=== PATIENT | male | born 1945 | race Caucasian/White ===

== ENCOUNTER → 2020-05-09 09:46 | Outpatient (BNVA) | payer OTHER, SELFPAY | PROVIDERS: PCP Internal Medicine; Referring Provider Internal Medicine; Visit Provider Nurse Practitioner | DX: Z01.818 Encounter for other preprocedural examination (principal); D64.9 Anemia, unspecified | CPT/HCPCS: 99203 ==

== ENCOUNTER 2020-06-24 11:35 | Day surgery (SDC) | payer OTHER, SELFPAY ==
[2020-06-18 21:19] VITALS: BMI 29.2
--- NOTE | 2020-06-21 08:55 | HO.ANESPROP2 ---
Documented by User: Dee Dee Ro 06/21/20 08:57 HPI - Anesthesia Eval Consult details Narrative: 75yo M for Upper Endoscopy and Colonoscopy [facility] Past Medical History Medical History (Updated 06/24/20 @ 12:03 by Lisa Brown) BPH (benign prostatic hyperplasia) Diabetes Erectile dysfunction Hypercholesteremia Hypertension Family History Family History Father Diabetes Mother Diabetes Surgical History Surgical History History of bilateral knee replacement History of prostate surgery Hx of colonoscopy (~2009) Social History Social History Alcohol intake: current Alcohol intake frequency: does not drink Smoking Status: Never smoker Use of substances other than those prescribed or required for medical reasons: No Advance Directives: No Advance Directives Information Provided: No Advance Directives on File: No Meds Allergies Allergy/AdvReac Type Severity Reaction Status Date / Time No Known Allergies Allergy Verified 05/09/20 09:49 [No Known Allergies*] Home Medications Medication Instructions Recorded Confirmed Type amlodipine 2.5 mg tablet 2.5 mg PO DAILY 05/08/20 06/18/20 History aspirin 81 mg tablet,delayed 81 mg PO DAILY 05/08/20 06/18/20 History release atorvastatin 10 mg tablet 10 mg PO DAILY 05/08/20 06/18/20 History glipizide 5 mg tablet 2.5 mg PO DAILY 05/08/20 06/18/20 History irbesartan 150 mg tablet 150 mg PO DAILY 05/08/20 06/18/20 History metformin 500 mg tablet 500 mg PO BID 05/08/20 06/18/20 History tamsulosin 0.4 mg capsule 0.4 mg PO BEDTIME 05/08/20 05/08/20 History Exam Exam Date and Time: June 21, 2020 0855 Height,Weight and Vital Signs: Height 5 ft 4 in Weight 77.111 kg Assessment and Plan Assessment Anesthesia Assessment: Chart Reviewed Documented by User: Lisa Brown 06/24/20 12:04 [facility] Past Medical History Medical History (Updated 06/24/20 @ 12:03 by Lisa Brown) BPH (benign prostatic hyperplasia) Diabetes Erectile dysfunction Hypercholesteremia Hypertension Family History Family History Father Diabetes Mother Diabetes Surgical History Surgical History History of bilateral knee replacement History of prostate surgery Hx of colonoscopy (~2009) Social History Social History Alcohol intake: current Alcohol intake frequency: does not drink Smoking Status: Never smoker Use of substances other than those prescribed or required for medical reasons: No Advance Directives: No Advance Directives Information Provided: No Advance Directives on File: No Meds Allergies Allergy/AdvReac Type Severity Reaction Status Date / Time No Known Allergies Allergy Verified 05/09/20 09:49 [No Known Allergies*] Home Medications Medication Instructions Recorded Confirmed Type amlodipine 2.5 mg tablet 2.5 mg PO DAILY 05/08/20 06/18/20 History aspirin 81 mg tablet,delayed 81 mg PO DAILY 05/08/20 06/18/20 History release atorvastatin 10 mg tablet 10 mg PO DAILY 05/08/20 06/18/20 History glipizide 5 mg tablet 2.5 mg PO DAILY 05/08/20 06/18/20 History irbesartan 150 mg tablet 150 mg PO DAILY 05/08/20 06/18/20 History metformin 500 mg tablet 500 mg PO BID 05/08/20 06/18/20 History tamsulosin 0.4 mg capsule 0.4 mg PO BEDTIME 05/08/20 05/08/20 History Exam Height,Weight and Vital Signs: Vital Signs Temp Pulse Resp BP Pulse Ox 06/24/20 11:41 98.4 F 75 18 175/67 H 97 Lab Results 06/24/20 Range/Units 11:41 POC Glucose 98 (60-115) mg/dL Airway Mallampati Class: III TM Dist: >3cm Neck ROM: Full Heart: RRR Lungs: CTAB Assessment and Plan Assessment Anesthesia Assessment: Anesthesia Plan Discussed and Chart Reviewed Final Anesthetic Review NPO: Yes ASA Class: II Final Preanesthetic Review: No Changes in Pt Med Stat, Meds/Allgs Chart Reviewed and Consent Obtained/Reviewed Patient Risk: Low Procedure Risk: Low Anesthetic Plan Anesthetic Plan: MAC: Disposition: Standard PACU
[2020-06-24 11:41] VITALS: BP 175/67; PULSE 75; RESP 18; TEMP 36.9; O2SAT 97
[2020-06-24 11:49] LABS: Glucose, Whole Blood 98 mg/dL (60-115)
--- NOTE | 2020-06-24 12:04 | P.HPSUR_ITS ---
Pre-Procedural Eval Section A The patient is an INPATIENT: No The History & Physical has been completed within 30 days and I have reviewed it.: No Section B Chief Complaint: screening,anemia Relevant Family History (Specify if Yes): No Present Medications: see Short Stay Collaborative assessment Medical History: Significant History (NIDDM High cholesterol Hypertension History of hyponatremia Anemia BPH Erectile dysfunction * ) History of Previous Operations: Relevant previous surgery/procedure and date(s) (SURGICAL HISTORY and Prostate surgery Bilateral total knee replacements) Allergies: Allergies Allergy/AdvReac Type Severity Reaction Status Date / Time No Known Allergies Allergy Verified 05/09/20 09:49 [No Known Allergies*] Review of Systems Sugical H&P ROS: Negative: Constitution, Cardiovascular, Respiratory and G astrointestinal Exam Surgical H&P Exam: Normal: Heart, Normal: Lungs, Normal: Extremities and Normal: Abdomen Plan Diagnosis/Plan: Unchanged Patient has been examined and remains a candidate for the planned procedure
--- NOTE | 2020-06-24 12:04 | W.PM.OPN ---
Operative Note Operative Note Date of Service: 06/24/20 Narrative: Pre-op diagnosis: Iron def anemia Post-op diagnosis: other (Gastritis, diverticulosis, internal hemorrhoids) Procedure: FLEXIBLE TRANSORAL UPPER GASTROINTESTINAL ENDOSCOPY WITH BIOPSIES AND COLONOSCOPY TILL CECUM UPPER ENDOSCOPY Consent: Indications for the procedure and potential complications of bleeding, perforation, reaction to medications and missed diagnosis were discussed with the patient and informed consent was obtained. Instrument: Olympus GIF H 190 mid size upper endoscope Monitoring: Vital signs and clinical assessment, continuous EKG monitoring, Pulse oximetry, Carbon Dioxide monitoring and blood pressure monitoring were done throughout the procedure. Procedure: The patient was placed in the left lateral decubitis position and pre-procedure medications were administered and a bite block was placed. The endoscope was inserted into the mouth and advanced under direct vision to the third part of duodenum. A careful inspection was made as the upper endoscope was withdrawn including a retroflexed examination of the proximal stomach; Findings and interventions are described below. Findings: Larynx: Normal Esophagus: Mildly tortuous esophagus with increased tertiary contractions without stricture or ring. GE junction at 40 cms. No esophagitis or Lazaro's. Stomach: Moderate diffuse gastric erythema with submucosal hemorrhages. Biopsies were obtained from the gastric body and antrum. Decreased fundal folds and grade 3 flap valve on retroflexed examination of the cardia. Duodenum: Normal bulb and descending duodenum. Biopsies were obtained from 3rd part of duodenum to check for celiac sprue. Intervention: Biopsies as noted above COLONOSCOPY PROCEDURE NOTE Consent: Indications for the procedure and potential complications of bleeding, perforation, reaction to medications and missed diagnosis were discussed with the patient and informed consent was obtained. Instrument: Olympus PCF H 190 L variable stiffness pediatric colonoscope Monitoring: Vital signs and clinical assessment, intermittent blood pressure monitoring, continuous EKG monitoring, Pulse oximetry and Carbon Dioxide monitoring were done throughout the procedure. Colon withdrawl time was 19 minutes. Procedure: The patient was placed in the left lateral decubitis position and pre-procedure medications were administered. After a digital rectal examination of the ano-rectum, the video colonoscope was inserted into the rectum and advanced through the colon to the cecum. The colonoscope was slowly withdrawn in a retrograde panoramic fashion and the colon mucosa was carefully examined including a retroflexed view of the rectum. Findings and interventions are described below. Procedure Difficulty: Without difficulty Findings: Terminal Ileum: Distal 10 cms was examined and appeared normal Cecum: Normal Ascending Colon: Scattered moderate diverticulosis Transverse Colon: Scattered moderate diverticulosis Descending Colon: Scattered moderate diverticulosis Sigmoid Colon: Moderate diverticulosis Rectum: Normal Ano-rectum: Moderate internal hemorrhoids Colon preparation: Excellent Impression and Post Procedure Diagnosis: Endoscopy Findings: STOMACH: Moderate diffuse gastric erythema with submucosal hemorrhages. Biopsies were obtained from the gastric body and antrum. Decreased fundal folds and grade 3 flap valve on retroflexed examination of the cardia. DUODENUM: Normal - biopsied to check for celiac sprue. Colonoscopy Findings: No polyps were detected Moderate diverticulosis seen in the entire colon Moderate hemorrhoids on retroflexed exam. Enlarged scrotum noted during rectal examination - ? due to Hydrocele. Plan: Await pathology results Patient has an appointment on 07/08/20 in the [facility] with Ileana Echeverria NP . Repeat Colonoscopy in 10 years if patient remains in stable health. 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 Small bowel, B. Gastric antrum, C. Gastric body) Condition: stable Disposition: PACU
[2020-06-24] MEDS: Lactated Ringers 1,000 ML 100 ML IVCONT (12:05)
[2020-06-24 13:06] VITALS: BP 97/44; PULSE 100; RESP 18; TEMP 36.4; O2SAT 99
[2020-06-24 13:21] VITALS: BP 115/58; PULSE 95; RESP 23; O2SAT 100
[2020-06-24 13:36] VITALS: BP 129/74; PULSE 76; RESP 16; TEMP 36.4; O2SAT 98
== END 2020-06-24 14:27 | disposition home or self-care (01) ==
PROVIDERS: PCP Internal Medicine; Visit Provider Internal Medicine Gastroenterology
PROC: (CPT 43239; principal; 2020-06-24 11:40)
DX: Z12.11 Encounter for screening for malignant neoplasm of colon (principal); K57.30 Diverticulosis of large intestine without perforation or abscess without bleeding; K64.8 Other hemorrhoids; K29.70 Gastritis, unspecified, without bleeding; B96.81 Helicobacter pylori [H. pylori] as the cause of diseases classified elsewhere; D50.9 Iron deficiency anemia, unspecified; E11.9 Type 2 diabetes mellitus without complications; Z79.84 Long term (current) use of oral hypoglycemic drugs
CPT/HCPCS: 43239; G0121; 82947; 88305; 88342

== ENCOUNTER 2020-07-01 07:36 | Day surgery (SDC) | payer OTHER, SELFPAY ==
--- NOTE | 2020-06-24 14:08 | HO.POSTANES ---
Post Anesthesia Evaluation Post Anesthesia Evaluation Anesthesia: Monitored Mental Status: Awake Pain Control: Satisfactory Nausea/Vomiting: None Hydration: Adequate Anesthesia-Related Issues: No Anes. Related Issues
[2020-06-25 12:10] VITALS: BMI 29.1
--- NOTE | 2020-06-27 08:08 | MHC.SHP ---
Pre-Procedural Eval Section A The patient is an INPATIENT: No The History & Physical has been completed within 30 days and I have reviewed it.: Yes Section B Chief Complaint: Cataracts Left Eye Allergies: Allergies Allergy/AdvReac Type Severity Reaction Status Date / Time No Known Allergies Allergy Verified 06/24/20 15:54 [No Known Allergies*] Plan Diagnosis/Plan: Unchanged Patient has been examined and remains a candidate for the planned procedure
--- NOTE | 2020-06-28 13:30 | HO.ANESPROP2 ---
Documented by User: Dee Dee Ro 06/28/20 13:32 HPI - Anesthesia Eval Consult details Narrative: 75yo M for Cataract Extraction PCP cleared No previous cataract PMFSH Past Medical History Medical History BPH (benign prostatic hyperplasia) Cataract Diabetes Erectile dysfunction Hypercholesteremia Hypertension Family History Family History Father Diabetes Mother Diabetes Surgical History Surgical History History of bilateral knee replacement History of prostate surgery Hx of colonoscopy Social History Social History Are you a primary primary care pediatrician to a significant other at home: No Do you presently have visiting nurse or other home services: No Alcohol intake: current Alcohol intake frequency: does not drink Smoking Status: Never smoker Use of substances other than those prescribed or required for medical reasons: No Have you been hit, kicked, punched, or otherwise hurt by someone within the past year? If so, by whom?: No Advance Directives: No Advance Directives Information Provided: No Advance Directives on File: No Meds Allergies Allergy/AdvReac Type Severity Reaction Status Date / Time No Known Allergies Allergy Verified 06/24/20 15:54 [No Known Allergies*] Home Medications Medication Instructions Recorded Confirmed Type amlodipine 2.5 mg tablet 2.5 mg PO DAILY 05/08/20 07/01/20 History aspirin 81 mg tablet,delayed 81 mg PO DAILY 05/08/20 06/24/20 History release atorvastatin 10 mg tablet 10 mg PO DAILY 05/08/20 07/01/20 History glipizide 5 mg tablet 2.5 mg PO DAILY 05/08/20 06/24/20 History irbesartan 150 mg tablet 150 mg PO DAILY 05/08/20 06/24/20 History metformin 500 mg tablet 500 mg PO BID 05/08/20 06/24/20 History tamsulosin 0.4 mg capsule 0.4 mg PO BEDTIME 05/08/20 06/24/20 History Exam Exam Date and Time: June 28, 2020 1330 Height,Weight and Vital Signs: Height 5 ft 4 in Weight 77 kg Narrative Narrative: EKG 06/26/20: SR, RBBB Assessment and Plan Assessment Anesthesia Assessment: Chart Reviewed Documented by User: Faviola Sales 07/01/20 08:20 PMFSH Past Medical History Medical History BPH (benign prostatic hyperplasia) Cataract Diabetes Erectile dysfunction Hypercholesteremia Hypertension Family History Family History Father Diabetes Mother Diabetes Surgical History Surgical History History of bilateral knee replacement History of prostate surgery Hx of colonoscopy Social History Social History Are you a primary primary care pediatrician to a significant other at home: No Do you presently have visiting nurse or other home services: No Alcohol intake: current Alcohol intake frequency: does not drink Smoking Status: Never smoker Use of substances other than those prescribed or required for medical reasons: No Have you been hit, kicked, punched, or otherwise hurt by someone within the past year? If so, by whom?: No Advance Directives: No Advance Directives Information Provided: No Advance Directives on File: No Meds Allergies Allergy/AdvReac Type Severity Reaction Status Date / Time No Known Allergies Allergy Verified 06/24/20 15:54 [No Known Allergies*] Home Medications Medication Instructions Recorded Confirmed Type amlodipine 2.5 mg tablet 2.5 mg PO DAILY 05/08/20 07/01/20 History aspirin 81 mg tablet,delayed 81 mg PO DAILY 05/08/20 06/24/20 History release atorvastatin 10 mg tablet 10 mg PO DAILY 05/08/20 07/01/20 History glipizide 5 mg tablet 2.5 mg PO DAILY 05/08/20 06/24/20 History irbesartan 150 mg tablet 150 mg PO DAILY 05/08/20 06/24/20 History metformin 500 mg tablet 500 mg PO BID 05/08/20 06/24/20 History tamsulosin 0.4 mg capsule 0.4 mg PO BEDTIME 05/08/20 06/24/20 History Exam Airway Mallampati Class: II TM Dist: >3cm Neck ROM: Full Loose/Missing/Broken Teeth: No Heart: RRR Lungs: CTA Assessment and Plan Assessment Anesthesia Assessment: Anesthesia Plan Discussed and Chart Reviewed Final Anesthetic Review NPO: Yes ASA Class: III Final Preanesthetic Review: Meds/Allgs Chart Reviewed, Consent Obtained/Reviewed and Anes Risks/Benef Reviewed Patient Risk: Intermediate Procedure Risk: Low Anesthetic Plan Anesthetic Plan: MAC: Disposition: Standard PACU
[2020-07-01 07:49] VITALS: BP 155/68; PULSE 74; RESP 16; TEMP 37.2; O2SAT 100
[2020-07-01 07:51] LABS: Glucose, Whole Blood 151 mg/dL (60-115)
[2020-07-01] MEDS: Tetracaine HCl/PF 0.5% Oph Sol 4 ML DROPS 1 DROP EYE-LEFT (08:06)
[2020-07-01] MEDS: Tropicamide 1 % Ophth Sol 3 ML BTL 1 DROP EYE-LEFT ×3 (08:08→08:16)
[2020-07-01] MEDS: Phenylephrine HCL 2.5% Oph SoL 2 ML BOTTLE 1 DROP EYE-LEFT ×3 (08:10→08:18)
[2020-07-01] MEDS: Lactated Ringers 500 ML 50 ML IV (08:11)
[2020-07-01 09:10] VITALS: BP 122/69; PULSE 64; RESP 16; TEMP 36.7; O2SAT 99
--- NOTE | 2020-07-01 09:10 | HO.PNOPHT ---
Ophthalmology Procedure Procedure Date of Service: 07/01/20 Ophthalmology Viscoelastic: Healon Duet Dual Pack Pro Ophthalmology Lenses: TECNIS [id number] (20.5) Procedure Notes: PREOPERATIVE DIAGNOSIS: Decreased visual acuity left eye secondary to cataract POSTOPERATIVE DIAGNOSIS: Same PROCEDURE: Left cataract extraction with intraocular lens insertion SURGEON: Tylor Morales M.D. ANESTHESIA: Topical/MAC ESTIMATED BLOOD LOSS: None COMPLICATIONS: None After obtaining informed consent, the patient was brought to the operation room suite and placed in the supine position. After adequate sedation per anesthesia, topical drops of Tetracaine were given to the left eye. The eye was then prepped and draped in the usual sterile fashion. The operating room microscope was then positioned over the operative eye and a lid speculum placed. A paracentesis was created. Viscoelastic was then instilled into the anterior chamber. A three plane incision was then created temporally, utilizing a 2.85 mm keratome. Capsulotomy forceps were then utilized to create a circular tear capsulotomy. Hydrodissection and hydrodelineation were carried out until adequate mobilization of the nucleus occurred. Phacoemulsification was then utilized to remove the dense central nucleus followed by removal of the cortical material utilizing the automated aspiration irrigation unit. Viscoat elastic was instilled into the posterior capsular bag followed by placement of a posterior chamber intraocular lens without difficulty. The residual Viscoat elastic was then removed utilizing the automated IA machine. The wound was check and found to be watertight. The patient tolerated the procedure well and the lid speculum was removed. Intracameral injection of Vigamox 0.1 mL followed by a subtenon injection of Kenalog-40 0.2 mL were administered. The patient will be seen in the a.m.
--- NOTE | 2020-07-01 09:14 | HO.POSTANES ---
Post Anesthesia Evaluation Post Anesthesia Evaluation Vital Signs: Vital Signs Temp Pulse Resp BP Pulse Ox 07/01/20 07:49 98.9 F 74 16 155/68 H 100 Mental Status: Awake Pain Control: Satisfactory Nausea/Vomiting: None Hydration: Adequate Anesthesia-Related Issues: No Anes. Related Issues
== END 2020-07-01 09:27 | disposition home or self-care (01) ==
PROVIDERS: PCP Internal Medicine; Visit Provider Ophthalmology
PROC: (CPT 66985; principal; 2020-07-01 08:50)
DX: H25.12 Age-related nuclear cataract, left eye (principal); H52.4 Presbyopia; H40.013 Open angle with borderline findings, low risk, bilateral; I10 Essential (primary) hypertension; E78.00 Pure hypercholesterolemia, unspecified; E11.9 Type 2 diabetes mellitus without complications; Z79.84 Long term (current) use of oral hypoglycemic drugs; Z79.82 Long term (current) use of aspirin; Z79.899 Other long term (current) drug therapy; Z96.653 Presence of artificial knee joint, bilateral
CPT/HCPCS: 66984; 82947; J2250; J3010; J3300; V2632

== ENCOUNTER → 2020-08-12 10:56 | Outpatient (BNVA) | payer OTHER, SELFPAY | PROVIDERS: PCP Internal Medicine; Visit Provider Urology | DX: N50.89 Other specified disorders of the male genital organs (principal) | CPT/HCPCS: 99202 ==

== ENCOUNTER 2020-09-18 13:39 | Outpatient (REF) | payer OTHER, SELFPAY ==
--- NOTE | ~2020-09-18 | US_ITS ---
EXAMINATION: US SCROTUM CLINICAL INFORMATION: Hydrocele. COMPARISON: None TECHNIQUE: A sonogram of the scrotum was performed assessing moralez-scale appearance and color Doppler flow. Spectral Doppler analysis of the arterial and venous flow were performed in the testes bilaterally. FINDINGS: RIGHT: Right testicle measures 4.2 x 2.3 x 2.3 cm, volume 13.7 mL. No focal testicular parenchymal lesions are visualized. Spectral Doppler analysis of the arterial and venous flow is normal in the right testis. Right epididymal head is normal in size. There are several epididymal head cysts. The largest cyst measures 0.6 x 0.5 x 0.7 cm. No right hydrocele or varicocele is seen. Right epididymal Doppler flow is normal. LEFT: Left testicle measures 3.9 x 2.4 x 4.0 cm, volume 19.9 mL. There is an anechoic cyst in the left epididymis measuring 0.4 x 0.4 x 0.5 cm. Spectral Doppler analysis of the arterial and venous flow is normal in the left testis. Left epididymis is not well visualized. However, small epididymal cysts are suspected. There is a large left hydrocele with echogenic debris within. No varicocele seen. Left epididymal Doppler flow is normal. US/US scrotum IMPRESSION: Large left hydrocele with a small left scrotal cyst. Suspect small left epididymal cysts. Right epididymal cysts.
== END 2020-09-18 13:40 | disposition home or self-care (01) ==
LOC: HO.US 13:39
PROVIDERS: PCP Internal Medicine; Visit Provider Urology
DX: N43.3 Hydrocele, unspecified (principal)
CPT/HCPCS: 76870

== ENCOUNTER → 2020-10-04 13:40 | Outpatient (BNVA) | payer OTHER, SELFPAY | PROVIDERS: PCP Internal Medicine; Visit Provider Urology | DX: Z13.89 Encounter for screening for other disorder (principal) | CPT/HCPCS: 99212 ==

== ENCOUNTER 2021-01-22 16:34 | Emergency (ER) | payer OTHER, SELFPAY ==
[2021-01-22 17:17] VITALS: BP 137/75; PULSE 96; RESP 16; TEMP 36.4; O2SAT 99; BMI 25.7
--- NOTE | 2021-01-22 18:14 | ED.GENADULT ---
HPI - General Adult General Chief complaint: Nausea/Vomiting/Diarrhea Stated complaint: diarhea Time Seen by Provider: 01/22/21 17:58 Source: patient Limitations: no limitations History of Present Illness HPI narrative: This is a 75-year-old male with a history of hypertension, diabetes, enlarged prostate status post prostate procedure, who complains of diarrhea for a few weeks. The patient had had a colonoscopy several weeks ago which showed some infection, and the patient was on antibiotics for 2 weeks. Subsequently, for the last 2 weeks he has had watery diarrhea that is worse after he eats or drinks. He denies any dizziness, fever, cold symptoms, cough, shortness of breath, abdominal pain. He notes he does urinary frequently. Denies any blood in the stool. He has an appointment to see his PCP in 2 days but felt like he could not wait. He also is requesting referral to a operational trainer. Related Data Home Medications Medication Instructions Recorded Confirmed amlodipine 2.5 mg tablet 2.5 mg PO DAILY 05/08/20 08/12/20 aspirin 81 mg tablet,delayed 81 mg PO DAILY 05/08/20 08/12/20 release atorvastatin 10 mg tablet 10 mg PO DAILY 05/08/20 08/12/20 glipizide 5 mg tablet 2.5 mg PO DAILY 05/08/20 08/12/20 irbesartan 150 mg tablet 150 mg PO DAILY 05/08/20 08/12/20 metformin 500 mg tablet 500 mg PO BID 05/08/20 08/12/20 tamsulosin 0.4 mg capsule 0.4 mg PO BEDTIME 05/08/20 08/12/20 aspirin 81 mg chewable tablet 1 tab PO DAILY 10/04/20 blood sugar diagnostic #10 ea 10/04/20 cholecalciferol (vitamin D3) 50 50 mcg PO DAILY 10/04/20 mcg (2,000 unit) capsule dapagliflozin 5 mg tablet 5 mg PO QAM 10/04/20 ferrous sulfate 325 mg (65 mg 325 mg PO QAM 10/04/20 iron) tablet lancets 33 gauge #100 ea 10/04/20 metformin 1,000 mg tablet 1,000 mg PO BID 10/04/20 multivitamin 1 tab PO BEDTIME 10/04/20 Previous Rx's Medication Instructions Recorded aly #1 ea 04/30/20 bismuth subsalicylate 262 mg 2 tab PO QID 14 Days #112 tab 07/01/20 chewable tablet metronidazole 500 mg tablet 500 mg PO TID 14 Days #42 tab 07/01/20 omeprazole 20 mg capsule,delayed 20 mg PO BID 14 Days #28 cap 07/01/20 release tetracycline 500 mg capsule 500 mg PO QID 14 Days #56 cap 07/01/20 tamsulosin 0.4 mg capsule 0.4 mg PO BEDTIME 30 Days #30 cap 11/11/20 sildenafil 100 mg tablet 100 mg PO DAILY PRN 30 Days #6 tab 01/14/21 Allergies Allergy/AdvReac Type Severity Reaction Status Date / Time No Known Allergies Allergy Verified 01/22/21 17:25 [No Known Allergies*] Review of Systems Review of Systems: Yes all other systems are reviewed and are negative Constitutional: Constitutional: Reports as per HPI and Denies fever(s) Eyes: Eyes: Reports as per HPI and Reports no additional eye complaints ENT: Reports system reviewed and no additional complaints, except as documented, Reports as per HPI, Denies nasal congestion, Denies nasal discharge and Denies sore throat Cardiovascular: Cardiovascular: Reports as per HPI, Denies chest pain and Denies dyspnea Respiratory: Respiratory: Reports as per HPI, Denies cough and Denies dyspnea Gastrointestinal: Gastrointestinal: Reports as per HPI, Denies abdominal pain, Reports diarrhea, Denies nausea and Denies vomiting Genitourinary: Genitourinary: Reports as per HPI, Denies hematuria, Denies dysuria and Denies urinary frequency Musculoskeletal: Musculoskeletal: Reports no additional musculoskeletal complaints and Denies numbness Integumentary/Breasts: Skin/Breast: Reports as per HPI and Denies rash Neurologic: Reports as per HPI, Denies focal weakness, Denies numbness and Denies Sensory deficit (Neuro) Psychiatric: Psychiatric: Reports no additional psychiatric complaints and Reports as per HPI Endocrine: Endocrine: Reports no additional endocrine complaints and Reports as per HPI Hematologic/Lymphatic: Hematologic/Lymphatic: Reports no additional hematologic/lymphatic complaints, Reports as per HPI and Reports other (No peripheral edema) [facility] Past Medical History Medical History BPH (benign prostatic hyperplasia) Cataract Diabetes Erectile dysfunction Hydrocele Hypercholesteremia Hypertension Surgical History History of bilateral knee replacement History of prostate surgery Hx of colonoscopy Family History Family History Father Diabetes Mother Diabetes Social History Social History Are you a primary client care consultant to a significant other at home: No Do you presently have visiting nurse or other home services: No Alcohol intake: current Alcohol intake frequency: does not drink Advance Directives: No Advance Directives Information Provided: No Physical Exam Vital Signs: Vital Signs: Last Vital Signs Temp 97.7 F 01/22/21 18:49 Pulse 94 01/22/21 21:54 Resp 16 01/22/21 21:54 BP 143/72 H 01/22/21 21:54 Pulse Ox 98 01/22/21 21:54 Body Mass Index 25.7 Const: Other: patient overall well appearing, stands easily and gets onto the gurney without apparent discomfort or difficulty General: cooperative, no acute distress and alert Orientation/consciousness: patient oriented x3 HENMT: Head: Yes normal to inspection Eyes: General: appearance normal, both eyes and all related structures Eyelids: Yes eyelids normal Conjunctivae: conjunctivae normal Pupils: Equal, round and reactive pupils present Neck: Neck: Yes normal visual inspection and Yes supple Chest: Chest palpation & inspection: normal inspection of the chest Resp: Effort & Inspection: normal respiratory effort Auscultation: clear to auscultation bilaterally Cardio: Rate: regular rate Rhythm: regular rhythm Heart sounds: S1 normal heart sound present, S2 normal heart sound present, no gallops, no murmurs and no rubs GI: Palpation (GI): Soft to palpation, nontender and Other GI palpation findings present (Non-distended) Auscultation: bowels sounds not normal ( Mildly hyperactive, not high-pitched) Skin: General skin exam: no rashes or lesions noted Neuro: General: patient oriented x3, no focal motor deficits and CN's II-XI intact bilaterally Cranial nerves: Yes Equal, round and reactive pupils present Cognition (Neuro): normal cognition Motor exam (neuro): 5/5 motor strength present throughout Sensory Exam: No Sensory deficit (Neuro) Extrem: General: Yes normal to inspection and Yes no pedal edema Psych: Appearance: grossly normal Affect: normal affect Medical Decision Making MDM Narrative Medical decision making narrative: Patient with diarrhea for several days, was on antibiotics fairly recently, C difficile is a concern. Is still simple was sent for C diff. Patient's white blood cell count is mildly elevated. BUN and creatinine electrolytes were essentially normal. The patient does have mild hyponatremia but has had this previously. Patient was well appearing, not all ill-appearing. Patient reported history of prostate surgery and urinary frequency, urinalysis was negative Lab Data Lab results reviewed: Yes I reviewed the patient's lab results. Result diagrams: 01/22/21 18:17 01/22/21 18:17 Labs: Lab Results 01/22/21 01/22/21 01/22/21 Range/Units 18:17 18:17 19:05 WBC 12.7 H (4.8-10.8) X10*3/uL RBC 4.43 L (4.60-5.80) X10*6/uL Hgb 12.8 L (14.0-18.0) g/dl Hct 36.9 L (42-52) % MCV 83.3 (80-98) fL MCH 28.9 (27.0-33.0) pg MCHC 34.7 (31.0-36.0) g/dl RDW 13.6 (11.0-16.0) % Plt Count 468 H (160-400) X10*3/uL MPV 8.4 L (9.4-12.4) fL Immature Gran % (Auto) 2.0 H (0.0-0.4) % Neut % (Auto) 73.8 H (45-73) % Lymph % (Auto) 14.5 L (20-40) % [place] % (Auto) 7.3 (2-11) % Eos % (Auto) 1.9 (0-4) % Baso % (Auto) 0.5 (0-2) % Lymph # (Auto) 1.8 (1.2-4.9) X10*3/uL [place] # (Auto) 0.9 (0.1-1.2) X10*3/uL Eos # (Auto) 0.2 (0.0-0.4) X10*3/uL Baso # (Auto) 0.1 (0.0-0.2) X10*3/uL Abs Immat Gran (auto) 0.25 H (0.00-0.03) X10*3/uL Absolute Neuts (auto) 9.4 H (2.0-8.3) X10*3/uL Absolute Nucleated RBC 0.000 (0.0-0.012) X10*3/uL Nucleated RBC % (auto) 0.0 (0.0-0.2) /100WBC Sodium 130 L (135-145) mmol/L Potassium 4.7 (3.3-5.1) mmol/L Chloride 95 L (96-108) mmol/L Carbon Dioxide 21 L (22-29) mmol/L Anion Gap 19 (12-20) BUN 15 (9-16) mg/dL Creatinine 0.80 (0.5-1.4) mg/dL Estim Creat Clear Calc 65.1 Estimated GFR > 60 Random Glucose 127 H (60-115) mg/dL Calcium 9.6 (8.4-10.2) mg/dL Total Bilirubin 0.7 (0.0-1.0) mg/dL AST 40 H (5-37) U/L ALT 35 (0-40) U/L Alkaline Phosphatase 92 (39-117) U/L Total Protein 7.7 (6.5-8.0) g/dL Albumin 4.0 (3.5-5.0) g/dL Urine Color YELLOW Urine Appearance CLEAR Urine pH 6.0 (5.0-8.0) Ur Specific [place] <= 1.005 (1.005-1.025) Urine Protein NEG (NEG-TRACE) MG/DL Urine Glucose (UA) >=1000 H (NEG) MG/DL Urine Ketones NEG (NEG) MG/DL Urine Blood 1+ H (NEG) Urine Nitrite NEG (NEG) Ur Leukocyte Esterase NEG (NEG) Urine RBC 1-4 (0) /HPF Urine WBC 1-4 (0-4) /HPF Ur Squamous Epith Cells TRACE /LPF Urine Bacteria NONE /LPF Urine Yeast TRACE /HPF C. difficile Tox B Gene (Negative) 01/22/21 01/22/21 Range/Units 19:49 22:00 WBC (4.8-10.8) X10*3/uL RBC (4.60-5.80) X10*6/uL Hgb (14.0-18.0) g/dl Hct (42-52) % MCV (80-98) fL MCH (27.0-33.0) pg MCHC (31.0-36.0) g/dl RDW (11.0-16.0) % Plt Count (160-400) X10*3/uL MPV (9.4-12.4) fL Immature Gran % (Auto) (0.0-0.4) % Neut % (Auto) (45-73) % Lymph % (Auto) (20-40) % [place] % (Auto) (2-11) % Eos % (Auto) (0-4) % Baso % (Auto) (0-2) % Lymph # (Auto) (1.2-4.9) X10*3/uL [place] # (Auto) (0.1-1.2) X10*3/uL Eos # (Auto) (0.0-0.4) X10*3/uL Baso # (Auto) (0.0-0.2) X10*3/uL Abs Immat Gran (auto) (0.00-0.03) X10*3/uL Absolute Neuts (auto) (2.0-8.3) X10*3/uL Absolute Nucleated RBC (0.0-0.012) X10*3/uL Nucleated RBC % (auto) (0.0-0.2) /100WBC Sodium (135-145) mmol/L Potassium (3.3-5.1) mmol/L Chloride (96-108) mmol/L Carbon Dioxide (22-29) mmol/L Anion Gap (12-20) BUN (9-16) mg/dL Creatinine (0.5-1.4) mg/dL Estim Creat Clear Calc Estimated GFR Random Glucose (60-115) mg/dL Calcium (8.4-10.2) mg/dL Total Bilirubin (0.0-1.0) mg/dL AST (5-37) U/L ALT (0-40) U/L Alkaline Phosphatase (39-117) U/L Total Protein (6.5-8.0) g/dL Albumin (3.5-5.0) g/dL Urine Color YELLOW Urine Appearance CLEAR Urine pH 5.5 (5.0-8.0) Ur Specific [place] <= 1.005 (1.005-1.025) Urine Protein NEG (NEG-TRACE) MG/DL Urine Glucose (UA) >=1000 H (NEG) MG/DL Urine Ketones NEG (NEG) MG/DL Urine Blood TRACE (NEG) Urine Nitrite NEG (NEG) Ur Leukocyte Esterase NEG (NEG) Urine RBC 1-4 (0) /HPF Urine WBC 1-4 (0-4) /HPF Ur Squamous Epith Cells 2+ /LPF Urine Bacteria NONE /LPF Urine Yeast 1+ /HPF C. difficile Tox B Gene NEGATIVE (Negative) Discharge Plan Discharge Clinical Impression: Diarrhea Patient Disposition: Home, Self-Care Instructions: Acute Diarrhea (ED) Additional Instructions: drink plenty of fluids, including fluids such as Gatorade, as you have been. Follow-up with primary care physician as scheduled in 2 days. We will not evaluate if your stool test is positive and may start you on antibiotics. Return for any new or worsened symptoms such as fever, increased abdominal pain, bloody stool Prescriptions: No Action (DME) walker Misc See Rx Instructions .ROUTE .MEDSUPPLY Qty: 1 RF: 0 omeprazole 20 mg capsule,delayed release(DR/EC) 20 mg PO BID 14 Days Qty: 28 RF: 0 bismuth subsalicylate 262 mg tablet,chewable 2 tab PO QID 14 Days Qty: 112 RF: 0 tetracycline 500 mg capsule 500 mg PO QID 14 Days Qty: 56 RF: 0 metronidazole 500 mg tablet 500 mg PO TID 14 Days Qty: 42 RF: 0 tamsulosin 0.4 mg capsule 0.4 mg PO BEDTIME 30 Days Qty: 30 RF: 3 sildenafil [Viagra] 100 mg tablet 100 mg PO DAILY PRN (Reason: erectile dysfunction) 30 Days Qty: 6 RF: 11 amlodipine 2.5 mg tablet 2.5 mg PO DAILY RF: 0 aspirin 81 mg tablet,delayed release (DR/EC) 81 mg PO DAILY RF: 0 atorvastatin 10 mg tablet 10 mg PO DAILY RF: 0 glipizide 5 mg tablet 2.5 mg PO DAILY RF: 0 irbesartan 150 mg tablet 150 mg PO DAILY RF: 0 metformin 500 mg tablet 500 mg PO BID RF: 0 tamsulosin [Flomax] 0.4 mg capsule 0.4 mg PO BEDTIME RF: 0 Interventions: ED Discharge Assessment Last Done: 01/22/21 22:03 Discharge Date/Time: 01/22/21 22:03
[2021-01-22] MEDS: 0.9 % Sodium Chloride 500 ML 999 ML IV (18:19)
[2021-01-22 18:25] LABS: MANUAL DIFF FLAG NO
[2021-01-22 18:27] LABS: Basophils Absolute Auto 0.1 X10*3/uL (0.0-0.2); Basophils Percent Auto 0.5 % (0-2); Eosinophils Absolute Auto 0.2 X10*3/uL (0.0-0.4); Eosinophils Percent Auto 1.9 % (0-4); Hematocrit 36.9 % (42-52); Hemoglobin 12.8 g/dl (14.0-18.0); Imm Gran Abs Auto 0.25 X10*3/uL (0.00-0.03); Lymphocytes Absolute Auto 1.8 X10*3/uL (1.2-4.9); Lymphocytes Percent Auto 14.5 % (20-40); Mean Corpuscular HGB Conc 34.7 g/dl (31.0-36.0); Mean Corpuscular Hemoglobin 28.9 pg (27.0-33.0); Mean Corpuscular Volume 83.3 fL (80-98); Mean Platelet Volume 8.4 fL (9.4-12.4); Monocytes Absolute Auto 0.9 X10*3/uL (0.1-1.2); Monocytes Percent Auto 7.3 % (2-11); Neutrophils Absolute Auto 9.4 X10*3/uL (2.0-8.3); Neutrophils Percent Auto 73.8 % (45-73); Platelet Count 468 X10*3/uL (160-400); Red Blood Count 4.43 X10*6/uL (4.60-5.80); Red Cell Distribution Width 13.6 % (11.0-16.0); White Blood Count 12.7 X10*3/uL (4.8-10.8)
[2021-01-22 18:49] VITALS: BP 136/72; PULSE 77; RESP 18; TEMP 36.5; O2SAT 98
[2021-01-22 18:54] LABS: Alanine Aminotransferase 35 U/L (0-40); Alkaline Phosphatase 92 U/L (39-117); Anion Gap 19 (12-20); Aspartate Amino Transferase 40 U/L (5-37); Bilirubin Total 0.7 mg/dL (0.0-1.0); Blood Urea Nitrogen 15 mg/dL (9-16); Calcium 9.6 mg/dL (8.4-10.2); Carbon Dioxide 21 mmol/L (22-29); Chloride 95 mmol/L (96-108); Creatinine Clr Calc Pharmacy 65.1; Estimated Glomerular Filt Rate > 60; Glucose Random 127 mg/dL (60-115); Potassium 4.7 mmol/L (3.3-5.1); Sodium 130 mmol/L (135-145); Total Protein 7.7 g/dL (6.5-8.0)
[2021-01-22 19:10] LABS: Glucose Urine UA >=1000 MG/DL (NEG); Leukocyte Esterase Urine NEG (NEG); Nitrite Urine NEG (NEG); Specific Gravity - Urine <= 1.005 (1.005-1.025); Urine Blood 1+ (NEG); Urine Ketones NEG (NEG); Urine Protein NEG (NEG-TRACE)
[2021-01-22 19:11] LABS: Appearance Urine CLEAR; Color Urine YELLOW
[2021-01-22 19:32] LABS: Squamous Epithelial Cell Urine TRACE /LPF
[2021-01-22 21:54] VITALS: BP 143/72; PULSE 94; RESP 16; O2SAT 98
[2021-01-22 21:54] LABS: CDiff Gene PCR NEGATIVE (Negative)
[2021-01-22 22:05] LABS: Glucose Urine UA >=1000 MG/DL (NEG); Leukocyte Esterase Urine NEG (NEG); Nitrite Urine NEG (NEG); PH 5.5 (5.0-8.0); Specific Gravity - Urine <= 1.005 (1.005-1.025); Urine Blood TRACE (NEG); Urine Ketones NEG (NEG); Urine Protein NEG (NEG-TRACE)
[2021-01-22 22:09] LABS: Appearance Urine CLEAR; Color Urine YELLOW
[2021-01-22 22:13] LABS: Squamous Epithelial Cell Urine 2+ /LPF
== END 2021-01-22 22:03 | disposition home or self-care (01) ==
PROVIDERS: Emergency Provider Emergency Medicine
DX: R19.7 Diarrhea, unspecified (principal); R35.0 Frequency of micturition; D72.829 Elevated white blood cell count, unspecified; E87.1 Hypo-osmolality and hyponatremia; I10 Essential (primary) hypertension; E11.9 Type 2 diabetes mellitus without complications; Z79.84 Long term (current) use of oral hypoglycemic drugs; Z79.899 Other long term (current) drug therapy
CPT/HCPCS: 36415; 80053; 81001; 85025; 87045; 87046; 87493; 96360; 99284

== ENCOUNTER 2021-08-14 10:05 | Outpatient (REF) | payer OTHER, SELFPAY ==
--- NOTE | ~2021-08-14 | XR_ITS ---
EXAMINATION: XR SHOULDER, RIGHT XR SHOULDER, LEFT XR KNEE, RIGHT XR KNEE, LEFT XR LUMBAR SPINE CLINICAL INDICATION: Pain. COMPARISON: Comparison to previous studies dated 12/21/2019, 09/25/2019, 06/12/2020, 11/30/2017. Increasing from previous exam as well. Degenerative changes in the posterior elements from the mid lumbar region down. TECHNIQUE: Right shoulder 5 views. Left shoulder 5 views. Lumbosacral spine 3 views. Right knee 4 views. Left knee 4 views. FINDINGS: The SI joints are grossly patent. LUMBOSACRAL SPINE: Moderate to marked degenerative changes which are ongoing from 2018. BILATERAL KNEES: Some increasing dystrophic calcification about prosthesis bilaterally but there is no acute finding here. No evidence of hardware failure. RIGHT SHOULDER: Ongoing degeneration. Significant. There is significant superior riding humeral head and acromial spurring with sclerotic changes on both sides of the joint here. AC joint degeneration once again noted. Moderate to marked. Also degeneration in the glenohumeral articulation. There is no acute fracture or dislocation. LEFT SHOULDER: Degenerative changes similar to the contralateral side. Humeral head rides high with acromial spurring and irregularity at the insertion of the superior rotator cuff. Moderate degenerative change in the AC joint. There is also glenohumeral articular degeneration. XR/XR shoulder LT min 2V IMPRESSION: Multiple Studies. Bilateral Shoulder: Significant degeneration in the shoulders with ongoing degeneration on the right compared to 2018 study. Right Knee: Once again show prosthesis in place. There is increasing dystrophic calcification. There is no acute finding. Left Knee: Again show 2 part prosthesis. Some increasing dystrophic calcification. There is no acute finding. No evidence of hardware failure. Lumbosacral Spine: Moderate to marked degenerative change. Loss of disc height at multiple levels with spurring in the endplates. There is no listhesis or compression injury. Mild scoliosis.
--- NOTE | ~2021-08-14 | XR_ITS ---
EXAMINATION: XR SHOULDER, RIGHT XR SHOULDER, LEFT XR KNEE, RIGHT XR KNEE, LEFT XR LUMBAR SPINE CLINICAL INDICATION: Pain. COMPARISON: Comparison to previous studies dated 12/21/2019, 09/25/2019, 06/12/2020, 11/30/2017. Increasing from previous exam as well. Degenerative changes in the posterior elements from the mid lumbar region down. TECHNIQUE: Right shoulder 5 views. Left shoulder 5 views. Lumbosacral spine 3 views. Right knee 4 views. Left knee 4 views. FINDINGS: The SI joints are grossly patent. LUMBOSACRAL SPINE: Moderate to marked degenerative changes which are ongoing from 2018. BILATERAL KNEES: Some increasing dystrophic calcification about prosthesis bilaterally but there is no acute finding here. No evidence of hardware failure. RIGHT SHOULDER: Ongoing degeneration. Significant. There is significant superior riding humeral head and acromial spurring with sclerotic changes on both sides of the joint here. AC joint degeneration once again noted. Moderate to marked. Also degeneration in the glenohumeral articulation. There is no acute fracture or dislocation. LEFT SHOULDER: Degenerative changes similar to the contralateral side. Humeral head rides high with acromial spurring and irregularity at the insertion of the superior rotator cuff. Moderate degenerative change in the AC joint. There is also glenohumeral articular degeneration. XR/XR knee LT 4V IMPRESSION: Multiple Studies. Bilateral Shoulder: Significant degeneration in the shoulders with ongoing degeneration on the right compared to 2018 study. Right Knee: Once again show prosthesis in place. There is increasing dystrophic calcification. There is no acute finding. Left Knee: Again show 2 part prosthesis. Some increasing dystrophic calcification. There is no acute finding. No evidence of hardware failure. Lumbosacral Spine: Moderate to marked degenerative change. Loss of disc height at multiple levels with spurring in the endplates. There is no listhesis or compression injury. Mild scoliosis.
--- NOTE | ~2021-08-14 | XR_ITS ---
EXAMINATION: XR SHOULDER, RIGHT XR SHOULDER, LEFT XR KNEE, RIGHT XR KNEE, LEFT XR LUMBAR SPINE CLINICAL INDICATION: Pain. COMPARISON: Comparison to previous studies dated 12/21/2019, 09/25/2019, 06/12/2020, 11/30/2017. Increasing from previous exam as well. Degenerative changes in the posterior elements from the mid lumbar region down. TECHNIQUE: Right shoulder 5 views. Left shoulder 5 views. Lumbosacral spine 3 views. Right knee 4 views. Left knee 4 views. FINDINGS: The SI joints are grossly patent. LUMBOSACRAL SPINE: Moderate to marked degenerative changes which are ongoing from 2018. BILATERAL KNEES: Some increasing dystrophic calcification about prosthesis bilaterally but there is no acute finding here. No evidence of hardware failure. RIGHT SHOULDER: Ongoing degeneration. Significant. There is significant superior riding humeral head and acromial spurring with sclerotic changes on both sides of the joint here. AC joint degeneration once again noted. Moderate to marked. Also degeneration in the glenohumeral articulation. There is no acute fracture or dislocation. LEFT SHOULDER: Degenerative changes similar to the contralateral side. Humeral head rides high with acromial spurring and irregularity at the insertion of the superior rotator cuff. Moderate degenerative change in the AC joint. There is also glenohumeral articular degeneration. XR/XR lumbar spine 2-3V IMPRESSION: Multiple Studies. Bilateral Shoulder: Significant degeneration in the shoulders with ongoing degeneration on the right compared to 2018 study. Right Knee: Once again show prosthesis in place. There is increasing dystrophic calcification. There is no acute finding. Left Knee: Again show 2 part prosthesis. Some increasing dystrophic calcification. There is no acute finding. No evidence of hardware failure. Lumbosacral Spine: Moderate to marked degenerative change. Loss of disc height at multiple levels with spurring in the endplates. There is no listhesis or compression injury. Mild scoliosis.
== END 2021-08-14 10:06 | disposition home or self-care (01) ==
LOC: HO.XRAY 10:05
PROVIDERS: Visit Provider Physical Medicine & Rehabilitation
DX: M25.511 Pain in right shoulder (principal); M25.512 Pain in left shoulder; M54.59 Other low back pain; M25.562 Pain in left knee; M25.561 Pain in right knee
CPT/HCPCS: 72100; 73030; 73564

== ENCOUNTER 2021-08-25 09:50 | Outpatient (REF) | payer OTHER, SELFPAY ==
[2021-08-25 11:38] LABS: C Reactive Protein 0.04 mg/dL (< or = 0.50)
[2021-08-25 11:53] LABS: Erythrocyte Sedimentation Rate 7 MM/HR (0-15)
== END 2021-08-25 09:51 | disposition home or self-care (01) ==
LOC: HO.LAB 09:50
PROVIDERS: PCP Internal Medicine; Visit Provider Physical Medicine & Rehabilitation
DX: M13.0 Polyarthritis, unspecified (principal)
CPT/HCPCS: 36415; 85652; 86140

== ENCOUNTER → 2021-10-09 08:51 | Outpatient (BNVA) | payer OTHER, SELFPAY | PROVIDERS: PCP Internal Medicine; Visit Provider Urology | DX: N43.3 Hydrocele, unspecified (principal); N40.0 Benign prostatic hyperplasia without lower urinary tract symptoms; E11.69 Type 2 diabetes mellitus with other specified complication; N52.1 Erectile dysfunction due to diseases classified elsewhere | CPT/HCPCS: 51798; 99212 ==

== ENCOUNTER → 2021-11-24 13:13 | Outpatient (BNVA) | payer OTHER, SELFPAY | PROVIDERS: PCP Internal Medicine; Visit Provider Orthopaedic Surgery | DX: M25.511 Pain in right shoulder (principal); M25.512 Pain in left shoulder | CPT/HCPCS: 20610; 99212 ==

== ENCOUNTER 2021-12-17 12:58 | Inpatient (IN) | payer OTHER, SELFPAY ==
--- NOTE | ~2021-12-17 | XR_ITS ---
EXAMINATION: XR CHEST CLINICAL INFORMATION: Shortness of breath COMPARISON: Chest x-ray 08/15/2018 TECHNIQUE: Frontal view of the chest was obtained. 1425 hours FINDINGS: Lungs are clear. No pulmonary vascular congestion. There is no pleural effusion. The heart size is normal. The cardiac and mediastinal contours are normal. There are multilevel degenerative changes of dorsal spine. XR/XR chest 1V IMPRESSION: Unremarkable examination.
[2021-12-17 13:19] VITALS: BP 156/82; PULSE 93; RESP 18; TEMP 36.8; O2SAT 98; BMI 28.3
--- NOTE | 2021-12-17 13:24 | ECG_ITS ---
Test Reason : SOB Blood Pressure : / mmHG Vent. Rate : 078 BPM Atrial Rate : 078 BPM P-R Int : 146 ms QRS Dur : 132 ms QT Int : 364 ms P-R-T Axes : 022 -20 007 degrees QTc Int : 414 ms Normal sinus rhythm Right bundle branch block Abnormal ECG When compared with ECG of 22-AUG-2019 15:06, QT has shortened Referred By: Generic ED Physician Electronically Signed By:JULES MILES MD
[2021-12-17 13:55] LABS: MANUAL DIFF FLAG NO
[2021-12-17 13:58] LABS: Basophils Percent Auto 0.3 % (0-2); Eosinophils Percent Auto 0.2 % (0-4); Hematocrit 41.1 % (42.0-52.0); Hemoglobin 14.7 g/dl (14.0-18.0); Imm Gran Abs Auto 0.05 X10*3/uL (0.00-0.03); Imm Gran Pct Auto 0.5 % (0.0-0.4); Lymphocytes Absolute Auto 1.4 X10*3/uL (1.2-4.9); Lymphocytes Percent Auto 15.1 % (20-40); Mean Corpuscular HGB Conc 35.8 g/dl (31.0-36.0); Mean Corpuscular Hemoglobin 29.5 pg (27.0-33.0); Mean Corpuscular Volume 82.4 fL (80.0-98.0); Mean Platelet Volume 8.5 fL (9.4-12.4); Monocytes Absolute Auto 0.5 X10*3/uL (0.1-1.2); Monocytes Percent Auto 5.4 % (2-11); Neutrophils Absolute Auto 7.2 x10*3/uL (2.0-8.3); Neutrophils Percent Auto 78.5 % (45-73); Platelet Count 361 X10*3/uL (160-400); Red Blood Count 4.99 X10*6/uL (4.60-5.80); Red Cell Distribution Width 13.5 % (11.0-16.0); White Blood Count 9.2 X10*3/uL (4.8-10.8)
[2021-12-17 14:05] LABS: D Dimer High Sensitivity 210 NG/ML
[2021-12-17 14:10] LABS: COVID-19 Test Positive (Negative)
[2021-12-17 14:26] LABS: Blood Urea Nitrogen 12 mg/dL (9-16); Calcium 10.5 mg/dL (8.4-10.2); Estimated Glomerular Filt Rate > 60; Glucose Random 126 mg/dL (60-115)
[2021-12-17 14:43] LABS: Anion Gap 16 (12-20); Carbon Dioxide 22 mmol/L (22-29); Chloride 89 mmol/L (96-108); Potassium 4.5 mmol/L (3.3-5.1); Sodium 122 mmol/L (135-145)
--- NOTE | 2021-12-17 16:47 | ED.GENADULT ---
HPI - General Adult General Chief complaint: General Medical <RENNY Mera - Last Filed: 12/17/21 18:07> Stated complaint: diff breathing <RENNY Mera Last Filed: 12/17/21 18:07> Time Seen by Provider: 12/17/21 16:47 <RENNY Mera Last Filed: 12/17/21 18:07> Source: patient <RENNY Mera Last Filed: 12/17/21 18:07> Mode of arrival: ambulatory <RENNY Mera Last Filed: 12/17/21 18:07> Limitations: no limitations <RENNY Mera Last Filed: 12/17/21 18:07> History of Present Illness HPI narrative: 80-year-old male past medical history significant for BPH, cataract, diabetes, rectal dysfunction, hydrocele, hypercholesterolemia, hypertension presents to the emergency department with complaints of shortness of breath x1 week progressively worsening. Patient tells me that he has felt fatigued, weak, headache and with little to no appetite over the past 3 days as well. Patient tells me that this is a boring headache, feels like his typical headache, diffuse throughout his head, denies trauma to the area. He tells me that his shortness of breath is worse with exertion, better at rest. He reports that his at home is sick with similar symptoms however her home COVID test came back positive, he tells me that his symptoms were so severe that he thought he should come i speak to his PCP to be evaluated. Patient was evaluated earlier today by PCP who advised him to come into the emergency department to be evaluated. Patient denies chest pain, nausea, vomiting, cough, fevers, chills, abdominal pain, dizziness. <RENNY Mera Last Filed: 12/17/21 18:07> Related Data Home medications: Home Medications Medication Instructions Recorded Confirmed amlodipine 2.5 mg tablet 2.5 mg PO DAILY 05/08/20 11/24/21 aspirin 81 mg tablet,delayed 81 mg PO DAILY 05/08/20 11/24/21 release atorvastatin 10 mg tablet 10 mg PO DAILY 05/08/20 11/24/21 glipizide 5 mg tablet 2.5 mg PO DAILY 05/08/20 11/24/21 irbesartan 150 mg tablet 150 mg PO DAILY 05/08/20 11/24/21 metformin 500 mg tablet 500 mg PO BID 05/08/20 11/24/21 tamsulosin 0.4 mg capsule (Flomax) 0.4 mg PO BEDTIME 05/08/20 11/24/21 aspirin 81 mg chewable tablet 1 tab PO DAILY 10/04/20 11/24/21 blood sugar diagnostic #10 ea 10/04/20 11/24/21 cholecalciferol (vitamin D3) 50 50 mcg PO DAILY 10/04/20 11/24/21 mcg (2,000 unit) capsule dapagliflozin 5 mg tablet 5 mg PO QAM 10/04/20 11/24/21 ferrous sulfate 325 mg (65 mg 325 mg PO QAM 10/04/20 11/24/21 iron) tablet lancets 33 gauge #100 ea 10/04/20 11/24/21 metformin 1,000 mg tablet 1,000 mg PO BID 10/04/20 11/24/21 multivitamin 1 tab PO BEDTIME 10/04/20 11/24/21 dapagliflozin 10 mg tablet 10 mg PO QAM 10/09/21 11/24/21 ([facility]) Previous Rx's Medication Instructions Recorded walker #1 ea 04/30/20 bismuth subsalicylate 262 mg 2 tab PO QID 14 Days #112 tab 07/01/20 chewable tablet metronidazole 500 mg tablet 500 mg PO TID 14 Days #42 tab 07/01/20 omeprazole 20 mg capsule,delayed 20 mg PO BID 14 Days #28 cap 07/01/20 release tetracycline 500 mg capsule 500 mg PO QID 14 Days #56 cap 07/01/20 sildenafil 100 mg tablet (Viagra) 100 mg PO DAILY PRN 30 Days #30 tab 10/09/21 tamsulosin 0.4 mg capsule 0.4 mg PO BEDTIME 30 Days #90 cap 10/28/21 <RENNY Mera - Last Filed: 12/17/21 18:07> Allergies/adverse reactions: Allergies Allergy/AdvReac Type Severity Reaction Status Date / Time No Known Allergies Allergy Verified 11/24/21 13:18 [No Known Allergies*] <RENNY Mera - Last Filed: 12/17/21 18:07> Review of Systems Review of Systems: Constitutional : No Weight loss, No Fever, No Chills, + Fatigue, + Malaise ENT/Mouth : No sore throat, No Rhinorrhea Eyes: No Eye Pain, No Swelling, No Redness Cardiovascular : No Chest Pain, + SOB, No Dyspnea on Exertion, No Orthopnea, No Edema, No Palpitations Respiratory : No Cough, No Sputum, No Wheezing Gastrointestinal : No Nausea, No Vomiting, No Diarrhea, No Constipation, No abdominal Pain, No Hematochezia, No Melena Genitourinary : No Dysuria, No Urinary Frequency, No Hematuria, Musculoskeletal : No joint pain, No Myalgias, No Joint Swelling Skin : No Skin Lesions, No rash Neuro : No Weakness, No Numbness, No Dizziness, + Headache Psych : No Anxiety/Panic, No Depression All other systems reviewed and are negative <RENNY Mera - Last Filed: 12/17/21 18:07> Yes all other systems are reviewed and are negative <RENNY Mera - Last Filed: 12/17/21 18:07> [facility] Past Medical History Attestation statement: The following information was validated with the patient. <RENNY Mera - Last Filed: 12/17/21 18:07> Source: old records reviewed and nursing notes reviewed <RENNY Mera - Last Filed: 12/17/21 18:07> Medical History: Medical History BPH (benign prostatic hyperplasia) Cataract Diabetes Erectile dysfunction Hydrocele Hypercholesteremia Hypertension <RENNY Mera - Last Filed: 12/17/21 18:07> Surgical History: Surgical History History of bilateral knee replacement History of prostate surgery Hx of colonoscopy <RENNY Mera - Last Filed: 12/17/21 18:07> Family History Family History: Family History Father Diabetes Mother Diabetes <RENNY Mera - Last Filed: 12/17/21 18:07> Social History Social History: Social History Are you a primary primary care provider to a significant other at home: No Do you presently have visiting nurse or other home services: No Alcohol intake: never Patient Tobacco Use Status: Never used Tobacco Use of substances other than those prescribed or required for medical reasons: No Advance Directives: No Advance Directives Information Provided: No Current occupation: right handed <RENNY Mera - Last Filed: 12/17/21 18:07> Physical Exam ED Vital Signs: Vital Signs - 24 hr 12/17/21 13:19 12/17/21 17:20 12/17/21 18:16 Temperature 98.2 F Pulse Rate 93 93 81 Respiratory Rate 18 20 16 Blood Pressure 156/82 H 164/82 H Pulse Oximetry 98 99 BMI result Body Mass Index 28.3 Vital signs stable <RENNY Mera - Last Filed: 12/17/21 18:07> Appearance: Alert.? Oriented X3.? No acute distress.? Head: Normocephalic, atraumatic, no step-offs or deformities Eyes: Pupils equal, round and reactive to light.? ENT: Pharynx normal.? Neck: Normal inspection.? Neck supple.? CVS: Normal heart rate and rhythm.? Pulses normal.? Respiratory: No respiratory distress.? Breath sounds normal.? Abdomen: Soft and nontender.? Skin: Skin warm and dry.? Normal skin color.? Normal skin turgor.? Extremities: No lower extremity edema.? No calf ttp, negative jakub b/l. 5/5 strength to bilateral upper and lower extremities Back: No midline tenderness, no C-spine tenderness, full range of motion, no CVA tenderness bilaterally Neuro: Oriented X 3.? No motor deficit.? No sensory deficit. CN 2-12 intact <RENNY Mera - Last Filed: 12/17/21 18:07> Course Reevaluation(s) Reevaluation #1: CBC appears to be patient's baseline. Patient's sodium 122, chloride 89, calcium 10.5, patient does report poor p.o. intake with past few days therefore will gently hydrate. Will also call Nephrology. Chest x-ray negative. D-dimer negative unlikely PE/DVT. <RENNY Mera - Last Filed: 12/17/21 18:07> Time: 17:47 <RENNY Mera - Last Filed: 12/17/21 18:07> Reevaluation #2: Spoke to Nephrology who recommends light hydration, patient will be given 500 cc of normal saline. Nephrology will follow in the morning. Plan at this time is to admit patient for COVID and hyponatremia. <RENNY Mera - Last Filed: 12/17/21 18:07> Time: 18:07 <RENNY Mera - Last Filed: 12/17/21 18:07> Medical Decision Making [facility] Narrative Medical decision making narrative: 1654 76-year-old male presents with shortness of breath, weakness, fatigue, poor po intake x1 week progressively worsening. Physical examination significant for diminished breath sounds bilaterally. Regular rate and rhythm. Abdomen soft nontender nondistended. Neuro exam nonfocal. Plan at this time is basic labs, urine, COVID, influenza <RENNY Mera - Last Filed: 12/17/21 18:07> Medical Records Medical records reviewed: Yes I reviewed the patient's medical records. <RENNY Mera - Last Filed: 12/17/21 18:07> Lab Data Lab results reviewed: Yes I reviewed the patient's lab results. <RENNY Mera - Last Filed: 12/17/21 18:07> Result diagrams: : 12/17/21 13:51 12/17/21 13:52 <RENNY Mera - Last Filed: 12/17/21 18:07> Labs: Lab Results 12/17/21 12/17/21 12/17/21 Range/Units 13:46 13:51 13:51 WBC 9.2 (4.8-10.8) X10*3/uL RBC 4.99 (4.60-5.80) X10*6/uL Hgb 14.7 (14.0-18.0) g/dl Hct 41.1 L (42.0-52.0) % MCV 82.4 (80.0-98.0) fL MCH 29.5 (27.0-33.0) pg MCHC 35.8 (31.0-36.0) g/dl RDW 13.5 (11.0-16.0) % Plt Count 361 (160-400) X10*3/uL MPV 8.5 L (9.4-12.4) fL Immature Gran % (Auto) 0.5 H (0.0-0.4) % Neut % (Auto) 78.5 H (45-73) % Lymph % (Auto) 15.1 L (20-40) % [place] % (Auto) 5.4 (2-11) % Eos % (Auto) 0.2 (0-4) % Baso % (Auto) 0.3 (0-2) % Lymph # (Auto) 1.4 (1.2-4.9) X10*3/uL [place] # (Auto) 0.5 (0.1-1.2) X10*3/uL Eos # (Auto) 0.0 (0.0-0.4) X10*3/uL Baso # (Auto) 0.0 (0.0-0.2) X10*3/uL Abs Immat Gran (auto) 0.05 H (0.00-0.03) X10*3/uL Absolute Neuts (auto) 7.2 (2.0-8.3) x10*3/uL Absolute Nucleated RBC 0.000 (0.0-0.012) X10*3/uL Nucleated RBC % (auto) 0.0 (0.0-0.2) /100WBC D-Dimer High Sensitivty 210 NG/ML Sodium (135-145) mmol/L Potassium (3.3-5.1) mmol/L Chloride (96-108) mmol/L Carbon Dioxide (22-29) mmol/L Anion Gap (12-20) BUN (9-16) mg/dL Creatinine (0.5-1.4) mg/dL Estim Creat Clear Calc Estimated GFR Random Glucose (60-115) mg/dL Calcium (8.4-10.2) mg/dL Troponin I High Sens (<3.5-35.0) ng/L COVID-19 ([facility]) Positive A (Negative) COVID-19 Clin Com See Note 12/17/21 12/17/21 Range/Units 13:52 13:52 WBC (4.8-10.8) X10*3/uL RBC (4.60-5.80) X10*6/uL Hgb (14.0-18.0) g/dl Hct (42.0-52.0) % MCV (80.0-98.0) fL MCH (27.0-33.0) pg MCHC (31.0-36.0) g/dl RDW (11.0-16.0) % Plt Count (160-400) X10*3/uL MPV (9.4-12.4) fL Immature Gran % (Auto) (0.0-0.4) % Neut % (Auto) (45-73) % Lymph % (Auto) (20-40) % [place] % (Auto) (2-11) % Eos % (Auto) (0-4) % Baso % (Auto) (0-2) % Lymph # (Auto) (1.2-4.9) X10*3/uL [place] # (Auto) (0.1-1.2) X10*3/uL Eos # (Auto) (0.0-0.4) X10*3/uL Baso # (Auto) (0.0-0.2) X10*3/uL Abs Immat Gran (auto) (0.00-0.03) X10*3/uL Absolute Neuts (auto) (2.0-8.3) x10*3/uL Absolute Nucleated RBC (0.0-0.012) X10*3/uL Nucleated RBC % (auto) (0.0-0.2) /100WBC D-Dimer High Sensitivty NG/ML Sodium 122 L (135-145) mmol/L Potassium 4.5 (3.3-5.1) mmol/L Chloride 89 L (96-108) mmol/L Carbon Dioxide 22 (22-29) mmol/L Anion Gap 16 (12-20) BUN 12 (9-16) mg/dL Creatinine 0.82 (0.5-1.4) mg/dL Estim Creat Clear Calc 67.0 Estimated GFR > 60 Random Glucose 126 H (60-115) mg/dL Calcium 10.5 H D (8.4-10.2) mg/dL Troponin I High Sens < 3.5 (<3.5-35.0) ng/L COVID-19 ([facility]) (Negative) COVID-19 Clin Com <RENNY Mera Last Filed: 12/17/21 18:07> ECG Data Attestation: I personally reviewed and interpreted this ECG as follows: <RENNY Mera Last Filed: 12/17/21 18:07> Prior ECG tracings: available for review <RENNY Mera Last Filed: 12/17/21 18:07> Interpretation: Ventricular rate of 78, AR normal, QRS normal, QT/QTC normal. EKG shows normal sinus rhythm with right bundle-branch block, no ST elevations or inversions concerning for ischemia. When compared to EKG from August 2019 no significant findings. <RENNY Mera - Last Filed: 12/17/21 18:07> Critical Care Time Critical Care Time Critical Care Time: Yes <RENNY Mera Last Filed: 12/17/21 18:07> Total Critical Care Time: 35 <RENNY Mera - Last Filed: 12/17/21 18:07> Attestation: I attest to this time spent taking care of the patient, obtaining history, physical, reviewing labs, imaging, speaking to specialist. <RENNY Mera Last Filed: 12/17/21 18:07> Discharge Plan Discharge Clinical Impression: COVID, Acute hyponatremia <RENNY Mera Last Filed: 12/17/21 18:07> Patient Disposition: Admitted As Inpatient <RENNY Mera Last Filed: 12/17/21 18:07>
[2021-12-17 17:20] VITALS: PULSE 93; RESP 20; O2SAT 96
[2021-12-17] MEDS: Albuterol/Iprat 2.5/0.5MG 3 ML AMPUL.NEB INHALE (17:20)
[2021-12-17] MEDS: 0.9 % Sodium Chloride 500 ML IV (18:11)
[2021-12-17 18:16] VITALS: BP 164/82; PULSE 81; RESP 16; O2SAT 99
[2021-12-17 18:18] LABS: Troponin-I High Sensitivity < 3.5 ng/L (<3.5-35.0)
[2021-12-17 18:54] LABS: Creatinine Urine 33.71 mg/dL
[2021-12-17 19:02] LABS: Osmolality Urine 432 mosm/kg (373-1093)
--- NOTE | 2021-12-17 19:30 | PC.NURSE ---
Assumed care of pt Pt assisted with urinal. Output of approx 200 mL urine. Pt hungarian-speaking only NAD Will continue to monitor
--- NOTE | 2021-12-17 19:34 | PHA.MEDREC ---
Pharmacy Consult ? Medication Reconciliation Pharmacy has completed the medication reconciliation.
--- NOTE | 2021-12-17 19:57 | PM.IMHP ---
History of Present Illness Date of Service: 12/17/21 Chief Complaint: SOB This is a 76-year-old male with past medical history of BPH, diabetes, HLD, HTN, who presents to the hospital with various complaints. Patient is Ugandan-speaking and history is obtained with the help of an high school director. Patient reports that he developed shortness of breath, generalized weakness, low appetite about 1 week ago, he tested himself for COVID at home, he was positive. Her since Wednesday his symptoms worsened. He has had shortness of breath, headache, low appetite, as well as some near. Patient also complaining of chest pain that is all over his chest, worse with breathing, patient denies any nausea or vomiting, no abdominal pain, he is constipated for the past 3 days, he reports chronic frequency of urine with no dysuria or urgency. He denies any lower extremity edema. He denies any numbness or tingling. Patient reports that he has not been eating much, but has been drinking about 2-3 bottles of water daily. On arrival to the ED patient hemodynamically stable with no significant abnormal vitals. Satting 98% on room air Labs are significant for WBC count of 9.2, sodium of 122, glucose of 128, urine osmolality of 432, urine random sodium of 39, COVID-19 positive Chest x-ray is negative for any abnormality. Patient will be admitted for hyponatremia Review of Systems Review of Systems: Yes all other systems are reviewed and are negative [facility] Medical History BPH (benign prostatic hyperplasia) Cataract Diabetes Erectile dysfunction Hydrocele Hypercholesteremia Hypertension Family History Father Diabetes Mother Diabetes Surgical History History of bilateral knee replacement History of prostate surgery Hx of colonoscopy Social History Household Members: Spouse Housing: Apartment Are you a primary child care development specialist to a significant other at home: No Do you presently have visiting nurse or other home services: No Alcohol intake: never Patient Tobacco Use Status: Never used Tobacco Use of substances other than those prescribed or required for medical reasons: No Have you been hit, kicked, punched, or otherwise hurt by someone within the past year? If so, by whom?: No Do you feel safe in your current relationship?: Yes Is there a partner from a previous relationship who is making you feel unsafe now?: No Are you made to feel afraid or neglected: No Advance Directives: No Advance Directives Information Provided: No Do you have thoughts of harming others: None Do you have a plan to hurt others: No Plan Recently lost weight without trying: Unsure Nutrition Risks: No Nutritional Risk Current occupation: right handed Meds Allergies Allergy/AdvReac Type Severity Reaction Status Date / Time No Known Allergies Allergy Verified 11/24/21 13:18 [No Known Allergies*] Active Medications: Current Medications Acetaminophen (Acetaminophen 325 Mg Tablet) 650 mg PO Q6H PRN PRN Reason: Pain, Mild (Pain Scale 1-3) Amlodipine Besylate (Amlodipine Besylate 2.5 Mg Tablet) 2.5 mg PO DAILY@1200 JOHNATHAN; Protocol Aspirin (Aspirin 81 Mg Tab.Chew) 81 mg PO DAILY [facility] Atorvastatin Calcium (Atorvastatin Calcium 10 Mg Tablet) 10 mg PO DAILY [facility] Dextrose (Dextrose 50 % 25 Gm/50 Ml Syringe) 25 gm IVPUSH Q15M PRN; Protocol PRN Reason: per Hypoglycemia Standing Ord. Glucose (Glucose Gel 15 Gm Gel..Gram.) 15 gm PO Q15M PRN; Protocol PRN Reason: per Hypoglycemia Standing Ord. Heparin Sodium (Porcine) (Heparin Sodium,Porcine 5,000 Unit/Ml Vial) 5,000 unit SUBCUT Q12H [facility] Sodium Chloride (Ns) 1,000 mls @ 100 mls/hr IVCONT .Q10H [facility] Insulin Human Lispro (Insulin Lispro 100 Unit/Ml 3 Ml Vial) 0 unit SUBCUT QIDACHS [facility]; Protocol Multivitamins/Vitamin C (Multivitamin Tablet) 1 tab PO DAILY [facility] Non-Formulary Medication (Irbesartan) 1 tab PO DAILY@1200 JOHNATHAN Ondansetron HCl (Ondansetron Hcl 4 Mg/2 Ml Vial) 4 mg IVPUSH Q8H PRN PRN Reason: Nausea and Vomiting Pharmacy Consult (Consult Rx Perform Med Rec) 1 each MISCELLANE ONCE PRN PRN Reason: Consult order Sodium Chloride (0.9 % Sodium Chloride Flush 3 Ml Syringe) 3 ml IVFLUSH QSHIFT [facility] Tamsulosin HCl (Tamsulosin Hcl 0.4 Mg Capsule) 0.4 mg PO BEDTIME [facility] Vitamin D (Cholecalciferol (Vitamin D3) 25 Mcg Tablet) 50 mcg PO DAILY [facility] Home Medications Medication Instructions Recorded Confirmed Last Taken Type amlodipine 2.5 mg tablet 2.5 mg PO DAILY@1200 05/08/20 12/17/21 07/01/20 History atorvastatin 10 mg tablet 10 mg PO DAILY 05/08/20 12/17/21 07/01/20 History tamsulosin 0.4 mg capsule (Flomax) 0.4 mg PO BEDTIME 05/08/20 12/17/21 Unknown History aspirin 81 mg chewable tablet 1 tab PO DAILY 10/04/20 12/17/21 Unknown History blood sugar diagnostic #10 ea 10/04/20 11/24/21 Unknown History cholecalciferol (vitamin D3) 50 50 mcg PO DAILY 10/04/20 12/17/21 Unknown History mcg (2,000 unit) capsule lancets 33 gauge #100 ea 10/04/20 11/24/21 Unknown History metformin 1,000 mg tablet 1,000 mg PO BID 10/04/20 12/17/21 Unknown History multivitamin 1 tab PO DAILY 10/04/20 12/17/21 Unknown History dapagliflozin 10 mg tablet 10 mg PO QAM 10/09/21 12/17/21 Unknown History ([facility]) irbesartan 150 mg tablet 1 tab PO DAILY@1200 12/17/21 12/17/21 Unknown History Physical Exam Vital Signs and Narrative: Vital Signs: Last Vital Signs Temp 98.2 F 12/17/21 13:19 Pulse 81 12/17/21 18:16 Resp 16 12/17/21 18:16 BP 164/82 H 12/17/21 18:16 Pulse Ox 99 12/17/21 18:16 BMI result Body Mass Index 28.3 Const: General: cooperative and no acute distress Orientation/consciousness: patient oriented x3 Eyes: General: appearance normal, both eyes and all related structures Resp: Effort & Inspection: normal respiratory effort Auscultation: clear to auscultation bilaterally Cardio: Rate: regular rate Rhythm: regular rhythm GI: Palpation (GI): Soft to palpation Auscultation: normal bowel sounds Skin: General skin exam: no rashes or lesions noted Neuro: General: patient oriented x3 Cognition (Neuro): normal cognition Extrem: General: Yes normal to inspection and Yes no pedal edema Results Labs CBC and Chem 7: 12/17/21 13:51 12/18/21 02:45 Labs: Laboratory Results - last 24 hr 12/17/21 12/17/21 12/17/21 13:46 13:51 13:51 MCV 82.4 MCH 29.5 MCHC 35.8 RDW 13.5 Plt Count 361 MPV 8.5 L Immature Gran % (Auto) 0.5 H Neut % (Auto) 78.5 H Lymph % (Auto) 15.1 L [place] % (Auto) 5.4 Eos % (Auto) 0.2 Baso % (Auto) 0.3 Lymph # (Auto) 1.4 [place] # (Auto) 0.5 Eos # (Auto) 0.0 Baso # (Auto) 0.0 Abs Immat Gran (auto) 0.05 H Absolute Neuts (auto) 7.2 Absolute Nucleated RBC 0.000 Nucleated RBC % (auto) 0.0 D-Dimer High Sensitivty 210 Sodium Anion Gap Estim Creat Clear Calc Estimated GFR Random Glucose Calcium Troponin I High Sens Urine Osmolality Ur Random Sodium Urine Creatinine COVID-19 ([facility]) Positive A COVID-19 Clin Com See Note 12/17/21 12/17/21 12/17/21 13:52 13:52 18:18 MCV MCH MCHC RDW Plt Count MPV Immature Gran % (Auto) Neut % (Auto) Lymph % (Auto) [place] % (Auto) Eos % (Auto) Baso % (Auto) Lymph # (Auto) [place] # (Auto) Eos # (Auto) Baso # (Auto) Abs Immat Gran (auto) Absolute Neuts (auto) Absolute Nucleated RBC Nucleated RBC % (auto) D-Dimer High Sensitivty Sodium 122 L Anion Gap 16 Estim Creat Clear Calc 67.0 Estimated GFR > 60 Random Glucose 126 H Calcium 10.5 H D Troponin I High Sens < 3.5 Urine Osmolality Ur Random Sodium 39.0 Urine Creatinine 33.71 COVID-19 ([facility]) COVID-19 Clin Com 12/17/21 18:18 MCV MCH MCHC RDW Plt Count MPV Immature Gran % (Auto) Neut % (Auto) Lymph % (Auto) [place] % (Auto) Eos % (Auto) Baso % (Auto) Lymph # (Auto) [place] # (Auto) Eos # (Auto) Baso # (Auto) Abs Immat Gran (auto) Absolute Neuts (auto) Absolute Nucleated RBC Nucleated RBC % (auto) D-Dimer High Sensitivty Sodium Anion Gap Estim Creat Clear Calc Estimated GFR Random Glucose Calcium Troponin I High Sens Urine Osmolality 432 Ur Random Sodium Urine Creatinine COVID-19 ([facility]) COVID-19 Clin Com Imaging Radiologist's Impressions: Impressions Chest X-Ray 12/17/21 14:27 IMPRESSION: Unremarkable examination. Assessment and Plan (1) Acute hyponatremia: Status: Acute (2) COVID-19 virus infection: Status: Acute Plan 76-year-old male with history of hypertension, hyperlipidemia, diabetes, BPH presents to the hospital with various complaints above found to have hyponatremia and COVID-19 infection # moderate hyponatremia - possibly secondary to low sodium intake - patient given 500 cc of NS in the ED with improvement of his sodium, at this time will continue NS maintenance fluids - BMP q.4 hours - unclear chronicity as his previous sodium was 130 on 01/22 - consult Nephrology # COVID-19 infection - asymptomatic - no hypoxia - monitor respiratory symptoms # hypertension - stable - will hold off on restarting losartan in the setting of hyponatremia - monitor blood pressure # hyperlipidemia - continue statin # diabetes - hold oral antihyperglycemics - start low-dose sliding scale insulin - hepatic diet DVT prophylaxis: Heparin subQ Given patient's hyponatremia he will require minimal 2 night hospital stay to monitor Quality Stroke Does the patient have a stroke diagnosis?: No VTE Prior VTE?: No VTE Risk Level:: Medical - moderate - high VTE Device Contraindication: Treatment Not Indicated VTE Drug Contraindication: N/A - Med Ordered
[2021-12-17 20:36] LABS: Glucose, Whole Blood 128 mg/dL (60-115)
[2021-12-17 21:18] LABS: Anion Gap 14 (12-20); Blood Urea Nitrogen 15 mg/dL (9-16); Calcium 10.6 mg/dL (8.4-10.2); Carbon Dioxide 23 mmol/L (22-29); Chloride 92 mmol/L (96-108); Creatinine Clr Calc Pharmacy 65.4; Estimated Glomerular Filt Rate > 60; Glucose Random 120 mg/dL (60-115); Potassium 4.3 mmol/L (3.3-5.1); Sodium 125 mmol/L (135-145)
[2021-12-17] MEDS: Heparin Sodium,Porcine 5,000 UNIT/ML VIAL 5000 UNIT SUBCUT (21:29)
[2021-12-17] MEDS: Tamsulosin HCL 0.4 MG CAPSULE PO (21:30)
[2021-12-17 21:41] VITALS: BP 158/75; PULSE 85; O2SAT 95
[2021-12-17] MEDS: 0.9 % Sodium Chloride 1,000 ML 100 ML IVCONT (22:19)
[2021-12-17 23:19] LABS: Anion Gap 13 (12-20); Blood Urea Nitrogen 14 mg/dL (9-16); Calcium 9.7 mg/dL (8.4-10.2); Carbon Dioxide 20 mmol/L (22-29); Chloride 95 mmol/L (96-108); Creatinine Clr Calc Pharmacy 74.2; Estimated Glomerular Filt Rate > 60; Glucose Random 107 mg/dL (60-115); Potassium 4.2 mmol/L (3.3-5.1); Sodium 124 mmol/L (135-145)
[2021-12-18] VITALS (8 sets, daily range): BP systolic 120–181; BP diastolic 70–87; PULSE 70–106; RESP 16–20; TEMP 36.2–37.1; O2SAT 95–100; BMI 27.8
[2021-12-18 03:08] LABS: Anion Gap 15 (12-20); Blood Urea Nitrogen 12 mg/dL (9-16); Calcium 9.6 mg/dL (8.4-10.2); Carbon Dioxide 18 mmol/L (22-29); Chloride 96 mmol/L (96-108); Creatinine Clr Calc Pharmacy 77.4; Estimated Glomerular Filt Rate > 60; Glucose Random 96 mg/dL (60-115); Potassium 4.2 mmol/L (3.3-5.1); Sodium 125 mmol/L (135-145)
[2021-12-18 06:40] LABS: MANUAL DIFF FLAG NO
[2021-12-18 06:53] LABS: Basophils Absolute Auto 0.1 X10*3/uL (0.0-0.2); Basophils Percent Auto 0.8 % (0-2); Eosinophils Percent Auto 0.6 % (0-4); Hemoglobin 13.8 g/dl (14.0-18.0); Imm Gran Abs Auto 0.05 X10*3/uL (0.00-0.03); Imm Gran Pct Auto 0.8 % (0.0-0.4); Lymphocytes Absolute Auto 1.8 X10*3/uL (1.2-4.9); Lymphocytes Percent Auto 28.7 % (20-40); Mean Corpuscular HGB Conc 34.5 g/dl (31.0-36.0); Mean Corpuscular Hemoglobin 28.4 pg (27.0-33.0); Mean Corpuscular Volume 82.3 fL (80.0-98.0); Mean Platelet Volume 8.6 fL (9.4-12.4); Monocytes Absolute Auto 0.6 X10*3/uL (0.1-1.2); Monocytes Percent Auto 9.5 % (2-11); Neutrophils Absolute Auto 3.7 x10*3/uL (2.0-8.3); Neutrophils Percent Auto 59.6 % (45-73); Platelet Count 345 X10*3/uL (160-400); Red Blood Count 4.86 X10*6/uL (4.60-5.80); Red Cell Distribution Width 13.6 % (11.0-16.0); White Blood Count 6.2 X10*3/uL (4.8-10.8)
[2021-12-18 07:07] LABS: Anion Gap 14 (12-20); Blood Urea Nitrogen 11 mg/dL (9-16); Carbon Dioxide 23 mmol/L (22-29); Chloride 95 mmol/L (96-108); Creatinine Clr Calc Pharmacy 72.6; Estimated Glomerular Filt Rate > 60; Glucose Random 97 mg/dL (60-115); Potassium 4.7 mmol/L (3.3-5.1); Sodium 127 mmol/L (135-145)
[2021-12-18 07:14] LABS: Glucose, Whole Blood 94 mg/dL (60-115)
[2021-12-18] MEDS: 0.9 % Sodium Chloride 1,000 ML 100 ML IVCONT (08:15)
[2021-12-18] MEDS: Multivitamin TABLET 1 TAB PO (08:16)
[2021-12-18] MEDS: Aspirin 81 MG TAB.CHEW PO (08:16)
[2021-12-18] MEDS: 0.9 % Sodium Chloride Flush 3 ML SYRINGE IVFLUSH ×2 (08:16→16:11)
[2021-12-18] MEDS: Cholecalciferol (Vitamin D3) 25 MCG TABLET 50 MCG PO (08:16)
[2021-12-18] MEDS: Atorvastatin Calcium 10 MG TABLET PO (08:16)
[2021-12-18] MEDS: Heparin Sodium,Porcine 5,000 UNIT/ML VIAL 5000 UNIT SUBCUT ×2 (08:16→19:30)
--- NOTE | 2021-12-18 08:39 | MHC.CM.PN ---
Patient is Covid (+) and unavailable by phone; CM spoke with Daughter/Rubi @ [phone] with the assist of a Telephonic Wooden Tank Erector. IMM addressed with Rubi and the original will be mailed certified letter to her and a copy has been placed on the chart. Patient lives in an apartment with his and he receives 2 1/2 hours/day of [employer] services and an Insurance RN calls every 3 months and visits every 6 months. Home/resume said services is the goal and CM has initiated and will follow for dc planning. PCP is Dr. Torrez and Patient has received [employer] vax X4.
[2021-12-18 11:42] LABS: Glucose, Whole Blood 100 mg/dL (60-115)
--- NOTE | 2021-12-18 11:44 | PM.CNNEP ---
History of Present Illness Reason for Consult Consult date: 12/18/21 Chief Complaint Chief complaint: Hyponatremia Review of Systems Constitutional: Reports as per [facility] Past Medical History Medical History BPH (benign prostatic hyperplasia) Cataract Diabetes Erectile dysfunction Hydrocele Hypercholesteremia Hypertension Family History Family History Father Diabetes Mother Diabetes Surgical History Surgical History History of bilateral knee replacement History of prostate surgery Hx of colonoscopy Social History Social History Household Members: Spouse Housing: Apartment Are you a primary home care physical therapist to a significant other at home: No Do you presently have visiting nurse or other home services: No Alcohol intake: never Patient Tobacco Use Status: Never used Tobacco Use of substances other than those prescribed or required for medical reasons: No Currently Displaying Signs/Symptoms of Drug Intoxication Withdrawal: No Have you been hit, kicked, punched, or otherwise hurt by someone within the past year? If so, by whom?: No Do you feel safe in your current relationship?: Yes Is there a partner from a previous relationship who is making you feel unsafe now?: No Are you made to feel afraid or neglected: No Advance Directives: No Advance Directives Information Provided: No Do you have thoughts of harming others: None Do you have a plan to hurt others: No Plan Recently lost weight without trying: Unsure Nutrition Risks: No Nutritional Risk service: No Current occupational status: retired Current occupation: right handed Meds Allergies Allergy/AdvReac Type Severity Reaction Status Date / Time No Known Allergies Allergy Verified 11/24/21 13:18 [No Known Allergies*] Active Medications: Current Medications Acetaminophen (Acetaminophen 325 Mg Tablet) 650 mg PO Q6H PRN PRN Reason: Pain, Mild (Pain Scale 1-3) Amlodipine Besylate (Amlodipine Besylate 2.5 Mg Tablet) 2.5 mg PO DAILY@1200 JOHNATHAN; Protocol Aspirin (Aspirin 81 Mg Tab.Chew) 81 mg PO DAILY [facility] Last Admin: 12/18/21 08:16 Dose: 81 mg Documented by: Atorvastatin Calcium (Atorvastatin Calcium 10 Mg Tablet) 10 mg PO DAILY [facility] Last Admin: 12/18/21 08:16 Dose: 10 mg Documented by: Dextrose (Dextrose 50 % 25 Gm/50 Ml Syringe) 25 gm IVPUSH Q15M PRN; Protocol PRN Reason: per Hypoglycemia Standing Ord. Glucose (Glucose Gel 15 Gm Gel..Gram.) 15 gm PO Q15M PRN; Protocol PRN Reason: per Hypoglycemia Standing Ord. Heparin Sodium (Porcine) (Heparin Sodium,Porcine 5,000 Unit/Ml Vial) 5,000 unit SUBCUT Q12H [facility] Last Admin: 12/18/21 08:16 Dose: 5,000 unit Documented by: Sodium Chloride (Ns) 1,000 mls @ 100 mls/hr IVCONT .Q10H [facility] Last Admin: 12/18/21 08:15 Dose: 100 mls/hr Documented by: Insulin Human Lispro (Insulin Lispro 100 Unit/Ml 3 Ml Vial) 0 unit SUBCUT QIDACHS [facility]; Protocol Last Admin: 12/18/21 07:51 Dose: Not Given Documented by: Multivitamins/Vitamin C (Multivitamin Tablet) 1 tab PO DAILY [facility] Last Admin: 12/18/21 08:16 Dose: 1 tab Documented by: Ondansetron HCl (Ondansetron Hcl 4 Mg/2 Ml Vial) 4 mg IVPUSH Q8H PRN PRN Reason: Nausea and Vomiting Pharmacy Consult (Consult Rx Perform Med Rec) 1 each MISCELLANE ONCE PRN PRN Reason: Consult order Sodium Chloride (0.9 % Sodium Chloride Flush 3 Ml Syringe) 3 ml IVFLUSH QSHIFT [facility] Last Admin: 12/18/21 08:16 Dose: 3 ml Documented by: Tamsulosin HCl (Tamsulosin Hcl 0.4 Mg Capsule) 0.4 mg PO BEDTIME [facility] Last Admin: 12/17/21 21:30 Dose: 0.4 mg Documented by: Vitamin D (Cholecalciferol (Vitamin D3) 25 Mcg Tablet) 50 mcg PO DAILY [facility] Last Admin: 12/18/21 08:16 Dose: 50 mcg Documented by: Home Medications Medication Instructions Recorded Confirmed Last Taken Type amlodipine 2.5 mg tablet 2.5 mg PO DAILY@1200 05/08/20 12/17/21 07/01/20 History atorvastatin 10 mg tablet 10 mg PO DAILY 05/08/20 12/17/21 07/01/20 History tamsulosin 0.4 mg capsule (Flomax) 0.4 mg PO BEDTIME 05/08/20 12/17/21 Unknown History aspirin 81 mg chewable tablet 1 tab PO DAILY 10/04/20 12/17/21 Unknown History blood sugar diagnostic #10 ea 10/04/20 11/24/21 Unknown History cholecalciferol (vitamin D3) 50 50 mcg PO DAILY 10/04/20 12/17/21 Unknown History mcg (2,000 unit) capsule lancets 33 gauge #100 ea 10/04/20 11/24/21 Unknown History metformin 1,000 mg tablet 1,000 mg PO BID 10/04/20 12/17/21 Unknown History multivitamin 1 tab PO DAILY 10/04/20 12/17/21 Unknown History dapagliflozin 10 mg tablet 10 mg PO QAM 10/09/21 12/17/21 Unknown History ([facility]) irbesartan 150 mg tablet 1 tab PO DAILY@1200 12/17/21 12/17/21 Unknown History Physical Exam Vital Signs: Last Vital Signs Temp 97.4 F 12/18/21 11:04 Pulse 70 12/18/21 11:04 Resp 20 12/18/21 11:04 BP 181/80 H 12/18/21 11:04 Pulse Ox 100 12/18/21 11:04 BMI result Body Mass Index 27.8 Const General: cooperative, comfortable and no acute distress Orientation/consciousness: patient oriented x3 HEENT Head: Yes normocephalic Neck Neck: Yes no JVD Resp Auscultation: clear to auscultation bilaterally Cardio Jugular venous distension: no JVD Rate: regular rate Rhythm: regular rhythm Heart sounds: S1 normal heart sound present and S2 normal heart sound present GI Auscultation: normal bowel sounds Neuro General: patient oriented x3 and moves all extremities Extrem Other: no edema, joint deformities noted due to chronic arthritis. General: Yes clubbing Results Lab Results Result Diagrams: 12/18/21 06:23 12/18/21 06:23 Lab results: Chemistry 12/17/21 12/17/21 12/17/21 13:52 20:57 22:55 Sodium 122 L 125 L 124 L Potassium 4.5 4.3 4.2 Carbon Dioxide 22 23 20 L BUN 12 15 14 Creatinine 0.82 0.84 0.74 Calcium 10.5 H D 10.6 H 9.7 D 12/18/21 12/18/21 12/18/21 02:45 06:23 06:23 Sodium 125 L 127 L Cancelled Potassium 4.2 4.7 Cancelled Carbon Dioxide 18 L 23 Cancelled BUN 12 11 Cancelled Creatinine 0.71 0.75 Cancelled Calcium 9.6 10.0 Cancelled Hematology 12/17/21 12/18/21 13:51 06:23 WBC 9.2 6.2 Hgb 14.7 13.8 L Plt Count 361 345 Urine Studies 12/17/21 12/17/21 18:18 18:18 Urine Osmolality 432 Urine Creatinine 33.71 Assessment and Plan (1) COVID: Status: Acute (2) Acute hyponatremia: Status: Acute #)Euvolemic hyponatremia COvid +, chronic pain, suspect infection and pain along with poor po intake and increaed water consumption led to hyponatremia U-lytes consistent with elevted U-Osm also consistent with siadh. Limit correction to 6-8 meq/L in next 24 hours. Would limit correction to 128-130 meq/L by this evening. If overcorrection occurs, would start D5W and match rate of infusion to that of uop. Check S-Na q 4 hours. Would hold further IVF's. Will check TSH and cortisol for am. Added urine studies to check for protein gap bp control with nifedipine 30 mg xl daily. Procedures Date of Service Date of Service: 12/18/21
[2021-12-18 11:51] LABS: Anion Gap 14 (12-20); Blood Urea Nitrogen 12 mg/dL (9-16); Calcium 9.9 mg/dL (8.4-10.2); Carbon Dioxide 21 mmol/L (22-29); Chloride 94 mmol/L (96-108); Creatinine Clr Calc Pharmacy 74.6; Estimated Glomerular Filt Rate > 60; Glucose Random 104 mg/dL (60-115); Potassium 4.7 mmol/L (3.3-5.1); Sodium 124 mmol/L (135-145)
--- NOTE | 2021-12-18 12:35 | HO.PM.IMPN ---
Subjective Subjective Date of Service: 12/18/21 Interval History: seen and examined this morning follow up for hyponatremia, COVID 19 Patient reports feeling like he is suffocating since he was diagnosed with COVID-19 at the beginning of November. This feeling has been constant at rest and with exertion. He reports this feeling even as he is speaking in full sentences during this eval. He denies any associated cough or chest pain. Review of Systems Review of Systems: Yes all other systems are reviewed and are negative Constitutional Constitutional: Denies chills and Denies fever(s) Cardiovascular Cardiovascular: Denies chest pain, Denies palpitations and Reports dyspnea Respiratory Respiratory: Denies cough and Reports dyspnea Gastrointestinal Gastrointestinal: Denies abdominal pain, Denies nausea and Denies vomiting Endocrine Endocrine: Denies palpitations Physical Exam Vital Signs: Vital Signs: Last Vital Signs Temp 97.4 F 12/18/21 11:04 Pulse 70 12/18/21 11:04 Resp 20 12/18/21 11:04 BP 181/80 H 12/18/21 11:04 Pulse Ox 100 12/18/21 11:04 BMI result Body Mass Index 27.8 Const: General: cooperative, comfortable, alert and awake Nutritional Appearance: average body habitus Resp: Effort & Inspection: normal respiratory effort, able to speak in complete sentences, no respiratory distress and no use of accessory muscles Auscultation: clear to auscultation bilaterally, no rales, no rhonchi and no wheezes Cardio: Rate: regular rate Heart sounds: S1 normal heart sound present and S2 normal heart sound present GI: Inspection: No distended Palpation (GI): not soft and nontender Extrem: Other: able to move all 4 extremities spontaneously General: Yes no pedal edema Objective Data Active Medications Acetaminophen (Acetaminophen 325 Mg Tablet) 650 mg PO Q6H PRN PRN Reason: Pain, Mild (Pain Scale 1-3) Amlodipine Besylate (Amlodipine Besylate 2.5 Mg Tablet) 2.5 mg PO DAILY@1200 JOHNATHAN; Protocol Aspirin (Aspirin 81 Mg Tab.Chew) 81 mg PO DAILY [facility] Last Admin: 12/18/21 08:16 Dose: 81 mg Documented by: LYDIA Atorvastatin Calcium (Atorvastatin Calcium 10 Mg Tablet) 10 mg PO DAILY [facility] Last Admin: 12/18/21 08:16 Dose: 10 mg Documented by: LYDIA Dextrose (Dextrose 50 % 25 Gm/50 Ml Syringe) 25 gm IVPUSH Q15M PRN; Protocol PRN Reason: per Hypoglycemia Standing Ord. Glucose (Glucose Gel 15 Gm Gel..Gram.) 15 gm PO Q15M PRN; Protocol PRN Reason: per Hypoglycemia Standing Ord. Heparin Sodium (Porcine) (Heparin Sodium,Porcine 5,000 Unit/Ml Vial) 5,000 unit SUBCUT Q12H [facility] Last Admin: 12/18/21 08:16 Dose: 5,000 unit Documented by: LYDIA Sodium Chloride (Ns) 1,000 mls @ 100 mls/hr IVCONT .Q10H [facility] Last Admin: 12/18/21 08:15 Dose: 100 mls/hr Documented by: LYDIA Insulin Human Lispro (Insulin Lispro 100 Unit/Ml 3 Ml Vial) 0 unit SUBCUT QIDACHS [facility]; Protocol Last Admin: 12/18/21 12:28 Dose: Not Given Documented by: LYDIA Non-Admin Reason: No Insulin Coverage Multivitamins/Vitamin C (Multivitamin Tablet) 1 tab PO DAILY [facility] Last Admin: 12/18/21 08:16 Dose: 1 tab Documented by: LYDIA Ondansetron HCl (Ondansetron Hcl 4 Mg/2 Ml Vial) 4 mg IVPUSH Q8H PRN PRN Reason: Nausea and Vomiting Pharmacy Consult (Consult Rx Perform Med Rec) 1 each MISCELLANE ONCE PRN PRN Reason: Consult order Sodium Chloride (0.9 % Sodium Chloride Flush 3 Ml Syringe) 3 ml IVFLUSH QSHIFT [facility] Last Admin: 12/18/21 08:16 Dose: 3 ml Documented by: LYDIA Tamsulosin HCl (Tamsulosin Hcl 0.4 Mg Capsule) 0.4 mg PO BEDTIME [facility] Last Admin: 12/17/21 21:30 Dose: 0.4 mg Documented by: MARLEY Vitamin D (Cholecalciferol (Vitamin D3) 25 Mcg Tablet) 50 mcg PO DAILY [facility] Last Admin: 12/18/21 08:16 Dose: 50 mcg Documented by: LYDIA Labs CBC & Chem 7: 12/18/21 06:23 12/18/21 11:09 Labs: Laboratory Results - last 24 hr 12/17/21 12/17/21 12/17/21 13:46 13:51 13:51 MCV 82.4 MCH 29.5 MCHC 35.8 RDW 13.5 Plt Count 361 MPV 8.5 L Immature Gran % (Auto) 0.5 H Neut % (Auto) 78.5 H Lymph % (Auto) 15.1 L Bee % (Auto) 5.4 Eos % (Auto) 0.2 Baso % (Auto) 0.3 Lymph # (Auto) 1.4 Bee # (Auto) 0.5 Eos # (Auto) 0.0 Baso # (Auto) 0.0 Abs Immat Gran (auto) 0.05 H Absolute Neuts (auto) 7.2 Absolute Nucleated RBC 0.000 Nucleated RBC % (auto) 0.0 D-Dimer High Sensitivty 210 Anion Gap Estim Creat Clear Calc Estimated GFR POC Glucose Random Glucose Calcium Troponin I High Sens Urine Osmolality Ur Random Sodium Urine Creatinine COVID-19 ([facility]ERSON) Positive A COVID-19 Clin Com See Note 12/17/21 12/17/21 12/17/21 13:52 13:52 18:18 MCV MCH MCHC RDW Plt Count MPV Immature Gran % (Auto) Neut % (Auto) Lymph % (Auto) Bee % (Auto) Eos % (Auto) Baso % (Auto) Lymph # (Auto) Bee # (Auto) Eos # (Auto) Baso # (Auto) Abs Immat Gran (auto) Absolute Neuts (auto) Absolute Nucleated RBC Nucleated RBC % (auto) D-Dimer High Sensitivty Anion Gap 16 Estim Creat Clear Calc 67.0 Estimated GFR > 60 POC Glucose Random Glucose 126 H Calcium 10.5 H D Troponin I High Sens < 3.5 Urine Osmolality Ur Random Sodium 39.0 Urine Creatinine 33.71 COVID-19 ([facility]) COVID-19 Clin Com 12/17/21 12/17/21 12/17/21 18:18 20:30 20:57 MCV MCH MCHC RDW Plt Count MPV Immature Gran % (Auto) Neut % (Auto) Lymph % (Auto) Bee % (Auto) Eos % (Auto) Baso % (Auto) Lymph # (Auto) Bee # (Auto) Eos # (Auto) Baso # (Auto) Abs Immat Gran (auto) Absolute Neuts (auto) Absolute Nucleated RBC Nucleated RBC % (auto) D-Dimer High Sensitivty Anion Gap 14 Estim Creat Clear Calc 65.4 Estimated GFR > 60 POC Glucose 128 H Random Glucose 120 H Calcium 10.6 H Troponin I High Sens Urine Osmolality 432 Ur Random Sodium Urine Creatinine COVID-19 ([facility]ERSON) COVID-19 [facility] 12/17/21 12/18/21 12/18/21 22:55 02:45 06:23 MCV MCH MCHC RDW Plt Count MPV Immature Gran % (Auto) Neut % (Auto) Lymph % (Auto) Bee % (Auto) Eos % (Auto) Baso % (Auto) Lymph # (Auto) Bee # (Auto) Eos # (Auto) Baso # (Auto) Abs Immat Gran (auto) Absolute Neuts (auto) Absolute Nucleated RBC Nucleated RBC % (auto) D-Dimer High Sensitivty Anion Gap 13 15 14 Estim Creat Clear Calc 74.2 77.4 72.6 Estimated GFR > 60 > 60 > 60 POC Glucose Random Glucose 107 96 97 Calcium 9.7 D 9.6 10.0 Troponin I High Sens Urine Osmolality Ur Random Sodium Urine Creatinine COVID-19 ([facility]ERSON) COVID-19 [facility] 12/18/21 12/18/21 12/18/21 06:23 06:23 07:09 MCV 82.3 MCH 28.4 MCHC 34.5 RDW 13.6 Plt Count 345 MPV 8.6 L Immature Gran % (Auto) 0.8 H Neut % (Auto) 59.6 Lymph % (Auto) 28.7 Bee % (Auto) 9.5 Eos % (Auto) 0.6 Baso % (Auto) 0.8 Lymph # (Auto) 1.8 Bee # (Auto) 0.6 Eos # (Auto) 0.0 Baso # (Auto) 0.1 Abs Immat Gran (auto) 0.05 H Absolute Neuts (auto) 3.7 Absolute Nucleated RBC 0.000 Nucleated RBC % (auto) 0.0 D-Dimer High Sensitivty Anion Gap Cancelled Estim Creat Clear Calc Cancelled Estimated GFR Cancelled POC Glucose 94 Random Glucose Cancelled Calcium Cancelled Troponin I High Sens Urine Osmolality Ur Random Sodium Urine Creatinine COVID-19 (HEROSN) COVID-19 [facility] 12/18/21 12/18/21 11:09 11:37 MCV MCH MCHC RDW Plt Count MPV Immature Gran % (Auto) Neut % (Auto) Lymph % (Auto) Bee % (Auto) Eos % (Auto) Baso % (Auto) Lymph # (Auto) Bee # (Auto) Eos # (Auto) Baso # (Auto) Abs Immat Gran (auto) Absolute Neuts (auto) Absolute Nucleated RBC Nucleated RBC % (auto) D-Dimer High Sensitivty Anion Gap 14 Estim Creat Clear Calc 74.6 Estimated GFR > 60 POC Glucose 100 Random Glucose 104 Calcium 9.9 Troponin I High Sens Urine Osmolality Ur Random Sodium Urine Creatinine COVID-19 ([facility]ERSON) COVID-19 Clin Com Assessment and Plan (1) COVID-19 virus infection: Status: Acute (2) Acute hyponatremia: Status: Acute Plan 76-year-old male with history of hypertension, hyperlipidemia, diabetes, BPH presents to the hospital with various complaints above found to have hyponatremia and COVID-19 infection hyponatremia acute on chronic. looks to have component of chronic hyponatremia sodium trending down to 124 initially received NS seen by nephrology - c/w siadh; recommend to d/c IVF goal sodium by this evening 128-130 - BMP q.4 hours -TSH, am cortisol ordered Dyspnea Chronic since diagnosis of COVID-19 Chest x-ray negative, no leg edema saturating 100% on room air Ddimer 210 COVID-19 infection initially tested positive at the beginning of November asymptomatic, no hypoxia monitor respiratory symptoms hypertension continue hold irbesartan nephro rec nifedipine 30 mg daily monitor blood pressure hyperlipidemia continue statin diabetes Hold metformin Continue SSI, POCs BPH continue flomax DVT prophylaxis: Heparin subQ Attending: dr. corcoran Requires ongoing inpatient hospitalization given persistent hyponatremia and further workup Quality Stroke Does the patient have a stroke diagnosis?: No VTE Prior VTE?: No VTE Risk Level:: Medical - moderate - high VTE Device Contraindication: Treatment Not Indicated VTE Drug Contraindication: N/A - Med Ordered
[2021-12-18] MEDS: amLODIPine Besylate 2.5 MG TABLET PO (12:37)
[2021-12-18 14:58] LABS: Anion Gap 13 (12-20); Blood Urea Nitrogen 14 mg/dL (9-16); Calcium 9.5 mg/dL (8.4-10.2); Carbon Dioxide 20 mmol/L (22-29); Chloride 95 mmol/L (96-108); Creatinine Clr Calc Pharmacy 65.6; Estimated Glomerular Filt Rate > 60; Glucose Random 127 mg/dL (60-115); Potassium 4.3 mmol/L (3.3-5.1); Sodium 124 mmol/L (135-145)
[2021-12-18 16:15] LABS: Glucose, Whole Blood 117 mg/dL (60-115)
[2021-12-18] MEDS: Furosemide 20 MG/2 ML VIAL 10 MG IVPUSH (18:12)
[2021-12-18] MEDS: Urea 15 GM POWDER 30 GM PO (18:13)
[2021-12-18 19:20] LABS: Anion Gap 17 (12-20); Blood Urea Nitrogen 44 mg/dL (9-16); Calcium 10.8 mg/dL (8.4-10.2); Carbon Dioxide 23 mmol/L (22-29); Chloride 90 mmol/L (96-108); Creatinine Clr Calc Pharmacy 53.4; Estimated Glomerular Filt Rate > 60; Glucose Random 197 mg/dL (60-115); Potassium 4.5 mmol/L (3.3-5.1); Sodium 125 mmol/L (135-145)
[2021-12-18] MEDS: Insulin Lispro 100 UNIT/ML 3 ML VIAL SUBCUT (19:29)
[2021-12-18] MEDS: Tamsulosin HCL 0.4 MG CAPSULE PO (19:29)
[2021-12-18 20:29] LABS: Glucose, Whole Blood 136 mg/dL (60-115)
[2021-12-18 22:42] LABS: Anion Gap 14 (12-20); Blood Urea Nitrogen 45 mg/dL (9-16); Calcium 10.3 mg/dL (8.4-10.2); Carbon Dioxide 23 mmol/L (22-29); Chloride 92 mmol/L (96-108); Creatinine Clr Calc Pharmacy 65.6; Estimated Glomerular Filt Rate > 60; Glucose Random 92 mg/dL (60-115); Sodium 125 mmol/L (135-145)
[2021-12-19] MEDS: 0.9 % Sodium Chloride Flush 3 ML SYRINGE IVFLUSH ×4 (00:29→22:21)
[2021-12-19 02:42] LABS: Anion Gap 13 (12-20); Blood Urea Nitrogen 36 mg/dL (9-16); Calcium 10.1 mg/dL (8.4-10.2); Carbon Dioxide 24 mmol/L (22-29); Chloride 93 mmol/L (96-108); Creatinine Clr Calc Pharmacy 64.1; Estimated Glomerular Filt Rate > 60; Glucose Random 98 mg/dL (60-115); Potassium 4.2 mmol/L (3.3-5.1); Sodium 126 mmol/L (135-145)
[2021-12-19 03:19] VITALS: BP 123/92; PULSE 99; RESP 18; TEMP 36.8; O2SAT 100
[2021-12-19 07:16] LABS: Triglycerides 86 mg/dL
[2021-12-19 07:19] VITALS: BP 138/90; PULSE 108; RESP 18; TEMP 36.6; O2SAT 97
[2021-12-19 07:19] LABS: Glucose, Whole Blood 115 mg/dL (60-115)
--- NOTE | 2021-12-19 07:39 | P.PNNP_ITS ---
Subjective Subjective Date of Service: 12/19/21 Interval history: Chart Reviewed. Evens noted. Na = 126 meq/L his am. Repeat later this morning. Urine studies added. Patient denies n/v/d Physical Exam Vital Signs: Vital Signs: Last Vital Signs Temp 97.8 F 12/19/21 07:19 Pulse 108 H 12/19/21 07:19 Resp 18 12/19/21 07:19 BP 138/90 H 12/19/21 07:19 Pulse Ox 97 12/19/21 07:19 BMI result Body Mass Index 27.8 Const: General: cooperative, comfortable and no acute distress Orientati on/consciousness: patient oriented x3 HEENT: Head: Yes normocephalic Neck: Neck: Yes no JVD Resp: Auscultation: clear to auscultation bilaterally Cardio: Jugular venous distension: no JVD Rate: regular rate Rhythm: reg ular rhythm Heart sounds: S1 normal heart sound present and S2 normal heart sound present GI: Auscultation: normal bowel sounds Neuro: General: patient oriented x3 Extrem: General: Yes no clubbing, cyanosis or edema Objective Data Labs CBC & Chem 7: 12/18/21 06:23 12/19/21 02:18 Labs: Laboratory Results - last 24 hr 12/18/21 12/18/21 12/18/21 11:09 11:37 14:30 Sodium 124 L 124 L Potassium 4.7 4.3 Chloride 94 L 95 L Carbon Dioxide 21 L 20 L Anion Gap 14 13 BUN 12 14 Creatinine 0.73 0.83 Estim Creat Clear Calc 74.6 65.6 Estimated GFR > 60 > 60 POC Glucose 100 Random Glucose 104 127 H Calcium 9.9 9.5 Triglycerides 12/18/21 12/18/21 12/18/21 16:08 18:53 20:24 Sodium 125 L Potassium 4.5 Chloride 90 L Carbon Dioxide 23 Anion Gap 17 BUN 44 H D Creatinine 1.02 Estim Creat Clear Calc 53.4 Estimated GFR > 60 POC Glucose 117 H 136 H Random Glucose 197 H D Calcium 10.8 H D Triglycerides 12/18/21 12/19/21 12/19/21 22:14 02:18 06:41 Sodium 125 L 126 L Potassium 4.0 4.2 Chloride 92 L 93 L Carbon Dioxide 23 24 Anion Gap 14 13 BUN 45 H 36 H Creatinine 0.83 0.85 Estim Creat Clear Calc 65.6 64.1 Estimated GFR > 60 > 60 POC Glucose Random Glucose 92 D 98 Calcium 10.3 H 10.1 Triglycerides 86 12/19/21 07:08 Sodium Potassium Chloride Carbon Dioxide Anion Gap BUN Creatinine Estim Creat Clear Calc Estimated GFR POC Glucose 115 Random Glucose Calcium Triglycerides Procedures Date of Service Date of Service: 12/19/21 Assessment & Plan Assessment and plan (1) Acute hyponatremia: Status: Acute Plan #)Euvolemic hyponatremia COvid +, chronic pain, suspect infection and pain along with poor po intake and increased water consumption led to hyponatremia U-lytes consistent with elevted U-Osm also consistent with siadh. Plan to repeat U-lytes this am. Limit correction to 6-8 meq/L in next 24 hours. Would limit correction to 130-132 meq/L by tomorrow am. If overcorrection occurs, would start D5W and match rate of infusion to that of uop. Check S-Na q 6 hours. Would hold further IVF's. hypercalcemia workup added. Added urine studies to check for protein gap bp control with? nifedipine 30 mg xl daily. Time Spent With Patient Time: Total time spent is greater than 50% in coordination of care (as documented) at patient's floor/unit and/or counseling patient: Progress Note: Quality Stroke Does the patient have a stroke diagnosis?: No
[2021-12-19 07:43] LABS: TSH reflex Free T4 1.34 uIU/mL (0.32-4.0)
[2021-12-19 07:46] LABS: Anion Gap 17 (12-20); Blood Urea Nitrogen 29 mg/dL (9-16); Calcium 10.7 mg/dL (8.4-10.2); Carbon Dioxide 21 mmol/L (22-29); Chloride 93 mmol/L (96-108); Creatinine Clr Calc Pharmacy 70.7; Estimated Glomerular Filt Rate > 60; Glucose Random 105 mg/dL (60-115); Potassium 4.4 mmol/L (3.3-5.1); Sodium 127 mmol/L (135-145)
[2021-12-19 08:29] LABS: Cortisol Random 22.3 ug/dL
[2021-12-19] MEDS: Multivitamin TABLET 1 TAB PO (10:00)
[2021-12-19] MEDS: Heparin Sodium,Porcine 5,000 UNIT/ML VIAL 5000 UNIT SUBCUT ×2 (10:00→22:20)
[2021-12-19] MEDS: Atorvastatin Calcium 10 MG TABLET PO (10:01)
[2021-12-19] MEDS: Aspirin 81 MG TAB.CHEW PO (10:01)
[2021-12-19] MEDS: Cholecalciferol (Vitamin D3) 25 MCG TABLET 50 MCG PO (10:01)
[2021-12-19 11:14] VITALS: BP 150/82; PULSE 80; RESP 18; TEMP 36.6; O2SAT 99
[2021-12-19 11:19] LABS: Glucose, Whole Blood 165 mg/dL (60-115)
--- NOTE | 2021-12-19 11:59 | MHC.CM.PN ---
Per ROUNDS discussion, MD is still working on Patient's Na and he is not yet medically cleared for dc. Home/resume services is the goal and CM will continue to follow.
[2021-12-19] MEDS: amLODIPine Besylate 2.5 MG TABLET PO (12:04)
[2021-12-19] MEDS: Insulin Lispro 100 UNIT/ML 3 ML VIAL SUBCUT ×2 (12:04→22:20)
--- NOTE | 2021-12-19 12:13 | HO.PM.IMPN ---
Subjective Subjective Date of Service: 12/19/21 Interval History: seen and examined this morning follow up for hyponatremia reporting improvement in suffication feeling - primarily happens when he wakes up in the morning and is unable to fall back asleep. think it may be related to anxiety no chest pain, abdominal, pain, palpitations, nausea or vomiting Review of Systems Review of Systems: Yes all other systems are reviewed and are negative Constitutional Constitutional: Denies chills and Denies fever(s) Cardiovascular Cardiovascular: Denies chest pain, Denies palpitations and Reports dyspnea Respiratory Respiratory: Denies cough and Reports dyspnea Gastrointestinal Gastrointestinal: Denies abdominal pain, Denies diarrhea, Denies nausea and Denies vomiting Endocrine Endocrine: Denies palpitations Physical Exam Vital Signs: Vital Signs: Last Vital Signs Temp 97.8 F 12/19/21 11:14 Pulse 80 12/19/21 11:14 Resp 18 12/19/21 11:14 BP 150/82 H 12/19/21 11:14 Pulse Ox 99 12/19/21 11:14 BMI result Body Mass Index 27.8 Const: General: cooperative, comfortable, alert and awake Nutritional Appearance: average body habitus Resp: Effort & Inspection: normal respiratory effort, able to speak in complete sentences, no respiratory distress and no use of accessory muscles Auscultation: clear to auscultation bilaterally, no rales, no rhonchi and no wheezes Cardio: Rate: regular rate Heart sounds: S1 normal heart sound present and S2 normal heart sound present GI: Inspection: No distended Palpation (GI): not soft and nontender Extrem: Other: able to move all 4 extremities spontaneously General: Yes no pedal edema Objective Data Active Medications Acetaminophen (Acetaminophen 325 Mg Tablet) 650 mg PO Q6H PRN PRN Reason: Pain, Mild (Pain Scale 1-3) Amlodipine Besylate (Amlodipine Besylate 2.5 Mg Tablet) 2.5 mg PO DAILY@1200 JOHNATHAN; Protocol Last Admin: 12/19/21 12:04 Dose: 2.5 mg Documented by: LYDIA Aspirin (Aspirin 81 Mg Tab.Chew) 81 mg PO DAILY [facility] Last Admin: 12/19/21 10:01 Dose: 81 mg Documented by: LYDIA Atorvastatin Calcium (Atorvastatin Calcium 10 Mg Tablet) 10 mg PO DAILY [facility] Last Admin: 12/19/21 10:01 Dose: 10 mg Documented by: LYDIA Dextrose (Dextrose 50 % 25 Gm/50 Ml Syringe) 25 gm IVPUSH Q15M PRN; Protocol PRN Reason: per Hypoglycemia Standing Ord. Glucose (Glucose Gel 15 Gm Gel..Gram.) 15 gm PO Q15M PRN; Protocol PRN Reason: per Hypoglycemia Standing Ord. Heparin Sodium (Porcine) (Heparin Sodium,Porcine 5,000 Unit/Ml Vial) 5,000 unit SUBCUT Q12H [facility] Last Admin: 12/19/21 10:00 Dose: 5,000 unit Documented by: LYDIA Insulin Human Lispro (Insulin Lispro 100 Unit/Ml 3 Ml Vial) 0 unit SUBCUT QIDACHS [facility]; Protocol Last Admin: 12/19/21 12:04 Dose: 2 unit Documented by: LYDIA Melatonin (Melatonin 3 Mg Tablet) 3 mg PO BEDTIME PRN PRN Reason: Sleep Multivitamins/Vitamin C (Multivitamin Tablet) 1 tab PO DAILY [facility] Last Admin: 12/19/21 10:00 Dose: 1 tab Documented by: LYDIA Ondansetron HCl (Ondansetron Hcl 4 Mg/2 Ml Vial) 4 mg IVPUSH Q8H PRN PRN Reason: Nausea and Vomiting Pharmacy Consult (Consult Rx Perform Med Rec) 1 each MISCELLANE ONCE PRN PRN Reason: Consult order Sodium Chloride (0.9 % Sodium Chloride Flush 3 Ml Syringe) 3 ml IVFLUSH QSHIFT [facility] Last Admin: 12/19/21 10:00 Dose: 3 ml Documented by: LYDAI Tamsulosin HCl (Tamsulosin Hcl 0.4 Mg Capsule) 0.4 mg PO BEDTIME [facility] Last Admin: 12/18/21 19:29 Dose: 0.4 mg Documented by: REY Vitamin D (Cholecalciferol (Vitamin D3) 25 Mcg Tablet) 50 mcg PO DAILY [facility] Last Admin: 12/19/21 10:01 Dose: 50 mcg Documented by: LYDIA Labs CBC & Chem 7: 12/18/21 06:23 12/19/21 06:41 Labs: Laboratory Results - last 24 hr 12/17/21 12/17/21 12/17/21 13:52 20:57 22:55 Sodium 122 L 125 L 124 L Anion Gap Estim Creat Clear Calc Estimated GFR POC Glucose Random Glucose Calcium Triglycerides TSH Random Cortisol 12/18/21 12/18/21 12/18/21 02:45 06:23 06:23 Sodium 125 L 127 L Cancelled Anion Gap Estim Creat Clear Calc Estimated GFR POC Glucose Random Glucose Calcium Triglycerides TSH Random Cortisol 12/18/21 12/18/21 12/18/21 11:09 14:30 16:08 Sodium 124 L 124 L Anion Gap 13 Estim Creat Clear Calc 65.6 Estimated GFR > 60 POC Glucose 117 H Random Glucose 127 H Calcium 9.5 Triglycerides TSH Random Cortisol 12/18/21 12/18/21 12/18/21 18:53 20:24 22:14 Sodium 125 L 125 L Anion Gap 17 14 Estim Creat Clear Calc 53.4 65.6 Estimated GFR > 60 > 60 POC Glucose 136 H Random Glucose 197 H D 92 D Calcium 10.8 H D 10.3 H Triglycerides TSH Random Cortisol 12/19/21 12/19/21 12/19/21 02:18 06:41 06:41 Sodium 126 L Anion Gap 13 Estim Creat Clear Calc 64.1 Estimated GFR > 60 POC Glucose Random Glucose 98 Calcium 10.1 Triglycerides TSH 1.34 Random Cortisol 22.3 12/19/21 12/19/21 12/19/21 06:41 07:08 11:13 Sodium 127 L Anion Gap 17 Estim Creat Clear Calc 70.7 Estimated GFR > 60 POC Glucose 115 165 H Random Glucose 105 Calcium 10.7 H Triglycerides 86 TSH Random Cortisol Assessment and Plan (1) COVID-19 virus infection: Status: Acute (2) Acute hyponatremia: Status: Acute Plan 76-year-old male with history of hypertension, hyperlipidemia, diabetes, BPH presents to the hospital with various complaints above found to have hyponatremia and COVID-19 infection hyponatremia acute on chronic. looks to have component of chronic hyponatremia sodium up to 127 initially received NS, d/c 6/ seen by nephrology - labs c/w siadh TSH wnl - start fluid restriction - BMP q.6 hours - repeat urine lytes Dyspnea Chronic since diagnosis of COVID-19 Chest x-ray negative, no leg edema saturating 100% on room air Ddimer 210 COVID-19 infection initially tested positive at the beginning of November asymptomatic, no hypoxia monitor respiratory symptoms hypertension continue hold irbesartan nephro rec nifedipine 30 mg daily monitor blood pressure hyperlipidemia continue statin diabetes Hold metformin Continue SSI, POCs BPH continue flomax DVT prophylaxis: Heparin subQ Attending: dr. corcoran Requires ongoing inpatient hospitalization given persistent hyponatremia and further workup Quality Stroke Does the patient have a stroke diagnosis?: No VTE Prior VTE?: No VTE Risk Level:: Medical - moderate - high VTE Device Contraindication: Treatment Not Indicated VTE Drug Contraindication: N/A - Med Ordered
[2021-12-19 12:44] LABS: Osmolality Urine 662 mosm/kg (373-1093)
[2021-12-19 13:02] LABS: Anion Gap 17 (12-20); Calcium 10.4 mg/dL (8.4-10.2); Carbon Dioxide 19 mmol/L (22-29); Chloride 94 mmol/L (96-108); Creatinine Clr Calc Pharmacy 65.6; Estimated Glomerular Filt Rate > 60; Glucose Random 233 mg/dL (60-115); Potassium 4.5 mmol/L (3.3-5.1); Sodium 125 mmol/L (135-145)
[2021-12-19 13:10] LABS: Blood Urea Nitrogen 25 mg/dL (9-16)
[2021-12-19 14:57] VITALS: BP 143/65; PULSE 82; RESP 18; TEMP 36.7; O2SAT 99
[2021-12-19 15:58] LABS: Glucose, Whole Blood 131 mg/dL (60-115)
[2021-12-19 18:52] LABS: Anion Gap 16 (12-20); Blood Urea Nitrogen 23 mg/dL (9-16); Carbon Dioxide 20 mmol/L (22-29); Chloride 94 mmol/L (96-108); Creatinine Clr Calc Pharmacy 68.9; Estimated Glomerular Filt Rate > 60; Glucose Random 237 mg/dL (60-115); Potassium 4.4 mmol/L (3.3-5.1); Sodium 126 mmol/L (135-145)
[2021-12-19 18:59] VITALS: BP 161/86; PULSE 82; RESP 18; TEMP 36.2; O2SAT 100
[2021-12-19 19:50] LABS: Glucose, Whole Blood 155 mg/dL (60-115)
[2021-12-19] MEDS: Docusate Sodium 100 MG CAPSULE PO (22:21)
[2021-12-19] MEDS: Tamsulosin HCL 0.4 MG CAPSULE PO (22:21)
[2021-12-19] MEDS: Melatonin 3 MG TABLET PO (22:21)
[2021-12-19 23:06] VITALS: BP 128/75; PULSE 78; RESP 18; TEMP 36.7; O2SAT 99
[2021-12-20 03:30] LABS: Anion Gap 13 (12-20); Blood Urea Nitrogen 20 mg/dL (9-16); Calcium 10.2 mg/dL (8.4-10.2); Carbon Dioxide 24 mmol/L (22-29); Chloride 97 mmol/L (96-108); Creatinine Clr Calc Pharmacy 72.6; Estimated Glomerular Filt Rate > 60; Glucose Random 104 mg/dL (60-115); Potassium 3.9 mmol/L (3.3-5.1); Sodium 130 mmol/L (135-145)
[2021-12-20 03:52] LABS: Vitamin D 25-OH Total 62.5 ng/mL (>30)
[2021-12-20 04:00] VITALS: BP 119/68; PULSE 91; RESP 20; TEMP 36.4; O2SAT 94
[2021-12-20 06:23] LABS: Anion Gap 15 (12-20); Blood Urea Nitrogen 18 mg/dL (9-16); Carbon Dioxide 20 mmol/L (22-29); Chloride 99 mmol/L (96-108); Creatinine Clr Calc Pharmacy 78.9; Estimated Glomerular Filt Rate > 60; Glucose Random 112 mg/dL (60-115); Sodium 130 mmol/L (135-145)
[2021-12-20 07:41] LABS: Glucose, Whole Blood 116 mg/dL (60-115)
[2021-12-20 07:49] VITALS: BP 114/76; PULSE 90; RESP 20; TEMP 36; O2SAT 100
[2021-12-20] MEDS: Multivitamin TABLET 1 TAB PO (08:31)
[2021-12-20] MEDS: 0.9 % Sodium Chloride Flush 3 ML SYRINGE IVFLUSH (08:31)
[2021-12-20] MEDS: Cholecalciferol (Vitamin D3) 25 MCG TABLET 50 MCG PO (08:31)
[2021-12-20] MEDS: Aspirin 81 MG TAB.CHEW PO (08:31)
[2021-12-20] MEDS: Heparin Sodium,Porcine 5,000 UNIT/ML VIAL 5000 UNIT SUBCUT (08:31)
[2021-12-20] MEDS: NIFEdipine ER 30 MG TAB.ER.24 PO (08:31)
[2021-12-20] MEDS: Atorvastatin Calcium 10 MG TABLET PO (08:31)
--- NOTE | 2021-12-20 10:48 | PM.DS ---
DS: Providers Provider Date of Service: 12/20/21 Date of admission: 12/17/21 19:47 Date of discharge: 12/20/21 Primary care physician: Sandy Torrez MD Consults: 12/17/21 17:57 Consult to Nephrology Stat Consulting Provider: Darinel Dunn Reason for consultation: Hyponatremia 12/18/21 05:36 Consult to Nephrology Routine Consulting Provider: [facility] Reason for consultation: Hyponatremia Has provider been notified: No Attending physician on discharge: Sajan Woodard Discharging clinician: Clara Mart DS: Diagnosis Discharge Diagnosis (1) Acute hyponatremia: Status: Acute (2) COVID-19 virus infection: Status: Acute DS: Summary Hospital Course Hospital Course: From H&P on day of admission This is a 76-year-old male with past medical history of BPH, diabetes, HLD, HTN, who presents to the hospital with various complaints.? Patient is [place]-speaking and history is obtained with the help of an diplomatic interpreter/translator.? Patient reports that he developed shortness of breath, generalized weakness, low appetite about 1 week ago, he tested himself for COVID at home, he was positive.? Her since Wednesday his symptoms worsened.? He has had shortness of breath, headache, low appetite, as well as some near.? Patient also complaining of chest pain that is all over his chest, worse with breathing, patient denies any nausea or vomiting, no abdominal pain, he is constipated for the past 3 days, he reports chronic frequency of urine with no dysuria or urgency.? He denies any lower extremity edema.? He denies any numbness or tingling.? Patient reports that he has not been eating much, but has been drinking about 2-3 bottles of water daily.? On arrival to the ED patient hemodynamically stable with no significant abnormal vitals.? Satting 98% on room air Labs are significant for WBC count of 9.2, sodium of 122, glucose of 128, urine osmolality of 432, urine random sodium of 39, COVID-19 positive Chest x-ray is negative for any abnormality.? Patient will be admitted for hyponatremia Hospital course by problem Hyponatremia Patient was admitted to the hospital with initial sodium of 122. Initially he received gentle IV fluid but sodium trended down. 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 Patient was seen in consultation by Nephrology. Patient's sodium level gradually improved up to 130 on the day of discharge. Patient is recommended to maintain fluid restriction of 1.5 L daily. He is encouraged to drink 1 boost or Ensure daily to increase solute load. He should repeat labs on Wednesday. Hypertension Irbesartan was placed on hold initially. His Norvasc was continued. Nephrology recommended changing to nifedipine for improved blood pressure control, therefore his Norvasc was discontinued. He will be discharged with nifedipine. Norvasc and irbesartan have both been discontinued. He should call to schedule follow-up appointment with his PCP for close blood pressure monitoring. COVID-19 Patient initially tested positive for COVID-19 at the beginning of November. He was asymptomatic and had no evidence of hypoxia. No further treatment is indicated. Anxiety Patient reported episodes of anxiety which caused feelings of shortness of breath. He reported that he was able to control his anxiety with breathing techniques. He did not require any medication for management of anxiety. Time Spent with Patient Time attestation: Total time spent providing and/or coordinating discharge services: Discharge coordination time: Greater than 30 minutes Quality: Safe Use of Opioids Does Pt have an Active Cancer Diagnosis on the Problem List?: No Quality: Stroke Does the patient have a stroke diagnosis?: No Physical Exam Vital Signs: Vital Signs: Last Vital Signs Temp 96.8 F 12/20/21 07:49 Pulse 90 12/20/21 07:49 Resp 20 12/20/21 07:49 BP 114/76 12/20/21 07:49 Pulse Ox 100 12/20/21 07:49 BMI result Body Mass Index 27.8 Const: General: cooperative, comfortable, alert and awake Nutritional Appearance: average body habitus Resp: Effort & Inspection: normal respiratory effort, able to speak in complete sentences, no respiratory distress and no use of accessory muscles Auscultation: clear to auscultation bilaterally, no rales, no rhonchi and no wheezes Cardio: Rate: regular rate Heart sounds: S1 normal heart sound present and S2 normal heart sound present GI: Inspection: No distended Palpation (GI): not soft and nontender Extrem: Other: able to move all 4 extremities spontaneously General: Yes no pedal edema DS: Data Data Completed and Pending Labs on day of discharge: Laboratory Results - last 24 hr 12/19/21 12/19/21 12/19/21 11:13 12:09 12:09 Sodium Potassium Chloride Carbon Dioxide Anion Gap BUN Creatinine Estim Creat Clear Calc Estimated GFR POC Glucose 165 H Random Glucose Calcium Albumin 25-OH Vitamin D Total Urine Osmolality 662 Ur Random Sodium 25.0 12/19/21 12/19/21 12/19/21 12:42 15:53 18:11 Sodium 125 L 126 L Potassium 4.5 4.4 Chloride 94 L 94 L Carbon Dioxide 19 L 20 L Anion Gap 17 16 BUN 25 H 23 H Creatinine 0.83 0.79 Estim Creat Clear Calc 65.6 68.9 Estimated GFR > 60 > 60 POC Glucose 131 H Random Glucose 233 H D 237 H Calcium 10.4 H 10.0 Albumin 25-OH Vitamin D Total Urine Osmolality Ur Random Sodium 12/19/21 12/20/21 12/20/21 19:46 02:53 02:53 Sodium 130 L Potassium 3.9 Chloride 97 Carbon Dioxide 24 Anion Gap 13 BUN 20 H Creatinine 0.75 Estim Creat Clear Calc 72.6 Estimated GFR > 60 POC Glucose 155 H Random Glucose 104 D Calcium 10.2 Albumin 4.0 25-OH Vitamin D Total 62.5 Urine Osmolality Ur Random Sodium 12/20/21 12/20/21 06:02 07:26 Sodium 130 L Potassium 4.0 Chloride 99 Carbon Dioxide 20 L Anion Gap 15 BUN 18 H Creatinine 0.69 Estim Creat Clear Calc 78.9 Estimated GFR > 60 POC Glucose 116 H Random Glucose 112 Calcium 10.0 Albumin 25-OH Vitamin D Total Urine Osmolality Ur Random Sodium Discharge Plan Discharge Patient Disposition: Home, Self-Care Discharge Diagnosis: COVID 19 Hyponatremia Referrals: Maverick Sandoval MD [Physician] - 1 Week Sandy Torrez MD [Primary Care Provider] - 1 Week Discharge Medications: New nifedipine 30 mg Tablet Extended Release 24 Hr 30 mg PO DAILY 30 Days Qty: 30 0RF Protocol: Hold for SBP< HOLD for SBP < : 90 Continued cholecalciferol (vitamin D3) 50 mcg (2,000 unit) capsule 50 mcg PO DAILY 0RF aspirin 81 mg tablet,chewable 1 tab PO DAILY 0RF metformin 1,000 mg tablet 1,000 mg PO BID 0RF multivitamin Tablet 1 tab PO DAILY 0RF atorvastatin 10 mg tablet 10 mg PO DAILY 0RF tamsulosin [Flomax] 0.4 mg capsule 0.4 mg PO BEDTIME 0RF Farxiga 10 mg tablet 10 mg PO QAM 0RF Discontinued irbesartan 150 mg tablet 1 tab PO DAILY@1200 0RF amlodipine 2.5 mg tablet 2.5 mg PO DAILY@1200 0RF No Action (DME) walker Misc See Rx Instructions .ROUTE .MEDSUPPLY Qty: 1 0RF Rx Instructions: Folding Front wheeled walker with seat (DME) lancets 33 gauge misc See Rx Instructions gauge topical .MEDSUPPLY Qty: 100 0RF Rx Instructions: As directed (DME) OneTouch Verio test strips Strip See Rx Instructions strip Not Applicable BID Qty: 10 0RF Rx Instructions: As directed Discharge Orders: Discharge Order (Routine); Ordered 12/20/21 Ordered By: Clara Mart Activity on Discharge: As tolerated Stand Alone Forms: Patient Portal Discharge page Other Ambulatory Orders: Basic Metabolic Panel (Routine) Timeframe: 20211222 Facility: [facility] - Location: Laboratory Ordered By: Clara Mart Care Plan Goals: see below Health Concerns: hyponatremia anxiety COVID 19 Plan of Treatment: Stop taking Norvasc Stop taking irbesartan Start taking Nefedipine as prescribed for blood pressure sodium levels have improved. You should continue fluid restriction, only drink about 1.5 L of fluid per day recommend to drink a can of ensure or boost daily call to schedule follow up with PCP to monitor blood pressure and sodium levels have lab work re-checked on Wednesday anxiety has been controlled with breathing exercises Assessment: See above Discharge Date/Time: 12/20/21 13:12
[2021-12-20 11:06] LABS: Glucose, Whole Blood 194 mg/dL (60-115)
[2021-12-20] MEDS: Insulin Lispro 100 UNIT/ML 3 ML VIAL SUBCUT (11:26)
[2021-12-20 11:32] VITALS: BP 140/81; PULSE 98; RESP 20; TEMP 36.6; O2SAT 95
[2021-12-20 12:43] LABS: Anion Gap 16 (12-20); Blood Urea Nitrogen 19 mg/dL (9-16); Calcium 10.3 mg/dL (8.4-10.2); Carbon Dioxide 19 mmol/L (22-29); Chloride 97 mmol/L (96-108); Creatinine Clr Calc Pharmacy 70.7; Estimated Glomerular Filt Rate > 60; Glucose Random 138 mg/dL (60-115); Potassium 4.3 mmol/L (3.3-5.1); Sodium 128 mmol/L (135-145)
[2021-12-22 15:53] LABS: Calcium (PTHI) 9.8 mg/dL (8.6-10.3); PTHI 56 pg/mL (16-77)
[2021-12-22 22:32] LABS: Prot Elec - Albumin 3.9 g/dL (3.8-4.8); Prot Elec - Alpha1 0.2 g/dL (0.2-0.3); Prot Elec - Alpha2 0.7 g/dL (0.5-0.9); Prot Elec - Beta 1 0.5 g/dL (0.4-0.6); Prot Elec - Beta 2 0.3 g/dL (0.2-0.5); Prot Elec - Gamma 0.9 g/dL (0.8-1.7); Prot Elec - Total Protein 6.6 g/dL (6.1-8.1)
[2021-12-23 11:27] LABS: PEU-Protein Creat Ratio Rand 0.154 (0.022-0.128); PEU-Rand. Prot/Creat Ratio 154 mg/g creat (22-128); PEU-Random Ur. Gamma Globulin 21 %; PEU-Random Urine A1 Globulin 2 %; PEU-Random Urine A2 Globulin 13 %; PEU-Random Urine Albumin 38 %; PEU-Random Urine Beta Globulin 26 %; PEU-Random Urine Creatinine 91 mg/dL (20-320); PEU-Random Urine Protein 14 mg/dL (5-25)
[2021-12-23 14:32] LABS: IgA 210 mg/dL (70-320); IgG 1070 mg/dL (600-1540); IgM 26 mg/dL (50-300)
== END 2021-12-20 13:12 | disposition home or self-care (01) | DRG 643 ==
LOC: HO.ED 18:07 → HO.EDOVER 20:04 → HO.IMC 12-18 02:15
PROVIDERS: Internal Medicine Nephrology; Physician Assistant; Admitting Provider Internal Medicine; Emergency Provider Emergency Medicine; PCP Internal Medicine; Visit Provider Physician Assistant Medical
DX: E22.2 Syndrome of inappropriate secretion of antidiuretic hormone (principal); U07.1 COVID-19; F41.9 Anxiety disorder, unspecified; N40.0 Benign prostatic hyperplasia without lower urinary tract symptoms; E78.5 Hyperlipidemia, unspecified; G89.29 Other chronic pain; E11.9 Type 2 diabetes mellitus without complications; I10 Essential (primary) hypertension; Z96.653 Presence of artificial knee joint, bilateral; Z79.82 Long term (current) use of aspirin; Z79.84 Long term (current) use of oral hypoglycemic drugs; Z79.899 Other long term (current) drug therapy
CPT/HCPCS: 36415; 71045; 80048; 82040; 82306; 82533; 82570; 82784; 82947; 83935; 83970; 84156; 84165; 84166; 84300; 84443; 84478; 84484; 85025; 85379; 86334; 87635; 93005; 94640; 96360; 99285; J1940

== ENCOUNTER 2022-12-21 10:18 | Outpatient (REF) | payer OTHER, SELFPAY | END 2022-12-21 10:19 | disposition home or self-care (01) | LOC: HO.SH 10:18 | PROVIDERS: Visit Provider Registered Nurse | DX: Z01.118 Encounter for examination of ears and hearing with other abnormal findings (principal); H90.3 Sensorineural hearing loss, bilateral; H93.13 Tinnitus, bilateral | CPT/HCPCS: 92557; 92567 ==

== ENCOUNTER 2023-04-30 11:27 | Outpatient (REF) | payer MEDICARE, MEDICAID, SELFPAY ==
--- NOTE | ~2023-04-30 | XR_ITS ---
EXAMINATION: XR CHEST CLINICAL INFORMATION: Shortness of breath. COMPARISON: None available. TECHNIQUE: 2 views of the chest were obtained. FINDINGS: Heart and mediastinum within normal limits. Low lung volumes likely accounting for mild bibasilar atelectasis. No vascular congestion, consolidations or effusions. Degenerative changes. XR/XR chest 2V IMPRESSION: Low lung volumes, minor basilar atelectasis
== END 2023-04-30 11:28 | disposition home or self-care (01) ==
LOC: HO.HHCX 11:27
PROVIDERS: Visit Provider Registered Nurse
DX: R06.02 Shortness of breath (principal)
CPT/HCPCS: 71046

== ENCOUNTER 2023-05-03 08:31 | Outpatient (REF) | payer OTHER, SELFPAY ==
[2023-05-03 12:02] LABS: Alanine Aminotransferase 6 U/L (0-40); Albumin Level 4.2 g/dL (3.5-5.0); Alkaline Phosphatase 73 U/L (39-117); Anion Gap 15 (12-20); Aspartate Amino Transferase 10 U/L (5-37); Bilirubin Total 0.6 mg/dL (0.0-1.0); Blood Urea Nitrogen 18 mg/dL (9-16); Calcium 10.1 mg/dL (8.4-10.2); Carbon Dioxide 22 mmol/L (22-29); Chloride 102 mmol/L (96-108); Cholesterol 136 mg/dL (<200); Estimated Glomerular Filt Rate > 60; Glucose Random 110 mg/dL (60-115); HDL Cholesterol 66 mg/dL (>40); LDL Cholesterol Calculated 54 mg/dL (<100); Potassium 4.4 mmol/L (3.3-5.1); Sodium 135 mmol/L (135-145); Total Protein 7.3 g/dL (6.5-8.0); Triglycerides 83 mg/dL (<150)
[2023-05-03 12:47] LABS: Creatinine Urine 54.13 mg/dL; Microalbum/Creatinine Ratio Ur 14.7 ug/mg cr (<30)
== END 2023-05-03 08:32 | disposition home or self-care (01) ==
LOC: HO.HHCL 08:31
PROVIDERS: Visit Provider Registered Nurse
DX: E11.65 Type 2 diabetes mellitus with hyperglycemia (principal)
CPT/HCPCS: 36415; 80053; 80061; 82043; 82570

== ENCOUNTER 2023-05-04 13:43 | Outpatient (AMB) | payer OTHER, SELFPAY ==
--- NOTE | 2023-05-04 13:48 | A.OFFVIS_ITS ---
Intake Intake Visit Reasons: BPH/Hydrocele -follow up Intake Note: Patient is present for follow up BPH/hydrocele Urology Medications: tamsulosin, sildenafil Blood Thinner: aspirin PVR:269 ml's Dental Office Coordinator Required: Yes Dental Office Coordinator Language: Behavioral Technician Name: Maddi Information Interpreted: non-clinical & clinical Accompanied by: Daughter Allergies No Known Allergies [No Known Allergies*] Allergy (Verified 05/04/23 14:27) Medication List - Last Reconciled 05/04/23 by ROB Diaz- aspirin 1 tab PO DAILY atorvastatin 10 mg PO DAILY blood sugar diagnostic As directed cholecalciferol (vitamin D3) 50 mcg PO DAILY dapagliflozin propanediol (Farxiga) 10 mg PO QAM lancets As directed metformin 1,000 mg PO BID multivitamin 1 tab PO DAILY nifedipine ER 30 mg See Protocol PO DAILY 30 days sildenafil (Viagra) 100 mg PO DAILY PRN 90 days sitagliptin phosphate (Januvia) 25 mg PO QAM tamsulosin 0.4 mg PO BID 90 days walker Folding Front wheeled walker with seat HPI HPI Comments History of Present Illness Details Lei is a pleasant 77-year-old Swiss-speaking male patient of who was accompanied by his daughter at today's office visit. He has a past medical history of left-sided hydrocele, cataracts, hypercholesteremia, diabetes, ED, and hypertension. He presents to the office today for follow-up of his hydrocele, erectile dysfunction, and lower urinary tract symptoms. In discussion with the patient today reports to be doing and feeling well. He reports noting increased episodes of nocturia. He reports nocturia up to 4 times per night. He reports urinary frequency throughout the day however does not find this bothersome. He otherwise denies incontinence, hematuria, dysuria, foul smelling urine, changes to urinary stream, flank pain, fever, and or chills. In office urinalysis results reviewed with the patient today. PVR 269 mL. In discussion with the patient today reports compliance with Flomax at bedtime. Discussed at length causes and affects of incomplete bladder emptying. Discussed obtaining PSA and retroperitoneal ultrasound for further assessment evaluation. Patient with large left hydrocele however denies pain and is not interested in any intervention. He discusses previously following up with Dr. Thakkar in reviewing surgical options verses drainage in office verses surveillance monitoring. He wishes to continue with surveillance monitoring as he does not feel hydroceles bothersome. He is also requesting refill on Viagra. He otherwise denies any other bothersome issues or concerns at this time. [facility] Medical History Hydrocele Cataract Hypercholesteremia Diabetes Erectile dysfunction BPH (benign prostatic hyperplasia) Hypertension Surgical History Hx of colonoscopy History of bilateral knee replacement History of prostate surgery Family History Father Diabetes Mother Diabetes Social History Household Members: Spouse Housing: Apartment Are you a primary child care group leader to a significant other at home: No Do you presently have visiting nurse or other home services: No Alcohol intake: never Patient Tobacco Use Status: Never used Tobacco service: No Current occupational status: retired Current occupation: right handed Review of Systems Eyes Reports as per [facility] ENT Reports no additional complaints Card Reports as per [facility] Resp Reports no additional complaints GI Reports as per [facility] Reports as per HPI Neuro Reports no additional complaints Psych Reports no additional complaints Endo Reports as per HPI Physical Exam Const General: cooperative, healthy appearing, comfortable, no acute distress, well developed, alert and awake Orientation/consciousness: patient oriented x3 HEENT Head: Yes normal to inspection, Yes normocephalic and Yes atraumatic Ears: hearing grossly normal bilaterally Eyes General: appearance normal, both eyes and all related structures Neck Neck: Yes normal visual inspection and Yes trachea midline Chest Chest palpation & inspection: normal inspection of the chest Resp Effort & Inspection: normal respiratory effort and able to speak in complete sentences Cardio Rate: regular rate GI Inspection: Yes normal to inspection General: Yes no CVA tenderness Scrotum: Hydrocele present (large) on the left Back/Spine/Pelvis Back: no CVA tenderness Skin General skin exam: no rashes or lesions noted Neuro General: patient oriented x3 Extrem General: Yes normal to inspection Psych Appearance: grossly normal and well kempt Mental Status: mental status grossly normal Speech and movement: Normal speech and movement present and Clear speech present Affect: normal affect Attitude: cooperative Thought process: Normal thought process present Thought content: Normal thought content present Insight: Fair insight present (Psych) Judgement: Fair judgement present (Psych) Office Procedures Post Void Residual Post Residual Void Post Void Residual (PVR): [id number] Void Residual by ultrasound Results AMB Urinalysis, Automated UA Leukoctes 0 Mariluz/uL Last Edit by [employer] on 05/04/23 14:15 UA Nitrite Negative Last Edit by [employer] on 05/04/23 14:15 UA Urobilinogen 0.2 mg/dL Last Edit by [employer] on 05/04/23 14:15 UA Protein 0 mg/dL Last Edit by [employer] on 05/04/23 14:15 UA pH 6.0 Last Edit by [employer] on 05/04/23 14:15 UA Blood 0 Dharmesh/uL Last Edit by [employer] on 05/04/23 14:15 UA Specific Frederick 1.010 Last Edit by [employer] on 05/04/23 14:15 UA Ketone Negative Last Edit by [employer] on 05/04/23 14:15 UA Bilirubin 0 mg/dL Last Edit by [employer] on 05/04/23 14:15 UA Glucose 100 mg/dL Last Edit by [employer] on 05/04/23 14:15 Results Reviewed Results Reviewed: Laboratory Last Values Urine pH (Auto) 6.0 05/04/23 13:57 Specific Frederick (Auto) 1.010 05/04/23 13:57 Urine Protein (Auto) 0 mg/dL 05/04/23 13:57 Glucose (UA)(Auto) 100 mg/dL 05/04/23 13:57 Urine Ketones (Auto) Negative 05/04/23 13:57 Urine Blood (Auto) 0 Dharmesh/uL 05/04/23 13:57 Urine Nitrite (Auto) Negative 05/04/23 13:57 Urine Bilirubin (Auto) 0 mg/dL 05/04/23 13:57 Urine Urobilinogen (Auto) 0.2 mg/dL 05/04/23 13:57 Leukocyte Esterase (Auto) 0 Mariluz/uL 05/04/23 13:57 Assessment & Plan Assessment & Plan (1) Incomplete bladder emptying: Code(s): R33.9 - Retention of urine, unspecified (2) Nocturia: Code(s): R35.1 - Nocturia Plan In office urinalysis results reviewed with the patient today; as noted above. PVR 269 mL. Discussed at length potential causes and affects of incomplete bladder emptying. Will increase Flomax to 0.4 mg b.i.d. Discussed possible near future in office cystoscopy for further assessment evaluation Will obtain retroperitoneal ultrasound for further assessment evaluation Will obtain PSA for further assessment evaluation. Discussed importance of limiting fluids 2-3 hours prior to bed to decrease episodes of nocturia. Refill provided on PRN Sildenafil Discussed attempting to sit when voiding to assist with incomplete bladder emptying Discussed importance of managing diabetes for improvement in lower urinary tract symptoms as well as overall health and well-being Follow-up in 6 weeks with imaging and labs to be completed prior; PVR at next office visit; or sooner with any issues, concerns, and or questions. Orders: Orders AMB Post Void Residual by ultrasound Today N40.0 - Benign prostatic hyperplasia without lower urinary tract symptoms US retroperitoneal comp Today N52.9 - Male erectile dysfunction, unspecified, R33.9 - Retention of urine, unspecified, R35.1 - Nocturia Prostate Specific Antigen Today N40.0 - Benign prostatic hyperplasia without lower urinary tract symptoms AMB Urinalysis Automated Today Z13.9 - Encounter for screening, unspecified Medications: Changed From tamsulosin 0.4 mg PO DAILY 90 days 90 caps 1RF To tamsulosin 0.4 mg PO BID 90 days 180 caps 1RF From sildenafil (Viagra) administer 30 minutes to 4 hours before activity 100 mg PO DAILY 30 days PRN 30 tabs 2RF erectile dysfunction N52.9 - Male erectile dysfunction, unspecified To sildenafil (Viagra) administer 30 minutes to 4 hours before activity [facility] [id number] [facility] Group [id number] 100 mg PO DAILY 90 days PRN 20 tabs 1RF erectile dysfunction N52.9 - Male erectile dysfunction, unspecified Patient Instructions: The patient had an opportunity to ask questions regarding the treatment plan. All questions were answered. Physical exam, labs, and imaging were discussed and reviewed in detail. As well as risks, benefits, and discussion of treatment choices. No major barriers to understanding were identified. The patient expressed understanding and agreement with the above treatment plan. The patient was made aware they should contact our office by phone for worsening of their current condition, the appearance of new symptoms, or with any questions or concerns. Compliance is encouraged with any medications and follow up testing that is ordered. It is a privilege to be allowed the opportunity to participate in? your urological care.? Again, if you have any questions or concerns If you have any questions or concerns please do not hesitate to contact me. The office is [phone]. This note is constructed using voice recognition software. While every effort has been made to ensure accuracy quality assurance intern errors may have been included. Yours sincerely, KAREN Diaz Coding Level of Care Code Est Pt Level 4 (57343) Diagnoses Incomplete bladder emptying R33.9 Nocturia R35.1 CPT Codes Post Residual Void - PVR CPT Code: 46993-Ufpr Void Residual by ultrasound ([id number])
== END 2023-05-04 14:41 | disposition home or self-care (01) ==
PROVIDERS: PCP Internal Medicine; Visit Provider Nurse Practitioner Family
DX: R33.9 Retention of urine, unspecified (principal); R35.1 Nocturia; Z13.9 Encounter for screening, unspecified
CPT/HCPCS: 99214

== ENCOUNTER → 2023-05-04 13:43 | Outpatient (BNVA) | payer OTHER, SELFPAY | PROVIDERS: PCP Internal Medicine; Visit Provider Nurse Practitioner Family | DX: N40.0 Benign prostatic hyperplasia without lower urinary tract symptoms (principal); R35.1 Nocturia; R33.9 Retention of urine, unspecified; E11.69 Type 2 diabetes mellitus with other specified complication; N52.1 Erectile dysfunction due to diseases classified elsewhere | CPT/HCPCS: 51798; 81003; 99212 ==

== ENCOUNTER 2023-06-01 09:48 | Outpatient (REF) | payer OTHER, SELFPAY ==
--- NOTE | ~2023-06-01 | US_ITS ---
EXAMINATION: US RETROPERITONEAL COMPLETE (RENAL) CLINICAL INFORMATION: Nocturia. COMPARISON: None available. TECHNIQUE: Real-time imaging of the kidneys and bladder. FINDINGS: RIGHT KIDNEY: 10.0 x 5.4 x 4.4 cm (SAG x AP x TRV). The kidney is normal in size, contour, and echogenicity. Renal cortical thickness is normal. No calculi or focal parenchymal lesions. No hydronephrosis. LEFT KIDNEY: 10.6 x 5.7 x 4.5 cm (SAG x AP x TRV). The kidney is normal in size, contour, and echogenicity. Renal cortical thickness is normal. Question left lower pole calcified vessel. No definite renal calculi. 1.6 x 1.9 x 1.4 cm midpole cyst. No hydronephrosis. BLADDER: Well distended and normal. Bilateral ureteral jets are demonstrated. Prevoid bladder volume is 218 mL. Postvoid bladder volume is 177 mL. Prostate measured 18 mm. US/US retroperitoneal comp IMPRESSION: 177 mL post void residual. Left midpole renal cyst.
== END 2023-06-01 09:49 | disposition home or self-care (01) ==
LOC: HO.US 09:48
PROVIDERS: Visit Provider Nurse Practitioner Family
DX: R35.1 Nocturia (principal); R33.9 Retention of urine, unspecified; N52.9 Male erectile dysfunction, unspecified
CPT/HCPCS: 76770

== ENCOUNTER 2023-06-15 10:44 | Outpatient (AMB) | payer OTHER, SELFPAY ==
--- NOTE | 2023-06-15 11:11 | A.OFFVIS_ITS ---
Intake Intake Visit Reasons: 6w/US/PVR Intake Note: Patient is present for follow up BPH/hydrocele/ultrasound (imaging 06/01/23) Urology Medications: tamsulosin, sildenafil Blood Thinner: aspirin PVR: Dry Wall Plasterer Required: Yes Dry Wall Plasterer Language: Manager Of Global Name: Maddi EtienneKellPadmini Information Interpreted: non-clinical & clinical Accompanied by: Daughter Allergies No Known Allergies [No Known Allergies*] Allergy (Verified 06/15/23 11:43) Medication List - Last Reconciled 06/15/23 by ROB Diaz- aspirin 1 tab PO DAILY atorvastatin 10 mg PO DAILY blood sugar diagnostic As directed cholecalciferol (vitamin D3) 50 mcg PO DAILY dapagliflozin propanediol (Farxiga) 10 mg PO QAM lancets As directed metformin 1,000 mg PO BID multivitamin 1 tab PO DAILY nifedipine ER 30 mg See Protocol PO DAILY 30 days sildenafil (Viagra) 100 mg PO DAILY PRN 90 days sitagliptin phosphate (Januvia) 25 mg PO QAM terazosin 10 mg (2 x 5 mg) PO BEDTIME 30 days walker Folding Front wheeled walker with seat HPI HPI Comments History of Present Illness Details Lei is a pleasant 78-year-old Faroese-speaking male patient of who was accompanied by his daughter at today's office visit. He has a past medical history of left-sided hydrocele, cataracts, hypercholesteremia, diabetes, ED, and hypertension. He presents to the office today for follow-up of his hydrocele, erectile dysfunction, and lower urinary tract symptoms. Of note, patient was seen approximately 6 weeks ago which time a retroperitoneal ultrasound was ordered, a PSA, and patient's Flomax was increased to 0.4 mg b.i.d.. In discussion with the patient today reports to be doing and feeling well. Recent retroperitoneal ultrasound results reviewed with the patient and his daughter today. Right kidney with no lesions, and or hydronephrosis. Left kidney with question left lower pole calcified vessel. No definite renal calculi. 1.6 x 1.9 x 1.4 cm mid pole cyst. No hydronephrosis. The bladder is well distended and normal. Bilateral ureteral jets are demonstrated. Pre void bladder volume is approximately 220 mL. Postvoid bladder volume is approximately 180 mL. Prostate measures approximately 18 mL. PSA ordered at last office visit however patient reports he forgot to complete PSA testing. In discussion with the patient today reports compliance with Flomax 0.4 mg b.i.d.. He continues to experience urinary frequency, and nocturia. In office uri nalysis results reviewed with the patient and his daughter today. PVR 568 mL. Discussed at length causes and affects of incomplete bladder emptying. Discussed CIC at least 2 times per day to assist with incomplete bladder emptying. Discussed possible near future in office cystoscopy if symptoms persist and/or worsen. Discussed and stressed the importance of obtaining PSA for further assessment evaluation. He denies hematuria, dysuria, foul-smelling urine, changes to urinary stream, flank pain, fever, and or chills. Patient with large left hydrocele however denies pain and is not interested in any intervention at this time. He discusses previously following up with Dr. Thakkar in reviewing surgical options verses drainage in office verses surveillance monitoring. He wishes to continue with surveillance monitoring as he does not feel hydroceles bothersome. He otherwise denies any other bothersome issues or concerns at this time. [facility] Medical History Hydrocele Cataract Hypercholesteremia Diabetes Erectile dysfunction BPH (benign prostatic hyperplasia) Hypertension Surgical History Hx of colonoscopy History of bilateral knee replacement History of prostate surgery Family History Father Diabetes Mother Diabetes Social History Household Members: Spouse Housing: Apartment Are you a primary personal care aide to a significant other at home: No Do you presently have visiting nurse or other home services: No Alcohol intake: never Patient Tobacco Use Status: Never used Tobacco service: No Current occupational status: retired Current occupation: right handed Review of Systems Eyes Reports as per HPI ENT Reports no additional complaints Card Reports as per HPI Resp Reports no additional complaints GI Reports as per HPI Reports as per HPI Neuro Reports no additional complaints Psych Reports no additional complaints Endo Reports as per HPI Physical Exam Const General: cooperative, healthy appearing, comfortable, no acute distress, well developed, alert and awake Orientation/consciousness: patient oriented x3 HEENT Head: Yes normal to inspection, Yes normocephalic and Yes atraumatic Ears: hearing grossly normal bilaterally Eyes General: appearance normal, both eyes and all related structures Neck Neck: Yes normal visual inspection and Yes trachea midline Chest Chest palpation & inspection: normal inspection of the chest Resp Effort & Inspection: normal respiratory effort and able to speak in complete sentences Cardio Rate: regular rate GI Inspection: Yes normal to inspection General: Yes no CVA tenderness Scrotum: Hydrocele present (large) on the left Back/Spine/Pelvis Back: no CVA tenderness Skin General skin exam: no rashes or lesions noted Neuro General: patient oriented x3 Extrem General: Yes normal to inspection Psych Appearance: grossly normal and well kempt Mental Status: mental status grossly normal Speech and movement: Normal speech and movement present and Clear speech present Affect: normal affect Attitude: cooperative Thought process: Normal thought process present Thought content: Normal thought content present Insight: Fair insight present (Psych) Judgement: Fair judgement present (Psych) Office Procedures Post Void Residual Post Residual Void Post Void Residual (PVR): 568 [id number] Void Residual by ultrasound Results AMB Urinalysis, Automated UA Leukoctes 0 Mariluz/uL Last Edit by [employer] on 06/15/23 12:13 UA Nitrite Negative Last Edit by [employer] on 06/15/23 12:13 UA Urobilinogen 0.2 mg/dL Last Edit by [employer] on 06/15/23 12:13 UA Protein 0 mg/dL Last Edit by [employer] on 06/15/23 12:13 UA pH 5.5 Last Edit by [employer] on 06/15/23 12:13 UA Blood 10 Dharmesh/uL Last Edit by [employer] on 06/15/23 12:13 UA Specific Malcolm 1.015 Last Edit by [employer] on 06/15/23 12:13 UA Ketone Negative Last Edit by [employer] on 06/15/23 12:13 UA Bilirubin 0 mg/dL Last Edit by [employer] on 06/15/23 12:13 UA Glucose 0 mg/dL Last Edit by [employer] on 06/15/23 12:13 Results Reviewed Results Reviewed: Laboratory Last Values Urine pH (Auto) 5.5 06/15/23 11:17 Specific Malcolm (Auto) 1.015 06/15/23 11:17 Urine Protein (Auto) 0 mg/dL 06/15/23 11:17 Glucose (UA)(Auto) 0 mg/dL 06/15/23 11:17 Urine Ketones (Auto) Negative 06/15/23 11:17 Urine Blood (Auto) 10 Dharmesh/uL 06/15/23 11:17 Urine Nitrite (Auto) Negative 06/15/23 11:17 Urine Bilirubin (Auto) 0 mg/dL 06/15/23 11:17 Urine Urobilinogen (Auto) 0.2 mg/dL 06/15/23 11:17 Leukocyte Esterase (Auto) 0 Mariluz/uL 06/15/23 11:17 Date of Service: 06/01/23 EXAMINATION: US RETROPERITONEAL COMPLETE (RENAL) FINDINGS: RIGHT KIDNEY: 10.0 x 5.4 x 4.4 cm (SAG x AP x TRV). The kidney is normal in size, contour, and echogenicity. Renal cortical thickness is normal. No calculi or focal parenchymal lesions. No hydronephrosis. LEFT KIDNEY: 10.6 x 5.7 x 4.5 cm (SAG x AP x TRV). The kidney is normal in size, contour, and echogenicity. Renal cortical thickness is normal. Question left lower pole calcified vessel. No definite renal calculi. 1.6 x 1.9 x 1.4 cm midpole cyst. No hydronephrosis. BLADDER: Well distended and normal. Bilateral ureteral jets are demonstrated. Prevoid bladder volume is 218 mL. Postvoid bladder volume is 177 mL. Prostate measured 18 mm. IMPRESSION: 177 mL post void residual. Left midpole renal cyst. Assessment & Plan Assessment & Plan (1) Incomplete bladder emptying: Code(s): R33.9 - Retention of urine, unspecified (2) Nocturia: Code(s): R35.1 - Nocturia (3) Renal cyst: Code(s): N28.1 - Cyst of kidney, acquired (4) Hydrocele: Code(s): N43.3 - Hydrocele, unspecified Plan In office urinalysis results reviewed with the patient today; as noted above. PVR 568mL. Recent retroperitoneal ultrasound results reviewed with the patient and his daughter today; as noted above Will continue with surveillance monitoring of renal cyst and hydrocele Discussed at length potential causes and affects of incomplete bladder emptying. Stop Flomax Start terazosin 5 mg x 2 weeks then increase to 10 mg daily. Discussed possible near future in office cystoscopy for further assessment frederic estebanramesh Discussed importance of obtaining PSA for further assessment evaluation. Discussed attempting to sit when voiding to assist with incomplete bladder emptying; discussed double voiding Discussed CIC at least 2 times per day; however patient declines at this time. Discussed importance of managing diabetes for improvement in lower urinary tract symptoms as well as overall health and well-being Follow-up in 6 weeks with lab to be completed prior; PVR at next office visit; or sooner with any issues, concerns, and or questions. Orders: Orders AMB Urinalysis Automated Today Z13.9 - Encounter for screening, unspecified AMB Post Void Residual by ultrasound Today R35.1 - Nocturia Medications: New terazosin Start with 5mg at HS times 2 weeks then increase dose to 10mg at HS there after 10 mg (2 x 5 mg) PO BEDTIME 30 days 60 caps 1RF N40.1 - Benign prostatic hyperplasia with lower urinary tract symptoms, R35.0 - Frequency of micturition Discontinued tamsulosin Discontinued Reason: Doctor's Order 0.4 mg PO BID 90 days 180 caps 1RF Patient Instructions: The patient had an opportunity to ask questions regarding the treatment plan. All questions were answered. Physical exam, labs, and imaging were discussed and reviewed in detail. As well as risks, benefits, and discussion of treatment choices. No major barriers to understanding were identified. The patient expressed understanding and agreement with the above treatment plan. The patient was made aware they should contact our office by phone for worsening of their current condition, the appearance of new symptoms, or with any questions or concerns. Compliance is encouraged with any medications and follow up testing that is ordered. It is a privilege to be allowed the opportunity to participate in? your urological care.? Again, if you have any questions or concerns If you have any questions or concerns please do not hesitate to contact me. The office is [phone]. This note is constructed using voice recognition software. While every effort has been made to ensure accuracy film librarian errors may have been included. Yours sincerely, KAREN Diaz Coding Level of Care Code Est Pt Level 4 (73228) Diagnoses Incomplete bladder emptying R33.9 Nocturia R35.1 Renal cyst N28.1 Hydrocele N43.3 CPT Codes Post Residual Void - PVR CPT Code: 65294-Kleu Void Residual by ultrasound ([id number])
== END 2023-06-15 11:59 | disposition home or self-care (01) ==
PROVIDERS: PCP Registered Nurse; Visit Provider Nurse Practitioner Family
DX: R33.9 Retention of urine, unspecified (principal); R35.1 Nocturia; N28.1 Cyst of kidney, acquired; N43.3 Hydrocele, unspecified
CPT/HCPCS: 99214

== ENCOUNTER → 2023-06-15 10:44 | Outpatient (BNVA) | payer OTHER, SELFPAY | PROVIDERS: PCP Registered Nurse; Visit Provider Nurse Practitioner Family | DX: R33.9 Retention of urine, unspecified (principal); R35.1 Nocturia; N28.1 Cyst of kidney, acquired; N43.3 Hydrocele, unspecified | CPT/HCPCS: 51798; 81003; 99212 ==

== ENCOUNTER 2023-06-16 10:25 | Outpatient (REF) | payer OTHER, SELFPAY ==
[2023-06-16 12:27] LABS: Prostate Specific Antigen 2.33 ng/mL (<0.05-4.0)
== END 2023-06-16 10:26 | disposition home or self-care (01) ==
LOC: HO.HHCL 10:25
PROVIDERS: Visit Provider Nurse Practitioner Family
DX: Z12.5 Encounter for screening for malignant neoplasm of prostate (principal); N40.0 Benign prostatic hyperplasia without lower urinary tract symptoms
CPT/HCPCS: 36415; 84153

== ENCOUNTER 2023-07-27 10:27 | Outpatient (AMB) | payer OTHER, SELFPAY ==
--- NOTE | 2023-07-27 10:36 | A.OFFVIS_ITS ---
Intake Intake Visit Reasons: 6 weeks f/u with PVR & PSA Intake Note: Patient is present for follow up BPH, PSA results (psa 2.33) Urology Medications: terazosin, sildenafil Blood Thinner: aspirin PVR: 180ml's Drop Tester Required: Yes Drop Tester Language: Indian Information Interpreted: non-clinical & clinical Accompanied by: Daughter Allergies No Known Allergies [No Known Allergies*] Allergy (Verified 07/27/23 11:12) Medication List - Last Reconciled 07/27/23 by ROB Diaz- aspirin 1 tab PO DAILY atorvastatin 10 mg PO DAILY blood sugar diagnostic As directed cholecalciferol (vitamin D3) 50 mcg PO DAILY dapagliflozin propanediol (Farxiga) 10 mg PO QAM lancets As directed metformin 1,000 mg PO BID multivitamin 1 tab PO DAILY nifedipine ER 30 mg See Protocol PO DAILY 30 days sildenafil (Viagra) 100 mg PO DAILY PRN 90 days sitagliptin phosphate (Januvia) 25 mg PO QAM terazosin 10 mg (2 x 5 mg) PO BEDTIME 30 days walker Folding Front wheeled walker with seat HPI HPI Comments History of Present Illness Details Lei is a pleasant 78-year-old Indian-speaking male patient of Dr. Torrez who was accompanied by his daughter at today's office visit. He has a past medical history of left-sided hydrocele, cataracts, hypercholesteremia, diabetes, ED, and hypertension. He presents to the office today for follow-up of his hydrocele, erectile dysfunction, and lower urinary tract symptoms. Of note, patient was seen approximately 6 weeks ago at which time he was started on terazosin for incomplete bladder emptying. During last office visit postvoid residuals noted to be approximately 570 mL PVR today 180 mL. Previous workup has included a retroperitoneal ultrasound noting right kidney with no lesions, and or hydronephrosis. Left kidney with question left lower pole calcified vessel. No definite renal calculi. 1.6 x 1.9 x 1.4 cm mid pole cyst. No hydronephrosis. The bladder is well distended and normal. Bilateral ureteral jets are demonstrated. Pre void bladder volume is approximately 220 mL. Postvoid bladder volume is approximately 180 mL. Prostate measures approximately 18 mL. PSA 06/10--2.3. He had previously trialed Flomax however increased PVRs continued. Discussed possible near future in office cystoscopy if symptoms worsen as well as possible near future CIC if PVRs increase. When asked he currently denies any bothersome urinary issues or concerns. He has a history of a large left hydrocele however will continue with surveillance monitoring as he does not find this bothersome in does not wish to undergo in office drainage and or surgical intervention. When asked he denies hematuria, dysuria, foul-smelling urine, changes to urinary stream, flank pain, fever, and or chills. He otherwise denies any other bothersome issues or concerns at this time. [facility] Medical History Hydrocele Cataract Hypercholesteremia Diabetes Erectile dysfunction BPH (benign prostatic hyperplasia) Hypertension Surgical History Hx of colonoscopy History of bilateral knee replacement History of prostate surgery Family History Father Diabetes Mother Diabetes Social History Household Members: Spouse Housing: Apartment Are you a primary occasional caregiver to a significant other at home: No Do you presently have visiting nurse or other home services: No Alcohol intake: never Patient Tobacco Use Status: Never used Tobacco service: No Current occupational status: retired Current occupation: right handed Review of Systems Eyes Reports as per [facility] ENT Reports no additional complaints Card Reports as per [facility] Resp Reports no additional complaints GI Reports as per [facility] Reports as per [facility] Neuro Reports no additional complaints Psych Reports no additional complaints Endo Reports as per HPI Physical Exam Const General: cooperative, healthy appearing, comfortable, no acute distress, well developed, alert and awake Orientation/consciousness: patient oriented x3 HEENT Head: Yes normal to inspection, Yes normocephalic and Yes atraumatic Ears: hearing grossly normal bilaterally Eyes General: appearance normal, both eyes and all related structures Neck Neck: Yes normal visual inspection and Yes trachea midline Chest Chest palpation & inspection: normal inspection of the chest Resp Effort & Inspection: normal respiratory effort and able to speak in complete sentences Cardio Rate: regular rate GI Inspection: Yes normal to inspection General: Yes no CVA tenderness Scrotum: Hydrocele present (large) on the left Back/Spine/Pelvis Back: no CVA tenderness Skin General skin exam: no rashes or lesions noted Neuro General: patient oriented x3 Extrem General: Yes normal to inspection Psych Appearance: grossly normal and well kempt Mental Status: mental status grossly normal Speech and movement: Normal speech and movement present and Clear speech present Affect: normal affect Attitude: cooperative Thought process: Normal thought process present Thought content: Normal thought content present Insight: Fair insight present (Psych) Judgement: Fair judgement present (Psych) Office Procedures Post Void Residual Post Residual Void Post Void Residual (PVR): 180 [id number] Void Residual by ultrasound Results AMB Urinalysis, Automated UA Leukoctes 0 Mariluz/uL Last Edit by SRE [place] - 2 on 07/27/23 10:57 UA Nitrite Negative Last Edit by SRE [place] - 2 on 07/27/23 10:57 UA Urobilinogen 0.2 mg/dL Last Edit by SRE [place] - 2 on 07/27/23 10:57 UA Protein 0 mg/dL Last Edit by SRE [place] - 2 on 07/27/23 10:57 UA pH 5.5 Last Edit by SRE [place] - 2 on 07/27/23 10:57 UA Blood 0 Dharmesh/uL Last Edit by SRE [place] - 2 on 07/27/23 10:57 UA Specific [place] 1.010 Last Edit by SRE [place] - 2 on 07/27/23 10:57 UA Ketone Negative Last Edit by SRE [place] - 2 on 07/27/23 10:57 UA Bilirubin 0 mg/dL Last Edit by SRE [place] - 2 on 07/27/23 10:57 UA Glucose 1000 mg/dL Last Edit by SRE [place] - 2 on 07/27/23 10:57 Results Reviewed Results Reviewed: Laboratory Last Values Urine pH (Auto) 5.5 07/27/23 10:41 Specific [place] (Auto) 1.010 07/27/23 10:41 Urine Protein (Auto) 0 mg/dL 07/27/23 10:41 Glucose (UA)(Auto) 1000 mg/dL 07/27/23 10:41 Urine Ketones (Auto) Negative 07/27/23 10:41 Urine Blood (Auto) 0 Dharmesh/uL 07/27/23 10:41 Urine Nitrite (Auto) Negative 07/27/23 10:41 Urine Bilirubin (Auto) 0 mg/dL 07/27/23 10:41 Urine Urobilinogen (Auto) 0.2 mg/dL 07/27/23 10:41 Leukocyte Esterase (Auto) 0 Mariluz/uL 07/27/23 10:41 Date of Service: 06/01/23 EXAMINATION: US RETROPERITONEAL COMPLETE (RENAL) FINDINGS: RIGHT KIDNEY: 10.0 x 5.4 x 4.4 cm (SAG x AP x TRV). The kidney is normal in size, contour, and echogenicity. Renal cortical thickness is normal. No calculi or focal parenchymal lesions. No hydronephrosis. LEFT KIDNEY: 10.6 x 5.7 x 4.5 cm (SAG x AP x TRV). The kidney is normal in size, contour, and echogenicity. Renal cortical thickness is normal. Question left lower pole calcified vessel. No definite renal calculi. 1.6 x 1.9 x 1.4 cm midpole cyst. No hydronephrosis. BLADDER: Well distended and normal. Bilateral ureteral jets are demonstrated. Prevoid bladder volume is 218 mL. Postvoid bladder volume is 177 mL. Prostate measured 18 mm. IMPRESSION: 177 mL post void residual. Left midpole renal cyst. Assessment & Plan Assessment & Plan (1) Incomplete bladder emptying: Code(s): R33.9 - Retention of urine, unspecified (2) Hydrocele: Code(s): N43.3 - Hydrocele, unspecified (3) Renal cyst: Code(s): N28.1 - Cyst of kidney, acquired Plan In office urinalysis results reviewed with the patient today; as noted above. PVR 180 mL. Recent retroperitoneal ultrasound results reviewed with the patient today; as noted above. Recent PSA results reviewed with the patient today; as noted above. Patient reports significant improvement in lower urinary tract symptoms since his last office visit here Discussed at length incomplete bladder emptying PVR at last office visit approximately 600 mL notable decrease today will continue with treatment plan Patient decrease terazosin to 5 mg daily due to dizziness he had been experi encing with 10 mg Will continue with 5 mg terazosin daily. He is happy with his current voiding parameters Will obtain PSA in 6 months Will continue with surveillance monitoring of hydrocele as patient does not find this bothersome Follow-up in 6 months with lab to be completed prior; or sooner with any issues, concerns, and or questions. Orders: Orders AMB Urinalysis Automated Today Z13.9 - Encounter for screening, unspecified AMB Post Void Residual by ultrasound Today R33.9 - Retention of urine, unspecified Patient Instructions: The patient had an opportunity to ask questions regarding the treatment plan. All questions were answered. Physical exam, labs, and imaging were discussed and reviewed in detail. As well as risks, benefits, and discussion of treatment choices. No major barriers to understanding were identified. The patient expressed understanding and agreement with the above treatment plan. The patient was made aware they should contact our office by phone for worsening of their current condition, the appearance of new symptoms, or with any questions or concerns. Compliance is encouraged with any medications and follow up testing that is ordered. It is a privilege to be allowed the opportunity to participate in? your urological care.? Again, if you have any questions or concerns If you have any questions or concerns please do not hesitate to contact me. The office is [phone]. This note is constructed using voice recognition software. While every effort has been made to ensure accuracy application processor errors may have been included. Yours sincerely, KAREN Diaz Coding Level of Care Code Est Pt Level 3 (24663) Diagnoses Incomplete bladder emptying R33.9 Hydrocele N43.3 Renal cyst N28.1 CPT Codes Post Residual Void - PVR CPT Code: 67165-Lcvl Void Residual by ultrasound ([id number])
== END 2023-07-27 11:10 | disposition home or self-care (01) ==
PROVIDERS: PCP Registered Nurse; Visit Provider Nurse Practitioner Family
DX: R33.9 Retention of urine, unspecified (principal); N43.3 Hydrocele, unspecified; N28.1 Cyst of kidney, acquired
CPT/HCPCS: 99213

== ENCOUNTER → 2023-07-27 10:27 | Outpatient (BNVA) | payer OTHER, SELFPAY | PROVIDERS: PCP Registered Nurse; Visit Provider Nurse Practitioner Family | DX: R33.9 Retention of urine, unspecified (principal); N43.3 Hydrocele, unspecified; N28.1 Cyst of kidney, acquired | CPT/HCPCS: 51798; 81003; 99212 ==

== ENCOUNTER 2023-08-04 11:00 | Outpatient (RCR) | payer OTHER, MEDICAID, SELFPAY ==
--- NOTE | 2023-07-05 13:57 | MHC.PT.EP ---
[facility] [place] Office [place] Office [place] Office [address] Jarad Knapp [address] [phone] F: [phone] F: [phone] F: [phone] F: [phone] Physical Therapy Plan of Care Date of Evaluation: 07/05/23 Date of Surgery: NA Diagnosis: Gait instability Assessment: Lei is a 78 year old male who is referred to PT for gait instability . He reports of having difficulty ambulating due since 2016 after having TKA in B knees. He had PT after surgery but never felt 100% better. He denies having any falls. Only reports of having pain in B knees and weakness in B LE. On PT examination he presented with no TTP, decreased strength in B LE, altered posture, balance and gait. He lives with is . Has a [employer] 2hours/ day who assists him with all ADLS including showering and dressing. He is unemployed. He would benefit from skilled PT to address the aforementioned impairments and improve tolerance to functional activities. Frequency and Duration: The patient will be seen 2/week for 5 weeks. Short Term Goals: 1. Pt will have 50% decrease in pain at rest in 2 weeks 2. Pt will report of being able to perform sit to stand from chair with a pain no more than 2/10 in 3 weeks. Bumboater Goals: 1. Pt will demonstrate an increase in muscle strength by 1 grade which will enable him to ambulate with walker with a pain no more than 2/10 in 5 weeks. 2. Pt will be independent with [facility] for symptom management and maintenance following d/c in 5 weeks. Treatment Plan: Modalities to reduce pain, spasms and effusion. Manual therapy to restore motion and function. Therapeutic exercise to improve strength and flexibility. Neuromuscular re-education for posture and balance. Therapeutic activities to return to functional activities of daily living. Electronically signed by: Winifred Upton PT DPT Please sign and return to therapist. Thank you for your referral.
--- NOTE | 2023-08-16 13:54 | MHC.PT.DC ---
[facility] [place] Office [place] Office [place] Office [address] Jarad Knapp [address] [phone] F: [phone] F: [phone] F: [phone] F: [phone] Physical Therapy Discharge Report Diagnosis: Gait instability Date of Surgery: NA Date of Evaluation: 07/05/23 Date of Discharge: 08/16/23 Treatments to Date: 9 Cancellations to Date: 0 No Shows to Date: 0 Discharge Status: Achieved Goals Improved Function Independent with HEP Discharge Summary: Lei completed 9 PT visits of PT and made significant improvements. He achieved all goals set for him and was independent with all HEP. He is therefore being d/c from PT. Electronically signed by: Winifred Upton, PT DPT Please sign and return to therapist. Thank you for your referral.
== END 2023-08-16 13:54 | disposition home or self-care (01) ==
LOC: HO.PT 11:00
PROVIDERS: PCP Registered Nurse; Visit Provider Registered Nurse
DX: R26.81 Unsteadiness on feet (principal)
CPT/HCPCS: 97110; 97112; 97161; 97530

== ENCOUNTER 2023-10-22 10:13 | Outpatient (REF) | payer OTHER, SELFPAY ==
[2023-10-22 11:29] LABS: MANUAL DIFF FLAG NO
[2023-10-22 11:35] LABS: Basophils Absolute Auto 0.1 X10*3/uL (0.0-0.2); Basophils Percent Auto 0.6 % (0-2); Eosinophils Absolute Auto 0.1 X10*3/uL (0.0-0.4); Eosinophils Percent Auto 0.6 % (0-4); Hematocrit 38.4 % (42.0-52.0); Hemoglobin 12.4 g/dl (14.0-18.0); Imm Gran Abs Auto 0.07 X10*3/uL (0.00-0.03); Imm Gran Pct Auto 0.9 % (0.0-0.4); Lymphocytes Absolute Auto 1.3 X10*3/uL (1.2-4.9); Lymphocytes Percent Auto 17.2 % (20-40); Mean Corpuscular HGB Conc 32.3 g/dl (31.0-36.0); Mean Corpuscular Hemoglobin 25.2 pg (27.0-33.0); Mean Platelet Volume 9.7 fL (9.4-12.4); Monocytes Absolute Auto 0.5 X10*3/uL (0.1-1.2); Monocytes Percent Auto 6.8 % (2-11); Neutrophils Absolute Auto 5.8 x10*3/uL (2.0-8.3); Neutrophils Percent Auto 73.9 % (45-73); Platelet Count 328 X10*3/uL (160-400); Red Blood Count 4.92 X10*6/uL (4.60-5.80); Red Cell Distribution Width 15.7 % (11.0-16.0); White Blood Count 7.8 X10*3/uL (4.8-10.8)
[2023-10-22 11:51] LABS: Alanine Aminotransferase 9 U/L (0-40); Albumin Level 4.4 g/dL (3.5-5.0); Alkaline Phosphatase 71 U/L (39-117); Anion Gap 14 (12-20); Aspartate Amino Transferase 11 U/L (5-37); Bilirubin Total 0.6 mg/dL (0.0-1.0); Blood Urea Nitrogen 14 mg/dL (9-16); Calcium 10.2 mg/dL (8.4-10.2); Carbon Dioxide 25 mmol/L (22-29); Chloride 102 mmol/L (96-108); Estimated Glomerular Filt Rate > 60; Glucose Random 126 mg/dL (60-115); Potassium 4.5 mmol/L (3.3-5.1); Sodium 136 mmol/L (135-145); Total Protein 7.7 g/dL (6.5-8.0)
[2023-10-22 12:09] LABS: Ferritin 23 ng/mL (20-250)
== END 2023-10-22 10:14 | disposition home or self-care (01) ==
LOC: HO.HHCL 10:13
PROVIDERS: Visit Provider Registered Nurse
DX: R19.7 Diarrhea, unspecified (principal)
CPT/HCPCS: 36415; 80053; 82728; 85025

== ENCOUNTER 2023-10-25 13:39 | Outpatient (REF) | payer OTHER, SELFPAY ==
[2023-10-25 16:10] LABS: OBS Int Ctl Valid YES; OBS1 NEGATIVE (NEGATIVE)
[2023-10-30 01:34] LABS: Calprotectin, Fecal 88 mcg/g
== END 2023-10-25 13:40 | disposition home or self-care (01) ==
LOC: HO.HHCLNP 13:39
PROVIDERS: Visit Provider Registered Nurse
DX: R19.7 Diarrhea, unspecified (principal)
CPT/HCPCS: 82272; 83993

== ENCOUNTER 2023-12-01 10:18 | Outpatient (AMB) | payer OTHER, SELFPAY ==
--- NOTE | 2023-12-01 10:23 | A.OFFVIS_ITS ---
Vital Signs 12/01/23 10:35 Height 5 ft 2 in Weight 152 lb 8.958 oz BMI 27.9 BP 127/70 Blood Pressure Location Rt brachial Position Sitting Pulse 75 Intake Visit Reasons: Diarrhea Intake Note: New patient in office today for evaluation and management of diarrhea. CC: States that for about 3 months everything that contains lactose or fat gives him diarrhea. He also c/o increased gas all day, upset stomach, and feeling very weak, and low energy. Patient reports having 2 episodes of fecal incontinence. Director Video Required: Yes Accompanied by: Daughter Allergies No Known Allergies [No Known Allergies*] Allergy (Verified 12/01/23 10:41) HPI HPI Diarrhea: Details: Assessment & Plan (1) Colon cancer screening: Code(s): Z12.11 - Encounter for screening for malignant neoplasm of colon Category: Medical Plan: Green[place]ic #[id number], Daniela. He had a prior colonoscopy in [place] but it was around 10 years ago. Per his memory it was normal. He tolerated the procedure well. He tells me that his PCP is concerned about his anemia because they can't seem to find out why he keeps dropping. He has not noticed any upper stomach discomfort, and his stools are currently black but this began when he started oral iron supplementation. He does not have constipation or diarrhea. He denies any sx such as dyspepsia, N/V, weight loss, GERD or dsyphagia. He drinks coffee in the AM and drinks a juice concoction to clean out my colon. He dislikes red meat and prefers seafood, he does not eat many green leafy vegeatbles, mostly tomaotes carrots and iceberg lettuce. There are no prior problems with anesthesia or sedation. He denies any cardiac or respiratory problems. There is no known FHX of crc or polyps removed. He wants to ask me about possible interactions between his BP medicatoins, but I redirect him to his PCP. He thinks they are causing coughing and pain. Medications: New: peg 3350-electrolytes 236-22.74-6.74 -5.86 gram (Golytely) until fecal effluent is clear; do not exceed a total volume of 2,000 mL 240 mL PO Q10M 30 days 4,000 mL 0RF bisacodyl (Dulcolax (bisacodyl)) 10 mg (2 x 5 mg) PO BEDTIME 1 day 2 tabs 0RF (2) Anemia: Code(s): D64.9 - Anemia, unspecified Category: Medical Medications: New: peg 3350-electrolytes 236-22.74-6.74 -5.86 gram (Golytely) until fecal effluent is clear; do not exceed a total volume of 2,000 mL 240 mL PO Q10M 30 days 4,000 mL 0RF bisacodyl (Dulcolax (bisacodyl)) 10 mg (2 x 5 mg) PO BEDTIME 1 day 2 tabs 0RF COLONOSCOPY 06/24/20 Terminal Ileum: Distal 10 cms was examined and appeared normal Cecum: Normal Ascending Colon: Scattered moderate diverticulosis Transverse Colon: Scattered moderate diverticulosis Descending Colon: Scattered moderate diverticulosis Sigmoid Colon: Moderate diverticulosis Rectum: Normal Ano-rectum: Moderate internal hemorrhoids Colon preparation: Excellent Impression and Post Procedure Diagnosis: Endoscopy Findings: STOMACH: Moderate diffuse gastric erythema with submucosal hemorrhages. Biopsies were obtained from the gastric body and antrum. Decreased fundal folds and grade 3 flap valve on retroflexed examination of the cardia. DUODENUM: Normal - biopsied to check for celiac sprue. Colonoscopy Findings: No polyps were detected Moderate diverticulosis seen in the entire colon Moderate hemorrhoids on retroflexed exam. Enlarged scrotum noted during rectal examination - ? due to Hydrocele. Received: 06/24/20 Status: [facility] Location: [facility] Diagnosis A. Small bowel, biopsy: Small intestinal mucosa with mildly increased intraepithelial lymphocytes and preserved villous architecture. See comment. B. Stomach, antrum, biopsy: Antral-type mucosa with moderate chronic, focally active, inflammation; no Helicobacter organisms seen. C. Stomach, body, biopsy: - Oxyntic mucosa with severe chronic, active, inflammation. - Positive for H. pylori. COMMENT: The lymphocytes in the small bowel are likely secondary to the H pylori infection * [facility] Laboratory Tests 10/22/23 10:15 WBC 7.8 Hgb 12.4 L Hct 38.4 L MCV 78.0 L MCH 25.2 L Plt Count 328 Estimated GFR > 60 Total Bilirubin 0.6 AST 11 ALT 9 Alkaline Phosphatase 71 Laboratory Tests 10/25/23 08:20 Stool Occult Blood NEGATIVE Stool Calprotectin 88 TODAY'S VISIT Green[place]ic #Lucila Mariscal This patient has been lost to follow-up since 06/2020 but apparently is referred here today for evaluation of diarrhea. He is here with his dtr who is supportive. He started having problems when I eat, for example he will have bread and coffee in the am and he will have the urge to defecate. He can not always move his bowels, and when he can the stool is hard and small. He has avoided greasy foods and they are using canola oil. [place] foods will cause his stools to be pasty. His usual BM is once a day, but when he eats grease he will go 2-3 times a day and the later BM's will be loose. [place] foods also cause more gas and bloating. There is no malodor but it causes his discomfort. This has been a problem for about 4 mos. The only med change was from Flomax to terazosin. He went on a trip to [place] and ate a lot of his [place] food but then suffered diarrhea (but says the whole family had diarrhea). But this happened a year ago. Yet he did not have diarrhea prior to this trip. He also had trouble with pork chops. His says he will have some episodes of fecal incontinence and urgency. He also had a lot of HB and dyspepsia and Dr. Villeda gave him medication for GERD - omeprazole - and this improved this sx. They show me labs from [facility] pt portal and no infectious work up, mildly borderline elevated facal calprotectin, normal LFT's including alk phos. Will start trial of creon as he always contends with the gas trapping and discomfort - likely EPI r/t age but will r/o infection, allergies, GB disease. ROV 5 weeks. PFSH Medical History Hydrocele Cataract Hypercholesteremia Diabetes Erectile dysfunction BPH (benign prostatic hyperplasia) Hypertension Surgical History Hx of colonoscopy History of bilateral knee replacement History of prostate surgery Family History (Updated 12/01/23 @ 10:46 by CELSO Johnson) Father Diabetes Mother Diabetes Uterus cancer Mother Cancer Social History Household Members: Spouse Housing: Apartment Are you a primary healthcare architect to a significant other at home: No Do you presently have visiting nurse or other home services: No Alcohol intake: never Patient Tobacco Use Status: Never used Tobacco service: No Current occupational status: retired Current occupation: right handed Review of Systems Const Denies fatigue, Denies fever(s), Denies night sweats, Denies poor appetite and Denies weight loss ENT Reports Normal hearing present, Denies dysphagia, Denies odynophagia, Denies throat swelling and Denies tongue swelling Card Reports no additional complaints Resp Reports no additional complaints GI Details: Denies abdominal pain, Denies melena, Reports bloating, Denies hematochezia, Reports constipation, Denies GI cramping, Denies dysphagia, Reports excessive flatus, Denies early satiety, Reports heartburn, Reports diarrhea, Denies nausea, Denies odynophagia, Denies vomiting and Denies hematemesis Skin/Breast Denies pruritus, Denies lesions, Denies rash and Denies jaundice Neuro Reports Normal hearing present and Denies Abnormal speech present Endo Denies fatigue Aller/Immun Denies throat swelling and Denies tongue swelling Physical Exam Vital Signs: Last Vital Signs Pulse 75 12/01/23 10:35 BP 127/70 12/01/23 10:35 BMI result Body Mass Index 27.9 Const General: cooperative, no acute distress, well developed and well groomed Nutritional Appearance: well nourished and overweight Orientation/consciousness: oriented to person, oriented to place and oriented to time Limitations: language barrier and ambulation with walker HEENT Other: growth right side of nose dark Head: Yes normocephalic and Yes atraumatic Eyes General: appearance normal, both eyes and all related structures Pupils: Equal, round and reactive pupils present Neck Neck: Yes normal visual inspection and Yes no lymphadenopathy Thyroid: Thyroid normal Resp Effort & Inspection: normal respiratory effort and able to speak in complete sentences Auscultation: diminished lung sounds bilateral Cardio Rate: regular rate Rhythm: regular rhythm Heart sounds: Normal, physiologic split S2 sound present Peripheral pulses: radial pulses present and posterior tibial pulses present GI Inspection: Yes distended, No Abdominal panniculus present and Yes obesity Palpation (GI): Soft to palpation, nontender, no guarding, not rigid and No hepatosplenomegaly present Percussion: Yes normal to percussion Auscultation: Hyperactive bowel sounds present Rectal Exam - Male: Yes deferred Skin General skin exam: no rashes or lesions noted, turgor normal, skin not dry, no jaundice, No spider nevi and no striae Rashes: no rashes Nails: normal Neuro General: oriented to person, oriented to place and oriented to time Cranial nerves: Yes Equal, round and reactive pupils present and Yes Normal hearing present Speech: No Abnormal speech present Extrem General: Yes normal to inspection, No clubbing, No cyanosis and No edema Psych Appearance: grossly normal and well kempt Mental Status: mental status grossly normal Speech and movement: Normal speech and movement present Affect: normal affect Attitude: cooperative Thought process: Normal thought process present and not confabulating Thought content: Normal thought content present Insight: Limited insight present (Psych) Judgement: Limited judgement present (Psych) Results Reviewed Results Reviewed: Laboratory Tests 10/22/23 10:15 WBC 7.8 Hgb 12.4 L Hct 38.4 L MCV 78.0 L MCH 25.2 L Plt Count 328 Estimated GFR > 60 Total Bilirubin 0.6 AST 11 ALT 9 Alkaline Phosphatase 71 Laboratory Tests 10/25/23 08:20 Stool Occult Blood NEGATIVE Stool Calprotectin 88 Assessment & Plan Assessment & Plan (1) Loose stools: Code(s): R19.5 - Other fecal abnormalities Category: Medical (2) Abdominal bloating: Code(s): R14.0 - Abdominal distension (gaseous) Category: Medical Plan [place] #Lucila Mariscal This patient has been lost to follow-up since 06/2020 but apparently is referred here today for evaluation of diarrhea. He is here with his dtr who is supportive. He started having problems when I eat, for example he will have bread and coffee in the am and he will have the urge to defecate. He can not always move his bowels, and when he can the stool is hard and small. He has avoided greasy foods and they are using canola oil. [place] foods will cause his stools to be pasty. His usual BM is once a day, but when he eats grease he will go 2-3 times a day and the later BM's will be loose. [place] foods also cause more gas and bloating. There is no malodor but it causes his discomfort. This has been a problem for about 4 mos. The only med change was from Flomax to terazosin. He went on a trip to [place] and ate a lot of his [place] food but then suffered diarrhea (but says the whole family had diarrhea). But this happened a year ago. Yet he did not have diarrhea prior to this trip. He also had trouble with pork chops. His says he will have some episodes of fecal incontinence and urgency. He also had a lot of HB and dyspepsia and Dr. Villeda gave him medication for GERD - omeprazole - and this improved this sx. They show me labs from [facility] pt portal and no infectious work up, mildly border line elevated fecal calprotectin, normal LFT's including alk phos. Will start trial of creon as he always contends with the gas trapping and discomfort - likely EPI r/t age but will r/o infection, allergies, GB disease. ROV 5 weeks. Orders: Orders C Reactive Protein 12/01/23 R19.5 - Other fecal abnormalities Transglutaminase IgA 12/01/23 R19.5 - Other fecal abnormalities Transglutaminase Ab IgG 12/01/23 R19.5 - Other fecal abnormalities GI Panel 12/06/23 R19.5 - Other fecal abnormalities, R14.0 - Abdominal distension (gaseous) H pylori Ag Stool 12/06/23 R19.5 - Other fecal abnormalities, R14.0 - Abdominal distension (gaseous) Rast Allergen 12/01/23 R19.5 - Other fecal abnormalities US abdomen complete 12/01/23 R19.5 - Other fecal abnormalities CDiff Gene PCR 12/06/23 R19.5 - Other fecal abnormalities, R14.0 - Abdominal distension (gaseous) Medications: New ynrmab-[id number]-[id number] 24,000-76,000 -120,000 unit (Creon) 2 caps PO BID 120 caps 6RF 30 days K58.9 - Irritable bowel syndrome without diarrhea Coding Level of Care Code Est Pt Level 3 (92528) Diagnoses Loose stools R19.5 Abdominal bloating R14.0
[2023-12-01 10:35] VITALS: BP 127/70; PULSE 75; BMI 27.9
== END 2023-12-01 11:25 | disposition home or self-care (01) ==
PROVIDERS: PCP Registered Nurse; Visit Provider Nurse Practitioner
DX: R19.5 Other fecal abnormalities (principal); R14.0 Abdominal distension (gaseous)
CPT/HCPCS: 99213

== ENCOUNTER 2023-12-01 10:18 | Outpatient (REF) | payer OTHER, SELFPAY ==
[2023-12-01 12:56] LABS: C Reactive Protein < 0.10 mg/dL (< or = 0.50)
[2023-12-02 21:33] LABS: Transglutaminase Ab IgG <1.0 U/mL; Transglutaminase IgA <1.0 U/mL
== END 2023-12-01 10:19 | disposition home or self-care (01) ==
LOC: HO.LAB 10:18
PROVIDERS: PCP Registered Nurse; Visit Provider Nurse Practitioner
DX: R19.5 Other fecal abnormalities (principal); R19.7 Diarrhea, unspecified; R14.0 Abdominal distension (gaseous); K21.9 Gastro-esophageal reflux disease without esophagitis; D64.9 Anemia, unspecified
CPT/HCPCS: 36415; 86003; 86140; 86364; 99212

== ENCOUNTER 2023-12-06 11:37 | Outpatient (REF) | payer OTHER, SELFPAY ==
[2023-12-06 13:03] LABS: Adenovirus F 40/41 Not Detected (Not Detect.); Astrovirus Not Detected (Not Detect.); Campylobacter Not Detected (Not Detect.); Cryptosporidium Not Detected (Not Detect.); Cyclospora cayetanensis Not Detected (Not Detect.); E. coli EAEC Not Detected (Not Detect.); E. coli EPEC Not Detected (Not Detect.); E. coli ETEC Not Detected (Not Detect.); E. coli STEC Not Detected (Not Detect.); Entamoeba histolytica Not Detected (Not Detect.); Giardia lamblia Not Detected (Not Detect.); Norovirus GI/GII Not Detected (Not Detect.); Plesiomonas shigelloides Not Detected (Not Detect.); Rotavirus A Not Detected (Not Detect.); Salmonella Not Detected (Not Detect.); Sapovirus Not Detected (Not Detect.); Shigella sp./EIEC Not Detected (Not Detect.); Vibrio Not Detected (Not Detect.); Vibrio Cholerae Not Detected (Not Detect.); Yersinia enterocolitica Not Detected (Not Detect.)
[2023-12-06 13:37] LABS: CDiff Gene PCR NEGATIVE (Negative)
== END 2023-12-06 11:38 | disposition home or self-care (01) ==
LOC: HO.LNP 11:37
PROVIDERS: Visit Provider Nurse Practitioner
DX: R19.5 Other fecal abnormalities (principal); R14.0 Abdominal distension (gaseous)
CPT/HCPCS: 87338; 87493; 87507

== ENCOUNTER 2023-12-16 09:42 | Outpatient (REF) | payer OTHER, SELFPAY ==
--- NOTE | ~2023-12-16 | US_ITS ---
EXAMINATION: US ABDOMEN COMPLETE CLINICAL INFORMATION: Abdominal bloating. COMPARISON: Ultrasound kidneys and bladder 06/01/2023. TECHNIQUE: Real-time imaging of the abdominal viscera. Technically severely limited study secondary to body habitus and bowel gas. FINDINGS: PANCREAS: Limited visualization of pancreatic tail and head. Imaged portion of pancreatic body is unremarkable. ABDOMINAL AORTA: Limited visualization. INFERIOR VENA CAVA: Limited visualization. LIVER: Increased hepatic parenchymal heterogeneity and echogenicity could be associated with hepatocellular disease/hepatic steatosis and severely limits visualization. Correlation with liver function tests and clinical exam recommended to determine further management. The liver contour is normal. GALLBLADDER: No gallstones. No gallbladder wall thickening. COMMON BILE DUCT: Normal in caliber measuring 0.3 cm in diameter. RIGHT KIDNEY: No hydronephrosis. No renal calculi. Limited visualization. The kidney measures 9.3 cm in maximum dimension. LEFT KIDNEY: No hydronephrosis. No renal calculi. Limited visualization. Left renal 1.4 x 2.0 x 1.7 cm anechoic midpole structure may represent a parapelvic cyst versus extrarenal pelvis and it is difficult to characterize due to severely limited visualization.. The kidney measures 10.6 cm in maximum dimension. SPLEEN: Normal. The spleen measures 8.0 cm in maximum dimension. FREE FLUID: None US/US abdomen complete IMPRESSION: 1. Increased hepatic parenchymal heterogeneity and echogenicity could be associated with hepatocellular disease/hepatic steatosis and severely limits visualization. Correlation with liver function tests and clinical exam recommended to determine further management.2 2. Left renal 2.0 cm anechoic midpole structure may represent a parapelvic cyst versus extrarenal pelvis and it is difficult to characterize due to severely limited visualization.
== END 2023-12-16 09:43 | disposition home or self-care (01) ==
LOC: HO.US 09:42
PROVIDERS: PCP Registered Nurse; Visit Provider Nurse Practitioner
DX: R19.5 Other fecal abnormalities (principal)
CPT/HCPCS: 76700

== ENCOUNTER 2024-01-05 10:39 | Outpatient (AMB) | payer OTHER, SELFPAY ==
--- NOTE | 2024-01-05 10:46 | A.OFFVIS_ITS ---
Vital Signs 01/05/24 10:51 Height 5 ft 2 in Weight 147 lb 11.355 oz BMI 27.0 BP 156/76 H Blood Pressure Location Rt brachial Position Sitting Pulse 86 Intake Visit Reasons: 5 week follow up Intake Note: Lei presents to in office visit today in follow up of labs and US. CC: Patient states that he ate enchiladas, cake, and ice cream for his daughter and after that he spent all night in the bathroom with frequent BM, loose and formed. He also states that he has been taking only one Creon BID, and the Omeprazole once a day. Window Tinter Required: Yes Window Tinter Name: daughter Accompanied by: Daughter Allergies No Known Allergies [No Known Allergies*] Allergy (Verified 01/05/24 10:57) HPI HPI 5 week follow up: Details: Assessment & Plan (1) Loose stools: Code(s): R19.5 - Other fecal abnormalities Category: Medical (2) Abdominal bloating: Code(s): R14.0 - Abdominal distension (gaseous) Category: Medical Plan [place] #Lucila Live This patient has been lost to follow-up since 06/2020 but apparently is referred here today for evaluation of diarrhea. He is here with his dtr who is supportive. He started having problems when I eat, for example he will have bread and coffee in the am and he will have the urge to defecate. He can not always move his bowels, and when he can the stool is hard and small. He has avoided greasy foods and they are using canola oil. [place] foods will cause his stools to be pasty. His usual BM is once a day, but when he eats grease he will go 2-3 times a day and the later BM's will be loose. [place] foods also cause more gas and bloating. There is no malodor but it causes his discomfort. This has been a problem for about 4 mos. The only med change was from Flomax to terazosin. He went on a trip to [place] and ate a lot of his [place] food but then suffered diarrhea (but says the whole family had diarrhea). But this happened a year ago. Yet he did not have diarrhea prior to this trip. He also had trouble with pork chops. His says he will have some episodes of fecal incontinence and urgency. He also had a lot of HB and dyspepsia and Dr. Villeda gave him medication for GERD - omeprazole - and this improved this sx. They show me labs from [facility] pt portal and no infectious work up, mildly borderline elevated fecal calprotectin, normal LFT's including alk phos. Will start trial of creon as he always contends with the gas trapping and discomfort - likely EPI r/t age but will r/o infection, allergies, GB disease. ROV 5 weeks. Orders: Orders C Reactive Protein 12/01/23 R19.5 - Other fecal abnormalities Transglutaminase IgA 12/01/23 R19.5 - Other fecal abnormalities Transglutaminase Ab IgG 12/01/23 R19. - Other fecal abnormalities GI Panel 12/06/23 R1. - Other fecal abnormalities, R14.0 - Abdominal distension (gaseous) H pylori Ag Stool 12/06/23 R1. - Other fecal abnormalities, R14.0 - Abdominal distension (gaseous) Rast Allergen 12/01/23 R1. - Other fecal abnormalities US abdomen complete 12/01/23 R1. - Other fecal abnormalities CDiff Gene PCR 12/06/23 R1. - Other fecal abnormalities, R14.0 - Abdominal distension (gaseous) Medications: New [id number] 24,000-76,000 -120,000 unit (Creon) 2 caps PO BID 120 caps 6RF 30 days K58.9 - Irritable bowel syndrome without diarrhea LABS: Laboratory Tests 10/25/23 12/01/23 12/06/23 08:20 12:12 08:00 C-Reactive Protein < 0.10 Stool Calprotectin 88 Tiss Transglutamin IgG <1.0 Tiss Transglutamin IgA <1.0 C. difficile Tox B Gene NEGATIVE 12/06/23-[address]: ORDERED: GI Panel Test Result Flag Reference Campylobacter Not Detected Not Detect. P. shigelloides Not Detected Not Detect. Salmonella Not Detected Not Detect. Vibrio Not Detected Not Detect. Vibrio Cholerae Not Detected Not Detect. Y. enterocolit. Not Detected Not Detect. E. coli EAEC Not Detected Not Detect. E. coli EPEC Not Detected Not Detect. E. coli ETEC Not Detected Not Detect. E. coli STEC Not Detected Not Detect. E. coli O157 Not applicable Not Detect. E. coli containing the O157 antigen are a subset of Shiga-like toxin-producing E. coli (STEC). Shigella/EIEC Not Detected Not Detect. Cryptosporidium Not Detected Not Detect. Cyclospora Not Detected Not Detect. E. histolytica Not Detected Not Detect. Giardia lamblia Not Detected Not Detect. Adenovirus Not Detected Not Detect. Astrovirus Not Detected Not Detect. Norovirus Not Detected Not Detect. Rotavirus A Not Detected Not Detect. Sapovirus Not Detected Not Detect. RAST PANEL SHOWS NO SIGNIFICANT FOOD ALLERGIES. H PYLORI STOOL HAS NOT BEEN PROCESSED ULTRASOUND OF THE ABDOMEN 12/29/23 FINDINGS: PANCREAS: Limited visualization of pancreatic tail and head. Imaged portion of pancreatic body is unremarkable. ABDOMINAL AORTA: Limited visualization. INFERIOR VENA CAVA: Limited visualization. LIVER: Increased hepatic parenchymal heterogeneity and echogenicity could be associated with hepatocellular disease/hepatic steatosis and severely limits visualization. Correlation with liver function tests and clinical exam recommended to determine further management. The liver contour is normal. GALLBLADDER: No gallstones. No gallbladder wall thickening. COMMON BILE DUCT: Normal in caliber measuring 0.3 cm in diameter. RIGHT KIDNEY: No hydronephrosis. No renal calculi. Limited visualization. The kidney measures 9.3 cm in maximum dimension. LEFT KIDNEY: No hydronephrosis. No renal calculi. Limited visualization. Left renal 1.4 x 2.0 x 1.7 cm anechoic midpole structure may represent a parapelvic cyst versus extrarenal pelvis and it is difficult to characterize due to severely limited visualization.. The kidney measures 10.6 cm in maximum dimension. SPLEEN: Normal. The spleen measures 8.0 cm in maximum dimension. FREE FLUID: None US/US abdomen complete IMPRESSION: 1. Increased hepatic parenchymal heterogeneity and echogenicity could be associated with hepatocellular disease/hepatic steatosis and severely limits visualization. Correlation with liver function tests and clinical exam recommended to determine further management.2 2. Left renal 2.0 cm anechoic midpole structure may represent a parapelvic cyst versus extrarenal pelvis and it is difficult to characterize due to severely limited visualization. TODAY'S VISIT [place] # Nicholas Live He is here today with a female family member who is supportive. The patient is quite [place]. He has noted that most of his diarrhea comes from lactose products. Educated. Lists printed in [place] for lactose dieetary therapy from CNM and UTD. ROV 3 mos. PFSH Medical History Diverticulosis Hyponatremia Acute hyponatremia Colon cancer screening Erectile dysfunction Gastritis COVID-19 virus infection Hydrocele Cataract Hypercholesteremia Diabetes BPH (benign prostatic hyperplasia) Hypertension Surgical History Hx of colonoscopy History of bilateral knee replacement History of prostate surgery Family History Father Diabetes Mother Diabetes Uterus cancer Mother Cancer Social History Household Members: Spouse Housing: Apartment Are you a primary career services coordinator to a significant other at home: No Do you presently have visiting nurse or other home services: No Alcohol intake: never Patient Tobacco Use Status: Never used Tobacco service: No Current occupational status: retired Current occupation: right handed Review of Systems Const Denies fatigue, Denies fever(s), Denies night sweats, Denies poor appetite and Denies weight loss Eyes Details: glasses Reports requires corrective lenses ENT Denies Normal hearing present, Denies dental pain, Denies dysphagia, Denies hearing loss, Denies mouth pain, Denies odynophagia, Denies throat swelling, Denies tongue swelling and Reports other (Dentition adequate) Card Reports no additional complaints Resp Reports no additional complaints GI Details: Denies abdominal pain, Denies melena, Denies bloating, Denies hematochezia, Denies constipation, Denies GI cramping, Denies dysphagia, Denies excessive flatus, Denies early satiety, Denies heartburn, Reports diarrhea, Denies nausea, Denies odynophagia, Denies vomiting and Denies hematemesis Skin/Breast Denies pruritus, Denies lesions, Denies rash and Denies jaundice Neuro Denies Normal hearing present and Denies Abnormal speech present Endo Denies fatigue Aller/Immun Denies throat swelling and Denies tongue swelling Physical Exam Vital Signs: Last Vital Signs Pulse 86 01/05/24 10:51 BP 156/76 H 01/05/24 10:51 BMI result Body Mass Index 27.0 Const General: cooperative, no acute distress, well developed and well groomed Nutritional Appearance: average body habitus, well nourished and obese Orientation/consciousness: oriented to person, oriented to place and oriented to time Limitations: No language barrier and other limitations (Hard of hearing) HEENT Head: Yes normocephalic and Yes atraumatic Ears: hearing grossly abnormal bilaterally Eyes General: appearance normal, both eyes and all related structures Pupils: Equal, round and reactive pupils present Neck Neck: Yes normal visual inspection and Yes no lymphadenopathy Thyroid: Thyroid normal Resp Effort & Inspection: normal respiratory effort and able to speak in complete sentences Auscultation: clear to auscultation bilaterally Cardio Rate: regular rate Rhythm: regular rhythm Heart sounds: Normal, physiologic split S2 sound present Peripheral pulses: radial pulses present and posterior tibial pulses present GI Inspection: No distended and No Abdominal panniculus present Palpation (GI): Soft to palpation, nontender, no guarding, not rigid and No hepatosplenomegaly present Percussion: Yes normal to percussion Auscultation: normal bowel sounds Rectal Exam - Male: Yes deferred Skin General skin exam: no rashes or lesions noted, turgor normal, skin not dry, no jaundice, No spider nevi and no striae Rashes: no rashes Nails: normal Neuro General: oriented to person, oriented to place and oriented to time Cranial nerves: Yes Equal, round and reactive pupils present and No Normal hearing present Speech: No Abnormal speech present Extrem General: Yes normal to inspection, No clubbing, No cyanosis and No edema Psych Appearance: grossly normal and well kempt Mental Status: mental status grossly normal Speech and movement: Normal speech and movement present Affect: normal affect Attitude: cooperative Thought process: Normal thought process present and not confabulating Thought content: Normal thought content present Insight: Limited insight present (Psych) Judgement: Limited judgement present (Psych) Results Reviewed Results Reviewed: Laboratory Tests 10/25/23 12/01/23 12/06/23 08:20 12:12 08:00 C-Reactive Protein < 0.10 Stool Calprotectin 88 Tiss Transglutamin IgG <1.0 Tiss Transglutamin IgA <1.0 C. difficile Tox B Gene NEGATIVE 12/06/23-1138 OTHR : ORDERED: GI Panel Test Result Flag Reference Campylobacter Not Detected Not Detect. P. shigelloides Not Detected Not Detect. Salmonella Not Detected Not Detect. Vibrio Not Detected Not Detect. Vibrio Cholerae Not Detected Not Detect. Y. enterocolit. Not Detected Not Detect. E. coli EAEC Not Detected Not Detect. E. coli EPEC Not Detected Not Detect. E. coli ETEC Not Detected Not Detect. E. coli STEC Not Detected Not Detect. E. coli O157 Not applicable Not Detect. E. coli containing the O157 antigen are a subset of Shiga-like toxin-producing E. coli (STEC). Shigella/EIEC Not Detected Not Detect. Cryptosporidium Not Detected Not Detect. Cyclospora Not Detected Not Detect. E. histolytica Not Detected Not Detect. Giardia lamblia Not Detected Not Detect. Adenovirus Not Detected Not Detect. Astrovirus Not Detected Not Detect. Norovirus Not Detected Not Detect. Rotavirus A Not Detected Not Detect. Sapovirus Not Detected Not Detect. RAST PANEL SHOWS NO SIGNIFICANT FOOD ALLERGIES. H PYLORI STOOL HAS NOT BEEN PROCESSED ULTRASOUND OF THE ABDOMEN 12/29/23 FINDINGS: PANCREAS: Limited visualization of pancreatic tail and head. Imaged portion of pancreatic body is unremarkable. ABDOMINAL AORTA: Limited visualization. INFERIOR VENA CAVA: Limited visualization. LIVER: Increased hepatic parenchymal heterogeneity and echogenicity could be associated with hepatocellular disease/hepatic steatosis and severely limits visualization. Correlation with liver function tests and clinical exam recommended to determine further management. The liver contour is normal. GALLBLADDER: No gallstones. No gallbladder wall thickening. COMMON BILE DUCT: Normal in caliber measuring 0.3 cm in diameter. RIGHT KIDNEY: No hydronephrosis. No renal calculi. Limited visualization. The kidney measures 9.3 cm in maximum dimension. LEFT KIDNEY: No hydronephrosis. No renal calculi. Limited visualization. Left renal 1.4 x 2.0 x 1.7 cm anechoic midpole structure may represent a parapelvic cyst versus extrarenal pelvis and it is difficult to characterize due to severely limited visualization.. The kidney measures 10.6 cm in maximum dimension. SPLEEN: Normal. The spleen measures 8.0 cm in maximum dimension. FREE FLUID: None US/US abdomen complete IMPRESSION: 1. Increased hepatic parenchymal heterogeneity and echogenicity could be associated with hepatocellular disease/hepatic steatosis and severely limits visualization. Correlation with liver function tests and clinical exam recommended to determine further management.2 2. Left renal 2.0 cm anechoic midpole structure may represent a parapelvic cyst versus extrarenal pelvis and it is difficult to characterize due to severely limited visualization. Assessment & Plan Assessment & Plan (1) Loose stools: Code(s): R19.5 - Other fecal abnormalities Category: Medical (2) Abdominal bloating: Code(s): R14.0 - Abdominal distension (gaseous) Category: Medical Plan [place] # Nicholas Live He is here today with a female family member who is supportive. The patient is quite [place]. He has noted that most of his diarrhea comes from lactose products. Educated. Lists printed in [place] for lactose dieetary therapy from CNM and [facility]. ROV 3 mos. Coding Level of Care Code New Pt Level 3 (55865) Diagnoses Loose stools R19.5 Abdominal bloating R14.0
[2024-01-05 10:51] VITALS: BP 156/76; PULSE 86; BMI 27.0
== END 2024-01-05 11:20 | disposition home or self-care (01) ==
PROVIDERS: PCP Registered Nurse; Visit Provider Nurse Practitioner
DX: R19.5 Other fecal abnormalities (principal); R14.0 Abdominal distension (gaseous)
CPT/HCPCS: 99213

== ENCOUNTER → 2024-01-05 10:39 | Outpatient (BNVA) | payer OTHER, SELFPAY | PROVIDERS: PCP Registered Nurse; Visit Provider Nurse Practitioner | DX: R19.5 Other fecal abnormalities (principal); R14.0 Abdominal distension (gaseous) | CPT/HCPCS: 99212 ==

== ENCOUNTER 2024-01-21 10:33 | Outpatient (REF) | payer OTHER, SELFPAY ==
[2024-01-21 12:18] LABS: Prostate Specific Antigen 1.14 ng/mL (<0.05-4.0)
== END 2024-01-21 10:34 | disposition home or self-care (01) ==
LOC: HO.10HDL 10:33
PROVIDERS: Visit Provider Nurse Practitioner Family
DX: Z12.5 Encounter for screening for malignant neoplasm of prostate (principal)
CPT/HCPCS: 36415; 84153

== ENCOUNTER 2024-01-26 09:58 | Outpatient (AMB) | payer OTHER, SELFPAY ==
--- NOTE | 2024-01-26 10:00 | A.OFFVIS_ITS ---
Intake Visit Reasons: 6m/PSA Intake Note: Patient is present for 6m/PSA Urology Medication:Terazosin,viagra, Antibiotic Allergy:none Blood Thinner:aspirin PVR:37 ML'S Addiction Medicine Physician Required: No Allergies No Known Allergies [No Known Allergies*] Allergy (Verified 01/26/24 18:22) Medication List - Last Reconciled 01/26/24 by ROB Diaz- aspirin 1 tab PO DAILY atorvastatin 10 mg PO DAILY blood sugar diagnostic As directed cholecalciferol (vitamin D3) 50 mcg PO DAILY dapagliflozin propanediol (Farxiga) 10 mg PO QAM lancets As directed [id number] 24,000-76,000 -120,000 unit (Creon) 2 caps PO BID 30 days losartan 25 mg PO DAILY metformin 1,000 mg PO BID multivitamin 1 tab PO DAILY nifedipine ER 30 mg PO DAILY omeprazole 20 mg PO BID sildenafil (Viagra) 100 mg PO DAILY PRN 90 days sitagliptin phosphate (Januvia) 25 mg PO QAM terazosin 5 mg PO BEDTIME 90 days walker Folding Front wheeled walker with seat HPI Comments Details: Lei is a pleasant 78-year-old Estonian-speaking male patient of Dr. Torrez who was accompanied by his daughter at today's office visit. He has a past medical history of left-sided hydrocele, cataracts, hypercholesteremia, diabetes, ED, and hypertension. He presents to the office today for follow-up of his hydrocele, erectile dysfunction, and lower urinary tract symptoms. In discussion with the patient today he reports since his last office visit here approximately 6 months ago he has had no urological issues or concerns. He reports following up with Gastroenterology for his ongoing lactose intolerance. He currently denies any bothersome urinary issues or concerns. He reports to be compliant with finasteride and terazosin as prescribed. In office urinalysis results reviewed with the patient today. PVR 37 mLs. Recent PSA results reviewed with the patient today as noted and trended below. Previous workup has included a retroperitoneal ultrasound 06/10 noting right kidney with no lesions, and or hydronephrosis. Left kidney with question left lower pole calcified vessel. No definite renal calculi. 1.6 x 1.9 x 1.4 cm mid pole cyst. No hydronephrosis. The bladder is well distended and normal. Bilateral ureteral jets are demonstrated. Pre void bladder volume is approximately 220 mL. Postvoid bladder volume is approximately 180 mL. Prostate measures approximat tommie 18 mL. He had previously trialed Flomax however increased PVRs continued. When asked he currently denies any bothersome urinary issues or concerns. He has a history of a large left hydrocele however will continue with surveillance monitoring as he does not find this bothersome in does not wish to undergo in office drainage and or surgical intervention. When asked he denies hematuria, dysuria, foul-smelling urine, changes to urinary stream, flank pain, fever, and or chills. He otherwise denies any other bothersome issues or concerns at this time. PSAs: 06/10 2.3, 02/08 1.1 PFSH Medical History Diverticulosis Hyponatremia Acute hyponatremia Colon cancer screening Erectile dysfunction Gastritis COVID-19 virus infection Hydrocele Cataract Hypercholesteremia Diabetes BPH (benign prostatic hyperplasia) Hypertension Surgical History Hx of colonoscopy History of bilateral knee replacement History of prostate surgery Family History Father Diabetes Mother Diabetes Uterus cancer Mother Cancer Social History Household Members: Spouse Housing: Apartment Are you a primary care director to a significant other at home: No Do you presently have visiting nurse or other home services: No Alcohol intake: never Patient Tobacco Use Status: Never used Tobacco service: No Current occupational status: retired Current occupation: right handed Review of Systems Eyes Reports as per HPI ENT Reports no additional complaints Card Reports as per [facility] Resp Reports no additional complaints GI Reports as per HPI Reports as per HPI Neuro Reports no additional complaints Psych Reports no additional complaints Endo Reports as per HPI Physical Exam Const General: cooperative, healthy appearing, comfortable, no acute distress, well developed, alert and awake Orientation/consciousness: patient oriented x3 HEENT Head: Yes normal to inspection, Yes normocephalic and Yes atraumatic Ears: hearing grossly normal bilaterally Eyes General: appearance normal, both eyes and all related structures Neck Neck: Yes normal visual inspection and Yes trachea midline Chest Chest palpation & inspection: normal inspection of the chest Resp Effort & Inspection: normal respiratory effort and able to speak in complete sentences Cardio Rate: regular rate GI Inspection: Yes normal to inspection General: Yes no CVA tenderness Scrotum: Hydrocele present (large) on the left Back/Spine/Pelvis Back: no CVA tenderness Skin General skin exam: no rashes or lesions noted Neuro General: patient oriented x3 Extrem General: Yes normal to inspection Psych Appearance: grossly normal and well kempt Mental Status: mental status grossly normal Speech and movement: Normal speech and movement present and Clear speech present Affect: normal affect Attitude: cooperative Thought process: Normal thought process present Thought content: Normal thought content present Insight: Fair insight present (Psych) Judgement: Fair judgement present (Psych) Results AMB Urinalysis, Automated UA Leukoctes 0 Mariluz/uL Last Edit by CELSO Patel on 01/26/24 10:27 UA Nitrite Negative Last Edit by CELSO Patel on 01/26/24 10:27 UA Urobilinogen 0.2 mg/dL Last Edit by CELSO Patel on 01/26/24 10:2 7 UA Protein 0 mg/dL Last Edit by Sharon Dave CCM on 01/26/24 10:27 UA pH 5.0 Last Edit by Sharon Dave CCM on 01/26/24 10:27 UA Blood 0 Dharmesh/uL Last Edit by CELSO Patel on 01/26/24 10:27 UA Specific [place] 1.015 Last Edit by CELSO Patel on 01/26/24 10: 27 UA Ketone Negative Last Edit by CELSO Patel on 01/26/24 10:27 UA Bilirubin 0 mg/dL Last Edit by CELSO Patel on 01/26/24 10:27 UA Glucose 1000 mg/dL Last Edit by Sharon Dave CCM on 01/26/24 10:27 Results Reviewed Results Reviewed: Laboratory Last Values Urine pH (Auto) 5.0 01/26/24 10:27 Specific [place] (Auto) 1.015 01/26/24 10:27 Urine Protein (Auto) 0 mg/dL 01/26/24 10:27 Glucose (UA)(Auto) 1000 mg/dL 01/26/24 10:27 Urine Ketones (Auto) Negative 01/26/24 10:27 Urine Blood (Auto) 0 Dharmesh/uL 01/26/24 10:27 Urine Nitrite (Auto) Negative 01/26/24 10:27 Urine Bilirubin (Auto) 0 mg/dL 01/26/24 10:27 Urine Urobilinogen (Auto) 0.2 mg/dL 01/26/24 10:27 Leukocyte Esterase (Auto) 0 Mariluz/uL 01/26/24 10:27 Assessment & Plan Assessment & Plan (1) Incomplete bladder emptying: Code(s): R33.9 - Retention of urine, unspecified Category: Medical (2) Nocturia: Code(s): R35.1 - Nocturia Category: Medical (3) Erectile dysfunction associated with type 2 diabetes mellitus: Code(s): E11.69 - Type 2 diabetes mellitus with other specified complication; N52.1 - Erectile dysfunction due to diseases classified elsewhere Category: Medical (4) Hydrocele: Code(s): N43.3 - Hydrocele, unspecified Category: Medical (5) BPH (benign prostatic hyperplasia): Code(s): N40.0 - Benign prostatic hyperplasia without lower urinary tract symptoms Category: Medical (6) Renal cyst: Code(s): N28.1 - Cyst of kidney, acquired Category: Medical Plan In office urinalysis results reviewed with the patient today; as noted above. PVR 37 mL. Recent PSA results reviewed with the patient today; as noted above. Patient denies any bothersome urinary issues or concerns at this time. He reports to be happy with his current voiding parameters Continue terazosin and finasteride as ordered and prescribed. Will obtain PSA in one year Will continue with surveillance monitoring of hydrocele as patient does not find this bothersome Follow-up in 1 year with lab to be completed prior; or sooner with any issues, concerns, and or questions. Orders: Orders AMB Urinalysis Automated Today Z13.9 - Encounter for screening, unspecified Prostate Specific Antigen 1 Year N40.0 - Benign prostatic hyperplasia without lower urinary tract symptoms Prostate Specific Antigen 01/21/24 Z12.5 - Encounter for screening for malignant neoplasm of prostate Medications: Refilled terazosin 5 mg PO BEDTIME 90 days 90 caps 3RF sildenafil (Viagra) administer 30 minutes to 4 hours before activity BIN [id number] [facility] [id number] 100 mg PO DAILY 90 days PRN 20 tabs 3RF erectile dysfunction N52.9 - Male erectile dysfunction, unspecified Patient Instructions: The patient had an opportunity to ask questions regarding the treatment plan. All questions were answered. Physical exam, labs, and imaging were discussed and reviewed in detail. As well as risks, benefits, and discussion of treatment choices. No major barriers to understanding were identified. The patient expressed understanding and agreement with the above treatment plan. The patient was made aware they should contact our office by phone for worsening of their current condition, the appearance of new symptoms, or with any questions or concerns. Compliance is encouraged with any medications and follow up testing that is ordered. It is a privilege to be allowed the opportunity to participate in? your urological care.? Again, if you have any questions or concerns If you have any questions or concerns please do not hesitate to contact me. The office is [phone]. This note is constructed using voice recognition software. While every effort has been made to ensure accuracy rib matcher and fitter errors may have been included. Yours sincerely, KAREN Diaz Coding Level of Care Code Est Pt Level 3 (57465) Complex EM visit Add On G2211 Diagnoses Incomplete bladder emptying R33.9 Nocturia R35.1 Erectile dysfunction associated with type 2 diabetes mellitus E11.69; N52.1 Hydrocele N43.3 BPH (benign prostatic hyperplasia) N40.0 Renal cyst N28.1
== END 2024-01-26 10:45 | disposition home or self-care (01) ==
PROVIDERS: PCP Registered Nurse; Visit Provider Nurse Practitioner Family
DX: R33.9 Retention of urine, unspecified (principal); R35.1 Nocturia; E11.69 Type 2 diabetes mellitus with other specified complication; N52.1 Erectile dysfunction due to diseases classified elsewhere; N43.3 Hydrocele, unspecified; N40.0 Benign prostatic hyperplasia without lower urinary tract symptoms; N28.1 Cyst of kidney, acquired; Z13.9 Encounter for screening, unspecified
CPT/HCPCS: 99213; G2211

== ENCOUNTER → 2024-01-26 09:58 | Outpatient (BNVA) | payer OTHER, SELFPAY | PROVIDERS: PCP Registered Nurse; Visit Provider Nurse Practitioner Family | DX: N40.1 Benign prostatic hyperplasia with lower urinary tract symptoms (principal); R35.1 Nocturia; R33.8 Other retention of urine; E11.69 Type 2 diabetes mellitus with other specified complication; N52.1 Erectile dysfunction due to diseases classified elsewhere; N43.3 Hydrocele, unspecified; N28.1 Cyst of kidney, acquired; Z79.899 Other long term (current) drug therapy | CPT/HCPCS: 81003; 99212 ==

== ENCOUNTER 2024-04-13 12:47 | Outpatient (AMB) | payer OTHER, SELFPAY ==
--- NOTE | 2024-04-13 12:50 | MHC.OFFVIS ---
Intake Visit Reasons: [employer]- RT knee injury - Hx of TKA 2019 Intake Note: Lei is a 78 year old male who presents today for a new problem visit with complaints of right knee pain. Patient reports that on -- he took a fall while getting out of the car. Hx of bilateral TKA: Left TKA 09/20/2019 Right TKA revision 10/04/18 Allergies No Known Allergies [No Known Allergies*] Allergy (Verified 04/13/24 12:51) HPI HPI [facility]- RT knee injury - Hx of TKA 2019: Details: Lei is a 78 year old male who presents today for a new problem visit with complaints of right knee pain. Patient reports that on -- he took a fall while getting out of the car. Hx of bilateral TKA: Left TKA 09/20/2019 Right TKA revision 10/04/18 On further discussion he really has low back pain and shoulder pain and knee pain but nothing relating to his knees is causing him significant pain. Has lots of questions as to why he has generalized discomfort. [facility] Medical History (Updated 04/14/24 @ 09:03 by Israel Lee MD) Diverticulosis Hyponatremia Acute hyponatremia Colon cancer screening Erectile dysfunction Gastritis COVID-19 virus infection Hydrocele Cataract Hypercholesteremia Diabetes BPH (benign prostatic hyperplasia) Hypertension Surgical History (Updated 04/14/24 @ 09:02 by Israel Lee MD) Hx of colonoscopy History of bilateral knee replacement History of prostate surgery Family History Father Diabetes Mother Diabetes Uterus cancer Mother Cancer Social History Household Members: Spouse Housing: Apartment Are you a primary career resource specialist to a significant other at home: No Do you presently have visiting nurse or other home services: No Alcohol intake: never Patient Tobacco Use Status: Never used Tobacco service: No Current occupational status: retired Current occupation: right handed Physical Exam Extrem Other: He has 120 degree arc of motion bilateral knees a slight extension lag on the left knee with a lateral patellar tilting in varus alignment. Right knee is stable there is no effusion and he has good strength while standing and can stand from a seated position. Assessment & Plan Assessment & Plan (1) Bilateral shoulder pain: Code(s): M25.511 - Pain in right shoulder; M25.512 - Pain in left shoulder Category: Medical Plan: Under his has did motion but bilateral, mostly posterior, shoulder pain. No treatment indicated at this time. (2) History of bilateral knee replacement: Code(s): Z96.653 - Presence of artificial knee joint, bilateral Category: Surgical Plan: Under has had a bilateral knee replacement. I revised his right knee. His left knee has varus malalignment with likely loosening of the tibial component but he never wanted to do anything about it and it is stable and does not seem to be bothering. (3) History of revision of total replacement of right knee joint: Code(s): Z96.651 - Presence of right artificial knee joint Category: Medical Plan: Patient had a revision right knee arthroplasty with me approximately 5 years ago. His right knee looks good. I discussed the value of radiographs and given my lack of interest in surgical intervention and his lack of knee symptoms I do not think this is necessary. He agrees with me. He will return however to see the spine doctor should his back at worse and I renewed his prescription for physical therapy. (4) Low back pain: Code(s): M54.50 - Low back pain, unspecified Category: Medical Plan: PT ordered Orders: Orders PT Evaluation and Treatment Today M54.50 - Low back pain, unspecified, Z96.653 - Presence of artificial knee joint, bilateral Coding Level of Care Code Est Pt Level 4 (83239) Diagnoses Bilateral shoulder pain M25.511; M25.512 History of bilateral knee replacement Z96.653 History of revision of total replacement of right knee joint Z96.651 Low back pain M54.50
== END 2024-04-13 15:26 | disposition home or self-care (01) ==
PROVIDERS: PCP Registered Nurse; Visit Provider Orthopaedic Surgery
DX: M25.511 Pain in right shoulder (principal); M25.512 Pain in left shoulder; Z96.653 Presence of artificial knee joint, bilateral; M54.50 Low back pain, unspecified
CPT/HCPCS: 99214

== ENCOUNTER → 2024-04-13 12:47 | Outpatient (BNVA) | payer OTHER, SELFPAY | PROVIDERS: PCP Registered Nurse; Visit Provider Orthopaedic Surgery | DX: M25.511 Pain in right shoulder (principal); M25.512 Pain in left shoulder; M54.50 Low back pain, unspecified; Z96.653 Presence of artificial knee joint, bilateral | CPT/HCPCS: 99212 ==

== ENCOUNTER 2024-04-19 11:26 | Outpatient (AMB) | payer OTHER, SELFPAY ==
[2024-04-19 11:42] VITALS: BP 118/65; PULSE 81; BMI 26.3
--- NOTE | 2024-04-19 11:42 | A.OFFVIS_ITS ---
Vital Signs 04/19/24 11:42 Height 5 ft 2 in Weight 144 lb BMI 26.3 BP 118/65 Blood Pressure Location Lt brachial Position Sitting Pulse 81 Intake Visit Reasons: Barium swallow f/u Intake Note: Patient in office today in follow up of abdominal distension. CC: Patient reports that he is doing good as he is eating well and avoiding food triggers. Denies any new GI symptoms today. 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 The patient is quite [place]. He has noted that most of his diarrhea comes from lactose products. Educated. Lists printed in [place] for lactose dietary therapy from CNM and [facility]. ROV 3 mos. TODAY'S VISIT [place] #Diane Mariscal He is greatly improved from his initial presentation, but at times she will still have breakthrough diarrhea and he admits that at times he has dietary indiscretions. However with further discussion it seems that his stools are still on the looser side, and since he has tolerated the Creon extremely well I think it is worth trying increasing the dose to 2 caplets 3 times a day. He tells me that he is trying to gain muscle mass and will be doing some exercises. He will be getting a peddling machine to help increase with his leg strength which is a good idea. His primary care provider has also prescribed what sounds like protein shakes. There and agreement with the above plan and I will see them again in 6 months unless there is any problems. [facility] Medical History (Updated 04/19/24 @ 12:12 by NISH Kaba) Diverticulosis Hyponatremia Acute hyponatremia Colon cancer screening Erectile dysfunction Gastritis COVID-19 virus infection Hydrocele Cataract Hypercholesteremia Diabetes BPH (benign prostatic hyperplasia) Hypertension Surgical History (Updated 04/14/24 @ 09:02 by Israel Lee MD) Hx of colonoscopy History of bilateral knee replacement History of prostate surgery Family History Father Diabetes Mother Diabetes Uterus cancer Mother Cancer Social History Household Members: Spouse Housing: Apartment Are you a primary managed care analyst to a significant other at home: No Do you presently have visiting nurse or other home services: No Alcohol intake: never Patient Tobacco Use Status: Never used Tobacco service: No Current occupational status: retired Current occupation: right handed Review of Systems Const Denies fatigue, Denies fever(s), Denies night sweats, Denies poor appetite and Denies weight loss ENT Reports Normal hearing present, Denies dental pain, Denies dysphagia, Denies hearing loss, Denies mouth pain, Denies odynophagia, Denies throat swelling, Denies tongue swelling and Reports other (Dentition adequate) Card Reports no additional complaints Resp Reports no additional complaints GI Details: Denies abdominal pain, Denies melena, Denies bloating, Denies hematochezia, Denies constipation, Denies GI cramping, Denies dysphagia, Denies excessive flatus, Denies early satiety, Reports heartburn, Denies diarrhea, Reports loose stools, Denies nausea, Denies odynophagia, Denies vomiting and Denies hematemesis Musc Reports abnormal gait, Reports atrophy and Reports muscle weakness Skin/Breast Denies pruritus, Denies lesions, Denies rash and Denies jaundice Neuro Reports Normal hearing present, Denies Abnormal speech present and Reports abnormal gait Endo Denies fatigue Aller/Immun Denies throat swelling and Denies tongue swelling Physical Exam Const General: cooperative, no acute distress, well developed and well groomed Nutritional Appearance: average body habitus and well nourished Orientation/consciousness: oriented to person, oriented to place and oriented to time Limitations: language barrier and wheelchair HEENT Head: Yes normocephalic and Yes atraumatic Eyes General: appearance normal, both eyes and all related structures Pupils: Equal, round and reactive pupils present Neck Neck: Yes normal visual inspection and Yes no lymphadenopathy Thyroid: Thyroid normal Resp Effort & Inspection: normal respiratory effort and able to speak in complete sentences Auscultation: clear to auscultation bilaterally Cardio Rate: regular rate Rhythm: regular rhythm Heart sounds: Normal, physiologic split S2 sound present Peripheral pulses: radial pulses present and posterior tibial pulses present GI Inspection: No distended and No Abdominal panniculus present Palpation (GI): Soft to palpation, nontender, no guarding, not rigid and No hepatosplenomegaly present Percussion: Yes normal to percussion Auscultation: normal bowel sounds Rectal Exam - Male: Yes deferred Skin General skin exam: no rashes or lesions noted, turgor normal, skin not dry, no jaundice, No spider nevi and no striae Rashes: no rashes Nails: normal Neuro General: oriented to person, oriented to place and oriented to time Cranial nerves: Yes Equal, round and reactive pupils present and Yes Normal hearing present Speech: No Abnormal speech present Extrem General: Yes normal to inspection, No clubbing, No cyanosis and No edema Psych Appearance: grossly normal and well kempt Mental Status: mental status grossly normal Speech and movement: Normal speech and movement present Affect: normal affect Attitude: cooperative Thought process: Normal thought process present and not confabulating Thought content: Normal thought content present Insight: Limited insight present (Psych) Judgement: Limited judgement present (Psych) Assessment & Plan Assessment & Plan (1) Exocrine pancreatic insufficiency: Code(s): K86.81 - Exocrine pancreatic insufficiency Category: Medical (2) Lactose intolerance: Code(s): E73.9 - Lactose intolerance, unspecified Category: Medical Plan [place] #Diane Live He is greatly improved from his initial presentation, but at times she will still have breakthrough diarrhea and he admits that at times he has dietary indiscretions. However with further discussion it seems that his stools are still on the looser side, and since he has tolerated the Creon extremely well I think it is worth trying increasing the dose to 2 caplets 3 times a day. He tells me that he is trying to gain muscle mass and will be doing some exercises. He will be getting a peddling machine to help increase with his leg strength which is a good idea. His primary care provider has also prescribed what sounds like protein shakes. There and agreement with the above plan and I will see them again in 6 months unless there is any problems. Medications: New omeprazole 20 mg PO BID 60 caps 6RF Changed From [id number] 24,000-76,000 -120,000 unit (Creon) 2 caps PO BID 30 days 120 caps 6RF K58.9 - Irritable bowel syndrome, unspecified To [id number] 24,000-76,000 -120,000 unit (Creon) 2 caps PO TID 30 days 180 caps 6RF K58.9 - Irritable bowel syndrome, unspecified Coding Level of Care Code Est Pt Level 3 (29403) Diagnoses Exocrine pancreatic insufficiency K86.81 Lactose intolerance E73.9
== END 2024-04-19 13:19 | disposition home or self-care (01) ==
PROVIDERS: PCP Registered Nurse; Visit Provider Nurse Practitioner
DX: K86.81 Exocrine pancreatic insufficiency (principal); E73.9 Lactose intolerance, unspecified
CPT/HCPCS: 99213

== ENCOUNTER → 2024-04-19 11:26 | Outpatient (BNVA) | payer OTHER, SELFPAY | PROVIDERS: PCP Registered Nurse; Visit Provider Nurse Practitioner | DX: K86.81 Exocrine pancreatic insufficiency (principal); E73.9 Lactose intolerance, unspecified | CPT/HCPCS: 99212 ==

== ENCOUNTER 2024-04-29 06:19 | Inpatient (IN) | payer OTHER, SELFPAY ==
[2024-04-29] VITALS (8 sets, daily range): BP systolic 124–151; BP diastolic 64–77; PULSE 77–85; RESP 11–20; TEMP 36.2–36.7; O2SAT 96–99; BMI 25.8
--- NOTE | ~2024-04-29 | XR_ITS ---
EXAMINATION: XR CHEST CLINICAL INFORMATION: Status post left pleural effusion, drainage COMPARISON: 05/01/2024 TECHNIQUE: Frontal view of the chest was obtained. FINDINGS: Redemonstration of left chest tube with sidehole now projecting at or just within the left hemithorax. Persistent nioky-wj-vmxpkxue left pleural effusion. Redemonstration of volume loss in the left hemithorax with shift of mediastinal structures to the left. Degenerative changes in the thoracic spine. Redemonstration of extensive left basilar consolidation and left pleural effusion. Mild right basilar opacity. No gross pneumothorax is appreciated. XR/XR chest 1V IMPRESSION: Redemonstration of left chest tube with sidehole now projecting at or just within the left hemithorax. Correlation with clinical exam recommended. Persistent xtozn-zu-weekymlu left pleural effusion Redemonstration of extensive left basilar consolidation and left pleural effusion. Mild right basilar opacity. This study was presented today May 02, 2024 for interpretation. Stat results provided at this time as requested by referring provider. Electronically signed by: Rachel Joe MD 05/02/2024 09:53 AM EDT RP
--- NOTE | ~2024-04-29 | CT_ITS ---
EXAMINATION: CT ABDOMEN PELVIS WITHOUT IV CONTRAST CLINICAL INFORMATION: eval fluid COMPARISON: No prior CT available for comparison. TECHNIQUE: Multidetector volumetric imaging was performed from the superior aspect of the liver through the pubic symphysis and noncontrasted study. Sagittal and coronal reformatted images were obtained on the technologist's workstation. This CT examination was performed using dose optimization techniques as appropriate, variously including the following: *Automated exposure control *Adjustment of mA and/or kV according to patient size (this includes techniques or standardized protocols for targeted exams where dose is matched to indication/reason for exam; i.e. extremities or head) *Use of iterative reconstruction technique DLP: 426 mGy-cm FINDINGS: LOWER THORAX: Large left pleural effusion. HEPATOBILIARY: No focal hepatic lesions. No biliary ductal dilatation. GALLBLADDER: Gallbladder unremarkable. SPLEEN: Spleen is normal in size. PANCREAS: No focal mass or ductal dilatation. STOMACH AND GASTROINTESTINAL TRACT: Stomach is grossly unremarkable. There is no bowel distention or thickening. No CT evidence of appendicitis. ADRENALS: No adrenal nodules. KIDNEYS/URETERS: Evaluation of the kidneys is limited due to lack of contrast, fluid-filled structure parahilar region left kidney 2.2 cm likely a liver cyst, Bosniak class I, this does not require follow-up imaging can commonly benign. There is perinephric fat stranding around the left kidney and in the left gutter uncertain etiology. Cannot rule out inflammation, infection, others. No kidney stone or hydronephrosis. URINARY BLADDER: Partially decompressed. PELVIC VISCERA: Unremarkable PERITONEUM: No free air or fluid. LYMPH NODES: No lymphadenopathy. VASCULAR:Abdominal aorta normal in size, no aneurysm found. BONES, ABDOMINAL WALL AND SOFT TISSUES: Right inguinal hernia containing fat and loop of bowel without causing obstruction. Spondylosis of lumbar spine, mild degenerative arthritis of symphysis pubis bilateral hip joints, SI joints and lumbar spine. CT/CT abdomen pelvis wo IV con IMPRESSION: Limited noncontrasted study. 1. Large left pleural effusion. 2. There is perinephric fat stranding around the left kidney and in the left gutter uncertain etiology. Cannot rule out underlying infection, inflammation among others.. No kidney stone or hydronephrosis. Evaluation of the kidneys is limited due to lack of contrast. 3. Right inguinal hernia containing fat and loop of bowel without causing obstruction. Electronically signed by: Nnia Rios MD 04/29/2024 01:20 PM EDT RP
--- NOTE | ~2024-04-29 | XR_ITS ---
EXAMINATION: XR CHEST 2 VIEWS CLINICAL INFORMATION: Large left pleural effusion COMPARISON: Prior study one day earlier TECHNIQUE: XR CHEST 2 VIEWS, 2 Views Lungs and Zuleyma: Redemonstration of very large left pleural effusion with fluid reaching to the level above the zuleyma, unchanged from prior exam. Cannot rule out underlying infiltrate and/or atelectasis. Heart: Heart and mediastinum are shifted to the right. Bones: Skeletal structures included are normal for patient's age. XR/XR chest 2V IMPRESSION: Redemonstration of very large left pleural effusion with fluid reaching to the level above the zuleyma, unchanged from prior exam. Cannot rule out underlying infiltrate and/or atelectasis. Electronically signed by: Nina Rios MD 04/30/2024 10:02 AM EDT
--- NOTE | ~2024-04-29 | XR_ITS ---
EXAMINATION: XR CHEST CLINICAL INFORMATION: Status post Pleurx catheter placement. COMPARISON: Chest CT dated 05/03/2024. TECHNIQUE: Frontal view of the chest was obtained. FINDINGS: Left-sided Pleurx catheter with the tip in the left mid chest. Persistent pleural thickening with a trace left-sided pleural effusion, similar when compared to the recent CT. Left basilar opacities are redemonstrated. No new or increasing left-sided pleural effusion or pneumothorax. No right-sided pleural effusion or pneumothorax. No right-sided airspace consolidation. Stable cardiomediastinal silhouette. XR/XR chest 1V IMPRESSION: Left-sided Pleurx catheter with the tip in the left mid chest. Persistent pleural thickening with a trace left-sided pleural effusion and left basilar opacities, similar when compared to the recent CT. Electronically signed by: Ross Carreno MD 05/05/2024 10:59 AM EDT
--- NOTE | ~2024-04-29 | XR_ITS ---
EXAMINATION: XR CHEST CLINICAL INFORMATION: Chest tube COMPARISON: Chest 04/30/2024 TECHNIQUE: AP upright portable view of the chest was obtained. 2:15 PM FINDINGS: The patient is rotated on this AP view. Interval placement of left chest tube. The sidehole chest tube is within the soft tissues outside of the left hemithorax. There is significant interval decrease in the previously noted left pleural effusion with small left pleural effusion remaining. Underlying infiltrate and/or atelectasis cannot be excluded. No right pleural effusion. Trace atelectasis and/or infiltrate at the right lung base. Evaluation the cardiac silhouette is limited by the patient is marked rotation. No acute bony abnormality. XR/XR chest 1V IMPRESSION: 1. Interval placement of left chest tube. The sidehole chest tube is within the soft tissues outside of the left hemithorax. 2. Significant interval decrease in left pleural effusion with small left pleural effusion remaining. 3. Trace atelectasis and/or infiltrate at the right lung base. Electronically signed by: Faviola Kaur MD 05/01/2024 04:18 PM EDT
--- NOTE | ~2024-04-29 | XR_ITS ---
EXAMINATION: XR CHEST CLINICAL INFORMATION: Post thoracentesis COMPARISON: Chest radiograph from earlier in the same day TECHNIQUE: Frontal view of the chest was obtained. FINDINGS: Cardiomediastinal silhouette is partially obscured. There is a persistent moderate to large left-sided pleural effusion. Right lung is grossly clear. XR/XR chest 1V IMPRESSION: Persistent moderate to large left-sided pleural effusion. Electronically signed by: Jerzy Verduzco MD 04/29/2024 04:30 PM EDT
--- NOTE | ~2024-04-29 | CT_ITS ---
EXAMINATION: CT CHEST WITH CONTRAST CLINICAL INFORMATION: Question of lung cancer COMPARISON: Chest radiograph 05/02/2024, CT chest 04/29/2024 TECHNIQUE: Multidetector volumetric CT imaging of the chest was obtained after the administration of 65 mL of Omnipaque 350 intravenous contrast without immediate adverse reactions. Axial MIP volume rendering provided. Sagittal and coronal reformatted images were obtained. This CT examination was performed using dose optimization techniques as appropriate, variously including the following: *Automated exposure control *Adjustment of mA and/or kV according to patient size (this includes techniques or standardized protocols for targeted exams where dose is matched to indication/reason for exam; i.e. extremities or head) *Use of iterative reconstruction technique DLP: 151 mGy-cm FINDINGS: LUNGS AND PLEURA: Since the prior study the patient has undergone a left-sided thoracentesis with a large bore chest tube in place with its tip abutting the anterior superior mediastinum. Small amount of residual fluid is present in the pleural space along with some air or. Most of the fluid is pulmonic at the left lung base. There is atelectasis seen in the left upper lobe adjacent to the superior mediastinum as well as in the lingula and left lower lobe. A discrete lung mass is not seen. No right-sided pleural effusion is seen. No right lung masses seen. MEDIASTINUM: Again seen are prominent mediastinal lymph nodes the largest measuring 1.1 cm in short axis dimension in the left precarinal region . AXILLA: No lymphadenopathy. Subcutaneous emphysema is present in the left chest wall UPPER ABDOMEN: Unremarkable . No adrenal masses are seen OSSEOUS STRUCTURES: Unremarkable. CT/CT chest w IV con IMPRESSION: 1. Status post left-sided thoracentesis with large bore chest tube in place. Small amount of residual fluid is present in the pleural space along with some air. 2. There is atelectasis seen in the left upper lobe, lingula and left lower lobe. 3. A discrete lung mass is not seen. 4. Prominent mediastinal lymph nodes are again seen. Fleischner guidelines were followed. Electronically signed by: Corby Pantoja MD 05/03/2024 05:51 PM EDT
--- NOTE | ~2024-04-29 | CT_ITS ---
EXAMINATION: CT CHEST WITHOUT IV CONTRAST. CLINICAL INFORMATION: eval effusions vs pna vs ?mass COMPARISON: Chest x-ray same day earlier TECHNIQUE: Multidetector volumetric CT imaging of the chest was done. Axial MIP volume rendering provided. Sagittal and coronal reformatted images were obtained. This CT examination was performed using dose optimization techniques as appropriate, variously including the following: *Automated exposure control *Adjustment of mA and/or kV according to patient size (this includes techniques or standardized protocols for targeted exams where dose is matched to indication/reason for exam; i.e. extremities or head) *Use of iterative reconstruction technique CONTRAST: Noncontrasted study. DLP: 210 mGy-cm FINDINGS: MILKING MACHINE TECHNICIAN: LINES/TUBES: Contract Consultant reviewed, no lines. LUNGS: Lung parenchyma: Atelectasis of left lower lobe, partial atelectasis left upper lobe, uncertain etiology, cannot rule out underlying central hilar mass which would be difficult to visualize due to lack of contrast. Right lung field is clear. Lung nodules/masses: There is 7 mm nodule upper segment right lower lobe. It would be difficult to assess for left lung nodule or masses due to the large left pleural effusion and atelectasis present. AIRWAYS: There is occlusion, obstruction of left bronchus to the left lower lobe, uncertain etiology, concerning for possible underlying pathologic process. Trachea and right bronchus are clear. PLEURA: Very large left pleural effusion causing mass effect, mediastinal shift to the right. MEDIASTINUM AND AAYUSH: Mildly enlarged pretracheal lymph nodes largest 1.5 x 1.2 cm. No mediastinal mass. VESSELS: HEART AND PERICARDIUM: Thoracic aorta is normal in size. Heart is normal in size. No pericardial effusion. There are coronary calcifications. Pulmonary arteries are normal in size. LOWER NECK, AXILLA: The visualized thyroid gland is unremarkable. There is 1.2 cm subcutaneous structure in the right axilla uncertain etiology, could be a sebaceous cyst versus lesion. Refer image 15 series of 3. VISUALIZED ABDOMEN: Unremarkable CHEST WALL AND BONES: No chest wall mass. The visualized bony thorax is within normal limits. CT/CT chest wo IV con IMPRESSION: 1. Very large left pleural effusion causing mass effect and mediastinal shift to the right would recommend thoracentesis. 2. Atelectasis of left lower lobe, partial atelectasis left upper lobe, uncertain etiology, cannot rule out underlying central hilar mass which would be difficult to visualize due to lack of contrast. May consider correlation with FOLLOW-UP CT CHEST WITH CONTRAST AFTER THE THORACENTESIS AND LUNG EXPANSION. 3. There is occlusion of the left bronchus to the left lower lobe, uncertain etiology, cannot rule out underlying pathologic process. 4. Mildly enlarged mediastinal lymph nodes. 5. There is 1.2 cm subcutaneous structure in the right axilla could be a sebaceous cyst versus a skin lesion. 6. There is 7 mm nodule upper segment right lower lobe. Electronically signed by: Nina Rios MD 04/29/2024 01:05 PM EDT
--- NOTE | ~2024-04-29 | XR_ITS ---
EXAMINATION: XR CHEST 2 VIEWS CLINICAL INFORMATION: sob, cough, cp COMPARISON: April 30, 2023 TECHNIQUE: XR CHEST 2 VIEWS, 2 Views Lungs and Zuleyma: Dense opacification at left lung base probably marked elevation of left hemidiaphragm, and probably a underlying dense consolidation, atelectasis, infiltrate pleural effusion. There is also thickening pleural surface and left lung apex. Pleura: Left pleural effusion. Heart: The heart is normal in size. Mediastinum: The mediastinum is within normal limits.. Bones: Skeletal structures included are normal for patient's age. XR/XR chest 2V IMPRESSION: Large Dense opacification at left lung probably combination of elevation left hemidiaphragm, pleural effusion, infiltrate and/or atelectasis, would recommend correlation with follow-up CT scan to rule out possible underlying mass. Electronically signed by: Nina Rios MD 04/29/2024 08:50 AM EDT
--- NOTE | 2024-04-29 06:50 | ECG_ITS ---
Test Reason : DYSPNEA Blood Pressure : / mmHG Vent. Rate : 072 BPM Atrial Rate : 072 BPM P-R Int : 134 ms QRS Dur : 122 ms QT Int : 376 ms P-R-T Axes : 021 025 024 degrees QTc Int : 411 ms Normal sinus rhythm Right bundle branch block Abnormal ECG When compared with ECG of 17-DEC-2021 13:37, No significant change was found Referred By: Lisa Bansal Electronically Signed By:JULES MILES MD
[2024-04-29 07:06] LABS: MANUAL DIFF FLAG NO
[2024-04-29] MEDS: Albuterol Sulfate (0.083%) 2.5 MG/3 ML VIAL.NEB INHALE (07:06)
[2024-04-29 07:08] LABS: Basophils Percent Auto 0.4 % (0-2); Eosinophils Absolute Auto 0.3 X10*3/uL (0.0-0.4); Eosinophils Percent Auto 2.9 % (0-4); Hematocrit 31.8 % (42.0-52.0); Hemoglobin 11.1 g/dl (14.0-18.0); Imm Gran Pct Auto 1.1 % (0.0-0.4); Lymphocytes Absolute Auto 0.8 X10*3/uL (1.2-4.9); Lymphocytes Percent Auto 8.8 % (20-40); Mean Corpuscular HGB Conc 34.9 g/dl (31.0-36.0); Mean Corpuscular Hemoglobin 27.4 pg (27.0-33.0); Mean Corpuscular Volume 78.5 fL (80.0-98.0); Mean Platelet Volume 8.2 fL (9.4-12.4); Monocytes Absolute Auto 0.9 X10*3/uL (0.1-1.2); Monocytes Percent Auto 9.3 % (2-11); Neutrophils Absolute Auto 7.2 x10*3/uL (2.0-8.3); Neutrophils Percent Auto 77.5 % (45-73); Platelet Count 386 X10*3/uL (160-400); Red Blood Count 4.05 X10*6/uL (4.60-5.80); Red Cell Distribution Width 15.4 % (11.0-16.0); White Blood Count 9.2 X10*3/uL (4.8-10.8)
--- NOTE | 2024-04-29 07:09 | ED.SOB ---
HPI - SOB/Dyspnea General Chief Complaint: Dyspnea Stated Complaint: SOB, chest tightness, congestion Time Seen by Provider: 04/29/24 06:34 Source: patient, family, RN notes reviewed and old records reviewed History of Present Illness ED Provider: Lisa Bansal PA-C HPI Narrative: 78-year-old male with past medical history diverticulosis, gastritis, hydrocele, diabetes, BPH, HTN, presenting to the ED complaining productive cough, SOB, chest discomfort, wheezing x 1 week. Denies recent travel, sick contacts, fever, pedal edema, sore throat. Denies using inhalers or steroids. Related Data Home Medications ?Medication ?Instructions ?Recorded ?Confirmed atorvastatin 10 mg tablet 10 mg PO DAILY 05/08/20 04/29/24 blood sugar diagnostic #10 ea 10/04/20 07/27/23 cholecalciferol (vitamin D3) 50 50 mcg PO DAILY 10/04/20 04/29/24 mcg (2,000 unit) capsule lancets 33 gauge #100 ea 10/04/20 07/27/23 metformin 1,000 mg tablet 1,000 mg PO BID 10/04/20 04/29/24 multivitamin 1 tab PO DAILY 10/04/20 04/29/24 dapagliflozin propanediol 10 mg 10 mg PO QAM 10/09/21 04/29/24 tablet (Farxiga) sitagliptin phosphate 25 mg tablet 25 mg PO QAM 05/04/23 04/29/24 (Januvia) losartan 25 mg tablet 25 mg PO BEDTIME 01/05/24 04/29/24 nifedipine 30 mg tablet,extended 30 mg PO BEDTIME 01/05/24 04/29/24 release acetaminophen 325 mg tablet 650 mg PO Q6H PRN Pain 04/29/24 04/29/24 psyllium husk 3.4 gram/5.4 gram 1 tsp PO DAILY 04/29/24 04/29/24 oral powder (Metamucil) Previous Rx's ?Medication ?Instructions ?Recorded walker #1 ea 04/30/20 sildenafil 100 mg tablet (Viagra) 100 mg PO DAILY PRN erectile 01/26/24 dysfunction 90 days #20 tabs terazosin 5 mg capsule 5 mg PO BEDTIME 90 days #90 caps 01/26/24 pfsogy-yysfcpuh-yzrkehs 2 cap PO TID 30 days #180 caps 04/19/24 24,000-76,000-120,000 unit capsule,delayed rel (Creon) omeprazole 20 mg capsule,delayed 20 mg PO BID #60 caps 04/19/24 release Allergies Allergy/AdvReac Type Severity Reaction Status Date / Time No Known Allergies Allergy Verified 04/29/24 06:43 [No Known Allergies*] Review of Systems Review of Systems: Yes all other systems are reviewed and are negative Constitutional: Constitutional: Reports as per [facility] Past Medical History Attestation statement: The following information was validated with the patient. Source: old records reviewed Medical History (Updated 04/29/24 @ 16:07 by ROB Ortiz) Diverticulosis Hyponatremia Acute hyponatremia Colon cancer screening Erectile dysfunction Gastritis COVID-19 virus infection Hydrocele Cataract Hypercholesteremia Diabetes BPH (benign prostatic hyperplasia) Hypertension Surgical History Hx of colonoscopy History of bilateral knee replacement History of prostate surgery Family History Family History Father Diabetes Mother Diabetes Uterus cancer Mother Cancer Social History Social History Household Members: Spouse Housing: Apartment Are you a primary career development consultant to a significant other at home: No Do you presently have visiting nurse or other home services: No Alcohol intake: never Patient Tobacco Use Status: Never used Tobacco Smoked in Last 30 Days: No Use of substances other than those prescribed or required for medical reasons: No Advance Directives: No Advance Directives Information Provided: Yes Do you have a plan to hurt others: No Plan service: No Current occupational status: retired Current occupation: right handed Physical Exam Vital Signs: Vital Signs: Last Vital Signs Temp 97.8 F 04/29/24 15:09 Pulse 80 04/29/24 15:09 Resp 11 L 04/29/24 15:09 BP 141/75 H 04/29/24 12:00 Pulse Ox 97 04/29/24 15:09 O2 Del Method Room Air 04/29/24 15:09 BMI result Body Mass Index 25.8 Const: General: cooperative, healthy appearing and no acute distress Orientation/consciousness: patient oriented x3 Limitations: no limitations HEENT: Head: Yes normal to inspection and Yes atraumatic Ears: hearing grossly normal bilaterally General nose exam: Normal external nose present Face and sinus: Yes normal facial exam Mouth: Normal oral and palatal mucosa present and no drooling Throat: Yes posterior oropharynx normal and Yes uvula midline Eyes: General: appearance normal, both eyes and all related structures EOM: EOMs intact bilaterally Neck: Neck: Yes normal visual inspection and Yes no meningeal signs Resp: Effort & Inspection: normal respiratory effort and no respiratory distress Auscultation: wheezes expiratory wheezes and throughout and diminished lung sounds on the left in the lower lung arellano Cardio: Rate: regular rate Heart sounds: S1 normal heart sound present and S2 normal heart sound present GI: Inspection: Yes normal to inspection Palpation (GI): Soft to palpation, nontender, no guarding and not rigid : General: Yes no CVA tenderness Back/Spine/Pelvis: Back: no CVA tenderness Skin: Rashes: no rashes Wounds: no wounds Neuro: General: patient oriented x3, tone normal and no meningeal signs Cranial nerves: Yes CN's II-XII intact bilaterally Gait exam (Neuro): Normal gait present Extrem: General: Yes normal to inspection, Yes no pedal edema and Yes no calf tenderness Course Course Course Narrative: > 0815--on re-evaluation after DuoNeb wheezing improved however continued left lung diminished breath sounds. Cough still appreciated. 0826--H/H stable. Chronic hyponatremia. Magnesium low at 1.3 > 2g IV repletion ordered -troponin negative. Labs otherwise reassuring -COVID/flu/RSV negative. 0934--XR chest 2V IMPRESSION: Large Dense opacification at left lung probably combination of elevation left hemidiaphragm, pleural effusion, infiltrate and/or atelectasis, would recommend correlation with follow-up CT scan to rule out possible underlying mass. > will obtain chest CT for further eval 1316--CT chest wo IV con IMPRESSION: 1. Very large left pleural effusion causing mass effect and mediastinal shift to the right would recommend thoracentesis. 2. Atelectasis of left lower lobe, partial atelectasis left upper lobe, uncertain etiology, cannot rule out underlying central hilar mass which would be difficult to visualize due to lack of contrast. May consider correlation with FOLLOW-UP CT CHEST WITH CONTRAST AFTER THE THORACENTESIS AND LUNG EXPANSION. 3. There is occlusion of the left bronchus to the left lower lobe, uncertain etiology, cannot rule out underlying pathologic process. 4. Mildly enlarged mediastinal lymph nodes. 5. There is 1.2 cm subcutaneous structure in the right axilla could be a sebaceous cyst versus a skin lesion. 6. There is 7 mm nodule upper segment right lower lobe. >> will consult thoracic surgery, Dr. Lainez > recommended admission with pulmonary/thoracic consult. Case discussed with hospitalist CT abdomen pelvis wo IV con IMPRESSION: Limited noncontrasted study. 1. Large left pleural effusion. 2. There is perinephric fat stranding around the left kidney and in the left gutter uncertain etiology. Cannot rule out underlying infection, inflammation among others.. No kidney stone or hydronephrosis. Evaluation of the kidneys is limited due to lack of contrast. 3. Right inguinal hernia containing fat and loop of bowel without causing obstruction. -on-call thoracic surgeon does not perform thoracentesis', interventional radiology is not back until Wednesday due to holiday weekend. Thoracentesis will be performed in the ED by Dr. Clark. -consent signed & in patient chart. Reviewed with hvac designer Reevaluation(s) Reevaluation #1: DR. Clark's procedure note: Left thoracocentesis, risk and benefit was discussed with the patient and son formal consent in the chart, time-out to ID was confirmed, site of the procedure was identified, chest x-ray was reviewed by myself, patient was placed sitting position leaning forward, using 5 cc of lidocaine, ultrasound guided, marked at 8 intercostal space posterior axillary line, a used 22 gauge spinal needle, about 500 cc of serosanguineous exudate was drained, patient is significantly feeling better, with improvement of the breathing and also left hip pain. Patient tolerated the procedure well, postoperative x-ray was reviewed by me no apparent complication. Patient will get admitted to medical service. Time: 16:32 Medications Administered Discontinued Medications Generic Name Dose Route Start Last Admin Trade Name Freq PRN Reason Stop Dose Admin Albuterol Sulfate 2.5 mg 04/29/24 07:03 04/29/24 07:06 Albuterol Sulfate (0.083%) 2.5 Mg/3 Ml Vial.Neb INHALE 04/29/24 07:04 2.5 mg ONCE ONE Administration Benzonatate 100 mg 04/29/24 08:28 04/29/24 09:30 Benzonatate 100 Mg Capsule PO 04/29/24 08:29 100 mg ONCE ONE Administration Ceftriaxone Sodium 1 gm 04/29/24 09:35 04/29/24 09:54 Ceftriaxone Sodium 1 Gm Vial IVPUSH 04/29/24 09:36 1 gm ONCE ONE Administration Magnesium Sulfate 2 gm in 50 mls @ 25 mls/hr 04/29/24 07:57 04/29/24 09:59 Magnesium Sulfate/H2o IV 04/29/24 09:56 Infused ONCE ONE Infusion Azithromycin 500 mg/ Sodium 250 mls @ 125 mls/hr 04/29/24 09:35 04/29/24 12:13 Chloride IV 04/29/24 11:34 Infused ONCE ONE Infusion Lidocaine HCl 10 ml 04/29/24 14:58 04/29/24 15:51 Lidocaine Hcl 1 % Mpf 5 Ml Vial INFILTRATI 04/29/24 14:59 10 ml ONCE ONE Administration Medical Decision Making Medical Decision Making MDM Narrative: 78-year-old male with past medical history diverticulosis, gastritis, hydrocele, diabetes, BPH, HTN, presenting to the ED complaining productive cough, SOB, chest discomfort, wheezing x 1 week. On exam vital signs stable, NAD, nontoxic appearing, no hypoxia, appreciable expiratory wheeze noted throughout with diminished lung sounds to left lung field. No pedal edema. Concern for viral illness vs pneumonia vs CHF. Lower suspicion for acute ACS, DVT/PE, dissection. Plan: EKG, labs, CXR, viral testing, ED bronch protocol Please refer to course for remaining clinical decision making, interpretation of labs/imaging results, and discussions with consultants and/or family members. Differential Diagnosis Differential Diagnoses: The differential diagnosis associated with the presentation includes As above Admission/Observation Consideration of admission/observation: Escalation of care including admission/observation considered Lab Data [facility] Lab Attestation statement: I reviewed the patient's lab results. 04/29/24 07:02 04/29/24 07:02 Labs: Lab Results 04/29/24 Range/Units 07:02 WBC 9.2 (4.8-10.8) X10*3/uL RBC 4.05 L (4.60-5.80) X10*6/uL Hgb 11.1 L (14.0-18.0) g/dl Hct 31.8 L (42.0-52.0) % MCV 78.5 L (80.0-98.0) fL MCH 27.4 (27.0-33.0) pg MCHC 34.9 (31.0-36.0) g/dl RDW 15.4 (11.0-16.0) % Plt Count 386 (160-400) X10*3/uL MPV 8.2 L (9.4-12.4) fL Immature Gran % (Auto) 1.1 H (0.0-0.4) % Neut % (Auto) 77.5 H (45-73) % Lymph % (Auto) 8.8 L (20-40) % Graves % (Auto) 9.3 (2-11) % Eos % (Auto) 2.9 (0-4) % Baso % (Auto) 0.4 (0-2) % Lymph # (Auto) 0.8 L (1.2-4.9) X10*3/uL Graves # (Auto) 0.9 (0.1-1.2) X10*3/uL Eos # (Auto) 0.3 (0.0-0.4) X10*3/uL Baso # (Auto) 0.0 (0.0-0.2) X10*3/uL Abs Immat Gran (auto) 0.10 H (0.00-0.03) X10*3/uL Absolute Neuts (auto) 7.2 (2.0-8.3) x10*3/uL Absolute Nucleated RBC 0.000 (0.0-0.012) X10*3/uL Nucleated RBC % (auto) 0.0 (0.0-0.2) /100WBC PT 13.6 H (10.9-12.4) SEC INR 1.2 H (0.9-1.1) Sodium 130 L (135-145) mmol/L Potassium 3.8 (3.3-5.1) mmol/L Chloride 98 (96-108) mmol/L Carbon Dioxide 20 L (22-29) mmol/L Anion Gap 16 (12-20) BUN 13 (9-16) mg/dL Creatinine 0.64 (0.5-1.4) mg/dL Estim Creat Clear Calc 74.6 Estimated GFR > 60 Random Glucose 108 (60-115) mg/dL Calcium 9.0 D (8.4-10.2) mg/dL Magnesium 1.3 L* (1.6-2.6) mg/dL Total Bilirubin 0.6 (0.0-1.0) mg/dL Direct Bilirubin 0.3 (0.0-0.5) mg/dL AST 12 (5-37) U/L ALT 12 (0-40) U/L Alkaline Phosphatase 93 (39-117) U/L Troponin I High Sens 3.9 (<3.5-35.0) ng/L B-Natriuretic Peptide 39 (<100) pg/mL Total Protein 6.5 (6.5-8.0) g/dL Albumin 3.6 (3.5-5.0) g/dL Influenza Type A (PCR) NEGATIVE (Negative) Influenza Type B (PCR) NEGATIVE (Negative) RSV RNA Qual (PCR) NEGATIVE (Negative) SARS-CoV-2 RNA (RT-PCR) NEGATIVE (Negative) Independent Interpretation I performed an independent interpretation of an: EKG (My interpretation EKG normal sinus rhythm rate of 72. UT interval 134. QTC 411. No significant change when compared to prior) and Plain X-Ray (My interpretation, large left-sided pleural effusion vs infiltrate appreciated.) Radiology Impression Discussion of test interpretation with radiology: I have reviewed the radiologist's reading. Independent Historian Clinical information obtained from an independent historian. History obtained from or confirmed by: Other (Daughter) External Record Review External record reviewed: Inpatient record, Office record, Outpatient record, Prior outpatient labs, Prior outpatient radiology, Primary care record and Outside ED record Tests considered The following testing was considered but not selected: As above Chronic Conditions Patient?s care impacted by: Hypertension Critical Care Time Critical Care Time Critical Care Time: Yes Total Critical Care Time: 60 Attestation: I have personally provided critical care time exclusive of time spent on separately billable procedures. Time includes review of lab data, radiology results, discussion with consultants, and monitoring for potential decompensation. Intervention performed as documented. Discharge Plan Discharge Clinical Impression: Large pleural effusion Patient Disposition: Admitted As Inpatient
[2024-04-29 07:28] LABS: B Type Natriuretic Peptide 39 pg/mL (<100)
[2024-04-29 07:31] LABS: Troponin-I High Sensitivity 3.9 ng/L (<3.5-35.0)
[2024-04-29 07:35] LABS: Alanine Aminotransferase 12 U/L (0-40); Albumin Level 3.6 g/dL (3.5-5.0); Alkaline Phosphatase 93 U/L (39-117); Anion Gap 16 (12-20); Aspartate Amino Transferase 12 U/L (5-37); Bilirubin Direct 0.3 mg/dL (0.0-0.5); Bilirubin Total 0.6 mg/dL (0.0-1.0); Blood Urea Nitrogen 13 mg/dL (9-16); Carbon Dioxide 20 mmol/L (22-29); Chloride 98 mmol/L (96-108); Creatinine Clr Calc Pharmacy 74.6; Estimated Glomerular Filt Rate > 60; Glucose Random 108 mg/dL (60-115); Potassium 3.8 mmol/L (3.3-5.1); Sodium 130 mmol/L (135-145); Total Protein 6.5 g/dL (6.5-8.0)
--- NOTE | 2024-04-29 07:38 | PC.NURSE ---
patient presents to ED with cc of shortness of breath for the last week or so. patient states it has been progressively getting worse and he feels run down patient with auditory wheezes throughout, recieved neb treatment from respiratory. patient denies fevers or sick contacts, denies chills, chest pain, or other symptoms, just the cough and fatigue. patient able to speak in clear and complete sentences, oxygen satuations remain WNL on room air. patient placed on teletypesetter monitor, HR WNL. EKG completed. 18g IV placed in L. forearm. plan of care is ongoing.
[2024-04-29 07:45] LABS: Influenza A PCR NEGATIVE (Negative); Influenza B PCR NEGATIVE (Negative); Resp Syncy Virus RNA Qual PCR NEGATIVE (Negative); SARS COV2 PCR INHOUSE NEGATIVE (Negative)
[2024-04-29 07:50] LABS: INTERNATIONAL NORM RATIO 1.2 (0.9-1.1); Prothrombin Time 13.6 SEC (10.9-12.4)
[2024-04-29 07:57] LABS: Magnesium 1.3 mg/dL (1.6-2.6)
[2024-04-29] MEDS: Magnesium Sulfate/H2O 2 GM/50 ML PIGGYBACK IV ×2 (08:23→20:44)
[2024-04-29] MEDS: Benzonatate 100 MG CAPSULE PO (09:30)
[2024-04-29] MEDS: Azithromycin 500 MG in 0.9 % Sodium Chloride 250 ML 125 MG IV (09:54)
[2024-04-29] MEDS: cefTRIAXone sodium 1 GM VIAL IVPUSH (09:54)
--- NOTE | 2024-04-29 11:06 | PC.NURSE ---
patient requesting to use commode, able to stand and pivot onto commode to have bowel movement
--- NOTE | 2024-04-29 12:57 | PC.NURSE ---
patient resting comfortably on stretcher, remains on technology sales consultant at this time, grandson at bedside, offering no complaits at this time.
--- NOTE | 2024-04-29 13:00 | MHC.EDTECH ---
did vitals and reposition in bed
[2024-04-29] MEDS: Lidocaine HCl 1 % MPF 5 ML VIAL 10 ML INFILTRATI (15:51)
--- NOTE | 2024-04-29 15:56 | MHC.EDTECH ---
. Patient was feeling uncomfortable in bed.Did repositioning in bed.
--- NOTE | 2024-04-29 16:03 | P.HPHOSP_ITS ---
History of Present Illness Date of Service: 04/29/24 Attending physician on admission: [facility] Chief Complaint: I was having trouble breathing This is a 78-year-old Cameroonian-speaking only male with a past medical history significant for fwb-rfmbnye-wdvaugqmq diabetes, anemia, hypertension, hyperlipidemia, BPH who presents to the emergency department today for evaluation of shortness of breath, wheezing and a productive cough ongoing for the past week. Patient's grandson is present at bedside interpreting Cameroonian per patient request. Patient is seen status post bedside thoracentesis and is currently reporting ?feeling better, I do not have pain and I am not as short of breath?. Patient denies ever needing a thoracentesis before and also denies any history of heart failure. Chest x-ray:Large Dense opacification at left lung probably combination of elevation left hemidiaphragm, pleural effusion, infiltrate and/or atelectasis, would recommend correlation with follow-up CT scan to rule out possible underlying mass. CT chest without:Multidetector volumetric CT imaging of the chest was done. Axial MIP volume rendering provided. Sagittal and coronal reformatted images were obtained. CT abdomen and pelvis without:1. Large left pleural effusion. 2. There is perinephric fat stranding around the left kidney and in the left gutter uncertain etiology. Cannot rule out underlying infection, inflammation among others.. No kidney stone or hydronephrosis. Evaluation of the kidneys is limited due to lack of contrast. 3. Right inguinal hernia containing fat and loop of bowel without causing obstruction. Initial laboratory results: H/H 11.1/31.8, platelets 386, PT/INR 2.6-1.2, Na 130, carbon dioxide 20, magnesium 1.3, influenza a/B, RSV and [id number] negative. In the emergency department and pelvis performed and the patient received 2.5 mg inhaled albuterol sulfate, 2 g magnesium sulfate IV, 100 mg p.o. Tessalon Perles, 1 g ceftriaxone, 500 mg IV azithromycin. The decision was made to admit patient for medical management. Review of Systems 2 Review of Systems: A complete 12 point review of systems was performed and are negative if not noted in HPI. [facility] Medical History (Updated 04/29/24 @ 17:50 by ROB Ortiz) Diverticulosis Hyponatremia Acute hyponatremia Colon cancer screening Erectile dysfunction Gastritis COVID-19 virus infection Hydrocele Cataract Hypercholesteremia Diabetes BPH (benign prostatic hyperplasia) Hypertension Family History Father Diabetes Mother Diabetes Uterus cancer Mother Cancer Surgical History Hx of colonoscopy History of bilateral knee replacement History of prostate surgery Social History Household Members: Spouse Housing: Apartment Are you a primary critical care nurse practitioner to a significant other at home: No Do you presently have visiting nurse or other home services: No Alcohol intake: never Patient Tobacco Use Status: Never used Tobacco Smoked in Last 30 Days: No Use of substances other than those prescribed or required for medical reasons: No Advance Directives: No Advance Directives Information Provided: Yes Do you have a plan to hurt others: No Plan service: No Current occupational status: retired Current occupation: right handed Meds Allergies Allergy/AdvReac Type Severity Reaction Status Date / Time No Known Allergies Allergy Verified 04/29/24 06:43 [No Known Allergies*] Home Medications ?Medication ?Instructions ?Recorded ?Confirmed ?Last Taken ?Type atorvastatin 10 mg tablet 10 mg PO DAILY 05/08/20 04/29/24 07/01/20 History blood sugar diagnostic #10 ea 10/04/20 07/27/23 Unknown History cholecalciferol (vitamin D3) 50 50 mcg PO DAILY 10/04/20 04/29/24 Unknown History mcg (2,000 unit) capsule lancets 33 gauge #100 ea 10/04/20 07/27/23 Unknown History metformin 1,000 mg tablet 1,000 mg PO BID 10/04/20 04/29/24 Unknown History multivitamin 1 tab PO DAILY 10/04/20 04/29/24 Unknown History dapagliflozin propanediol 10 mg 10 mg PO DAILY 10/09/21 04/29/24 Unknown History tablet (Farxiga) sitagliptin phosphate 25 mg tablet 25 mg PO DAILY 05/04/23 04/29/24 Unknown History (Januvia) losartan 25 mg tablet 25 mg PO BEDTIME 01/05/24 04/29/24 Unknown History nifedipine 30 mg tablet,extended 30 mg PO BEDTIME 01/05/24 04/29/24 Unknown History release acetaminophen 325 mg tablet 650 mg PO Q6H PRN Pain 04/29/24 04/29/24 Unknown History omeprazole 20 mg capsule,delayed 20 mg PO BID@0630,1630 04/29/24 04/29/24 Unknown History release psyllium husk 3.4 gram/5.4 gram 1 tsp PO DAILY 04/29/24 04/29/24 Unknown History oral powder (Metamucil) Physical Exam 2 Vital Signs and Narrative: Vital Signs: Last Vital Signs Temp 97.8 F 04/29/24 15:09 Pulse 80 04/29/24 15:09 Resp 11 L 04/29/24 15:09 BP 141/75 H 04/29/24 12:00 Pulse Ox 97 04/29/24 15:09 O2 Del Method Room Air 04/29/24 15:09 BMI result Body Mass Index 25.8 Const: Other: General: Appears stated age, frail in appearance, in no acute distress, answers questions accurately and appropriately with his grandson interpreted in Cameroonian per patient request. Skin: Warm and well perfused, no obvious lesions, bruises, open wounds or sores Cardiology: Regular rate and rhythm, no murmurs, rubs, gallops or clicks, no JVD or carotid bruits appreciated Respiratory: Diminished lung sounds and crackles noted to the left upper and lower lobe, no rales or rhonchi, no increased accessory muscle use noted Abdomen: Soft, rounded, nontender, bowel sounds active in all 4 quadrants, no abdominal guarding or [place] sign Extremity: No pitting edema noted, no redness, tenderness or swelling noted to bilateral lower extremities. Neuro: Alert and oriented x3, no obvious focal deficits Psych: Calm, appropriate, follows commands, no agitation restlessness noted Results Labs 04/29/24 07:02 04/29/24 17:02 Labs: Laboratory Results - last 24 hr 04/29/24 07:02 MCV 78.5 L MCH 27.4 MCHC 34.9 RDW 15.4 Plt Count 386 MPV 8.2 L Immature Gran % (Auto) 1.1 H Neut % (Auto) 77.5 H Lymph % (Auto) 8.8 L Forrest % (Auto) 9.3 Eos % (Auto) 2.9 Baso % (Auto) 0.4 Lymph # (Auto) 0.8 L Forrest # (Auto) 0.9 Eos # (Auto) 0.3 Baso # (Auto) 0.0 Abs Immat Gran (auto) 0.10 H Absolute Neuts (auto) 7.2 Absolute Nucleated RBC 0.000 Nucleated RBC % (auto) 0.0 PT 13.6 H INR 1.2 H Anion Gap 16 Estim Creat Clear Calc 74.6 Estimated GFR > 60 Random Glucose 108 Calcium 9.0 D Magnesium 1.3 L* Total Bilirubin 0.6 Direct Bilirubin 0.3 AST 12 ALT 12 Alkaline Phosphatase 93 Troponin I High Sens 3.9 B-Natriuretic Peptide 39 Total Protein 6.5 Albumin 3.6 Influenza Type A (PCR) NEGATIVE Influenza Type B (PCR) NEGATIVE RSV RNA Qual (PCR) NEGATIVE SARS-CoV-2 RNA (RT-PCR) NEGATIVE Imaging Radiologist's Impressions: Impressions Chest X-Ray 04/29/24 08:00 IMPRESSION: Large Dense opacification at left lung probably combination of elevation left hemidiaphragm, pleural effusion, infiltrate and/or atelectasis, would recommend correlation with follow-up CT scan to rule out possible underlying mass. Electronically signed by: Nina Rios MD 04/29/2024 08:50 AM EDT RP Chest CT 04/29/24 11:37 IMPRESSION: 1. Very large left pleural effusion causing mass effect and mediastinal shift to the right would recommend thoracentesis. 2. Atelectasis of left lower lobe, partial atelectasis left upper lobe, uncertain etiology, cannot rule out underlying central hilar mass which would be difficult to visualize due to lack of contrast. May consider correlation with FOLLOW-UP CT CHEST WITH CONTRAST AFTER THE THORACENTESIS AND LUNG EXPANSION. 3. There is occlusion of the left bronchus to the left lower lobe, uncertain etiology, cannot rule out underlying pathologic process. 4. Mildly enlarged mediastinal lymph nodes. 5. There is 1.2 cm subcutaneous structure in the right axilla could be a sebaceous cyst versus a skin lesion. 6. There is 7 mm nodule upper segment right lower lobe. Electronically signed by: Nina Rios MD 04/29/2024 01:05 PM EDT RP Abdomen/Pelvis CT 04/29/24 11:46 IMPRESSION: Limited noncontrasted study. 1. Large left pleural effusion. 2. There is perinephric fat stranding around the left kidney and in the left gutter uncertain etiology. Cannot rule out underlying infection, inflammation among others.. No kidney stone or hydronephrosis. Evaluation of the kidneys is limited due to lack of contrast. 3. Right inguinal hernia containing fat and loop of bowel without causing obstruction. Electronically signed by: Nina Rios MD 04/29/2024 01:20 PM EDT Assessment and Plan (1) Large pleural effusion: Status: Acute (2) Hypomagnesemia: Status: Acute (3) Hypertension: Qualifiers: Hypertension type: primary hypertension Qualified Code(s): I10 - Essential (primary) hypertension Status: Acute (4) High cholesterol: Status: Acute (5) Diabetes: Qualifiers: Diabetes mellitus mcc insulin use: without mcc use Diabetes mellitus type: type 2 Status: Acute (6) Exocrine pancreatic insufficiency: Status: Acute (7) Anemia: Qualifiers: Anemia type: unspecified type Qualified Code(s): D64.9 - Anemia, unspecified Status: Acute (8) BPH (benign prostatic hyperplasia): Qualifiers: Lower urinary tract symptom presence: symptoms absent Qualified Code(s): N40.0 - Benign prostatic hyperplasia without lower urinary tract symptoms Status: Acute (9) GERD (gastroesophageal reflux disease): Qualifiers: Esophagitis presence: without esophagitis Qualified Code(s): K21.9 - Gastro-esophageal reflux disease without esophagitis Status: Acute Plan ACUTE MEDICAL ISSUES: Left pleural effusion -Chest x-ray:Large Dense opacification at left lung probably combination of elevation left hemidiaphragm, pleural effusion, infiltrate and/or atelectasis, would recommend correlation with follow-up CT scan to rule out possible underlying mass. -CT chest without:Multidetector volumetric CT imaging of the chest was done. Axial MIP volume rendering provided. Sagittal and coronal reformatted images were obtained. -CT abdomen and pelvis without:1. Large left pleural effusion. 2. There is perinephric fat stranding around the left kidney and in the left gutter uncertain etiology. Cannot rule out underlying infection, inflammation among others.. No kidney stone or hydronephrosis. Evaluation of the kidneys is limited due to lack of contrast. 3. Right inguinal hernia containing fat and loop of bowel without causing obstruction. -ED provider performed a thoracentesis, fluid studies have been added on/ordered -Antibiotics, Analgesics, antiemetics and antipyretics. -Consult placed for Cardiothoracic, recommendations appreciated Hypomagnesemia -Magnesium level 1.3. Replaced. Recheck magnesium level in a.m.. CHRONIC MEDICAL ISSUES Hypertension -Nifedipine, losartan continued with holding parameters. Hypercholesteremia -Atorvastatin has been continued. Ajt-ydtwvmd-wjvelbdca diabetes mellitus -Oral antihyperglycemics held. insulin sliding scale with nutrition a.c./HS Hypoglycemia protocol place. Pancreatic insufficiency -Continue Creon. Anemia - Likely anemia of chronic disease. Hgb & Hct on arrival 11.1/31.8, around baseline. - No signs of bleeding. Continue to trend. Had an anemia panel to have labs. Gastroesophageal reflux disease -Omeprazole continued. BPH -Denies urinary complaints. Terazosin and tamsulosin continue. Patient is a full code, confirmed with patient at time of admission HCP patient lives with his daughter Maya Drew, Secondary to [facility] patient's Emily Drew, Case and plan discussed with Dr. Akbar Quality Stroke Does the patient have a stroke diagnosis?: No VTE Prior VTE?: No VTE Risk Level:: Medical - moderate - high VTE Device Contraindication: N/A - Device Ordered VTE Drug Contraindication: Treatment Not Indicated (May need repeat thoracentesis)
--- NOTE | 2024-04-29 16:35 | PHA.MEDREC ---
Addendum entered by Shilpi Zimmerman RPh 04/29/24 16:44: Reviewed by [facility] Original Note: Pharmacy Consult ? Medication Reconciliation Pharmacy has completed the medication reconciliation. Spoke with grandson at bedside, he was able to call family at home that read off of his mychart medications. Used their list and claims history (gets med[facility] from [facility]) to complete med rec. Patient reports he took his medications yesterday, none today. He did confirm he is not taking baby aspirin.
[2024-04-29 17:15] LABS: Appearance Urine Clear; Color Urine Yellow; Glucose Urine UA >=1000 mg/dL (Negative); Leukocyte Esterase Urine Trace (Negative); Nitrite Urine Negative (Negative); UMIC TRIGGER UACC YES; Urine Blood Negative (Negative); Urine Ketones Trace mg/dL (Negative); Urine Protein Negative (Neg-Trace)
[2024-04-29 17:22] LABS: Glucose, Whole Blood 113 mg/dL (60-115)
[2024-04-29 17:23] LABS: Partial Thromboplastin Time 36.1 SEC (26.0-36.8)
[2024-04-29 17:29] LABS: MN% 92.8 %; PMN% 7.2 %; RBC Pleural Fluid 0.022 X10*6/uL; WBC Pleural Fluid 1.024 X10*3/uL
[2024-04-29 17:52] LABS: Glucose Random 91 mg/dL (60-115); Total Protein 6.7 g/dL (6.5-8.0)
--- NOTE | 2024-04-29 17:57 | MHC.EDTECH ---
2assit to the camode patient had a BM reposition patient in bed and changed linen
[2024-04-29 18:09] LABS: Lactate Dehydrogenase 236 U/L (118-273)
[2024-04-29 18:17] LABS: Bacteria Urine 4+ (None Seen); Hyaline Casts Urine 0-2 /LPF (0-2); RBC Urine 0-2 /HPF (0-2); Squamous Epithelial Cell Urine 0-2 /HPF (0-2); UACC Culture Trigger YES
[2024-04-29 18:36] LABS: Monocytes Pleural Fluid 4 %; Other Cells Plerual Fl 34 %
[2024-04-29 18:37] LABS: BF Shift QC OK YES; Lymphocytes Pleural Fluid 55 %; Neutrophils Pleural Fluid 7 %
[2024-04-29 20:34] LABS: Glucose, Whole Blood 130 mg/dL (60-115)
[2024-04-29] MEDS: Doxazosin Mesylate 2 MG TABLET 4 MG PO (20:46)
[2024-04-29] MEDS: Lipase/Prot/Amylase 24/76/120K 1 CAP CAPSULE.DR 2 CAP PO (20:46)
[2024-04-29] MEDS: Losartan Potassium 25 MG TABLET PO (20:46)
[2024-04-29] MEDS: NIFEdipine ER 30 MG TAB.ER.24 PO (20:47)
[2024-04-30] VITALS (8 sets, daily range): BP systolic 108–148; BP diastolic 60–76; PULSE 82–100; RESP 16–20; TEMP 36.1–36.8; O2SAT 84–100
[2024-04-30] MEDS: 0.9 % Sodium Chloride Flush 3 ML SYRINGE IVFLUSH ×3 (00:31→19:45)
[2024-04-30] MEDS: Omeprazole 20 MG CAPSULE.DR PO ×2 (05:52→17:24)
[2024-04-30 06:40] LABS: Anion Gap 15 (12-20); Blood Urea Nitrogen 10 mg/dL (9-16); Calcium 8.5 mg/dL (8.4-10.2); Carbon Dioxide 20 mmol/L (22-29); Chloride 98 mmol/L (96-108); Creatinine Clr Calc Pharmacy 82.3; Estimated Glomerular Filt Rate > 60; Glucose Random 113 mg/dL (60-115); Iron 17 mcg/dL (45-160); Magnesium 1.8 mg/dL (1.6-2.6); Percent Iron Saturation 7 % (15-50); Potassium 3.6 mmol/L (3.3-5.1); Sodium 129 mmol/L (135-145); Total Iron Binding Capacity 230 mcg/dL (228-428); Unsaturated Iron Binding 213 ug/dL
[2024-04-30 06:54] LABS: Ferritin 186 ng/mL (20-250)
[2024-04-30 07:08] LABS: Folate 9.9 ng/mL (> or = 4.0); Vitamin B12 323 pg/mL (200-900)
[2024-04-30 07:20] LABS: Hemoglobin 11.5 g/dl (14.0-18.0); Mean Corpuscular HGB Conc 33.8 g/dl (31.0-36.0); Mean Corpuscular Hemoglobin 26.9 pg (27.0-33.0); Mean Corpuscular Volume 79.6 fL (80.0-98.0); Platelet Count 416 X10*3/uL (160-400); Red Blood Count 4.27 X10*6/uL (4.60-5.80); Red Cell Distribution Width 15.8 % (11.0-16.0); White Blood Count 10.6 X10*3/uL (4.8-10.8)
[2024-04-30 07:35] LABS: Glucose, Whole Blood 112 mg/dL (60-115)
--- NOTE | 2024-04-30 07:44 | P.PNIM_ITS ---
Subjective Subjective Date of Service: 04/30/24 Interval History: f/u on dyspnea d/t pleural effuson s/p thoracentesis in ED yesterday, and is feeling better presently without sob, fluid was bloody per pt Physical Exam 2 Vital Signs: Vital Signs: Last Vital Signs Temp 97.0 F 04/30/24 04:00 Pulse 92 04/30/24 04:00 Resp 16 04/30/24 04:00 BP 125/62 04/30/24 04:00 Pulse Ox 96 04/30/24 04:00 O2 Del Method Room Air 04/30/24 04:00 BMI result Body Mass Index 25.8 General: AO X 3, no acute distress Resp: diminished on left side CVS: S1,S2,RRR GI: +BS, NT, no distention Skin: No rash Neuro: motor grossly intact Psych: appropriate affect Objective Data Active Medications Acetaminophen (Acetaminophen 325 Mg Tablet) 650 mg PO Q6H PRN PRN Reason: Pain, Mild (Pain Scale 1-3), fever or headache Lipase/Protease/Amylase (Lipase/Prot/Amylase 24/76/120k 1 Cap Capsule.Dr) 2 cap PO TID COUNT INCLUDES THE [facility] Last Admin: 04/29/24 20:46 Dose: 2 cap Documented By: CYNTHIA Atorvastatin Calcium (Atorvastatin Calcium 10 Mg Tablet) 10 mg PO DAILY COUNT INCLUDES THE [facility] Ceftriaxone Sodium (Ceftriaxone Sodium 1 Gm Vial) 1 gm IVPUSH Q24H COUNT INCLUDES THE [facility] Doxazosin Mesylate (Doxazosin Mesylate 2 Mg Tablet) 4 mg PO BEDTIME COUNT INCLUDES THE [facility] Last Admin: 04/29/24 20:46 Dose: 4 mg Documented By: CYNTHIA Empagliflozin (Empagliflozin 10 Mg Tablet) 10 mg PO DAILY COUNT INCLUDES THE [facility] Glucose (Glucose Gel 15 Gm Gel..Gram.) 15 gm PO Q15M PRN; Protocol PRN Reason: per Hypoglycemia Standing Ord. Dextrose (D10) 250 mls @ 750 mls/hr IV Q15M PRN; Protocol PRN Reason: per Hypoglycemia Standing Ord. Azithromycin 500 mg/ Sodium (Chloride) 250 mls @ 125 mls/hr IV Q24H COUNT INCLUDES THE [facility] Insulin Human Lispro (Insulin Lispro 100 Unit/Ml 3 Ml Vial) 0 unit SUBCUT QIDACHS COUNT INCLUDES THE [facility]; Protocol Last Admin: 04/29/24 20:35 Dose: Not Given Documented By: CYNTHIA Non-Admin Reason: No Insulin Coverage Losartan Potassium (Losartan Potassium 25 Mg Tablet) 25 mg PO BEDTIME COUNT INCLUDES THE [facility]; Protocol Last Admin: 04/29/24 20:46 Dose: 25 mg Documented By: CYNTHIA Nifedipine (Nifedipine Er 30 Mg Tab.Er.24) 30 mg PO BEDTIME COUNT INCLUDES THE [facility] Last Admin: 04/29/24 20:47 Dose: 30 mg Documented By: CYNTHIA Omeprazole (Omeprazole 20 Mg Capsule.Dr) 20 mg PO BID@0630,1630 COUNT INCLUDES THE [facility] Last Admin: 04/30/24 05:52 Dose: 20 mg Documented By: FRANCY Ondansetron HCl (Ondansetron Hcl 4 Mg/2 Ml Vial) 4 mg IVPUSH Q8H PRN PRN Reason: Nausea and Vomiting Senna (Sennosides 8.6 Mg Tablet) 17.2 mg PO BEDTIME PRN PRN Reason: constipation Sodium Chloride (0.9 % Sodium Chloride Flush 3 Ml Syringe) 3 ml IVFLUSH QSHIFT COUNT INCLUDES THE [facility] Last Admin: 04/30/24 00:31 Dose: 3 ml Documented By: FRANCY Labs 04/30/24 05:43 04/30/24 05:43 Labs: Laboratory Results - last 24 hr 04/29/24 04/29/24 04/29/24 07:02 17:02 17:17 MCV MCH MCHC RDW Plt Count MPV Absolute Nucleated RBC Nucleated RBC % (auto) PT 13.6 H INR 1.2 H APTT 36.1 Anion Gap Estim Creat Clear Calc Estimated GFR POC Glucose 113 Random Glucose 91 Calcium Magnesium 1.3 L* Iron TIBC % Saturation Unsat Iron Binding Ferritin Lactate Dehydrogenase 236 Total Protein 6.7 Vitamin B12 Folate Urine Color Yellow Urine Appearance Clear Urine pH 5.0 Ur Specific [place] 1.020 Urine Protein Negative Urine Glucose (UA) >=1000 H Urine Ketones Trace Urine Blood Negative Urine Nitrite Negative Ur Leukocyte Esterase Trace H Urine RBC 0-2 Urine WBC 11-20 H Ur Squamous Epith Cells 0-2 Urine Bacteria 4+ Hyaline Casts 0-2 Pleural WBC 1.024 Pleural RBC 0.022 Pleural Neutrophils 7 Pleural Lymphocytes 55 Pleural Monocytes 4 Pleural Other Cells 34 Influenza Type A (PCR) NEGATIVE Influenza Type B (PCR) NEGATIVE RSV RNA Qual (PCR) NEGATIVE SARS-CoV-2 RNA (RT-PCR) NEGATIVE 04/29/24 04/30/24 04/30/24 20:28 05:43 07:27 MCV 79.6 L MCH 26.9 L MCHC 33.8 RDW 15.8 Plt Count 416 H MPV 9.0 L Absolute Nucleated RBC 0.000 Nucleated RBC % (auto) 0.0 PT INR APTT Anion Gap 15 Estim Creat Clear Calc 82.3 Estimated GFR > 60 POC Glucose 130 H 112 Random Glucose 113 Calcium 8.5 Magnesium 1.8 Iron 17 L TIBC 230 % Saturation 7 L Unsat Iron Binding 213 Ferritin 186 Lactate Dehydrogenase Total Protein Vitamin B12 323 Folate 9.9 Urine Color Urine Appearance Urine pH Ur Specific [place] Urine Protein Urine Glucose (UA) Urine Ketones Urine Blood Urine Nitrite Ur Leukocyte Esterase Urine RBC Urine WBC Ur Squamous Epith Cells Urine Bacteria Hyaline Casts Pleural WBC Pleural RBC Pleural Neutrophils Pleural Lymphocytes Pleural Monocytes Pleural Other Cells Influenza Type A (PCR) Influenza Type B (PCR) RSV RNA Qual (PCR) SARS-CoV-2 RNA (RT-PCR) Assessment and Plan (1) Lung mass: Status: Acute (2) Pleural effusion: Status: Acute (3) Pleural hemorrhage: Status: Acute Plan 78/m HTN, HLD, DM, BPH here with SOB and found to have a large Left sided pleural effusion s/p thoracenesis in the ED Left pleural effusion s/p thoracentesis in the ED, fluid analysis pending, but doesn't appear to be parapneumonic, possible underlying mass -Empric Ceftriaxone and Azithro -Pulmonology and thoracic surgery consult -May need chest tube -follow up on fluid analysis Hyponatremia--chronic and stable. 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 [id number] diabetes mellitus -on Januvia, Farxiga and Metformin. Hold metformin -SSI, diabetic diet, POC chec Pancreatic insufficiency -Continue Creon. Anemia of chronic disease--stable GERD -Omeprazole BPH -Denies urinary complaints. Terazosin and tamsulosin continue. Full code DVT prophylaxis: device,d/t blood tap Quality Stroke Does the patient have a stroke diagnosis?: No VTE Prior VTE?: No VTE Risk Level:: Medical - moderate - high VTE Device Contraindication: N/A - Device Ordered VTE Drug Contraindication: Treatment Not Indicated (May need repeat thoracentesis)
[2024-04-30] MEDS: Empagliflozin 10 MG TABLET PO (10:31)
[2024-04-30] MEDS: Atorvastatin Calcium 10 MG TABLET PO (10:31)
[2024-04-30] MEDS: Lipase/Prot/Amylase 24/76/120K 1 CAP CAPSULE.DR 2 CAP PO ×2 (10:31→17:23)
[2024-04-30] MEDS: SITagliptin Phosphate 25 MG TABLET PO (10:31)
[2024-04-30] MEDS: cefTRIAXone sodium 1 GM VIAL IVPUSH (10:32)
[2024-04-30] MEDS: Azithromycin 500 MG in 0.9 % Sodium Chloride 250 ML 125 MG IV (10:41)
--- NOTE | 2024-04-30 10:47 | MHC.CM.PN ---
IMM 04/30. This CM met with pt with the assistance of a manufacturing engineering manager. Pt reports living with his , and uses a cane and a wheelchair. Pt has COMPUTER SOFTWARE ENGINEER services provided by his daughter. Pts daughter will transport him home at discharge. Pt states his HCP is his daughter, copy requested. PCP: [facility]
--- NOTE | 2024-04-30 11:03 | P.CONPL_ITS ---
History of Present Illness History of Present Illness Consult date: 04/30/24 Chief complaint: large left pleural effusion Narrative: This is an inpatient pulmonary consultation. The patient is a 78-year-old gentleman with a known history of diabetes who apparently was in his usual state health until the last few days when he started developing shortness of breath and chest discomfort on his left side. He is brought to the [facility] ER where he had an x-ray demonstrating a large left-sided pleural effusion. In the ER he did have a diagnostic thoracentesis done removing about 500 mL of bloody pleural drainage. The fluid was sent for further analysis. After the 500 mL the patient had some relief and the procedure was terminated. No apparent complications. Post procedure x-ray that still demonstrates significant amount of fluid in the left side. And now appears to be hemorrhagic pleural effusion. Denies any trauma to that area. His chest pain has resolved. His shortness of breath also improved after the diagnostic procedure. I did personally review a CT scan of the chest that he had the large extensive pleural effusion in addition to a significant atelectasis. Sound clear if he does have a left lower lobe mass. Can not be visualized well due to the significant compressive component of the pleural effusion. On the x-ray the patient also has a shift of the mediastinum to the contralateral side due to the pressure buildup. Review of Systems 2 Constitutional: Constitutional: Denies fever(s) Eyes: Eyes: Reports no additional eye complaints ENT: Reports system reviewed and no additional complaints, except as documented Cardiovascular: Cardiovascular: Reports chest pain, Reports dyspnea and Reports dyspnea on exertion Respiratory: Respiratory: Reports dyspnea, Reports dyspnea on exertion and Denies wheezing Gastrointestinal: Gastrointestinal: Reports no additional gastrointestinal complaints Musculoskeletal: Musculoskeletal: Reports myalgias Neurologic: Reports system reviewed and no additional complaints, except as documented Hematologic/Lymphatic: Hematologic/Lymphatic: Denies easy bleeding, Denies easy bruising and Denies lymphadenopathy Allergic/Immunologic: Allergic/Immunologic: Denies wheezing PMFSH Past Medical History Medical History (Updated 04/30/24 @ 11:07 by John Diallo MD) Pleural hemorrhage Diverticulosis Hyponatremia Acute hyponatremia Colon cancer screening Erectile dysfunction Gastritis COVID-19 virus infection Hydrocele Cataract Hypercholesteremia Diabetes BPH (benign prostatic hyperplasia) Hypertension Family History Family History Father Diabetes Mother Diabetes Uterus cancer Mother Cancer Surgical History Surgical History Hx of colonoscopy History of bilateral knee replacement History of prostate surgery Social History Social History Household Members: Spouse Housing: Apartment Housing Other:: housing apartment Are you a primary hospice care consultant to a significant other at home: No Do you presently have visiting nurse or other home services: Yes Alcohol intake: never Patient Tobacco Use Status: Never used Tobacco service: No Current occupational status: retired Current occupation: right handed Meds Allergies Allergy/AdvReac Type Severity Reaction Status Date / Time No Known Allergies Allergy Verified 04/29/24 06:43 [No Known Allergies*] Active Medications: Current Medications Acetaminophen (Acetaminophen 325 Mg Tablet) 650 mg PO Q6H PRN PRN Reason: Pain, Mild (Pain Scale 1-3), fever or headache Lipase/Protease/Amylase (Lipase/Prot/Amylase 24/76/120k 1 Cap Capsule.Dr) 2 cap PO TID [facility] Last Admin: 04/30/24 10:31 Dose: 2 cap Atorvastatin Calcium (Atorvastatin Calcium 10 Mg Tablet) 10 mg PO DAILY [facility] Last Admin: 04/30/24 10:31 Dose: 10 mg Ceftriaxone Sodium (Ceftriaxone Sodium 1 Gm Vial) 1 gm IVPUSH Q24H [facility] Last Admin: 04/30/24 10:32 Dose: 1 gm Doxazosin Mesylate (Doxazosin Mesylate 2 Mg Tablet) 4 mg PO BEDTIME [facility] Last Admin: 04/29/24 20:46 Dose: 4 mg Empagliflozin (Empagliflozin 10 Mg Tablet) 10 mg PO DAILY [facility] Last Admin: 04/30/24 10:31 Dose: 10 mg Glucose (Glucose Gel 15 Gm Gel..Gram.) 15 gm PO Q15M PRN; Protocol PRN Reason: per Hypoglycemia Standing Ord. Dextrose (D10) 250 mls @ 750 mls/hr IV Q15M PRN; Protocol PRN Reason: per Hypoglycemia Standing Ord. Azithromycin 500 mg/ Sodium (Chloride) 250 mls @ 125 mls/hr IV Q24H [facility] Last Admin: 04/30/24 10:41 Dose: 125 mls/hr Insulin Human Lispro (Insulin Lispro 100 Unit/Ml 3 Ml Vial) 0 unit SUBCUT QIDACHS [facility]; Protocol Last Admin: 04/30/24 08:06 Dose: Not Given Nifedipine (Nifedipine Er 30 Mg Tab.Er.24) 30 mg PO BEDTIME [facility] Last Admin: 04/29/24 20:47 Dose: 30 mg Omeprazole (Omeprazole 20 Mg Capsule.Dr) 20 mg PO BID@0630,1630 [facility] Last Admin: 04/30/24 05:52 Dose: 20 mg Ondansetron HCl (Ondansetron Hcl 4 Mg/2 Ml Vial) 4 mg IVPUSH Q8H PRN PRN Reason: Nausea and Vomiting Senna (Sennosides 8.6 Mg Tablet) 17.2 mg PO BEDTIME PRN PRN Reason: constipation Sitagliptin Phosphate (Sitagliptin Phosphate 25 Mg Tablet) 25 mg PO DAILY [facility] Last Admin: 04/30/24 10:31 Dose: 25 mg Sodium Chloride (0.9 % Sodium Chloride Flush 3 Ml Syringe) 3 ml IVFLUSH QSHIFT [facility] Last Admin: 04/30/24 00:31 Dose: 3 ml Home Medications ?Medication ?Instructions ?Recorded ?Confirmed ?Last Taken ?Type atorvastatin 10 mg tablet 10 mg PO DAILY 05/08/20 04/29/24 07/01/20 History blood sugar diagnostic #10 ea 10/04/20 07/27/23 Unknown History cholecalciferol (vitamin D3) 50 50 mcg PO DAILY 10/04/20 04/29/24 Unknown History mcg (2,000 unit) capsule lancets 33 gauge #100 ea 10/04/20 07/27/23 Unknown History metformin 1,000 mg tablet 1,000 mg PO BID 10/04/20 04/29/24 Unknown History multivitamin 1 tab PO DAILY 10/04/20 04/29/24 Unknown History dapagliflozin propanediol 10 mg 10 mg PO DAILY 10/09/21 04/29/24 Unknown History tablet (Farxiga) sitagliptin phosphate 25 mg tablet 25 mg PO DAILY 05/04/23 04/29/24 Unknown History (Rimma) losartan 25 mg tablet 25 mg PO BEDTIME 01/05/24 04/29/24 Unknown History nifedipine 30 mg tablet,extended 30 mg PO BEDTIME 01/05/24 04/29/24 Unknown History release acetaminophen 325 mg tablet 650 mg PO Q6H PRN Pain 04/29/24 04/29/24 Unknown History omeprazole 20 mg capsule,delayed 20 mg PO BID@0630,1630 04/29/24 04/29/24 Unknown History release psyllium husk 3.4 gram/5.4 gram 1 tsp PO DAILY 04/29/24 04/29/24 Unknown History oral powder (Metamucil) Physical Exam 2 Vital Signs: Vital Signs: Last Vital Signs Temp 97.0 F 04/30/24 08:00 Pulse 100 04/30/24 08:00 Resp 17 04/30/24 08:00 BP 108/69 04/30/24 08:00 Pulse Ox 98 04/30/24 08:00 O2 Del Method Room Air 04/30/24 08:00 BMI result Body Mass Index 25.8 Const: General: comfortable; No acute distress Neck: Neck: Yes no lymphadenopathy and Yes supple Chest: Chest palpation & inspection: normal inspection of the chest Resp: Effort & Inspection: normal respiratory effort Auscultation: breath sounds absent on th left Cardio: Heart sounds: S1 normal heart sound present and S2 normal heart sound present GI: Palpation (GI): Soft to palpation Extrem: General: Yes no clubbing, cyanosis or edema Results Laboratory Findings 04/30/24 05:43 04/30/24 05:43 ABG, PT/INR, D-dimer: PT/INR, D-dimer PT 13.6 SEC (10.9-12.4) H 04/29/24 07:02 INR 1.2 (0.9-1.1) H 04/29/24 07:02 Abnormal lab findings: Abnormal Labs 04/29/24 04/29/24 04/29/24 07:02 17:02 20:28 RBC 4.05 L Hgb 11.1 L Hct 31.8 L MCV 78.5 L MCH Plt Count MPV 8.2 L Immature Gran % (Auto) 1.1 H Neut % (Auto) 77.5 H Lymph % (Auto) 8.8 L Lymph # (Auto) 0.8 L Abs Immat Gran (auto) 0.10 H PT 13.6 H INR 1.2 H Sodium 130 L Carbon Dioxide 20 L POC Glucose 130 H Magnesium 1.3 L* Iron % Saturation Urine Glucose (UA) >=1000 H Ur Leukocyte Esterase Trace H Urine WBC 11-20 H 04/30/24 05:43 RBC 4.27 L Hgb 11.5 L Hct 34.0 L MCV 79.6 L MCH 26.9 L Plt Count 416 H MPV 9.0 L Immature Gran % (Auto) Neut % (Auto) Lymph % (Auto) Lymph # (Auto) Abs Immat Gran (auto) PT INR Sodium 129 L Carbon Dioxide 20 L POC Glucose Magnesium Iron 17 L % Saturation 7 L Urine Glucose (UA) Ur Leukocyte Esterase Urine WBC Microbiology: Microbiology 04/29/24 17:06 Pleural Fluid Gram Stain - Final 04/29/24 17:06 Pleural Fluid Routine Culture - Preliminary No growth to date. 04/29/24 17:06 Pleural Fluid Anaerobic Culture - Preliminary No growth to date. Assessment and Plan (1) Pleural hemorrhage: Status: Acute (2) Pleural effusion: Status: Acute (3) Lung mass: Status: Acute Plan The patient had a diagnostic thoracentesis where was described to be hemorrhagic fluid. It is also not available. The fluid is not back yet. Based on the fact that his hemorrhagic indeed concerning for possibility of conditions. The patient denies any trauma. The fluid needs to be drained completely. Once the fluid is drained we can better assess the lung came up cavity to see if there is any necrotic masses that could be resulting in the hemorrhagic component. Recommendations: Request thoracic surgery for small bore chest tube placement. If indeed this is a malignant pleural effusion the patient may need a PleurX catheter. I which point this could be provided specially the fluid is returning quickly. However, I am concerned that these type of fluid can quickly reaccumulate and therefore becomes symptomatic again fairly drasticly. Once the patient has significant drainage the fluid needs a repeat CT scan of the chest to address the question of the lung mass. Continue antibiotic coverage will be reasonable at this time Procedures Date of Service Date of Service: 04/30/24
[2024-04-30 11:42] LABS: Glucose, Whole Blood 159 mg/dL (60-115)
[2024-04-30] MEDS: Insulin Lispro 100 UNIT/ML 3 ML VIAL SUBCUT ×2 (11:55→17:24)
[2024-04-30 17:06] LABS: Glucose, Whole Blood 191 mg/dL (60-115)
[2024-04-30] MEDS: Albuterol/Iprat 2.5/0.5MG 3 ML AMPUL.NEB INHALE (18:03)
[2024-04-30 19:55] LABS: Glucose, Whole Blood 92 mg/dL (60-115)
[2024-04-30 23:25] LABS: Glucose, Whole Blood 102 mg/dL (60-115)
[2024-05-01] VITALS (8 sets, daily range): BP systolic 93–145; BP diastolic 58–84; PULSE 80–102; RESP 17–20; TEMP 36.1–37; O2SAT 93–100
[2024-05-01 05:52] LABS: Glucose, Whole Blood 97 mg/dL (60-115)
[2024-05-01] MEDS: 0.9 % Sodium Chloride Flush 3 ML SYRINGE IVFLUSH ×2 (08:46→20:04)
[2024-05-01] MEDS: Azithromycin 500 MG in 0.9 % Sodium Chloride 250 ML 125 MG IV (08:46)
[2024-05-01] MEDS: cefTRIAXone sodium 1 GM VIAL IVPUSH (10:57)
[2024-05-01 11:17] LABS: Glucose, Whole Blood 76 mg/dL (60-115)
--- NOTE | 2024-05-01 12:13 | P.PNIM_ITS ---
Subjective Subjective Date of Service: 05/01/24 Interval History: f/u on dyspnea d/t pleural effuson s/p thoracentesis in ED yesterday, and is feeling better presently without sob. Had an incident of chocking on water yesterday Physical Exam 2 Vital Signs: Vital Signs: Last Vital Signs Temp 97.2 F 05/01/24 11:35 Pulse 87 05/01/24 11:35 Resp 18 05/01/24 11:35 BP 137/75 05/01/24 11:35 Pulse Ox 98 05/01/24 11:35 O2 Del Method Room Air 05/01/24 11:35 BMI result Body Mass Index 25.8 General: AO X 3, no acute distress Resp: diminished on left side CVS: S1,S2,RRR GI: +BS, NT, no distention Skin: No rash Neuro: motor grossly intact Psych: appropriate affect Objective Data Active Medications Acetaminophen (Acetaminophen 325 Mg Tablet) 650 mg PO Q6H PRN PRN Reason: Pain, Mild (Pain Scale 1-3), fever or headache Albuterol/Ipratropium (Albuterol/Iprat 2.5/0.5mg 3 Ml Ampul.Neb) 3 ml INHALE RQ4H WHILE AWAKE PRN PRN Reason: sob Last Admin: 04/30/24 18:03 Dose: 3 ml Documented By: JERRY Lipase/Protease/Amylase (Lipase/Prot/Amylase 24/76/120k 1 Cap Capsule.Dr) 2 cap PO TID [facility] Last Admin: 05/01/24 11:50 Dose: Not Given Documented By: LEAH Non-Admin Reason: NPO Atorvastatin Calcium (Atorvastatin Calcium 10 Mg Tablet) 10 mg PO DAILY [facility] Last Admin: 05/01/24 10:45 Dose: Not Given Documented By: LEAH Non-Admin Reason: NPO Ceftriaxone Sodium (Ceftriaxone Sodium 1 Gm Vial) 1 gm IVPUSH Q24H [facility] Last Admin: 05/01/24 10:57 Dose: 1 gm Documented By: LEAH Doxazosin Mesylate (Doxazosin Mesylate 2 Mg Tablet) 4 mg PO BEDTIME [facility] Last Admin: 04/30/24 19:55 Dose: Not Given Documented By: FRANCY Non-Admin Reason: NPO Empagliflozin (Empagliflozin 10 Mg Tablet) 10 mg PO DAILY [facility] Last Admin: 05/01/24 11:49 Dose: Not Given Documented By: LEAH Non-Admin Reason: NPO Glucose (Glucose Gel 15 Gm Gel..Gram.) 15 gm PO Q15M PRN; Protocol PRN Reason: per Hypoglycemia Standing Ord. Glucose (Glucose Gel 15 Gm Gel..Gram.) 15 gm PO Q15M PRN; Protocol PRN Reason: per Hypoglycemia Standing Ord. Dextrose (D10) 250 mls @ 750 mls/hr IV Q15M PRN; Protocol PRN Reason: per Hypoglycemia Standing Ord. Azithromycin 500 mg/ Sodium (Chloride) 250 mls @ 125 mls/hr IV Q24H [facility] Last Infusion: 05/01/24 10:59 Dose: Infused Documented By: LEAH Dextrose (D10) 250 mls @ 750 mls/hr IV Q15M PRN; Protocol PRN Reason: per Hypoglycemia Standing Ord. Insulin Human Lispro (Insulin Lispro 100 Unit/Ml 3 Ml Vial) 0 unit SUBCUT Q6H [facility]; Protocol Last Admin: 05/01/24 05:55 Dose: Not Given Documented By: FRANCY Non-Admin Reason: NPO/Poc out of range 97 Nifedipine (Nifedipine Er 30 Mg Tab.Er.24) 30 mg PO BEDTIME [facility] Last Admin: 04/30/24 19:56 Dose: Not Given Documented By: FRANCY Non-Admin Reason: NPO Omeprazole (Omeprazole 20 Mg Capsule.Dr) 20 mg PO BID@0630,1630 [facility] Last Admin: 05/01/24 05:56 Dose: Not Given Documented By: FRANCY Non-Admin Reason: NPO Ondansetron HCl (Ondansetron Hcl 4 Mg/2 Ml Vial) 4 mg IVPUSH Q8H PRN PRN Reason: Nausea and Vomiting Senna (Sennosides 8.6 Mg Tablet) 17.2 mg PO BEDTIME PRN PRN Reason: constipation Sitagliptin Phosphate (Sitagliptin Phosphate 25 Mg Tablet) 25 mg PO DAILY [facility] Last Admin: 05/01/24 11:50 Dose: Not Given Documented By: LEAH Non-Admin Reason: NPO Sodium Chloride (0.9 % Sodium Chloride Flush 3 Ml Syringe) 3 ml IVFLUSH QSHIFT [facility] Last Admin: 05/01/24 08:46 Dose: 3 ml Documented By: FOSTEKR Labs 04/30/24 05:43 04/30/24 05:43 Labs: Laboratory Results - last 24 hr 04/30/24 04/30/24 04/30/24 16:58 19:43 23:21 POC Glucose 191 H 92 102 05/01/24 05/01/24 05:49 11:11 POC Glucose 97 76 Microbiology Microbiology Results: Microbiology 04/29/24 09:48 Blood Culture - Preliminary Blood - Venous No growth after 48 hours. 04/29/24 09:48 Blood Culture - Preliminary Blood - Venous No growth after 48 hours. 04/29/24 17:06 Gram Stain - Final Pleural Fluid Routine Culture - Preliminary No growth to date. Anaerobic Culture - Preliminary No growth to date. 04/29/24 17:02 Urine Culture - Preliminary Urine clean catch - Clean Catch Midstream No growth to date. Assessment and Plan (1) Lung mass: Status: Acute (2) Pleural effusion: Status: Acute (3) Pleural hemorrhage: Status: Acute Plan 78/m HTN, HLD, DM, BPH here with SOB and found to have a large Left sided pleural effusion s/p thoracenesis in the ED Left pleural effusion s/p thoracentesis in the ED, fluid analysis pending, but doesn't appear to be parapneumonic, possible underlying mass -Empric Ceftriaxone and Azithro -Pulmonology and thoracic surgery consult -thoracic surgery will put in chest tube -follow up on fluid analysis HypOnatremia--chronic and stable. 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 Ouc-tqzxkiy-nuixymjcn diabetes mellitus -on Januvia, Farxiga and Metformin. Hold metformin -SSI, diabetic diet, POC chec Pancreatic insufficiency -Continue Creon. Anemia of chronic disease--stable GERD -Omeprazole BPH -Denies urinary complaints. Terazosin and tamsulosin continue. Full code DVT prophylaxis: device,d/t blood tap Quality Stroke Does the patient have a stroke diagnosis?: No VTE Prior VTE?: No VTE Risk Level:: Medical - moderate - high VTE Device Contraindication: N/A - Device Ordered VTE Drug Contraindication: Treatment Not Indicated (May need repeat thoracentesis)
--- NOTE | 2024-05-01 12:21 | MHC.CLN ---
RE: CONSULT PT REPORTS 40# WT LOSS X 4 MONTHS PREVIOUS WT HX REVEALS: CURRENT WT 140.6# (04/29/24) PREVIOUS WT 152.2# (12/01/23) PT WITH 8% NONSIGNIFICANT WT LOSS X 5 MONTHS CURRENTLY NPO FOLLOWING FOR DIET ADVANCEMENT RD TO FOLLOW WEEKLY
--- NOTE | 2024-05-01 13:36 | MHC.SL.SWA ---
Speech Pathologist Impression: Risk of Aspiration, Oropharyngeal Dysphagia Risk of Aspiration Due to: Medically Fragile Dysphasia Diet Status: Start on NDD2/NTL Liquid Consistency and Strategies for Safe Swallow: Liquid Intake Recommendation: [place] Thick Liquid Intake Strategies: Small Sips No Straws Solid Food Consistency: Dietary Recommendations: Grnd/Mech Altered (NDD2) Additional Modifications to Solid Foods: Recommend start on GROUND/MECH ALTERED (NDD2) solids and NECTAR THICK liquids, pills CRUSHED in PUREE. Patient is able to feed himself without difficulty. COSMETOLOGY EDUCATOR discussed w/ patient and family strategies recommended for safety: take small bites/sips, one bite/sip at a time, slow pacing between bites/sips, remain upright while eating/drinking and for at least 30 minutes afterwards, avoid the use of straws. 1:1 supervision and close monitoring. Discontinue feeding if patient exhibits any overt s/s of aspiration. Oral Medication Intake: Crushed with Puree Please contact the pharmacy regarding appropriate crushable or liquid drug formulations that are available whenever modified delivery is recommended. Compensatory Strategies and Precautions to be Taken for Safe Swallow: Sitting Upright (90 deg) No Straw Small Bites and Sips Alternate Liquids/Solids Rate of Ingestion Change Avoid Specific Foods Supervision While Eating and Drinking for Safe Swallow: Total Supervision (1:1) Foods to Avoid: Mixed consistencies Swallowing Recommended Treatments: Compens. Strategy Educat. Recommendation for Speech: Inpatient Speech Therapy Comment: Frequency/Duration: PRN M-F Date Range for Service Req: Timeline to reassess: Supervisor Cellars Clinican/Clinical Fellow: No Supervisory Statement: I have reviewed and agree with the student/clinical fellow's documentation: N/A Speech Language Pathologist: Scarlet Moser M.A., CCC-COSMETOLOGY EDUCATOR
[2024-05-01] MEDS: Morphine Sulfate 2 MG/ML CARTRIDGE IVPUSH ×2 (13:47→18:21)
[2024-05-01 16:47] LABS: Glucose, Whole Blood 100 mg/dL (60-115)
--- NOTE | 2024-05-01 17:03 | HO.THORCONS ---
History of Present Illness Consult details Consult date: 05/01/24 Narrative: Pt is a 78 yo male presents with a significant left pleural effusion of unknown etiology.PC worsening SOB. Thoracic consult for Chest tube placement. Chart was reviewed and Pt. evaluated. Significantly large left pleural effusion and question of underlying left lung mass PMFSH Past Medical History Medical History (Updated 04/30/24 @ 11:07 by John Diallo MD) Pleural hemorrhage Diverticulosis Hyponatremia Acute hyponatremia Colon cancer screening Erectile dysfunction Gastritis COVID-19 virus infection Hydrocele Cataract Hypercholesteremia Diabetes BPH (benign prostatic hyperplasia) Hypertension Family History Family History Father Diabetes Mother Diabetes Uterus cancer Mother Cancer Surgical History Surgical History Hx of colonoscopy History of bilateral knee replacement History of prostate surgery Social History Social History Household Members: Spouse Housing: Apartment Housing Other:: housing apartment Are you a primary senior care provider to a significant other at home: No Do you presently have visiting nurse or other home services: Yes Alcohol intake: never Comment: camera placed as pt is impulsive, attempts to get OOB. Hx falls recently Patient Tobacco Use Status: Never used Tobacco service: No Current occupational status: retired Current occupation: right handed Meds Allergies Allergy/AdvReac Type Severity Reaction Status Date / Time No Known Allergies Allergy Verified 04/29/24 06:43 [No Known Allergies*] Active Medications: Current Medications Acetaminophen (Acetaminophen 325 Mg Tablet) 650 mg PO Q6H PRN PRN Reason: Pain, Mild (Pain Scale 1-3), fever or headache Albuterol/Ipratropium (Albuterol/Iprat 2.5/0.5mg 3 Ml Ampul.Neb) 3 ml INHALE RQ4H WHILE AWAKE PRN PRN Reason: sob Last Admin: 04/30/24 18:03 Dose: 3 ml Lipase/Protease/Amylase (Lipase/Prot/Amylase 24/76/120k 1 Cap Capsule.Dr) 2 cap PO TID [facility] Last Admin: 05/01/24 11:50 Dose: Not Given Atorvastatin Calcium (Atorvastatin Calcium 10 Mg Tablet) 10 mg PO DAILY [facility] Last Admin: 05/01/24 10:45 Dose: Not Given Ceftriaxone Sodium (Ceftriaxone Sodium 1 Gm Vial) 1 gm IVPUSH Q24H [facility] Last Admin: 05/01/24 10:57 Dose: 1 gm Doxazosin Mesylate (Doxazosin Mesylate 2 Mg Tablet) 4 mg PO BEDTIME [facility] Last Admin: 04/30/24 19:55 Dose: Not Given Empagliflozin (Empagliflozin 10 Mg Tablet) 10 mg PO DAILY [facility] Last Admin: 05/01/24 11:49 Dose: Not Given Glucose (Glucose Gel 15 Gm Gel..Gram.) 15 gm PO Q15M PRN; Protocol PRN Reason: per Hypoglycemia Standing Ord. Glucose (Glucose Gel 15 Gm Gel..Gram.) 15 gm PO Q15M PRN; Protocol PRN Reason: per Hypoglycemia Standing Ord. Dextrose (D10) 250 mls @ 750 mls/hr IV Q15M PRN; Protocol PRN Reason: per Hypoglycemia Standing Ord. Azithromycin 500 mg/ Sodium (Chloride) 250 mls @ 125 mls/hr IV Q24H [facility] Last Infusion: 05/01/24 10:59 Dose: Infused Dextrose (D10) 250 mls @ 750 mls/hr IV Q15M PRN; Protocol PRN Reason: per Hypoglycemia Standing Ord. Insulin Human Lispro (Insulin Lispro 100 Unit/Ml 3 Ml Vial) 0 unit SUBCUT Q6H [facility]; Protocol Last Admin: 05/01/24 12:51 Dose: Not Given Morphine Sulfate (Morphine Sulfate 2 Mg/Ml Cartridge) 2 mg IVPUSH Q6H PRN; Protocol PRN Reason: Pain, Severe (Pain Scale 7-10) Last Admin: 05/01/24 13:47 Dose: 2 mg Nifedipine (Nifedipine Er 30 Mg Tab.Er.24) 30 mg PO BEDTIME [facility] Last Admin: 04/30/24 19:56 Dose: Not Given Omeprazole (Omeprazole 20 Mg Capsule.Dr) 20 mg PO BID@0630,1630 [facility] Last Admin: 05/01/24 05:56 Dose: Not Given Ondansetron HCl (Ondansetron Hcl 4 Mg/2 Ml Vial) 4 mg IVPUSH Q8H PRN PRN Reason: Nausea and Vomiting Senna (Sennosides 8.6 Mg Tablet) 17.2 mg PO BEDTIME PRN PRN Reason: constipation Sitagliptin Phosphate (Sitagliptin Phosphate 25 Mg Tablet) 25 mg PO DAILY [facility] Last Admin: 05/01/24 11:50 Dose: Not Given Sodium Chloride (0.9 % Sodium Chloride Flush 3 Ml Syringe) 3 ml IVFLUSH QSHIFT [facility] Last Admin: 05/01/24 08:46 Dose: 3 ml Home Medications ?Medication ?Instructions ?Recorded ?Confirmed ?Last Taken ?Type atorvastatin 10 mg tablet 10 mg PO DAILY 05/08/20 04/29/24 07/01/20 History blood sugar diagnostic #10 ea 10/04/20 07/27/23 Unknown History cholecalciferol (vitamin D3) 50 50 mcg PO DAILY 10/04/20 04/29/24 Unknown History mcg (2,000 unit) capsule lancets 33 gauge #100 ea 10/04/20 07/27/23 Unknown History metformin 1,000 mg tablet 1,000 mg PO BID 10/04/20 04/29/24 Unknown History multivitamin 1 tab PO DAILY 10/04/20 04/29/24 Unknown History dapagliflozin propanediol 10 mg 10 mg PO DAILY 10/09/21 04/29/24 Unknown History tablet (Farxiga) sitagliptin phosphate 25 mg tablet 25 mg PO DAILY 05/04/23 04/29/24 Unknown History (Januvia) losartan 25 mg tablet 25 mg PO BEDTIME 01/05/24 04/29/24 Unknown History nifedipine 30 mg tablet,extended 30 mg PO BEDTIME 01/05/24 04/29/24 Unknown History release acetaminophen 325 mg tablet 650 mg PO Q6H PRN Pain 04/29/24 04/29/24 Unknown History omeprazole 20 mg capsule,delayed 20 mg PO BID@0630,1630 04/29/24 04/29/24 Unknown History release psyllium husk 3.4 gram/5.4 gram 1 tsp PO DAILY 04/29/24 04/29/24 Unknown History oral powder (Metamucil) Physical Exam Vital Signs: Vital Signs: Last Vital Signs Temp 97.5 F 05/01/24 15:17 Pulse 83 05/01/24 15:17 Resp 18 05/01/24 15:17 BP 143/84 H 05/01/24 15:17 Pulse Ox 100 05/01/24 15:17 O2 Del Method Room Air 05/01/24 15:17 BMI result Body Mass Index 25.8 Chest: Other: Diminished chest breath sounds left Results Labs 04/30/24 05:43 04/30/24 05:43 Labs: Abnormal lab results 04/30/24 Range/Units 16:58 POC Glucose 191 H (60-115) mg/dL Urine 04/29/24 Range/Units 17:02 Urine Color Yellow Urine Appearance Clear Urine pH 5.0 (5.0-9.0) Ur Specific [place] 1.020 (1.005-1.025) Urine Protein Negative (Neg-Trace) mg/dL Urine Glucose (UA) >=1000 H (Negative) mg/dL All other labs normal. Assessment and Plan (1) Lung mass: Status: Acute (2) Pleural effusion: Status: Acute Plan Risks, benefits, alternatives of left chest tube placement reviewed with the patient and included but not limited to bleeding, infection, recurrence of pleural effusion, numbness, pain, scarring the patient wished to proceed. All questions answered. Please see procedure portion of chart regarding chest tube placement. Postprocedure chest x-ray pending. Pleural fluid sent for cytology. Patient tolerated procedure well. Procedures Date of Service Date of Service: 05/02/24 Chest Tube Chest Tube 1: Chest tube location: Mid-Axillary Chest Size of tube: 24 Chest tube procedure: Yes betadine prep and sterile drapes applied Tube sutured to skin: Yes Sterile dressing applied: Yes Anesthesia: 1% Lidocaine Volume anesthetic (ml): 20 Incision made with: #10 blade Post procedure: sutured to skin and sterile dressing applied Tube Drainage: fluid Amount of initial drainage (ml): 2,300 Post procedure CXR?: Yes Patient tolerated procedure: Yes
[2024-05-01] MEDS: Omeprazole 20 MG CAPSULE.DR PO (18:18)
[2024-05-01] MEDS: Doxazosin Mesylate 2 MG TABLET 4 MG PO (19:51)
[2024-05-01] MEDS: NIFEdipine ER 30 MG TAB.ER.24 PO (19:51)
[2024-05-01] MEDS: Morphine Sulfate 4 MG/ML CARTRIDGE IVPUSH (21:15)
[2024-05-01 23:48] LABS: Glucose, Whole Blood 155 mg/dL (60-115)
[2024-05-02] VITALS (7 sets, daily range): BP systolic 107–124; BP diastolic 61–87; PULSE 84–93; RESP 16–21; TEMP 36.1–36.8; O2SAT 96–100
[2024-05-02 06:19] LABS: Glucose, Whole Blood 115 mg/dL (60-115)
[2024-05-02] MEDS: Omeprazole 20 MG CAPSULE.DR PO (06:19)
--- NOTE | 2024-05-02 07:46 | PM.PNTS ---
Subjective Subjective Date of Service: 05/02/24 Interval history: Aside from incisional discomfort, uneventful evening. 700 cc of serosanguineous fluid retrieved. A.m. chest x-ray pending Physical Exam Vital Signs: Vital Signs: Last Vital Signs Temp 98.0 F 05/02/24 07:25 Pulse 92 05/02/24 07:25 Resp 16 05/02/24 07:25 BP 124/87 05/02/24 07:25 Pulse Ox 98 05/02/24 07:25 O2 Del Method Room Air 05/02/24 07:25 BMI result Body Mass Index 25.8 Chest: Other: Chest tube dressing clean dry and intact. Tube was , under sterile technique advanced and re-sutured, to assure last chest tube hole is in the chest. Patient tolerated procedure well. New dressing placed. Several 100 cc drained from last evening of serosanguineous fluid. No air leak Procedures Date of Service Date of Service: 05/02/24 Progress Note: A&P Assessment and plan (1) Lung mass: Status: Acute (2) Pleural effusion: Status: Acute Plan A.m. chest x-ray, encourage incentive spirometry, out of bed, cytology pending Time Spent With Patient Time: Total time managing care of this patient today ____ minutes. Quality Stroke Does the patient have a stroke diagnosis?: No VTE Prior VTE?: No VTE Risk Level:: Medical - moderate - high VTE Device Contraindication: N/A - Device Ordered VTE Drug Contraindication: Treatment Not Indicated (May need repeat thoracentesis)
[2024-05-02 07:57] LABS: Glucose, Whole Blood 126 mg/dL (60-115)
[2024-05-02] MEDS: Atorvastatin Calcium 10 MG TABLET PO (09:32)
[2024-05-02] MEDS: SITagliptin Phosphate 25 MG TABLET PO (09:32)
[2024-05-02] MEDS: cefTRIAXone sodium 1 GM VIAL IVPUSH (09:32)
[2024-05-02] MEDS: Azithromycin 500 MG in 0.9 % Sodium Chloride 250 ML 125 MG IV (09:32)
[2024-05-02] MEDS: Empagliflozin 10 MG TABLET PO (09:32)
--- NOTE | 2024-05-02 09:32 | HO.PM.IMPN ---
Subjective Subjective Date of Service: 05/02/24 Interval History: f/u on dyspnea d/t left pleural effuson s/p thoracentesis in ED 04/27, chest tube inserted 05/01. Pleural fluid is + for carcinoma Physical Exam Vital Signs: Vital Signs: Last Vital Signs Temp 98.0 F 05/02/24 07:25 Pulse 92 05/02/24 07:25 Resp 16 05/02/24 07:25 BP 124/87 05/02/24 07:25 Pulse Ox 98 05/02/24 07:25 O2 Del Method Room Air 05/02/24 07:25 BMI result Body Mass Index 25.8 General: Alert, no in distress, looks frail Resp: diminished on left side, left chest tube in place, bloody fluid CVS: S1,S2,RRR GI: +BS, NT, no distention Skin: No rash Neuro: motor grossly intact Psych: appropriate affect Objective Data Active Medications Acetaminophen (Acetaminophen 325 Mg Tablet) 650 mg PO Q6H PRN PRN Reason: Pain, Mild (Pain Scale 1-3), fever or headache Albuterol/Ipratropium (Albuterol/Iprat 2.5/0.5mg 3 Ml Ampul.Neb) 3 ml INHALE RQ4H WHILE AWAKE PRN PRN Reason: sob Last Admin: 04/30/24 18:03 Dose: 3 ml Documented By: JERRY Lipase/Protease/Amylase (Lipase/Prot/Amylase 24/76/120k 1 Cap Capsule.Dr) 2 cap PO TID [facility] Last Admin: 05/01/24 19:52 Dose: Not Given Documented By: WALTER Non-Admin Reason: unable to crush Atorvastatin Calcium (Atorvastatin Calcium 10 Mg Tablet) 10 mg PO DAILY [facility] Last Admin: 05/01/24 10:45 Dose: Not Given Documented By: LEAH Non-Admin Reason: NPO Ceftriaxone Sodium (Ceftriaxone Sodium 1 Gm Vial) 1 gm IVPUSH Q24H [facility] Last Admin: 05/01/24 10:57 Dose: 1 gm Documented By: LEAH Doxazosin Mesylate (Doxazosin Mesylate 2 Mg Tablet) 4 mg PO BEDTIME [facility] Last Admin: 05/01/24 19:51 Dose: 4 mg Documented By: WALTER Empagliflozin (Empagliflozin 10 Mg Tablet) 10 mg PO DAILY [facility] Last Admin: 05/01/24 11:49 Dose: Not Given Documented By: LEAH Non-Admin Reason: NPO Glucose (Glucose Gel 15 Gm Gel..Gram.) 15 gm PO Q15M PRN; Protocol PRN Reason: per Hypoglycemia Standing Ord. Glucose (Glucose Gel 15 Gm Gel..Gram.) 15 gm PO Q15M PRN; Protocol PRN Reason: per Hypoglycemia Standing Ord. Dextrose (D10) 250 mls @ 750 mls/hr IV Q15M PRN; Protocol PRN Reason: per Hypoglycemia Standing Ord. Azithromycin 500 mg/ Sodium (Chloride) 250 mls @ 125 mls/hr IV Q24H [facility] Last Infusion: 05/01/24 10:59 Dose: Infused Documented By: LEAH Dextrose (D10) 250 mls @ 750 mls/hr IV Q15M PRN; Protocol PRN Reason: per Hypoglycemia Standing Ord. Insulin Human Lispro (Insulin Lispro 100 Unit/Ml 3 Ml Vial) 0 unit SUBCUT Q6H [facility]; Protocol Last Admin: 05/02/24 06:19 Dose: Not Given Documented By: WALTER Non-Admin Reason: No Insulin Coverage Morphine Sulfate (Morphine Sulfate 2 Mg/Ml Cartridge) 2 mg IVPUSH Q6H PRN; Protocol PRN Reason: Pain, Severe (Pain Scale 7-10) Last Admin: 05/01/24 18:21 Dose: 2 mg Documented By: LEAH Nifedipine (Nifedipine Er 30 Mg Tab.Er.24) 30 mg PO BEDTIME [facility] Last Admin: 05/01/24 19:51 Dose: 30 mg Documented By: WALTER Omeprazole (Omeprazole 20 Mg Capsule.) 20 mg PO BID@0630,1630 [facility] Last Admin: 05/02/24 06:19 Dose: 20 mg Documented By: WALTER Ondansetron HCl (Ondansetron Hcl 4 Mg/2 Ml Vial) 4 mg IVPUSH Q8H PRN PRN Reason: Nausea and Vomiting Senna (Sennosides 8.6 Mg Tablet) 17.2 mg PO BEDTIME PRN PRN Reason: constipation Sitagliptin Phosphate (Sitagliptin Phosphate 25 Mg Tablet) 25 mg PO DAILY [facility] Last Admin: 05/01/24 11:50 Dose: Not Given Documented By: LEAH Non-Admin Reason: NPO Sodium Chloride (0.9 % Sodium Chloride Flush 3 Ml Syringe) 3 ml IVFLUSH QSHIFT [facility] Last Admin: 05/01/24 20:04 Dose: 3 ml Documented By: WALTER Labs 04/30/24 05:43 04/30/24 05:43 Labs: Laboratory Results - last 24 hr 04/29/24 05/01/24 05/01/24 17:02 11:11 16:28 POC Glucose 76 100 Fl Pathologist Review SEE NOTE 05/01/24 05/02/24 05/02/24 23:44 06:15 07:28 POC Glucose 155 H 115 126 H Fl Pathologist Review Microbiology Microbiology Results: Microbiology 04/29/24 17:06 Gram Stain - Final Pleural Fluid Routine Culture - Final No growth after 2 days Anaerobic Culture - Preliminary No growth to date. 04/29/24 17:02 Urine Culture - Final Urine clean catch - Clean Catch Midstream Streptococcus viridans group 04/29/24 09:48 Blood Culture - Preliminary Blood - Venous No growth after 48 hours. 04/29/24 09:48 Blood Culture - Preliminary Blood - Venous No growth after 48 hours. Assessment and Plan (1) Lung mass: Status: Acute (2) Pleural effusion: Status: Acute (3) Pleural hemorrhage: Status: Acute Plan 78/m HTN, HLD, DM, BPH here with SOB and found to have a large Left sided pleural effusion s/p thoracenesis in the ED Left pleural effusion s/p thoracentesis in the ED, fluid analysis pending, but doesn't appear to be parapneumonic, possible underlying mass -Empric Ceftriaxone and Azithro -Pulmonology and thoracic surgery consult -s/p thoracentesis on 04/30, and chest tube on 05/01 -fluid is positive for malignancy -oncology consult HypOnatremia--chronic and stable. 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 - continue Nifedipine. Hold losartan as can cause hyponatremia Hypercholesteremia -Atorvastatin has been continued. [id number] diabetes mellitus -on Januvia, Farxiga and Metformin. Hold metformin -SSI, diabetic diet, POC chec Pancreatic insufficiency -Continue Creon. Anemia of chronic disease--stable GERD -Omeprazole BPH -Denies urinary complaints. Terazosin and tamsulosin continue. Full code DVT prophylaxis: device,d/t bloody P. effusion Quality Stroke Does the patient have a stroke diagnosis?: No VTE Prior VTE?: No VTE Risk Level:: Medical - moderate - high VTE Device Contraindication: N/A - Device Ordered VTE Drug Contraindication: Treatment Not Indicated (May need repeat thoracentesis)
[2024-05-02] MEDS: 0.9 % Sodium Chloride Flush 3 ML SYRINGE IVFLUSH ×3 (09:33→22:25)
[2024-05-02] MEDS: Morphine Sulfate 2 MG/ML CARTRIDGE IVPUSH ×3 (09:52→22:24)
[2024-05-02] MEDS: Lipase/Prot/Amylase 24/76/120K 1 CAP CAPSULE.DR 2 CAP PO ×2 (09:56→20:42)
--- NOTE | 2024-05-02 10:13 | MHC.CM.PN ---
Per ROUNDS discussion, Patient has a chest tube and is not yet medically cleared for dc. Home/resume services is the goal and CM will continue to follow.
[2024-05-02 10:45] LABS: Hematocrit 38.7 % (42.0-52.0); Hemoglobin 13.1 g/dl (14.0-18.0); Mean Corpuscular HGB Conc 33.9 g/dl (31.0-36.0); Mean Corpuscular Hemoglobin 27.1 pg (27.0-33.0); Mean Platelet Volume 8.2 fL (9.4-12.4); Platelet Count 473 X10*3/uL (160-400); Red Blood Count 4.84 X10*6/uL (4.60-5.80); Red Cell Distribution Width 15.8 % (11.0-16.0); White Blood Count 13.3 X10*3/uL (4.8-10.8)
[2024-05-02 11:14] LABS: Anion Gap 14 (12-20); Blood Urea Nitrogen 12 mg/dL (9-16); Calcium 9.7 mg/dL (8.4-10.2); Carbon Dioxide 24 mmol/L (22-29); Chloride 99 mmol/L (96-108); Creatinine Clr Calc Pharmacy 73.5; Estimated Glomerular Filt Rate > 60; Glucose Random 142 mg/dL (60-115); Magnesium 1.7 mg/dL (1.6-2.6); Potassium 4.2 mmol/L (3.3-5.1); Sodium 133 mmol/L (135-145)
[2024-05-02 11:54] LABS: Glucose, Whole Blood 196 mg/dL (60-115)
--- NOTE | 2024-05-02 12:41 | P.CNHO_ITS ---
Subjective - Subjective Chief complaint: Shortness of breath Patient: new to practice Consult date: 05/02/24 Requesting Physician: Hospitalist team Primary Care Provider: ROB Brewer HPI - Consult Narrative Reason for consult: Malignant pleural effusion Narrative: Lei Drew is a 78 year old male who presented to [facility] emergency room on 04/29/2024 with complaints of shortness of breath which started rather suddenly in the last 2-3 days. Patient says that he has not been feeling well in the last 3-4 months and lost nearly 40 lb. However he did not have significant cough or shortness of breath until recently. He underwent a chest x-ray which showed a large dense consolidation with pleural effusion in the left lung. CT chest confirmed the same and he was admitted for further evaluation and treatment. A diagnostic thoracentesis in the ED demonstrated 500 mL of bloody pleural drainage, cytology came back positive for carcinoma. He has had left chest tube placed. He reports improvement in his shortness of breath since drainage of pleural fluid. He was never a smoker. He lives at home with his , daughter and grandkids. He has no other complaints such as fever, chills, night sweats, headache or dizziness. No abdominal pain or change in bowel habits. Review of Systems - Constitutional Reports as per HPI - Cardiovascular Reports no additional cardiovascular complaints - Respiratory Reports no additional respiratory complaints - Gastrointestinal Reports no additional gastrointestinal complaints - Neurologic Reports no additional neurologic complaints [facility] Medical History: Medical History (Last Updated 04/30/24 @ 11:07 by John Diallo MD) Acute hyponatremia BPH (benign prostatic hyperplasia) Cataract Colon cancer screening COVID-19 virus infection Diabetes Diverticulosis Erectile dysfunction Gastritis Hydrocele Hypercholesteremia Hypertension Hyponatremia Pleural hemorrhage Family History: Family History (Last Reviewed 04/29/24 @ 16:04 by ROB Ortiz) Father Diabetes Mother Diabetes Uterus cancer Mother Cancer Surgical History: Surgical History (Last Reviewed 04/29/24 @ 16:04 by ROB Ortiz) History of bilateral knee replacement History of prostate surgery Hx of colonoscopy Social History: Social History (Last Reviewed 04/29/24 @ 16:04 by ROB Ortiz) Living Situation History: Household Members: Spouse Housing: Apartment Housing Other:: housing apartment Are you a primary youth care specialist to a significant other at home: No Do you presently have visiting nurse or other home services: Yes Tobacco History: Patient Tobacco Use Status: Never used Tobacco Occupation Assessmet: service: No Current occupational status: retired Current occupation: right handed Home Medications and Allergies Current Medications: Current Medications Acetaminophen (Acetaminophen 325 Mg Tablet) 650 mg PO Q6H PRN PRN Reason: Pain, Mild (Pain Scale 1-3), fever or headache Albuterol/Ipratropium (Albuterol/Iprat 2.5/0.5mg 3 Ml Ampul.Neb) 3 ml INHALE RQ4H WHILE AWAKE PRN PRN Reason: sob Last Admin: 04/30/24 18:03 Dose: 3 ml Lipase/Protease/Amylase (Lipase/Prot/Amylase 24/76/120k 1 Cap Capsule.Dr) 2 cap PO TID JOHNATHAN Last Admin: 05/02/24 09:56 Dose: 2 cap Atorvastatin Calcium (Atorvastatin Calcium 10 Mg Tablet) 10 mg PO DAILY JOHNATHAN Last Admin: 05/02/24 09:32 Dose: 10 mg Ceftriaxone Sodium (Ceftriaxone Sodium 1 Gm Vial) 1 gm IVPUSH Q24H JOHNATHAN Last Admin: 05/02/24 09:32 Dose: 1 gm Doxazosin Mesylate (Doxazosin Mesylate 2 Mg Tablet) 4 mg PO BEDTIME JOHNATHAN Last Admin: 05/01/24 19:51 Dose: 4 mg Empagliflozin (Empagliflozin 10 Mg Tablet) 10 mg PO DAILY JOHNATHAN Last Admin: 05/02/24 09:32 Dose: 10 mg Glucose (Glucose Gel 15 Gm Gel..Gram.) 15 gm PO Q15M PRN; Protocol PRN Reason: per Hypoglycemia Standing Ord. Glucose (Glucose Gel 15 Gm Gel..Gram.) 15 gm PO Q15M PRN; Protocol PRN Reason: per Hypoglycemia Standing Ord. Dextrose (D10) 250 mls @ 750 mls/hr IV Q15M PRN; Protocol PRN Reason: per Hypoglycemia Standing Ord. Azithromycin 500 mg/ Sodium (Chloride) 250 mls @ 125 mls/hr IV Q24H JOHNATHAN Last Infusion: 05/02/24 12:21 Dose: Infused Dextrose (D10) 250 mls @ 750 mls/hr IV Q15M PRN; Protocol PRN Reason: per Hypoglycemia Standing Ord. Insulin Human Lispro (Insulin Lispro 100 Unit/Ml 3 Ml Vial) 0 unit SUBCUT Q6H JOHNATHAN; Protocol Last Admin: 05/02/24 06:19 Dose: Not Given Morphine Sulfate (Morphine Sulfate 2 Mg/Ml Cartridge) 2 mg IVPUSH Q6H PRN; Protocol PRN Reason: Pain, Severe (Pain Scale 7-10) Last Admin: 05/02/24 09:52 Dose: 2 mg Nifedipine (Nifedipine Er 30 Mg Tab.Er.24) 30 mg PO BEDTIME [facility] Last Admin: 05/01/24 19:51 Dose: 30 mg Omeprazole (Omeprazole 20 Mg Capsule.Dr) 20 mg PO BID@0630,1630 [facility] Last Admin: 05/02/24 06:19 Dose: 20 mg Ondansetron HCl (Ondansetron Hcl 4 Mg/2 Ml Vial) 4 mg IVPUSH Q8H PRN PRN Reason: Nausea and Vomiting Senna (Sennosides 8.6 Mg Tablet) 17.2 mg PO BEDTIME PRN PRN Reason: constipation Sitagliptin Phosphate (Sitagliptin Phosphate 25 Mg Tablet) 25 mg PO DAILY [facility] Last Admin: 05/02/24 09:32 Dose: 25 mg Sodium Chloride (0.9 % Sodium Chloride Flush 3 Ml Syringe) 3 ml IVFLUSH QSHIFT [facility] Last Admin: 05/02/24 09:33 Dose: 3 ml Home Medications ?Medication ?Instructions ?Recorded ?Confirmed ?Type atorvastatin 10 mg tablet 10 mg PO DAILY 05/08/20 04/29/24 History blood sugar diagnostic #10 ea 10/04/20 07/27/23 History cholecalciferol (vitamin D3) 50 50 mcg PO DAILY 10/04/20 04/29/24 History mcg (2,000 unit) capsule lancets 33 gauge #100 ea 10/04/20 07/27/23 History metformin 1,000 mg tablet 1,000 mg PO BID 10/04/20 04/29/24 History multivitamin 1 tab PO DAILY 10/04/20 04/29/24 History dapagliflozin propanediol 10 mg 10 mg PO DAILY 10/09/21 04/29/24 History tablet (Farxiga) sitagliptin phosphate 25 mg tablet 25 mg PO DAILY 05/04/23 04/29/24 History (Rimma) losartan 25 mg tablet 25 mg PO BEDTIME 01/05/24 04/29/24 History nifedipine 30 mg tablet,extended 30 mg PO BEDTIME 01/05/24 04/29/24 History release acetaminophen 325 mg tablet 650 mg PO Q6H PRN Pain 04/29/24 04/29/24 History omeprazole 20 mg capsule,delayed 20 mg PO BID@0630,1630 04/29/24 04/29/24 History release psyllium husk 3.4 gram/5.4 gram 1 tsp PO DAILY 04/29/24 04/29/24 History oral powder (Metamucil) Allergies Allergy/AdvReac Type Severity Reaction Status Date / Time No Known Allergies Allergy Verified 04/29/24 06:43 [No Known Allergies*] Physical Exam Vital signs: Vital Signs Temp 97.8 F 05/02/24 11:26 Pulse 86 05/02/24 11:26 Resp 16 05/02/24 11:26 BP 107/61 05/02/24 11:26 Pulse Ox 96 05/02/24 11:26 O2 Del Method Room Air 05/02/24 11:26 Intake & Output 05/01/24 05/02/24 05/02/24 18:59 06:59 18:59 Intake Total 250 / 750 500 / 750 250 / 250 Output Total 90 / 90 Balance 250 / 660 410 / 660 250 / 250 Intake: Intake, Oral Amount 500 / 500 Intake, IV Amount 250 / 250 250 / 250 Azithromycin 500 mg In 0.9 % 250 / 250 250 / 250 Sodium Chloride 250 ml @ 125 mls/hr IV Q24H [facility] Rx#: [id number] Output: Output, Chest Tube Drainage 90 / 90 Amount Left Posterior Chest 90 / 90 Other: NPO Yes Number of Incontinent Voids 1 Number of Unmeasured Voids 4 0 Urine Bathroom Urine Color Yellow Weight 63.957 kg - Constitutional Present: no acute distress, average body habitus - Routine HEENT Exam Head: Present: normal inspection Eye: Present: EOMI - Routine Neck Exam Present: supple. Absent: lymphadenopathy - Routine Respiratory Exam Present: accessory muscle use, decreased breath sounds - Routine Cardiovascular Exam Cardiovascular: Present: S1, S2, tachycardia - Routine Abdominal Exam Present: soft - Routine Extremities Exam Absent: calf tenderness - Routine Skin Exam Present: intact - Routine Neurological Exam Present: alert, oriented X3. Absent: motor deficit Hem/Onc Consult Result - Labs CBC & Chem 7: 05/03/24 05:57 05/03/24 05:57 Labs: Short CBC 05/02/24 Range/Units 10:32 WBC 13.3 H (4.8-10.8) X10*3/uL Hgb 13.1 L (14.0-18.0) g/dl Hct 38.7 L (42.0-52.0) % Plt Count 473 H (160-400) X10*3/uL BMP 05/02/24 10:32 Sodium 133 L Potassium 4.2 Chloride 99 Carbon Dioxide 24 BUN 12 Creatinine 0.65 Calcium 9.7 D Assessment and Plan Patient Active problem list reviewed?: Yes (1) Large pleural effusion Status: Acute Assessment and plan: 1. This is a 78-year-old male, nonsmoker presenting with large left pleural effusion, preliminary report identifies malignant cells, carcinoma. CT chest without IV contrast performed 04/29/2024 shows the large left pleural effusion causing mass effect and mediastinal shift to the right, atelectasis of left lower lobe and partial atelectasis of left upper lobe. Can not rule out underlying central hilar mass. Chest CT with IV contrast was recommended. CT abdomen/pelvis showed perinephric fat stranding around left kidney of uncertain etiology. No kidney stone or hydronephrosis. Right inguinal hernia containing fat and loop of bowel without obstruction. Patient will need to have CT chest with IV contrast after drainage of left pleural effusion. Recommend PleurX catheter for malignant pleural effusion. Final pathology is pending. If additional tissue is required for diagnosis and molecular studies, biopsy of lung mass may be required. LDH is normal, CEA has been ordered. I discussed all of the above with the patient in the presence of court interpreter. I thank you for the consult, will follow with you. - Time Spent With Patient Time Spent with Patient (in minutes): 25
--- NOTE | 2024-05-02 15:46 | MHC.SL.DTX ---
Dysphagia Diet modifications: Last documented Solid diet consistencies: Chopped/Advanced (NDD3) Last documented Liquid consistency: Thin Changes made to current diet?: No Liquid Consistency and Strategies: Liquid Intake Recommendation: Thin Compensatory Strategies for Safe Swallow: Small Sips Compensatory Strategies for Safe Swallow(b): Sitting Upright (90 deg) Small Bites and Sips Alternate Liquids/Solids Rate of Ingestion Change Avoid Specific Foods Solid Food Consistency: Dietary Recommendations: Chopped/Advanced (NDD3) Oral Medication Intake: Whole with Puree Strategies and Precautions to be Taken for Safe Swallow: Sitting Upright (90 deg) Small Bites and Sips Alternate Liquids/Solids Rate of Ingestion Change Avoid Specific Foods Supervision While Eating and/Drinking: Total Assistance (1:1) Foods to Avoid: Mixed consistencies Swallowing Recommended Treatments: Compens. Strategy Educat. Level of Impact on: Daily activities: Mild Education: None Employment: None Community: Mild Prognosis for Improvement: Good Recommendation for Speech: Inpatient Speech Therapy Comment: Recommend start on GROUND/MECH ALTERED (NDD2) solids and NECTAR THICK liquids, pills CRUSHED in PUREE. Patient is able to feed himself without difficulty. BIOPHYSICS TEACHER discussed w/ patient and family strategies recommended for safety: take small bites/sips, one bite/sip at a time, slow pacing between bites/sips, remain upright while eating/drinking and for at least 30 minutes afterwards, avoid the use of straws. 1:1 supervision and close monitoring. Discontinue feeding if patient exhibits any overt s/s of aspiration. Frequency/Duration: PRN M-F Additional Comments: Treatment: Pt is resting upright with his Daughter at his side. He is noted to have several thin liquid beverages (soda, bottled water) in arms reach. He is seen with the assistance of a medical laboratory manager. Pt is complaintive of the food he has been getting. BIOPHYSICS TEACHER explains they here for re-assessment which he agrees to. He tolerated x5 self-administered sips of thin liquids. Pt is noted to take slow, careful sips on his own. He tolerated Puree Solids and a Regular Solid (dry humaira cracker) with prolonged mastication and oral residue requiring thin liquids to clear. No overt s/s of aspiration present during the initial part of the exam. The Pt continued his observations about his swallowing and stated that he only coughs after he eats (?esophageal dysmotility) indeed this was confirmed as the Pt demonstrated cough 30-60 seconds after the end of his trials. Recommend upgrade to Chopped/Advanced Solids with Thin Liquids. Meds Whole with Puree. Intermittent supervision. Esophageal issue would be better investigated with a Barium Swallow Study. Paper Bag Maker Clinician/Clinical Fellow: No Supervisory Statement: I have reviewed and agree with the student/clinical fellow's documentation: N/A Speech Language Pathologist: Anders Kaur M.A., CCC-BIOPHYSICS TEACHER
[2024-05-02 16:03] LABS: Glucose, Whole Blood 198 mg/dL (60-115)
[2024-05-02] MEDS: Insulin Lispro 100 UNIT/ML 3 ML VIAL SUBCUT (17:55)
[2024-05-02] MEDS: NIFEdipine ER 30 MG TAB.ER.24 PO (20:43)
[2024-05-02] MEDS: Doxazosin Mesylate 2 MG TABLET 4 MG PO (20:44)
[2024-05-02] MEDS: Acetaminophen 325 MG TABLET 650 MG PO (20:44)
[2024-05-02 20:48] LABS: Glucose, Whole Blood 144 mg/dL (60-115)
--- NOTE | 2024-05-02 20:48 | HO.WOUND ---
Wound consult: Initial 78yrold male admitted to [facility] on 04/29/24 - see H&P for detailed history. Wound consult placed for coccyx wound. Patient greenlandic speaking - staff at bedside to interpret. Patient c/o pain to coccyx. Patient was noted to be in incontinence brief and foam dressing to coccyx saturated with urine along with bed linen and hospital gown. Incontinence care was provided along with linen change. Discussed with direct care team to discontinue brief use and provide incontinence care when soiled. Coccyx assessed for MASD - Intertrigo. There is mild erythema noted to periwound remain blanchable. The wound is linear and is along the base of the gluteal fold consistent with intertrigo. Edges are macerated. Wound bed: pink moist with adherent thin slough. No induration no fluctuance and no s/s of infection at this time. Recommendations: 1. Turn and reposition Q 2 hours with use of pillows. 2. Use barrier creams for prevention with incontinence. 3. Nutrition following. 4. Coccyx, Buttock and Scrotum - Cleanse with Nina spray, pat dry. Once dry apply triad to wound bed and surrounding tissue. Pat and dab when soiled do not scrub and rub. Apply twice daily and after each episode of incontinence.
[2024-05-03] VITALS (7 sets, daily range): BP systolic 119–129; BP diastolic 60–72; PULSE 79–94; RESP 16–22; TEMP 36.2–36.7; O2SAT 97–100
[2024-05-03] MEDS: Morphine Sulfate 2 MG/ML CARTRIDGE IVPUSH ×2 (05:12→21:07)
[2024-05-03] MEDS: Omeprazole 20 MG CAPSULE.DR PO ×2 (05:45→17:20)
[2024-05-03 07:06] LABS: Hemoglobin 12.3 g/dl (14.0-18.0); Mean Corpuscular HGB Conc 33.2 g/dl (31.0-36.0); Mean Corpuscular Hemoglobin 26.7 pg (27.0-33.0); Mean Corpuscular Volume 80.4 fL (80.0-98.0); Mean Platelet Volume 8.8 fL (9.4-12.4); Platelet Count 463 X10*3/uL (160-400); Red Cell Distribution Width 15.6 % (11.0-16.0); White Blood Count 13.4 X10*3/uL (4.8-10.8)
[2024-05-03 07:22] LABS: Anion Gap 11 (12-20); Blood Urea Nitrogen 12 mg/dL (9-16); Calcium 8.7 mg/dL (8.4-10.2); Carbon Dioxide 24 mmol/L (22-29); Chloride 101 mmol/L (96-108); Creatinine Clr Calc Pharmacy 82.3; Estimated Glomerular Filt Rate > 60; Glucose Random 111 mg/dL (60-115); Potassium 3.8 mmol/L (3.3-5.1); Sodium 132 mmol/L (135-145)
--- NOTE | 2024-05-03 07:59 | HO.STUDPN_ITS ---
Subjective Subjective Date of Service: 05/03/24 <Lucinda Hatfieldmad - Last Filed: 05/03/24 08:38> 05/03/24 <Vanessa Loza PA-C - Last Filed: 05/03/24 08:42> 05/03/24 <Memo Lainez MD - Last Filed: 05/03/24 11:25> Interval History: Pt reports that pain medications have been helping, no pain near chest tube site today. He was able to have a good night of sleep. Pt reports waking up wheezing, and having episodes of tingling throat with productive cough with yellow phlegm. Pt reports feeling out of breathn when coughing. Pt is not ambulating, he reports it is difficult for him to move around. He reports having nurses help when he has a BM, he has increased urgency when urinating and is not able to make it to the bathroom for this reason. No burning with urination. Pt also reports pain BL legs, reports swelling and spots that occur near the area. Moving legs helps with symptoms. Pt is using incentive spirometer in the morning and afternoon. <Lucinda Ahmad - Last Filed: 05/03/24 08:38> Constitutional NO fever, no chills <Lucinda Ahmad - Last Filed: 05/03/24 08:38> Cardiovascular no palpitatoins <Lucinda Ahmad - Last Filed: 05/03/24 08:38> Respiratory see HPI <Lucinda Ahmad - Last Filed: 05/03/24 08:38> Gastrointestinal no N/V, no abdominal pain <Lcuinda Ahmad - Last Filed: 05/03/24 08:38> Genitourinary see HPI <Lucinda Ahmad - Last Filed: 05/03/24 08:38> Integumentary/Breasts No rash, no itching <Lucinda Ahmad - Last Filed: 05/03/24 08:38> Neurologic no DEJESUS <Lucinda Ahmad - Last Filed: 05/03/24 08:38> Physical Exam 2 Vital Signs: Vital Signs: Last Vital Signs Temp 97.2 F 05/03/24 04:00 Pulse 84 05/03/24 04:00 Resp 16 05/03/24 04:00 BP 129/61 05/03/24 04:00 Pulse Ox 98 05/03/24 04:00 O2 Del Method Room Air 05/03/24 04:00 BMI result Body Mass Index 25.8 <[facility] - Last Filed: 05/03/24 08:38> Chest: Other: Chest tube intact with serosanguinous fluid. <[facility] - Last Filed: 05/03/24 08:38> Other: Chest tube intact with serosanguinous fluid, no air leak <Vanessa Loza PA-C - Last Filed: 05/03/24 08:42> Resp: Other: diminished chest sounds Left lower lung field, normal WOB <[facility] - Last Filed: 05/03/24 08:38> Neuro: Other: Alert and Oriented x3 <[facility] - Last Filed: 05/03/24 08:38> Objective Data Active Medications Acetaminophen (Acetaminophen 325 Mg Tablet) 650 mg PO Q6H PRN PRN Reason: Pain, Mild (Pain Scale 1-3), fever or headache Last Admin: 05/02/24 20:44 Dose: 650 mg Documented By: ARISTIDES Albuterol/Ipratropium (Albuterol/Iprat 2.5/0.5mg 3 Ml Ampul.Neb) 3 ml INHALE RQ4H WHILE AWAKE PRN PRN Reason: sob Last Admin: 04/30/24 18:03 Dose: 3 ml Documented By: JERRY Lipase/Protease/Amylase (Lipase/Prot/Amylase 24/76/120k 1 Cap Capsule.Dr) 2 cap PO TID [facility] Last Admin: 05/02/24 20:42 Dose: 2 cap Documented By: ARISTIDES Atorvastatin Calcium (Atorvastatin Calcium 10 Mg Tablet) 10 mg PO DAILY [facility] Last Admin: 05/02/24 09:32 Dose: 10 mg Documented By: JACQUELYN Ceftriaxone Sodium (Ceftriaxone Sodium 1 Gm Vial) 1 gm IVPUSH Q24H [facility] Last Admin: 05/02/24 09:32 Dose: 1 gm Documented By: JACQUELYN Doxazosin Mesylate (Doxazosin Mesylate 2 Mg Tablet) 4 mg PO BEDTIME [facility] Last Admin: 05/02/24 20:44 Dose: 4 mg Documented By: ARISTIDES Empagliflozin (Empagliflozin 10 Mg Tablet) 10 mg PO DAILY [facility] Last Admin: 05/02/24 09:32 Dose: 10 mg Documented By: JACQUELYN Glucose (Glucose Gel 15 Gm Gel..Gram.) 15 gm PO Q15M PRN; Protocol PRN Reason: per Hypoglycemia Standing Ord. Glucose (Glucose Gel 15 Gm Gel..Gram.) 15 gm PO Q15M PRN; Protocol PRN Reason: per Hypoglycemia Standing Ord. Dextrose (D10) 250 mls @ 750 mls/hr IV Q15M PRN; Protocol PRN Reason: per Hypoglycemia Standing Ord. Azithromycin 500 mg/ Sodium (Chloride) 250 mls @ 125 mls/hr IV Q24H [facility] Last Infusion: 05/02/24 12:21 Dose: Infused Documented By: JACQUELYN Dextrose (D10) 250 mls @ 750 mls/hr IV Q15M PRN; Protocol PRN Reason: per Hypoglycemia Standing Ord. Insulin Human Lispro (Insulin Lispro 100 Unit/Ml 3 Ml Vial) 0 unit SUBCUT Q6H [facility]; Protocol Last Admin: 05/03/24 02:04 Dose: Not Given Documented By: ARISTIDES Non-Admin Reason: assessed, no action needed Morphine Sulfate (Morphine Sulfate 2 Mg/Ml Cartridge) 2 mg IVPUSH Q6H PRN; Protocol PRN Reason: Pain, Severe (Pain Scale 7-10) Last Admin: 05/03/24 05:12 Dose: 2 mg Documented By: ARISTIDES Nifedipine (Nifedipine Er 30 Mg Tab.Er.24) 30 mg PO BEDTIME [facility] Last Admin: 05/02/24 20:43 Dose: 30 mg Documented By: ARISTIDES Omeprazole (Omeprazole 20 Mg Capsule.) 20 mg PO BID@0630,1630 [facility] Last Admin: 05/03/24 05:45 Dose: 20 mg Documented By: ARISTIDES Ondansetron HCl (Ondansetron Hcl 4 Mg/2 Ml Vial) 4 mg IVPUSH Q8H PRN PRN Reason: Nausea and Vomiting Senna (Sennosides 8.6 Mg Tablet) 17.2 mg PO BEDTIME PRN PRN Reason: constipation Sitagliptin Phosphate (Sitagliptin Phosphate 25 Mg Tablet) 25 mg PO DAILY [facility] Last Admin: 05/02/24 09:32 Dose: 25 mg Documented By: JACQUELYN Sodium Chloride (0.9 % Sodium Chloride Flush 3 Ml Syringe) [facility] Last Admin: 05/02/24 22:25 Dose: 3 ml Documented By: ARISTIDES [facility] Last Filed: 05/03/24 08:38> Labs CBC & Chem 7: 05/03/24 05:57 05/03/24 05:57 <Lucinda mad - Last Filed: 05/03/24 08:38> Labs: Laboratory Results - last 24 hr 04/29/24 05/02/24 05/02/24 17:02 10:32 11:31 MCV 80.0 MCH 27.1 MCHC 33.9 RDW 15.8 Plt Count 473 H MPV 8.2 L Absolute Nucleated RBC 0.000 Nucleated RBC % (auto) 0.0 Anion Gap 14 Estim Creat Clear Calc 73.5 Estimated GFR > 60 POC Glucose 196 H Random Glucose 142 H Calcium 9.7 D Magnesium 1.7 Fl Pathologist Review SEE NOTE 05/02/24 05/02/24 05/03/24 15:59 20:43 05:57 MCV 80.4 MCH 26.7 L MCHC 33.2 RDW 15.6 Plt Count 463 H MPV 8.8 L Absolute Nucleated RBC 0.000 Nucleated RBC % (auto) 0.0 Anion Gap 11 L Estim Creat Clear Calc 82.3 Estimated GFR > 60 POC Glucose 198 H 144 H Random Glucose 111 Calcium 8.7 D Magnesium Fl Pathologist Review <[facility] - Last Filed: 05/03/24 08:38> Microbiology Microbiology Results: Microbiology 04/29/24 17:06 Gram Stain - Final Pleural Fluid Routine Culture - Final No growth after 2 days Anaerobic Culture - Preliminary No growth to date. 04/29/24 17:02 Urine Culture - Final Urine clean catch - Clean Catch Midstream Streptococcus viridans group <[facility] - Last Filed: 05/03/24 08:38> Assessment and Plan (1) Pleural effusion: Status: Acute <Lucinda mad - Last Filed: 05/03/24 08:38> Assessment and Plan: 78 year old male presented to the ED 5 days ago with chief complain of SOB, chest tightness and congestion. Left thoracocenteiss was permored in the ED(04/27). Abdomen pelvis CT w/IV contrast on 04/29 showed impression of large left pleural effusion. Chest tube was placed 2 days ago (05/01). Chest X-ray yesterday (05/02) showed ?Redemonstration of left chest tube with sidehole now projecting at or? just within the left hemithorax. Correlation with clinical exam? recommended.Persistent [id number] left pleural effusion Redemonstration of?extensive left basilar consolidation and left pleural effusion. Mild? right basilar opacity.? Body fluid path results were released on 05/02 ?Positive for malignant cells, favor carcinoma.? Recommended to continue using incentive spirmoter. Possibly portable hospital bed urine cup to help with urgency of urinating instead of Pat catheter. However it would be best to encourage pt to continue ambulating.Plan to switch to water seal chest tube. Plan for PleurX catheter. ? <Lucinda Park - Last Filed: 05/03/24 08:38> Assessment and Plan: Left pleural effusion, presumed malignant. Cytology pending. He is respiratory stable, chest tube output slowly decreasing. Discussion regarding sclerosing to prevent recurrence but oncology would like Pleur-x catheter placed instead. He has been added onto the OR schedule for Wednesday. Can place to water seal for toileting. Continue incentive spirometry, pain control. <Vanessa Loza PA-C - Last Filed: 05/03/24 08:42> Quality Stroke Does the patient have a stroke diagnosis?: No <Lucinda Park - Last Filed: 05/03/24 08:38> VTE Prior VTE?: No <Lucinda Park - Last Filed: 05/03/24 08:38> VTE Risk Level:: Medical - moderate - high <Lucinda Park - Last Filed: 05/03/24 08:38> VTE Device Contraindication: N/A - Device Ordered <Lucinda Park - Last Filed: 05/03/24 08:38> VTE Drug Contraindication: Treatment Not Indicated (May need repeat thoracentesis) <Lucinda Park - Last Filed: 05/03/24 08:38>
[2024-05-03 08:28] LABS: Glucose, Whole Blood 182 mg/dL (60-115)
[2024-05-03] MEDS: Atorvastatin Calcium 10 MG TABLET PO (08:42)
[2024-05-03] MEDS: SITagliptin Phosphate 25 MG TABLET PO (08:42)
[2024-05-03] MEDS: Empagliflozin 10 MG TABLET PO (08:42)
[2024-05-03] MEDS: Insulin Lispro 100 UNIT/ML 3 ML VIAL SUBCUT ×2 (08:47→17:19)
[2024-05-03] MEDS: 0.9 % Sodium Chloride Flush 3 ML SYRINGE IVFLUSH ×3 (08:47→21:07)
[2024-05-03] MEDS: Lipase/Prot/Amylase 24/76/120K 1 CAP CAPSULE.DR 2 CAP PO ×3 (08:47→21:08)
[2024-05-03] MEDS: cefTRIAXone sodium 1 GM VIAL IVPUSH (09:48)
[2024-05-03] MEDS: Azithromycin 500 MG in 0.9 % Sodium Chloride 250 ML 125 MG IV (09:48)
--- NOTE | 2024-05-03 11:51 | HO.PM.IMPN ---
Subjective Subjective Date of Service: 05/03/24 Interval History: f/u on dyspnea d/t left pleural effuson s/p thoracentesis in ED 04/27, chest tube inserted 05/01. Pleural fluid is + for carcinoma respiratory satus is stable. Physical Exam Vital Signs: Vital Signs: Last Vital Signs Temp 97.2 F 05/03/24 08:00 Pulse 81 05/03/24 08:00 Resp 20 05/03/24 08:00 BP 126/66 05/03/24 08:00 Pulse Ox 99 05/03/24 08:00 O2 Del Method Room Air 05/03/24 08:00 BMI result Body Mass Index 25.8 General: Alert, no in distress, looks frail Resp: diminished on left side, left chest tube in place, bloody fluid CVS: S1,S2,RRR GI: +BS, NT, no distention Skin: No rash Neuro: motor grossly intact Psych: appropriate affect Objective Data Active Medications Acetaminophen (Acetaminophen 325 Mg Tablet) 650 mg PO Q6H PRN PRN Reason: Pain, Mild (Pain Scale 1-3), fever or headache Last Admin: 05/02/24 20:44 Dose: 650 mg Documented By: ARISTIDES Albuterol/Ipratropium (Albuterol/Iprat 2.5/0.5mg 3 Ml Ampul.Neb) 3 ml INHALE RQ4H WHILE AWAKE PRN PRN Reason: sob Last Admin: 04/30/24 18:03 Dose: 3 ml Documented By: JERRY Lipase/Protease/Amylase (Lipase/Prot/Amylase 24/76/120k 1 Cap Capsule.) 2 cap PO TID [facility] Last Admin: 05/03/24 08:47 Dose: 2 cap Documented By: JACQUELYN Atorvastatin Calcium (Atorvastatin Calcium 10 Mg Tablet) 10 mg PO DAILY [facility] Last Admin: 05/03/24 08:42 Dose: 10 mg Documented By: JACQUELYN Ceftriaxone Sodium (Ceftriaxone Sodium 1 Gm Vial) 1 gm IVPUSH Q24H [facility] Last Admin: 05/03/24 09:48 Dose: 1 gm Documented By: JACQUELYN Doxazosin Mesylate (Doxazosin Mesylate 2 Mg Tablet) 4 mg PO BEDTIME [facility] Last Admin: 05/02/24 20:44 Dose: 4 mg Documented By: ARISTIDES Empagliflozin (Empagliflozin 10 Mg Tablet) 10 mg PO DAILY [facility] Last Admin: 05/03/24 08:42 Dose: 10 mg Documented By: JACQUELYN Glucose (Glucose Gel 15 Gm Gel..Gram.) 15 gm PO Q15M PRN; Protocol PRN Reason: per Hypoglycemia Standing Ord. Glucose (Glucose Gel 15 Gm Gel..Gram.) 15 gm PO Q15M PRN; Protocol PRN Reason: per Hypoglycemia Standing Ord. Dextrose (D10) 250 mls @ 750 mls/hr IV Q15M PRN; Protocol PRN Reason: per Hypoglycemia Standing Ord. Azithromycin 500 mg/ Sodium (Chloride) 250 mls @ 125 mls/hr IV Q24H [facility] Last Admin: 05/03/24 09:48 Dose: 125 mls/hr Documented By: JACQUELYN Dextrose (D10) 250 mls @ 750 mls/hr IV Q15M PRN; Protocol PRN Reason: per Hypoglycemia Standing Ord. Insulin Human Lispro (Insulin Lispro 100 Unit/Ml 3 Ml Vial) 0 unit SUBCUT Q6H [facility]; Protocol Last Admin: 05/03/24 08:47 Dose: 2 unit Documented By: JACQUELYN Morphine Sulfate (Morphine Sulfate 2 Mg/Ml Cartridge) 2 mg IVPUSH Q6H PRN; Protocol PRN Reason: Pain, Severe (Pain Scale 7-10) Last Admin: 05/03/24 05:12 Dose: 2 mg Documented By: ARISTIDES Nifedipine (Nifedipine Er 30 Mg Tab.Er.24) 30 mg PO BEDTIME [facility] Last Admin: 05/02/24 20:43 Dose: 30 mg Documented By: ARISTIDES Omeprazole (Omeprazole 20 Mg Capsule.) 20 mg PO BID@0630,1630 [facility] Last Admin: 05/03/24 05:45 Dose: 20 mg Documented By: ARISTIEDS Ondansetron HCl (Ondansetron Hcl 4 Mg/2 Ml Vial) 4 mg IVPUSH Q8H PRN PRN Reason: Nausea and Vomiting Senna (Sennosides 8.6 Mg Tablet) 17.2 mg PO BEDTIME PRN PRN Reason: constipation Sitagliptin Phosphate (Sitagliptin Phosphate 25 Mg Tablet) 25 mg PO DAILY [facility] Last Admin: 05/03/24 08:42 Dose: 25 mg Documented By: JACQUELYN Sodium Chloride (0.9 % Sodium Chloride Flush 3 Ml Syringe) 3 ml IVFLUSH QSHIFT [facility] Last Admin: 05/03/24 08:47 Dose: 3 ml Documented By: JACQUELYN Labs 05/03/24 05:57 05/03/24 05:57 Labs: Laboratory Results - last 24 hr 05/02/24 05/02/24 05/02/24 11:31 15:59 20:43 MCV MCH MCHC RDW Plt Count MPV Absolute Nucleated RBC Nucleated RBC % (auto) Anion Gap Estim Creat Clear Calc Estimated GFR POC Glucose 196 H 198 H 144 H Random Glucose Calcium Carcinoembryonic Ag 05/03/24 05/03/24 05:57 08:03 MCV 80.4 MCH 26.7 L MCHC 33.2 RDW 15.6 Plt Count 463 H MPV 8.8 L Absolute Nucleated RBC 0.000 Nucleated RBC % (auto) 0.0 Anion Gap 11 L Estim Creat Clear Calc 82.3 Estimated GFR > 60 POC Glucose 182 H Random Glucose 111 Calcium 8.7 D Carcinoembryonic Ag 4.70 Microbiology Microbiology Results: Microbiology 04/29/24 17:06 Gram Stain - Final Pleural Fluid Routine Culture - Final No growth after 2 days Anaerobic Culture - Preliminary No growth to date. Assessment and Plan (1) Lung mass: Status: Acute (2) Pleural effusion: Status: Acute (3) Pleural hemorrhage: Status: Acute Plan 78/m HTN, HLD, DM, BPH here with SOB and found to have a large Left sided pleural effusion s/p thoracenesis in the ED Left pleural effusion s/p thoracentesis in the ED, fluid analysis pending, but pre-rodriguez malignancy -Empric Ceftriaxone and Azithro -Pulmonology and thoracic surgery consult -s/p thoracentesis on 04/30, and chest tube on 05/01 -for PleurX cath placement wednesday -CT of chest with contrast to further study -oncology following HypOnatremia--chronic and stable. 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 - continue Nifedipine. Hold losartan as can cause hyponatremia Hypercholesteremia -Atorvastatin has been continued. Pgz-[id number] diabetes mellitus -on Januvia, Farxiga and Metformin. Hold metformin -SSI, diabetic diet, POC chec Pancreatic insufficiency -Continue Creon. Anemia of chronic disease--stable GERD -Omeprazole BPH -Denies urinary complaints. Terazosin and tamsulosin continue. Full code DVT prophylaxis: device,d/t bloody P. effusion Quality Stroke Does the patient have a stroke diagnosis?: No VTE Prior VTE?: No VTE Risk Level:: Medical - moderate - high VTE Device Contraindication: N/A - Device Ordered VTE Drug Contraindication: Treatment Not Indicated (May need repeat thoracentesis)
[2024-05-03] MEDS: iohexoL 350 MG/ML 100 ML INFUS..BTL 65 ML IV (12:24)
[2024-05-03 12:36] LABS: Magnesium 1.7 mg/dL (1.6-2.6)
--- NOTE | 2024-05-03 12:46 | PM.HEMONCPN ---
Medical Summary - Medical Summary Date of Service: 05/03/24 Chief complaint: Weakness Primary Care Provider: ROB Brewer Interval History Interval history: Lei Drew is a 78 year old male who presented to [facility] emergency room on 04/29/2024 with complaints of shortness of breath which started rather suddenly in the last 2-3 days. Patient says that he has not been feeling well in the last 3-4 months and lost nearly 40 lb. However he did not have significant cough or shortness of breath until recently. He underwent a chest x-ray which showed a large dense consolidation with pleural effusion in the left lung. CT chest confirmed the same and he was admitted for further evaluation and treatment. A diagnostic thoracentesis in the ED demonstrated 500 mL of bloody pleural drainage, cytology came back positive for carcinoma. He has had left chest tube placed. He reports improvement in his shortness of breath since drainage of pleural fluid. He was never a smoker. He lives at home with his , daughter and grandkids. He has no other complaints such as fever, chills, night sweats, headache or dizziness. No abdominal pain or change in bowel habits. Shortness of breath has improved. He is going for PleurX catheter this Wednesday. He just had CT chest with contrast. Review of Systems - Neurologic Reports no additional neurologic complaints PMFSH Medical History: Medical History (Last Reviewed 05/05/24 @ 07:24 by Angela Montoya RN) Acute hyponatremia BPH (benign prostatic hyperplasia) Cataract Colon cancer screening COVID-19 virus infection Diabetes Diverticulosis Erectile dysfunction Gastritis Hydrocele Hypercholesteremia Hypertension Hyponatremia Pleural hemorrhage Family History: Family History (Last Reviewed 04/29/24 @ 16:04 by ROB Ortiz) Father Diabetes Mother Diabetes Uterus cancer Mother Cancer Surgical History: Surgical History (Last Reviewed 05/05/24 @ 07:24 by Angela Montoya RN) History of bilateral knee replacement History of prostate surgery Hx of colonoscopy Social History: Social History (Last Reviewed 04/29/24 @ 16:04 by ROB Ortiz) Living Situation History: Household Members: Spouse Housing: Apartment Housing Other:: housing apartment Are you a primary personal care attendant to a significant other at home: No Do you presently have visiting nurse or other home services: No Tobacco History: Patient Tobacco Use Status: Never used Tobacco Occupation Assessmet: service: No Current occupational status: retired Current occupation: right handed Home Medications and Allergies Current Medications: Current Medications Acetaminophen (Acetaminophen 325 Mg Tablet) 650 mg PO Q6H PRN PRN Reason: Pain, Mild (Pain Scale 1-3), fever or headache Last Admin: 05/02/24 20:44 Dose: 650 mg Albuterol/Ipratropium (Albuterol/Iprat 2.5/0.5mg 3 Ml Ampul.Neb) 3 ml INHALE RQ4H WHILE AWAKE PRN PRN Reason: sob Last Admin: 04/30/24 18:03 Dose: 3 ml Lipase/Protease/Amylase (Lipase/Prot/Amylase 24/76/120k 1 Cap Capsule.Dr) 2 cap PO TID [facility] Last Admin: 05/03/24 08:47 Dose: 2 cap Atorvastatin Calcium (Atorvastatin Calcium 10 Mg Tablet) 10 mg PO DAILY [facility] Last Admin: 05/03/24 08:42 Dose: 10 mg Ceftriaxone Sodium (Ceftriaxone Sodium 1 Gm Vial) 1 gm IVPUSH Q24H [facility] Last Admin: 05/03/24 09:48 Dose: 1 gm Doxazosin Mesylate (Doxazosin Mesylate 2 Mg Tablet) 4 mg PO BEDTIME [facility] Last Admin: 05/02/24 20:44 Dose: 4 mg Empagliflozin (Empagliflozin 10 Mg Tablet) 10 mg PO DAILY [facility] Last Admin: 05/03/24 08:42 Dose: 10 mg Glucose (Glucose Gel 15 Gm Gel..Gram.) 15 gm PO Q15M PRN; Protocol PRN Reason: per Hypoglycemia Standing Ord. Glucose (Glucose Gel 15 Gm Gel..Gram.) 15 gm PO Q15M PRN; Protocol PRN Reason: per Hypoglycemia Standing Ord. Dextrose (D10) 250 mls @ 750 mls/hr IV Q15M PRN; Protocol PRN Reason: per Hypoglycemia Standing Ord. Azithromycin 500 mg/ Sodium (Chloride) 250 mls @ 125 mls/hr IV Q24H [facility] Last Admin: 05/03/24 09:48 Dose: 125 mls/hr Dextrose (D10) 250 mls @ 750 mls/hr IV Q15M PRN; Protocol PRN Reason: per Hypoglycemia Standing Ord. Insulin Human Lispro (Insulin Lispro 100 Unit/Ml 3 Ml Vial) 0 unit SUBCUT Q6H [facility]; Protocol Last Admin: 05/03/24 08:47 Dose: 2 unit Morphine Sulfate (Morphine Sulfate 2 Mg/Ml Cartridge) 2 mg IVPUSH Q6H PRN; Protocol PRN Reason: Pain, Severe (Pain Scale 7-10) Last Admin: 05/03/24 05:12 Dose: 2 mg Nifedipine (Nifedipine Er 30 Mg Tab.Er.24) 30 mg PO BEDTIME [facility] Last Admin: 05/02/24 20:43 Dose: 30 mg Omeprazole (Omeprazole 20 Mg Capsule.Dr) 20 mg PO BID@0630,1630 [facility] Last Admin: 05/03/24 05:45 Dose: 20 mg Ondansetron HCl (Ondansetron Hcl 4 Mg/2 Ml Vial) 4 mg IVPUSH Q8H PRN PRN Reason: Nausea and Vomiting Senna (Sennosides 8.6 Mg Tablet) 17.2 mg PO BEDTIME PRN PRN Reason: constipation Sitagliptin Phosphate (Sitagliptin Phosphate 25 Mg Tablet) 25 mg PO DAILY [facility] Last Admin: 05/03/24 08:42 Dose: 25 mg Sodium Chloride (0.9 % Sodium Chloride Flush 3 Ml Syringe) [facility] Last Admin: 05/03/24 08:47 Dose: 3 ml Home Medications ?Medication ?Instructions ?Recorded ?Confirmed ?Type atorvastatin 10 mg tablet 10 mg PO DAILY 05/08/20 04/29/24 History blood sugar diagnostic #10 ea 10/04/20 07/27/23 History cholecalciferol (vitamin D3) 50 50 mcg PO DAILY 10/04/20 04/29/24 History mcg (2,000 unit) capsule lancets 33 gauge #100 ea 10/04/20 07/27/23 History metformin 1,000 mg tablet 1,000 mg PO BID 10/04/20 04/29/24 History multivitamin 1 tab PO DAILY 10/04/20 04/29/24 History dapagliflozin propanediol 10 mg 10 mg PO DAILY 10/09/21 04/29/24 History tablet (Farxiga) sitagliptin phosphate 25 mg tablet 25 mg PO DAILY 05/04/23 04/29/24 History (Rimma) losartan 25 mg tablet 25 mg PO BEDTIME 01/05/24 04/29/24 History nifedipine 30 mg tablet,extended 30 mg PO BEDTIME 01/05/24 04/29/24 History release acetaminophen 325 mg tablet 650 mg PO Q6H PRN Pain 04/29/24 04/29/24 History omeprazole 20 mg capsule,delayed 20 mg PO BID@0630,1630 04/29/24 04/29/24 History release psyllium husk 3.4 gram/5.4 gram 1 tsp PO DAILY 04/29/24 04/29/24 History oral powder (Metamucil) Allergies Allergy/AdvReac Type Severity Reaction Status Date / Time No Known Allergies Allergy Verified 05/05/24 07:24 [No Known Allergies*] Exam Vital signs: Vital Signs Temp 97.5 F 05/03/24 12:00 Pulse 87 05/03/24 12:00 Resp 18 05/03/24 12:00 BP 121/70 05/03/24 12:00 Pulse Ox 99 05/03/24 12:00 O2 Del Method Room Air 05/03/24 12:00 Intake & Output 05/02/24 05/03/24 05/03/24 18:59 06:59 18:59 Intake Total 730 / 730 Output Total 290 / 440 150 / 440 Balance 440 / 290 -150 / 290 Intake: Intake, Oral Amount 480 / 480 Intake, IV Amount 250 / 250 Azithromycin 500 mg In 0.9 % 250 / 250 Sodium Chloride 250 ml @ 125 mls/hr IV Q24H [facility] Rx#: [id number] Output: Output, Chest Tube Drainage 290 / 440 150 / 440 Amount Left Posterior Chest 290 / 440 150 / 440 Other: Meal Refused No NPO No Breakfast % Eaten 100% Lunch % Eaten 100% Eating (Feeding) Ability 1:1 Feed Number of Incontinent Voids 2 2 Weight 63.957 kg BMI result Body Mass Index 25.8 - Constitutional Present: no acute distress, average body habitus - Routine HEENT Exam Head: Present: normal inspection - Routine Respiratory Exam Present: accessory muscle use, decreased breath sounds - Routine Cardiovascular Exam Cardiovascular: Present: S1, S2, tachycardia - Routine Abdominal Exam Present: soft - Routine Extremities Exam Absent: calf tenderness - Routine Skin Exam Present: intact - Routine Neurological Exam Present: alert, oriented X3. Absent: motor deficit Data - Labs CBC & Chem 7: 05/05/24 05:36 05/05/24 05:36 Labs: Laboratory Last Values WBC 13.4 X10*3/uL (4.8-10.8) H 05/03/24 05:57 RBC 4.60 X10*6/uL (4.60-5.80) 05/03/24 05:57 Hgb 12.3 g/dl (14.0-18.0) L 05/03/24 05:57 Hct 37.0 % (42.0-52.0) L 05/03/24 05:57 MCV 80.4 fL (80.0-98.0) 05/03/24 05:57 MCH 26.7 pg (27.0-33.0) L 05/03/24 05:57 MCHC 33.2 g/dl (31.0-36.0) 05/03/24 05:57 RDW 15.6 % (11.0-16.0) 05/03/24 05:57 Plt Count 463 X10*3/uL (160-400) H 05/03/24 05:57 MPV 8.8 fL (9.4-12.4) L 05/03/24 05:57 Immature Gran % (Auto) 1.1 % (0.0-0.4) H 04/29/24 07:02 Neut % (Auto) 77.5 % (45-73) H 04/29/24 07:02 Lymph % (Auto) 8.8 % (20-40) L 04/29/24 07:02 [place] % (Auto) 9.3 % (2-11) 04/29/24 07:02 Eos % (Auto) 2.9 % (0-4) 04/29/24 07:02 Baso % (Auto) 0.4 % (0-2) 04/29/24 07:02 Lymph # (Auto) 0.8 X10*3/uL (1.2-4.9) L 04/29/24 07:02 [place] # (Auto) 0.9 X10*3/uL (0.1-1.2) 04/29/24 07:02 Eos # (Auto) 0.3 X10*3/uL (0.0-0.4) 04/29/24 07:02 Baso # (Auto) 0.0 X10*3/uL (0.0-0.2) 04/29/24 07:02 Abs Immat Gran (auto) 0.10 X10*3/uL (0.00-0.03) H 04/29/24 07:02 Absolute Neuts (auto) 7.2 x10*3/uL (2.0-8.3) 04/29/24 07:02 Absolute Nucleated RBC 0.000 X10*3/uL (0.0-0.012) 05/03/24 05:57 Nucleated RBC % (auto) 0.0 /100WBC (0.0-0.2) 05/03/24 05:57 PT 13.6 SEC (10.9-12.4) H 04/29/24 07:02 INR 1.2 (0.9-1.1) H 04/29/24 07:02 APTT 36.1 SEC (26.0-36.8) 04/29/24 17:02 Sodium 132 mmol/L (135-145) L 05/03/24 05:57 Potassium 3.8 mmol/L (3.3-5.1) 05/03/24 05:57 Chloride 101 mmol/L (96-108) 05/03/24 05:57 Carbon Dioxide 24 mmol/L (22-29) 05/03/24 05:57 Anion Gap 11 (12-20) L 05/03/24 05:57 BUN 12 mg/dL (9-16) 05/03/24 05:57 Creatinine 0.58 mg/dL (0.5-1.4) 05/03/24 05:57 Estim Creat Clear Calc 82.3 05/03/24 05:57 Estimated GFR > 60 05/03/24 05:57 POC Glucose 182 mg/dL (60-115) H 05/03/24 08:03 Random Glucose 111 mg/dL (60-115) 05/03/24 05:57 Calcium 8.7 mg/dL (8.4-10.2) D 05/03/24 05:57 Magnesium 1.7 mg/dL (1.6-2.6) 05/03/24 05:57 Iron 17 mcg/dL (45-160) L 04/30/24 05:43 TIBC 230 mcg/dL (228-428) 04/30/24 05:43 % Saturation 7 % (15-50) L 04/30/24 05:43 Unsat Iron Binding 213 ug/dL 04/30/24 05:43 Ferritin 186 ng/mL (20-250) 04/30/24 05:43 Total Bilirubin 0.6 mg/dL (0.0-1.0) 04/29/24 07:02 Direct Bilirubin 0.3 mg/dL (0.0-0.5) 04/29/24 07:02 AST 12 U/L (5-37) 04/29/24 07:02 ALT 12 U/L (0-40) 04/29/24 07:02 Alkaline Phosphatase 93 U/L (39-117) 04/29/24 07:02 Lactate Dehydrogenase 236 U/L (118-273) 04/29/24 17:02 Troponin I High Sens 3.9 ng/L (<3.5-35.0) 04/29/24 07:02 B-Natriuretic Peptide 39 pg/mL (<100) 04/29/24 07:02 Total Protein 6.7 g/dL (6.5-8.0) 04/29/24 17:02 Albumin 3.6 g/dL (3.5-5.0) 04/29/24 07:02 Carcinoembryonic Ag 4.70 ng/mL 05/03/24 05:57 Vitamin B12 323 pg/mL (200-900) 04/30/24 05:43 Folate 9.9 ng/mL (> or = 4.0) 04/30/24 05:43 Urine Color Yellow 04/29/24 17:02 Urine Appearance Clear 04/29/24 17:02 Urine pH 5.0 (5.0-9.0) 04/29/24 17:02 Ur Specific [place] 1.020 (1.005-1.025) 04/29/24 17:02 Urine Protein Negative mg/dL (Neg-Trace) 04/29/24 17:02 Urine Glucose (UA) >=1000 mg/dL (Negative) H 04/29/24 17:02 Urine Ketones Trace mg/dL (Negative) 04/29/24 17:02 Urine Blood Negative (Negative) 04/29/24 17:02 Urine Nitrite Negative (Negative) 04/29/24 17:02 Ur Leukocyte Esterase Trace (Negative) H 04/29/24 17:02 Urine RBC 0-2 /HPF (0-2) 04/29/24 17:02 Urine WBC 11-20 /HPF (0-5) H 04/29/24 17:02 Ur Squamous Epith Cells 0-2 /HPF (0-2) 04/29/24 17:02 Urine Bacteria 4+ (None Seen) 04/29/24 17:02 Hyaline Casts 0-2 /LPF (0-2) 04/29/24 17:02 Fl Pathologist Review SEE NOTE 04/29/24 17:02 Pleural WBC 1.024 X10*3/uL 04/29/24 17:02 Pleural RBC 0.022 X10*6/uL 04/29/24 17:02 Pleural Neutrophils 7 % 04/29/24 17:02 Pleural Lymphocytes 55 % 04/29/24 17:02 Pleural Monocytes 4 % 04/29/24 17:02 Pleural Other Cells 34 % 04/29/24 17:02 Influenza Type A (PCR) NEGATIVE (Negative) 04/29/24 07:02 Influenza Type B (PCR) NEGATIVE (Negative) 04/29/24 07:02 RSV RNA Qual (PCR) NEGATIVE (Negative) 04/29/24 07:02 SARS-CoV-2 RNA (RT-PCR) NEGATIVE (Negative) 04/29/24 07:02 - Imaging Radiologist's impression: ITS Impressions Chest X-Ray 04/29/24 08:00 IMPRESSION: Large Dense opacification at left lung probably combination of elevation left hemidiaphragm, pleural effusion, infiltrate and/or atelectasis, would recommend correlation with follow-up CT scan to rule out possible underlying mass. Electronically signed by: Nina Rios MD 04/29/2024 08:[address] 04/29/24 11:37 IMPRESSION: 1. Very large left pleural effusion causing mass effect and mediastinal shift to the right would recommend thoracentesis. 2. Atelectasis of left lower lobe, partial atelectasis left upper lobe, uncertain etiology, cannot rule out underlying central hilar mass which would be difficult to visualize due to lack of contrast. May consider correlation with FOLLOW-UP CT CHEST WITH CONTRAST AFTER THE THORACENTESIS AND LUNG EXPANSION. 3. There is occlusion of the left bronchus to the left lower lobe, uncertain etiology, cannot rule out underlying pathologic process. 4. Mildly enlarged mediastinal lymph nodes. 5. There is 1.2 cm subcutaneous structure in the right axilla could be a sebaceous cyst versus a skin lesion. 6. There is 7 mm nodule upper segment right lower lobe. Electronically signed by: Nina Rios MD 04/29/2024 01:05 PM EDT RP Abdomen/Pelvis CT 04/29/24 11:46 IMPRESSION: Limited noncontrasted study. 1. Large left pleural effusion. 2. There is perinephric fat stranding around the left kidney and in the left gutter uncertain etiology. Cannot rule out underlying infection, inflammation among others.. No kidney stone or hydronephrosis. Evaluation of the kidneys is limited due to lack of contrast. 3. Right inguinal hernia containing fat and loop of bowel without causing obstruction. Electronically signed by: Nina Rios MD 04/29/2024 01:20 PM EDT RP Chest X-Ray 04/29/24 16:08 IMPRESSION: Persistent moderate to large left-sided pleural effusion. Electronically signed by: Jerzy Verduzco MD 04/29/2024 04:30 PM EDT RP Chest X-Ray 04/30/24 07:00 IMPRESSION: Redemonstration of very large left pleural effusion with fluid reaching to the level above the yamil, unchanged from prior exam. Cannot rule out underlying infiltrate and/or atelectasis. Electronically signed by: Nina Rios MD 04/30/2024 10:02 AM EDT RP Chest X-Ray 05/01/24 14:10 IMPRESSION: 1. Interval placement of left chest tube. The sidehole chest tube is within the soft tissues outside of the left hemithorax. 2. Significant interval decrease in left pleural effusion with small left pleural effusion remaining. 3. Trace atelectasis and/or infiltrate at the right lung base. Electronically signed by: Faviola Kaur MD 05/01/2024 04:18 PM EDT RP Chest X-Ray 05/02/24 08:30 IMPRESSION: Redemonstration of left chest tube with sidehole now projecting at or just within the left hemithorax. Correlation with clinical exam recommended. Persistent [id number] left pleural effusion Redemonstration of extensive left basilar consolidation and left pleural effusion. Mild right basilar opacity. This study was presented today May 02, 2024 for interpretation. Stat results provided at this time as requested by referring provider. Electronically signed by: Rachel Joe MD 05/02/2024 09:53 AM EDT RP Assessment and Plan Patient Active problem list reviewed?: Yes (1) Large pleural effusion Status: Acute Assessment and plan: 1. This is a 78-year-old male, nonsmoker presenting with large left pleural effusion, preliminary report identifies malignant cells, carcinoma. Final pathology report shows carcinoma consistent with [id number] lung cancer. Immunohistochemical studies show positivity for CK7, TTF 1, Napsin and MOC31 patchy. Negative for CK20, CD68. CT chest without IV contrast performed 04/29/2024 shows the large left pleural effusion causing mass effect and mediastinal shift to the right, atelectasis of left lower lobe and partial atelectasis of left upper lobe. Can not rule out underlying central hilar mass. Chest CT with IV contrast was recommended. CT abdomen/pelvis showed perinephric fat stranding around left kidney of uncertain etiology. No kidney stone or hydronephrosis. Right inguinal hernia containing fat and loop of bowel without obstruction. Recommend PleurX catheter for malignant pleural effusion. CT chest with contrast performed 05/03/2024 shows small amount of residual fluid in the pleural space. Atelectasis of left upper lobe adjacent to superior mediastinum as well as lingula and left lower lobe. Discrete lung mass not seen. Prominent mediastinal lymph nodes largest measuring 1.1 cm in the left precarinal region. No axillary adenopathy. I discussed above findings with patient and family. Molecular studies on the pathology specimen has been ordered. Further evaluation with PET-CT and brain scan will be performed upon discharge. - Time Spent With Patient Time Spent with Patient (in minutes): 15
--- NOTE | 2024-05-03 13:47 | MHC.CM.PN ---
Addendum entered by Kathie Puentes 05/03/24 14:11: A Pleurex catheter is planned. Original Note: Per MD rounds no discharge today. The plan is to remove the chest tube on Wednesday. The plan is to insert a pleuravac. The preference for home care is [facility]. A referral has been sent. DP Home with [facility] and resumption of [facility] [employer] services. Patients daughter will provide transportation home.
--- NOTE | 2024-05-03 14:06 | MHC.SL.SWA ---
Speech Pathologist Impression: Mild dysphagia Risk of Aspiration Due to: Medically Fragile Dysphasia Diet Status: Recommend upgrade to Chopped/Advanced Solids with Thin Liquids. Meds Whole with Puree. Intermittent supervision. Esophageal issue would be better investigated with a Barium Swallow Study. Liquid Consistency and Strategies for Safe Swallow: Liquid Intake Recommendation: Thin Liquid Intake Strategies: Small Sips Solid Food Consistency: Dietary Recommendations: Chopped/Advanced (NDD3) Additional Modifications to Solid Foods: Recommend start on GROUND/MECH ALTERED (NDD2) solids and NECTAR THICK liquids, pills CRUSHED in PUREE. Patient is able to feed himself without difficulty. FIXTURE BUILDER discussed w/ patient and family strategies recommended for safety: take small bites/sips, one bite/sip at a time, slow pacing between bites/sips, remain upright while eating/drinking and for at least 30 minutes afterwards, avoid the use of straws. 1:1 supervision and close monitoring. Discontinue feeding if patient exhibits any overt s/s of aspiration. Oral Medication Intake: Whole with Puree Please contact the pharmacy regarding appropriate crushable or liquid drug formulations that are available whenever modified delivery is recommended. Compensatory Strategies and Precautions to be Taken for Safe Swallow: Sitting Upright (90 deg) Small Bites and Sips Alternate Liquids/Solids Rate of Ingestion Change Avoid Specific Foods Supervision While Eating and Drinking for Safe Swallow: Total Assistance (1:1) Foods to Avoid: Mixed consistencies Swallowing Recommended Treatments: Compens. Strategy Educat. Recommendation for Speech: Inpatient Speech Therapy Comment: Diet advanced yesterday to NDD3 with thin liquids, pt tolerating upgrade without overt s/s of aspiration. FIXTURE BUILDER provided education on physiological function of swallow, overt s/s of aspiration and safety precautions to implement while family visiting pt. Pt granddaughter availed herself for translation. Recc and information on followup provided to family in Lao/Tamazight version. Pt to pursue FIXTURE BUILDER intervention as indicated upon d/c. Frequency/Duration: PRN M-F Date Range for Service Req: Timeline to reassess: Principal Embedded Software Engineer Clinican/Clinical Fellow: No Supervisory Statement: I have reviewed and agree with the student/clinical fellow's documentation: N/A Speech Language Pathologist: Naty Mendoza M.S., CCC-FIXTURE BUILDER
[2024-05-03 14:35] LABS: Albumin Pleural Fluid 3.1
[2024-05-03 14:37] LABS: Total Protein Pleural Fluid 4.6
[2024-05-03 14:39] LABS: LDH Pleural Fluid 419
[2024-05-03 14:40] LABS: Glucose Pleural Fluid 78
[2024-05-03 14:42] LABS: pH Pleural Fluid 7.5
[2024-05-03 15:28] LABS: Glucose, Whole Blood 178 mg/dL (60-115)
[2024-05-03 20:18] LABS: Glucose, Whole Blood 146 mg/dL (60-115)
[2024-05-03] MEDS: NIFEdipine ER 30 MG TAB.ER.24 PO (21:08)
[2024-05-03] MEDS: Doxazosin Mesylate 2 MG TABLET 4 MG PO (21:08)
[2024-05-04 04:00] VITALS: BP 119/69; PULSE 88; RESP 18; TEMP 36.3; O2SAT 97
[2024-05-04] MEDS: Morphine Sulfate 2 MG/ML CARTRIDGE IVPUSH (04:26)
[2024-05-04] MEDS: Omeprazole 20 MG CAPSULE.DR PO ×2 (04:26→16:12)
[2024-05-04 07:12] LABS: Glucose, Whole Blood 107 mg/dL (60-115)
[2024-05-04 07:50] VITALS: BP 137/66; PULSE 80; RESP 18; TEMP 36.4; O2SAT 99
--- NOTE | 2024-05-04 09:24 | MHC.SHP ---
Pre-Procedural Eval Section A - 24 Hr Update-Section A only Date of Service: 05/05/24 The patient is an INPATIENT: No Changes since office visit: No Cold of Flu in the past 2 weeks, No New Medical Problems, No Changes in Medication and No Patient answered all questions Section B - Complete if H&P > 30 days Chief Complaint: large left pleural effusion Allergies: Allergies Allergy/AdvReac Type Severity Reaction Status Date / Time No Known Allergies Allergy Verified 04/29/24 06:43 [No Known Allergies*] Review of Systems Sugical H&P ROS: Negative: Constitution, Cardiovascular, Respiratory, Neurological, Psychiatric, Hem-Onc, Allergic/Immunologic, Gastrointestinal, Genitourinary, Musculoskeletal, Integumentary, Endocrine and Eyes/Ears/Nose/Throat Exam Surgical H&P Exam: Normal: HEENT, Normal: Heart, Normal: Lungs, Normal: Extremities, Normal: Abdomen, Normal: Skin and Normal: Neurological Plan I have reviewed the history and physical and performed a pertinent physical examination on my patient. No changes have occurred unless specified. Time Spent With Patient Time: Total time managing care of this patient today ____ minutes.
[2024-05-04] MEDS: Lipase/Prot/Amylase 24/76/120K 1 CAP CAPSULE.DR 2 CAP PO ×3 (09:49→20:29)
[2024-05-04] MEDS: Sennosides 8.6 MG TABLET 17.2 MG PO (09:50)
[2024-05-04] MEDS: Atorvastatin Calcium 10 MG TABLET PO (09:50)
[2024-05-04] MEDS: Azithromycin 500 MG in 0.9 % Sodium Chloride 250 ML 125 MG IV (09:50)
[2024-05-04] MEDS: cefTRIAXone sodium 1 GM VIAL IVPUSH (09:50)
[2024-05-04] MEDS: 0.9 % Sodium Chloride Flush 3 ML SYRINGE IVFLUSH ×3 (09:51→20:29)
[2024-05-04] MEDS: polyethylene glycoL 3350 17 GM POWD.PACK PO (10:10)
[2024-05-04 11:14] VITALS: BP 123/62; PULSE 87; RESP 18; TEMP 36.3; O2SAT 98
[2024-05-04 11:15] LABS: Glucose, Whole Blood 138 mg/dL (60-115)
--- NOTE | 2024-05-04 12:48 | HO.PM.IMPN ---
Subjective Subjective Date of Service: 05/04/24 Interval History: f/u on dyspnea d/t left pleural effuson s/p thoracentesis in ED 04/27, chest tube inserted 05/01. Pleural fluid is + for carcinoma doing ok, no acute respiratory issues, O2 sat 98 on room air Physical Exam Vital Signs: Vital Signs: Last Vital Signs Temp 97.3 F 05/04/24 11:14 Pulse 87 05/04/24 11:14 Resp 18 05/04/24 11:14 BP 123/62 05/04/24 11:14 Pulse Ox 98 05/04/24 11:14 O2 Del Method Room Air 05/04/24 11:14 BMI result Body Mass Index 25.8 General: Alert, no in distress, looks frail Resp: diminished on left side, left chest tube in place, bloody fluid CVS: S1,S2,RRR GI: +BS, NT, no distention Skin: No rash Neuro: motor grossly intact Psych: appropriate affect Objective Data Active Medications Acetaminophen (Acetaminophen 325 Mg Tablet) 650 mg PO Q6H PRN PRN Reason: Pain, Mild (Pain Scale 1-3), fever or headache Last Admin: 05/02/24 20:44 Dose: 650 mg Documented By: ARISTIDES Albuterol/Ipratropium (Albuterol/Iprat 2.5/0.5mg 3 Ml Ampul.Neb) 3 ml INHALE RQ4H WHILE AWAKE PRN PRN Reason: sob Last Admin: 04/30/24 18:03 Dose: 3 ml Documented By: JERRY Alprazolam (Alprazolam 0.25 Mg Tablet) 0.125 mg PO ONCE ONE Stop: 05/05/24 08:01 Lipase/Protease/Amylase (Lipase/Prot/Amylase 24/76/120k 1 Cap Capsule.Dr) 2 cap PO TID [facility] Last Admin: 05/04/24 09:49 Dose: 2 cap Documented By: TERE Atorvastatin Calcium (Atorvastatin Calcium 10 Mg Tablet) 10 mg PO DAILY [facility] Last Admin: 05/04/24 09:50 Dose: 10 mg Documented By: TERE Ceftriaxone Sodium (Ceftriaxone Sodium 1 Gm Vial) 1 gm IVPUSH Q24H [facility] Last Admin: 05/04/24 09:50 Dose: 1 gm Documented By: TERE Doxazosin Mesylate (Doxazosin Mesylate 2 Mg Tablet) 4 mg PO BEDTIME [facility] Last Admin: 05/03/24 21:08 Dose: 4 mg Documented By: JOSE RAMON Empagliflozin (Empagliflozin 10 Mg Tablet) 10 mg PO DAILY [facility] Last Admin: 05/04/24 08:43 Dose: Not Given Documented By: TERE Non-Admin Reason: Physician Held Med Glucose (Glucose Gel 15 Gm Gel..Gram.) 15 gm PO Q15M PRN; Protocol PRN Reason: per Hypoglycemia Standing Ord. Glucose (Glucose Gel 15 Gm Gel..Gram.) 15 gm PO Q15M PRN; Protocol PRN Reason: per Hypoglycemia Standing Ord. Dextrose (D10) 250 mls @ 750 mls/hr IV Q15M PRN; Protocol PRN Reason: per Hypoglycemia Standing Ord. Azithromycin 500 mg/ Sodium (Chloride) 250 mls @ 125 mls/hr IV Q24H [facility] Last Infusion: 05/04/24 12:13 Dose: Infused Documented By: TERE Dextrose (D10) 250 mls @ 750 mls/hr IV Q15M PRN; Protocol PRN Reason: per Hypoglycemia Standing Ord. Insulin Human Lispro (Insulin Lispro 100 Unit/Ml 3 Ml Vial) 0 unit SUBCUT Q6H [facility]; Protocol Last Admin: 05/04/24 12:14 Dose: Not Given Documented By: TERE Non-Admin Reason: No Insulin Coverage Morphine Sulfate (Morphine Sulfate 2 Mg/Ml Cartridge) 2 mg IVPUSH Q6H PRN; Protocol PRN Reason: Pain, Severe (Pain Scale 7-10) Last Admin: 05/04/24 04:26 Dose: 2 mg Documented By: JOSE RAMON Nifedipine (Nifedipine Er 30 Mg Tab.Er.24) 30 mg PO BEDTIME [facility] Last Admin: 05/03/24 21:08 Dose: 30 mg Documented By: JOSE RAMON Omeprazole (Omeprazole 20 Mg Capsule.) 20 mg PO BID@0630,1630 [facility] Last Admin: 05/04/24 04:26 Dose: 20 mg Documented By: JOSE RAMON Ondansetron HCl (Ondansetron Hcl 4 Mg/2 Ml Vial) 4 mg IVPUSH Q8H PRN PRN Reason: Nausea and Vomiting Polyethylene Glycol (Polyethylene Glycol 3350 17 Gm Powd.Pack) 17 gm PO DAILY [facility] Last Admin: 05/04/24 10:10 Dose: 17 gm Documented By: TERE Senna (Sennosides 8.6 Mg Tablet) 17.2 mg PO DAILY [facility] Last Admin: 05/04/24 09:50 Dose: 17.2 mg Documented By: TERE Sitagliptin Phosphate (Sitagliptin Phosphate 25 Mg Tablet) 25 mg PO DAILY [facility] Last Admin: 05/04/24 08:44 Dose: Not Given Documented By: TERE Non-Admin Reason: Physician Held Med Sodium Chloride (0.9 % Sodium Chloride Flush 3 Ml Syringe) 3 ml IVFLUSH QSHIFT [facility] Last Admin: 05/04/24 09:51 Dose: 3 ml Documented By: TERE Labs 05/03/24 05:57 05/03/24 05:57 Labs: Laboratory Results - last 24 hr 04/29/24 05/03/24 05/03/24 17:02 15:20 20:12 POC Glucose 178 H 146 H Pleural pH 7.5 Pleural Total Protein 4.6 Pleural Albumin 3.1 Pleural LDH 419 Pleural Glucose 78 05/04/24 05/04/24 07:04 11:08 POC Glucose 107 138 H Pleural pH Pleural Total Protein Pleural Albumin Pleural LDH Pleural Glucose Microbiology Microbiology Results: Microbiology 04/29/24 09:48 Blood Culture - Final Blood - Venous No growth after 5 days. 04/29/24 09:48 Blood Culture - Final Blood - Venous No growth after 5 days. 04/29/24 17:06 Gram Stain - Final Pleural Fluid Routine Culture - Final No growth after 2 days Anaerobic Culture - Preliminary No growth to date. Assessment and Plan (1) Lung mass: Status: Acute (2) Pleural effusion: Status: Acute (3) Pleural hemorrhage: Status: Acute Plan 78/m HTN, HLD, DM, BPH here with SOB and found to have a large Left sided pleural effusion s/p thoracenesis in the ED Left pleural effusion s/p thoracentesis in the ED. Prelim result is malignancy -Empric Ceftriaxone and Azithro -Pulmonology and thoracic surgery following -s/p thoracentesis on 04/30, and chest tube on 05/01 -for PleurX cath placement 05/05 -CT of chest with contrast 05/03, no discrete mass but prominent lymph nodes -oncology following HypOnatremia--chronic and stable. 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 - continue Nifedipine. Losartan has been on hold Hypercholesteremia -Atorvastatin has been continued. Can-smefvgy-lcvqrelrc diabetes mellitus -on Januvia, Farxiga and Metformin. Hold metformin -SSI, diabetic diet, POC chec Pancreatic insufficiency -Continue Creon. Anemia of chronic disease--stable GERD -Omeprazole BPH -Denies urinary complaints. Terazosin and tamsulosin continue. Full code DVT prophylaxis: device,d/t bloody P. effusion Quality Stroke Does the patient have a stroke diagnosis?: No VTE Prior VTE?: No VTE Risk Level:: Medical - moderate - high VTE Device Contraindication: N/A - Device Ordered VTE Drug Contraindication: Treatment Not Indicated (May need repeat thoracentesis)
[2024-05-04 13:55] VITALS: BP 127/65; PULSE 89; RESP 18; TEMP 36.9; O2SAT 97
[2024-05-04 15:19] VITALS: BP 142/70; PULSE 88; RESP 18; TEMP 37; O2SAT 98
[2024-05-04 17:15] LABS: Glucose, Whole Blood 151 mg/dL (60-115)
--- NOTE | 2024-05-04 17:22 | MHC.SLORD ---
Speech Language Pathology Order Status: Attempted to see patient at lunch multiple times today, however lunch did not arrive due to plan for patient to be moved to a different floor/room. Nursing was advised to order patient a lunch upon move to [facility]. Patient reported to this pattern chart writer that he is eating well and enjoying his food. CRIB ATTENDANT will continue to follow, however plan for 05/05 in NPO for procedure.
[2024-05-04] MEDS: Insulin Lispro 100 UNIT/ML 3 ML VIAL SUBCUT (17:36)
[2024-05-04 20:00] VITALS: BP 158/78; PULSE 84; RESP 16; TEMP 37.3; O2SAT 98
[2024-05-04] MEDS: NIFEdipine ER 30 MG TAB.ER.24 PO (20:28)
[2024-05-04] MEDS: Doxazosin Mesylate 2 MG TABLET 4 MG PO (20:28)
[2024-05-04 23:50] LABS: Glucose, Whole Blood 116 mg/dL (60-115)
[2024-05-05] VITALS (10 sets, daily range): BP systolic 104–134; BP diastolic 49–70; PULSE 77–98; RESP 14–20; TEMP 36.2–37.2; O2SAT 96–98
[2024-05-05 05:50] LABS: Hematocrit 36.3 % (42.0-52.0); Hemoglobin 12.3 g/dl (14.0-18.0); Mean Corpuscular HGB Conc 33.9 g/dl (31.0-36.0); Mean Corpuscular Hemoglobin 26.8 pg (27.0-33.0); Mean Corpuscular Volume 79.1 fL (80.0-98.0); Mean Platelet Volume 7.9 fL (9.4-12.4); Platelet Count 459 X10*3/uL (160-400); Red Blood Count 4.59 X10*6/uL (4.60-5.80); Red Cell Distribution Width 15.2 % (11.0-16.0); White Blood Count 11.7 X10*3/uL (4.8-10.8)
[2024-05-05 05:50] LABS: Glucose, Whole Blood 119 mg/dL (60-115)
[2024-05-05 06:07] LABS: Anion Gap 11 (12-20); Blood Urea Nitrogen 10 mg/dL (9-16); Calcium 8.6 mg/dL (8.4-10.2); Carbon Dioxide 23 mmol/L (22-29); Chloride 100 mmol/L (96-108); Creatinine Clr Calc Pharmacy 88.4; Estimated Glomerular Filt Rate > 60; Glucose Random 103 mg/dL (60-115); Magnesium 1.5 mg/dL (1.6-2.6); Sodium 130 mmol/L (135-145)
--- NOTE | 2024-05-05 07:16 | HO.STUDENTPN ---
Subjective Subjective Date of Service: 05/05/24 <Lucinda mad - Last Filed: 05/05/24 08:43> 05/05/24 <Vanessa Loza PA-C - Last Filed: 05/05/24 14:22> 05/05/24 <Memo Lainez MD - Last Filed: 05/05/24 14:23> Interval History: Pt reports that he had a good night sleep, his coughing episdoes have decreased but continues to have productive cough with yellow phlegm. Pt also reports nasal congestion with post nasal drip. SOB when coughing. Pt is having 8/10 pain near chest tube site. He has some fatigue due to this discomfort. Pt is currently not ambulating he reports he is scared to fall down as he feels weekness in his legs. He reports using a wheelchair with assistance in order to go to the bathroom for BMs. Pt had one 1 BM yesterday, no diarrhea or constipation. Pt has a pad in order to assist with urinating. Pt reports that he has large volume of urine and has to retain in order to prevent pad from overflowing. No burning with urination. <Lucinda mad - Last Filed: 05/05/24 08:43> Constitutional no fever, no chills, fatigue (per HPI) <Lucinda Ahmad - Last Filed: 05/05/24 08:43> Cardiovascular no palpitatoins <Lucinda Ahmad - Last Filed: 05/05/24 08:43> Respiratory see HPI <Lucinda mad - Last Filed: 05/05/24 08:43> Gastrointestinal no N/V <Lucinda Ahmad - Last Filed: 05/05/24 08:43> Genitourinary per HPI <Lucinda Ahmad - Last Filed: 05/05/24 08:43> Neurologic tingling and numbness on BL ankles <Lucinda Ahmad - Last Filed: 05/05/24 08:43> Endocrine no sweating <Lucinda Ahmad - Last Filed: 05/05/24 08:43> Physical Exam Vital Signs: Vital Signs: Last Vital Signs Temp 98.1 F 05/05/24 03:32 Pulse 92 05/05/24 03:32 Resp 16 05/05/24 03:32 BP 110/59 L 05/05/24 03:32 Pulse Ox 97 05/05/24 03:32 O2 Del Method Room Air 05/05/24 03:32 BMI result Body Mass Index 25.8 <[facility] - Last Filed: 05/05/24 08:43> Const: Other: pt was closing eyes throughout the exam in order ot rest, answered all questions and was alert and oriented x 3 <[facility] - Last Filed: 05/05/24 08:43> Chest: Other: chest tube intact with serosanguineous fluid, dressing over chest tube, small airway leak. <[facility] - Last Filed: 05/05/24 08:43> Resp: Other: decreased breath sounds left lower lung field, Normal WOB <[facility] - Last Filed: 05/05/24 08:43> GI: Other: abdomen soft nontender <[facility] - Last Filed: 05/05/24 08:43> Objective Data Active Medications Acetaminophen (Acetaminophen 325 Mg Tablet) 650 mg PO Q6H PRN PRN Reason: Pain, Mild (Pain Scale 1-3), fever or headache Last Admin: 05/02/24 20:44 Dose: 650 mg Documented By: ARISTIDES Albuterol/Ipratropium (Albuterol/Iprat 2.5/0.5mg 3 Ml Ampul.Neb) 3 ml INHALE RQ4H WHILE AWAKE PRN PRN Reason: sob Last Admin: 04/30/24 18:03 Dose: 3 ml Documented By: JERRY Alprazolam (Alprazolam 0.25 Mg Tablet) 0.125 mg PO ONCE ONE Stop: 05/05/24 08:01 Lipase/Protease/Amylase (Lipase/Prot/Amylase 24/76/120k 1 Cap Capsule.Dr) 2 cap PO TID [facility] Last Admin: 05/04/24 20:29 Dose: 2 cap Documented By: BENITO Atorvastatin Calcium (Atorvastatin Calcium 10 Mg Tablet) 10 mg PO DAILY [facility] Last Admin: 05/04/24 09:50 Dose: 10 mg Documented By: TERE Ceftriaxone Sodium (Ceftriaxone Sodium 1 Gm Vial) 1 gm IVPUSH Q24H [facility] Last Admin: 05/04/24 09:50 Dose: 1 gm Documented By: TERE Doxazosin Mesylate (Doxazosin Mesylate 2 Mg Tablet) 4 mg PO BEDTIME [facility] Last Admin: 05/04/24 20:28 Dose: 4 mg Documented By: BENITO Empagliflozin (Empagliflozin 10 Mg Tablet) 10 mg PO DAILY [facility] Last Admin: 05/04/24 08:43 Dose: Not Given Documented By: TERE Non-Admin Reason: Physician Held Med Glucose (Glucose Gel 15 Gm Gel..Gram.) 15 gm PO Q15M PRN; Protocol PRN Reason: per Hypoglycemia Standing Ord. Glucose (Glucose Gel 15 Gm Gel..Gram.) 15 gm PO Q15M PRN; Protocol PRN Reason: per Hypoglycemia Standing Ord. Dextrose (D10) 250 mls @ 750 mls/hr IV Q15M PRN; Protocol PRN Reason: per Hypoglycemia Standing Ord. Azithromycin 500 mg/ Sodium (Chloride) 250 mls @ 125 mls/hr IV Q24H [facility] Last Infusion: 05/04/24 12:13 Dose: Infused Documented By: TERE Dextrose (D10) 250 mls @ 750 mls/hr IV Q15M PRN; Protocol PRN Reason: per Hypoglycemia Standing Ord. Insulin Human Lispro (Insulin Lispro 100 Unit/Ml 3 Ml Vial) 0 unit SUBCUT Q6H [facility]; Protocol Last Admin: 05/05/24 05:53 Dose: Not Given Documented By: BENITO Non-Admin Reason: No Insulin Coverage Morphine Sulfate (Morphine Sulfate 2 Mg/Ml Cartridge) 2 mg IVPUSH Q6H PRN; Protocol PRN Reason: Pain, Severe (Pain Scale 7-10) Last Admin: 05/04/24 04:26 Dose: 2 mg Documented By: JOSE RAMON Nifedipine (Nifedipine Er 30 Mg Tab.Er.24) 30 mg PO BEDTIME [facility] Last Admin: 05/04/24 20:28 Dose: 30 mg Documented By: BENITO Omeprazole (Omeprazole 20 Mg Capsule.Dr) 20 mg PO BID@0630,1630 [facility] Last Admin: 05/05/24 05:53 Dose: Not Given Documented By: BENITO Non-Admin Reason: NPO Ondansetron HCl (Ondansetron Hcl 4 Mg/2 Ml Vial) 4 mg IVPUSH Q8H PRN PRN Reason: Nausea and Vomiting Polyethylene Glycol (Polyethylene Glycol 3350 17 Gm Powd.Pack) 17 gm PO DAILY [facility] Last Admin: 05/04/24 10:10 Dose: 17 gm Documented By: TERE Senna (Sennosides 8.6 Mg Tablet) 17.2 mg PO DAILY [facility] Last Admin: 05/04/24 09:50 Dose: 17.2 mg Documented By: TERE Sitagliptin Phosphate (Sitagliptin Phosphate 25 Mg Tablet) 25 mg PO DAILY [facility] Last Admin: 05/04/24 08:44 Dose: Not Given Documented By: TERE Non-Admin Reason: Physician Held Med Sodium Chloride (0.9 % Sodium Chloride Flush 3 Ml Syringe) 3 ml IVFLUSH QSHIFT [facility] Last Admin: 05/04/24 20:29 Dose: 3 ml Documented By: BENITO <Lucinda mad - Last Filed: 05/05/24 08:43> Labs CBC & Chem 7: 05/05/24 05:36 05/05/24 05:36 <Lucinda Ahmad - Last Filed: 05/05/24 08:43> Labs: Laboratory Results - last 24 hr 05/04/24 05/04/24 05/04/24 11:08 17:10 23:45 MCV MCH MCHC RDW Plt Count MPV Absolute Nucleated RBC Nucleated RBC % (auto) Anion Gap Estim Creat Clear Calc Estimated GFR POC Glucose 138 H 151 H 116 H Random Glucose Calcium Magnesium 05/05/24 05/05/24 05:36 05:47 MCV 79.1 L MCH 26.8 L MCHC 33.9 RDW 15.2 Plt Count 459 H MPV 7.9 L Absolute Nucleated RBC 0.000 Nucleated RBC % (auto) 0.0 Anion Gap 11 L Estim Creat Clear Calc 88.4 Estimated GFR > 60 POC Glucose 119 H Random Glucose 103 Calcium 8.6 Magnesium 1.5 L <Lucinda Ahmad - Last Filed: 05/05/24 08:43> Microbiology Microbiology Results: Microbiology 04/29/24 09:48 Blood Culture - Final Blood - Venous No growth after 5 days. 04/29/24 09:48 Blood Culture - Final Blood - Venous No growth after 5 days. 04/29/24 17:06 Gram Stain - Final Pleural Fluid Routine Culture - Final No growth after 2 days Anaerobic Culture - Preliminary No growth to date. <[facility] - Last Filed: 05/05/24 08:43> Assessment and Plan (1) Pleural effusion: Status: Acute <[facility] - Last Filed: 05/05/24 08:43> Assessment and Plan: 78 year old male presented to the ED 7 days ago with chief complain of SOB, chest tightness and congestion. Left thoracocenteiss was performed in the ED(04/27). Abdomen pelvis CT w/IV contrast on 04/29 showed impression of large left pleural effusion. Chest tube was placed on 05/01. Chest X-ray yesterday (05/02) showed ?Redemonstration of left chest tube with sidehole now projecting at or? just within the left hemithorax. Correlation with clinical exam? recommended.Persistent [id number] left pleural effusion Redemonstration of?extensive left basilar consolidation and left pleural effusion. Mild?right basilar opacity.? Body fluid path results were released on 05/02 ?Positive for malignant cells, favor carcinoma.? Pt is repiratory stable. Pt is still having productive cough with yellow phlegm, with small airway leak. Plan to place PleurX catheter today. Monitor for post-op complications such as pneumothorax, subcutaneous emphysema, bleeding, or overlying skin infection. Plan to educate patient on how to manage catheter and drainage. Follow up outpatient. <[facility] - Last Filed: 05/05/24 08:43> 78 year old male presented to the ED 7 days ago with chief complain of SOB, chest tightness and congestion. Left thoracocenteiss was performed in the ED(04/27). Abdomen pelvis CT w/IV contrast on 04/29 showed impression of large left pleural effusion. Chest tube was placed on 05/01. Pleural path results 05/02 positive for malignant cells. Pt is respiratory stable. Plan to place PleurX catheter today. Can drain as needed inpatient for shortness of breath. Home with [facility] when medically stable. <Vanessa Loza PA-C - Last Filed: 05/05/24 14:22> Assessment and Plan: <[facility] - Last Filed: 05/05/24 08:43> Quality Stroke Does the patient have a stroke diagnosis?: No <Lucinda Ahmad - Last Filed: 05/05/24 08:43> VTE Prior VTE?: No <Lucinda Ahmad - Last Filed: 05/05/24 08:43> VTE Risk Level:: Medical - moderate - high <Lucinda Ahmad - Last Filed: 05/05/24 08:43> VTE Device Contraindication: N/A - Device Ordered <Lucinda Ahmad - Last Filed: 05/05/24 08:43> VTE Drug Contraindication: Treatment Not Indicated (May need repeat thoracentesis) <Lucinda Ahmad - Last Filed: 05/05/24 08:43>
[2024-05-05] MEDS: ALPRAZolam 0.25 MG TABLET 0.125 MG PO (07:29)
[2024-05-05 07:49] LABS: Glucose, Whole Blood 96 mg/dL (60-115)
--- NOTE | 2024-05-05 08:10 | PC.NURSE ---
Dr. Lainez updated that chest tube is malfunctioning. Patient is asymptomatic. 98 %RA. Doctor stated to leave chest tube the way it is right now as patient is going into OR. Lungs clear, slight crackles in right bases. Stronger crackles in left base. Will continue to monitor until doctor arrives. no coughing noted.
--- NOTE | 2024-05-05 08:56 | MHC.SLORD ---
Speech Language Pathology Order Status: No PO trials given this date as patient is NPO for a procedure. Once medically cleared to resume PO, ELEMENTARY SCHOOL PROFESSIONAL recommended choppped diet (NDD3) with thin liquids with aspiration precautions. ELEMENTARY SCHOOL PROFESSIONAL will continue to follow.
[2024-05-05 10:44] LABS: Glucose, Whole Blood 93 mg/dL (60-115)
[2024-05-05] MEDS: cefTRIAXone sodium 1 GM VIAL IVPUSH (11:19)
[2024-05-05] MEDS: Azithromycin 500 MG in 0.9 % Sodium Chloride 250 ML 125 MG IV (11:23)
[2024-05-05 11:27] LABS: Glucose, Whole Blood 89 mg/dL (60-115)
--- NOTE | 2024-05-05 11:39 | MHC.CM.PN ---
PER MD ROUNDS, PT WILL NOT BE READY TO DC TODAY DCP REMAINS HOME WITH [facility] PT WILL NEED DRAIN SUPPLIES SENT HOME WITH HIM FAMILY TO TRANSPORT
--- NOTE | 2024-05-05 14:08 | HO.PM.IMPN ---
Subjective Subjective Date of Service: 05/05/24 Interval History: No acute issues overnight. 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 PleurX catheter site clean dry and intact Cardio: Other: No S4; positive S1-S2; no S3 murmurs rubs or gallops GI: Other: Soft nontender nondistended normoactive bowel sounds Extrem: Other: No edema bilaterally Objective Data Active Medications Acetaminophen (Acetaminophen 325 Mg Tablet) 650 mg PO Q6H PRN PRN Reason: Pain, Mild (Pain Scale 1-3), fever or headache Last Admin: 05/02/24 20:44 Dose: 650 mg Documented By: ARISTIDES Albuterol/Ipratropium (Albuterol/Iprat 2.5/0.5mg 3 Ml Ampul.Neb) 3 ml INHALE RQ4H WHILE AWAKE PRN PRN Reason: sob Last Admin: 04/30/24 18:03 Dose: 3 ml Documented By: JERRY Lipase/Protease/Amylase (Lipase/Prot/Amylase 24/76/120k 1 Cap Capsule.Dr) 2 cap PO TID [facility] Last Admin: 05/05/24 08:05 Dose: Not Given Documented By: VIPUL Non-Admin Reason: Off Unit: Surgery Atorvastatin Calcium (Atorvastatin Calcium 10 Mg Tablet) 10 mg PO DAILY [facility] Last Admin: 05/05/24 08:04 Dose: Not Given Documented By: VIPUL Non-Admin Reason: Off Unit: Surgery Ceftriaxone Sodium (Ceftriaxone Sodium 1 Gm Vial) 1 gm IVPUSH Q24H [facility] Last Admin: 05/05/24 11:19 Dose: 1 gm Documented By: ALVINO Doxazosin Mesylate (Doxazosin Mesylate 2 Mg Tablet) 4 mg PO BEDTIME [facility] Last Admin: 05/04/24 20:28 Dose: 4 mg Documented By: BENITO Empagliflozin (Empagliflozin 10 Mg Tablet) 10 mg PO DAILY [facility] Last Admin: 05/05/24 08:05 Dose: Not Given Documented By: VIPUL Non-Admin Reason: Physician Held Med Glucose (Glucose Gel 15 Gm Gel..Gram.) 15 gm PO Q15M PRN; Protocol PRN Reason: per Hypoglycemia Standing Ord. Glucose (Glucose Gel 15 Gm Gel..Gram.) 15 gm PO Q15M PRN; Protocol PRN Reason: per Hypoglycemia Standing Ord. Dextrose (D10) 250 mls @ 750 mls/hr IV Q15M PRN; Protocol PRN Reason: per Hypoglycemia Standing Ord. Azithromycin 500 mg/ Sodium (Chloride) 250 mls @ 125 mls/hr IV Q24H [facility] Last Infusion: 05/05/24 13:54 Dose: Infused Documented By: ALVINO Dextrose (D10) 250 mls @ 750 mls/hr IV Q15M PRN; Protocol PRN Reason: per Hypoglycemia Standing Ord. Insulin Human Lispro (Insulin Lispro 100 Unit/Ml 3 Ml Vial) 0 unit SUBCUT Q6H [facility]; Protocol Last Admin: 05/05/24 13:10 Dose: Not Given Documented By: ALVINO Non-Admin Reason: No Insulin Coverage Morphine Sulfate (Morphine Sulfate 2 Mg/Ml Cartridge) 2 mg IVPUSH Q6H PRN; Protocol PRN Reason: Pain, Severe (Pain Scale 7-10) Last Admin: 05/04/24 04:26 Dose: 2 mg Documented By: JOSE RAMON Nifedipine (Nifedipine Er 30 Mg Tab.Er.24) 30 mg PO BEDTIME [facility] Last Admin: 05/04/24 20:28 Dose: 30 mg Documented By: BENITO Omeprazole (Omeprazole 20 Mg Capsule.) 20 mg PO BID@0630,1630 [facility] Last Admin: 05/05/24 05:53 Dose: Not Given Documented By: BENITO Non-Admin Reason: NPO Ondansetron HCl (Ondansetron Hcl 4 Mg/2 Ml Vial) 4 mg IVPUSH Q8H PRN PRN Reason: Nausea and Vomiting Oxycodone HCl (Oxycodone Hcl Immed Release 5 Mg Tablet) 5 mg PO Q4H PRN PRN Reason: Pain, Moderate(Pain Scale 4-6) Polyethylene Glycol (Polyethylene Glycol 3350 17 Gm Powd.Pack) 17 gm PO DAILY [facility] Last Admin: 05/05/24 08:05 Dose: Not Given Documented By: VIPUL Non-Admin Reason: Off Unit: Surgery Senna (Sennosides 8.6 Mg Tablet) 17.2 mg PO DAILY [facility] Last Admin: 05/05/24 08:05 Dose: Not Given Documented By: VIPUL Non-Admin Reason: Off Unit: Surgery Sitagliptin Phosphate (Sitagliptin Phosphate 25 Mg Tablet) 25 mg PO DAILY [facility] Last Admin: 05/05/24 08:05 Dose: Not Given Documented By: VIPUL Non-Admin Reason: Physician Held Med Sodium Chloride (0.9 % Sodium Chloride Flush 3 Ml Syringe) 3 ml IVFLUSH QSHIFT [facility] Last Admin: 05/05/24 09:33 Dose: Not Given Documented By: ALVINO Non-Admin Reason: Off Unit: Surgery Labs 05/05/24 05:36 05/05/24 05:36 Labs: Laboratory Results - last 24 hr 05/04/24 05/04/24 05/05/24 17:10 23:45 05:36 MCV 79.1 L MCH 26.8 L MCHC 33.9 RDW 15.2 Plt Count 459 H MPV 7.9 L Absolute Nucleated RBC 0.000 Nucleated RBC % (auto) 0.0 Anion Gap 11 L Estim Creat Clear Calc 88.4 Estimated GFR > 60 POC Glucose 151 H 116 H Random Glucose 103 Calcium 8.6 Magnesium 1.5 L 05/05/24 05/05/24 05/05/24 05:47 07:45 10:41 MCV MCH MCHC RDW Plt Count MPV Absolute Nucleated RBC Nucleated RBC % (auto) Anion Gap Estim Creat Clear Calc Estimated GFR POC Glucose 119 H 96 93 Random Glucose Calcium Magnesium 05/05/24 11:20 MCV MCH MCHC RDW Plt Count MPV Absolute Nucleated RBC Nucleated RBC % (auto) Anion Gap Estim Creat Clear Calc Estimated GFR POC Glucose 89 Random Glucose Calcium Magnesium Microbiology Microbiology Results: Microbiology 04/29/24 17:06 Gram Stain - Final Pleural Fluid Routine Culture - Final No growth after 2 days Anaerobic Culture - Final NO GROWTH AFTER 5 DAYS 04/29/24 09:48 Blood Culture - Final Blood - Venous No growth after 5 days. 04/29/24 09:48 Blood Culture - Final Blood - Venous No growth after 5 days. Assessment and Plan (1) Pleural effusion: Status: Acute (2) Diabetes: Status: Acute Plan 78/m HTN, HLD, DM, BPH here with SOB and found to have a large Left sided pleural effusion s/p thoracenesis in the ED 1.Left pleural effusion s/p PleurX tube placement today -Ceftriaxone/Azithro(6) -s/p thoracentesis on 04/30, and chest tube on 05/01 -outpatient oncology follow up 2.HypOnatremia -acute on chronic -at baseline 3.Hypertension -acceptable control on current therapies -resume outpatient therapies when appropriate 4.Vre-cvusidt-libzrnico diabetes mellitus -acceptable control on current therapies -lispro correctional scale -add back metformin in a.m. 5.Pancreatic insufficiency -Continue Creon. Full code device,d/t bloody P. effusion Quality Stroke Does the patient have a stroke diagnosis?: No VTE Prior VTE?: No VTE Risk Level:: Medical - moderate - high VTE Device Contraindication: N/A - Device Ordered VTE Drug Contraindication: Treatment Not Indicated (May need repeat thoracentesis)
[2024-05-05] MEDS: Lipase/Prot/Amylase 24/76/120K 1 CAP CAPSULE.DR 2 CAP PO ×2 (14:45→21:00)
[2024-05-05 16:19] LABS: Glucose, Whole Blood 154 mg/dL (60-115)
[2024-05-05] MEDS: Insulin Lispro 100 UNIT/ML 3 ML VIAL SUBCUT (17:33)
[2024-05-05] MEDS: Throat Lozenge, Medicated LOZENGE 1 LOZENGE MUCOUS MEM (17:33)
[2024-05-05] MEDS: Omeprazole 20 MG CAPSULE.DR PO (17:33)
[2024-05-05] MEDS: 0.9 % Sodium Chloride Flush 3 ML SYRINGE IVFLUSH ×2 (17:34→21:13)
--- NOTE | 2024-05-05 19:03 | PC.NURSE ---
Drainage noted from pleurx cath site. Changed dressing @ 1845. no new drainage from site after removal. hooked drainage up to drainage system w no output. replaced w clean dressing. Notifed school commissioner gen surg rambisoon, and hospitalist reginald.
[2024-05-05 19:57] LABS: Glucose, Whole Blood 265 mg/dL (60-115)
[2024-05-05] MEDS: Doxazosin Mesylate 2 MG TABLET 4 MG PO (20:59)
[2024-05-05] MEDS: NIFEdipine ER 30 MG TAB.ER.24 PO (21:00)
[2024-05-05] MEDS: Morphine Sulfate 2 MG/ML CARTRIDGE IVPUSH (21:10)
[2024-05-05 23:20] LABS: Glucose, Whole Blood 143 mg/dL (60-115)
[2024-05-06 03:14] VITALS: BP 113/60; PULSE 86; RESP 14; TEMP 37.1; O2SAT 96
[2024-05-06] MEDS: Omeprazole 20 MG CAPSULE.DR PO (05:46)
[2024-05-06 06:16] LABS: MANUAL DIFF FLAG NO
[2024-05-06 06:25] LABS: Basophils Absolute Auto 0.1 X10*3/uL (0.0-0.2); Basophils Percent Auto 0.5 % (0-2); Eosinophils Absolute Auto 0.4 X10*3/uL (0.0-0.4); Eosinophils Percent Auto 3.7 % (0-4); Hematocrit 34.6 % (42.0-52.0); Hemoglobin 11.5 g/dl (14.0-18.0); Imm Gran Abs Auto 0.16 X10*3/uL (0.00-0.03); Imm Gran Pct Auto 1.3 % (0.0-0.4); Lymphocytes Absolute Auto 0.9 X10*3/uL (1.2-4.9); Lymphocytes Percent Auto 7.8 % (20-40); Mean Corpuscular HGB Conc 33.2 g/dl (31.0-36.0); Mean Corpuscular Hemoglobin 26.6 pg (27.0-33.0); Mean Corpuscular Volume 79.9 fL (80.0-98.0); Mean Platelet Volume 8.1 fL (9.4-12.4); Monocytes Absolute Auto 0.8 X10*3/uL (0.1-1.2); Monocytes Percent Auto 6.7 % (2-11); Neutrophils Absolute Auto 9.6 x10*3/uL (2.0-8.3); Platelet Count 444 X10*3/uL (160-400); Red Blood Count 4.33 X10*6/uL (4.60-5.80)
[2024-05-06 06:39] LABS: Alanine Aminotransferase 21 U/L (0-40); Albumin Level 2.8 g/dL (3.5-5.0); Alkaline Phosphatase 86 U/L (39-117); Anion Gap 10 (12-20); Aspartate Amino Transferase 13 U/L (5-37); Bilirubin Total 0.5 mg/dL (0.0-1.0); Blood Urea Nitrogen 12 mg/dL (9-16); Carbon Dioxide 27 mmol/L (22-29); Chloride 95 mmol/L (96-108); Creatinine Clr Calc Pharmacy 80.9; Estimated Glomerular Filt Rate > 60; Glucose Fasting 140 mg/dL (60-99); Potassium 3.9 mmol/L (3.3-5.1); Sodium 128 mmol/L (135-145); Total Protein 5.4 g/dL (6.5-8.0)
[2024-05-06 07:35] VITALS: BP 125/60; PULSE 96; RESP 18; TEMP 37.1; O2SAT 96
[2024-05-06 07:45] LABS: Glucose, Whole Blood 175 mg/dL (60-115)
[2024-05-06] MEDS: Insulin Lispro 100 UNIT/ML 3 ML VIAL SUBCUT ×2 (08:48→12:00)
[2024-05-06] MEDS: Atorvastatin Calcium 10 MG TABLET PO (08:51)
[2024-05-06] MEDS: Sennosides 8.6 MG TABLET 17.2 MG PO (08:51)
[2024-05-06] MEDS: Empagliflozin 10 MG TABLET PO (08:51)
[2024-05-06] MEDS: SITagliptin Phosphate 25 MG TABLET PO (08:51)
[2024-05-06] MEDS: Lipase/Prot/Amylase 24/76/120K 1 CAP CAPSULE.DR 2 CAP PO (08:52)
[2024-05-06] MEDS: polyethylene glycoL 3350 17 GM POWD.PACK PO (08:58)
[2024-05-06] MEDS: cefTRIAXone sodium 1 GM VIAL IVPUSH (09:01)
[2024-05-06] MEDS: Azithromycin 500 MG in 0.9 % Sodium Chloride 250 ML 125 MG IV (09:04)
[2024-05-06] MEDS: 0.9 % Sodium Chloride Flush 3 ML SYRINGE IVFLUSH (09:21)
[2024-05-06 11:22] LABS: Glucose, Whole Blood 236 mg/dL (60-115)
--- NOTE | 2024-05-06 11:28 | PM.DS ---
DS: Providers Provider Date of Service: 05/06/24 Date of admission: 04/29/24 16:14 Date of discharge: 05/06/24 Primary care physician: ROB Brewer Consults: 04/29/24 16:14 Consult to Thoracic Surgery Routine Consulting Provider: Memo Lainez Reason for consultation: Large Left pleural effusion Has provider been notified: Yes 04/29/24 21:38 Consult to Pulmonology Routine Consulting Provider: [facility] Pulmonology Services Reason for consultation: Pleural effusion and possible underlying mass 05/02/24 11:35 Consult to Wound Care Routine Reason for consultation: pressure/shear injury to coccyx 05/02/24 12:31 Consult to Hematology / Oncology Routine Consulting Provider: [facility] Oncology/Hematology Reason for consultation: malignant pleural effusion Has provider been notified: Yes DS: Diagnosis Discharge Diagnosis (1) Large pleural effusion: Status: Acute (2) Exocrine pancreatic insufficiency: Status: Acute (3) Non-small cell carcinoma of lung: Status: Acute DS: Summary Hospital Course Hospital Course: 78-year-old [place]an-speaking only male with a past medical history significant for zak-qoepdaf-lstwfnusg diabetes, anemia, hypertension, hyperlipidemia, BPH who presents to the emergency department today for evaluation of shortness of breath, wheezing and a productive cough ongoing for the past week. Patient's grandson is present at bedside interpreting [place] per patient request. Patient is seen status post bedside thoracentesis and is currently reporting ?feeling better, I do not have pain and I am not as short of breath?. Patient denies ever needing a thoracentesis before and also denies any history of heart failure. Chest x-ray:Large Dense opacification at left lung probably combination of elevation left hemidiaphragm, pleural effusion, infiltrate and/or atelectasis, would recommend correlation with follow-up CT scan to rule out possible underlying mass. CT chest without:Multidetector volumetric CT imaging of the chest was done. Axial MIP volume rendering provided. Sagittal and coronal reformatted images were obtained. CT abdomen and pelvis without:1. Large left pleural effusion. 2. There is perinephric fat stranding around the left kidney and in the left gutter uncertain etiology. Cannot rule out underlying infection, inflammation among others.. No kidney stone or hydronephrosis. Evaluation of the kidneys is limited due to lack of contrast. 3. Right inguinal hernia containing fat and loop of bowel without causing obstruction. Initial laboratory results: H/H 11.1/31.8, platelets 386, PT/INR 2.6-1.2, Na 130, carbon dioxide 20, magnesium 1.3, influenza a/B, RSV and [id number]-4 negative. In the emergency department and pelvis performed and the patient received 2.5 mg inhaled albuterol sulfate, 2 g magnesium sulfate IV, 100 mg p.o. Tessalon Perles, 1 g ceftriaxone, 500 mg IV azithromycin. Hospital course Admitted to general medical floor; on 05/01 24 seen by vascular surgery who placed a left chest tube without incident. On 05/05/2020 for PleurX tube placed without incident. Pathology finalized; non small cell carcinoma of lung. Immediate postprocedure. Patient did excellent. His pain was minimal. At this point in time he will be discharged home with VNA follow up. As per recommendation they will attempt drainage on the tube 3 times a week to start and will check him with vascular surgery. Also had been recommended to record output and transmit to vascular surgery. The patient will be followed up by vascular surgery in the office and his PCP next available Time Attestation Discharge Coordination Time (in mins): 35 Quality: Safe Use of Opioids Does Pt have an Active Cancer Diagnosis on the Problem List?: Yes Opioid Measure Date for [facility] Report: 04/06/24 Opioid Measure Time for [facility] Report: 11:34 Quality: Stroke Does the patient have a stroke diagnosis?: No Physical Exam Vital Signs: Vital Signs: Last Vital Signs Temp 98.8 F 05/06/24 07:35 Pulse 96 05/06/24 07:35 Resp 18 05/06/24 07:35 BP 125/60 05/06/24 07:35 Pulse Ox 96 05/06/24 07:35 O2 Del Method Room Air 05/06/24 07:35 BMI result Body Mass Index 25.8 Const: Other: Awake alert oriented x3 no acute distress Resp: Other: Clear to auscultation bilaterally diminished at left base. PleurX catheter site clean dry and intact Cardio: Other: No S4; positive S1-S2; no S3 murmurs rubs or gallops GI: Other: Soft nontender nondistended normoactive bowel sounds Extrem: Other: No edema bilaterally DS: Data Data Completed and Pending Completed studies during hospitalization [Text1]: Pending at discharge 04/29/24 16:13 Cytology [PTH] Routine 05/01/24 14:53 Cytology [PTH] Routine Pending studies at discharge: Pending at discharge 05/05/24 09:43 Cytology [PTH] Stat Labs on day of discharge: Laboratory Results - last 24 hr 05/05/24 05/05/24 05/05/24 11:20 16:11 19:31 WBC RBC Hgb Hct MCV MCH MCHC RDW Plt Count MPV Immature Gran % (Auto) Neut % (Auto) Lymph % (Auto) Pike % (Auto) Eos % (Auto) Baso % (Auto) Lymph # (Auto) Pike # (Auto) Eos # (Auto) Baso # (Auto) Abs Immat Gran (auto) Absolute Neuts (auto) Absolute Nucleated RBC Nucleated RBC % (auto) Sodium Potassium Chloride Carbon Dioxide Anion Gap BUN Creatinine Estim Creat Clear Calc Estimated GFR POC Glucose 89 154 H 265 H Fasting Glucose Calcium Total Bilirubin AST ALT Alkaline Phosphatase Total Protein Albumin 05/05/24 05/06/24 05/06/24 23:11 05:59 07:41 WBC 12.0 H RBC 4.33 L Hgb 11.5 L Hct 34.6 L MCV 79.9 L MCH 26.6 L MCHC 33.2 RDW 15.0 Plt Count 444 H MPV 8.1 L Immature Gran % (Auto) 1.3 H Neut % (Auto) 80.0 H Lymph % (Auto) 7.8 L Pike % (Auto) 6.7 Eos % (Auto) 3.7 Baso % (Auto) 0.5 Lymph # (Auto) 0.9 L Pike # (Auto) 0.8 Eos # (Auto) 0.4 Baso # (Auto) 0.1 Abs Immat Gran (auto) 0.16 H Absolute Neuts (auto) 9.6 H Absolute Nucleated RBC 0.000 Nucleated RBC % (auto) 0.0 Sodium 128 L Potassium 3.9 Chloride 95 L Carbon Dioxide 27 Anion Gap 10 L BUN 12 Creatinine 0.59 Estim Creat Clear Calc 80.9 Estimated GFR > 60 POC Glucose 143 H 175 H Fasting Glucose 140 H Calcium 8.0 L D Total Bilirubin 0.5 AST 13 ALT 21 Alkaline Phosphatase 86 Total Protein 5.4 L Albumin 2.8 L 05/06/24 11:15 WBC RBC Hgb Hct MCV MCH MCHC RDW Plt Count MPV Immature Gran % (Auto) Neut % (Auto) Lymph % (Auto) Pike % (Auto) Eos % (Auto) Baso % (Auto) Lymph # (Auto) Pike # (Auto) Eos # (Auto) Baso # (Auto) Abs Immat Gran (auto) Absolute Neuts (auto) Absolute Nucleated RBC Nucleated RBC % (auto) Sodium Potassium Chloride Carbon Dioxide Anion Gap BUN Creatinine Estim Creat Clear Calc Estimated GFR POC Glucose 236 H Fasting Glucose Calcium Total Bilirubin AST ALT Alkaline Phosphatase Total Protein Albumin Discharge Plan Discharge Anticipated Discharge Date/Time: 05/06/24 10:55 Patient Disposition: Home Health Service Discharge Diagnosis: Large pleural effusion secondary to non-small cell carcinoma of lung Referrals: Noemi GARCIA [Outside] ChadwicksAbbi FNP [Primary Care Provider] - 1 Week Discharge Medications: New oxycodone 5 mg Tablet 5 mg PO Q4H PRN (Reason: Pain, Moderate(Pain Scale 4-6)) Qty: 15 0RF Rx Instructions: Partial Fill upon patient request. [facility]ructions .ROUTE .MEDSUPPLY Qty: 1 0RF Rx Instructions: Folding Front wheeled walker with seat Metamucil 3.4 gram/5.4 gram Powder 1 tsp PO DAILY Rx Instructions: mix into at least 4 oz water or juice before administering acetaminophen 325 mg Tablet 650 mg PO Q6H PRN (Reason: Pain) omeprazole 20 mg capsule,delayed release(DR/EC) 20 mg PO BID@0630,1630 cholecalciferol (vitamin D3) 50 mcg (2,000 unit) capsule 50 mcg PO DAILY metformin 1,000 mg tablet 1,000 mg PO BID multivitamin Tablet 1 tab PO DAILY (DME) lancets [facility] See Rx Instructions topical .MEDSUPPLY Qty: 100 Rx Instructions: As directed (DME) blood sugar diagnostic Strip See Rx Instructions Not Applicable BID Qty: 10 Rx Instructions: As directed atorvastatin 10 mg tablet 10 mg PO DAILY Farxiga 10 mg tablet 10 mg PO DAILY Januvia 25 mg tablet 25 mg PO DAILY terazosin 5 mg capsule 5 mg PO BEDTIME 90 Days Qty: 90 3RF sildenafil [Viagra] 100 mg tablet 100 mg PO DAILY PRN (Reason: erectile dysfunction) 90 Days Qty: 20 3RF Rx Instructions: administer 30 minutes to 4 hours before activity BIN [id number] [facility] Group [address] Creon 24,000-76,000 -120,000 unit capsule,delayed release(DR/EC) 2 cap PO TID 30 Days Qty: 180 6RF losartan 25 mg tablet 25 mg PO BEDTIME nifedipine 30 mg tablet extended release 30 mg PO BEDTIME Discharge Orders: Discharge Order (Routine); Ordered 05/06/24 Ordered By: Tylor Mitchell Diet: Advance to usual diet Activity on Discharge: No Running or jogging Stand Alone Forms: Patient Portal Discharge page Print Language: Bel[place]an Activity Restrictions/Additional Instructions: VNA to visit 3 times a week and attempt closed Pleurex tube drainage. Dressing to be changed at that time and p.r.n.. Please record outputs and forward them to Dr. Lainez's office Care Plan Goals: VNA will visit you 3 times a week to drain catheter and assist with dressing changes Health Concerns: Continue all your medicines as taken prior to the hospital. Oxycodone has been given to you for pain as needed Plan of Treatment: Follow up with thoracic surgery as scheduled. The office will call with an appointment. Follow up with the PCP next available Assessment: See discharge summary
--- NOTE | 2024-05-06 11:33 | MHC.CM.PN ---
Addendum entered by Lida Duggan 05/06/24 11:43: [facility] AWARE PT WILL BE SENT HOME WITH ONE EXTRA KIT AND THEY WILL PROVIDE SOC ON WEDNESDAY Original Note: PT WILL DC HOME TODAY WITH [facility] SERVICES AND EXTRA DRAIN KITS [facility] AWARE OF DC AND WILL PROVIDE SOC WEDNESDAY OR WEDNESDAY DAUGHTER TO TRANSPORT
--- NOTE | 2024-05-06 11:40 | P.F2F_ITS ---
Service Date Service Date: 05/06/24 Encounter Date of encounter: 05/06/24 Encounter: Acute hospitalization Reasons for Services Signs and symptoms assessed: Managed PleurX catheter Reason for custodial: teach disease management and other (Drain PleurX catheter 3 times weekly; change dressing at that time. Record output and report to Dr. Lainez) Homebound: Leaving the home is medically contraindicated at this time without the asist of a device and/or another person due th the listed conditions above and below. Reason homebound: unsteady gait / fall risk and unable to drive Certification: Based on the above findings, I certify that this patient is confined to the home and needs intermittent custodial care, physical therapy and/or speech therapy, or continues to need occupational therapy. The patient is under my care, and I have initiated the establishment of the plan of care. The patient will be followed by a physician who will periodically review the plan of care. Time Spent With Patient Time: Total time managing care of this patient today ____ minutes.
--- NOTE | 2024-05-08 11:22 | W.PM.OPN ---
Operative Note Operative Note Date of Service: 05/05/24 Narrative: Preoperative diagnosis: Sponge, needle, instrument counts reported correct. Patient tolerated the procedure well and emerged from anesthesia stable condition. EBL Recurrent malignant left pleural effusion Postop diagnosis: [] The same Procedure [] PleurX catheter placement left hemithorax with fluoroscopy Surgeon: [] [employer] Internship: [] Dago Type of Anesthesia: [] Local Indication for surgery: [] Uneventful placement of PleurX catheter. Rough 400 cc of fluid retrieved. Findings: [] Patient brought to the operating room, placed on operative table supine position, , the patient placed in right lateral decubitus position, left chest prepped and draped in usual sterile fashion, and after an adequate level of local anesthesia was induced, (previously placed chest tube had already been removed) the left chest was prepped and draped in usual sterile fashion. Using the original tube thoracostomy site has an entry point, a subcutaneous tunnel was fashioned posterior to this and the catheter placed through the subcutaneous tunnel, advanced into the hemithorax with fluoroscopic guidance, and the PleurX catheter was connected to suction device which demonstrated very good drainage of pleural fluid. Wounds were irrigated, secured hemostasis. Access incision was closed using interrupted inverted dermal 3-0 Vicryl sutures. PleurX catheter exit site was secured using 2-0 nylon suture. Distal catheter cuff was in the subcutaneous tissue in proximity of the exit site. Steri-Strips and sterile dressings were applied. Sponge, needle, and instrument counts reported correct. Patient tolerated the procedure well and emerged from anesthesia stable condition. EBL minimal
== END 2024-05-06 13:07 | disposition home health service (06) | DRG 181 ==
LOC: HO.ED 14:31 → HO.EDOVER 16:25 → HO.IMC 23:06 → HO.S3 05-04 11:44
PROVIDERS: Internal Medicine; Physician Assistant; Surgery; Admitting Provider Registered Nurse; Emergency Provider Emergency Medicine; PCP Registered Nurse; Visit Provider Hospitalist
PROC: 0W9B30Z Drainage of Left Pleural Cavity with Drainage Device, Percutaneous Approach (ICD-10-PCS; principal; 2024-05-05 09:00)
DX: C34.90 Malignant neoplasm of unspecified part of unspecified bronchus or lung (principal); E22.2 Syndrome of inappropriate secretion of antidiuretic hormone; J91.0 Malignant pleural effusion; J98.11 Atelectasis; E11.9 Type 2 diabetes mellitus without complications; D63.0 Anemia in neoplastic disease; K86.81 Exocrine pancreatic insufficiency; N40.0 Benign prostatic hyperplasia without lower urinary tract symptoms; E78.00 Pure hypercholesterolemia, unspecified; E83.42 Hypomagnesemia; K21.9 Gastro-esophageal reflux disease without esophagitis; Z79.84 Long term (current) use of oral hypoglycemic drugs; Z79.899 Other long term (current) drug therapy
CPT/HCPCS: 0241U; 36415; 71045; 71046; 71250; 71260; 74176; 80048; 80053; 80076; 81001; 82042; 82378; 82607; 82728; 82746; 82945; 82947; 83540; 83615; 83735; 83880; 83986; 84155; 84157; 84484; 85025; 85027; 85610; 85730; 87040; 87070; 87073; 87086; 87205; 88112; 88305; 88341; 88342; 89051; 92526; 92610; 93005; 94640; 99285; C1729; J0456; J0696; J2003; J2270; J2795; J3475; Q9967

== ENCOUNTER → 2024-04-29 06:50 | Outpatient (BNV) | payer OTHER, SELFPAY | PROVIDERS: Emergency Provider Emergency Medicine; Visit Provider Internal Medicine Cardiovascular Disease | DX: R94.31 Abnormal electrocardiogram [ECG] [EKG] (principal) | CPT/HCPCS: 93010 ==

== ENCOUNTER → 2024-04-29 16:14 | Outpatient (BNV) | payer OTHER, SELFPAY | PROVIDERS: Admitting Provider Registered Nurse; Emergency Provider Emergency Medicine; Visit Provider Registered Nurse | DX: R91.8 Other nonspecific abnormal finding of lung field (principal); J90 Pleural effusion, not elsewhere classified; R04.89 Hemorrhage from other sites in respiratory passages | CPT/HCPCS: 99222; 99232; 99239; G0180 ==

== ENCOUNTER → 2024-04-29 16:14 | Outpatient (BNV) | payer OTHER, SELFPAY | PROVIDERS: Admitting Provider Registered Nurse; Emergency Provider Emergency Medicine; PCP Registered Nurse; Visit Provider Internal Medicine | DX: C34.92 Malignant neoplasm of unspecified part of left bronchus or lung (principal); J91.0 Malignant pleural effusion | CPT/HCPCS: 99222; 99232 ==

== ENCOUNTER → 2024-04-29 16:14 | Outpatient (BNV) | payer OTHER, SELFPAY | PROVIDERS: Admitting Provider Registered Nurse; Emergency Provider Emergency Medicine; Visit Provider Hospitalist | DX: R04.89 Hemorrhage from other sites in respiratory passages (principal); J90 Pleural effusion, not elsewhere classified; R91.8 Other nonspecific abnormal finding of lung field | CPT/HCPCS: 99223 ==

== ENCOUNTER → 2024-04-29 16:14 | Outpatient (BNV) | payer OTHER, SELFPAY | PROVIDERS: Admitting Provider Registered Nurse; Emergency Provider Emergency Medicine; PCP Registered Nurse; Visit Provider Surgery | DX: J90 Pleural effusion, not elsewhere classified (principal) | CPT/HCPCS: 32551; 32557; 99222; 99232 ==

== ENCOUNTER 2024-05-09 09:41 | Outpatient (AMB) | payer OTHER, SELFPAY ==
--- NOTE | 2024-05-09 09:43 | MHC.OFFVIS ---
Vital Signs 05/09/24 09:58 Weight 136 lb BP 129/60 Blood Pressure Location Rt brachial Position Sitting Pulse 93 Intake Visit Reasons: leaking catheter Intake Note: Patient being seen as an urgent visit for catheter oozing. Hx malignant left pleural effusion. Chest tube placement 05-01-24. 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 He had PleurX catheter placed last week and is is having some leakage around the tube exit site. [facility] Medical History (Updated 05/06/24 @ 11:29 by Tylor Mitchell DO) Pleural hemorrhage Diverticulosis Hyponatremia Acute hyponatremia Colon cancer screening Erectile dysfunction Gastritis COVID-19 virus infection Hydrocele Cataract Hypercholesteremia Diabetes BPH (benign prostatic hyperplasia) Hypertension Surgical History (Updated 05/09/24 @ 10:03 by Memo Lainez MD) Hx of colonoscopy History of bilateral knee replacement History of prostate surgery Family History Father Diabetes Mother Diabetes Uterus cancer Mother Cancer Social History Household Members: Spouse Housing: Apartment Housing Other:: housing apartment Are you a primary director of career resources to a significant other at home: No Do you presently have visiting nurse or other home services: No Alcohol intake: never Comment: camera placed as pt is impulsive, attempts to get OOB. Hx falls recently Patient Tobacco Use Status: Never used Tobacco service: No Current occupational status: retired Current occupation: right handed Physical Exam Vital Signs: Last Vital Signs Pulse 93 05/09/24 09:58 BP 129/60 05/09/24 09:58 Chest Other: Left PleurX catheter exit site leakage is demonstrated. Using 1% lidocaine and Betadine prep, a pursestring suture of 3-0 Prolene was placed and secured and solve the issue. Sterile dressing applied. Assessment & Plan Assessment & Plan (1) S/P chest tube placement: Code(s): Z93.8 - Other artificial opening status Category: Medical Plan Patient and family have been given local instructions, patient will otherwise follow-up p.r.n.. He is scheduled to see his oncologist as well. All questions answered. Coding Level of Care Code Global (50237) Diagnoses S/P chest tube placement Z93.8
[2024-05-09 09:58] VITALS: BP 129/60; PULSE 93
== END 2024-05-09 10:10 | disposition home or self-care (01) ==
PROVIDERS: PCP Registered Nurse; Visit Provider Surgery
DX: Z93.8 Other artificial opening status (principal)
CPT/HCPCS: 99213

== ENCOUNTER → 2024-05-09 09:41 | Outpatient (BNVA) | payer OTHER, SELFPAY | PROVIDERS: PCP Registered Nurse; Visit Provider Surgery | DX: Z93.8 Other artificial opening status (principal); T85.638A Leakage of other specified internal prosthetic devices, implants and grafts, initial encounter; J91.0 Malignant pleural effusion | CPT/HCPCS: 99212 ==

== ENCOUNTER → 2024-05-11 09:54 | Outpatient (BNV) | payer OTHER, SELFPAY | PROVIDERS: PCP Registered Nurse; Visit Provider Internal Medicine | DX: C34.92 Malignant neoplasm of unspecified part of left bronchus or lung (principal); E87.1 Hypo-osmolality and hyponatremia; D50.9 Iron deficiency anemia, unspecified; R74.01 Elevation of levels of liver transaminase levels | CPT/HCPCS: 99214; 99215; G2211 ==

== ENCOUNTER → 2024-05-23 13:04 | Outpatient (BNV) | payer OTHER, SELFPAY | PROVIDERS: PCP Registered Nurse; Visit Provider Radiology Diagnostic Radiology | DX: C34.92 Malignant neoplasm of unspecified part of left bronchus or lung (principal) | CPT/HCPCS: 70553 ==

== ENCOUNTER 2024-05-23 13:23 | Outpatient (REF) | payer OTHER, SELFPAY ==
--- NOTE | ~2024-05-23 | MR_ITS ---
EXAMINATION: MR BRAIN WITHOUT AND WITH CONTRAST CLINICAL INFORMATION: Staging, lung cancer. COMPARISON: None available. TECHNIQUE: Multiplanar, multisequence MRI of the brain was obtained before and after the intravenous administration of 6 mL Gadavist. Examination was performed by 1.5 Valerie Siemens unit using standard sequences. FINDINGS: There is no diffusion restriction. There is no intracranial hemorrhage, acute infarction, mass effect, or edema. No shift of midline. No abnormal hemosiderin deposition is identified. The lateral and third ventricles are somewhat dilated out of proportion to the degree of generalized sulcal prominence. There is thinning of the corpus callosum. This may reflect central atrophy, although a component of communicating hydrocephalus is not excluded. No associated indirect findings of increased intracranial pressure are identified. There are a scattered punctate and minimally confluent foci of white matter T2 hyperintensity in the periventricular, subcortical, and hemispheric deep white matter, nonspecific.2 After the administration of contrast, no abnormal intra or extra-axial enhancement is identified. Midline structures appear normally formed. The pituitary gland appears normal. Posterior fossa structures appear normal. Cerebellar tonsils are appropriately located. Major flow voids are preserved within the skull base. The globes and orbital contents demonstrate no abnormalities. Left lens replacement. Mild dependent mucosal thickening seen right maxillary antrum. Paranasal sinuses, mastoids and tympanic cavities otherwise normal in signal. Nasal septum is midline without spur. Extracranial soft tissues demonstrate no abnormalities. No suspicious bone marrow changes are evident. Atlantoaxial joint is normal. MR/MR head/brain wo/w con IMPRESSION: 1. No evidence of intracranial hemorrhage, acute infarction, mass effect, or edema. No abnormal enhancement to suggest metastases. 2. Lateral and third ventricles are dilated somewhat out of proportion to the degree of generalized sulcal prominence. No transependymal CSF resorption. This is nonspecific and may reflect central atrophy, although a component of communicating hydrocephalus is not excluded. There are no indirect signs of increased intracranial pressure. 3. There are mild bilateral scattered foci of punctate and minimally confluent white matter T2 hyperintensity in the supratentorial periventricular, subcortical, and hemispheric deep white matter. No distribution or morphology specific to demyelinating disease. These foci statistically represent small vessel ischemic changes. Electronically signed by: David Gilliam MD 05/26/2024 01:25 PM [facility]
[2024-05-23] MEDS: gadobutroL 7.5 ML VIAL IVPUSH (14:50)
== END 2024-05-23 13:24 | disposition home or self-care (01) ==
LOC: HO.MRI 13:23
PROVIDERS: PCP Registered Nurse; Visit Provider Internal Medicine
DX: C34.92 Malignant neoplasm of unspecified part of left bronchus or lung (principal)
CPT/HCPCS: 70553; A9585

== ENCOUNTER → 2024-06-26 12:58 | Outpatient (REF) | payer OTHER, SELFPAY ==
--- NOTE | 2024-06-26 13:03 | CA_ITS ---
Transthoracic Echocardiogram Patient (Last, First, Middle): Lei Drew, Gender: Male Date of : 1945 Age: 79 Procedure Date: 06/26/2024 Procedure Type: Transthoracic Echocardiogram Location: OP Height: 157.48 cm Weight: 66.23 kg BSA: 1.67 m2 Heart Rate: bpm BP: 130 / 70 mmHg Grid Caster: PRATIK Referring MD: Louisa Morales MD Servomechanism Designer: Cirilo Beck MD Symptoms: cough, R06.02 SOB Study Quality: Fair ECG Rhythm: Sinus Conclusions: - 1. Normal LV ejection fraction 55-60% with impaired relaxation filling pattern 2. Sbkw-ut-ebtykdup aortic regurgitation 3. Normal RV systolic pressure 4. No gross pericardial effusion Findings Left Ventricle Normal left ventricular size, thickness, and systolic function. The visually estimated ejection fraction is between 55-60%. Spectral Doppler is indicative of an impaired relaxation filling pattern. Right Ventricle Normal right ventricular cavity size and systolic function. Atria The left atrium is normal in size. Interatrial shunt cannot be excluded. The right atrium is normal in size. Aortic Valve There is mild calcification of the aortic valve. There is no aortic valve stenosis. There is mild to moderate aortic valve regurgitation. Mitral Valve Likely normal mitral valve structure and function. There is trace mitral valve regurgitation. There is no mitral valve stenosis. Pulmonic Valve The pulmonic valve is likely normal. Tricuspid Valve Likely normal tricuspid valve structure and function. There is trace tricuspid valve regurgitation. The right ventricular systolic pressure is normal. The right ventricular systolic pressure is 23 mmHg. Normal right atrial pressure. There is no evidence of pulmonary hypertension. Great Vessels All visible segments of the aorta are normal in size. The pulmonary artery was not well visualized. There is no dilatation of the ascending aorta measuring 3.30 cm. Small plaque is seen in the sino tubular ridge. Venous The inferior vena cava is normal in size and collapses greater than 50% with inspiration. Pericardium/Pleural There is no evidence of pericardial effusion. Prior Study Comparison No significant change compared to prior study dated: 11/07/2019. Measurements 2D Linear Measurements IVSd: 1.01 0.6-0.9/0.6-1.0 cm LVIDd: 4.07 3.9-5.3/4.2-5.9 cm LVIDd Index: 2.44 2.4-3.2/2.2-3.1 cm/m2 LVIDs: 2.85 2.0-3.6 cm LVPWd: 1.07 0.7-1.1 cm Ao Root: 3.50 2.1-3.5 cm LA Diam: 2.30 2.7-3.8/3.0-4.0 cm LAIDs Index: 1.38 1.5-2.3 cm/m2 LV Mass: 171.80 67-162/88-224 g LV Mass Index: 102.87 43-95/49-115 g/m2 LVOT Diam: 2.10 3.0+(-)1.3 cm Mitral Valve MV Pk E: 0.57 MV PK A: 0.72 MV Decel Time: 161.00 E/A: 0.80 E'Lateral: 5.00 E'Medial: 6.09 E/E' Med: 9.30 E/E' Lat: 11.30 PHT: 47.00 MVA PHT: 4.68 Decel Brown: 3.52 Aortic Valve AoV Pk Prabhu: 1.77 AoV Mn Prabhu: 1.12 AoV VTI: 0.31 AoV Pk Grad: 13.00 Aov Mn Grad: 6.00 MIRLANDE Cont.VTI: 2.60 AI Pk Prabhu: 3.94 AI Brown: 3.35 LVOT LVOT Pk Prabhu: 1.28 LVOT Mn Prabhu: 0.72 LVOT VTI: 0.23 LVOT Pk Grad: 7.00 LVOT Mn Grad: 3.00 LVOT Diam: 2.10 LVOT Area: 3.46 Diastolic Function MV Pk E: 0.57 MV Pk A: 0.72 E/A: 0.80 E'Medial: 6.09 E/E' Med: 9.30 E' Laterial: 5.00 E/E' Lat: 11.30 Right Ventricle TAPSE (mm): 25.00 Tricuspid Valve TR Pk Prabhu: 2.26 TR Pk Grad: 20.00 RA Press: 3.00 RVSP: 23.00 Great Vessels Aorta Ao Root-2D: 3.50 2.0-3.7 cm Ao Asc: 3.30 2.1-3.4 cm Pulmonary Valve PV Pk Prabhu: 0.97 Peak PV Grad: 4.00 Updated in Other Vendor System with Status of Final Cirilo Beck MD electronically signed on 06/27/2024 12:39:53 PM with status of Final
== END ==
LOC: HO.CARD 12:58
PROVIDERS: PCP Registered Nurse; Visit Provider Internal Medicine
DX: C34.90 Malignant neoplasm of unspecified part of unspecified bronchus or lung (principal); R06.02 Shortness of breath
CPT/HCPCS: 93306

== ENCOUNTER → 2024-06-26 13:03 | Outpatient (BNV) | payer OTHER, SELFPAY | PROVIDERS: PCP Registered Nurse; Visit Provider Internal Medicine Cardiovascular Disease | DX: I35.1 Nonrheumatic aortic (valve) insufficiency (principal); I35.8 Other nonrheumatic aortic valve disorders | CPT/HCPCS: 93306 ==

== ENCOUNTER 2024-07-03 10:35 | Outpatient (REF) | payer OTHER, SELFPAY | END 2024-07-03 10:36 | disposition home or self-care (01) | LOC: HO.LAB 10:35 | PROVIDERS: PCP Registered Nurse; Visit Provider Internal Medicine | DX: Z13.89 Encounter for screening for other disorder (principal) ==

== ENCOUNTER 2024-08-21 13:25 | Outpatient (REF) | payer OTHER, SELFPAY ==
--- OUTSIDE RECORDS SUMMARY | 2024-08-21 15:55 | XMS_ITS | Encounter Summary ---
Author Organization [employer] Address [address] [place] [address] Care Team Providers Care Candy Polisher Name Role Phone Maria A, [facility] Primary Care Provider [phone] Reason for Visit * Reason Onset Date Comments [employer] patient care solution 08/17/2024 Gauze, non-impregnated, steril. Without adhesive border, each dressing. Encounter Details Date Type Department Care Team ([facility] st Contact Info) Description 08/17/[address] [facility] MED[facility] [address], [place] [phone] [facility], [facility] [address], [place] [phone] [facility] patient care solution (Gauze, non-impregnated, steril. Without adhesive border, each dressing.) Social History Tobacco Use Types Packs/Day Years Used Date Smoking Tobacco: Never Passive Smoke Exposure: Never Smokeless Tobacco: Never Alcohol Use Standard Drinks/Week Comments Never 0 (1 standard drink = 0.6 oz pur e alcohol) Alcohol Answer Date Recorded Frequency of Alcohol Consumption Not on file 10/22/2023 Average Number of Drinks Not on file 024 Frequency of Binge Drinking Not on file 11/2023 Score 0 10/22/2023 Depression Answer Date Recorded Patient Health Questionnaire-9 Score 0 07/05/2024 Patient Health Questionnaire-9 Score 0 07/05/2024 Last PHQ-9: Questionnaire Data Not on file 1 09/05/2023 Housing Stability Answer Date Recorded What is your housing situation today? I have elza mosley 10/14/[address] you li ve. Do you have problems with any of the following? None of the above 10/14/2023 Food Insecurity Answer Date Recorded Within the past 12 months, y ou worried that your food would run out before you got money to buy more: Never True 10/14/2023 Within the past 12 months,th e food you bought just didn't last and you didn't have enough money to get more: Never True Transportation Answer Date Recorded In the past 12 months, has l ack of transportation kept you from medical appts, meetings, work or from getting things needed for daily living? No 10/14/2023 Utilities Answer Date Recorded In the past 12 months, has t he electric, gas, oil or water company threatened to shut off services in your home? No 10/14/2023 Depression Answer Date Recorded Patient Health Questionnaire-2 Score 0 07/05/2024 Sex and Gender Information Value Date Recorded Sex Assigned at Male 05/18/2022 10:30 AM EDT Legal Sex Male 10:30 AM EDT Gender Identity Male 05/18/2022 10:30 AM EDT Sexual Orientation Straight 09/15/2022 2: 27 PM EST documented as of this encounter Miscellaneous Notes * Telephone Encounter - Shadia Alexander MA - 08/17/2024 2:02 PM EST [facility]ze, non-impregnated, steril. Form has been filled out and placed on PCP's desk for signature. documented in this encounter Plan of Treatment Upcoming Encounters Date Type Department Care Team (Late st Contact Info) Description 09/20/2024 11:30 AM EST Office Visit [facility] [address] [place] [address] Abbi Saha FNP [address] [place] [address] 09/27/2024 3:00 PM EDT Office Visit [facility] ADULT DENTAL [address] [place] [address] Ballesteros, Karla documented as of this encounter Visit Diagnoses Not on filedocumented in this encounter Additional Health Concerns Assessment Noted Time PHQ-9 Depression Total Score: 0 07/05/20 11:25 AM EST documented as of this encounter Care Teams Candy Polisher Relationship Specialty Start Date End Date Abbi Saha FNP [address] [place] [id number] PCP - General Family Medicine 04/01/23 Noemi GARCIA 05/08/24 documented as of this encounter
--- OUTSIDE RECORDS SUMMARY | 2024-08-21 15:55 | XMS_ITS | Clinical Summary ---
Author Organization [employer] Address [address] [facility] [facility] [address] [place] [address] Care Team Providers Care Table Games Supervisor Name Role Phone Abbi Saha [facility] Primary Care Provider [phone] Allergies No known active allergies Medications Diclofenac Sodium 1 % gel Apply 2 g topically every 6 (six) hours. 1 Active Lidocaine 4 % patch Apply to the affected area up to 3 times daily as needed Active sildenafil (Viagra) 100 MG tablet Take 1 tablet by mouth at bed time. Active Blood Glucose Monitoring Suppl ([employer] [place] Verio) w/Device kitIndications:T ype 2 diabetes mellitus without complication, without long-term current use of insulin ([facility]) 1 kit before breakfast and before evening meal. 1 kit 2 Active acetaminophen (Tylenol) 325 MG tablet Take 2 tablets by mouth. Active cholecalciferol (Vitamin D-3) 50 MCG (2000 UT) capsule TAKE 1 CAPSULE BY MOUTH EVERYDAY AT NOON 2 Active ferrous sulfate 325 (65 Fe) MG tablet Take 1 tablet by mouth. 1 Active glipiZIDE (Glucotrol) 10 MG tablet Take 2 tablets by mouth. Active traMADol (Ultram) 50 MG tablet Take 50 mg by mouth every 8 (eight) hours if needed. 3 Active tamsulosin (Flomax) 0.4 MG 24 hr capsule Take 1 capsule (0.4 mg) by mouth in the morning. 30 capsule 1 3 Active glucose blood (OneTouch Verio) test strip TEST BLOOD SUGAR TWICE A DAY 100 each 3 Active Multiple Vitamin (Multivitamin) tabletIndication s:Type 2 diabetes mellitus with hyperglycemia, without long-term current use of insulin (CMS/HCC) TAKE 1 TABLET BY MOUTH EVERY EVENING WITH FOOD 90 tablet 3 4 Active Lancets (OneTouch Delica Plus [id number]) miscIndications: Elevated blood sugar TEST BLOOD SUGAR TWICE DAILY 100 each 11 4 Active terazosin (Hytrin) 5 MG capsule Take 5 mg by mouth at bedtime. 4 Active psyllium (Metamucil Smooth Texture) 58.6 % powderIndication s:Type 2 diabetes mellitus with hyperglycemia, without long-term current use of insulin (CMS/HCC) Take 5.12 g (3 g of fiber) by mouth Once per day. 283 g 11 4 02/25/20 25 Active atorvastatin (Lipitor) 10 MG tablet TAKE 1 TABLET BY MOUTH EVERY EVENING 90 tablet 2 4 Active oxyCODONE (Roxicodone) 5 MG immediate release tablet 5 mg. 4 Active Creon 05274-44281 units capsule 2 capsules. 4 Active Farxiga 10 MGIndications:Ty pe 2 diabetes mellitus with other specified complication, unspecified whether longterm insulin use (CMS/HCC) TAKE 1 TABLET BY MOUTH EVERY MORNING 90 tablet 1 4 Active omeprazole (PriLOSEC) [address] capsuleIndicatio ns:Dyspepsia TAKE 1 CAPSULE BY MOUTH TWICE DAILY 60 capsule 1 4 Active Active Problems Problem Noted Date Diagnosed Date Primary malignant neoplasm o f left lung metastatic to other site 07/05/2024 Overview (07/05/2024): New dx of metastatic NSCLC 04/2024.-- Presented to [facility] w1 with acute SOB. CT chest with to large left pleural effusion causing mass effect and mediastinal shift to the right, atelectasis of left lower and upper lobes. CT abdomen/pelvs w/ perinephric fat stranding around left kidney of uncertain etiology 05/03/24- repeat chest CT w/ residual fluid in the pleural space Left chest tube in place-VNA comes 3x/week to drain A brain MRI performed 05/23/2024 shows no evidence of metastatic disease. PET-CT performed 05/30/24 at [facility] showed FDG avid loculated left-sided pleural effusion with scattered opacities in the left lung demonstrating FDG activity. FDG avid mediastinal, left hilar lymphadenopathy likely representing metastatic disease. Nonenlarged left-sided lower cervical lymph nodes with FDG activity representing metastatic disease. No FDG activity in abdomen or pelvis. Patient started palliative systemic therapy with single agent pembrolizumab 200 mg IV q. 3 weeks starting 06/02/2024. Congenital foot deformity 12/29/2023 Mixed hyperlipidemia 10/25/2022 Overview (10/25/2022): ?? Atorvastatin 10mg Lower urinary tract symptoms (LUTS) 10/25/2022 Overview (10/25/2022): ?? Followed by urology Sensorineural hearing loss (SNHL) of both ears 0 10/25/2022 Overview (05/19/2023): ?? 10/2022-audiology with severe bilateral sensorineural hearing loss Assessment & Plan (05/19/2023 11:09 AM EDT): ?? Follow up as scheduled with ENT for hear aid clearance Abnormality of gait and mobility 10/25/2022 Overview (10/25/2022): ?? S/t congenital foot deformity Assessment & Plan (05/19/2023 11:08 AM EDT): ?? Referral to PT for gait instability Healthcare maintenance 10/16/2022 Overview (10/25/2022): Healthcare Maintenance: C-scope: [facility] 2021, needs records PSA: Per urology HCV Screen: Neg 09/10 HIV Screen: Neg 09/10 Immunizations: UTD ?? Weight loss 09/17/2022 Diabetes 09/11/2022 Overview (02/25/2024): Farxiga 10mg daily Metformin 1000mg b.i.d Januvia 25 mg daily Foot Exam: Risk 0; followed by podiatry ([place]) Eye Exam: [facility] Eye care Statin: Yes ASA: No BLOSSOM/ARB: Yes Encouraged regular aerobic exercise for improved glycemic control Encouraged daily foot checks Encouraged lean protein snacks and to avoid foods high in sugar and simple carbohydrates Treatment Goals: A1c goal: <7% FBG goal: <130 2 hour post prandial goal: <180 Assessment & Plan (08/11/2023 10:19 AM EST): Lab Results Component Value Date HGBA1C 7.0 (A) 07/21/2023 Well controlled Continue current regimen Assessment & Plan (07/20/2023 9:12 PM EST): Lab Results Component Value Date HGBA1C 7.3 (A) 04/30/2023 Well controlled Continue current regimen ?? Referral to podiatry for ongoing toe deformity ([place]) Assessment & Plan (05/19/2023 11:07 AM EDT): Lab Results Component Value Date HGBA1C 7.3 (A) 04/30/2023 ?? Well controlled ?? Continue current regimen ?? Repeat labs today ?? Has upcoming appointment for [facility] eye care Assessment & Plan (10/25/2022 1:09 PM EDT): ?? Continue current regimen ?? Repeat A1c at follow up Anemia 09/11/2022 Hyponatremia 03/04/2021 Overview (10/25/2022): ?? Followed by nephrology for hyponatremia-last seen06/2022; dx hyponatremia during 2019 knee surgery (128). HCTZ was stopped at this time. Assessment & Plan (05/19/2023 11:06 AM EDT): ?? Stable ?? Follow as scheduled with nephrology Other chronic pain 10/07/2017 Overview (05/19/2023): ?? Persistent chronic pain in knees, back, hips ?? S/p bilateral knee replacement ?? On tramadol 50mg q. 8 hours Assessment & Plan (05/19/2023 11:14 AM EDT): ?? Compliant with LITHOPRESS OPERATOR agreement ?? Only using tramadol 1x/week due to concern re addiction ?? Advised patient OK to take tramadol at bedtime nightly if pain interfering with sleep ?? Continue acetaminophen PRN during day ?? Continue lidocaine patch ?? Continue topical diclofenac gel ?? Continue acupuncture ?? PT referral for general gait instability Assessment & Plan (10/25/2022 1:09 PM EDT): ?? Will refer to LITHOPRESS OPERATOR RN Hypertensive disorder 04/12/2017 Overview (02/25/2024): Losartan 25mg Nifedipine 30mg Previously unable to tolerate hydrochlorothiazide (hyponatremia) - Aerobic exercise to reduce BP. Initial goal of 30 min walk 3-5x/week. Increase as tolerated. - low-sodium diet (goal: <2g/day) and heart healthy diet such as DASH to reduce BP and prevent ASCVD. - Home BP monitoring 1-2 x day with goal of <140/90. - Seek immediate medical attention for chest pain, palpitations, SOB, syncope, or sudden changes in mental status. - Do not change or discontinue current prescriptions without first consulting health care provider Assessment & Plan (07/20/2023 9:10 PM EST): Well controlled Continue current regimen Assessment & Plan (05/19/2023 11:05 AM EDT): Well controlled Continue current regimen Repeat labs today Resolved Problems Problem Noted Date Diagnosed Date Resolved Date Diarrhea 11/30/2022 05/19/2023 Type 2 diabetes mellitus without complication 04/15/20 18 10/25/2022 Encounters Date Type Department Care Team Description 08/21/2024 Refill [facility] MED & PEDS [address] [place] [address] NorcoAbbi FNP 08/21/2024 Refill [facility] MEDICINE [address] [place], [place] [phone] Abbi Saha FNP 08/17/2024 Telephone [facility] MEDICINE [address] [place] [address] NorcoAbbi [facility] [employer] patient care solution (Gauze, non-impregnated, steril. Without adhesive border, each dressing.) 08/16/2024 Telephone [facility] MEDICINE [address] [place] [address] NorcoAbbi [facility] (Transparent film >16<=48 in) 07/16/2024 Refill [facility] MEDICINE [address] [place] [address] NorcoAbbi robb [facility] Type 2 diabetes mellitus with hyperglycemia, without long-term current use of insulin ([facility]) 07/05/2024 11:30 AM EST Office Visit [facility] [place] [address] Abbi Saha [facility] Primary malignant neoplasm of left lung metastatic to other site ([facility]) (Primary Dx); Type 2 diabetes mellitus with hyperglycemia, without long-term current use of insulin ([facility]) 07/05/2024 Travel 06/23/2024 Refill [facility] MEDICINE [address] [place] [address] NorcoAbbi [facility] Dyspepsia 06/14/2024 Refill [facility] [address] [place] [address] NorcoAbbi robb [facility] Type 2 diabetes mellitus with other specified complication, unspecified whether longterm insulin use ([facility]) 06/06/[address] [address] Abbi Saha [facility] Medication Question 05/31/[address] [address] Mili Hernandez RN Blood Pressure Check 05/31/[address] [address] Maria AAbbi robb [facility] FYI from Last 3 Months Immunizations Name Administration Dates Next Due Influenza High-dose Quadriva lent Preservative Free 04/09/2023,04/17/2022,05/23/2021,05/07 Influenza injectable quadriv alent IIV4 with preservative 06/15/2018 Influenza, High Dose Seasona l, Preservative Free 05/15/2024,05/22/2019,04/12/2017 Pfizer Covid-19 Vaccine 12+ 05/15/2024, 3 Pfizer Covid-19 Vaccine 12+ Bivalent 04/28/2022 Pneumococcal Conjugate PCV 13 05/22/2019 Pneumococcal Polysaccharide PPSV23 05/14/2015 Td (adult), 5 Lf tetanus tox oid, preservative free, adsorbed 10/16/2022 Tdap 05/07/2015 Zoster, Recombinant 07/08/2020,05/07/2020 Zoster, live 01/10/2018 Social History Tobacco Use Types Packs/Day Years Used Date Smoking Tobacco: Never Passive Smoke Exposure: Never Smokeless Tobacco: Never Tobacco Cessation:Counseling Given: Not Answered Alcohol Use Standard Drinks/Week Comments Never 0 [...] Orientation Straight 09/15/2022 2: 27 PM EST Last Filed Vital Signs Vital Sign Reading Time Taken Comments Blood Pressure 120/66 07/05/2024 11:24 AM EST Pulse 77 07/05/2024 11:24 AM EST Temperature 36.4 ??C (97.5 ??F) 07/05/2024 11:[address] Respiratory Rate 20 07/05/2024 11:24 AM EST Oxygen Saturation 98% 07/05/2024 11:24 AM EST Inhaled Oxygen Concentration - - Weight 63 kg (138 lb 12.8 oz) 07/05/2024 11:24 A M EST Height 157.5 cm (5' 2 ) 07/05/2024 11:24 AM EST Body Mass Index 25.39 07/05/2024 11:24 AM EST Plan of Treatment Upcoming Encounters Date Type Department Care Team (Late st Contact Info) Description 09/20/2024 11:30 AM EST Office Visit [facility] MEDICINE [address] [place] [address] [facility] [address] [place] [address] 09/27/2024 3:00 PM EDT Office Visit [facility] ADULT DENTAL [address] [place] [address] Karla Ballesteros Health Maintenance Due Date Last Done Comments Dental Oral Exam 03/29/2017 09/25/2016 Dental X-Ray: Full Mouth 09/27/2019 09/25/2016 RSV Patients and Patients Aged 60 years or older (1 - 1-dose 75+ series) 2021 Diabetes: Urine Protein Screening 05/03/2024 05/03/2023, 01/06/2022, 01/30/2020 Lipid Panel 05/03/2024 05/03/2023, 08/20, 01/06/2022, Additional history exists Diabetes: Foot Exam 07/02/2024 07/02/2023, 07/02/2023, 07/02/2023 Dental Prophylaxis 08/20/2024 02/17/2024, 0 01/28/2022, 06/23/2021, Additional history exists SDOH Screening 10/13/2024 10/14/2023 Alcohol/Substance Use Screening 10/21/2024 10/22/2023 Diabetes: Hemoglobin A1C 01/03/2025 024, 02/25/2024, 10/22/2023, Additional history exists Dental X-Ray: Bitewings 02/17/2025 02/17/20 24, 11/26/2023, 07/17/2019, Additional history exists Depression Screening 07/05/2025 07/05/2024, 07/05/20 Tobacco Screening 07/05/2025 07/05/2024 Eye Exam 07/19/2025 07/19/2023 DTaP/Tdap/Td Vaccines (3 - Td or Tdap) 10/16/2032 10/16/2022, 05/07/2015 Pneumococcal Vaccine: 50+ Years Completed 05/22/2019, 05/14/2015 Zoster Vaccines Completed 07/08/2020, 04/19, 01/10/2018 Hepatitis C Screening Completed 09/11/2022 COVID-19 Vaccine Completed 05/15/2024, 12/2022, 04/28/2022, Additional history exists Influenza Vaccine Completed 05/15/2024, , 04/17/2022, Additional history exists HIB Vaccines Aged Out No longer eligi ble based on patient's age to complete this topic HPV Vaccines Aged Out No longer eligi ble based on patient's age to complete this topic Hepatitis A Vaccines Aged Out No long er eligible based on patient's age to complete this topic Hepatitis B Vaccines Aged Out No long er eligible based on patient's age to complete this topic IPV Vaccines Aged Out No longer eligi ble based on patient's age to complete this topic Meningococcal Vaccine Aged Out No andria jaime eligible based on patient's age to complete this topic RSV under 20 months Aged Out No longe r eligible based on patient's age to complete this topic Rotavirus Vaccines Aged Out No longer eligible based on patient's age to complete this topic Procedures Procedure Name Priority Date/Time Associated Diagnosis Comments POCT GLUCOSE Routine 07/05/2024 11:27 AM EST Type 2 diabetes mellitus with hyperglycemia, without long-term current use of insulin (CMS/HCC) POCT GLYCATED HEMOGLOBIN, TOTAL Routine 07/05/2024 11:27 AM EST Type 2 diabetes mellitus with hyperglycemia, without long-term current use of insulin (CMS/HCC) MR BRAIN W AND WO CONTRAST Routine 05/23/2024 1:35 PM EST PROPHYLAXIS - ADULT Routine 02/17/2024 1 0:00 AM EDT Dental calculus Dental plaque BITEWINGS - 2 RADIOGRAPHIC IMAGES Routine 02/17/2024 10:00 AM EDT ALBUMIN, RANDOM URINE W/CREATININE Routine 05/03/2023 8:36 AM EDT Type 2 diabetes mellitus with hyperglycemia, without long-term current use of insulin (CMS/HCC) LIPID PANEL, STANDARD Routine 05/03/2023 8:36 AM EDT Type 2 diabetes mellitus with hyperglycemia, without long-term current use of insulin (CMS/HCC) HEPATITIS C AB W/REFL TO HCV RNA, QN, PCR Routine 09/11/2022 3:09 PM EST Healthcare maintenance DIAGNOSTIC - DIAGNOSTIC IMAGING - INTRAORAL - COMPREHENSIVE SERIES OF RADIOGRAPHIC IMAGES Routine 09/25/2016 12:00 AM EST COMPREHENSIVE ORAL EVALUATION - NEW OR ESTABLISHED PATIENT Routine 09/25/2016 12:00 AM EST from Last 3 Months or Most Recently Relevant to Health Maintenance Results * (ABNORMAL) POCT HGB A1C (07/05/2024 11:27 AM EST) Hemoglobin A1C 6.2(A) 4.0 - 6.0 % Blood 07/05/2024 11:2 7 AM EST [facility] ACTIVE DIRECTORY ADMINISTRATOR POINT OF CARE TEST ENTER/EDIT ORDERABLES Final Result * POCT Glucose (07/05/2024 11:27 AM EST) Glucose Blood, POC 128 60 - 200 mg/dL Blood Capillary blood specimen / Unknown 07/05/2024 11:27 AM EST [facility] ACTIVE DIRECTORY ADMINISTRATOR POINT OF CARE TEST ENTER/EDIT ORDERABLES Final Result * Mr Brain w/ and w/o Contrast (05/23/2024 1:35 PM EST) Anatomical Region Laterality Modality Brain Magnetic Resonan ce 05/23/2024 1:35 PM EST Narrative 05/26/2024 1:28 PM EST ? [facility] ?[address] ?[place] [address] ? Magnetic Resonance Report ? Signed ? Patient: Viki,Lei ?MR#: [id number] ? : 1945 ?Acct:[id number] ? Age/Sex: 78 / M ?ADM Date: 05/23/24 ? Loc: HO.MRI ? Attending Dr: Louisa Morales MD ? Ordering Physician: Louisa Morales MD ?? Date of Service: 05/23/24 ?? Procedure(s): MR head/brain wo/w con ?? Accession Number(s): [id number] ? cc: Louisa Morales MD; Abbi Saha ? EXAMINATION: ?? MR BRAIN WITHOUT AND WITH CONTRAST ? CLINICAL INFORMATION: ?? Staging, lung cancer. ? COMPARISON: ?? None available. ? TECHNIQUE: ?? Multiplanar, multisequence MRI of the brain was obtained before and ?? after the intravenous administration of 6 mL Gadavist. Examination was ?? performed by 1.5 Valerie Siemens unit using standard sequences. ? FINDINGS: ?? There is no diffusion restriction. ?? There is no intracranial hemorrhage, acute infarction, mass effect, or ?? edema. ?? No shift of midline. ?? No abnormal hemosiderin deposition is identified. ? The lateral and third ventricles are somewhat dilated out of proportion ?? to the degree of generalized sulcal prominence. There is thinning of ?? the corpus callosum. This may reflect central atrophy, although a ?? component of communicating hydrocephalus is not excluded. No associated ?? indirect findings of increased intracranial pressure are identified. ? There are a scattered punctate and minimally confluent foci of white ?? matter T2 hyperintensity in the periventricular, subcortical, and ?? hemispheric deep white matter, nonspecific.2 ? After the administration of contrast, no abnormal intra or extra-axial ?? enhancement is identified. ? Midline structures appear normally formed. The pituitary gland appears ?? normal. ?? Posterior fossa structures appear normal. Cerebellar tonsils are ?? appropriately located. ?? Major flow voids are preserved within the skull base. ? The globes and orbital contents demonstrate no abnormalities. Left lens ?? replacement. ? Mild dependent mucosal thickening seen right maxillary antrum. ?? Paranasal sinuses, mastoids and tympanic cavities otherwise normal in ?? signal. ?? Nasal septum is midline without spur. ? Extracranial soft tissues demonstrate no abnormalities. ?? No suspicious bone marrow changes are evident. ?? Atlantoaxial joint is normal. ? MR/MR head/brain wo/w con ?? IMPRESSION: ?? 1. No evidence of intracranial hemorrhage, acute infarction, mass ?? effect, or edema. No abnormal enhancement to suggest metastases. ?? 2. Lateral and third ventricles are dilated somewhat out of proportion ?? to the degree of generalized sulcal prominence. No transependymal CSF ?? resorption. This is nonspecific and may reflect central atrophy, ?? although a component of communicating hydrocephalus is not excluded. ?? There are no indirect signs of increased intracranial pressure. ?? 3. There are mild bilateral scattered foci of punctate and minimally ?? confluent white matter T2 hyperintensity in the supratentorial ?? periventricular, subcortical, and hemispheric deep white matter. No ?? distribution or morphology specific to demyelinating disease. These ?? foci statistically represent small vessel ischemic changes. ? Electronically signed by: ??David Gilliam MD ??05/26/2024 01:25 PM EST RP ? Dictated By: ?David Gilliam MD ? Signed By: ?<Electronically signed by David Gilliam MD in OV> ?05/26/24 1325 ? DD/ 1335 ? TD/TT: 05/23/24 1384 ? [employer] Mixer: ? Procedure Note Yemi, Image - 05/26/[address] [address] Magnetic Resonance Report Signed Patient: Scottie Drew#: [id number] : 6Acct:[id number] Age/Sex: 78 / MADM Date: 05/23/24 Loc: HO.MRI Attending Dr: Louisa Morales MD Ordering Physician: Louisa Morales MD Date of Service: 05/23/24 Procedure(s): MR head/brain wo/w con Accession Number(s): [id number] cc: Louisa Morales MD; [facility] EXAMINATION: MR BRAIN WITHOUT AND WITH CONTRAST CLINICAL INFORMATION: Staging, lung cancer. COMPARISON: None available. TECHNIQUE: Multiplanar, multisequence MRI of the brain was obtained before and after the intravenous administration of 6 mL Gadavist. Examination was performed by 1.5 Valerie Siemens unit using standard sequences. FINDINGS: There is no diffusion restriction. There is no intracranial hemorrhage, acute infarction, mass effect, or edema. No shift of midline. No abnormal hemosiderin deposition is identified. The lateral and third ventricles are somewhat dilated out of proportion to the degree of generalized sulcal prominence. There is thinning of the corpus callosum. This may reflect central atrophy, although a component of communicating hydrocephalus is not excluded. No associated indirect findings of increased intracranial pressure are identified. There are a scattered punctate and minimally confluent foci of white matter T2 hyperintensity in the periventricular, subcortical, and hemispheric deep white matter, nonspecific.2 After the administration of contrast, no abnormal intra or extra-axial enhancement is identified. Midline structures appear normally formed. The pituitary gland appears normal. Posterior fossa structures appear normal. Cerebellar tonsils are appropriately located. Major flow voids are preserved within the skull base. The globes and orbital contents demonstrate no abnormalities. Left lens replacement. Mild dependent mucosal thickening seen right maxillary antrum. Paranasal sinuses, mastoids and tympanic cavities otherwise normal in signal. Nasal septum is midline without spur. Extracranial soft tissues demonstrate no abnormalities. No suspicious bone marrow changes are evident. Atlantoaxial joint is normal. MR/MR head/brain wo/w con IMPRESSION: 1. No evidence of intracranial hemorrhage, acute infarction, mass effect, or edema. No abnormal enhancement to suggest metastases. 2. Lateral and third ventricles are dilated somewhat out of proportion to the degree of generalized sulcal prominence. No transependymal CSF resorption. This is nonspecific and may reflect central atrophy, although a component of communicating hydrocephalus is not excluded. There are no indirect signs of increased intracranial pressure. 3. There are mild bilateral scattered foci of punctate and minimally confluent white matter T2 hyperintensity in the supratentorial periventricular, subcortical, and hemispheric deep white matter. No distribution or morphology specific to demyelinating disease. These foci statistically represent small vessel ischemic changes. Electronically signed by: David Gilliam MD 05/26/2024 01:25 PM [facility] Dictated By: David Gilliam MD Signed By: <Electronically signed by David Gilliam MD in OV> 05/26/24 1325 DD/ 1335 TD/TT: 05/23/24 1354 Insecticide Mixer: [facility] External Provider IMG MRI PROCEDURES Final Result * Albumin, Random Urine W/Creatinine (05/03/2023 8:36 AM EDT) Creatinine, Urine 54.13 mg/dL [facility] Microalbumin Urine 8.0 mg/L [facility] Microalbum Creatinine Ratio Ur 14.7 <30 ug/mg cr [facility] Comment:Albumin/Creatinine R atio Reference Ranges: Normal: < 30 ug/mg creatinine Microalbuminuria: 30 - 300 ug/mg creatinineClinical Albuminuria: > 300 ug/mg creatinine Urine 05/03/2023 8:36 AM EDT 05/03/2023 11:07 AM EDT [facility] LAB URINE ORDERABLES Final Re sult [facility] [address] [place] [address] [phone] * Lipid Panel, Standard (05/03/2023 8:36 AM EDT) Triglycerides 83 <150 mg/dL [facility] Comment:Desirable Triglyceri de: less than 150 mg/dLBorderline High Triglyceride 150-199 mg/dLHigh Triglyceride: 200-499 mg/dLVery High Triglyceride: greater than or equal to 5OO mg/dL Cholesterol 136 <200 mg/dL [facility] Comment:Desirable Cholestero l: less than 200 mg/dLBorderline High Cholesterol: 200-239 mg/dLHigh Cholesterol: greater than 239 mg/dL LDL Cholesterol Calculated 54 <100 mg/dL [facility] Comment:Desirable LDL: less than 100 mg/dLNear Optimal/Above Optimal LDL: 110- 129 mg/dLBorderline High LDL: 130-159 mg/dLHigh LDL: 160-189 mg/dLVery High LDL: greater than or equal to 190 mg/dL HDL Cholesterol 66 >40 mg/dL [facility] Comment:Desirable HDL: great er than 40 mg/dL Note: This HDL assay may give artificially low results in patients with liver disease. Blood Venous blood specimen / Unknown 05/03/2023 8:36 AM EDT 05/03/2023 11:13 AM EDT [facility] LAB BLOOD ORDERABLES Final Re sult [facility] [address] [place] [phone] * Hepatitis C Antibody with Reflex to HCV, RNA, Quantitative, Real-Time PCR (09/11/2022 3:09 PM EST) Hepatitis C Antibody NON-REACT VAHID NON-REACT VAHID OneTagt Index <0.02 <1.00 Done. [place] [facility] Comment: HCV antibody was non-reactive. There is no laboratory evidence of HCV infection. In most cases, no further action is required. However, if recent HCV exposure is suspected, a test for HCV RNA (test code 22414) is suggested. For additional information please refer to http://education.Educabilia/faq/AUL86k4 (This link is being provided for informational/ educational purposes only.) Blood Venous blood specimen / Unknown 09/11/2022 3:09 PM EST 09/11/2022 3:09 PM EST Narrative [facility] - 09/14/2022 1:32 PM EST FASTING:NO FASTING: NO [facility] ACTIVE DIRECTORY ADMINISTRATOR LAB BLOOD ORDERABLES Final Re sult [facility] [address] [facility], [place] [address] Done. [facility] [address], ([address]) [place] [address] from Last 3 Months or Most Recently Relevant to Health Maintenance Insurance [facility] Care Teams Table Games Supervisor Relationship Specialty Start Date End Date Abbi Saha FNP [address] [place] [id number] PCP - General Family Medicine 04/01/23 Noemi Felicia 05/08/24
--- OUTSIDE RECORDS SUMMARY | 2024-08-21 15:55 | XMS_ITS | Encounter Summary ---
Author Organization [employer] [facility] Address [address] [facility] 7t [place] [address] Care Team Providers Care Information Systems Professor Name Role Phone Sandy Torrez MD Primary Care Provider Unava ilable [facility] Primary Care Provider [phone] Gogo Palacio [facility] Primary Care Provider [phone] [facility] Primary Care Provider [phone] Encounter Details Date Type Department Care Team (Latest Contact Info) Description 07/17/2019 Abstract [facility] Dental, Provider, DDS Social History Tobacco Use Types Packs/Day Years Used Date Smoking Tobacco: Never Assessed Sex and Gender Information Value Date Recorded Sex Assigned at Male 05/18/2022 10:30 AM EDT Legal Sex Male 10:30 AM EDT Gender Identity Male 05/18/2022 10:30 AM EDT Sexual Orientation Straight 09/15/2022 2: 27 PM EST documented as of this encounter Plan of Treatment Upcoming Encounters Date Type Department Care Team (Late st Contact Info) Description 09/20/2024 11:30 AM EST Office Visit [facility] [address] [place] [address] [facility] [address] [place] [address] 09/27/2024 3:00 PM EDT Office Visit [facility] [address] [place] [address] Karla Ballesteros documented as of this encounter Visit Diagnoses Not on filedocumented in this encounter Care Teams Information Systems Professor Relationship Specialty Start Date End Date Sandy Torrez MD PCP - General Family Medicine 01/09/20 06/22/22 Maria AAbbi robb FNP [address] [place] [address] PCP - General Family Medicine 06/23/22 03/28/23 Gogo Palacio FNP [address] [place] [address] PCP - General Family Medicine 03/29/23 03/31/23 [place] F[place] [address] [place] [address] PCP - General Family Medicine 04[facility]01[facility]23 [facility] 05/08[facility]24 documented as of this encounter
--- OUTSIDE RECORDS SUMMARY | 2024-08-21 15:55 | XMS_ITS | Clinical Summary ---
Author Organization [facility] Address [address] [place] [address] Phone Care Team Providers Care Supervisor Ride Assembly Name Role Phone Unavailable Primary Care Provider Unavailabl e Encounters Date Type Department Care Team Description 2024 1:05 PM EST - 2024 11:59 PM EST Hospital Encounter [facility] PET Scan [address] [place] [address] Personal history of lung cancer Discharge Disposition: Home or Self Care from Last 3 Months Social History Tobacco Use Types Packs/Day Years Used Date Smoking Tobacco: Never Assessed Sex and Gender Information Value Date Recorded Sex Assigned at Not on file Gender Identity Not on file Sexual Orientation Not on file Plan of Treatment Health Maintenance Due Date Last Done Comments Diabetes: Annual GFR (Glomerular Filtration Rate) 1946 Diabetes: Annual Foot Exam 1956 Diabetes: Annual Retina Eye Exam 1956 RSV Immunization Patients 60+ Years Old (1 - 1-dose 75+ series) 2021 Diabetes: Annual Urine Albumin-Creatinine Ratio (uACR) 2024 Falls Risk Assessment 2024 Hypertension/CHF/CAD Annual BMP Blood Test 2024 Social Influencers of Health Screening 2024 Diabetes: Blood Sugar Control Test (HGBA1C) 08/27/2024 02/25/2024 Depression Screening 10/21/2024 10/22/2023 Cholesterol Screening (Lipid Panel) 05/03/2028 05/03/2023 DTaP,Tdap,and Td Vaccines (3 - Td or Tdap) 10/16/2032 10/16/2022, 05/07/2015 Pneumococcal Vaccine: 65+ Years Completed 05/22/2019, 05/14/2015 Zoster Vaccines Completed [...] on patient's age to complete this topic MMR Vaccines Aged Out No longer eligi ble based on patient's age to complete this topic Meningococcal ACWY Vaccine Aged Out N o longer eligible based on patient's age to complete this topic RSV Immunization Patients Under 20 months Aged Out No longer eligible based on patient's age to complete this topic Varicella Vaccines Aged Out No longer eligible based on patient's age to complete this topic Procedures Procedure Name Priority Date/Time Associated Diagnosis Comments PET CT SKULL TO MID THIGH INITIAL Routine 2024 2:45 PM EST Personal history of lung cancer from Last 3 Months Results * PET CT Skull to Mid Thigh Initial (2024 2:45 PM EST) Anatomical Region Laterality Modality Body Radiographic Brianna ging 05/31/2024 3:41 AM EST Impressions 05/31/2024 4:39 AM EST 1. ??FDG avid loculated left-sided pleural effusion with scattered opacities in the left lung demonstrating FDG activity 2. ??FDG avid mediastinal and left hilar lymphadenopathy likely representing metastatic disease 3. ??Nonenlarged left-sided lower cervical lymph node demonstrating mild FDG activity; possibly representing metastatic disease 4. ??No FDG avid abdominal or pelvic lymphadenopathy Please note: The CT was acquired at a low radiation dose settings. ??The images are of nondiagnostic quality and used solely for purposes of attenuation correction and slice localization for the PET scan. ??If a diagnostic CT study is desired it must be ordered separately. -------- FINAL REPORT -------- Dictated By: Jen Betts Dictated Date: 05/31/2024 03:41 ET Assigned Physician: Jen Betts Reviewed and Electronically Signed By: Jen Betts Signed Date: 05/31/2024 04:39 ET Workstation ID: [id number] Transcribed By: Self Edit Transcribed Date: 05/31/2024 03:41 ET Narrative 05/31/2024 4:39 AM EST INDICATION: Left pleural effusion in keeping with non-small cell lung cancer. ??Staging. TECHNIQUE: FDG PET-CT imaging was performed from the skull bases through the thighs in a single acquisition with data set reconstructed in axial, coronal, and sagittal planes at the computer workstation with fused data from both the PET imaging study and attenuation correction CT. The CT portion of the examination was done strictly for attenuation correction and is not a true diagnostic CT examination. DLP: ??412 mGy-cm Radiopharmaceutical: 10.5 mCi of F-18 FDG IV. Blood glucose: 179 mg/dl. COMPARISON: No priors are available for comparison. FINDINGS: HEAD AND NECK: Nonenlarged 6 mm short axis left level V lymph node SUV max 1.9. THORAX: Multiple FDG avid mediastinal lymph nodes. ??For example, left paratracheal conglomerate SUV max 5.1 and right paratracheal SUV max 6.1. ??Subcarinal SUV max 3.2. ??Anterior mediastinal lymph nodes/soft tissue attenuation SUV Max 3.1. ??Left hilar lymphadenopathy SUV max 5.9. Loculated left-sided pleural effusion with left-sided Pleurx catheter in position SUV Max 6.0. ??20 x 12 mm opacity subjacent to left-sided pleural thickening SUV max 4.9. ??16 x 10 mm opacity in the left lung apex SUV max 3.1 and 12 x 9 mm opacity in the left upper lobe SUV max 2.9. ??59 x 34 mm low-attenuation left-sided pleural lesion without significant FDG activity SUV max 1.7. ??Subjacent atelectasis in the lingula and left lower lobe without significant FDG activity SUV max 2.1. No FDG avid right-sided pleural effusion or pulmonary nodules. ABDOMEN/PELVIS: Nonspecific bowel uptake including ascending colon SUV max 3.5 as well as the rectum and sigmoid colon SUV Max 6.4. No FDG avid abdominal or pelvic lymphadenopathy. Right adrenal gland SUV max 2.4 and left adrenal gland SUV max 2. ??Nonspecific FDG activity involving the gallbladder SUV Max 3.2. ??Left sided parapelvic cysts without significant FDG activity. ??Small hiatal hernia. ??Distended urinary bladder with urinary bladder diverticulum. ??Right-sided fat-containing inguinal hernia. ??Hydroceles. MUSCULOSKELETAL: No abnormal FDG activity. ??Physiologic muscle activity. Procedure Note Jen Betts MD - 05/31/2024 INDICATION: Left pleural effusion in keeping with non-small cell lungcancer. Staging. TECHNIQUE: FDG PET-CT imaging was performed from the skull bases throughthe thighs in a single acquisition with data set reconstructed in axial,coronal, and sagittal planes at the computer workstation with fused datafrom both the PET imaging study and attenuation correction CT. The CTportion of the examination was done strictly for attenuation correctionand is not a true diagnostic CT examination. DLP: 412 mGy-cm Radiopharmaceutical: 10.5 mCi of F-18 FDG IV. Blood glucose: 179 mg/dl. COMPARISON: No priors are available for comparison. FINDINGS: HEAD AND NECK: Nonenlarged 6 mm short axis left level V lymph node SUV max1.9. THORAX: Multiple FDG avid mediastinal lymph nodes. For example, leftparatracheal conglomerate SUV max 5.1 and right paratracheal SUV max 6.1.Subcarinal SUV max 3.2. Anterior mediastinal lymph nodes/soft tissueattenuation SUV Max 3.1. Left hilar lymphadenopathy SUV max 5.9. Loculated left-sided pleural effusion with left-sided Pleurx catheter inposition SUV Max 6.0. 20 x 12 mm opacity subjacent to left-sided pleuralthickening SUV max 4.9. 16 x 10 mm opacity in the left lung apex SUV max3.1 and 12 x 9 mm opacity in the left upper lobe SUV max 2.9. 59 x 34 mmlow-attenuation left-sided pleural lesion without significant FDG activitySUV max 1.7. Subjacent atelectasis in the lingula and left lower lobewithout significant FDG activity SUV max 2.1. No FDG avid right-sided pleural effusion or pulmonary nodules. ABDOMEN/PELVIS: Nonspecific bowel uptake including ascending colon SUV max3.5 as well as the rectum and sigmoid colon SUV Max 6.4. No FDG avid abdominal or pelvic lymphadenopathy. Right adrenal gland SUV max 2.4 and left adrenal gland SUV max 2.Nonspecific FDG activity involving the gallbladder SUV Max 3.2. Leftsided parapelvic cysts without significant FDG activity. Small hiatalhernia. Distended urinary bladder with urinary bladder diverticulum.Right-sided fat-containing inguinal hernia. Hydroceles. MUSCULOSKELETAL: No abnormal FDG activity. Physiologic muscle activity. IMPRESSION: 1. FDG avid loculated left-sided pleural effusion with scatteredopacities in the left lung demonstrating FDG activity 2. FDG avid mediastinal and left hilar lymphadenopathy likelyrepresenting metastatic disease 3. Nonenlarged left-sided lower cervical lymph node demonstrating mildFDG activity; possibly representing metastatic disease 4. No FDG avid abdominal or pelvic lymphadenopathy Please note: The CT was acquired at a low radiation dose settings. The images are ofnondiagnostic quality and used solely for purposes of attenuationcorrection and slice localization for the PET scan. If a diagnostic CTstudy is desired it must be ordered separately. -------- FINAL REPORT -------- Dictated By: Jen Betts Dictated Date: 05/31/2024 03:41 ET Assigned Physician: Jen Betts Reviewed and Electronically Signed By: Jen Betts Signed Date: 05/31/2024 04:39 ET Workstation ID: [id number] Transcribed By: Self Edit Transcribed Date: 05/31/2024 03:41 ET Louisa EUBANKS [place] PROCEDURES from Last 3 Months
--- OUTSIDE RECORDS SUMMARY | 2024-08-21 15:55 | XMS_ITS | Encounter Summary ---
Author Organization [employer] Address [address] [facility] 7t [place] [address] Care Team Providers Care Manager Gift Name Role Phone [place] [facility] Primary Care Provider [phone] Encounter Details Date Type Department Care Team ([facility] st Contact Info) Description 08/11/2023 Orders Only [facility] [address] [place], [place] [phone] [place] [facility] [address] [place], [place] [phone] Sensorineural hearing loss (SNHL) of both ears; Lower urinary tract symptoms (LUTS); Gait instability; Type 2 diabetes mellitus with hyperglycemia, without long-term current use of insulin ([facility]); Hammertoes of both feet; Diminished pulses in lower extremity; Facial skin lesion Social History Tobacco Use Types Packs/Day Years Used Date Smoking Tobacco: Never Smokeless Tobacco: Never Alcohol Use Standard Drinks/Week Comments Never 0 (1 standard drink = 0.6 oz pur e alcohol) Depression Answer Date Recorded Patient Health Questionnaire-9 Score 0 07/02/2023 Patient Health Questionnaire-9 Score 0 07/02/2023 Last PHQ-9: Questionnaire Data Not on file 1 09/02/2022 Housing Stability Answer Date Recorded What is your housing situation today? I have elza mosley 05/03/[address] you li ve. Do you have problems with any of the following? None of the above 05/03/2023 Food Insecurity Answer Date Recorded Within the past 12 months, y ou worried that your food would run out before you got money to buy more: Never True 05/03/2023 Within the past 12 months,th e food you bought just didn't last and you didn't have enough money to get more: Never True Transportation Answer Date Recorded In the past 12 months, has l ack of transportation kept you from medical appts, meetings, work or from getting things needed for daily living? No 05/03/2023 Utilities Answer Date Recorded In the past 12 months, has t he electric, gas, oil or water company threatened to shut off services in your home? No 05/03/2023 Depression Answer Date Recorded Patient Health Questionnaire-2 Score 0 07/02/2023 Sex and Gender Information Value Date Recorded Sex Assigned at Male 05/18/2022 10:30 AM EDT Legal Sex Male 10:30 AM EDT Gender Identity Male 05/18/2022 10:30 AM EDT Sexual Orientation Straight 09/15/2022 2: 27 PM EST documented as of this encounter Plan of Treatment Upcoming Encounters Date Type Department Care Team (Late st Contact Info) Description 09/20/2024 11:30 AM EST Office Visit [facility] [address] [place] [address] [facility] [address] [place] [address] 09/27/2024 3:00 PM EDT Office Visit [facility] [address] [place] [address] Karla Ballesteros documented as of this encounter Procedures Procedure Name Priority Date/Time Associated Diagnosis Comments AMB REFERRAL TO ENT Routine 10/14/2023 Sensorineural hearing loss (SNHL) of both ears documented in this encounter Results * Referral to ENT (10/14/2023) [facility] OUTPATIENT REFERRAL ORDERABLE S Final Result documented in this encounter Visit Diagnoses Diagnosis Sensorineural hearing loss (SNHL) of both ears Lower urinary tract symptoms (LUTS) Gait instability Abnormality of gait Type 2 diabetes mellitus with hyperglycemia, without long-term current use of insulin ([facility]) Hammertoes of both feet Diminished pulses in lower extremity Facial skin lesion documented in this encounter Additional Health Concerns Assessment Noted Time PHQ-9 Depression Total Score: 0 07/02/20 9:13 AM EST documented as of this encounter Care Teams Manager Gift Relationship Specialty Start Date End Date Abbi Saha FNP [address] [facility] [place] [address] PCP - General Family Medicine 04/01/23 Noemi GARCIA 05/08/24 documented as of this encounter
--- OUTSIDE RECORDS SUMMARY | 2024-08-21 15:55 | XMS_ITS | Encounter Summary ---
Author Organization [employer] Address [address] [facility] 7t [place] [address] Care Team Providers Care Franchise Field Consultant Name Role Phone [place] [facility] Primary Care Provider [phone] Reason for Visit * Reason Comments Med Refill Encounter Details Date Type Department Care Team ([facility] Contact Info) Description 08/21/2024 Refill [facility] [address] [place], [place] [phone] [facility] [address] [place] [address] Social History Tobacco Use Types Packs/Day Years [...] Description 09/20/2024 11:30 AM EST Office Visit [facility] [address] [place] [address] [place] [facility] [address] [place] [address] 09/27/2024 3:00 PM EDT Office Visit [facility] ADULT DENTAL [address] [place] [address] Karla Ballesteros documented as of this encounter Visit Diagnoses Not on filedocumented in this encounter Additional Health Concerns Assessment Noted Time PHQ-9 Depression Total Score: 0 07/05/20 24 11:25 AM EST documented as of this encounter Care Teams Franchise Field Consultant Relationship Specialty Start Date End Date BernAbbi [facility] [address] [place] [address] PCP - General Family Medicine 04/01/23 Noemi [facility] 05/08/24 documented as of this encounter
--- OUTSIDE RECORDS SUMMARY | 2024-08-21 15:55 | XMS_ITS | Encounter Summary ---
Author Organization [employer] Address [address] [facility] 7 [place] [address] Care Team Providers Care Manager Pharmaceutical Name Role Phone [place] [facility] Primary Care Provider Reason for Visit * Reason Onset Date Comments refill 08/21/2024 Encounter Details Date Type Department Care Team ([facility] st Contact Info) Description 08/21/2024 Refill [facility] [address] [place], [place] [phone] [place] [facility] [address] [place] [address] Social History Tobacco Use Types Packs/Day Years [...] as of this encounter Miscellaneous Notes * Addendum Note - Guillaume Collins RN - 08/21/2024 3:09 PM ESTAddended by: GUILLAUME COLILNS on: 08/21/2024 03:09 PM Modules accepted: Orders * Telephone Encounter - Guillaume Collins RN - 08/21/2024 2:57 PM EST TC placed to [facility] pharmacy who reports the patient last received lancets on 07/28/24 and patient is supposed to be testing BID therefore 1 box should last 50 days and patient would not be due for another 3 weeks. RN called patient and spoke to daughter Maya (on HIPAA) who reports they did not receive lancets on 07/28/24. RN placed daughter on hold and called pharmacy who reports they were dispensed with the patients medbox in a bag. RN informed daughter who reports she is not home right now to check however she will check when she arrives home and return call to [facility] if lancets are not in bag.Daughter is requesting a refill on test strips as they have been using the patients wifes test strips. RN will pend to PCP. * Telephone Encounter - Val Orr - 08/21/2024 2:39 PM EST Pt daughter walked in requesting refill on Lancets. documented in this encounter Plan of Treatment Upcoming Encounters Date Type Department Care Team (Late st Contact Info) Description 09/20/2024 11:30 AM EST Office Visit [facility] [address] [place] [address] Abbi Saha FNP [address] [place] [address] 09/27/2024 3:00 PM EDT Office Visit [facility]ULT [facility] [address] [place] [address] Karla Ballesteros documented as of this encounter Visit Diagnoses Not on filedocumented in this encounter Additional Health Concerns Assessment Noted Time PHQ-9 Depression Total Score: 0 07/05/20 24 11:25 AM EST documented as of this encounter Care Teams Manager Pharmaceutical Relationship Specialty Start Date End Date Abbi Saha FNP [address] [place] [address] PCP - General Family Medicine 04/01/23 Noemi CORTESA 05/08/24 documented as of this encounter
--- OUTSIDE RECORDS SUMMARY | 2024-08-21 15:55 | XMS_ITS | Clinical Summary ---
Author Organization [facility] Address [address] [facility] [address] [place] [address] Phone Care Team Providers Care Systems Accountant Name Role Phone Unavailable Primary Care Provider Unavailabl e Allergies No known active allergies Medications Multiple Vitamin (MULTIVITAMIN ADULT PO) Take 1 capsule by mouth 1 (one) time each day Active acetaminophen (TYLENOL) 325 MG tablet Take 2 tablets by mouth if needed Active atorvastatin (LIPITOR) 10 MG tablet Take 10 mg by mouth at bed time 1 Active cholecalciferol (VITAMIN D-3) 50 MCG (1999 UT) capsule TAKE 1 CAPSULE BY MOUTH EVERYDAY AT NOON 1 Active Farxiga 10 MG tablet Take 1 tablet by mouth 1 Active Diclofenac Sodium 1 % gel APPLY 2 GRAMS TOPICALLY AFFECTED AREA(S) FOUR TIMES DAILY 1 Active FeroSul 325 (65 Fe) MG tablet Take 1 tablet by mouth 1 Active metFORMIN (GLUCOPHAGE) 1000 MG tablet TAKE 1 TABLET BY MOUTH TWICE DAILY IN THE MORNING AND IN THE EVENING WITH FOOD 1 Active sildenafil (VIAGRA) 100 MG tablet TAKE 1 TABLET BY MOUTH 30 MINUTES TO 4 HOURS BEFORE SEXUAL ACTIVITY NEEDED 1 Active losartan (COZAAR) 25 MG tablet Take 1 tablet by mouth 1 (one) time each day 2 Active SITagliptin (JANUVIA) 25 MG tablet Take 25 mg by mouth 1 (one) time each day Active NIFEdipine CC (ADALAT CC) 30 MG 24 hr tablet Take 30 mg by mouth 1 (one) time each day before breakfast Do not crush, chew, or split. Active Lidocaine & Adhesive Sheet 5 % (Patch) kit Apply topically Active omeprazole OTC (PriLOSEC OTC) 20 MG EC tablet Take 20 mg by mouth 1 (one) time each day Do not crush, chew, or split. Active terazosin (HYTRIN) 5 MG capsule Take 5 mg by mouth every night Active Active Problems Problem Noted Date Diagnosed Date Hypertensive disorder 03/04/2021 Hyponatremia 03/04/2021 Overview (11/23/2023): Most likely due to hydrochlorothiazide-induced decreased free water excretion. Off HCTZ now Most recent NA level WNL at 136 as of 10/22/23 Will continue to monitor Family History Medical History Relation Comments Diabetes Father Cancer Mother cervical Diabetes Mother Hypertension Mother Diabetes Sibling 1 Hypertension Sibling 2 Relation Status Comments Father Unknown Mother Sibling 1 Sibling 2 Social History Tobacco Use Types Packs/Day Years Used Date Smoking Tobacco: Never Smokeless Tobacco: Never Tobacco Cessation:Counseling Given: No Alcohol Use Standard Drinks/Week Comments Yes 0 (1 standard drink = 0.6 oz pure alcohol) Alcoholic Drinks/day: Occasional social drink Sex and Gender Information Value Date Recorded Sex Assigned at Not on file Legal Sex Male 4:54 PM EST Gender Identity Not on file Sexual Orientation Not on file Last Filed Vital Signs Vital Sign Reading Time Taken Comments Blood Pressure 112/62 11/23/2023 2:04 PM EDT Pulse 74 11/23/2023 2:04 PM EDT Temperature - - Respiratory Rate - - Oxygen Saturation 98% 11/11/2022 1:52 PM EDT Inhaled Oxygen Concentration - - Weight 69.1 kg (152 lb 6.4 oz) 11/23/2023 2:04 P M EDT Height 157.5 cm (5' 2 ) 11/11/2022 1:52 PM EDT Body Mass Index 27.87 11/11/2022 1:52 PM EDT Plan of Treatment Upcoming Encounters Date Type Department Care Team (Late st Contact Info) Description 11/22/2024 11:45 AM EDT Office Visit [facility] [address] [address] Rosanna Zamudio ARNP [address] [address] Health Maintenance Due Date Last Done Comments Diabetes: Ophthalmology Exam 11/11/2022 Diabetes: Pedal Pulse Checked 11/11/2022 Diabetes: Sensory Foot Exam 11/11/2022 Diabetes: Visual Foot Exam 11/11/2022 Diabetes: Hemoglobin A1C 01/21/2024 024, 09/11/2022 Influenza Vaccine (#1) 2024 9, 06/15/2018, 04/12/2017 Pneumococcal Vaccine: 65+ Years Completed 05/22/2019, 05/14/2015 Hepatitis B Vaccine Aged Out No longe r eligible based on patient's age to complete this topic Insurance
--- OUTSIDE RECORDS SUMMARY | 2024-08-21 15:55 | XMS_ITS | Encounter Summary ---
Author Organization [employer] Address [address] [facility] 7t [place] [address] Care Team Providers Care Charging Manipulator Name Role Phone [place] [facility] Primary Care Provider [phone] Reason for Visit * Reason Comments Med Refill Encounter Details Date Type Department Care Team ([facility] Contact Info) Description 07/16/2024 Refill [facility] [address] [place], [place] [phone] [facility] 230 [place], [place] [phone] Type 2 diabetes mellitus with hyperglycemia, without long-term current use of insulin ([facility]) Social History Tobacco Use Types Packs/Day Years [...] Description 09/20/2024 11:30 AM EST Office Visit [facility] [address] [place] [id number] Abbi Saha FNP [address] [place] [address] 09/27/2024 3:00 PM EDT Office Visit [facility] ADULT DENTAL [address] [place] [address] Karla Ballesteros documented as of this encounter Visit Diagnoses Diagnosis Type 2 diabetes mellitus with hyperglycemia, without long-term current use of insulin ([facility]) documented in this encounter Additional Health Concerns Assessment Noted Time PHQ-9 Depression Total Score: 0 07/05/20 24 11:25 AM EST documented as of this encounter Care Teams Charging Manipulator Relationship Specialty Start Date End Date Abbi Saha FNP [address] [place] [id number] PCP - General Family Medicine 04/01/23 Noemi CORTESA 05/08/24 documented as of this encounter
--- OUTSIDE RECORDS SUMMARY | 2024-08-21 15:55 | XMS_ITS | Encounter Summary ---
Author Organization [employer] [facility] Address [address] [facility] 7t [place] [address] Care Team Providers Care Salt Plant Operator Name Role Phone Sandy Torrez MD Primary Care Provider Unava ilable [facility] Primary Care Provider [phone] Gogo Palacio [facility] Primary Care Provider [phone] [facility] Primary Care Provider [phone] Encounter Details Date Type Department Care Team (Latest Contact Info) Description 06/23/2021 Abstract [facility] CONVERSIONS Dental, Provider, DDS Social History Tobacco [...] Description 09/20/2024 11:30 AM EST Office Visit [facility] [address] [place] [address] [facility] [address] [place] [address] 09/27/2024 3:00 PM EDT Office Visit [facility] ADULT DENTAL [address] [place], [place] [phone] Karla Ballesteros documented as of this encounter Visit Diagnoses Not on filedocumented in this encounter Care Teams Salt Plant Operator Relationship Specialty Start Date End Date Sandy Torrez MD PCP - General Family Medicine 01/09/20 06/22/22 Abbi Saha FNP [address] [place] [address] PCP - General Family Medicine 06/23/22 03/28/23 Gogo Palacio FNP [address] [place] [address] PCP - General Family Medicine 03/29/23 03/31/23 Abbi Saha FNP [address] [place] [address] PCP - General Family Medicine 04/01/23 [place] [facility] 05/08/24 documented as of this encounter
--- OUTSIDE RECORDS SUMMARY | 2024-08-21 15:55 | XMS_ITS | Encounter Summary ---
Author Organization [employer] Address [address] [facility] 7 [place] [address] Care Team Providers Care Tissue Recovery Technician Name Role Phone [place] [facility] Primary Care Provider [phone] Reason for Visit * Reason Onset Date Comments [employer] Patient Care Solution 08/16/2024 Transparent film >16<=48 in Encounter Details Date Type Department Care Team ([facility] st Contact Info) Description 08/16/[address] [facility] [address] [place], [place] [phone] [facility] [address] [place], [place] [phone] [employer] Patient Care Solution (Transparent film >16<=48 in) Social History Tobacco Use Types Packs/Day Years [...] Telephone Encounter - Shadia Alexander MA - 08/16/2024 9:36 AM EST Received medical necessity form from [employer] for transparent film. Form has been placed on PCP's desk for signature. documented in this encounter Plan of Treatment Upcoming Encounters Date Type Department Care Team (Late st Contact Info) Description 09/20/2024 11:30 AM EST Office Visit [facility] [address] [place] [address] Maria A, Abbi, SENIOR RESTAURANT MANAGER [address] [place] [address] 09/27/2024 3:00 PM EDT Office Visit [facility] ADULT DENTAL [address] [place] [address] Karla Ballesteros documented as of this encounter Visit Diagnoses Not on filedocumented in this encounter Additional Health Concerns Assessment Noted Time PHQ-9 Depression Total Score: 0 07/05/20 11:25 AM EST documented as of this encounter Care Teams Tissue Recovery Technician Relationship Specialty Start Date End Date Maria AAbbi robb FNP [address] [place] [address] [place] [address] PCP - General Family Medicine 04/01/23 Noemi GARCIA 05/08/24 documented as of this encounter
== END 2024-08-21 13:26 | disposition home or self-care (01) ==
LOC: HO.LAB 13:25
PROVIDERS: PCP Registered Nurse; Visit Provider Surgery
DX: Z93.8 Other artificial opening status (principal)

== ENCOUNTER 2024-08-21 13:25 | Outpatient (REF) | payer OTHER, SELFPAY | END 2024-08-21 13:26 | disposition home or self-care (01) | LOC: HO.LNP 13:25 | PROVIDERS: Visit Provider Surgery | DX: Z93.8 Other artificial opening status (principal) | CPT/HCPCS: 87070; 87077; 87186; 87205 ==

== ENCOUNTER 2024-08-21 13:25 | Outpatient (AMB) | payer OTHER, SELFPAY ==
--- NOTE | 2024-08-21 13:29 | MHC.OFFVIS ---
Vital Signs 08/21/24 13:35 Height 5 ft 2 in Weight 140 lb BMI 25.6 BP 147/67 H Blood Pressure Location Rt brachial Position Sitting Pulse 103 H Intake Visit Reasons: Pleurx catheter removal Intake Note: Patient referred by Dr. Morales for Pleurx catheter removal. Patient c/o: Denies infection, redness, pain. Speech Therapist Early Intervention Required: No Accompanied by: daughter Maya Drew Allergies No Known Allergies [No Known Allergies*] Allergy (Verified 08/21/24 13:34) Medication List - Last Reconciled 08/21/24 by Memo Lainez MD acetaminophen 650 mg PO Q6H PRN atorvastatin 10 mg PO DAILY blood sugar diagnostic As directed cholecalciferol (vitamin D3) 50 mcg PO DAILY dapagliflozin propanediol (Farxiga) 10 mg PO DAILY ferrous sulfate (iron) 325 mg PO DAILY lancets As directed ucxjix-fltjzugv-mrejezy 24,000-76,000 -120,000 unit (Creon) 2 caps PO TID 30 days losartan 25 mg PO BEDTIME metformin 1,000 mg PO BID multivitamin 1 tab PO DAILY nifedipine ER 30 mg PO BEDTIME omeprazole 20 mg PO BID@0630,1630 oxycodone 5 mg PO Q4H PRN psyllium husk (Metamucil) 1 tsp PO DAILY sildenafil (Viagra) 100 mg PO DAILY PRN 90 days sitagliptin phosphate (Januvia) 25 mg PO DAILY terazosin 5 mg PO BEDTIME 90 days walker Folding Front wheeled walker with seat HPI Comments Details: Patient was with the family member. He apparently has had no output from his PleurX catheter for the last several weeks time and would like to have it removed. He is being followed by Oncology for his lung cancer. [facility] Medical History Lung mass GERD (gastroesophageal reflux disease) Exocrine pancreatic insufficiency High cholesterol Anemia Pleural hemorrhage Diverticulosis Hyponatremia Acute hyponatremia Colon cancer screening Erectile dysfunction Gastritis COVID-19 virus infection Hydrocele Cataract Hypercholesteremia Diabetes BPH (benign prostatic hyperplasia) Hypertension Surgical History Hx of colonoscopy History of bilateral knee replacement History of prostate surgery Family History Father Diabetes Mother Diabetes Uterus cancer Mother Cancer Social History Household Members: Spouse Housing: Apartment Housing Other:: housing apartment Are you a primary health care facilities inspector to a significant other at home: No Do you presently have visiting nurse or other home services: No Alcohol intake: never Comment: camera placed as pt is impulsive, attempts to get OOB. Hx falls recently Patient Tobacco Use Status: Never used Tobacco service: No Current occupational status: retired Current occupation: right handed Gender identity: Male Physical Exam Vital Signs: Last Vital Signs Pulse 103 H 08/21/24 13:35 BP 147/67 H 08/21/24 13:35 BMI result Body Mass Index 25.6 Chest Other: Left PleurX catheter intact. Some permanent drainage at skin site. Office Procedures Excision Details: Risks, benefits, and alternatives of left PleurX catheter removal were reviewed with the patient and his family member which included but not limited to bleeding, infection, numbness, pain, scarring and wished to proceed. All questions answered. After appropriate positioning, patient underwent 1% lidocaine and Betadine prep. Suture holding the catheter was uneventfully removed and the cuff was dissected free and PleurX catheter in its entirety extracted. Patient had some purulence along the soft tissue trach which was cultured. This was milked and no further purulence were retrieved. Dressing applied. Patient tolerated procedure well. Procedure code (CPT) selection complete Office Meds lidocaine 1 %-epinephrine 1:100,000 injection solution Performing Provider: Memo Lainez MD Performing Location: [facility] General Surgeons Administered by: Memo Lainez MD on 08/21/24 13:54 Dose Route Admin Location Dispensed Lot Number Expiration Date [facility] Purchasing Clerk 10 mL Infiltration 10 mL Assessment & Plan Assessment & Plan (1) S/P chest tube placement: Code(s): Z93.8 - Other artificial opening status Category: Surgical Plan: Patient has been given local instructions, antibiotics, chest x-ray ordered, and he will see me as directed or p.r.n.. All questions answered Orders: Orders AMB Excision Today Z93.8 - Other artificial opening status XR chest 2V Today Z93.8 - Other artificial opening status Medications: New cephalexin 500 mg PO TID 30 caps 0RF Coding Level of Care Code Est Pt Level 5 (93397) Diagnoses S/P chest tube placement Z93.8
[2024-08-21 13:35] VITALS: BP 147/67; PULSE 103; BMI 25.6
== END 2024-08-21 13:54 | disposition home or self-care (01) ==
PROVIDERS: PCP Registered Nurse; Visit Provider Surgery
DX: Z45.2 Encounter for adjustment and management of vascular access device (principal)
CPT/HCPCS: 32552; 99214

== ENCOUNTER 2024-08-22 12:44 | Outpatient (REF) | payer OTHER, SELFPAY ==
--- NOTE | ~2024-08-22 | XR_ITS ---
CLINICAL HISTORY: Z93.8 - Other artificial opening status 1 view chest x-ray Comparison: 05/05/2024 Findings: Decreased left pleural effusion since prior film. Improving left basilar consolidation as well. Residual pleural fluid and consolidation noted. Right lung clear. Heart size normal. No acute bony abnormalities. Impression: Residual left pleural effusion and basilar consolidation This document has been electronically signed by: Vinayak Salguero MD on 08/22/2024 19:06:55
--- OUTSIDE RECORDS SUMMARY | 2024-08-22 13:10 | XMS_ITS | Encounter Summary ---
Author Organization [employer] Address [address] [facility] 7t [place] [address] Care Team Providers Care Lead Worker Of Housekeeping And Laundry Name Role Phone [place] [facility] Primary Care Provider [phone] Reason for Visit * Reason Comments Med Refill Encounter Details Date Type Department Care Team ([facility] Contact Info) Description 08/21/2024 Refill [facility] [address] [place], [place] [phone] [facility] [address] [place] [address] Social History Tobacco Use Types Packs/Day Years [...] EST Office Visit [facility] [address] [place] [address] [facility] [address] [place] [address] 09/27/2024 3:00 PM EDT Office Visit [facility] ADULT DENTAL [address] [place] [address] Karla Ballesteros documented as of this encounter Visit Diagnoses Not on filedocumented in this encounter Additional Health Concerns Assessment Noted Time PHQ-9 Depression Total Score: 0 07/05/20 24 11:25 AM EST documented as of this encounter Care Teams Lead Worker Of Housekeeping And Laundry Relationship Specialty Start Date End Date [place] [facility] [address] [place] [address] PCP - General Family Medicine 04/01/23 Noemi [facility] 05/08/24 documented as of this encounter
--- OUTSIDE RECORDS SUMMARY | 2024-08-22 13:10 | XMS_ITS | Clinical Summary ---
Author Organization [facility] Address [address] [facility] [address] 0 [place] [address] Phone Care Team Providers Care Power Tool Repair Technician Name Role Phone Unavailable Primary Care Provider [...] Visit [facility] [address] [address] Rosanna Zamudio ARNP [address] [address] Health Maintenance Due Date Last [...]
--- OUTSIDE RECORDS SUMMARY | 2024-08-22 13:10 | XMS_ITS | Encounter Summary ---
Author Organization [employer] [facility] Address [address] [facility] 7t [place] [address] Care Team Providers Care Skip Miner Name Role Phone Sandy Torrez MD Primary Care Provider Unava ilable [facility] Primary Care Provider [phone] Gogo Palacio [facility] Primary Care Provider [phone] [facility] Primary Care Provider [phone] Encounter Details Date Type Department Care Team (Latest Contact Info) Description 06/23/2021 Abstract [facility] CONVERSIONS Dental, Provider, DDS Social History Tobacco [...] 11:30 AM EST Office Visit [facility] MEDICINE [address] [place] [address] [facility] [address] [place] [address] 09/27/2024 3:00 PM EDT Office Visit [facility] ADULT DENTAL [address] [place], [place] [phone] Karla Ballesteros documented as of this encounter Visit Diagnoses Not on filedocumented in this encounter Care Teams Skip Miner Relationship Specialty Start Date End Date Sandy Torrez MD PCP - General Family Medicine 01/09/20 06/22/22 Abbi Saha FNP [address] [place] [address] PCP - General Family Medicine 06/23/22 03/28/23 Gogo Palacio FNP [address] [place] [address] PCP - General Family Medicine 03/29/23 03/31/23 Abbi Saha FNP [address] [place] [address] PCP - General Family Medicine 04/01/23 Organ [facility] 05/08/24 documented as of this encounter
--- OUTSIDE RECORDS SUMMARY | 2024-08-22 13:10 | XMS_ITS | Encounter Summary ---
Author Organization [employer] [facility] Address [address] [facility] 7t [place] [address] Care Team Providers Care Automotive Tire Worker Name Role Phone Sandy Torrez MD Primary Care Provider Unava ilable [facility] Primary Care Provider [phone] Gogo Palacio [facility] Primary Care Provider [phone] [facility] Primary Care Provider [phone] Encounter Details Date Type Department Care Team (Latest Contact Info) Description 07/17/2019 Abstract [facility] CONVERSIONS Dental, Provider, DDS Social History [...] Description 09/20/2024 11:30 AM EST Office Visit [facility] [address] [place] [address] [facility] [address] [place] [address] 09/27/2024 3:00 PM EDT Office Visit [facility] ADULT DENTAL [address] [place] [address] Karla Ballesteros documented as of this encounter Visit Diagnoses Not on filedocumented in this encounter Care Teams Automotive Tire Worker Relationship Specialty Start Date End Date Sandy Torrez MD PCP - General Family Medicine 01/09/20 06/22/22 Maria AAbbi robb FNP [address] [place] [address] PCP - General Family Medicine 06/23/22 03/28/23 Gogo Palacio FNP [address] [place] [address] PCP - General Family Medicine 03/29/23 03/31/23 [place] robb FNP [address] [place] [address] PCP - General Family Medicine 04/01/23 [facility] 05/08/24 documented as of this encounter
--- OUTSIDE RECORDS SUMMARY | 2024-08-22 13:10 | XMS_ITS | Clinical Summary ---
Author Organization [employer] Address [address] [facility] 7t [place] [address] Care Team Providers Care Channel Lip Stiffener Insoles Name Role Phone Abbi Saha [facility] Primary Care Provider [phone] Allergies No known active allergies Medications Diclofenac Sodium 1 % gel Apply 2 g topically every 6 (six) hours. 06/06/20 21 Active Lidocaine 4 % patch Apply to the affected area up to 3 times daily as needed Active sildenafil (Viagra) 100 MG tablet Take 1 tablet by mouth at bed time. Active Blood Glucose Monitoring Suppl (TextCorner Verio) w/Device kitIndications: Type 2 diabetes mellitus without complication, without long-term current use of insulin (CMS/[facility]) 1 kit before breakfast and before evening meal. 1 kit 06/24/20 22 Active acetaminophen (Tylenol) 325 MG tablet Take 2 tablets by mouth. Active cholecalciferol (Vitamin D-3) 50 MCG (2000 UT) capsule TAKE 1 CAPSULE BY MOUTH EVERYDAY AT NOON 11/27/19 22 Active ferrous sulfate 325 (65 Fe) MG tablet Take 1 tablet by mouth. 12/19/19 21 Active glipiZIDE (Glucotrol) 10 MG tablet Take 2 tablets by mouth. Active traMADol (Ultram) 50 MG tablet Take 50 mg by mouth every 8 (eight) hours if needed. 08/07/19 23 Active tamsulosin (Flomax) 0.4 MG 24 hr capsule Take 1 capsule (0.4 mg) by mouth in the morning. 30 capsule 1 04/02/20 23 Active Multiple Vitamin (Multivitamin) tabletIndicatio ns:Type 2 diabetes mellitus with hyperglycemia, without long-term current use of insulin (CMS/HCC) TAKE 1 TABLET BY MOUTH EVERY EVENING WITH FOOD 90 tablet 3 08/30/19 24 Active Lancets (OneTouch Delica Plus [id number]) miscIndications :Elevated blood sugar TEST BLOOD SUGAR TWICE DAILY 100 each 11 09/21/19 24 Active terazosin (Hytrin) 5 MG capsule Take 5 mg by mouth at bedtime. 08/09/19 24 Active psyllium (Metamucil Smooth Texture) 58.6 % powderIndicatio ns:Type 2 diabetes mellitus with hyperglycemia, without long-term current use of insulin (CMS/HCC) Take 5.12 g (3 g of fiber) by mouth Once per day. 283 g 11 02/25/20 24 025 Active atorvastatin (Lipitor) 10 MG tablet TAKE 1 TABLET BY MOUTH EVERY EVENING 90 tablet 2 04/19/20 24 Active oxyCODONE (Roxicodone) 5 MG immediate release tablet 5 mg. 05/06/20 24 Active Creon 98359-54104 units capsule 2 capsules. 04/19/20 24 Active Farxiga 10 MGIndications:T ype 2 diabetes mellitus with other specified complication, unspecified whether correction insulin use (CMS/HCC) TAKE 1 TABLET BY MOUTH EVERY MORNING 90 tablet 1 06/14/20 24 Active omeprazole (PriLOSEC) [address] capsuleIndicati ons:Dyspepsia TAKE 1 CAPSULE BY MOUTH TWICE DAILY 60 capsule 1 06/23/20 24 Active glucose blood (OneTouch Verio) test strip TEST BLOOD SUGAR TWICE A DAY 100 each 11 08/21/19 25 Active glucose blood (OneTouch Verio) test strip TEST BLOOD SUGAR TWICE A DAY 100 each 11 04/16/20 23 025 Discontinued(Re order (will not trigger notification to Pharmacy)) Active Problems Problem Noted Date Diagnosed Date 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 CT chest [...] of metastatic disease. PET-CT performed 05/30/24 at [facility] showed FDG avid loculated left-sided pleural effusion [...] maintenance 10/16/2022 Overview (10/25/2022): Healthcare Maintenance: C-scope: [facility] 2021, needs records PSA: Per urology HCV Screen: Neg 09/10 HIV Screen: Neg 09/10 Immunizations: UTD ?? Weight loss 09/17/2022 Diabetes 09/11/2022 Overview (02/25/2024): Farxiga 10mg daily Metformin 1000mg b.i.d Januvia 25 mg daily Foot Exam: Risk 0; followed by podiatry (chadiwck) Eye Exam: [facility] Eye care Statin: Yes ASA: No [...] labs today ?? Has upcoming appointment for [facility] eye care Assessment & Plan (10/25/2022 [...] (05/19/2023 11:14 AM EDT): ?? Compliant with [facility] agreement ?? Only using tramadol 1x/week due to concern re addiction ?? Advised patient OK to take tramadol at bedtime nightly if pain interfering with sleep ?? Continue acetaminophen PRN during day ?? Continue lidocaine patch ?? Continue topical diclofenac gel ?? Continue acupuncture ?? PT referral for general gait instability Assessment & Plan (10/25/2022 1:09 PM EDT): ?? Will refer to [facility] RN Hypertensive disorder 04/12/2017 Overview (02/25/2024): Losartan [...] Encounters Date Type Department Care Team Description 08/22/2024 Refill [facility] MEDICINE [address] [place] [address] LittletonAbbi FNP Type 2 diabetes mellitus with hyperglycemia, without long-term current use of insulin ([facility]) 08/21/2024 Refill [facility] MED & PEDS [address] [facility], [place] [phone] Maria AAbbi [facility] 08/21/2024 Refill [facility] MEDICINE [address] [place] [address] LittletonAbbi [facility] 08/17/2024 Telephone [facility] MEDICINE [address] [place] [address] LittletonAbbi [facility] [employer] patient care solution (Gauze, non-impregnated, steril. Without adhesive border, each dressing.) 08/16/2024 Telephone [facility] MEDICINE [address] [place] [address] Abbi Saha FNP [facility] (Transparent film >16<=48 in) 07/16/2024 Refill [facility] MEDICINE [address] [place] [address] Abbi Saha FNP Type 2 diabetes mellitus with hyperglycemia, without long-term current use of insulin ([facility]) 07/05/2024 11:30 AM EST Office Visit [facility] MEDICINE [address] [place] [address] Abbi Saha FNP Primary malignant neoplasm of left lung metastatic to other site ([facility]) (Primary Dx); Type 2 diabetes mellitus with hyperglycemia, without long-term current use of insulin ([facility]) 07/05/2024 Travel 06/23/2024 Refill [facility] MEDICINE [address] [place] [address] Abbi Saha FNP Dyspepsia 06/14/2024 Refill [facility] [address] [place] [address] Abbi Saha FNP Type 2 diabetes mellitus with other specified complication, unspecified whether long term care administrator insulin use ([facility]) 06/06/2024 Telephone [facility] MEDICINE [address] [place] [address] Abbi Saha FNP Medication Question 05/31/2024 Telephone [facility] MEDICINE [address] [place] [address] Mili Hernandez RN Blood Pressure Check 05/31/2024 Telephone [facility] MEDICINE [address] [place], [place] [phone] [place], [place], [facility] FYI from Last 3 Months Immunizations [...] Description 09/20/2024 11:30 AM EST Office Visit [facility] MEDICINE [address] [place] [address] Abbi Saha FNP [address] [place] [address] 09/27/2024 3:00 PM EDT Office Visit [facility] ADULT DENTAL [address] [place] [address] Karla Ballesteros Health Maintenance Due Date Last [...] POCT HGB A1C (07/05/2024 11:27 AM EST) [facility] Hemoglobin A1C 6.2(A) 4.0 - 6.0 % Blood 07/05/2024 11:2 7 AM EST Result [facility] CASTING ASSISTANT POINT OF CARE TEST ENTER/EDIT ORDERABLES Final Result * POCT Glucose (07/05/2024 11:27 AM EST) [facility] Glucose Blood, POC 128 60 - 200 mg/dL Blood Capillary blood specimen / Unknown 07/05/2024 11:27 AM EST Result [facility] CASTING ASSISTANT POINT OF CARE TEST ENTER/EDIT ORDERABLES Final Result * Mr Brain w/ and w/o Contrast (05/23/2024 1:35 PM EST) Anatomical Region Laterality Modality Brain Magnetic Resonan ce 05/23/2024 1:35 PM EST Narrative 05/26/2024 1:28 PM EST ? [facility] ?[address] ?[place] [address] ? Magnetic Resonance Report ? Signed ? Patient: Lei Drew ?MR#: [id number] ? : 1945 ?Acct:[id number] ? Age/Sex: 78 / M ?ADM Date: 05/23/24 ? Loc: HO.MRI ? Attending Dr: Louisa Morales MD ? Ordering Physician: Louisa Morales MD ?? Date of Service: 05/23/24 ?? Procedure(s): MR head/brain wo/w con ?? Accession Number(s): [id number] ? cc: Louisa Morales MD; [place],Abbi CASTING ASSISTANT ? EXAMINATION: ?? MR BRAIN WITHOUT AND [...] signed by David Gilliam MD in OV> ?05/26/245 ? DD/ 1335 ? TD/TT: 05/23/24 1354 ? Extraction Machine Operator: ? Procedure Note Donkaty, Image - 05/26/[address] [address] Magnetic Resonance Report Signed Patient: Scottie Drew#: [id number] : 6Acct:[id number] Age/Sex: 78 / MADM Date: 05/23/24 Loc: HO.MRI Attending Dr: Louisa Morales MD Ordering Physician: Louisa Morales MD Date of Service: 05/23/24 Procedure(s): MR head/brain wo/w con Accession Number(s): [id number] cc: Louisa Morales MD; [facility] EXAMINATION: MR BRAIN WITHOUT AND WITH CONTRAST [...] by: David Gilliam MD 05/26/2024 01:25 PM [facility] Dictated By: David Gilliam MD Signed By: <Electronically signed by David Gilliam MD in OV> 05/26/24 1325 DD/ 1335 TD/TT: 05/23/24 1354 Extraction Machine Operator: [facility] External Provider IMG MRI PROCEDURES Final Result * Albumin, Random Urine W/Creatinine (05/03/2023 8:36 AM EDT) Creatinine, Urine 54.13 mg/dL [facility] Microalbumin Urine 8.0 mg/L [facility] Microalbum Creatinine Ratio Ur 14.7 <30 ug/mg cr [facility] Comment:Albumin/Creatinine R atio Reference Ranges: Normal: < 30 ug/mg creatinine Microalbuminuria: 30 - 300 ug/mg creatinineClinical Albuminuria: > 300 ug/mg creatinine Urine 05/03/2023 8:36 AM EDT 05/03/2023 11:07 AM EDT [facility] LAB URINE ORDERABLES Final Re sult Performing Organization Address [facility] Co de Phone Number [facility] [address] [place] [address] [phone] * Lipid Panel, Standard (05/03/2023 8:36 AM EDT) Triglycerides 83 <150 mg/dL [facility] Comment:Desirable Triglyceri de: less than 150 mg/dLBorderline High Triglyceride 150-199 mg/dLHigh Triglyceride: 200-499 mg/dLVery High Triglyceride: greater than or equal to 5OO mg/dL Cholesterol 136 <200 mg/dL [facility] Comment:Desirable Cholestero l: less than 200 mg/dLBorderline High Cholesterol: 200-239 mg/dLHigh Cholesterol: greater than 239 mg/dL LDL Cholesterol Calculated 54 <100 mg/dL [facility] Comment:Desirable LDL: less than 100 mg/dLNear Optimal/Above Optimal LDL: 110- 129 mg/dLBorderline High LDL: 130-159 mg/dLHigh LDL: 160-189 mg/dLVery High LDL: greater than or equal to 190 mg/dL HDL Cholesterol 66 >40 mg/dL [facility] Comment:Desirable HDL: great er than 40 mg/dL Note: This HDL assay may give artificially low results in patients with liver disease. Blood Venous blood specimen / Unknown 05/03/2023 8:36 AM EDT 05/03/2023 11:13 AM EDT [facility] LAB BLOOD ORDERABLES Final Re sult Performing Organization Address [facility]/ZIP Co de Phone Number [facility] [address] [place] [address] [phone] * Hepatitis C Antibody with Reflex to HCV, RNA, Quantitative, Real-Time PCR (09/11/2022 3:09 PM EST) Hepatitis C Antibody NON-REACT VAHID NON-REACT VAHID [employer] [place] [employer] Index <0.02 <1.00 [facility] Comment: HCV antibody was non-reactive. There is no laboratory evidence of HCV infection. In most cases, no further action is required. However, if recent HCV exposure is suspected, a test for HCV RNA (test code 75117) is suggested. For additional information please refer to http://education.Months Of Me/faq/GCH31l1 (This link is being provided for informational/ educational purposes only.) Blood Venous blood specimen / Unknown 09/11/2022 3:09 PM EST 09/11/2022 3:09 PM EST Narrative [facility] - 09/14/2022 1:32 PM EST FASTING:NO FASTING: NO [facility] BLOOD ORDERABLES Final Re sult [facility] [address], [place] [address] [employer] [place] [employer] [address] [facility], ([address]) [place] [address] from Last 3 Months or Most Recently Relevant to Health Maintenance Insurance [facility] Care Teams Channel Lip Stiffener Insoles Relationship Specialty Start Date End Date LittletonAbbi [facility] [address] [place] [phone] PCP - General Family Medicine 04/01/23 [place] [facility] 05/08/24
--- OUTSIDE RECORDS SUMMARY | 2024-08-22 13:10 | XMS_ITS | Encounter Summary ---
Author Organization [employer] Address [address] [facility] 7 [place] [address] Care Team Providers Care Seafood Harvester Name Role Phone [place] [facility] Primary Care Provider [phone] Reason for Visit * Reason Onset Date Comments refill 08/21/2024 Encounter Details Date Type Department Care Team ([facility] st Contact Info) Description 08/21/2024 Refill [facility] MEDICINE [address] [place], [place] [phone] [place] [facility] [address] [place] [address] Social History Tobacco Use Types Packs/Day Years [...] - 08/21/2024 3:09 PM ESTAddended by: GUILLAUME COLLINS on: 08/21/2024 03:09 PM Modules accepted: Orders * Telephone Encounter - Guillaume Collins RN - 08/21/2024 2:57 PM EST TC placed to [facility] pharmacy who reports the patient last received [...] she arrives home and return call to [facility] if lancets are not in bag.Daughter is [...] Visit [facility] MEDICINE [address] [place] [address] Abbi Saha FNP [address] [place] [address] 09/27/2024 3:00 PM EDT Office Visit [facility] ADULT DENTAL [address] [place] [address] Karla Ballesteros documented as of this encounter Visit Diagnoses Not on filedocumented in this encounter Additional Health Concerns Assessment Noted Time PHQ-9 Depression Total Score: 0 07/05/20 24 11:25 AM EST documented as of this encounter Care Teams Seafood Harvester Relationship Specialty Start Date End Date Abbi Saha FNP [address] [place] [address] PCP - General Family Medicine 04/01/23 [place] CORTESA 05/08/24 documented as of this encounter
--- OUTSIDE RECORDS SUMMARY | 2024-08-22 13:10 | XMS_ITS | Encounter Summary ---
Author Organization [employer] Address [address] [facility] 7t [place] [address] Care Team Providers Care Senior Property Manager Name Role Phone [place] [facility] Primary Care Provider [phone] Reason for Visit * Reason Comments Med Refill Encounter Details Date Type Department Care Team ([facility] st Contact Info) Description 08/22/2024 Refill [facility] [address] [place], [place] [phone] [facility] [address] [place], [place] [phone] Type 2 diabetes mellitus with hyperglycemia, without long-term current use of insulin ([facility]) Social History Tobacco Use Types Packs/Day Years [...] 11:30 AM EST Office Visit [facility] MED[facility] [address] [place] [address] Abbi Saha FNP [address] [place] [address] 09/27/2024 3:00 PM EDT Office Visit [facility] ADULT DENTAL [address] [place] [address] Karla Ballesteros documented as of this encounter Visit Diagnoses Diagnosis Type 2 diabetes mellitus with hyperglycemia, without long-term current use of insulin ([facility]) documented in this encounter Additional Health Concerns Assessment Noted Time PHQ-9 Depression Total Score: 0 07/05/20 24 11:25 AM EST documented as of this encounter Care Teams Senior Property Manager Relationship Specialty Start Date End Date Abbi Saha FNP [address] [place] [address] PCP - General Family Medicine 04/01/23 [place] CORTESA 05/08/24 documented as of this encounter
--- OUTSIDE RECORDS SUMMARY | 2024-08-22 13:10 | XMS_ITS | Clinical Summary ---
Author Organization [facility] Address [address] [place] [address] Phone Care Team Providers Care Instructional Support Technician Name Role Phone Unavailable Primary Care Provider Unavailabl e Encounters Date Type Department Care Team Description 2024 1:05 PM EST - 2024 11:59 PM EST Hospital Encounter [facility] PET Scan [address] [place] [address] Personal history of lung cancer [...] Signed Date: 05/31/2024 04:39 ET Workstation ID: [id number] Transcribed By: Self Edit Transcribed Date: 05/31/2024 [...] Signed Date: 05/31/2024 04:39 ET Workstation ID: [id number] Transcribed By: Self Edit Transcribed Date: 05/31/2024 03:41 ET Louisa EUBANKS NM PROCEDURES from Last 3 Months
--- OUTSIDE RECORDS SUMMARY | 2024-08-22 13:11 | XMS_ITS | Encounter Summary ---
Author Organization [employer] Address [address] [facility] 7t [place] [address] Care Team Providers Care Business Resiliency Manager Name Role Phone [place] [facility] Primary Care Provider [phone] Reason for Visit * Reason Comments Med Refill Encounter Details Date Type Department Care Team ([facility] Contact Info) Description 07/16/2024 Refill [facility] MEDICINE [address] [place], [place] [phone] [facility] [address] [place], [place] [phone] Type 2 diabetes mellitus with hyperglycemia, without long-term current use of insulin ([facility]) Social History Tobacco Use Types Packs/Day [...] 11:30 AM EST Office Visit [facility] MEDICINE [address] [place] [address] Abbi Saha FNP [address] [place] [address] 09/27/2024 3:00 PM EDT Office Visit [facility] ADULT DENTAL [address] [place] [address] Karla Ballesteros documented as of this encounter Visit Diagnoses Diagnosis Type 2 diabetes mellitus with hyperglycemia, without long-term current use of insulin ([facility]) documented in this encounter Additional Health Concerns Assessment Noted Time PHQ-9 Depression Total Score: 0 07/05/20 24 11:25 AM EST documented as of this encounter Care Teams Business Resiliency Manager Relationship Specialty Start Date End Date Abbi Saha FNP [address] [place] [address] PCP - General Family Medicine 04/01/23 [place] CORTESA 05/08/24 documented as of this encounter
--- OUTSIDE RECORDS SUMMARY | 2024-08-22 13:11 | XMS_ITS | Encounter Summary ---
Author Organization [employer] Address [address] [facility] 7 [place] [address] Care Team Providers Care Transitions Rn Care Coordinator Name Role Phone [place] [facility] Primary Care Provider [phone] Reason for Visit * Reason Onset Date Comments [employer] Patient Care Solution 08/16/2024 Transparent film >16<=48 in Encounter Details Date Type Department Care Team ([facility] st Contact Info) Description 08/16/2024 Telephone [facility] MEDICINE [address] [place], [place] [phone] [facility] [address] [place], [place] [phone] [employer] Patient Care Solution (Transparent film >16<=48 [...] AM EST Received medical necessity form from [employer] Patient Care Solution for transparent film. Form has been placed on PCP's desk for signature. documented in this encounter Plan of Treatment Upcoming Encounters Date Type Department Care Team (Late st Contact Info) Description 09/20/2024 11:30 AM EST Office Visit [facility] MEDICINE [address] [place] [address] Maria A, Abbi, DIRECTOR SEARCH [address] [place] [address] 09/27/2024 3:00 PM EDT Office Visit [facility] ADULT DENTAL [address] [place] [address] Karla Ballesteros documented as of this encounter Visit Diagnoses Not on filedocumented in this encounter Additional Health Concerns Assessment Noted Time PHQ-9 Depression Total Score: 0 07/05/20 11:25 AM EST documented as of this encounter Care Teams Transitions Rn Care Coordinator Relationship Specialty Start Date End Date Maria AAbbi robb FNP [address] [place] [address] [place] [address] PCP - General Family Medicine 04/01/23 [place] GARCIA 05/08/24 documented as of this encounter
--- OUTSIDE RECORDS SUMMARY | 2024-08-22 13:11 | XMS_ITS | Encounter Summary ---
Author Organization [employer] Address 75 [facility] 7t [place] [address] Care Team Providers Care Contact Center Specialist Name Role Phone [place] [facility] Primary Care Provider [phone] Encounter Details Date Type Department Care Team ([facility] st Contact Info) Description 08/11/2023 Orders Only [facility] MEDICINE [address] [place], [place] [phone] [place] [facility] [address] [place], [place] [phone] Sensorineural hearing loss (SNHL) of both ears; Lower urinary tract symptoms (LUTS); Gait instability; Type 2 diabetes mellitus with hyperglycemia, without long-term current use of insulin ([facility]); Hammertoes of both feet; Diminished pulses [...] Description 09/20/2024 11:30 AM EST Office Visit [facility] MEDICINE [address] [place] [address] [facility] [address] [place] [address] 09/27/2024 3:00 PM EDT Office Visit [facility] ADULT DENTAL [address] [place] [address] Karla Ballesteros documented as of this encounter Procedures Procedure Name Priority Date/Time Associated Diagnosis Comments AMB REFERRAL TO ENT Routine 10/14/2023 Sensorineural hearing loss (SNHL) of both ears documented in this encounter Results * Referral to ENT (10/14/2023) [facility] OUTPATIENT REFERRAL ORDERABLE S Final Result documented in this encounter Visit Diagnoses Diagnosis Sensorineural hearing loss (SNHL) of both ears Lower urinary tract symptoms (LUTS) Gait instability Abnormality of gait Type 2 diabetes mellitus with hyperglycemia, without long-term current use of insulin ([facility]) Hammertoes of both feet Diminished pulses in lower extremity Facial skin lesion documented in this encounter Additional Health Concerns Assessment Noted Time PHQ-9 Depression Total Score: 0 07/02/20 9:13 AM EST documented as of this encounter Care Teams Contact Center Specialist Relationship Specialty Start Date End Date Abbi Saha FNP [address] [place] [address] PCP - General Family Medicine 04/01/23 [place] GARCIA 05/08/24 documented as of this encounter
--- OUTSIDE RECORDS SUMMARY | 2024-08-22 13:11 | XMS_ITS | Encounter Summary ---
Author Organization [employer] Address [address] [facility] 7 [place] [address] Care Team Providers Care Customs Guard Name Role Phone Maria A, [facility] Primary Care Provider [phone] Reason for Visit * Reason Onset Date Comments [employer] patient care solution 08/17/2024 Gauze, non-impregnated, steril. Without adhesive border, each dressing. Encounter Details Date Type Department Care Team ([facility] st Contact Info) Description 08/17/2024 Telephone [facility] [address] [place], [place] [phone] [facility], [facility] [address] [place], [place] [phone] [facility] [facility] patient care solution (Gauze, non-impregnated, steril. Without [...] PM EST [facility]ze, non-impregnated, steril. Form has been filled out and placed on PCP's desk for signature. documented in this encounter Plan of Treatment Upcoming Encounters Date Type Department Care Team (Late st Contact Info) Description 09/20/2024 11:30 AM EST Office Visit [facility] [address] [place] [address] Abbi Saha FNP [address] [place] [address] 09/27/2024 3:00 PM EDT Office Visit [facility] ADULT DENTAL [address] [place] [address] Ballesteros, Karla documented as of this encounter Visit Diagnoses Not on filedocumented in this encounter Additional Health Concerns Assessment Noted Time PHQ-9 Depression Total Score: 0 07/05/20 11:25 AM EST documented as of this encounter Care Teams Customs Guard Relationship Specialty Start Date End Date Abbi Saha FNP [address] [place] [address] PCP - General Family Medicine 04/01/23 Noemi GARCIA 05/08/24 documented as of this encounter
== END 2024-08-22 12:45 | disposition home or self-care (01) ==
LOC: HO.XRAY 12:44
PROVIDERS: PCP Registered Nurse; Visit Provider Surgery
DX: Z93.8 Other artificial opening status (principal)
CPT/HCPCS: 71046

== ENCOUNTER → 2024-08-22 12:48 | Outpatient (BNV) | payer OTHER, SELFPAY | PROVIDERS: PCP Registered Nurse; Visit Provider Radiology Diagnostic Radiology | DX: J90 Pleural effusion, not elsewhere classified (principal) | CPT/HCPCS: 71046 ==

== ENCOUNTER 2024-08-28 13:26 | Outpatient (AMB) | payer OTHER, SELFPAY ==
--- NOTE | 2024-08-28 13:27 | MHC.OFFVIS ---
Intake Visit Reasons: s/p Pleurx catheter removal Intake Note: Patient here for 1wk pleurx- catheter removal. Reports improvement with Cephalexin course. Patient c/o: tenderness to touch, oozing improving but has to keep area covered. Chest X-ray: 08-22-2024 Slag Dumper Required: No Accompanied by: brayden Allergies No Known Allergies [No Known Allergies*] Allergy (Verified 08/28/24 13:31) HPI Comments Details: Patient presents with family member status post left PleurX catheter removal. He is doing well. No further drainage from the site. He is otherwise having no other constitutional symptoms or complaints. [facility] Medical History Lung mass GERD (gastroesophageal reflux disease) Exocrine pancreatic insufficiency High cholesterol Anemia Pleural hemorrhage Diverticulosis Hyponatremia Acute hyponatremia Colon cancer screening Erectile dysfunction Gastritis COVID-19 virus infection Hydrocele Cataract Hypercholesteremia Diabetes BPH (benign prostatic hyperplasia) Hypertension Surgical History Hx of colonoscopy History of bilateral knee replacement History of prostate surgery Family History Father Diabetes Mother Diabetes Uterus cancer Mother Cancer Social History Household Members: Spouse Housing: Apartment Housing Other:: housing apartment Are you a primary special needs caregiver to a significant other at home: No Do you presently have visiting nurse or other home services: No Alcohol intake: never Comment: camera placed as pt is impulsive, attempts to get OOB. Hx falls recently Patient Tobacco Use Status: Never used Tobacco service: No Current occupational status: retired Current occupation: right handed Gender identity: Male Physical Exam Chest Other: PleurX catheter site healing uneventfully. No evidence any further purulence or drainage. Assessment & Plan Assessment & Plan (1) Visit for wound check: Code(s): Z51.89 - Encounter for other specified aftercare Category: Surgical Plan Patient and family member have been given local instructions, and otherwise follow-up p.r.n.. All questions answered. Coding Level of Care Code Global (73294) Diagnoses Visit for wound check Z51.89
== END 2024-08-28 13:45 | disposition home or self-care (01) ==
PROVIDERS: PCP Registered Nurse; Visit Provider Surgery
DX: Z51.89 Encounter for other specified aftercare (principal)
CPT/HCPCS: 99024

== ENCOUNTER 2024-09-19 11:59 | Outpatient (REF) | payer OTHER, SELFPAY ==
--- NOTE | ~2024-09-19 | PE_ITS ---
EXAMINATION: FLUORINE-18 FDG PET/CT SCAN CLINICAL INFORMATION: Lung cancer for staging. TECHNIQUE: 65 minutes following the intravenous administration of 16.3 mCi of fluorine 18 FDG, images from the skull base to proximal thigh were obtained using a combined PET/CT scanner with CT scan based attenuation correction. No oral contrast was given. No intravenous contrast was administered. Transverse, coronal, sagittal, and volume reconstruction projections were obtained. The patient's blood glucose as determined by a finger stick, was 107 mg/dL immediately prior to injection. The radiotracer was injected intravenously through left forearm, without any complications. Total CT exam dose-length product 595 mGy-cm. * These CT images were obtained using dose optimization techniques as appropriate, variously including the following: Automated exposure control * Adjustment of mA and/or kV according to patient size (this includes techniques or standardized protocols for targeted exams where dose is matched to indication/reason for exam; i.e. extremities or head) * Use of iterative reconstruction technique COMPARISON: None available. FINDINGS: HEAD AND NECK: No abnormal FDG activity seen intracranially. On CT the lateral ventricles are symmetrical but enlarged. No acute intracranial abnormality seen on the limited images. There is a 8 mm lymph node left supraclavicular region with moderate metabolic activity on axial slice 214/[address] slice 213/2 CHEST: Ports and Devices: None Lungs: No abnormal radiotracer uptake. Pleura: No significant pleural effusion. Lymph Nodes: There is a 1.1 cm metabolically active right paratracheal lymph node on axial CT slice 208/2. Additional small lymph nodes in the pretracheal and right paratracheal space which is metabolically active. These lymph nodes measure approximately 7 to 8 mm less visualized on the slice 202/3. Abnormal moderate metabolic activity seen in bilateral precarinal and paratracheal lymph nodes.. The lymph nodes measure approximately 2 cm in maximum long dimension on axial CT slice 189/2. Left parahilar lymph node measured 1.1 cm and metabolically active. There are subcarinal lymph nodes as well. Mediastinum: On CT central trachea and the bronchi are widely patent. Heart size and the great vessels are normal caliber. No pericardial effusion seen. Breasts/Chest Wall: No abnormal radiotracer uptake. No abnormal axillary lymph nodes seen. ABDOMEN/PELVIS: Liver/Biliary System: No focal tracer-avid liver lesion. The gallbladder appears unremarkable. Pancreas: Normal.No abnormal metabolic activity. Spleen: No abnormal radiotracer uptake. No evidence of splenomegaly. Adrenal Glands: No abnormal radiotracer uptake. Kidneys: No hydronephrosis, hydroureter or renal calculi bilaterally. Bowel: Scattered metabolic activity seen in the colon likely related to bacterial finesse. There is large amount of stool and gas in colon without distention. The small bowel loops are normal caliber. Appendix is not seen. Lymph Nodes: No tracer avid retroperitoneal, mesenteric or pelvic and/or groin lymphadenopathy. Pelvic Organs: The urinary bladder is underdistended. MUSCULOSKELETAL: Mild metabolic activity seen in the right sternal clavicle joint which correspond to degenerative arthritic changes VASCULAR: The abdominal aorta is of normal caliber. PET/PET CT fusion skull to thigh IMPRESSION: Abnormal FDG activity in mediastinal lymph nodes, right paratracheal lymph nodes and left supra clavicular lymph nodes consistent with metastatic disease. There is no abnormal FDG activity seen in the lung parenchyma, pleura or the axilla. Electronically signed by: Ovidio Oliva MD 09/20/2024 09:23 AM NIKKI
--- OUTSIDE RECORDS SUMMARY | 2024-09-19 15:07 | XMS_ITS | Encounter Summary ---
Author Organization [email or web address] Address [address] [facility] 7t [place] [address] Care Team Providers Care Maintenance Mechanic Name Role Phone [facility] Primary Care Provider [phone] Reason for Visit * Reason Comments Med Refill Encounter Details Date Type Department Care Team ([facility] st Contact Info) Description 08/22/2024 Refill [facility] [address] [place], [place] [phone] [facility] [address] [place], [place] [phone] Type 2 diabetes mellitus with hyperglycemia, without long-term current use of insulin ([facility]) Social History Tobacco Use Types Packs/Day Years [...] Description 09/20/2024 11:30 AM EST Office Visit [facility] [address] [place] [address] Abbi Saha FNP [address] [place] [address] 09/27/2024 3:00 PM EDT Office Visit [facility] ADULT DENTAL [address] [place] [address] Karla Ballesteros documented as of this encounter Visit Diagnoses Diagnosis Type 2 diabetes mellitus with hyperglycemia, without long-term current use of insulin ([facility]) documented in this encounter Additional Health Concerns Assessment Noted Time PHQ-9 Depression Total Score: 0 07/05/20 24 11:25 AM EST documented as of this encounter Care Teams Maintenance Mechanic Relationship Specialty Start Date End Date Abbi Saha FNP [address] [place] [address] PCP - General Family Medicine 04/01/23 Noemi CORTESA 05/08/24 documented as of this encounter
--- OUTSIDE RECORDS SUMMARY | 2024-09-19 15:07 | XMS_ITS | Encounter Summary ---
Author Organization [employer] Address [address] [facility] 7t [place] [address] Care Team Providers Care Waist Cutter Name Role Phone [facility] Primary Care Provider [phone] Reason for Visit * Reason Comments Med Refill Encounter Details Date Type Department Care Team ([facility] Contact Info) Description 08/21/2024 Refill [facility] [address] [place], [place] [phone] [facility] [address] [place] [address] Social History Tobacco Use Types Packs/Day Years [...] Description 09/20/2024 11:30 AM EST Office Visit [facility] [address] [place] [address] [place] [facility] [address] [place] [address] 09/27/2024 3:00 PM EDT Office Visit [facility] ADULT DENTAL [address] [place] [address] Karla Ballesteros documented as of this encounter Visit Diagnoses Not on filedocumented in this encounter Additional Health Concerns Assessment Noted Time PHQ-9 Depression Total Score: 0 07/05/20 24 11:25 AM EST documented as of this encounter Care Teams Waist Cutter Relationship Specialty Start Date End Date [facility] [address] [place] [address] PCP - General Family Medicine 04/01/23 Noemi VNA 05/08/24 documented as of this encounter
--- OUTSIDE RECORDS SUMMARY | 2024-09-19 15:07 | XMS_ITS ---
Author Name BIRGITVirgil TSERING, RN, RD, KARLEE Address [address] [place] [address] Phone [phone] Organization [facility] Care Team Providers Care Piccolo Mechanic Name Role Phone KARLEE FERRO Unavailable [phone] Unavailable Unavailable Unavailable [facility] Unavailable [phone] TYLER LARES Unavailable [phone] [facility] Unavailable [phone] [facility] Unavailable [phone] Reason for Referral Not Available Allergies, adverse reactions, alerts No known allergies History of medication use Medication Class Instructions Start Date End Date Farxiga 10 mg Tab TAKE 1 TABLET BY BR[facility] TH EVERY MORNING 2023-01-05 No Data Available Januvia 25 mg Tab TAKE 1 TABLET BY BR[facility] TH EVERY MORNING 2022-09-13 No Data Available Medbox Status USE DIRECTED 2022-07-05 No Data [place] ilable metFORMIN 1000 mg Tab TAKE 1 TABLET BY M OUTH TWICE DAILY IN THE MORNING AND IN THE EVENING WITH FOOD 2023-01-05 No Data Available OneTouch Delica Plus Qvalux39D Miscellaneous TEST BLOOD SUGAR TWICE DAILY 2022-08-20 No Data Available Tamsulosin 0.4 mg Cap TAKE 1 CAPSULE BY MOUTH TWICE DAILY IN THE MORNING AND AT BEDTIME 2023-04-02 No Data Available OneTouch Verio Strip TEST BLOOD SUGAR TW ICE DAILY 2023-04-16 No Data Available Atorvastatin Calcium 10 mg Tab TAKE 1 TABLET BY MOUTH EVERY EVENING 2022-11-06 No Data Available Losartan Potassium 25 mg Tab TAKE 1 TABL ET BY MOUTH EVERYDAY AT NOON 2023-03-09 No Data Available MULTIVITAMIN TABLET TAKE 1 TABLET BY BREN[place] TH EVERY EVENING WITH FOOD 2022-09-16 No Data Available NIFEdipine ER 30 mg Tab ER 24hr TAKE 1 TABLET BY MOUTH EVERYDAY AT NOON 2023-03-09 No Data Available Sildenafil Citrate 100 mg Tab TAKE 1 TAB LET BY MOUTH ONCE A DAY NEEDED FOR ERECTILE DYSFUNCTION. ADMINISTER 30 MINUTES TO 4 HOURS BEFORE ACTIVITY. 90 DAY SUPPLY PER 2023-05-04 No Data Available Terazosin 5 mg Cap TAKE 1 CAPSULE BY [facility] AT BEDTIME 2023-06-15 No Data Available Problem List Problem Status Onset Date Resolved Date Hypertension Active 2023-09-28 N/A BPH (benign prostatic hyperplasia) Active 2023- 3-12 N/A Type 2 diabetes mellitus with hyperlipidemia Active 2023-09-28 N/A Other problems related to sd dical facilities and other health care Active 2023-09-28 N/A Encounters Encounters Type Facility Date of Service Diagnosis/Co mplaint Unlisted special service; to be used for medical record reviews and reporting CPTII codes (1111F, etc) [facility] ([place]) 05/27/2024 Encounter for other specifie d aftercare Unlisted special service; to be used for medical record reviews and reporting CPTII codes (1111F, etc) [facility] ([place]) 05/27/2024 Social History Sex Male History of Procedures Procedures Service Procedure code Service date Servicing provider Phone# Unlisted special service; to be used for medical record reviews and reporting CPTII codes (1111F, etc) [address] 2024-05-28 No Data Available No Data Availa ble Medications prescribed in hospital were reviewed and reconciled against what they were taking prior to admission during today's visit. (1111F) 1111F 2024-05-28 No Data Available No Data Availa ble Functional Status No Information Mental Status No Information Assessments Not Available Plan of Care Not Available
--- OUTSIDE RECORDS SUMMARY | 2024-09-19 15:08 | XMS_ITS | Clinical Summary ---
Author Organization [facility] Address [address] [place] [address] Phone Care Team Providers Care Cross Country/Track And Field Coach Name Role Phone Unavailable Primary Care Provider Unavailabl e Social History Tobacco Use Types Packs/Day Years Used Date Smoking Tobacco: Never Assessed Sex and Gender Information Value Date Recorded Sex Assigned at Not on file Legal Sex Male 12:56 PM EST Gender Identity Not on file [...] patient's age to complete this topic Meningococcal B Vacine Aged Out No lo nger eligible based on patient's age to complete this topic RSV Immunization Patients Under 20 months Aged Out No longer eligible based on patient's age to complete this topic Varicella Vaccines Aged Out No longer eligible based on patient's age to complete this topic
--- OUTSIDE RECORDS SUMMARY | 2024-09-19 15:08 | XMS_ITS | Encounter Summary ---
Author Organization [employer] Address [address] [facility] 7t [place] [address] Care Team Providers Care Log Stacker Operator Name Role Phone Abbi Saha [facility] Primary Care Provider [phone] Encounter Details Date Type Department Care Team (Latest Contact Info) Description 09/08/2024 Travel Social History Tobacco Use Types Packs/Day Years [...] Description 09/20/2024 11:30 AM EST Office Visit [facility] [address] [place] [address] [facility] [address] [place] [address] 09/27/2024 3:00 PM EDT Office Visit [facility] ADULT DENTAL [address] [place] [address] Karla Ballesteros documented as of this encounter Visit Diagnoses Not on filedocumented in this encounter Additional Health Concerns Assessment Noted Time PHQ-9 Depression Total Score: 0 07/05/20 24 11:25 AM EST documented as of this encounter Care Teams Log Stacker Operator Relationship Specialty Start Date End Date Abbi Saha [facility] [address] [place] [address] PCP - General Family Medicine 04/01/23 Noemi VNA 05/08/24 documented as of this encounter
--- OUTSIDE RECORDS SUMMARY | 2024-09-19 15:08 | XMS_ITS | Clinical Summary ---
Author Organization [employer] Address [address] [facility] [address] [place] [address] Care Team Providers Care National Sales Consultant Name Role Phone Abbi Saha [facility] Primary Care Provider [phone] Allergies No known active allergies Medications Diclofenac Sodium 1 % gel Apply 2 g topically every 6 (six) hours. 06/06/20 21 Active Lidocaine 4 % patch Apply to the affected area up to 3 times daily as needed Active sildenafil (Viagra) 100 MG tablet Take 1 tablet by mouth at bed time. Active Blood Glucose Monitoring Suppl (Myworldwall Verio) w/Device kitIndications: Type 2 diabetes mellitus without complication, without long-term current use of insulin ([facility]) 1 kit before breakfast and before evening meal. 1 kit 06/24/20 22 Active acetaminophen (Tylenol) 325 MG tablet Take 2 tablets by mouth. Active cholecalciferol (Vitamin D-3) 50 MCG (2000 UT) capsule TAKE 1 CAPSULE BY MOUTH EVERYDAY AT NOON 11/27/19 22 Active ferrous sulfate 325 (65 Fe) MG tablet Take 1 tablet by mouth. 12/19/19 21 Active traMADol (Ultram) 50 MG tablet Take 50 mg by mouth every 8 (eight) hours if needed. 08/07/19 23 Active tamsulosin (Flomax) 0.4 MG 24 hr capsule Take 1 capsule (0.4 mg) by mouth in the morning. 30 capsule 1 04/02/20 23 Active Lancets (PricelockTouch Delica Plus [id number]) miscIndications :Elevated blood sugar TEST BLOOD SUGAR TWICE DAILY 100 each 11 09/21/19 24 Active terazosin (Hytrin) 5 MG capsule Take 5 mg by mouth at bedtime. 08/09/19 24 Active psyllium (Metamucil Smooth Texture) 58.6 % powderIndicatio ns:Type 2 diabetes mellitus with hyperglycemia, without long-term current use of insulin ([facility]) Take 5.12 g (3 g of fiber) by mouth Once per day. 283 g 11 02/25/20 24 025 Active atorvastatin (Lipitor) 10 MG tablet TAKE 1 TABLET BY MOUTH EVERY EVENING 90 tablet 2 04/19/20 24 Active oxyCODONE (Roxicodone) 5 MG immediate release tablet 5 mg. 05/06/20 24 Active Creon 52517-09190 units capsule 2 capsules. 04/19/20 24 Active Farxiga 10 MGIndications:T ype 2 diabetes mellitus with other specified complication, unspecified whether rat exterminator insulin use ([facility]) TAKE 1 TABLET BY MOUTH EVERY MORNING 90 tablet 1 06/14/20 24 Active omeprazole (PriLOSEC) [address] capsuleIndicati ons:Dyspepsia TAKE 1 CAPSULE BY MOUTH TWICE DAILY 60 capsule 1 06/23/20 24 Active glucose blood (OneTouch Verio) test strip TEST BLOOD SUGAR TWICE A DAY 100 each 08/21/19 25 Active Multiple Vitamin (Multivitamin) tabletIndicatio ns:Type 2 diabetes mellitus with hyperglycemia, without long-term current use of insulin ([facility]) TAKE 1 TABLET BY MOUTH EVERY EVENING WITH FOOD 90 tablet 3 08/23/19 25 Active metFORMIN (Glucophage) 1000 MG tabletIndicatio ns:Type 2 diabetes mellitus with hyperglycemia, without long-term current use of insulin ([facility]) Take 1 tablet (1,000 mg) by mouth with breakfast and with evening meal. 60 tablet 11 09/08/19 25 026 Active SITagliptin (Januvia) 25 MG tabletIndicatio ns:Type 2 diabetes mellitus with hyperglycemia, without long-term current use of insulin ([facility]) Take 1 tablet (25 mg) by mouth Once per day. 30 tablet 11 09/08/19 25 026 Active glipiZIDE (Glucotrol) 10 MG tablet Take 2 tablets by mouth. 025 Discontinued glucose blood (OneTouch Verio) test strip TEST BLOOD SUGAR TWICE A DAY 100 each 20 23 025 Discontinued(Re order (will not trigger notification to Pharmacy)) Multiple Vitamin (Multivitamin) tabletIndicatio ns:Type 2 diabetes mellitus with hyperglycemia, without long-term current use of insulin (CMS/HCC) TAKE 1 TABLET BY MOUTH EVERY EVENING WITH FOOD 90 tablet 3 08/30/19 24 025 Discontinued Active Problems Problem Noted Date Diagnosed Date Primary malignant neoplasm o f left lung metastatic to other site 07/05/2024 Overview (07/05/2024): New dx of metastatic NSCLC 04/2024.-- Presented to [facility] ED w1 with acute SOB. CT chest [...] of metastatic disease. PET-CT performed 05/30/24 at [facility] showed FDG avid loculated left-sided pleural effusion [...] maintenance 10/16/2022 Overview (10/25/2022): Healthcare Maintenance: C-scope: [facility] 2021, needs records PSA: Per urology HCV Screen: Neg 09/10 HIV Screen: Neg 09/10 Immunizations: UTD ?? Weight loss 09/17/2022 Diabetes 09/11/2022 Overview (02/25/2024): Farxiga 10mg daily Metformin 1000mg b.i.d Januvia 25 mg daily Foot Exam: Risk 0; followed by podiatry ([facility]) Eye Exam: [facility] Eye care Statin: Yes ASA: No BLOSSOM/ARB: [...] labs today ?? Has upcoming appointment for [facility] eye care Assessment & Plan (10/25/2022 1:09 [...] (05/19/2023 11:14 AM EDT): ?? Compliant with [employer] agreement ?? Only using tramadol 1x/week due to concern re addiction ?? Advised patient OK to take tramadol at bedtime nightly if pain interfering with sleep ?? Continue acetaminophen PRN during day ?? Continue lidocaine patch ?? Continue topical diclofenac gel ?? Continue acupuncture ?? PT referral for general gait instability Assessment & Plan (10/25/2022 1:09 PM EDT): ?? Will refer to [employer] RN Hypertensive disorder 04/12/2017 Overview (02/25/2024): Losartan [...] Encounters Date Type Department Care Team Description 09/08/2024 3:15 PM EST Telemedicine [facility] [address] [place] [address] Abbi Saha FNP Type 2 diabetes mellitus with hyperglycemia, without long-term current use of insulin ([facility]) (Primary Dx); Non-small cell cancer of left lung ([facility]) 09/08/2024 Travel 09/01/[address] [facility] [address] [place] [address] Lola Xie, LARISA Blood Sugar Readings 08/31/[address] [facility] [address] [place] [address] Abbi Saha FNP [facility] Patient Care Solution (Gauze, non-impregnated, steril, pad size 16 sq/) 08/22/2024 Orders Only [facility] External Provider, [facility] 08/22/2024 Refill [facility] [address] [place] [address] Abbi Saha FNP Type 2 diabetes mellitus with hyperglycemia, without long-term current use of insulin ([facility]) 08/21/2024 Refill [facility] [address] [place] [address] Abbi Saha FNP 08/21/2024 Refill [facility] [address] [place] [address] Maria AAbbi FNP 08/17/[address] [facility] [address] [place] [address] [place] [facility] [employer] patient care solution (Gauze, non-impregnated, steril. Without adhesive border, each dressing.) 08/16/2024 Telephone [facility] [address] [place] [address] [place] [facility] [employer] Patient Care Solution (Transparent film >16<=48 in) 07/16/2024 Refill [facility] [address] [place] [address] [facility] Type 2 diabetes mellitus with hyperglycemia, without long-term current use of insulin ([facility]) 07/05/2024 11:30 AM EST Office Visit [facility] [address] [place] [address] [place] [facility] Primary malignant neoplasm of left lung metastatic to other site ([facility]) (Primary Dx); Type 2 diabetes mellitus with hyperglycemia, without long-term current use of insulin ([facility]) 07/05/2024 Travel 06/23/[address] [facility] [address] [place] [address] [facility] Dyspepsia from Last 3 Months Immunizations Name Administration [...] Description 09/20/2024 11:30 AM EST Office Visit [facility] [address] [place] [address] Maria A, Abbi, CURRICULUM DEVELOPMENT COORDINATOR [address] [place] [address] 09/27/2024 3:00 PM EDT Office Visit [facility] ADULT DENT[facility] [address] [place] [address] Karla Ballesteros Health Maintenance Due Date Last [...] history exists Depression Screening 07/05/2025 07/05/2024, 07/05/20 Eye Exam 07/19/2025 07/19/2023 Tobacco Screening 09/10/2025 09/10/2024 DTaP/Tdap/Td Vaccines (3 - Td or Tdap) [...] Procedure Name Priority Date/Time Associated Diagnosis Comments XR CHEST 2 VIEWS Routine 08/22/2024 7:06 PM EST POCT GLUCOSE Routine 07/05/2024 11:27 AM EST Type 2 diabetes mellitus with hyperglycemia, without long-term current use of insulin ([facility]) POCT GLYCATED HEMOGLOBIN, TOTAL Routine 07/05/2024 11:27 AM EST Type 2 diabetes mellitus with hyperglycemia, without long-term current use of insulin ([facility]) PROPHYLAXIS - ADULT Routine 02/17/2024 1 0:00 [...] Routine 09/11/2022 3:09 PM EST Healthcare maintenance INTRAORAL - COMPLETE SERIES OF RADIOGRAPHIC IMAGES Routine 09/25/2016 12:00 AM EST COMPREHENSIVE ORAL EVALUATION - NEW OR ESTABLISHED PATIENT Routine 09/25/2016 12:00 AM EST from Last 3 Months or Most Recently Relevant to Health Maintenance Results * XR Chest 2 Views (08/22/2024 7:06 PM EST) Anatomical Region Laterality Modality Chest Radiographic Brianna ging 08/22/2024 7:06 PM EST Narrative 08/22/2024 7:08 PM EST ? [facility] ?[address] ?[place] [address] ?XRay Report ? Signed ? Patient: Viki,Lei ?MR#: [id number] ? : 1945 ?Acct:[id number] ? Age/Sex: 79 / M ?ADM Date: 08/22/24 ? Loc: HO.XRAY ? Attending Dr: Memo Lainez MD ? Ordering Physician: Memo Lainez MD ?? Date of Service: 08/22/24 ?? Procedure(s): XR chest 2V ?? Accession Number(s): [id number] ? cc: Memo Lainez MD; Abbi Saha CURRICULUM DEVELOPMENT COORDINATOR ? CLINICAL HISTORY: Z93.8 - Other artificial opening status ? 1 view chest x-ray ? Comparison: 05/05/2024 ? Findings: ? Decreased left pleural effusion since prior film. ?? Improving left basilar consolidation as well. ?? Residual pleural fluid and consolidation noted. ?? Right lung clear. Heart size normal. ?? No acute bony abnormalities. ? Impression: ? Residual left pleural effusion and basilar consolidation ? This document has been electronically signed by: Vinayak Salguero MD on ?? 08/22/2024 19:06:55 ? Dictated By: ?Vinayak Salguero MD ? Signed By: ?<Electronically signed by Vinayak Salguero MD in OV> ? 08/22/241907 ? DD/ 05 ? TD/TT: 08/22/241905 ? Highway Inspector: ? Procedure Note Donkaty, Image - 08/22/[address] [address] XRay Report Signed Patient: Scottie Drew#: [id number] : 1945cct:[id number] Age/Sex: 79 / MADM Date: 08/22/24 Loc: PAUL[facility] Attending Dr: Memo Lainez MD Ordering Physician: Memo Lainez MD Date of Service: 08/22/24 Procedure(s): XR chest 2V Accession Number(s): [id number] cc: Memo Lainez MD; [facility] CLINICAL HISTORY: Z93.8 - Other artificial opening status 1 view chest x-ray Comparison: 05/05/2024 Findings: Decreased left pleural effusion since prior film. Improving left basilar consolidation as well. Residual pleural fluid and consolidation noted. Right lung clear. Heart size normal. No acute bony abnormalities. Impression: Residual left pleural effusion and basilar consolidation This document has been electronically signed by: Vinayak Salguero MD on 08/22/2024 19:06:55 Dictated By: Vinayak Salguero MD Signed By: <Electronically signed by Vinayak Salguero MD in OV> 08/22/241907 DD/ 05 TD/TT: 08/22/241905 Highway Inspector: [facility] External Provider IMG XR PROCEDURES Final Result * (ABNORMAL) POCT HGB A1C (07/05/2024 11:27 AM EST) Hemoglobin A1C 6.2(A) 4.0 - 6.0 % Blood 07/05/2024 11:2 7 AM EST [facility] POINT OF CARE TEST ENTER/EDIT ORDERABLES Final Result * POCT Glucose (07/05/2024 11:27 AM EST) Glucose Blood, POC 128 60 - 200 mg/dL Blood Capillary blood specimen / Unknown 07/05/2024 11:27 AM EST [facility] POINT OF CARE TEST ENTER/EDIT ORDERABLES Final Result * Albumin, Random Urine W/Creatinine (05/03/2023 8:36 AM EDT) Creatinine, Urine 54.13 mg/dL [facility] Microalbumin Urine 8.0 mg/L [facility] Microalbum Creatinine Ratio Ur 14.7 <30 ug/mg cr [facility] Comment:Albumin/Creatinine R atio Reference Ranges: Normal: < 30 ug/mg creatinine Microalbuminuria: 30 - 300 ug/mg creatinineClinical Albuminuria: > 300 ug/mg creatinine Urine 05/03/2023 8:36 AM EDT 05/03/2023 11:07 AM EDT [facility] LAB URINE ORDERABLES Final Re sult [facility] [address] [place] [phone] * Lipid Panel, Standard (05/03/2023 8:36 AM EDT) Triglycerides 83 <150 mg/dL [facility] Comment:Desirable Triglyceri de: less than 150 mg/dLBorderline High Triglyceride 150-199 mg/dLHigh Triglyceride: 200-499 mg/dLVery High Triglyceride: greater than or equal to 5OO mg/dL Cholesterol 136 <200 mg/dL [facility] Comment:Desirable Cholestero l: less than 200 mg/dLBorderline High Cholesterol: 200-239 mg/dLHigh Cholesterol: greater than 239 mg/dL LDL Cholesterol Calculated 54 <100 mg/dL [facility] Comment:Desirable LDL: less than 100 mg/dLNear Optimal/Above Optimal LDL: 110- 129 mg/dLBorderline High LDL: 130-159 mg/dLHigh LDL: 160-189 mg/dLVery High LDL: greater than or equal to 190 mg/dL HDL Cholesterol 66 >40 mg/dL [facility] Comment:Desirable HDL: great er than 40 mg/dL Note: This HDL assay may give artificially low results in patients with liver disease. Blood Venous blood specimen / Unknown 05/03/2023 8:36 AM EDT 05/03/2023 11:13 AM EDT [facility] LAB BLOOD ORDERABLES Final Re sult [facility] [address] [place] [address] [phone] * Hepatitis C Antibody with Reflex to HCV, RNA, Quantitative, Real-Time PCR (09/11/2022 3:09 PM EST) Hepatitis C Antibody NON-REACT VAHID NON-REACT VAHID [employer] Index <0.02 <1.00 [employer] [place] [employer] Comment: HCV antibody was non-reactive. There is no laboratory evidence of HCV infection. In most cases, no further action is required. However, if recent HCV exposure is suspected, a test for HCV RNA (test code 63530) is suggested. For additional information please refer to http://education.Searcheeze/faq/BVI58f1 (This link is being provided for informational/ educational purposes only.) Blood Venous blood specimen / Unknown 09/11/2022 3:09 PM EST 09/11/2022 3:09 PM EST Narrative [facility] - 09/14/2022 1:32 PM EST FASTING:NO FASTING: NO [facility] LAB BLOOD ORDERABLES Final Re sult [facility] [address] [place] [address] [facility] [address], ([address]) [place] [address] from Last 3 Months or Most Recently Relevant to Health Maintenance Insurance [facility] Care Teams National Sales Consultant Relationship Specialty Start Date End Date Abbi Saha FNP [address] [place] [phone] PCP - General Family Medicine [facility]
--- OUTSIDE RECORDS SUMMARY | 2024-09-19 15:08 | XMS_ITS | Encounter Summary ---
Author Organization [facility] Address [address] [facility] [address] [place] [address] Care Team Providers Care Statement Services Representative Name Role Phone Sandy Torrez MD Primary Care Provider Unava ilable [facility] Primary Care Provider [phone] Gogo Palacio [facility] Primary Care Provider [phone] [facility] Primary Care Provider [phone] Encounter Details Date Type Department Care Team (Latest Contact Info) Description 07/17/2019 Abstract [facility] CONVERSIONS Dental, Provider, DDS Social History [...] 11:30 AM EST Office Visit [facility] MEDICINE [address] [place] [address] [facility] [address] [place] [address] 09/27/2024 3:00 PM EDT Office Visit [facility] ADULT DENTAL [address] [place] [address] Karla Ballesteros documented as of this encounter Visit Diagnoses Not on filedocumented in this encounter Care Teams Statement Services Representative Relationship Specialty Start Date End Date Sandy Torrez MD PCP - General Family Medicine 01/09/20 06/22/22 [place] [address] [place] [address] PCP - General Family Medicine 06/23/22 03/28/23 Gogo Palacio FNP [address] [place] [address] PCP - General Family Medicine 03/29/23 03/31/23 [place] F[place] [address] [place] [address] PCP - General Family [facility] documented as of this encounter
--- OUTSIDE RECORDS SUMMARY | 2024-09-19 15:08 | XMS_ITS | Encounter Summary ---
Author Organization [employer] Address [address] [facility] 7 [place] [address] Care Team Providers Care Tank Hoop Bender Name Role Phone Maria A [facility] Primary Care Provider [phone] Reason for Visit * Reason Comments Telelvisit Diabetes Encounter Details Date Type Department Care Team ([facility] st Contact Info) Description 09/08/2024 3:15 PM EST Telemedicine [facility] [address] [place], [place] [phone] [facility] [address] [place] [address] Type 2 diabetes mellitus with hyperglycemia, without long-term current use of insulin (CMS/HCC) (Primary Dx); Non-small cell cancer of left lung (CMS/HCC) Social History Tobacco Use Types Packs/Day Years [...] PM EST documented as of this encounter Progress Notes * [facility], APPLICATION CHEMIST - 09/08/2024 3:15 PM EST SUBJECTIVE: Lei Drew is a 79 y.o. year old male with metastatic NSCLC, T2DM, HTN, HLD, hyponatremia s/t malignancy, and chronic knee pain who presents via telehealth for diabetes follow-up. VNA contacted office to report several episodes of blood sugar elevation over 200 over the past 2 weeks HPI -At last visit 06/2024 metformin and Januvia were discontinued due to hypoglycemia and patient continued on Farxiga 10 mg as monotherapy only. Today patient reports blood sugar elevation with readings consistently greater than 180. He restarted metformin and Januvia several days ago and reports blood sugars have returned to normal range. Tolerating medications well. Denies episodes of hypoglycemia. No glucose log available at time of visit Interval History Left Pleurx catheter was removed in July Started palliative systemic therapy with pembrolizumab every 3 weeks Patient states he has not been taking oral iron due to constipation Social History Social History Narrative Current living environment: Lives with . MILL FEEDER = Maya Children: 3 (daughter) 9 grands kids Tobacco Use: None Alcohol Use: None Marijuana Use: None Other drug use: None Patient Active Problem List Diagnosis Hypertensive disorder Hyponatremia Diabetes (CMS/HCC) Anemia Other chronic pain Weight loss Healthcare maintenance Mixed hyperlipidemia Lower urinary tract symptoms (LUTS) Sensorineural hearing loss (SNHL) of both ears Abnormality of gait and mobility Congenital foot deformity Primary malignant neoplasm of left lung metastatic to other site (CMS/HCC) No past surgical history on file. No family history on file. Review of Systems Constitutional: Negative for activity change, diaphoresis, fatigue, fever and unexpected weight change. Eyes: Negative for visual disturbance. Respiratory: Negative for apnea, cough, chest tightness and shortness of breath. Cardiovascular: Negative for chest pain, palpitations and leg swelling. Gastrointestinal: Negative for abdominal pain and nausea. Neurological: Negative for dizziness, syncope, light-headedness and headaches. OBJECTIVE: There were no vitals filed for this visit. Physical Exam Neurological: General: No focal deficit present. Mental Status: He is oriented to person, place, and time. ASSESSMENT/PLAN 1. Type 2 diabetes mellitus with hyperglycemia, without long-term current use of insulin (CMS/HCC) (Primary) -Okay to return to her prior regimen of metformin, Januvia, Farxiga with close monitoring for hypoglycemia - Update lab - Record blood sugar at least twice daily - Patient has glucose tabs at home - Basic Metabolic Panel; Future - CBC auto differential; Future - Albumin, Random Urine W/Creatinine; Future - Basic Metabolic Panel - CBC auto differential - Albumin, Random Urine W/Creatinine - Ferritin; Future - Ferritin - metFORMIN (Glucophage) 1000 MG tablet; Take 1 tablet (1,000 mg) by mouth with breakfast and with evening meal. Dispense: 60 tablet; Refill: 11 - SITagliptin (Januvia) 25 MG tablet; Take 1 tablet (25 mg) by mouth Once per day. Dispense: 30 tablet; Refill: 11 2. Non-small cell cancer of left lung (CMS/HCC) Follows with Dr. Morales [facility] heme/onc New dx of metastatic NSCLC 04/2024.-- Presented to [facility] ED w1024 with acute SOB. CT chest with to large left pleural effusion causing mass effect and mediastinal shift to the right, atelectasis ofleft lower and upper lobes. CT abdomen/pelvs w/ perinephric fat stranding around left kidney of uncertain etiology 05/03/24- repeat chest CT w/ residual fluid in the pleural space Left chest tube in place-VNA comes 3x/week to drain---removed 07/2024 A brain MRI performed 05/23/2024 shows no evidence of metastatic disease. PET-CT performed 05/30/24 at [facility] showed FDG avid loculated left-sided pleural [...] mg IV q. 3 weeks starting 06/02/2024. Follow Up: 1 month Current Outpatient Medications on File Prior to Visit Medication Sig Dispense Refill acetaminophen (Tylenol) 325 MG tablet Take 2 tablets by mouth. atorvastatin (Lipitor) 10 MG tablet TAKE 1 TABLET BY MOUTH EVERY EVENING 90 tablet 2 Blood Glucose Monitoring Suppl (Snapsheet) w/Device kit 1 kit before breakfast and before evening meal. 1 kit 0 cholecalciferol (Vitamin D-3) 50 MCG (2000 UT) capsule TAKE 1 CAPSULE BY MOUTH EVERYDAY AT NOON Creon 94541-24216 units capsule 2 capsules. Diclofenac Sodium 1 % gel Apply 2 g topically every 6 (six) hours. Farxiga 10 MG TAKE 1 TABLET BY MOUTH EVERY MORNING 90 tablet 1 ferrous sulfate 325 (65 Fe) MG tablet Take 1 tablet by mouth. glucose blood ([employer] Verio) test strip TEST BLOOD SUGAR TWICE A DAY 100 each 11 Lancets ([employer] Delica Plus [id number]) misc TEST BLOOD SUGAR TWICE DAILY 100 each 11 Lidocaine 4 % patch Apply to the affected area up to 3 times daily as needed Multiple Vitamin (Multivitamin) tablet TAKE 1 TABLET BY MOUTH EVERY EVENING WITH FOOD 90 tablet 3 omeprazole (PriLOSEC) [address] capsule TAKE 1 CAPSULE BY MOUTH TWICE DAILY 60 capsule 1 oxyCODONE (Roxicodone) 5 MG immediate release tablet 5 mg. psyllium (Metamucil Smooth Texture) 58.6 % powder Take 5.12 g (3 g of fiber) by mouth Once per day.283 g 11 sildenafil (Viagra) 100 MG tablet Take 1 tablet by mouth at bed time. tamsulosin (Flomax) 0.4 MG 24 hr capsule Take 1 capsule (0.4 mg) by mouth in the morning. 30 capsule 1 terazosin (Hytrin) 5 MG capsule Take 5 mg by mouth at bedtime. traMADol (Ultram) 50 MG tablet Take 50 mg by mouth every 8 (eight) hours if needed. [DISCONTINUED] glipiZIDE (Glucotrol) 10 MG tablet Take 2 tablets by mouth. No current facility-administered medications on file prior to visit. Montserratian Translation: Provided by [facility] staff member STEFANO Marquez documented in this encounter Plan of Treatment Upcoming Encounters Date Type Department Care Team (Late st Contact Info) Description 09/20/2024 11:30 AM EST Office Visit [facility] [address] [place] [address] Abbi Saha FNP [address] [place] [address] 09/27/2024 3:00 PM EDT Office Visit [facility] ADULT D[facility] [address] [place], [place] [phone] Karla Ballesteros Scheduled Orders Name Type Priority Associated Diagnoses Orde r Schedule Basic Metabolic Panel Lab Routine Type 2 diabetes mellitus with hyperglycemia, without long-term current use of insulin ([facility]) Expected: 09/08/2024 (Approximate), Expires: 09/08/2025 CBC auto differential Lab Routine Type 2 diabetes mellitus with hyperglycemia, without long-term current use of insulin (CMS/HCC) Expected: 09/08/2024 (Approximate), Expires: 09/08/2025 Albumin, Random Urine W/Creatinine Lab Routine Type 2 diabetes mellitus with hyperglycemia, without long-term current use of insulin (CMS/HCC) Expected: 09/08/2024 (Approximate), Expires: 09/08/2025 Ferritin Lab Routine Type 2 diabetes mellitus with hyperglycemia, without long-term current use of insulin (CMS/HCC) Expected: 09/08/2024 (Approximate), Expires: 09/08/2025 documented as of this encounter Visit Diagnoses Diagnosis Type 2 diabetes mellitus with hyperglycemia, without long-term current use of insulin (CMS/HCC)- Primary Non-small cell cancer of left lung (CMS/HCC) documented in this encounter Additional Health Concerns Assessment Noted Time PHQ-9 Depression Total Score: 0 07/05/20 24 11:25 AM EST documented as of this encounter Care Teams Tank Hoop Bender Relationship Specialty Start Date End Date Abbi Saha FNP [address] [place] [id number] PCP - General Family Medicine 04/01/23 Noemi GARCIA 05/08/24 documented as of this encounter
--- OUTSIDE RECORDS SUMMARY | 2024-09-19 15:08 | XMS_ITS | Encounter Summary ---
Author Organization [employer] Address [address] [facility] [address] 7t [place] [address] Care Team Providers Care Cigar Packing Examiner Name Role Phone Abbi Saha CONTENT CURATOR Primary Care Provider [phone] Encounter Details Date Type Department Care Team (Late st Contact Info) Description 08/22/2024 Orders Only [facility] External Provider, [facility] Social History Tobacco Use Types Packs/Day Years [...] 09/20/2024 11:30 AM EST Office Visit [facility] 230 [place] [address] [facility] 230 [place] [address] 09/27/2024 3:00 PM EDT Office Visit [facility] ADULT DENTAL [address] [place] [address] Karla Ballesteros documented as of this encounter Procedures Procedure Name Priority Date/Time Associated Diagnosis Comments XR CHEST 2 VIEWS Routine 08/22/2024 7:06 PM EST documented in this encounter Results * XR Chest 2 Views (08/22/2024 7:06 PM EST) Anatomical Region Laterality Modality Chest Radiographic Brianna ging 08/22/2024 7:06 PM EST Narrative 08/22/2024 7:08 PM EST ? [facility] ?[address] ?[place] [address] ?XRay Report ? Signed ? Patient: Viki,Lei ?MR#: [id number] ? : 1945 ?Acct:[id number] ? Age/Sex: 79 / M ?ADM Date: 02/04/25 ? Loc: HO.XRAY ? Attending Dr: Memo Lainez MD ? Ordering Physician: Memo Lainez MD ?? Date of Service: 08/22/24 ?? Procedure(s): XR chest 2V ?? Accession Number(s): [id number] ? cc: Memo Lainez MD; Abbi Saha CONTENT CURATOR ? CLINICAL HISTORY: Z93.8 - Other artificial [...] by Vinayak Salguero MD in OV> ? 08/22/24 1908 ? DD/ 05 ? TD/TT: 08/22/241905 ? Data Warehousing Architect: ? Procedure Note Yemi, Angela - 08/22/[address] [address] XRay Report Signed Patient: Scottie Drew#: [id number] : 1945cct:[id number] Age/Sex: 79 / MADM Date: 08/22/24 Loc: [facility] Attending Dr: Memo Lainez MD Ordering Physician: Memo Lainez MD Date of Service: 08/22/24 Procedure(s): XR chest 2V Accession Number(s): [id number] cc: Memo Lainez MD; [facility] CLINICAL HISTORY: Z93.8 - Other artificial opening [...] Salguero MD on 08/22/2024 19:06:55 Dictated By: Jose M,Vinayak MD Signed By: <Electronically signed by Vinayak Salguero MD in OV> 08/22/241907 DD/ 05 TD/TT: 08/22/241905 Data Warehousing Architect: [facility] External Provider IMG XR PROCEDURES Final Result documented in this encounter Visit Diagnoses Not on filedocumented in this encounter Additional Health Concerns Assessment Noted Time PHQ-9 Depression Total Score: 0 07/05/20 24 11:25 AM EST documented as of this encounter Care Teams Cigar Packing Examiner Relationship Specialty Start Date End Date Abbi Saha FNP [address] [place] [address] PCP - General Family Medicine 04/01/23 Noemi GARCIA 05/08/24 documented as of this encounter
--- OUTSIDE RECORDS SUMMARY | 2024-09-19 15:08 | XMS_ITS | Encounter Summary ---
Author Organization [employer] Address [address] [facility] 7t [place] [address] Care Team Providers Care Ratchet Setter Name Role Phone [place] [facility] Primary Care Provider [phone] Encounter Details Date Type Department Care Team ([facility] st Contact Info) Description 08/11/2023 Orders Only [facility] [address] [place], [place] [phone] [place] [facility] 230 [place], [place] [phone] Sensorineural hearing loss (SNHL) of both ears; Lower urinary tract symptoms (LUTS); Gait instability; Type 2 diabetes mellitus with hyperglycemia, without long-term current use of insulin ([facility]); Hammertoes of both feet; Diminished pulses in [...] Description 09/20/2024 11:30 AM EST Office Visit [facility] [address] [place] [address] [facility] [address] [place] [address] 09/27/2024 3:00 PM EDT Office Visit [facility] ADULT DENTAL [address] [place] [address] Karla Ballesteros documented as of this encounter Procedures Procedure Name Priority Date/Time Associated Diagnosis Comments AMB REFERRAL TO ENT Routine 10/14/2023 Sensorineural hearing loss (SNHL) of both ears documented in this encounter Results * Referral to ENT (10/14/2023) [facility] OUTPATIENT REFERRAL ORDERABLE S Final Result documented in this encounter Visit Diagnoses Diagnosis Sensorineural hearing loss (SNHL) of both ears Lower urinary tract symptoms (LUTS) Gait instability Abnormality of gait Type 2 diabetes mellitus with hyperglycemia, without long-term current use of insulin ([facility]) Hammertoes of both feet Diminished pulses in lower extremity Facial skin lesion documented in this encounter Additional Health Concerns Assessment Noted Time PHQ-9 Depression Total Score: 0 07/02/20 9:13 AM EST documented as of this encounter Care Teams Ratchet Setter Relationship Specialty Start Date End Date Abbi Saha FNP 230 [place] [address] PCP - General Family Medicine 04/01/23 Noemi GARCIA 05/08/24 documented as of this encounter
--- OUTSIDE RECORDS SUMMARY | 2024-09-19 15:08 | XMS_ITS | Encounter Summary ---
Author Organization [employer] Address [address] [facility] 7t [place] [address] Care Team Providers Care Movie Theater Usher Name Role Phone Maria A, [facility] Primary Care Provider [phone] Reason for Visit * Reason Onset Date Comments [facility] 08/31/2024 Gauze, non-impregnated, steril, pad size 16 sq Encounter Details Date Type Department Care Team ([facility] st Contact Info) Description 08/31/2024 Telephone [facility] [address] [place], [place] [phone] [facility], [facility] 230 [place], [place] [phone] [facility] Patient Care Solution (Gauze, non-impregnated, steril, pad size 16 sq/) Social History Tobacco Use Types Packs/Day Years [...] your housing situation today? I have elza molsey 10/14/[address] you li [...] encounter Miscellaneous Notes * Telephone Encounter - Buffy Pires [place] - 09/05/2024 11:13 AM EST Received forms below signed by PCP, I faxed it back to company and also sent to scan. * Telephone Encounter - Shadia Alexander [place] - 08/31/2024 9:35 AM EST Received medical necessity form from [employer] for Gauze, non-impregnated, steril, pad size 16. Form has been filled out and placed on PCP's desk for their signature. documented in this encounter Plan of Treatment Upcoming Encounters Date Type Department Care Team (Late st Contact Info) Description 09/20/2024 11:30 AM EST Office Visit [facility] [address] [place], [place] [phone] Abbi Saha FNP [address] [facility] [place] [address] 09/27/2024 3:00 PM EDT Office Visit [facility] [place] [address] Karla Ballesteros documented as of this encounter Visit Diagnoses Not on filedocumented in this encounter Additional Health Concerns Assessment Noted Time PHQ-9 Depression Total Score: 0 07/05/20 24 11:25 AM EST documented as of this encounter Care Teams Movie Theater Usher Relationship Specialty Start Date End Date Maria A ROB Go [address] [facility] [place] [address] PCP - General Family Medicine 04/01/23 Noemi CORTESA 05/08/24 documented as of this encounter
--- OUTSIDE RECORDS SUMMARY | 2024-09-19 15:08 | XMS_ITS | Encounter Summary ---
Author Organization [employer] Address [address] [facility] 7t [place] [address] Care Team Providers Care Traffic Analyst Name Role Phone [place] [facility] Primary Care Provider [phone] Reason for Visit * Reason Comments Med Refill Encounter Details Date Type Department Care Team ([facility] Contact Info) Description 07/16/[address] [facility] [address] [place], [place] [phone] [facility] 230 [place], [place] [phone] Type 2 diabetes mellitus with hyperglycemia, without long-term current use of insulin ([facility]) Social History Tobacco Use Types Packs/Day Years [...] Visit [facility] MED[facility] [address] [place] [address] Abbi Saha FNP 230 [place] [address] 09/27/2024 3:00 PM EDT Office Visit [facility] ADULT DENTAL [address] [place] [address] Karla Ballesteros documented as of this encounter Visit Diagnoses Diagnosis Type 2 diabetes mellitus with hyperglycemia, without long-term current use of insulin ([facility]) documented in this encounter Additional Health Concerns Assessment Noted Time PHQ-9 Depression Total Score: 0 07/05/20 24 11:25 AM EST documented as of this encounter Care Teams Traffic Analyst Relationship Specialty Start Date End Date Abbi Saha FNP [address] [place] [address] PCP - General Family Medicine 04/01/23 Noemi CORTESA 05/08/24 documented as of this encounter
--- OUTSIDE RECORDS SUMMARY | 2024-09-19 15:08 | XMS_ITS | Encounter Summary ---
Author Organization [employer] Address [address] [facility] 7t [place] [address] Care Team Providers Care Extrusion Die Corrector Name Role Phone Maria A, [facility] Primary Care Provider [phone] Reason for Visit * Reason Onset Date Comments [facility] patient care solution 08/17/2024 Gauze, non-impregnated, steril. Without adhesive border, each dressing. Encounter Details Date Type Department Care Team ([facility] st Contact Info) Description 08/17/2024 Telephone [facility] [address] [place], [place] [phone] [facility], [facility] [address] [place], [place] [phone] [facility] patient care solution (Gauze, non-impregnated, steril. Without [...] Telephone Encounter - Buffy Pires [place] - 08/23/2024 9:54 AM EST Received forms below signed by PCP. I fax them back to company also sent to scan. * Telephone Encounter - Shadia Alexander [place] - 08/17/2024 2:02 PM EST Received medical necessity from from [employer] for Gauze, non-impregnated, steril. Form has been filled out and placed on PCP's desk for signature. documented in this encounter Plan of Treatment Upcoming Encounters Date Type Department Care Team (Late st Contact Info) Description 09/20/2024 11:30 AM EST Office Visit [facility] MEDICINE [address] [place], [place] [phone] Abbi Saha FNP [address] [place] [address] 09/27/2024 3:00 PM EDT Office Visit [facility] ADULT DENTAL 230 [place] [address] Karla Ballesteros documented as of this encounter Visit Diagnoses Not on filedocumented in this encounter Additional Health Concerns Assessment Noted Time PHQ-9 Depression Total Score: 0 07/05/20 11:25 AM EST documented as of this encounter Care Teams Extrusion Die Corrector Relationship Specialty Start Date End Date Abbi Saha FNP [address] [place] [address] PCP - General Family Medicine 04/01/23 Noemi [facility] 05/08/24 documented as of this encounter
--- OUTSIDE RECORDS SUMMARY | 2024-09-19 15:08 | XMS_ITS | Encounter Summary ---
Author Organization [employer] Address [address] [facility] 7 [place] [address] Care Team Providers Care Home Care Companion Name Role Phone Mobile [facility] Primary Care Provider [phone] Reason for Visit * Reason Onset Date Comments refill 08/21/2024 Encounter Details Date Type Department Care Team ([facility] st Contact Info) Description 08/21/2024 Refill [facility] MEDICINE 230 [place], [place] [phone] [place] [facility] 230 [place] [address] Social History Tobacco Use Types Packs/Day Years [...] 08/21/2024 2:57 PM EST TC placed to [facility] pharmacy who reports the patient last received [...] she arrives home and return call to [facility] if lancets are not in bag.Daughter is [...] Description 09/20/2024 11:30 AM EST Office Visit [facility] MEDICINE [address] [place] [address] Abbi Saha FNP 230 [place] [address] 09/27/2024 3:00 PM EDT Office Visit [facility] ADULT DENTAL [address] [place] [address] Karla Ballesteros documented as of this encounter Visit Diagnoses Not on filedocumented in this encounter Additional Health Concerns Assessment Noted Time PHQ-9 Depression Total Score: 0 07/05/20 24 11:25 AM EST documented as of this encounter Care Teams Home Care Companion Relationship Specialty Start Date End Date Abbi Saha FNP 230 [place] [address] PCP - General Family Medicine 04/01/23 Noemi CORTESA 05/08/24 documented as of this encounter
--- OUTSIDE RECORDS SUMMARY | 2024-09-19 15:08 | XMS_ITS | Clinical Summary ---
Author Organization [facility] Address [address] [facility] [address] [place] [address] Phone Care Team Providers Care Green End Worker Name Role Phone Unavailable Primary Care Provider [...] Visit [facility] [address] [phone] Rosanna Zamudio ARNP [address] [address] Health Maintenance Due Date Last [...]
--- OUTSIDE RECORDS SUMMARY | 2024-09-19 15:08 | XMS_ITS | Encounter Summary ---
Author Organization [employer] Address [address] [facility] 7t [place] [address] Care Team Providers Care Prototype Deicer Assembler Name Role Phone Abbi Saha LIFE SPECIALIST Primary Care Provider [phone] Reason for Visit * Reason Onset Date Comments Blood Sugar Readings 09/01/2024 Encounter Details Date Type Department Care Team ([facility] st Contact Info) Description 09/01/[address] [facility] [address] [place] [address] Lola Xie RN Blood Sugar Readings Social History Tobacco Use Types Packs/Day Years [...] encounter Miscellaneous Notes * Telephone Encounter - Morena Langford MA - 09/07/2024 10:14 AM EST Televisit scheduled for 09/08 @3;15pm per pcp's request. * Telephone Encounter - Lola Xie RN - 09/01/2024 2:30 PM EST [facility] that the pt has had several elevated blood pressure readings this week. The highest the blood sugar readings have been is 270. The pt has no corresponding symptoms related to the elevated blood sugar but Mary reports that the pt would like to start back on the Metformin and Januvia medication. The pt has also not been taking Iron supplementation due to constipation. documented in this encounter Plan of Treatment Upcoming Encounters Date Type Department Care Team (Late st Contact Info) Description 09/20/2024 11:30 AM EST Office Visit [facility] [address] [place] [address] SheridanAbbi, [facility] [address] [place] [address] 09/27/2024 3:00 PM EDT Office Visit [facility] ADULT DENTAL [address] [place] [address] Karla Ballesteros documented as of this encounter Visit Diagnoses Not on filedocumented in this encounter Additional Health Concerns Assessment Noted Time PHQ-9 Depression Total Score: 0 07/05/20 24 11:25 AM EST documented as of this encounter Care Teams Prototype Deicer Assembler Relationship Specialty Start Date End Date Abbi Saha FNP [address] [facility] [place] [address] PCP - General Family Medicine 04/01/23 [place] GARCIA 05/08/24 documented as of this encounter
--- OUTSIDE RECORDS SUMMARY | 2024-09-19 15:08 | XMS_ITS | Encounter Summary ---
Author Organization [facility] Address [address] [facility] 7t [place] [address] Care Team Providers Care Advanced Clinical Specialist Name Role Phone Sandy Torrez MD Primary Care Provider Unava ilable [facility] Primary Care Provider [phone] Gogo Palacio [facility] Primary Care Provider [phone] [facility] Primary Care Provider [phone] Encounter Details Date Type Department Care Team (Latest Contact Info) Description 06/23/2021 Abstract [facility] CONVERSIONS Dental, Provider, DDS Social History Tobacco [...] 11:30 AM EST Office Visit [facility] MEDICINE [address] [place] [address] [facility] [address] [place] [address] 09/27/2024 3:00 PM EDT Office Visit [facility] ADULT DENTAL [address] [place], [place] [phone] Karla Ballesteros documented as of this encounter Visit Diagnoses Not on filedocumented in this encounter Care Teams Advanced Clinical Specialist Relationship Specialty Start Date End Date Sandy Torrez MD PCP - General Family Medicine 01/09/20 06/22/22 Abbi Saha FNP [address] [place] [address] PCP - General Family Medicine 06/23/22 03/28/23 Gogo Palacio FNP [address] [place] [address] PCP - General Family Medicine 03/29/23 03/31/23 Abbi Saha FNP [address] [place] [address] PCP - General Family Medicine 04/01/23 [place] [facility] 05/08/24 documented as of this encounter
== END 2024-09-19 12:00 | disposition home or self-care (01) ==
LOC: HO.PET 11:59
PROVIDERS: PCP Registered Nurse; Visit Provider Internal Medicine
DX: Z13.89 Encounter for screening for other disorder (principal)

== ENCOUNTER 2024-10-25 10:12 | Outpatient (REF) | payer OTHER, SELFPAY ==
--- NOTE | ~2024-10-25 | XR_ITS ---
EXAMINATION: XR CHEST 2 VIEWS HISTORY: 79 y.o male with metastatic lung cancer with acute cough, chills x 1 week COMPARISON: Comparison is made with the prior examination dated 08/22/2024. FINDINGS: PA and lateral views of the chest are submitted. The lungs are expanded and clear. There is a tiny left pleural effusion which has decreased in size since the prior study. There is no right pleural effusion, pneumothorax, or pulmonary vascular congestion. The heart is normal in size. There is degenerative disc disease of the spine. XR/XR chest 2V IMPRESSION: Tiny left pleural effusion which is smaller than on the prior study. The lungs are clear. Electronically signed by: Jerzy Mosqueda MD 10/25/2024 10:29 AM EDT
--- OUTSIDE RECORDS SUMMARY | 2024-10-25 11:31 | XMS_ITS | Encounter Summary ---
Author Organization [facility] Address [address] [facility] 7t [place] [address] Care Team Providers Care Peanut Sorter Name Role Phone Sandy Torrez MD Primary Care Provider Unava ilable [facility] Primary Care Provider [phone] Palacio [facility] Primary Care Provider [phone] [facility] Primary Care Provider [phone] Encounter Details Date Type Department Care Team (Latest Contact Info) Description 07/17/2019 Abstract [facility] CONVERSIONS Dental, Provider, DDS Social History [...] Care Team (Late st Contact Info) Description 12/15/2024 11:15 AM EDT Telemedicine [facility] MEDICINE [address] [place] [address] [facility] [address] [place] [address] 04/10/2025 10:00 AM EDT Office Visit [facility] ADULT DENTAL [address] [place], [place] [phone] Amber Conteh documented as of this encounter Visit Diagnoses Not on filedocumented in this encounter Care Teams Peanut Sorter Relationship Specialty Start Date End Date Sandy Torrez MD PCP - General Family Medicine 01/09/20 06/22/22 Abbi Saha FNP [address] [place] [address] PCP - General Family Medicine 06/23/22 03/28/23 Gogo Palacio FNP [address] [place] [address] PCP - General Family Medicine 03/29/23 03/31/23 Abbi Saha FNP [address] [place] [address] PCP - General Family Medicine 04/01/23 [place] [facility] 05/08/24 documented as of this encounter
--- OUTSIDE RECORDS SUMMARY | 2024-10-25 11:31 | XMS_ITS | Clinical Summary ---
Author Organization [facility] Address [address] [place] [address] Phone Care Team Providers Care Engine Inspector Name Role Phone Unavailable Primary Care Provider [...] Annual Retina Eye Exam 1955 RSV Immunization Adult Patients (1 - 1-dose 75+ series) 2021 Diabetes: [...] age to complete this topic Meningococcal B Vaccine Aged Out No l onger eligible based on patient's age to complete this topic RSV Immunization Patients Under 20 months Aged Out No longer eligible based on patient's age to complete this topic Varicella Vaccines Aged Out No longer eligible based on patient's age to complete this topic
--- OUTSIDE RECORDS SUMMARY | 2024-10-25 11:31 | XMS_ITS | Encounter Summary ---
Author Organization [employer] Address [address] [facility] 7t [place] [address] Care Team Providers Care Petrol Tanker Driver Name Role Phone Abbi Saha [facility] Primary Care Provider [phone] Encounter Details Date Type Department Care Team (Latest Contact Info) Description 10/25/2024 Travel Social History Tobacco Use Types Packs/Day [...] Info) Description 12/15/2024 11:15 AM EDT Telemedicine [facility] MEDICINE [address] [place] [address] Abbi Saha FNP [address] [place] [address] 04/10/2025 10:00 AM EDT Office Visit [facility] ADULT DENTAL [address] [place] [address] Amber Conteh documented as of this encounter Visit Diagnoses Not on filedocumented in this encounter Additional Health Concerns Assessment Noted Time PHQ-9 Depression Total Score: 0 07/05/20 24 11:25 AM EST documented as of this encounter Care Teams Petrol Tanker Driver Relationship Specialty Start Date End Date Abbi Saha FNP [address] [place] [address] PCP - General Family Medicine 04/01/23 [facility] [facility] 05/08/24 documented as of this encounter
--- OUTSIDE RECORDS SUMMARY | 2024-10-25 11:31 | XMS_ITS ---
Author Name Dineshmikaela TSERING, RN, RD, [place] Address [address] [place] [address] Phone [phone] [facility] Care Team Providers Care Bobbin Cleaning Machine Operator Name Role Phone Adeola Campuzano Unavailable [phone] Unavailable Unavailable Unavailable [facility] Unavailable TYLER LARES Unavailable [phone] [facility] Unavailable [facility] Unavailable [phone] Reason for Referral Not Available Allergies, adverse [...] 2023-01-05 No Data Available OneTouch Delica Plus [id number] Miscellaneous TEST BLOOD SUGAR TWICE DAILY 2022-08-20 [...] 5 mg Cap TAKE [address] [facility] AT BEDTIME 2023-06-15 No Data Available Problem List Problem Status Onset Date Resolved Date Hypertension Active 2023-09-28 N/A BPH (benign prostatic hyperplasia) Active 2023- 3-12 N/A Type 2 diabetes mellitus with hyperlipidemia Active 2023-09-28 N/A Other problems related to il dical facilities and other health care Active 2023-09-28 N/A Encounters Encounters Type Facility Date of Service Diagnosis/Co mplaint Unlisted special service; to be used for medical record reviews and reporting CPTII codes (1111F, etc) [facility] 05/27/2024 Encounter for other specifie d aftercare Unlisted special service; to be used for medical record reviews and reporting CPTII codes (1111F, etc) [facility]/2024 Social History Sex Male History of Procedures Procedures Service Procedure code Service date Servicing provider Phone# Unlisted special service; to be used for medical record reviews and reporting CPTII codes (1111F, etc) [address] 2024-05-28 No Data Available No Data Availa ble Medications prescribed in hospital were reviewed and reconciled against what they were taking prior to admission during today's visit. (1111F) 1111F 2024-05-28 No Data Available No Data Availa ble Functional Status No Information Mental Status No Information Assessments Not Available Plan of Care Not Available
--- OUTSIDE RECORDS SUMMARY | 2024-10-25 11:31 | XMS_ITS | Encounter Summary ---
Author Organization [employer] Address [address] [facility] 7t [place] [address] Care Team Providers Care Porter Bath Name Role Phone [place] [facility] Primary Care Provider [phone] Reason for Visit * Reason Comments Med Refill Encounter Details Date Type Department Care Team ([facility] Contact Info) Description 07/16/2024 Refill [facility] MEDICINE [address] [place], [place] [phone] [facility] [address] [place], [place] [phone] Type 2 diabetes mellitus with hyperglycemia, without long-term current use of insulin ([facility]) Social History Tobacco Use Types Packs/Day Years [...] your housing situation today? I have elza omsley 10/14/[address] you li [...] Info) Description 12/15/2024 11:15 AM EDT Telemedicine [facility] MEDICINE [address] [place] [address] Abbi Saha FNP [address] [place] [address] 04/10/2025 10:00 AM EDT Office Visit [facility] ADULT DENTAL [address] [place] [address] Amber Conteh documented as of this encounter Visit Diagnoses Diagnosis Type 2 diabetes mellitus with hyperglycemia, without long-term current use of insulin ([facility]) documented in this encounter Additional Health Concerns Assessment Noted Time PHQ-9 Depression Total Score: 0 07/05/20 24 11:25 AM EST documented as of this encounter Care Teams Porter Bath Relationship Specialty Start Date End Date Abbi Saha FNP [address] [place] [address] PCP - General Family Medicine 04/01/23 [place] [facility] 05/08/24 documented as of this encounter
--- OUTSIDE RECORDS SUMMARY | 2024-10-25 11:31 | XMS_ITS | Encounter Summary ---
Author Organization [employer] Address [address] [facility] 7t [place] [address] Care Team Providers Care Transit Worker Name Role Phone [place] [facility] Primary Care Provider [phone] Encounter Details Date Type Department Care Team ([facility] st Contact Info) Description 08/11/2023 Orders Only [facility] [address] [place], [place] [phone] [place] [facility] [address] [place], [place] [phone] Sensorineural hearing loss (SNHL) of both ears; Lower urinary tract symptoms (LUTS); Gait instability; Type 2 diabetes mellitus with hyperglycemia, without long-term current use of insulin ([facility]); Hammertoes of both feet; Diminished pulses in [...] Info) Description 12/15/2024 11:15 AM EDT Telemedicine [facility] [address] [place] [address] [facility] [address] [place] [address] 04/10/2025 10:00 AM EDT Office Visit [facility] ADULT DENTAL [address] [place] [address] Amber Conteh documented as of this encounter Procedures Procedure Name Priority Date/Time Associated Diagnosis Comments AMB REFERRAL TO ENT Routine 10/14/2023 Sensorineural hearing loss (SNHL) of both ears documented in this encounter Results * Referral to ENT (10/14/2023) [facility] OUTPATIENT REFERRAL ORDERABLE S Final Result documented in this encounter Visit Diagnoses Diagnosis Sensorineural hearing loss (SNHL) of both ears Lower urinary tract symptoms (LUTS) Gait instability Abnormality of gait Type 2 diabetes mellitus with hyperglycemia, without long-term current use of insulin ([facility]) Hammertoes of both feet Diminished pulses in lower extremity Facial skin lesion documented in this encounter Additional Health Concerns Assessment Noted Time PHQ-9 Depression Total Score: 0 07/02/20 23 9:13 AM EST documented as of this encounter Care Teams Transit Worker Relationship Specialty Start Date End Date Abbi Saha FNP [address] [place] [address] PCP - General Family Medicine 04/01/23 [place] GARCIA 05/08/24 documented as of this encounter
--- OUTSIDE RECORDS SUMMARY | 2024-10-25 11:31 | XMS_ITS | Encounter Summary ---
Author Organization [facility] Address [address] [facility] 7t [place] [address] Care Team Providers Care Pcb Design Engineer Name Role Phone Sandy Torrez MD Primary Care Provider Unava ilable [facility] Primary Care Provider [phone] Gogo Palacio [facility] Primary Care Provider [phone] [facility] Primary Care Provider [phone] Encounter Details Date Type Department Care Team (Latest Contact Info) Description 06/23/2021 Abstract [facility] CONVERSIONS Dental, Provider, DDS Social [...] Info) Description 12/15/2024 11:15 AM EDT Telemedicine [facility] MEDICINE [address] [place] [address] [facility] [address] [place], [place] [phone] 04/10/2025 10:00 AM EDT Office Visit [facility] ADULT DENTAL [address] [place], [place] [phone] Amber Conteh documented as of this encounter Visit Diagnoses Not on filedocumented in this encounter Care Teams Pcb Design Engineer Relationship Specialty Start Date End Date Sandy Torrez MD PCP - General Family Medicine 01/09/20 06/22/22 Abbi Saha FNP [address] [place] [address] PCP - General Family Medicine 06/23/22 03/28/23 Gogo Palacio FNP [address] [place] [address] PCP - General Family Medicine 03/29/23 03/31/23 Abbi Saha FNP [address] [place] [address] PCP - General Family Medicine [facility] documented as of this encounter
--- OUTSIDE RECORDS SUMMARY | 2024-10-25 11:31 | XMS_ITS | Encounter Summary ---
Author Organization [employer] Address [address] [facility] 7 [place] [address] Care Team Providers Care Laundry Attendant Name Role Phone Abbi Saha [facility] Primary Care Provider [phone] Reason for Visit * Reason Onset Date Comments chart prep 10/24/2024 Encounter Details Date Type Department Care Team ([facility] Contact Info) Description 10/24/2024 Telephone [facility] MEDICINE [address] [place], [place] [phone] [place] [facility] [address] [place] [address] chart prep Social History Tobacco Use Types Packs/Day Years [...] Telephone Encounter - Morena Langford [place] - 10/24/2024 1:30 PM EDT Chart Prep Labs: not done Images: done Vaccines due: yes Referrals: complete Overdue care gaps: A1c, Glucose, SDOH, PHQ-9, IRMA-7, and Tobacco documented in this encounter Plan of Treatment Upcoming Encounters Date Type Department Care Team (Late st Contact Info) Description 12/15/2024 11:15 AM EDT Telemedicine [facility] MEDICINE [address] [place] [address] [place], INSTRUCTOR OF SOCIOLOGY [address] [place] [address] 04/10/2025 10:00 AM EDT Office Visit [facility] ADULT DENTAL [address] [place] [address] Amber Conteh documented as of this encounter Visit Diagnoses Not on filedocumented in this encounter Additional Health Concerns Assessment Noted Time PHQ-9 Depression Total Score: 0 07/05/20 24 11:25 AM EST documented as of this encounter Care Teams Laundry Attendant Relationship Specialty Start Date End Date Abbi SahaROB [address] [place] [address] PCP - General Family Medicine 04/01/23 [place] GARCIA 05/08/24 documented as of this encounter
--- OUTSIDE RECORDS SUMMARY | 2024-10-25 11:31 | XMS_ITS | Clinical Summary ---
Author Organization [facility] Address [address] [facility] [address] [place] [address] Phone Care Team Providers Care Personnel Records Clerk Name Role Phone Unavailable Primary Care Provider [...] [facility] [address] [address] Rosanna Zamudio ARNP [address] [address] Health Maintenance Due Date Last Done Comments Diabetes: Ophthalmology Exam 11/11/2022 Diabetes: Pedal Pulse Checked 11/11/2022 Diabetes: Sensory Foot Exam 11/11/2022 Diabetes: Visual Foot Exam 11/11/2022 Diabetes: Hemoglobin A1C 01/21/2024 024, 09/11/2022 Influenza Vaccine (Season Ended) 2025 05/22/2019, 06/15/2018, 04/12/2017 Pneumococcal Vaccine: 65+ Years Completed 05/22/2019, 05/14/2015 Hepatitis B Vaccine Aged Out No longe r eligible based on patient's age to complete this topic Insurance
--- OUTSIDE RECORDS SUMMARY | 2024-10-25 11:31 | XMS_ITS | Clinical Summary ---
Author Organization [employer] Address [address] [facility] [address] [place] [address] Care Team Providers Care Hat Band Attacher Name Role Phone Abbi Saha [facility] Primary Care Provider [phone] Allergies No known active allergies Medications Diclofenac Sodium 1 % gel Apply 2 g topically every 6 (six) hours. 06/06/20 21 Active Lidocaine 4 % patch Apply to the affected area up to 3 times daily as needed Active sildenafil (Viagra) 100 MG tablet Take 1 tablet by mouth at bed time. Active Blood Glucose Monitoring Suppl (Reading Room Verio) w/Device kitIndications :Type 2 diabetes mellitus without complication, without long-term current use of insulin ([facility]) 1 kit before breakfast and before evening meal. 1 kit 06/24/20 22 Active acetaminophen (Tylenol) 325 MG tablet Take 2 tablets by mouth. Active cholecalcifero l (Vitamin D-3) 50 MCG (2000 UT) capsule [...] morning. 30 capsule 1 04/02/20 23 Active terazosin (Hytrin) 5 MG capsule Take 5 mg by mouth at bedtime. 08/09/19 24 Active psyllium (Metamucil Smooth Texture) 58.6 % powderIndicati ons:Type 2 diabetes mellitus with hyperglycemia, without long-term current use of insulin (CMS/HCC) Take 5.12 g (3 g of fiber) by mouth Once per day. 283 g 11 02/25/20 24 025 Active atorvastatin (Lipitor) 10 MG tablet TAKE 1 TABLET BY MOUTH EVERY EVENING 90 tablet 2 04/19/20 24 Active oxyCODONE (Roxicodone) 5 MG immediate release tablet 5 mg. 05/06/20 24 Active Creon 61051-67950 units capsule 2 capsules. 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 (CMS/HCC) TAKE 1 TABLET BY MOUTH EVERY MORNING 90 tablet 1 06/14/20 24 Active omeprazole (PriLOSEC) [address] capsuleIndicat ions:Dyspepsia TAKE 1 CAPSULE BY MOUTH TWICE DAILY 60 capsule 1 06/23/20 24 Active glucose blood (OneTouch Verio) test strip TEST BLOOD SUGAR TWICE A DAY 100 each 08/21/19 25 Active Multiple Vitamin (Multivitamin) tabletIndicati ons:Type 2 diabetes mellitus with hyperglycemia, without long-term current use of insulin (CMS/HCC) TAKE 1 TABLET BY MOUTH EVERY EVENING WITH FOOD 90 tablet 3 08/23/19 25 Active metFORMIN (Glucophage) 1000 MG tabletIndicati ons:Type 2 diabetes mellitus with hyperglycemia, without long-term current use of insulin (CMS/HCC) Take 1 tablet (1,000 mg) by mouth with breakfast and with evening meal. 60 tablet 09/08/19 25 026 Active SITagliptin (Januvia) 25 MG tabletIndicati ons:Type 2 diabetes mellitus with hyperglycemia, without long-term current use of insulin (CMS/HCC) Take 1 tablet (25 mg) by mouth Once per day. 30 tablet 11 09/08/19 25 026 Active Lancets (OneTouch Delica Plus [id number]) miscIndication s:Elevated blood sugar TEST BLOOD SUGAR TWICE DAILY 100 each 10/07/19 25 Active guaiFENesin 200 MG tabletIndicati ons:Acute cough Take 2 tablets (400 mg) by mouth every 4 (four) hours if needed for cough for up to 10 days. 30 suppository 10/26/19 25 025 Active benzonatate (Tessalon Perles) 100 MG capsuleIndicat ions:Acute cough Take 1 capsule (100 mg) by mouth if needed in the morning, at noon, and at bedtime for cough for up to 7 days. Do not crush or chew. 20 capsule 10/26/19 025 Active Lancets (OneTouch Delica Plus [id number]) miscIndication s:Elevated blood sugar TEST BLOOD SUGAR TWICE DAILY 100 each 09/21/19 025 Discontinued Active Problems Problem Noted Date Diagnosed Date Primary malignant neoplasm o f left lung metastatic to other site 07/05/2024 Overview (07/05/2024): New dx of metastatic NSCLC 04/2024.-- Presented [place] [facility] w1 with acute SOB. CT chest [...] of metastatic disease. PET-CT performed 05/30/24 at [facility] showed FDG avid loculated left-sided pleural [...] maintenance 10/16/2022 Overview (10/25/2022): Healthcare Maintenance: C[place]scope[place] [facility] [place], needs records PSA: Per urology HCV Screen: Neg 09/10 HIV Screen: Neg 09/10 Immunizations: UTD ?? Weight loss 09/17/2022 Diabetes 09/11/2022 Overview (02/25/2024): Farxiga 10mg daily Metformin 1000mg b.i.d Januvia 25 mg daily Foot Exam: Risk 0; followed by podiatry ([place]wick) Eye Exam: [facility] Eye care Statin: Yes ASA: No [...] Referral to podiatry for ongoing toe deformity (hammertoe) Assessment & Plan (05/19/2023 11:07 AM EDT): Lab Results Component Value Date HGBA1C 7.3 (A) 04/30/2023 ?? Well controlled ?? Continue current regimen ?? Repeat labs today ?? Has upcoming appointment for [facility] eye care Assessment & Plan (10/25/2022 [...] (05/19/2023 11:14 AM EDT): ?? Compliant with [employer] agreement ?? Only using tramadol 1x/week due to concern re addiction ?? Advised patient OK to take tramadol at bedtime nightly if pain interfering with sleep ?? Continue acetaminophen PRN during day ?? Continue lidocaine patch ?? Continue topical diclofenac gel ?? Continue acupuncture ?? PT referral for general gait instability Assessment & Plan (10/25/2022 1:09 PM EDT): ?? Will refer to [employer] REPRESENTATIVE RN Hypertensive disorder 04/12/2017 Overview (02/25/2024): Losartan [...] Encounters Date Type Department Care Team Description 10/25/2024 9:15 AM EDT Office Visit [facility] MEDICINE [address] [place] [phone] Abbi Saha FNP Acute cough (Primary Dx); Dietary counseling; Exercise counseling; Type 2 diabetes mellitus with hyperglycemia, without long-term current use of insulin ([facility]) 10/25/2024 Travel 10/24/2024 Telephone [facility] MEDICINE [address] [place] [phone] Abbi Saha FNP chart prep 10/06/2024 Refill [facility] MEDICINE [address] [place] [phone] Abbi Saha FNP Elevated blood sugar 09/26/2024 1:00 PM EDT Office Visit [facility] ADULT DENTAL [address] [place] [phone] Amber Conteh Dental plaque (Primary Dx); Dental calculus; Encounter for dental examination; Dental caries; Periodontal disease; Bone loss 09/20/2024 Telephone [facility] [place] [address] Abbi Saha FNP No Show 09/08/2024 3:15 PM EST Telemedicine [facility] MEDICINE [address] [place] [phone] Abbi Saha FNP Type 2 diabetes mellitus with hyperglycemia, without long-term current use of insulin ([facility]) (Primary Dx); Non-small cell cancer of left lung ([facility]) 09/08/2024 Travel 09/01/2024 Telephone [facility] [address] [place] [address] Lola Xie RN Blood Sugar Readings 08/31/[address] [address] Upper JayAbbi [facility] Patient Care Solution (Gauze, non-impregnated, steril, pad size 16 sq/) 08/22/2024 Orders Only [facility] External Provider, [facility] 08/22/2024 Refill [facility] MEDICINE [address] [place] [address] Upper JayAbbi robb [facility] Type 2 diabetes mellitus with hyperglycemia, without long-term current use of insulin ([facility]) 08/21/2024 Refill [facility] [address] [place], [place] [phone] Upper JayAbbi [facility] 08/21/2024 Refill [facility] MEDICINE [address] [place] [address] [facility] Abbi [facility] 08/17/[address] [address] Upper JayAbbi [facility] [employer] patient care solution (Gauze, non-impregnated, steril. Without adhesive border, each dressing.) 08/16/[address] [address] Upper JayAbbi [facility] [employer] Patient Care Solution (Transparent film >16<=48 in) from Last 3 Months Immunizations Name Administration Dates Next Due Influenza High-dose Quadriva lent Preservative Free 04/09/2023,04/17/2022,05/23/2021,05/07 Influenza injectable quadriv alent IIV4 with preservative 06/15/2018 Influenza, High Dose Seasona l, Preservative Free 05/15/2024,05/22/2019,04/12/2017 Pfizer Covid-19 Vaccine 12+ 05/15/2024, Pfizer Covid-19 Vaccine 12+ Bivalent 04/28/2022 Pneumococcal [...] Sign Reading Time Taken Comments Blood Pressure 123/72 10/25/2024 9:22 AM EDT Pulse 82 10/25/2024 9:22 AM EDT Temperature 37 ??C (98.6 ??F) 10/25/2024 9:22 AM EDT Respiratory Rate 20 10/25/2024 9:22 AM EDT Oxygen Saturation 100% 10/25/2024 9:22 AM EDT Inhaled Oxygen Concentration - - Weight 62.6 kg (138 lb) 10/25/2024 9:22 AM EDT Height 157.5 cm (5' 2 ) 10/25/2024 9:22 AM EDT Body Mass Index 25.24 10/25/2024 9:22 AM EDT Plan of Treatment Upcoming Encounters Date Type Department Care Team (Late st Contact Info) Description 12/15/2024 11:15 AM EDT Telemedicine [facility] MEDICINE [address] [place] [address] [facility] [address] [place] [address] 04/10/2025 10:00 AM EDT Office Visit [facility] ADULT DENTAL [address] [place] [address] Amber Conteh Health Maintenance Due Date Last Done Comments Alcohol/Substance Use Screening 1957 RSV Patients and Patients Aged 60 years or older (1 - 1-dose 75+ series) 2021 Diabetes: Urine Protein Screening 05/03/2024 05/03/2023, 01/06/2022, 01/30/2020 Lipid Panel 05/03/2024 05/03/2023, 08/20, 01/06/2022, Additional history exists Diabetes: Foot Exam 07/02/2024 07/02/2023, 07/02/2023, 07/02/2023 SDOH Screening 10/13/2024 10/14/2023 Dental Oral Exam 03/30/2025 09/26/2024, 09/25/2016 Dental Prophylaxis 03/30/2025 09/26/2024, 0 02/17/2024, 01/28/2022, Additional history exists Diabetes: Hemoglobin A1C 04/26/2025 025, 07/05/2024, 02/25/2024, Additional history exists Depression Screening 07/05/2025 07/05/2024, 07/05/20 Eye Exam 07/19/2025 07/19/2023 Dental X-Ray: Bitewings 09/27/2025 09/27/19 25, 02/17/2024, 11/26/2023, Additional history exists Tobacco Screening 10/25/2025 10/25/2024 Dental X-Ray: Full Mouth 09/28/2027 09/26/2024, 09/16 DTaP/Tdap/Td Vaccines (3 - Td or Tdap) [...] Diagnosis Comments XR CHEST 2 VIEWS Routine 10/25/2024 10:1 3 AM EDT Acute cough POCT GLYCATED HEMOGLOBIN, TOTAL Routine 10/25/2024 9:24 AM EDT Type 2 diabetes mellitus with hyperglycemia, without long-term current use of insulin ([facility]/HCC) POCT GLUCOSE Routine 10/25/2024 9:23 AM EDT Type 2 diabetes mellitus with hyperglycemia, without long-term current use of insulin (CMS/[facility]) PERIODIC ORAL EVALUATION - ESTABLISHED PATIENT Routine 09/26/2024 1:00 PM EDT Dental plaque Dental calculus Encounter for dental examination Dental caries Periodontal disease INTRAORAL - COMPLETE SERIES OF RADIOGRAPHIC IMAGES Routine 09/26/2024 1:00 PM EDT ORAL HYGIENE INSTRUCTIONS Routine 09/26/2024 1:00 PM EDT Dental plaque Dental calculus CASE PRESENTATION, DETAILED AND EXTENSIVE TREATMENT PLANNING Routine 09/26/2024 1:00 PM EDT PROPHYLAXIS - ADULT Routine 09/26/2024 1 :00 PM EDT Dental plaque Dental calculus PET/CT BONE SKULL BASE TO MID THIGH Routine 09/19/2024 12:01 PM EST XR CHEST 2 VIEWS Routine 08/22/2024 7:06 PM EST ALBUMIN, RANDOM URINE W/CREATININE Routine 05/03/2023 8:36 AM EDT Type 2 diabetes mellitus with hyperglycemia, without long-term current use of insulin (CMS/HCC) LIPID PANEL, STANDARD Routine 05/03/2023 8:36 AM EDT Type 2 diabetes mellitus with hyperglycemia, without long-term current use of insulin (CMS/HCC) HEPATITIS C AB W/REFL TO HCV RNA, QN, PCR Routine 09/11/2022 3:09 PM EST Healthcare maintenance from Last 3 Months or Most Recently Relevant to Health Maintenance Results * XR Chest 2 Views (10/25/2024 10:13 AM EDT) Only the most recent of2 resultswithin the time period is included. Anatomical Region Laterality Modality Chest Radiographic Brianna ging 10/25/2024 10:1 3 AM EDT Narrative 10/25/2024 10:32 AM EDT ?[facility] ?[address] ?[place] [address] ?XRay Report ? Signed ? Patient: Viki,Lei ?MR#: [id number] ? : 1945 ?Acct:[id number] ? Age/Sex: 79 / M ?ADM Date: 10/25/24 ? Loc: HO.HHCX ? Attending Dr: Abbi Saha LIFTER ? Ordering Physician: Abbi Saha LIFTER ?? Date of Service: 10/25/24 ?? Procedure(s): XR chest 2V ?? Accession Number(s): [id number] ? cc: Abbi Saha LIFTER ? EXAMINATION: ??XR CHEST 2 VIEWS ? HISTORY: 79 y.o male with metastatic lung cancer with acute cough, ?? chills x 1 week ? COMPARISON: Comparison is made with the prior examination dated ?? 08/22/2024. ? FINDINGS: ??PA and lateral views of the chest are submitted. The lungs ?? are expanded and clear. ??There is a tiny left pleural effusion which ?? has decreased in size since the prior study. There is no right pleural ?? effusion, pneumothorax, or pulmonary vascular congestion. ??The heart is ?? normal in size. ??There is degenerative disc disease of the spine. ? XR/XR chest 2V ?? IMPRESSION: ?? Tiny left pleural effusion which is smaller than on the prior study. ?? The lungs are clear. ? Electronically signed by: ??Jerzy Mosqueda MD ??10/25/2024 10:29 AM EDT ?? RP ? Dictated By: ?Jerzy Mosqueda MD ? Signed By: ?<Electronically signed by Jerzy Mosqueda MD in OV> ?10/25/24 1029 ? DD/ 1013 ? TD/TT: 10/25/24 1020 ? Construction Supervisor: ? Procedure Note Angela Bragg - 10/25/2024 [facility] [address] [facility] [place] [address] XRay Report Signed Patient: Herve DrewSusannah#: [id number] : 6Acct:[id number] Age/Sex: 79 / MADM Date: 10/25/24 Loc: HO.HHCX Attending Dr: Abbi RIVAS Ordering Physician: Abbi Saha Date of Service: 10/25/24 Procedure(s): XR chest 2V Accession Number(s): [id number] cc: Abbi Saha [facility] EXAMINATION: XR CHEST 2 VIEWS HISTORY: 79 y.o male with metastatic lung cancer with acute cough, chills x 1 week COMPARISON: Comparison is made with the prior examination dated 08/22/2024. FINDINGS: PA and lateral views of the chest are submitted. The lungs are expanded and clear. There is a tiny left pleural effusion which has decreased in size since the prior study. There is no right pleural effusion, pneumothorax, or pulmonary vascular congestion. The heart is normal in size. There is degenerative disc disease of the spine. XR/XR chest 2V IMPRESSION: Tiny left pleural effusion which is smaller than on the prior study. The lungs are clear. Electronically signed by: Jerzy Mosqueda MD 10/25/2024 10:29 AM EDT RP Dictated By: Jerzy Mosqueda MD Signed By: <Electronically signed by Jerzy Mosqueda MD in OV> 10/25/24 1029 DD/ 1013 TD/TT: 10/25/24 1020 Construction Supervisor: [facility] IMG XR PROCEDURES Final Resul t * (ABNORMAL) POCT HGB A1C (10/25/2024 9:24 AM EDT) Hemoglobin A1C 6.7(A) 4.0 - 6.0 % QC Media Lot # [id number] Lot# Expiration Date Blood 10/25/2024 9:24 AM EDT [facility] POINT OF CARE TEST ENTER/EDIT ORDERABLES Final Result * POCT Glucose (10/25/2024 9:23 AM EDT) [facility] Glucose Blood, POC 165 60 - 200 mg/dL QC Media Lot # [id number] Lot# Expiration Date Blood Capillary blood specimen / Unknown 10/25/2024 9:23 AM EDT [facility] LIFTER POINT OF CARE TEST ENTER/EDIT ORDERABLES Final Result * PET/CT Bone Skull Base to Mid Thigh (09/19/2024 12:01 PM EST) Anatomical Region Laterality Modality Body Computed Tomogra phy 09/19/2024 12:0 1 PM EST Narrative 09/20/2024 9:26 AM EST ? [facility] ?[address] ?[place] [address] ? PET Report ? Signed ? Patient: Viki,Lei ?MR#: [id number] ? : 1945 ?Acct:[id number] ? Age/Sex: 79 / M ?ADM Date: 09/19/24 ? Loc: HO.PET ? Attending Dr: Louisa Morales MD ? Ordering Physician: Louisa Morales MD ?? Date of Service: 09/19/24 ?? Procedure(s): PET CT fusion skull to thigh ?? Accession Number(s): [id number] ? cc: Louisa Morales MD; Abbi Saha ? EXAMINATION: ?? FLUORINE-18 FDG PET/CT SCAN ? CLINICAL INFORMATION: ?? Lung cancer for staging. ? TECHNIQUE: ?? 65 minutes following the intravenous administration of 16.3 mCi of ?? fluorine 18 FDG, images from the skull base to proximal thigh were ?? obtained using a combined PET/CT scanner with CT scan based attenuation ?? correction. No oral contrast was given. No intravenous contrast was ?? administered. Transverse, coronal, sagittal, and volume reconstruction ?? projections were obtained. The patient's blood glucose as determined by ?? a finger stick, was 107 mg/dL immediately prior to injection. ? The radiotracer was injected intravenously through left forearm, ?? without any complications. ? Total CT exam dose-length product 595 mGy-cm. ? * These CT images were obtained using dose optimization techniques as ?? appropriate, variously including the following: Automated exposure ?? control ?? * Adjustment of mA and/or kV according to patient size (this includes ?? techniques or standardized protocols for targeted exams where dose is ?? matched to indication/reason for exam; i.e. extremities or head) ?? * Use of iterative reconstruction technique ? COMPARISON: ?? None available. ? FINDINGS: ?? HEAD AND NECK: No abnormal FDG activity seen intracranially. On CT the ?? lateral ventricles are symmetrical but enlarged. No acute intracranial ?? abnormality seen on the limited images. ? There is a 8 mm lymph node left supraclavicular region with moderate ?? metabolic activity on axial slice 214/[address] slice 213/2 ? CHEST: ?? Ports and Devices: None ? Lungs: No abnormal radiotracer uptake. ? Pleura: No significant pleural effusion. ? Lymph Nodes: There is a 1.1 cm metabolically active right paratracheal ?? lymph node on axial CT slice 208/2. Additional small lymph nodes in the ?? pretracheal and right paratracheal space which is metabolically active. ?? These lymph nodes measure approximately 7 to 8 mm less visualized on ?? the slice 202/3. Abnormal moderate metabolic activity seen in bilateral ?? precarinal and paratracheal lymph nodes.. The lymph nodes measure ?? approximately 2 cm in maximum long dimension on axial CT slice 189/2. ?? Left parahilar lymph node measured 1.1 cm and metabolically active. ?? There are subcarinal lymph nodes as well. ? Mediastinum: On CT central trachea and the bronchi are widely patent. ?? Heart size and the great vessels are normal caliber. No pericardial ?? effusion seen. ? Breasts/Chest Wall: No abnormal radiotracer uptake. No abnormal ?? axillary lymph nodes seen. ? ABDOMEN/PELVIS: ?? Liver/Biliary System: No focal tracer-avid liver lesion. The ?? gallbladder appears unremarkable. ? Pancreas: Normal.No abnormal metabolic activity. ? Spleen: No abnormal radiotracer uptake. No evidence of splenomegaly. ? Adrenal Glands: No abnormal radiotracer uptake. ? Kidneys: No hydronephrosis, hydroureter or renal calculi bilaterally. ? Bowel: Scattered metabolic activity seen in the colon likely related to ?? bacterial finesse. There is large amount of stool and gas in colon ?? without distention. The small bowel loops are normal caliber. Appendix ?? is not seen. ? Lymph Nodes: No tracer avid retroperitoneal, mesenteric or pelvic ?? and/or groin lymphadenopathy. ? Pelvic Organs: The urinary bladder is underdistended. ? MUSCULOSKELETAL: Mild metabolic activity seen in the right sternal ?? clavicle joint which correspond to degenerative arthritic changes ? VASCULAR: The abdominal aorta is of normal caliber. ? PET/PET CT fusion skull to thigh ?? IMPRESSION: ?? Abnormal FDG activity in mediastinal lymph nodes, right paratracheal ?? lymph nodes and left supra clavicular lymph nodes consistent with ?? metastatic disease. ? There is no abnormal FDG activity seen in the lung parenchyma, pleura ?? or the axilla. ? Electronically signed by: ??Ovidio Oliva MD ??09/20/2024 09:23 AM EST RP ? Dictated By: ?Ovidio Oliva MD ? Signed By: ?<Electronically signed by Ovidio Oliva MD in OV> ?09/20/24 0923 ? DD/ 1201 ? TD/TT: 09/19/24 1500 ? Construction Supervisor: MSM ? Procedure Note [place], Image - 09/20/2024 [place] [address] PET Report Signed Patient: Scottie Drew#: [id number] : 1945cct:[id number] Age/Sex: 79 / MADM Date: 09/19/24 Loc: HO.PET Attending Dr: Louisa Morales MD Ordering Physician: Louisa Morales MD Date of Service: 09/19/24 Procedure(s): PET CT fusion skull to thigh Accession Number(s): [id number] cc: Louisa Morales MD; Abbi Saha [facility] EXAMINATION: FLUORINE-18 FDG PET/CT SCAN CLINICAL INFORMATION: Lung cancer for staging. TECHNIQUE: 65 minutes following the intravenous administration of 16.3 mCi of fluorine 18 FDG, images from the skull base to proximal thigh were obtained using a combined PET/CT scanner with CT scan based attenuation correction. No oral contrast was given. No intravenous contrast was administered. Transverse, coronal, sagittal, and volume reconstruction projections were obtained. The patient's blood glucose as determined by a finger stick, was 107 mg/dL immediately prior to injection. The radiotracer was injected intravenously through left forearm, without any complications. Total CT exam dose-length product 595 mGy-cm. * These CT images were obtained using dose optimization techniques as appropriate, variously including the following: Automated exposure control * Adjustment of mA and/or kV according to patient size (this includes techniques or standardized protocols for targeted exams where dose is matched to indication/reason for exam; i.e. extremities or head) * Use of iterative reconstruction technique COMPARISON: None available. FINDINGS: HEAD AND NECK: No abnormal FDG activity seen intracranially. On CT the lateral ventricles are symmetrical but enlarged. No acute intracranial abnormality seen on the limited images. There is a 8 mm lymph node left supraclavicular region with moderate metabolic activity on axial slice 214/[address] slice 213/2 CHEST: Ports and Devices: None Lungs: No abnormal radiotracer uptake. Pleura: No significant pleural effusion. Lymph Nodes: There is a 1.1 cm metabolically active right paratracheal lymph node on axial CT slice 208/2. Additional small lymph nodes in the pretracheal and right paratracheal space which is metabolically active. These lymph nodes measure approximately 7 to 8 mm less visualized on the slice 202/3. Abnormal moderate metabolic activity seen in bilateral precarinal and paratracheal lymph nodes.. The lymph nodes measure approximately 2 cm in maximum long dimension on axial CT slice 189/2. Left parahilar lymph node measured 1.1 cm and metabolically active. There are subcarinal lymph nodes as well. Mediastinum: On CT central trachea and the bronchi are widely patent. Heart size and the great vessels are normal caliber. No pericardial effusion seen. Breasts/Chest Wall: No abnormal radiotracer uptake. No abnormal axillary lymph nodes seen. ABDOMEN/PELVIS: Liver/Biliary System: No focal tracer-avid liver lesion. The gallbladder appears unremarkable. Pancreas: Normal.No abnormal metabolic activity. Spleen: No abnormal radiotracer uptake. No evidence of splenomegaly. Adrenal Glands: No abnormal radiotracer uptake. Kidneys: No hydronephrosis, hydroureter or renal calculi bilaterally. Bowel: Scattered metabolic activity seen in the colon likely related to bacterial finesse. There is large amount of stool and gas in colon without distention. The small bowel loops are normal caliber. Appendix is not seen. Lymph Nodes: No tracer avid retroperitoneal, mesenteric or pelvic and/or groin lymphadenopathy. Pelvic Organs: The urinary bladder is underdistended. MUSCULOSKELETAL: Mild metabolic activity seen in the right sternal clavicle joint which correspond to degenerative arthritic changes VASCULAR: The abdominal aorta is of normal caliber. PET/PET CT fusion skull to thigh IMPRESSION: Abnormal FDG activity in mediastinal lymph nodes, right paratracheal lymph nodes and left supra clavicular lymph nodes consistent with metastatic disease. There is no abnormal FDG activity seen in the lung parenchyma, pleura or the axilla. Electronically signed by: Ovidio Oliva MD 09/20/2024 09:23 AM [facility] Dictated By: Ovidio Oliva MD Signed By: <Electronically signed by Ovidio Oliva MD in OV> 09/20/24 0923 DD/ 1201 TD/TT: 09/19/24 1500 Construction Supervisor: FARTUN [facility] External Provider IMG CT PROCEDURES Edited Result - Final * Albumin, Random Urine W/Creatinine (05/03/2023 8:36 AM EDT) Creatinine, Urine 54.13 mg/dL [facility] Microalbumin Urine 8.0 mg/L [facility] Microalbum Creatinine Ratio Ur 14.7 <30 ug/mg cr [facility] Comment:Albumin/Creatinine R atio Reference Ranges: Normal: < 30 ug/mg creatinine Microalbuminuria: 30 - 300 ug/mg creatinineClinical Albuminuria: > 300 ug/mg creatinine Urine 05/03/2023 8:36 AM EDT 05/03/2023 11:07 AM EDT [facility] LAB URINE ORDERABLES Final Re sult Performing Organization Address [facility] Co de Phone Number [facility] [address] [place] [address] [phone] * Lipid Panel, Standard (05/03/2023 8:36 AM EDT) Triglycerides 83 <150 mg/dL [facility] Comment:Desirable Triglyceri de: less than 150 mg/dLBorderline High Triglyceride 150-199 mg/dLHigh Triglyceride: 200-499 mg/dLVery High Triglyceride: greater than or equal to 5OO mg/dL Cholesterol 136 <200 mg/dL [facility] Comment:Desirable Cholestero l: less than 200 mg/dLBorderline High Cholesterol: 200-239 mg/dLHigh Cholesterol: greater than 239 mg/dL LDL Cholesterol Calculated 54 <100 mg/dL [facility] Comment:Desirable LDL: less than 100 mg/dLNear Optimal/Above Optimal LDL: 110- 129 mg/dLBorderline High LDL: 130-159 mg/dLHigh LDL: 160-189 mg/dLVery High LDL: greater than or equal to 190 mg/dL HDL Cholesterol 66 >40 mg/dL [facility] Comment:Desirable HDL: great er than 40 mg/dL Note: This HDL assay may give artificially low results in patients with liver disease. Blood Venous blood specimen / Unknown 05/03/2023 8:36 AM EDT 05/03/2023 11:13 AM EDT [facility] LAB BLOOD ORDERABLES Final Re sult Performing Organization Address [facility] Co de Phone Number [facility] [address] [place] [address] [phone] * Hepatitis C Antibody with Reflex to HCV, RNA, Quantitative, Real-Time PCR (09/11/2022 3:09 PM EST) Hepatitis C Antibody NON-REACT VAHID NON-REACT VAHID [facility] [place] Index <0.02 <1.00 [facility] [place] Comment: HCV antibody was non-reactive. There is no laboratory evidence of HCV infection. In most cases, no further action is required. However, if recent HCV exposure is suspected, a test for HCV RNA (test code 36957) is suggested. For additional information please refer to http://education.[employer]/faq/AHX34s4 (This link is being provided for informational/ educational purposes only.) Blood Venous blood specimen / Unknown 09/11/2022 3:09 PM EST 09/11/2022 3:09 PM EST Narrative [facility] - 09/14/2022 1:32 PM EST FASTING:NO FASTING: NO [facility] LAB BLOOD ORDERABLES Final Re sult [facility] [address] [facility] [facility], [place] [address] [employer] [facility] [address] [facility], ([address]) [place] [address] from Last 3 Months or Most Recently Relevant to Health Maintenance Insurance [facility] Care Teams Hat Band Attacher Relationship Specialty Start Date End Date Abbi Saha FNP [address] [place] [address] PCP - General Family Medicine 04/01/23 [place] GARCIA 05/08/24
--- OUTSIDE RECORDS SUMMARY | 2024-10-25 11:31 | XMS_ITS | Encounter Summary ---
Author Organization [employer] Address [address] [facility] [address] [place] [address] Care Team Providers Care Accounting Director Name Role Phone Maria A Abbi [facility] Primary Care Provider [phone] Encounter Details Date Type Department Care Team ([facility] st Contact Info) Description 10/25/2024 9:15 AM EDT Office Visit [facility] MEDICINE [address] [place], [place] [phone] Abbi Saha [facility] [address] [place], [place] [phone] Acute cough (Primary Dx); Dietary counseling; Exercise counseling; Type 2 diabetes mellitus with hyperglycemia, without long-term current use of insulin ([facility]) Social History Tobacco Use Types Packs/Day Years [...] the past 12 months, has t he flexReceipts, gas, oil or water company threatened to [...] PM EST documented as of this encounter Last Filed Vital Signs Vital Sign Reading [...] Mass Index 25.24 10/25/2024 9:22 AM EDT documented in this encounter Plan of Treatment Upcoming Encounters Date Type Department Care Team (Late st Contact Info) Description 12/15/2024 11:15 AM EDT Telemedicine [facility] MEDICINE [address] [place] [address] [facility], [facility] [address] [place] [address] 04/10/2025 10:00 AM EDT Office Visit [facility] ADULT DENTAL [address] [place] [address] Amber Conteh documented as of this encounter Procedures Procedure Name Priority Date/Time Associated Diagnosis Comments XR CHEST 2 VIEWS Routine 10/25/2024 10:1 3 AM EDT Acute cough POCT GLYCATED HEMOGLOBIN, TOTAL Routine 10/25/2024 9:24 AM EDT Type 2 diabetes mellitus with hyperglycemia, without long-term current use of insulin ([facility]) POCT GLUCOSE Routine 10/25/2024 9:23 AM EDT Type 2 diabetes mellitus with hyperglycemia, without long-term current use of insulin ([facility]) documented in this encounter Results * XR Chest 2 Views (10/25/2024 10:13 AM EDT) Anatomical Region Laterality Modality Chest Radiographic Brianna ging 10/25/2024 10:1 3 AM EDT Narrative 10/25/2024 10:32 AM EDT ?[facility] ?[address] ?[place] [address] ?XRay Report ? Signed ? Patient: Lei Drew ?MR#: [id number] ? : 1945 ?Acct:[id number] ? Age/Sex: 79 / M ?ADM Date: 10/25/24 ? Loc: HO.HHCX ? Attending Dr: Abbi Saha [employer] ? Ordering Physician: Abbi Saha [employer] ?? Date of Service: 10/25/24 ?? Procedure(s): XR chest 2V ?? Accession Number(s): [id number] ? cc: Abbi Saha [employer] ? EXAMINATION: ??XR CHEST 2 VIEWS ? [...] ??Jerzy Mosqueda MD ??10/25/2024 10:29 AM EDT ? Dictated By: ?Jerzy Mosqueda MD ? Signed By: ?<Electronically signed by Jerzy Mosqueda MD in OV> ?10/25/24 1029 ? DD/ 1013 ? TD/TT: 10/25/24 1020 ? Strip Cutter: ? Procedure Note Angela Bragg - 10/25/2024 [place] [address] XRay Report Signed Patient: Scottie Drew#: [id number] : 6Acct:[id number] Age/Sex: 79 / MADM Date: 10/25/24 Loc: HO.HHCX Attending Dr: Abbi Saha [employer] Ordering Physician: Abbi Saha Date of Service: 10/25/24 Procedure(s): XR chest 2V Accession Number(s): [id number] cc: Abbi Saha EXAMINATION: XR CHEST 2 VIEWS HISTORY: 79 [...] Jerzy Mosqueda MD 10/25/2024 10:29 AM EDT Dictated By: Jerzy Mosqueda MD Signed By: <Electronically signed by Jerzy Mosqueda MD in OV> 10/25/24 1029 DD/ 1013 TD/TT: 10/25/24 1020 Strip Cutter: [facility] IMG XR PROCEDURES Final Resul t * (ABNORMAL) POCT HGB A1C (10/25/2024 9:24 AM EDT) Hemoglobin A1C 6.7(A) 4.0 - 6.0 % QC Media Lot # [id number] Lot# Expiration Date , Blood 10/25/2024 9:24 AM EDT [facility] POINT OF CARE TEST ENTER/EDIT ORDERABLES Final Result * POCT Glucose (10/25/2024 9:23 AM EDT) Glucose Blood, POC 165 60 - 200 mg/dL [employer] Lot # [id number] Lot# Expiration Date ,025 Blood Capillary blood specimen / Unknown 10/25/2024 9:23 AM EDT [facility] POINT OF CARE TEST ENTER/EDIT ORDERABLES Final Result documented in this encounter Visit Diagnoses Diagnosis Acute cough- Primary Dietary counseling Dietary surveillance and counseling Exercise counseling Type 2 diabetes mellitus with hyperglycemia, without long-term current use of insulin ([facility]) documented in this encounter Additional Health Concerns Assessment Noted Time PHQ-9 Depression Total Score: 0 07/05/20 24 11:25 AM EST documented as of this encounter Care Teams Accounting Director Relationship Specialty Start Date End Date Abbi Saha FNP [address] [place] [phone] PCP - General Family Medicine 04/01/23 [place] 05/08/24 documented as of this encounter
== END 2024-10-25 10:13 | disposition home or self-care (01) ==
LOC: HO.HHCX 10:12
PROVIDERS: Visit Provider Registered Nurse
DX: R05.1 Acute cough (principal)
CPT/HCPCS: 71046

== ENCOUNTER → 2024-10-25 10:13 | Outpatient (BNV) | payer OTHER, SELFPAY | PROVIDERS: Visit Provider Radiology Diagnostic Radiology | DX: J90 Pleural effusion, not elsewhere classified (principal) | CPT/HCPCS: 71046 ==

== ENCOUNTER 2024-11-14 10:59 | Outpatient (REF) | payer OTHER, SELFPAY ==
--- OUTSIDE RECORDS SUMMARY | 2024-11-14 12:46 | XMS_ITS | Clinical Summary ---
Author Organization [facility] Address [address] [place] [address] Phone Care Team Providers Care Mill Attendant Name Role Phone Unavailable Primary Care Provider [...]
--- OUTSIDE RECORDS SUMMARY | 2024-11-14 12:46 | XMS_ITS | Clinical Summary ---
Author Organization [facility] Address [address] [facility] [address] [place] [address] Phone Care Team Providers Care Yard Foreman Name Role Phone Unavailable Primary Care Provider [...] Visit [facility] [address] [address] Rosanna Zamudio ARNP [address] [address] Health Maintenance Due Date Last Done Comments Diabetes: Ophthalmology Exam 11/11/2022 Diabetes: Pedal Pulse Checked 11/11/2022 Diabetes: Sensory Foot Exam 11/11/2022 Diabetes: Visual Foot Exam 11/11/2022 Diabetes: Hemoglobin A1C 01/21/2024 024, 09/11/2022 Influenza Vaccine (Season Ended) 2025 05/22/2019, 06/15/2018, 04/12/2017 Pneumococcal Vaccine: 50+ Years Completed 05/22/2019, 05/14/2015 Pneumococcal Vaccine: Peds ( 0 to 5 Years) and At-Risk Patients (6 to 49 Years) Discontinued 05/22/2019, 05/14/2015 Hepatitis B Vaccine Aged Out No longe r eligible based on patient's age to complete this topic Insurance [facility] Medicare Medicaid [place]
--- OUTSIDE RECORDS SUMMARY | 2024-11-14 12:46 | XMS_ITS | Encounter Summary ---
Author Organization [employer] Address [address] [facility] 7[address] [place] [address] Care Team Providers Care Career Development Director Name Role Phone [facility] Primary Care Provider [phone] Encounter Details Date Type Department Care Team ([facility] st Contact Info) Description 08/11/2023 Orders Only [facility] MEDICINE [address] [place], [place] [phone] [facility] [address] [place], [place] [phone] Sensorineural hearing loss (SNHL) of both ears; Lower urinary tract symptoms (LUTS); Gait instability; Type 2 diabetes mellitus with hyperglycemia, without long-term current use of insulin ([facility]); Hammertoes of both feet; Diminished [...] Info) Description 12/15/2024 11:15 AM EDT Telemedicine [facility] MEDICINE [address] [place] [address] [facility] [address] [place] [address] 04/10/2025 10:00 AM EDT Office Visit [facility] ADULT DENTAL [address] [place] [address] Amber Conteh documented as of this encounter Procedures Procedure Name Priority Date/Time Associated Diagnosis Comments AMB REFERRAL TO ENT Routine 10/14/2023 Sensorineural hearing loss (SNHL) of both ears documented in this encounter Results * Referral to ENT (10/14/2023) [facility] OUTPATIENT REFERRAL ORDERABLE S Final Result documented in this encounter Visit Diagnoses Diagnosis Sensorineural hearing loss (SNHL) of both ears Lower urinary tract symptoms (LUTS) Gait instability Abnormality of gait Type 2 diabetes mellitus with hyperglycemia, without long-term current use of insulin ([facility]) Hammertoes of both feet Diminished pulses in lower extremity Facial skin lesion documented in this encounter Additional Health Concerns Assessment Noted Time PHQ-9 Depression Total Score: 0 07/02/20 23 9:13 AM EST documented as of this encounter Care Teams Career Development Director Relationship Specialty Start Date End Date Abbi Saha FNP [address] [facility] [place] [address] PCP - General Family Medicine 04/01/23 [place] GARCIA 05/08/24 documented as of this encounter
--- OUTSIDE RECORDS SUMMARY | 2024-11-14 12:46 | XMS_ITS | Encounter Summary ---
Author Organization [employer] Address [address] [facility] 7[address] [place] [address] Care Team Providers Care Shipboard Intelligence Analyst Name Role Phone [facility] Primary Care Provider Reason for Visit * Reason Comments Med Refill Encounter Details Date Type Department Care Team ([facility] Contact Info) Description 07/16/2024 Refill [facility] MEDICINE [address] [place], [place] [phone] [facility] [address] [place] [address] Type 2 diabetes mellitus with hyperglycemia, without long-term current use of insulin ([facility]) Social History Tobacco Use Types Packs/Day Years [...] Info) Description 12/15/2024 11:15 AM EDT Telemedicine [facility] MEDICINE [address] [place] [phone] Abbi Saha FNP [address] [place] [address] 04/10/2025 10:00 AM EDT Office Visit [facility] ADULT DENTAL [address] [place] [address] Amber Conteh documented as of this encounter Visit Diagnoses Diagnosis Type 2 diabetes mellitus with hyperglycemia, without long-term current use of insulin ([facility]) documented in this encounter Additional Health Concerns Assessment Noted Time PHQ-9 Depression Total Score: 0 07/05/20 24 11:25 AM EST documented as of this encounter Care Teams Shipboard Intelligence Analyst Relationship Specialty Start Date End Date Abbi Saha FNP [address] [place] [address] PCP - General Family Medicine 04/01/23 [place] VNA 05/08/24 documented as of this encounter
--- OUTSIDE RECORDS SUMMARY | 2024-11-14 12:46 | XMS_ITS | Clinical Summary ---
Author Organization [employer] Address [address] [facility] 7t [place] [address] Care Team Providers Care High School Counselor Name Role Phone Abbi Saha [facility] Primary Care Provider [phone] Allergies No known active allergies Medications Diclofenac Sodium 1 % gel Apply 2 g topically every 6 (six) hours. 06/06/20 21 Active Lidocaine 4 % patch Apply to the affected area up to 3 times daily as needed Active sildenafil (Viagra) 100 MG tablet Take 1 tablet by mouth at bed time. Active Blood Glucose Monitoring Suppl (Calendly Verio) w/Device kitIndications :Type 2 diabetes mellitus without complication, without long-term current use of insulin ([facility]) 1 kit before breakfast and [...] hyperglycemia, without long-term current use of insulin (CMS/[facility]) Take 5.12 g (3 g of fiber) by mouth Once per day. 283 g 11 02/25/20 24 025 Active atorvastatin (Lipitor) 10 MG tablet TAKE 1 TABLET BY MOUTH EVERY EVENING 90 tablet 2 04/19/20 24 Active oxyCODONE (Roxicodone) 5 MG immediate release tablet 5 mg. 05/06/20 24 Active Creon 17930-50732 units capsule 2 capsules. 04/19/20 24 Active Farxiga 10 MGIndications: Type 2 diabetes mellitus with other specified complication, unspecified whether senior care insulin use (CMS/[facility]) TAKE 1 TABLET BY MOUTH EVERY MORNING 90 tablet 1 06/14/20 24 Active glucose blood (OneTouch Verio) test strip TEST BLOOD SUGAR TWICE A DAY 100 each 08/21/19 25 Active Multiple Vitamin (Multivitamin) tabletIndicati ons:Type 2 diabetes mellitus with hyperglycemia, without long-term current use of insulin (CMS/[facility]) TAKE 1 TABLET BY MOUTH EVERY EVENING WITH FOOD 90 tablet 3 08/23/19 25 Active metFORMIN (Glucophage) 1000 MG tabletIndicati ons:Type 2 diabetes mellitus with hyperglycemia, without long-term current use of insulin ([facility]) Take 1 tablet (1,000 mg) by mouth with breakfast and with evening meal. 60 tablet 11 09/08/19 25 026 Active SITagliptin (Januvia) 25 MG tabletIndicati ons:Type 2 diabetes mellitus with hyperglycemia, without long-term current use of insulin ([facility]) Take 1 tablet (25 mg) by mouth Once per day. 30 tablet 09/08/19 25 026 Active Lancets (OneTouch Delica Plus Portoy06X) miscIndication s:Elevated blood sugar TEST BLOOD SUGAR TWICE DAILY 100 each 11 10/07/19 25 Active omeprazole (PriLOSEC) [address] capsuleIndicat ions:Dyspepsia TAKE 1 CAPSULE BY MOUTH TWICE DAILY 60 capsule 2 10/31/19 25 Active omeprazole (PriLOSEC) [address] capsuleIndicat ions:Dyspepsia TAKE 1 CAPSULE BY MOUTH TWICE DAILY 60 capsule 1 06/23/20 24 025 Discontinued guaiFENesin 200 MG tabletIndicati ons:Acute cough Take 2 tablets (400 mg) by mouth every 4 (four) hours if needed for cough for up to 10 days. 30 suppository 10/26/19 25 025 benzonatate (Tessalon Perles) 100 MG capsuleIndicat ions:Acute cough Take 1 capsule (100 mg) by mouth if needed in the morning, at noon, and at bedtime for cough for up to 7 days. Do not crush or chew. 20 capsule 10/26/19 25 025 azithromycin (Zithromax) 500 MG tabletIndicati ons:Acute cough Take 1 tablet (500 mg) by mouth Once per day for 3 days. Take 1 tablet daily for 3 days. 3 tablet 10/26/19 25 025 Active Problems Problem Noted Date Diagnosed Date Primary malignant neoplasm o f left lung metastatic to other site 07/05/2024 Overview (07/05/2024): New dx of metastatic NSCLC 04/2024.-- Presented to [facility] ED w1 with acute SOB. CT chest [...] of metastatic disease. PET-CT performed 05/30/24 at [facility] showed FDG avid loculated left-sided pleural effusion [...] maintenance 10/16/2022 Overview (10/25/2022): Healthcare Maintenance: C-scope: [facility] 2021, needs records PSA: Per urology HCV [...] (05/19/2023 11:14 AM EDT): ?? Compliant with [employer] WORK[employer] agreement ?? Only using tramadol 1x/week due to concern re addiction ?? Advised patient OK to take tramadol at bedtime nightly if pain interfering with sleep ?? Continue acetaminophen PRN during day ?? Continue lidocaine patch ?? Continue topical diclofenac gel ?? Continue acupuncture ?? PT referral for general gait instability Assessment & Plan (10/25/2022 1:09 PM EDT): ?? Will refer to [employer]EL WORK[employer] RN Hypertensive disorder 04/12/2017 Overview (02/25/2024): Losartan [...] Encounters Date Type Department Care Team Description 11/02/2024 Telephone [facility] MEDICINE [address] [place] [address] Abbi Saha FNP Durable Medical Equipment ([facility] Form: Transparent Film ) 10/29/2024 Refill [facility] MEDICINE [address] [place] [address] Abbi Saha FNP Dyspepsia 10/25/2024 9:15 AM EDT Office Visit [facility] [address] [place] [address] Abbi Saha FNP Type 2 diabetes mellitus with hyperglycemia, without long-term current use of insulin ([facility]) (Primary Dx); Acute cough; Sensorineural hearing loss (SNHL) of both ears; Dietary counseling; Exercise counseling 10/25/2024 Travel 10/24/2024 Telephone [facility] MEDICINE [address] [place] [address] Abbi Saha FNP chart prep 10/06/2024 Refill [facility] MEDICINE [address] [place] [address] Abbi Saha FNP Elevated blood sugar 09/26/2024 1:00 PM EDT Office Visit [facility] ADULT DENTAL [address] [place] [address] Amber Conteh Dental plaque (Primary Dx); Dental calculus; Encounter for dental examination; Dental caries; Periodontal disease; Bone loss 09/20/2024 Telephone [facility] MEDICINE [address] [place] [address] SunsetAbbi [facility] No Show 09/08/2024 3:15 PM EST Telemedicine [facility] MEDICINE [address] [place] [address] SunsetAbbi [facility] Type 2 diabetes mellitus with hyperglycemia, without long-term current use of insulin ([facility]) (Primary Dx); Non-small cell cancer of left lung ([facility]) 09/08/2024 Travel 09/01/[address] [address] Lola Xie RN Blood Sugar Readings 08/31/[address] [address] SunsetAbbi [facility] [employer] Patient Care Solution (Gauze, non-impregnated, steril, pad size 16 sq/) 08/22/2024 Orders Only [facility] External Provider, [facility] 08/22/2024 Refill [facility] MEDICINE [address] [place] [address] Abbi Saha FNP Type 2 diabetes mellitus with hyperglycemia, without long-term current use of insulin ([facility]) 08/21/2024 Refill [facility] [address] [place], [place] [phone] SunsetAbbi [facility] 08/21/2024 Refill [facility] MEDICINE [address] [place] [address] SunsetAbbi [facility] 08/17/2024 Telephone [facility] [address] [place] [address] SunsetAbbi [facility] [employer] patient care solution (Gauze, non-impregnated, steril. Without adhesive border, each dressing.) 08/16/2024 Telephone [facility] [address] [place] [address] [place], [place], [facility] (Transparent film >16<=48 [...] Info) Description 12/15/2024 11:15 AM EDT Telemedicine [facility] MEDICINE [address] [place] [address] Abbi Saha FNP [address] [place] [address] 04/10/2025 10:00 AM EDT Office Visit [facility] ADULT DENTAL [address] [place] [address] Amber Conteh Health Maintenance Due Date Last Done Comments Alcohol/Substance Use Screening 1957 RSV Patients and Patients Aged 60 years or older (1 - 1-dose 75+ series) 2021 Diabetes: Urine Protein Screening 05/03/2024 05/03/2023, 01/06/2022, 01/30/2020 Lipid Panel 05/03/2024 05/03/2023, 08/20, 01/06/2022, Additional history exists SDOH Screening 10/13/2024 10/14/2023 Dental Oral Exam 03/30/2025 09/26/2024, 09/25/2016 Dental Prophylaxis 03/30/2025 09/26/2024, 0 02/17/2024, 01/28/2022, Additional history exists Diabetes: Hemoglobin A1C 04/26/2025 025, 07/05/2024, 02/25/2024, Additional history exists Depression Screening 07/05/2025 07/05/2024, 07/05/20 Eye Exam 07/19/2025 07/19/2023 Dental X-Ray: Bitewings 09/27/2025 09/27/19, 02/17/2024, 11/26/2023, Additional history exists Diabetes: Foot Exam 10/25/2025 10/25/2024, 10/25/2024, 07/02/2023, Additional history exists Tobacco Screening 10/27/2025 10/27/2024 Dental X-Ray: Full Mouth 09/28/2027 09/26/2024, 09/16 [...] hyperglycemia, without long-term current use of insulin ([facility]) POCT GLUCOSE Routine 10/25/2024 9:23 AM EDT Type 2 diabetes mellitus with hyperglycemia, without long-term current use of insulin ([facility]) PERIODIC ORAL EVALUATION - ESTABLISHED PATIENT Routine [...] hyperglycemia, without long-term current use of insulin ([facility]) LIPID PANEL, STANDARD Routine 05/03/2023 8:36 AM [...] AM EDT Narrative 10/25/2024 10:32 AM EDT ?[facility] ?[address] ?[place] [address] ?XRay Report ? Signed ? Patient: Viki,Lei ?MR#: [id number] ? : 1945 ?Acct:[id number] ? Age/Sex: 79 / M ?ADM Date: 10/25/24 ? Loc: HO.HHCX ? Attending Dr: Abbi Saha ROUTING MACHINE OPERATOR ? Ordering Physician: Abbi Saha ROUTING MACHINE OPERATOR ?? Date of Service: 10/25/24 ?? Procedure(s): XR chest 2V ?? Accession Number(s): [id number] ? cc: Abbi Saha ROUTING MACHINE OPERATOR ? EXAMINATION: ??XR CHEST 2 VIEWS ? [...] DD/ 1013 ? TD/TT: 10/25/24 1020 ? Wire Basket Maker: ? Procedure Note Donkaty, Image - 10/25/2024 [facility] [address] [place] [address] XRay Report Signed Patient: Scottie Drew#: [id number] : 1945cct:[id number] Age/Sex: 79 / MADM Date: 10/25/24 Loc: HO.HHCX Attending Dr: Abbi RIVAS Ordering Physician: Abbi Saha Date of Service: 10/25/24 Procedure(s): XR chest 2V Accession Number(s): [id number] cc: Abbi Saha [facility] EXAMINATION: XR CHEST 2 VIEWS HISTORY: 79 [...] 10/25/24 1029 DD/ 1013 TD/TT: 10/25/24 1020 Wire Basket Maker: [facility] IMG XR PROCEDURES Final Resul t * (ABNORMAL) POCT HGB A1C (10/25/2024 9:24 AM EDT) Hemoglobin A1C 6.7(A) 4.0 - 6.0 % QC Media Lot # [id number] Lot# Expiration Date 05,026 Blood 10/25/2024 9:24 AM EDT [facility] ROUTING MACHINE OPERATOR POINT OF CARE TEST ENTER/EDIT ORDERABLES Final Result * POCT Glucose (10/25/2024 9:23 AM EDT) Glucose Blood, POC 165 60 - 200 mg/dL QC Media Lot # [id number] Lot# Expiration Date ,025 Blood Capillary blood specimen / Unknown 10/25/2024 9:23 AM EDT [facility] POINT OF CARE TEST ENTER/EDIT ORDERABLES Final Result * PET/CT Bone Skull Base to Mid Thigh (09/19/2024 12:01 PM EST) Anatomical Region Laterality Modality Body Computed Tomogra phy 09/19/2024 12:0 1 PM EST Narrative 09/20/2024 9:26 AM EST ? [facility] ?[address] ?[place] [address] ? PET Report ? Signed ? Patient: Viki,Lei ?MR#: [id number] ? : 1945 ?Acct:[id number] ? Age/Sex: 79 / M ?ADM Date: 03/04/25 ? Loc: HO.PET ? Attending Kyle Morales MD ? Ordering Physician: Louisa Morales MD ?? Date of Service: 09/19/24 ?? Procedure(s): PET CT fusion skull to thigh ?? Accession Number(s): [id number] ? cc: Louisa Morales MD; [facility] ? EXAMINATION: ?? FLUORINE-18 FDG PET/CT SCAN [...] the axilla. ? Electronically signed by: ??Ovidio Hazel MD ??09/20/2024 09:23 AM EST RP ? Dictated By: ?Hazel,Ovidio S MD ? Signed By: ?<Electronically signed by Ovidio S Hazel, MD in OV> ?09/20/24 0923 ? DD/ 1201 ? TD/TT: 09/19/24 1500 ? Wire Basket Maker: MSM ? Procedure Note Yemi, Image - 09/20/[address] [address] PET Report Signed Patient: Scottie Drew#: [id number] : 6Acct:[id number] Age/Sex: 79 / MADM Date: 09/19/24 Loc: HO.PET Attending Dr: Louisa Morales MD Ordering Physician: Louisa Morales MD Date of Service: 09/19/24 Procedure(s): PET CT fusion skull to thigh Accession Number(s): [id number] cc: Louisa Morales MD; [facility] EXAMINATION: FLUORINE-18 FDG PET/CT SCAN CLINICAL INFORMATION: [...] by: Ovidio Oliva MD 09/20/2024 09:23 AM EST Dictated By: Ovidio Oliva MD Signed By: <Electronically signed by Ovidio Oliva MD in OV> 09/20/24 0923 DD/ 1201 TD/TT: 09/19/24 1500 Wire Basket Maker: [facility] External Provider IMG CT PROCEDURES Edited Result - Final * Albumin, Random Urine W/Creatinine (05/03/2023 8:36 AM EDT) Creatinine, Urine 54.13 mg/dL [facility] Microalbumin Urine 8.0 mg/L H [facility] Microalbum Creatinine Ratio Ur 14.7 <30 ug/mg cr [facility] Comment:Albumin/Creatinine R atio Reference Ranges: Normal: < 30 ug/mg creatinine Microalbuminuria: 30 - 300 ug/mg creatinineClinical Albuminuria: > 300 ug/mg creatinine Urine 05/03/2023 8:36 AM EDT 05/03/2023 11:07 AM EDT [facility] ROUTING MACHINE OPERATOR LAB URINE ORDERABLES Final Re sult [facility] [address] [place] [phone] * Lipid Panel, Standard (05/03/2023 8:36 AM EDT) Triglycerides 83 <150 mg/dL [facility] Comment:Desirable Triglyceri de: less than 150 mg/dLBorderline High Triglyceride 150-199 mg/dLHigh Triglyceride: 200-499 mg/dLVery High Triglyceride: greater than or equal to 5OO mg/dL Cholesterol 136 <200 mg/dL [facility] Comment:Desirable Cholestero l: less than 200 mg/dLBorderline High Cholesterol: 200-239 mg/dLHigh Cholesterol: greater than 239 mg/dL LDL Cholesterol Calculated 54 <100 mg/dL [facility] Comment:Desirable LDL: less than 100 mg/dLNear Optimal/Above Optimal LDL: 110- 129 mg/dLBorderline High LDL: 130-159 mg/dLHigh LDL: 160-189 mg/dLVery High LDL: greater than or equal to 190 mg/dL HDL Cholesterol 66 >40 mg/dL [facility] Comment:Desirable HDL: great er than 40 mg/dL Note: This HDL assay may give artificially low results in patients with liver disease. Blood Venous blood specimen / Unknown 05/03/2023 8:36 AM EDT 05/03/2023 11:13 AM EDT [facility] LAB BLOOD ORDERABLES Final Re sult [facility] [address] [place] [address] [phone] * Hepatitis C Antibody with Reflex to HCV, RNA, Quantitative, Real-Time PCR (09/11/2022 3:09 PM EST) Hepatitis C Antibody NON-REACT VAHID NON-REACT VAHID [employer] [place] [employer] Index <0.02 <1.00 [employer] Comment: HCV antibody was non-reactive. There is no laboratory evidence of HCV infection. In most cases, no further action is required. However, if recent HCV exposure is suspected, a test for HCV RNA (test code 85698) is suggested. For additional information please refer to http://education.Stealz/faq/OBM47f0 (This link is being provided for informational/ educational purposes only.) Blood Venous blood specimen / Unknown 09/11/2022 3:09 PM EST 09/11/2022 3:09 PM EST Narrative [facility] - 09/14/2022 1:32 PM EST FASTING:NO FASTING: NO [facility] LAB BLOOD ORDERABLES Final Re sult Performing Organization Address City/[facility] Co de Phone Number [facility] [address], [place] [address] [employer] [place] [employer] [address] [facility], ([address]) [place] [address] from Last 3 Months or Most Recently Relevant to Health Maintenance Insurance [facility] Care Teams High School Counselor Relationship Specialty Start Date End Date Sunset[facility]bi, [facility] [address] [place] [address] PCP - General Family Medicine 04/01/23 Noemi GARCIA 05/08/24
--- OUTSIDE RECORDS SUMMARY | 2024-11-14 12:46 | XMS_ITS | Encounter Summary ---
Author Organization [facility] Address [address] [facility] 7t [place] [address] Care Team Providers Care Trimming Inspector Name Role Phone Sandy Torrez MD Primary Care Provider Unava ilable [facility] Primary Care Provider [phone] Palacio [facility] Primary Care Provider [phone] [facility] Primary Care Provider [phone] Encounter Details Date Type Department Care Team (Latest Contact Info) Description 07/17/2019 Abstract [facility] CONVERSIONS Dental, Provider, DDS Social History [...] Info) Description 12/15/2024 11:15 AM EDT Telemedicine [facility] MEDICINE [address] [place] [address] [facility] [address] [place] [address] 04/10/2025 10:00 AM EDT Office Visit [facility] ADULT DENTAL [address] [place], [place] [phone] Amber Conteh documented as of this encounter Visit Diagnoses Not on filedocumented in this encounter Care Teams Trimming Inspector Relationship Specialty Start Date End Date Sanyd Torrez MD PCP - General Family Medicine 01/09/20 06/22/22 Abbi Saha FNP [address] [place] [address] PCP - General Family Medicine 06/23/22 03/28/23 Gogo Palacio FNP [address] [place] [address] PCP - General Family Medicine 03/29/23 03/31/23 Abbi Saha FNP [address] [place] [address] PCP - General Family Medicine 04/01/23 [place] [facility] 05/08/24 documented as of this encounter
--- OUTSIDE RECORDS SUMMARY | 2024-11-14 12:46 | XMS_ITS ---
Author Name Dineshmikaela TSERING, RN, RD, Adeola Address [address] [place] [address] Phone [phone] [facility] Care Team Providers Care Director Weights And Measures Name Role Phone Adeola Campuzano Unavailable [phone] Unavailable Unavailable Unavailable [facility] [place] Unavailable TYLER LARES Unavailable [phone] [facility] Unavailable [phone] 1 [facility] Unavailable [phone] Reason for Referral Not Available Allergies, adverse [...] 2023-01-05 No Data Available OneTouch Delica Plus [id number] Miscellaneous TEST BLOOD SUGAR TWICE DAILY 2022-08-20 [...] 5 mg Cap TAKE 1 CAPSULE BY [facility] AT BEDTIME 2023-06-15 No Data Available Problem List Problem Status Onset Date Resolved Date Hypertension Active 2023-09-28 N/A BPH (benign prostatic hyperplasia) Active 2023- 3-12 N/A Type 2 diabetes mellitus with hyperlipidemia Active 2023-09-28 N/A Other problems related to az dical facilities and other health care Active 2023-09-28 N/A Encounters Encounters Type Facility Date of Service Diagnosis/Co mplaint Unlisted special service; to be used for medical record reviews and reporting CPTII codes (1111F, etc) [place] [facility], ([place]) 05/27/2024 Encounter for other specifie d aftercare Unlisted special service; to be used for medical record reviews and reporting CPTII codes (1111F, etc) [facility] 05/27/2024 Social History Sex Male History of Procedures Procedures Service Procedure code Service date Servicing provider Phone# Unlisted special service; to be used for medical record reviews and reporting CPTII codes (1111F, etc) [address] 2024-05-28 No Data Available No Data Availa ble Medications prescribed in hospital were reviewed and reconciled against what they were taking prior to admission during today's visit. (1111F) 1111F 2024-05-28 No Data Available No Data Availa ble Functional Status No Information Mental Status No Information Assessments Not Available Plan of Care Not Available
--- OUTSIDE RECORDS SUMMARY | 2024-11-14 12:46 | XMS_ITS | Encounter Summary ---
Author Organization [facility] [employer] [facility] Address [address] [employer] [address] [place] [address] Care Team Providers Care Tire Care Manager Name Role Phone Sandy Torrez MD Primary Care Provider Unava ilable [facility] Primary Care Provider [phone] Gogo Palacio [facility] Primary Care Provider [phone] [facility] Primary Care Provider [phone] Encounter Details Date Type Department Care Team (Latest Contact Info) Description 06/23/2021 Abstract [facility] CONVERSIONS Dental, Provider, DDS Social History [...] [facility] [address] [place] [address] [facility] [address] [place], [place] [phone] 04/10/2025 10:00 AM EDT Office Visit [facility] ADULT DENTAL [address] [place], [place] [phone] Amber Conteh documented as of this encounter Visit Diagnoses Not on filedocumented in this encounter Care Teams Tire Care Manager Relationship Specialty Start Date End Date Sandy Torrez MD PCP - General Family Medicine 01/09/20 06/22/22 Abbi Saha FNP [address] [place] [address] PCP - General Family Medicine 06/23/22 03/28/23 Gogo Palacio FNP [address] [place] [address] PCP - General Family Medicine 03/29/23 03/31/23 Abbi Saha FNP [address] [place] [address] PCP - General Family Medicine [facility] documented as of this encounter
== END 2024-11-14 11:00 | disposition home or self-care (01) ==
LOC: HO.SH 10:59
PROVIDERS: Visit Provider Registered Nurse
DX: Z01.118 Encounter for examination of ears and hearing with other abnormal findings (principal); H90.3 Sensorineural hearing loss, bilateral
CPT/HCPCS: 92557

== ENCOUNTER 2024-11-23 10:21 | Outpatient (AMB) | payer OTHER, SELFPAY ==
--- NOTE | 2024-11-23 10:43 | A.OFFVIS_ITS ---
Vital Signs 11/23/24 10:45 Height 5 ft 2 in Weight 135 lb BMI 24.7 BP 100/56 L Blood Pressure Location Rt brachial Position Sitting Pulse 74 Pulse Source Pulse Oximeter Pulse Oximetry (%) 98 Oxygen Delivery Method Room Air Intake Visit Reasons: follow up epigastric pain Intake Note: ESTABLISHED PATIENT for mgmt of EPI + Chronic Abd pain. CC; Pt denies any GI sx or concerns at this time. Pt is actively receiving chemo therapy Buckle Frame Shaper Required: Yes Allergies No Known Allergies [No Known Allergies*] Allergy (Verified 11/23/24 10:44) HPI HPI follow up epigastric pain: Details: Assessment & Plan (1) Exocrine pancreatic insufficiency: Code(s): K86.81 - Exocrine pancreatic insufficiency Category: Medical (2) Lactose intolerance: Code(s): E73.9 - Lactose intolerance, unspecified Category: Medical Plan Salvadorean #Diane Mariscal He is greatly improved from his initial presentation, but at times she will still have breakthrough diarrhea and he admits that at times he has dietary indiscretions. However with further discussion it seems that his stools are still on the looser side, and since he has tolerated the Creon extremely well I think it is worth trying increasing the dose to 2 caplets 3 times a day. He tells me that he is trying to gain muscle mass and will be doing some exercises. He will be getting a peddling machine to help increase with his leg strength which is a good idea. His primary care provider has also prescribed what sounds like protein shakes. There and agreement with the above plan and I will see them again in 6 months unless there is any problems. Medications: New omeprazole 20 mg PO BID 60 caps 6RF Changed From wertcb-qykstbyh-esltjkd 24,000-76,000 -120,000 unit (Creon) 2 caps PO BID 30 days 120 caps 6RF K58.9 - Irritable bowel syndrome, unspecified To pxtldp-qymizftp-diqjbud 24,000-76,000 -120,000 unit (Creon) 2 caps PO TID 30 days 180 caps 6RF K58.9 - Irritable bowel syndrome, unspecified TODAY'S VISIT Salvadorean #ACID CHANGER/family translates per pt request. He continues to do well on his creon saying my stools and stomach are now regular. He has question re: milk, he thinks this is a part of the problem - he has had some success with lactose free milk, we discuss almond milk and frozen yogurt as well. He is still having trouble gaining weight, and they feel he continues to lose despite eating well throughout the day and a wide vaiety of foods. He was 134# at his appt yesterday. He continues on omepazole, which is needed given he is Faroese and has a proclivity for spicy foods. ROV 6 mos. PFSH Medical History (Updated 11/23/24 @ 16:44 by NISH Kaba) GERD (gastroesophageal reflux disease) Exocrine pancreatic insufficiency Abdominal bloating Renal cyst Loose stools History of revision of total replacement of right knee joint Lung mass High cholesterol Anemia Pleural hemorrhage Diverticulosis Hyponatremia Acute hyponatremia Colon cancer screening Erectile dysfunction Gastritis COVID-19 virus infection Hydrocele Cataract Hypercholesteremia Diabetes BPH (benign prostatic hyperplasia) Hypertension Surgical History (Updated 11/23/24 @ 16:44 by NISH Kaba) History of bilateral knee replacement Visit for wound check S/P chest tube placement Hx of colonoscopy History of prostate surgery Family History Father Diabetes Mother Diabetes Uterus cancer Mother Cancer Social History Household Members: Spouse Housing: Apartment Housing Other:: housing apartment Are you a primary career development manager to a significant other at home: No Do you presently have visiting nurse or other home services: No Alcohol intake: never Comment: camera placed as pt is impulsive, attempts to get OOB. Hx falls recently Patient Tobacco Use Status: Never used Tobacco service: No Current occupational status: retired Current occupation: right handed Gender identity: Male Review of Systems Const Denies fatigue, Denies fever(s), Denies night sweats, Denies poor appetite and Denies weight loss Eyes Details: glasses Reports requires corrective lenses ENT Reports Normal hearing present, Denies dysphagia, Denies odynophagia, Denies throat swelling and Denies tongue swelling Card Reports no additional complaints Resp Reports no additional complaints GI Details: Denies abdominal pain, Denies melena, Denies bloating, Denies hematochezia, Denies constipation, Denies GI cramping, Denies dysphagia, Denies excessive flatus, Denies early satiety, Reports heartburn, Denies diarrhea, Denies nausea, Denies odynophagia, Denies vomiting and Denies hematemesis Musc Reports abnormal gait and Reports muscle weakness Skin/Breast Denies pruritus, Denies lesions, Denies rash and Denies jaundice Neuro Reports Normal hearing present, Denies Abnormal speech present and Reports abnormal gait Endo Denies fatigue Aller/Immun Denies throat swelling and Denies tongue swelling Physical Exam Vital Signs: Last Vital Signs Pulse 74 11/23/24 10:45 BP 100/56 L 11/23/24 10:45 Pulse Ox 98 11/23/24 10:45 Oxygen Delivery Method Room Air 11/23/24 10:45 BMI result Body Mass Index 24.7 Const General: cooperative, no acute distress, well developed and well groomed Nutritional Appearance: average body habitus and well nourished Orientation/consciousness: oriented to person, oriented to place and oriented to time Limitations: language barrier and wheelchair HEENT Head: Yes normocephalic and Yes atraumatic Eyes General: appearance normal, both eyes and all related structures Pupils: Equal, round and reactive pupils present Neck Neck: Yes normal visual inspection and Yes no lymphadenopathy Thyroid: Thyroid normal Resp Effort & Inspection: normal respiratory effort and able to speak in complete sentences Auscultation: clear to auscultation bilaterally Cardio Rate: regular rate Rhythm: regular rhythm Heart sounds: Normal, physiologic split S2 sound present Peripheral pulses: radial pulses present and posterior tibial pulses present GI Inspection: No distended and No Abdominal panniculus present Palpation (GI): Soft to palpation, nontender, no guarding, not rigid and No hepatosplenomegaly present Percussion: Yes normal to percussion Auscultation: normal bowel sounds Rectal Exam - Male: Yes deferred Skin General skin exam: no rashes or lesions noted, turgor normal, skin not dry, no jaundice, No spider nevi and no striae Rashes: no rashes Nails: normal Neuro General: oriented to person, oriented to place and oriented to time Cranial nerves: Yes Equal, round and reactive pupils present and Yes Normal hearing present Speech: No Abnormal speech present Extrem General: Yes normal to inspection, No clubbing, No cyanosis and No edema Psych Appearance: grossly normal and well kempt Mental Status: mental status grossly normal Speech and movement: Normal speech and movement present Affect: normal affect Attitude: cooperative Thought process: Normal thought process present and not confabulating Thought content: Normal thought content present Insight: Fair insight present (Psych) Judgement: Fair judgement present (Psych) Assessment & Plan Assessment & Plan (1) Exocrine pancreatic insufficiency: Code(s): K86.81 - Exocrine pancreatic insufficiency Category: Medical (2) Lactose intolerance: Code(s): E73.9 - Lactose intolerance, unspecified Category: Medical (3) GERD (gastroesophageal reflux disease): Code(s): K21.9 - Gastro-esophageal reflux disease without esophagitis Category: Medical Qualifiers: Esophagitis presence: without esophagitis Qualified Code(s): K21.9 - Gastro-esophageal reflux disease without esophagitis Plan Salvadorean #ACID CHANGER/family translates per pt request. He continues to do well on his creon saying my stools and stomach are now regular. He has question re: milk, he thinks this is a part of the problem - he has had some success with lactose free milk, we discuss almond milk and frozen yogurt as well. He is still having trouble gaining weight, and they feel he continues to lose despite eating well throughout the day and a wide vaiety of foods. He was 134# at his appt yesterday. He continues on omepazole, which is needed given he is Faroese and has a proclivity for spicy foods. ROV 6 mos. Coding Level of Care Code Est Pt Level 3 (04723) Diagnoses Exocrine pancreatic insufficiency K86.81 Lactose intolerance E73.9 Gastroesophageal reflux disease without esophagitis K21.9 Esophagitis presence: without esophagitis
[2024-11-23 10:45] VITALS: BP 100/56; PULSE 74; O2SAT 98; BMI 24.7
--- OUTSIDE RECORDS SUMMARY | 2024-11-23 11:35 | XMS_ITS | Encounter Summary ---
Author Organization [employer] Address [address] [place] [address] Care Team Providers Care Weatherization Installer Name Role Phone [facility] Primary Care Provider [phone] Encounter Details Date Type Department Care Team ([facility] st Contact Info) Description 08/11/2023 Orders Only [facility] [address] [place], [place] [phone] [facility] [address] [place], [place] [phone] Sensorineural hearing loss (SNHL) of both ears; Lower urinary tract symptoms (LUTS); Gait instability; Type 2 diabetes mellitus with hyperglycemia, without long-term current use of insulin ([facility]); Hammertoes of both feet; Diminished [...] 11:15 AM EDT Telemedicine [facility] [address] [place] [address] [facility] [address] [place] [address] 04/10/2025 10:00 AM EDT Office Visit [facility] ADULT DENTAL [address] [place] [address] Amber Conteh documented as of this encounter Procedures Procedure Name Priority Date/Time Associated Diagnosis Comments AMB REFERRAL TO ENT Routine 10/14/2023 Sensorineural hearing loss (SNHL) of both ears documented in this encounter Results * Referral to ENT (10/14/2023) [facility] OUTPATIENT REFERRAL ORDERABLE S Final Result documented in this encounter Visit Diagnoses Diagnosis Sensorineural hearing loss (SNHL) of both ears Lower urinary tract symptoms (LUTS) Gait instability Abnormality of gait Type 2 diabetes mellitus with hyperglycemia, without long-term current use of insulin ([facility]) Hammertoes of both feet Diminished pulses in lower extremity Facial skin lesion documented in this encounter Additional Health Concerns Assessment Noted Time PHQ-9 Depression Total Score: 0 12/15/20 23 9:13 AM EST documented as of this encounter Care Teams Weatherization Installer Relationship Specialty Start Date End Date Abbi Saha FNP [address] [place], [place] [address] [address] PCP - General Family Medicine 04/01/23 Noemi GARCIA 05/08/24 documented as of this encounter
--- OUTSIDE RECORDS SUMMARY | 2024-11-23 11:35 | XMS_ITS | Encounter Summary ---
Author Organization [employer] Address [address] [facility] 7t [place] [address] Care Team Providers Care System Safety Engineer Name Role Phone Sandy Torrez MD Primary Care Provider Unava ilable [facility] Primary Care Provider [phone] Gogo Palacio [facility] Primary Care Provider [phone] [facility] Primary Care Provider [phone] Encounter Details Date Type Department Care Team (Latest Contact Info) Description 06/23/2021 Abstract [facility] CONVERSIONS Dental, Provider, DDS Social History [...] Info) Description 12/15/2024 11:15 AM EDT Telemedicine [facility] MEDICINE [address] [place] [address] [facility] [address] [place] [address] 04/10/2025 10:00 AM EDT Office Visit [facility] ADULT DENTAL [address] [place] [address] Amber Conteh documented as of this encounter Visit Diagnoses Not on filedocumented in this encounter Care Teams System Safety Engineer Relationship Specialty Start Date End Date Sandy Torrez MD PCP - General Family Medicine 01/09/20 06/22/22 [place] robb FNP [address] [place] [address] PCP - General Family Medicine 06/23/22 03/28/23 Gogo Palacio FNP [address] [place] [address] PCP - General Family Medicine 03/29/23 03/31/23 [place]ly[place]bi robb FNP [address] [place] [address] PCP - General Family Medicine [facility] documented as of this encounter
--- OUTSIDE RECORDS SUMMARY | 2024-11-23 11:35 | XMS_ITS ---
Author Name Dineshmikaela TSERING, RN, RD, [place] Address [address] [place] [address] Phone [phone] [facility] Care Team Providers Care Concrete Block Mason Name Role Phone Adeola Campuzano Unavailable [phone] Unavailable Unavailable Unavailable [facility] [place] Unavailable [phone] TYLER LARES Unavailable [phone] [facility] Unavailable [facility] Unavailable [phone] Reason for Referral Not Available Allergies, adverse [...] 2023-01-05 No Data Available OneTouch Delica Plus [id number] Miscellaneous TEST BLOOD SUGAR TWICE DAILY 2022-08-20 [...] 5 mg Cap TAKE 1 CAPSULE BY [facility] AT BEDTIME 2023-06-15 No Data Available Problem List Problem Status Onset Date Resolved Date Hypertension Active 2023-09-28 N/A BPH (benign prostatic hyperplasia) Active 2023- 3-12 N/A Type 2 diabetes mellitus with hyperlipidemia Active 2023-09-28 N/A Other problems related to ga dical facilities and other health care Active 2023-09-28 N/A Encounters Encounters Type Facility Date of Service Diagnosis/Co mplaint Unlisted special service; to be used for medical record reviews and reporting CPTII codes (1111F, etc) [facility] [place] 05/27/2024 Encounter for other specifie d aftercare Unlisted special service; to be used for medical record reviews and reporting CPTII codes (1111F, etc) [facility] [place] 05/27/2024 Social History Sex Male History of Procedures Procedures Service Procedure code Service date Servicing provider Phone# Unlisted special service; to be used for medical record reviews and reporting CPTII codes (1111F, etc) [address] 2024-05-28 No Data Available No Data Availa ble Medications prescribed in hospital were reviewed and reconciled against what they were taking prior to admission during today's visit. (1111F) 1111F 2024-05-28 No Data Available No Data Availa ble Functional Status No Information Mental Status No Information Assessments Not Available Plan of Care Not Available
--- OUTSIDE RECORDS SUMMARY | 2024-11-23 11:35 | XMS_ITS | Clinical Summary ---
Author Organization [facility] Address [address] [place] [address] Phone Care Team Providers Care Nozzle Cement Sprayer Helper Name Role Phone Unavailable Primary Care Provider [...] (HGBA1C) 08/27/2024 02/25/2024 Depression Screening 10/21/2024 10/22/2023 COVID-19 Vaccine (8 - Pfizer risk season) 2024 05/15/2024, 04/23/2023, 04/28/2022, Additional history exists Cholesterol Screening (Lipid Panel) 05/03/2028 05/03/2023 DTaP,Tdap,and Td Vaccines (3 - Td or Tdap) 10/16/2032 10/16/2022, 05/07/2015 Pneumococcal Vaccine: 50+ Years Completed 05/22/2019, 05/14/2015 Zoster Vaccines Completed 07/08/2020, 04/19, 01/10/2018 Hepatitis C Screening Completed 09/11/2022 Influenza Vaccine Completed 05/15/2024, , 04/17/2022, Additional [...]
--- OUTSIDE RECORDS SUMMARY | 2024-11-23 11:35 | XMS_ITS | Encounter Summary ---
Author Organization [facility] Address [address] [place] [address] [address] [place] [address] Phone Care Team Providers Care Music Orchestrator Name Role Phone Abbi Saha Primary Care Provider [phone] Reason for Visit * Reason Comments Hypertension Encounter Details Date Type Department Care Team ([facility] Contact Info) Description 11/22/2024 11:45 AM EDT Office Visit [facility] [address] [address] Rosanna Zamudio ARNP [address] [address] Hypertensive disorder (Primary Dx); Hyponatremia Social History Tobacco Use Types Packs/Day Years Used Date Smoking Tobacco: Never Smokeless Tobacco: Never Alcohol Use Standard Drinks/Week Comments Yes 0 (1 standard drink = 0.6 oz pure alcohol) Alcoholic Drinks/day: Occasional social drink Sex and Gender Information Value Date Recorded Sex Assigned at Not on file Legal Sex Male 4:54 PM EST Gender Identity Not on file Sexual Orientation Not on file documented as of this encounter Last Filed Vital Signs Vital Sign Reading Time Taken Comments Blood Pressure 124/60 11/22/2024 11:43 AM EDT Pulse 70 11/22/2024 11:43 AM EDT Temperature - - Respiratory Rate - - Oxygen Saturation 97% 11/22/2024 11:43 AM EDT Inhaled Oxygen Concentration - - Weight 60.8 kg (134 lb) 11/22/2024 11:43 AM EDT Height - - Body Mass Index 24.51 11/11/2022 1:52 PM EDT documented in this encounter Plan of Treatment Upcoming Encounters Date Type Department Care Team (Late Contact Info) Description 11/22/2025 11:00 AM EDT Office Visit [facility] PAlma Delia [address] [facility] [address] [place] [address] Rosanna Zamudio ARNP [address] [address] Scheduled Orders Name Type Priority Associated Diagnoses Orde r Schedule Renal function panel Lab Routine Hypertensive disorder Hyponatremia Expected: 11/22/2024, Expires: 12/23/2025 Urine Protein / creatinine ratio Lab Routine Hypertensive disorder Hyponatremia Expected: 11/22/2024, Expires: 12/23/2025 Urine Albumin / Creatinine Ratio Lab Routine Hypertensive disorder Hyponatremia Expected: 11/22/2024, Expires: 12/23/2025 documented as of this encounter Procedures Procedure Name Priority Date/Time Associated Diagnosis Comments EXT RESULT ENTRY Routine 11/17/2024 documented in this encounter Results * EXT RESULT ENTRY (11/17/2024) WBC 6.3 3.3 - 10.0 10*3/ML Red Blood Cell Count 4.98 Hemoglobin 13.8 13.5 - 17.5 Hematocrit 41.4 41.0 - 53.0 Platelets 284 150 - 399 10*3/UL 11/17/2024 us Historical Provider LAB BLOOD ORDERABLES Kaylin l Result documented in this encounter Visit Diagnoses Diagnosis Hypertensive disorder- Primary Hyponatremia documented in this encounter Care Teams Music Orchestrator Relationship Specialty Start Date End Date [facility] [address] [place] [address] PCP - General 11/22/24 documented as of this encounter
--- OUTSIDE RECORDS SUMMARY | 2024-11-23 11:35 | XMS_ITS | Encounter Summary ---
Author Organization [employer] Address [address] [facility] [address]t [place] [address] Care Team Providers Care Outpatient Services Director Name Role Phone Sandy Torrez MD Primary Care Provider Unava ilable [facility] Primary Care Provider [phone] Gogo Palacio [facility] Primary Care Provider [phone] [facility] Primary Care Provider [phone] Encounter Details Date Type Department Care Team [...] Info) Description 12/15/2024 11:15 AM EDT Telemedicine [facility] [address] [place] [address] [facility] [address] [place] [address] 04/10/2025 10:00 AM EDT Office Visit [facility] ADULT DENTAL [address] [place] [address] Amber Conteh documented as of this encounter Visit Diagnoses Not on filedocumented in this encounter Care Teams Outpatient Services Director Relationship Specialty Start Date End Date Sandy Torrez MD PCP - General Family Medicine 01/09/20 06/22/22 [place] FNP [address] [place] [address] PCP - General Family Medicine 06/23/22 03/28/23 Gogo Palacio FNP [address] [place] [address] PCP - General Family Medicine 03/29/23 03/31/23 [place] FNP [address] [place] [address] PCP - General Family Medicine 04/01/23 [facility] documented as of this encounter
--- OUTSIDE RECORDS SUMMARY | 2024-11-23 11:35 | XMS_ITS | Encounter Summary ---
Author Organization [employer] Address [address] [facility] 7t [place] [address] Care Team Providers Care Reporting Coordinator Name Role Phone [place] [facility] Primary Care Provider Reason for Visit * Reason Comments Med Refill Encounter Details Date Type Department Care Team ([facility] Contact Info) Description 07/16/2024 Refill [facility] [address] [place], [place] [phone] [place] [facility] [address] [place] [address] Type 2 diabetes mellitus with hyperglycemia, without long-term current use of insulin ([facility]) Social History Tobacco Use Types [...] the past 12 months, has t he [employer], gas, oil or water company threatened to [...] Info) Description 12/15/2024 11:15 AM EDT Telemedicine [facility] [address] [place] [address] Abbi Saha FNP [address] [place] [address] 04/10/2025 10:00 AM EDT Office Visit [facility] ADULT DENTAL [address] [place] [address] Amber Conteh documented as of this encounter Visit Diagnoses Diagnosis Type 2 diabetes mellitus with hyperglycemia, without long-term current use of insulin ([facility]) documented in this encounter Additional Health Concerns Assessment Noted Time PHQ-9 Depression Total Score: 0 07/05/20 24 11:25 AM EST documented as of this encounter Care Teams Reporting Coordinator Relationship Specialty Start Date End Date Abbi Saha FNP [address] [place] [address] PCP - General Family Medicine 04/01/23 Noemi A 05/08/24 documented as of this encounter
--- OUTSIDE RECORDS SUMMARY | 2024-11-23 11:35 | XMS_ITS | Clinical Summary ---
Author Organization [employer] Address [address] [place] [address] Care Team Providers Care Honey Producer Name Role Phone Abbi Saha [facility] Primary Care Provider [phone] Allergies No known active allergies Medications Diclofenac Sodium 1 % gel Apply 2 g topically every 6 (six) hours. 06/06/20 21 Active Lidocaine 4 % patch Apply to the affected area up to 3 times daily as needed Active sildenafil (Viagra) 100 MG tablet Take 1 tablet by mouth at bed time. Active Blood Glucose Monitoring Suppl ([employer] Verio) w/Device kitIndications :Type 2 diabetes mellitus without complication, without long-term current use of insulin ([facility]) 1 kit before breakfast and before evening [...] tablet 5 mg. 05/06/20 24 Active Creon 04808-65263 units capsule 2 capsules. 04/19/20 24 Active Farxiga 10 MGIndications: Type 2 diabetes mellitus with other specified complication, unspecified whether senior living insulin use (CMS/HCC) TAKE 1 TABLET BY MOUTH EVERY MORNING 90 tablet 1 06/14/20 24 Active glucose blood ([employer] Verio) test strip TEST BLOOD SUGAR TWICE A DAY 100 each 08/21/19 25 Active Multiple Vitamin (Multivitamin) tabletIndicati ons:Type 2 diabetes mellitus with hyperglycemia, without long-term current use of insulin (CMS/[facility]) TAKE 1 TABLET BY MOUTH EVERY EVENING WITH FOOD 90 tablet 3 08/23/19 25 Active metFORMIN (Glucophage) 1000 MG tabletIndicati ons:Type 2 diabetes mellitus with hyperglycemia, without long-term current use of insulin (CMS/[facility]) Take 1 tablet (1,000 mg) by mouth with breakfast and with evening meal. 60 tablet 11 09/08/19 25 026 Active SITagliptin (Januvia) 25 MG tabletIndicati ons:Type 2 diabetes mellitus with hyperglycemia, without long-term current use of insulin ([facility]) Take 1 tablet (25 mg) by mouth Once per day. 30 tablet 09/08/19 25 026 Active Lancets (OneTouch Delica Plus [id number]) miscIndication s:Elevated blood sugar TEST BLOOD SUGAR TWICE DAILY 100 each 10/07/19 25 Active omeprazole (PriLOSEC) 20 MG [...] daily for 3 days. 3 tablet 10/26/19 025 Active Problems Problem Noted Date Diagnosed Date Primary malignant neoplasm o f left lung metastatic to other site 07/05/2024 Overview (07/05/2024): New dx of metastatic NSCLC 04/2024.-- Presented to [facility] ED w1 with acute SOB. CT chest [...] of metastatic disease. PET-CT performed 05/30/24 at [facility] showed FDG avid loculated left-sided pleural [...] maintenance 10/16/2022 Overview (10/25/2022): Healthcare Maintenance: C-scope: [facility] 2021, needs records PSA: Per urology HCV Screen: Neg 09/10 HIV Screen: Neg 09/10 Immunizations: UTD ?? Weight loss 09/17/2022 Diabetes 09/11/2022 Overview (02/25/2024): Farxiga 10mg daily Metformin 1000mg b.i.d Januvia 25 mg daily Foot Exam: Risk 0; followed by podiatry ([place]) Eye Exam: [facility] Eye care Statin: Yes ASA: No [...] labs today ?? Has upcoming appointment for [facility] eye care Assessment & Plan (10/25/2022 [...] (05/19/2023 11:14 AM EDT): ?? Compliant with PARTNER agreement ?? Only using tramadol 1x/week due to concern re addiction ?? Advised patient OK to take tramadol at bedtime nightly if pain interfering with sleep ?? Continue acetaminophen PRN during day ?? Continue lidocaine patch ?? Continue topical diclofenac gel ?? Continue acupuncture ?? PT referral for general gait instability Assessment & Plan (10/25/2022 1:09 PM EDT): ?? Will refer to PARTNER RN Hypertensive disorder 04/12/2017 Overview (02/25/2024): Losartan [...] Encounters Date Type Department Care Team Description 11/16/2024 Telephone [facility] MEDICINE [address] [place] [phone] Abbi Saha FNP Pcp's message 11/02/2024 Telephone [facility] [address] [place] [address] Abbi Saha FNP Durable Medical Equipment ([facility]: Transparent Film ) 10/29/2024 Refill [facility] MEDICINE [address] [place] [address] Abbi Saha FNP Dyspepsia 10/25/2024 9:15 AM EDT Office Visit [facility] MEDICINE [address] [place] [address] Abbi Saha FNP Type 2 diabetes mellitus with hyperglycemia, without long-term current use of insulin ([facility]) (Primary Dx); Acute cough; Sensorineural hearing loss (SNHL) of both ears; Dietary counseling; Exercise counseling 10/25/2024 Travel 10/24/2024 Telephone [facility] [address] [place] [address] Abbi Saha FNP chart prep 10/06/2024 Refill [facility] MEDICINE [address] [place] [address] Maria AAbbi robb FNP Elevated blood sugar 09/26/2024 1:00 PM EDT Office Visit [facility] ADULT DENTAL [address] [place] [address] Amber Conteh Dental plaque (Primary Dx); Dental calculus; Encounter for dental examination; Dental caries; Periodontal disease; Bone loss 09/20/2024 Telephone [facility] MEDICINE [address] [place] [address] Abbi Saha FNP No Show 09/08/2024 3:15 PM EST Telemedicine [facility] MEDICINE [address] [place] [address] Maria AAbbi robb FNP Type 2 diabetes mellitus with hyperglycemia, without long-term current use of insulin ([facility]) (Primary Dx); Non-small cell cancer of left lung ([facility]) 09/08/2024 Travel 09/01/2024 Telephone [facility] MEDICINE [address] [place] [address] Lola Xie RN Blood Sugar Readings 08/31/2024 Telephone [facility] [address] [place], [place] [phone] Maria AAbbi robb FNP [employer] Patient Care Solution (Gauze, non-impregnated, steril, pad size 16 sq/) from Last 3 Months Immunizations Name Administration [...] Info) Description 12/15/2024 11:15 AM EDT Telemedicine [facility] MEDICINE [address] [place], [place] [phone] [place] FNP [address] [place] [address] 04/10/2025 10:00 AM EDT Office Visit [facility] ADULT DENTAL [address] [place] [address] Amber Conteh Health Maintenance Due Date Last [...] history exists Depression Screening 07/05/2025 07/05/2024, 07/05/20 24 Eye Exam 07/19/2025 07/19/2023 Dental X-Ray: [facility] [...] Date/Time Associated Diagnosis Comments AMB REFERRAL TO AUDIOLOGY Routine 11/14/2024 Sensorineural hearing loss (SNHL) of both ears XR CHEST 2 VIEWS Routine 10/25/2024 10:1 3 AM EDT Acute cough POCT GLYCATED HEMOGLOBIN, TOTAL Routine 10/25/2024 9:24 AM EDT Type 2 diabetes mellitus with hyperglycemia, without long-term current use of insulin ([facility]) POCT GLUCOSE Routine 10/25/2024 9:23 AM EDT Type 2 diabetes mellitus with hyperglycemia, without long-term current use of insulin ([facility]) PERIODIC ORAL EVALUATION - ESTABLISHED PATIENT Routine [...] MID THIGH Routine 09/19/2024 12:01 PM EST ALBUMIN, RANDOM URINE W/CREATININE Routine 05/03/2023 8:36 AM EDT Type 2 diabetes mellitus with hyperglycemia, without long-term current use of insulin ([facility]) LIPID PANEL, STANDARD Routine 05/03/2023 8:36 AM EDT Type 2 diabetes mellitus with hyperglycemia, without long-term current use of insulin ([facility]) HEPATITIS C AB W/REFL TO HCV RNA, QN, PCR Routine 09/11/2022 3:09 PM EST Healthcare maintenance from Last 3 Months or Most Recently Relevant to Health Maintenance Results * Referral to Audiology (11/14/2024) [facility] OUTPATIENT REFERRAL ORDERABLE S Final Result * XR Chest 2 Views (10/25/2024 10:13 AM EDT) Anatomical Region Laterality Modality Chest Radiographic Brianna ging 10/25/2024 10:1 3 AM EDT Narrative 10/25/2024 10:32 AM EDT ?[place] [facility] ?[address] ?[place] [address] ?XRay Report ? Signed ? Patient: Viki,Lei ?MR#: [id number] ? : 1945 ?Acct:[id number] ? Age/Sex: 79 / M ?ADM Date: 10/25/24 ? Loc: HO.HHCX ? Attending Dr: Abbi RIVAS ? Ordering Physician: Abbi Saha ?? Date of Service: 10/25/24 ?? Procedure(s): XR chest 2V ?? Accession Number(s): [id number] ? cc: Abbi Saha ? EXAMINATION: ??XR CHEST 2 VIEWS ? [...] DD/ 1013 ? TD/TT: 10/25/24 1020 ? Brush Or Broom Cutter: ? Procedure Note Angela Bragg - 10/25/[address] [address] XRay Report Signed Patient: Scottie Drew#: [id number] : 6Acct:[id number] Age/Sex: 79 / MADM Date: 10/25/24 Loc: HO.HHCX Attending Dr: Abbi Saha [facility] Ordering Physician: Abbi Saha [facility] Date of Service: 10/25/24 Procedure(s): XR chest 2V Accession Number(s): [id number] cc: Abbi Saha [facility] EXAMINATION: XR CHEST 2 VIEWS HISTORY: [...] 10/25/24 1029 DD/ 1013 TD/TT: 10/25/24 1020 Brush Or Broom Cutter: [facility] IMG XR PROCEDURES Final Resul t * (ABNORMAL) POCT HGB A1C (10/25/2024 9:24 AM EDT) Hemoglobin A1C 6.7(A) 4.0 - 6.0 % QC Media Lot # [id number] Lot# Expiration Date , Blood 10/25/2024 9:24 AM EDT [facility] POINT OF CARE TEST ENTER/EDIT ORDERABLES Final Result * POCT Glucose (10/25/2024 9:23 AM EDT) Glucose Blood, POC 165 60 - 200 mg/dL QC Media Lot # [id number] Lot# Expiration Date [id number] Blood Capillary blood specimen / Unknown 10/25/2024 9:23 AM EDT [facility] POINT OF CARE TEST ENTER/EDIT ORDERABLES Final Result * PET/CT Bone Skull Base to Mid Thigh (09/19/2024 12:01 PM EST) Anatomical Region Laterality Modality Body Computed Tomogra phy 09/19/2024 12:0 1 PM EST Narrative 09/20/2024 9:26 AM EST ? [facility] ?[address] ?[place] [address] ? PET Report ? Signed ? Patient: Viki,Lei ?MR#: [id number] ? : 1945 ?Acct:[id number] ? Age/Sex: 79 / M ?ADM Date: 09/19/24 ? Loc: HO.PET ? Attending Dr: Louisa Morales MD ? Ordering Physician: Louisa Morales MD ?? Date of Service: 09/19/24 ?? Procedure(s): PET CT fusion skull to thigh ?? Accession Number(s): [id number] ? cc: Louisa Morales MD; Abbi Saha [...] DD/ 1201 ? TD/TT: 09/19/24 1500 ? Brush Or Broom Cutter: MSM ? Procedure Note Yemi, Angela - 09/20/2024 [place] [address] PET Report Signed Patient: Scottie Drew#: [id number] : 1945cct:[id number] Age/Sex: 79 / MADM Date: 09/19/24 Loc: HO.PET Attending Dr: Louisa Morales MD Ordering Physician: Louisa Morales MD Date of Service: 09/19/24 Procedure(s): PET CT fusion skull to thigh Accession Number(s): [id number] cc: Louisa Morales MD; Abbi Saha EXAMINATION: FLUORINE-18 FDG PET/CT SCAN CLINICAL INFORMATION: [...] 09/20/24 0923 DD/ 1201 TD/TT: 09/19/24 1500 Brush Or Broom Cutter: [facility] External Provider IMG CT PROCEDURES Edited Result - Final * Albumin, Random Urine W/Creatinine (05/03/2023 8:36 AM EDT) Creatinine, Urine 54.13 mg/dL [facility] Microalbumin Urine 8.0 mg/L [facility] Microalbum Creatinine Ratio Ur 14.7 <30 ug/mg cr [facility] Comment:Albumin/Creatinine R atio Reference Ranges: Normal: < 30 ug/mg creatinine Microalbuminuria: 30 - 300 ug/mg creatinineClinical Albuminuria: > 300 ug/mg creatinine Urine 05/03/2023 8:36 AM EDT 05/03/2023 11:07 AM EDT [facility] LAB URINE ORDERABLES Final Re sult [facility] [address] [place], [place] [phone] * Lipid Panel, Standard (05/03/2023 8:36 AM EDT) Triglycerides 83 <150 mg/dL [facility] Comment:Desirable Triglyceri de: less than 150 mg/dLBorderline High Triglyceride 150-199 mg/dLHigh Triglyceride: 200-499 mg/dLVery High Triglyceride: greater than or equal to 5OO mg/dL Cholesterol 136 <200 mg/dL [facility] Comment:Desirable Cholestero l: less than 200 mg/dLBorderline High Cholesterol: 200-239 mg/dLHigh Cholesterol: greater than 239 mg/dL LDL Cholesterol Calculated 54 <100 mg/dL [facility] Comment:Desirable LDL: less than 100 mg/dLNear Optimal/Above Optimal LDL: 110- 129 mg/dLBorderline High LDL: 130-159 mg/dLHigh LDL: 160-189 mg/dLVery High LDL: greater than or equal to 190 mg/dL HDL Cholesterol 66 >40 mg/dL [facility] Comment:Desirable HDL: great er than 40 mg/dL Note: This HDL assay may give artificially low results in patients with liver disease. Blood Venous blood specimen / Unknown 05/03/2023 8:36 AM EDT 05/03/2023 11:13 AM EDT [facility] LAB BLOOD ORDERABLES Final Re sult [facility] [address] [place] [address] [phone] * Hepatitis C Antibody with Reflex to HCV, RNA, Quantitative, Real-Time PCR (09/11/2022 3:09 PM EST) Hepatitis C Antibody NON-REACT VAHID NON-REACT VAHID [facility] [place] zeenworldt Index <0.02 <1.00 [facility] [place] [facility] Comment: HCV antibody was non-reactive. There is no laboratory evidence of HCV infection. In most cases, no further action is required. However, if recent HCV exposure is suspected, a test for HCV RNA (test code 69701) is suggested. For additional information please refer to http://education.L[employer].Zumbox/faq/KUI35i8 (This link is being provided for informational/ educational purposes only.) Blood Venous blood specimen / Unknown 09/11/2022 3:09 PM EST 09/11/2022 3:09 PM EST Narrative [facility] - 09/14/2022 1:32 PM EST FASTING:NO FASTING: NO [facility] LAB BLOOD ORDERABLES Final Re sult [facility] [address] [facility], [facility], [place] [address] ? [facility] [address] [facility], ([address]) [place] [address] from Last 3 Months or Most Recently Relevant to Health Maintenance Insurance [employer] [id number] DENTAL - [facility] Care Teams Honey Producer Relationship Specialty Start Date End Date [place] [facility] [address] [place] [id number] PCP - General Family [facility]
--- OUTSIDE RECORDS SUMMARY | 2024-11-23 11:35 | XMS_ITS | Clinical Summary ---
Author Organization [facility] Address [address] [facility] [address] [place] [address] Phone Care Team Providers Care School Guidance Counselor Name Role Phone Maria A Abbi Primary Care Provider [phone] Allergies No known active allergies Medications Multiple Vitamin (MULTIVITAMIN ADULT PO) Take 1 capsule by mouth 1 (one) time each day Active acetaminophen (TYLENOL) 325 MG tablet Take 2 tablets by mouth if needed Active atorvastatin (LIPITOR) 10 MG tablet Take 10 mg by mouth at bed time 1 Active cholecalciferol (VITAMIN D-3) 50 MCG (1999) capsule TAKE 1 CAPSULE BY MOUTH EVERYDAY AT NOON 1 Active Farxiga 10 MG tablet Take 1 tablet by mouth 1 Active Diclofenac Sodium 1 % gel APPLY 2 GRAMS TOPICALLY AFFECTED AREA(S) FOUR TIMES DAILY 1 Active metFORMIN (GLUCOPHAGE) 1000 MG tablet [...] 5 mg by mouth every night Active FeroSul 325 (65 Fe) MG tablet Take 1 tablet by mouth 11/23/19 25 Discontinu ed(Med List Cristofer al) Active Problems Problem Noted Date Diagnosed Date Hypertensive disorder 03/04/2021 Hyponatremia 03/04/2021 Overview (11/23/2023): Most likely due to hydrochlorothiazide-induced decreased free water excretion. Off HCTZ now Most recent NA level WNL at 136 as of 10/22/23 Will continue to monitor Encounters Date Type Department Care Team Description 11/22/2024 11:45 AM EDT [facility] Visit [facility] [address] [address] Rosanna Zamudio ARNP Hypertensive disorder (Primary Dx); Hyponatremia from Last 3 Months Family History Medical History Relation Comments Diabetes [...] (134 lb) 11/22/2024 11:43 AM EDT Height 157.5 cm (5' 2 ) 11/11/2022 1:52 PM EDT Body Mass Index 24.51 11/11/2022 1:52 PM EDT Plan of Treatment Upcoming Encounters Date Type Department Care Team ([facility] Contact Info) Description 11/22/2025 11:00 AM EDT Office Visit [facility] PAlma DeliaCAlma Delia [address] [facility] [address] [place] [address] Rosanna Zamudio ARNP [address] [facility] [address] [place] [address] Health Maintenance Due Date Last Done Comments Diabetes: Ophthalmology Exam 11/11/2022 Diabetes: Pedal Pulse Checked 11/11/2022 Diabetes: Sensory Foot Exam 11/11/2022 Diabetes: Visual Foot Exam 11/11/2022 Diabetes: Hemoglobin A1C 01/24/2025 025, 10/22/2023, 09/11/2022 Pneumococcal Vaccine: 50+ Years Completed 05/22/2019, 05/14/2015 Pneumococcal Vaccine: Peds (0 to 5 Years) and At-Risk Patients (6 to 49 Years) Discontinued 05/22/2019, 05/14/2015 Influenza Vaccine Completed 05/15/2024, , 06/15/2018, Additional history exists Hepatitis B Vaccine Aged Out No longe r eligible based on patient's age to complete this topic Procedures Procedure Name Priority Date/Time Associated Diagnosis Comments EXT RESULT ENTRY Routine 11/17/2024 from Last 3 Months Results * EXT RESULT ENTRY (11/17/2024) WBC 6.3 3.3 - 10.0 10*3/ML Red Blood Cell Count 4.98 Hemoglobin 13.8 13.5 - 17.5 Hematocrit 41.4 41.0 - 53.0 Platelets 284 150 - 399 10*3/UL 11/17/2024 us Historical Provider LAB BLOOD ORDERABLES Kaylin rowan Result from Last 3 Months Insurance [facility] Medicare Medicaid [place] Care Teams School Guidance Counselor Relationship Specialty Start Date End Date [facility] [address] [place] [address] PCP - General 11/22/24
== END 2024-11-23 11:22 | disposition home or self-care (01) ==
LOC: HO.HGI 10:21
PROVIDERS: PCP Registered Nurse; Visit Provider Nurse Practitioner
DX: K86.81 Exocrine pancreatic insufficiency (principal); E73.9 Lactose intolerance, unspecified; K21.9 Gastro-esophageal reflux disease without esophagitis
CPT/HCPCS: 99213

== ENCOUNTER → 2024-11-23 10:21 | Outpatient (BNVA) | payer OTHER, SELFPAY | PROVIDERS: PCP Registered Nurse; Visit Provider Nurse Practitioner ==

== ENCOUNTER 2024-11-23 11:38 | Outpatient (REF) | payer OTHER, SELFPAY ==
[2024-11-23 12:58] LABS: Anion Gap 14 (12-20); Blood Urea Nitrogen 17 mg/dL (9-16); Carbon Dioxide 23 mmol/L (22-29); Chloride 102 mmol/L (96-108); Estimated Glomerular Filt Rate > 60; Potassium 4.7 mmol/L (3.3-5.1); Sodium 134 mmol/L (135-145)
--- OUTSIDE RECORDS SUMMARY | 2024-11-23 13:12 | XMS_ITS | Clinical Summary ---
Author Organization [employer] Address [address] [facility] 7t [place] [address] Care Team Providers Care Television Anchor Name Role Phone Abbi Saha [facility] Primary Care Provider [phone] Allergies No known active allergies Medications Diclofenac Sodium 1 % gel Apply 2 g topically every 6 (six) hours. 06/06/20 21 Active Lidocaine 4 % patch Apply to the affected area up to 3 times daily as needed Active sildenafil (Viagra) 100 MG tablet Take 1 tablet by mouth at bed time. Active Blood Glucose Monitoring Suppl (Agenda Verio) w/Device kitIndications :Type 2 diabetes mellitus without complication, without long-term current use of insulin ([facility]) 1 kit before breakfast and before [...] tablet 5 mg. 05/06/20 24 Active Creon 75723-82111 units capsule 2 capsules. 04/19/20 24 Active Farxiga 10 MGIndications: Type 2 diabetes mellitus with other specified complication, unspecified whether prison insulin use (CMS/HCC) TAKE 1 TABLET BY MOUTH EVERY MORNING 90 tablet 1 06/14/20 24 Active glucose blood (INNOBITouch Verio) test strip TEST BLOOD SUGAR TWICE A DAY 100 each 08/21/19 25 Active Multiple Vitamin (Multivitamin) tabletIndicati ons:Type 2 diabetes mellitus with hyperglycemia, without long-term current use of insulin (CMS/[facility]) TAKE 1 TABLET BY MOUTH EVERY EVENING WITH FOOD 90 tablet 3 08/23/19 25 Active metFORMIN (Glucophage) 1000 MG tabletIndicati ons:Type 2 diabetes mellitus with hyperglycemia, without long-term current use of insulin (CMS/[facility]) Take 1 tablet (1,000 mg) by mouth with breakfast and with evening meal. 60 tablet 11 09/08/19 25 026 Active SITagliptin (Januvia) 25 MG tabletIndicati ons:Type 2 diabetes mellitus with hyperglycemia, without long-term current use of insulin ([facility]) Take 1 tablet (25 mg) by mouth Once per day. 30 tablet 09/08/19 25 026 Active Lancets (OneTouch Delica Plus [id number]) miscIndication s:Elevated blood sugar TEST BLOOD SUGAR [...] dx of metastatic NSCLC 04/2024.-- Presented to [facility] w1 with acute SOB. CT chest [...] of metastatic disease. PET-CT performed 05/30/24 at [facility] showed FDG avid loculated left-sided pleural effusion [...] maintenance 10/16/2022 Overview (10/25/2022): Healthcare Maintenance: C-scope: [facility] 2021, needs records PSA: Per urology HCV Screen: Neg 09/10 HIV Screen: Neg 09/10 Immunizations: UTD ?? Weight loss 09/17/2022 Diabetes 09/11/2022 Overview (02/25/2024): Farxiga 10mg daily Metformin 1000mg b.i.d Januvia 25 mg daily Foot Exam: Risk 0; followed by podiatry ([place]) Eye Exam: [facility] Eye care Statin: Yes ASA: No [...] labs today ?? Has upcoming appointment for [facility] eye care Assessment & Plan (10/25/2022 [...] (05/19/2023 11:14 AM EDT): ?? Compliant with [employer] SU[employer] WORK[employer] agreement ?? Only using tramadol 1x/week due to concern re addiction ?? Advised patient OK to take tramadol at bedtime nightly if pain interfering with sleep ?? Continue acetaminophen PRN during day ?? Continue lidocaine patch ?? Continue topical diclofenac gel ?? Continue acupuncture ?? PT referral for general gait instability Assessment & Plan (10/25/2022 1:09 PM EDT): ?? Will refer to [employer]MODATION SUPPORT WORKER RN Hypertensive disorder 04/12/2017 Overview (02/25/2024): [...] Type Department Care Team Description 11/16/2024 Telephone [facility] MEDICINE [address] [place] [phone] Abbi Saha FNP Pcp's message 11/02/2024 Telephone [facility] [address] [place] [address] Abbi Saha FNP Durable Medical Equipment [facility] Transparent Film ) 10/29/2024 Refill [facility] MEDICINE [address] [place] [address] Abbi Saha FNP Dyspepsia 10/25/2024 9:15 AM EDT Office Visit [facility] MEDICINE [address] [place] [address] Abbi Saha FNP Type 2 diabetes mellitus with hyperglycemia, without long-term current use of insulin ([facility]) (Primary Dx); Acute cough; Sensorineural hearing loss (SNHL) of both ears; Dietary counseling; Exercise counseling 10/25/2024 Travel 10/24/2024 Telephone [facility] [address] [place] [address] Abbi Saha FNP chart prep 10/06/2024 Refill [facility] MEDICINE [address] [place] [address] Maria AAbbi robb FNP Elevated blood sugar 09/26/2024 1:00 PM EDT Office Visit [facility] ADULT DENTAL [address] [place] [address] Amber Conteh Dental plaque (Primary Dx); Dental calculus; Encounter for dental examination; Dental caries; Periodontal disease; Bone loss 09/20/2024 Telephone [facility] MEDICINE [address] [place] [address] Abbi Saha FNP No Show 09/08/2024 3:15 PM EST Telemedicine [facility] MEDICINE [address] [place] [address] Maria AAbbi robb FNP Type 2 diabetes mellitus with hyperglycemia, without long-term current use of insulin ([facility]) (Primary Dx); Non-small cell cancer of left lung ([facility]) 09/08/2024 Travel 09/01/2024 Telephone [facility] MEDICINE [address] [place] [address] Lola Xie RN Blood Sugar Readings 08/31/2024 Telephone [facility] [address] [place], [place] [phone] Maria AAbbi robb FNP [employer] Patient Care [...] Info) Description 12/15/2024 11:15 AM EDT Telemedicine [facility] MEDICINE [address] [place], [place] [phone] [place] FNP [address] [place] [address] 04/10/2025 10:00 AM EDT Office Visit [facility] ADULT DENTAL [address] [place] [address] Amber Conteh Health Maintenance Due Date Last [...] hyperglycemia, without long-term current use of insulin ([facility]) POCT GLUCOSE Routine 10/25/2024 9:23 AM EDT Type 2 diabetes mellitus with hyperglycemia, without long-term current use of insulin ([facility]) PERIODIC ORAL EVALUATION - ESTABLISHED PATIENT Routine [...] hyperglycemia, without long-term current use of insulin ([facility]) LIPID PANEL, STANDARD Routine 05/03/2023 8:36 AM EDT Type 2 diabetes mellitus with hyperglycemia, without long-term current use of insulin ([facility]) HEPATITIS C AB W/REFL TO HCV RNA, QN, PCR Routine 09/11/2022 3:09 PM EST Healthcare maintenance from Last 3 Months or Most Recently Relevant to Health Maintenance Results * Referral to Audiology (11/14/2024) [facility] OUTPATIENT REFERRAL ORDERABLE S Final Result * XR Chest 2 Views (10/25/2024 10:13 AM EDT) Anatomical Region Laterality Modality Chest Radiographic Brianna ging 10/25/2024 10:1 3 AM EDT Narrative 10/25/2024 10:32 AM EDT ?[facility] [facility] ?[address] ?[place] [address] ?XRay Report ? Signed ? Patient: Viki,Lei ?MR#: [id number] ? : 1945 ?Acct:[id number] ? Age/Sex: 79 / M ?ADM Date: 10/25/24 ? Loc: HO.HHCX ? Attending Dr: Abbi RIVAS ? Ordering Physician: Abbi Saha ?? Date of Service: 10/25/24 ?? Procedure(s): XR chest 2V ?? Accession Number(s): [id number] ? cc: Abbi Saha ? EXAMINATION: ??XR [...] DD/ 1013 ? TD/TT: 10/25/24 1020 ? Scalp Treatment Specialist: ? Procedure Note Angela Bragg - 10/25/[address] [address] XRay Report Signed Patient: Scottie Drew#: [id number] : 6Acct:[id number] Age/Sex: 79 / MADM Date: 10/25/24 Loc: HO.HHCX Attending Dr: Abbi Saha [facility] Ordering Physician: Abbi Saha COIL CUTTER Date of Service: 10/25/24 Procedure(s): XR chest 2V Accession Number(s): [id number] cc: Abbi Saha [facility] EXAMINATION: XR CHEST 2 VIEWS HISTORY: 79 [...] 10/25/24 1029 DD/ 1013 TD/TT: 10/25/24 1020 Scalp Treatment Specialist: [facility] IMG XR PROCEDURES Final Resul t * (ABNORMAL) POCT HGB A1C (10/25/2024 9:24 AM EDT) Hemoglobin A1C 6.7(A) 4.0 - 6.0 % QC Media Lot # [id number] Lot# Expiration Date , Blood 10/25/2024 9:24 AM EDT [facility] POINT OF CARE TEST ENTER/EDIT ORDERABLES Final Result * POCT Glucose (10/25/2024 9:23 AM EDT) Glucose Blood, POC 165 60 - 200 mg/dL QC Media Lot # [id number] Lot# Expiration Date [id number] Blood Capillary blood specimen / Unknown 10/25/2024 9:23 AM EDT [facility] COIL CUTTER POINT OF CARE TEST ENTER/EDIT ORDERABLES Final Result * PET/CT Bone Skull Base to Mid Thigh (09/19/2024 12:01 PM EST) Anatomical Region Laterality Modality Body Computed Tomogra phy 09/19/2024 12:0 1 PM EST Narrative 09/20/2024 9:26 AM EST ? [facility] ?[address] ?[place] [address] ? PET Report ? Signed ? Patient: Viki,Lei ?MR#: [id number] ? : 1945 ?Acct:[id number] ? Age/Sex: 79 / M ?ADM Date: 09/19/24 ? Loc: HO.PET ? Attending Dr: Louisa Morales MD ? Ordering Physician: Louisa Morales MD ?? Date of Service: 09/19/24 ?? Procedure(s): PET CT fusion skull to thigh ?? Accession Number(s): [id number] ? cc: Louisa Morales MD; Abbi Saha [...] DD/ 1201 ? TD/TT: 09/19/24 1500 ? Scalp Treatment Specialist: MSM ? Procedure Note Yemi, Angela - 09/20/2024 [place] [address] PET Report Signed Patient: Scottie Drew#: [id number] : 1945cct:[id number] Age/Sex: 79 / MADM Date: 09/19/24 Loc: HO.PET Attending Dr: Louisa Morales MD Ordering Physician: Louisa Morales MD Date of Service: 09/19/24 Procedure(s): PET CT fusion skull to thigh Accession Number(s): [id number] cc: Louisa Morales MD; Abbi Saha EXAMINATION: [...] 09/20/24 0923 DD/ 1201 TD/TT: 09/19/24 1500 Scalp Treatment Specialist: FART[facility] External Provider IMG CT PROCEDURES Edited Result - Final * Albumin, Random Urine W/Creatinine (05/03/2023 8:36 AM EDT) Creatinine, Urine 54.13 mg/dL [facility] Microalbumin Urine 8.0 mg/L [facility] Microalbum Creatinine Ratio Ur 14.7 <30 ug/mg cr [facility] Comment:Albumin/Creatinine R atio Reference Ranges: Normal: < 30 ug/mg creatinine Microalbuminuria: 30 - 300 ug/mg creatinineClinical Albuminuria: > 300 ug/mg creatinine Urine 05/03/2023 8:36 AM EDT 05/03/2023 11:07 AM EDT [facility] LAB URINE ORDERABLES Final Re sult [facility] [address] [place], [place] [phone] * Lipid Panel, Standard (05/03/2023 8:36 AM EDT) Triglycerides 83 <150 mg/dL [facility] Comment:Desirable Triglyceri de: less than 150 mg/dLBorderline High Triglyceride 150-199 mg/dLHigh Triglyceride: 200-499 mg/dLVery High Triglyceride: greater than or equal to 5OO mg/dL Cholesterol 136 <200 mg/dL [facility] Comment:Desirable Cholestero l: less than 200 mg/dLBorderline High Cholesterol: 200-239 mg/dLHigh Cholesterol: greater than 239 mg/dL LDL Cholesterol Calculated 54 <100 mg/dL [facility] Comment:Desirable LDL: less than 100 mg/dLNear Optimal/Above Optimal LDL: 110- 129 mg/dLBorderline High LDL: 130-159 mg/dLHigh LDL: 160-189 mg/dLVery High LDL: greater than or equal to 190 mg/dL HDL Cholesterol 66 >40 mg/dL [facility] Comment:Desirable HDL: great er than 40 mg/dL Note: This HDL assay may give artificially low results in patients with liver disease. Blood Venous blood specimen / Unknown 05/03/2023 8:36 AM EDT 05/03/2023 11:13 AM EDT [facility] LAB BLOOD ORDERABLES Final Re sult [facility] [address] [place] [address] [phone] * Hepatitis C Antibody with Reflex to HCV, RNA, Quantitative, Real-Time PCR (09/11/2022 3:09 PM EST) Hepatitis C Antibody NON-REACT VAHID NON-REACT VAHID [facility] [place] tribalXt Index <0.02 <1.00 [facility] [place] [facility] Comment: HCV antibody was non-reactive. There is no laboratory evidence of HCV infection. In most cases, no further action is required. However, if recent HCV exposure is suspected, a test for HCV RNA (test code 67196) is suggested. For additional information please refer to http://[email or web address]/faq/YSH12r4 (This link is being provided for informational/ educational purposes only.) Blood Venous blood specimen / Unknown 09/11/2022 3:09 PM EST 09/11/2022 3:09 PM EST Narrative [facility] - 09/14/2022 1:32 PM EST FASTING:NO FASTING: NO [facility] LAB BLOOD ORDERABLES Final Re sult [facility] [address] [facility], [place] [address] [employer] [facility] [address] [facility], ([address]) [place] [address] from Last 3 Months or Most Recently Relevant to Health Maintenance Insurance [employer] [place] [id number] DENTAL - [facility] Care Teams Television Anchor Relationship Specialty Start Date End Date [place] CityAbbi [facility] [address] [place] [address] PCP - General Family Medicine 04/01/23 [facility]
--- OUTSIDE RECORDS SUMMARY | 2024-11-23 13:12 | XMS_ITS ---
Author Name Dineshmikaela TSERING, RN, RD, Ade[place] Address [address] [place] [address] Phone [phone] [facility] Care Team Providers Care Building Services Technician Name Role Phone Adeola Campuzano Unavailable [phone] Unavailable Unavailable Unavailable [facility] Unavailable [phone] TYLER LARES Unavailable [phone] [facility] Unavailable [phone] [facility] Unavailable [phone] Reason for Referral Not Available Allergies, adverse [...] 2023-01-05 No Data Available OneTouch Delica Plus [id number] Miscellaneous TEST BLOOD SUGAR TWICE DAILY 2022-08-20 [...] 5 mg Cap TAKE 1 CAPSULE BY [facility] AT BEDTIME 2023-06-15 No Data Available Problem List Problem Status Onset Date Resolved Date Hypertension Active 2023-09-28 N/A BPH (benign prostatic hyperplasia) Active 2023- 3-12 N/A Type 2 diabetes mellitus with hyperlipidemia Active 2023-09-28 N/A Other problems related to co dical facilities and other health care Active 2023-09-28 N/A Encounters Encounters Type Facility Date of Service Diagnosis/Co mplaint Unlisted special service; to be used for medical record reviews and reporting CPTII codes (1111F, etc) [facility] 05/27/2024 Encounter for other specifie d aftercare Unlisted special service; to be used for medical record reviews and reporting CPTII codes (1111F, etc) [facility] 05/[place]/2024 Social History Sex Male History of Procedures Procedures Service Procedure code Service date Servicing provider Phone# Unlisted special service; to be used for medical record reviews and reporting CPTII codes (1111F, etc) [address] 2024-05-28 No Data Available No Data Availa ble Medications prescribed in hospital were reviewed and reconciled against what they were taking prior to admission during today's visit. (1111F) 1111F 2024-05-28 No Data Available No Data Availa ble Functional Status No Information Mental Status No Information Assessments Not Available Plan of Care Not Available
--- OUTSIDE RECORDS SUMMARY | 2024-11-23 13:13 | XMS_ITS | Encounter Summary ---
Author Organization [employer] Address [address] [facility] 7t [place] [address] Care Team Providers Care Leather Carver Name Role Phone [place] [facility] Primary Care Provider [phone] Reason for Visit * Reason Comments Med Refill Encounter Details Date Type Department Care Team ([facility] Contact Info) Description 07/16/2024 Refill [facility] MEDICINE [address] [place], [place] [phone] [place] [facility] [address] [place] [address] Type 2 diabetes mellitus with hyperglycemia, without long-term current use of insulin ([facility]) Social History Tobacco Use Types Packs/Day [...] the past 12 months, has t he Reactivity, gas, oil or water company threatened to [...] Info) Description 12/15/2024 11:15 AM EDT Telemedicine [facility] MEDICINE [address] [place] [address] Abbi Saha FNP [address] [place] [address] 04/10/2025 10:00 AM EDT Office Visit [facility] ADULT DENTAL [address] [place] [address] Amber Conteh documented as of this encounter Visit Diagnoses Diagnosis Type 2 diabetes mellitus with hyperglycemia, without long-term current use of insulin ([facility]) documented in this encounter Additional Health Concerns Assessment Noted Time PHQ-9 Depression Total Score: 0 07/05/20 24 11:25 AM EST documented as of this encounter Care Teams Leather Carver Relationship Specialty Start Date End Date Abbi Saha FNP [address] [place] [address] PCP - General Family Medicine 04/01/23 Noemi A 05/08/24 documented as of this encounter
--- OUTSIDE RECORDS SUMMARY | 2024-11-23 13:13 | XMS_ITS | Encounter Summary ---
Author Organization [employer] Address [address] [facility] 7t [place] [address] Care Team Providers Care Blunger Name Role Phone Sandy Torrez MD Primary Care Provider Unava ilable [facility] Primary Care Provider [phone] Gogo Palacio [facility] Primary Care Provider [phone] [facility] Primary Care Provider [phone] Encounter Details Date Type Department Care Team (Latest Contact Info) Description 06/23/2021 Abstract [facility] CONVERSIONS Dental, Provider, DDS Social History [...] Description 12/15/2024 11:15 AM EDT Telemedicine [facility] MEDICINE [address] [place] [address] [facility] [address] [place] [address] 04/10/2025 10:00 AM EDT Office Visit [facility] ADULT DENTAL [address] [place] [address] Amber Conteh documented as of this encounter Visit Diagnoses Not on filedocumented in this encounter Care Teams Blunger Relationship Specialty Start Date End Date Sandy Torrez MD PCP - General Family Medicine 01/09/20 06/22/22 [place] FNP [address] [place] [address] PCP - General Family Medicine 06/23/22 03/28/23 Gogo Palacio FNP [address] [place] [address] PCP - General Family Medicine 03/29/23 03/31/23 [place] FNP [address] [place] [address] PCP - General Family Medicine 04[facility]01/23 [facility] documented as of this encounter
--- OUTSIDE RECORDS SUMMARY | 2024-11-23 13:13 | XMS_ITS | Encounter Summary ---
Author Organization [employer] Address [address] [facility] 7t [place] [address] Care Team Providers Care Shipsmith Name Role Phone Sandy Torrez MD Primary Care Provider Unava ilable [facility] Primary Care Provider [phone] Gogo Palacio [facility] Primary Care Provider [phone] [facility] Primary Care Provider [phone] Encounter Details Date Type Department Care Team (Latest Contact Info) Description 07/17/2019 Abstract [facility] CONVERSIONS Dental, Provider, DDS Social History Tobacco [...] Info) Description 12/15/2024 11:15 AM EDT Telemedicine [facility] MEDICINE [address] [place] [address] [facility] [address] [place] [address] 04/10/2025 10:00 AM EDT Office Visit [facility] ADULT DENTAL [address] [place] [address] Amber Conteh documented as of this encounter Visit Diagnoses Not on filedocumented in this encounter Care Teams Shipsmith Relationship Specialty Start Date End Date Sandy Torrez MD PCP - General Family Medicine 01/09/20 06/22/22 [place] FNP [address] [place] [address] PCP - General Family Medicine 06/23/22 03/28/23 Gogo Palacio FNP [address] [place] [address] PCP - General Family Medicine 03/29/23 03/31/23 [place] robb FNP [address] [place] [address] PCP - General Family Medicine 04/01/23 [facility] documented as of this encounter
--- OUTSIDE RECORDS SUMMARY | 2024-11-23 13:13 | XMS_ITS | Encounter Summary ---
Author Organization [facility] Address [address] [place] [address] [address] [place] [address] Phone Care Team Providers Care Mobile Home Mechanic Name Role Phone Abbi Saha Primary Care Provider [phone] Reason for Visit * Reason Comments Hypertension Encounter Details Date Type Department Care Team ([facility] Contact Info) Description 11/22/2024 11:45 AM EDT [facility] Visit [facility] [address] [address] Rosanna Zamudio ARNP [address] [address] Hypertensive disorder (Primary Dx); Hyponatremia [...] [facility] P[facility]ma Delia [address] [facility] [address] [place] [address] Rosanna Zamudio ARNP [address] [address] Scheduled Orders Name Type Priority [...] Hyponatremia documented in this encounter Care Teams Mobile Home Mechanic Relationship Specialty Start Date End Date [facility] [address] [place] [address] PCP - General 11/22/24 documented as of this encounter
--- OUTSIDE RECORDS SUMMARY | 2024-11-23 13:13 | XMS_ITS | Clinical Summary ---
Author Organization [facility] Address [address] [place] [address] Phone Care Team Providers Care Button Puncher Name Role Phone Unavailable Primary Care Provider [...]
--- OUTSIDE RECORDS SUMMARY | 2024-11-23 13:13 | XMS_ITS | Clinical Summary ---
Author Organization [facility] Address [address] [facility] [address] [place] [address] Phone Care Team Providers Care Transportation Economics Teacher Name Role Phone Maria A Abbi Primary Care Provider [phone] Allergies No known active allergies Medications Multiple [...] Office Visit [facility] [address] [address] Rosanna Zamudio ARNP Hypertensive disorder [...] [facility] PAlma DeliaCAlma Delia [address] [facility] [address] [place] [address] Rosanna Zamudio ARNP [address] [facility] [address] [place] [address] Health Maintenance Due Date Last [...] 3 Months Insurance [facility] Medicare Medicaid [place] Care Teams Transportation Economics Teacher Relationship Specialty Start Date End Date [facility] [address] [place] [address] PCP - General 11/22/24
--- OUTSIDE RECORDS SUMMARY | 2024-11-23 13:13 | XMS_ITS | Encounter Summary ---
Author Organization [employer] Address [address] [place] [address] Care Team Providers Care Cost Clerk Name Role Phone [facility] Primary Care Provider [phone] Encounter Details Date Type Department Care Team ([facility] st Contact Info) Description 08/11/2023 Orders Only [facility] [address] [place], [place] [phone] [place] [facility] [address] [place], [place] [phone] Sensorineural hearing loss (SNHL) of both ears; Lower urinary tract symptoms (LUTS); Gait instability; Type 2 diabetes mellitus with hyperglycemia, without long-term current use of insulin ([facility]); Hammertoes of both feet; Diminished [...] [facility] [address] [place] [address] [facility] [address] [place] [address] 04/10/2025 10:00 AM EDT Office Visit [facility] ADULT DENTAL [address] [place] [address] Amber Conteh documented as of this encounter Procedures Procedure Name Priority Date/Time Associated Diagnosis Comments AMB REFERRAL TO ENT Routine 10/14/2023 Sensorineural hearing loss (SNHL) of both ears documented in this encounter Results * Referral to ENT (10/14/2023) [facility] OUTPATIENT REFERRAL ORDERABLE S Final Result documented in this encounter Visit Diagnoses Diagnosis Sensorineural hearing loss (SNHL) of both ears Lower urinary tract symptoms (LUTS) Gait instability Abnormality of gait Type 2 diabetes mellitus with hyperglycemia, without long-term current use of insulin ([facility]) Hammertoes of both feet Diminished pulses in lower extremity Facial skin lesion documented in this encounter Additional Health Concerns Assessment Noted Time PHQ-9 Depression Total Score: 0 12/15/20 23 9:13 AM EST documented as of this encounter Care Teams Cost Clerk Relationship Specialty Start Date End Date Abbi Saha FNP [address] [place], [place] [address] [address] PCP - General Family Medicine 04/01/23 Noemi GARCIA 05/08/24 documented as of this encounter
[2024-11-23 13:58] LABS: Creatinine Urine 63.02 mg/dL; Microalbum/Creatinine Ratio Ur 14.2 ug/mg cr (<30); Total Protein Urine Random < 7 mg/dL (<12)
== END 2024-11-23 11:39 | disposition home or self-care (01) ==
LOC: HO.LAB 11:38
PROVIDERS: PCP Registered Nurse; Visit Provider Internal Medicine Nephrology
DX: E87.1 Hypo-osmolality and hyponatremia (principal)
CPT/HCPCS: 36415; 80051; 82043; 82310; 82565; 82570; 84156; 84520

== ENCOUNTER 2025-01-05 12:07 | Emergency (ER) | payer MEDICARE, SELFPAY ==
--- NOTE | ~2025-01-05 | XR_ITS ---
EXAMINATION: XR BILATERAL HIPS WITH AP PELVIS CLINICAL INFORMATION: fall/hematoma COMPARISON: None available. TECHNIQUE: AP view of the pelvis and 2 views of each hip were obtained. FINDINGS: Normal bone mineralization. No fracture, dislocation, or suspicious bone lesion. Normal alignment. Mild degenerative changes in both hip joints. The sacrum is intact. There are mild degenerative changes in both SI joints. There are advanced degenerative changes in the lower lumbar spine. Soft tissues demonstrate vascular calcifications. XR/XR hip BI w PEL1V IMPRESSION: 1. No definite fracture or dislocation. Electronically signed by: David Gilliam MD 01/05/2025 02:58 PM EDT
--- NOTE | ~2025-01-05 | XR_ITS ---
EXAMINATION: XR FEMUR, RIGHT CLINICAL INFORMATION: fall/hematoma COMPARISON: None available. TECHNIQUE: AP and lateral views of the right femur were obtained. FINDINGS: No fracture, dislocation, or suspicious bone lesion. Total right knee arthroplasty without complication. There is a moderate size joint effusion. There are vascular calcifications in the soft tissues. XR/XR femur RT 2V IMPRESSION: 1. No acute fracture or dislocation. 2. Total right knee arthroplasty. No complication evident. 3. Moderate sized suprapatellar joint effusion. 4. Vascular calcifications. Electronically signed by: David Gilliam MD 01/05/2025 02:57 PM EDT
--- NOTE | ~2025-01-05 | CT_ITS ---
CLINICAL HISTORY: hematoma CTA angio right leg with bolus contrast injection and 3D reconstructions: Comparison: None. Findings: Soft tissues in the right pelvis are unremarkable. There is superficial fascia edema and swelling involving medial and posterior right thigh. No focal organized abscess or seroma. The right external and internal iliac arteries are normal. Right common femoral and profunda arteries are normal. The superior right popliteal artery, geniculate, and soleal artery branches are perfused. The middle and inferior portions of the right popliteal artery are obscured by beam hardening artifact from right knee arthroplasty. The below-knee trifurcation and proximal deep arteries of the right calf are partially obscured due to arthroplasty metal artifact. Calcified atherosclerotic plaque is present in the proximal anterior tibial artery Images of the right calf and inferior right lower leg are not included. Impression: 1. The arteries of the right upper leg are normal without stenosis. 2. Popliteal artery and trifurcation right calf deep arteries are obscured by metal artifact from right knee arthroplasty. Consider ultrasound and/or ankle-brachial indices for definitive diagnostic information. 3. Medial posterior right thigh superficial fascia gravity dependent fluid. Cannot exclude exudate of pre abscess formation. Correlate clinical exam for cellulitis in this location. This document has been electronically signed by: Phi Garcia MD on 01/05/2025 18:06:24
--- NOTE | ~2025-01-05 | CT_ITS ---
EXAMINATION: CT HEAD WITHOUT CONTRAST CLINICAL INFORMATION: Fall COMPARISON: None available. TECHNIQUE: Contiguous axial imaging was performed from the skull base to vertex without intravenous administration of contrast. This CT examination was performed using dose optimization techniques as appropriate, variously including the following: *Automated exposure control *Adjustment of mA and/or kV according to patient size (this includes techniques or standardized protocols for targeted exams where dose is matched to indication/reason for exam; i.e. extremities or head) *Use of iterative reconstruction technique DLP: 642 mGY*cm FINDINGS: There is no acute ischemic change. There is no intracranial hemorrhage. There is no mass-effect or midline shift. Basal cisterns and ventricles are within normal limits for age/cerebral volume. Orbits are symmetrical and unremarkable. Trace mucosal thickening is present in the posterior right maxillary sinus. There are no bony abnormalities. CT/CT head/brain wo IV con IMPRESSION: No acute intracranial abnormality. Trace mucosal thickening in the right maxillary sinus. Electronically signed by: Peewee Booker MD 01/05/2025 03:03 PM EDT
[2025-01-05 12:24] VITALS: BP 112/56; PULSE 79; RESP 18; TEMP 36.8; O2SAT 99; BMI 21.9
--- NOTE | 2025-01-05 12:24 | ED.EXTPRO ---
HPI - Extremity Problem General Chief complaint: Extremity Problem Stated complaint: Right Leg Bruise, Fall two days ago Time Seen by Provider: 01/05/25 12:47 Source: patient and family ( granddaughter at bedside corroborating history) Mode of arrival: wheelchair Limitations: language barrier ( [place]an-speaking) History of Present Illness ED Provider: Leonidas Francis PA-C HPI Narrative: 79-year-old [place]-speaking male accompanied by Citizen [place] speaking granddaughter with medical history of rra-[id number] lung cancer, GERD, HLD, BPH, HTN,T2DM, presents to the ED due to right thigh hematoma. patient's grandmother stated he had a fall 3 days ago 01/02 after trying to get out of the bathroom using his walker and tripping. Patient states he hit his head but denies loss of consciousness. Patient states that the bruise on his thigh started out small and was apparent before the fall happened. Does not recall hitting/bumping the extremity to cause the hematoma. Over the last 2 days grown from proximal medial thigh to distal medial knee. not on anticoagulants. Denies chest pain, shortness of breath, nausea, vomiting, diarrhea, black/ tarry stool. MD Complaint: extremity pain ( right medial thigh hematoma) Onset (ago): day(s) (3) Pain Consistency: constant Location: right and lower extremity Quality: aching Radiation: none Relieving factors: nothing Exacerbating factors: weight bearing and walking Associated symptoms: denies other symptoms Related Data Home Medications ?Medication ?Instructions ?Recorded ?Confirmed atorvastatin 10 mg tablet 10 mg PO DAILY 05/08/20 11/08/24 blood sugar diagnostic #10 ea 10/04/20 11/08/24 cholecalciferol (vitamin D3) 50 50 mcg PO DAILY 10/04/20 11/08/24 mcg (2,000 unit) capsule lancets 33 gauge #100 ea 10/04/20 11/08/24 metformin 1,000 mg tablet 1,000 mg PO BID 10/04/20 11/08/24 multivitamin 1 tab PO DAILY 10/04/20 11/08/24 dapagliflozin propanediol 10 mg 10 mg PO DAILY 10/09/21 11/08/24 tablet (Farxiga) sitagliptin phosphate 25 mg tablet 25 mg PO DAILY 05/04/23 11/08/24 (Januvia) losartan 25 mg tablet 25 mg PO BEDTIME 01/05/24 11/08/24 nifedipine 30 mg tablet,extended 30 mg PO BEDTIME 01/05/24 11/08/24 release acetaminophen 325 mg tablet 650 mg PO Q6H PRN Pain 04/29/24 11/08/24 omeprazole 20 mg capsule,delayed 20 mg PO BID@0630,1630 04/29/24 11/08/24 release psyllium husk 3.4 gram/5.4 gram 1 tsp PO DAILY 04/29/24 11/08/24 oral powder (Metamucil) Previous Rx's ?Medication ?Instructions ?Recorded walker #1 ea 04/30/20 sildenafil 100 mg tablet (Viagra) 100 mg PO DAILY PRN erectile 01/26/24 dysfunction 90 days #20 tabs terazosin 5 mg capsule 5 mg PO BEDTIME 90 days #90 caps 01/26/24 fluticasone propionate 50 1 spray intranasal BID #1 ea 10/27/24 mcg/actuation nasal spray,suspension kjzvqb-xdrrimky-kaflolo 2 cap PO TID 30 days #180 caps 11/01/24 24,000-76,000-120,000 unit capsule,delayed rel (Creon) trazodone 50 mg tablet 50 mg PO BEDTIME #30 tabs 12/29/24 Allergies Allergy/AdvReac Type Severity Reaction Status Date / Time No Known Allergies (No Known Allergy Verified 01/05/25 12:30 Allergies*) Review of Systems Review of Systems: CONST: Negative for fever, body aches and chills. HENT: Negative for neck pain/stiffness, headache, congestion, sore throat, swelling. EYES: Negative for discharge/pain or vision changes. RESP: Negative for cough/hemoptysis and shortness of breath. CV: Negative chest pain, difficulty breathing, palpitations. ABD: Negative pain, nausea, vomiting. : Negative increase frequency, dysuria, blood in urine or stool. MUSC: Negative for muscle aches, edema. POS hematoma of R medial thigh SKIN: Negative rash, lesions/sores. NEURO: Negative headache, dizziness, weakness. [facility] Past Medical History Medical History (Updated 01/05/25 @ 18:46 by Tito Lauren PA-C) GERD (gastroesophageal reflux disease) Exocrine pancreatic insufficiency Abdominal bloating Renal cyst Loose stools History of revision of total replacement of right knee joint Lung mass High cholesterol Anemia Pleural hemorrhage Diverticulosis Hyponatremia Acute hyponatremia Colon cancer screening Erectile dysfunction Gastritis COVID-19 virus infection Hydrocele Cataract Hypercholesteremia Diabetes BPH (benign prostatic hyperplasia) Hypertension Surgical History (Updated 11/23/24 @ 16:44 by NISH Kaba) History of bilateral knee replacement Visit for wound check S/P chest tube placement Hx of colonoscopy History of prostate surgery Family History Family History Father Diabetes Mother Diabetes Uterus cancer Mother Cancer Social History Social History Household Members: Spouse Housing: Apartment Housing Other:: housing apartment Are you a primary property caretaker to a significant other at home: No Do you presently have visiting nurse or other home services: No Alcohol intake: never Comment: camera placed as pt is impulsive, attempts to get OOB. Hx falls recently Patient Tobacco Use Status: Never used Tobacco Advance Directives: No Advance Directives Information Provided: Yes service: No Current occupational status: retired Current occupation: right handed Gender identity: Male Physical Exam Vital Signs: Vital Signs: Last Vital Signs Temp 98.8 F 01/05/25 14:00 Pulse 88 01/05/25 17:48 Resp 16 01/05/25 17:48 BP 130/66 01/05/25 17:48 Pulse Ox 99 01/05/25 17:48 O2 Del Method Room Air 01/05/25 17:48 BMI result Body Mass Index 21.9 GENERAL APPEARANCE: ?AxOx4, generally well-appearing, no acute distress. HEENT: ?NC, AT. MMM. EOMI, clear conjunctiva, oropharynx clear. HEART:? Normal rate and regular rhythm, normal S1/S1, no m/r/g LUNGS:? CTAB, moving air well. No crackles or wheezes are heard. ABDOMEN: ?Soft, nontender, nondistended with good bowel sounds heard. BACK: No CVAT, no obvious deformity. EXTREMITIES: ?Without cyanosis, clubbing or edema. R medial thigh with hematoma extending to the medial proximal knee, no edema, erythema, warmth, no induration of hematoma. No calf tenderness. See attached photo : Large scrotum due to chronic R inguinal hernia containing fat and loop of bowel, no pain with palpation, no overlying skin changes. NEUROLOGICAL: ?Grossly nonfocal. Alert and oriented, moving all 4 extremities. Using wheelchair for ambulation due to pain of R leg. Skin: ?Warm and dry without any rash. Course Course Course Narrative: This is a Rapid Medical Examination (RME) performed by Rodolfo Lee PA-C in triage. Full HPI, ROS, assessment and treatment plan per primary provider in the Main ED. 79 y/o [place] speaking male with history of NSCLC on chemo w/ Dr. Morales who presents to the ER for evaluation of painful, spontaneous bruising on the posterior right thigh that started today. Unable to bear weight. Denies injury. Denies being on anticoagulation. Plan: labs, full exam in treatment room Medications Administered Discontinued Medications Generic Name Dose Route Start Last Admin Trade Name Freq PRN Reason Stop Dose Admin Magnesium Sulfate 2 gm in 50 mls @ 150 mls/hr 01/05/25 14:00 01/05/25 15:52 Magnesium Sulfate/H2o IV 01/05/25 14:19 Infused ONCE ONE Infusion Acetaminophen 1,000 mg in 100 mls @ 400 mls/hr 01/05/25 16:25 01/05/25 16:45 Ofirmev IV 01/05/25 16:39 Infused ONCE ONE Infusion Iohexol 100 ml 01/05/25 17:18 01/05/25 17:19 Iohexol 350 Mg/Ml 100 Ml Infus..Btl IV 01/05/25 17:19 100 ml ONCE ONE Administration Medical Decision Making Medical Decision Making MDM Narrative: 79-year-old [place]-speaking male accompanied by Citizen [place] speaking granddaughter with medical history of [id number]-qqlu lung cancer, GERD, HLD, BPH, HTN,T2DM, presents to the ED due to right thigh hematoma. patient's grandmother stated he had a fall 3 days ago 01/02 after trying to get out of the bathroom using his walker and tripping. Patient states he hit his head but denies loss of consciousness. Patient states that the bruise on his thigh started out small and was apparent before the fall happened. Does not recall hitting/bumping the extremity to cause the hematoma. Over the last 2 days grown from proximal medial thigh to distal medial knee. VSS, in no acute distress, nontoxic appearing. Physical exam reveals right medial thigh hematoma extending to right proximal knee, compartment soft- less likely compartment syndrome. No induration of hematoma,without edema, erythema, warmth, no calf tenderness. scrotum very large with a left-sided Chronic inguinal hernia. upon chart review hernia is containing fat and a loop of bowel. no TTP over B/L trochanter, patella, malleolus. no other ecchymosis noted of the lower extremities, without edema. At this time patient is ambulating with wheelchair due to pain of his right leg on weight-bearing and walking , patient able to get out of wheelchair with assistance and take a few steps to bed. Labs reveal Normocytic anemia with hemoglobin at 12.9 and hematocrit at 36.2. hyponatremia of 127 but on chart review this value is around patient's baseline. hypomagnesemia of 1.4, potassium within normal range at 4.2. No elevation of CK, renal function WNL- less likely rhabdomyolosis. EKG normal sinus rhythm, with right bundle branch block, no ST elevation / depression, T-wave abnormalities, initial troponin WNL- less likely ACS. Patient given 2 g IV magnesium for repletion, 1 g of IV acetaminophen for pain management. Course 17:47- CT scan head/brain done due to fall with headstrike 3 days ago, patient asymptomatic not on AC. No acute intracranial pathology. XR B/L hips/pelvis and XR R femur without fracture, or dislocation. Mild joint effusion of R knee. Patient states his R knee swells chronically since having knee replacement. Bedside ultrasound done by Dr. Waterman suggested there were vessels running just behind the hematoma. He advised to get a CTA of the R leg to ensure there was no internal bleeding. Currently awaiting results. 18:35- CBC was redrawn to ensure stable H&H, hemoglobin has increased to 13.4 and hematocrit has been increased to 37.2 further indicating that patient is stable and not having any active bleeding into this area.CTA of R leg suggests to use clinical judgment/exam for possible cellulitis of this location. The medial and posterior thigh does not reveal erythema, warmth or warrant the need to start antibiotics. Patient and his family were counseled on strict return precautions. The right thigh was wrapped in NIALL compression dressing to encourage reabsorption. Patient was counseled on icing the area in 15 minute increments and taking tylenol every 6 hours for pain relief. Patient encouraged to follow up with PCP and oncologist. Patient and family agreeable with plan and feel confident on going home for self care. Differential Diagnosis Differential Diagnoses: The differential diagnosis associated with the presentation includes Hematoma Compartment syndrome Rhabdomyolysis ICH Electrolyte abnormality Admission/Observation Consideration of admission/observation: Escalation of care including admission/observation considered Lab Data MDM Lab Attestation statement: I reviewed the patient's lab results. 01/05/25 15:29 01/05/25 12:36 Labs: Lab Results 01/05/25 01/05/25 01/05/25 Range/Units 12:36 15:29 15:30 WBC 7.4 9.4 (4.8-10.8) X10*3/uL RBC 4.31 L 4.45 L (4.60-5.80) X10*6/uL Hgb 12.9 L 13.4 L (14.0-18.0) g/dl Hct 36.2 L 37.2 L (42.0-52.0) % MCV 84.0 83.6 (80.0-98.0) fL MCH 29.9 30.1 (27.0-33.0) pg MCHC 35.6 36.0 (31.0-36.0) g/dl RDW 15.6 15.7 (11.0-16.0) % Plt Count 231 242 (160-400) X10*3/uL MPV 8.9 L 8.9 L (9.4-12.4) fL Immature Gran % (Auto) 0.7 H 0.6 H (0.0-0.4) % Neut % (Auto) 82.3 H 80.6 H (45-73) % Lymph % (Auto) 9.2 L 9.7 L (20-40) % [place] % (Auto) 7.0 7.4 (2-11) % Eos % (Auto) 0.4 1.4 (0-4) % Baso % (Auto) 0.4 0.3 (0-2) % Lymph # (Auto) 0.7 L 0.9 L (1.2-4.9) X10*3/uL [place] # (Auto) 0.5 0.7 (0.1-1.2) X10*3/uL Eos # (Auto) 0.0 0.1 (0.0-0.4) X10*3/uL Baso # (Auto) 0.0 0.0 (0.0-0.2) X10*3/uL Abs Immat Gran (auto) 0.05 H 0.06 H (0.00-0.03) X10*3/uL Absolute Neuts (auto) 6.1 7.6 (2.0-8.3) x10*3/uL Absolute Nucleated RBC 0.000 0.000 (0.0-0.012) X10*3/uL Nucleated RBC % (auto) 0.0 0.0 (0.0-0.2) /100WBC PT 11.7 (10.9-12.4) SEC INR 1.0 (0.9-1.1) APTT 33.1 (26.0-36.8) SEC Sodium 127 L (135-145) mmol/L Potassium 4.2 (3.3-5.1) mmol/L Chloride 96 (96-108) mmol/L Carbon Dioxide 22 (22-29) mmol/L Anion Gap 13 (12-20) BUN 13 (9-16) mg/dL Creatinine 0.66 (0.5-1.4) mg/dL Estim Creat Clear Calc 71.0 Estimated GFR > 60 Random Glucose 140 H (60-115) mg/dL Calcium 9.7 (8.4-10.2) mg/dL Magnesium 1.4 L* (1.6-2.6) mg/dL Total Bilirubin 0.5 (0.0-1.0) mg/dL Direct Bilirubin 0.3 (0.0-0.5) mg/dL AST 16 (5-37) U/L ALT 8 (0-40) U/L Alkaline Phosphatase 91 (39-117) U/L Total Creatine Kinase 52 (38-174) U/L Troponin I High Sens < 2.7 (<3.5-35.0) ng/L B-Natriuretic Peptide 15 (<100) pg/mL Total Protein 6.9 (6.5-8.0) g/dL Albumin 4.3 (3.5-5.0) g/dL Hold Yellow Top See Note Urine Osmolality (373-1093) mosm/kg Ur Random Sodium mmol/L 01/05/25 Range/Units 17:29 WBC (4.8-10.8) X10*3/uL RBC (4.60-5.80) X10*6/uL Hgb (14.0-18.0) g/dl Hct (42.0-52.0) % MCV (80.0-98.0) fL MCH (27.0-33.0) pg MCHC (31.0-36.0) g/dl RDW (11.0-16.0) % Plt Count (160-400) X10*3/uL MPV (9.4-12.4) fL Immature Gran % (Auto) (0.0-0.4) % Neut % (Auto) (45-73) % Lymph % (Auto) (20-40) % [place] % (Auto) (2-11) % Eos % (Auto) (0-4) % Baso % (Auto) (0-2) % Lymph # (Auto) (1.2-4.9) X10*3/uL [place] # (Auto) (0.1-1.2) X10*3/uL Eos # (Auto) (0.0-0.4) X10*3/uL Baso # (Auto) (0.0-0.2) X10*3/uL Abs Immat Gran (auto) (0.00-0.03) X10*3/uL Absolute Neuts (auto) (2.0-8.3) x10*3/uL Absolute Nucleated RBC (0.0-0.012) X10*3/uL Nucleated RBC % (auto) (0.0-0.2) /100WBC PT (10.9-12.4) SEC INR (0.9-1.1) APTT (26.0-36.8) SEC Sodium (135-145) mmol/L Potassium (3.3-5.1) mmol/L Chloride (96-108) mmol/L Carbon Dioxide (22-29) mmol/L Anion Gap (12-20) BUN (9-16) mg/dL Creatinine (0.5-1.4) mg/dL Estim Creat Clear Calc Estimated GFR Random Glucose (60-115) mg/dL Calcium (8.4-10.2) mg/dL Magnesium (1.6-2.6) mg/dL Total Bilirubin (0.0-1.0) mg/dL Direct Bilirubin (0.0-0.5) mg/dL AST (5-37) U/L ALT (0-40) U/L Alkaline Phosphatase (39-117) U/L Total Creatine Kinase (38-174) U/L Troponin I High Sens (<3.5-35.0) ng/L B-Natriuretic Peptide (<100) pg/mL Total Protein (6.5-8.0) g/dL Albumin (3.5-5.0) g/dL Hold Yellow Top Urine Osmolality 559 (373-1093) mosm/kg Ur Random Sodium 32.0 mmol/L Independent Interpretation I performed an independent interpretation of an: EKG Interpretation: I independently interpreted the EKG Vent. Rate : 72 BPM Atrial Rate : 72 BPM P-R Int : 148 ms QRS Dur : 128 ms QT Int : 378 ms P-R-T Axes : 102 -20 24 degrees QTcB Int : 413 ms Normal sinus rhythm Right bundle branch block Abnormal ECG When compared with ECG of 29-Apr-2024 07:04, No significant change was found Radiology Impression Discussion of test interpretation with radiology: I have reviewed the radiologist's reading. Radiologist Impression: B/L hip/pelvis XR FINDINGS: Normal bone mineralization. No fracture, dislocation, or suspicious bone lesion. Normal alignment. Mild degenerative changes in both hip joints. The sacrum is intact. There are mild degenerative changes in both SI joints. There are advanced degenerative changes in the lower lumbar spine. Soft tissues demonstrate vascular calcifications. XR/XR hip BI w PEL1V IMPRESSION: 1. No definite fracture or dislocation. Electronically signed by: David Gilliam MD 01/05/2025 02:58 PM EDT Dictated By: David Gilliam MD Signed By: <Electronically signed by David Gilliam MD in OV> RT Femur XR FINDINGS: No fracture, dislocation, or suspicious bone lesion. Total right knee arthroplasty without complication. There is a moderate size joint effusion. There are vascular calcifications in the soft tissues. XR/XR femur RT 2V IMPRESSION: 1. No acute fracture or dislocation. 2. Total right knee arthroplasty. No complication evident. 3. Moderate sized suprapatellar joint effusion. 4. Vascular calcifications. Electronically signed by: David Gilliam MD 01/05/2025 02:57 PM EDT RP Dictated By: David Gilliam MD Signed By: <Electronically signed by David Gilliam MD in OV> CT head/brain FINDINGS: There is no acute ischemic change. There is no intracranial hemorrhage. There is no mass-effect or midline shift. Basal cisterns and ventricles are within normal limits for age/cerebral volume. Orbits are symmetrical and unremarkable. Trace mucosal thickening is present in the posterior right maxillary sinus. There are no bony abnormalities. CT/CT head/brain wo IV con IMPRESSION: No acute intracranial abnormality. Trace mucosal thickening in the right maxillary sinus. Electronically signed by: Peewee Booker MD 01/05/2025 03:03 PM EDT RP Dictated By: Peewee Booker MD Signed By: <Electronically signed by Peewee Booker MD in OV> R leg CTA Soft tissues in the right pelvis are unremarkable. There is superficial fascia edema and swelling involving medial and posterior right thigh. No focal organized abscess or seroma. The right external and internal iliac arteries are normal. Right common femoral and profunda arteries are normal. The superior right popliteal artery, geniculate, and soleal artery branches are perfused. The middle and inferior portions of the right popliteal artery are obscured by beam hardening artifact from right knee arthroplasty. The below-knee trifurcation and proximal deep arteries of the right calf are partially obscured due to arthroplasty metal artifact. Calcified atherosclerotic plaque is present in the proximal anterior tibial artery Images of the right calf and inferior right lower leg are not included. Impression: 1. The arteries of the right upper leg are normal without stenosis. 2. Popliteal artery and trifurcation right calf deep arteries are obscured by metal artifact from right knee arthroplasty. Consider ultrasound and/or ankle-brachial indices for definitive diagnostic information. 3. Medial posterior right thigh superficial fascia gravity dependent fluid. Cannot exclude exudate of pre abscess formation. Correlate clinical exam for cellulitis in this location. This document has been electronically signed by: Phi Garcia MD on 01/05/2025 18:06:24 Independent Historian Clinical information obtained from an independent historian. History obtained from or confirmed by: Other ( granddaughter at bedside) External Record Review External record reviewed: Inpatient record, Office record and Outpatient record Prescription Management I considered prescription management with: Antibiotic considered starting the patient on Keflex but clinical judgment and physical exam does not show any evidence of cellulitis of this area. There is no erythema, no warmth surrounding the hematoma. Chronic Conditions Patient?s care impacted by: Diabetes, Hypertension and Cancer ( Non-small cell lung cancer) Discharge Plan Discharge Clinical Impression: Hematoma of right thigh Qualifiers: Encounter type: initial encounter Qualified Code(s): S70.11XA - Contusion of right thigh, initial encounter Patient Disposition: Home, Self-Care Instructions: Contusion in Adults (ED) Additional Instructions: You were evaluated in the ED today due to a bruise on your right leg. You stated you had a fall 3 days ago on Wednesday so you were evaluated for any emergent processes. Your EKG was normal, you had a CT of your head and brain which did not show any evidence of bleeding. You had an x-ray of both of your hips and your right femur which is the large thigh bone which did not reveal any fracture or dislocation. You had a CTA of your right leg to observe for any bleeding, this imaging was negative. Your physical exam showed a large hematoma of your right inner thigh without any evidence of an infection. Your blood work showed that you were low on magnesium, you were given 2 g of magnesium through an IV for repletion. You were given IV Tylenol for pain relief which worked well for your pain. Your right leg was wrapped in an Niall bandage for compression to encourage the Bruise to heal. You can ice this area and 15 minute increments through the day, and elevate at night while sleeping to encourage healing. Continue to wrap the right leg in an Niall bandage with mild compression until it heals. You can take Tylenol every 6 hours to manage your pain. Please return to the emergency department if you develop a fever over 100.4?, chills, the bruise gets bigger, the skin feels tight, increased pain of the extremity, nausea, vomiting, or any other new/worsening / concerning symptoms. Prescriptions: No Action (DME) walker Misc See Rx Instructions .ROUTE .MEDSUPPLY Qty: 1 0RF Rx Instructions: Folding Front wheeled walker with seat Creon 24,000-76,000 -120,000 unit capsule,delayed release(DR/EC) 2 cap PO TID 30 Days Qty: 180 6RF Metamucil 3.4 gram/5.4 gram Powder 1 tsp PO DAILY Rx Instructions: mix into at least 4 oz water or juice before administering acetaminophen 325 mg Tablet 650 mg PO Q6H PRN (Reason: Pain) omeprazole 20 mg capsule,delayed release(DR/EC) 20 mg PO BID@0630,1630 fluticasone propionate 50 mcg/actuation [place],Suspension 1 spray INTRANASAL BID Qty: 1 1RF Rx Instructions: administer into each nostril trazodone 50 mg Tablet 50 mg PO BEDTIME Qty: 30 1RF cholecalciferol (vitamin D3) 50 mcg (2,000 unit) capsule 50 mcg PO DAILY metformin 1,000 mg tablet 1,000 mg PO BID multivitamin Tablet 1 tab PO DAILY (DME) lancets 33 gauge misc See Rx Instructions topical .MEDSUPPLY Qty: 100 Rx Instructions: As directed (DME) blood sugar diagnostic Strip See Rx Instructions Not Applicable BID Qty: 10 Rx Instructions: As directed atorvastatin 10 mg tablet 10 mg PO DAILY Farxiga 10 mg tablet 10 mg PO DAILY Januvia 25 mg tablet 25 mg PO DAILY terazosin 5 mg capsule 5 mg PO BEDTIME 90 Days Qty: 90 3RF sildenafil [Viagra] 100 mg tablet 100 mg PO DAILY PRN (Reason: erectile dysfunction) 90 Days Qty: 20 3RF Rx Instructions: administer 30 minutes to 4 hours before activity [facility] [id number] [facility] Group [id number] losartan 25 mg tablet 25 mg PO BEDTIME nifedipine 30 mg tablet extended release 30 mg PO BEDTIME Print Language: [place]
[2025-01-05 12:47] LABS: MANUAL DIFF FLAG NO
[2025-01-05 12:48] LABS: Basophils Percent Auto 0.4 % (0-2); Eosinophils Percent Auto 0.4 % (0-4); Hematocrit 36.2 % (42.0-52.0); Hemoglobin 12.9 g/dl (14.0-18.0); Imm Gran Abs Auto 0.05 X10*3/uL (0.00-0.03); Imm Gran Pct Auto 0.7 % (0.0-0.4); Lymphocytes Absolute Auto 0.7 X10*3/uL (1.2-4.9); Lymphocytes Percent Auto 9.2 % (20-40); Mean Corpuscular HGB Conc 35.6 g/dl (31.0-36.0); Mean Corpuscular Hemoglobin 29.9 pg (27.0-33.0); Mean Platelet Volume 8.9 fL (9.4-12.4); Monocytes Absolute Auto 0.5 X10*3/uL (0.1-1.2); Neutrophils Absolute Auto 6.1 x10*3/uL (2.0-8.3); Neutrophils Percent Auto 82.3 % (45-73); Platelet Count 231 X10*3/uL (160-400); Red Blood Count 4.31 X10*6/uL (4.60-5.80); Red Cell Distribution Width 15.6 % (11.0-16.0); White Blood Count 7.4 X10*3/uL (4.8-10.8)
[2025-01-05 12:58] LABS: Prothrombin Time 11.7 SEC (10.9-12.4)
[2025-01-05 13:01] LABS: Partial Thromboplastin Time 33.1 SEC (26.0-36.8)
[2025-01-05 13:09] LABS: Alanine Aminotransferase 8 U/L (0-40); Albumin Level 4.3 g/dL (3.5-5.0); Alkaline Phosphatase 91 U/L (39-117); Anion Gap 13 (12-20); Aspartate Amino Transferase 16 U/L (5-37); Bilirubin Direct 0.3 mg/dL (0.0-0.5); Bilirubin Total 0.5 mg/dL (0.0-1.0); Blood Urea Nitrogen 13 mg/dL (9-16); Calcium 9.7 mg/dL (8.4-10.2); Carbon Dioxide 22 mmol/L (22-29); Chloride 96 mmol/L (96-108); Estimated Glomerular Filt Rate > 60; Glucose Random 140 mg/dL (60-115); Magnesium 1.4 mg/dL (1.6-2.6); Potassium 4.2 mmol/L (3.3-5.1); Sodium 127 mmol/L (135-145); Total Protein 6.9 g/dL (6.5-8.0)
--- OUTSIDE RECORDS SUMMARY | 2025-01-05 13:39 | XMS_ITS | Encounter Summary ---
Author Organization [employer] Address [address] [facility] [address] [place] [address] Care Team Providers Care Public Space Attendant Name Role Phone Abbi Saha [facility] Primary Care Provider [phone] Encounter Details Date Type Department Care Team ([facility] st Contact Info) Description 01/05/2025 Orders Only GENERIC EXTERNAL DATA DEPARTMENT Provider, Generic External Data Social History Tobacco Use Types Packs/Day Years [...] Care Team (Late st Contact Info) Description 01/05/2025 2:40 PM EDT Office Visit [facility] [address] [place] [address] 04/10/2025 10:00 AM EDT Office Visit [facility] [address] [place] [address] Amber Conteh documented as of this encounter Procedures Procedure Name Priority Date/Time Associated Diagnosis Comments CBC WITH AUTO DIFFERENTIAL Routine 01/05/2025 12:36 PM EDT APTT Routine 01/05/2025 12:36 PM EDT PROTHROMBIN TIME-INR Routine 01/05/2025 12:36 PM EDT MAGNESIUM Routine 01/05/2025 12:36 PM EDT CREATINE KINASE, TOTAL Routine 01/05/2025 12:36 PM EDT HEPATIC FUNCTION PANEL Routine 01/05/2025 12:36 PM EDT BASIC METABOLIC PANEL Routine 01/05/2025 12:36 PM EDT documented in this encounter Results * Creatine Kinase, Total (01/05/2025 12:36 PM EDT) Creatine Kinase Total 52 38 - 174 U/L [facility] 01/05/2025 12:3 6 PM EDT 01/05/2025 12:45 PM EDT Generic External Data Provider LAB BLOOD ORDERAB LES Final Result Performing Organization Address [facility] de Phone Number [facility] [address] [place] [phone] * (ABNORMAL) Magnesium (01/05/2025 12:36 PM EDT) Magnesium 1.4(LL) 1.6 - 2.6 mg/dL [facility] Comment:Critical value for t est(s): MAGS Results called to linn back by: marisela Person calling:TACOS Date:01/05/25Time:1308 01/05/2025 12:3 6 PM EDT 01/05/2025 12:45 PM EDT [employer] External Data Provider LAB BLOOD ORDERAB LES Final Result Performing Organization Address [facility] de Phone Number [facility] [address] [place] [phone] * (ABNORMAL) Basic Metabolic Panel (01/05/2025 12:36 PM EDT) Sodium 127(L) 135 - 145 mmol/L [facility] Potassium 4.2 3.3 - 5.1 mmol/L [facility] Chloride 96 96 - 108 mmol/L [facility] Carbon Dioxide 22 22 - 29 mmol/L [facility] Anion Gap 13 12 - 20 [facility] Urea Nitrogen (BUN) 13 9 - 16 mg/dL [facility] Creatinine, Serum 0.66 0.5 - 1.4 mg/dL [facility] Creatinine Clr Calc Pharmacy 71.0 [facility] Comment:eGFR (calculated fro m the MDRD study equation) and eCrCl(calculated from the Cockcroft-Gault equation) are based ondifferent parameters and may not yield comparable results.If eCrCl result is absurd, please check patient'sheight/weight. Estimated Glomerular Filt Rate >60 [facility] Comment:Chronic Kidney Disea se: Estimated GFR < 60 mL/min/[id number] Kidney Disease: Estimated GFR < 15 mL/min/1.73m2 Glucose 140(H) 60 - 115 mg/dL [facility] Calcium 9.7 8.4 - 10.2 mg/dL [facility] 01/05/2025 12:3 6 PM EDT 01/05/2025 12:45 PM EDT Generic External Data Provider LAB BLOOD ORDERAB LES Final Result Performing Organization Address [facility] de Phone Number [facility] [address] [place] [phone] Hepatic Function Panel (01/05/2025 12:36 PM EDT) Bilirubin, Total 0.5 0.0 - 1.0 mg/dL [facility] Bilirubin, Direct 0.3 0.0 - 0.5 mg/dL [facility] Aspartate Amino Transferase 16 5 - 37 U/L [facility] Alanine Aminotransferase 8 0 - 40 U/L [facility] Total Protein 6.9 6.5 - 8.0 g/dL [facility] Albumin Level 4.3 3.5 - 5.0 g/dL [facility] Alkaline Phosphatase 91 39 - 117 U/L [facility] 01/05/2025 12:3 6 PM EDT 01/05/2025 12:45 PM EDT Generic External Data Provider LAB BLOOD ORDERAB LES Final Result Performing Organization Address [facility] Co de Phone Number [facility] [address] [place] [phone] * Partial Thromboplastin Time, Activated (APTT) (01/05/2025 12:36 PM EDT) Pathologist [facility] Partial Thromboplastin Time 33.1 26.0 - 36.8 SEC [facility] Comment:For information rega rding the monitoring of direct thrombininhibitors, please refer to Pharmacy. 01/05/2025 12:3 6 PM EDT 01/05/2025 12:45 PM EDT Generic External Data Provider LAB BLOOD ORDERAB LES Final Result Performing Organization Address [facility] Co de Phone Number [facility] [address] [place] [phone] * Prothrombin Time-INR (01/05/2025 12:36 PM EDT) [facility] Prothrombin Time 11.7 10.9 - 12.4 SEC [facility] INTERNATIONAL NORM RATIO 1.0 0.9 - 1.1 [facility] Comment:INTERNATIONAL NORMAL IZED RATIO (INR) REFERENCE RANGES Reference RangeFor patients not on anticoagulant therapy: 0.9 - 1.1INR ranges for oral anticoagulanttherapy:For prevention and treatment of venous thrombosis and pulmonary embolism: 2.0 - 3.0For acute myocardial infarction with aspirin therapy: 2.0 - 3.0For acute myocardial infarction without aspirin therapy: 3.0 - 4.0For patients with mechanical prosthetic heart valves: 2.5 - 3.5 01/05/2025 12:3 6 PM EDT 01/05/2025 12:45 PM EDT [employer] External Data Provider LAB BLOOD ORDERAB LES Final Result Performing Organization Address [facility] Co de Phone Number [facility] [address] [place] [phone] * (ABNORMAL) CBC auto differential (01/05/2025 12:36 PM EDT) Pathologist [facility] White Blood Count 7.4 4.8 - 10.8 X10*3/uL [facility] Red Blood Count 4.31(L) 4.60 - 5.80 X10*6/uL [facility] Hemoglobin 12.9(L) 14.0 - 18.0 g/dl [facility] Hematocrit 36.2(L) 42.0 - 52.0 % [facility] Mean Corpuscular Volume 84.0 80.0 - 98.0 fL [facility] Mean Corpuscular Hemoglobin 29.9 27.0 - 33.0 pg [facility] Mean Corpuscular HGB Conc 35.6 31.0 - 36.0 g/dl [facility] Red Cell Distribution Width 15.6 11.0 - 16.0 % [facility] Platelet Count 231 160 - 400 X10*3/uL [facility] Mean Platelet Volume 8.9(L) 9.4 - 12.4 fL [facility] Neutrophils Percent Auto 82.3(H) 45 - 73 % [facility] Imm Gran Pct Auto 0.7(H) 0.0 - 0.4 % [facility] Lymphocytes Percent Auto 9.2(L) 20 - 40 % [facility] Monocytes Percent Auto 7.0 2 - 11 % [facility] Eosinophils Percent Auto 0.4 0 - 4 % [facility] Basophils Percent Auto 0.4 0 - 2 % [facility] NRBC Pct Auto 0.0 0.0 - 0.2 /100WBC [facility] Neutrophils Absolute Auto 6.1 2.0 - 8.3 x10*3/uL [facility] Imm Gran Abs Auto 0.05(H) 0.00 - 0.03 X10*3/uL [facility] Lymphocytes Absolute Auto 0.7(L) 1.2 - 4.9 X10*3/uL [facility] Monocytes Absolute Auto 0.5 0.1 - 1.2 X10*3/uL [facility] Eosinophils Absolute Auto 0.0 0.0 - 0.4 X10*3/uL [facility] Basophils Absolute Auto 0.0 0.0 - 0.2 X10*3/uL [facility] NRBC Abs Auto 0.000 0.0 - 0.012 X10*3/uL [facility] 01/05/2025 12:3 6 PM EDT 01/05/2025 12:45 PM EDT us Generic External Data Provider LAB BLOOD ORDERAB LES Final Result [facility] [address] [place] [phone] documented in this encounter Visit Diagnoses Not on filedocumented in this encounter Additional Health Concerns Assessment Noted Time PHQ-9 Depression Total Score: 0 07/05/20 24 11:25 AM EST documented as of this encounter Care Teams Public Space Attendant Relationship Specialty Start Date End Date Abbi Saha FNP [address] [place] [phone] PCP - General Family Medicine 04/01/23 Noemi Felicia 05/08/24 documented as of this encounter
--- NOTE | 2025-01-05 13:48 | PC.NURSE ---
RENNY Lauren at bedside speaking with patient. Staff medical appliance maker called to bedside for Dutch translation services.
[2025-01-05 14:00] VITALS: BP 131/67; PULSE 80; RESP 17; TEMP 37.1; O2SAT 99
--- NOTE | 2025-01-05 14:12 | ECG_ITS ---
Test Reason : fall Blood Pressure : */* mmHG Vent. Rate : 72 BPM Atrial Rate : 72 BPM P-R Int : 148 ms QRS Dur : 128 ms QT Int : 378 ms P-R-T Axes : 102 -20 24 degrees QTcB Int : 413 ms Normal sinus rhythm Right bundle branch block Abnormal ECG When compared with ECG of 29-Apr-2024 07:04, No significant change was found Referred By: Tito Lauren Electronically Signed By: Sonido Sotelo
[2025-01-05 14:34] LABS: B Type Natriuretic Peptide 15 pg/mL (<100)
[2025-01-05 14:37] LABS: Troponin-I High Sensitivity < 2.7 ng/L (<3.5-35.0)
[2025-01-05] MEDS: Magnesium Sulfate/H2O 2 GM/50 ML PIGGYBACK IV (15:32)
[2025-01-05 15:35] LABS: MANUAL DIFF FLAG NO
[2025-01-05 15:37] LABS: Basophils Percent Auto 0.3 % (0-2); Eosinophils Absolute Auto 0.1 X10*3/uL (0.0-0.4); Eosinophils Percent Auto 1.4 % (0-4); Hematocrit 37.2 % (42.0-52.0); Hemoglobin 13.4 g/dl (14.0-18.0); Imm Gran Abs Auto 0.06 X10*3/uL (0.00-0.03); Imm Gran Pct Auto 0.6 % (0.0-0.4); Lymphocytes Absolute Auto 0.9 X10*3/uL (1.2-4.9); Lymphocytes Percent Auto 9.7 % (20-40); Mean Corpuscular Hemoglobin 30.1 pg (27.0-33.0); Mean Corpuscular Volume 83.6 fL (80.0-98.0); Mean Platelet Volume 8.9 fL (9.4-12.4); Monocytes Absolute Auto 0.7 X10*3/uL (0.1-1.2); Monocytes Percent Auto 7.4 % (2-11); Neutrophils Absolute Auto 7.6 x10*3/uL (2.0-8.3); Neutrophils Percent Auto 80.6 % (45-73); Platelet Count 242 X10*3/uL (160-400); Red Blood Count 4.45 X10*6/uL (4.60-5.80); Red Cell Distribution Width 15.7 % (11.0-16.0); White Blood Count 9.4 X10*3/uL (4.8-10.8)
--- NOTE | 2025-01-05 15:38 | ED.EXTPRO ---
HPI - Extremity Problem General Chief complaint: Extremity Problem Stated complaint: Right Leg Bruise, Fall two days ago Time Seen by Provider: 01/05/25 12:47 Source: patient and family ( granddaughter at bedside corroborating history) Mode of arrival: ambulatory Limitations: language barrier ( Czech-speaking) History of Present Illness ED Provider: Leonidas Francis PA-C Related Data Home Medications ?Medication ?Instructions ?Recorded ?Confirmed atorvastatin 10 mg tablet 10 mg PO DAILY 05/08/20 11/08/24 blood sugar diagnostic #10 ea 10/04/20 11/08/24 cholecalciferol (vitamin D3) 50 50 mcg PO DAILY 10/04/20 11/08/24 mcg (2,000 unit) capsule lancets 33 gauge #100 ea 10/04/20 11/08/24 metformin 1,000 mg tablet 1,000 mg PO BID 10/04/20 11/08/24 multivitamin 1 tab PO DAILY 10/04/20 11/08/24 dapagliflozin propanediol 10 mg 10 mg PO DAILY 10/09/21 11/08/24 tablet (Farxiga) sitagliptin phosphate 25 mg tablet 25 mg PO DAILY 05/04/23 11/08/24 (Januvia) losartan 25 mg tablet 25 mg PO BEDTIME 01/05/24 11/08/24 nifedipine 30 mg tablet,extended 30 mg PO BEDTIME 01/05/24 11/08/24 release acetaminophen 325 mg tablet 650 mg PO Q6H PRN Pain 04/29/24 11/08/24 omeprazole 20 mg capsule,delayed 20 mg PO BID@0630,1630 04/29/24 11/08/24 release psyllium husk 3.4 gram/5.4 gram 1 tsp PO DAILY 04/29/24 11/08/24 oral powder (Metamucil) Previous Rx's ?Medication ?Instructions ?Recorded walker #1 ea 04/30/20 sildenafil 100 mg tablet (Viagra) 100 mg PO DAILY PRN erectile 01/26/24 dysfunction 90 days #20 tabs terazosin 5 mg capsule 5 mg PO BEDTIME 90 days #90 caps 01/26/24 fluticasone propionate 50 1 spray intranasal BID #1 ea 10/27/24 mcg/actuation nasal spray,suspension [id number] 2 cap PO TID 30 days #180 caps 11/01/24 24,000-76,000-120,000 unit capsule,delayed rel (Creon) trazodone 50 mg tablet 50 mg PO BEDTIME #30 tabs 12/29/24 Allergies Allergy/AdvReac Type Severity Reaction Status Date / Time No Known Allergies (No Known Allergy Verified 01/05/25 12:30 Allergies*) [facility] Past Medical History Medical History (Updated 11/23/24 @ 16:44 by NISH Kaba) GERD (gastroesophageal reflux disease) Exocrine pancreatic insufficiency Abdominal bloating Renal cyst Loose stools History of revision of total replacement of right knee joint Lung mass High cholesterol Anemia Pleural hemorrhage Diverticulosis Hyponatremia Acute hyponatremia Colon cancer screening Erectile dysfunction Gastritis COVID-19 virus infection Hydrocele Cataract Hypercholesteremia Diabetes BPH (benign prostatic hyperplasia) Hypertension Surgical History (Updated 11/23/24 @ 16:44 by NISH Kaba) History of bilateral knee replacement Visit for wound check S/P chest tube placement Hx of colonoscopy History of prostate surgery Family History Family History Father Diabetes Mother Diabetes Uterus cancer Mother Cancer Social History Social History Household Members: Spouse Housing: Apartment Housing Other:: housing apartment Are you a primary health care coach to a significant other at home: No Do you presently have visiting nurse or other home services: No Alcohol intake: never Comment: camera placed as pt is impulsive, attempts to get OOB. Hx falls recently Patient Tobacco Use Status: Never used Tobacco Advance Directives: No Advance Directives Information Provided: Yes service: No Current occupational status: retired Current occupation: right handed Gender identity: Male Physical Exam Vital Signs: Vital Signs: Last Vital Signs Temp 98.8 F 01/05/25 14:00 Pulse 80 01/05/25 14:00 Resp 17 01/05/25 14:00 BP 131/67 01/05/25 14:00 Pulse Ox 99 01/05/25 14:00 O2 Del Method Room Air 01/05/25 14:00 BMI result Body Mass Index 21.9 Medications Administered Discontinued Medications Generic Name Dose Route Start Last Admin Trade Name Freq PRN Reason Stop Dose Admin Magnesium Sulfate 2 gm in 50 mls @ 150 mls/hr 01/05/25 14:00 01/05/25 15:32 Magnesium Sulfate/H2o IV 01/05/25 14:19 150 mls/hr ONCE ONE Administration Medical Decision Making Lab Data 01/05/25 15:29 01/05/25 12:36 Labs: Lab Results 01/05/25 01/05/25 01/05/25 Range/Units 12:36 15:29 15:30 WBC 7.4 9.4 (4.8-10.8) X10*3/uL RBC 4.31 L 4.45 L (4.60-5.80) X10*6/uL Hgb 12.9 L 13.4 L (14.0-18.0) g/dl Hct 36.2 L 37.2 L (42.0-52.0) % MCV 84.0 83.6 (80.0-98.0) fL MCH 29.9 30.1 (27.0-33.0) pg MCHC 35.6 36.0 (31.0-36.0) g/dl RDW 15.6 15.7 (11.0-16.0) % Plt Count 231 242 (160-400) X10*3/uL MPV 8.9 L 8.9 L (9.4-12.4) fL Immature Gran % (Auto) 0.7 H 0.6 H (0.0-0.4) % Neut % (Auto) 82.3 H 80.6 H (45-73) % Lymph % (Auto) 9.2 L 9.7 L (20-40) % Power % (Auto) 7.0 7.4 (2-11) % Eos % (Auto) 0.4 1.4 (0-4) % Baso % (Auto) 0.4 0.3 (0-2) % Lymph # (Auto) 0.7 L 0.9 L (1.2-4.9) X10*3/uL Power # (Auto) 0.5 0.7 (0.1-1.2) X10*3/uL Eos # (Auto) 0.0 0.1 (0.0-0.4) X10*3/uL Baso # (Auto) 0.0 0.0 (0.0-0.2) X10*3/uL Abs Immat Gran (auto) 0.05 H 0.06 H (0.00-0.03) X10*3/uL Absolute Neuts (auto) 6.1 7.6 (2.0-8.3) x10*3/uL Absolute Nucleated RBC 0.000 0.000 (0.0-0.012) X10*3/uL Nucleated RBC % (auto) 0.0 0.0 (0.0-0.2) /100WBC PT 11.7 (10.9-12.4) SEC INR 1.0 (0.9-1.1) APTT 33.1 (26.0-36.8) SEC Sodium 127 L (135-145) mmol/L Potassium 4.2 (3.3-5.1) mmol/L Chloride 96 (96-108) mmol/L Carbon Dioxide 22 (22-29) mmol/L Anion Gap 13 (12-20) BUN 13 (9-16) mg/dL Creatinine 0.66 (0.5-1.4) mg/dL Estim Creat Clear Calc 71.0 Estimated GFR > 60 Random Glucose 140 H (60-115) mg/dL Calcium 9.7 (8.4-10.2) mg/dL Magnesium 1.4 L* (1.6-2.6) mg/dL Total Bilirubin 0.5 (0.0-1.0) mg/dL Direct Bilirubin 0.3 (0.0-0.5) mg/dL AST 16 (5-37) U/L ALT 8 (0-40) U/L Alkaline Phosphatase 91 (39-117) U/L Total Creatine Kinase 52 (38-174) U/L Troponin I High Sens < 2.7 (<3.5-35.0) ng/L B-Natriuretic Peptide 15 (<100) pg/mL Total Protein 6.9 (6.5-8.0) g/dL Albumin 4.3 (3.5-5.0) g/dL Hold Yellow Top See Note Discharge Plan Discharge Prescriptions: No Action (DME) walker Misc See Rx Instructions .ROUTE .MEDSUPPLY Qty: 1 0RF Rx Instructions: Folding Front wheeled walker with seat Creon 24,000-76,000 -120,000 unit capsule,delayed release(DR/EC) 2 cap PO TID 30 Days Qty: 180 6RF Metamucil 3.4 gram/5.4 gram Powder 1 tsp PO DAILY Rx Instructions: mix into at least 4 oz water or juice before administering acetaminophen 325 mg Tablet 650 mg PO Q6H PRN (Reason: Pain) omeprazole 20 mg capsule,delayed release(/EC) 20 mg PO BID@0630,1630 fluticasone propionate 50 mcg/actuation [place],Suspension 1 spray INTRANASAL BID Qty: 1 1RF Rx Instructions: administer into each nostril trazodone 50 mg Tablet 50 mg PO BEDTIME Qty: 30 1RF cholecalciferol (vitamin D3) 50 mcg (2,000 unit) capsule 50 mcg PO DAILY metformin 1,000 mg tablet 1,000 mg PO BID multivitamin Tablet 1 tab PO DAILY (DME) lancets 33 gauge misc See Rx Instructions topical .MEDSUPPLY Qty: 100 Rx Instructions: As directed (DME) blood sugar diagnostic Strip See Rx Instructions Not Applicable BID Qty: 10 Rx Instructions: As directed atorvastatin 10 mg tablet 10 mg PO DAILY Farxiga 10 mg tablet 10 mg PO DAILY Januvia 25 mg tablet 25 mg PO DAILY terazosin 5 mg capsule 5 mg PO BEDTIME 90 Days Qty: 90 3RF sildenafil [Viagra] 100 mg tablet 100 mg PO DAILY PRN (Reason: erectile dysfunction) 90 Days Qty: 20 3RF Rx Instructions: administer 30 minutes to 4 hours before activity [facility] [id number] [facility] [id number] losartan 25 mg tablet 25 mg PO BEDTIME nifedipine 30 mg tablet extended release 30 mg PO BEDTIME Print Language: Czech
[2025-01-05] MEDS: Acetaminophen 1,000 MG/100 ML PIGGYBACK 400 MG IV (16:30)
[2025-01-05] MEDS: iohexoL 350 MG/ML 100 ML INFUS..BTL IV (17:19)
[2025-01-05 17:48] VITALS: BP 130/66; PULSE 88; RESP 16; O2SAT 99
--- NOTE | 2025-01-05 17:54 | PC.NURSE ---
pt is back from ct, currently resting comfortably.
[2025-01-05 18:00] VITALS: BP 130/70; PULSE 70; RESP 15; TEMP 36.7; O2SAT 100
[2025-01-05 18:09] LABS: Osmolality Urine 559 mosm/kg (373-1093)
[2025-01-05 19:08] VITALS: BP 130/70; PULSE 70; RESP 15; TEMP 36.7; O2SAT 100
== END 2025-01-05 19:08 | disposition home or self-care (01) ==
PROVIDERS: Physician Assistant; Emergency Provider Emergency Medicine; PCP Registered Nurse
DX: S70.11XA Contusion of right thigh, initial encounter (principal); M79.604 Pain in right leg; M25.552 Pain in left hip; M25.551 Pain in right hip; R51.9 Headache, unspecified; I10 Essential (primary) hypertension; E11.9 Type 2 diabetes mellitus without complications; I45.10 Unspecified right bundle-branch block; X58.XXXA Exposure to other specified factors, initial encounter; Y93.9 Activity, unspecified; Y92.9 Unspecified place or not applicable; Y99.8 Other external cause status; Z79.899 Other long term (current) drug therapy
CPT/HCPCS: 36415; 70450; 73521; 73552; 73706; 80048; 80076; 82550; 83735; 83880; 83935; 84300; 84484; 85025; 85610; 85730; 93005; 96365; 96375; 99284; J0131; J3475; Q9967

== ENCOUNTER → 2025-01-05 14:02 | Outpatient (BNV) | payer MEDICARE, SELFPAY | PROVIDERS: PCP Registered Nurse; Visit Provider Radiology Diagnostic Radiology | DX: R60.0 Localized edema (principal); I70.92 Chronic total occlusion of artery of the extremities; S09.90XA Unspecified injury of head, initial encounter; M25.551 Pain in right hip; M79.651 Pain in right thigh; M25.461 Effusion, right knee; I70.291 Other atherosclerosis of native arteries of extremities, right leg; Z96.651 Presence of right artificial knee joint; W19.XXXA Unspecified fall, initial encounter | CPT/HCPCS: 73521; 73552; 73706 ==

== ENCOUNTER → 2025-01-05 14:12 | Outpatient (BNV) | payer MEDICARE, SELFPAY | PROVIDERS: Emergency Provider Emergency Medicine; PCP Registered Nurse; Visit Provider Internal Medicine Cardiovascular Disease | DX: I45.10 Unspecified right bundle-branch block (principal) | CPT/HCPCS: 93010 ==

== ENCOUNTER 2025-01-22 10:16 | Outpatient (REF) | payer MEDICARE, SELFPAY ==
--- NOTE | ~2025-01-22 | CT_ITS ---
EXAMINATION: CT CHEST WITH CONTRAST CLINICAL INFORMATION: Restaging lung cancer DLP: 115 mGY*cm COMPARISON: 05/03/2024 TECHNIQUE: Multidetector volumetric CT imaging of the chest was obtained after the administration of 65 mL of Omnipaque 350 intravenous contrast without immediate adverse reactions. Axial MIP volume rendering provided. Sagittal and coronal reformatted images were obtained. This CT examination was performed using dose optimization techniques as appropriate, variously including the following: *Automated exposure control *Adjustment of mA and/or kV according to patient size (this includes techniques or standardized protocols for targeted exams where dose is matched to indication/reason for exam; i.e. extremities or head) *Use of iterative reconstruction technique FINDINGS: LUNGS: Linear scarring and cicatricial atelectasis is noted in the anterior medial left apex. In the medial apex, there is a nodule measured on sagittal series 9 image 45/114: 1.4 x 2.1 cm. Anterior margin of this nodular density was obscured on the prior examination by atelectasis. Groundglass and mild reticular changes are present in the posterior lower lobes. MEDIASTINUM: Right upper paratracheal lymph node has increased in short axis diameter from 5 mm, now 9 mm. The largest precarinal lymph node measures 9 mm short axis. 1 cm AP window lymph node is unchanged. Axial series 7 image 74/148: Left hilar lymph node measures 1.2 cm short axis, not as well demonstrated on the prior. PLEURA: Trace left pleural effusion has decreased since the prior. AXILLA: No lymphadenopathy. UPPER ABDOMEN: Unremarkable OSSEOUS STRUCTURES: Unremarkable. CT/CT chest w IV con IMPRESSION: Suspected 1.4 x 2.1 cm spiculated nodule in the medial left upper lobe was partially obscured on the prior examination. There is an enlarging borderline right upper paratracheal node and a suspected enlarged left hilar lymph node not clearly demonstrated on the prior. Stable AP window lymph node. Fleischner guidelines were followed. Electronically signed by: Peewee Booker MD 01/22/2025 01:35 PM EDT
--- OUTSIDE RECORDS SUMMARY | 2025-01-22 11:03 | XMS_ITS | Clinical Summary ---
Author Organization [facility] Address [address] [place] [address] Phone Care Team Providers Care Senior Software Project Manager Name Role Phone Maria A Abbi Primary Care Provider [phone] Allergies No known active allergies Medications Multiple [...] Encounters Date Type Department Care Team Description 11/24/2024 Documentation Only [facility] [address] [phone] Lashay Leone 11/22/2024 11:45 AM EDT Office Visit [facility] [address] [phone] Rosanna Zamudio ARNP Hypertensive disorder (Primary Dx); [...] Care Team (Late st Contact Info) Description 11/22/2025 11:00 AM EDT Office Visit [facility] [address] [phone] Rosanna Zamudio ARNP [address] [phone] Health Maintenance Due Date Last Done Comments Diabetes: Ophthalmology Exam 11/11/2022 Diabetes: Pedal Pulse Checked 11/11/2022 Diabetes: Sensory Foot Exam 11/11/2022 Diabetes: Visual Foot Exam 11/11/2022 Diabetes: Hemoglobin A1C 01/24/2025 025, 10/22/2023, 09/11/2022 Influenza Vaccine (#1) 2025 4, 05/22/2019, 06/15/2018, Additional history exists Pneumococcal Vaccine: 50+ Years Completed 05/22/2019, 05/14/2015 Pneumococcal Vaccine: Peds (0 to 5 Years) and At-Risk Patients (6 to 49 Years) Discontinued 05/22/2019, 05/14/2015 Hepatitis B Vaccine Aged Out No longe r eligible based on patient's age to complete this topic Procedures Procedure Name Priority Date/Time Associated Diagnosis Comments EXT RESULT ENTRY Routine 11/23/2024 EXT RESULT ENTRY Routine 11/17/2024 from Last 3 Months Results * (ABNORMAL) EXT RESULT ENTRY (11/23/2024) Only the most recent of2 resultswithin the time period is included. Sodium 134(A) 137 - 147 Potassium 4.7 3.4 - 5.5 Carbon Dioxide 2 mmol/L Anion Gap 14 <=30 MMOL/L BUN 17 4 - 21 mg/dL Creatinine 0.74 0.60 - 1.30 mg/dL Calcium 10.0 8.7 - 10.7 mg/dL eGFR Non-Afr [facility] >60 11/23/2024 us Historical Provider LAB BLOOD ORDERABLES Kaylin l Result from Last 3 Months Insurance [facility] Medicare Medicaid [place] Care Teams Senior Software Project Manager Relationship Specialty Start Date End Date [facility] [address] [place] [address] PCP - General 11/22/24
--- OUTSIDE RECORDS SUMMARY | 2025-01-22 11:03 | XMS_ITS | Clinical Summary ---
Author Organization [employer] Address [address] [place] [address] Care Team Providers Care Chairman Emeritus Name Role Phone Abbi Saha GLASS OR MIRROR INSPECTOR Primary Care Provider [phone] Allergies No known active allergies Medications Diclofenac Sodium 1 % gel Apply 2 g topically every 6 (six) hours. 06/06/20 21 Active Lidocaine 4 % patch Apply to the affected area up to 3 times daily as needed Active sildenafil (Viagra) 100 MG tablet Take 1 tablet by mouth at bed time. Active Blood Glucose Monitoring Suppl ([employer] Verio) w/Device kitIndications: Type 2 diabetes mellitus without complication, without long-term current use of insulin ([facility]) 1 kit before breakfast and before evening [...] hyperglycemia, without long-term current use of insulin ([facility]) Take 5.12 g (3 g of fiber) by mouth Once per day. 283 g 11 02/25/20 24 025 Active atorvastatin (Lipitor) 10 MG tablet TAKE 1 TABLET BY MOUTH EVERY EVENING 90 tablet 2 04/19/20 24 Active oxyCODONE (Roxicodone) 5 MG immediate release tablet 5 mg. 05/06/20 24 Active Creon 51894-40678 units capsule 2 capsules. 04/19/20 24 Active glucose blood (OneTouch Verio) test strip TEST BLOOD SUGAR TWICE A DAY 100 each 11 08/21/19 25 Active Multiple Vitamin (Multivitamin) tabletIndicatio ns:Type 2 diabetes mellitus with hyperglycemia, without long-term current use of insulin ([facility]) TAKE 1 TABLET BY MOUTH EVERY EVENING WITH FOOD 90 tablet 3 08/23/19 25 Active metFORMIN (Glucophage) 1000 MG tabletIndicatio ns:Type 2 diabetes mellitus with hyperglycemia, without long-term current use of insulin ([facility]) Take 1 tablet (1,000 mg) by mouth with breakfast and with evening meal. 60 tablet 11 09/08/19 25 026 Active SITagliptin (Januvia) 25 MG tabletIndicatio ns:Type 2 diabetes mellitus with hyperglycemia, without long-term current use of insulin ([facility]) Take 1 tablet (25 mg) by mouth Once per day. 30 tablet 11 09/08/19 25 026 Active Lancets (OneTouch Delica Plus [id number]) miscIndications :Elevated blood sugar TEST BLOOD SUGAR TWICE DAILY 100 each 11 10/07/19 25 Active omeprazole (PriLOSEC) [address] capsuleIndicati ons:Dyspepsia TAKE 1 CAPSULE BY MOUTH TWICE DAILY 60 capsule 2 10/31/19 25 Active mirtazapine (Remeron) 7.5 MG tabletIndicatio ns:Other insomnia Take 1 tablet (7.5 mg) by mouth at bedtime. 30 tablet 1 12/16/19 25 Active Farxiga 10 MGIndications:T ype 2 diabetes mellitus with other specified complication, unspecified whether computer terminal operator insulin use ([facility]) TAKE 1 TABLET BY MOUTH EVERY MORNING 90 tablet 1 12/30/19 25 Active Farxiga 10 MGIndications:T ype 2 diabetes mellitus with other specified complication, unspecified whether computer terminal operator insulin use (CMS/[facility]) TAKE 1 TABLET BY MOUTH EVERY MORNING 90 tablet 1 06/14/20 025 Discontinued Active Problems Problem Noted Date Diagnosed Date Primary malignant neoplasm o f left lung metastatic to other site 07/05/2024 Overview (07/05/2024): New dx of metastatic NSCLC 04/2024.-- Presented to [facility] w1 with acute SOB. CT chest [...] of metastatic disease. PET-CT performed 05/30/24 at [facility] showed FDG avid loculated left-sided pleural [...] deformity 12/29/2023 Mixed hyperlipidemia 10/25/2022 Overview (10/25/2022): Atorvastatin 10mg Lower urinary tract symptoms (LUTS) 10/25/2022 Overview (10/25/2022): Followed by urology Sensorineural hearing loss (SNHL) of both ears 0 10/25/2022 Overview (05/19/2023): 10/2022-audiology with severe bilateral sensorineural hearing loss Assessment & Plan (05/19/2023 11:09 AM EDT): Follow up as scheduled with ENT for hear aid clearance Abnormality of gait and mobility 10/25/2022 Overview (10/25/2022): S/t congenital foot deformity Assessment & Plan (05/19/2023 11:08 AM EDT): Referral to PT for gait instability Healthcare maintenance 10/16/2022 Overview (10/25/2022): Healthcare Maintenance: C-scope: [facility] 2021, needs records PSA: Per urology HCV Screen: Neg 09/10 HIV Screen: Neg 09/10 Immunizations: UTD Weight loss 09/17/2022 Diabetes 09/11/2022 Overview (02/25/2024): Farxiga 10mg daily Metformin 1000mg b.i.d Januvia 25 mg daily Foot Exam: Risk 0; followed by podiatry ([place]) Eye Exam: [facility] Eye care Statin: Yes ASA: No BLOSSOM/ARB: [...] (A) 04/30/2023 Well controlled Continue current regimen Referral to podiatry for ongoing toe deformity ([place]) Assessment & Plan (05/19/2023 11:07 AM EDT): Lab Results Component Value Date HGBA1C 7.3 (A) 04/30/2023 Well controlled Continue current regimen Repeat labs today Has upcoming appointment for [facility] eye care Assessment & Plan (10/25/2022 1:09 PM EDT): Continue current regimen Repeat A1c at follow up Anemia 09/11/2022 Hyponatremia 03/04/2021 Overview (10/25/2022): Followed by nephrology for hyponatremia-last seen06/2022; dx hyponatremia during 2019 knee surgery (128). HCTZ was stopped at this time. Assessment & Plan (05/19/2023 11:06 AM EDT): Stable Follow as scheduled with nephrology Other chronic pain 10/07/2017 Overview (05/19/2023): Persistent chronic pain in knees, back, hips S/p bilateral knee replacement On tramadol 50mg q. 8 hours Assessment & Plan (05/19/2023 11:14 AM EDT): Compliant with AUTOMOTIVE SERVICE ASSISTANT agreement Only using tramadol 1x/week due to concern re addiction Advised patient OK to take tramadol at bedtime nightly if pain interfering with sleep Continue acetaminophen PRN during day Continue lidocaine patch Continue topical diclofenac gel Continue acupuncture PT referral for general gait instability Assessment & Plan (10/25/2022 1:09 PM EDT): Will refer to AUTOMOTIVE SERVICE ASSISTANT RN Hypertensive disorder 04/12/2017 Overview (02/25/2024): Losartan [...] Encounters Date Type Department Care Team Description 01/21/2025 Refill [facility] [place] [address] Abbi Saha FNP Dyspepsia 01/11/2025 Telephone [facility] WALK-IN C[facility] [address] [place] [address] Abbi Saha FNP sept recall 01/05/2025 Orders Only GENERIC EXTERNAL DATA DEPARTMENT Provider, Generic External Data 12/28/2024 Refill [facility] MOBILE VACCINE CLINIC [facility] [place] [address] Abbi Saha FNP Type 2 diabetes mellitus with other specified complication, unspecified whether computer terminal operator insulin use ([facility]) 12/18/2024 Telephone [facility] [address] [place] [address] Gaby Santamaria, RN hearing aids 12/15/2024 1:30 PM EDT Telemedicine [facility] [place] [address] Abbi Saha FNP Other insomnia (Primary Dx) 12/15/2024 Travel 12/14/2024 Telephone [facility] [place] [address] Abbi Saha FNP chart prep 11/16/2024 Telephone [facility] [address] [place] [address] Abbi Saha FNP Pcp's message 11/02/2024 Telephone [facility] [place] [address] Abbi Saha FNP Durable Medical Equipment ([employer] Form: Transparent Film ) 10/29/2024 Refill [facility] [place] [address] Abbi Saha FNP Dyspepsia 10/25/2024 9:15 AM EDT Office Visit [facility] [place] [address] [facility] Type 2 diabetes mellitus with hyperglycemia, without long-term current use of insulin ([facility]) (Primary Dx); Acute cough; Sensorineural hearing loss (SNHL) of both ears; Dietary counseling; Exercise counseling 10/25/2024 Travel 10/24/2024 Telephone [facility] MEDICINE [address] [place] [address] [facility] chart prep from Last 3 Months Immunizations Immunization Administration Dates Next Due Influenza High-dose Quadriva [...] 82 10/25/2024 9:22 AM EDT Temperature 37 C (98.6 F) 10/25/2024 9:22 AM EDT Respiratory Rate 20 [...] Care Team (Late st Contact Info) Description 01/30/2025 10:45 AM EDT Office Visit [facility] MEDICINE [address] [place] [address] Swati Kan MD [address] [place] [address] 03/23/2025 11:15 AM EDT Office Visit [facility] MEDICINE [address] [place] [address] Abbi Saha, GLASS OR MIRROR INSPECTOR [address] [place], [place] [phone] 04/10/2025 10:00 AM EDT Office Visit [facility] ADULT DENTAL [address] [place], [place] [phone] Amber Conteh Health Maintenance Due Date Last Done Comments Alcohol/Substance Use Screening 1957 RSV Patients and Patients Aged 60 years or older (1 - 1-dose 75+ series) 2021 Diabetes: Urine Protein Screening 05/03/2024 05/03/2023, 01/06/2022, 01/30/2020 Lipid Panel 05/03/2024 05/03/2023, 08/20, 01/06/2022, Additional history exists SDOH Screening 10/13/2024 10/14/2023 COVID-19 Vaccine ( season) 2024 05/15/2024, 04/23/2023, 04/28/2022, Additional history exists Influenza Vaccine (#1) 2025 , 04/09/2023, 04/17/2022, Additional history exists Dental Oral Exam 03/30/2025 09/26/2024, 09/25/2016 Dental Prophylaxis 03/30/2025 09/26/2024, 0 02/17/2024, 01/28/2022, Additional history exists Diabetes: Hemoglobin A1C 04/26/2025 025, 07/05/2024, 02/25/2024, Additional history exists Depression Screening 07/05/2025 07/05/2024, 07/05/20 Eye Exam 07/19/2025 07/19/2023 Dental X-Ray: Bitewings 09/27/2025 09/27/19 25, 02/17/2024, 11/26/2023, Additional history exists Diabetes: Foot Exam 10/25/2025 10/25/2024, 10/25/2024, 07/02/2023, Additional history exists Tobacco Screening 12/17/2025 12/17/2024 Dental X-Ray: Full Mouth 09/28/2027 09/26/2024, 09/16 DTaP/Tdap/Td Vaccines (3 - Td or Tdap) 10/16/2032 10/16/2022, 05/07/2015 Pneumococcal Vaccine: 50+ Years Completed 05/22/2019, 05/14/2015 Zoster Vaccines Completed 07/08/2020, 04/19, 01/10/2018 Hepatitis C Screening Completed 09/11/2022 HIB Vaccines Aged Out No longer eligi [...] Procedure Name Priority Date/Time Associated Diagnosis Comments CTA LOWER EXTREMITY W AND WO CONTRAST RIGHT Routine 01/05/2025 6:06 PM EDT OSMOLALITY (U) Routine 01/05/2025 5:29 PM EDT SODIUM W/O CREATININE, RANDOM URINE Routine 01/05/2025 5:29 PM EDT SST GOLD TOP TO HOLD Routine 01/05/2025 3:30 PM EDT CBC WITH AUTO DIFFERENTIAL Routine 01/05/2025 3:29 PM EDT XR HIP BILATERAL WITH PELVIS 1 VIEW Routine 01/05/2025 2:[address] HEAD WO CONTRAST Routine 01/05/2025 1 :45 PM EDT XR FEMUR 2+ VIEWS RIGHT Routine 01/05/2025 1:29 PM EDT HIGH SENSITIVITY TROPONIN I Routine 01/05/2025 12:36 PM EDT B TYPE NATRIURETIC PEPTIDE (BNP) Routine 01/05/2025 12:36 PM EDT CREATINE KINASE, TOTAL Routine 01/05/2025 12:36 PM EDT MAGNESIUM Routine 01/05/2025 12:36 PM EDT BASIC METABOLIC PANEL Routine 01/05/2025 12:36 PM EDT HEPATIC FUNCTION PANEL Routine 01/05/2025 12:36 PM EDT APTT Routine 01/05/2025 12:36 PM EDT PROTHROMBIN TIME-INR Routine 01/05/2025 12:36 PM EDT CBC WITH AUTO DIFFERENTIAL Routine 01/05/2025 12:36 PM EDT AMB REFERRAL TO AUDIOLOGY Routine 11/14/2024 Sensorineural hearing loss (SNHL) of both ears XR CHEST 2 VIEWS Routine 10/25/2024 10:1 3 AM EDT Acute cough POCT GLYCATED HEMOGLOBIN, TOTAL Routine 10/25/2024 9:24 AM EDT Type 2 diabetes mellitus with hyperglycemia, without long-term current use of insulin (CMS/HCC) POCT GLUCOSE Routine 10/25/2024 9:23 AM EDT Type 2 diabetes mellitus with hyperglycemia, without long-term current use of insulin (CMS/HCC) PROPHYLAXIS - ADULT Routine 09/26/2024 1 :00 PM EDT Dental plaque Dental calculus INTRAORAL - COMPLETE SERIES OF RADIOGRAPHIC IMAGES Routine 09/26/2024 1:00 PM EDT PERIODIC ORAL EVALUATION - ESTABLISHED PATIENT Routine 09/26/2024 1:00 PM EDT Dental plaque Dental calculus Encounter for dental examination Dental caries Periodontal disease ALBUMIN, RANDOM URINE W/CREATININE Routine 05/03/2023 8:36 [...] Recently Relevant to Health Maintenance Results * CTA Lower Extremity w/ and w/o Contrast Right (01/05/2025 6:06 PM EDT) Anatomical Region Laterality Modality Lower Extremities Right Computed Tomog ewa 01/05/2025 6:06 PM EDT Narrative 01/05/2025 6:07 PM EDT [place] [address] CT Scan Report Signed Patient: Lei Drew MR#: [id number] : 1945 Acct:[id number] Age/Sex: 79 / M ADM Date: 01/05/25 Loc: .ED Attending Dr: Ordering Physician: Tito Lauren PA-C Date of Service: 01/05/25 Procedure(s): CT angio LE RT Accession Number(s): [id number] cc: Tito Lauren PA-C; [employer] Report Number: [id number]: Total DLP = 0.00 mGy-cm CLINICAL HISTORY: hematoma CTA angio right leg with bolus contrast injection and 3D reconstructions: Comparison: None. Findings: Soft tissues in the right pelvis are unremarkable. There is superficial fascia edema and swelling involving medial and posterior right thigh. No focal organized abscess or seroma. The right external and internal iliac arteries are normal. Right common femoral and profunda arteries are normal. The superior right popliteal artery, geniculate, and soleal artery branches are perfused. The middle and inferior portions of the right popliteal artery are obscured by beam hardening artifact from right knee arthroplasty. The below-knee trifurcation and proximal deep arteries of the right calf are partially obscured due to arthroplasty metal artifact. Calcified atherosclerotic plaque is present in the proximal anterior tibial artery Images of the right calf and inferior right lower leg are not included. Impression: 1. The arteries of the right upper leg are normal without stenosis. 2. Popliteal artery and trifurcation right calf deep arteries are obscured by metal artifact from right knee arthroplasty. Consider ultrasound and/or ankle-brachial indices for definitive diagnostic information. 3. Medial posterior right thigh superficial fascia gravity dependent fluid. Cannot exclude exudate of pre abscess formation. Correlate clinical exam for cellulitis in this location. This document has been electronically signed by: Phi Garcia MD on 01/05/2025 18:06:24 Dictated By: Phi Garcia MD Signed By: <Electronically signed by Phi Garcia MD in OV> 01/05/25 180 DD/ 05 TD/TT: 01/05/251805 Flatwork Assembler: Procedure Note Donotuseinterpreter, Image - 01/05/[address] [place] [address] [address] Scan Report Signed Patient: Scottie Drew#: [id number] : 6Acct:[id number] Age/Sex: 79 / MADM Date: 01/05/25 Loc: .ED Attending Dr: Ordering Physician: Tito Lauren PA-C Date of Service: 01/05/25 Procedure(s): CT angio LE RT Accession Number(s): [id number] cc: Tito Lauren PA-C; [employer] Report Number: [id number]: Total DLP = 0.00 mGy-cm CLINICAL HISTORY: hematoma CTA angio right leg with bolus contrast injection and 3D reconstructions: Comparison: None. Findings: Soft tissues in the right pelvis are unremarkable. There is superficial fascia edema and swelling involving medial and posterior right thigh. No focal organized abscess or seroma. The right external and internal iliac arteries are normal. Right common femoral and profunda arteries are normal. The superior right popliteal artery, geniculate, and soleal artery branches are perfused. The middle and inferior portions of the right popliteal artery are obscured by beam hardening artifact from right knee arthroplasty. The below-knee trifurcation and proximal deep arteries of the right calf are partially obscured due to arthroplasty metal artifact. Calcified atherosclerotic plaque is present in the proximal anterior tibial artery Images of the right calf and inferior right lower leg are not included. Impression: 1. The arteries of the right upper leg are normal without stenosis. 2. Popliteal artery and trifurcation right calf deep arteries are obscured by metal artifact from right knee arthroplasty. Consider ultrasound and/or ankle-brachial indices for definitive diagnostic information. 3. Medial posterior right thigh superficial fascia gravity dependent fluid. Cannot exclude exudate of pre abscess formation. Correlate clinical exam for cellulitis in this location. This document has been electronically signed by: Phi Garcia MD on 01/05/2025 18:06:24 Dictated By: Phi Garcia MD Signed By: <Electronically signed by Phi Garcia MD in OV> 01/05/251805 DD/ 05 TD/TT: 01/05/251805 Flatwork Assembler: [facility] External Provider IMG CT PROCEDURES Final Result * Sodium Without creatinine, Random Urine (01/05/2025 5:29 PM EDT) Sodium Urine Random 32.0 mmol/L [facility] 01/05/2025 5:29 PM EDT 01/05/2025 5:42 PM EDT Generic External Data Provider LAB BLOOD ORDERAB LES Final Result [facility] [address] [place] [address] [phone] * Osmolality, Urine (01/05/2025 5:29 PM EDT) OSMOLALITY URINE 559 373 - 1,093 mosm/kg [facility] 01/05/2025 5:29 PM EDT 01/05/2025 5:42 PM EDT Generic External Data Provider LAB URINE ORDERAB LES Final Result Performing Organization Address [facility]/ZIP Co de Phone Number [facility] [address] [place] [address] [phone] * SST GOLD TOP TO HOLD (01/05/2025 3:30 PM EDT) Hold Gold See Note [facility] Comment:Specimen held untest ed for 24 hours; Call to requestChemistry testing. 01/05/2025 3:30 PM EDT 01/05/2025 3:33 PM EDT Generic External Data Provider LAB BLOOD ORDERAB LES Final Result Performing Organization Address [facility] Co de Phone Number [facility] [address] [place] [address] [phone] * (ABNORMAL) CBC auto differential (01/05/2025 3:29 PM EDT) Only the most recent of2 resultswithin the time period is included. [facility] White Blood Count 9.4 4.8 - 10.8 X10*3/uL [facility] Red Blood Count 4.45(L) 4.60 - 5.80 X10*6/uL [facility] Hemoglobin 13.4(L) 14.0 - 18.0 g/dl [facility] Hematocrit 37.2(L) 42.0 - 52.0 % [facility] Mean Corpuscular Volume 83.6 80.0 - 98.0 fL [facility] Mean Corpuscular Hemoglobin 30.1 27.0 - 33.0 pg [facility] Mean Corpuscular HGB Conc 36.0 31.0 - 36.0 g/dl [facility] Red Cell Distribution Width 15.7 11.0 - 16.0 % [facility] Platelet Count 242 160 - 400 X10*3/uL [facility] Mean Platelet Volume 8.9(L) 9.4 - 12.4 fL [facility] Neutrophils Percent Auto 80.6(H) 45 - 73 % [facility] Imm Gran Pct Auto 0.6(H) 0.0 - 0.4 % [facility] Lymphocytes Percent Auto 9.7(L) 20 - 40 % [facility] Monocytes Percent Auto 7.4 2 - 11 % [facility] Eosinophils Percent Auto 1.4 0 - 4 % [facility] Basophils Percent Auto 0.3 0 - 2 % [facility] NRBC Pct Auto 0.0 0.0 - 0.2 /100WBC [facility] Neutrophils Absolute Auto 7.6 2.0 - 8.3 x10*3/uL [facility] Imm Gran Abs Auto 0.06(H) 0.00 - 0.03 X10*3/uL [facility] Lymphocytes Absolute Auto 0.9(L) 1.2 - 4.9 X10*3/uL [facility] Monocytes Absolute Auto 0.7 0.1 - 1.2 X10*3/uL [facility] Eosinophils Absolute Auto 0.1 0.0 - 0.4 X10*3/uL [facility] Basophils Absolute Auto 0.0 0.0 - 0.2 X10*3/uL [facility] NRBC Abs Auto 0.000 0.0 - 0.012 X10*3/uL [facility] 01/05/2025 3:29 PM EDT 01/05/2025 3:33 PM EDT us Generic External Data Provider LAB BLOOD ORDERAB LES Final Result [facility] [address] [place] [address] [phone] * XR Hips Bilateral with Pelvis 1 view (01/05/2025 2:30 PM EDT) Anatomical Region Laterality Modality Lower Extremities, Hip Bilateral Radiograp hic Imaging 01/05/2025 2:30 PM EDT Narrative 01/05/2025 3:01 PM EDT [address] [address] XRay Report Signed Patient: Lei Drew MR#: [id number] : 1945 Acct:[id number] Age/Sex: 79 / M ADM Date: 01/05/25 Loc: HO.ED Attending Dr: Ordering Physician: Tito Lauren PA-C Date of Service: 01/05/25 Procedure(s): XR hip BI w PEL1V Accession Number(s): [id number] cc: Tito Lauren PA-C; [employer] EXAMINATION: XR BILATERAL HIPS WITH AP PELVIS CLINICAL INFORMATION: fall/hematoma COMPARISON: None available. TECHNIQUE: AP view of the pelvis and 2 views of each hip were obtained. FINDINGS: Normal bone mineralization. No fracture, dislocation, or suspicious bone lesion. Normal alignment. Mild degenerative changes in both hip joints. The sacrum is intact. There are mild degenerative changes in both SI joints. There are advanced degenerative changes in the lower lumbar spine. Soft tissues demonstrate vascular calcifications. XR/XR hip BI w PEL1V IMPRESSION: 1. No definite fracture or dislocation. Electronically signed by: David Gilliam MD 01/05/2025 02:58 PM EDT Dictated By: David Gilliam MD Signed By: <Electronically signed by David Gilliam MD in OV> 01/05/25 1458 DD/ 1430 TD/TT: 01/05/25 1442 Flatwork Assembler: Procedure Note Donotuseinterpreter, Image - 01/05/[address] [address] XRay Report Signed Patient: Jacqui DrewR#: [id number] : 1945cct:[id number] Age/Sex: 79 / MADM Date: 01/05/25 Loc: HO.ED Attending Dr: Ordering Physician: Tito Lauren PA-C Date of Service: 01/05/25 Procedure(s): XR hip BI w PEL1V Accession Number(s): [id number] cc: Tito Lauren PA-C; [employer] EXAMINATION: XR BILATERAL HIPS WITH AP PELVIS CLINICAL INFORMATION: fall/hematoma COMPARISON: None available. TECHNIQUE: AP view of the pelvis and 2 views of each hip were obtained. FINDINGS: Normal bone mineralization. No fracture, dislocation, or suspicious bone lesion. Normal alignment. Mild degenerative changes in both hip joints. The sacrum is intact. There are mild degenerative changes in both SI joints. There are advanced degenerative changes in the lower lumbar spine. Soft tissues demonstrate vascular calcifications. XR/XR hip BI w PEL1V IMPRESSION: 1. No definite fracture or dislocation. Electronically signed by: David Gilliam MD 01/05/2025 02:58 PM EDT Dictated By: David Gilliam MD Signed By: <Electronically signed by David Gilliam MD in OV> 01/05/25 1458 DD/ 1430 TD/TT: 01/05/25 1442 Flatwork Assembler: [facility] External Provider IMG XR PROCEDURES Final Result * CT Head w/o Contrast (01/05/2025 1:45 PM EDT) Anatomical Region Laterality Modality Head, Neck Computed Tomogra phy 01/05/2025 1:45 PM EDT Narrative 01/05/2025 3:05 PM EDT [place] [address] CT Scan Report Signed Patient: Lei Drew MR#: [id number] : 1945 Acct:[id number] Age/Sex: 79 / M ADM Date: 01/05/25 Loc: HO.ED Attending Dr: Ordering Physician: Tito Lauren PA-C Date of Service: 01/05/25 Procedure(s): CT head/brain wo IV con Accession Number(s): [id number] cc: Tito Lauren PA-C; [employer] Report Number: [id number]: Total DLP = 642.00 mGy-cm EXAMINATION: CT HEAD WITHOUT CONTRAST CLINICAL INFORMATION: Fall COMPARISON: None available. TECHNIQUE: Contiguous axial imaging was performed from the skull base to vertex without intravenous administration of contrast. This CT examination was performed using dose optimization techniques as appropriate, variously including the following: *Automated exposure control *Adjustment of mA and/or kV according to patient size (this includes techniques or standardized protocols for targeted exams where dose is matched to indication/reason for exam; i.e. extremities or head) *Use of iterative reconstruction technique DLP: 642 mGY*cm FINDINGS: There is no acute ischemic change. There is no intracranial hemorrhage. There is no mass-effect or midline shift. Basal cisterns and ventricles are within normal limits for age/cerebral volume. Orbits are symmetrical and unremarkable. Trace mucosal thickening is present in the posterior right maxillary sinus. There are no bony abnormalities. CT/CT head/brain wo IV con IMPRESSION: No acute intracranial abnormality. Trace mucosal thickening in the right maxillary sinus. Electronically signed by: Peewee Booker MD 01/05/2025 03:03 PM EDT RP Dictated By: Peewee Booker MD Signed By: <Electronically signed by Peewee Booker MD in OV> 01/05/25 1503 DD/ 1345 TD/TT: 01/05/25 1450 Flatwork Assembler: Procedure Note Donotuseinterpreter, Image - 01/05/[address] [address] [address] Scan Report Signed Patient: Scottie Drew#: [id number] : 1945cct:[id number] Age/Sex: 79 / MADM Date: 01/05/25 Loc: HO.ED Attending Dr: Ordering Physician: Tito Lauren PA-C Date of Service: 01/05/25 Procedure(s): CT head/brain wo IV con Accession Number(s): [id number] cc: Tito Lauren PA-C; [facility] Report Number: [id number]: Total DLP = 642.00 mGy-cm EXAMINATION: CT HEAD WITHOUT CONTRAST CLINICAL INFORMATION: Fall COMPARISON: None available. TECHNIQUE: Contiguous axial imaging was performed from the skull base to vertex without intravenous administration of contrast. This CT examination was performed using dose optimization techniques as appropriate, variously including the following: *Automated exposure control *Adjustment of mA and/or kV according to patient size (this includes techniques or standardized protocols for targeted exams where dose is matched to indication/reason for exam; i.e. extremities or head) *Use of iterative reconstruction technique DLP: 642 mGY*cm FINDINGS: There is no acute ischemic change. There is no intracranial hemorrhage. There is no mass-effect or midline shift. Basal cisterns and ventricles are within normal limits for age/cerebral volume. Orbits are symmetrical and unremarkable. Trace mucosal thickening is present in the posterior right maxillary sinus. There are no bony abnormalities. CT/CT head/brain wo IV con IMPRESSION: No acute intracranial abnormality. Trace mucosal thickening in the right maxillary sinus. Electronically signed by: Peewee Booker MD 01/05/2025 03:03 PM EDT Dictated By: Peewee Booker MD Signed By: <Electronically signed by Peewee Booker MD in OV> 01/05/25 1503 DD/ 1345 TD/TT: 01/05/25 1450 Flatwork Assembler: [facility] External Provider IMG CT PROCEDURES Final Result * XR Femur 2+ Views Right (01/05/2025 1:29 PM EDT) Anatomical Region Laterality Modality Lower Extremities, Femur Right Radiogr aphic Imaging 01/05/2025 1:29 PM EDT Narrative 01/05/2025 2:59 PM EDT [address] [address] XRay Report Signed Patient: Lei Drew MR#: [id number] : 1945 Acct:[id number] Age/Sex: 79 / M ADM Date: 01/05/25 Loc: HO.ED Attending Dr: Ordering Physician: Tito Lauren PA-C Date of Service: 01/05/25 Procedure(s): XR femur RT 2V Accession Number(s): [id number] cc: Tito Lauren PA-C; [employer] EXAMINATION: XR FEMUR, RIGHT CLINICAL INFORMATION: fall/hematoma COMPARISON: None available. TECHNIQUE: AP and lateral views of the right femur were obtained. FINDINGS: No fracture, dislocation, or suspicious bone lesion. Total right knee arthroplasty without complication. There is a moderate size joint effusion. There are vascular calcifications in the soft tissues. XR/XR femur RT 2V IMPRESSION: 1. No acute fracture or dislocation. 2. Total right knee arthroplasty. No complication evident. 3. Moderate sized suprapatellar joint effusion. 4. Vascular calcifications. Electronically signed by: David Gilliam MD 01/05/2025 02:57 PM EDT Dictated By: David Gilliam MD Signed By: <Electronically signed by David Gilliam MD in OV> 01/05/25 1457 DD/ 1329 TD/TT: 01/05/25 1442 Flatwork Assembler: Procedure Note Donotuseinterpreter, Image - 01/05/2025 [place] [address] XRay Report Signed Patient: Scottie Drew#: [id number] : 1945cct:[id number] Age/Sex: 79 / MADM Date: 01/05/25 Loc: HO.ED Attending Dr: Ordering Physician: Tito Lauren PA-C Date of Service: 01/05/25 Procedure(s): XR femur RT 2V Accession Number(s): [id number] cc: Tito Lauren PA-C; [facility] 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 TECHNIQUE: AP and lateral views of the right femur were obtained. FINDINGS: No fracture, dislocation, or suspicious bone lesion. Total right knee arthroplasty without complication. There is a moderate size joint effusion. There are vascular calcifications in the soft tissues. XR/XR femur RT 2V IMPRESSION: 1. No acute fracture or dislocation. 2. Total right knee arthroplasty. No complication evident. 3. Moderate sized suprapatellar joint effusion. 4. Vascular calcifications. Electronically signed by: David Gilliam MD 01/05/2025 02:57 PM EDT Dictated By: David Gilliam MD Signed By: <Electronically signed by David Gilliam MD in OV> 01/05/25 1457 DD/ 1329 TD/TT: 01/05/25 1442 Flatwork Assembler: [facility] External Provider IMG XR PROCEDURES Final Result * High Sensitivity Troponin I (01/05/2025 12:36 PM EDT) [facility] TROPONIN I HIGH SENSITIVITY <2.7 <3.5 - 35.0 ng/L [facility] Comment:The Vargas high sens itivity Troponin-I results should beused in conjunction with other diagnostic information suchas ECG, clinical observations and information, and patientsymptoms to aid in the diagnosis of MO. 01/05/2025 12:3 6 PM EDT 01/05/2025 2:17 PM EDT Generic External Data Provider LAB BLOOD ORDERAB LES Final Result [facility] [address] [place] [phone] * Partial Thromboplastin Time, Activated (APTT) (01/05/2025 12:36 PM EDT) Pathologist [facility] Partial Thromboplastin Time 33.1 26.0 - 36.8 SEC [facility] Comment:For information rega rding the monitoring of direct thrombininhibitors, please refer to Pharmacy. 01/05/2025 12:3 6 PM EDT 01/05/2025 12:45 PM EDT us Generic External Data Provider LAB BLOOD ORDERAB LES Final Result Performing Organization Address [facility]/ZIP Co de Phone Number [facility] [address] [place] [phone] * Prothrombin Time-INR (01/05/2025 12:36 PM EDT) Pathologist [facility] Prothrombin Time 11.7 10.9 - 12.4 SEC [facility] INTERNATIONAL NORM RATIO 1.0 0.9 - 1.1 [facility] Comment:INTERNATIONAL NORMAL IZED RATIO (INR) REFERENCE [...] ORDERAB LES Final Result Performing Organization Address [facility] Co de Phone Number [facility] [address] [place] [phone] * B Type Natriuretic Peptide (BNP) (01/05/2025 12:36 PM EDT) Pathologist [facility] B Type Natriuretic Peptide 15 <100 pg/mL [facility] 01/05/2025 12:3 6 PM EDT 01/05/2025 2:09 PM EDT us Generic External Data Provider LAB BLOOD ORDERAB LES Final Result Performing Organization Address [facility]/ZIP Co de Phone Number [facility] [address] [place] [phone] * (ABNORMAL) Magnesium (01/05/2025 12:36 PM EDT) Pathologist [facility] Magnesium 1.4(LL) 1.6 - 2.6 mg/dL [facility] Comment:Critical value for t est(s): MAGS Results called to linn back by: marisela Person calling:TACOS Date:01/05/25Time:1308 01/05/2025 12:3 6 PM EDT 01/05/2025 12:45 PM EDT Generic External Data Provider LAB BLOOD ORDERAB LES Final Result Performing Organization Address [facility]/ZIP Co de Phone Number [facility] [address] [place] [phone] * Creatine Kinase, Total (01/05/2025 12:36 PM EDT) Pathologist [facility] Creatine Kinase Total 52 38 - 174 U/L [facility] 01/05/2025 12:3 6 PM EDT 01/05/2025 12:45 PM EDT Generic External Data Provider LAB BLOOD ORDERAB LES Final Result Performing Organization Address [facility]/ZIP Co de Phone Number [facility] [address] [place] [phone] * Hepatic Function Panel (01/05/2025 12:36 PM EDT) Pathologist [facility] Bilirubin, Total 0.5 0.0 - 1.0 mg/dL [facility] Bilirubin, Direct 0.3 0.0 - 0.5 mg/dL [facility] Aspartate Amino Transferase 16 5 - 37 U/L [facility] Alanine Aminotransferase 8 0 - 40 U/L [facility] Total Protein 6.9 6.5 - 8.0 g/dL [facility] Albumin Level 4.3 3.5 - 5.0 g/dL [facility] Alkaline Phosphatase 91 39 - 117 U/L [facility] 01/05/2025 12:3 6 PM EDT 01/05/2025 12:45 PM EDT us Generic External Data Provider LAB BLOOD ORDERAB LES Final Result Performing Organization Address City/[facility]/ZIP Co de Phone Number [facility] [address] [place] [phone] * (ABNORMAL) Basic Metabolic Panel (01/05/2025 12:36 PM EDT) Sodium 127(L) 135 - 145 mmol/L [facility] Potassium 4.2 3.3 - 5.1 mmol/L [facility] Chloride 96 96 - 108 mmol/L [facility] Carbon Dioxide 22 22 - 29 mmol/L [facility] Anion Gap 13 12 - 20 [facility] Urea Nitrogen (BUN) 13 9 - 16 mg/dL [facility] Creatinine, Serum 0.66 0.5 - 1.4 mg/dL [facility] Creatinine Clr Calc Pharmacy 71.0 [facility] Comment:eGFR (calculated fro m the MDRD study equation) and eCrCl(calculated from the Cockcroft-Gault equation) are based ondifferent parameters and may not yield comparable results.If eCrCl result is absurd, please check patient'sheight/weight. Estimated Glomerular Filt Rate >60 [facility] Comment:Chronic Kidney Disea se: Estimated GFR < 60 mL/min/[id number] Kidney Disease: Estimated GFR < 15 mL/min/1.73m2 Glucose 140(H) 60 - 115 mg/dL [facility] Calcium 9.7 8.4 - 10.2 mg/dL [facility] 01/05/2025 12:3 6 PM EDT 01/05/2025 12:45 PM EDT us Generic External Data Provider LAB BLOOD ORDERAB LES Final Result Performing Organization Address City/[facility]/ZIP Co de Phone Number [facility] [address] [place] [phone] * Referral to Audiology (11/14/2024) [facility] OUTPATIENT REFERRAL ORDERABLE S Final Result * XR Chest 2 Views (10/25/2024 10:13 AM EDT) Anatomical Region Laterality Modality Chest Radiographic Brianna ging 10/25/2024 10:1 3 AM EDT Narrative 10/25/2024 10:32 AM EDT [facility] [address] [place] [address] XRay Report Signed Patient: Lei Drew MR#: [id number] : 1945 Acct:[id number] Age/Sex: 79 / M ADM Date: 10/25/24 Loc: HO.HHCX Attending Dr: Abbi [facility] Ordering Physician: Abbi Saha [facility] Date of Service: 10/25/24 Procedure(s): XR chest 2V Accession Number(s): [id number] cc: [employer] EXAMINATION: XR CHEST 2 VIEWS HISTORY: 79 [...] 10/25/24 1029 DD/ 1013 TD/TT: 10/25/24 1020 Flatwork Assembler: Procedure Note Donotuseinterpreter, Image - 10/25/2024 [facility] [address] [place] [address] XRay Report Signed Patient: Scottie Drew#: [id number] : [birth year]Acct:[id number] Age/Sex: 79 / MADM Date: 10/25/24 Loc: [facility] Attending Dr: Abbi RIVAS Ordering Physician: bAbi Saha Date of Service: 10/25/24 Procedure(s): XR chest 2V Accession Number(s): [id number] [facility]: [facility] EXAMINATION: XR CHEST 2 VIEWS HISTORY: 79 [...] 10/25/24 1029 DD/ 1013 TD/TT: 10/25/24 1020 Flatwork Assembler: [facility] IMG XR PROCEDURES Final Resul t * (ABNORMAL) POCT HGB A1C (10/25/2024 9:24 AM EDT) Hemoglobin A1C 6.7(A) 4.0 - 6.0 % QC Media Lot # [id number] Lot# Expiration Date Blood 10/25/2024 9:24 AM EDT [facility] GLASS OR MIRROR INSPECTOR POINT OF CARE TEST ENTER/EDIT ORDERABLES Final Result * POCT Glucose (10/25/2024 9:23 AM EDT) Glucose Blood, POC 165 60 - 200 mg/dL QC Media Lot # [id number] Lot# Expiration Date Blood Capillary blood specimen / Unknown 10/25/2024 9:23 AM EDT [facility] POINT OF CARE TEST ENTER/EDIT ORDERABLES Final Result * Albumin, Random Urine W/Creatinine (05/03/2023 8:36 AM EDT) Creatinine, Urine 54.13 mg/dL [facility] Microalbumin Urine 8.0 mg/L [facility] Microalbum Creatinine Ratio Ur 14.7 <30 ug/mg cr [facility] Comment:Albumin/Creatinine R atio Reference Ranges: Normal: < 30 ug/mg creatinine Microalbuminuria: 30 - 300 ug/mg creatinineClinical Albuminuria: > 300 ug/mg creatinine Urine 05/03/2023 8:36 AM EDT 05/03/2023 11:07 AM EDT [facility] LAB URINE ORDERABLES Final Re sult [facility] [address] [place] [phone] * Lipid Panel, Standard (05/03/2023 8:36 AM EDT) Triglycerides 83 <150 mg/dL [facility] Comment:Desirable Triglyceri de: less than 150 mg/dLBorderline High Triglyceride 150-199 mg/dLHigh Triglyceride: 200-499 mg/dLVery High Triglyceride: greater than or equal to 5OO mg/dL Cholesterol 136 <200 mg/dL [facility] Comment:Desirable Cholestero l: less than 200 mg/dLBorderline High Cholesterol: 200-239 mg/dLHigh Cholesterol: greater than 239 mg/dL LDL Cholesterol Calculated 54 <100 mg/dL [facility] Comment:Desirable LDL: less than 100 mg/dLNear Optimal/Above Optimal LDL: 110- 129 mg/dLBorderline High LDL: 130-159 mg/dLHigh LDL: 160-189 mg/dLVery High LDL: greater than or equal to 190 mg/dL HDL Cholesterol 66 >40 mg/dL [facility] Comment:Desirable HDL: great er than 40 mg/dL Note: This HDL assay may give artificially low results in patients with liver disease. Blood Venous blood specimen / Unknown 05/03/2023 8:36 AM EDT 05/03/2023 11:13 AM EDT [facility] LAB BLOOD ORDERABLES Final Re sult [facility] [address] [place] [phone] * Hepatitis C Antibody with Reflex to HCV, RNA, Quantitative, Real-Time PCR (09/11/2022 3:09 PM EST) Hepatitis C Antibody NON-REACT VAHID NON-REACT VAHID [employer] [place] [employer] [facility] Index <0.02 <1.00 [employer] [place] [employer] [facility] Comment: HCV antibody was non-reactive. There is no laboratory evidence of HCV infection. In most cases, no further action is required. However, if recent HCV exposure is suspected, a test for HCV RNA (test code 80523) is suggested. For additional information please refer to http://education.Nutzvieh24/faq/RUA43z6 (This link is being provided for informational/ educational purposes only.) Blood Venous blood specimen / Unknown 09/11/2022 3:09 PM EST 09/11/2022 3:09 PM EST Narrative [facility] - 09/14/2022 1:32 PM EST FASTING:NO FASTING: NO [facility] BLOOD ORDERABLES Final Re sult [facility] [address] [facility] [place] [address] [facility] [address] [facility], ([address]) [place] [address] from Last 3 Months or Most Recently Relevant to Health Maintenance Insurance [employer] [facility] [facility] Care Teams Chairman Emeritus Relationship Specialty Start Date End Date Abbi Saha FNP [address] [place] [phone] PCP - General Family Medicine [facility]
--- OUTSIDE RECORDS SUMMARY | 2025-01-22 11:03 | XMS_ITS | Clinical Summary ---
Author Organization [facility] Address [address] [place] [address] Phone Care Team Providers Care Gate Cutter Name Role Phone Unavailable Primary Care Provider [...] 2025 , 04/09/2023, 04/17/2022, Additional history exists Cholesterol Screening (Lipid Panel) [...]
[2025-01-22] MEDS: iohexoL 350 MG/ML 100 ML INFUS..BTL IV (11:32)
== END 2025-01-22 10:17 | disposition home or self-care (01) ==
LOC: HO.CT 10:16
PROVIDERS: PCP Registered Nurse; Visit Provider Nurse Practitioner Family
DX: C34.90 Malignant neoplasm of unspecified part of unspecified bronchus or lung (principal)
CPT/HCPCS: 71260; Q9967

== ENCOUNTER → 2025-01-22 10:18 | Outpatient (BNV) | payer MEDICARE, SELFPAY | PROVIDERS: PCP Registered Nurse; Visit Provider Radiology Diagnostic Radiology | DX: R91.8 Other nonspecific abnormal finding of lung field (principal); R59.0 Localized enlarged lymph nodes | CPT/HCPCS: 71260 ==

== ENCOUNTER 2025-01-24 09:06 | Outpatient (REF) | payer MEDICARE, SELFPAY ==
--- OUTSIDE RECORDS SUMMARY | 2025-01-24 09:24 | XMS_ITS | Clinical Summary ---
Author Organization [employer] Address [address] [facility] [address] [place] [address] Care Team Providers Care Specimen Boss Name Role Phone Abbi Saha SOAP MAKER Primary Care Provider [phone] Allergies No known active allergies Medications Diclofenac Sodium 1 % gel Apply 2 g topically every 6 (six) hours. 06/06/20 21 Active Lidocaine 4 % patch Apply to the affected area up to 3 times daily as needed Active sildenafil (Viagra) 100 MG tablet Take 1 tablet by mouth at bed time. Active Blood Glucose Monitoring Suppl (XATA Verio) w/Device kitIndications: Type 2 diabetes mellitus without complication, without long-term current use of insulin ([facility]) 1 kit before breakfast and before evening [...] hyperglycemia, without long-term current use of insulin ([facility]) Take 5.12 g (3 g of fiber) by mouth Once per day. 283 g 11 02/25/20 24 025 Active atorvastatin (Lipitor) 10 MG tablet TAKE 1 TABLET BY MOUTH EVERY EVENING 90 tablet 2 04/19/20 24 Active oxyCODONE (Roxicodone) 5 MG immediate release tablet 5 mg. 05/06/20 24 Active Creon 76718-00278 units capsule 2 capsules. 04/19/20 24 Active glucose blood (OneTouch Verio) test strip TEST BLOOD SUGAR TWICE A DAY 100 each 11 08/21/19 25 Active Multiple Vitamin (Multivitamin) tabletIndicatio ns:Type 2 diabetes mellitus with hyperglycemia, without long-term current use of insulin ([facility]) TAKE 1 TABLET BY MOUTH EVERY EVENING WITH FOOD 90 tablet 3 08/23/19 25 Active metFORMIN (Glucophage) 1000 MG tabletIndicatio ns:Type 2 diabetes mellitus with hyperglycemia, without long-term current use of insulin ([facility]) Take 1 tablet (1,000 mg) by mouth with breakfast and with evening meal. 60 tablet 11 09/08/19 25 026 Active SITagliptin (Januvia) 25 MG tabletIndicatio ns:Type 2 diabetes mellitus with hyperglycemia, without long-term current use of insulin ([facility]) Take 1 tablet (25 mg) by mouth Once per day. 30 tablet 11 09/08/19 25 026 Active Lancets (OneTouch Delica Plus [id number]) miscIndications :Elevated blood sugar TEST BLOOD SUGAR TWICE DAILY 100 each 11 10/07/19 25 Active mirtazapine (Remeron) 7.5 MG tabletIndicatio ns:Other insomnia Take 1 tablet (7.5 mg) by mouth at bedtime. 30 tablet 1 12/16/19 25 Active Farxiga 10 MGIndications:T ype 2 diabetes mellitus with other specified complication, unspecified whether oysterman insulin use ([facility]) TAKE 1 TABLET BY MOUTH EVERY MORNING 90 tablet 1 12/30/19 25 Active omeprazole (PriLOSEC) [address] capsuleIndicati ons:Dyspepsia TAKE 1 CAPSULE BY MOUTH TWICE DAILY 60 capsule 2 01/23/20 25 Active Farxiga 10 MGIndications:T ype 2 diabetes mellitus with other specified complication, unspecified whether oysterman insulin use (CMS/HCC) TAKE 1 TABLET BY MOUTH EVERY MORNING 90 tablet 1 06/14/20 24 025 Discontinued omeprazole (PriLOSEC) [address] capsuleIndicati ons:Dyspepsia TAKE 1 CAPSULE BY MOUTH TWICE DAILY 60 capsule 2 10/31/19 025 Discontinued Active Problems Problem Noted Date Diagnosed Date Primary malignant neoplasm o f left lung metastatic to other site 07/05/2024 Overview (07/05/2024): New dx of metastatic NSCLC 04/2024.-- Presented to [facility] ED w1 with acute SOB. CT [...] of metastatic disease. PET-CT performed 05/30/24 at [facility] showed FDG avid loculated left-sided pleural [...] maintenance 10/16/2022 Overview (10/25/2022): Healthcare Maintenance: C-scope: [facility] 2021, needs records PSA: Per urology HCV Screen: Neg 09/10 HIV Screen: Neg 09/10 Immunizations: UTD Weight loss 09/17/2022 Diabetes 09/11/2022 Overview (02/25/2024): Farxiga 10mg daily Metformin 1000mg b.i.d Januvia 25 mg daily Foot Exam: Risk 0; followed by podiatry ([place]) Eye Exam: [facility] Eye care Statin: Yes ASA: [...] Repeat labs today Has upcoming appointment for [facility] eye care Assessment & Plan [...] Plan (05/19/2023 11:14 AM EDT): Compliant with COURT BAILIFF agreement Only using tramadol 1x/week due to concern re addiction Advised patient OK to take tramadol at bedtime nightly if pain interfering with sleep Continue acetaminophen PRN during day Continue lidocaine patch Continue topical diclofenac gel Continue acupuncture PT referral for general gait instability Assessment & Plan (10/25/2022 1:09 PM EDT): Will refer to COURT BAILIFF RN Hypertensive disorder 04/12/2017 Overview (02/25/2024): Losartan [...] Encounters Date Type Department Care Team Description 01/24/2025 Refill [facility] [address] [facility] [place] [address] Abbi Saha FNP 01/21/2025 Refill [facility] [place] [address] Abbi Saha FNP Dyspepsia 01/11/2025 Telephone [facility] WALK-IN CENTER [address] [place] [address] Abbi Saha FNP sept recall 01/05/2025 Orders Only GENERIC EXTERNAL DATA DEPARTMENT Provider, Generic External Data 12/28/2024 Refill [facility] MOBILE VACCINE CLIN[facility] [address] [place] [address] Abbi Saha FNP Type 2 diabetes mellitus with other specified complication, unspecified whether oysterman insulin use ([facility]) 12/18/2024 Telephone [facility] [place] [address] Gaby Santamaria RN hearing aids 12/15/2024 1:30 PM EDT Telemedicine [facility] [place] [address] Abbi Saha FNP Other insomnia (Primary Dx) 12/15/2024 Travel 12/14/2024 Telephone [facility] [place] [address] Abbi Saha FNP chart prep 11/16/2024 Telephone [facility] [place] [address] Abbi Saha FNP Pcp's message 11/02/2024 Telephone [facility] [place] [address] [place], Abbi, SOAP MAKER Durable Medical Equipment ([employer] Form: Transparent Film ) 10/29/2024 Refill [facility] MEDIC[facility] [address] [place] [address] Abbi Saha [facility] Dyspepsia 10/25/2024 9:15 AM EDT Office Visit [facility] MEDICINE [address] [place] [address] [facility] Type 2 diabetes mellitus with hyperglycemia, without long-term current use of insulin ([facility]) (Primary Dx); Acute cough; Sensorineural hearing loss (SNHL) of both ears; Dietary counseling; Exercise counseling 10/25/2024 Travel from Last 3 Months Immunizations Immunization Administration [...] Description 01/30/2025 10:45 AM EDT Office Visit [facility] MEDICINE [address] [place] [address] Swati Kan MD [address] [place] [address] 03/23/2025 11:15 AM EDT Office Visit [facility] MED[facility] [address] [place] [address] Maria A, Abbi, SOAP MAKER [address] [place], [place] [phone] 04/10/2025 10:00 AM EDT Office Visit [facility] ADULT DENTAL [address] [place], [place] [phone] Amber Conteh Health Maintenance Due Date Last [...] Procedure Name Priority Date/Time Associated Diagnosis Comments CT CHEST W CONTRAST Routine 01/22/2025 1 0:44 AM EDT CTA LOWER EXTREMITY W AND WO CONTRAST [...] hyperglycemia, without long-term current use of insulin ([facility]) POCT GLUCOSE Routine 10/25/2024 9:23 AM EDT [...] Recently Relevant to Health Maintenance Results * CT Chest w/ Contrast (01/22/2025 10:44 AM EDT) Anatomical Region Laterality Modality Body, Chest Computed Tomogra phy 01/22/2025 10:4 4 AM EDT Narrative 01/22/2025 1:38 PM EDT [place] [address] [address] Scan Report Signed Patient: Lei Drew MR#: [id number] : 1945 Acct:[id number] Age/Sex: 79 / M ADM Date: 01/22/25 Loc: HO.CT Attending Dr: Tabatha Quintero NP Ordering Physician: Tabatha Quintero NP Date of Service: 01/22/25 Procedure(s): CT chest w IV con Accession Number(s): [id number] cc: Louisa Morales MD; Tabatha Quintero NP; [place],[facility] Report Number: [id number]: Total DLP = 115.00 mGy-cm EXAMINATION: CT CHEST WITH CONTRAST CLINICAL INFORMATION: Restaging lung cancer DLP: 115 mGY*cm COMPARISON: 05/03/2024 TECHNIQUE: Multidetector volumetric CT imaging of the chest was obtained after the administration of 65 mL of Omnipaque 350 intravenous contrast without immediate adverse reactions. Axial MIP volume rendering provided. Sagittal and coronal reformatted images were obtained. This CT examination was performed using dose optimization techniques as appropriate, variously including the following: *Automated exposure control *Adjustment of mA and/or kV according to patient size (this includes techniques or standardized protocols for targeted exams where dose is matched to indication/reason for exam; i.e. extremities or head) *Use of iterative reconstruction technique FINDINGS: LUNGS: Linear scarring and cicatricial atelectasis is noted in the anterior medial left apex. In the medial apex, there is a nodule measured on sagittal series 9 image 45/114: 1.4 x 2.1 cm. Anterior margin of this nodular density was obscured on the prior examination by atelectasis. Groundglass and mild reticular changes are present in the posterior lower lobes. MEDIASTINUM: Right upper paratracheal lymph node has increased in short axis diameter from 5 mm, now 9 mm. The largest precarinal lymph node measures 9 mm short axis. 1 cm AP window lymph node is unchanged. Axial series 7 image 74/148: Left hilar lymph node measures 1.2 cm short axis, not as well demonstrated on the prior. PLEURA: Trace left pleural effusion has decreased since the prior. AXILLA: No lymphadenopathy. UPPER ABDOMEN: Unremarkable OSSEOUS STRUCTURES: Unremarkable. CT/CT chest w IV con IMPRESSION: Suspected 1.4 x 2.1 cm spiculated nodule in the medial left upper lobe was partially obscured on the prior examination. There is an enlarging borderline right upper paratracheal node and a suspected enlarged left hilar lymph node not clearly demonstrated on the prior. Stable AP window lymph node. Fleischner guidelines were followed. Electronically signed by: Peewee Booker MD 01/22/2025 01:35 PM EDT RP Dictated By: Peewee Booker MD Signed By: <Electronically signed by Peewee Booker MD in OV> 01/22/25 1335 DD/ 1044 TD/TT: 01/22/25 1115 Hop Farmer: Procedure Note Sairater, Image - 01/22/[address] [place] [address] [address] Scan Report Signed Patient: Scottie Drew#: [id number] : 1945cct:[id number] Age/Sex: 79 / MADM Date: 01/22/25 Loc: HO.CT Attending Dr: Tabatha Quintero NP Ordering Physician: Tabatha Quintero NP Date of Service: 01/22/25 Procedure(s): CT chest w IV con Accession Number(s): [id number] cc: Louisa Morales MD; Tabatha Quintero NP; [facility] Report Number: [id number]: Total DLP = 115.00 mGy-cm EXAMINATION: CT CHEST WITH CONTRAST CLINICAL INFORMATION: Restaging lung cancer DLP: 115 mGY*cm COMPARISON: 05/03/2024 TECHNIQUE: Multidetector volumetric CT imaging of the chest was obtained after the administration of 65 mL of Omnipaque 350 intravenous contrast without immediate adverse reactions. Axial MIP volume rendering provided. Sagittal and coronal reformatted images were obtained. This CT examination was performed using dose optimization techniques as appropriate, variously including the following: *Automated exposure control *Adjustment of mA and/or kV according to patient size (this includes techniques or standardized protocols for targeted exams where dose is matched to indication/reason for exam; i.e. extremities or head) *Use of iterative reconstruction technique FINDINGS: LUNGS: Linear scarring and cicatricial atelectasis is noted in the anterior medial left apex. In the medial apex, there is a nodule measured on sagittal series 9 image 45/114: 1.4 x 2.1 cm. Anterior margin of this nodular density was obscured on the prior examination by atelectasis. Groundglass and mild reticular changes are present in the posterior lower lobes. MEDIASTINUM: Right upper paratracheal lymph node has increased in short axis diameter from 5 mm, now 9 mm. The largest precarinal lymph node measures 9 mm short axis. 1 cm AP window lymph node is unchanged. Axial series 7 image 74/148: Left hilar lymph node measures 1.2 cm short axis, not as well demonstrated on the prior. PLEURA: Trace left pleural effusion has decreased since the prior. AXILLA: No lymphadenopathy. UPPER ABDOMEN: Unremarkable OSSEOUS STRUCTURES: Unremarkable. CT/CT chest w IV con IMPRESSION: Suspected 1.4 x 2.1 cm spiculated nodule in the medial left upper lobe was partially obscured on the prior examination. There is an enlarging borderline right upper paratracheal node and a suspected enlarged left hilar lymph node not clearly demonstrated on the prior. Stable AP window lymph node. Fleischner guidelines were followed. Electronically signed by: Peewee Booker MD 01/22/2025 01:35 PM EDT Dictated By: Peewee Booker MD Signed By: <Electronically signed by Peewee Booker MD in OV> 01/22/25 1335 DD/ 1044 TD/TT: 01/22/25 1115 Hop Farmer: us [facility] External Provider IMG CT PROCEDURES Final Result * CTA Lower Extremity w/ and w/o Contrast Right (01/05/2025 6:06 PM EDT) Anatomical Region Laterality Modality Lower Extremities Right Computed Tomog ewa 01/05/2025 6:06 PM EDT Narrative 01/05/2025 6:07 PM EDT [address] [address] [address] Scan Report Signed Patient: Lei Drew MR#: [id number] : 1945 Acct:[id number] Age/Sex: 79 / M ADM Date: 01/05/25 Loc: HO.ED Attending Dr: Ordering Physician: Tito Lauren PA-C Date of Service: 01/05/25 Procedure(s): CT angio LE RT Accession Number(s): [id number] cc: Tito Lauren PA-C; [facility] Report Number: [id number]: Total DLP = 0.00 mGy-cm CLINICAL HISTORY: [...] Phi Garcia MD in OV> 01/05/251805 DD/ 180 TD/TT: 01/05/251805 Hop Farmer: Procedure Note Donotuseinterpreter, Image - 01/05/[address] [address] [address] Scan Report Signed Patient: Scottie Drew#: [id number] : 6Acct:[id number] Age/Sex: 79 / MADM Date: 01/05/25 Loc: HO.ED Attending Dr: Ordering Physician: Tito Lauren PA-C Date of Service: 01/05/25 Procedure(s): CT angio LE RT Accession Number(s): [id number] cc: Tito Lauren PA-C; Abbi Saha [facility] Report Number: [id number]: Total DLP = 0.00 mGy-cm CLINICAL HISTORY: [...] in OV> 01/05/251805 DD/ 05 TD/TT: 01/05/251805 Hop Farmer: us [facility] External Provider IMG CT PROCEDURES Final Result * Sodium Without creatinine, Random Urine (01/05/2025 5:29 PM EDT) Sodium Urine Random 32.0 mmol/L [facility] 01/05/2025 5:29 PM EDT 01/05/2025 5:42 PM EDT us Generic External Data Provider LAB BLOOD ORDERAB LES Final Result Performing Organization Address [facility]/ZIP Co de Phone Number [facility] [address] [place] [address] [phone] * Osmolality, Urine (01/05/2025 5:29 PM EDT) OSMOLALITY URINE 559 373 - 1,093 mosm/kg [facility] 01/05/2025 5:29 PM EDT 01/05/2025 5:42 PM EDT Generic External Data Provider LAB URINE ORDERAB LES Final Result Performing Organization Address [facility] Co de Phone Number [facility] [address] [place] [phone] * SST GOLD TOP TO HOLD (01/05/2025 3:30 PM EDT) Pathologist [facility] Hold Gold See Note [facility] Comment:Specimen held untest ed for 24 hours; Call to requestChemistry testing. 01/05/2025 3:30 PM EDT 01/05/2025 3:33 PM EDT Generic External Data Provider LAB BLOOD ORDERAB LES Final Result Performing Organization Address [facility] Co de Phone Number [facility] [address] [place] [address] [phone] * (ABNORMAL) CBC auto differential (01/05/2025 3:29 PM EDT) Only the most recent of2 resultswithin the time period is included. White Blood Count 9.4 4.8 - 10.8 X10*3/uL [facility] Red Blood Count 4.45(L) 4.60 - 5.80 X10*6/uL [facility] Hemoglobin 13.4(L) 14.0 - 18.0 g/dl [facility] Hematocrit 37.2(L) 42.0 - 52.0 % [facility] Mean Corpuscular Volume 83.6 80.0 - 98.0 fL [facility] Mean Corpuscular Hemoglobin 30.1 27.0 - 33.0 pg [facility] Mean Corpuscular HGB Conc 36.0 31.0 - 36.0 g/dl [facility] Red Cell Distribution Width 15.7 11.0 - 16.0 % [facility] Platelet Count 242 160 - 400 X10*3/uL [facility] Mean Platelet Volume 8.9(L) 9.4 - 12.4 fL [facility] Neutrophils Percent Auto 80.6(H) 45 - 73 % [facility] Imm Gran Pct Auto 0.6(H) 0.0 - 0.4 % [facility] Lymphocytes Percent Auto 9.7(L) 20 - 40 % [facility] Monocytes Percent Auto 7.4 2 - 11 % [facility] Eosinophils Percent Auto 1.4 0 - 4 % [facility] Basophils Percent Auto 0.3 0 - 2 % [facility] NRBC Pct Auto 0.0 0.0 - 0.2 /100WBC [facility] Neutrophils Absolute Auto 7.6 2.0 - 8.3 x10*3/uL [facility] Imm Gran Abs Auto 0.06(H) 0.00 - 0.03 X10*3/uL [facility] Lymphocytes Absolute Auto 0.9(L) 1.2 - 4.9 X10*3/uL [facility] Monocytes Absolute Auto 0.7 0.1 - 1.2 X10*3/uL [facility] Eosinophils Absolute Auto 0.1 0.0 - 0.4 X10*3/uL [facility] Basophils Absolute Auto 0.0 0.0 - 0.2 X10*3/uL [facility] NRBC Abs Auto 0.000 0.0 - 0.012 X10*3/uL [facility] 01/05/2025 3:29 PM EDT 01/05/2025 3:33 PM EDT us Generic External Data Provider LAB BLOOD ORDERAB LES Final Result [facility] [address] [place] [phone] * XR Hips Bilateral with Pelvis 1 view (01/05/2025 2:30 PM EDT) Anatomical Region Laterality Modality Lower Extremities, Hip Bilateral Radiograp hic Imaging 01/05/2025 2:30 PM EDT Narrative 01/05/2025 3:01 PM EDT [address] [address] XRay Report Signed Patient: Lei Drew MR#: [id number] : 1945 Acct:[id number] Age/Sex: 79 / M ADM Date: 01/05/25 Loc: HO.ED Attending Dr: Ordering Physician: Tito Lauren PA-C Date of Service: 01/05/25 Procedure(s): XR hip BI w PEL1V Accession Number(s): [id number] cc: Tito Lauren PA-C; [facility] EXAMINATION: XR BILATERAL HIPS WITH AP PELVIS [...] by David Gilliam MD in OV> 01/05/25 1455 DD/ 1430 TD/TT: 01/05/25 1442 Hop Farmer: Procedure Note Donotuseinterpreter, Image - 01/05/[address] [address] XRay Report Signed Patient: Jacqui DrewR#: [id number] : 6Acct:[id number] Age/Sex: 79 / MADM Date: 01/05/25 Loc: HO.ED Attending Dr: Ordering Physician: Tito Lauren PA-C Date of Service: 01/05/25 Procedure(s): XR hip BI w PEL1V Accession Number(s): [id number] cc: Tito Lauren PA-C; [facility] SOAP MAKER EXAMINATION: XR BILATERAL HIPS WITH AP PELVIS [...] 01/05/25 1458 DD/ 1430 TD/TT: 01/05/25 1442 Hop Farmer: us [facility] External Provider IMG XR PROCEDURES Final Result * CT Head w/o Contrast (01/05/2025 1:45 PM EDT) Anatomical Region Laterality Modality Head, Neck Computed Tomogra phy 01/05/2025 1:45 PM EDT Narrative 01/05/2025 3:05 PM EDT [address] [address] [address] Scan Report Signed Patient: Lei Drew MR#: [id number] : 1945 Acct:[id number] Age/Sex: 79 / M ADM Date: 01/05/25 Loc: HO.ED Attending Dr: Ordering Physician: Tito Lauren PA-C Date of Service: 01/05/25 Procedure(s): CT head/brain wo IV con Accession Number(s): [id number] cc: Tito Lauren PA-C; [facility] Report Number: [id number]: Total DLP = 642.00 mGy-cm EXAMINATION: CT [...] 01/05/25 1503 DD/ 1345 TD/TT: 01/05/25 1450 Hop Farmer: Procedure Note Donotuseinterpreter, Image - 01/05/[address] [address] [address] Scan Report Signed Patient: Scottie Drew#: [id number] : 6Acct:[id number] Age/Sex: 79 / MADM Date: 01/05/25 Loc: HO.ED Attending Dr: Ordering Physician: Tito Lauren PA-C Date of Service: 01/05/25 Procedure(s): CT head/brain wo IV con Accession Number(s): [id number] cc: Tito Lauren PA-C; [facility] Report Number: [id number]: Total DLP = 642.00 mGy-cm EXAMINATION: CT [...] 01/05/25 1503 DD/ 1345 TD/TT: 01/05/25 1450 Hop Farmer: [facility] External Provider IMG CT PROCEDURES Final Result * XR Femur 2+ Views Right (01/05/2025 1:29 PM EDT) Anatomical Region Laterality Modality Lower Extremities, Femur Right Radiogr aphic Imaging 01/05/2025 1:29 PM EDT Narrative 01/05/2025 2:59 PM EDT [address] [address] XRay Report Signed Patient: Lei Drew MR#: [id number] : 1945 Acct:[id number] Age/Sex: 79 / M ADM Date: 01/05/25 Loc: HO.ED Attending Dr: Ordering Physician: Tito Lauren PA-C Date of Service: 01/05/25 Procedure(s): XR femur RT 2V Accession Number(s): [id number] cc: [facility]-C; [facility]: XR FEMUR, RIGHT CLINICAL INFORMATION: fall/hematoma [...] 01/05/25 1457 DD/ 1329 TD/TT: 01/05/25 1442 Hop Farmer: Procedure Note Donotuseinterpreter, Image - 01/05/[address] [address] XRay Report Signed Patient: Jacqui DrewR#: [id number] : 1945cct:[id number] Age/Sex: 79 / MADM Date: 01/05/25 Loc: HO.ED Attending Dr: Ordering Physician: Tito Lauren PA-C Date of Service: 01/05/25 Procedure(s): XR femur RT 2V Accession Number(s): [id number] cc: Tito Lauren PA-C; [facility] EXAMINATION: XR FEMUR, RIGHT CLINICAL INFORMATION: fall/hematoma [...] David Gilliam MD 01/05/2025 02:57 PM EDT RP Workstation: [id number] Dictated By: David Gilliam MD Signed By: <Electronically signed by David Gilliam MD in OV> 01/05/25 1457 DD/ 1329 TD/TT: 01/05/25 1442 Hop Farmer: [facility] External Provider IMG XR PROCEDURES Final Result * High Sensitivity Troponin I (01/05/2025 12:36 PM EDT) TROPONIN I HIGH SENSITIVITY <2.7 <3.5 - 35.0 ng/L [facility] Comment:The Vargas high sens itivity Troponin-I results should beused in conjunction with other diagnostic information suchas ECG, clinical observations and information, and patientsymptoms to aid in the diagnosis of LA. 01/05/2025 12:3 6 PM EDT 01/05/2025 2:17 PM EDT Generic External Data Provider LAB BLOOD ORDERAB LES Final Result [facility] [address] [place] [phone] * Partial Thromboplastin Time, Activated (APTT) (01/05/2025 12:36 PM EDT) Partial Thromboplastin Time 33.1 26.0 - 36.8 SEC [facility] Comment:For information rega rding the monitoring of direct thrombininhibitors, please refer to Pharmacy. 01/05/2025 12:3 6 PM EDT 01/05/2025 12:45 PM EDT Generic External Data Provider LAB BLOOD ORDERAB LES Final Result Performing Organization Address [facility] Co de Phone Number [facility] [address] [place] [address] [phone] * Prothrombin Time-INR (01/05/2025 12:36 PM EDT) Pathologist [facility] Prothrombin Time 11.7 10.9 - 12.4 SEC [facility] INTERNATIONAL NORM RATIO 1.0 0.9 - 1.1 [facility] Comment:INTERNATIONAL NORMAL IZED RATIO (INR) REFERENCE [...] 6 PM EDT 01/05/2025 12:45 PM EDT [facility] External Data Provider LAB BLOOD ORDERAB LES Final Result Performing Organization Address [facility] [facility] Co de Phone Number [facility] [address] [place] [address] [phone] * B Type Natriuretic Peptide (BNP) (01/05/2025 12:36 PM EDT) B Type Natriuretic Peptide 15 <100 pg/mL [facility] 01/05/2025 12:3 6 PM EDT 01/05/2025 2:09 PM EDT us Generic External Data Provider LAB BLOOD ORDERAB LES Final Result Performing Organization Address [facility] Co de Phone Number [facility] [address] [place] [phone] * (ABNORMAL) Magnesium (01/05/2025 12:36 PM EDT) Magnesium 1.4(LL) 1.6 - 2.6 mg/dL [facility] Comment:Critical value for t est(s): MAGS Results called to linn back by: marisela Person calling:TACOS Date:01/05/25Time:1308 01/05/2025 12:3 6 PM EDT 01/05/2025 12:45 PM EDT us Generic External Data Provider LAB BLOOD ORDERAB LES Final Result Performing Organization Address [facility] Co de Phone Number [facility] [address] [place] [address] [phone] * Creatine Kinase, Total (01/05/2025 12:36 PM EDT) Creatine Kinase Total 52 38 - 174 U/L [facility] 01/05/2025 12:3 6 PM EDT 01/05/2025 12:45 PM EDT Generic External Data Provider LAB BLOOD ORDERAB LES Final Result Performing Organization Address [facility] Co de Phone Number [facility] [address] [place] [phone] * Hepatic Function Panel (01/05/2025 12:36 PM EDT) Bilirubin, Total 0.5 0.0 - 1.0 mg/dL [facility] Bilirubin, Direct 0.3 0.0 - 0.5 mg/dL [facility] Aspartate Amino Transferase 16 5 - 37 U/L [facility] Alanine Aminotransferase 8 0 - 40 U/L [facility] Total Protein 6.9 6.5 - 8.0 g/dL [facility] Albumin Level 4.3 3.5 - 5.0 g/dL [facility] Alkaline Phosphatase 91 39 - 117 U/L [facility] 01/05/2025 12:3 6 PM EDT 01/05/2025 12:45 PM EDT us Generic External Data Provider LAB BLOOD ORDERAB LES Final Result [facility] [address] [place] [phone] * (ABNORMAL) Basic Metabolic Panel (01/05/2025 12:36 PM EDT) Sodium 127(L) 135 - 145 mmol/L [facility] Potassium 4.2 3.3 - 5.1 mmol/L [facility] Chloride 96 96 - 108 mmol/L [facility] Carbon Dioxide 22 22 - 29 mmol/L [facility] Anion Gap 13 12 - 20 [facility] Urea Nitrogen (BUN) 13 9 - 16 mg/dL [facility] Creatinine, Serum 0.66 0.5 - 1.4 mg/dL [facility] Creatinine Clr Calc Pharmacy 71.0 [facility] Comment:eGFR (calculated fro m the MDRD study equation) and eCrCl(calculated from the Cockcroft-Gault equation) are based ondifferent parameters and may not yield comparable results.If eCrCl result is absurd, please check patient'sheight/weight. Estimated Glomerular Filt Rate >60 [facility] Comment:Chronic Kidney Disea se: Estimated GFR < 60 mL/min/1.50p5Vxvcuz Kidney Disease: Estimated GFR < 15 mL/min/1.73m2 Glucose 140(H) 60 - 115 mg/dL [facility] Calcium 9.7 8.4 - 10.2 mg/dL [facility] 01/05/2025 12:3 6 PM EDT 01/05/2025 12:45 PM EDT Generic External Data Provider LAB BLOOD ORDERAB LES Final Result [facility] [address] [place] [phone] [phone] * Referral to Audiology (11/14/2024) [facility] OUTPATIENT REFERRAL ORDERABLE S Final Result * XR Chest 2 Views (10/25/2024 10:13 AM EDT) Anatomical Region Laterality Modality Chest Radiographic Brianna ging 10/25/2024 10:1 3 AM EDT Narrative 10/25/2024 10:32 AM EDT [facility] [address] [place] [address] XRay Report Signed Patient: Lei Drew MR#: [id number] : 1945 Acct:[id number] Age/Sex: 79 / M ADM Date: 10/25/24 Loc: HO.HHCX Attending Dr: Abbi Saha [facility] Ordering Physician: Abbi Saha Date of Service: 10/25/24 Procedure(s): XR chest 2V Accession Number(s): [id number] cc: Abbi Saha [facility] EXAMINATION: XR CHEST 2 VIEWS HISTORY: 79 [...] Mosqueda MD Signed By: <Electronically signed by eJrzy Mosqueda MD in OV> 10/25/24 1029 DD/ 1013 TD/TT: 10/25/24 1020 Hop Farmer: Procedure Note Donotuseinterpreter, Image - 10/25/[address] [address] XRay Report Signed Patient: Scottie Drew#: [id number] : 6Acct:[id number] Age/Sex: 79 / MADM Date: 10/25/24 Loc: HO.HHCX Attending Dr: Abbi Saha [employer] Ordering Physician: Abbi Saha Date of Service: 10/25/24 Procedure(s): XR chest 2V Accession Number(s): [id number] cc: Abbi Saha [facility] EXAMINATION: XR CHEST 2 VIEWS HISTORY: 79 [...] 10/25/24 1029 DD/ 1013 TD/TT: 10/25/24 1020 Hop Farmer: [facility] IMG XR PROCEDURES Final Resul t * (ABNORMAL) POCT HGB A1C (10/25/2024 9:24 AM EDT) Hemoglobin A1C 6.7(A) 4.0 - 6.0 % QC Media Lot # [id number] Lot# Expiration Date Blood 10/25/2024 9:24 AM EDT [facility] POINT OF CARE TEST ENTER/EDIT ORDERABLES Final Result * POCT Glucose (10/25/2024 9:23 AM EDT) Glucose Blood, POC 165 60 - 200 mg/dL QC Media Lot # [id number] Lot# Expiration Date Blood Capillary blood specimen / Unknown 10/25/2024 9:23 AM EDT [facility] POINT OF CARE TEST ENTER/EDIT ORDERABLES Final Result * Albumin, Random Urine W/Creatinine (05/03/2023 8:36 AM EDT) Pathologist [facility] Creatinine, Urine 54.13 mg/dL [facility] Microalbumin Urine 8.0 mg/L [facility] Microalbum Creatinine Ratio Ur 14.7 <30 ug/mg cr [facility] Comment:Albumin/Creatinine R atio Reference Ranges: Normal: < 30 ug/mg creatinine Microalbuminuria: 30 - 300 ug/mg creatinineClinical Albuminuria: > 300 ug/mg creatinine Urine 05/03/2023 8:36 AM EDT 05/03/2023 11:07 AM EDT [facility] LAB URINE ORDERABLES Final Re sult [facility] [address] [place] [address] [phone] * Lipid Panel, Standard (05/03/2023 8:36 AM EDT) Triglycerides 83 <150 mg/dL [facility] Comment:Desirable Triglyceri de: less than 150 mg/dLBorderline High Triglyceride 150-199 mg/dLHigh Triglyceride: 200-499 mg/dLVery High Triglyceride: greater than or equal to 5OO mg/dL Cholesterol 136 <200 mg/dL [facility] Comment:Desirable Cholestero l: less than 200 mg/dLBorderline High Cholesterol: 200-239 mg/dLHigh Cholesterol: greater than 239 mg/dL LDL Cholesterol Calculated 54 <100 mg/dL [facility] Comment:Desirable LDL: less than 100 mg/dLNear Optimal/Above Optimal LDL: 110- 129 mg/dLBorderline High LDL: 130-159 mg/dLHigh LDL: 160-189 mg/dLVery High LDL: greater than or equal to 190 mg/dL HDL Cholesterol 66 >40 mg/dL [facility] Comment:Desirable HDL: great er than 40 mg/dL Note: This HDL assay may give artificially low results in patients with liver disease. Blood Venous blood specimen / Unknown 05/03/2023 8:36 AM EDT 05/03/2023 11:13 AM EDT [facility] LAB BLOOD ORDERABLES Final Re sult [facility] [address] [place] [address] [phone] * Hepatitis C Antibody with Reflex to HCV, RNA, Quantitative, Real-Time PCR (09/11/2022 3:09 PM EST) Hepatitis C Antibody NON-REACT VAHID NON-REACT VAHID [place] Index <0.02 <1.00 [place] Comment: HCV antibody was non-reactive. There is no laboratory evidence of HCV infection. In most cases, no further action is required. However, if recent HCV exposure is suspected, a test for HCV RNA (test code 98556) is suggested. For additional information please refer to http://education.Segterra (InsideTracker)/faq/DGG68t0 (This link is being provided for informational/ educational purposes only.) Blood Venous blood specimen / Unknown 09/11/2022 3:09 PM EST 09/11/2022 3:09 PM EST Narrative [facility] - 09/14/2022 1:32 PM EST FASTING:NO FASTING: NO [facility] [employer] LAB BLOOD ORDERABLES Final Re sult [facility] [address] [facility], [place] [address] [employer] [address] [facility], ([address]) [place] [address] from Last 3 Months or Most Recently Relevant to Health Maintenance Insurance [facility] Care Teams Specimen Boss Relationship Specialty Start Date End Date Abbi Saha FNP [address] [place] [phone] PCP - General Family Medicine 04/01/23 Noemi Felicia 05/08/24
--- OUTSIDE RECORDS SUMMARY | 2025-01-24 09:24 | XMS_ITS ---
Author Name Dineshmikaela TSERING, RN, RD, [place] Address [address] [place] [address] Phone [phone] [facility] Care Team Providers Care Sanitary Chemist Name Role Phone Adeola Campuzano Unavailable [phone] Unavailable Unavailable Unavailable [facility] Unavailable TYLER LARES Unavailable [phone] [facility] Unavailable [facility] Unavailable [phone] Reason for Referral Not Available Allergies, adverse [...] 2023-01-05 No Data Available [employer] Plus [id number] Miscellaneous TEST BLOOD SUGAR TWICE DAILY 2022-08-20 [...] 5 mg Cap TAKE 1 CAPSULE BY [facility] AT BEDTIME 2023-06-15 No Data Available Problem List Problem Status Onset Date Resolved Date Synopsis Hypertension Active 2023-09-28 N/A RX: Losartan , Nifedipine Encourage low sodium diet. Encouraged daily blood pressure checks and tracking. Instructed patient to notify CB or PCP if blood pressure >140/90 or <90/50.Continue to follow up with PCP. BPH (benign prostatic hyperplasia) Active 2023-09-28 N/A RX: Tamsulosin, Terazosin Continue to follow up with Urology and PCP. Type 2 diabetes mellitus with hyperlipidemia Active 2023-09-28 N/A Hemoglobin A 1C 8.3% (08/26/2023 Outside Care)- Januvia started at that time. Diabetes: Farxiga, Januvia, MetfrominHyperlipidemia: Atorvastatin Advised on diabetic diet including avoiding foods with high sugar content, high carbohydrates or starchy foods like rice, potatoes. Advised to eat smaller portions with healthy snacksContinue to follow up with PCP. Other problems related to medical facilities and other health care Active 2023-09-28 N/A CONTING ENCY PLANUTIMember to call for the following symptoms: Pain with urinating/ Confusion or change in behavior/ Blood in urine/ Pain in lower bellyPlanned intervention: Encourage increased fluid intakeCiprofloxacin 500mg BID [id number] Tylenol for pain or fever Encounters Encounters Type Facility Date of Service Diagnosis/Co mplaint Unlisted special service; to be used for medical record reviews and reporting CPTII codes (1111F, etc) [facility], ([place]) 05/27/2024 Encounter for other specifie d aftercare Unlisted special service; to be used for medical record reviews and reporting CPTII codes (1111F, etc) [facility], ([place]) 05/27/2024 Social History Sex Male History of Procedures Procedures Service Procedure code Service date Servicing provider Phone# Unlisted special service; to be used for medical record reviews and reporting CPTII codes (1111F, etc) [address] 2024-05-28 No Data Available No Data Availa ble Medications prescribed in hospital were reviewed and reconciled against what they were taking prior to admission during today's visit. (1111F) 1111F 2024-05-28 No Data Available No Data Availa ble Functional Status No Information Mental Status No Information Assessments Not Available Plan of Care Not Available
--- OUTSIDE RECORDS SUMMARY | 2025-01-24 09:24 | XMS_ITS | Clinical Summary ---
Author Organization [facility] Address [address] [facility] [address] [place] [address] Phone Care Team Providers Care Manager Merchandising Name Role Phone Maria A Abbi Primary Care Provider [phone] Allergies No known active allergies Medications Multiple [...] Documentation Only [facility] [address] [address] Lashay Leone 11/22/2024 11:45 AM EDT Office Visit [facility] [address] [address] Rosanna Zamudio ARNP Hypertensive disorder (Primary Dx); [...] of the [facility] [address] [address] Rosanna Zamudio ARNP [address] [address] Health Maintenance Due Date Last [...] 10.0 8.7 - 10.7 mg/dL eGFR Non-Afr Nauruan >60 11/23/2024 us Historical Provider LAB BLOOD ORDERABLES Kaylin l Result from Last 3 Months Insurance [facility] Medicare Medicaid [place] Care Teams Manager Merchandising Relationship Specialty Start Date End Date [facility] [address] [place] [address] PCP - General 11/22/24
--- OUTSIDE RECORDS SUMMARY | 2025-01-24 09:24 | XMS_ITS | Clinical Summary ---
Author Organization [facility] Address [address] [place] [address] Phone Care Team Providers Care Executive Assistant To President Name Role Phone Unavailable Primary Care Provider [...]
[2025-01-24 10:56] LABS: Prostate Specific Antigen 1.91 ng/mL (<0.05-4.0)
== END 2025-01-24 09:07 | disposition home or self-care (01) ==
LOC: HO.LAB 09:06
PROVIDERS: PCP Registered Nurse; Visit Provider Nurse Practitioner Family
DX: R39.14 Feeling of incomplete bladder emptying (principal); N40.1 Benign prostatic hyperplasia with lower urinary tract symptoms; R33.8 Other retention of urine; R35.1 Nocturia; N52.9 Male erectile dysfunction, unspecified; Z12.5 Encounter for screening for malignant neoplasm of prostate; R33.9 Retention of urine, unspecified; Z79.899 Other long term (current) drug therapy; Z13.89 Encounter for screening for other disorder
CPT/HCPCS: 36415; 51798; 81003; 84153; 99212

== ENCOUNTER 2025-01-24 10:06 | Outpatient (AMB) | payer OTHER, SELFPAY ==
--- NOTE | 2025-01-24 10:34 | A.OFFVIS_ITS ---
Intake Visit Reasons: 1y/PSA/PVR Intake Note: Patient presents today for follow up on: incomplete bladder emptying,erectile dysfunction, and psa lab results PSA: pending Urology Medication:Terazosin, Sildenafil Antibiotic Allergy:none Blood Thinner:aspirin PVR: 34ml's Lead Accountant Required: Yes Lead Accountant Services: Lead Accountant Offered & Declined Accompanied by: Unknown Allergies No Known Allergies (No Known Allergies*) Allergy (Verified 01/24/25 21:37) Medication List - Last Reconciled 01/24/25 by KAREN Diaz acetaminophen 650 mg PO Q6H PRN amoxicillin-pot clavulanate 875-125 mg 1 tab PO BID atorvastatin 10 mg PO DAILY blood sugar diagnostic As directed cholecalciferol (vitamin D3) 50 mcg PO DAILY dapagliflozin propanediol (Farxiga) 10 mg PO DAILY fluticasone propionate 50 mcg/actuation 1 spray intranasal BID lancets As directed pihtql-vaspolwg-itnhsxu 24,000-76,000 -120,000 unit (Creon) 2 caps PO TID 30 days losartan 25 mg PO BEDTIME magnesium oxide 400 mg PO DAILY metformin 1,000 mg PO BID multivitamin 1 tab PO DAILY nifedipine ER 30 mg PO BEDTIME omeprazole 20 mg PO BID@0630,1630 psyllium husk (Metamucil) 1 tsp PO DAILY sildenafil (Viagra) 100 mg PO DAILY PRN 90 days sitagliptin phosphate (Januvia) 25 mg PO DAILY terazosin 5 mg PO BEDTIME 90 days trazodone 50 mg PO BEDTIME walker Folding Front wheeled walker with seat HPI Comments Details: Lei is a pleasant 79-year-old Armenian-speaking male patient of Dr. Torrez who was accompanied by his granddaughter at today's office visit. He has a past medical history of left-sided hydrocele, cataracts, diabetes, ED, non-small cell lung cancer, hyperlipidemia, and hypertension. He presents to the office today for follow-up of his hydrocele and lower urinary tract symptoms. In discussion with the patient and his granddaughter today he discusses his recent diagnosis of non-small cell lung cancer and has been undergoing treatment. He currently denies any bothersome urinary issues or concerns. He reports compliance with terazosin as prescribed. In office urinalysis results reviewed with the patient today. PVR 34 mL. Recent PSA results reviewed with the patient today as noted and trended below. Previous workup has included a retroperitoneal ultrasound 06/10 noting right kidney with no lesions, and or hydronephrosis. Left kidney with question left lower pole calcified vessel. No definite renal calculi. 1.6 x 1.9 x 1.4 cm mid pole cyst. No hydronephrosis. The bladder is well distended and normal. Bilateral ureteral jets are demonstrated. Pre void bladder volume is approximately 220 mL. Postvoid bladder volume is approximately 180 mL. Prostate measures approximately 18 mL. He has a history of a large left hydrocele however will continue with surveillance monitoring as he does not find this bothersome in does not wish to undergo in office drainage or surgical intervention. When asked he denies hematuria, dysuria, foul-smelling urine, changes to urinary stream, flank pain, fever, and or chills. He otherwise denies any other bothersome issues or concerns at this time. PSAs: 06/10 2.3, 02/08 1.1, 08/12 1.9 [facility] Medical History GERD (gastroesophageal reflux disease) Exocrine pancreatic insufficiency Abdominal bloating Renal cyst Loose stools History of revision of total replacement of right knee joint Lung mass High cholesterol Anemia Pleural hemorrhage Diverticulosis Hyponatremia Acute hyponatremia Colon cancer screening Erectile dysfunction Gastritis COVID-19 virus infection Hydrocele Cataract Hypercholesteremia Diabetes BPH (benign prostatic hyperplasia) Hypertension Surgical History History of bilateral knee replacement Visit for wound check S/P chest tube placement Hx of colonoscopy History of prostate surgery Family History Father Diabetes Mother Diabetes Uterus cancer Mother Cancer Social History Household Members: Spouse Housing: Apartment Housing Other:: housing apartment Are you a primary intensive care unit nurse to a significant other at home: No Do you presently have visiting nurse or other home services: No Alcohol intake: never Comment: camera placed as pt is impulsive, attempts to get OOB. Hx falls recently Patient Tobacco Use Status: Never used Tobacco service: No Current occupational status: retired Current occupation: right handed Gender identity: Male Review of Systems Eyes Reports as per [facility] ENT Reports no additional complaints Card Reports as per [facility] Resp Reports as per HPI GI Reports as per HPI Reports as per HPI Neuro Reports no additional complaints Psych Reports no additional complaints Endo Reports as per HPI Physical Exam Const General: cooperative, comfortable, no acute distress, well developed, alert and awake Orientation/consciousness: patient oriented x3 Limitations: wheelchair HEENT Head: Yes normal to inspection, Yes normocephalic and Yes atraumatic Ears: hearing grossly normal bilaterally Eyes General: appearance normal, both eyes and all related structures Neck Neck: Yes normal visual inspection and Yes trachea midline Chest Chest palpation & inspection: normal inspection of the chest Resp Effort & Inspection: normal respiratory effort and able to speak in complete sentences Cardio Rate: regular rate GI Inspection: Yes normal to inspection General: Yes no CVA tenderness Scrotum: Hydrocele present (large) on the left Back/Spine/Pelvis Back: no CVA tenderness Skin General skin exam: no rashes or lesions noted Neuro General: patient oriented x3 Extrem General: Yes normal to inspection Psych Appearance: grossly normal and well kempt Mental Status: mental status grossly normal Speech and movement: Normal speech and movement present and Clear speech present Affect: normal affect Attitude: cooperative Thought process: Normal thought process present Thought content: Normal thought content present Insight: Fair insight present (Psych) Judgement: Fair judgement present (Psych) Office Procedures Post Void Residual Post Residual Void Post Void Residual (PVR): 34 [id number] Void Residual by ultrasound Results AMB Urinalysis, Automated UA Leukoctes 0 Mariluz/uL Last Edit by CELSO Siegel on 01/24/25 11:00 UA Nitrite Last Edit by CELSO Siegel on 01/24/25 11:00 UA Urobilinogen 0.2 mg/dL Last Edit by CELSO Siegel on 01/24/25 11:0 0 UA Protein 0 mg/dL Last Edit by CELSO Siegel on 01/24/25 11:00 UA pH 6.0 Last Edit by Lance Feldman [facility] on 01/24/25 11:00 UA Blood 0 Dharmesh/uL Last Edit by Lance Feldman [facility] on 01/24/25 11:00 UA Specific [place] 1.015 Last Edit by Lance Feldman [facility] on 01/24/25 11: 00 UA Ketone Last Edit by Lance Feldman [facility] on 01/24/25 11:00 UA Bilirubin 0 mg/dL Last Edit by Lance Feldman [facility] on 01/24/25 11:00 UA Glucose 1000 mg/dL Last Edit by Lance Feldman [facility] on 01/24/25 11:00 Results Reviewed Results Reviewed: Laboratory Last Values Urine pH (Auto) 6.0 01/24/25 10:59 Specific [place] (Auto) 1.015 01/24/25 10:59 Urine Protein (Auto) 0 mg/dL 01/24/25 10:59 Glucose (UA)(Auto) 1000 mg/dL 01/24/25 10:59 Urine Blood (Auto) 0 Dharmesh/uL 01/24/25 10:59 Urine Bilirubin (Auto) 0 mg/dL 01/24/25 10:59 Urine Urobilinogen (Auto) 0.2 mg/dL 01/24/25 10:59 Leukocyte Esterase (Auto) 0 Mariluz/uL 01/24/25 10:59 Assessment & Plan Assessment & Plan (1) Nocturia: Code(s): R35.1 - Nocturia Category: Medical (2) Incomplete bladder emptying: Code(s): R33.9 - Retention of urine, unspecified Category: Medical Plan In office urinalysis results reviewed with the patient today; as noted above. PVR 34 mL. Recent PSA results reviewed with the patient today; as noted above. He currently denies any bothersome urinary issues or concerns. He reports be happy with current voiding parameters. Will continue with surveillance monitoring. Continue terazosin 5 mg at bedtime as discussed and prescribed Will obtain PSA in 1 year. Follow-up in 1 year with PSA and PVR; or sooner with any issues, concerns, and or questions. Orders: Orders AMB Urinalysis Automated Today Z13.9 - Encounter for screening, unspecified AMB Post Void Residual by ultrasound Today R33.9 - Retention of urine, unspecified Prostate Specific Antigen 1 Year R33.9 - Retention of urine, unspecified, R35.1 - Nocturia Medications: Discontinued sildenafil (Viagra) administer 30 minutes to 4 hours before activity BIN [id number] [facility] Group [address] Discontinued Reason: Patient no longer taking 100 mg PO DAILY 90 days PRN 20 tabs 3RF erectile dysfunction N52.9 - Male erectile dysfunction, unspecified Patient Instructions: The patient had an opportunity to ask questions regarding the treatment plan. All questions were answered. Physical exam, labs, and imaging were discussed and reviewed in detail. As well as risks, benefits, and discussion of treatment choices. No major barriers to understanding were identified. The patient expressed understanding and agreement with the above treatment plan. The patient was made aware they should contact our office by phone for worsening of their current condition, the appearance of new symptoms, or with any questions or concerns. Compliance is encouraged with any medications and follow up testing that is ordered. It is a privilege to be allowed the opportunity to participate in? your urological care.? Again, if you have any questions or concerns If you have any questions or concerns please do not hesitate to contact me. The office is [phone]. This note is constructed using voice recognition software. While every effort has been made to ensure accuracy metallurgist helper errors may have been included. Yours sincerely, KAREN Diaz Coding Level of Care Code Est Pt Level 3 (38833) Complex EM visit Add On G2211 Diagnoses Nocturia R35.1 Incomplete bladder emptying R33.9 CPT Codes Post Residual Void - PVR CPT Code: 29898-Aipn Void Residual by ultrasound ([id number])
== END 2025-01-24 11:24 | disposition home or self-care (01) ==
LOC: HO.HUSH 10:07
PROVIDERS: PCP Registered Nurse; Visit Provider Nurse Practitioner Family
DX: R35.1 Nocturia (principal); R33.9 Retention of urine, unspecified; Z13.9 Encounter for screening, unspecified
CPT/HCPCS: 99213; G2211

== ENCOUNTER 2025-04-04 10:17 | Observation (INO) | payer OTHER, SELFPAY ==
[2025-04-04] VITALS (9 sets, daily range): BP systolic 115–197; BP diastolic 62–88; PULSE 69–89; RESP 14–20; TEMP 34.7–36.4; O2SAT 94–100; BMI 24.2; BMI 24.6
--- NOTE | ~2025-04-04 | US_ITS ---
EXAMINATION: US SCROTUM HISTORY: Worsening scrotal edema and pain. COMPARISON: There are no prior studies available for comparison. FINDINGS: Real-time grayscale ultrasound imaging of the scrotum was performed. RIGHT TESTICLE: The right testis measures 3.8 x 2.5 x 2.3 cm and demonstrates normal homogeneous echotexture. No masses are seen. The right testis demonstrates normal color Doppler flow. RIGHT EPIDIDYMIS: The right epididymal head is unremarkable. The remainder of the epididymis is not identified. LEFT TESTICLE: The left testis measures 4.4 x 2.3 x 4.2 cm and demonstrates normal homogeneous echotexture. There is a 5 mm testicular cyst. No solid mass is identified. The left testis demonstrates normal color Doppler flow. LEFT EPIDIDYMIS: The left epididymal head is unremarkable. The remainder of the epididymis is not identified. VARICOCELE: None. HYDROCELE: There is a small right hydrocele. There is a large complex left hydrocele containing numerous internal echoes, measuring approximately 12.0 x 7.3 x 6.9 cm, for an estimated volume of 317 mL. OTHER COMMENTS: None. US/US scrotum IMPRESSION: Large complex left hydrocele. Small right hydrocele. Electronically signed by: Jerzy Mosqueda MD 04/05/2025 08:13 AM EDT
--- NOTE | ~2025-04-04 | CT_ITS ---
EXAMINATION: CT HEAD WITHOUT CONTRAST CLINICAL INFORMATION: syncope COMPARISON: January 05, 2025. TECHNIQUE: Contiguous axial imaging was performed from the skull base to vertex without intravenous administration of contrast. This CT examination was performed using dose optimization techniques as appropriate, variously including the following: *Automated exposure control *Adjustment of mA and/or kV according to patient size (this includes techniques or standardized protocols for targeted exams where dose is matched to indication/reason for exam; i.e. extremities or head) *Use of iterative reconstruction technique DLP: 704 mGy-cm FINDINGS: No acute cortical disruption in the bony calvarium or the skull base. No acute intracranial hemorrhage, mass effect, midline shift, hydrocephalus or herniation. Bilateral multifocal patchy deep periventricular white matter hypodensities involving centrum semiovale and ennis radiata. Fajardo-white matter differentiation is normal. Prominence of the extra-axial Posterior cranial fossa contents demonstrated no acute hemorrhage or gross mass effect. Normal position of the cerebellar tonsils. Calcified plaques in the V4 segments of the vertebral arteries cavernous supracavernous both ICAs. Vascular calcifications in the vessels of the soft tissue scalp. No air-fluid levels in the paranasal sinuses. Mucosal thickening, right maxillary sinus. Tympanic cavities and mastoid cells are aerated. No hematoma in the intraconal or extraconal compartments of the orbits. Status post intraocular lens surgery, left eyeball. CT/CT head/brain wo IV con IMPRESSION: No acute fracture, bony calvarium. No acute intracranial hemorrhage. Probable small vessel occlusive disease. Atherosclerosis disease. Electronically signed by: Oliver Martin MD 04/04/2025 12:09 PM EDT
--- NOTE | ~2025-04-04 | XR_ITS ---
EXAMINATION: XR CHEST 2 VIEWS HISTORY: syncope COMPARISON: Comparison is made with the prior examination dated 10/25/2024. FINDINGS: AP and lateral views of the chest are submitted. There is new elevation of the posterior aspect of the left hemidiaphragm. This could represent a hernia. The lungs are expanded and clear. There is no pleural effusion, pneumothorax, or pulmonary vascular congestion. The heart is normal in size. There is degenerative disc disease of the spine. XR/XR chest 2V IMPRESSION: New elevation of the posterior aspect of the left hemidiaphragm which could represent a hernia. The lungs are clear. Electronically signed by: Jerzy Mosqueda MD 04/04/2025 11:29 AM EDT
--- NOTE | ~2025-04-04 | CT_ITS ---
EXAMINATION: CT CERVICAL SPINE WITHOUT CONTRAST CLINICAL INFORMATION: Syncope COMPARISON: None available. TECHNIQUE: Contiguous axial images through the cervical spine using 3 mm collimation with bone and soft tissue algorithm. Sagittal and coronal reformatted images acquired. DLP: 268.[address] examination was performed using dose optimization techniques as appropriate, variously including the following: *Automated exposure control *Adjustment of mA and/or kV according to patient size (this includes techniques or standardized protocols for targeted exams where dose is matched to indication/reason for exam; i.e. extremities or head) *Use of iterative reconstruction technique FINDINGS: Craniocervical junction is intact with normal alignment between the occipital condyles and lateral masses of C1. C1 is intact. C2 is intact. Left facet joint hypertrophy. C3 is intact. Right facet joint hypertrophy. C4 is intact. Bilateral, right greater than left facet joint hypertrophy. C5 is intact. Right facet joint hypertrophy. C6 is intact. Left facet joint disease. C7 is intact. No prevertebral compartment hematoma. Marginal osteophyte formation and endplate sclerosis subchondral cyst formation and decreased intervertebral disc height at C5-6 and to a lesser extent C6-7 and C4-5 and C5-4 levels. Calcifications of the ligamentum flavum at C2-3, C3-4, C5-6 and to a lesser extent C6-7. No gross malalignment between the vertebral bodies or the facet joints. Calcified plaques in the carotic arteries. The thyroid gland appears small. Calcified plaques in the cavernous segments of the ICAs. Bilateral apical lung scarring. Tympanic cavities and mastoid air cells are aerated. CT/CT cervical spine wo IV con IMPRESSION: Multilevel cervical spondylosis pronounced at C5-6 and to a lesser extent C6-7 C4-5 and C3-4 level without acute fracture or trauma-related listhesis. Atherosclerosis disease, carotid arteries. Fleischner guidelines were followed. Electronically signed by: Oliver Martin MD 04/04/2025 12:03 PM EDT
--- NOTE | 2025-04-04 10:19 | ECG_ITS ---
Test Reason : CHEST PAIN Blood Pressure : */* mmHG Vent. Rate : 75 BPM Atrial Rate : 75 BPM P-R Int : 150 ms QRS Dur : 130 ms QT Int : 396 ms P-R-T Axes : 27 -32 5 degrees QTcB Int : 442 ms Normal sinus rhythm Left axis deviation Right bundle branch block Abnormal ECG When compared with ECG of 05-Jan-2025 15:01, No significant change was found Referred By: Generic ED Physician Electronically Signed By: MORENO TANNER
[2025-04-04 10:58] LABS: Hematocrit 38.0 % (42.0-52.0); Hemoglobin 12.9 g/dl (14.0-18.0); Imm Gran Abs Auto 0.06 X10*3/uL (0.00-0.03); Imm Gran Pct Auto 1.1 % (0.0-0.4); Lymphocytes Absolute Auto 0.6 X10*3/uL (1.2-4.9); MANUAL DIFF FLAG NO; Mean Corpuscular HGB Conc 33.9 g/dl (31.0-36.0); Mean Corpuscular Hemoglobin 29.8 pg (27.0-33.0); Mean Corpuscular Volume 87.8 fL (80.0-98.0); NRBC Abs Auto 0.000 X10*3/uL (0.0-0.012); NRBC Pct Auto 0.0 /100WBC (0.0-0.2); Platelet Count 246 X10*3/uL (160-400); Red Blood Count 4.33 X10*6/uL (4.60-5.80); White Blood Count 5.6 X10*3/uL (4.8-10.8)
[2025-04-04 11:06] LABS: COVID-19 Test Negative (Negative); IDNOW Serial# 58CA691E
[2025-04-04 11:11] LABS: IDNOW Serial# 55D5AD1C; Influenza B2 Negative (Negative)
--- NOTE | 2025-04-04 11:14 | PC.NURSE ---
Provider at bedside, c-collar cleared by provider
--- NOTE | 2025-04-04 11:17 | ED.CHESTPAIN ---
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 Clark HPI narrative: this is a 79-year-old male PMHx non-insulin dependent DM, anemia, HTN, HLD, BPH presented for evaluation after having a brief syncopal episode witnessed by his at home today, patient was going to take a shower then he sat down felt generalized weakness told his he is going to pass, patient dropped his head and neck down and became unresponsive for a few sec that falling into the ground, patient has no memory of the event but remember before passing out he felt generalized weakness and chest pain was unable to to give detailed history of the chest pain, patient was started on new chemotherapy medication. initial blood sugar by EMS was 118 patient found to be hypotensive initially by EMS SBP is 80s in the emergency department patient had normal blood pressure but found to be slightly hypothermic. Related Data Home Medications ?Medication ?Instructions ?Recorded ?Confirmed atorvastatin 10 mg tablet 10 mg PO DAILY 05/08/20 04/04/25 blood sugar diagnostic #10 ea 10/04/20 01/24/25 lancets 33 gauge #100 ea 10/04/20 01/24/25 metformin 1,000 mg tablet 1,000 mg PO BID 10/04/20 01/24/25 multivitamin 1 tab PO DAILY 10/04/20 04/04/25 dapagliflozin propanediol 10 mg 10 mg PO DAILY 10/09/21 04/04/25 tablet (Farxiga) acetaminophen 325 mg tablet 650 mg PO Q6H PRN Pain 04/29/24 04/04/25 omeprazole 20 mg capsule,delayed 20 mg PO BID@0630,1630 04/29/24 04/04/25 release psyllium husk 3.4 gram/5.4 gram 1 tsp PO DAILY 04/29/24 04/04/25 oral powder (Metamucil) Previous Rx's ?Medication ?Instructions ?Recorded walker #1 ea 04/30/20 xuyyrr-kfbdndgu-npzwdix 2 cap PO TID 30 days #180 caps 11/01/24 24,000-76,000-120,000 unit capsule,delayed rel (Creon) terazosin 5 mg capsule 5 mg PO BEDTIME 90 days #90 caps 02/21/25 trazodone 50 mg tablet 50 mg PO BEDTIME #30 tabs 03/01/25 magnesium oxide 400 mg PO DAILY #30 caps 03/22/25 dabrafenib 75 mg capsule 150 mg (2 x 75 mg) PO Q12H #120 03/23/25 caps trametinib 2 mg tablet (Mekinist) 2 mg PO DAILY #30 tabs 03/26/25 famotidine 20 mg tablet (Pepcid) 20 mg PO DAILY #30 tabs 03/30/25 ondansetron 8 mg disintegrating 8 mg PO Q8H PRN Nausea #30 tabs 03/30/25 tablet Allergies Allergy/AdvReac Type Severity Reaction Status Date / Time No Known Allergies (No Known Allergy Verified 04/04/25 10:36 Allergies*) Review of Systems Review of Systems: All other systems are reviewed and are negative Constitutional: Reports as per HPI and Reports no additional constitutional complaints Eyes: Reports as per HPI and Reports no additional eye complaints Reports system reviewed and no additional complaints, except as documented Cardiovascular: Reports as per HPI and Reports no additional cardiovascular complaints Respiratory: Reports as per HPI and Reports no additional respiratory complaints Gastrointestinal: Reports as per HPI and Reports no additional gastrointestinal complaints Genitourinary: Reports no additional female genitourinary complaints Musculoskeletal: Reports no additional musculoskeletal complaints Skin/Breast: Reports system reviewed and no additional complaints, except as docu Psychiatric: Reports no additional psychiatric complaints Endocrine: Reports no additional endocrine complaints Hematologic/Lymphatic: Reports no additional hematologic/lymphatic complaints Allergic/Immunologic: Reports no additional allergic/immunologic complaints Reports system reviewed and no additional complaints, except as documented and Reports Abnormal speech present [facility] Past Medical History Medical History GERD (gastroesophageal reflux disease) Exocrine pancreatic insufficiency Abdominal bloating Renal cyst Loose stools History of revision of total replacement of right knee joint Lung mass High cholesterol Anemia Pleural hemorrhage Diverticulosis Hyponatremia Acute hyponatremia Colon cancer screening Erectile dysfunction Gastritis COVID-19 virus infection Hydrocele Cataract Hypercholesteremia Diabetes BPH (benign prostatic hyperplasia) Hypertension Surgical History History of bilateral knee replacement Visit for wound check S/P chest tube placement Hx of colonoscopy History of prostate surgery Family History Family History Father Diabetes Mother Diabetes Uterus cancer Mother Cancer Social History Social History Household Members: Spouse Housing: Apartment Housing Other:: housing apartment Are you a primary rn intensive care unit to a significant other at home: No Do you presently have visiting nurse or other home services: No Alcohol intake: never Comment: camera placed as pt is impulsive, attempts to get OOB. Hx falls recently Patient Tobacco Use Status: Never used Tobacco Smoked in Last 30 Days: No Use of substances other than those prescribed or required for medical reasons: No Advance Directives: No Advance Directives Information Provided: Yes Do you have a plan to hurt others: No Plan service: No Current occupational status: retired Current occupation: right handed Gender identity: Male Physical Exam Vital Signs: Vital Signs: Last Vital Signs Temp 94.5 F L 04/04/25 10:22 Pulse 89 04/04/25 11:52 Resp 14 04/04/25 10:22 BP 121/70 04/04/25 11:52 Pulse Ox 100 04/04/25 10:22 O2 Del Method Room Air 04/04/25 10:22 BMI result Body Mass Index 24.2 Vital signs have been reviewed and appear to be correct. Blood pressure elevated. Heart rate normal. Respiratory rate normal. hypothermic, Oxygen saturation normal. Appearance: Alert. Oriented X3. No acute distress. Head: Normal external exam. Normocephalic. Atraumatic. No Rivera signs noted. No raccoon eyes noted Eyes: PERRLA. EOMI. Conjunctiva and sclera normal. Eyelids normal. ENT: TM's Normal. Pharynx normal. Uvula midline. Moist mucous membranes. No trismus noted. No drooling noted. No muffled voice noted. Neck: Normal inspection. Neck supple. FROM. No adenopathy. Thyroid Normal. No meningeal signs. No neck mass noted. CVS: Normal heart rate and rhythm. Heart sound normal. No murmurs noted. Pulses normal throughout. Respiratory: No respiratory distress. Painless inspiration. Breath sounds normal. No wheezes/rales/rhonchi noted. Chest nontender. No accessory muscle usage noted or decreased air movement noted. Abdomen: Soft and nontender. Bowel sounds normal in all 4 quadrants. No distention noted. No organomegaly noted. No visible injury noted. Back: No CVA tenderness. Full range of motion noted. Skin: Skin warm and dry. Normal skin color. Normal skin turgor. No rashes/lesions/lacerations noted. Extremities: No lower extremity edema. Extremities exhibit normal range of motion. Extremities nontender. Neuro: Oriented X 3. Cranial nerve exam: II-XII are grossly intact No motor deficit. No sensory deficit. Reflexes normal. Course Reevaluation(s) Reevaluation #1: 79-year-old male found to be hypothermic initially was hypotensive by EMS his blood pressure has been normal while he he is in the ED. Patient is hypothermic patient was started on Genoveva Hugger blanket to raise his temperature, can not find source of infection at this point patient is not septic. Time: 12:40 Reevaluation #2: Temperature is 97.6 degrees will discontinue bear Hugger blanket. Time: 13:06 Medications Administered Discontinued Medications Generic Name Dose Route Start Last Admin Trade Name Freq PRN Reason Stop Dose Admin Sodium Chloride 1,000 mls @ 999 mls/hr 04/04/25 11:16 04/04/25 12:02 Ns IV 04/04/25 12:16 999 mls/hr .Q1H1M ONE Administration Medical Decision Making Differential Diagnosis Differential Diagnoses: The differential diagnosis associated with the presentation includes ( syncope, pneumonia, pneumothorax, UTI, hypothermia, hypothyroidism, electrolyte derangement, severe anemia, hypotension.) Admission/Observation Consideration of admission/observation: Escalation of care including admission/observation considered Consult Healthcare Provider Management of the patient was discussed with: Hospitalist (Yahaira) Lab Data MDM Lab Attestation statement: I reviewed the patient's lab results. 04/04/25 10:47 04/04/25 10:46 Labs: Lab Results 04/04/25 04/04/25 04/04/25 Range/Units 10:43 10:46 10:47 WBC 5.6 (4.8-10.8) X10*3/uL RBC 4.33 L (4.60-5.80) X10*6/uL Hgb 12.9 L (14.0-18.0) g/dl Hct 38.0 L (42.0-52.0) % MCV 87.8 (80.0-98.0) fL MCH 29.8 (27.0-33.0) pg MCHC 33.9 (31.0-36.0) g/dl RDW 13.3 (11.0-16.0) % Plt Count 246 D (160-400) X10*3/uL MPV 8.9 L (9.4-12.4) fL Immature Gran % (Auto) 1.1 H (0.0-0.4) % Neut % (Auto) 76.4 H (45-73) % Lymph % (Auto) 11.0 L (20-40) % Falls % (Auto) 10.6 (2-11) % Eos % (Auto) 0.2 (0-4) % Baso % (Auto) 0.7 (0-2) % Lymph # (Auto) 0.6 L (1.2-4.9) X10*3/uL Falls # (Auto) 0.6 (0.1-1.2) X10*3/uL Eos # (Auto) 0.0 (0.0-0.4) X10*3/uL Baso # (Auto) 0.0 (0.0-0.2) X10*3/uL Abs Immat Gran (auto) 0.06 H (0.00-0.03) X10*3/uL Absolute Neuts (auto) 4.3 (2.0-8.3) x10*3/uL Absolute Nucleated RBC 0.000 (0.0-0.012) X10*3/uL Nucleated RBC % (auto) 0.0 (0.0-0.2) /100WBC Sodium 133 L (135-145) mmol/L Potassium 4.3 (3.3-5.1) mmol/L Chloride 103 (96-108) mmol/L Carbon Dioxide 24 (22-29) mmol/L Anion Gap 10 L (12-20) BUN 27 H (9-16) mg/dL Creatinine 0.80 (0.5-1.4) mg/dL Estim Creat Clear Calc 58.7 Estimated GFR > 60 Random Glucose 113 (60-115) mg/dL Lactic Acid 1.3 (0.5-2.0) mmol/L Calcium 9.4 (8.4-10.2) mg/dL Magnesium 1.6 (1.6-2.6) mg/dL Total Bilirubin 0.4 (0.0-1.0) mg/dL AST 18 (5-37) U/L ALT 7 (0-40) U/L Alkaline Phosphatase 111 (39-117) U/L Troponin I High Sens 8.5 D (<3.5-35.0) ng/L Total Protein 6.9 (6.5-8.0) g/dL Albumin 4.1 (3.5-5.0) g/dL Urine Color Urine Appearance Urine pH (5.0-9.0) Ur Specific [place] (1.005-1.025) Urine Protein (Neg-Trace) mg/dL Urine Glucose (UA) (Negative) mg/dL Urine Ketones (Negative) mg/dL Urine Blood (Negative) Urine Nitrite (Negative) Ur Leukocyte Esterase (Negative) Urine RBC (0-2) /HPF Urine WBC (0-5) /HPF Ur Squamous Epith Cells (0-2) /HPF Urine Bacteria (None Seen) Hyaline Casts (0-2) /LPF COVID-19 (HERSON) Negative (Negative) COVID-19 Clin Com See Note Influenza Type A (MICHELLE) Negative (Negative) Influenza Type B (MICHELLE) Negative (Negative) Influenza A & B Note See Note 04/04/25 Range/Units 12:15 WBC (4.8-10.8) X10*3/uL RBC (4.60-5.80) X10*6/uL Hgb (14.0-18.0) g/dl Hct (42.0-52.0) % MCV (80.0-98.0) fL MCH (27.0-33.0) pg MCHC (31.0-36.0) g/dl RDW (11.0-16.0) % Plt Count (160-400) X10*3/uL MPV (9.4-12.4) fL Immature Gran % (Auto) (0.0-0.4) % Neut % (Auto) (45-73) % Lymph % (Auto) (20-40) % Falls % (Auto) (2-11) % Eos % (Auto) (0-4) % Baso % (Auto) (0-2) % Lymph # (Auto) (1.2-4.9) X10*3/uL Falls # (Auto) (0.1-1.2) X10*3/uL Eos # (Auto) (0.0-0.4) X10*3/uL Baso # (Auto) (0.0-0.2) X10*3/uL Abs Immat Gran (auto) (0.00-0.03) X10*3/uL Absolute Neuts (auto) (2.0-8.3) x10*3/uL Absolute Nucleated RBC (0.0-0.012) X10*3/uL Nucleated RBC % (auto) (0.0-0.2) /100WBC Sodium (135-145) mmol/L Potassium (3.3-5.1) mmol/L Chloride (96-108) mmol/L Carbon Dioxide (22-29) mmol/L Anion Gap (12-20) BUN (9-16) mg/dL Creatinine (0.5-1.4) mg/dL Estim Creat Clear Calc Estimated GFR Random Glucose (60-115) mg/dL Lactic Acid (0.5-2.0) mmol/L Calcium (8.4-10.2) mg/dL Magnesium (1.6-2.6) mg/dL Total Bilirubin (0.0-1.0) mg/dL AST (5-37) U/L ALT (0-40) U/L Alkaline Phosphatase (39-117) U/L Troponin I High Sens (<3.5-35.0) ng/L Total Protein (6.5-8.0) g/dL Albumin (3.5-5.0) g/dL Urine Color Yellow Urine Appearance Clear Urine pH 5.5 (5.0-9.0) Ur Specific [place] >= 1.030 H (1.005-1.025) Urine Protein Negative (Neg-Trace) mg/dL Urine Glucose (UA) >=1000 H (Negative) mg/dL Urine Ketones Trace (Negative) mg/dL Urine Blood Negative (Negative) Urine Nitrite Negative (Negative) Ur Leukocyte Esterase Negative (Negative) Urine RBC 0-2 (0-2) /HPF Urine WBC 0-5 (0-5) /HPF Ur Squamous Epith Cells 0-2 (0-2) /HPF Urine Bacteria None Seen (None Seen) Hyaline Casts 0-2 (0-2) /LPF COVID-19 (HERSON) (Negative) COVID-19 Clin Com Influenza Type A (MICHELLE) (Negative) Influenza Type B (MICHELLE) (Negative) Influenza A & B Note Independent Interpretation I performed an independent interpretation of an: Plain X-Ray ( Chest: No acute intrathoracic pathology.) and CT Scan ( head/C-spine CT: No acute pathology.) Radiology Impression Discussion of test interpretation with radiology: I have reviewed the radiologist's reading. Chronic Conditions Patient?s care impacted by: Cancer Critical Care Time Critical Care Time Critical Care Time: Yes Total Critical Care Time: 40 Attestation: The patient was critically ill with a high probability of imminent or life-threatening deterioration. I spent greater than 30 minutes of discontinuous time evaluating the patient, delivering critical care at the bedside, discussing evaluating data with consultants. Critical care time does not include time spent performing separately billable procedures or teaching. Time spent performing critical care was 40 minutes. Discharge Plan Discharge Clinical Impression: Syncope and collapse, Hypothermia Patient Disposition: Admitted As Inpatient
[2025-04-04 11:20] LABS: Alanine Aminotransferase 7 U/L (0-40); Albumin Level 4.1 g/dL (3.5-5.0); Alkaline Phosphatase 111 U/L (39-117); Anion Gap 10 (12-20); Aspartate Amino Transferase 18 U/L (5-37); Blood Urea Nitrogen 27 mg/dL (9-16); Calcium 9.4 mg/dL (8.4-10.2); Carbon Dioxide 24 mmol/L (22-29); Chloride 103 mmol/L (96-108); Creatinine Clr Calc Pharmacy 58.7; Estimated Glomerular Filt Rate > 60; Magnesium 1.6 mg/dL (1.6-2.6); Potassium 4.3 mmol/L (3.3-5.1); Sodium 133 mmol/L (135-145); Total Protein 6.9 g/dL (6.5-8.0)
[2025-04-04 11:27] LABS: Troponin-I High Sensitivity 8.5 ng/L (<3.5-35.0)
--- NOTE | 2025-04-04 11:58 | PC.NURSE ---
Initial contact w/ pt, pt noted to be hypothermic, pt placed on Genoveva hugger. Will continue to moniter temp.
--- NOTE | 2025-04-04 12:09 | PHA.MEDREC ---
Addendum entered by Ventura Jason PharmD 04/04/25 13:07: Used claims and oncology note from earlier this month to confirm remaining meds. Original Note: Pharmacy Consult ? Medication Reconciliation Pharmacy has completed the medication reconciliation. Pt not currently admitted, received med list from Noemi GARCIA to confirm some of the medications, will follow up if admitted.
[2025-04-04 12:24] LABS: Appearance Urine Clear; Glucose Urine UA >=1000 mg/dL (Negative); PH 5.5 (5.0-9.0); Specific Gravity - Urine >= 1.030 (1.005-1.025); UMIC TRIGGER UACC YES
--- NOTE | 2025-04-04 13:00 | CA_ITS ---
Transthoracic Echocardiogram Patient (Last, First, Middle): Lei Drew, Gender: Male Date of : 1945 Age: 79 Procedure Date: 04/04/2025 Procedure Type: Transthoracic Echocardiogram Location: ER Height: 157.48 cm Weight: 59.88 kg BSA: 1.60 m2 Heart Rate: bpm BP: 122 / 68 mmHg Juvenile Justice Specialist: TO Referring MD: Yahaira Gloria MD Symptoms: syncope Study Quality: Fair/Contrast ECG Rhythm: Sinus Conclusions: - The left ventricular systolic function is low normal. The calculated ejection fraction is 54% by biplane method. - No obvious valvular pathology seen on this study. Findings Procedure Information Contrast agent, definity, is being given per protocol without apparent complications. Left Ventricle Normal left ventricular cavity size. There is normal left ventricular wall thickness. The left ventricular systolic function is low normal. The calculated ejection fraction is 54% by biplane method. There is no evidence of regional wall motion abnormalities. Diastolic function is normal for age. Right Ventricle Mildly increased right ventricular cavity size. There is normal right ventricular systolic function. Atria Mild biatrial enlargement. Aortic Valve There is a normal trileaflet aortic valve. There is mild calcification of the aortic valve. There is no aortic valve stenosis. Trace to mild aortic regurgitation. Mitral Valve The mitral valve appears normal. There is no mitral valve regurgitation. There is no mitral valve stenosis. Pulmonic Valve The pulmonic valve is likely normal. Tricuspid Valve There is mild tricuspid valve regurgitation. There is no evidence of pulmonary hypertension. Great Vessels The asc aorta is normal in size. Venous The inferior vena cava is normal in size and collapses greater than 50% with inspiration. Pericardium/Pleural There is a trivial pericardial effusion. Prior Study Comparison No significant change compared to prior study dated: 06/26/2024. Recommendations, Care & Conclusions No obvious valvular pathology seen on this study. Measurements 2D Linear Measurements IVSd: 0.99 0.6-0.9/0.6-1.0 cm LVIDd: 4.70 3.9-5.3/4.2-5.9 cm LVIDd Index: 2.94 2.4-3.2/2.2-3.1 cm/m2 LVIDs: 2.62 2.0-3.6 cm LVPWd: 0.77 0.7-1.1 cm LA Diam: 2.80 2.7-3.8/3.0-4.0 cm LAIDs Index: 1.75 1.5-2.3 cm/m2 LV Mass: 172.78 67-162/88-224 g LV Mass Index: 107.99 43-95/49-115 g/m2 LVOT Diam: 2.20 3.0+(-)1.3 cm 2D Systolic Function EF 4C: 55.90 >55% EF 2C: 53.10 >55% EF BiP: 54.30 >55% Mitral Valve MV Pk E: 0.54 MV PK A: 0.43 MV Decel Time: 206.00 E/A: 1.30 E'Lateral: 5.44 E'Medial: 5.22 E/E' Med: 10.40 E/E' Lat: 10.00 PHT: 60.00 MVA PHT: 3.67 Decel Delta: 2.65 Aortic Valve AoV Pk Prabhu: 1.52 AoV Mn Prabhu: 0.98 AoV VTI: 0.28 AoV Pk Grad: 9.00 Aov Mn Grad: 4.00 MIRLANDE Cont.VTI: 2.26 AI Pk Prabhu: 3.64 AI Delta: 2.35 LVOT LVOT Pk Prabhu: 0.86 LVOT Mn Prabhu: 0.56 LVOT VTI: 0.17 LVOT Pk Grad: 3.00 LVOT Mn Grad: 1.00 LVOT Diam: 2.20 LVOT Area: 3.80 Diastolic Function MV Pk E: 0.54 MV Pk A: 0.43 E/A: 1.30 E'Medial: 5.22 E/E' Med: 10.40 E' Laterial: 5.44 E/E' Lat: 10.00 Right Ventricle TAPSE (mm): 27.20 TVS' Prabhu: 14.80 Tricuspid Valve TR Pk Prabhu: 2.06 TR Pk Grad: 17.00 RA Press: 3.00 RVSP: 20.00 Great Vessels Aorta Sinus of Valsalva: 3.67 2.0-3.5 cm Ao Asc: 3.50 2.1-3.4 cm Updated in Other Vendor System with Status of Final Warren Gastelum MD electronically signed on 04/05/2025 11:27:13 AM with status of Final
--- NOTE | 2025-04-04 13:08 | MHC.EVENTN ---
Repeat temp taken, now 97.6, per MD Genoveva Asif d/cass'd
[2025-04-04 13:38] LABS: Thyroid Stimulating Hormone 2.76 uIU/mL (0.32-4.0)
--- OUTSIDE RECORDS SUMMARY | 2025-04-04 13:54 | XMS_ITS ---
Author Name Dineshmikaela TSERING, RN, RD, [place] Address [address] [place] [address] Phone [phone] [facility] Care Team Providers Care Washer Operator Name Role Phone Adeola Campuzano Unavailable [phone] Unavailable Unavailable Unavailable [facility] [place] Unavailable [phone] [address]ES Unavailable [phone] [facility] Unavailable [facility] Unavailable [phone] Reason for Referral Not Available Allergies, adverse [...] 2023-01-05 No Data Available OneTouch Delica Plus [id number] Miscellaneous TEST BLOOD SUGAR TWICE DAILY 2022-08-20 [...] mg Cap TAKE [address] [facility] AT BEDTIME 2023-06-15 No Data [...] intervention: Encourage increased fluid intakeCiprofloxacin 500mg BID [id number] Tylenol for pain or fever Encounters Encounters Type Facility Date of Service Diagnosis/Co mplaint Unlisted special service; to be used for medical record reviews and reporting CPTII codes (1111F, etc) [facility], ([place]) 05/27/2024 Encounter for other specifie d aftercare Unlisted special service; to be used for medical record reviews and reporting CPTII codes (1111F, etc) [facility], ([place]) 05/27/2024 Social History Sex Male History of Procedures Procedures Service Procedure code Service date Servicing provider Phone# Unlisted special service; to be used for medical record reviews and reporting CPTII codes (1111F, etc) 13292 2024-05-28 No Data Available No Data Availa ble Medications prescribed in hospital were reviewed and reconciled against what they were taking prior to admission during today's visit. (1111F) 1111F 2024-05-28 No Data Available No Data Availa ble Functional Status No Information Mental Status No Information Assessments Not Available Plan of Care Not Available
--- OUTSIDE RECORDS SUMMARY | 2025-04-04 13:55 | XMS_ITS | Clinical Summary ---
Author Organization [facility] Address [address] [place] [address] Phone Care Team Providers Care Artists' Model Name Role Phone Maria A Abbi Primary Care Provider [phone] Allergies No known active allergies Medications Multiple [...] [facility] [address] [phone] Rosanna Zamudio ARNP [address] [phone] Health Maintenance Due Date Last Done Comments [...] topic Insurance [facility] Medicare Medicaid [place] Care Teams Artists' Model Relationship Specialty Start Date End Date Abbi Saha [address] [place] [id number] [id number] [facility] 11/22/24
--- OUTSIDE RECORDS SUMMARY | 2025-04-04 13:55 | XMS_ITS | Encounter Summary ---
Author Organization [employer] Address [address] [facility] [place] [address] Care Team Providers Care Airfield Services Officer Name Role Phone Abbi Saha [employer] Primary Care Provider [phone] Encounter Details Date Type Department Care Team (Late st Contact Info) Description 04/04/2025 Orders Only [facility] External Provider, [facility] Social History Tobacco Use Types Packs/Day Years [...] Care Team (Late st Contact Info) Description 04/10/2025 11:00 AM EDT Office Visit [facility] ADULT DENTAL [address] [place], [place] [phone] Cris, Nusrat [address] [place] [address] documented as of this encounter Procedures Procedure Name Priority Date/Time Associated Diagnosis Comments URINALYSIS, COMPLETE, WITH REFLEX TO CULTURE Routine 04/04/2025 12:15 PM EDT URINALYSIS WITH REFLEX MICROSCOPIC Routine 04/04/2025 12:[address] CERVICAL SPINE WO CONTRAST Routine 04/04/2025 11:[address] HEAD WO CONTRAST Routine 04/04/2025 1 1:35 AM EDT XR CHEST 2 VIEWS Routine 04/04/2025 11:2 4 AM EDT documented in this encounter Results * (ABNORMAL) Urinalysis, Complete, with Reflex to Culture (04/04/2025 12:15 PM EDT) Color Urine Yellow [facility] Appearance Urine Clear [facility] PH 5.5 5.0 - 9.0 [facility] Glucose Urine UA >=1000(A) Negative mg/dL [facility] Urine Blood Negative Negative [facility] Specific [place] - Urine >=1.030(H) 1.005 - 1.025 [facility] Urine Protein Negative Neg-Trace mg/dL [facility] Urine Ketones Trace Negative mg/dL [facility] Nitrite Urine Negative Negative [facility] Leukocyte Esterase Urine Negative Negative [facility] RBC Urine 0-2 0 - 2 /HPF [facility] Urine WBC 0-5 0 - 5 /HPF [facility] Urine Squamous Epithelial Cell 0-2 0 - 2 /HPF [facility] Urine Bacteria None Seen None Seen [facility] Hyaline Casts, Urine 0-2 0 - 2 /LPF [facility] 04/04/2025 12:1 5 PM EDT 04/04/2025 12:19 PM EDT Narrative [facility] - 04/04/2025 12:28 PM EDT Urine, Catheterized us Generic External Data Provider LAB URINE ORDERAB LES Final Result [facility] [address] [place] [phone] * (ABNORMAL) Urinalysis w/reflex microscopic (04/04/2025 12:15 PM EDT) Color Urine Yellow [facility] Appearance Urine Clear [facility] PH 5.5 5.0 - 9.0 [facility] Glucose Urine UA >=1000(A) Negative mg/dL [facility] Urine Blood Negative Negative [facility] Specific [place] - Urine >=1.030(H) 1.005 - 1.025 [facility] Urine Protein Negative Neg-Trace mg/dL [facility] Urine Ketones Trace Negative mg/dL [facility] Nitrite Urine Negative Negative [facility] Leukocyte Esterase Urine Negative Negative [facility] 04/04/2025 12:1 5 PM EDT 04/04/2025 12:19 PM EDT Narrative [facility] - 04/04/2025 12:25 PM EDT Urine, Catheterized us Generic External Data Provider LAB URINE ORDERAB LES Final Result [facility] [address] [place] [phone] * CT Head w/o Contrast (04/04/2025 11:35 AM EDT) Anatomical Region Laterality Modality Head, Neck Computed Tomogra phy 04/04/2025 11:3 5 AM EDT Narrative 04/04/2025 12:11 PM EDT [address] [address] [address] Scan Report Signed Patient: Lei Drew MR#: [id number] : 1945 Acct:[id number] Age/Sex: 79 / M ADM Date: 04/04/25 Loc: HO.ED Attending Dr: Ordering Physician: Crescencio Clark MD Date of Service: 04/04/25 Procedure(s): CT head/brain wo IV con Accession Number(s): [id number] cc: Crescencio Clark MD; [facility] Report Number: [id number]: Total DLP = 704.00 mGy-cm Reason for Exam: syncope EXAMINATION: CT HEAD WITHOUT CONTRAST CLINICAL INFORMATION: syncope COMPARISON: January 05, 2025. TECHNIQUE: Contiguous axial imaging was performed from [...] head) *Use of iterative reconstruction technique DLP: 704 mGy-cm FINDINGS: No acute cortical disruption in the bony calvarium or the skull base. No acute intracranial hemorrhage, mass effect, midline shift, hydrocephalus or herniation. Bilateral multifocal patchy deep periventricular white matter hypodensities involving centrum semiovale and ennis radiata. Fajardo-white matter differentiation is normal. Prominence of the extra-axial Posterior cranial fossa contents demonstrated no acute hemorrhage or gross mass effect. Normal position of the cerebellar tonsils. Calcified plaques in the V4 segments of the vertebral arteries cavernous supracavernous both ICAs. Vascular calcifications in the vessels of the soft tissue scalp. No air-fluid levels in the paranasal sinuses. Mucosal thickening, right maxillary sinus. Tympanic cavities and mastoid cells are aerated. No hematoma in the intraconal or extraconal compartments of the orbits. Status post intraocular lens surgery, left eyeball. CT/CT head/brain wo IV con IMPRESSION: No acute fracture, bony calvarium. No acute intracranial hemorrhage. Probable small vessel occlusive disease. Atherosclerosis disease. Electronically signed by: Oliver Martin MD 04/04/2025 12:09 PM EDT RP Dictated By: Oliver Camejo MD Signed By: <Electronically signed by Oliver Gooden MD in OV> 04/04/25 1209 DD/ 1135 TD/TT: 04/04/25 1148 Beer Maker: Procedure Note Donotuseinterpreter, Image - 04/04/[address] [place] [address] [address] Scan Report Signed Patient: Scottie Drew#: [id number] : 1945cct:[id number] Age/Sex: 79 / MADM Date: 04/04/25 Loc: HO.ED Attending Dr: Ordering Physician: Crescencio Clark MD Date of Service: 04/04/25 Procedure(s): CT head/brain wo IV con Accession Number(s): [id number] cc: Crescencio Clark MD; [facility] Report Number: [id number]: Total DLP = 704.00 mGy-cm Reason for Exam: syncope EXAMINATION: CT HEAD WITHOUT CONTRAST CLINICAL INFORMATION: syncope COMPARISON: January 05, 2025. TECHNIQUE: Contiguous axial imaging was performed from [...] head) *Use of iterative reconstruction technique DLP: 704 mGy-cm FINDINGS: No acute cortical disruption in the bony calvarium or the skull base. No acute intracranial hemorrhage, mass effect, midline shift, hydrocephalus or herniation. Bilateral multifocal patchy deep periventricular white matter hypodensities involving centrum semiovale and ennis radiata. Fajardo-white matter differentiation is normal. Prominence of the extra-axial Posterior cranial fossa contents demonstrated no acute hemorrhage or gross mass effect. Normal position of the cerebellar tonsils. Calcified plaques in the V4 segments of the vertebral arteries cavernous supracavernous both ICAs. Vascular calcifications in the vessels of the soft tissue scalp. No air-fluid levels in the paranasal sinuses. Mucosal thickening, right maxillary sinus. Tympanic cavities and mastoid cells are aerated. No hematoma in the intraconal or extraconal compartments of the orbits. Status post intraocular lens surgery, left eyeball. CT/CT head/brain wo IV con IMPRESSION: No acute fracture, bony calvarium. No acute intracranial hemorrhage. Probable small vessel occlusive disease. Atherosclerosis disease. Electronically signed by: Oliver Martin MD 04/04/2025 12:09 PM EDT Dictated By: Oliver Camejo MD Signed By: <Electronically signed by Oliver Gooden MDin OV> 04/04/25 1209 DD/ 1135 TD/TT: 04/04/25 1148 Beer Maker: [facility] External Provider IMG CT PROCEDURES Edited Result - Final * CT Cervical Spine w/o Contrast (04/04/2025 11:35 AM EDT) Anatomical Region Laterality Modality Spine, C-spine Computed Tomogra phy 04/04/2025 11:3 5 AM EDT Narrative 04/04/2025 12:06 PM EDT [address] [address] [address] Scan Report Signed Patient: Lei Drew MR#: [id number] : 1945 Acct:[id number] Age/Sex: 79 / M ADM Date: 04/04/25 Loc: HO.ED Attending Dr: Ordering Physician: Crescencio Clark MD Date of Service: 04/04/25 Procedure(s): CT cervical spine wo IV con Accession Number(s): [id number] cc: Crescencio Clark MD; [facility] Report Number: [id number]: Total DLP = 268.00 mGy-cm Reason for Exam: syncope EXAMINATION: CT CERVICAL SPINE WITHOUT CONTRAST CLINICAL INFORMATION: Syncope COMPARISON: None available. TECHNIQUE: Contiguous axial images through the cervical spine using 3 mm collimation with bone and soft tissue algorithm. Sagittal and coronal reformatted images acquired. DLP: 268.[address] examination was performed using dose optimization techniques as appropriate, variously including the following: *Automated exposure control *Adjustment of mA and/or kV according to patient size (this includes techniques or standardized protocols for targeted exams where dose is matched to indication/reason for exam; i.e. extremities or head) *Use of iterative reconstruction technique FINDINGS: Craniocervical junction is intact with normal alignment between the occipital condyles and lateral masses of C1. C1 is intact. C2 is intact. Left facet joint hypertrophy. C3 is intact. Right facet joint hypertrophy. C4 is intact. Bilateral, right greater than left facet joint hypertrophy. C5 is intact. Right facet joint hypertrophy. C6 is intact. Left facet joint disease. C7 is intact. No prevertebral compartment hematoma. Marginal osteophyte formation and endplate sclerosis subchondral cyst formation and decreased intervertebral disc height at C5-6 and to a lesser extent C6-7 and C4-5 and C5-4 levels. Calcifications of the ligamentum flavum at C2-3, C3-4, C5-6 and to a lesser extent C6-7. No gross malalignment between the vertebral bodies or the facet joints. Calcified plaques in the carotic arteries. The thyroid gland appears small. Calcified plaques in the cavernous segments of the ICAs. Bilateral apical lung scarring. Tympanic cavities and mastoid air cells are aerated. CT/CT cervical spine wo IV con IMPRESSION: Multilevel cervical spondylosis pronounced at C5-6 and to a lesser extent C6-7 C4-5 and C3-4 level without acute fracture or trauma-related listhesis. Atherosclerosis disease, carotid arteries. Fleischner guidelines were followed. Electronically signed by: Oliver Martin MD 04/04/2025 12:03 PM EDT RP Dictated By: Oliver Camejo MD Signed By: <Electronically signed by Oliver Gooden MD in OV> 04/04/25 1203 DD/ 1135 TD/TT: 04/04/25 1148 Beer Maker: Procedure Note Donotuseinterpreter, Image - 04/04/[address] [place] [address] [address] Scan Report Signed Patient: Scottie Drew#: [id number] : 6Acct:[id number] Age/Sex: 79 / MADM Date: 04/04/25 Loc: HO.ED Attending Dr: Ordering Physician: Crescencio Clrak MD Date of Service: 04/04/25 Procedure(s): CT cervical spine wo IV con Accession Number(s): [id number] cc: Crescencio Clark MD; [facility] Report Number: [id number]: Total DLP = 268.00 mGy-cm Reason for Exam: syncope EXAMINATION: CT CERVICAL SPINE WITHOUT CONTRAST CLINICAL INFORMATION: Syncope COMPARISON: None available. TECHNIQUE: Contiguous axial images through the cervical spine using 3 mm collimation with bone and soft tissue algorithm. Sagittal and coronal reformatted images acquired. DLP: 268.[address] examination was performed using dose optimization techniques as appropriate, variously including the following: *Automated exposure control *Adjustment of mA and/or kV according to patient size (this includes techniques or standardized protocols for targeted exams where dose is matched to indication/reason for exam; i.e. extremities or head) *Use of iterative reconstruction technique FINDINGS: Craniocervical junction is intact with normal alignment between the occipital condyles and lateral masses of C1. C1 is intact. C2 is intact. Left facet joint hypertrophy. C3 is intact. Right facet joint hypertrophy. C4 is intact. Bilateral, right greater than left facet joint hypertrophy. C5 is intact. Right facet joint hypertrophy. C6 is intact. Left facet joint disease. C7 is intact. No prevertebral compartment hematoma. Marginal osteophyte formation and endplate sclerosis subchondral cyst formation and decreased intervertebral disc height at C5-6 and to a lesser extent C6-7 and C4-5 and C5-4 levels. Calcifications of the ligamentum flavum at C2-3, C3-4, C5-6 and to a lesser extent C6-7. No gross malalignment between the vertebral bodies or the facet joints. Calcified plaques in the carotic arteries. The thyroid gland appears small. Calcified plaques in the cavernous segments of the ICAs. Bilateral apical lung scarring. Tympanic cavities and mastoid air cells are aerated. CT/CT cervical spine wo IV con IMPRESSION: Multilevel cervical spondylosis pronounced at C5-6 and to a lesser extent C6-7 C4-5 and C3-4 level without acute fracture or trauma-related listhesis. Atherosclerosis disease, carotid arteries. Fleischner guidelines were followed. Electronically signed by: Oliver Martin MD 04/04/2025 12:03 PM EDT Dictated By: Oliver Camejo MD Signed By: <Electronically signed by Oliver Gooden MDin OV> 04/04/25 1203 DD/ 1135 TD/TT: 04/04/25 1148 Beer Maker: [facility] External Provider IMG CT PROCEDURES Edited Result - Final * XR Chest 2 Views (04/04/2025 11:24 AM EDT) Anatomical Region Laterality Modality Chest Radiographic Brianna ging 04/04/2025 11:2 4 AM EDT Narrative 04/04/2025 11:31 AM EDT [address] [address] XRay Report Signed Patient: Lei Drew MR#: [id number] : 1945 Acct:[id number] Age/Sex: 79 / M ADM Date: 04/04/25 Loc: HO.ED Attending Dr: Ordering Physician: Patricia Kerr Date of Service: 04/04/25 Procedure(s): XR chest 2V Accession Number(s): [id number] cc: Patricia Kerr; [facility] Reason for Exam: syncope EXAMINATION: XR CHEST 2 VIEWS HISTORY: syncope COMPARISON: Comparison is made with the prior examination dated 10/25/2024. FINDINGS: AP and lateral views of the chest are submitted. There is new elevation of the posterior aspect of the left hemidiaphragm. This could represent a hernia. The lungs are expanded and clear. There is no pleural effusion, pneumothorax, or pulmonary vascular congestion. The heart is normal in size. There is degenerative disc disease of the spine. XR/XR chest 2V IMPRESSION: New elevation of the posterior aspect of the left hemidiaphragm which could represent a hernia. The lungs are clear. Electronically signed by: Jerzy Mosqueda MD 04/04/2025 11:29 AM EDT RP Dictated By: Jerzy Mosqueda MD Signed By: <Electronically signed by Jerzy Mosqueda MD in OV> 04/04/25 1129 DD/ 1124 TD/TT: 04/04/25 1124 Beer Maker: Procedure Note Donotuseinterpreter, Image - 04/04/2025 [place] [address] XRay Report Signed Patient: Scottie Drew#: [id number] : 6Acct:[id number] Age/Sex: 79 / MADM Date: 04/04/25 Loc: .ED Attending Dr: Ordering Physician: Patricia Kerr Date of Service: 04/04/25 Procedure(s): XR chest 2V Accession Number(s): [id number] cc: Patricia Kerr; [facility] Reason for Exam: syncope EXAMINATION: XR CHEST 2 VIEWS HISTORY: syncope COMPARISON: Comparison is made with the prior examination dated 10/25/2024. FINDINGS: AP and lateral views of the chest are submitted. There is new elevation of the posterior aspect of the left hemidiaphragm. This could represent a hernia. The lungs are expanded and clear. There is no pleural effusion, pneumothorax, or pulmonary vascular congestion. The heart is normal in size. There is degenerative disc disease of the spine. XR/XR chest 2V IMPRESSION: New elevation of the posterior aspect of the left hemidiaphragm which could represent a hernia. The lungs are clear. Electronically signed by: Jerzy Mosqueda MD 04/04/2025 11:29 AM EDT RP Dictated By: Jerzy Mosqueda MD Signed By: <Electronically signed by Jerzy Mosqueda MD in OV> 04/04/25 1129 DD/ 1124 TD/TT: 04/04/25 1124 Beer Maker: [facility] External Provider IMG XR PROCEDURES Edited Result - Final documented in this encounter Visit Diagnoses Not on filedocumented in this encounter Additional Health Concerns Assessment Noted Time PHQ-9 Depression Total Score: 0 07/05/20 24 11:25 AM EST documented as of this encounter Care Teams Airfield Services Officer Relationship Specialty Start Date End Date Abbi Saha FNP [address] [place] [phone] PCP - General Family Medicine 04/01/23 Noemi GARCIA 05/08/24 documented as of this encounter
--- OUTSIDE RECORDS SUMMARY | 2025-04-04 13:55 | XMS_ITS | Encounter Summary ---
Author Organization [employer] Address [address] [facility] [address] [place] [address] Care Team Providers Care Epic Trainer Name Role Phone Maria A [facility] Primary Care Provider [phone] Encounter Details Date Type Department Care Team ([facility] st Contact Info) Description 08/11/2023 Orders Only [facility] MEDICINE [address] [place], [place] [phone] [place] [facility] [address] [place], [place] [phone] Sensorineural hearing loss (SNHL) of both ears; Lower urinary tract symptoms (LUTS); Gait instability; Type 2 diabetes mellitus with hyperglycemia, without long-term current use of insulin ([facility]); Hammertoes of both feet; Diminished pulses [...] Description 04/10/2025 11:00 AM EDT Office Visit [facility] ADULT DENTAL [address] [place] [address] Cris Nusrat [address] [place] [address] documented as of this encounter Procedures Procedure Name Priority Date/Time Associated Diagnosis Comments AMB REFERRAL TO ENT Routine 10/14/2023 Sensorineural hearing loss (SNHL) of both ears documented in this encounter Results * Referral to ENT (10/14/2023) [facility] OUTPATIENT REFERRAL ORDERABLE S Final Result documented in this encounter Visit Diagnoses Diagnosis Sensorineural hearing loss (SNHL) of both ears Lower urinary tract symptoms (LUTS) Gait instability Abnormality of gait Type 2 diabetes mellitus with hyperglycemia, without long-term current use of insulin ([facility]) Hammertoes of both feet Diminished pulses in lower extremity Facial skin lesion documented in this encounter Additional Health Concerns Assessment Noted Time PHQ-9 Depression Total Score: 0 07/02/20 9:13 AM EST documented as of this encounter Care Teams Epic Trainer Relationship Specialty Start Date End Date Abbi Saha FNP [address] [place] [address] PCP - General Family Medicine 04/01/23 Noemi GARCIA 05/08/24 documented as of this encounter
--- OUTSIDE RECORDS SUMMARY | 2025-04-04 13:55 | XMS_ITS | Clinical Summary ---
Author Organization [employer] Address [address] [facility] [address] [place] [address] Care Team Providers Care Assistant Administrator Name Role Phone Abbi Saha PATIENT CLERICAL ASSISTANT Primary Care Provider [phone] Allergies No known active allergies Medications Diclofenac Sodium 1 % gel Apply 2 g topically every 6 (six) hours. 1 Active Lidocaine 4 % patch Apply to the affected area up to 3 times daily as needed Active sildenafil (Viagra) 100 MG tablet Take 1 tablet by mouth at bed time. Active Blood Glucose Monitoring Suppl (Cuutio SoftwareTouch Verio) w/Device kitIndications:T ype 2 diabetes mellitus without complication, without long-term current use of insulin ([facility]) 1 kit before breakfast and before evening meal. 1 kit 2 Active acetaminophen (Tylenol) 325 MG tablet Take 2 tablets by mouth. Active cholecalciferol (Vitamin D-3) 50 MCG (2000 UT) capsule TAKE 1 CAPSULE BY MOUTH EVERYDAY AT NOON 2 Active ferrous sulfate 325 (65 Fe) MG tablet Take 1 tablet by mouth. 1 Active tamsulosin (Flomax) 0.4 MG 24 hr capsule Take 1 capsule (0.4 mg) by mouth in the morning. 30 capsule 1 3 Active terazosin (Hytrin) 5 MG capsule Take 5 mg by mouth at bedtime. 4 Active oxyCODONE (Roxicodone) 5 MG immediate release tablet 5 mg. 4 Active Creon 82058-74498 units capsule 2 capsules. 4 Active glucose blood (OneTouch Verio) test strip TEST BLOOD SUGAR TWICE A DAY 100 each 11 5 Active Multiple Vitamin (Multivitamin) tabletIndication s:Type 2 diabetes mellitus with hyperglycemia, without long-term current use of insulin (CMS/HCC) TAKE 1 TABLET BY MOUTH EVERY EVENING WITH FOOD 90 tablet 3 5 Active metFORMIN (Glucophage) 1000 MG tabletIndication s:Type 2 diabetes mellitus with hyperglycemia, without long-term current use of insulin (CMS/HCC) Take 1 tablet (1,000 mg) by mouth with breakfast and with evening meal. 60 tablet 11 5 09/08/19 26 Active SITagliptin (Januvia) 25 MG tabletIndication s:Type 2 diabetes mellitus with hyperglycemia, without long-term current use of insulin (CMS/HCC) Take 1 tablet (25 mg) by mouth Once per day. 30 tablet 11 5 09/08/19 26 Active Lancets (OneTouch Delica Plus [id number]) miscIndications: Elevated blood sugar TEST BLOOD SUGAR TWICE DAILY 100 each 11 5 Active Farxiga 10 MGIndications:Ty pe 2 diabetes mellitus with other specified complication, unspecified whether jail insulin use (CMS/HCC) TAKE 1 TABLET BY MOUTH EVERY MORNING 90 tablet 1 5 Active omeprazole (PriLOSEC) [address] capsuleIndicatio ns:Dyspepsia TAKE 1 CAPSULE BY MOUTH TWICE DAILY 60 capsule 2 5 Active atorvastatin (Lipitor) 10 MG tablet TAKE 1 TABLET BY MOUTH EVERY EVENING 90 tablet 2 5 Active mirtazapine (Remeron) 7.5 MG tabletIndication s:Other insomnia TAKE 1 TABLET BY MOUTH AT BEDTIME 30 tablet 1 5 Active Active Problems Problem Noted Date Diagnosed Date Primary malignant neoplasm o f left lung metastatic to other site 07/05/2024 Overview (07/05/2024): New dx of metastatic NSCLC 04/2024.-- Presented to [facility] ED w1 with acute [...] of metastatic disease. 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 Referred for home PT to improve gait safety, home safety evaluation. Discussed with patient and family regarding importance of monitoring ambulation and use of ambulatory aids, they agree with POC Assessment & Plan (05/19/2023 11:08 AM EDT): Referral to PT for gait instability Healthcare maintenance 10/16/2022 Overview (10/25/2022): Healthcare Maintenance: C-scope: [facility] 2021, needs records PSA: Per urology HCV Screen: Neg 09/10 HIV Screen: Neg 09/10 Immunizations: UTD Weight loss 09/17/2022 Diabetes 09/11/2022 Overview (02/25/2024): Farxiga 10mg daily Metformin 1000mg b.i.d Januvia 25 mg daily Foot Exam: Risk 0; [facility] Eye Exam: [facility] Eye care Statin: Yes ASA: No [...] Repeat labs today Has upcoming appointment for [facility] eye care Assessment & Plan (10/25/2022 [...] Plan (05/19/2023 11:14 AM EDT): Compliant with [facility] agreement Only using tramadol 1x/week due to concern re addiction Advised patient OK to take tramadol at bedtime nightly if pain interfering with sleep Continue acetaminophen PRN during day Continue lidocaine patch Continue topical diclofenac gel Continue acupuncture PT referral for general gait instability Assessment & Plan (10/25/2022 1:09 PM EDT): Will refer to [facility] RN Hypertensive disorder 04/12/2017 Overview (02/25/2024): Losartan [...] Encounters Date Type Department Care Team Description 04/04/2025 Orders Only [facility] External Provider, [facility] 03/22/2025 Telephone [facility] [place] [facility] [place] [address] Abbi Saha FNP chart prep 02/28/2025 Refill [facility] [address] [facility] [place] [address] Abbi Saha FNP Other insomnia 02/02/2025 Telephone [facility] [address] [place] [address] Abbi Saha FNP Referral 01/31/2025 Telephone [facility] [address] [place] [address] Abbi Saha FNP Care Coordination 01/30/2025 10:45 AM EDT Office Visit [facility] [place] [address] Swati Kan MD Abnormality of gait and mobility (Primary Dx) 01/30/2025 Travel 01/29/2025 Telephone [facility] [place] [facility] [place] [address] Abbi Saha FNP Chart prep 01/24/2025 Orders Only GENERIC EXTERNAL DATA DEPARTMENT Provider, Generic External Data 01/24/2025 Refill [facility] [place] [facility] [place] [address] Abbi Saha FNP 01/21/2025 Refill [facility] [place] [address] Abbi Saha FNP Dyspepsia 01/11/2025 Telephone [facility] [place] [address] Abbi Saha FNP sept recall 01/05/2025 Orders Only GENERIC EXTERNAL DATA DEPARTMENT Provider, Generic External Data from Last 3 Months Immunizations Immunization Administration [...] Sign Reading Time Taken Comments Blood Pressure 106/60 01/30/2025 10:41 AM EDT Pulse 78 01/30/2025 10:41 AM EDT Temperature 36 C (96.8 F) 01/30/2025 10:41 AM EDT Respiratory Rate 20 01/30/2025 10:41 AM EDT Oxygen Saturation 100% 10/25/2024 9:22 AM EDT Inhaled Oxygen Concentration - - Weight 60.3 kg (133 lb) 01/30/2025 10:41 AM EDT Height 157.5 cm (5' 2 ) 01/30/2025 10:41 AM EDT Body Mass Index 24.33 01/30/2025 10:41 AM EDT Plan of Treatment Upcoming Encounters Date Type Department Care Team (Late st Contact Info) Description 04/10/2025 11:00 AM EDT Office Visit [facility] ADULT DENTAL [address] [place] [address] Cris, Nusrat [address] [place] [address] Health Maintenance Due Date Last Done Comments Alcohol/Substance Use Screening 1957 RSV Patients and Patients Aged 60 years or older (1 - 1-dose 75+ series) 2021 Diabetes: Urine Protein Screening 05/03/2024 05/03/2023, 01/06/2022, 01/30/2020 Lipid Panel 05/03/2024 05/03/2023, 08/20, 01/06/2022, Additional history exists SDOH Screening 10/13/2024 10/14/2023 COVID-19 Vaccine ( season) 2025 05/15/2024, 04/23/2023, 04/28/2022, Additional history exists Influenza Vaccine (#1) 2025 , 04/09/2023, 04/17/2022, Additional history exists Dental Oral Exam 03/30/2025 09/26/2024, 09/25/2016 Dental Prophylaxis 03/30/2025 09/26/2024, 0 02/17/2024, 01/28/2022, Additional history exists Diabetes: Hemoglobin A1C 04/26/2025 04 025, 07/05/2024, 02/25/2024, Additional history exists Depression Screening 07/05/2025 07/05/2024, 07/05/20 Eye Exam 07/19/2025 07/19/2023 Dental X-Ray: Bitewings 09/27/2025 09/27/19, 02/17/2024, 11/26/2023, Additional history exists Diabetes: Foot Exam 10/25/2025 10/25/2024, 10/25/2024, 07/02/2023, Additional history exists Tobacco Screening 01/30/2026 01/30/2025 Dental X-Ray: Full Mouth 09/28/2027 09/26/2024, 09/16 [...] MICROSCOPIC Routine 04/04/2025 12:[address] HEAD WO CONTRAST Routine 04/04/2025 1 1:[address] CERVICAL SPINE WO CONTRAST Routine 04/04/2025 11:35 AM EDT XR CHEST 2 VIEWS Routine 04/04/2025 11:2 4 AM EDT PSA, TOTAL Routine 01/24/2025 9:[address] CHEST W CONTRAST Routine 01/22/2025 1 [...] AUTO DIFFERENTIAL Routine 01/05/2025 12:36 PM EDT POCT GLYCATED HEMOGLOBIN, TOTAL Routine 10/25/2024 9:24 [...] Relevant to Health Maintenance Results * (ABNORMAL) Urinalysis, Complete, with Reflex to Culture (04/04/2025 12:15 PM EDT) Color Urine Yellow [facility] Appearance Urine Clear [facility] PH 5.5 5.0 - 9.0 [facility] Glucose Urine UA >=1000(A) Negative mg/dL [facility] Urine Blood Negative Negative [facility] Specific [place] - Urine >=1.030(H) 1.005 - 1.025 [facility] Urine Protein Negative Neg-Trace mg/dL [facility] Urine Ketones Trace Negative mg/dL [facility] Nitrite Urine Negative Negative [facility] Leukocyte Esterase Urine Negative Negative [facility] RBC Urine 0-2 0 - 2 /HPF [facility] Urine WBC 0-5 0 - 5 /HPF [facility] Urine Squamous Epithelial Cell 0-2 0 - 2 /HPF [facility] Urine Bacteria None Seen None Seen [facility] Hyaline Casts, Urine 0-2 0 - 2 /LPF [facility] 04/04/2025 12:1 5 PM EDT 04/04/2025 12:19 PM EDT Narrative [facility] - 04/04/2025 12:28 PM EDT Urine, Catheterized us Generic External Data Provider LAB URINE ORDERAB LES Final Result Performing Organization Address City/State/[facility] Co de Phone Number [facility] [address] [place] [phone] * (ABNORMAL) Urinalysis w/reflex microscopic (04/04/2025 12:15 PM EDT) Color Urine Yellow [facility] Appearance Urine Clear [facility] PH 5.5 5.0 - 9.0 [facility] Glucose Urine UA >=1000(A) Negative mg/dL [facility] Urine Blood Negative Negative [facility] Specific [place] - Urine >=1.030(H) 1.005 - 1.025 [facility] Urine Protein Negative Neg-Trace mg/dL [facility] Urine Ketones Trace Negative mg/dL [facility] Nitrite Urine Negative Negative [facility] Leukocyte Esterase Urine Negative Negative [facility] 04/04/2025 12:1 5 PM EDT 04/04/2025 12:19 PM EDT Narrative [facility] - 04/04/2025 12:25 PM EDT Urine, Catheterized us Generic External Data Provider LAB URINE ORDERAB LES Final Result Performing Organization Address City/State/[facility] Co de Phone Number [facility] [address] [place] [phone] * CT Cervical Spine w/o Contrast (04/04/2025 11:35 AM EDT) Anatomical Region Laterality Modality Spine, C-spine Computed Tomogra phy 04/04/2025 11:3 5 AM EDT Narrative 04/04/2025 12:06 PM EDT [address] [address] [address] Scan Report Signed Patient: Lei Drew MR#: [id number] : 1945 Acct:[id number] Age/Sex: 79 / M ADM Date: 04/04/25 Loc: .ED Attending Dr: Ordering Physician: Crescencio Clark MD Date of Service: 04/04/25 Procedure(s): CT cervical spine wo IV con Accession Number(s): [id number] cc: Crescencio Clark MD; [facility] Report Number: [id number]: Total DLP = 268.00 mGy-cm Reason for [...] 04/04/25 1203 DD/ 1135 TD/TT: 04/04/25 1148 Hydraulic Pile Hammer Operator: Procedure Note Donotuseinterpreter, Image - 04/04/[address] [address] [address] Scan Report Signed Patient: Scottie Drew#: [id number] : 6Acct:[id number] Age/Sex: 79 / MADM Date: 04/04/25 Loc: HO.ED Attending Dr: Ordering Physician: Crescencio Clark MD Date of Service: 04/04/25 Procedure(s): CT cervical spine wo IV con Accession Number(s): [id number] cc: Crescencio Clark MD; [facility] Report Number: [id number]: Total DLP = 268.00 mGy-cm Reason for [...] 04/04/25 1203 DD/ 1135 TD/TT: 04/04/25 1148 Hydraulic Pile Hammer Operator: [facility] External Provider IMG CT PROCEDURES Edited Result - Final * CT Head w/o Contrast (04/04/2025 11:35 AM EDT) Only the most recent of2 resultswithin the time period is included. Anatomical Region Laterality Modality Head, Neck Computed Tomogra phy 04/04/2025 11:3 5 AM EDT Narrative 04/04/2025 12:11 PM EDT [place] [address] CT Scan Report Signed Patient: Lei Drew MR#: [id number] : 1945 Acct:[id number] Age/Sex: 79 / M ADM Date: 04/04/25 Loc: HO.ED Attending Dr: Ordering Physician: Crescencio Clark MD Date of Service: 04/04/25 Procedure(s): CT head/brain wo IV con Accession Number(s): [id number] cc: Crescencio Clark MD; [facility] Report Number: [id number]: Total DLP = 704.00 mGy-cm Reason for [...] 04/04/25 1209 DD/ 1135 TD/TT: 04/04/25 1148 Hydraulic Pile Hammer Operator: Procedure Note Donotuseinterpreter, Image - 04/04/[address] [place] [address] [address] Scan Report Signed Patient: Scottie Drew#: [id number] : 6Acct:[id number] Age/Sex: 79 / MADM Date: 04/04/25 Loc: HO.ED Attending Dr: Ordering Physician: Crescencio Clark MD Date of Service: 04/04/25 Procedure(s): CT head/brain wo IV con Accession Number(s): [id number] cc: Crescencio Clark MD; [facility] Report Number: [id number]: Total DLP = 704.00 mGy-cm Reason for [...] 04/04/25 1209 DD/ 1135 TD/TT: 04/04/25 1148 Hydraulic Pile Hammer Operator: [facility] External Provider IMG CT PROCEDURES Edited Result - Final * XR Chest 2 Views (04/04/2025 11:24 AM EDT) Anatomical Region Laterality Modality Chest Radiographic Brianna ging 04/04/2025 11:2 4 AM EDT Narrative 04/04/2025 11:31 AM EDT [address] [address] XRay Report Signed Patient: Lei Drew MR#: [id number] : 1945 Acct:[id number] Age/Sex: 79 / M ADM Date: 04/04/25 Loc: HO.ED Attending Dr: Ordering Physician: Patricia Kerr Date of Service: 04/04/25 Procedure(s): XR chest 2V Accession Number(s): [id number] cc: Patricia Kerr; [facility] Reason for Exam: syncope EXAMINATION: XR [...] Jerzy Mosqueda MD 04/04/2025 11:29 AM EDT Dictated By: Jerzy Mosqueda MD Signed By: <Electronically signed by Jerzy Mosqueda MD in OV> 04/04/25 1129 DD/ 1124 TD/TT: 04/04/25 1124 Hydraulic Pile Hammer Operator: Procedure Note Donotuseinterpreter, Image - 04/04/[address] [address] XRay Report Signed Patient: Jacqui DrewR#: [id number] : 1945cct:[id number] Age/Sex: 79 / MADM Date: 04/04/25 Loc: HO.ED Attending Dr: Ordering Physician: Patricia Kerr Date of Service: 04/04/25 Procedure(s): XR chest 2V Accession Number(s): [id number] cc: Patricia Kerr; [facility] Reason for Exam: syncope EXAMINATION: XR [...] 04/04/25 1129 DD/ 1124 TD/TT: 04/04/25 1124 Hydraulic Pile Hammer Operator: [facility] External Provider IMG XR PROCEDURES Edited Result - Final * PSA,Total (01/24/2025 9:16 AM EDT) Prostate Specific Antigen 1.91 <0.05 - 4.0 ng/mL [facility] Comment:PSA methodology: Willa Velasquez i ChemiluminescentMicroparticle Immunoassay (CMIA) 01/24/2025 9:16 AM EDT 01/24/2025 9:16 AM EDT Generic External Data Provider LAB BLOOD ORDERAB LES Final Result [facility] [address] [place] [phone] * CT Chest w/ Contrast (01/22/2025 10:44 AM EDT) Anatomical Region Laterality Modality Body, Chest Computed Tomogra phy 01/22/2025 10:4 4 AM EDT Narrative 01/22/2025 1:38 PM EDT [address] [address] [address] Scan Report Signed Patient: Lei Drew MR#: [id number] : 1945 Acct:[id number] Age/Sex: 79 / M ADM Date: 01/22/25 Loc: HO.CT Attending Dr: Tabatha Quintero NP Ordering Physician: Tabatha Quintero NP Date of Service: 01/22/25 Procedure(s): CT chest w IV con Accession Number(s): [id number] cc: Louisa Morales MD; Tabatha Quintero NP; [facility] Report Number: [id number]: Total DLP = 115.00 mGy-cm EXAMINATION: CT [...] 01/22/25 1335 DD/ 1044 TD/TT: 01/22/25 1115 Hydraulic Pile Hammer Operator: Procedure Note Donotuseinterpreter, Image - 01/22/[address] [place] [address] [address] Scan Report Signed Patient: Scottie Drew#: [id number] : 1945cct:[id number] Age/Sex: 79 / MADM Date: 01/22/25 Loc: HO.CT Attending Dr: Tabatha Quintero NP Ordering Physician: Tabatha Quintero NP Date of Service: 01/22/25 Procedure(s): CT chest w IV con Accession Number(s): [id number] cc: Louisa Morales MD; Tabatha Quintero NP; [facility] Report Number: [id number]: Total DLP = 115.00 mGy-cm EXAMINATION: CT [...] 01/22/25 1335 DD/ 1044 TD/TT: 01/22/25 1115 Hydraulic Pile Hammer Operator: [facility] External Provider IMG CT PROCEDURES Final Result * CTA Lower Extremity w/ and w/o Contrast Right (01/05/2025 6:06 PM EDT) Anatomical Region Laterality Modality Lower Extremities Right Computed Tomog ewa 01/05/2025 6:06 PM EDT Narrative 01/05/2025 6:07 PM EDT [address] [address] [address] Scan Report Signed Patient: Lei Drew MR#: [id number] : 1945 Acct:[id number] Age/Sex: 79 / M ADM Date: 01/05/25 Loc: .ED Attending Dr: Ordering Physician: Tito Lauren PA-C Date of Service: 01/05/25 Procedure(s): CT angio LE RT Accession Number(s): [id number] cc: Tito Lauren PA-C; [facility] Report Number: [id number]: Total DLP = 0.00 mGy-cm CLINICAL HISTORY: [...] in OV> 01/05/251805 DD/ 05 TD/TT: 01/05/251805 Hydraulic Pile Hammer Operator: Procedure Note Daltonotalma, Image - 01/05/[address] [place] [address] [address] Scan Report Signed Patient: Scottie Drew#: [id number] : 1945cct:[id number] Age/Sex: 79 / MADM Date: 01/05/25 Loc: HO.ED Attending Dr: Ordering Physician: Tito Lauren PA-C Date of Service: 01/05/25 Procedure(s): CT angio LE RT Accession Number(s): [id number] cc: Tito Lauren PA-C; [facility] Report Number: [id number]: Total DLP = 0.00 mGy-cm CLINICAL HISTORY: [...] in OV> 01/05/251805 DD/ 05 TD/TT: 01/05/251805 Hydraulic Pile Hammer Operator: [facility] External Provider IMG CT PROCEDURES Final Result * Sodium Without creatinine, Random Urine (01/05/2025 5:29 PM EDT) Sodium Urine Random 32.0 mmol/L [facility] 01/05/2025 5:29 PM EDT 01/05/2025 5:42 PM EDT Generic External Data Provider LAB BLOOD ORDERAB LES Final Result Performing Organization Address [facility]/ZIP Co de Phone Number [facility] [address] [place] [phone] * Osmolality, Urine (01/05/2025 5:29 PM EDT) OSMOLALITY URINE 559 373 - 1,093 mosm/kg [facility] 01/05/2025 5:29 PM EDT 01/05/2025 5:42 PM EDT Generic External Data Provider LAB URINE ORDERAB LES Final Result Performing Organization Address [facility] Co de Phone Number [facility] [address] [place] [phone] * SST GOLD TOP TO HOLD (01/05/2025 3:30 PM EDT) Hold Gold See Note [facility] Comment:Specimen held untest ed for 24 hours; Call to requestChemistry testing. 01/05/2025 3:30 PM EDT 01/05/2025 3:33 PM EDT us Generic External Data Provider LAB BLOOD ORDERAB LES Final Result [facility] [address] [place], [place] [phone] * (ABNORMAL) CBC auto differential (01/05/2025 3:29 PM EDT) Only the most recent of2 resultswithin the time period is included. White Blood Count 9.4 4.8 - 10.8 X10*3/uL [facility] Red Blood Count 4.45(L) 4.60 - 5.80 X10*6/uL [facility] Hemoglobin 13.4(L) 14.0 - 18.0 g/dl [facility] Hematocrit 37.2(L) 42.0 - 52.0 % [facility] Mean Corpuscular Volume 83.6 80.0 - 98.0 fL [facility] Mean Corpuscular Hemoglobin 30.1 27.0 - 33.0 pg [facility] Mean Corpuscular HGB Conc 36.0 31.0 - 36.0 g/dl [facility] Red Cell Distribution Width 15.7 11.0 - 16.0 % [facility] Platelet Count 242 160 - 400 X10*3/uL [facility] Mean Platelet Volume 8.9(L) 9.4 - 12.4 fL [facility] Neutrophils Percent Auto 80.6(H) 45 - 73 % [facility] Imm Gran Pct Auto 0.6(H) 0.0 - 0.4 % [facility] Lymphocytes Percent Auto 9.7(L) 20 - 40 % [facility] Monocytes Percent Auto 7.4 2 - 11 % [facility] Eosinophils Percent Auto 1.4 0 - 4 % [facility] Basophils Percent Auto 0.3 0 - 2 % [facility] NRBC Pct Auto 0.0 0.0 - 0.2 /100WBC [facility] Neutrophils Absolute Auto 7.6 2.0 - 8.3 x10*3/uL [facility] Imm Gran Abs Auto 0.06(H) 0.00 - 0.03 X10*3/uL [facility] Lymphocytes Absolute Auto 0.9(L) 1.2 - 4.9 X10*3/uL [facility] Monocytes Absolute Auto 0.7 0.1 - 1.2 X10*3/uL [facility] Eosinophils Absolute Auto 0.1 0.0 - 0.4 X10*3/uL [facility] Basophils Absolute Auto 0.0 0.0 - 0.2 X10*3/uL [facility] NRBC Abs Auto 0.000 0.0 - 0.012 X10*3/uL [facility] 01/05/2025 3:29 PM EDT 01/05/2025 3:33 PM EDT us Generic External Data Provider LAB BLOOD ORDERAB LES Final Result Performing Organization Address City/State/[facility] Co de Phone Number [facility] [address] [place] [phone] * XR Hips Bilateral with Pelvis 1 view (01/05/2025 2:30 PM EDT) Anatomical Region Laterality Modality Lower Extremities, Hip Bilateral Radiograp hic Imaging 01/05/2025 2:30 PM EDT Narrative 01/05/2025 3:01 PM EDT [address] [address] XRay Report Signed Patient: Lei Drew MR#: [id number] : 1945 Acct:[id number] Age/Sex: 79 / M ADM Date: 01/05/25 Loc: HO.ED Attending Dr: Ordering Physician: Tito Lauren PA-C Date of Service: 01/05/25 Procedure(s): XR hip BI w PEL1V Accession Number(s): [id number] cc: Tito Lauren PA-C; [facility] PATIENT CLERICAL ASSISTANT EXAMINATION: XR BILATERAL HIPS WITH AP PELVIS [...] 01/05/25 1458 DD/ 1430 TD/TT: 01/05/25 1442 Hydraulic Pile Hammer Operator: Procedure Note Donotuseinterpreter, Image - 01/05/2025 [place] [address] XRay Report Signed Patient: Scottie Drew#: [id number] : 1945cct:[id number] Age/Sex: 79 / MADM Date: 01/05/25 Loc: HO.ED Attending Dr: Ordering Physician: Tito Lauren PA-C Date of Service: 01/05/25 Procedure(s): XR hip BI w PEL1V Accession Number(s): [id number] cc: Tito Lauren PA-C; [facility] PATIENT CLERICAL ASSISTANT EXAMINATION: XR BILATERAL HIPS WITH AP PELVIS [...] David Gilliam MD 01/05/2025 02:58 PM EDT RP Dictated By: David Gilliam MD Signed By: <Electronically signed by David Gilliam MD in OV> 01/05/25 1458 DD/ 1430 TD/TT: 01/05/25 1442 Hydraulic Pile Hammer Operator: [facility] External Provider IMG XR PROCEDURES Final Result * XR Femur 2+ Views Right (01/05/2025 1:29 PM EDT) Anatomical Region Laterality Modality Lower Extremities, Femur Right Radiogr aphic Imaging 01/05/2025 1:29 PM EDT Narrative 01/05/2025 2:59 PM EDT [address] [address] XRay Report Signed Patient: Lei Drew MR#: [id number] : 1945 Acct:[id number] Age/Sex: 79 / M ADM Date: 01/05/25 Loc: HO.ED Attending Dr: Ordering Physician: Tito Lauren PA-C Date of Service: 01/05/25 Procedure(s): XR femur RT 2V Accession Number(s): [id number] cc: Tito Lauren PA-C; [facility] PATIENT CLERICAL ASSISTANT EXAMINATION: XR FEMUR, RIGHT CLINICAL INFORMATION: fall/hematoma [...] Gilliam MD 01/05/2025 02:57 PM EDT RP Dictated By: David Gilliam MD Signed By: <Electronically signed by David Gilliam MD in OV> 01/05/25 1457 DD/ 1329 TD/TT: 01/05/25 1442 Hydraulic Pile Hammer Operator: Procedure Note Donotuseinterpreter, Image - 01/05/[address] [address] XRay Report Signed Patient: Scottie Drew#: [id number] : 6Acct:[id number] Age/Sex: 79 / MADM Date: 01/05/25 Loc: HO.ED Attending Dr: Ordering Physician: Tito Lauren PA-C Date of Service: 01/05/25 Procedure(s): XR femur RT 2V Accession Number(s): [id number] cc: Tito Lauren PA-C; [facility] EXAMINATION: XR FEMUR, RIGHT CLINICAL INFORMATION: fall/hematoma [...] 01/05/25 1457 DD/ 1329 TD/TT: 01/05/25 1442 Hydraulic Pile Hammer Operator: us [facility] External Provider IMG XR PROCEDURES Final Result * High Sensitivity Troponin I (01/05/2025 12:36 PM EDT) TROPONIN I HIGH SENSITIVITY <2.7 <3.5 - 35.0 ng/L [facility] Comment:The Vargas high sens itivity Troponin-I results should beused in conjunction with other diagnostic information suchas ECG, clinical observations and information, and patientsymptoms to aid in the diagnosis of OR. 01/05/2025 12:3 6 PM EDT 01/05/2025 2:17 PM EDT Generic External Data Provider LAB BLOOD ORDERAB LES Final Result Performing Organization Address City/[facility]/ZIP Co de Phone Number [facility] [address] [place] [phone] * Partial Thromboplastin Time, Activated (APTT) (01/05/2025 12:36 PM EDT) Partial Thromboplastin Time 33.1 26.0 - 36.8 SEC [facility] Comment:For information rega rding the monitoring of direct thrombininhibitors, please refer to Pharmacy. 01/05/2025 12:3 6 PM EDT 01/05/2025 12:45 PM EDT Generic External Data Provider LAB BLOOD ORDERAB LES Final Result Performing Organization Address City/[facility]/ZIP Co de Phone Number [facility] [address] [place] [phone] * Prothrombin Time-INR (01/05/2025 12:36 PM EDT) Prothrombin Time 11.7 10.9 - 12.4 SEC [facility] INTERNATIONAL NORM RATIO 1.0 0.9 - 1.1 [facility] Comment:INTERNATIONAL NORMAL IZED RATIO (INR) [...] ORDERAB LES Final Result Performing Organization Address [facility] Co de Phone Number [facility] [address] [place] [phone] * B Type Natriuretic Peptide (BNP) (01/05/2025 12:36 PM EDT) B Type Natriuretic Peptide 15 <100 pg/mL [facility] 01/05/2025 12:3 6 PM EDT 01/05/2025 2:09 PM EDT Generic External Data Provider LAB BLOOD ORDERAB LES Final Result Performing Organization Address [facility] Phone Number [facility] [address] [place] [phone] * (ABNORMAL) Magnesium (01/05/2025 12:36 PM EDT) Pathologist [facility] Magnesium 1.4(LL) 1.6 - 2.6 mg/dL [facility] Comment:Critical value for t est(s): MAGS Results called to linn back by: marisela Person calling:TACOS Date:01/05/25Time:1308 01/05/2025 12:3 6 PM EDT 01/05/2025 12:45 PM EDT Generic External Data Provider LAB BLOOD ORDERAB LES Final Result Performing Organization Address [facility] Co de Phone Number [facility] [address] [place] [phone] * Creatine Kinase, Total (01/05/2025 12:36 PM EDT) Creatine Kinase Total 52 38 - 174 U/L [facility] 01/05/2025 12:3 6 PM EDT 01/05/2025 12:45 PM EDT Generic External Data Provider LAB BLOOD ORDERAB LES Final Result Performing Organization Address [facility]/ZIP Co de Phone Number [facility] [address] [place] [phone] * Hepatic Function Panel (01/05/2025 12:36 PM EDT) Pathologist [facility] Bilirubin, Total 0.5 0.0 - 1.0 mg/dL [facility] Bilirubin, Direct 0.3 0.0 - 0.5 mg/dL [facility] Aspartate Amino Transferase 16 5 - 37 U/L [facility] Alanine Aminotransferase 8 0 - 40 U/L [facility] Total Protein 6.9 6.5 - 8.0 g/dL [facility] Albumin Level 4.3 3.5 - 5.0 g/dL [facility] Alkaline Phosphatase 91 39 - 117 U/L [facility] 01/05/2025 12:3 6 PM EDT 01/05/2025 12:45 PM EDT blog[employer]oster External Data Provider LAB BLOOD ORDERAB LES Final Result Performing Organization Address [facility] de Phone Number [facility] [address] [place] [phone] * (ABNORMAL) Basic Metabolic Panel (01/05/2025 12:36 PM EDT) Pathologist [facility] Sodium 127(L) 135 - 145 mmol/L [facility] Potassium 4.2 3.3 - 5.1 mmol/L [facility] Chloride 96 96 - 108 mmol/L [facility] Carbon Dioxide 22 22 - 29 mmol/L [facility] Anion Gap 13 12 - 20 [facility] Urea Nitrogen (BUN) 13 9 - 16 mg/dL [facility] Creatinine, Serum 0.66 0.5 - 1.4 mg/dL [facility] Creatinine Clr Calc Pharmacy 71.0 [facility] Comment:eGFR (calculated fro m the MDRD study equation) and eCrCl(calculated from the Cockcroft-Gault equation) are based ondifferent parameters and may not yield comparable results.If eCrCl result is absurd, please check patient'sheight/weight. Estimated Glomerular Filt Rate >60 [facility] Comment:Chronic Kidney Disea se: Estimated GFR < 60 mL/min/1.19j9Tuimgy Kidney Disease: Estimated GFR < 15 mL/min/1.73m2 Glucose 140(H) 60 - 115 mg/dL [facility] Calcium 9.7 8.4 - 10.2 mg/dL [facility] 01/05/2025 12:3 6 PM EDT 01/05/2025 12:45 PM EDT Generic External Data Provider LAB BLOOD ORDERAB LES Final Result [facility] [address] [place] [phone] * (ABNORMAL) POCT HGB A1C (10/25/2024 9:24 AM EDT) Hemoglobin A1C 6.7(A) 4.0 - 6.0 % QC Media Lot # [id number] Lot# Expiration Date Blood 10/25/2024 9:24 AM EDT [facility] PATIENT CLERICAL ASSISTANT POINT OF CARE TEST ENTER/EDIT ORDERABLES Final Result * Albumin, Random Urine W/Creatinine (05/03/2023 8:36 AM EDT) Creatinine, Urine 54.13 mg/dL [facility] Microalbumin Urine 8.0 mg/L [facility] Microalbum Creatinine Ratio Ur 14.7 <30 ug/mg cr [facility] Comment:Albumin/Creatinine R atio Reference Ranges: Normal: < 30 ug/mg creatinine Microalbuminuria: 30 - 300 ug/mg creatinineClinical Albuminuria: > 300 ug/mg creatinine Urine 05/03/2023 8:36 AM EDT 05/03/2023 11:07 AM EDT [facility] LAB URINE ORDERABLES Final Re sult Performing Organization Address [facility] Co de Phone Number [facility] [address] [place] [phone] * Lipid Panel, Standard (05/03/2023 8:36 AM EDT) Triglycerides 83 <150 mg/dL [facility] Comment:Desirable Triglyceri de: less than 150 mg/dLBorderline High Triglyceride 150-199 mg/dLHigh Triglyceride: 200-499 mg/dLVery High Triglyceride: greater than or equal to 5OO mg/dL Cholesterol 136 <200 mg/dL [facility] Comment:Desirable Cholestero l: less than 200 mg/dLBorderline High Cholesterol: 200-239 mg/dLHigh Cholesterol: greater than 239 mg/dL LDL Cholesterol Calculated 54 <100 mg/dL [facility] Comment:Desirable LDL: less than 100 mg/dLNear Optimal/Above Optimal LDL: 110- 129 mg/dLBorderline High LDL: 130-159 mg/dLHigh LDL: 160-189 mg/dLVery High LDL: greater than or equal to 190 mg/dL HDL Cholesterol 66 >40 mg/dL [facility] Comment:Desirable HDL: great er than 40 mg/dL Note: This HDL assay may give artificially low results in patients with liver disease. Blood Venous blood specimen / Unknown 05/03/2023 8:36 AM EDT 05/03/2023 11:13 AM EDT [facility] LAB BLOOD ORDERABLES Final Re sult Performing Organization Address [facility]/ZIP Co de Phone Number [facility] [address] [place] [phone] * Hepatitis C Antibody with Reflex to HCV, RNA, Quantitative, Real-Time PCR (09/11/2022 3:09 PM EST) Hepatitis C Antibody NON-REACT VAHID NON-REACT VAHID [facility]-i3 membrane Diagnost Index <0.02 <1.00 [facility]ost Comment: HCV antibody was non-reactive. There is no laboratory evidence of HCV infection. In most cases, no further action is required. However, if recent HCV exposure is suspected, a test for HCV RNA (test code 56900) is suggested. For additional information please refer to http://education.Zao.com/faq/EKJ15g8 (This link is being provided for informational/ educational purposes only.) Blood Venous blood specimen / Unknown 09/11/2022 3:09 PM EST 09/11/2022 3:09 PM EST Narrative [facility] - 09/14/2022 1:32 PM EST FASTING:NO FASTING: NO [facility] PATIENT CLERICAL ASSISTANT LAB BLOOD ORDERABLES Final Re sult [facility] [address], [place] [address] [facility] [address] [facility], ([address]) [place] [phone] from Last 3 Months or Most Recently Relevant to Health Maintenance Insurance [facility] Care Teams Assistant Administrator Relationship Specialty Start Date End Date Abbi Saha FNP [address] [place] [phone] PCP - General Family Medicine 04/01/23 Noemi GARCIA 05/08/24
--- OUTSIDE RECORDS SUMMARY | 2025-04-04 13:55 | XMS_ITS | Clinical Summary ---
Author Organization [facility] Address [address] [place] [address] Phone Care Team Providers Care Parking Enforcement Technician Name Role Phone Unavailable Primary Care Provider Unavailabl e Encounters Date Type Department Care Team Description 03/07/2025 12:57 PM EDT - 03/07/2025 11:59 PM EDT Hospital Encounter [facility] PET Scan [address] [place] [address] Malignant neoplasm of unspecified part of unspecified bronchus or lung (CMS/HCC V24, CMS/HCC V28) Discharge Disposition: Home or Self Care from [...] Due Date Last Done Comments Diabetes: Annual Foot Exam 1955 Diabetes: Annual Retina Eye Exam 1955 RSV Immunization Adult Patients (1 - 1-dose 75+ series) 2021 Diabetes: Annual Urine Albumin-Creatinine Ratio (uACR) 2024 Falls Risk Assessment 2024 Social Influencers of Health Screening 2024 Depression Screening 07/19/2024 COVID-19 Vaccine (8 - Pfizer risk season) 2025 05/15/2024, 04/23/2023, 04/28/2022, Additional history exists Influenza Vaccine (#1) 2025 , 04/09/2023, 04/17/2022, Additional history exists Diabetes: Blood Sugar Control Test (HGBA1C) 04/26/2025 10/25/2024, 02/25/2024 Diabetes: Annual GFR (Glomerular Filtration Rate) 01/05/2026 01/05/2025 Hypertension/CHF/CAD Annual BMP Blood Test 01/05/2026 01/05/2025 Cholesterol Screening (Lipid Panel) 05/03/2028 05/03/2023 DTaP,Tdap,and [...] Comments PET CT SKULL TO MID THIGH SUBSEQUENT Routine 03/07/2025 3:07 PM EDT Malignant neoplasm of unspecified part of unspecified bronchus or lung ([facility] V24, [facility] V28) from Last 3 Months Results * PET CT Skull to Mid Thigh Subsequent (03/07/2025 3:07 PM EDT) Anatomical Region Laterality Modality Body Radiographic Brianna ging 03/09/2025 1:53 PM EDT Impressions 03/09/2025 2:05 PM EDT Metabolically active cervical and thoracic nodes are increased from the prior study with new avid right hilar nodes. Resolved left-sided pleural metabolic activity. -------- FINAL REPORT -------- Dictated By: Higinio Allen Dictated Date: 03/09/2025 13:53 ET Assigned Physician: Higinio Allen Reviewed and Electronically Signed By: Higinio Allen Signed Date: 03/09/2025 14:05 ET Workstation ID: [id number] Transcribed By: Self Edit Transcribed Date: 03/09/2025 13:53 ET Narrative 03/09/2025 2:05 PM EDT INDICATION: Non-small cell lung carcinoma, subsequent treatment strategy Prior relevant studies: PET/CT from 2024 Radiopharmaceutical: 11.0 mCi of F-18 FDG IV. Blood glucose: 99 mg/dl. PROCEDURE: Routine body FDG PET-CT imaging was performed from the skull base to the mid thighs and reconstructed in axial, coronal, and sagittal planes at the computer workstation with fused data from both the PET imaging study and attenuation correction CT. The CT portion of the examination was done strictly for attenuation correction and is not a true diagnostic CT examination. CTDI: 4.8 mGy FINDINGS: HEAD AND NECK: FDG active left-sided level 5 cervical nodes with SUV max of 6.2. Bilateral FDG avid supraclavicular nodes with SUV max of 7.7 on the right. THORAX: FDG avid mediastinal nodes involve the paratracheal region, AP window and and subcarinal regions overall increased from the prior study. SUV max up to 7.5 within the AP window, previously 6.1. Left hilar FDG avid lymphadenopathy with SUV max of 8.9, previously 2.9. New right hilar FDG avid lymphadenopathy with SUV max of 9.4. Resolved pleural metabolic activity as well as resolved small left pleural effusion with interval removal of Pleurx catheter. ABDOMEN/PELVIS: Physiologic activity noted throughout the small and large bowel loops. MUSCULOSKELETAL: Focal activity noted within both shoulders along the cervical spine, lumbar spine and both hips. Procedure Note Higinio Allen MD - 03/09/2025 INDICATION: Non-small cell lung carcinoma, subsequent treatment strategy Prior relevant studies: PET/CT from 2024 Radiopharmaceutical: 11.0 mCi of F-18 FDG IV. Blood glucose: 99 mg/dl. PROCEDURE: Routine body FDG PET-CT imaging was performed from the skullbase to the mid thighs and reconstructed in axial, coronal, and sagittalplanes at the computer workstation with fused data from both the PETimaging study and attenuation correction CT. The CT portion of theexamination was done strictly for attenuation correction and is not a truediagnostic CT examination. CTDI: 4.8 mGy FINDINGS: HEAD AND NECK: FDG active left-sided level 5 cervical nodes with SUV maxof 6.2. Bilateral FDG avid supraclavicular nodes with SUV max of 7.7 on the right. THORAX: FDG avid mediastinal nodes involve the paratracheal region, APwindow and and subcarinal regions overall increased from the prior study.SUV max up to 7.5 within the AP window, previously 6.1. Left hilar FDG avid lymphadenopathy with SUV max of 8.9, previously 2.9. New right hilar FDG avid lymphadenopathy with SUV max of 9.4. Resolved pleural metabolic activity as well as resolved small left pleuraleffusion with interval removal of Pleurx catheter. ABDOMEN/PELVIS: Physiologic activity noted throughout the small and largebowel loops. MUSCULOSKELETAL: Focal activity noted within both shoulders along thecervical spine, lumbar spine and both hips. IMPRESSION: Metabolically active cervical and thoracic nodes are increased from theprior study with new avid right hilar nodes. Resolved left-sided pleural metabolic activity. -------- FINAL REPORT -------- Dictated By: Higinio Allen Dictated Date: 03/09/2025 13:53 ET Assigned Physician: Higinio Allen Reviewed and Electronically Signed By: Higinio Allen Signed Date: 03/09/2025 14:05 ET Workstation ID: [id number] Transcribed By: Self Edit Transcribed Date: 03/09/2025 13:53 ET Tabatha Quintero APN IMG NM PROCEDURES Final Re sult from Last 3 Months Insurance [address] [place] [id number] [place] [address]
--- OUTSIDE RECORDS SUMMARY | 2025-04-04 13:55 | XMS_ITS | Encounter Summary ---
Author Organization [facility] Address [address] [facility] 7t [place] [address] Care Team Providers Care Live Source Operator Name Role Phone Sandy Torrez MD Primary Care Provider Unava ilable [place] [facility] Primary Care Provider [phone] Gogo Palacio [facility] Primary Care Provider [phone] [facility] Primary Care Provider [phone] Encounter Details Date Type Department Care Team (Latest Contact Info) Description 06/23/2021 Abstract [facility] CONVERSIONS Dental, Provider, DDS Social History Tobacco [...] Description 04/10/2025 11:00 AM EDT Office Visit [facility] ADULT DENTAL [address] [place], [place] [phone] Cris Nusrat [address] [place], [place] [phone] documented as of this encounter Visit Diagnoses Not on filedocumented in this encounter Care Teams Live Source Operator Relationship Specialty Start Date End Date Sandy Torrez MD PCP - General Family Medicine 01/09/20 06/22/22 [place] [facility] [address] [place] [address] PCP - General Family Medicine 06/23/22 03/28/23 Gogo Palacio FNP [address] [place] [address] PCP - General Family Medicine 03/29/23 03/31/23 [place] FNP [address] [place] [address] PCP - General Family Medicine 04/01/23 Noemi A 05/08/24 documented as of this encounter
--- OUTSIDE RECORDS SUMMARY | 2025-04-04 13:55 | XMS_ITS | Encounter Summary ---
Author Organization [employer] Address [address] [facility] [address]t [place] [address] Care Team Providers Care Copy Clerk Name Role Phone Sandy Torrez MD Primary Care Provider Unava ilable [facility] Primary Care Provider [phone] Gogo Palacio [facility] Primary Care Provider [phone] [facility] Primary Care Provider [phone] Encounter Details Date Type Department Care Team (Latest Contact Info) Description 07/17/2019 Abstract [place] CONVERSIONS Dental, Provider, DDS Social History Tobacco [...] Description 04/10/2025 11:00 AM EDT Office Visit [facility] [address] [place], [place] [phone] Cris, Nusrat [address] [place], [place] [phone] documented as of this encounter Visit Diagnoses Not on filedocumented in this encounter Care Teams Copy Clerk Relationship Specialty Start Date End Date Sandy Torrez MD PCP - General Family Medicine 01/09/20 06/22/22 [place] [facility] [address] [place] [phone] PCP - General Family Medicine 06/23/22 03/28/23 Gogo Palacio FNP [address] [place] [address] PCP - General Family Medicine 03/29/23 03/31/23 [place] FNP [address] [place] [address] PCP - General Family Medicine 04/01/23 Noemi A 05/08/24 documented as of this encounter
--- OUTSIDE RECORDS SUMMARY | 2025-04-04 13:55 | XMS_ITS | Encounter Summary ---
Author Organization [employer] Address [address] [facility] [address] [place] [address] Care Team Providers Care Environmental Conservation Professor Name Role Phone Maria A [facility] Primary Care Provider [phone] Reason for Visit * Reason Comments Med Refill Encounter Details Date Type Department Care Team ([facility] Contact Info) Description 07/16/2024 Refill [facility] MEDICINE [address] [place], [place] [phone] Paia [facility] [address] [place] [address] Type 2 diabetes mellitus with hyperglycemia, without long-term current use of insulin ([facility]) Social History Tobacco Use Types Packs/Day [...] Description 04/10/2025 11:00 AM EDT Office Visit [facility] ADULT DENTAL [address] [place] [address] Yobany Lyncharis [address] [place] [address] documented as of this encounter Visit Diagnoses Diagnosis Type 2 diabetes mellitus with hyperglycemia, without long-term current use of insulin ([facility]) documented in this encounter Additional Health Concerns Assessment Noted Time PHQ-9 Depression Total Score: 0 07/05/20 24 11:25 AM EST documented as of this encounter Care Teams Environmental Conservation Professor Relationship Specialty Start Date End Date Abbi Saha FNP [address] [place] [address] PCP - General Family Medicine 04/01/23 Noemi GARCIA 05/08/24 documented as of this encounter
--- NOTE | 2025-04-04 14:24 | PM.IMHP ---
History of Present Illness Date of Service: 04/04/25 Chief Complaint: syncope Py with medical of NIDM, anemia, HTN, HLD, BPH and metastatic NSLC who presented to ed after syncopal episode. Pt is romansh speaking and has family at bedside. Upon my encounter with pt in ed, he is lying comfortably in bed. He complains of dizziness but denies N/V/D, abd pain, focal weakness, Urinary sx, fever, chills, chest pain, SOB, or fatigue. He states that he did not have any sx before passing out. and does not recall that episode at all. His states that pt woke up in am and went to bathroom and while she was helping him do his stuff, his head dropped down and he became unresponsive. She then called 911 and pt regained consciousness upon their arrival. did not see any abnormal body movement. His BS was wnl when checked by ems but he was hypotensive with SBP in 80ies. Pt ambulates at home with walker. Review of Systems Constitutional: Constitutional: Reports as per HPI Eyes: Eyes: Reports as per HPI Cardiovascular: Cardiovascular: Reports as per HPI Respiratory: Respiratory: Reports as per HPI Gastrointestinal: Gastrointestinal: Reports as per HPI Genitourinary: Genitourinary: Reports as per HPI Neurologic: Reports as per HPI Psychiatric: Psychiatric: Reports as per HPI [facility] Medical History (Updated 04/04/25 @ 14:35 by Yahaira Gloria MD) HLD (hyperlipidemia) GERD (gastroesophageal reflux disease) Exocrine pancreatic insufficiency Abdominal bloating Renal cyst Loose stools History of revision of total replacement of right knee joint Lung mass High cholesterol Anemia Pleural hemorrhage Diverticulosis Hyponatremia Acute hyponatremia Colon cancer screening Erectile dysfunction Gastritis COVID-19 virus infection Hydrocele Cataract Hypercholesteremia Diabetes BPH (benign prostatic hyperplasia) Hypertension Family History Father Diabetes Mother Diabetes Uterus cancer Mother Cancer Surgical History History of bilateral knee replacement Visit for wound check S/P chest tube placement Hx of colonoscopy History of prostate surgery Social History Household Members: Spouse Housing: Apartment Housing Other:: housing apartment Are you a primary aged or disabled care worker to a significant other at home: No Do you presently have visiting nurse or other home services: No Alcohol intake: never Comment: camera placed as pt is impulsive, attempts to get OOB. Hx falls recently Patient Tobacco Use Status: Never used Tobacco Smoked in Last 30 Days: No Use of substances other than those prescribed or required for medical reasons: No Advance Directives: No Advance Directives Information Provided: Yes Do you have a plan to hurt others: No Plan service: No Current occupational status: retired Current occupation: right handed Gender identity: Male Meds Allergies Allergy/AdvReac Type Severity Reaction Status Date / Time No Known Allergies (No Known Allergy Verified 04/04/25 10:36 Allergies*) Active Medications: Current Medications Acetaminophen (Acetaminophen 325 Mg Tablet) 650 mg PO Q6H PRN PRN Reason: Pain, Mild 1-3,fever,headache Atorvastatin Calcium (Atorvastatin Calcium 10 Mg Tablet) 10 mg PO DAILY [facility]ATHAN Calcium Carbonate (Calcium Carbonate 750 Mg Tab.Chew) 750 mg PO Q4H PRN PRN Reason: Heartburn Doxazosin Mesylate (Doxazosin Mesylate 2 Mg Tablet) 4 mg PO BEDTIME JOHNATHAN Empagliflozin (Empagliflozin 10 Mg Tablet) 10 mg PO DAILY [facility] Heparin Sodium (Porcine) (Heparin Sodium,Porcine 5,000 Unit/Ml Vial) 5,000 unit SUBCUT Q8H [facility]ATHAN Magnesium Hydroxide (Milk Of Magnesia 30 Ml Oral.Susp) 30 ml PO DAILY PRN PRN Reason: Constipation Magnesium Oxide (Magnesium Oxide 400 Mg Tablet) 400 mg PO DAILY JOHNATHAN Melatonin (Melatonin 3 Mg Tablet) 6 mg PO BEDTIME PRN PRN Reason: Insomnia Multivitamins/Vitamin C (Multivitamin Tablet) 1 tab PO DAILY [facility] Omeprazole (Omeprazole 20 Mg Capsule.Dr) 20 mg PO BID@0630,1630 [facility] Sodium Chloride (0.9 % Sodium Chloride Flush 3 Ml Syringe) 3 ml IVFLUSH QSHIFT [facility] Trazodone HCl (Trazodone Hcl 50 Mg Tablet) 50 mg PO BEDTIME [facility] Home Medications ?Medication ?Instructions ?Recorded ?Confirmed ?Last Taken ?Type atorvastatin 10 mg tablet 10 mg PO DAILY 05/08/20 04/04/25 07/01/20 History blood sugar diagnostic #10 ea 10/04/20 01/24/25 Unknown History lancets 33 gauge #100 ea 10/04/20 01/24/25 Unknown History metformin 1,000 mg tablet 1,000 mg PO BID 10/04/20 04/04/25 Unknown History multivitamin 1 tab PO DAILY 10/04/20 04/04/25 Unknown History dapagliflozin propanediol 10 mg 10 mg PO DAILY 10/09/21 04/04/25 05/03/24 History tablet (Farxiga) acetaminophen 325 mg tablet 650 mg PO Q6H PRN Pain 04/29/24 04/04/25 Unknown History omeprazole 20 mg capsule,delayed 20 mg PO BID@0630,1630 04/29/24 04/04/25 Unknown History release psyllium husk 3.4 gram/5.4 gram 1 tsp PO DAILY 04/29/24 04/04/25 Unknown History oral powder (Metamucil) Physical Exam Vital Signs and Narrative: Vital Signs: Last Vital Signs Temp 97.6 F 04/04/25 13:06 Pulse 75 04/04/25 13:06 Resp 16 04/04/25 13:06 BP 125/69 04/04/25 13:06 Pulse Ox 94 04/04/25 13:06 O2 Del Method Room Air 04/04/25 13:06 BMI result Body Mass Index 24.2 A&Ox3, awake, answering questions appropriately heart sinus tachy on tele, no M/R abdomen: soft NT, ND rest: on ra , no rales or wheezing neuro: no focal weakness, sensations intacts, strength 5/5 throughout skin: no rash, no MAINOR psych: calm and cooperative Results Labs 04/04/25 10:47 04/04/25 10:46 Labs: Laboratory Results - last 24 hr 04/04/25 04/04/25 04/04/25 10:43 10:46 10:47 MCV 87.8 MCH 29.8 MCHC 33.9 RDW 13.3 Plt Count 246 D MPV 8.9 L Immature Gran % (Auto) 1.1 H Neut % (Auto) 76.4 H Lymph % (Auto) 11.0 L Stevens % (Auto) 10.6 Eos % (Auto) 0.2 Baso % (Auto) 0.7 Lymph # (Auto) 0.6 L Stevens # (Auto) 0.6 Eos # (Auto) 0.0 Baso # (Auto) 0.0 Abs Immat Gran (auto) 0.06 H Absolute Neuts (auto) 4.3 Absolute Nucleated RBC 0.000 Nucleated RBC % (auto) 0.0 Anion Gap 10 L Estim Creat Clear Calc 58.7 Estimated GFR > 60 Random Glucose 113 Lactic Acid 1.3 Calcium 9.4 Magnesium 1.6 Total Bilirubin 0.4 AST 18 ALT 7 Alkaline Phosphatase 111 Troponin I High Sens 8.5 D Total Protein 6.9 Albumin 4.1 TSH 2.76 Urine Color Urine Appearance Urine pH Ur Specific Wirtz Urine Protein Urine Glucose (UA) Urine Ketones Urine Blood Urine Nitrite Ur Leukocyte Esterase Urine RBC Urine WBC Ur Squamous Epith Cells Urine Bacteria Hyaline Casts COVID-19 (HERSON) Negative COVID-19 Clin Com See Note Influenza Type A (MICHELLE) Negative Influenza Type B (MICHELLE) Negative Influenza A & B Note See Note 04/04/25 12:15 MCV MCH MCHC RDW Plt Count MPV Immature Gran % (Auto) Neut % (Auto) Lymph % (Auto) Stevens % (Auto) Eos % (Auto) Baso % (Auto) Lymph # (Auto) Stevens # (Auto) Eos # (Auto) Baso # (Auto) Abs Immat Gran (auto) Absolute Neuts (auto) Absolute Nucleated RBC Nucleated RBC % (auto) Anion Gap Estim Creat Clear Calc Estimated GFR Random Glucose Lactic Acid Calcium Magnesium Total Bilirubin AST ALT Alkaline Phosphatase Troponin I High Sens Total Protein Albumin TSH Urine Color Yellow Urine Appearance Clear Urine pH 5.5 Ur Specific Wirtz >= 1.030 H Urine Protein Negative Urine Glucose (UA) >=1000 H Urine Ketones Trace Urine Blood Negative Urine Nitrite Negative Ur Leukocyte Esterase Negative Urine RBC 0-2 Urine WBC 0-5 Ur Squamous Epith Cells 0-2 Urine Bacteria None Seen Hyaline Casts 0-2 COVID-19 (HERSON) COVID-19 Clin Com Influenza Type A (MICHELLE) Influenza Type B (MICHELLE) Influenza A & B Note Imaging Radiologist's Impressions: Impressions Chest X-Ray 04/04/25 11:24 IMPRESSION: New elevation of the posterior aspect of the left hemidiaphragm which could represent a hernia. The lungs are clear. Electronically signed by: Jerzy Mosqueda MD 04/04/2025 11:29 AM EDT Cervical Spine CT 04/04/25 11:35 IMPRESSION: Multilevel cervical spondylosis pronounced at C5-6 and to a lesser extent C6-7 C4-5 and C3-4 level without acute fracture or trauma-related listhesis. Atherosclerosis disease, carotid arteries. Fleischner guidelines were followed. Electronically signed by: Oliver Martin MD 04/04/2025 12:03 PM EDT RP Head CT 04/04/25 11:35 IMPRESSION: No acute fracture, bony calvarium. No acute intracranial hemorrhage. Probable small vessel occlusive disease. Atherosclerosis disease. Electronically signed by: Oliver Martin MD 04/04/2025 12:09 PM EDT RP Assessment and Plan (1) NIDDY (non-insulin dependent diabetes mellitus in young): Status: Acute (2) 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 (3) Syncope and collapse: Status: Acute (4) Hypothermia: Status: Acute (5) HLD (hyperlipidemia): Status: Acute Plan Pt with hx of lung cancer, DM, HTN, HLD, anemia, and BPH presented with an episdoe of syncope at home. Syncope/collapse Hypotension Hypothermia has an episode on syncope while using bathroom, denies any sx before episode, unlikely seizure in the absence of post ictal confusion which family denies, or abnormal body movement with the episode. dx at this point are vasovagal VS cardiogenic syncope Vs orthostatic labs grossly unremarkable, mild HypoNa, afebrile, no leucocytosis, no VL, ekg non ischemic, trops indeterminate, last echo done 4 yrs ago had normal ef, and no valvular issues. given hypoNa, volume depletion and hence orthostasis is likely.. check orthostats ( unable to perform given dizziness) echo cards consult for event monitor arrangement ivf Ns telemonitor DM: hold metformin inpt, cont januvia Insulin SS hypoglycemic measures HTN/HLD will hold home bp meds and monitor BP closely. currently stable takes losartan and nifidipine cont atorvastatin BPH: resume home med Lung cancer: takes dabrafenib 150 mg p.o. b.i.d. with trametinib 2 mg daily, as he has the BRAF mutation. will see if they are formulary and can be given inpt diet: diabetic full code DVT heparin sc assessment and plan coordination time spent 70 min Quality Stroke Does the patient have a stroke diagnosis?: No VTE Prior VTE?: No VTE Risk Level:: Medical - moderate - high VTE Device Contraindication: N/A - Device Ordered VTE Drug Contraindication: N/A - Med Ordered
[2025-04-04] MEDS: 0.9 % Sodium Chloride Flush 3 ML SYRINGE IVFLUSH (17:08)
[2025-04-04 18:02] LABS: Glucose, Whole Blood 254 mg/dL (60-115)
[2025-04-04 21:40] LABS: Glucose, Whole Blood 89 mg/dL (60-115)
[2025-04-05 03:22] VITALS: BP 173/79; PULSE 69; RESP 18; TEMP 36.6; O2SAT 96
[2025-04-05] MEDS: diazePAM 10 MG/2 ML CARTRIDGE 2.5 MG IVPUSH (03:37)
[2025-04-05 06:55] LABS: Hematocrit 39.0 % (42.0-52.0); Hemoglobin 13.4 g/dl (14.0-18.0); Mean Corpuscular HGB Conc 34.4 g/dl (31.0-36.0); Mean Corpuscular Hemoglobin 29.4 pg (27.0-33.0); Mean Corpuscular Volume 85.5 fL (80.0-98.0); NRBC Abs Auto 0.000 X10*3/uL (0.0-0.012); NRBC Pct Auto 0.0 /100WBC (0.0-0.2); Platelet Count 267 X10*3/uL (160-400); Red Blood Count 4.56 X10*6/uL (4.60-5.80); White Blood Count 4.6 X10*3/uL (4.8-10.8)
[2025-04-05 07:13] VITALS: BP 160/74; PULSE 80; RESP 18; TEMP 36.4; O2SAT 95
[2025-04-05 07:14] LABS: Alanine Aminotransferase 11 U/L (0-40); Albumin Level 4.1 g/dL (3.5-5.0); Alkaline Phosphatase 122 U/L (39-117); Anion Gap 13 (12-20); Aspartate Amino Transferase 23 U/L (5-37); Blood Urea Nitrogen 18 mg/dL (9-16); Calcium 9.4 mg/dL (8.4-10.2); Carbon Dioxide 24 mmol/L (22-29); Chloride 100 mmol/L (96-108); Creatinine Clr Calc Pharmacy 72.3; Estimated Glomerular Filt Rate > 60; Potassium 4.1 mmol/L (3.3-5.1); Sodium 133 mmol/L (135-145); Total Protein 7.2 g/dL (6.5-8.0)
[2025-04-05 07:25] LABS: Glucose, Whole Blood 136 mg/dL (60-115)
[2025-04-05] MEDS: oxyCODONE HCl Immed Release 5 MG TABLET PO (08:33)
[2025-04-05] MEDS: 0.9 % Sodium Chloride Flush 3 ML SYRINGE IVFLUSH (08:37)
[2025-04-05 11:10] LABS: Glucose, Whole Blood 126 mg/dL (60-115)
[2025-04-05 11:23] VITALS: BP 146/71; PULSE 78; RESP 16; TEMP 36.7; O2SAT 98
--- NOTE | 2025-04-05 11:38 | MHC.CM.PN ---
Addendum entered by Kathie Puentes 04/05/25 14:02: Patient discharged to home today with resumption of [facility]NA. His daughter provided transportation home. DC Info has been sent to [facility]. Original Note: MARIA C 04/05/25 DX Syncope Patient lives with his He requires assistance with all functional mobility. barby Pelaez, esvin luna, B.R. modifications His dtr assists with personal care shopping appointments and transportation. HVNA is in place. PCP [facility] new HCP documented. DP resume HVNA. Patients dtr will provide transportation home.
--- NOTE | 2025-04-05 13:16 | PM.DS ---
DS: Providers Provider Date of Service: 04/05/25 Date of admission: 04/04/25 12:50 Date of discharge: 04/05/25 Primary care physician: ROB Brewer DS: Diagnosis Discharge Diagnosis (1) NIDDY (non-insulin dependent diabetes mellitus in young): Status: Acute (2) 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 (3) Syncope and collapse: Status: Acute (4) Hypothermia: Status: Acute (5) HLD (hyperlipidemia): Status: Acute DS: Summary Hospital Course Hospital Course: 79-year-old male with history of [id number] diabetes, anemia, hypertension, hyperlipidemia, BPH and metastatic [id number] lung cancer presented after syncopal episode .Patient describes waking up and voiding large amounts. He left the bathroom went to the breakfast table where he had a syncopal episode. Initially when safety sealer arrived he was slightly hypotensive however in the emergency room blood pressures were normalized. He was monitored on telemetry; no indication of any dysrhythmias to cause episode. The echo was done which is essentially unremarkable. At this point in time he is back to baseline ambulating in room as medically acceptable for discharge. He is instructed that he should void more frequently and follow up with his PCP next available Time Attestation Discharge Coordination Time (in mins): 35 Quality: Safe Use of Opioids Does Pt have an Active Cancer Diagnosis on the Problem List?: Yes Opioid Measure Date for [facility] Report: 03/06/25 Opioid Measure Time for [facility] Report: 13:19 Quality: Stroke Does the patient have a stroke diagnosis?: No Physical Exam Vital Signs: Vital Signs: Last Vital Signs Temp 98.0 F 04/05/25 11:23 Pulse 78 04/05/25 11:23 Resp 16 04/05/25 11:23 BP 146/71 H 04/05/25 11:23 Pulse Ox 98 04/05/25 11:23 O2 Del Method Room Air 04/05/25 11:23 BMI result Body Mass Index 24.6 Const: Other: Awake alert no acute distress (entertainment usher utilized) Resp: Other: Clear to auscultation bilaterally no rales rhonchi or wheezes Cardio: Other: No S4; positive S1-S2; no S3 murmurs rubs or gallops GI: Other: Soft nontender nondistended normoactive bowel sounds Extrem: Other: No edema bilaterally DS: Data Data Completed and Pending Completed studies during hospitalization [Text1]: Procedures Drainage of Left Pleural Cavity with Drainage Device, Percutaneous Approach (04/29/24) Labs on day of discharge: Laboratory Results - last 24 hr 04/04/25 04/04/25 04/04/25 10:46 17:59 21:21 WBC RBC Hgb Hct MCV MCH MCHC RDW Plt Count MPV Absolute Nucleated RBC Nucleated RBC % (auto) Sodium Potassium Chloride Carbon Dioxide Anion Gap BUN Creatinine Estim Creat Clear Calc Estimated GFR POC Glucose 254 H 89 Random Glucose Calcium Total Bilirubin AST ALT Alkaline Phosphatase Total Protein Albumin TSH 2.76 04/05/25 04/05/25 04/05/25 06:37 07:18 11:07 WBC 4.6 L RBC 4.56 L Hgb 13.4 L Hct 39.0 L MCV 85.5 MCH 29.4 MCHC 34.4 RDW 13.2 Plt Count 267 MPV 8.8 L Absolute Nucleated RBC 0.000 Nucleated RBC % (auto) 0.0 Sodium 133 L Potassium 4.1 Chloride 100 Carbon Dioxide 24 Anion Gap 13 BUN 18 H Creatinine 0.65 Estim Creat Clear Calc 72.3 Estimated GFR > 60 POC Glucose 136 H 126 H Random Glucose 103 Calcium 9.4 Total Bilirubin 0.4 AST 23 ALT 11 Alkaline Phosphatase 122 H Total Protein 7.2 Albumin 4.1 TSH Preliminary micro results at discharge 04/04/25 10:46 Blood Culture - Preliminary Blood - Venous No growth after 24 hours. 04/04/25 10:44 Blood Culture - Preliminary Blood - Venous No growth after 24 hours. Discharge Plan Discharge Anticipated Discharge Date/Time: 04/05/25 13:09 Patient Disposition: Home, Self-Care Discharge Diagnosis: Post micturition syncope Referrals: Abbi Saha, ROB [Primary Care Provider, Medical] - 1 Week Discharge Medications: Continued (DME) walker Misc See Rx Instructions .ROUTE .MEDSUPPLY Qty: 1 0RF Rx Instructions: Folding Front wheeled walker with seat Creon 24,000-76,000 -120,000 unit capsule,delayed release(DR/EC) 2 cap PO TID 30 Days Qty: 180 6RF terazosin 5 mg capsule 5 mg PO BEDTIME 90 Days Qty: 90 3RF Metamucil 3.4 gram/5.4 gram Powder 1 tsp PO DAILY Rx Instructions: mix into at least 4 oz water or juice before administering acetaminophen 325 mg Tablet 650 mg PO Q6H PRN (Reason: Pain) omeprazole 20 mg capsule,delayed release(DR/EC) 20 mg PO BID@0630,1630 trazodone 50 mg Tablet 50 mg PO BEDTIME Qty: 30 1RF magnesium oxide 400 mg magnesium Capsule 400 mg PO DAILY Qty: 30 1RF dabrafenib 75 mg Capsule 150 mg PO Q12H Qty: 120 3RF Mekinist 2 mg Tablet 2 mg PO DAILY Qty: 30 2RF Rx Instructions: must be taken on empty stomach, at least 1 hr before or 2-3 hrs after meal/food ondansetron 8 mg Tablet,Disintegrating 8 mg PO Q8H PRN (Reason: Nausea) Qty: 30 2RF famotidine [Pepcid] 20 mg Tablet 20 mg PO DAILY Qty: 30 2RF metformin 1,000 mg tablet 1,000 mg PO BID multivitamin Tablet 1 tab PO DAILY (DME) lancets 33 gauge misc See Rx Instructions topical .MEDSUPPLY Qty: 100 Rx Instructions: As directed (DME) blood sugar diagnostic Strip See Rx Instructions Not Applicable BID Qty: 10 Rx Instructions: As directed atorvastatin 10 mg tablet 10 mg PO DAILY Farxiga 10 mg tablet 10 mg PO DAILY Discharge Orders: Discharge Order (Routine); Ordered 04/05/25 Ordered By: Tylor Mitchell Diet: Advance to usual diet Activity on Discharge: As tolerated Stand Alone Forms: Patient Portal Discharge page Print Language: Japanese Care Plan Goals: Resume all meds as taken prior to hospitalization Health Concerns: Follow up with the PCP and Dr. Morales as scheduled Plan of Treatment: Drink plenty of fluids Assessment: See discharge summary
== END 2025-04-05 13:45 | disposition home health service (06) ==
LOC: HO.ED 12:36 → HO.EDOVER 12:50 → HO.IMC 17:19
PROVIDERS: Physician Assistant Medical; Admitting Provider Hospitalist; Emergency Provider Emergency Medicine; PCP Registered Nurse; Visit Provider Hospitalist
DX: R55 Syncope and collapse (principal); N50.82 Scrotal pain; C34.90 Malignant neoplasm of unspecified part of unspecified bronchus or lung; E78.5 Hyperlipidemia, unspecified; R07.9 Chest pain, unspecified; I10 Essential (primary) hypertension; E11.9 Type 2 diabetes mellitus without complications; T68.XXXA Hypothermia, initial encounter; Y92.9 Unspecified place or not applicable; Z79.899 Other long term (current) drug therapy
CPT/HCPCS: 36415; 70450; 71046; 72125; 76870; 80053; 81001; 82947; 83605; 83735; 84443; 84484; 85025; 85027; 87040; 87502; 87635; 93005; 93306; 96361; 96372; 96374; 97162; 99222; 99285; J1644; J3360; Q9957

== ENCOUNTER → 2025-04-04 10:19 | Outpatient (BNV) | payer MEDICARE, SELFPAY | PROVIDERS: Admitting Provider Hospitalist; Emergency Provider Emergency Medicine; PCP Registered Nurse; Visit Provider Internal Medicine | DX: I45.10 Unspecified right bundle-branch block (principal) | CPT/HCPCS: 93010 ==

== ENCOUNTER → 2025-04-04 10:27 | Outpatient (BNV) | payer MEDICARE, SELFPAY | PROVIDERS: Emergency Provider Emergency Medicine; PCP Registered Nurse; Visit Provider Radiology Diagnostic Radiology | DX: M47.812 Spondylosis without myelopathy or radiculopathy, cervical region (principal); R55 Syncope and collapse | CPT/HCPCS: 70450; 71046; 72125 ==

== ENCOUNTER 2025-04-04 12:50 | Outpatient (BNV) | payer OTHER, SELFPAY | END 2025-04-05 07:37 | PROVIDERS: Admitting Provider Hospitalist; Emergency Provider Emergency Medicine; PCP Registered Nurse; Visit Provider Radiology Diagnostic Radiology | DX: N50.82 Scrotal pain (principal) | CPT/HCPCS: 76870 ==

== ENCOUNTER → 2025-04-04 12:50 | Outpatient (BNV) | payer MEDICARE, SELFPAY | PROVIDERS: Admitting Provider Hospitalist; Emergency Provider Emergency Medicine; PCP Registered Nurse; Visit Provider Hospitalist | DX: E13.9 Other specified diabetes mellitus without complications (principal); C34.90 Malignant neoplasm of unspecified part of unspecified bronchus or lung; R55 Syncope and collapse; T68.XXXA Hypothermia, initial encounter; E78.5 Hyperlipidemia, unspecified | CPT/HCPCS: 99239 ==

== ENCOUNTER 2025-04-21 20:29 | Inpatient (IN) | payer OTHER, SELFPAY ==
[2025-04-21] VITALS (7 sets, daily range): BP systolic 103–150; BP diastolic 53–92; PULSE 82–106; RESP 23–25; TEMP 37.6–39.6; O2SAT 96–99; BMI 20.2
--- NOTE | ~2025-04-21 | CT_ITS ---
CLINICAL HISTORY: sepsis, unclear source CT abdomen and pelvis with contrast Comparison: 04/29/2024 Findings: Chest findings in chest CT report. Degenerative change spine and hips. No acute bony abnormalities. Liver and spleen within normal limits. Pancreas and adrenal glands unremarkable. Gallbladder is within normal limits. No significant focal renal abnormalities. Renal cysts, no stones or hydronephrosis. Abdominal aorta is normal in caliber. No free fluid or adenopathy in the pelvis. No diverticulitis. Appendix unremarkable. Large amount of stool in colon. Small caliber rectal tube. Impression: No acute process This document has been electronically signed by: Vinayak Salguero MD on 04/21/2025 23:28:58
--- NOTE | ~2025-04-21 | CT_ITS ---
CLINICAL HISTORY: sob, tachycarcia, on chemo for lung CA CT angiogram chest/pulmonary arteries with contrast Multiplanar reconstructions and MIPS Comparison: 01/22/2025 Findings: No filling defects are noted to suggest pulmonary embolus. Main pulmonary artery normal in caliber. Thoracic aorta normal caliber without dissection. Heart size normal. Great vessel origins patent. No coronary calcifications. Minimal residual left pleural effusion. Minimal posterior left lower lobe atelectasis. No other significant parenchymal abnormality. No significant mediastinal or hilar adenopathy. No acute bony abnormality noted. Impression: No evidence of pulmonary embolus This document has been electronically signed by: Vinayak Salguero MD on 04/21/2025 23:27:37
--- NOTE | ~2025-04-21 | US_ITS ---
CLINICAL HISTORY: sepsis, hydrocele suspected --- Additional Notes or Special Instructions: looking for source of infection, swelling more than usual US Scrotum with Doppler Comparison: US/SR - US SCROTUM - 04/05/25 07:36 EDT Findings: Right testicle normal echotexture, 3.5 x 3.3 x 3.5 cm. Left testicle, 4.2 x 2.4 x 3.0 cm. Echotexture unremarkable other than a 0.8 cm cyst. Normal Doppler color flow of both testicles. Epididymides are not visualized. Large complex hydrocele measuring up to 7.5 x 13.3 x 8.7 cm. No definite varicocele. IMPRESSION: 1. Large complex hydrocele. 2. No evidence of torsion or epididymo-orchitis. This document has been electronically signed by: Alex Butts DO on 04/22/2025 09:42:23
--- NOTE | ~2025-04-21 | XR_ITS ---
CLINICAL HISTORY: sob 1 view chest x-ray Comparison: 04/04/2025 Findings: Lungs are clear without acute infiltrates. No pneumothorax. Heart size normal. No acute bony abnormalities. Impression: No acute processes This document has been electronically signed by: Vinayak Salguero MD on 04/21/2025 22:46:33
--- NOTE | 2025-04-21 20:45 | ECG_ITS ---
Test Reason : WEAKNESS Blood Pressure : */* mmHG Vent. Rate : 87 BPM Atrial Rate : 87 BPM P-R Int : 160 ms QRS Dur : 134 ms QT Int : 374 ms P-R-T Axes : 26 -25 20 degrees QTcB Int : 450 ms Normal sinus rhythm Right bundle branch block Abnormal ECG When compared with ECG of 04-Apr-2025 10:30, No significant change was found Referred By: Buffy Ungre Electronically Signed By: MORENO TANNER
--- NOTE | 2025-04-21 21:05 | ED.GENADULT ---
HPI - General Adult General Chief complaint: Altered Mental Status Stated complaint: LKWT 1 hr. ago, AMS, 98.2, Rapid RR, warm to touch Time Seen by Provider: 04/21/25 20:37 Source: patient, family and EMS Mode of arrival: EMS Limitations: other History of Present Illness ED Provider: Dr. Buffy Unger HPI narrative: Patient comes to the emergency room via ambulance from home. According to the patient's granddaughter who is at bedside, patient is started out being very anxious. Seems that when he was at home, he was awake but not responding appropriately to the family. Patient did not have any complaints, no seizure-like activity. EMS picked up the patient, was not following commands. However, patient is only Turkmen speaking and the EMS crew does not speak Turkmen. When the patient arrived to the ED, patient was able to follow commands been no difficulty. However, patient states that he feels very weak, does not feel well and states that he feels short of breath. Per EMS, patient's oxygen saturation has been within normal limits. Related Data Home Medications ?Medication ?Instructions ?Recorded ?Confirmed atorvastatin 10 mg tablet 10 mg PO DAILY 05/08/20 04/13/25 blood sugar diagnostic #10 ea 10/04/20 04/13/25 lancets 33 gauge #100 ea 10/04/20 04/13/25 metformin 1,000 mg tablet 1,000 mg PO BID 10/04/20 04/13/25 multivitamin 1 tab PO DAILY 10/04/20 04/13/25 dapagliflozin propanediol 10 mg 10 mg PO DAILY 10/09/21 04/13/25 tablet (Farxiga) acetaminophen 325 mg tablet 650 mg PO Q6H PRN Pain 04/29/24 04/13/25 omeprazole 20 mg capsule,delayed 20 mg PO BID@0630,1630 04/29/24 04/13/25 release psyllium husk 3.4 gram/5.4 gram 1 tsp PO DAILY 04/29/24 04/13/25 oral powder (Metamucil) Previous Rx's ?Medication ?Instructions ?Recorded walker #1 ea 04/30/20 mtlfgl-uedszfgz-bwrtsuf 2 cap PO TID 30 days #180 caps 11/01/24 24,000-76,000-120,000 unit capsule,delayed rel (Creon) terazosin 5 mg capsule 5 mg PO BEDTIME 90 days #90 caps 02/21/25 magnesium oxide 400 mg PO DAILY #30 caps 03/22/25 dabrafenib 75 mg capsule 150 mg (2 x 75 mg) PO Q12H #120 03/23/25 caps trametinib 2 mg tablet (Mekinist) 2 mg PO DAILY #30 tabs 03/26/25 famotidine 20 mg tablet (Pepcid) 20 mg PO DAILY #30 tabs 03/30/25 ondansetron 8 mg disintegrating 8 mg PO Q8H PRN Nausea #30 tabs 03/30/25 tablet trazodone 50 mg tablet 50 mg PO BEDTIME #30 tabs 04/20/25 Allergies Allergy/AdvReac Type Severity Reaction Status Date / Time No Known Allergies (No Known Allergy Verified 04/21/25 21:55 Allergies*) Review of Systems Review of Systems: Constitutional : No Weight loss, No Fever, No Chills, No Night Sweats, patient complaining of fatigue, weakness, generalized malaise ENT/Mouth : No Hearing loss, No Ear Pain, No Nasal Congestion, No Sinus Pain, No Hoarseness, No sore throat, No Rhinorrhea, No Swallowing Difficulty Eyes: No Eye Pain, No Swelling, No Redness, No Foreign Body, No Discharge, No Vision Changes Cardiovascular : No Chest Pain, No Orthopnea, No Edema, No Palpitations Respiratory : No Cough, No Sputum, No Wheezing, No Smoke Exposure, complaining of feeling short of breath Gastrointestinal : No Nausea, No Vomiting, No Diarrhea, No Constipation, No abdominal Pain, No Hematochezia, No Melena Genitourinary : no irregular bleeding, No Dysuria, No Urinary Frequency, No Hematuria, No Urinary Incontinence, No Urgency, No Flank Pain, No Urinary Flow Changes, No Hesitancy Musculoskeletal : No joint pain, No Myalgias, No Joint Swelling Skin : No Skin Lesions, No rash Neuro : No Weakness, No Numbness, No Paresthesias, No Loss of Consciousness, complaining of dizziness reported as not feeling well, no headache Psych : No Anxiety/Panic, No Depression, No SI/HI/AH/VH, No Social Issues, Heme/Lymph: No Bruising, No Bleeding,No Lymphadenopathy Endocrine : No Polyuria, No Polydipsia, No Temperature Intolerance [facility] Past Medical History Medical History (Updated 04/22/25 @ 00:28 by Buffy Unger MD) Syncope and collapse 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) HLD (hyperlipidemia) GERD (gastroesophageal reflux disease) Exocrine pancreatic insufficiency Abdominal bloating Renal cyst Loose stools History of revision of total replacement of right knee joint Lung mass High cholesterol Anemia Pleural hemorrhage Diverticulosis Hyponatremia Acute hyponatremia Colon cancer screening Erectile dysfunction Gastritis COVID-19 virus infection Hydrocele Cataract Hypercholesteremia Diabetes BPH (benign prostatic hyperplasia) Hypertension Surgical History History of bilateral knee replacement Visit for wound check S/P chest tube placement Hx of colonoscopy History of prostate surgery Family History Family History Father Diabetes Mother Diabetes Uterus cancer Mother Cancer Social History Social History Household Members: Significant Other Housing: Apartment Housing Other:: Pt lives in senior housing Are you a primary healthcare consultant to a significant other at home: No Do you presently have visiting nurse or other home services: Yes Alcohol intake: never Comment: camera placed as pt is impulsive, attempts to get OOB. Hx falls recently Patient Tobacco Use Status: Never used Tobacco Smoked in Last 30 Days: No Advance Directives: No Advance Directives Information Provided: Yes Do you have a plan to hurt others: No Plan service: No Current occupational status: retired Current occupation: right handed Gender identity: Male Physical Exam ED Exam Exam: Appearance: Alert. Oriented X2 looks uncomfortable and weak. Seems slightly confused Eyes: Pupils equal, round and reactive to light. ENT: Pharynx normal. Neck: Normal inspection. Neck supple. No lymph nodes noted. No crepitus CVS: Normal heart rate and rhythm. Pulses normal. Normal S1 and S2 Respiratory: Slightly tachypneic, normal breath sounds, no wheezing, no rales or crackles Abdomen: Soft and nontender. No rigidity. No distention. Skin: Skin warm and dry. Normal skin color. Normal skin turgor. Extremities: No lower extremity edema. No Lacerations. No Rash Neuro: Oriented X2 . No motor deficit. No sensory deficit. Moving all extremities. No slurred speech. CN 2 through 12 grossly intact Psych: calm, cooperative, slightly confused Vital Signs: Vital Signs - 24 hr 04/21/25 20:55 04/21/25 21:52 04/21/25 21:58 Temperature 103.3 F H 103.3 F H Pulse Rate 106 H 106 H 92 Respiratory Rate 25 H Blood Pressure 150/71 H 150/71 H 118/57 L Pulse Oximetry 97 97 Oxygen Delivery Method Room Air Room Air 04/21/25 21:59 04/21/25 22:04 04/21/25 23:37 Temperature 99.7 F Pulse Rate 87 83 82 Respiratory Rate 23 H Blood Pressure 114/53 L 103/63 121/64 Pulse Oximetry 96 99 Oxygen Delivery Method Room Air Room Air 04/21/25 23:54 04/21/25 23:54 04/22/25 00:08 Temperature Pulse Rate 83 83 79 Respiratory Rate Blood Pressure 138/63 138/63 138/64 Pulse Oximetry Oxygen Delivery Method 04/22/25 00:08 Temperature Pulse Rate 79 Respiratory Rate Blood Pressure 138/64 Pulse Oximetry Oxygen Delivery Method BMI result Body Mass Index 20.2 Course Course Course Narrative: Patient feels very warm to touch. Rectal temperature pending. I reviewed patient's medical history. Patient does have history of lung cancer and is currently being treated with p.o. medications for cancer and also IV prembrolizumab every 3 weeks. Patient is receiving empiric treatment with IV fluids based on his actual weight of 60.4 kg and 2 g of cefepime All of patient's vitals, labs and imaging are pending Medications Administered Discontinued Medications Generic Name Dose Route Start Last Admin Trade Name Jordyq PRN Reason Stop Dose Admin Diazepam 2.5 mg 04/21/25 20:56 04/21/25 21:09 Diazepam 10 Mg/2 Ml Cartridge IVPUSH 04/21/25 20:57 2.5 mg STAT STA Administration Sodium Chloride 2,000 mls @ 999 mls/hr 04/21/25 20:55 04/21/25 23:05 Ns IVCONT 04/21/25 22:55 Infused .Q2H1M ONE Infusion Cefepime HCl 2 gm in 50 mls @ 100 mls/hr 04/21/25 20:55 04/21/25 21:39 Maxipime IV 04/21/25 21:24 Infused ONCE ONE Infusion Acetaminophen 1,000 mg in 100 mls @ 400 mls/hr 04/21/25 20:56 04/21/25 22:19 Ofirmev IV 04/21/25 21:10 Infused ONCE ONE Infusion Magnesium Sulfate/Dextrose 1 gm in 100 mls @ 100 mls/hr 04/21/25 22:02 04/21/25 23:18 Magnesium Sulfate/D5w IV 04/21/25 23:01 Infused ONCE ONE Infusion Ibuprofen 600 mg 04/21/25 23:38 04/22/25 00:21 Ibuprofen 600 Mg Tablet PO 04/21/25 23:39 600 mg ONCE ONE Administration Iohexol 100 ml 04/21/25 22:43 04/21/25 22:43 Iohexol 350 Mg/Ml 100 Ml Infus..Btl IV 04/21/25 22:44 100 ml ONCE ONE Administration Medical Decision Making Medical Decision Making [facility] Narrative: My interpretation of EKG: Normal sinus rhythm, right bundle-branch block, heart rate 87, no ST segment depression or elevation, abnormally shaped T-waves in V5 V6, previously seen another EKGs. No acute changes. At this time, 22:01, the lab called with patient's results. Patient's lactic acid is 4.0. Patient's white blood cell count within normal limits, patient's hematology at baseline. Blood gases within normal limits. Bicarb slightly decreased at 17. Patient's chemistry shows a sodium of 128, patient has had previous episodes of hyponatremia, magnesium 1.5, being repleted IV, troponin normal. Serology negative for COVID or influenza. At this time, 22:01, sepsis suspected. As mentioned above, when patient arrived, empirically received IV fluids based on ideal weight and IV antibiotics As of now, the source of infection remains unclear. CTA chest and CT scan of the abdomen pending. Patient known to be immunocompromised secondary to chemotherapy patient is not neutropenic. 00:10 - FOCUS exam was performed CT of the chest negative for PE or pneumonia. CT scan of the abdomen negative for any acute abnormality Urinalysis has +4 bacteria, small amount of leukocyte esterase. That would be the only source that may indicate why the patient is septic. Already been covered with IV fluids and antibiotics. It remains unclear why patient had such high fever, possible viral syndrome. I was informed by the patient's nurse that patient was retaining over 1000 cc of urine. Pat catheter being inserted. Urinalysis negative for UTI I discussed the patient with Dr. Campos from the Medicine team, patient being admitted Differential Diagnosis Differential Diagnoses: The differential diagnosis associated with the presentation includes (Influenza, COVID, pneumonia, UTI, viral syndrome, pulmonary embolism) Admission/Observation Consideration of admission/observation: Escalation of care including admission/observation considered Consult Healthcare Provider Management of the patient was discussed with: Hospitalist Lab Data MDM Lab Attestation statement: I reviewed the patient's lab results. 04/21/25 21:25 04/21/25 21:25 Labs: Lab Results 04/21/25 04/21/25 04/21/25 Range/Units 21:25 21:32 23:45 WBC 7.5 (4.8-10.8) X10*3/uL RBC 4.23 L (4.60-5.80) X10*6/uL Hgb 12.6 L (14.0-18.0) g/dl Hct 34.8 L (42.0-52.0) % MCV 82.3 (80.0-98.0) fL MCH 29.8 (27.0-33.0) pg MCHC 36.2 H (31.0-36.0) g/dl RDW 13.3 (11.0-16.0) % Plt Count 229 D (160-400) X10*3/uL MPV 8.6 L (9.4-12.4) fL Immature Gran % (Auto) 0.7 H (0.0-0.4) % Neut % (Auto) 86.6 H (45-73) % Lymph % (Auto) 5.3 L (20-40) % Newberry % (Auto) 7.3 (2-11) % Eos % (Auto) 0.0 (0-4) % Baso % (Auto) 0.1 (0-2) % Lymph # (Auto) 0.4 L (1.2-4.9) X10*3/uL Newberry # (Auto) 0.6 (0.1-1.2) X10*3/uL Eos # (Auto) 0.0 (0.0-0.4) X10*3/uL Baso # (Auto) 0.0 (0.0-0.2) X10*3/uL Abs Immat Gran (auto) 0.05 H (0.00-0.03) X10*3/uL Absolute Neuts (auto) 6.5 (2.0-8.3) x10*3/uL Absolute Nucleated RBC 0.000 (0.0-0.012) X10*3/uL Nucleated RBC % (auto) 0.0 (0.0-0.2) /100WBC VBG pH 7.38 (7.32-7.43) VBG pCO2 29 mmHg VBG pO2 65 mmHg VBG HCO3 17 L (22-26) mmol/L VBG O2 Saturation 88.0 % VBG Base Excess -6.2 mmol/L Sodium 128 L (135-145) mmol/L Potassium 4.0 (3.3-5.1) mmol/L Chloride 98 (96-108) mmol/L Carbon Dioxide 18 L (22-29) mmol/L Anion Gap 16 (12-20) BUN 30 H (9-16) mg/dL Creatinine 0.90 (0.5-1.4) mg/dL Estim Creat Clear Calc TNP Estimated GFR > 60 Random Glucose 156 H (60-115) mg/dL Lactic Acid 4.0 H* (0.5-2.0) mmol/L Lactic Acid F/U @ 2Hr 2.1 H* (0.5-2.0) mmol/L Calcium 9.1 D (8.4-10.2) mg/dL Magnesium 1.5 L (1.6-2.6) mg/dL Total Bilirubin 0.3 (0.0-1.0) mg/dL Direct Bilirubin 0.2 (0.0-0.5) mg/dL AST 27 (5-37) U/L ALT 11 (0-40) U/L Alkaline Phosphatase 110 (39-117) U/L Troponin I High Sens 13.0 D (<3.5-35.0) ng/L Total Protein 7.0 (6.5-8.0) g/dL Albumin 4.1 (3.5-5.0) g/dL TSH 1.27 (0.32-4.0) uIU/mL Urine Color Urine Appearance Urine pH (5.0-9.0) Ur Specific [place] (1.005-1.025) Urine Protein (Neg-Trace) mg/dL Urine Glucose (UA) (Negative) mg/dL Urine Ketones (Negative) mg/dL Urine Blood (Negative) Urine Nitrite (Negative) Ur Leukocyte Esterase (Negative) Urine RBC (0-2) /HPF Urine WBC (0-5) /HPF Ur Squamous Epith Cells (0-2) /HPF Urine Bacteria (None Seen) Hyaline Casts (0-2) /LPF COVID-19 (HERSON) Negative (Negative) COVID-19 Clin Com See Note Influenza Type A (MICHELLE) Negative (Negative) Influenza Type B (MICHELLE) Negative (Negative) Influenza A & B Note See Note 04/21/25 Range/Units 23:48 WBC (4.8-10.8) X10*3/uL RBC (4.60-5.80) X10*6/uL Hgb (14.0-18.0) g/dl Hct (42.0-52.0) % MCV (80.0-98.0) fL MCH (27.0-33.0) pg MCHC (31.0-36.0) g/dl RDW (11.0-16.0) % Plt Count (160-400) X10*3/uL MPV (9.4-12.4) fL Immature Gran % (Auto) (0.0-0.4) % Neut % (Auto) (45-73) % Lymph % (Auto) (20-40) % Newberry % (Auto) (2-11) % Eos % (Auto) (0-4) % Baso % (Auto) (0-2) % Lymph # (Auto) (1.2-4.9) X10*3/uL Newberry # (Auto) (0.1-1.2) X10*3/uL Eos # (Auto) (0.0-0.4) X10*3/uL Baso # (Auto) (0.0-0.2) X10*3/uL Abs Immat Gran (auto) (0.00-0.03) X10*3/uL Absolute Neuts (auto) (2.0-8.3) x10*3/uL Absolute Nucleated RBC (0.0-0.012) X10*3/uL Nucleated RBC % (auto) (0.0-0.2) /100WBC VBG pH (7.32-7.43) VBG pCO2 mmHg VBG pO2 mmHg VBG HCO3 (22-26) mmol/L VBG O2 Saturation % VBG Base Excess mmol/L Sodium (135-145) mmol/L Potassium (3.3-5.1) mmol/L Chloride (96-108) mmol/L Carbon Dioxide (22-29) mmol/L Anion Gap (12-20) BUN (9-16) mg/dL Creatinine (0.5-1.4) mg/dL Estim Creat Clear Calc Estimated GFR Random Glucose (60-115) mg/dL Lactic Acid (0.5-2.0) mmol/L Lactic Acid F/U @ 2Hr (0.5-2.0) mmol/L Calcium (8.4-10.2) mg/dL Magnesium (1.6-2.6) mg/dL Total Bilirubin (0.0-1.0) mg/dL Direct Bilirubin (0.0-0.5) mg/dL AST (5-37) U/L ALT (0-40) U/L Alkaline Phosphatase (39-117) U/L Troponin I High Sens (<3.5-35.0) ng/L Total Protein (6.5-8.0) g/dL Albumin (3.5-5.0) g/dL TSH (0.32-4.0) uIU/mL Urine Color Yellow Urine Appearance Clear Urine pH 7.0 (5.0-9.0) Ur Specific [place] >= 1.030 H (1.005-1.025) Urine Protein Trace (Neg-Trace) mg/dL Urine Glucose (UA) >=1000 H (Negative) mg/dL Urine Ketones Negative (Negative) mg/dL Urine Blood Negative (Negative) Urine Nitrite Negative (Negative) Ur Leukocyte Esterase Trace H (Negative) Urine RBC 0-2 (0-2) /HPF Urine WBC 6-10 H (0-5) /HPF Ur Squamous Epith Cells 0-2 (0-2) /HPF Urine Bacteria 4+ (None Seen) Hyaline Casts 0-2 (0-2) /LPF COVID-19 (HERSON) (Negative) COVID-19 Clin Com Influenza Type A (MICHELLE) (Negative) Influenza Type B (MICHELLE) (Negative) Influenza A & B Note Independent Interpretation I performed an independent interpretation of an: EKG, Plain X-Ray and CT Scan Radiology Impression Discussion of test interpretation with radiology: I have reviewed the radiologist's reading. Radiologist Impression: Lungs are clear without acute infiltrates. No pneumothorax. Heart size normal. No acute bony abnormalities. Impression: No acute processes No filling defects are noted to suggest pulmonary embolus. Main pulmonary artery normal in caliber. Thoracic aorta normal caliber without dissection. Heart size normal. Great vessel origins patent. No coronary calcifications. Minimal residual left pleural effusion. Minimal posterior left lower lobe atelectasis. No other significant parenchymal abnormality. No significant mediastinal or hilar adenopathy. No acute bony abnormality noted Chest findings in chest CT report. Degenerative change spine and hips. No acute bony abnormalities. Liver and spleen within normal limits. Pancreas and adrenal glands unremarkable. Gallbladder is within normal limits. No significant focal renal abnormalities. Renal cysts, no stones or hydronephrosis. Abdominal aorta is normal in caliber. No free fluid or adenopathy in the pelvis. No diverticulitis. Appendix unremarkable. Large amount of stool in colon. Small caliber rectal tube. Independent Historian Clinical information obtained from an independent historian. History obtained from or confirmed by: Other (Patient's granddaughter) External Record Review External record reviewed: Office record (Patient's last visit for oncology was in March with Dr. Morales) Chronic Conditions Patient?s care impacted by: Other ([id number] lung cancer) Critical Care Time Critical Care Time Critical Care Time: Yes Total Critical Care Time: 60 Attestation: I have personally provided critical care time. Time includes review of lab data, radiology results, discussion with consultants, and monitoring for potential decompensation. Intervention performed as documented. Discharge Plan Discharge Clinical Impression: Sepsis, Acute UTI, Acute urinary retention Patient Disposition: Admitted As Inpatient Print Language: Turkmen
[2025-04-21] MEDS: diazePAM 10 MG/2 ML CARTRIDGE 2.5 MG IVPUSH (21:09)
[2025-04-21] MEDS: cefEPime HCl/D5W 2 GM/50 ML PIGGYBACK IV (21:09)
[2025-04-21 21:32] LABS: MANUAL DIFF FLAG NO
[2025-04-21 21:33] LABS: Hematocrit 34.8 % (42.0-52.0); Hemoglobin 12.6 g/dl (14.0-18.0); Imm Gran Abs Auto 0.05 X10*3/uL (0.00-0.03); Imm Gran Pct Auto 0.7 % (0.0-0.4); Lymphocytes Absolute Auto 0.4 X10*3/uL (1.2-4.9); Mean Corpuscular HGB Conc 36.2 g/dl (31.0-36.0); Mean Corpuscular Hemoglobin 29.8 pg (27.0-33.0); Mean Corpuscular Volume 82.3 fL (80.0-98.0); NRBC Abs Auto 0.000 X10*3/uL (0.0-0.012); NRBC Pct Auto 0.0 /100WBC (0.0-0.2); Platelet Count 229 X10*3/uL (160-400); Red Blood Count 4.23 X10*6/uL (4.60-5.80); White Blood Count 7.5 X10*3/uL (4.8-10.8)
[2025-04-21 21:36] LABS: VBG HCO3 17 mmol/L (22-26); VBG O2 % Saturation 88.0 %
[2025-04-21 21:37] LABS: Venous Blood Gas Refer to POC result
[2025-04-21 21:48] LABS: Alanine Aminotransferase 11 U/L (0-40); Albumin Level 4.1 g/dL (3.5-5.0); Alkaline Phosphatase 110 U/L (39-117); Anion Gap 16 (12-20); Aspartate Amino Transferase 27 U/L (5-37); Blood Urea Nitrogen 30 mg/dL (9-16); COVID-19 Test Negative (Negative); Calcium 9.1 mg/dL (8.4-10.2); Carbon Dioxide 18 mmol/L (22-29); Chloride 98 mmol/L (96-108); Estimated Glomerular Filt Rate > 60; IDNOW Serial# 55D5AD1C; Magnesium 1.5 mg/dL (1.6-2.6); Potassium 4.0 mmol/L (3.3-5.1); Sodium 128 mmol/L (135-145); Total Protein 7.0 g/dL (6.5-8.0)
[2025-04-21 21:49] LABS: IDNOW Serial# 58CA691E; Influenza B2 Negative (Negative)
[2025-04-21 21:55] LABS: Troponin-I High Sensitivity 13.0 ng/L (<3.5-35.0)
--- OUTSIDE RECORDS SUMMARY | 2025-04-21 22:09 | XMS_ITS | Encounter Summary ---
Author Organization [employer] Address [address] [place] [address] Care Team Providers Care Almond Roaster Name Role Phone [facility] Primary Care Provider [phone] Encounter Details Date Type Department Care Team ([facility] st Contact Info) Description 08/11/2023 Orders Only [facility] MED[facility]INE [address], [place] [phone] [facility] [address], [place] [phone] Sensorineural hearing loss (SNHL) of both ears; Lower urinary tract symptoms (LUTS); Gait instability; Type 2 diabetes mellitus with hyperglycemia, without long-term current use of insulin ([facility]); Hammertoes of both feet; Diminished pulses [...] Care Team (Late st Contact Info) Description 05/11/2025 1:30 PM EDT Office Visit [facility] ADULT DENTAL [address] [place] [address] Cris, Nusrat [address] [place] [address] documented as of this encounter Procedures Procedure Name Priority Date/Time Associated Diagnosis Comments AMB REFERRAL TO ENT Routine 10/14/2023 Sensorineural hearing loss (SNHL) of both ears documented in this encounter Results * Referral to ENT (10/14/2023) Result [facility] OUTPATIENT REFERRAL ORDERABLE S Final Result documented in this encounter Visit Diagnoses Diagnosis Sensorineural hearing loss (SNHL) of both ears Lower urinary tract symptoms (LUTS) Gait instability Abnormality of gait Type 2 diabetes mellitus with hyperglycemia, without long-term current use of insulin (HCC) Hammertoes of both feet Diminished pulses in lower extremity Facial skin lesion documented in this encounter Additional Health Concerns Assessment Noted Time PHQ-9 Depression Total Score: 0 07/02/20 23 9:13 AM EST documented as of this encounter Care Teams Almond Roaster Relationship Specialty Start Date End Date Abbi Saha FNP [address] [place] [address] PCP - General Family Medicine 04/01/23 Noemi GARCIA 05/08/24 documented as of this encounter
--- OUTSIDE RECORDS SUMMARY | 2025-04-21 22:09 | XMS_ITS ---
Author Name Dineshmikaela TSERING, RN, RD, [place] Address [address] [place] [address] Phone [phone] [facility] Care Team Providers Care Straight Tooth Gear Generator Operator Name Role Phone Adeola Campuzano Unavailable [phone] Unavailable Unavailable Unavailable [facility] Unavailable TYLER LARES Unavailable [phone] [facility] Unavailable [facility] Unavailable [phone] Reason for Referral Not Available Allergies, adverse [...] 2023-01-05 No Data Available OneTouch Delica Plus [id number] Miscellaneous TEST BLOOD SUGAR TWICE DAILY 2022-08-20 [...] 5 mg Cap TAKE 1 CAPSULE BY [facility] AT BEDTIME 2023-06-15 No Data Available [...] intervention: Encourage increased fluid intakeCiprofloxacin 500mg BID [id number] Tylenol for pain or fever Encounters Encounters Type Facility Date of Service Diagnosis/Co mplaint Unlisted special service; to be used for medical record reviews and reporting CPTII codes (1111F, etc) [facility], ([place]) 05/27/2024 Encounter for other specifie d aftercare Unlisted special service; to be used for medical record reviews and reporting CPTII codes (1111F, etc) [facility], ([place]) 05/27/2024 Social History Sex Male History of Procedures Procedures Service Procedure code Service date Servicing provider Phone# Unlisted special service; to be used for medical record reviews and reporting CPTII codes (1111F, etc) 93[address] 2024-05-28 No Data Available No Data Availa ble Medications prescribed in hospital were reviewed and reconciled against what they were taking prior to admission during today's visit. (1111F) 1111F 2024-05-28 No Data Available No Data Availa ble Functional Status No Information Mental Status No Information Assessments Not Available Plan of Care Not Available
--- OUTSIDE RECORDS SUMMARY | 2025-04-21 22:09 | XMS_ITS | Encounter Summary ---
Author Organization [employer] Address [address] [place] [address] Care Team Providers Care Freight Car Inspector Name Role Phone [facility] Primary Care Provider [phone] Reason for Visit * Reason Comments Med Refill Encounter Details Date Type Department Care Team ([facility] Contact Info) Description 04/19/2025 Refill [facility] MED[facility] [address], [place] [phone] [facility] [address], [place] [phone] Other insomnia; Dyspepsia Social History Tobacco Use Types Packs/Day Years [...] Description 05/11/2025 1:30 PM EDT Office Visit [facility] ADULT DENTAL [address] [place] [address] Cris, Nusrat [address] [place] [address] documented as of this encounter Visit Diagnoses Diagnosis Other insomnia Dyspepsia Dyspepsia and other specified disorders of function of stomach documented in this encounter Additional Health Concerns Assessment Noted Time PHQ-9 Depression Total Score: 0 07/05/20 24 11:25 AM EST documented as of this encounter Care Teams Freight Car Inspector Relationship Specialty Start Date End Date Abbi Saha FNP [address] [place] [address] PCP - General Family Medicine 04/01/23 Noemi CORTESA 05/08/24 documented as of this encounter
--- OUTSIDE RECORDS SUMMARY | 2025-04-21 22:09 | XMS_ITS | Clinical Summary ---
Author Organization [employer] Address [address] [facility] [address] [place] [address] Care Team Providers Care Ham Curer Name Role Phone Abbi Saha [employer] Primary Care Provider [phone] Allergies No known active allergies Medications Diclofenac Sodium 1 % gel Apply 2 g topically every 6 (six) hours. 06/06/20 21 Active Lidocaine 4 % patch Apply to the affected area up to 3 times daily as needed Active sildenafil (Viagra) 100 MG tablet Take 1 tablet by mouth at bed time. Active Blood Glucose Monitoring Suppl ([employer] Verio) w/Device kitIndications: Type 2 diabetes mellitus without complication, without long-term current use of insulin (HCC) 1 kit before breakfast and before evening meal. 1 kit 06/24/20 22 Active acetaminophen (Tylenol) 325 MG tablet Take 2 tablets by mouth. Active cholecalciferol (Vitamin D-3) 50 MCG (2000 UT) capsule TAKE 1 CAPSULE BY MOUTH EVERYDAY AT NOON 11/27/19 22 Active ferrous sulfate 325 (65 Fe) MG tablet Take 1 tablet by mouth. 12/19/19 21 Active tamsulosin (Flomax) 0.4 MG 24 hr capsule Take 1 capsule (0.4 mg) by mouth in the morning. 30 capsule 1 04/02/20 23 Active terazosin (Hytrin) 5 MG capsule Take 5 mg by mouth at bedtime. 08/09/19 24 Active oxyCODONE (Roxicodone) 5 MG immediate release tablet 5 mg. 05/06/20 24 Active Creon 24152-39341 units capsule 2 capsules. 04/19/20 24 Active glucose blood (OneTouch Verio) test strip TEST BLOOD SUGAR TWICE A DAY 100 each 11 08/21/19 25 Active Multiple Vitamin (Multivitamin) tabletIndicatio ns:Type 2 diabetes mellitus with hyperglycemia, without long-term current use of insulin (HCC) TAKE 1 TABLET BY MOUTH EVERY EVENING WITH FOOD 90 tablet 3 08/23/19 25 Active metFORMIN (Glucophage) 1000 MG tabletIndicatio ns:Type 2 diabetes mellitus with hyperglycemia, without long-term current use of insulin (HCC) Take 1 tablet (1,000 mg) by mouth with breakfast and with evening meal. 60 tablet 11 09/08/19 25 026 Active SITagliptin (Januvia) 25 MG tabletIndicatio ns:Type 2 diabetes mellitus with hyperglycemia, without long-term current use of insulin (HCC) Take 1 tablet (25 mg) by mouth Once per day. 30 tablet 11 09/08/19 25 026 Active Lancets (OneTouch Delica Plus Brtoav32I) miscIndications :Elevated blood sugar TEST BLOOD SUGAR TWICE DAILY 100 each 11 10/07/19 25 Active Farxiga 10 MGIndications:T ype 2 diabetes mellitus with other specified complication, unspecified whether senior care insulin use (HCC) TAKE 1 TABLET BY MOUTH EVERY MORNING 90 tablet 1 12/30/19 25 Active atorvastatin (Lipitor) 10 MG tablet TAKE 1 TABLET BY MOUTH EVERY EVENING 90 tablet 2 01/25/20 25 Active mirtazapine (Remeron) 7.5 MG tabletIndicatio ns:Other insomnia TAKE 1 TABLET BY MOUTH AT BEDTIME 30 tablet 1 04/19/20 25 Active omeprazole (PriLOSEC) [address] capsuleIndicati ons:Dyspepsia TAKE 1 CAPSULE BY MOUTH TWICE DAILY 60 capsule 2 04/19/20 25 Active omeprazole (PriLOSEC) [address] capsuleIndicati ons:Dyspepsia TAKE 1 CAPSULE BY MOUTH TWICE DAILY 60 capsule 2 01/23/20 25 025 Discontinued mirtazapine (Remeron) 7.5 MG tabletIndicatio ns:Other insomnia TAKE 1 TABLET BY MOUTH AT BEDTIME 30 tablet 1 02/29/20 25 025 Discontinued Active Problems Problem Noted Date Diagnosed Date Primary malignant neoplasm o f left lung metastatic to other site 07/05/2024 Overview (07/05/2024): New dx of metastatic NSCLC 04/2024.-- Presented to [facility] w1 with acute SOB. CT [...] of metastatic disease. PET-CT performed 05/30/24 at [facility] showed FDG avid loculated left-sided pleural [...] 10/16/2022 Overview (10/25/2022): Healthcare Maintenance: C-scope: [facility] 2021, needs records PSA: Per urology HCV Screen: Neg 09/10 HIV Screen: Neg 09/10 Immunizations: UTD Weight loss 09/17/2022 Diabetes 09/11/2022 Overview (02/25/2024): Farxiga 10mg daily Metformin 1000mg b.i.d Januvia 25 mg daily Foot Exam: Risk 0; followed by podiatry ([place]) Eye Exam: [facility] Eye care Statin: Yes ASA: No [...] Repeat labs today Has upcoming appointment for [facility] eye care Assessment & Plan (10/25/2022 [...] Plan (05/19/2023 11:14 AM EDT): Compliant with [employer] agreement Only using tramadol 1x/week due to concern re addiction Advised patient OK to take tramadol at bedtime nightly if pain interfering with sleep Continue acetaminophen PRN during day Continue lidocaine patch Continue topical diclofenac gel Continue acupuncture PT referral for general gait instability Assessment & Plan (10/25/2022 1:09 PM EDT): Will refer to [employer]K SCREEN [employer] RN Hypertensive disorder 04/12/2017 Overview (02/25/2024): Losartan [...] Encounters Date Type Department Care Team Description 04/19/2025 Refill [facility] [address] [place] [address] Abbi Saha FNP Other insomnia; Dyspepsia 04/04/2025 Orders Only [facility] External Provider, [facility] 03/22/2025 Telephone [facility] [address] [place] [address] Abbi Saha FNP chart prep 02/28/2025 Refill [facility] [address] [place] [address] Abbi Saha FNP Other insomnia 02/02/2025 Telephone [facility] [address] [place] [address] Abbi Saha FNP Referral 01/31/2025 Telephone [facility] [address] [place] [address] Abbi Saha FNP Care Coordination 01/30/2025 10:45 AM EDT Office Visit [facility] [address] [place] [address] Swati Kan MD Abnormality of gait and mobility (Primary Dx) 01/30/2025 Travel 01/29/2025 Telephone [facility] [address] [place] [address] Abbi Saha FNP Chart prep 01/24/2025 Orders Only GENERIC EXTERNAL DATA DEPARTMENT Provider, Generic External Data 01/24/2025 Refill [facility] [address] [place] [address] Abbi Saha FNP 01/21/2025 Refill [facility] [address] [place] [address] Abbi Saha FNP Dyspepsia from Last 3 Months Immunizations Immunization Administration [...] Frequency of Binge Drinking Not on file 0411/2023 Score 0 10/22/2023 Depression Answer Date Recorded [...] Description 05/11/2025 1:30 PM EDT Office Visit [facility] ADULT DENTAL [address] [place] [address] Cris, Nusrat [address] [place] [address] Health Maintenance Due Date Last Done Comments [...] Procedure Name Priority Date/Time Associated Diagnosis Comments US SCROTUM Routine 04/05/2025 7:37 AM EDT URINALYSIS, COMPLETE, WITH REFLEX TO CULTURE Routine [...] CONTRAST Routine 01/22/2025 1 0:44 AM EDT POCT GLYCATED HEMOGLOBIN, TOTAL Routine 10/25/2024 9:24 AM EDT Type 2 diabetes mellitus with hyperglycemia, without long-term current use of insulin (CMS/[facility]) PROPHYLAXIS - ADULT Routine 09/26/2024 1 :00 [...] Recently Relevant to Health Maintenance Results * US Scrotum (04/05/2025 7:37 AM EDT) Anatomical Region Laterality Modality Body Ultrasound 04/05/2025 7:37 AM EDT Narrative 04/05/2025 8:15 AM EDT [place] [address] Ultrasound Report Signed Patient: Lei Drew MR#: [id number] : 1945 Acct:[id number] Age/Sex: 79 / M ADM Date: 04/04/25 Loc: [facility] 470-[address]: Tylor Mitchell DO Ordering Physician: Jenniffer Mcarthur MD Date of Service: 04/05/25 Procedure(s): US scrotum Accession Number(s): [id number] cc: Jenniffer Mcarthur MD; [facility] Reason for Exam: Worsening scrotal edema and pain EXAMINATION: US SCROTUM HISTORY: Worsening scrotal edema and pain. COMPARISON: There are no prior studies available for comparison. FINDINGS: Real-time grayscale ultrasound imaging of the scrotum was performed. RIGHT TESTICLE: The right testis measures 3.8 x 2.5 x 2.3 cm and demonstrates normal homogeneous echotexture. No masses are seen. The right testis demonstrates normal color Doppler flow. RIGHT EPIDIDYMIS: The right epididymal head is unremarkable. The remainder of the epididymis is not identified. LEFT TESTICLE: The left testis measures 4.4 x 2.3 x 4.2 cm and demonstrates normal homogeneous echotexture. There is a 5 mm testicular cyst. No solid mass is identified. The left testis demonstrates normal color Doppler flow. LEFT EPIDIDYMIS: The left epididymal head is unremarkable. The remainder of the epididymis is not identified. VARICOCELE: None. HYDROCELE: There is a small right hydrocele. There is a large complex left hydrocele containing numerous internal echoes, measuring approximately 12.0 x 7.3 x 6.9 cm, for an estimated volume of 317 mL. OTHER COMMENTS: None. US/US scrotum IMPRESSION: Large complex left hydrocele. Small right hydrocele. Electronically signed by: Jerzy Mosqueda MD 04/05/2025 08:13 AM EDT Dictated By: Jerzy Mosqueda MD Signed By: <Electronically signed by Jerzy Mosqueda MD in OV> 04/05/25 0813 DD/ TD/TT: 04/05/25 0747 Engineering Writer: Procedure Note Donotuseinterpreter, Image - 04/05/2025 [place] [address] Ultrasound Report Signed Patient: Scottie Drew#: [id number] : 6Acct:[id number] Age/Sex: 79 / MADM Date: 04/04/25 Loc: [facility] 470-[address]: Tylor Mitchell DO Ordering Physician: Jenniffer Mcarthur MD Date of Service: 04/05/25 Procedure(s): US scrotum Accession Number(s): [id number] cc: Jenniffer Mcarthur MD; [facility] Reason for Exam: Worsening scrotal edema and pain EXAMINATION: US SCROTUM HISTORY: Worsening scrotal edema and pain. COMPARISON: There are no prior studies available for comparison. FINDINGS: Real-time grayscale ultrasound imaging of the scrotum was performed. RIGHT TESTICLE: The right testis measures 3.8 x 2.5 x 2.3 cm and demonstrates normal homogeneous echotexture. No masses are seen. The right testis demonstrates normal color Doppler flow. RIGHT EPIDIDYMIS: The right epididymal head is unremarkable. The remainder of the epididymis is not identified. LEFT TESTICLE: The left testis measures 4.4 x 2.3 x 4.2 cm and demonstrates normal homogeneous echotexture. There is a 5 mm testicular cyst. No solid mass is identified. The left testis demonstrates normal color Doppler flow. LEFT EPIDIDYMIS: The left epididymal head is unremarkable. The remainder of the epididymis is not identified. VARICOCELE: None. HYDROCELE: There is a small right hydrocele. There is a large complex left hydrocele containing numerous internal echoes, measuring approximately 12.0 x 7.3 x 6.9 cm, for an estimated volume of 317 mL. OTHER COMMENTS: None. US/US scrotum IMPRESSION: Large complex left hydrocele. Small right hydrocele. Electronically signed by: Jerzy Mosqueda MD 04/05/2025 08:13 AM EDT RP Dictated By: Jerzy Mosqueda MD Signed By: <Electronically signed by Jerzy Mosqueda MD in OV> 04/05/25 0813 DD/ 0737 TD/TT: 04/05/25 0747 Engineering Writer: us [facility] External Provider IMG US PROCEDURES Edited Result - Final * (ABNORMAL) Urinalysis, Complete, with Reflex to Culture (04/04/2025 12:15 PM EDT) Color Urine Yellow [facility] Appearance Urine Clear [facility] PH 5.5 5.0 - 9.0 [facility] Glucose Urine UA >=1000(A) Negative mg/dL [facility] Urine Blood Negative Negative [facility] Specific [place] - Urine >=1.030(H) 1.005 - 1.025 [facility] Urine Protein Negative Neg-Trace mg/dL [facility] Urine Ketones Trace Negative mg/dL [facility] Nitrite Urine Negative Negative [facility] Leukocyte Esterase Urine Negative Negative [facility] RBC Urine 0-2 0 - 2 /HPF [facility] Urine WBC 0-5 0 - 5 /HPF [facility] Urine Squamous Epithelial Cell 0-2 0 - 2 /HPF [facility] Urine Bacteria None Seen None Seen [facility] Hyaline Casts, Urine 0-2 0 - 2 /LPF [facility] 04/04/2025 12:1 5 PM EDT 04/04/2025 12:19 PM EDT [facility] - 04/04/2025 12:28 PM EDT Urine, Catheterized us Generic External Data Provider LAB URINE ORDERAB LES Final Result Performing Organization Address [facility]/ZIP Co de Phone Number [facility] [address] [place] [address] [phone] * (ABNORMAL) Urinalysis w/reflex microscopic (04/04/2025 12:15 PM EDT) Color Urine Yellow [facility] Appearance Urine Clear [facility] PH 5.5 5.0 - 9.0 [facility] Glucose Urine UA >=1000(A) Negative mg/dL [facility] Urine Blood Negative Negative [facility] Specific [place] - Urine >=1.030(H) 1.005 - 1.025 [facility] Urine Protein Negative Neg-Trace mg/dL [facility] Urine Ketones Trace Negative mg/dL [facility] Nitrite Urine Negative Negative [facility] Leukocyte Esterase Urine Negative Negative [facility] 04/04/2025 12:1 5 PM EDT 04/04/2025 12:19 PM EDT [facility] - 04/04/2025 12:25 PM EDT Urine, Catheterized Generic External Data Provider LAB URINE ORDERAB LES Final Result Performing Organization Address [facility] [[email or web address]] Co de Phone Number [facility] [address] [place] [address] [phone] * CT Cervical Spine w/o Contrast (04/04/2025 11:35 AM EDT) Anatomical Region Laterality Modality Spine, C-spine Computed Tomogra phy 04/04/2025 11:3 5 AM EDT Narrative 04/04/2025 12:06 PM EDT [address] [address] [address] Scan Report Signed Patient: Lei Drew MR#: [id number] : 1945 Acct:[id number] Age/Sex: 79 / M ADM Date: 04/04/25 Loc: HO.ED Attending Dr: Ordering Physician: Crescencio Clark MD Date of Service: 04/04/25 Procedure(s): CT cervical spine wo IV con Accession Number(s): [id number] cc: Crescencio Clark MD; [facility] Report Number: [id number]: Total DLP = 268.00 mGy-cm Reason for [...] 04/04/25 1203 DD/ 1135 TD/TT: 04/04/25 1148 Engineering Writer: Procedure Note Donotuseinterpreter, Image - 04/04/[address] [place] [address] [address] Scan Report Signed Patient: Scottie Drew#: [id number] : 1945cct:[id number] Age/Sex: 79 / MADM Date: 04/04/25 Loc: .ED Attending Dr: Ordering Physician: Crescencio Clark MD Date of Service: 04/04/25 Procedure(s): CT cervical spine wo IV con Accession Number(s): [id number] cc: Crescencio Clark MD; [facility] Report Number: [id number]: Total DLP = 268.00 mGy-cm Reason for [...] 04/04/25 1203 DD/ 1135 TD/TT: 04/04/25 1148 Engineering Writer: [facility] External Provider IMG CT PROCEDURES Edited Result - Final * CT Head w/o Contrast (04/04/2025 11:35 AM EDT) Anatomical Region Laterality Modality Head, Neck Computed Tomogra phy 04/04/2025 11:3 5 AM EDT Narrative 04/04/2025 12:11 PM EDT [address] [address] [address] Scan Report Signed Patient: Lei Drew MR#: [id number] : 1945 Acct:[id number] Age/Sex: 79 / M ADM Date: 04/04/25 Loc: HO.ED Attending Dr: Ordering Physician: Crescencio Clark MD Date of Service: 04/04/25 Procedure(s): CT head/brain wo IV con Accession Number(s): [id number] cc: Crescencio Clark MD; [facility] Report Number: [id number]: Total DLP = 704.00 mGy-cm Reason for [...] 04/04/25 1209 DD/ 1135 TD/TT: 04/04/25 1148 Engineering Writer: Procedure Note Donotuseinterpreter, Image - 04/04/[address] [address] [address] Scan Report Signed Patient: Scottie Drew#: [id number] : 1945cct:[id number] Age/Sex: 79 / MADM Date: 04/04/25 Loc: HO.ED Attending Dr: Ordering Physician: Crescencio Clark MD Date of Service: 04/04/25 Procedure(s): CT head/brain wo IV con Accession Number(s): [id number] cc: Crescencio Clark MD; [facility] Report Number: [id number]: Total DLP = 704.00 mGy-cm Reason for [...] 04/04/25 1209 DD/ 1135 TD/TT: 04/04/25 1148 Engineering Writer: [facility] External Provider IMG CT PROCEDURES Edited Result - Final * XR Chest 2 Views (04/04/2025 11:24 AM EDT) Anatomical Region Laterality Modality Chest Radiographic Brianna ging 04/04/2025 11:2 4 AM EDT Narrative 04/04/2025 11:31 AM EDT [place] [address] XRay Report Signed Patient: Lei Drew MR#: [id number] : 1945 Acct:[id number] Age/Sex: 79 / M ADM Date: 04/04/25 Loc: .ED Attending Dr: Ordering Physician: Patricia Kerr Date of Service: 04/04/25 Procedure(s): XR chest 2V Accession Number(s): [id number] cc: Patricia Kerr; [facility] Reason for Exam: syncope EXAMINATION: XR CHEST [...] 04/04/25 1129 DD/ 1124 TD/TT: 04/04/25 1124 Engineering Writer: Procedure Note Donotuseinterpreter, Image - 04/04/2025 [place] [address] XRay Report Signed Patient: Scottie Drew#: [id number] : 1945cct:[id number] Age/Sex: 79 / MADM Date: 04/04/25 Loc: .ED Attending Dr: Ordering Physician: Patricia Kerr Date of Service: 04/04/25 Procedure(s): XR chest 2V Accession Number(s): [id number] cc: Patricia Kerr; [facility] Reason for Exam: syncope EXAMINATION: XR CHEST [...] 04/04/25 1129 DD/ 1124 TD/TT: 04/04/25 1124 Engineering Writer: [facility] External Provider IMG XR PROCEDURES Edited Result - Final * PSA,Total (01/24/2025 9:16 AM EDT) Prostate Specific Antigen 1.91 <0.05 - 4.0 ng/mL [facility] Comment:PSA methodology: Willa Velasquez i ChemiluminescentMicroparticle Immunoassay (CMIA) 01/24/2025 9:16 AM EDT 01/24/2025 9:16 AM EDT Generic External Data Provider LAB BLOOD ORDERAB LES Final Result Performing Organization Address City/State/[facility] [[email or web address]] Co de Phone Number [facility] [address] [place] [phone] * CT Chest w/ Contrast (01/22/2025 10:44 AM EDT) Anatomical Region Laterality Modality Body, Chest Computed Tomogra phy 01/22/2025 10:4 4 AM EDT Narrative 01/22/2025 1:38 PM EDT [address] [address] [address] Scan Report Signed Patient: Lei Drew MR#: [id number] : 1945 Acct:[id number] Age/Sex: 79 / M ADM Date: 01/22/25 Loc: HO.CT Attending Dr: Tabatha Quintero NP Ordering Physician: Tabatha Quintero NP Date of Service: 01/22/25 Procedure(s): CT chest w IV con Accession Number(s): [id number] cc: Louisa Morales MD; Tabatha Quintero NP; [facility] Report Number: [id number]: Total DLP = 115.00 mGy-cm EXAMINATION: CT [...] 01/22/25 1335 DD/ 1044 TD/TT: 01/22/25 1115 Engineering Writer: Procedure Note Donotuseinterpreter, Image - 01/22/[address] [address] [address] Scan Report Signed Patient: Scottie Drew#: [id number] : 6Acct:[id number] Age/Sex: 79 / MADM Date: 01/22/25 Loc: HO.CT Attending Dr: Tabatha Quintero NP Ordering Physician: Tabatha Quintero NP Date of Service: 01/22/25 Procedure(s): CT chest w IV con Accession Number(s): [id number] cc: Louisa Morales MD; Tabatha Quintero NP; [facility] Report Number: [id number]: Total DLP = 115.00 mGy-cm EXAMINATION: CT [...] 01/22/25 1335 DD/ 1044 TD/TT: 01/22/25 1115 Engineering Writer: [facility] External Provider IMG CT PROCEDURES Final Result * (ABNORMAL) POCT HGB A1C (10/25/2024 9:24 AM EDT) [facility] Hemoglobin A1C 6.7(A) 4.0 - 6.0 % QC Media Lot # [id number] Lot# Expiration Date Blood 10/25/2024 9:24 AM EDT [facility] [employer] POINT OF CARE TEST ENTER/EDIT ORDERABLES Final Result * Albumin, Random Urine W/Creatinine (05/03/2023 8:36 AM EDT) Creatinine, Urine 54.13 mg/dL [facility] Microalbumin Urine 8.0 mg/L [facility] Microalbum Creatinine Ratio Ur 14.7 <30 ug/mg cr [facility] Comment:Albumin/Creatinine R atio Reference Ranges: Normal: < 30 ug/mg creatinine Microalbuminuria: 30 - 300 ug/mg creatinineClinical Albuminuria: > 300 ug/mg creatinine Urine 05/03/2023 8:36 AM EDT 05/03/2023 11:07 AM EDT [facility] LAB URINE ORDERABLES Final Re sult Performing Organization Address [facility] [[email or web address]] Co de Phone Number [facility] [address] [place] [address] [phone] * Lipid Panel, Standard (05/03/2023 8:36 AM EDT) Triglycerides 83 <150 mg/dL [facility] Comment:Desirable Triglyceri de: less than 150 mg/dLBorderline High Triglyceride 150-199 mg/dLHigh Triglyceride: 200-499 mg/dLVery High Triglyceride: greater than or equal to 5OO mg/dL Cholesterol 136 <200 mg/dL [facility] Comment:Desirable Cholestero l: less than 200 mg/dLBorderline High Cholesterol: 200-239 mg/dLHigh Cholesterol: greater than 239 mg/dL LDL Cholesterol Calculated 54 <100 mg/dL [facility] Comment:Desirable LDL: less than 100 mg/dLNear Optimal/Above Optimal LDL: 110- 129 mg/dLBorderline High LDL: 130-159 mg/dLHigh LDL: 160-189 mg/dLVery High LDL: greater than or equal to 190 mg/dL HDL Cholesterol 66 >40 mg/dL [facility] Comment:Desirable HDL: great er than 40 mg/dL Note: This HDL assay may give artificially low results in patients with liver disease. Blood Venous blood specimen / Unknown 05/03/2023 8:36 AM EDT 05/03/2023 11:13 AM EDT [facility] LAB BLOOD ORDERABLES Final Re sult Performing Organization Address [facility] [[email or web address]] Co de Phone Number [facility] [address] [place] [address] [phone] * Hepatitis C Antibody with Reflex to HCV, RNA, Quantitative, Real-Time PCR (09/11/2022 3:09 PM EST) Hepatitis C Antibody NON-REACT VAHID NON-REACT VAHID [employer] Index <0.02 <1.00 [employer] Comment: HCV antibody was non-reactive. There is no laboratory evidence of HCV infection. In most cases, no further action is required. However, if recent HCV exposure is suspected, a test for HCV RNA (test code 74395) is suggested. For additional information please refer to http://education.[employer]/faq/HUV59a2 (This link is being provided for informational/ educational purposes only.) Blood Venous blood specimen / Unknown 09/11/2022 3:09 PM EST 09/11/2022 3:09 PM EST Narrative [facility] - 09/14/2022 1:32 PM EST FASTING:NO FASTING: NO [facility] LAB BLOOD ORDERABLES Final Re sult [facility] [address], [place] [address] [employer] [place] [employer] [address], ([address]) [place] [address] from Last 3 Months or Most Recently Relevant to Health Maintenance Insurance [facility] Care Teams Ham Curer Relationship Specialty Start Date End Date [facility] [address] [place] [id number] PCP - General Family Medicine 04/01/23 [place] [facility] 05/08/24
--- OUTSIDE RECORDS SUMMARY | 2025-04-21 22:09 | XMS_ITS | Encounter Summary ---
Author Organization [employer] Address [address] [facility] 7t [place] [address] Care Team Providers Care Psychiatry Teacher Name Role Phone [facility] Primary Care Provider [phone] Reason for Visit * Reason Comments Med Refill Encounter Details Date Type Department Care Team ([facility] Contact Info) Description 07/16/2024 Refill [facility] MEDICINE [address], [place] [phone] [facility] [address] [place] [address] Type 2 diabetes mellitus with hyperglycemia, without long-term current use of insulin ([facility]) Social History Tobacco Use Types Packs/Day Years [...] Description 05/11/2025 1:30 PM EDT Office Visit [facility] ADULT DENTAL [address] [place] [address] Yobany Lyncharis [address] [place] [address] documented as of this encounter Visit Diagnoses Diagnosis Type 2 diabetes mellitus with hyperglycemia, without long-term current use of insulin (HCC) documented in this encounter Additional Health Concerns Assessment Noted Time PHQ-9 Depression Total Score: 0 07/05/20 24 11:25 AM EST documented as of this encounter Care Teams Psychiatry Teacher Relationship Specialty Start Date End Date Abbi Saha FNP [address] [place] [address] PCP - General Family Medicine 04/01/23 [place] RADHA 05/08/24 documented as of this encounter
--- OUTSIDE RECORDS SUMMARY | 2025-04-21 22:09 | XMS_ITS | Clinical Summary ---
Author Organization [facility] Address [address] [place] [address] Phone Care Team Providers Care Operations Officer Name Role Phone Unavailable Primary Care Provider Unavailabl e Encounters Date Type Department Care Team Description 03/07/2025 12:57 PM EDT - 03/07/2025 11:59 PM EDT Hospital Encounter [facility] PET Scan [address] [place] [address] Malignant neoplasm of unspecified part [...] unspecified part of unspecified bronchus or lung ([facility] V24, [facility] V28) from Last 3 Months Results * [...] Signed Date: 03/09/2025 14:05 ET Workstation ID: [id number] Transcribed By: Self Edit Transcribed Date: 03/09/2025 [...] Signed Date: 03/09/2025 14:05 ET Workstation ID: [id number] Transcribed By: Self Edit Transcribed Date: 03/09/2025 13:53 ET Tabatha Quintero APN IMG NM PROCEDURES Final Re sult from Last 3 Months Insurance [address] [place] [id number] [place] [address]
--- OUTSIDE RECORDS SUMMARY | 2025-04-21 22:09 | XMS_ITS | Encounter Summary ---
Author Organization [employer] Address [address] [facility] 7[address] [place] [address] Care Team Providers Care Asphalt Mixer Name Role Phone Sandy Torrez MD Primary Care Provider Unava ilable [facility] Primary Care Provider [phone] Gogo Palacio [facility] Primary Care Provider [phone] [facility] Primary Care Provider [phone] Encounter Details Date Type Department Care Team (Latest Contact Info) Description 07/17/2019 Abstract [facility] CONVERSIONS Dental, Provider, DDS Social History Tobacco [...] Description 05/11/2025 1:30 PM EDT Office Visit [facility] ADULT DENTAL [address] [place], [place] [phone] Cris, Nusrat [address] [place], [place] [phone] documented as of this encounter Visit Diagnoses Not on filedocumented in this encounter Care Teams Asphalt Mixer Relationship Specialty Start Date End Date Sandy Torrez MD PCP - General Family Medicine 01/09/20 06/22/22 [place] [facility] [address] [place] [address] PCP - General Family Medicine 06/23/22 03/28/23 Gogo Palacio FNP [address] [place] [address] PCP - General Family Medicine 03/29/23 03/31/23 [place] FNP [address] [place] [address] PCP - General Family Medicine 04/01/23 Noemi A 05/08/24 documented as of this encounter
--- OUTSIDE RECORDS SUMMARY | 2025-04-21 22:09 | XMS_ITS | Encounter Summary ---
Author Organization [employer] Address [address] [facility] 7[address] [place] [address] Care Team Providers Care Patient Admitting Clerk Name Role Phone Sandy Torrez MD Primary Care Provider Unava ilable [facility] Primary Care Provider [phone] Gogo Palacio [facility] Primary Care Provider [phone] [facility] Primary Care Provider [phone] Encounter Details Date Type Department Care Team (Latest Contact Info) Description 06/23/2021 Abstract [facility] CONVERSIONS Dental, Provider, DDS Social History [...] Description 05/11/2025 1:30 PM EDT Office Visit [facility] ADULT DENTAL [address] [place], [place] [phone] Cris Nusrat [address] [place], [place] [phone] documented as of this encounter Visit Diagnoses Not on filedocumented in this encounter Care Teams Patient Admitting Clerk Relationship Specialty Start Date End Date Sandy Torrez MD PCP - General Family Medicine 01/09/20 06/22/22 [place] [facility] [address] [place] [address] PCP - General Family Medicine 06/23/22 03/28/23 Gogo Palacio FNP [address] [place] [address] PCP - General Family Medicine 03/29/23 03/31/23 [place] FNP [address] [place] [address] PCP - General Family Medicine 04/01/23 Noemi A 05/08/24 documented as of this encounter
--- OUTSIDE RECORDS SUMMARY | 2025-04-21 22:09 | XMS_ITS | Clinical Summary ---
Author Organization [facility] Address [address] [facility] [address] [place] [address] Phone Care Team Providers Care Chemic Mangler Name Role Phone Maria A Abbi Primary Care Provider [phone] Allergies No known active allergies Medications Multiple [...] Visit [facility] [address] [address] Rosanna Zamudio ARNP [address] [phone] Health Maintenance Due Date Last Done Comments [...] [facility] Medicare Medicaid [place] Care Teams Chemic Mangler Relationship Specialty Start Date End Date Abbi Saha [address] [place] [phone] [facility] 11/22/24
[2025-04-21] MEDS: iohexoL 350 MG/ML 100 ML INFUS..BTL IV (22:43)
[2025-04-21 23:30] LABS: Reflex Lactate? Lactic Acid Added
[2025-04-21 23:54] LABS: Appearance Urine Clear; Glucose Urine UA >=1000 mg/dL (Negative); PH 7.0 (5.0-9.0); Specific Gravity - Urine >= 1.030 (1.005-1.025); UMIC TRIGGER UACC YES
[2025-04-21 23:59] LABS: UACC Culture Trigger YES
[2025-04-22] VITALS (9 sets, daily range): BP systolic 115–163; BP diastolic 59–75; PULSE 70–102; RESP 16–20; TEMP 37.1–38.2; O2SAT 95–99; BMI 19.9
[2025-04-22 00:18] LABS: ~Lactic Acid-LAB USE ONLY 2.1 mmol/L (0.5-2.0)
--- NOTE | 2025-04-22 01:09 | PM.IMHP ---
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 Patient currently lives with spouse and daughter arrived and noted patient was trying to get out of the wheelchair and almost fell. Daughter was able to catch patient prior to fall. No fall occurred. Patient was shaking incessantly and felt very hot to the touch. Patient was also confused and not at his baseline. Patient kept expressing ?I want to pee?. Blood glucose at the time was 01:40. Daughter was unable to obtain blood pressure due to patient's shaking. 911 was called and when EMS arrived, patient remains alert but noted to have fever. Patient has not had an episode like this since starting treatment for his lung cancer. Patient has been on the pill therapy for approximately 4 weeks with a 1 week break during this interim due to a fainting spell which patient was admitted for here at [facility]. Oncology concluded that the fainting spell was not related to the oral chemotherapy. On arrival to the ED patient was febrile with a rectal temp of 103.3 degrees. Sepsis protocol was initiated patient received IV hydration per sepsis protocol at 30 mL/kilogram. Lactic acid 4.0 and after fluids is now 2.1. Fluids continue. Patient was started on Zosyn and vancomycin has been added. Labs did not note neutropenic presentation. Patient was scanned for abdomen and chest and both negative for any acute findings including pneumonia, PE or colitis. Patient has not been having issues with aspiration or swallowing. Appetite has been good. Family denied that patient has been having issues with diarrhea or constipation. Bladder scan positive for 1000 mL and patient was straight cath and urine sample sent. UA inconclusive for true UTI noting trace leukocyte esterase and white blood cells 6-10 but urine cultures pending. Low likelihood of tumor lysis syndrome considering patient's type of cancer with likely non bulky tumor. Potassium and calcium are normal. Uric acid, phosphorus, LDH, haptoglobin are pending. Patient does have a pressure ulcer in the right sacral area with evidence of possible frictional tear. Wound culture will be sent. Magnesium low at 1.5 and supplementation started IV in the ED. Patient being admitted for sepsis, source not 100% clear. Patient is having significant urinary retention issues with known BPH. Review of Systems Review of Systems: Yes Unobtainable due to mental condition (Altered mental status with confusion) [facility] Medical History Syncope and collapse 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) HLD (hyperlipidemia) GERD (gastroesophageal reflux disease) Exocrine pancreatic insufficiency Abdominal bloating Renal cyst Loose stools History of revision of total replacement of right knee joint Lung mass High cholesterol Anemia Pleural hemorrhage Diverticulosis Hyponatremia Acute hyponatremia Colon cancer screening Erectile dysfunction Gastritis COVID-19 virus infection Hydrocele Cataract Hypercholesteremia Diabetes BPH (benign prostatic hyperplasia) Hypertension Cognitive capacity: Awake and alert interacting with daughter Functional capacity: bed bound Family History Father Diabetes Mother Diabetes Uterus cancer Mother Cancer Surgical History History of bilateral knee replacement Visit for wound check S/P chest tube placement Hx of colonoscopy History of prostate surgery Social History Household Members: Significant Other Housing: Apartment Housing Other:: Pt lives in senior housing Are you a primary home care physical therapist to a significant other at home: No Do you presently have visiting nurse or other home services: Yes Alcohol intake: never Comment: camera placed as pt is impulsive, attempts to get OOB. Hx falls recently Patient Tobacco Use Status: Never used Tobacco Smoked in Last 30 Days: No Advance Directives: No Advance Directives Information Provided: Yes Do you have a plan to hurt others: No Plan service: No Current occupational status: retired Current occupation: right handed Gender identity: Male Ebola Risk: Travel/Contact With Anyone From Affected Area/s: No Has Patient Experienced Ebola Symptoms: No Meds Allergies Allergy/AdvReac Type Severity Reaction Status Date / Time vancomycin Allergy Intermediate Redness of Verified 10/05/25 04:43 Skin Home Medications ?Medication ?Instructions ?Recorded ?Confirmed ?Last Taken ?Type atorvastatin 10 mg tablet 10 mg PO DAILY 05/08/20 04/13/25 07/01/20 History blood sugar diagnostic #10 ea 10/04/20 04/13/25 Unknown History lancets 33 gauge #100 ea 10/04/20 04/13/25 Unknown History metformin 1,000 mg tablet 1,000 mg PO BID 10/04/20 04/13/25 Unknown History multivitamin 1 tab PO DAILY 10/04/20 04/13/25 Unknown History dapagliflozin propanediol 10 mg 10 mg PO DAILY 10/09/21 04/13/25 05/03/24 History tablet (Farxiga) acetaminophen 325 mg tablet 650 mg PO Q6H PRN Pain 04/29/24 04/13/25 Unknown History omeprazole 20 mg capsule,delayed 20 mg PO BID@0630,1630 04/29/24 04/13/25 Unknown History release psyllium husk 3.4 gram/5.4 gram 1 tsp PO DAILY 04/29/24 04/13/25 Unknown History oral powder (Metamucil) Physical Exam Vital Signs and Narrative: Vital Signs: Last Vital Signs Temp 99.7 F 04/21/25 23:37 Pulse 79 04/22/25 00:08 Resp 23 H 04/21/25 23:37 BP 138/64 04/22/25 00:08 Pulse Ox 99 04/21/25 23:37 O2 Del Method Room Air 04/21/25 23:37 BMI result Body Mass Index 20.2 Awake, speaking Bengali, unable to give history Neuro: Cranial nerves 2-12 intact as patient can follow commands and is able to protect airway EYES: PERRLA, EOM intact, sclerae nonicteric ENT: hearing intact, no issues with swallowing, uvula midline, lips and oral mucosa dry, nares patent no epistaxis Cardiac: S1 S2 RRR, no murmur, no JVD, no edema in Lower ext Pulmonary: lungs diminished bilaterally Abdominal: BS active in all 4 quadrants, no guarding, tenderness, rebounding MSK: strength3/5 upper and lower extremities : no CVA tenderness, bladder retention noted on arrival of 1000 cc Extremities: no edema in lower extremities, PT and DP pulses palpable +2 Psych: mood confused, judgement and insight poor Skin: New pressure ulcer right buttocks/sacral area, friction tear noted scrotal edema suspect hydrocele Results Labs 04/21/25 21:25 04/21/25 21:25 Labs: Laboratory Results - last 24 hr 04/21/25 04/21/25 04/21/25 21:25 21:32 23:45 MCV 82.3 MCH 29.8 MCHC 36.2 H RDW 13.3 Plt Count 229 D MPV 8.6 L Immature Gran % (Auto) 0.7 H Neut % (Auto) 86.6 H Lymph % (Auto) 5.3 L Nash % (Auto) 7.3 Eos % (Auto) 0.0 Baso % (Auto) 0.1 Lymph # (Auto) 0.4 L Nash # (Auto) 0.6 Eos # (Auto) 0.0 Baso # (Auto) 0.0 Abs Immat Gran (auto) 0.05 H Absolute Neuts (auto) 6.5 Absolute Nucleated RBC 0.000 Nucleated RBC % (auto) 0.0 VBG pH 7.38 VBG pCO2 29 VBG pO2 65 VBG HCO3 17 L VBG O2 Saturation 88.0 VBG Base Excess -6.2 Anion Gap 16 Estim Creat Clear Calc TNP Estimated GFR > 60 Random Glucose 156 H Lactic Acid 4.0 H* Lactic Acid F/U @ 2Hr 2.1 H* Calcium 9.1 D Magnesium 1.5 L Total Bilirubin 0.3 Direct Bilirubin 0.2 AST 27 ALT 11 Alkaline Phosphatase 110 Troponin I High Sens 13.0 D Total Protein 7.0 Albumin 4.1 TSH 1.27 Urine Color Urine Appearance Urine pH Ur Specific Warren Urine Protein Urine Glucose (UA) Urine Ketones Urine Blood Urine Nitrite Ur Leukocyte Esterase Urine RBC Urine WBC Ur Squamous Epith Cells Urine Bacteria Hyaline Casts COVID-19 (HERSON) Negative COVID-19 Clin Com See Note Influenza Type A (MICHELLE) Negative Influenza Type B (MICHELLE) Negative Influenza A & B Note See Note 04/21/25 23:48 MCV MCH MCHC RDW Plt Count MPV Immature Gran % (Auto) Neut % (Auto) Lymph % (Auto) Nash % (Auto) Eos % (Auto) Baso % (Auto) Lymph # (Auto) Nash # (Auto) Eos # (Auto) Baso # (Auto) Abs Immat Gran (auto) Absolute Neuts (auto) Absolute Nucleated RBC Nucleated RBC % (auto) VBG pH VBG pCO2 VBG pO2 VBG HCO3 VBG O2 Saturation VBG Base Excess Anion Gap Estim Creat Clear Calc Estimated GFR Random Glucose Lactic Acid Lactic Acid F/U @ 2Hr Calcium Magnesium Total Bilirubin Direct Bilirubin AST ALT Alkaline Phosphatase Troponin I High Sens Total Protein Albumin TSH Urine Color Yellow Urine Appearance Clear Urine pH 7.0 Ur Specific Warren >= 1.030 H Urine Protein Trace Urine Glucose (UA) >=1000 H Urine Ketones Negative Urine Blood Negative Urine Nitrite Negative Ur Leukocyte Esterase Trace H Urine RBC 0-2 Urine WBC 6-10 H Ur Squamous Epith Cells 0-2 Urine Bacteria 4+ Hyaline Casts 0-2 COVID-19 (HERSON) COVID-19 Clin Com Influenza Type A (MICHELLE) Influenza Type B (MICHELLE) Influenza A & B Note ECG Attestation: I personally reviewed and interpreted this ECG as follows: (Normal sinus rhythm, RBBB, QTC 450) Prior ECG tracings: available for review Imaging Radiologist's Impressions: Abdomen and pelvis CT Findings: Chest findings in chest CT report. Degenerative change spine and hips. No acute bony abnormalities. Liver and spleen within normal limits. Pancreas and adrenal glands unremarkable. Gallbladder is within normal limits. No significant focal renal abnormalities. Renal cysts, no stones or hydronephrosis. Abdominal aorta is normal in caliber. No free fluid or adenopathy in the pelvis. No diverticulitis. Appendix unremarkable. Large amount of stool in colon. Small caliber rectal tube. Impression: No acute process Chest CTA Findings: No filling defects are noted to suggest pulmonary embolus. Main pulmonary artery normal in caliber. Thoracic aorta normal caliber without dissection. Heart size normal. Great vessel origins patent. No coronary calcifications. Minimal residual left pleural effusion. Minimal posterior left lower lobe atelectasis. No other significant parenchymal abnormality. No significant mediastinal or hilar adenopathy. No acute bony abnormality noted. 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 Patient had concerns of urinary retention and fever. Patient being admitted for sepsis, possible source is urinary tract with evidence of hydrocele but workup continues. 0445 Allergy to Vanco noted upon initiation of infusion, to include redness, erythemia. Infusion stopped immediately. No chest pain or hypotension, pt sleeping, arousable with stable hemodynamics. Benadryl 25 IV X1 Sepsis likely secondary to urinary tract infection COVID, flu and RSV pending Blood cultures pending Follow urine culture Patient is started on Zosyn and vancomycin added, allergic reaction to Vanco with redness and itching at IV site (possible red nahun syndrome but infusions stopped immediately), changed to Doxycline after review with pharmacist Wound culture of pressure ulcer right buttocks and right sacral area collected Lactic acid 4.0 now 2.1 and fluids continue Low likelihood of tumor lysis syndrome noting type of cancer. Workup continues but potassium and calcium are within normal limits. Uric acid, phosphorus, LDH, haptoglobin pending. BUN elevated. - not presenting as a medical emergency Continue telemetry and hemodynamic monitoring Urinary retention/ possible UTI History of BPH Continue terazosin once med rec completed Pisano catheter will be inserted for now, patient may be having long-term issues and will need to be discharged with catheter in place Urology consulted Follow urine culture, maybe source of sepsis: No abnormal findings on CT scan Renal function is stable Hydrocele present with hx Notable swelling on exam, decreased with pisano placement Per daughter this swelling is chronic US ordered Urology consulted No evidence of torision Possible source of infection Delirium Secondary to fever most likely Hydration continues Tylenol IV x1, PO prn Patient reorientates with family present Continue treatment for sepsis Small-cell lung cancer Oncology consulted Patient currently on oral medication only, recently stopped immunotherapy as it was ineffective Patient currently on room air with no evidence of hypoxia Advance directives per patient's daughter who is his healthcare proxy, CPR requested but do not intubate Pressure ulcer right buttocks Wound relatively new per family Wound care consultation placed Turn and position every 2 hours Nutritional consult placed NIDDM Sliding scale insulin Diabetic diet GERD Continue omeprazole and famotidine Hyperlipidemia Continue statin once med rec completed DVT prophylaxis: Lovenox Med rec pending Per family and healthcare proxy patient will receive CPR but does not want to be intubated Quality Stroke Does the patient have a stroke diagnosis?: No Reason for No Anti-thrombotic by Day Two: N/A - Med Ordered VTE Prior VTE?: No VTE Risk Level:: Medical - moderate - high VTE Device Contraindication: N/A - Device Ordered VTE Drug Contraindication: N/A - Med Ordered
[2025-04-22] MEDS: Lactated Ringers 1,000 ML 100 ML IVCONT (01:22)
--- NOTE | 2025-04-22 01:32 | HO.NURTONUR ---
RN reached out to admitting MD- pts dtr is is inquiring about trazadone for the pt- he takes at night 50 mg. MD informed RN we are holding off on trazadone at this time. RN waiting for pending orders from .
[2025-04-22 01:41] LABS: Uric Acid 4.5 mg/dL (3.4-7.0)
[2025-04-22 01:51] LABS: Reflex Lactate? 2 Y
[2025-04-22 02:39] LABS: ~Lactic Acid-LAB USE ONLY 1.1 mmol/L (0.5-2.0)
--- NOTE | 2025-04-22 04:35 | HO.NURTONUR ---
RN went to place 18 fr pisano in pt. Lots of resistance and was unable to advance. 14 fr was also tried with no luck. RN with assistance of LARISA Pereyra did a straight cath and was able to advance and drain some urine. RN then went into the uro cart and grabbed a 14 fr balloon attachment; Pisano was able to advance with success. Pts testes were extremely swollen prior to insertion; RN reached out to admitting to let her know. As pisano started to drain, swelling in testes went down. now at bedside with pt.
--- NOTE | 2025-04-22 04:46 | HO.NURTONUR ---
After about 20 min or so of vanco infusion, pt started to have an allergic reaction with the the vanco infusing in the L forearm. Pts arm was red, he c/o of itchiness in the arm. RN immediately stopped the infusion; RN let MD know; keyon added to allergy list- RN waiting for new orders at this time.
--- NOTE | 2025-04-22 04:54 | HO.NURTONUR ---
pt noted to have small wound on backside near coccyx; MD made aware. Wound consult in place.
[2025-04-22 06:13] LABS: Hematocrit 35.3 % (42.0-52.0); Hemoglobin 12.1 g/dl (14.0-18.0); Mean Corpuscular HGB Conc 34.3 g/dl (31.0-36.0); Mean Corpuscular Hemoglobin 28.9 pg (27.0-33.0); Mean Corpuscular Volume 84.4 fL (80.0-98.0); NRBC Abs Auto 0.000 X10*3/uL (0.0-0.012); NRBC Pct Auto 0.0 /100WBC (0.0-0.2); Platelet Count 180 X10*3/uL (160-400); Red Blood Count 4.18 X10*6/uL (4.60-5.80); White Blood Count 7.0 X10*3/uL (4.8-10.8)
[2025-04-22 06:24] LABS: Alanine Aminotransferase 6 U/L (0-40); Albumin Level 3.2 g/dL (3.5-5.0); Alkaline Phosphatase 87 U/L (39-117); Anion Gap 10 (12-20); Aspartate Amino Transferase 34 U/L (5-37); Blood Urea Nitrogen 23 mg/dL (9-16); Calcium 8.3 mg/dL (8.4-10.2); Carbon Dioxide 18 mmol/L (22-29); Chloride 104 mmol/L (96-108); Creatinine Clr Calc Pharmacy 83.6; Estimated Glomerular Filt Rate > 60; Potassium 3.4 mmol/L (3.3-5.1); Sodium 129 mmol/L (135-145); Total Protein 5.8 g/dL (6.5-8.0)
[2025-04-22 06:29] LABS: Resp Syncy Virus RNA Qual PCR NEGATIVE (Negative); SARS COV2 PCR INHOUSE NEGATIVE (Negative)
[2025-04-22 06:32] LABS: Band Neutrophils Percent 23 % (3-5); Basophils Abs Manual 0.1 X10*3/uL (0.0-0.2); Basophils Percent Manual 1 % (0-2); Lymphocytes Absolute Manual 0.2 X10*3/uL (1.2-4.9); Lymphocytes Percent Manual 3 % (20-40); Monocytes Absolute Manual 0.1 X10*3/uL (0.1-1.2); Monocytes Percent Manual 2 % (2-11); Neutrophils Absolute Manual 6.6 X10*3/uL (2.0-8.3); Neutrophils Percent Manual 71 % (45-73)
[2025-04-22 06:34] LABS: Burr Cells 3+ (>5) /OIF; RBC Morphology NOTED; Toxic Vacuolation PRESENT
[2025-04-22 07:44] LABS: Glucose, Whole Blood 96 mg/dL (60-115)
--- NOTE | 2025-04-22 07:50 | PHA.MEDREC ---
Pharmacy Consult ? Medication Reconciliation Pharmacy has completed the medication reconciliation. Med rec complete using claims, discharge from last stay at this facility on 04/05, and provider report from oncology.
[2025-04-22] MEDS: Lactated Ringers 1,000 ML 125 ML IVCONT ×2 (09:31→17:54)
--- NOTE | 2025-04-22 09:57 | P.CNHO_ITS ---
Subjective - Subjective Chief complaint: Weakness, MS changes Patient: new to practice Consult date: 04/22/25 Primary Care Provider: ROB Brewer Medical Summary: Diagnosis: Metastatic irz-rrxcc-liic lung cancer Present[place] [facility] [place] 04/29/2024 with complaints of shortness of breath which started rather suddenly in the last 2-3 days. Reported weight loss of 40 lb. He did not have significant cough or shortness of breath until recently. He underwent a chest x-ray which showed a large dense consolidation with pleural effusion in the left lung. CT chest without IV contrast performed 04/29/2024 showed the large left pleural effusion causing mass effect and mediastinal shift to the right, atelectasis of left lower lobe and partial atelectasis of left upper lobe. Can not rule out underlying central hilar mass. CT abdomen/pelvis showed perinephric fat stranding around left kidney of uncertain etiology. No kidney stone or hydronephrosis. Right inguinal hernia containing fat and loop of bowel without obstruction. A diagnostic thoracentesis in the ED demonstrated 500 mL of bloody pleural drainage, cytology came back positive for carcinoma. He had left chest tube for a few days followed by left PleurX catheter placement. CT chest with contrast performed 05/03/2024 showed small amount of residual fluid in the pleural space. Atelectasis of left upper lobe adjacent to superior mediastinum as well as lingula and left lower lobe. Discrete lung mass not seen. Prominent mediastinal lymph nodes largest measuring 1.1 cm in the left precarinal region. No axillary adenopathy. Patient has had left PleurX catheter placed. A brain MRI performed 05/23/2024 shows no evidence of metastatic disease. Radio Commentator Utilized?: No - Patient Refused Radio Commentator:: Family Member HPI - Consult Narrative Reason for consult: Recurrent altered mental status, fever Narrative: Lei Drew is a 79 year old male with history of zxd-nweoq-scsg lung cancer currently receiving targeted therapy with dabrafenib/trametinib who was admitted for mental status changes and near-syncope. Has per grandson who was at the bedside, patient at become confused yesterday and was feeling hot to touch. He was shaking incessantly and had almost fallen at home. In the ED patient was found to have a temperature of 103.3 degrees F.. Bladder scan was positive for 1000 mL urine. Who is being admitted for possible infection, he is on antibiotics. At this time patient is alert and oriented to place and person. He is answering questions appropriately. Review of Systems - Constitutional Reports as per [facility] Medical History: Medical History (Last Reviewed 04/22/25 @ 02:18 by KARNE Robert) Abdominal bloating Acute hyponatremia Anemia BPH (benign prostatic hyperplasia) Cataract Colon cancer screening COVID-19 virus infection Diabetes Diverticulosis Erectile dysfunction Exocrine pancreatic insufficiency Gastritis GERD (gastroesophageal reflux disease) High cholesterol History of revision of total replacement of right knee joint HLD (hyperlipidemia) Hydrocele Hypercholesteremia Hypertension Hyponatremia Loose stools Lung mass NIDDY (non-insulin dependent diabetes mellitus in young) Non-small cell carcinoma of lung Pleural hemorrhage Renal cyst Syncope and collapse Functional capacity: bed bound Family History: Family History (Last Reviewed 04/22/25 @ 02:18 by KAREN Robert) Father Diabetes Mother Diabetes Uterus cancer Mother Cancer Surgical History: Surgical History (Last Reviewed 04/22/25 @ 02:18 by ALMAS Robert) History of bilateral knee replacement History of prostate surgery Hx of colonoscopy S/P chest tube placement Visit for wound check Social History: Social History (Last Reviewed 04/22/25 @ 02:18 by KAREN Robert) Living Situation History: Household Members: Significant Other Housing: Apartment Housing Other:: Pt lives in senior housing Are you a primary home care consultant to a significant other at home: No Do you presently have visiting nurse or other home services: Yes Alcohol History Details: 1. How often do you have a drink containing alcohol?: a. Never AUDIT-C Alcohol total score: 0 Tobacco History: Patient Tobacco Use Status: Never used Tobacco Smoked in Last 30 Days: No Advance Directives: Advance Directives: No Advance Directives Information Provided: Yes Homicidal Assessment: Do you have a plan to hurt others: No Plan Occupation Assessmet: service: No Current occupational status: retired Current occupation: right handed Sex/Gender Assessment: Gender identity: Male - Travel History Ebola Risk: Travel/Contact With Anyone From Affected Area/s: No Has Patient Experienced Ebola Symptoms: No Home Medications and Allergies Current Medications: Current Medications Acetaminophen (Acetaminophen 325 Mg Tablet) 650 mg PO Q6H PRN PRN Reason: Pain, Mild 1-3,fever,headache Albuterol/Ipratropium (Albuterol/Iprat 2.5/0.5mg 3 Ml Ampul.Neb) 3 ml INHALE Q4H PRN PRN Reason: Shortness of Breath/Wheezing Calcium Carbonate (Calcium Carbonate 750 Mg Tab.Chew) 750 mg PO Q4H PRN PRN Reason: Heartburn Dextrose (Dextrose 50 % 25 Gm/50 Ml Syringe) 25 gm IVPUSH Q15M PRN; Protocol PRN Reason: per Hypoglycemia Standing Ord. Enoxaparin Sodium (Enoxaparin Sodium 40 Mg/0.4 Ml Syringe) 40 mg SUBCUT Q24H [facility] Last Admin: 04/22/25 01:21 Dose: 40 mg Glucose (Glucose Gel 15 Gm Gel..Gram.) 15 gm PO Q15M PRN; Protocol PRN Reason: per Hypoglycemia Standing Ord. Lactated Ringer's (Lr) 1,000 mls @ 125 mls/hr IVCONT .Q8H [facility] Last Admin: 04/22/25 09:31 Dose: 125 mls/hr Piperacillin Sod/Tazobactam (Sod 3.375 gm/ Sodium Chloride) 50 mls @ 100 mls/hr IV Q6H [facility] Last Infusion: 04/22/25 09:33 Dose: Infused Doxycycline Hyclate 100 mg/ (Sodium Chloride) 250 mls @ 166.67 mls/hr IV Q12H [facility] Last Infusion: 04/22/25 07:50 Dose: Infused Insulin Human Lispro (Insulin Lispro 100 Unit/Ml 3 Ml Vial) 0 unit SUBCUT QIDACHS [facility]; Protocol Last Admin: 04/22/25 07:44 Dose: Not Given Magnesium Hydroxide (Milk Of Magnesia 30 Ml Oral.Susp) 30 ml PO DAILY PRN PRN Reason: Constipation Magnesium Oxide (Magnesium Oxide 400 Mg Tablet) 400 mg PO BIDPC [facility] Last Admin: 04/22/25 09:03 Dose: 400 mg Melatonin (Melatonin 3 Mg Tablet) 6 mg PO BEDTIME PRN PRN Reason: Insomnia Ondansetron HCl (Ondansetron Hcl 4 Mg/2 Ml Vial) 4 mg IVPUSH Q8H PRN PRN Reason: Nausea and Vomiting Polyethylene Glycol (Polyethylene Glycol 3350 17 Gm Powd.Pack) 17 gm PO DAILY PRN PRN Reason: Constipation Sodium Chloride (0.9 % Sodium Chloride Flush 3 Ml Syringe) 3 ml IVFLUSH QSHIFT JOHNATHAN Last Admin: 04/22/25 07:44 Dose: Not Given Home Medications ?Medication ?Instructions ?Recorded ?Confirmed ?Type atorvastatin 10 mg tablet 10 mg PO DAILY 05/08/20 04/22/25 History blood sugar diagnostic #10 ea 10/04/20 04/13/25 History lancets 33 gauge #100 ea 10/04/20 04/13/25 History metformin 1,000 mg tablet 1,000 mg PO BIDWM 10/04/20 04/22/25 Hist ory multivitamin 1 tab PO DAILY@1700 10/04/20 04/22/25 Hi story dapagliflozin propanediol 10 mg 10 mg PO DAILY 10/09/21 04/22/25 History tablet (Farxiga) omeprazole 20 mg capsule,delayed 20 mg PO BID@0630,1630 04/29/24 04/22/25 History release dabrafenib 75 mg capsule 150 mg PO BID 04/22/25 04/22/25 History ktrlfl-koudcjrh-ltgkmlb 2 cap PO TIDWM 04/22/25 04/22/25 History 24,000-76,000-120,000 unit capsule,delayed rel (Creon) mirtazapine 7.5 mg tablet 7.5 mg PO BEDTIME 04/22/25 04/22/25 Hist ory sitagliptin phosphate 25 mg tablet 25 mg PO DAILY 04/22/25 04/22/25 History (Januvia) trametinib 2 mg tablet (Mekinist) 2 mg PO DAILY@0600 04/22/25 04/22/25 His tory Allergies Allergy/AdvReac Type Severity Reaction Status Date / Time vancomycin Allergy Intermediate Redness of Verified 04/22/25 04:51 Skin Physical Exam Vital signs: Vital Signs Temp 98.8 F 04/22/25 09:07 Pulse 84 04/22/25 09:07 Resp 16 04/22/25 09:07 BP 118/60 04/22/25 09:07 Pulse Ox 99 04/22/25 09:07 O2 Del Method Room Air 04/22/25 05:45 Intake & Output 04/21/25 04/22/25 04/22/25 18:59 06:59 18:59 Intake Total 2410 / 2410 1115 / 1115 Output Total 1000 / 1000 550 / 550 Balance 1410 / 1410 565 / 565 Urine Output (Average ml/kg/hr) 1.38 0.76 Intake: Intake, IV Amount 2410 / 2410 1115 / 1115 Acetaminophen 1,000 mg In 100 100 / 100 ml @ 400 mls/hr IV ONCE ONE Rx# :[id number] Doxycycline Hyclate 100 mg In 0 250 / 250 .9 % Sodium Chloride 250 ml @ 166.67 mls/hr IV Q12H [facility] Rx#: [id number] Magnesium Sulfate/D5W 1 gm In 100 / 100 100 ml @ 100 mls/hr IV ONCE ONE Rx#:[id number] Piperacillin Sodium/Tazobactam 50 / 50 50 / 50 3.375 gm In 0.9 % Sodium Chloride 50 ml @ 100 mls/hr IV Q6H [facility] Rx#:[id number] cefEPime HCl/D5W 2 gm In 50 ml 50 / 50 @ 100 mls/hr IV ONCE ONE Rx#: [id number] vancomycin HCL 1,500 mg In 0.9 110 / 110 % Sodium Chloride 500 ml @ 333. 333 mls/hr IV ONCE ONE Rx#: [id number] 0.9 % Sodium Chloride 2,000 ml 2000 / 2000 @ 999 mls/hr IVCONT .Q2H1M ONE Rx#:[id number] Lactated Ringers 1,000 ml @ 125 815 / 815 mls/hr IVCONT .Q8H [facility] Rx#: [id number] Output: Output, Urine Amount 1000 / 1000 550 / 550 Other: Weight 60.2 kg Weight 60.2 kg - Constitutional Present: no acute distress - Routine HEENT Exam Head: Present: normal inspection Eye: Present: EOMI - Routine Neck Exam Present: supple. Absent: lymphadenopathy - Routine Respiratory Exam Present: decreased breath sounds - Routine Cardiovascular Exam Cardiovascular: Present: S1, S2 - Routine Skin Exam Present: intact - Routine Neurological Exam Present: alert, oriented X3 Hem/Onc Consult Result - Labs CBC & Chem 7: 04/22/25 05:59 04/22/25 05:59 Labs: Short CBC 04/21/25 04/22/25 Range/Units 21:25 05:59 WBC 7.5 7.0 (4.8-10.8) X10*3/uL Hgb 12.6 L 12.1 L (14.0-18.0) g/dl Hct 34.8 L 35.3 L (42.0-52.0) % Plt Count 229 D 180 (160-400) X10*3/uL BMP 04/21/25 04/22/25 21:25 05:59 Sodium 128 L 129 L Potassium 4.0 3.4 Chloride 98 104 Carbon Dioxide 18 L 18 L BUN 30 H 23 H Creatinine 0.90 0.62 Calcium 9.1 D 8.3 L D Cardiac Enzymes 04/21/25 Range/Units 21:25 Total Creatine Kinase 124 (38-174) U/L Liver Function 04/21/25 04/22/25 Range/Units 21:25 05:59 Total Bilirubin 0.3 0.4 (0.0-1.0) mg/dL Direct Bilirubin 0.2 (0.0-0.5) mg/dL AST 27 34 (5-37) U/L ALT 11 6 (0-40) U/L Alkaline Phosphatase 110 87 (39-117) U/L Albumin 4.1 3.2 L (3.5-5.0) g/dL Urine 04/21/25 Range/Units 23:48 Urine Color Yellow Urine Appearance Clear Urine pH 7.0 (5.0-9.0) Ur Specific [place] >= 1.030 H (1.005-1.025) Urine Protein Trace (Neg-Trace) mg/dL Urine Glucose (UA) >=1000 H (Negative) mg/dL Assessment and Plan Patient Active problem list reviewed?: Yes (1) Non-small cell carcinoma of lung Status: Chronic Assessment and plan: 1. This is a 79-year-old male, nonsmoker diagnosed with metastatic lung cancer in April 2024. He presented with large left pleural effusion, cytology showed carcinoma consistent with nvm-dnwmy-xyjy lung cancer. Patient started palliative systemic therapy with single agent pembrolizumab 200 mg IV q. 3 weeks starting 06/02/2024. PET-CT performed 02/2025 at [facility] revealed metabolically active cervical, thoracic nodes increased from prior study, this was discussed with patient and daughter. As he has progressive disease, treatment was changed, started on dabrafenib 150 mg p.o. b.i.d. with trametinib 2 mg daily from 02/2025. Since he started new therapy, he has been experiencing probable side effects. He had a brief syncopal episode for which he was hospitalized at [facility] [place]. He was slightly hypotensive. Echocardiogram was normal. He was monitored on telemetry and discharged the next day. Dose of dabrafenib was reduced by 50%. He now comes in with fever and altered mental status. Fever is a known side effect of above medications. Agree with sepsis workup. If negative, he should be advised to hold both medications for now. CT chest/abdomen and pelvis performed 04/21/25 shows no acute process. 2. Hyponatremia. He has worsening of chronic intermittent hyponatremia. He was seen by Nephrology in the past for this. He appears to be euvolemic. Monitor sodium, restrict free water. Trial of Normal saline, consider nephrology referral if not improving. Thank you for the consultation. We will follow with you. - Time Spent With Patient Time Spent with Patient (in minutes): 25 Additional Coding: - Additional E/M codes Complex E/M visit Add On: CPT G2211
--- NOTE | 2025-04-22 10:00 | P.CNUR_ITS ---
History of Present Illness Consult details Consult date: 04/22/25 Narrative: 79-year-old male with past medical history small-cell lung cancer (nonsmoker, 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 Patient was confused and not at his baseline. Pt unable to urinate. UA - Bacteria 4+, 6-10 WBC/phf. US Scrotum- Large septated hydrocele. CTAP- no acute findings, renal cysts, no urolithiasis. Review of Systems 2 Review of Systems: Yes all other systems are reviewed and are negative Constitutional: Constitutional: Reports no additional constitutional complaints Eyes: Eyes: Reports no additional eye complaints ENT: Reports system reviewed and no additional complaints, except as documented Cardiovascular: Cardiovascular: Reports no additional cardiovascular complaints Respiratory: Respiratory: Reports no additional respiratory complaints Gastrointestinal: Gastrointestinal: Reports no additional gastrointestinal complaints Genitourinary: Genitourinary: Reports as per HPI Musculoskeletal: Musculoskeletal: Reports no additional musculoskeletal complaints Integumentary/Breasts: Skin/Breast: Reports system reviewed and no additional complaints, except as docu Neurologic: Reports system reviewed and no additional complaints, except as documented Psychiatric: Psychiatric: Reports no additional psychiatric complaints Endocrine: Endocrine: Reports no additional endocrine complaints Hematologic/Lymphatic: Hematologic/Lymphatic: Reports no additional hematologic/lymphatic complaints Allergic/Immunologic: Allergic/Immunologic: Reports no additional allergic/immunologic complaints PMFSH Past Medical History Medical History Syncope and collapse 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) HLD (hyperlipidemia) GERD (gastroesophageal reflux disease) Exocrine pancreatic insufficiency Abdominal bloating Renal cyst Loose stools History of revision of total replacement of right knee joint Lung mass High cholesterol Anemia Pleural hemorrhage Diverticulosis Hyponatremia Acute hyponatremia Colon cancer screening Erectile dysfunction Gastritis COVID-19 virus infection Hydrocele Cataract Hypercholesteremia Diabetes BPH (benign prostatic hyperplasia) Hypertension Family History Family History Father Diabetes Mother Diabetes Uterus cancer Mother Cancer Surgical History Surgical History History of bilateral knee replacement Visit for wound check S/P chest tube placement Hx of colonoscopy History of prostate surgery Social History Social History Household Members: Significant Other Housing: Apartment Housing Other:: Pt lives in senior housing Are you a primary patient care technician instructor to a significant other at home: No Do you presently have visiting nurse or other home services: Yes Alcohol intake: never Comment: camera placed as pt is impulsive, attempts to get OOB. Hx falls recently Patient Tobacco Use Status: Never used Tobacco Smoked in Last 30 Days: No Advance Directives: No Advance Directives Information Provided: Yes Do you have a plan to hurt others: No Plan service: No Current occupational status: retired Current occupation: right handed Gender identity: Male Travel History Ebola Risk: Travel/Contact With Anyone From Affected Area/s: No Has Patient Experienced Ebola Symptoms: No Meds Allergies Allergy/AdvReac Type Severity Reaction Status Date / Time vancomycin Allergy Intermediate Redness of Verified 04/22/25 04:51 Skin Active Medications: Current Medications Acetaminophen (Acetaminophen 325 Mg Tablet) 650 mg PO Q6H PRN PRN Reason: Pain, Mild 1-3,fever,headache Albuterol/Ipratropium (Albuterol/Iprat 2.5/0.5mg 3 Ml Ampul.Neb) 3 ml INHALE Q4H PRN PRN Reason: Shortness of Breath/Wheezing Calcium Carbonate (Calcium Carbonate 750 Mg Tab.Chew) 750 mg PO Q4H PRN PRN Reason: Heartburn Dextrose (Dextrose 50 % 25 Gm/50 Ml Syringe) 25 gm IVPUSH Q15M PRN; Protocol PRN Reason: per Hypoglycemia Standing Ord. Enoxaparin Sodium (Enoxaparin Sodium 40 Mg/0.4 Ml Syringe) 40 mg SUBCUT Q24H [facility] Last Admin: 04/22/25 01:21 Dose: 40 mg Glucose (Glucose Gel 15 Gm Gel..Gram.) 15 gm PO Q15M PRN; Protocol PRN Reason: per Hypoglycemia Standing Ord. Lactated Ringer's (Lr) 1,000 mls @ 125 mls/hr IVCONT .Q8H [facility] Last Admin: 04/22/25 09:31 Dose: 125 mls/hr Doxycycline Hyclate 100 mg/ (Sodium Chloride) 250 mls @ 166.67 mls/hr IV Q12H [facility] Last Infusion: 04/22/25 07:50 Dose: Infused Piperacillin Sod/Tazobactam (Sod 4.5 gm/ Sodium Chloride) 100 mls @ 200 mls/hr IV Q6H [facility] Insulin Human Lispro (Insulin Lispro 100 Unit/Ml 3 Ml Vial) 0 unit SUBCUT QIDACHS [facility]; Protocol Last Admin: 04/22/25 07:44 Dose: Not Given Magnesium Hydroxide (Milk Of Magnesia 30 Ml Oral.Susp) 30 ml PO DAILY PRN PRN Reason: Constipation Magn[facility] Oxide ([facility] 400 Mg [facility]t) [facility] Admin: 04/22/25 09:03 Dose: 400 mg Melatonin (Melatonin 3 Mg Tablet) 6 mg PO BEDTIME PRN PRN Reason: Insomnia Ondansetron HCl (Ondansetron Hcl 4 Mg/2 Ml Vial) 4 mg IVPUSH Q8H PRN PRN Reason: Nausea and Vomiting Polyethylene Glycol (Polyethylene Glycol 3350 17 Gm Powd.Pack) 17 gm PO DAILY PRN PRN Reason: Constipation Sodium Chloride (0.9 % Sodium Chloride Flush 3 Ml Syringe) 3 ml IVFLUSH QSHICHI [facility] Last Admin: 04/22/25 07:44 Dose: Not Given Home Medications ?Medication ?Instructions ?Recorded ?Confirmed ?Last Taken ?Type atorvastatin 10 mg tablet 10 mg PO DAILY 05/08/2012/1007/01/20 History blood sugar diagnostic #10 ea 10/04/20 04/13/25 Unk nown History lancets 33 gauge #100 ea 10/04/20 04/13/25 Un known History metformin 1,000 mg tablet 1,000 mg PO BIDWM 10/04/20 1 Unknown History multivitamin 1 tab PO DAILY@1700 10/04/20 04/22/25 Unknown History dapagliflozin propanediol 10 mg 10 mg PO DAILY 10/09/ 2 04/22/25 05/03/24 History tablet (Farxiga) omeprazole 20 mg capsule,delayed 20 mg PO BID@0630,163 0 04/29/24 04/22/25 Unknown History release dabrafenib 75 mg capsule 150 mg PO BID 04/22/2504/22 Unknown History nibyuz-zlnxvspp-hkother 2 cap PO TIDWM 04/22/2512/10 Unknown History 24,000-76,000-120,000 unit capsule,delayed rel (Creon) mirtazapine 7.5 mg tablet 7.5 mg PO BEDTIME 04/22/25 1 Unknown History sitagliptin phosphate 25 mg tablet 25 mg PO DAILY 12/1004/22/25 Unknown History (Justouvia) trametinib 2 mg tablet (Mekinist) 2 mg PO DAILY@0600 1 04/22/25 Unknown History Physical Exam 2 Vital Signs: Vital Signs: Last Vital Signs Temp 98.8 F 04/22/25 09:07 Pulse 84 04/22/25 09:07 Resp 16 04/22/25 09:07 BP 118/60 04/22/25 09:07 Pulse Ox 99 04/22/25 09:07 O2 Del Method Room Air 04/22/25 05:45 BMI result Body Mass Index 20.2 Const: General: no acute distress Orientation/consciousness: patient oriented x3 HEENT: Head: Yes normocephalic and Yes atraumatic Eyes: Conjunctivae: conjunctivae normal Neck: Neck: Yes normal visual inspection Chest: Chest palpation & inspection: normal inspection of the chest Resp: Effort & Inspection: normal respiratory effort GI: Inspection: Yes normal to inspection Palpation (GI): Soft to palpation : Other: Large left hydrocele, nontender Penis: normal penis Neuro: General: patient oriented x3 Psych: Appearance: grossly normal Affect: normal affect Results Labs 04/22/25 05:59 04/22/25 05:59 Labs: Abnormal lab results 04/21/25 04/21/25 04/21/25 Range/Units 21:25 21:32 23:45 RBC 4.23 L (4.60-5.80) X10*6/uL Hgb 12.6 L (14.0-18.0) g/dl Hct 34.8 L (42.0-52.0) % MCHC 36.2 H (31.0-36.0) g/dl MPV 8.6 L (9.4-12.4) fL Immature Gran % (Auto) 0.7 H (0.0-0.4) % Neut % (Auto) 86.6 H (45-73) % Lymph % (Auto) 5.3 L (20-40) % Lymph # (Auto) 0.4 L (1.2-4.9) X10*3/uL Abs Immat Gran (auto) 0.05 H (0.00-0.03) X10*3/uL Band Neutrophils % (3-5) % Lymphocytes % (Manual) (20-40) % Lymphocytes # (Manual) (1.2-4.9) X10*3/uL VBG HCO3 17 L (22-26) mmol/L Sodium 128 L (135-145) mmol/L Carbon Dioxide 18 L (22-29) mmol/L Anion Gap (12-20) BUN 30 H (9-16) mg/dL Random Glucose 156 H (60-115) mg/dL Lactic Acid 4.0 H* (0.5-2.0) mmol/L Lactic Acid F/U @ 2Hr 2.1 H* (0.5-2.0) mmol/L Calcium (8.4-10.2) mg/dL Magnesium 1.5 L (1.6-2.6) mg/dL Total Protein (6.5-8.0) g/dL Albumin (3.5-5.0) g/dL Ur Specific [place] (1.005-1.025) Urine Glucose (UA) (Negative) mg/dL Ur Leukocyte Esterase (Negative) Urine WBC (0-5) /HPF 04/21/25 04/22/25 Range/Units 23:48 05:59 RBC 4.18 L (4.60-5.80) X10*6/uL Hgb 12.1 L (14.0-18.0) g/dl Hct 35.3 L (42.0-52.0) % MCHC (31.0-36.0) g/dl MPV 8.6 L (9.4-12.4) fL Immature Gran % (Auto) (0.0-0.4) % Neut % (Auto) (45-73) % Lymph % (Auto) (20-40) % Lymph # (Auto) (1.2-4.9) X10*3/uL Abs Immat Gran (auto) (0.00-0.03) X10*3/uL Band Neutrophils % 23 H (3-5) % Lymphocytes % (Manual) 3 L (20-40) % Lymphocytes # (Manual) 0.2 L (1.2-4.9) X10*3/uL VBG HCO3 (22-26) mmol/L Sodium 129 L (135-145) mmol/L Carbon Dioxide 18 L (22-29) mmol/L Anion Gap 10 L (12-20) BUN 23 H (9-16) mg/dL Random Glucose (60-115) mg/dL Lactic Acid (0.5-2.0) mmol/L Lactic Acid F/U @ 2Hr (0.5-2.0) mmol/L Calcium 8.3 L D (8.4-10.2) mg/dL Magnesium (1.6-2.6) mg/dL Total Protein 5.8 L (6.5-8.0) g/dL Albumin 3.2 L (3.5-5.0) g/dL Ur Specific [place] >= 1.030 H (1.005-1.025) Urine Glucose (UA) >=1000 H (Negative) mg/dL Ur Leukocyte Esterase Trace H (Negative) Urine WBC 6-10 H (0-5) /HPF Short CBC 04/21/25 04/22/25 Range/Units 21:25 05:59 WBC 7.5 7.0 (4.8-10.8) X10*3/uL Hgb 12.6 L 12.1 L (14.0-18.0) g/dl Hct 34.8 L 35.3 L (42.0-52.0) % Plt Count 229 D 180 (160-400) X10*3/uL BMP 04/21/25 04/22/25 21:25 05:59 Sodium 128 L 129 L Potassium 4.0 3.4 Chloride 98 104 Carbon Dioxide 18 L 18 L BUN 30 H 23 H Creatinine 0.90 0.62 Calcium 9.1 D 8.3 L D Cardiac Enzymes 04/21/25 Range/Units 21:25 Total Creatine Kinase 124 (38-174) U/L Liver Function 04/21/25 04/22/25 Range/Units 21:25 05:59 Total Bilirubin 0.3 0.4 (0.0-1.0) mg/dL Direct Bilirubin 0.2 (0.0-0.5) mg/dL AST 27 34 (5-37) U/L ALT 11 6 (0-40) U/L Alkaline Phosphatase 110 87 (39-117) U/L Albumin 4.1 3.2 L (3.5-5.0) g/dL Urine 04/21/25 Range/Units 23:48 Urine Color Yellow Urine Appearance Clear Urine pH 7.0 (5.0-9.0) Ur Specific [place] >= 1.030 H (1.005-1.025) Urine Protein Trace (Neg-Trace) mg/dL Urine Glucose (UA) >=1000 H (Negative) mg/dL Imaging Abdomen CT scan report/results: report reviewed and image reviewed CT scan - pelvis: report reviewed and image reviewed Additional studies: Date of Service: 04/22/25 CLINICAL HISTORY: sepsis, hydrocele suspected --- Additional Notes or Special Instructions: looking for source of infection, swelling more than usual US Scrotum with Doppler Comparison: US/SR - US SCROTUM - 04/05/25 07:36 EDT Findings: Right testicle normal echotexture, 3.5 x 3.3 x 3.5 cm. Left testicle, 4.2 x 2.4 x 3.0 cm. Echotexture unremarkable other than a 0.8 cm cyst. Normal Doppler color flow of both testicles. Epididymides are not visualized. Large complex hydrocele measuring up to 7.5 x 13.3 x 8.7 cm. No definite varicocele. IMPRESSION: 1.. Large complex hydrocele. 2. No evidence of torsion or epididymo-orchitis. Date of Service: 04/21/25 Reason for Exam: sepsis, unclear source CLINICAL HISTORY: sepsis, unclear source CT abdomen and pelvis with contrast Comparison: 04/29/2024 Findings: Chest findings in chest CT report. Degenerative change spine and hips. No acute bony abnormalities. Liver and spleen within normal limits. Pancreas and adrenal glands unremarkable. Gallbladder is within normal limits. No significant focal renal abnormalities. Renal cysts, no stones or hydronephrosis. Abdominal aorta is normal in caliber. No free fluid or adenopathy in the pelvis. No diverticulitis. Appendix unremarkable. Large amount of stool in colon. Small caliber rectal tube. Impression: No acute process Assessment and Plan (1) Acute UTI: Status: Acute (2) Acute urinary retention: Status: Acute (3) Hydrocele: Status: Acute Plan Cont pisano urine, blood c/s pending no acute intervention for hydrocele, outpatient follow up Procedures Date of Service Date of Service: 04/22/25
--- NOTE | 2025-04-22 11:43 | HO.PM.IMPN ---
Subjective Subjective Date of Service: 04/22/25 Interval History: f/u on uit, sepsis, metabolic encephalopathy overall is better Physical Exam Vital Signs: Vital Signs: Last Vital Signs Temp 98.8 F 04/22/25 09:07 Pulse 84 04/22/25 09:07 Resp 16 04/22/25 09:07 BP 118/60 04/22/25 09:07 Pulse Ox 99 04/22/25 09:07 O2 Del Method Room Air 04/22/25 05:45 BMI result Body Mass Index 20.2 General: AO X 3, no acute distress Resp: CTA bilateral CVS: S1,S2,RRR GI: +BS, NT, no distention Skin: No rash Neuro: motor grossly intact Psych: appropriate affect Objective Data Active Medications Acetaminophen (Acetaminophen 325 Mg Tablet) 650 mg PO Q6H PRN PRN Reason: Pain, Mild 1-3,fever,headache Albuterol/Ipratropium (Albuterol/Iprat 2.5/0.5mg 3 Ml Ampul.Neb) 3 ml INHALE Q4H PRN PRN Reason: Shortness of Breath/Wheezing Calcium Carbonate (Calcium Carbonate 750 Mg Tab.Chew) 750 mg PO Q4H PRN PRN Reason: Heartburn Dextrose (Dextrose 50 % 25 Gm/50 Ml Syringe) 25 gm IVPUSH Q15M PRN; Protocol PRN Reason: per Hypoglycemia Standing Ord. Enoxaparin Sodium (Enoxaparin Sodium 40 Mg/0.4 Ml Syringe) 40 mg SUBCUT Q24H [facility] Last Admin: 04/22/25 01:21 Dose: 40 mg Documented By: REMY Glucose (Glucose Gel 15 Gm Gel..Gram.) 15 gm PO Q15M PRN; Protocol PRN Reason: per Hypoglycemia Standing Ord. Lactated Ringer's (Lr) 1,000 mls @ 125 mls/hr IVCONT .Q8H [facility] Last Admin: 04/22/25 09:31 Dose: 125 mls/hr Documented By: DERIK Doxycycline Hyclate 100 mg/ (Sodium Chloride) 250 mls @ 166.67 mls/hr IV Q12H [facility] Last Infusion: 04/22/25 07:50 Dose: Infused Documented By: DERIK Piperacillin Sod/Tazobactam (Sod 4.5 gm/ Sodium Chloride) 100 mls @ 200 mls/hr IV Q6H [facility] Insulin Human Lispro (Insulin Lispro 100 Unit/Ml 3 Ml Vial) 0 unit SUBCUT QIDACHS [facility]; Protocol Last Admin: 04/22/25 07:44 Dose: Not Given Documented By: DERIK Non-Admin Reason: No Insulin Coverage Magnesium Hydroxide (Milk Of Magnesia 30 Ml Oral.Susp) 30 ml PO DAILY PRN PRN Reason: Constipation Magnesium Oxide (Magnesium Oxide 400 Mg Tablet) 400 mg PO BIDPC [facility] Last Admin: 04/22/25 09:03 Dose: 400 mg Documented By: DERIK Melatonin (Melatonin 3 Mg Tablet) 6 mg PO BEDTIME PRN PRN Reason: Insomnia Ondansetron HCl (Ondansetron Hcl 4 Mg/2 Ml Vial) 4 mg IVPUSH Q8H PRN PRN Reason: Nausea and Vomiting Polyethylene Glycol (Polyethylene Glycol 3350 17 Gm Powd.Pack) 17 gm PO DAILY PRN PRN Reason: Constipation Sodium Chloride (0.9 % Sodium Chloride Flush 3 Ml Syringe) 3 ml IVFLUSH QSHIFT [facility] Last Admin: 04/22/25 07:44 Dose: Not Given Documented By: DERIK Non-Admin Reason: IV Running Labs 04/22/25 05:59 04/22/25 05:59 Labs: Laboratory Results - last 24 hr 04/21/25 04/21/25 04/21/25 21:25 21:32 23:45 MCV 82.3 MCH 29.8 MCHC 36.2 H RDW 13.3 Plt Count 229 D MPV 8.6 L Immature Gran % (Auto) 0.7 H Neut % (Auto) 86.6 H Lymph % (Auto) 5.3 L [place] % (Auto) 7.3 Eos % (Auto) 0.0 Baso % (Auto) 0.1 Lymph # (Auto) 0.4 L [place] # (Auto) 0.6 Eos # (Auto) 0.0 Baso # (Auto) 0.0 Abs Immat Gran (auto) 0.05 H Absolute Neuts (auto) 6.5 Absolute Nucleated RBC 0.000 Nucleated RBC % (auto) 0.0 Neutrophils % (Manual) Band Neutrophils % Lymphocytes % (Manual) Monocytes % (Manual) Basophils % (Manual) Abs Neuts (Manual) Lymphocytes # (Manual) Monocytes # (Manual) Basophils # (Manual) Toxic Vacuolation Platelet Estimate Plt Morphology Comment RBC Morphology [place] Cells VBG pH 7.38 VBG pCO2 29 VBG pO2 65 VBG HCO3 17 L VBG O2 Saturation 88.0 VBG Base Excess -6.2 Anion Gap 16 Estim Creat Clear Calc TNP Estimated GFR > 60 POC Glucose Random Glucose 156 H Haptoglobin Lactic Acid 4.0 H* Lactic Acid F/U @ 2Hr 2.1 H* Lactic Acid F/U @ 4Hr Uric Acid 4.5 Calcium 9.1 D Phosphorus 2.7 Magnesium 1.5 L Total Bilirubin 0.3 Direct Bilirubin 0.2 AST 27 ALT 11 Alkaline Phosphatase 110 Lactate Dehydrogenase Total Creatine Kinase 124 Troponin I High Sens 13.0 D Total Protein 7.0 Albumin 4.1 TSH 1.27 Urine Color Urine Appearance Urine pH Ur Specific [place] Urine Protein Urine Glucose (UA) Urine Ketones Urine Blood Urine Nitrite Ur Leukocyte Esterase Urine RBC Urine WBC Ur Squamous Epith Cells Urine Bacteria Hyaline Casts Urine Osmolality Ur Random Sodium COVID-19 (HERSON) Negative COVID-19 Clin Com See Note Influenza Type A (MICHELLE) Negative Influenza Type A (PCR) Influenza Type B (MICHELLE) Negative Influenza Type B (PCR) Influenza A & B Note See Note RSV RNA Qual (PCR) SARS-CoV-2 RNA (RT-PCR) 04/21/25 04/22/25 04/22/25 23:48 02:20 05:47 MCV MCH MCHC RDW Plt Count MPV Immature Gran % (Auto) Neut % (Auto) Lymph % (Auto) [place] % (Auto) Eos % (Auto) Baso % (Auto) Lymph # (Auto) [place] # (Auto) Eos # (Auto) Baso # (Auto) Abs Immat Gran (auto) Absolute Neuts (auto) Absolute Nucleated RBC Nucleated RBC % (auto) Neutrophils % (Manual) Band Neutrophils % Lymphocytes % (Manual) Monocytes % (Manual) Basophils % (Manual) Abs Neuts (Manual) Lymphocytes # (Manual) Monocytes # (Manual) Basophils # (Manual) Toxic Vacuolation Platelet Estimate Plt Morphology Comment RBC Morphology [place] Cells VBG pH VBG pCO2 VBG pO2 VBG HCO3 VBG O2 Saturation VBG Base Excess Anion Gap Estim Creat Clear Calc Estimated GFR POC Glucose Random Glucose Haptoglobin Lactic Acid Lactic Acid F/U @ 2Hr Lactic Acid F/U @ 4Hr 1.1 Uric Acid Calcium Phosphorus Magnesium Total Bilirubin Direct Bilirubin AST ALT Alkaline Phosphatase Lactate Dehydrogenase Total Creatine Kinase Troponin I High Sens Total Protein Albumin TSH Urine Color Yellow Urine Appearance Clear Urine pH 7.0 Ur Specific [place] >= 1.030 H Urine Protein Trace Urine Glucose (UA) >=1000 H Urine Ketones Negative Urine Blood Negative Urine Nitrite Negative Ur Leukocyte Esterase Trace H Urine RBC 0-2 Urine WBC 6-10 H Ur Squamous Epith Cells 0-2 Urine Bacteria 4+ Hyaline Casts 0-2 Urine Osmolality 566 Ur Random Sodium 67.0 COVID-19 ([facility]ERSON) COVID-19 Clin Com Influenza Type A (MICHELLE) Influenza Type A (PCR) NEGATIVE Influenza Type B (MICHELLE) Influenza Type B (PCR) NEGATIVE Influenza A & B Note RSV RNA Qual (PCR) NEGATIVE SARS-CoV-2 RNA (RT-PCR) NEGATIVE 04/22/25 04/22/25 05:59 07:39 MCV 84.4 MCH 28.9 MCHC 34.3 RDW 13.5 Plt Count 180 MPV 8.6 L Immature Gran % (Auto) Cancelled Neut % (Auto) Cancelled Lymph % (Auto) Cancelled [place] % (Auto) Cancelled Eos % (Auto) Cancelled Baso % (Auto) Cancelled Lymph # (Auto) Cancelled [place] # (Auto) Cancelled Eos # (Auto) Cancelled Baso # (Auto) Cancelled Abs Immat Gran (auto) Cancelled Absolute Neuts (auto) Cancelled Absolute Nucleated RBC 0.000 Nucleated RBC % (auto) 0.0 Neutrophils % (Manual) 71 Band Neutrophils % 23 H Lymphocytes % (Manual) 3 L Monocytes % (Manual) 2 Basophils % (Manual) 1 Abs Neuts (Manual) 6.6 Lymphocytes # (Manual) 0.2 L Monocytes # (Manual) 0.1 Basophils # (Manual) 0.1 Toxic Vacuolation PRESENT Platelet Estimate NORMAL Plt Morphology Comment NORMAL RBC Morphology NOTED [place] Cells 3+ (>5) VBG pH VBG pCO2 VBG pO2 VBG HCO3 VBG O2 Saturation VBG Base Excess Anion Gap 10 L Estim Creat Clear Calc 83.6 Estimated GFR > 60 POC Glucose 96 Random Glucose 89 Haptoglobin 96 Lactic Acid Lactic Acid F/U @ 2Hr Lactic Acid F/U @ 4Hr Uric Acid Calcium 8.3 L D Phosphorus Magnesium Total Bilirubin 0.4 Direct Bilirubin AST 34 ALT 6 Alkaline Phosphatase 87 Lactate Dehydrogenase 260 Total Creatine Kinase Troponin I High Sens Total Protein 5.8 L Albumin 3.2 L TSH Urine Color Urine Appearance Urine pH Ur Specific [place] Urine Protein Urine Glucose (UA) Urine Ketones Urine Blood Urine Nitrite Ur Leukocyte Esterase Urine RBC Urine WBC Ur Squamous Epith Cells Urine Bacteria Hyaline Casts Urine Osmolality Ur Random Sodium COVID-19 ([facility]ERSON) COVID-19 Clin Com Influenza Type A (MICHELLE) Influenza Type A (PCR) Influenza Type B (MICHELLE) Influenza Type B (PCR) Influenza A & B Note RSV RNA Qual (PCR) SARS-CoV-2 RNA (RT-PCR) Assessment and Plan (1) Acute UTI: Status: Acute (2) Hydrocele: Status: Acute (3) Sepsis: Status: Acute Plan Patient is a 79-year-old male with past medical history small-cell lung cancer (nonsmoker, 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 Patient had concerns of urinary retention and fever. Patient being admitted for sepsis, possible source is urinary tract with evidence of hydrocele but workup continues. Sepsis likely secondary to urinary tract infection continue zosyn, and doxy for now follow cultures Urinary retention/ possible UTI History of BPH has follwy uro following Hydrocele present with hx Notable swelling on exam, decreased with pisano placement Per daughter this swelling is chronic US ordered Urology consulted No evidence of torision Possible source of infection Delirium/metabolic encephalopathy d/t uti, seems resolved Small-cell lung cancer Oncology consulted Patient currently on oral medication only, recently stopped immunotherapy as it was ineffective Patient currently on room air with no evidence of hypoxia Advance directives per patient's daughter who is his healthcare proxy, CPR requested but do not intubate Pressure ulcer right buttocks Wound relatively new per family Wound care consultation placed Turn and position every 2 hours Nutritional consult placed NIDDM Sliding scale insulin Diabetic diet GERD Continue omeprazole and famotidine Hyperlipidemia Continue statin once med rec completed DVT prophylaxis: Lovenox Med rec pending Per family and healthcare proxy patient will receive CPR but does not want to be intubated Quality Stroke Does the patient have a stroke diagnosis?: No Reason for No Anti-thrombotic by Day Two: N/A - Med Ordered VTE Prior VTE?: No VTE Risk Level:: Medical - moderate - high VTE Device Contraindication: N/A - Device Ordered VTE Drug Contraindication: N/A - Med Ordered
--- NOTE | 2025-04-22 12:44 | PC.NURSE ---
Family at bedside. Pt had two large soft formed bowel movements. Rectal probe replaced. Excoriated area to buttocks covered x 2 however easily coming off after incontinence episodes. NSR on tele. POC 89, for lunch. Breathing is even and unlabored.
[2025-04-22 12:45] LABS: Glucose, Whole Blood 89 mg/dL (60-115)
[2025-04-22 16:05] LABS: Glucose, Whole Blood 93 mg/dL (60-115)
[2025-04-22 20:50] LABS: Glucose, Whole Blood 95 mg/dL (60-115)
[2025-04-22] MEDS: 0.9 % Sodium Chloride Flush 3 ML SYRINGE IVFLUSH (21:34)
[2025-04-23] VITALS (7 sets, daily range): BP systolic 119–169; BP diastolic 61–79; PULSE 56–78; RESP 16–18; TEMP 36.2–37.6; O2SAT 96–100; BMI 28.9
[2025-04-23] MEDS: Lactated Ringers 1,000 ML 125 ML IVCONT ×3 (01:29→23:17)
[2025-04-23 07:37] LABS: Glucose, Whole Blood 63 mg/dL (60-115)
[2025-04-23] MEDS: 0.9 % Sodium Chloride Flush 3 ML SYRINGE IVFLUSH ×2 (08:40→16:15)
[2025-04-23 08:53] LABS: Magnesium 1.5 mg/dL (1.6-2.6)
--- NOTE | 2025-04-23 09:45 | P.PNIM_ITS ---
Subjective Subjective Date of Service: 04/23/25 Interval History: f/u on uti, sepsis, metabolic encephalopathy overall is better, no feve, cultures so far negative Physical Exam 2 Vital Signs: Vital Signs: Last Vital Signs Temp 97.4 F 04/23/25 07:44 Pulse 66 04/23/25 07:44 Resp 17 04/23/25 07:44 BP 119/72 04/23/25 07:44 Pulse Ox 100 04/23/25 07:44 O2 Del Method Room Air 04/23/25 07:44 BMI result Body Mass Index 28.9 General: AO X 3, no acute distress Resp: CTA bilateral CVS: S1,S2,RRR GI: +BS, NT, no distention Skin: No rash Neuro: motor grossly intact Psych: appropriate affect Objective Data Active Medications Acetaminophen (Acetaminophen 325 Mg Tablet) 650 mg PO Q6H PRN PRN Reason: Pain, Mild 1-3,fever,headache Last Admin: 04/22/25 11:44 Dose: 650 mg Documented By: DERIK Albuterol/Ipratropium (Albuterol/Iprat 2.5/0.5mg 3 Ml Ampul.Neb) 3 ml INHALE Q4H PRN PRN Reason: Shortness of Breath/Wheezing Lipase/Protease/Amylase (Lipase/Prot/Amylase 24/76/120k 1 Cap Capsule.Dr) 2 cap PO TIDWM [facility] Atorvastatin Calcium (Atorvastatin Calcium 10 Mg Tablet) 10 mg PO DAILY [facility] Calcium Carbonate (Calcium Carbonate 750 Mg Tab.Chew) 750 mg PO Q4H PRN PRN Reason: Heartburn Dextrose (Dextrose 50 % 25 Gm/50 Ml Syringe) 25 gm IVPUSH Q15M PRN; Protocol PRN Reason: per Hypoglycemia Standing Ord. Enoxaparin Sodium (Enoxaparin Sodium 40 Mg/0.4 Ml Syringe) 40 mg SUBCUT Q24H [facility] Last Admin: 04/23/25 01:29 Dose: 40 mg Documented By: EPHRAIM Famotidine (Famotidine 20 Mg Tablet) 20 mg PO DAILY [facility] Glucose (Glucose Gel 15 Gm Gel..Gram.) 15 gm PO Q15M PRN; Protocol PRN Reason: per Hypoglycemia Standing Ord. Lactated Ringer's (Lr) 1,000 mls @ 125 mls/hr IVCONT .Q8H [facility] Last Admin: 04/23/25 01:29 Dose: 125 mls/hr Documented By: EPHRAIM Doxycycline Hyclate 100 mg/ (Sodium Chloride) 250 mls @ 166.67 mls/hr IV Q12H [facility] Last Infusion: 04/23/25 06:16 Dose: Infused Documented By: EPHRAIM Piperacillin Sod/Tazobactam (Sod 4.5 gm/ Sodium Chloride) 100 mls @ 200 mls/hr IV Q6H [facility] Last Infusion: 04/23/25 09:38 Dose: Infused Documented By: MOUNIKA Magnesium Sulfate (Magnesium Sulfate/H2o) 2 gm in 50 mls @ 150 mls/hr IV ONCE ONE Stop: 04/23/25 09:59 Insulin Human Lispro (Insulin Lispro 100 Unit/Ml 3 Ml Vial) 0 unit SUBCUT QIDACHS [facility]; Protocol Last Admin: 04/23/25 07:41 Dose: Not Given Documented By: MOUNIKA Non-Admin Reason: No Insulin Coverage Magnesium Hydroxide (Milk Of Magnesia 30 Ml Oral.Susp) 30 ml PO DAILY PRN PRN Reason: Constipation Magnesium Oxide (Magnesium Oxide 400 Mg Tablet) 400 mg PO BIDPC [facility] Last Admin: 04/23/25 08:38 Dose: 400 mg Documented By: MOUNIKA Magnesium Oxide (Magnesium Oxide 400 Mg Tablet) 400 mg PO DAILY [facility] Melatonin (Melatonin 3 Mg Tablet) 6 mg PO BEDTIME PRN PRN Reason: Insomnia Mirtazapine (Mirtazapine 7.5 Mg Tablet) 7.5 mg PO BEDTIME [facility] Multivitamins/Vitamin C (Multivitamin Tablet) 1 tab PO DAILY@1700 [facility] Non-Formulary Medication (Dapagliflozin Propanediol [Farxiga]) 10 mg PO DAILY [facility] Non-Formulary Medication (Terazosin) 5 mg PO BEDTIME [facility] Omeprazole (Omeprazole 20 Mg Capsule.Dr) 20 mg PO BID@0630,1630 [facility] Ondansetron HCl (Ondansetron Hcl 4 Mg/2 Ml Vial) 4 mg IVPUSH Q8H PRN PRN Reason: Nausea and Vomiting Polyethylene Glycol (Polyethylene Glycol 3350 17 Gm Powd.Pack) 17 gm PO DAILY PRN PRN Reason: Constipation Sitagliptin Phosphate (Sitagliptin Phosphate 25 Mg Tablet) 25 mg PO DAILY [facility] Sodium Chloride (0.9 % Sodium Chloride Flush 3 Ml Syringe) 3 ml IVFLUSH QSHIFT [facility] Last Admin: 04/23/25 08:40 Dose: 3 ml Documented By: MOUNIKA Trazodone HCl (Trazodone Hcl 50 Mg Tablet) 50 mg PO BEDTIME [facility] Labs 04/22/25 05:59 04/22/25 05:59 Labs: Laboratory Results - last 24 hr 04/22/25 04/22/25 04/22/25 12:42 15:54 20:45 POC Glucose 89 93 95 Magnesium 04/23/25 04/23/25 07:11 08:14 POC Glucose 63 Magnesium 1.5 L Microbiology Microbiology Results: Microbiology 04/22/25 Unknown Urine Culture - Preliminary Urine Catheterized - Pat Catheter Culture in progress. 04/21/25 21: Blood Culture - Preliminary Blood - Venous No growth after 24 hours. 04/21/25 21: Blood Culture - Preliminary Blood - Venous No growth after 24 hours. 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 Patient had concerns of urinary retention and fever. Patient being admitted for sepsis, possible source is urinary tract with evidence of hydrocele but workup continues. Sepsis likely secondary to urinary tract infection continue tae scott follow cultures Urinary retention History of BPH has folley uro following, no intervention Hydrocele present with hx no intervention per uro Delirium/metabolic encephalopathy d/t uti, seems resolved Small-cell lung cancer Oncology consulted: hold chemo agentes coutl be source of fever Pressure ulcer right buttocks Wound relatively new per family Wound care consultation placed Turn and position every 2 hours Nutritional consult placed NIDDM Sliding scale insulin hold metformin for another another day Diabetic diet GERD Continue omeprazole and famotidine Hyperlipidemia Continue statin once med rec completed DVT prophylaxis: Lovenox Per family and healthcare proxy patient will receive CPR but does not want to be intubated Quality Stroke Does the patient have a stroke diagnosis?: No Reason for No Anti-thrombotic by Day Two: N/A - Med Ordered VTE Prior VTE?: No VTE Risk Level:: Medical - moderate - high VTE Device Contraindication: N/A - Device Ordered VTE Drug Contraindication: N/A - Med Ordered
[2025-04-23 10:08] LABS: Glucose, Whole Blood 142 mg/dL (60-115)
--- NOTE | 2025-04-23 10:33 | HO.WOUND ---
Wound Consult: Initial 79 yr old male admitted to [facility] on 04/22/25 - See progress notes and H&P for detailed history. Wound consult placed for buttocks. Patient agreeable to assessment and photo documentation. Right buttock Etiology: stage 3 pressure injury Present on Admission Measurements: 4cm x 2cm x 0.2cm two areas measured as one Wound Bed: moist pale pink, full thickness Drainage / Odor: serous scant, no odor Edges: ? irregular with evidence of friction/shearing Manju wound: ? No Induration, Fluctuance or Warmth noted, hyperpigmenation Pain: none Goals of Treatment: ? offloading, moist healing with triad/foam Right heel Etiology: stage 1 pressure injury Present on Admission Measurements: 1cm x 2cm x 0cm Wound Bed: intact red, slowly blanching Drainage / Odor: none Edges: ? Manju wound: ? No Induration, Fluctuance or Warmth noted Pain: none Goals of Treatment: ? offloading Recommendations: 1. Turn and Reposition every 2 hours and as needed for patient comfort. Use pillows or wedges to support off loading positions. 2. Off Load all bony prominences with use of pillows and heel boots if needed. Apply Preventative foams where needed. 3. Monitor for incontinence and moisture control, use barrier creams when needed for prevention and treatment. 4. Provide adequate and supplemental nutrition. 5. Order or Continue low air loss mattress. 6. When applicable maintain blood glucose levels per Providers order. Right buttock: Off Load Pressure with Q2 hr turns and use of pillows - Cleanse with PH balance spray or wipes, pat dry. ?Apply thin layer of Triad to wound bed. Do not remove all of paste between applications as this may cause further skin damage.? Cover with foam dressing to aid in off loading and protection from friction. Change every other day and PRN. Bilateral heels: Elevate heels off of bed surface with pillows. Float heels off of pillows. Apply skin prep allow to dry. Re-consult wound care Nurse for wound deterioration or wound changes.
[2025-04-23 11:21] LABS: Hematocrit 35.5 % (42.0-52.0); Hemoglobin 12.7 g/dl (14.0-18.0); Mean Corpuscular HGB Conc 35.8 g/dl (31.0-36.0); Mean Corpuscular Hemoglobin 29.3 pg (27.0-33.0); Mean Corpuscular Volume 82.0 fL (80.0-98.0); NRBC Abs Auto 0.000 X10*3/uL (0.0-0.012); NRBC Pct Auto 0.0 /100WBC (0.0-0.2); Platelet Count 141 X10*3/uL (160-400); Red Blood Count 4.33 X10*6/uL (4.60-5.80); White Blood Count 4.9 X10*3/uL (4.8-10.8)
[2025-04-23] MEDS: Magnesium Sulfate/H2O 2 GM/50 ML PIGGYBACK IV (11:25)
[2025-04-23 11:41] LABS: Anion Gap 8 (12-20); Blood Urea Nitrogen 13 mg/dL (9-16); Calcium 8.3 mg/dL (8.4-10.2); Carbon Dioxide 22 mmol/L (22-29); Chloride 98 mmol/L (96-108); Creatinine Clr Calc Pharmacy 108.4; Estimated Glomerular Filt Rate > 60; Potassium 3.3 mmol/L (3.3-5.1); Sodium 125 mmol/L (135-145)
[2025-04-23 11:53] LABS: Glucose, Whole Blood 139 mg/dL (60-115)
[2025-04-23] MEDS: Lipase/Prot/Amylase 24/76/120K 1 CAP CAPSULE.DR 2 CAP PO ×2 (13:23→17:16)
--- NOTE | 2025-04-23 14:06 | MHC.CLN ---
CONSULT PT WITH INCREASED NUTRITION RISK R/T PRESSURE INJURY PO 100% X1 MEAL DIET RX: 2000DM LACTOSE CONTROLLED-RECOMMEND 2200DM TO PROMOTE WOUND HEALING PT RECEIVING ENSURE BID PROVIDES 700KCALS, 40G PROTEIN MONITOR PO INTAKE AND ENCOURAGE SUPPLEMENT SEE FULL ASSESSMENT
--- NOTE | 2025-04-23 14:29 | MHC.CM.PN ---
IMM GIVEN 04/23. 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 PT STATED HE WAS TIRED, AND REQUESTED THIS CM SPEAK WITH HIS DAUGHTER TRISHA. THIS CM CALLED PTS DAUGHTER PER PTS REQUEST TO COMPLETE CM INTAKE ASSESSMENT, CALL PLACED VIA [employer] WET [employer] HELPER SERVICES LINE. PT LIVES AT HOME WITH HIS , HE HAS INVENTORY CONTROL/SHIPPING RECEIVING SERVICES 32 HOURS WEEKLY, AND HE IS ACTIVE WITH [facility] FOR SN/PT/OT. DME: WALKER, BEDSIDE COMMODE, SHOWER CHAIR, AND ASSISTIVE RAILS IN THE BATHROOM. PTS DAUGHTER WILL TRANSPORT HIM HOME AT DISCHARGE. HCP ON FILE AND VERIFIED. DCP: RETURN HOME WITH RESUMPTION OF PREVIOUS INVENTORY CONTROL/SHIPPING RECEIVING AND [facility], DAUGHTER TO TRANSPORT HIM HOME. PCP: ROB, [facility]
[2025-04-23 16:15] LABS: Glucose, Whole Blood 121 mg/dL (60-115)
[2025-04-23 20:29] LABS: Glucose, Whole Blood 140 mg/dL (60-115)
[2025-04-24 03:11] VITALS: BP 150/70; PULSE 78; RESP 18; TEMP 36.9; O2SAT 97
[2025-04-24 06:00] VITALS: BMI 26.0
[2025-04-24 06:58] LABS: Glucose, Whole Blood 106 mg/dL (60-115)
[2025-04-24 07:13] VITALS: BP 137/73; PULSE 62; RESP 20; TEMP 36.7; O2SAT 98
[2025-04-24] MEDS: Lipase/Prot/Amylase 24/76/120K 1 CAP CAPSULE.DR 2 CAP PO ×3 (08:58→16:39)
[2025-04-24 10:50] LABS: Glucose, Whole Blood 190 mg/dL (60-115)
[2025-04-24 10:55] VITALS: BP 128/70; PULSE 89; RESP 20; TEMP 36.7; O2SAT 100
[2025-04-24 11:13] LABS: Anion Gap 13 (12-20); Blood Urea Nitrogen 11 mg/dL (9-16); Carbon Dioxide 22 mmol/L (22-29); Chloride 102 mmol/L (96-108); Creatinine Clr Calc Pharmacy 103.3; Estimated Glomerular Filt Rate > 60; Potassium 3.3 mmol/L (3.3-5.1); Sodium 134 mmol/L (135-145)
[2025-04-24 11:55] LABS: Calcium 9.3 mg/dL (8.4-10.2)
--- NOTE | 2025-04-24 12:24 | HO.PM.IMPN ---
Subjective Subjective Date of Service: 04/24/25 Interval History: f/u on uti, sepsis, metabolic encephalopathy overall is better, no fever, cultures so far negative sodium level is better Physical Exam Vital Signs: Vital Signs: Last Vital Signs Temp 98.1 F 04/24/25 10:55 Pulse 89 04/24/25 10:55 Resp 20 04/24/25 10:55 BP 128/70 04/24/25 10:55 Pulse Ox 100 04/24/25 10:55 O2 Del Method Room Air 04/24/25 10:55 BMI result Body Mass Index 26.0 General: AO X 3, no acute distress Resp: CTA bilateral CVS: S1,S2,RRR GI: +BS, NT, no distention Skin: No rash Neuro: motor grossly intact Psych: appropriate affect Objective Data Active Medications Acetaminophen (Acetaminophen 325 Mg Tablet) 650 mg PO Q6H PRN PRN Reason: Pain, Mild 1-3,fever,headache Last Admin: 04/22/25 11:44 Dose: 650 mg Documented By: DERIK Albuterol/Ipratropium (Albuterol/Iprat 2.5/0.5mg 3 Ml Ampul.Neb) 3 ml INHALE Q4H PRN PRN Reason: Shortness of Breath/Wheezing Lipase/Protease/Amylase (Lipase/Prot/Amylase 24/76/120k 1 Cap Capsule.Dr) 2 cap PO TIDWM [facility] Last Admin: 04/24/25 08:58 Dose: 2 cap Documented By: MOUNIKA Atorvastatin Calcium (Atorvastatin Calcium 10 Mg Tablet) 10 mg PO DAILY [facility] Last Admin: 04/24/25 08:58 Dose: 10 mg Documented By: MOUNIKA Calcium Carbonate (Calcium Carbonate 750 Mg Tab.Chew) 750 mg PO Q4H PRN PRN Reason: Heartburn Dextrose (Dextrose 50 % 25 Gm/50 Ml Syringe) 25 gm IVPUSH Q15M PRN; Protocol PRN Reason: per Hypoglycemia Standing Ord. Doxazosin Mesylate (Doxazosin Mesylate 2 Mg Tablet) 4 mg PO BEDTIME [facility] Last Admin: 04/23/25 23:14 Dose: 4 mg Documented By: IFTIKHAR Empagliflozin (Empagliflozin 10 Mg Tablet) 10 mg PO DAILY [facility] Last Admin: 04/24/25 08:58 Dose: 10 mg Documented By: MOUNIKA Enoxaparin Sodium (Enoxaparin Sodium 40 Mg/0.4 Ml Syringe) 40 mg SUBCUT Q24H [facility] Last Admin: 04/24/25 02:58 Dose: 40 mg Documented By: IFTIKHAR Famotidine (Famotidine 20 Mg Tablet) 20 mg PO DAILY [facility] Last Admin: 04/24/25 08:58 Dose: 20 mg Documented By: MOUNIKA Glucose (Glucose Gel 15 Gm Gel..Gram.) 15 gm PO Q15M PRN; Protocol PRN Reason: per Hypoglycemia Standing Ord. Doxycycline Hyclate 100 mg/ (Sodium Chloride) 250 mls @ 166.67 mls/hr IV Q12H [facility] Last Infusion: 04/24/25 09:21 Dose: Infused Documented By: MOUNIKA Piperacillin Sod/Tazobactam (Sod 4.5 gm/ Sodium Chloride) 100 mls @ 200 mls/hr IV Q6H [facility] Last Infusion: 04/24/25 10:53 Dose: Infused Documented By: MOUNIKA Insulin Human Lispro (Insulin Lispro 100 Unit/Ml 3 Ml Vial) 0 unit SUBCUT QIDACHS [facility]; Protocol Last Admin: 04/24/25 07:10 Dose: Not Given Documented By: MOUNIKA Non-Admin Reason: No Insulin Coverage Magnesium Hydroxide (Milk Of Magnesia 30 Ml Oral.Susp) 30 ml PO DAILY PRN PRN Reason: Constipation Magnesium Oxide (Magnesium Oxide 400 Mg Tablet) 400 mg PO BIDPC [facility] Last Admin: 04/24/25 08:58 Dose: 400 mg Documented By: MOUNIKA Melatonin (Melatonin 3 Mg Tablet) 6 mg PO BEDTIME PRN PRN Reason: Insomnia Mirtazapine (Mirtazapine 7.5 Mg Tablet) 7.5 mg PO BEDTIME [facility] Last Admin: 04/23/25 23:15 Dose: 7.5 mg Documented By: IFTIKHAR Multivitamins/Vitamin C (Multivitamin Tablet) 1 tab PO DAILY@1700 [facility] Last Admin: 04/23/25 17:16 Dose: 1 tab Documented By: SUNIL Omeprazole (Omeprazole 20 Mg Capsule.) 20 mg PO BID@0630,1630 [facility] Last Admin: 04/24/25 06:16 Dose: 20 mg Documented By: IFTIKHAR Ondansetron HCl (Ondansetron Hcl 4 Mg/2 Ml Vial) 4 mg IVPUSH Q8H PRN PRN Reason: Nausea and Vomiting Polyethylene Glycol (Polyethylene Glycol 3350 17 Gm Powd.Pack) 17 gm PO DAILY PRN PRN Reason: Constipation Sitagliptin Phosphate (Sitagliptin Phosphate 25 Mg Tablet) 25 mg PO DAILY [facility] Last Admin: 04/24/25 08:58 Dose: 25 mg Documented By: MOUNIKA Sodium Chloride (0.9 % Sodium Chloride Flush 3 Ml Syringe) 3 ml IVFLUSH QSHIFT [facility] Last Admin: 04/24/25 09:07 Dose: Not Given Documented By: MOUNIKA Non-Admin Reason: IV Running Trazodone HCl (Trazodone Hcl 50 Mg Tablet) 50 mg PO BEDTIME [facility] Last Admin: 04/23/25 23:15 Dose: 50 mg Documented By: FOXAS Labs 04/23/25 10:22 04/24/25 09:54 Labs: Laboratory Results - last 24 hr 04/23/25 04/23/25 04/24/25 16:09 20:23 06:54 Hold Purple Top Anion Gap Estim Creat Clear Calc Estimated GFR POC Glucose 121 H 140 H 106 Random Glucose Calcium Hold Yellow Top 04/24/25 04/24/25 04/24/25 09:54 10:40 10:46 Hold Purple Top SEE NOTE Anion Gap 13 Estim Creat Clear Calc 103.3 Estimated GFR > 60 POC Glucose 190 H Random Glucose 156 H Calcium 9.3 D Hold Yellow Top See Note Microbiology Microbiology Results: Microbiology 04/22/25 Unknown Urine Culture - Final Urine Catheterized - Pat Catheter 04/21/25 21:25 Blood Culture - Preliminary Blood - Venous No growth after 48 hours. 04/21/25 21:25 Blood Culture - Preliminary Blood - Venous No growth after 48 hours. 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 Patient had concerns of urinary retention and fever. Patient being admitted for sepsis, possible source is urinary tract with evidence of hydrocele but workup continues. Sepsis likely secondary to urinary tract infection culture negative DC zosyn, add po ceftin Urinary retention History of BPH has folley uro following, no intervention voiding trial Hydrocele present with hx no intervention per uro Hyponatremia, better today Delirium/metabolic encephalopathy d/t uti, seems resolved Small-cell lung cancer Oncology consulted: hold chemo agentes could be source of fever Pressure ulcer right buttocks Wound relatively new per family Wound care consultation placed Turn and position every 2 hours NIDDM Sliding scale insulin hold metformin for another another day Diabetic diet GERD Continue omeprazole and famotidine Hyperlipidemia Continue statin once med rec completed DVT prophylaxis: Lovenox Per family and healthcare proxy patient will receive CPR but does not want to be intubated PT eval Quality Stroke Does the patient have a stroke diagnosis?: No Reason for No Anti-thrombotic by Day Two: N/A - Med Ordered VTE Prior VTE?: No VTE Risk Level:: Medical - moderate - high VTE Device Contraindication: N/A - Device Ordered VTE Drug Contraindication: N/A - Med Ordered
--- NOTE | 2025-04-24 13:01 | PM.CNNEP ---
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 Consult requested for hyponatremia family at bedside. Review of Systems Constitutional: Denies fever(s) and Denies weight loss Cardiovascular: Denies chest pain Respiratory: Denies cough and Denies hemoptysis Gastrointestinal: Denies abdominal pain, Denies diarrhea and Denies nausea Musculoskeletal: Denies back pain Denies focal weakness PMFSH Past Medical History Medical History Syncope and collapse 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) HLD (hyperlipidemia) GERD (gastroesophageal reflux disease) Exocrine pancreatic insufficiency Abdominal bloating Renal cyst Loose stools History of revision of total replacement of right knee joint Lung mass High cholesterol Anemia Pleural hemorrhage Diverticulosis Hyponatremia Acute hyponatremia Colon cancer screening Erectile dysfunction Gastritis COVID-19 virus infection Hydrocele Cataract Hypercholesteremia Diabetes BPH (benign prostatic hyperplasia) Hypertension Family History Family History Father Diabetes Mother Diabetes Uterus cancer Mother Cancer Surgical History Surgical History History of bilateral knee replacement Visit for wound check S/P chest tube placement Hx of colonoscopy History of prostate surgery Social History Social History Household Members: Spouse, Family and Children Housing: Apartment Housing Other:: Pt lives in senior housing Are you a primary career portals teacher to a significant other at home: No Do you presently have visiting nurse or other home services: Yes Alcohol intake: never Comment: camera placed as pt is impulsive, attempts to get OOB. Hx falls recently Patient Tobacco Use Status: Never used Tobacco service: No Current occupational status: retired Current occupation: right handed Gender identity: Male Travel History Ebola Risk: Travel/Contact With Anyone From Affected Area/s: No Has Patient Experienced Ebola Symptoms: No Meds Allergies Allergy/AdvReac Type Severity Reaction Status Date / Time vancomycin Allergy Intermediate Redness of Verified 04/22/25 04:51 Skin Active Medications: Current Medications Acetaminophen (Acetaminophen 325 Mg Tablet) 650 mg PO Q6H PRN PRN Reason: Pain, Mild 1-3,fever,headache Last Admin: 04/22/25 11:44 Dose: 650 mg Albuterol/Ipratropium (Albuterol/Iprat 2.5/0.5mg 3 Ml Ampul.Neb) 3 ml INHALE Q4H PRN PRN Reason: Shortness of Breath/Wheezing Lipase/Protease/Amylase (Lipase/Prot/Amylase 24/76/120k 1 Cap Capsule.Dr) 2 cap PO TIDWM [facility] Last Admin: 04/24/25 08:58 Dose: 2 cap Atorvastatin Calcium (Atorvastatin Calcium 10 Mg Tablet) 10 mg PO DAILY [facility] Last Admin: 04/24/25 08:58 Dose: 10 mg Calcium Carbonate (Calcium Carbonate 750 Mg Tab.Chew) 750 mg PO Q4H PRN PRN Reason: Heartburn Dextrose (Dextrose 50 % 25 Gm/50 Ml Syringe) 25 gm IVPUSH Q15M PRN; Protocol PRN Reason: per Hypoglycemia Standing Ord. Doxazosin Mesylate (Doxazosin Mesylate 2 Mg Tablet) 4 mg PO BEDTIME [facility] Last Admin: 04/23/25 23:14 Dose: 4 mg Empagliflozin (Empagliflozin 10 Mg Tablet) 10 mg PO DAILY [facility] Last Admin: 04/24/25 08:58 Dose: 10 mg Enoxaparin Sodium (Enoxaparin Sodium 40 Mg/0.4 Ml Syringe) 40 mg SUBCUT Q24H [facility] Last Admin: 04/24/25 02:58 Dose: 40 mg Famotidine (Famotidine 20 Mg Tablet) 20 mg PO DAILY [facility] Last Admin: 04/24/25 08:58 Dose: 20 mg Glucose (Glucose Gel 15 Gm Gel..Gram.) 15 gm PO Q15M PRN; Protocol PRN Reason: per Hypoglycemia Standing Ord. Doxycycline Hyclate 100 mg/ (Sodium Chloride) 250 mls @ 166.67 mls/hr IV Q12H [facility] Last Infusion: 04/24/25 09:21 Dose: Infused Piperacillin Sod/Tazobactam (Sod 4.5 gm/ Sodium Chloride) 100 mls @ 200 mls/hr IV Q6H [facility] Last Infusion: 04/24/25 10:53 Dose: Infused Insulin Human Lispro (Insulin Lispro 100 Unit/Ml 3 Ml Vial) 0 unit SUBCUT QIDACHS [facility]; Protocol Last Admin: 04/24/25 07:10 Dose: Not Given Magnesium Hydroxide (Milk Of Magnesia 30 Ml Oral.Susp) 30 ml PO DAILY PRN PRN Reason: Constipation Magnesium Oxide (Magnesium Oxide 400 Mg Tablet) 400 mg PO BIDPC [facility] Last Admin: 04/24/25 08:58 Dose: 400 mg Melatonin (Melatonin 3 Mg Tablet) 6 mg PO BEDTIME PRN PRN Reason: Insomnia Mirtazapine (Mirtazapine 7.5 Mg Tablet) 7.5 mg PO BEDTIME [facility] Last Admin: 04/23/25 23:15 Dose: 7.5 mg Multivitamins/Vitamin C (Multivitamin Tablet) 1 tab PO DAILY@1700 [facility] Last Admin: 04/23/25 17:16 Dose: 1 tab Omeprazole (Omeprazole 20 Mg Capsule.Dr) 20 mg PO BID@0630,1630 [facility] Last Admin: 04/24/25 06:16 Dose: 20 mg Ondansetron HCl (Ondansetron Hcl 4 Mg/2 Ml Vial) 4 mg IVPUSH Q8H PRN PRN Reason: Nausea and Vomiting Polyethylene Glycol (Polyethylene Glycol 3350 17 Gm Powd.Pack) 17 gm PO DAILY PRN PRN Reason: Constipation Sitagliptin Phosphate (Sitagliptin Phosphate 25 Mg Tablet) 25 mg PO DAILY [facility] Last Admin: 04/24/25 08:58 Dose: 25 mg Sodium Chloride (0.9 % Sodium Chloride Flush 3 Ml Syringe) 3 ml IVFLUSH QSHIFT [facility] Last Admin: 04/24/25 09:07 Dose: Not Given Trazodone HCl (Trazodone Hcl 50 Mg Tablet) 50 mg PO BEDTIME [facility] Last Admin: 04/23/25 23:15 Dose: 50 mg Home Medications ?Medication ?Instructions ?Recorded ?Confirmed ?Last Taken ?Type atorvastatin 10 mg tablet 10 mg PO DAILY 05/08/20 04/22/25 07/01/20 History blood sugar diagnostic #10 ea 10/04/20 04/13/25 Unknown History lancets 33 gauge #100 ea 10/04/20 04/13/25 Unknown History metformin 1,000 mg tablet 1,000 mg PO BIDWM 10/04/20 04/22/25 Unknown History multivitamin 1 tab PO DAILY@1700 10/04/20 04/22/25 Unknown History dapagliflozin propanediol 10 mg 10 mg PO DAILY 10/09/21 04/22/25 05/03/24 History tablet (Farxiga) omeprazole 20 mg capsule,delayed 20 mg PO BID@0630,1630 04/29/24 04/22/25 Unknown History release dabrafenib 75 mg capsule 150 mg PO BID 04/22/25 04/22/25 Unknown History etgbcz-adoopisq-qpslerk 2 cap PO TIDWM 04/22/25 04/22/25 Unknown History 24,000-76,000-120,000 unit capsule,delayed rel (Creon) mirtazapine 7.5 mg tablet 7.5 mg PO BEDTIME 04/22/25 04/22/25 Unknown History sitagliptin phosphate 25 mg tablet 25 mg PO DAILY 04/22/25 04/22/25 Unknown History (Rimma) trametinib 2 mg tablet (Mekinist) 2 mg PO DAILY@0600 04/22/25 04/22/25 Unknown History Physical Exam Vital Signs: Last Vital Signs Temp 98.1 F 04/24/25 10:55 Pulse 89 04/24/25 10:55 Resp 20 04/24/25 10:55 BP 128/70 04/24/25 10:55 Pulse Ox 100 04/24/25 10:55 O2 Del Method Room Air 04/24/25 10:55 BMI result Body Mass Index 26.0 Comfortable Neck supple no JVD. Lungs entry equal no rales. Heart S1-S2 heard no gallop or rub. Abdomen soft nontender. Neuro alert awake oriented. No asterixis. Extremities no edema. Results Lab Results 04/23/25 10:22 04/24/25 09:54 Lab results: Chemistry 04/21/25 04/22/25 04/23/25 21:25 05:59 10:23 Sodium 128 L 129 L 125 L Potassium 4.0 3.4 3.3 Carbon Dioxide 18 L 18 L 22 BUN 30 H 23 H 13 Creatinine 0.90 0.62 0.60 Calcium 9.1 D 8.3 L D 8.3 L Phosphorus 2.7 04/24/25 09:54 Sodium 134 L Potassium 3.3 Carbon Dioxide 22 BUN 11 Creatinine 0.57 Calcium 9.3 D Phosphorus Hematology 04/21/25 04/22/25 04/23/25 21:25 05:59 10:22 WBC 7.5 7.0 4.9 Hgb 12.6 L 12.1 L 12.7 L Plt Count 229 D 180 141 L Urinalysis 04/21/25 23:48 Urine Color Yellow Urine Appearance Clear Urine pH 7.0 Ur Specific Sparks >= 1.030 H Urine Protein Trace Urine Glucose (UA) >=1000 H Urine Ketones Negative Urine Blood Negative Urine Nitrite Negative Ur Leukocyte Esterase Trace H Urine RBC 0-2 Urine WBC 6-10 H Ur Squamous Epith Cells 0-2 Hyaline Casts 0-2 Urine Studies 04/21/25 23:48 Urine Osmolality 566 Assessment and Plan (1) Hyponatremia: Status: Acute Plan Chronic asymptomatic hyponatremia with normal renal function. Serum sodium has gradually improved. He probably had non osmotic ADH release leading to decreased free water clearance. Recommendation oral free water restriction of 1.2 L per 24 hours. Goal is to keep serum sodium more than 130 millimoles. Monitor serum sodium daily No absolute indication for hypertonic saline or urea powder at this time. She will follow along with the team Procedures Date of Service Date of Service: 04/24/25
[2025-04-24 16:00] VITALS: BP 124/59; PULSE 62; RESP 18; TEMP 35.9; O2SAT 97
[2025-04-24 16:04] LABS: Glucose, Whole Blood 160 mg/dL (60-115)
[2025-04-24] MEDS: 0.9 % Sodium Chloride Flush 3 ML SYRINGE IVFLUSH ×2 (16:43→21:10)
[2025-04-24 19:34] VITALS: BP 132/65; PULSE 90; RESP 18; TEMP 37.1; O2SAT 99
[2025-04-24 20:30] LABS: Glucose, Whole Blood 194 mg/dL (60-115)
[2025-04-24 23:52] VITALS: BP 152/67; PULSE 70; RESP 18; TEMP 36.2; O2SAT 100
[2025-04-25 04:00] VITALS: BP 148/79; PULSE 84; RESP 18; TEMP 36.3; O2SAT 98
[2025-04-25 06:00] VITALS: BMI 27.1
[2025-04-25 07:02] LABS: Glucose, Whole Blood 91 mg/dL (60-115)
[2025-04-25 07:16] LABS: Anion Gap 13 (12-20); Blood Urea Nitrogen 13 mg/dL (9-16); Calcium 9.0 mg/dL (8.4-10.2); Carbon Dioxide 22 mmol/L (22-29); Chloride 105 mmol/L (96-108); Creatinine Clr Calc Pharmacy 90.6; Estimated Glomerular Filt Rate > 60; Potassium 3.5 mmol/L (3.3-5.1); Sodium 136 mmol/L (135-145)
[2025-04-25 07:23] VITALS: BP 118/56; PULSE 72; RESP 18; TEMP 36.7; O2SAT 100
[2025-04-25] MEDS: Lipase/Prot/Amylase 24/76/120K 1 CAP CAPSULE.DR 2 CAP PO ×2 (09:11→16:36)
[2025-04-25] MEDS: 0.9 % Sodium Chloride Flush 3 ML SYRINGE IVFLUSH (09:11)
[2025-04-25 11:06] LABS: Glucose, Whole Blood 93 mg/dL (60-115)
[2025-04-25 12:00] VITALS: BP 155/71; PULSE 64; RESP 18; TEMP 36.1; O2SAT 96
--- NOTE | 2025-04-25 12:45 | MHC.CM.PN ---
CM met with family of pt. with bilingual interpreter. Pt. was present, but asleep, his and 2 dtrs were present. DCP and PT rec. of STR discussed, family in agreement, no preferences noted, referrals out to [place] [facility], family lives in [place].
--- NOTE | 2025-04-25 13:08 | MHC.CLN ---
F/U DIET RX: 2200DM LACTOSE CONTROLLED. ENSURE BID PROVIDES 700KCALS, 40G PROTEIN. SKIN WITH STAGE III PRESSURE INJURY TO RIGHT BUTTOCK. SUPPLEMENT TO PROMOTE WOUND HEALING. MONITOR PO INTAKE AND ENCOURAGE SUPPLEMENT.
[2025-04-25 15:57] VITALS: BP 138/66; PULSE 75; RESP 19; TEMP 36.3; O2SAT 98
--- NOTE | 2025-04-25 16:07 | P.PNIM_ITS ---
Subjective Subjective Date of Service: 04/25/25 Interval History: f/u on uti, sepsis, metabolic encephalopathy overall is better, no fever, cultures so far negative sodium level is normal Physical Exam 2 Vital Signs: Vital Signs: Last Vital Signs Temp 97.4 F 04/25/25 15:57 Pulse 75 04/25/25 15:57 Resp 19 04/25/25 15:57 BP 138/66 04/25/25 15:57 Pulse Ox 98 04/25/25 15:57 O2 Del Method Room Air 04/25/25 15:57 BMI result Body Mass Index 27.1 General: AO X 3, no acute distress Resp: CTA bilateral CVS: S1,S2,RRR GI: +BS, NT, no distention Skin: No rash Neuro: motor grossly intact Psych: appropriate affect Objective Data Active Medications Acetaminophen (Acetaminophen 325 Mg Tablet) 650 mg PO Q6H PRN PRN Reason: Pain, Mild 1-3,fever,headache Last Admin: 04/22/25 11:44 Dose: 650 mg Documented By: DERIK Albuterol/Ipratropium (Albuterol/Iprat 2.5/0.5mg 3 Ml Ampul.Neb) 3 ml INHALE Q4H PRN PRN Reason: Shortness of Breath/Wheezing Lipase/Protease/Amylase (Lipase/Prot/Amylase 24/76/120k 1 Cap Capsule.Dr) 2 cap PO TIDWM [facility] Last Admin: 04/25/25 12:08 Dose: Not Given Documented By: VIPUL Non-Admin Reason: Patient Asleep Atorvastatin Calcium (Atorvastatin Calcium 10 Mg Tablet) 10 mg PO DAILY [facility] Last Admin: 04/25/25 09:11 Dose: 10 mg Documented By: BROB Calcium Carbonate (Calcium Carbonate 750 Mg Tab.Chew) 750 mg PO Q4H PRN PRN Reason: Heartburn Dextrose (Dextrose 50 % 25 Gm/50 Ml Syringe) 25 gm IVPUSH Q15M PRN; Protocol PRN Reason: per Hypoglycemia Standing Ord. Doxazosin Mesylate (Doxazosin Mesylate 2 Mg Tablet) 4 mg PO BEDTIME [facility] Last Admin: 04/24/25 21:09 Dose: 4 mg Documented By: IFTIKHAR Empagliflozin (Empagliflozin 10 Mg Tablet) 10 mg PO DAILY [facility] Last Admin: 04/25/25 09:11 Dose: 10 mg Documented By: JACQUELYN Enoxaparin Sodium (Enoxaparin Sodium 40 Mg/0.4 Ml Syringe) 40 mg SUBCUT Q24H [facility] Last Admin: 04/25/25 01:14 Dose: 40 mg Documented By: IFTIKHAR Famotidine (Famotidine 20 Mg Tablet) 20 mg PO DAILY [facility] Last Admin: 04/25/25 09:11 Dose: 20 mg Documented By: JACQUELYN Glucose (Glucose Gel 15 Gm Gel..Gram.) 15 gm PO Q15M PRN; Protocol PRN Reason: per Hypoglycemia Standing Ord. Insulin Human Lispro (Insulin Lispro 100 Unit/Ml 3 Ml Vial) 0 unit SUBCUT QIDACHS [facility]; Protocol Last Admin: 04/25/25 11:29 Dose: Not Given Documented By: JACQUELYN Non-Admin Reason: No Insulin Coverage Magnesium Hydroxide (Milk Of Magnesia 30 Ml Oral.Susp) 30 ml PO DAILY PRN PRN Reason: Constipation Magnesium Oxide (Magnesium Oxide 400 Mg Tablet) 400 mg PO BIDPC [facility] Last Admin: 04/25/25 09:11 Dose: 400 mg Documented By: JACQUELYN Melatonin (Melatonin 3 Mg Tablet) 6 mg PO BEDTIME PRN PRN Reason: Insomnia Mirtazapine (Mirtazapine 7.5 Mg Tablet) 7.5 mg PO BEDTIME [facility] Last Admin: 04/24/25 21:09 Dose: 7.5 mg Documented By: IFTIKHAR Multivitamins/Vitamin C (Multivitamin Tablet) 1 tab PO DAILY@1700 [facility] Last Admin: 04/24/25 16:39 Dose: 1 tab Documented By: SUNIL Omeprazole (Omeprazole 20 Mg Capsule.Dr) 20 mg PO BID@0630,1630 [facility] Last Admin: 04/25/25 05:30 Dose: 20 mg Documented By: IFTIKHAR Ondansetron HCl (Ondansetron Hcl 4 Mg/2 Ml Vial) 4 mg IVPUSH Q8H PRN PRN Reason: Nausea and Vomiting Polyethylene Glycol (Polyethylene Glycol 3350 17 Gm Powd.Pack) 17 gm PO DAILY PRN PRN Reason: Constipation Sitagliptin Phosphate (Sitagliptin Phosphate 25 Mg Tablet) 25 mg PO DAILY [facility] Last Admin: 04/25/25 09:11 Dose: 25 mg Documented By: JACQUELYN Sodium Chloride (0.9 % Sodium Chloride Flush 3 Ml Syringe) 3 ml IVFLUSH QSHIFT [facility] Last Admin: 04/25/25 09:11 Dose: 3 ml Documented By: JACQUELYN Trazodone HCl (Trazodone Hcl 50 Mg Tablet) 50 mg PO BEDTIME [facility] Last Admin: 04/24/25 21:09 Dose: 50 mg Documented By: ABDIASAS Labs 04/23/25 10:22 04/25/25 06:31 Labs: Laboratory Results - last 24 hr 04/24/25 04/25/25 04/25/25 20:26 06:31 06:59 Anion Gap 13 Estim Creat Clear Calc 90.6 Estimated GFR > 60 POC Glucose 194 H 91 Random Glucose 96 Calcium 9.0 04/25/25 11:03 Anion Gap Estim Creat Clear Calc Estimated GFR POC Glucose 93 Random Glucose Calcium Microbiology Microbiology Results: Microbiology 04/22/25 Unknown Urine Culture - Final Urine Catheterized - Pat Catheter 04/21/25 21:25 Blood Culture - Preliminary Blood - Venous No growth after 48 hours. 04/21/25 21:25 Blood Culture - Preliminary Blood - Venous No growth after 48 hours. 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 Patient had concerns of urinary retention and fever. Patient being admitted for sepsis, possible source is urinary tract with evidence of hydrocele but workup continues. Sepsis likely secondary to urinary tract infection culture negative DC zosyn, add po ceftin Urinary retention History of BPH has folley uro following, no intervention voiding trial Hydrocele present with hx no intervention per uro Hyponatremia, better today Delirium/metabolic encephalopathy d/t uti, seems resolved Small-cell lung cancer Oncology consulted: hold chemo agentes could be source of fever Pressure ulcer right buttocks Wound relatively new per family Wound care consultation placed Turn and position every 2 hours NIDDM Sliding scale insulin hold metformin for another another day Diabetic diet GERD Continue omeprazole and famotidine Hyperlipidemia Continue statin once med rec completed DVT prophylaxis: Lovenox Per family and healthcare proxy patient will receive CPR but does not want to be intubated PT eval Quality Stroke Does the patient have a stroke diagnosis?: No Reason for No Anti-thrombotic by Day Two: N/A - Med Ordered VTE Prior VTE?: No VTE Risk Level:: Medical - moderate - high VTE Device Contraindication: N/A - Device Ordered VTE Drug Contraindication: N/A - Med Ordered
[2025-04-25 16:14] LABS: Glucose, Whole Blood 143 mg/dL (60-115)
[2025-04-25 20:00] VITALS: BP 138/65; PULSE 64; RESP 20; TEMP 36.3; O2SAT 94
[2025-04-25 20:37] LABS: Glucose, Whole Blood 172 mg/dL (60-115)
[2025-04-25 23:54] VITALS: BP 124/66; PULSE 62; RESP 14; TEMP 36.3; O2SAT 98
[2025-04-26] MEDS: 0.9 % Sodium Chloride Flush 3 ML SYRINGE IVFLUSH ×3 (00:07→16:08)
[2025-04-26 04:00] VITALS: BP 118/56; PULSE 66; RESP 15; TEMP 36.3; O2SAT 98
[2025-04-26 06:45] LABS: Anion Gap 10 (12-20); Blood Urea Nitrogen 11 mg/dL (9-16); Calcium 9.1 mg/dL (8.4-10.2); Carbon Dioxide 24 mmol/L (22-29); Chloride 104 mmol/L (96-108); Creatinine Clr Calc Pharmacy 95.0; Estimated Glomerular Filt Rate > 60; Potassium 3.5 mmol/L (3.3-5.1); Sodium 134 mmol/L (135-145)
[2025-04-26 07:40] LABS: Glucose, Whole Blood 106 mg/dL (60-115)
[2025-04-26 07:44] VITALS: BP 133/62; PULSE 64; RESP 18; TEMP 36.4; O2SAT 96
[2025-04-26] MEDS: Lipase/Prot/Amylase 24/76/120K 1 CAP CAPSULE.DR 2 CAP PO ×3 (08:13→16:07)
--- NOTE | 2025-04-26 08:28 | PC.NURSE ---
Patient has a male purewick on,addressed with RENNY Garsia RN will reevaluate need for it at a later time,
--- NOTE | 2025-04-26 09:55 | HO.PM.IMPN ---
Subjective Subjective Date of Service: 04/26/25 Interval History: f/u on uti, sepsis, metabolic encephalopathy overall is better, no fever, cultures, vital wnl and no other complaints Physical Exam Vital Signs: Vital Signs: Last Vital Signs Temp 97.6 F 04/26/25 07:44 Pulse 64 04/26/25 07:44 Resp 18 04/26/25 07:44 BP 133/62 04/26/25 07:44 Pulse Ox 96 04/26/25 07:44 O2 Del Method Room Air 04/26/25 07:44 BMI result Body Mass Index 27.1 General: AO X 3, no acute distress Resp: CTA bilateral CVS: S1,S2,RRR GI: +BS, NT, no distention Skin: No rash Neuro: motor grossly intact Psych: appropriate affect Objective Data Active Medications Acetaminophen (Acetaminophen 325 Mg Tablet) 650 mg PO Q6H PRN PRN Reason: Pain, Mild 1-3,fever,headache Last Admin: 04/22/25 11:44 Dose: 650 mg Documented By: DERIK Albuterol/Ipratropium (Albuterol/Iprat 2.5/0.5mg 3 Ml Ampul.Neb) 3 ml INHALE Q4H PRN PRN Reason: Shortness of Breath/Wheezing Lipase/Protease/Amylase (Lipase/Prot/Amylase 24/76/120k 1 Cap Capsule.Dr) 2 cap PO TIDWM [facility] Last Admin: 04/26/25 08:13 Dose: 2 cap Documented By: REY Atorvastatin Calcium (Atorvastatin Calcium 10 Mg Tablet) 10 mg PO DAILY [facility] Last Admin: 04/26/25 08:13 Dose: 10 mg Documented By: REY Calcium Carbonate (Calcium Carbonate 750 Mg Tab.Chew) 750 mg PO Q4H PRN PRN Reason: Heartburn Cefuroxime Axetil (Cefuroxime Axetil 250 Mg Tablet) 250 mg PO Q12H [facility] Last Admin: 04/26/25 05:47 Dose: 250 mg Documented By: DANIELLA Dextrose (Dextrose 50 % 25 Gm/50 Ml Syringe) 25 gm IVPUSH Q15M PRN; Protocol PRN Reason: per Hypoglycemia Standing Ord. Doxazosin Mesylate (Doxazosin Mesylate 2 Mg Tablet) 4 mg PO BEDTIME [facility] Last Admin: 04/25/25 20:39 Dose: 4 mg Documented By: DANIELLA Empagliflozin (Empagliflozin 10 Mg Tablet) 10 mg PO DAILY [facility] Last Admin: 04/26/25 08:12 Dose: 10 mg Documented By: REY Enoxaparin Sodium (Enoxaparin Sodium 40 Mg/0.4 Ml Syringe) 40 mg SUBCUT Q24H [facility] Last Admin: 04/26/25 00:05 Dose: 40 mg Documented By: DANIELLA Famotidine (Famotidine 20 Mg Tablet) 20 mg PO DAILY [facility] Last Admin: 04/26/25 08:12 Dose: 20 mg Documented By: REY Glucose (Glucose Gel 15 Gm Gel..Gram.) 15 gm PO Q15M PRN; Protocol PRN Reason: per Hypoglycemia Standing Ord. Insulin Human Lispro (Insulin Lispro 100 Unit/Ml 3 Ml Vial) 0 unit SUBCUT QIDACHS [facility]; Protocol Last Admin: 04/26/25 08:04 Dose: Not Given Documented By: REY Non-Admin Reason: No Insulin Coverage Magnesium Hydroxide (Milk Of Magnesia 30 Ml Oral.Susp) 30 ml PO DAILY PRN PRN Reason: Constipation Magnesium Oxide (Magnesium Oxide 400 Mg Tablet) 400 mg PO BIDPC [facility] Last Admin: 04/26/25 08:12 Dose: 400 mg Documented By: REY Melatonin (Melatonin 3 Mg Tablet) 6 mg PO BEDTIME PRN PRN Reason: Insomnia Mirtazapine (Mirtazapine 7.5 Mg Tablet) 7.5 mg PO BEDTIME [facility] Last Admin: 04/25/25 20:39 Dose: 7.5 mg Documented By: DANIELLA Multivitamins/Vitamin C (Multivitamin Tablet) 1 tab PO DAILY@1700 [facility] Last Admin: 04/25/25 16:36 Dose: 1 tab Documented By: VIPUL Omeprazole (Omeprazole 20 Mg Capsule.Dr) 20 mg PO BID@0630,1630 [facility] Last Admin: 04/26/25 05:47 Dose: 20 mg Documented By: DANIELLA Ondansetron HCl (Ondansetron Hcl 4 Mg/2 Ml Vial) 4 mg IVPUSH Q8H PRN PRN Reason: Nausea and Vomiting Polyethylene Glycol (Polyethylene Glycol 3350 17 Gm Powd.Pack) 17 gm PO DAILY PRN PRN Reason: Constipation Sitagliptin Phosphate (Sitagliptin Phosphate 25 Mg Tablet) 25 mg PO DAILY [facility] Last Admin: 04/26/25 08:12 Dose: 25 mg Documented By: REY Sodium Chloride (0.9 % Sodium Chloride Flush 3 Ml Syringe) 3 ml IVFLUSH QSHIFT [facility] Last Admin: 04/26/25 08:13 Dose: 3 ml Documented By: REY Trazodone HCl (Trazodone Hcl 50 Mg Tablet) 50 mg PO BEDTIME [facility] Last Admin: 04/25/25 20:39 Dose: 50 mg Documented By: LYSZ Labs 04/23/25 10:22 04/26/25 05:52 Labs: Laboratory Results - last 24 hr 04/25/25 04/25/25 04/25/25 11:03 16:10 20:33 Anion Gap Estim Creat Clear Calc Estimated GFR POC Glucose 93 143 H 172 H Random Glucose Calcium 04/26/25 04/26/25 05:52 07:35 Anion Gap 10 L Estim Creat Clear Calc 95.0 Estimated GFR > 60 POC Glucose 106 Random Glucose 103 Calcium 9.1 Microbiology Microbiology Results: Microbiology 04/22/25 Unknown Urine Culture - Final Urine Catheterized - Pat Catheter 04/21/25 21:25 Blood Culture - Preliminary Blood - Venous No growth after 48 hours. 04/21/25 21:25 Blood Culture - Preliminary Blood - Venous No growth after 48 hours. 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 Patient had concerns of urinary retention and fever. Patient being admitted for sepsis, possible source is urinary tract with evidence of hydrocele but workup continues. Sepsis likely secondary to urinary tract infection culture negative DC zosyn, added po ceftin Urinary retention History of BPH has folley uro following, no intervention voiding trial Hydrocele present with hx no intervention per uro Hyponatremia, better, 134 Delirium/metabolic encephalopathy d/t uti, seems resolved Small-cell lung cancer Oncology consulted: hold chemo agents could be source of fever Pressure ulcer right buttocks Wound relatively new per family Wound care consultation placed Turn and position every 2 hours NIDDM Sliding scale insulin hold metformin for another another day Diabetic diet GERD Continue omeprazole and famotidine Hyperlipidemia Continue statin once med rec completed DVT prophylaxis: Lovenox Per family and healthcare proxy patient will receive CPR but does not want to be intubated PT eval Pt recommending STR Quality Stroke Does the patient have a stroke diagnosis?: No Reason for No Anti-thrombotic by Day Two: N/A - Med Ordered VTE Prior VTE?: No VTE Risk Level:: Medical - moderate - high VTE Device Contraindication: N/A - Device Ordered VTE Drug Contraindication: N/A - Med Ordered
--- NOTE | 2025-04-26 10:18 | PM.DS ---
DS: Providers Provider Date of Service: 04/26/25 Date of admission: 04/22/25 01:06 Date of discharge: 04/26/25 Primary care physician: ROB Brewer Consults: 04/22/25 02:01 Consult to Wound Care Routine Reason for consultation: pressure ulcer, friction tear? 04/22/25 02:04 Consult to Hematology / Oncology Routine Consulting Provider: [facility] Oncology/Hematology Reason for consultation: rec tx for SCLC, fev 103.3, AMS Has provider been notified: No 04/22/25 02:26 Consult to Urology Routine Consulting Provider: [facility] Reason for consultation: Urinary retention over 1000, history of BPH, on treatment for small-cell esteban Has provider been notified: No 04/22/25 04:37 Consult to Urology Routine Consulting Provider: [facility] Reason for consultation: sepsis, hydrocele suspected may be source Has provider been notified: No 04/23/25 17:06 Consult to Nephrology Routine Consulting Provider: [facility] Reason for consultation: hyponatremia Has provider been notified: No DS: Diagnosis Discharge Diagnosis (1) Acute UTI: Status: Acute (2) Hydrocele: Status: Acute (3) Sepsis: Status: Acute DS: Summary Hospital Course Hospital Course: admission hpi Chief Complaint: AMS, fever 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 Patient currently lives with spouse and daughter arrived and noted patient was trying to get out of the wheelchair and almost fell. Daughter was able to catch patient prior to fall. No fall occurred. Patient was shaking incessantly and felt very hot to the touch. Patient was also confused and not at his baseline. Patient kept expressing ?I want to pee?. Blood glucose at the time was 01:40. Daughter was unable to obtain blood pressure due to patient's shaking. 911 was called and when EMS arrived, patient remains alert but noted to have fever. Patient has not had an episode like this since starting treatment for his lung cancer. Patient has been on the pill therapy for approximately 4 weeks with a 1 week break during this interim due to a fainting spell which patient was admitted for here at [facility]. Oncology concluded that the fainting spell was not related to the oral chemotherapy. On arrival to the ED patient was febrile with a rectal temp of 103.3 degrees. Sepsis protocol was initiated patient received IV hydration per sepsis protocol at 30 mL/kilogram. Lactic acid 4.0 and after fluids is now 2.1. Fluids continue. Patient was started on Zosyn and vancomycin has been added. Labs did not note neutropenic presentation. Patient was scanned for abdomen and chest and both negative for any acute findings including pneumonia, PE or colitis. Patient has not been having issues with aspiration or swallowing. Appetite has been good. Family denied that patient has been having issues with diarrhea or constipation. Bladder scan positive for 1000 mL and patient was straight cath and urine sample sent. UA inconclusive for true UTI noting trace leukocyte esterase and white blood cells 6-10 but urine cultures pending. Low likelihood of tumor lysis syndrome considering patient's type of cancer with likely non bulky tumor. Potassium and calcium are normal. Uric acid, phosphorus, LDH, haptoglobin are pending. Patient does have a pressure ulcer in the right sacral area with evidence of possible frictional tear. Wound culture will be sent. Magnesium low at 1.5 and supplementation started IV in the ED. Patient being admitted for sepsis, source not 100% clear. Patient is having significant urinary retention issues with known BPH. 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 Patient had concerns of urinary retention and fever. Patient being admitted for sepsis, possible source is urinary tract with evidence of hydrocele but workup continues Sepsis likely secondary to urinary tract infection, he was initially treated with Zosyn, however culture have not grown anything and has been transitioned to oral Ceftin and will treat for 7 days. He is afebrile and WBC low. Urinary retention History of BPH has folley uro following, no intervention voiding trial Hydrocele present with hx no intervention per uro Hyponatremia, likely JUNE related to malignancy, better, 134 Delirium/metabolic encephalopathy d/t uti, seems resolved Small-cell lung cancer Oncology consulted: hold chemo agents could be source of fever Pressure ulcer right buttocks Wound relatively new per family Wound care consultation placed Turn and position every 2 hours NIDDM Sliding scale insulin hold metformin for another another day Diabetic diet GERD Continue omeprazole and famotidine Hyperlipidemia Continue statin once med rec completed Dispo: To short ter rehab Time Attestation Discharge Coordination Time (in mins): 40 Quality: Safe Use of Opioids Does Pt have an Active Cancer Diagnosis on the Problem List?: No Quality: Stroke Does the patient have a stroke diagnosis?: No Physical Exam Vital Signs: Vital Signs: Last Vital Signs Temp 97.6 F 04/26/25 07:44 Pulse 64 04/26/25 07:44 Resp 18 04/26/25 07:44 BP 133/62 04/26/25 07:44 Pulse Ox 96 04/26/25 07:44 O2 Del Method Room Air 04/26/25 07:44 BMI result Body Mass Index 27.1 DS: Data Data Completed and Pending Completed studies during hospitalization [Text1]: Procedures Drainage of Left Pleural Cavity with Drainage Device, Percutaneous Approach (04/29/24) Labs on day of discharge: Laboratory Results - last 24 hr 04/25/25 04/25/25 04/25/25 11:03 16:10 20:33 Sodium Potassium Chloride Carbon Dioxide Anion Gap BUN Creatinine Estim Creat Clear Calc Estimated GFR POC Glucose 93 143 H 172 H Random Glucose Calcium 04/26/25 04/26/25 05:52 07:35 Sodium 134 L Potassium 3.5 Chloride 104 Carbon Dioxide 24 Anion Gap 10 L BUN 11 Creatinine 0.62 Estim Creat Clear Calc 95.0 Estimated GFR > 60 POC Glucose 106 Random Glucose 103 Calcium 9.1 Preliminary micro results at discharge 04/21/25 21:25 Blood Culture - Preliminary Blood - Venous No growth after 48 hours. 04/21/25 21:25 Blood Culture - Preliminary Blood - Venous No growth after 48 hours. Discharge Plan Discharge Anticipated Discharge Date/Time: 04/26/25 10:59 Patient Disposition: Xfer SNF Discharge Diagnosis: Sepsis, UTI, hyponatremia [facility] - [facility] Week Referral Note: TRANSFER FOR SHORT TERM REHAB Gabe Thakkar MD [Physician, Urology] - 1 Week Referral Note: urinary retention Maria AAbbi, KNOCKOUT MACHINE OPERATOR [Primary Care Provider, Medical] - 1 Week Discharge Medications: New cefuroxime axetil 250 mg Tablet 250 mg PO Q12H Qty: 10 0RF Continued (DME) walker Misc See Rx Instructions .ROUTE .MEDSUPPLY Qty: 1 0RF Rx Instructions: Folding Front wheeled walker with seat terazosin 5 mg capsule 5 mg PO BEDTIME 90 Days Qty: 90 3RF omeprazole 20 mg capsule,delayed release(DR/EC) 20 mg PO BID@0630,1630 magnesium oxide 400 mg magnesium Capsule 400 mg PO DAILY Qty: 30 1RF ondansetron 8 mg Tablet,Disintegrating 8 mg PO Q8H PRN (Reason: Nausea) Qty: 30 2RF famotidine [Pepcid] 20 mg Tablet 20 mg PO DAILY Qty: 30 2RF trazodone 50 mg Tablet 50 mg PO BEDTIME Qty: 30 1RF mirtazapine 7.5 mg tablet 7.5 mg PO BEDTIME Januvia 25 mg tablet 25 mg PO DAILY Creon 24,000-76,000 -120,000 unit capsule,delayed release(DR/EC) 2 cap PO TIDWM dabrafenib 75 mg capsule 150 mg PO BID Mekinist 2 mg tablet 2 mg PO DAILY@0600 Rx Instructions: must be taken on empty stomach, at least 1 hr before or 2-3 hrs after meal/food metformin 1,000 mg tablet 1,000 mg PO BIDWM multivitamin Tablet 1 tab PO DAILY@1700 (DME) lancets 33 gauge misc See Rx Instructions topical .MEDSUPPLY Qty: 100 Rx Instructions: As directed (DME) blood sugar diagnostic Strip See Rx Instructions Not Applicable BID Qty: 10 Rx Instructions: As directed atorvastatin 10 mg tablet 10 mg PO DAILY Farxiga 10 mg tablet 10 mg PO DAILY Discharge Orders: Discharge Order (Routine); Ordered 04/26/25 Ordered By: Juliano Akbar Activity on Discharge: As tolerated Stand Alone Forms: Patient Portal Discharge page Print Language: Lithuanian Care Plan Goals: recovery from sepsis, uti, encephalopathy, urinary retention Health Concerns: same as above Plan of Treatment: nancy the course of cefuroxime follow up with urology follow up with oncology Assessment: see above
[2025-04-26 11:36] LABS: Glucose, Whole Blood 155 mg/dL (60-115)
[2025-04-26 12:00] VITALS: BP 103/56; PULSE 72; RESP 18; TEMP 36.6; O2SAT 98
--- NOTE | 2025-04-26 14:10 | MHC.CM.PN ---
DP: PT HAS BEEN MEDICALLY CLEARED FOR DC TO STR AT [facility]. BLS TRANSPORT BOOKED FOR 5:30 PM VIA [facility]. RN/MD MADE AWARE. FAMILY (HCP ISI/TRISHA) AT BEDSIDE AND MADE AWARE VIA ELECTRIC MULE OPERATOR. FINAL IMM ISSUED.
--- NOTE | 2025-04-26 15:48 | PC.NURSE ---
Per Dr. Akbar patient will be discharge with Pat
[2025-04-26 16:00] VITALS: BP 143/66; RESP 19; TEMP 36.5
[2025-04-26 16:30] LABS: Glucose, Whole Blood 109 mg/dL (60-115)
--- NOTE | 2025-04-26 22:54 | PC.NURSE ---
Addendum entered by Ruth Galloway RN 05/02/25 02:27: cef was hung on 04/21 @210. Original Note: Cef was ordered at 2054, hung at 2108. Blood cultures were obtained prior to the administration of the antibiotics. The tech had got the cultures before and I believe there was a miscommunication on whether they were scanned before the abx were hung, but they were for certain obtained prior to the abx being administered.
--- NOTE | 2025-04-27 07:46 | P.CDIM_ITS ---
PROVIDER RESPONSE TEXT: To clarify, the appropriate diagnosis supported by the clinical indicators: Pressure Injury right heel Stage 1: suspected QUERY TEXT: PHYSICIAN'S DOCUMENTATION REQUEST Date of Query: 04/25/2025 11:17 AM EDT Patient Name: Lei Drew Admit Date: 04/22/2025 Dear Juliano Akbar MD, A review of the medical record indicates additional documentation may be needed. Please review below and update the documentation accordingly. Clinical Indicators: Wound care consultation notes 04/23/25 - Right heel Stage 1 pressure injury - Present on Admission Intact red, slowly blanching. Off loading. Float heels off of pillows. Apply skin prep allow to dry. Based on the above, could you please provide further information regarding the ulcer/wound/injury: Pressure Injury right heel Stage 1 possible, probable, suspected etc. Other Please specify Other (explain) Clinically unable to determine (explain) Thank you, Maylin Reinoso, CCS, CDIS Use of terms such as suspected, likely, concern for, or probable (associated with a specific diagnosis that is being evaluated, monitored, or treated as if it exists) are acceptable and can be coded in the inpatient setting, when documented at the time of discharge. Please use your independent medical judgment in providing your response. THIS QUERY IS PART OF THE PERMANENT MEDICAL RECORD
== END 2025-04-26 18:30 | disposition skilled nursing facility (03) | DRG 725 ==
LOC: HO.ED 23:39 → HO.EDOVER 04-22 01:19 → HO.IMC 04-22 17:14 → HO.S3 04-25 10:45
PROVIDERS: Admitting Provider Nurse Practitioner Family; Emergency Provider Emergency Medicine; PCP Registered Nurse; Visit Provider Internal Medicine
DX: N40.1 Benign prostatic hyperplasia with lower urinary tract symptoms (principal); G93.41 Metabolic encephalopathy; L89.313 Pressure ulcer of right buttock, stage 3; F05 Delirium due to known physiological condition; J98.11 Atelectasis; C34.90 Malignant neoplasm of unspecified part of unspecified bronchus or lung; E22.2 Syndrome of inappropriate secretion of antidiuretic hormone; E11.9 Type 2 diabetes mellitus without complications; E78.5 Hyperlipidemia, unspecified; K21.9 Gastro-esophageal reflux disease without esophagitis; R33.8 Other retention of urine; N43.3 Hydrocele, unspecified; L89.611 Pressure ulcer of right heel, stage 1; Z20.822 Contact with and (suspected) exposure to COVID-19; Z79.84 Long term (current) use of oral hypoglycemic drugs; Z79.899 Other long term (current) drug therapy
CPT/HCPCS: 36415; 71045; 71275; 74177; 76870; 80048; 80053; 80076; 81001; 82550; 82803; 82947; 83010; 83605; 83615; 83735; 83935; 84100; 84300; 84443; 84484; 84550; 85007; 85025; 85027; 87040; 87086; 87502; 87635; 87637; 93005; 97162; 97530; 99285; J0131; J0692; J1200; J1271; J1650; J2543; J3360; J3374; J3475; J7120; Q9967

== ENCOUNTER → 2025-04-21 20:45 | Outpatient (BNV) | payer OTHER, SELFPAY | PROVIDERS: Admitting Provider Nurse Practitioner Family; Emergency Provider Emergency Medicine; PCP Registered Nurse; Visit Provider Internal Medicine | DX: I45.10 Unspecified right bundle-branch block (principal) | CPT/HCPCS: 93010 ==

== ENCOUNTER → 2025-04-21 20:45 | Outpatient (BNV) | payer OTHER, SELFPAY | PROVIDERS: Emergency Provider Emergency Medicine; PCP Registered Nurse; Visit Provider Radiology Diagnostic Radiology | DX: R06.02 Shortness of breath (principal) | CPT/HCPCS: 71045; 71275; 74177 ==

== ENCOUNTER 2025-04-22 01:06 | Outpatient (BNV) | payer OTHER, SELFPAY | END 2025-04-22 07:40 | PROVIDERS: Admitting Provider Nurse Practitioner Family; Emergency Provider Emergency Medicine; PCP Registered Nurse; Visit Provider Radiology Diagnostic Radiology | DX: N43.3 Hydrocele, unspecified (principal) | CPT/HCPCS: 76870 ==

== ENCOUNTER → 2025-04-22 01:06 | Outpatient (BNV) | payer OTHER, SELFPAY | PROVIDERS: Admitting Provider Nurse Practitioner Family; Emergency Provider Emergency Medicine; PCP Registered Nurse; Visit Provider Internal Medicine | DX: C34.90 Malignant neoplasm of unspecified part of unspecified bronchus or lung (principal); E87.1 Hypo-osmolality and hyponatremia | CPT/HCPCS: 99222 ==

== ENCOUNTER → 2025-04-22 01:06 | Outpatient (BNV) | payer OTHER, SELFPAY | PROVIDERS: Admitting Provider Nurse Practitioner Family; Emergency Provider Emergency Medicine; PCP Registered Nurse; Visit Provider Internal Medicine | DX: N39.0 Urinary tract infection, site not specified (principal); N43.3 Hydrocele, unspecified; A41.9 Sepsis, unspecified organism | CPT/HCPCS: 99232 ==

== ENCOUNTER → 2025-04-22 01:06 | Outpatient (BNV) | payer OTHER, SELFPAY | PROVIDERS: Admitting Provider Nurse Practitioner Family; Emergency Provider Emergency Medicine; PCP Registered Nurse; Visit Provider Urology | DX: N39.0 Urinary tract infection, site not specified (principal); R33.8 Other retention of urine; N43.3 Hydrocele, unspecified | CPT/HCPCS: 99222 ==

== ENCOUNTER → 2025-04-22 01:06 | Outpatient (BNV) | payer OTHER, SELFPAY | PROVIDERS: Admitting Provider Nurse Practitioner Family; Emergency Provider Emergency Medicine; PCP Registered Nurse; Visit Provider Internal Medicine Hypertension Specialist | DX: E87.1 Hypo-osmolality and hyponatremia (principal) | CPT/HCPCS: 99223 ==

== ENCOUNTER 2025-05-13 15:31 | Inpatient (IN) | payer OTHER, SELFPAY ==
[2025-05-13] VITALS (7 sets, daily range): BP systolic 89–138; BP diastolic 53–87; PULSE 87–130; RESP 18–34; TEMP 38.5–40.3; O2SAT 93–100; BMI 23.6
--- NOTE | ~2025-05-13 | XR_ITS ---
CLINICAL HISTORY: weakness 1 view chest x-ray Comparison: CR/VA/SR - XR CHEST 2 VIEWS - 04/04/25 11:24 EDT Findings: The lungs are clear. Similar-appearing bronchial wall thickening. Similar prominent/enlarged cardiac silhouette. No acute fracture. IMPRESSION: 1. No acute findings. This document has been electronically signed by: Ross Mack MD on 05/13/2025 18:10:55
--- NOTE | 2025-05-13 15:43 | ECG_ITS ---
Test Reason : WEAKNESS Blood Pressure : */* mmHG Vent. Rate : 85 BPM Atrial Rate : 85 BPM P-R Int : 170 ms QRS Dur : 138 ms QT Int : 378 ms P-R-T Axes : 14 -25 3 degrees QTcB Int : 449 ms Normal sinus rhythm Right bundle branch block Abnormal ECG When compared with ECG of 21-Apr-2025 21:43, No significant change was found Referred By: Patricia Kerr Electronically Signed By: MORENO TANNER
--- NOTE | 2025-05-13 16:00 | ED.GENADULT ---
HPI - General Adult General Chief complaint: Altered Mental Status Stated complaint: Fevers Time Seen by Provider: 05/13/25 16:00 History of Present Illness ED Provider: Gino KEYS narrative: The patient is a 79-year-old male. He was recently hospitalized earlier this month from April 22 through April 26. At that time he was thought to be possibly septic although the source was not clear. He was treated for possible urosepsis. At the time of discharge he was prescribed 5 days of cefuroxime 2 finish after discharge. He was discharged to a rehab facility, [facility]. Two days ago on Wednesday he was discharged from the rehab facility to home. He did well yesterday and seemed well this morning until around 2PM this afternoon when he developed shaking chills and looked ill and seemed confused. His family then drove him to the emergency department. The family says these symptoms are very similar to the symptoms that brought him to the hospital earlier this month for his previous hospitalization. The patient is complaining of a sense of discomfort all over his body but he denies any focal discomfort. He denies headache, chest pain, abdominal pain. No nausea or vomiting. No diarrhea. Related Data Home Medications ?Medication ?Instructions ?Recorded ?Confirmed atorvastatin 10 mg tablet 10 mg PO DAILY 05/08/20 05/04/25 blood sugar diagnostic #10 ea 10/04/20 05/04/25 lancets 33 gauge #100 ea 10/04/20 05/04/25 metformin 1,000 mg tablet 1,000 mg PO BIDWM 10/04/20 05/04/25 multivitamin 1 tab PO DAILY@1700 10/04/20 05/04/25 dapagliflozin propanediol 10 mg 10 mg PO DAILY 10/09/21 05/04/25 tablet (Farxiga) omeprazole 20 mg capsule,delayed 20 mg PO BID@0630,1630 04/29/24 05/04/25 release dabrafenib 75 mg capsule 150 mg PO BID 04/22/25 05/04/25 oqwqst-dlwcnpzi-jnqvve(pork)24,000-76,000-120,000 2 cap PO TIDWM 04/22/25 05/04/25 unit capsule,del rel (Creon) mirtazapine 7.5 mg tablet 7.5 mg PO BEDTIME 04/22/25 05/04/25 sitagliptin phosphate 25 mg tablet 25 mg PO DAILY 04/22/25 05/04/25 (Januvia) trametinib 2 mg tablet (Mekinist) 2 mg PO DAILY@0600 04/22/25 05/04/25 Previous Rx's ?Medication ?Instructions ?Recorded walker #1 ea 04/30/20 terazosin 5 mg capsule 5 mg PO BEDTIME 90 days #90 caps 02/21/25 magnesium oxide 400 mg PO DAILY #30 caps 03/22/25 famotidine 20 mg tablet (Pepcid) 20 mg PO DAILY #30 tabs 03/30/25 ondansetron 8 mg disintegrating 8 mg PO Q8H PRN Nausea #30 tabs 03/30/25 tablet trazodone 50 mg tablet 50 mg PO BEDTIME #30 tabs 04/20/25 cefuroxime axetil 250 mg tablet 250 mg PO Q12H #10 tabs 04/26/25 Allergies Allergy/AdvReac Type Severity Reaction Status Date / Time vancomycin Allergy Intermediate Redness of Verified 05/13/25 15:51 Skin Review of Systems Review of Systems: Yes all other systems are reviewed and are negative [facility] Past Medical History Medical History (Updated 05/13/25 @ 20:23 by Etienne Christian MD) Syncope and collapse 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) HLD (hyperlipidemia) GERD (gastroesophageal reflux disease) Exocrine pancreatic insufficiency Abdominal bloating Renal cyst Loose stools History of revision of total replacement of right knee joint Lung mass High cholesterol Anemia Pleural hemorrhage Diverticulosis Hyponatremia Acute hyponatremia Colon cancer screening Erectile dysfunction Gastritis COVID-19 virus infection Hydrocele Cataract Hypercholesteremia Diabetes BPH (benign prostatic hyperplasia) Hypertension Surgical History History of bilateral knee replacement Visit for wound check S/P chest tube placement Hx of colonoscopy History of prostate surgery Family History Family History Father Diabetes Mother Diabetes Uterus cancer Mother Cancer Social History Social History Household Members: Spouse, Family and Children Housing: Apartment Housing Other:: Pt lives in senior housing Are you a primary home health care coordinator to a significant other at home: No Do you presently have visiting nurse or other home services: Yes Alcohol intake: never Comment: camera placed as pt is impulsive, attempts to get OOB. Hx falls recently Patient Tobacco Use Status: Never used Tobacco Smoked in Last 30 Days: No Use of substances other than those prescribed or required for medical reasons: No Advance Directives: Yes Advance Directives on File: Yes Advance Directives Date on File: 04/06/25 Do you have a plan to hurt others: No Plan service: No Current occupational status: retired Current occupation: right handed Gender identity: Male Physical Exam ED Vital Signs: Vital Signs - 24 hr 05/13/25 15:43 05/13/25 17:00 05/13/25 17:30 Temperature 104.5 F H Pulse Rate 130 H 114 H 92 Respiratory Rate 34 H 22 H 20 Blood Pressure 138/87 103/54 L 89/53 L Pulse Oximetry 96 93 99 Oxygen Delivery Method Room Air Room Air Room Air 05/13/25 17:45 05/13/25 18:00 05/13/25 18:50 Temperature 101.3 F H Pulse Rate 91 93 87 Respiratory Rate 19 18 18 Blood Pressure 91/53 L 97/58 L 123/66 Pulse Oximetry 99 100 97 Oxygen Delivery Method Room Air Room Air Room Air 05/13/25 19:05 Temperature Pulse Rate 88 Respiratory Rate 19 Blood Pressure 110/63 Pulse Oximetry 98 Oxygen Delivery Method Room Air BMI result Body Mass Index 23.6 Const Other: The patient is a frail 79-year-old. He is awake and alert. He looks somewhat ill but does not seem in distress. HENIL Other: The face is symmetrical. ?Mucous membranes moist. Eyes General: appearance normal, both eyes and all related structures Neck Neck: Yes normal visual inspection, Yes full ROM and Yes no JVD Resp Effort & Inspection: normal respiratory effort Auscultation: clear to auscultation bilaterally Cardio Rate: tachycardic Rhythm: regular rhythm Heart sounds: S1 normal heart sound present and S2 normal heart sound present GI Other: Abdomen is soft and nontender Skin Other: The skin is dry and unremarkable Neuro Other: The patient is awake and alert. He seems to have a somewhat vague demeanor but does not seem frankly disoriented or confused. Cranial nerves are grossly intact. He seems frail and deconditioned but moves his extremities symmetrically and seems to have no focal finding. Extrem Other: The patient has somewhat wasted extremities. There was no calf swelling or tenderness. No asymmetry. No tenderness. Medications Administered Generic Name Dose Route Start Last Admin Trade Name Freq PRN Reason Stop Dose Admin Lactated Ringer's 1,000 mls @ 999 mls/hr 05/13/25 20:15 05/13/25 20:14 Lr IV 05/13/25 21:15 999 mls/hr .Q1H1M JOHNATHAN Administration Discontinued Medications Generic Name Dose Route Start Last Admin Trade Name Freq PRN Reason Stop Dose Admin Piperacillin Sod/Tazobactam 100 mls @ 200 mls/hr 05/13/25 16:16 05/13/25 17:06 Sod 4.5 gm/ Sodium Chloride IV 05/13/25 16:45 Infused ONCE ONE Infusion Vancomycin HCl 1,500 mg/ 500 mls @ 333.333 mls/hr 05/13/25 16:26 05/13/25 20:00 Sodium Chloride IV 05/13/25 17:55 Infused ONCE ONE Infusion Sodium Chloride 1,000 mls @ 999 mls/hr 05/13/25 16:30 05/13/25 18:00 Ns IV 05/13/25 17:30 Infused .Q1H1M JOHNATHAN Infusion Acetaminophen 1,000 mg in 100 mls @ 400 mls/hr 05/13/25 16:29 05/13/25 17:00 Ofirmev IV 05/13/25 16:43 Infused ONCE ONE Infusion Sodium Chloride 1,000 mls @ 999 mls/hr 05/13/25 17:45 05/13/25 18:40 Ns IV 05/13/25 18:45 Infused .Q1H1M JOHNATHAN Infusion Magnesium Sulfate 2 gm in 50 mls @ 150 mls/hr 05/13/25 18:00 05/13/25 19:10 Magnesium Sulfate/H2o IV 05/13/25 18:19 Infused ONCE ONE Infusion Medical Decision Making Medical Decision Making MDM Narrative: The patient is a 79-year-old male who arrives from home after feeling abruptly ill today. He developed abrupt onset shaking chills and weakness. On arrival here he was febrile and tachycardic. There was concern for possible sepsis and he was given empiric antibiotics and empiric IV fluids. His initial lactate was elevated at 3.8. He had some borderline blood pressures but he was never frankly hypotensive. He seemed to improve with IV fluids. A repeat lactate was 2.1. His urinalysis is potentially consistent with a UTI but he has a chronic indwelling Pat catheter. He has a soft abdomen. He I do not think he has an intra-abdominal source of infection. His chest x-ray is clear. No other sign of infection seems apparent. Interestingly he was hospitalized with a similar presentation a few weeks ago and was treated for what was thought to be urosepsis. However all of his cultures were negative. He will be admitted to the hospitalist service for further care. Lab Data 05/13/25 16:24 05/13/25 16:24 Labs: Lab Results 05/13/25 05/13/25 05/13/25 Range/Units 16:24 16:35 16:43 WBC 7.3 (4.8-10.8) X10*3/uL RBC 4.91 (4.60-5.80) X10*6/uL Hgb 14.0 (14.0-18.0) g/dl Hct 41.2 L (42.0-52.0) % MCV 83.9 (80.0-98.0) fL MCH 28.5 (27.0-33.0) pg MCHC 34.0 (31.0-36.0) g/dl RDW 13.5 (11.0-16.0) % Plt Count 273 D (160-400) X10*3/uL MPV 8.6 L (9.4-12.4) fL Immature Gran % (Auto) 1.5 H (0.0-0.4) % Neut % (Auto) 80.9 H (45-73) % Lymph % (Auto) 8.1 L (20-40) % Hayes % (Auto) 8.8 (2-11) % Eos % (Auto) 0.1 (0-4) % Baso % (Auto) 0.6 (0-2) % Lymph # (Auto) 0.6 L (1.2-4.9) X10*3/uL Hayes # (Auto) 0.6 (0.1-1.2) X10*3/uL Eos # (Auto) 0.0 (0.0-0.4) X10*3/uL Baso # (Auto) 0.0 (0.0-0.2) X10*3/uL Abs Immat Gran (auto) 0.11 H (0.00-0.03) X10*3/uL Absolute Neuts (auto) 5.9 (2.0-8.3) x10*3/uL Absolute Nucleated RBC 0.000 (0.0-0.012) X10*3/uL Nucleated RBC % (auto) 0.0 (0.0-0.2) /100WBC PT 14.4 H D (10.9-12.4) SEC INR 1.3 H (0.9-1.1) VBG pH 7.52 H (7.32-7.43) VBG pCO2 26 mmHg VBG pO2 58 mmHg VBG HCO3 22 (22-26) mmol/L VBG O2 Saturation 88.0 % VBG Base Excess 0.6 mmol/L Sodium 135 (135-145) mmol/L Potassium 4.5 D (3.3-5.1) mmol/L Chloride 95 L (96-108) mmol/L Carbon Dioxide 24 (22-29) mmol/L Anion Gap 21 H (12-20) BUN 21 H (9-16) mg/dL Creatinine 0.93 (0.5-1.4) mg/dL Estim Creat Clear Calc 50.5 Estimated GFR > 60 Random Glucose 134 H (60-115) mg/dL Lactic Acid 3.8 H* (0.5-2.0) mmol/L Lactic Acid F/U @ 2Hr (0.5-2.0) mmol/L Calcium 9.9 D (8.4-10.2) mg/dL Magnesium 1.2 L* (1.6-2.6) mg/dL Total Bilirubin 0.5 (0.0-1.0) mg/dL AST 45 H (5-37) U/L ALT 12 (0-40) U/L Alkaline Phosphatase 107 (39-117) U/L Troponin I High Sens 5.3 D (<3.5-35.0) ng/L Total Protein 7.7 (6.5-8.0) g/dL Albumin 4.3 (3.5-5.0) g/dL Urine Color Urine Appearance Urine pH (5.0-9.0) Ur Specific Helix (1.005-1.025) Urine Protein (Neg-Trace) mg/dL Urine Glucose (UA) (Negative) mg/dL Urine Ketones (Negative) mg/dL Urine Blood (Negative) Urine Nitrite (Negative) Ur Leukocyte Esterase (Negative) Urine RBC (0-2) /HPF Urine WBC (0-5) /HPF Ur Squamous Epith Cells (0-2) /HPF Urine Bacteria (None Seen) Hyaline Casts (0-2) /LPF COVID-19 (HERSON) Negative (Negative) COVID-19 Clin Com See Note Influenza Type A (MICHELLE) Negative (Negative) Influenza Type B (MICHELLE) Negative (Negative) Influenza A & B Note See Note 05/13/25 05/13/25 Range/Units 19:00 19:42 WBC (4.8-10.8) X10*3/uL RBC (4.60-5.80) X10*6/uL Hgb (14.0-18.0) g/dl Hct (42.0-52.0) % MCV (80.0-98.0) fL MCH (27.0-33.0) pg MCHC (31.0-36.0) g/dl RDW (11.0-16.0) % Plt Count (160-400) X10*3/uL MPV (9.4-12.4) fL Immature Gran % (Auto) (0.0-0.4) % Neut % (Auto) (45-73) % Lymph % (Auto) (20-40) % Hayes % (Auto) (2-11) % Eos % (Auto) (0-4) % Baso % (Auto) (0-2) % Lymph # (Auto) (1.2-4.9) X10*3/uL Hayes # (Auto) (0.1-1.2) X10*3/uL Eos # (Auto) (0.0-0.4) X10*3/uL Baso # (Auto) (0.0-0.2) X10*3/uL Abs Immat Gran (auto) (0.00-0.03) X10*3/uL Absolute Neuts (auto) (2.0-8.3) x10*3/uL Absolute Nucleated RBC (0.0-0.012) X10*3/uL Nucleated RBC % (auto) (0.0-0.2) /100WBC PT (10.9-12.4) SEC INR (0.9-1.1) VBG pH (7.32-7.43) VBG pCO2 mmHg VBG pO2 mmHg VBG HCO3 (22-26) mmol/L VBG O2 Saturation % VBG Base Excess mmol/L Sodium (135-145) mmol/L Potassium (3.3-5.1) mmol/L Chloride (96-108) mmol/L Carbon Dioxide (22-29) mmol/L Anion Gap (12-20) BUN (9-16) mg/dL Creatinine (0.5-1.4) mg/dL Estim Creat Clear Calc Estimated GFR Random Glucose (60-115) mg/dL Lactic Acid (0.5-2.0) mmol/L Lactic Acid F/U @ 2Hr 2.1 H* (0.5-2.0) mmol/L Calcium (8.4-10.2) mg/dL Magnesium (1.6-2.6) mg/dL Total Bilirubin (0.0-1.0) mg/dL AST (5-37) U/L ALT (0-40) U/L Alkaline Phosphatase (39-117) U/L Troponin I High Sens (<3.5-35.0) ng/L Total Protein (6.5-8.0) g/dL Albumin (3.5-5.0) g/dL Urine Color Yellow Urine Appearance Clear Urine pH 5.0 (5.0-9.0) Ur Specific Helix >= 1.030 H (1.005-1.025) Urine Protein 30 (1+) H (Neg-Trace) mg/dL Urine Glucose (UA) >=1000 H (Negative) mg/dL Urine Ketones Negative (Negative) mg/dL Urine Blood Small (1+) H (Negative) Urine Nitrite Positive H (Negative) Ur Leukocyte Esterase Small (1+) H (Negative) Urine RBC 0-2 (0-2) /HPF Urine WBC 21-50 H (0-5) /HPF Ur Squamous Epith Cells 3-5 (0-2) /HPF Urine Bacteria Trace (None Seen) Hyaline Casts 3-5 (0-2) /LPF COVID-19 ([facility]) (Negative) COVID-19 Clin Com Influenza Type A (MICHELLE) (Negative) Influenza Type B (MICHELLE) (Negative) Influenza A & B Note Critical Care Time Critical Care Time Critical Care Time: Yes Total Critical Care Time: 35 Attestation: The patient was critically ill with a high probability of imminent or life-threatening deterioration. ?I spent greater than 30 minutes of discontinuous time evaluating the patient, delivering critical care at the bedside, discussing evaluating data with consultants. ?Critical care time does not include time spent performing separately billable procedures or teaching. ?Time spent performing critical care with 35 minutes. Discharge Plan Discharge Clinical Impression: Urinary tract infection with fever Patient Disposition: Admitted As Inpatient Print Language: Cypriot
[2025-05-13 16:30] LABS: MANUAL DIFF FLAG NO
[2025-05-13 16:46] LABS: Venous Blood Gas Refer to POC result
[2025-05-13 16:48] LABS: VBG HCO3 22 mmol/L (22-26); VBG O2 % Saturation 88.0 %
[2025-05-13 16:50] LABS: INTERNATIONAL NORM RATIO 1.3 (0.9-1.1); Prothrombin Time 14.4 SEC (10.9-12.4)
[2025-05-13 16:51] LABS: Alanine Aminotransferase 12 U/L (0-40); Albumin Level 4.3 g/dL (3.5-5.0); Alkaline Phosphatase 107 U/L (39-117); Anion Gap 21 (12-20); Aspartate Amino Transferase 45 U/L (5-37); Blood Urea Nitrogen 21 mg/dL (9-16); Calcium 9.9 mg/dL (8.4-10.2); Carbon Dioxide 24 mmol/L (22-29); Chloride 95 mmol/L (96-108); Creatinine Clr Calc Pharmacy 50.5; Estimated Glomerular Filt Rate > 60; Magnesium 1.2 mg/dL (1.6-2.6); Potassium 4.5 mmol/L (3.3-5.1); Sodium 135 mmol/L (135-145); Total Protein 7.7 g/dL (6.5-8.0)
[2025-05-13 16:52] LABS: Hematocrit 41.2 % (42.0-52.0); Hemoglobin 14.0 g/dl (14.0-18.0); Imm Gran Abs Auto 0.11 X10*3/uL (0.00-0.03); Imm Gran Pct Auto 1.5 % (0.0-0.4); Lymphocytes Absolute Auto 0.6 X10*3/uL (1.2-4.9); Mean Corpuscular HGB Conc 34.0 g/dl (31.0-36.0); Mean Corpuscular Hemoglobin 28.5 pg (27.0-33.0); Mean Corpuscular Volume 83.9 fL (80.0-98.0); NRBC Abs Auto 0.000 X10*3/uL (0.0-0.012); NRBC Pct Auto 0.0 /100WBC (0.0-0.2); Platelet Count 273 X10*3/uL (160-400); Red Blood Count 4.91 X10*6/uL (4.60-5.80); White Blood Count 7.3 X10*3/uL (4.8-10.8)
[2025-05-13 16:55] LABS: Troponin-I High Sensitivity 5.3 ng/L (<3.5-35.0)
[2025-05-13 17:01] LABS: COVID-19 Test Negative (Negative); IDNOW Serial# 08D9AD1C; IDNOW Serial# 58CA691E; Influenza B2 Negative (Negative)
--- OUTSIDE RECORDS SUMMARY | 2025-05-13 17:23 | XMS_ITS | Clinical Summary ---
Author Organization [facility] Address [address] [place] [address] Phone Care Team Providers Care Residential Assistant Name Role Phone Unavailable Primary Care Provider Unavailabl e Encounters Date Type Department Care Team Description 03/07/2025 12:57 PM EDT - 03/07/2025 11:59 PM EDT Hospital Encounter [facility] PET Scan [address] [place] [address] Malignant neoplasm of unspecified part [...] unspecified part of unspecified bronchus or lung ([facility] V24, [facility] V28) from Last 3 Months [...] Signed Date: 03/09/2025 14:05 ET Workstation ID: [id number] Transcribed By: Self Edit Transcribed Date: 03/09/2025 [...] Signed Date: 03/09/2025 14:05 ET Workstation ID: [id number] Transcribed By: Self Edit Transcribed Date: 03/09/2025 13:53 ET Tabatha Quintero APN IMG NM PROCEDURES Final Re sult from Last 3 Months Insurance [address] [place] [id number] [place] [address]
--- OUTSIDE RECORDS SUMMARY | 2025-05-13 17:23 | XMS_ITS | Encounter Summary ---
Author Organization [employer] Address [address] [facility] [address] [place] [address] Care Team Providers Care Engineering Drawings Checker Name Role Phone [place] [facility] Primary Care Provider [phone] Reason for Visit * Reason Comments Med Refill Encounter Details Date Type Department Care Team ([facility] Contact Info) Description 07/16/2024 Refill [facility] MEDICINE [address], [place] [phone] [place] [facility] [address] [place] [address] Type 2 diabetes mellitus with hyperglycemia, without long-term current use of insulin ([facility]) Social [...] Care Team (Late st Contact Info) Description 05/22/2025 10:45 AM EST Office Visit [facility] MEDICINE [address] [place] [address] Swati Kan MD [address] [place] [address] 09/10/2025 2:00 PM EST Office Visit [facility] ADULT DENTAL [address] [place] [address] Nusrat Lynch [address] [place] [address] documented as of this encounter Visit Diagnoses Diagnosis Type 2 diabetes mellitus with hyperglycemia, without long-term current use of insulin (HCC) documented in this encounter Additional Health Concerns Assessment Noted Time PHQ-9 Depression Total Score: 0 07/05/20 24 11:25 AM EST documented as of this encounter Care Teams Engineering Drawings Checker Relationship Specialty Start Date End Date Abbi Saha FNP [address] [place] [id number] PCP - General Family Medicine 04/01/23 Noemi GARCIA 05/08/24 documented as of this encounter
--- OUTSIDE RECORDS SUMMARY | 2025-05-13 17:23 | XMS_ITS | Encounter Summary ---
Author Organization [employer] Address [address] [facility] [address] [place] [address] Care Team Providers Care Rn Field Name Role Phone [facility] Primary Care Provider [phone] Encounter Details Date Type Department Care Team ([facility] st Contact Info) Description 08/11/2023 Orders Only [facility] MEDICINE [address] [place], [place] [phone] [facility] [address] [place], [place] [phone] Sensorineural hearing loss (SNHL) of both ears; Lower urinary tract symptoms (LUTS); Gait instability; Type 2 diabetes mellitus with hyperglycemia, without long-term current use of insulin ([facility]); Hammertoes of both feet; Diminished pulses in [...] Description 05/22/2025 10:45 AM EST Office Visit [facility] MEDICINE [address] [place] [address] Swati Kan MD [address] [place], [place] [phone] 09/10/2025 2:00 PM EST Office Visit [facility] ADULT DENTAL [address] [place], [place] [phone] Nusrat Lynch [address] [place] [address] documented as of this encounter Procedures Procedure Name Priority Date/Time Associated Diagnosis Comments AMB REFERRAL TO ENT Routine 10/14/2023 Sensorineural hearing loss (SNHL) of both ears documented in this encounter Results * Referral to ENT (10/14/2023) [facility] OUT[facility] REFERRAL ORDERABLE S Final Result documented [...] documented as of this encounter Care Teams Rn Field Relationship Specialty Start Date End Date Abbi Saha FNP [address] [place] [id number] PCP - General Family Medicine 04/01/23 Noemi Felicia 05/08/24 documented as of this encounter
--- OUTSIDE RECORDS SUMMARY | 2025-05-13 17:23 | XMS_ITS | Clinical Summary ---
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 06/06/20 21 Active Lidocaine 4 % patch Apply to the affected area up to 3 times daily as needed Active sildenafil (Viagra) 100 MG tablet Take 1 tablet by mouth at bed time. Active Blood Glucose Monitoring Suppl (Elegant Service Verio) w/Device kitIndications: Type 2 diabetes mellitus [...] tablet 5 mg. 05/06/20 24 Active Creon 19719-10266 units capsule 2 capsules. 04/19/20 24 Active [...] 25 026 Active Lancets (OneTouch Delica Plus [id number]) miscIndications :Elevated blood sugar TEST BLOOD SUGAR TWICE DAILY 100 each 11 10/07/19 25 Active Farxiga 10 MGIndications:T ype 2 diabetes mellitus with other specified complication, unspecified whether retirement insulin use (HCC) TAKE 1 TABLET BY [...] dx of metastatic NSCLC 04/2024.-- Presented to [facility] ED w1 with acute SOB. CT chest [...] metastatic disease. PET-CT performed 05/30/24 at [facility] showed FDG avid loculated left-sided pleural [...] maintenance 10/16/2022 Overview (10/25/2022): Healthcare Maintenance: C-scope: [facility] 2021, needs records PSA: Per urology HCV Screen: Neg 09/10 HIV Screen: Neg 09/10 Immunizations: UTD Weight loss 09/17/2022 Diabetes 09/11/2022 Overview (02/25/2024): Farxiga 10mg daily Metformin 1000mg b.i.d Januvia 25 mg daily Foot Exam: Risk 0; followed by podiatry (chadwick) Eye Exam: [facility] Eye care Statin: Yes ASA: [...] Repeat labs today Has upcoming appointment for [facility] eye care Assessment & Plan [...] Plan (05/19/2023 11:14 AM EDT): Compliant with [employer] agreement Only using tramadol 1x/week due to concern re addiction Advised patient OK to take tramadol at bedtime nightly if pain interfering with sleep Continue acetaminophen PRN during day Continue lidocaine patch Continue topical diclofenac gel Continue acupuncture PT referral for general gait instability Assessment & Plan (10/25/2022 1:09 PM EDT): Will refer to [employer]SEKEEPER RN Hypertensive disorder 04/12/2017 Overview (02/25/2024): Losartan [...] Encounters Date Type Department Care Team Description 05/13/2025 Orders Only GENERIC EXTERNAL DATA DEPARTMENT Provider, Generic External Data 05/10/2025 Patient Outreach [facility] MEDICINE [address] [place] [address] Abbi Saha FNP Transition Of Care (Tcm) (HDF- scheduled with the Direct Line ) 04/22/2025 Orders Only [facility] External Provider, [facility] 04/21/2025 Orders Only GENERIC EXTERNAL DATA DEPARTMENT Provider, [facility] External Data 04/19/2025 Refill [facility] [address] [place] [address] Abbi Saha FNP Other insomnia; Dyspepsia 04/04/2025 Orders Only [facility] External Provider, [facility] 03/22/2025 Telephone [facility] [address] [place] [address] Abbi Saha FNP chart prep 02/28/2025 Refill [facility] [address] [place] [address] Abbi Saha FNP Other insomnia from Last 3 Months Immunizations Immunization Administration [...] is your housing situation today? I have elzadamaris mosley 10/14/[address] you [...] Description 05/22/2025 10:45 AM EST Office Visit [facility] MEDICINE [address] [place] [address] Swati Kan MD [address] [place] [address] 09/10/2025 2:00 PM EST Office Visit [facility] ADULT DENTAL [address] [place] [address] Nusrat Lynch [address] [place] [address] Health Maintenance Due Date Last Done Comments [...] Procedure Name Priority Date/Time Associated Diagnosis Comments VENOUS BLOOD GAS Routine 05/13/2025 4:43 PM EDT PROTHROMBIN TIME-INR Routine 05/13/2025 4:35 PM EDT HIGH SENSITIVITY TROPONIN I Routine 05/13/2025 4:24 PM EDT CBC WITH AUTO DIFFERENTIAL Routine 05/13/2025 4:24 PM EDT MAGNESIUM Routine 05/13/2025 4:24 PM EDT COMPREHENSIVE METABOLIC PANEL Routine 05/13/2025 4:24 PM EDT LACTIC ACID Routine 05/13/2025 4:24 PM EDT US SCROTUM Routine 04/22/2025 9:42 AM EDT URINALYSIS, COMPLETE, WITH REFLEX TO CULTURE Routine 04/21/2025 11:48 PM EDT LACTIC ACID LAB USE ONLY Routine 04/21/2025 11:[address] ABDOMEN PELVIS W CONTRAST Routine 04/21/2025 11:28 PM EDT CTA CHEST PE PROTOCAL Routine 04/21/2025 11:27 PM EDT XR CHEST 1 VIEW Routine 04/21/2025 10:46 PM EDT US SCROTUM Routine 04/05/2025 7:37 AM EDT URINALYSIS, COMPLETE, WITH REFLEX TO CULTURE Routine 04/04/2025 12:15 PM EDT URINALYSIS WITH REFLEX MICROSCOPIC Routine 04/04/2025 12:[address] HEAD WO CONTRAST Routine 04/04/2025 1 1:[address] CERVICAL SPINE WO CONTRAST Routine 04/04/2025 11:35 AM EDT XR CHEST 2 VIEWS Routine 04/04/2025 11:2 4 AM EDT POCT GLYCATED HEMOGLOBIN, TOTAL Routine [...] hyperglycemia, without long-term current use of insulin ([facility]) HEPATITIS C AB W/REFL TO HCV RNA, QN, PCR Routine 09/11/2022 3:09 PM EST Healthcare maintenance from Last 3 Months or Most Recently Relevant to Health Maintenance Results * (ABNORMAL) VENOUS BLOOD GAS (05/13/2025 4:43 PM EDT) VBG pH 7.52(H) 7.32 - 7.43 [facility] Comment:METER #: [id number] additional_comment: Cb n-manla VBG PCO2 26 mmHg [facility] Comment:METER #: [id number] additional_comment: Cb n-manla VBG PO2 58 mmHg [facility] Comment:METER #: [id number] additional_comment: Cb n-manla VBG Base Excess 0.6 mmol/L [facility] Comment:METER #: [id number] additional_comment: Cb n-manla VBG HCO3 22 22 - 26 mmol/L [facility] Comment:METER #: [id number] additional_comment: Sharif watt O2 Sat, [place] 88.0 % [facility] Comment:METER #: [id number] additional_comment: Sharif watt 05/13/2025 4:43 PM EDT 05/13/2025 4:47 PM EDT Generic External Data Provider LAB BLOOD ORDERAB LES Final Result Performing Organization Address City/[facility] Co de Phone Number [facility] [address] [place] [phone] * (ABNORMAL) Prothrombin Time-INR (05/13/2025 4:35 PM EDT) Prothrombin Time 14.4(H) 10.9 - 12.4 SEC [facility] INTERNATIONAL NORM RATIO 1.3(H) 0.9 - 1.1 [facility] Comment:INTERNATIONAL NORMAL IZED RATIO (INR) REFERENCE RANGES Reference RangeFor patients not on anticoagulant therapy: 0.9 - 1.1INR ranges for oral anticoagulanttherapy:For prevention and treatment of venous thrombosis and pulmonary embolism: 2.0 - 3.0For acute myocardial infarction with aspirin therapy: 2.0 - 3.0For acute myocardial infarction without aspirin therapy: 3.0 - 4.0For patients with mechanical prosthetic heart valves: 2.5 - 3.5 05/13/2025 4:35 PM EDT 05/13/2025 4:43 PM EDT us Generic External Data Provider LAB BLOOD ORDERAB LES Final Result Performing Organization Address [facility] Co de Phone Number [facility] [address] [place] [phone] * High Sensitivity Troponin I (05/13/2025 4:24 PM EDT) TROPONIN I HIGH SENSITIVITY 5.3 <3.5 - 35.0 ng/L [facility] Comment:The Vargas high sens itivity Troponin-I results should beused in conjunction with other diagnostic information suchas ECG, clinical observations and information, and patientsymptoms to aid in the diagnosis of IL. 05/13/2025 4:24 PM EDT 05/13/2025 4:28 PM EDT us Generic External Data Provider LAB BLOOD ORDERAB LES Final Result [facility] [address] [place] [address] [phone] * (ABNORMAL) CBC auto differential (05/13/2025 4:24 PM EDT) White Blood Count 7.3 4.8 - 10.8 X10*3/uL [facility] Red Blood Count 4.91 4.60 - 5.80 X10*6/uL [facility] Hemoglobin 14.0 14.0 - 18.0 g/dl [facility] Hematocrit 41.2(L) 42.0 - 52.0 % [facility] Mean Corpuscular Volume 83.9 80.0 - 98.0 fL [facility] Mean Corpuscular Hemoglobin 28.5 27.0 - 33.0 pg [facility] Mean Corpuscular HGB Conc 34.0 31.0 - 36.0 g/dl [facility] Red Cell Distribution Width 13.5 11.0 - 16.0 % [facility] Platelet Count 273 160 - 400 X10*3/uL [facility] Mean Platelet Volume 8.6(L) 9.4 - 12.4 fL [facility] Neutrophils Percent Auto 80.9(H) 45 - 73 % [facility] Imm Gran Pct Auto 1.5(H) 0.0 - 0.4 % [facility] Lymphocytes Percent Auto 8.1(L) 20 - 40 % [facility] Monocytes Percent Auto 8.8 2 - 11 % [facility] Eosinophils Percent Auto 0.1 0 - 4 % [facility] Basophils Percent Auto 0.6 0 - 2 % [facility] NRBC Pct Auto 0.0 0.0 - 0.2 /100WBC [facility] Neutrophils Absolute Auto 5.9 2.0 - 8.3 x10*3/uL [facility] Imm Gran Abs Auto 0.11(H) 0.00 - 0.03 X10*3/uL [facility] Lymphocytes Absolute Auto 0.6(L) 1.2 - 4.9 X10*3/uL [facility] Monocytes Absolute Auto 0.6 0.1 - 1.2 X10*3/uL [facility] Eosinophils Absolute Auto 0.0 0.0 - 0.4 X10*3/uL [facility] Basophils Absolute Auto 0.0 0.0 - 0.2 X10*3/uL [facility] NRBC Abs Auto 0.000 0.0 - 0.012 X10*3/uL [facility] 05/13/2025 4:24 PM EDT 05/13/2025 4:28 PM EDT Generic External Data Provider LAB BLOOD ORDERAB LES Final Result Performing Organization Address [facility] de Phone Number [facility] [address] [place] [phone] * (ABNORMAL) Magnesium (05/13/2025 4:24 PM EDT) Magnesium 1.2(LL) 1.6 - 2.6 mg/dL [facility] Comment:Critical value for t est(s): MG Results called to and readback by:GERBER Person calling: ROSESF Date:05-13-25 Time:1649 05/13/2025 4:24 PM EDT 05/13/2025 4:28 PM EDT Generic External Data Provider LAB BLOOD ORDERAB LES Final Result Performing Organization Address [facility] Co de Phone Number [facility] [address] [place] [phone] * (ABNORMAL) Lactic Acid (05/13/2025 4:24 PM EDT) Lactic Acid 3.8(HH) 0.5 - 2.0 mmol/L [facility] Comment:Critical value for t est(s): LA Results called to and readback by:GERBER Person calling:ROSESF Date: [birth year]-51Ciee:1648 05/13/2025 4:24 PM EDT 05/13/2025 4:28 PM EDT us Generic External Data Provider LAB BLOOD ORDERAB LES Final Result [facility] [address] [place] [phone] [phone] * (ABNORMAL) Comprehensive Metabolic Panel (05/13/2025 4:24 PM EDT) Sodium 135 135 - 145 mmol/L [facility] Potassium 4.5 3.3 - 5.1 mmol/L [facility] Chloride 95(L) 96 - 108 mmol/L [facility] Carbon Dioxide 24 22 - 29 mmol/L [facility] Anion Gap 21(H) 12 - 20 [facility] Urea Nitrogen (BUN) 21(H) 9 - 16 mg/dL [facility] Creatinine, Serum 0.93 0.5 - 1.4 mg/dL [facility] Creatinine Clr Calc Pharmacy 50.5 [facility] Comment:eGFR (calculated fro m the MDRD study equation) and eCrCl(calculated from the Cockcroft-Gault equation) are based ondifferent parameters and may not yield comparable results.If eCrCl result is absurd, please check patient'sheight/weight. Estimated Glomerular Filt Rate >60 [facility] Comment:Chronic Kidney Disea se: Estimated GFR < 60 mL/min/1.05t5Ppsnie Kidney Disease: Estimated GFR < 15 mL/min/1.73m2 Glucose 134(H) 60 - 115 mg/dL [facility] Calcium 9.9 8.4 - 10.2 mg/dL [facility] Bilirubin, Total 0.5 0.0 - 1.0 mg/dL [facility] Aspartate Amino Transferase 45(H) 5 - 37 U/L [facility] Alanine Aminotransferase 12 0 - 40 U/L [facility] Total Protein 7.7 6.5 - 8.0 g/dL [facility] Albumin Level 4.3 3.5 - 5.0 g/dL [facility] Alkaline Phosphatase 107 39 - 117 U/L [facility] 05/13/2025 4:24 PM EDT 05/13/2025 4:28 PM EDT us Generic External Data Provider LAB BLOOD ORDERAB LES Final Result Performing Organization Address City/State/[facility] Co de Phone Number [facility] [address] [place] [phone] * US Scrotum (04/22/2025 9:42 AM EDT) Only the most recent of2 resultswithin the time period is included. Anatomical Region Laterality Modality Body Ultrasound 04/22/2025 9:42 AM EDT Narrative 04/22/2025 9:44 AM EDT [address] [address] Ultrasound Report Signed Patient: Lei Drew MR#: [id number] : 1945 Acct:[id number] Age/Sex: 79 / M ADM Date: 04/22/25 Loc: [facility]: Juliano Akbar MD [facility]ing Phys[facility] Date of Service: 04/22/25 Procedure(s): US scrotum Accession Number(s): [id number] cc: [facility]; [facility] Reason for Exam: sepsis, hydrocele suspected CLINICAL HISTORY: sepsis, hydrocele suspected --- Additional Notes or Special Instructions: looking for source of infection, swelling more than usual US Scrotum with Doppler Comparison: US/SR - US SCROTUM - 04/05/25 07:36 EDT Findings: Right testicle normal echotexture, 3.5 x 3.3 x 3.5 cm. Left testicle, 4.2 x 2.4 x 3.0 cm. Echotexture unremarkable other than a 0.8 cm cyst. Normal Doppler color flow of both testicles. Epididymides are not visualized. Large complex hydrocele measuring up to 7.5 x 13.3 x 8.7 cm. No definite varicocele. IMPRESSION: 1. Large complex hydrocele. 2. No evidence of torsion or epididymo-orchitis. 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 Operator: Procedure Note Donotuseinterpreter, Image - 04/22/2025 [place] [address] Ultrasound Report Signed Patient: Scottie Drew#: [id number] : 1945cct:[id number] Age/Sex: 79 / MADM Date: 04/22/25 [facility]: [facility]: Juliano Akbar MD Ordering Physician: Patricia Wallis [facility] Date of Service: 04/22/25 Procedure(s): US scrotum Accession Number(s): [id number] cc: Patricia Wallis [facility]; [facility] Reason for Exam: sepsis, hydrocele suspected CLINICAL HISTORY: sepsis, hydrocele suspected --- Additional Notes orSpecial Instructions: looking for source of infection, swelling more than usual US Scrotum with Doppler Comparison: US/SR - US SCROTUM - 04/05/25 07:36 EDT Findings: Right testicle normal echotexture, 3.5 x 3.3 x 3.5 cm. Left testicle, 4.2 x 2.4 x 3.0 cm. Echotexture unremarkable other than a 0.8 cm cyst. Normal Doppler color flow of both testicles. Epididymides are not visualized. Large complex hydrocele measuring up to 7.5 x 13.3 x 8.7 cm. No definite varicocele. IMPRESSION: 1. Large complex hydrocele. 2. No evidence of torsion or epididymo-orchitis. 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 Operator: us [facility] External Provider IMG US PROCEDURES Edited Result - Final * (ABNORMAL) Urinalysis, Complete, with Reflex to Culture (04/21/2025 11:48 PM EDT) Only the most recent of2 resultswithin the time period is included. Color Urine Yellow [facility] Appearance Urine Clear [facility] PH 7.0 5.0 - 9.0 [facility] Glucose Urine UA >=1000(A) Negative mg/dL [facility] Urine Blood Negative Negative [facility] Specific Van - Urine >=1.030(H) 1.005 - 1.025 [facility] Urine Protein Trace Neg-Trace mg/dL [facility] Urine Ketones Negative Negative mg/dL [facility] Nitrite Urine Negative Negative [facility] Leukocyte Esterase Urine Trace(A) Negative [facility] RBC Urine 0-2 0 - 2 /HPF [facility] Urine WBC 6-10(A) 0 - 5 /HPF [facility] Urine Squamous Epithelial Cell 0-2 0 - 2 /HPF [facility] Urine Bacteria 4+ None Seen [facility] Hyaline Casts, Urine 0-2 0 - 2 /LPF [facility] 04/21/2025 11:4 8 PM EDT 04/21/2025 11:51 PM EDT Narrative [facility] - 04/22/2025 12:00 AM EDT [id number], Catheterized Generic External Data Provider LAB URINE ORDERAB LES Final Result Performing Organization Address [facility] de Phone Number [facility] [address] [place] [phone] * (ABNORMAL) Lactic Acid (04/21/2025 11:45 PM EDT) Lactic Acid 2.1(HH) 0.5 - 2.0 mmol/L [facility] Comment:Critical value for t est(s): LACTIC Results called to linn back by: LON Person calling: ROBINA Date: 04/22/25Time: 0017 04/21/2025 11:4 5 PM EDT 04/21/2025 11:51 PM EDT Generic External Data Provider LAB BLOOD ORDERAB LES Final Result Performing Organization Address [facility] de Phone Number [facility] [address] [place] [phone] * CT Abdomen Pelvis w/ Contrast (04/21/2025 11:28 PM EDT) Anatomical Region Laterality Modality Body, Pelvis, Abdomen Computed T omography 04/21/2025 11:2 8 PM EDT Narrative 04/21/2025 11:29 PM EDT [address] [address] [address] Scan Report Signed Patient: Lei Drew MR#: [id number] : 1945 Acct:[id number] Age/Sex: 79 / M ADM Date: 04/21/25 Loc: .ED Attending Dr: Ordering Physician: uBffy Unger MD Date of Service: 04/21/25 Procedure(s): CT abdomen pelvis w IV con Accession Number(s): [id number] cc: Buffy Unger MD; [facility] Report Number: [id number]: Total DLP = 0.00 mGy-cm Reason for Exam: sepsis, unclear source CLINICAL HISTORY: sepsis, unclear source CT abdomen and pelvis with contrast Comparison: 04/29/2024 Findings: Chest findings in chest CT report. Degenerative change spine and hips. No acute bony abnormalities. Liver and spleen within normal limits. Pancreas and adrenal glands unremarkable. Gallbladder is within normal limits. No significant focal renal abnormalities. Renal cysts, no stones or hydronephrosis. Abdominal aorta is normal in caliber. No free fluid or adenopathy in the pelvis. No diverticulitis. Appendix unremarkable. Large amount of stool in colon. Small caliber rectal tube. Impression: No acute process This document has been electronically signed by: Vinayak Salguero MD on 04/21/2025 23:28:58 Dictated By: Vinayak Salguero MD Signed By: <Electronically signed by Vinayak Salguero MD in OV> 04/21/252328 DD/ 27 TD/TT: 04/21/252327 Fireboat Operator: Procedure Note Donotuseinterpreter, Image - 04/21/[address] [place] [address] [address] Scan Report Signed Patient: Scottie Drew#: [id number] : [birth year]Acct:[id number] Age/Sex: 79 / MADM Date: 04/21/25 Loc: HO.ED Attending Dr: Ordering Physician: Buffy Unger MD Date of Service: 04/21/25 Procedure(s): CT abdomen pelvis w IV con Accession Number(s): [id number] cc: Buffy Unger MD; [facility] Report Number: [id number]: Total DLP = 0.00 mGy-cm Reason for Exam: sepsis, unclear source CLINICAL HISTORY: sepsis, unclear source CT abdomen and pelvis with contrast Comparison: 04/29/2024 Findings: Chest findings in chest CT report. Degenerative change spine and hips. No acute bony abnormalities. Liver and spleen within normal limits. Pancreas and adrenal glands unremarkable. Gallbladder is within normal limits. No significant focal renal abnormalities. Renal cysts, no stones or hydronephrosis. Abdominal aorta is normal in caliber. No free fluid or adenopathy in the pelvis. No diverticulitis. Appendix unremarkable. Large amount of stool in colon. Small caliber rectal tube. Impression: No acute process This document has been electronically signed by: Vinayak Salguero MD on 04/21/2025 23:28:58 Dictated By: Vinayak Salguero MD Signed By: <Electronically signed by Vinayak Salguero MD in OV> 04/21/252328 DD/ 27 TD/TT: 04/21/252327 Fireboat Operator: [facility] External Provider IMG CT PROCEDURES Edited Result - Final * CTA Chest PE Protocal (04/21/2025 11:27 PM EDT) Anatomical Region Laterality Modality Body, Chest Computed Tomogra phy 04/21/2025 11:2 7 PM EDT Narrative 04/21/2025 11:28 PM EDT [place] [address] CT Scan Report Signed Patient: Lei Drew MR#: [id number] : 1945 Acct:[id number] Age/Sex: 79 / M ADM Date: 04/21/25 Loc: .ED Attending Dr: Ordering Physician: Buffy Unger MD Date of Service: 04/21/25 Procedure(s): CT angio chest PE protocol Accession Number(s): [id number] cc: Buffy Unger MD; [facility] Report Number: [id number]: Total DLP = 0.00 mGy-cm Reason for Exam: sob, tachycarcia, on chemo for lung CA CLINICAL HISTORY: sob, tachycarcia, on chemo for lung CA CT angiogram chest/pulmonary arteries with contrast Multiplanar reconstructions and MIPS Comparison: 01/22/2025 Findings: No filling defects are noted to suggest pulmonary embolus. Main pulmonary artery normal in caliber. Thoracic aorta normal caliber without dissection. Heart size normal. Great vessel origins patent. No coronary calcifications. Minimal residual left pleural effusion. Minimal posterior left lower lobe atelectasis. No other significant parenchymal abnormality. No significant mediastinal or hilar adenopathy. No acute bony abnormality noted. Impression: No evidence of pulmonary embolus This document has been electronically signed by: Vinayak Salguero MD on 04/21/2025 23:27:37 Dictated By: Vinayak Salguero MD Signed By: <Electronically signed by Vinayak Salguero MD in OV> 04/21/252327 DD/ 26 TD/TT: 04/21/252326 Fireboat Operator: Procedure Note Donotuseinterpreter, Image - 04/21/[address] [address] [address] Scan Report Signed Patient: Scottie Drew#: [id number] : 1945cct:[id number] Age/Sex: 79 / MADM Date: 04/21/25 Loc: .ED Attending Dr: Ordering Physician: Buffy Unger MD Date of Service: 04/21/25 Procedure(s): CT angio chest PE protocol Accession Number(s): [id number] cc: Buffy Unger MD; [facility] Report Number: [id number]: Total DLP = 0.00 mGy-cm Reason for Exam: sob, tachycarcia, on chemo for lung CA CLINICAL HISTORY: sob, tachycarcia, on chemo for lung CA CT angiogram chest/pulmonary arteries with contrast Multiplanar reconstructions and MIPS Comparison: 01/22/2025 Findings: No filling defects are noted to suggest pulmonary embolus. Main pulmonary artery normal in caliber. Thoracic aorta normal caliber without dissection. Heart size normal. Great vessel origins patent. No coronary calcifications. Minimal residual left pleural effusion. Minimal posterior left lower lobe atelectasis. No other significant parenchymal abnormality. No significant mediastinal or hilar adenopathy. No acute bony abnormality noted. Impression: No evidence of pulmonary embolus This document has been electronically signed by: Vinayak Salguero MD on 04/21/2025 23:27:37 Dictated By: Vinayak Salguero MD Signed By: <Electronically signed by Vinayak Salguero MD in OV> 04/21/252327 DD/ 26 TD/TT: 04/21/257 Fireboat Operator: us [facility] External Provider IMG CT PROCEDURES Edited Result - Final * XR Chest 1 View (04/21/2025 10:46 PM EDT) Anatomical Region Laterality Modality Chest Radiographic Brianna ging 04/21/2025 10:4 6 PM EDT Narrative 04/21/2025 10:47 PM EDT [address] [address] XRay Report Signed Patient: Lei Drew MR#: [id number] : 1945 Acct:[id number] Age/Sex: 79 / M ADM Date: 04/21/25 [facility]: Ordering Physician: Buffy Unger MD Date of Service: 04/21/25 Procedure(s): XR chest 1V Accession Number(s): [id number] cc: Buffy Unger MD; [facility] Reason for Exam: sob CLINICAL HISTORY: sob 1 view chest x-ray Comparison: 04/04/2025 Findings: Lungs are clear without acute infiltrates. No pneumothorax. Heart size normal. No acute bony abnormalities. Impression: No acute processes This document has been electronically signed by: Vinayak Salguero MD on 04/21/2025 22:46:33 Dictated By: Vinayak Salguero MD Signed By: <Electronically signed by Vinayak Salguero MD in OV> 04/21/252246 DD/ 45 TD/TT: 04/21/252245 Fireboat Operator: Procedure Note Donotuseinterpreter, Image - 04/21/[address] [address] XRay Report Signed Patient: Jacqui DrewR#: [id number] : 1945cct:[id number] Age/Sex: 79 / MADM Date: 04/21/25 Loc: .ED Attending Dr: Ordering Physician: Buffy Unger MD Date of Service: 04/21/25 Procedure(s): XR chest 1V Accession Number(s): [id number] cc: Bufyf Unger MD; [facility] Reason for Exam: sob CLINICAL HISTORY: sob 1 view chest x-ray Comparison: 04/04/2025 Findings: Lungs are clear without acute infiltrates. No pneumothorax. Heart size normal. No acute bony abnormalities. Impression: No acute processes This document has been electronically signed by: Vinayak Salguero MD on 04/21/2025 22:46:33 Dictated By: Vinayak Salguero MD Signed By: <Electronically signed by Vinayak Salguero MD in OV> 04/21/252246 DD/ 45 TD/TT: 04/21/252245 Fireboat Operator: [facility] External Provider IMG XR PROCEDURES Edited Result - Final * (ABNORMAL) Urinalysis w/reflex microscopic (04/04/2025 12:15 PM EDT) Color Urine Yellow [facility] Appearance Urine Clear [facility] PH 5.5 5.0 - 9.0 [facility] Glucose Urine UA >=1000(A) Negative mg/dL [facility] Urine Blood Negative Negative [facility] Specific Van - Urine >=1.030(H) 1.005 - 1.025 [facility] Urine Protein Negative Neg-Trace mg/dL [facility] Urine Ketones Trace Negative mg/dL [facility] Nitrite Urine Negative Negative [facility] Leukocyte Esterase Urine Negative Negative [facility] 04/04/2025 12:1 5 PM EDT 04/04/2025 12:19 PM EDT Narrative [facility] - 04/04/2025 12:25 PM EDT Urine, Catheterized Generic External Data Provider LAB URINE ORDERAB LES Final Result [facility] [address] [place] [address] [phone] * CT Cervical Spine w/o Contrast (04/04/2025 11:35 AM EDT) Anatomical Region Laterality Modality Spine, C-spine Computed Tomogra phy 04/04/2025 11:3 5 AM EDT Narrative 04/04/2025 12:06 PM EDT [address] [address] [address] Scan Report Signed Patient: Lei Drew MR#: [id number] : 1945 Acct:[id number] Age/Sex: 79 / M ADM Date: 04/04/25 Loc: HO.ED Attending Dr: Ordering Physician: Crescencio Clark MD Date of Service: 04/04/25 Procedure(s): CT cervical spine wo IV con Accession Number(s): [id number] cc: Crescenico Clark MD; [facility] Report Number: [id number]: Total DLP = 268.00 mGy-cm Reason for [...] 04/04/25 1203 DD/ 1135 TD/TT: 04/04/25 1148 Fireboat Operator: Procedure Note Donotuseinterpreter, Image - 04/04/[address] [place] [address] [address] Scan Report Signed Patient: Scottie Drew#: [id number] : 1945cct:[id number] Age/Sex: 79 / MADM Date: 04/04/25 Loc: .ED Attending Dr: Ordering Physician: Crescencio Clark MD Date of Service: 04/04/25 Procedure(s): CT cervical spine wo IV con Accession Number(s): [id number] cc: Crescencio Clark MD; [facility] Report Number: [id number]: Total DLP = 268.00 mGy-cm Reason for [...] 04/04/25 1203 DD/ 1135 TD/TT: 04/04/25 1148 Fireboat Operator: [facility] External Provider IMG CT PROCEDURES Edited Result - Final * CT Head w/o Contrast (04/04/2025 11:35 AM EDT) Anatomical Region Laterality Modality Head, Neck Computed Tomogra phy 04/04/2025 11:3 5 AM EDT Narrative 04/04/2025 12:11 PM EDT [address] [address] [address] Scan Report Signed Patient: Lei Drew MR#: [id number] : 1945 Acct:[id number] Age/Sex: 79 / M ADM Date: 04/04/25 Loc: HO.ED Attending Dr: Ordering Physician: Crescencio Clark MD Date of Service: 04/04/25 Procedure(s): CT head/brain wo IV con Accession Number(s): [id number] cc: Crescencio Clark MD; [facility] Report Number: [id number]: Total DLP = 704.00 mGy-cm Reason for [...] 04/04/25 1209 DD/ 1135 TD/TT: 04/04/25 1148 Fireboat Operator: Procedure Note Donotuseinterpreter, Image - 04/04/[address] [address] [address] Scan Report Signed Patient: Scottie Drew#: [id number] : 1945cct:[id number] Age/Sex: 79 / MADM Date: 04/04/25 Loc: HO.ED Attending Dr: Ordering Physician: Crescencio Clark MD Date of Service: 04/04/25 Procedure(s): CT head/brain wo IV con Accession Number(s): [id number] cc: Crescencio Clark MD; [facility] Report Number: [id number]: Total DLP = 704.00 mGy-cm Reason for [...] 04/04/25 1209 DD/ 1135 TD/TT: 04/04/25 1148 Fireboat Operator: [facility] External Provider IMG CT PROCEDURES Edited Result - Final * XR Chest 2 Views (04/04/2025 11:24 AM EDT) Anatomical Region Laterality Modality Chest Radiographic Brianna ging 04/04/2025 11:2 4 AM EDT Narrative 04/04/2025 11:31 AM EDT [place] [address] XRay Report Signed Patient: Lei Drew MR#: [id number] : 1945 Acct:[id number] Age/Sex: 79 / M ADM Date: 04/04/25 Loc: .ED Attending Dr: Ordering Physician: Patricia Kerr Date of Service: 04/04/25 Procedure(s): XR chest 2V Accession Number(s): [id number] cc: Patricia Kerr; [facility] Reason for Exam: syncope EXAMINATION: XR [...] Mosqueda MD in OV> 04/04/25 1129 DD/ 112 TD/TT: 04/04/25 1124 Fireboat Operator: Procedure Note Donotuseinterpreter, Image - 04/04/2025 [place] [address] XRay Report Signed Patient: Scottie Drew#: [id number] : 1945cct:[id number] Age/Sex: 79 / MADM Date: 04/04/25 Loc: .ED Attending Dr: Ordering Physician: Patricia Kerr Date of Service: 04/04/25 Procedure(s): XR chest 2V Accession Number(s): [id number] cc: Patricia Kerr; [facility] Reason for Exam: syncope EXAMINATION: XR [...] OV> 04/04/25 1129 DD/ 1124 TD/TT: 04/04/25 112 Fireboat Operator: [facility] External Provider IMG XR PROCEDURES Edited Result - Final * (ABNORMAL) POCT HGB A1C (10/25/2024 9:24 AM EDT) Hemoglobin A1C 6.7(A) 4.0 - 6.0 % QC Media Lot # [id number] Lot# Expiration Date Blood 10/25/2024 9:24 AM EDT [facility] [employer] POINT OF CARE TEST ENTER/EDIT ORDERABLES Final Result * Albumin, Random Urine W/Creatinine (05/03/2023 8:36 AM EDT) Creatinine, Urine 54.13 mg/dL [facility] Microalbumin Urine 8.0 mg/L [facility] Microalbum Creatinine Ratio Ur 14.7 <30 ug/mg cr [facility] Comment:Albumin/Creatinine R atio Reference Ranges: Normal: < 30 ug/mg creatinine Microalbuminuria: 30 - 300 ug/mg creatinineClinical Albuminuria: > 300 ug/mg creatinine Urine 05/03/2023 8:36 AM EDT 05/03/2023 11:07 AM EDT [facility] [employer] LAB URINE ORDERABLES Final Re sult [facility] [address] [place] [phone] * Lipid Panel, Standard (05/03/2023 8:36 AM EDT) Triglycerides 83 <150 mg/dL [facility] Comment:Desirable Triglyceri de: less than [...] 190 mg/dL HDL Cholesterol 66 >40 mg/dL [facility] Comment:Desirable HDL: great er than 40 mg/dL Note: This HDL assay may give artificially low results in patients with liver disease. Blood Venous blood specimen / Unknown 05/03/2023 8:36 AM EDT 05/03/2023 11:13 AM EDT [facility] LAB BLOOD ORDERABLES Final Re sult [facility] [address] [place] [phone] * Hepatitis C Antibody with Reflex to HCV, RNA, Quantitative, Real-Time PCR (09/11/2022 3:09 PM EST) Hepatitis C Antibody NON-REACT VAHID NON-REACT VAHID [facility] [place] [facility] Index <0.02 <1.00 [facility] [place] [facility] Comment: HCV antibody was non-reactive. There is no laboratory evidence of HCV infection. In most cases, no further action is required. However, if recent HCV exposure is suspected, a test for HCV RNA (test code 45118) is suggested. For additional information please refer to http://education.Adatao/faq/DKL58s5 (This link is being provided for informational/ educational purposes only.) Blood Venous blood specimen / Unknown 09/11/2022 3:09 PM EST 09/11/2022 3:09 PM EST Narrative [facility] - 09/14/2022 1:32 PM EST FASTING:NO FASTING: NO [facility] [employer] LAB BLOOD ORDERABLES Final Re sult [facility] [address] [place] [address] [facility] [address], ([address]) [place] [address] from Last 3 Months or Most Recently Relevant to Health Maintenance Insurance [facility] Care Teams Utility Helicopter Repairer Relationship Specialty Start Date End Date AustinAbbi [employer] [address] [place] [phone] PCP - General Family Medicine 04/01/23 Noemi GARCIA 05/08/24
--- OUTSIDE RECORDS SUMMARY | 2025-05-13 17:23 | XMS_ITS | Encounter Summary ---
Author Organization [employer] Address [address] [facility] 7[address] [place] [address] Care Team Providers Care Party Coordinator Name Role Phone Abbi Saha [facility] Primary Care Provider [phone] Encounter Details Date Type Department Care Team ([facility] st Contact Info) Description 05/13/2025 Orders Only GENERIC EXTERNAL DATA [...] Description 05/22/2025 10:45 AM EST Office Visit [facility] MEDICINE [address] [place] [address] Swati Kan MD [address] [place] [address] 09/10/2025 2:00 PM EST Office Visit [facility] ADULT DENTAL [address] [place] [address] Nusrat Lynch [address] [place] [address] documented as of this encounter Procedures Procedure Name Priority Date/Time Associated Diagnosis Comments VENOUS BLOOD GAS Routine 05/13/2025 4:43 PM EDT PROTHROMBIN TIME-INR Routine 05/13/2025 4:35 PM EDT HIGH SENSITIVITY TROPONIN I Routine 05/13/2025 4:24 PM EDT CBC WITH AUTO DIFFERENTIAL Routine 05/13/2025 4:24 PM EDT MAGNESIUM Routine 05/13/2025 4:24 PM EDT LACTIC ACID Routine 05/13/2025 4:24 PM EDT COMPREHENSIVE METABOLIC PANEL Routine 05/13/2025 4:24 PM EDT documented in this encounter Results * (ABNORMAL) VENOUS BLOOD GAS (05/13/2025 4:43 PM EDT) VBG pH 7.52(H) 7.32 - 7.43 [facility] Comment:METER #: [id number] additional_comment: Cb n-manla VBG PCO2 26 mmHg [facility] Comment:METER #: [id number] additional_comment: Cb n-manla VBG PO2 58 mmHg [facility] Comment:METER #: [id number] additional_comment: Cb n-manla VBG Base Excess 0.6 mmol/L [facility] Comment:METER #: [id number] additional_comment: Cb n-manla VBG HCO3 22 22 - 26 mmol/L [facility] Comment:METER #: [id number] additional_comment: Cb n-manla O2 Sat, [place] 88.0 % [facility] Comment:METER #: [id number] additional_comment: Cb n-manla 05/13/2025 4:43 PM EDT 05/13/2025 4:47 PM EDT us Generic External Data Provider LAB BLOOD ORDERAB LES Final Result [facility] [address] [place] [phone] * (ABNORMAL) Prothrombin Time-INR (05/13/2025 4:35 PM EDT) Prothrombin Time 14.4(H) 10.9 - 12.4 SEC [facility] INTERNATIONAL NORM RATIO 1.3(H) 0.9 - 1.1 [facility] Comment:INTERNATIONAL NORMAL IZED RATIO (INR) [...] ORDERAB LES Final Result Performing Organization Address [facility] de Phone Number [facility] [address] [place] [phone] * High Sensitivity Troponin I (05/13/2025 4:24 PM EDT) [facility] TROPONIN I HIGH SENSITIVITY 5.3 <3.5 - 35.0 ng/L [facility] Comment:The Vargas high sens itivity Troponin-I results should beused in conjunction with other diagnostic information suchas ECG, clinical observations and information, and patientsymptoms to aid in the diagnosis of CA. 05/13/2025 4:24 PM EDT 05/13/2025 4:28 PM EDT Generic External Data Provider LAB BLOOD ORDERAB LES Final Result Performing Organization Address [facility] de Phone Number [facility] [address] [place] [phone] * (ABNORMAL) CBC auto differential (05/13/2025 4:24 PM EDT) [facility] White Blood Count 7.3 4.8 - 10.8 X10*3/uL [facility] Red Blood Count 4.91 4.60 - 5.80 X10*6/uL [facility] Hemoglobin 14.0 14.0 - 18.0 g/dl [facility] Hematocrit 41.2(L) 42.0 - 52.0 % [facility] Mean Corpuscular Volume 83.9 80.0 - 98.0 fL [facility] Mean Corpuscular Hemoglobin 28.5 27.0 - 33.0 pg [facility] Mean Corpuscular HGB Conc 34.0 31.0 - 36.0 g/dl [facility] Red Cell Distribution Width 13.5 11.0 - 16.0 % [facility] Platelet Count 273 160 - 400 X10*3/uL [facility] Mean Platelet Volume 8.6(L) 9.4 - 12.4 fL [facility] Neutrophils Percent Auto 80.9(H) 45 - 73 % [facility] Imm Gran Pct Auto 1.5(H) 0.0 - 0.4 % [facility] Lymphocytes Percent Auto 8.1(L) 20 - 40 % [facility] Monocytes Percent Auto 8.8 2 - 11 % [facility] Eosinophils Percent Auto 0.1 0 - 4 % [facility] Basophils Percent Auto 0.6 0 - 2 % [facility] NRBC Pct Auto 0.0 0.0 - 0.2 /100WBC [facility] Neutrophils Absolute Auto 5.9 2.0 - 8.3 x10*3/uL [facility] Imm Gran Abs Auto 0.11(H) 0.00 - 0.03 X10*3/uL [facility] Lymphocytes Absolute Auto 0.6(L) 1.2 - 4.9 X10*3/uL [facility] Monocytes Absolute Auto 0.6 0.1 - 1.2 X10*3/uL [facility] Eosinophils Absolute Auto 0.0 0.0 - 0.4 X10*3/uL [facility] Basophils Absolute Auto 0.0 0.0 - 0.2 X10*3/uL [facility] NRBC Abs Auto 0.000 0.0 - 0.012 X10*3/uL [facility] 05/13/2025 4:24 PM EDT 05/13/2025 4:28 PM EDT us Generic External Data Provider LAB BLOOD ORDERAB LES Final Result [facility] [address] [place] [phone] * (ABNORMAL) Magnesium (05/13/2025 4:24 PM EDT) Magnesium 1.2(LL) 1.6 - 2.6 mg/dL [facility] Comment:Critical value for t est(s): MG Results called to and readback by:GERBER Person calling: KUSF Date:05-13-25 Time:1649 05/13/2025 4:24 PM EDT 05/13/2025 4:28 PM EDT us Generic External Data Provider LAB BLOOD ORDERAB LES Final Result [facility] [address] [place] [phone] * (ABNORMAL) Comprehensive Metabolic Panel (05/13/2025 4:24 PM EDT) Sodium 135 135 - 145 mmol/L [facility] Potassium 4.5 3.3 - 5.1 mmol/L [facility] Chloride 95(L) 96 - 108 mmol/L [facility] Carbon Dioxide 24 22 - 29 mmol/L [facility] Anion Gap 21(H) 12 - 20 [facility] Urea Nitrogen (BUN) 21(H) 9 - 16 mg/dL [facility] Creatinine, Serum 0.93 0.5 - 1.4 mg/dL [facility] Creatinine Clr Calc Pharmacy 50.5 [facility] Comment:eGFR (calculated fro m the MDRD study equation) and eCrCl(calculated from the Cockcroft-Gault equation) are based ondifferent parameters and may not yield comparable results.If eCrCl result is absurd, please check patient'sheight/weight. Estimated Glomerular Filt Rate >60 [facility] Comment:Chronic Kidney Disea se: Estimated GFR < 60 mL/min/1.52w1Eszpsq Kidney Disease: Estimated GFR < 15 mL/min/1.73m2 Glucose 134(H) 60 - 115 mg/dL [facility] Calcium 9.9 8.4 - 10.2 mg/dL [facility] Bilirubin, Total 0.5 0.0 - 1.0 mg/dL [facility] Aspartate Amino Transferase 45(H) 5 - 37 U/L [facility] Alanine Aminotransferase 12 0 - 40 U/L [facility] Total Protein 7.7 6.5 - 8.0 g/dL [facility] Albumin Level 4.3 3.5 - 5.0 g/dL [facility] Alkaline Phosphatase 107 39 - 117 U/L [facility] 05/13/2025 4:24 PM EDT 05/13/2025 4:28 PM EDT Generic External Data Provider LAB BLOOD ORDERAB LES Final Result Performing Organization Address [facility] Co de Phone Number [facility] [address] [place] [phone] * (ABNORMAL) Lactic Acid (05/13/2025 4:24 PM EDT) Lactic Acid 3.8(HH) 0.5 - 2.0 mmol/L [facility] Comment:Critical value for t est(s): LA Results called to and readback by:GERBER Person calling:JACKELYN Date: 11-10-05Smsi:1649 05/13/2025 4:24 PM EDT 05/13/2025 4:28 PM EDT Generic External Data Provider LAB BLOOD ORDERAB LES Final Result Performing Organization Address [facility] de Phone Number [facility] [address] [place] [phone] [phone] documented in this encounter Visit Diagnoses Not on filedocumented in this encounter Additional Health Concerns Assessment Noted Time PHQ-9 Depression Total Score: 0 07/05/20 24 11:25 AM EST documented as of this encounter Care Teams Party Coordinator Relationship Specialty Start Date End Date Abbi Saha FNP [address] [place] [phone] PCP - General Family Medicine 04/01/23 Noemi GARCIA 05/08/24 documented as of this encounter
--- OUTSIDE RECORDS SUMMARY | 2025-05-13 17:23 | XMS_ITS ---
Author Name Dineshmikaela TSERING, RN, RD, [place] Address [address] [place] [address] Phone [phone] [facility] Care Team Providers Care Apartment Community Manager Name Role Phone Adeola Campuzano Unavailable [phone] Unavailable Unavailable Unavailable [facility] [place] Unavailable [phone] TYLER LARES Unavailable [phone] [facility] Unavailable [facility] Unavailable [phone] Reason for Referral Not Available Allergies, adverse [...] 2023-01-05 No Data Available OneTouch Delica Plus [id number] Miscellaneous TEST BLOOD SUGAR TWICE DAILY 2022-08-20 [...] 5 mg Cap TAKE 1 CAPSULE BY [facility] AT BED[facility] 2023-06-15 No Data [...] intervention: Encourage increased fluid intakeCiprofloxacin 500mg BID [id number] Tylenol for pain or fever Encounters Encounters Type Facility Date of Service Diagnosis/Co mplaint Unlisted special service; to be used for medical record reviews and reporting CPTII codes (1111F, etc) [facility] ([place] 05/27/2024 Encounter for other specifie d aftercare Unlisted special service; to be used for medical record reviews and reporting CPTII codes (1111F, etc) [facility] [place] 05/27/2024 Social History Sex Male History of Procedures Procedures Service Procedure code Service date Servicing provider Phone# Unlisted special service; to be used for medical record reviews and reporting CPTII codes (1111F, etc) [address] 2024-05-28 No Data Available No Data Availa ble Medications prescribed in hospital were reviewed and reconciled against what they were taking prior to admission during today's visit. (1111F) 1111F 2024-05-28 No Data Available No Data Availa ble Functional Status No Information Mental Status No Information Assessments Not Available Plan of Care Not Available
--- OUTSIDE RECORDS SUMMARY | 2025-05-13 17:23 | XMS_ITS | Encounter Summary ---
Author Organization [employer] Address [address] [facility] 7 [place] [address] Care Team Providers Care Nursing Education Consultant Name Role Phone Maria A [facility] Primary Care Provider [phone] Reason for Visit * Reason Comments Transition Of Care (Tcm) HDF- scheduled with the Direct Line Encounter Details Date Type Department Care Team ([facility] st Contact Info) Description 05/10/2025 Patient Outreach [facility] [address] [place], [place] [phone] Carlos [facility] [address] [place] [address] Transition Of Care (Tcm) (HDF- scheduled with the Direct Line ) Social History Tobacco Use Types Packs/Day Years [...] as of this encounter Miscellaneous Notes * Significant Event - Lupe Galindo - 05/10/2025 11:24 AM EDT 05/10/25 1122 [facility] Hospital Admission Date of Admission/Visit 04/26/25 Date of Discharge 05/11/25 Facility [facility] Diagnosis Sepsis UTI Disposition Admitted Follow-Up Actions Follow-Up Needed Provider appointment Follow-Up Outcome Spoke to Caregiver;Booked Appointment Initial Contact Date 05/10/25 Received incoming call from the [facility] Line. YULISSA Spoke with Sharyn from [facility]. Patient has been scheduled for an HDF appointment on 05/22/2025 at 10:45am with Dr. Rich. YULISSA requested discharge summaries to be faxed to the Care Management Department at [phone]. Sharyn stated once the patient is discharge from the facility tomorrow, she will fax it to us tomorrow .CC will follow up on discharge summary following patient's discharge. Insurance verified prior to scheduling. Also [facility] discharge summary was scanned into patient's chart. documented in this encounter Plan of Treatment Upcoming Encounters Date Type Department Care Team (Late st Contact Info) Description 05/22/2025 10:45 AM EST Office Visit [facility] [address] [place] [address] Swati Kan MD [address] [place] [address] 09/10/2025 2:00 PM EST Office Visit [facility] ADULT DENTAL [address] [place] [address] Nusrat Lynch [address] [place] [address] documented as of this encounter Visit Diagnoses Not on filedocumented in this encounter Additional Health Concerns Assessment Noted Time PHQ-9 Depression Total Score: 0 07/05/20 11:25 AM EST documented as of this encounter Care Teams Nursing Education Consultant Relationship Specialty Start Date End Date Maria AAbbi robb FNP [address] [place] [address] PCP - General Family Medicine 04/01/23 Tiline SOPHIAA 05/08/24 documented as of this encounter
--- OUTSIDE RECORDS SUMMARY | 2025-05-13 17:23 | XMS_ITS | Encounter Summary ---
Author Organization [employer] Address [address] [facility] 7[address] [place] [address] Care Team Providers Care Music Industry Intern Name Role Phone Sandy Torrez MD Primary Care Provider Unava ilable [facility] REFORMATORY ATTENDANT Primary Care Provider [phone] Gogo Palacio REFORMATORY ATTENDANT Primary Care Provider [phone] [facility] Primary Care Provider [phone] Encounter Details Date Type Department Care Team (Latest Contact Info) Description 07/17/2019 Abstract [facility] CONVERSIONS Dental, Provider, DDS Social [...] Description 05/22/2025 10:45 AM EST Office Visit [facility] MEDICINE [address] [place], [place] [phone] Swati Kan MD [address] [place], [place] [phone] 09/10/2025 2:00 PM EST Office Visit [facility] ADULT DENTAL [address] [place], [place] [phone] Nusrat Lynch [address] [place] [address] documented as of this encounter Visit Diagnoses Not on filedocumented in this encounter Care Teams Music Industry Intern Relationship Specialty Start Date End Date Sandy Torrez MD PCP - General Family Medicine 01/09/20 06/22/22 Maria AAbbi robb FNP [address] [place] [address] PCP - General Family Medicine 06/23/22 03/28/23 Gogo Palacio FNP [address] [place] [address] PCP - General Family Medicine 03/29/23 03/31/23 Maria AAbbi robb FNP [address] [place] [address] PCP - General Family Medicine 04/01/23 [facility] 05/08/24 documented as of this encounter
--- OUTSIDE RECORDS SUMMARY | 2025-05-13 17:23 | XMS_ITS | Clinical Summary ---
Author Organization [facility] Address [address] [place] [address] Phone Care Team Providers Care Cab Starter Name Role Phone Maria A Abbi Primary Care Provider [phone] Allergies No known active allergies Medications Multiple [...] Visit [facility] [address] [id number] Rosanna Zamudio ARNP [address] [id number] Health Maintenance Due Date Last Done Comments [...] [facility] Medicare Medicaid [place] Care Teams Cab Starter Relationship Specialty Start Date End Date Abbi Saha [address] [place] [address] [phone] [facility] 11/22/24
--- OUTSIDE RECORDS SUMMARY | 2025-05-13 17:23 | XMS_ITS | Encounter Summary ---
Author Organization [employer] Address [address] [place] [address] Care Team Providers Care Dough Cutting Machine Operator Name Role Phone Sandy Torrez MD Primary Care Provider [employer] CLUSTER BORE OPERATOR Primary Care Provider [phone] Gogo Palacio CLUSTER BORE OPERATOR Primary Care Provider [phone] [facility] Primary Care Provider [phone] Encounter Details Date Type Department Care Team (Latest Contact Info) Description 06/23/2021 Abstract [facility] CONVERSIONS Dental, Provider, DDS Social [...] Description 05/22/2025 10:45 AM EST Office Visit [facility] MEDICINE [address], [place] [address]240 Swati Kan MD [address] [place], [place] [phone] 09/10/2025 2:00 PM EST Office Visit [facility] ADULT DENTAL [address], [place] [phone] Nusrat Lynch [address], [place] [phone] documented as of this encounter Visit Diagnoses Not on filedocumented in this encounter Care Teams Dough Cutting Machine Operator Relationship Specialty Start Date End Date Sandy Torrez MD PCP - General Family Medicine 01/09/20 06/22/22 Maria AAbbi robb FNP [address] [place] [address] PCP - General Family Medicine 06/23/22 03/28/23 Gogo Palacio FNP [address] [place] [address] PCP - General Family Medicine 03/29/23 03/31/23 AnnandaleAbbi FNP [address] [place] [address] PCP - General Family Medicine 04/01/23 [facility] 05/08/24 documented as of this encounter
[2025-05-13 18:28] LABS: Reflex Lactate? Lactic Acid Added
[2025-05-13] MEDS: Magnesium Sulfate/H2O 2 GM/50 ML PIGGYBACK IV (18:50)
[2025-05-13 19:29] LABS: ~Lactic Acid-LAB USE ONLY 2.1 mmol/L (0.5-2.0)
[2025-05-13 19:54] LABS: Appearance Urine Clear; Glucose Urine UA >=1000 mg/dL (Negative); PH 5.0 (5.0-9.0); Specific Gravity - Urine >= 1.030 (1.005-1.025); UMIC TRIGGER UACC YES
[2025-05-13 20:05] LABS: UACC Culture Trigger YES
[2025-05-13] MEDS: Lactated Ringers 1,000 ML 999 ML IV (20:14)
--- NOTE | 2025-05-13 20:49 | PM.IMHP ---
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 Patient was discharged from [facility] this past Wednesday after being there for 2 weeks status post admission for urinary tract infection and large hydrocele. Patient was seen by Nephrology for an NEELIMA which today renal function appears to be stable. Patient was seen by Urology and there was nothing urgent to address at that time but patient did leave with a Pisano in place and according to family the Pisano has not been changed since that previous admission back in April. Unable to verify with group home if catheter was changed there. Patient did present with a rectal temp of 104.5 degrees. Patient is currently verbal interacting with his daughter and machine compositor at the bedside. Workup in the ED identified a UA that was positive for UTI. In addition chest x-ray negative for any acute findings. Patient does not have a leukocytosis or bandemia. ABG on arrival 7.52, 26, 58, 22. Pisano currently patent draining yellow urine. No sediment identified. Lactic acid initially 3.8 and after IV fluids currently 2.1 with repeat pending. LFTs stable. Patient continues on. IV fluids. Magnesium 1.2 and patient received 2 g of magnesium in the ED. Patient was started on vancomycin and Zosyn in the ED. Previous urine culture this past admission identified greater than 100,000 CFUs and indicated mixed finesse with urogenital contamination. Previous culture positive for strep veridians. Pt has hx of MRSA. Patient being admitted with a UTI and evidence of sepsis to include elevated lactic acid, hypotension and tachycardia with fever. 0340 report from nursing in ED pt having bouts of diarrhea, orderd stool panel, CDIFF rule out and pt placed on precautions PMFSH Medical History (Updated 05/13/25 @ 20:23 by Etienne Christian MD) Syncope and collapse 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) HLD (hyperlipidemia) GERD (gastroesophageal reflux disease) Exocrine pancreatic insufficiency Abdominal bloating Renal cyst Loose stools History of revision of total replacement of right knee joint Lung mass High cholesterol Anemia Pleural hemorrhage Diverticulosis Hyponatremia Acute hyponatremia Colon cancer screening Erectile dysfunction Gastritis COVID-19 virus infection Hydrocele Cataract Hypercholesteremia Diabetes BPH (benign prostatic hyperplasia) Hypertension Family History Father Diabetes Mother Diabetes Uterus cancer Mother Cancer Surgical History History of bilateral knee replacement Visit for wound check S/P chest tube placement Hx of colonoscopy History of prostate surgery Social History Household Members: Spouse, Family and Children Housing: Apartment Housing Other:: Pt lives in senior housing Are you a primary child day care teacher to a significant other at home: No Do you presently have visiting nurse or other home services: Yes Alcohol intake: never Comment: camera placed as pt is impulsive, attempts to get OOB. Hx falls recently Patient Tobacco Use Status: Never used Tobacco Smoked in Last 30 Days: No Use of substances other than those prescribed or required for medical reasons: No Advance Directives: Yes Advance Directives on File: Yes Advance Directives Date on File: 04/06/25 Do you have a plan to hurt others: No Plan service: No Current occupational status: retired Current occupation: right handed Gender identity: Male Meds Allergies Allergy/AdvReac Type Severity Reaction Status Date / Time vancomycin Allergy Intermediate Redness of Verified 05/13/25 15:51 Skin Active Medications: Current Medications Lactated Ringer's (Lr) 1,000 mls @ 999 mls/hr IV .Q1H1M JOHNATHAN Stop: 05/13/25 21:15 Last Admin: 05/13/25 20:14 Dose: 999 mls/hr Home Medications ?Medication ?Instructions ?Recorded ?Confirmed ?Last Taken ?Type atorvastatin 10 mg tablet 10 mg PO DAILY 05/08/20 05/04/25 07/01/20 History blood sugar diagnostic #10 ea 10/04/20 05/04/25 Unknown History lancets 33 gauge #100 ea 10/04/20 05/04/25 Unknown History metformin 1,000 mg tablet 1,000 mg PO BIDWM 10/04/20 05/04/25 Unknown History multivitamin 1 tab PO DAILY@1700 10/04/20 05/04/25 Unknown History dapagliflozin propanediol 10 mg 10 mg PO DAILY 10/09/21 05/04/25 05/03/24 History tablet (Farxiga) omeprazole 20 mg capsule,delayed 20 mg PO BID@0630,1630 04/29/24 05/04/25 Unknown History release dabrafenib 75 mg capsule 150 mg PO BID 04/22/25 05/04/25 Unknown History fnlawk-fkutmvvi-xogawh(pork)24,000-76,000-120,000 2 cap PO TIDWM 04/22/25 05/04/25 Unknown History unit capsule,del rel (Creon) mirtazapine 7.5 mg tablet 7.5 mg PO BEDTIME 04/22/25 05/04/25 Unknown History sitagliptin phosphate 25 mg tablet 25 mg PO DAILY 04/22/25 05/04/25 Unknown History (Justouvia) trametinib 2 mg tablet (Mekinist) 2 mg PO DAILY@0600 04/22/25 05/04/25 Unknown History Physical Exam Vital Signs and Narrative: Vital Signs: Last Vital Signs Temp 101.3 F H 05/13/25 18:00 Pulse 88 05/13/25 19:05 Resp 19 05/13/25 19:05 BP 110/63 05/13/25 19:05 Pulse Ox 98 05/13/25 19:05 O2 Del Method Room Air 05/13/25 19:05 BMI result Body Mass Index 23.6 Alert and orientated X3, unable to provide h/p, daughter helpful with providing hx Neuro: CN II-X11 intact, no deficits, visual acuity intact EYES: PERRLA, EOM intact, sclera nonicteric ENT: hearing intact, no issues with swallowing, uvula midline, lips moist, nares patent no epistaxis Cardiac: S1 S2 RRR, no murmur, no JVD, no edema in Lower ext Pulmonary: lungs diminished B, no RH or wheezing Abdominal: BS active in all 4 quadrants, no guarding, tenderness, rebounding MSK: strength 5/5 upper and lower extremities : no CVA tenderness, pisano patent, changed today, large scrotum hydrocele not new Extremities: no edema in lower extremities, PT and DP pulses palpable +2 Psych: mood stable, judgement and insight poor Skin: chronic acaral wound Results Labs 05/14/25 03:51 05/14/25 03:51 Labs: Laboratory Results - last 24 hr 05/13/25 05/13/25 05/13/25 16:24 16:35 16:43 MCV 83.9 MCH 28.5 MCHC 34.0 RDW 13.5 Plt Count 273 D MPV 8.6 L Immature Gran % (Auto) 1.5 H Neut % (Auto) 80.9 H Lymph % (Auto) 8.1 L Humphreys % (Auto) 8.8 Eos % (Auto) 0.1 Baso % (Auto) 0.6 Lymph # (Auto) 0.6 L Humphreys # (Auto) 0.6 Eos # (Auto) 0.0 Baso # (Auto) 0.0 Abs Immat Gran (auto) 0.11 H Absolute Neuts (auto) 5.9 Absolute Nucleated RBC 0.000 Nucleated RBC % (auto) 0.0 PT 14.4 H D INR 1.3 H VBG pH 7.52 H VBG pCO2 26 VBG pO2 58 VBG HCO3 22 VBG O2 Saturation 88.0 VBG Base Excess 0.6 Anion Gap 21 H Estim Creat Clear Calc 50.5 Estimated GFR > 60 Random Glucose 134 H Lactic Acid 3.8 H* Lactic Acid F/U @ 2Hr Calcium 9.9 D Magnesium 1.2 L* Total Bilirubin 0.5 AST 45 H ALT 12 Alkaline Phosphatase 107 Troponin I High Sens 5.3 D Total Protein 7.7 Albumin 4.3 Urine Color Urine Appearance Urine pH Ur Specific [place] Urine Protein Urine Glucose (UA) Urine Ketones Urine Blood Urine Nitrite Ur Leukocyte Esterase Urine RBC Urine WBC Ur Squamous Epith Cells Urine Bacteria Hyaline Casts COVID-19 (HERSON) Negative COVID-19 Clin Com See Note Influenza Type A (MICHELLE) Negative Influenza Type B (MICHELLE) Negative Influenza A & B Note See Note 05/13/25 05/13/25 19:00 19:42 MCV MCH MCHC RDW Plt Count MPV Immature Gran % (Auto) Neut % (Auto) Lymph % (Auto) Humphreys % (Auto) Eos % (Auto) Baso % (Auto) Lymph # (Auto) Humphreys # (Auto) Eos # (Auto) Baso # (Auto) Abs Immat Gran (auto) Absolute Neuts (auto) Absolute Nucleated RBC Nucleated RBC % (auto) PT INR VBG pH VBG pCO2 VBG pO2 VBG HCO3 VBG O2 Saturation VBG Base Excess Anion Gap Estim Creat Clear Calc Estimated GFR Random Glucose Lactic Acid Lactic Acid F/U @ 2Hr 2.1 H* Calcium Magnesium Total Bilirubin AST ALT Alkaline Phosphatase Troponin I High Sens Total Protein Albumin Urine Color Yellow Urine Appearance Clear Urine pH 5.0 Ur Specific [place] >= 1.030 H Urine Protein 30 (1+) H Urine Glucose (UA) >=1000 H Urine Ketones Negative Urine Blood Small (1+) H Urine Nitrite Positive H Ur Leukocyte Esterase Small (1+) H Urine RBC 0-2 Urine WBC 21-50 H Ur Squamous Epith Cells 3-5 Urine Bacteria Trace Hyaline Casts 3-5 COVID-19 (HERSON) COVID-19 Clin Com Influenza Type A (MICHELLE) Influenza Type B (MICHELLE) Influenza A & B Note Assessment and Plan (1) Urinary tract infection with fever: Status: Acute Plan Patient is a 79-year-old male with past medical history small-cell lung cancer (nonsmoker, 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 Sepsis/ Lactic acidosis Pt resuscitated with IVF per protocol ABX implemented Telemetry BC pending Urine culture pending Tylenol for temp UTI UA positive Follow urine culture Continue vanco and zosyn ID consulted Persistent Diarrhea (epiosodes started in ED after admission) Rule out CDIFF via stool panel Contact precautions Hydrocele Urology reconslted this admission, pt's outpatient appt is tomoroow No change in presentation, no pain or redness or warmth noted Hypomagnesemia MG IV in ED daily level May need daily supplementation GERD Omeperazole Bhq-tenzu-mysm carcinoma of the lung Plan per oncpology as an outpatient Chronic sacral wound Consulted wound care for follow through Turn and postion Q2H when awake DVT prophylaxis: Med rec pending Do not intubate, okay to resuscitate Quality Stroke Does the patient have a stroke diagnosis?: No Reason for No Anti-thrombotic by Day Two: N/A - Med Ordered VTE Prior VTE?: No VTE Risk Level:: Medical - moderate - high VTE Device Contraindication: N/A - Device Ordered VTE Drug Contraindication: N/A - Med Ordered
[2025-05-13 21:03] LABS: Reflex Lactate? 2 Y
[2025-05-13 22:11] LABS: ~Lactic Acid-LAB USE ONLY 2.0 mmol/L (0.5-2.0)
--- NOTE | 2025-05-13 22:29 | PHA.PROG ---
Admission Date/Time: May 13, 2025 20:46 Indication: Other Weight in k.513 kg Adjusted body weight in Kg: [place] body weight in Kg: Obesity Dosing Indication % IBW: Serum Creatinine - Last 168 Hours 05/13/25 16:24 Creatinine 0.93 Estimated CrCl and GFR - Last 168 Hours 05/13/25 16:24 Estim Creat Clear Calc 50.5 Estimated GFR > 60 Vancomycin Loading Dose: 1500mg Current Vancomycin Dosing Regimen: 1250mg q24H Vancomycin Monitoring using AUC goal of 400 - 600 range with trough as surrogate marker: 528 mg/L*hr Date and Time for next Vancomycin Level to be drawn: 05/15/25 @1500 Pharmacist Comments on Vancomycin Plan: Vancomycin dosing will take advantage of [employer] as a clinical decision support tool that uses Bayesian modeling to calculate individual patient's pharmacokinetic parameters and forecast the patient's drug concentration time course with the target goal AUC 24 range of 400 - 600 mg/L/hr.
--- NOTE | 2025-05-13 23:50 | PC.NURSE ---
Took over care from LARISA Hernandez, pt repositioned for comfort, call olson at the bedside.
[2025-05-14] VITALS (7 sets, daily range): BP systolic 109–172; BP diastolic 58–81; PULSE 61–73; RESP 14–19; TEMP 35.9–36.9; O2SAT 96–100; BMI 23.6
--- NOTE | 2025-05-14 01:50 | PC.NURSE ---
pt incontinent of loose stool, complete bed change, coccyx has some skin breakdown, allevyn place on coccyx. call olson at the bedside.
[2025-05-14 03:59] LABS: MANUAL DIFF FLAG NO
[2025-05-14 04:00] LABS: Hematocrit 34.8 % (42.0-52.0); Hemoglobin 11.8 g/dl (14.0-18.0); Imm Gran Abs Auto 0.11 X10*3/uL (0.00-0.03); Imm Gran Pct Auto 1.7 % (0.0-0.4); Lymphocytes Absolute Auto 1.1 X10*3/uL (1.2-4.9); Mean Corpuscular HGB Conc 33.9 g/dl (31.0-36.0); Mean Corpuscular Hemoglobin 28.2 pg (27.0-33.0); Mean Corpuscular Volume 83.1 fL (80.0-98.0); NRBC Abs Auto 0.000 X10*3/uL (0.0-0.012); NRBC Pct Auto 0.0 /100WBC (0.0-0.2); Platelet Count 215 X10*3/uL (160-400); Red Blood Count 4.19 X10*6/uL (4.60-5.80); White Blood Count 6.4 X10*3/uL (4.8-10.8)
--- NOTE | 2025-05-14 04:03 | PC.NURSE ---
pt incontinent of stool, notified provider who order a GI panel.
[2025-05-14 04:15] LABS: Alanine Aminotransferase 10 U/L (0-40); Albumin Level 3.2 g/dL (3.5-5.0); Alkaline Phosphatase 79 U/L (39-117); Anion Gap 10 (12-20); Aspartate Amino Transferase 38 U/L (5-37); Blood Urea Nitrogen 16 mg/dL (9-16); Calcium 8.6 mg/dL (8.4-10.2); Carbon Dioxide 20 mmol/L (22-29); Chloride 107 mmol/L (96-108); Creatinine Clr Calc Pharmacy 70.1; Estimated Glomerular Filt Rate > 60; Magnesium 1.6 mg/dL (1.6-2.6); Potassium 3.9 mmol/L (3.3-5.1); Sodium 133 mmol/L (135-145); Total Protein 5.9 g/dL (6.5-8.0)
--- NOTE | 2025-05-14 04:29 | MHC.EDTECH ---
This tech took over care of pt at 0400AM, vitals taken, rectal temp of 96.7, RN aware at bedside, pt was incont of a small amount of liquid brown stool, pt was cleaned and foam dressing applied to coccyx area, unable to obtain a stool sample at this time. call olson within reach
--- NOTE | 2025-05-14 04:40 | PC.NURSE ---
rectal temp taken, warm blanket given, call olson at the bedside.
[2025-05-14] MEDS: 0.9 % Sodium Chloride Flush 3 ML SYRINGE IVFLUSH ×4 (05:19→21:14)
--- NOTE | 2025-05-14 05:22 | PC.NURSE ---
medicated per mar.
--- NOTE | 2025-05-14 07:28 | PC.NURSE ---
Pt incontinent of stool. Linens changed and sparkle care provided.
--- NOTE | 2025-05-14 07:51 | P.CNUR_ITS ---
History of Present Illness Consult details Consult date: 05/14/25 Narrative: CC: Recurrent urinary tract infection in setting of diabetes with use of SGLT2 1 and background of immunosuppression from [id number] carcinoma of the lung therapy 79-year-old male Background small cell lung cancer, recurrent UTI, SGLT2 for diabetes Prior UTI and at [facility] Had Pat catheter in place at time of admission Presentation with rectal temp 104.5 degrees Initial evaluation indicative of CAUTI Recommendation conservative management with IV antibiotics Stop all SGLT2 medications that are causing glucosuria providing a food source for bacteria Immunocompromised state so he will be at risk for infection Once current UTI managed recommend vitamin-C with methenamine as suppression Obtain HbA1c and recommend aggressive diabetes management with insulin This is not a primary urologic condition but related to diabetes management in the setting of immunocompromise from immunotherapy use for cancer. Review of Systems 2 Constitutional: Constitutional: Reports as per HPI and Reports no additional constitutional complaints Cardiovascular: Cardiovascular: Reports as per HPI and Reports no additional cardiovascular complaints Respiratory: Respiratory: Reports as per HPI and Reports no additional respiratory complaints Gastrointestinal: Gastrointestinal: Reports as per HPI and Reports no additional gastrointestinal complaints Genitourinary: Genitourinary: Reports as per HPI Musculoskeletal: Musculoskeletal: Reports no additional musculoskeletal complaints and Reports as per HPI Neurologic: Reports system reviewed and no additional complaints, except as documented and Reports as per HPI [facility] Past Medical History Medical History (Updated 05/14/25 @ 07:56 by Gabe Thakkar MD) Syncope and collapse 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) HLD (hyperlipidemia) GERD (gastroesophageal reflux disease) Exocrine pancreatic insufficiency Abdominal bloating Renal cyst Loose stools History of revision of total replacement of right knee joint Lung mass High cholesterol Anemia Pleural hemorrhage Diverticulosis Hyponatremia Acute hyponatremia Colon cancer screening Erectile dysfunction Gastritis COVID-19 virus infection Hydrocele Cataract Hypercholesteremia Diabetes BPH (benign prostatic hyperplasia) Hypertension Family History Family History Father Diabetes Mother Diabetes Uterus cancer Mother Cancer Surgical History Surgical History History of bilateral knee replacement Visit for wound check S/P chest tube placement Hx of colonoscopy History of prostate surgery Social History Social History (Reviewed 05/04/25 @ 13:50 by Evgeny Austin Household Members: Spouse, Family and Children Housing: Apartment Housing Other:: Pt lives in senior housing Are you a primary acute care registered nurse to a significant other at home: No Do you presently have visiting nurse or other home services: Yes Alcohol intake: never Comment: camera placed as pt is impulsive, attempts to get OOB. Hx falls recently Patient Tobacco Use Status: Never used Tobacco Smoked in Last 30 Days: No Use of substances other than those prescribed or required for medical reasons: No Advance Directives: Yes Advance Directives on File: Yes Advance Directives Date on File: 04/06/25 Do you have a plan to hurt others: No Plan service: No Current occupational status: retired Current occupation: right handed Gender identity: Male Meds Allergies Allergy/AdvReac Type Severity Reaction Status Date / Time vancomycin Allergy Intermediate Redness of Verified 05/13/25 15:51 Skin Active Medications: Current Medications Acetaminophen (Acetaminophen 325 Mg Tablet) 650 mg PO Q6H PRN PRN Reason: Pain, Mild 1-3,fever,headache Albuterol/Ipratropium (Albuterol/Iprat 2.5/0.5mg 3 Ml Ampul.Neb) 3 ml INHALE Q4H PRN PRN Reason: Shortness of Breath/Wheezing Calcium Carbonate (Calcium Carbonate 750 Mg Tab.Chew) 750 mg PO Q4H PRN PRN Reason: Heartburn Enoxaparin Sodium (Enoxaparin Sodium 40 Mg/0.4 Ml Syringe) 40 mg SUBCUT Q24H [facility] Last Admin: 05/13/25 22:00 Dose: 40 mg Piperacillin Sod/Tazobactam (Sod 3.375 gm/ Sodium Chloride) 50 mls @ 100 mls/hr IV Q6H [facility] Last Infusion: 05/14/25 06:09 Dose: Infused Vancomycin HCl 1,250 mg/ (Sodium Chloride) 250 mls @ 166.667 mls/hr IV Q24H [facility] Magnesium Hydroxide (Milk Of Magnesia 30 Ml Oral.Susp) 30 ml PO DAILY PRN PRN Reason: Constipation Melatonin (Melatonin 3 Mg Tablet) 6 mg PO BEDTIME PRN PRN Reason: Insomnia Ondansetron HCl (Ondansetron Hcl 4 Mg/2 Ml Vial) 4 mg IVPUSH Q8H PRN PRN Reason: Nausea and Vomiting Pharmacy Consult (Consult Rx Vancomycin Dosing) 1 each MISCELLANE DAILY PRN PRN Reason: Consult order Polyethylene Glycol (Polyethylene Glycol 3350 17 Gm Powd.Pack) 17 gm PO DAILY PRN PRN Reason: Constipation Senna (Sennosides 8.6 Mg Tablet) 17.2 mg PO BEDTIME [facility] Last Admin: 05/13/25 21:50 Dose: Not Given Sodium Chloride (0.9 % Sodium Chloride Flush 3 Ml Syringe) 3 ml IVFLUSH QSHIFT [facility] Last Admin: 05/14/25 05:19 Dose: 3 ml Home Medications ?Medication ?Instructions ?Recorded ?Confirmed ?Last Taken ?Type atorvastatin 10 mg tablet 10 mg PO DAILY 05/08/2004/1807/01/20 History blood sugar diagnostic #10 ea 10/04/20 05/04/25 Unk nown History lancets 33 gauge #100 ea 10/04/20 05/04/25 Un known History metformin 1,000 mg tablet 1,000 mg PO BIDWM 10/04/20 1 Unknown History multivitamin 1 tab PO DAILY@1700 10/04/20 05/04/25 Unknown History dapagliflozin propanediol 10 mg 10 mg PO DAILY 2 05/04/25 05/03/24 History tablet (Farxiga) omeprazole 20 mg capsule,delayed 20 mg PO BID@0630,163 0 04/29/24 05/04/25 Unknown History release dabrafenib 75 mg capsule 150 mg PO BID 04/22/2505/04 Unknown History sfjgsq-sebpdbse-zulpaj(pork)24,000-76,000-120,000 2 ca p PO TIDWM 04/22/25 05/04/25 Unknown History unit capsule,del rel (Creon) mirtazapine 7.5 mg tablet 7.5 mg PO BEDTIME 04/22/25 1 Unknown History sitagliptin phosphate 25 mg tablet 25 mg PO DAILY 12/1005/04/25 Unknown History (Januvia) trametinib 2 mg tablet (Mekinist) 2 mg PO DAILY@0600 1 05/04/25 Unknown History Physical Exam 2 Vital Signs: Vital Signs: Last Vital Signs Temp 96.9 F 05/14/25 06:23 Pulse 61 05/14/25 06:23 Resp 16 05/14/25 06:23 BP 131/62 05/14/25 06:23 Pulse Ox 100 05/14/25 06:23 O2 Del Method Room Air 05/14/25 06:23 BMI result Body Mass Index 23.6 Const: General: cooperative, healthy appearing, comfortable and no acute distress Orientation/consciousness: patient oriented x3 HEENT: Face and sinus: Yes normal facial exam Mouth: moist mucous membranes Neck: Neck: Yes normal visual inspection, Yes full ROM and Yes trachea midline Chest: Chest palpation & inspection: normal inspection of the chest Resp: Effort & Inspection: normal respiratory effort, able to speak in complete sentences and no respiratory distress GI: Inspection: Yes normal to inspection Back/Spine/Pelvis: Cervical Spine: normal cervical lordosis Thoracic/Lumbar Spine: thoracic and lumbar spine normal to inspection Skin: General skin exam: no rashes or lesions noted Neuro: General: patient oriented x3, tone normal and moves all extremities Extrem: General: Yes normal to inspection and Yes capillary refill normal Results Labs 05/14/25 03:51 05/14/25 03:51 Labs: Abnormal lab results 05/13/25 05/13/25 05/13/25 Range/Units 16:24 16:35 16:43 RBC (4.60-5.80) X10*6/uL Hgb (14.0-18.0) g/dl Hct 41.2 L (42.0-52.0) % MPV 8.6 L (9.4-12.4) fL Immature Gran % (Auto) 1.5 H (0.0-0.4) % Neut % (Auto) 80.9 H (45-73) % Lymph % (Auto) 8.1 L (20-40) % Lymph # (Auto) 0.6 L (1.2-4.9) X10*3/uL Abs Immat Gran (auto) 0.11 H (0.00-0.03) X10*3/uL PT 14.4 H D (10.9-12.4) SEC INR 1.3 H (0.9-1.1) VBG pH 7.52 H (7.32-7.43) Sodium (135-145) mmol/L Chloride 95 L (96-108) mmol/L Carbon Dioxide (22-29) mmol/L Anion Gap 21 H (12-20) BUN 21 H (9-16) mg/dL Random Glucose 134 H (60-115) mg/dL Lactic Acid 3.8 H* (0.5-2.0) mmol/L Lactic Acid F/U @ 2Hr (0.5-2.0) mmol/L Magnesium 1.2 L* (1.6-2.6) mg/dL AST 45 H (5-37) U/L Total Protein (6.5-8.0) g/dL Albumin (3.5-5.0) g/dL Ur Specific Lawler (1.005-1.025) Urine Protein (Neg-Trace) mg/dL Urine Glucose (UA) (Negative) mg/dL Urine Blood (Negative) Urine Nitrite (Negative) Ur Leukocyte Esterase (Negative) Urine WBC (0-5) /HPF 05/13/25 05/13/25 05/14/25 Range/Units 19:00 19:42 03:51 RBC 4.19 L (4.60-5.80) X10*6/uL Hgb 11.8 L (14.0-18.0) g/dl Hct 34.8 L (42.0-52.0) % MPV 8.4 L (9.4-12.4) fL Immature Gran % (Auto) 1.7 H (0.0-0.4) % Neut % (Auto) (45-73) % Lymph % (Auto) 17.9 L (20-40) % Lymph # (Auto) 1.1 L (1.2-4.9) X10*3/uL Abs Immat Gran (auto) 0.11 H (0.00-0.03) X10*3/uL PT (10.9-12.4) SEC INR (0.9-1.1) VBG pH (7.32-7.43) Sodium 133 L (135-145) mmol/L Chloride (96-108) mmol/L Carbon Dioxide 20 L (22-29) mmol/L Anion Gap 10 L (12-20) BUN (9-16) mg/dL Random Glucose (60-115) mg/dL Lactic Acid (0.5-2.0) mmol/L Lactic Acid F/U @ 2Hr 2.1 H* (0.5-2.0) mmol/L Magnesium (1.6-2.6) mg/dL AST 38 H (5-37) U/L Total Protein 5.9 L (6.5-8.0) g/dL Albumin 3.2 L (3.5-5.0) g/dL Ur Specific Lawler >= 1.030 H (1.005-1.025) Urine Protein 30 (1+) H (Neg-Trace) mg/dL Urine Glucose (UA) >=1000 H (Negative) mg/dL Urine Blood Small (1+) H (Negative) Urine Nitrite Positive H (Negative) Ur Leukocyte Esterase Small (1+) H (Negative) Urine WBC 21-50 H (0-5) /HPF Short CBC 05/13/25 05/14/25 Range/Units 16:24 03:51 WBC 7.3 6.4 (4.8-10.8) X10*3/uL Hgb 14.0 11.8 L (14.0-18.0) g/dl Hct 41.2 L 34.8 L (42.0-52.0) % Plt Count 273 D 215 (160-400) X10*3/uL BMP 05/13/25 05/14/25 16:24 03:51 Sodium 135 133 L Potassium 4.5 D 3.9 Chloride 95 L 107 Carbon Dioxide 24 20 L BUN 21 H 16 Creatinine 0.93 0.67 Calcium 9.9 D 8.6 D Liver Function 05/13/25 05/14/25 Range/Units 16:24 03:51 Total Bilirubin 0.5 0.3 (0.0-1.0) mg/dL AST 45 H 38 H (5-37) U/L ALT 12 10 (0-40) U/L Alkaline Phosphatase 107 79 (39-117) U/L Albumin 4.3 3.2 L (3.5-5.0) g/dL Urine 05/13/25 Range/Units 19:42 Urine Color Yellow Urine Appearance Clear Urine pH 5.0 (5.0-9.0) Ur Specific Lawler >= 1.030 H (1.005-1.025) Urine Protein 30 (1+) H (Neg-Trace) mg/dL Urine Glucose (UA) >=1000 H (Negative) mg/dL All other labs normal. Assessment and Plan (1) Catheter-associated urinary tract infection: Status: Acute Plan UTI secondary to SGLT2 medications in setting of immunocompromised patient from immunotherapy from lung cancer Recommend conservative therapy with antibiotics Needs re-evaluation of diabetic management Procedures Date of Service Date of Service: 05/14/25
[2025-05-14 08:55] LABS: E. coli EAEC Not Detected (Not Detect.); E. coli EPEC Not Detected (Not Detect.); E. coli ETEC Not Detected (Not Detect.); E. coli STEC Not Detected (Not Detect.); Shigella sp./EIEC Not Detected (Not Detect.)
--- NOTE | 2025-05-14 09:13 | PC.NURSE ---
Pt working with PT at this time.
--- NOTE | 2025-05-14 10:07 | PHA.MEDREC ---
Addendum entered by Robyn Rodriguez [facility] 05/14/25 10:53: MED REC REVIEWED BY [facility] Addendum entered by Abraham Kirby 05/14/25 10:38: Pt daughter confirmed pt taking Terazosin 5mg at bedtime and Tamsulosin 0.4mg tabs in the morning. Original Note: Pharmacy Consult ? Medication Reconciliation Pharmacy has completed the medication reconciliation. Spoke with pt and he was a poor historian with his medications. I called pt daughter, Maya, and she was able to confirm pt medications over the phone. Pt daughter states pt taking Tamsulosin 0.4mg caps 1 cap daily and said that was being filled at [facility]; I called and spoke with pt pharmacies ([facility], [id number], [facility] and [facility]) and [facility] was the only pharmacy to have claims for Tamsulosin, dating back from 04/02/2023 QTY 30 for 30. Pt takes Dabrafenib 150mg BID and Mekinish 2mg daily and gets them filled at [id number]. Pt took his Cancer medications yesterday before coming in hospital per pt daughter.
[2025-05-14 10:52] LABS: Hemoglobin A1C 142.1866 umol/L; Total Hemoglobin (HGBA1C) 3390.7353 umol/L
--- NOTE | 2025-05-14 12:48 | HO.WOUND ---
Wound Consult: Initial 79 yr old male admitted to [facility] on 05/13/25 - See progress notes and H&P for detailed history. Wound consult placed for coccyx/sacrum. Patient agreeable to assessment and photo documentation. Patient with MISDRAW HAND and PT at bedside, patient stood with assistance for assessment. Patient seen on last admission for pressure injury to right buttock, appears to be healing, area now noted to coccyx also. Coccyx/buttocks Etiology: Coccyx stage 2 pressure injury Present on Admission, Right buttock healing stage 3 pressure injury present on admission. Measurements: see assessment Wound Bed: moist pink - sits in an area with moisture trapping apparent Drainage / Odor: none Edges: ? open Manju wound: ? No Induration, Fluctuance or Warmth noted - hyperpigmentation, pale pink tissue with thickened areas - likely chronic moisture/friction Pain: none Goals of Treatment: ? offloading, moist healing with foam of note- patient with right heel stage 1 pressure injury on previous admission, on assessment today both heels are intact, pink and blanching- recommend continue preventative measures with offloading. Recommendations: 1. Turn and Reposition every 2 hours and as needed for patient comfort. Use pillows or wedges to support off loading positions. 2. Off Load all bony prominences with use of pillows and heel boots if needed. Apply Preventative foams where needed. 3. Monitor for incontinence and moisture control, use barrier creams when needed for prevention and treatment. 4. Provide adequate and supplemental nutrition. 5. Order or Continue low air loss mattress. 6. When applicable maintain blood glucose levels per Providers order. Coccyx and buttock: Off Load Pressure with Q2 hr turns and use of pillows - Routine cleansing. Apply skin prep allow to dry. Cover with foam dressing to aid in off loading and protection from friction. Change every 3 days and PRN. Re-consult wound care Nurse for wound deterioration or wound changes.
--- NOTE | 2025-05-14 13:48 | HO.PM.IMPN ---
Subjective Subjective Date of Service: 05/14/25 Review of Systems Follow up uti no nausea or vomitting, still with diarrhea Physical Exam Exam: Exam: Appearing in no acute distress lung sounds are clear to auscultation heart regular rate rhythm, clear S1, S2 positive bowel sounds, abdomen is soft, nontender neuro patient is alert x3, no focal deficits Vital Signs: Vital Signs: Last Vital Signs Temp 97.6 F 05/14/25 10:23 Pulse 72 05/14/25 10:23 Resp 17 05/14/25 10:23 BP 109/58 L 05/14/25 10:23 Pulse Ox 100 05/14/25 10:23 O2 Del Method Room Air 05/14/25 10:23 BMI result Body Mass Index 23.6 Objective Data Active Medications Acetaminophen (Acetaminophen 325 Mg Tablet) 650 mg PO Q6H PRN PRN Reason: Pain, Mild 1-3,fever,headache Albuterol/Ipratropium (Albuterol/Iprat 2.5/0.5mg 3 Ml Ampul.Neb) 3 ml INHALE Q4H PRN PRN Reason: Shortness of Breath/Wheezing Lipase/Protease/Amylase (Lipase/Prot/Amylase 24/76/120k 1 Cap Capsule.Dr) 2 cap PO TIDWM [facility] Atorvastatin Calcium (Atorvastatin Calcium 10 Mg Tablet) 10 mg PO DAILY [facility] Calcium Carbonate (Calcium Carbonate 750 Mg Tab.Chew) 750 mg PO Q4H PRN PRN Reason: Heartburn Doxazosin Mesylate (Doxazosin Mesylate 2 Mg Tablet) 4 mg PO BEDTIME [facility]; Protocol Enoxaparin Sodium (Enoxaparin Sodium 40 Mg/0.4 Ml Syringe) 40 mg SUBCUT Q24H [facility] Last Admin: 05/13/25 22:00 Dose: 40 mg Documented By: GIFTY-KIANNA Piperacillin Sod/Tazobactam (Sod 3.375 gm/ Sodium Chloride) 50 mls @ 100 mls/hr IV Q6H [facility] Last Infusion: 05/14/25 12:30 Dose: Infused Documented By: ALISAMER Vancomycin HCl 1,250 mg/ (Sodium Chloride) 250 mls @ 166.667 mls/hr IV Q24H [facility] Influenza Virus Vaccine (Flu Vacc [id number](6mo Up)/Pf 0.5 Ml Syringe) 0.5 ml IM .ONCE ONE Stop: 05/14/25 16:01 Magnesium Hydroxide (Milk Of Magnesia 30 Ml Oral.Susp) 30 ml PO DAILY PRN PRN Reason: Constipation Magnesium Oxide (Magnesium Oxide 400 Mg Tablet) 400 mg PO DAILY [facility] Melatonin (Melatonin 3 Mg Tablet) 6 mg PO BEDTIME PRN PRN Reason: Insomnia Metformin HCl (Metformin Hcl 1,000 Mg Tablet) 1,000 mg PO BIDWM [facility] Mirtazapine (Mirtazapine 7.5 Mg Tablet) 7.5 mg PO BEDTIME [facility] Multivitamins/Vitamin C (Multivitamin Tablet) 1 tab PO DAILY@1700 [facility] Non-Formulary Medication (Dabrafenib) 150 mg PO BID [facility] Non-Formulary Medication (Dapagliflozin Propanediol [Farxiga]) 10 mg PO DAILY [facility] Non-Formulary Medication (Trametinib [Mekinist]) 2 mg PO DAILY@0600 [facility] Omeprazole (Omeprazole 20 Mg Capsule.Dr) 20 mg PO BID@0630,1630 PRN PRN Reason: Acid Reflux Ondansetron HCl (Ondansetron Hcl 4 Mg/2 Ml Vial) 4 mg IVPUSH Q8H PRN PRN Reason: Nausea and Vomiting Pharmacy Consult (Consult Rx Vancomycin Dosing) 1 each MISCELLANE DAILY PRN PRN Reason: Consult order Polyethylene Glycol (Polyethylene Glycol 3350 17 Gm Powd.Pack) 17 gm PO DAILY PRN PRN Reason: Constipation Senna (Sennosides 8.6 Mg Tablet) 17.2 mg PO BEDTIME [facility] Last Admin: 05/13/25 21:50 Dose: Not Given Documented By: GIFTY-KIANNA Non-Admin Reason: Patient Condition Contraindication Sitagliptin Phosphate (Sitagliptin Phosphate 25 Mg Tablet) 25 mg PO DAILY [facility] Sodium Chloride (0.9 % Sodium Chloride Flush 3 Ml Syringe) 3 ml IVFLUSH QSHIFT [facility] Last Admin: 05/14/25 08:35 Dose: 3 ml Documented By: SERENA Tamsulosin HCl (Tamsulosin Hcl 0.4 Mg Capsule) 0.4 mg PO DAILY [facility] Trazodone HCl (Trazodone Hcl 50 Mg Tablet) 50 mg PO BEDTIME [facility] Labs 05/14/25 03:51 05/14/25 03:51 Labs: Laboratory Results - last 24 hr 05/13/25 05/13/25 05/13/25 16:24 16:35 16:43 MCV 83.9 MCH 28.5 MCHC 34.0 RDW 13.5 Plt Count 273 D MPV 8.6 L Immature Gran % (Auto) 1.5 H Neut % (Auto) 80.9 H Lymph % (Auto) 8.1 L Chambers % (Auto) 8.8 Eos % (Auto) 0.1 Baso % (Auto) 0.6 Lymph # (Auto) 0.6 L Chambers # (Auto) 0.6 Eos # (Auto) 0.0 Baso # (Auto) 0.0 Abs Immat Gran (auto) 0.11 H Absolute Neuts (auto) 5.9 Absolute Nucleated RBC 0.000 Nucleated RBC % (auto) 0.0 PT 14.4 H D INR 1.3 H VBG pH 7.52 H VBG pCO2 26 VBG pO2 58 VBG HCO3 22 VBG O2 Saturation 88.0 VBG Base Excess 0.6 Anion Gap 21 H Estim Creat Clear Calc 50.5 Estimated GFR > 60 Random Glucose 134 H Estimat Average Glucose Hemoglobin A1c % Lactic Acid 3.8 H* Lactic Acid F/U @ 2Hr Lactic Acid F/U @ 4Hr Calcium 9.9 D Magnesium 1.2 L* Total Bilirubin 0.5 AST 45 H ALT 12 Alkaline Phosphatase 107 Troponin I High Sens 5.3 D Total Protein 7.7 Albumin 4.3 Urine Color Urine Appearance Urine pH Ur Specific Kake Urine Protein Urine Glucose (UA) Urine Ketones Urine Blood Urine Nitrite Ur Leukocyte Esterase Urine RBC Urine WBC Ur Squamous Epith Cells Urine Bacteria Hyaline Casts Stl C. cayetanensis PCR Stool Rotavirus A PCR Stl Adenov F 40/41 PCR Stool Astrovirus (PCR) Stool Campylobacter PCR Stool Cryptosporidium PCR Stl Sh Tox Pr E STEC PCR Stool E coli O157 PCR Stl Enterotoxigenic E PCR Stool EPEC (PCR) Stool EAEC (PCR) Stl E. histolytica PCR Stool Giardia Lamblia PCR Stl P. shigelloides PCR Stool Salmonella PCR Stool Sapovirus (PCR) Stl Shigella/EIEC PCR St Y.enterocolitica PCR Stool Vibrio (PCR) Stl Vibrio cholerae PCR Stl Norovirus GI/GII PCR COVID-19 ([facility]) Negative COVID-19 Clin Com See Note Influenza Type A (MICHELLE) Negative Influenza Type B (MICHELLE) Negative Influenza A & B Note See Note 05/13/25 05/13/25 05/13/25 19:00 19:42 21:51 MCV MCH MCHC RDW Plt Count MPV Immature Gran % (Auto) Neut % (Auto) Lymph % (Auto) Chambers % (Auto) Eos % (Auto) Baso % (Auto) Lymph # (Auto) Chambers # (Auto) Eos # (Auto) Baso # (Auto) Abs Immat Gran (auto) Absolute Neuts (auto) Absolute Nucleated RBC Nucleated RBC % (auto) PT INR VBG pH VBG pCO2 VBG pO2 VBG HCO3 VBG O2 Saturation VBG Base Excess Anion Gap Estim Creat Clear Calc Estimated GFR Random Glucose Estimat Average Glucose Hemoglobin A1c % Lactic Acid Lactic Acid F/U @ 2Hr 2.1 H* Lactic Acid F/U @ 4Hr 2.0 Calcium Magnesium Total Bilirubin AST ALT Alkaline Phosphatase Troponin I High Sens Total Protein Albumin Urine Color Yellow Urine Appearance Clear Urine pH 5.0 Ur Specific Kake >= 1.030 H Urine Protein 30 (1+) H Urine Glucose (UA) >=1000 H Urine Ketones Negative Urine Blood Small (1+) H Urine Nitrite Positive H Ur Leukocyte Esterase Small (1+) H Urine RBC 0-2 Urine WBC 21-50 H Ur Squamous Epith Cells 3-5 Urine Bacteria Trace Hyaline Casts 3-5 Stl C. cayetanensis PCR Stool Rotavirus A PCR Stl Adenov F 40/41 PCR Stool Astrovirus (PCR) Stool Campylobacter PCR Stool Cryptosporidium PCR Stl Sh Tox Pr E STEC PCR Stool E coli O157 PCR Stl Enterotoxigenic E PCR Stool EPEC (PCR) Stool EAEC (PCR) Stl E. histolytica PCR Stool Giardia Lamblia PCR Stl P. shigelloides PCR Stool Salmonella PCR Stool Sapovirus (PCR) Stl Shigella/EIEC PCR St Y.enterocolitica PCR Stool Vibrio (PCR) Stl Vibrio cholerae PCR Stl Norovirus GI/GII PCR COVID-19 ([facility]) COVID-19 Clin Com Influenza Type A (MICHELLE) Influenza Type B (MICHELLE) Influenza A & B Note 05/14/25 05/14/25 05/14/25 03:51 06:39 10:33 MCV 83.1 MCH 28.2 MCHC 33.9 RDW 13.6 Plt Count 215 MPV 8.4 L Immature Gran % (Auto) 1.7 H Neut % (Auto) 69.2 Lymph % (Auto) 17.9 L Chambers % (Auto) 8.3 Eos % (Auto) 1.6 Baso % (Auto) 1.3 Lymph # (Auto) 1.1 L Chambers # (Auto) 0.5 Eos # (Auto) 0.1 Baso # (Auto) 0.1 Abs Immat Gran (auto) 0.11 H Absolute Neuts (auto) 4.4 Absolute Nucleated RBC 0.000 Nucleated RBC % (auto) 0.0 PT INR VBG pH VBG pCO2 VBG pO2 VBG HCO3 VBG O2 Saturation VBG Base Excess Anion Gap 10 L Estim Creat Clear Calc 70.1 Estimated GFR > 60 Random Glucose 76 Estimat Average Glucose 126 Hemoglobin A1c % 6.0 Lactic Acid Lactic Acid F/U @ 2Hr Lactic Acid F/U @ 4Hr Calcium 8.6 D Magnesium 1.6 Total Bilirubin 0.3 AST 38 H ALT 10 Alkaline Phosphatase 79 Troponin I High Sens Total Protein 5.9 L Albumin 3.2 L Urine Color Urine Appearance Urine pH Ur Specific Kake Urine Protein Urine Glucose (UA) Urine Ketones Urine Blood Urine Nitrite Ur Leukocyte Esterase Urine RBC Urine WBC Ur Squamous Epith Cells Urine Bacteria Hyaline Casts Stl C. cayetanensis PCR Not Detected Stool Rotavirus A PCR Not Detected Stl Adenov F 40/41 PCR Not Detected Stool Astrovirus (PCR) Not Detected Stool Campylobacter PCR Not Detected Stool Cryptosporidium PCR Not Detected Stl Sh Tox Pr E STEC PCR Not Detected Stool E coli O157 PCR Not applicable Stl Enterotoxigenic E PCR Not Detected Stool EPEC (PCR) Not Detected Stool EAEC (PCR) Not Detected Stl E. histolytica PCR Not Detected Stool Giardia Lamblia PCR Not Detected Stl P. shigelloides PCR Not Detected Stool Salmonella PCR Not Detected Stool Sapovirus (PCR) Not Detected Stl Shigella/EIEC PCR Not Detected St Y.enterocolitica PCR Not Detected Stool Vibrio (PCR) Not Detected Stl Vibrio cholerae PCR Not Detected Stl Norovirus GI/GII PCR Not Detected COVID-19 ([facility]) COVID-19 Clin Com Influenza Type A (MICHELLE) Influenza Type B ([facility]HELLE) Influenza A & B Note Microbiology Microbiology Results: Microbiology 05/13/25 19:42 Urine Culture - Preliminary Urine Catheterized - Pat Catheter Gram negative mike Assessment and Plan (1) Urinary tract infection with fever: Status: Acute Plan 79-year-old male with past medical history small-cell lung cancer (nonsmoker, 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 Severe sepsis secondary to GNR UTI Lactic acidosis, fever, tachycardia Pt resuscitated with IVF Follow final blood and urine cx UA positive treated with vanco and zosyn, stop vanco for now Discussed case with Urology>rec stopping SGLPT2 medications in the setting of immunocompromised patient an increased risk for urinary infection Persistent Diarrhea episodes started in ED after admission cdiff pending stool panel negative Contact precautions for now Diabetes mellitus type 2 Sliding scale, ADA diet A1c 6.0 Urology recommended stopping Farxiga as this is contributing to glycosourea increasing risk of urinary infection Hydrocele Follows urology Hypomagnesemia Repleted and resolved GERD Omeperazole [id number] carcinoma of the lung Oncology outpatient Chronic sacral wound Consulted wound care for follow through Turn and postion Q2H when awake DVT prophylaxis with lovenox Do not intubate, okay to resuscitate Quality Stroke Does the patient have a stroke diagnosis?: No Reason for No Anti-thrombotic by Day Two: N/A - Med Ordered VTE Prior VTE?: No VTE Risk Level:: Medical - moderate - high VTE Device Contraindication: N/A - Device Ordered VTE Drug Contraindication: N/A - Med Ordered
--- NOTE | 2025-05-14 16:01 | MHC.CM.PN ---
CM MET WITH PT AND FAMILY WITH A NURSING UNIT MANAGER PT LIVES WITH HIS AND HAS 32 [employer] HOURS PER WEEK PT IS ACTIVE WITH [facility] PT HAS A WALKER, COMMODE, SHOWER CHAIR, AND GRAB BARS FOR DME HCP ON FILE PCP: [facility] DELIVERED DCP: HOME RESUME [facility] AND [facility] FAMILY TO TRANSPORT
[2025-05-14 16:17] LABS: Glucose, Whole Blood 148 mg/dL (60-115)
--- NOTE | 2025-05-14 16:32 | W.PM.IDCN ---
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 He was admitted April 22- due to shaking chills and culture negative. Now he has gram negative rods in urine. Review of Systems Review of Systems: Yes all other systems are reviewed and are negative [facility] Past Medical History Medical History Syncope and collapse 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) HLD (hyperlipidemia) GERD (gastroesophageal reflux disease) Exocrine pancreatic insufficiency Abdominal bloating Renal cyst Loose stools History of revision of total replacement of right knee joint Lung mass High cholesterol Anemia Pleural hemorrhage Diverticulosis Hyponatremia Acute hyponatremia Colon cancer screening Erectile dysfunction Gastritis COVID-19 virus infection Hydrocele Cataract Hypercholesteremia Diabetes BPH (benign prostatic hyperplasia) Hypertension Family History Family History Father Diabetes Mother Diabetes Uterus cancer Mother Cancer Family history: reviewed and not pertinent Surgical History Surgical History History of bilateral knee replacement Visit for wound check S/P chest tube placement Hx of colonoscopy History of prostate surgery Social History Social History Household Members: Spouse Housing: Apartment Housing Other:: Pt lives in senior housing Are you a primary healthcare advisory services manager to a significant other at home: No Do you presently have visiting nurse or other home services: Yes Alcohol intake: never Comment: camera placed as pt is impulsive, attempts to get OOB. Hx falls recently Patient Tobacco Use Status: Never used Tobacco Smoked in Last 30 Days: No Use of substances other than those prescribed or required for medical reasons: No Have you been hit, kicked, punched, or otherwise hurt by someone within the past year? If so, by whom?: No Do you feel safe in your current relationship?: Yes Is there a partner from a previous relationship who is making you feel unsafe now?: No Are you made to feel afraid or neglected: No Yazdanism Healthcare Practices: Congregation Advance Directives: Yes Advance Directives Information Provided: No Advance Directives on File: Yes Advance Directives Date on File: 04/06/25 Do you have a plan to hurt others: No Plan Recently lost weight without trying: No Nutrition Risks: No Nutritional Risk Poor oral hygiene: No service: No Current occupational status: retired Current occupation: right handed Gender identity: Male Meds Allergies Allergy/AdvReac Type Severity Reaction Status Date / Time vancomycin Allergy Intermediate Redness of Verified 05/13/25 15:51 Skin Active Medications: Current Medications Acetaminophen (Acetaminophen 325 Mg Tablet) 650 mg PO Q6H PRN PRN Reason: Pain, Mild 1-3,fever,headache Albuterol/Ipratropium (Albuterol/Iprat 2.5/0.5mg 3 Ml Ampul.Neb) 3 ml INHALE Q4H PRN PRN Reason: Shortness of Breath/Wheezing Lipase/Protease/Amylase (Lipase/Prot/Amylase 24/76/120k 1 Cap Capsule.Dr) 2 cap PO TIDWM [facility] Atorvastatin Calcium (Atorvastatin Calcium 10 Mg Tablet) 10 mg PO DAILY [facility] Calcium Carbonate (Calcium Carbonate 750 Mg Tab.Chew) 750 mg PO Q4H PRN PRN Reason: Heartburn Doxazosin Mesylate (Doxazosin Mesylate 2 Mg Tablet) 4 mg PO BEDTIME [facility]; Protocol Enoxaparin Sodium (Enoxaparin Sodium 40 Mg/0.4 Ml Syringe) 40 mg SUBCUT Q24H [facility] Last Admin: 05/13/25 22:00 Dose: 40 mg Piperacillin Sod/Tazobactam (Sod 3.375 gm/ Sodium Chloride) 50 mls @ 100 mls/hr IV Q6H [facility] Last Infusion: 05/14/25 12:30 Dose: Infused Magnesium Hydroxide (Milk Of Magnesia 30 Ml Oral.Susp) 30 ml PO DAILY PRN PRN Reason: Constipation Magnesium Oxide (Magnesium Oxide 400 Mg Tablet) 400 mg PO DAILY [facility] Melatonin (Melatonin 3 Mg Tablet) 6 mg PO BEDTIME PRN PRN Reason: Insomnia Metformin HCl (Metformin Hcl 1,000 Mg Tablet) 1,000 mg PO BIDWM [facility] Mirtazapine (Mirtazapine 7.5 Mg Tablet) 7.5 mg PO BEDTIME [facility] Multivitamins/Vitamin C (Multivitamin Tablet) 1 tab PO DAILY@1700 [facility] Non-Formulary Medication (Dabrafenib) 150 mg PO BID [facility] Non-Formulary Medication (Trametinib [Mekinist]) 2 mg PO DAILY@0600 [facility] Omeprazole (Omeprazole 20 Mg Capsule.Dr) 20 mg PO BID@0630,1630 PRN PRN Reason: Acid Reflux Ondansetron HCl (Ondansetron Hcl 4 Mg/2 Ml Vial) 4 mg IVPUSH Q8H PRN PRN Reason: Nausea and Vomiting Pharmacy Consult (Consult Rx Vancomycin Dosing) 1 each MISCELLANE DAILY PRN PRN Reason: Consult order Polyethylene Glycol (Polyethylene Glycol 3350 17 Gm Powd.Pack) 17 gm PO DAILY PRN PRN Reason: Constipation Senna (Sennosides 8.6 Mg Tablet) 17.2 mg PO BEDTIME [facility] Last Admin: 05/13/25 21:50 Dose: Not Given Sitagliptin Phosphate (Sitagliptin Phosphate 25 Mg Tablet) 25 mg PO DAILY [facility] Sodium Chloride (0.9 % Sodium Chloride Flush 3 Ml Syringe) 3 ml IVFLUSH QSHIFT [facility] Last Admin: 05/14/25 08:35 Dose: 3 ml Tamsulosin HCl (Tamsulosin Hcl 0.4 Mg Capsule) 0.4 mg PO DAILY [facility] Trazodone HCl (Trazodone Hcl 50 Mg Tablet) 50 mg PO BEDTIME [facility] Home Medications ?Medication ?Instructions ?Recorded ?Confirmed ?Last Taken ?Type atorvastatin 10 mg tablet 10 mg PO DAILY 05/08/20 05/14/25 05/12/25 History blood sugar diagnostic #10 ea 10/04/20 05/04/25 Unknown History lancets 33 gauge #100 ea 10/04/20 05/04/25 Unknown History metformin 1,000 mg tablet 1,000 mg PO BIDWM 10/04/20 05/14/25 05/13/25 History multivitamin 1 tab PO DAILY@1700 10/04/20 05/14/25 05/12/25 History dapagliflozin propanediol 10 mg 10 mg PO DAILY 10/09/21 05/14/25 05/13/25 History tablet (Farxiga) omeprazole 20 mg capsule,delayed 20 mg PO BID@0630,1630 PRN Acid 04/29/24 05/14/25 Unknown History release Reflux dabrafenib 75 mg capsule 150 mg PO BID 04/22/25 05/14/25 05/14/25 History ywdscq-jephtein-itlcbp(pork)24,000-76,000-120,000 2 cap PO TIDWM 04/22/25 05/14/25 05/12/25 History unit capsule,del rel (Creon) mirtazapine 7.5 mg tablet 7.5 mg PO BEDTIME 04/22/25 05/14/25 05/12/25 History sitagliptin phosphate 25 mg tablet 25 mg PO DAILY 04/22/25 05/14/25 05/13/25 History (Januvia) trametinib 2 mg tablet (Mekinist) 2 mg PO DAILY@0600 04/22/25 05/14/25 05/13/25 History acetaminophen 325 mg tablet 325 mg PO QID PRN Pain 05/14/25 05/14/25 Unknown History tamsulosin 0.4 mg capsule 0.4 mg PO DAILY 05/14/25 05/14/25 05/12/25 History Physical Exam Exam: Exam: Pat catheter Vital Signs: Vital Signs: Last Vital Signs Temp 97.9 F 05/14/25 15:40 Pulse 69 05/14/25 15:40 Resp 18 05/14/25 15:40 BP 145/64 H 05/14/25 15:40 Pulse Ox 96 05/14/25 15:40 O2 Del Method Room Air 05/14/25 15:40 BMI result Body Mass Index 23.6 Const: General: cooperative HEENT: Head: Yes normal to inspection Face and sinus: Yes normal facial exam Mouth: Normal oral and palatal mucosa present Teeth and gingiva: dentition normal Eyes: General: appearance normal, both eyes and all related structures Pupils: Equal, round and reactive pupils present Resp: Effort & Inspection: normal respiratory effort Cardio: Rate: regular rate Rhythm: regular rhythm GI: Palpation (GI): Soft to palpation and nontender : General: Yes no CVA tenderness Back/Spine/Pelvis: Back: no CVA tenderness Skin: General skin exam: no rashes or lesions noted Neuro: General: moves all extremities Cranial nerves: Yes Equal, round and reactive pupils present Extrem: General: Yes normal to inspection Psych: Appearance: grossly normal Results Labs 05/14/25 03:51 05/14/25 03:51 Labs: Short CBC 05/13/25 05/14/25 Range/Units 16:24 03:51 WBC 7.3 6.4 (4.8-10.8) X10*3/uL Hgb 14.0 11.8 L (14.0-18.0) g/dl Hct 41.2 L 34.8 L (42.0-52.0) % Plt Count 273 D 215 (160-400) X10*3/uL BMP 05/13/25 05/14/25 16:24 03:51 Sodium 135 133 L Potassium 4.5 D 3.9 Chloride 95 L 107 Carbon Dioxide 24 20 L BUN 21 H 16 Creatinine 0.93 0.67 Calcium 9.9 D 8.6 D Liver Function 05/13/25 05/14/25 Range/Units 16:24 03:51 Total Bilirubin 0.5 0.3 (0.0-1.0) mg/dL AST 45 H 38 H (5-37) U/L ALT 12 10 (0-40) U/L Alkaline Phosphatase 107 79 (39-117) U/L Albumin 4.3 3.2 L (3.5-5.0) g/dL Urine 05/13/25 Range/Units 19:42 Urine Color Yellow Urine Appearance Clear Urine pH 5.0 (5.0-9.0) Ur Specific Randall >= 1.030 H (1.005-1.025) Urine Protein 30 (1+) H (Neg-Trace) mg/dL Urine Glucose (UA) >=1000 H (Negative) mg/dL Microbiology Microbiology Results: Microbiology 05/13/25 19:42 Urine Catheterized - Pat Catheter Urine Culture - Preliminary Gram negative mike Assessment and Plan (1) Acute urinary retention: Status: Acute (2) Urinary tract infection with fever: Status: Acute Plan He has probable UTI as cause. He says since ulcer on anal area several months ago he gets UTIs. He said this is because he has to wear diapers and periarea gets soiled with stool Agree with Zosyn and modify accordingly ,antibiotics for 10 days. Improve periarea hygiene if able. Urology prn need.
[2025-05-14 16:45] LABS: CDiff Gene PCR NEGATIVE (Negative)
[2025-05-14] MEDS: Lipase/Prot/Amylase 24/76/120K 1 CAP CAPSULE.DR 2 CAP PO (16:55)
[2025-05-14] MEDS: Flu Vacc TS2025-26(6mo up)/PF 0.5 ML SYRINGE IM (16:58)
[2025-05-14 20:37] LABS: Glucose, Whole Blood 110 mg/dL (60-115)
[2025-05-15 03:38] VITALS: BP 120/56; PULSE 77; RESP 18; TEMP 36.6; O2SAT 97
[2025-05-15 06:58] LABS: Hematocrit 35.5 % (42.0-52.0); Hemoglobin 12.2 g/dl (14.0-18.0); Mean Corpuscular HGB Conc 34.4 g/dl (31.0-36.0); Mean Corpuscular Hemoglobin 28.0 pg (27.0-33.0); Mean Corpuscular Volume 81.4 fL (80.0-98.0); NRBC Abs Auto 0.000 X10*3/uL (0.0-0.012); NRBC Pct Auto 0.0 /100WBC (0.0-0.2); Platelet Count 245 X10*3/uL (160-400); Red Blood Count 4.36 X10*6/uL (4.60-5.80); White Blood Count 5.2 X10*3/uL (4.8-10.8)
[2025-05-15 07:27] LABS: Blood Urea Nitrogen 9 mg/dL (9-16); Calcium 8.8 mg/dL (8.4-10.2); Creatinine Clr Calc Pharmacy 77.0; Estimated Glomerular Filt Rate > 60
[2025-05-15 07:28] LABS: Glucose, Whole Blood 99 mg/dL (60-115)
[2025-05-15 07:31] VITALS: BP 122/63; PULSE 64; RESP 18; TEMP 37.1; O2SAT 97
[2025-05-15 07:35] LABS: Anion Gap 11 (12-20); Carbon Dioxide 25 mmol/L (22-29); Chloride 102 mmol/L (96-108); Potassium 3.3 mmol/L (3.3-5.1); Sodium 135 mmol/L (135-145)
[2025-05-15] MEDS: Lipase/Prot/Amylase 24/76/120K 1 CAP CAPSULE.DR 2 CAP PO ×3 (07:56→17:28)
[2025-05-15] MEDS: 0.9 % Sodium Chloride Flush 3 ML SYRINGE IVFLUSH ×3 (08:01→20:53)
--- NOTE | 2025-05-15 10:25 | P.CDIM_ITS ---
PROVIDER RESPONSE TEXT: To clarify, the appropriate diagnosis supported by the clinical indicators: Acute QUERY TEXT: PHYSICIAN'S DOCUMENTATION REQUEST Date of Query: 05/15/2025 05:59 AM EDT Patient Name: Lei Drew Admit Date: 05/14/2025 Dear Candy Diallo SHUTTLE DRIVER, A review of the medical record indicates additional documentation may be needed. Please review below and update the documentation accordingly. Clinical Indicators: Progress note 05/14/25 - Lactic acidosis, fever, tachycardia IVF Clarify which of the following accurately represents the acuity of the Lactic acidosis: Possible options might include: Acute Chronic Other (explain) Clinically unable to determine (explain) Thank you, Maylin Reinoso, CCS, CDIS Use of terms such as suspected, likely, concern for, or probable (associated with a specific diagnosis that is being evaluated, monitored, or treated as if it exists) are acceptable and can be coded in the inpatient setting, when documented at the time of discharge. Please use your independent medical judgment in providing your response. THIS QUERY IS PART OF THE PERMANENT MEDICAL RECORD
[2025-05-15 11:17] LABS: Glucose, Whole Blood 108 mg/dL (60-115)
--- NOTE | 2025-05-15 11:49 | MHC.CM.PN ---
PT rec STR. CM met with patient and at bedside to discuss. [facility]. Patient declines both beds. Recently at [facility] and would not return there. Declines STR all together at this time. Prefers to return home w/ , FLOOR CASHIER services (daughter is FLOOR CASHIER) and resumption of [facility] services. They are aware of potential dc tomorrow vs . CM will continue to follow.
--- NOTE | 2025-05-15 15:42 | HO.PM.IMPN ---
Subjective Subjective Date of Service: 05/15/25 Interval History: Patient seen examined at bedside this morning, patient states that he is feeling better, urine culture positive for Serratia. Patient states that at home, uses rolling walker. Review of Systems Review of Systems: Yes all other systems are reviewed and are negative Physical Exam Exam: Exam: General: AxOx3, No acute distress Head: AT/NC ENT: Moist mucous membranes Neck: supple CVS; RRR, S1 S2 normal Lungs: Clear bilateral breath sounds, no wheezes or crackles Abd: Soft non tender, non distended Ext: No edema and no calf tenderness MSK: moving all 4 limbs Skin: No cyanosis or edema Psych: Cooperative with exam Neurology: no focal deficit Uro: pisano in place Vital Signs: Vital Signs: Last Vital Signs Temp 98.7 F 05/15/25 07:31 Pulse 64 05/15/25 07:31 Resp 18 05/15/25 07:31 BP 122/63 05/15/25 07:31 Pulse Ox 97 05/15/25 07:31 O2 Del Method Room Air 05/15/25 07:31 BMI result Body Mass Index 23.6 Objective Data Active Medications Acetaminophen (Acetaminophen 325 Mg Tablet) 650 mg PO Q6H PRN PRN Reason: Pain, Mild 1-3,fever,headache Albuterol/Ipratropium (Albuterol/Iprat 2.5/0.5mg 3 Ml Ampul.Neb) 3 ml INHALE Q4H PRN PRN Reason: Shortness of Breath/Wheezing Lipase/Protease/Amylase (Lipase/Prot/Amylase 24/76/120k 1 Cap Capsule.) 2 cap PO TIDWM [facility] Last Admin: 05/15/25 11:13 Dose: 2 cap Documented By: MAHSA Atorvastatin Calcium (Atorvastatin Calcium 10 Mg Tablet) 10 mg PO DAILY [facility] Last Admin: 05/15/25 07:56 Dose: 10 mg Documented By: MAHSA Calcium Carbonate (Calcium Carbonate 750 Mg Tab.Chew) 750 mg PO Q4H PRN PRN Reason: Heartburn Dextrose (Dextrose 50 % 25 Gm/50 Ml Syringe) 25 gm IVPUSH Q15M PRN; Protocol PRN Reason: per Hypoglycemia Standing Ord. Doxazosin Mesylate (Doxazosin Mesylate 2 Mg Tablet) 4 mg PO BEDTIME [facility]; Protocol Last Admin: 05/14/25 21:09 Dose: 4 mg Documented By: LIAM Enoxaparin Sodium (Enoxaparin Sodium 40 Mg/0.4 Ml Syringe) 40 mg SUBCUT Q24H [facility] Last Admin: 05/14/25 21:12 Dose: 40 mg Documented By: LIAM Glucose (Glucose Gel 15 Gm Gel..Gram.) 15 gm PO Q15M PRN; Protocol PRN Reason: per Hypoglycemia Standing Ord. Ceftriaxone Sodium 1 gm/ (Sodium Chloride) 50 mls @ 100 mls/hr IV Q24H [facility] Insulin Human Lispro (Insulin Lispro 100 Unit/Ml 3 Ml Vial) 0 unit SUBCUT QIDACHS [facility]; Protocol Last Admin: 05/15/25 11:25 Dose: Not Given Documented By: MAHSA Non-Admin Reason: No Insulin Coverage Magnesium Hydroxide (Milk Of Magnesia 30 Ml Oral.Susp) 30 ml PO DAILY PRN PRN Reason: Constipation Magnesium Oxide (Magnesium Oxide 400 Mg Tablet) 400 mg PO DAILY [facility] Last Admin: 05/15/25 07:56 Dose: 400 mg Documented By: MAHSA Melatonin (Melatonin 3 Mg Tablet) 6 mg PO BEDTIME PRN PRN Reason: Insomnia Metformin HCl (Metformin Hcl 1,000 Mg Tablet) 1,000 mg PO BIDWM [facility] Last Admin: 05/15/25 07:56 Dose: 1,000 mg Documented By: MAHSA Mirtazapine (Mirtazapine 7.5 Mg Tablet) 7.5 mg PO BEDTIME [facility] Last Admin: 05/14/25 21:12 Dose: 7.5 mg Documented By: LIAM Multivitamins/Vitamin C (Multivitamin Tablet) 1 tab PO DAILY@1700 [facility] Last Admin: 05/14/25 16:54 Dose: 1 tab Documented By: MAHSA Non-Formulary Medication (Dabrafenib) 150 mg PO BID [facility] Non-Formulary Medication (Trametinib [Mekinist]) 2 mg PO DAILY@0600 [facility] Omeprazole (Omeprazole 20 Mg Capsule.) 20 mg PO BID@0630,1630 PRN PRN Reason: Acid Reflux Ondansetron HCl (Ondansetron Hcl 4 Mg/2 Ml Vial) 4 mg IVPUSH Q8H PRN PRN Reason: Nausea and Vomiting Polyethylene Glycol (Polyethylene Glycol 3350 17 Gm Powd.Pack) 17 gm PO DAILY PRN PRN Reason: Constipation Senna (Sennosides 8.6 Mg Tablet) 17.2 mg PO BEDTIME [facility] Last Admin: 05/14/25 21:16 Dose: Not Given Documented By: LIAM Non-Admin Reason: Patient Condition Contraindication Sitagliptin Phosphate (Sitagliptin Phosphate 25 Mg Tablet) 25 mg PO DAILY [facility] Last Admin: 05/15/25 07:56 Dose: 25 mg Documented By: MAHSA Sodium Chloride (0.9 % Sodium Chloride Flush 3 Ml Syringe) 3 ml IVFLUSH QSHIFT [facility] Last Admin: 05/15/25 08:01 Dose: 3 ml Documented By: MAHSA Tamsulosin HCl (Tamsulosin Hcl 0.4 Mg Capsule) 0.4 mg PO DAILY [facility] Last Admin: 05/15/25 07:56 Dose: 0.4 mg Documented By: MAHSA Trazodone HCl (Trazodone Hcl 50 Mg Tablet) 50 mg PO BEDTIME [facility] Last Admin: 05/14/25 21:12 Dose: 50 mg Documented By: LIAM Labs 05/15/25 06:23 05/15/25 06:23 Labs: Laboratory Results - last 24 hr 05/14/25 05/14/25 05/14/25 15:51 16:13 20:35 MCV MCH MCHC RDW Plt Count MPV Absolute Nucleated RBC Nucleated RBC % (auto) Anion Gap Estim Creat Clear Calc Estimated GFR POC Glucose 148 H 110 Random Glucose Calcium Random Vancomycin C. difficile Tox B Gene NEGATIVE 05/15/25 05/15/25 05/15/25 06:23 07:25 11:12 MCV 81.4 MCH 28.0 MCHC 34.4 RDW 13.4 Plt Count 245 MPV 8.9 L Absolute Nucleated RBC 0.000 Nucleated RBC % (auto) 0.0 Anion Gap 11 L Estim Creat Clear Calc 77.0 Estimated GFR > 60 POC Glucose 99 108 Random Glucose 84 Calcium 8.8 Random Vancomycin C. difficile Tox B Gene 05/15/25 14:45 MCV MCH MCHC RDW Plt Count MPV Absolute Nucleated RBC Nucleated RBC % (auto) Anion Gap Estim Creat Clear Calc Estimated GFR POC Glucose Random Glucose Calcium Random Vancomycin 3.0 L C. difficile Tox B Gene Microbiology Microbiology Results: Microbiology 05/13/25 19:42 Urine Culture - Final Urine Catheterized - Pisano Catheter Serratia marcescens 05/13/25 16:24 Blood Culture - Preliminary Blood - Venous No growth after 24 hours. 05/13/25 16:24 Blood Culture - Preliminary Blood - Venous No growth after 24 hours. 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 Severe sepsis secondary to UTI S/P IVF UA culture positive for serratia sensitive to ceftriaxone d/c vanc and zosyn, will initaite ceftriaxone to complete a total of 10 days. 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 Chronic sacral wound Consulted wound care for follow through Turn and postion Q2H when awake DVT prophylaxis with lovenox Quality Stroke Does the patient have a stroke diagnosis?: No Reason for No Anti-thrombotic by Day Two: N/A - Med Ordered VTE Prior VTE?: No VTE Risk Level:: Medical - moderate - high VTE Device Contraindication: N/A - Device Ordered VTE Drug Contraindication: N/A - Med Ordered
[2025-05-15 16:10] VITALS: BP 119/63; PULSE 69; RESP 12; TEMP 36.1; O2SAT 98
[2025-05-15 16:35] LABS: Glucose, Whole Blood 103 mg/dL (60-115)
[2025-05-15 19:46] VITALS: BP 120/58; PULSE 80; RESP 18; TEMP 36.6; O2SAT 100
[2025-05-15 20:47] LABS: Glucose, Whole Blood 138 mg/dL (60-115)
[2025-05-16 04:00] VITALS: BP 134/64; PULSE 70; RESP 19; TEMP 36.2; O2SAT 95
[2025-05-16 07:17] LABS: Glucose, Whole Blood 107 mg/dL (60-115)
[2025-05-16 07:23] VITALS: BP 113/56; PULSE 58; RESP 18; TEMP 36.5; O2SAT 98
[2025-05-16] MEDS: 0.9 % Sodium Chloride Flush 3 ML SYRINGE IVFLUSH ×3 (08:19→20:09)
[2025-05-16] MEDS: Lipase/Prot/Amylase 24/76/120K 1 CAP CAPSULE.DR 2 CAP PO ×3 (08:19→16:38)
--- NOTE | 2025-05-16 10:52 | P.CDIM_ITS ---
PROVIDER RESPONSE TEXT: To clarify, the appropriate diagnosis supported by the clinical indicators: Pressure Injury coccyx Stage 2 QUERY TEXT: PHYSICIAN'S DOCUMENTATION REQUEST Date of Query: 05/16/2025 09:14 AM EDT Patient Name: Lei Drew Admit Date: 05/14/2025 Dear Ayush Diallo MD, A review of the medical record indicates additional documentation may be needed. Please review below and update the documentation accordingly. Clinical Indicators: Wound care notes dated 05/14/25 - Pressure Injury Stage 2 coccyx - Present on Admission Off load pressure with Q2 hr turns and use of pillows. Apply skin prep allow to dry. Cover with foam dressing to aid in off loading and protection from friction. Progress note 05/15/25 - Chronic sacral wound. Based on the above, could you please provide further information regarding the ulcer/wound/injury: Pressure Injury coccyx Stage 2 Traumatic wound Please specify the location and laterality of the ulcer/wound Diabetic ulcer Please specify the location and laterality of the ulcer/wound Other specified Other (explain) Clinically unable to determine (explain) Thank you, Maylin Reinoso, CCS, CDIS Use of terms such as suspected, likely, concern for, or probable (associated with a specific diagnosis that is being evaluated, monitored, or treated as if it exists) are acceptable and can be coded in the inpatient setting, when documented at the time of discharge. Please use your independent medical judgment in providing your response. THIS QUERY IS PART OF THE PERMANENT MEDICAL RECORD
--- NOTE | 2025-05-16 11:09 | PC.NURSE ---
While patient sitting on edge of bed, patient unable to hold self sitting upright for a long period of time and eventually leans to the side. Patient ambulated from bed to bathroom with 2A and walker - patient very weak and unsteady, chair moved to bathroom doorway due to concern of patient's ability to ambulate to the chair and fall concern. Chair alarm and bed alarm utilized. Call olson within each. Per prior documentation, patient has not required a virtual monitor camera for safety on this admission while on medical surgical unit, patient does not attempt to get out of bed without assistance and uses call olson appropriately.
[2025-05-16 11:33] LABS: Glucose, Whole Blood 135 mg/dL (60-115)
--- NOTE | 2025-05-16 12:01 | MHC.CM.PN ---
Addendum entered by Soha Beltran RN 05/16/25 13:00: Updated PT sent to [facility]. Awaiting auth. Original Note: CM met with patient and daughter at bedside. dry pan operator assisting. Patient now agreeable to STR. Accepted at bed at [facility]. Awaiting updated PT for auth. and RN aware.
--- NOTE | 2025-05-16 14:07 | MHC.CLN ---
F/U PT WITH INCREASED NUTRITION RISK R/T PRESSURE INJURY PO 50-75% DIET RX: 2000DM RECEIVING ENSURE MAX BID TO PROMOTE WOUND HEALING SUPP TO PROVIDE 300KCALS, 60G PROTEIN MONITOR PO INTAKE AND ENCOURAGE SUPPLEMENTS
--- NOTE | 2025-05-16 15:06 | P.PNIM_ITS ---
Subjective Subjective Date of Service: 05/16/25 Interval History: Patient seen examined at bedside this morning, in no acute respiratory distress. Patient tolerated voiding trial, states that he is feeling better, initially patient to be discharged home, however after assessment and counseling given, patient agreed on being discharged to correction facility. Review of Systems Review of Systems: Yes all other systems are reviewed and are negative Physical Exam 2 Exam: Exam: General: AxOx3, No acute distress Head: AT/NC ENT: Moist mucous membranes Neck: supple CVS; RRR, S1 S2 normal Lungs: Clear bilateral breath sounds, no wheezes or crackles Abd: Soft non tender, non distended Ext: No edema and no calf tenderness MSK: moving all 4 limbs Skin: No cyanosis or edema Psych: Cooperative with exam Neurology: no focal deficit Vital Signs: Vital Signs: Last Vital Signs Temp 97.7 F 05/16/25 07:23 Pulse 58 05/16/25 07:23 Resp 18 05/16/25 07:23 BP 113/56 L 05/16/25 07:23 Pulse Ox 98 05/16/25 07:23 O2 Del Method Room Air 05/16/25 07:23 BMI result Body Mass Index 23.6 Objective Data Active Medications Acetaminophen (Acetaminophen 325 Mg Tablet) 650 mg PO Q6H PRN PRN Reason: Pain, Mild 1-3,fever,headache Albuterol/Ipratropium (Albuterol/Iprat 2.5/0.5mg 3 Ml Ampul.Neb) 3 ml INHALE Q4H PRN PRN Reason: Shortness of Breath/Wheezing Lipase/Protease/Amylase (Lipase/Prot/Amylase 24/76/120k 1 Cap Capsule.) 2 cap PO TIDWM REPLACED BY [facility] Last Admin: 05/16/25 12:11 Dose: 2 cap Documented By: ELSA Atorvastatin Calcium (Atorvastatin Calcium 10 Mg Tablet) 10 mg PO DAILY REPLACED BY [facility] Last Admin: 05/16/25 08:19 Dose: 10 mg Documented By: ELSA Calcium Carbonate (Calcium Carbonate 750 Mg Tab.Chew) 750 mg PO Q4H PRN PRN Reason: Heartburn Dextrose (Dextrose 50 % 25 Gm/50 Ml Syringe) 25 gm IVPUSH Q15M PRN; Protocol PRN Reason: per Hypoglycemia Standing Ord. Doxazosin Mesylate (Doxazosin Mesylate 2 Mg Tablet) 4 mg PO BEDTIME [facility] BY [facility]; Protocol Last Admin: 05/15/25 20:50 Dose: 4 mg Documented By: SCOT Enoxaparin Sodium (Enoxaparin Sodium 40 Mg/0.4 Ml Syringe) 40 mg SUBCUT Q24H [facility] Last Admin: 05/15/25 20:50 Dose: 40 mg Documented By: SCOT Glucose (Glucose Gel 15 Gm Gel..Gram.) 15 gm PO Q15M PRN; Protocol PRN Reason: per Hypoglycemia Standing Ord. Ceftriaxone Sodium 1 gm/ (Sodium Chloride) 50 mls @ 100 mls/hr IV Q24H [facility]PL[facility]ED BY [facility] Last Infusion: 05/15/25 16:36 Dose: Infused Documented By: MAHSA Insulin Human Lispro (Insulin Lispro 100 Unit/Ml 3 Ml Vial) 0 unit SUBCUT QIDACHS [facility]PL[facility]ED BY [facility]; Protocol Last Admin: 05/16/25 11:59 Dose: Not Given Documented By: ELSA Non-Admin Reason: No Insulin Coverage Magnesium Hydroxide (Milk Of Magnesia 30 Ml Oral.Susp) 30 ml PO DAILY PRN PRN Reason: Constipation Magnesium Oxide (Magnesium Oxide 400 Mg Tablet) 400 mg PO DAILY [facility] BY [facility] Last Admin: 05/16/25 08:19 Dose: 400 mg Documented By: ELSA Melatonin (Melatonin 3 Mg Tablet) 6 mg PO BEDTIME PRN PRN Reason: Insomnia Metformin HCl (Metformin Hcl 1,000 Mg Tablet) 1,000 mg PO BIDWM [facility]PL[facility] BY [facility] Last Admin: 05/16/25 08:19 Dose: 1,000 mg Documented By: ELSA Mirtazapine (Mirtazapine 7.5 Mg Tablet) 7.5 mg PO BEDTIME REPLAC[facility] BY [facility] Last Admin: 05/15/25 20:50 Dose: 7.5 mg Documented By: SCOT Multivitamins/Vitamin C (Multivitamin Tablet) 1 tab PO DAILY@1700 [facility] Last Admin: 05/15/25 17:28 Dose: 1 tab Documented By: MAHSA Non-Formulary Medication (Dabrafenib) 150 mg PO BID REPLACED BY [facility] Non-Formulary Medication (Trametinib [Mekinist]) 2 mg PO DAILY@0600 [facility] BY [facility] Omeprazole (Omeprazole 20 Mg Capsule.) 20 mg PO BID@0630,1630 PRN PRN Reason: Acid Reflux Ondansetron HCl (Ondansetron Hcl 4 Mg/2 Ml Vial) 4 mg IVPUSH Q8H PRN PRN Reason: Nausea and Vomiting Polyethylene Glycol (Polyethylene Glycol 3350 17 Gm Powd.Pack) 17 gm PO DAILY PRN PRN Reason: Constipation Senna (Sennosides 8.6 Mg Tablet) 17.2 mg PO BEDTIME REPLACED BY [facility] Last Admin: 05/15/25 20:50 Dose: 17.2 mg Documented By: SCOT Sitagliptin Phosphate (Sitagliptin Phosphate 25 Mg Tablet) 25 mg PO DAILY [facility]PL[facility] BY [facility] Last Admin: 05/16/25 08:19 Dose: 25 mg Documented By: ELSA Sodium Chloride (0.9 % Sodium Chloride Flush 3 Ml Syringe) 3 ml IVFLUSH QSHIFT REPLACED BY [facility] Last Admin: 05/16/25 08:19 Dose: 3 ml Documented By: ELSA Tamsulosin HCl (Tamsulosin Hcl 0.4 Mg Capsule) 0.4 mg PO DAILY REPL[facility] BY [facility] Last Admin: 05/16/25 08:19 Dose: 0.4 mg Documented By: ELSA Trazodone HCl (Trazodone Hcl 50 Mg Tablet) 50 mg PO BEDTIME REPLACED BY [facility] Last Admin: 05/15/25 20:50 Dose: 50 mg Documented By: SCOT Labs 05/15/25 06:23 05/15/25 06:23 Labs: Laboratory Results - last 24 hr 05/15/25 05/15/25 05/15/25 14:45 16:28 20:44 POC Glucose 103 138 H Random Vancomycin 3.0 L 05/16/25 05/16/25 07:12 11:28 POC Glucose 107 135 H Random Vancomycin Microbiology Microbiology Results: Microbiology 05/13/25 16:24 Blood Culture - Preliminary Blood - Venous No growth after 48 hours. 05/13/25 16:24 Blood Culture - Preliminary Blood - Venous No growth after 48 hours. 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 Severe sepsis secondary to UTI, improving S/P IVF UA culture positive for serratia sensitive to ceftriaxone d/c vanc and zosyn, will continue ceftriaxone to complete a total of 10 days. 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 Chronic sacral wound Consulted wound care for follow through Turn and postion Q2H when awake DVT prophylaxis with lovenox Quality Stroke Does the patient have a stroke diagnosis?: No Reason for No Anti-thrombotic by Day Two: N/A - Med Ordered VTE Prior VTE?: No VTE Risk Level:: Medical - moderate - high VTE Device Contraindication: N/A - Device Ordered VTE Drug Contraindication: N/A - Med Ordered
[2025-05-16 15:54] VITALS: BP 111/58; PULSE 74; RESP 20; TEMP 36.5; O2SAT 98
[2025-05-16 16:11] LABS: Glucose, Whole Blood 153 mg/dL (60-115)
--- NOTE | 2025-05-16 17:59 | PC.NURSE ---
17:30- Patient had large incontinence in brief that soaked through to pad, patient then up to bedside commode with 2 assist. Patient then returned to bed and bladder scanned for 473cc, straight cath performed and 300 cc concentrated urine removed, sterile technique used and straight cath performed with ease. Previous void time was only 8am soaked brief.
[2025-05-16 19:45] VITALS: BP 128/58; PULSE 68; RESP 19; TEMP 36.5; O2SAT 100
[2025-05-16 20:30] LABS: Glucose, Whole Blood 132 mg/dL (60-115)
--- NOTE | 2025-05-17 02:01 | PC.NURSE ---
Pt inc of large amt of urine bladder scanned for [address]cathed for 450 ml.
[2025-05-17 04:00] VITALS: BP 124/62; PULSE 68; RESP 16; TEMP 36.4; O2SAT 98
[2025-05-17 07:35] VITALS: BP 132/64; PULSE 71; RESP 14; TEMP 36.2; O2SAT 99
[2025-05-17 07:37] LABS: Glucose, Whole Blood 110 mg/dL (60-115)
[2025-05-17] MEDS: Lipase/Prot/Amylase 24/76/120K 1 CAP CAPSULE.DR 2 CAP PO ×3 (07:49→16:24)
[2025-05-17] MEDS: 0.9 % Sodium Chloride Flush 3 ML SYRINGE IVFLUSH ×2 (07:50→15:01)
--- NOTE | 2025-05-17 08:27 | PC.NURSE ---
Pt A&Ox3, pleasant, able to make needs known, plan to d/c to STR Today pending Auth, lungs clear, no resp distress, BS Less than Strait Cath Volume after inc episode this AM. Dressing changed yesterday, CDI. Call olson within reach, two for transfers with walker.
[2025-05-17 11:24] LABS: Glucose, Whole Blood 131 mg/dL (60-115)
--- NOTE | 2025-05-17 11:35 | P.CDIM_ITS ---
PROVIDER RESPONSE TEXT: To clarify, the appropriate diagnosis supported by the clinical indicators: Yes, UTI is associated with / due to indwelling pisano catheter (CAUTI) QUERY TEXT: PHYSICIAN'S DOCUMENTATION REQUEST Date of Query: 05/17/2025 11:17 AM EDT Patient Name: Lei Drew Admit Date: 05/14/2025 Dear Ayush Diallo MD, A review of the medical record indicates additional documentation may be needed. Please review below and update the documentation accordingly. Documentation includes the conditions of UTI and the Indwelling Pisano Catheter: Clinical Indicators: Severe Sepsis secondary to UTI. S/P IVF UA culture positive for serratia sensitive to ceftriaxone. d/c vancomycin and zosyn, will continue ceftriaxone to complete a total of 10 days. H&P 05/13/25 - Family noted Pisano in place and has not been changed since previous admission back in April. Temp 104.5 +UA LA 3.8 Please clarify the relationship between these conditions: If possible, please place the diagnosis within the written Plan of the progress note: Yes, UTI is associated with / due to indwelling pisano catheter (CAUTI) No the UTI is not associated with / due to the indwelling pisano catheter Other (explain) Clinically unable to determine (explain) Thank you, Maylin Reinoso, CCS, CDIS Use of terms such as suspected, likely, concern for, or probable (associated with a specific diagnosis that is being evaluated, monitored, or treated as if it exists) are acceptable and can be coded in the inpatient setting, when documented at the time of discharge. Please use your independent medical judgment in providing your response. THIS QUERY IS PART OF THE PERMANENT MEDICAL RECORD
--- NOTE | 2025-05-17 13:26 | MHC.CM.PN ---
DP: [facility] HAS OBTAINED INSURANCE AUTH AND BLS TRANSPORT HAS BEEN BOOKED FOR 5 PM VIA [facility]. HCP TRISHA AT BEDSIDE AND UPDATED VIA [employer]. RN/PROVIDER MADE AWARE OF PLAN. FINAL IMM DELIVERED.
--- NOTE | 2025-05-17 14:51 | P.DS_ITS ---
DS: Providers Provider Date of Service: 05/17/25 Date of admission: 05/13/25 20:46 Date of discharge: 05/17/25 Primary care physician: ROB Brewer Consults: 05/13/25 20:58 Consult to Urology Routine Consulting Provider: [facility] [place] [facility] Urology Services Reason for consultation: repeat adm UTI w/sepsis, known lg hydrocele, outpt appt elissa, willnot be the Has provider been notified: No 05/13/25 21:54 Consult to Infectious Diseases Routine Consulting Provider: [facility] [place] Infectious Disease Center Reason for consultation: 2nd admission, UTI sepsis Has provider been notified: No 05/14/25 03:39 Consult to Wound Care Routine Consulting Provider: [facility] [place] Wound Care Management Reason for consultation: sacral wound chronic Attending physician on discharge: Ayush Diallo Discharging clinician: Ayush Diallo DS: Diagnosis Discharge Diagnosis (1) 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 patient found to have Severe sepsis with urine culture positive for Serratia, received IV abs until 05/17, to continue w/ PO abs to complete a total of 10 days w/ EoT on 05/23 Severe sepsis secondary to UTI CAUTI, had voiding trial done, able to remove pisano. S/P IVF UA culture positive for serratia sensitive to ceftriaxone, s/p vanc and zosyn, later transitioned to ceftriaxone based on cultures with last IV dose on 05/17. will continue with PO ciprfloxacin 500mg BID w/ EoT on 05/23. Discussed case with Urology>rec stopping SGLPT2 medications in the setting of immunocompromised patient an increased risk for urinary infection Diabetes mellitus type 2 Sliding scale, ADA diet A1c 6.0 Farxiga d/c in the setting of recurrent UTIs. 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 Chronic sacral wound Consulted wound care for follow through Turn and postion Q2H when awake Ambulatory dysfunction and Generalized weakness continue PT/OT, transfer to SNF Time Attestation Discharge Coordination Time (in mins): greater than 40 minutes Quality: Safe Use of Opioids Does Pt have an Active Cancer Diagnosis on the Problem List?: Yes Opioid Measure Date for [facility] Report: 04/17/25 Opioid Measure Time for [facility] Report: 14:52 Quality: Stroke Does the patient have a stroke diagnosis?: No Physical Exam Exam: Exam: General: AxOx3, No acute distress Head: AT/NC ENT: Moist mucous membranes Neck: supple CVS; RRR, S1 S2 normal Lungs: Clear bilateral breath sounds, no wheezes or crackles Abd: Soft non tender, non distended Ext: No edema and no calf tenderness MSK: moving all 4 limbs Skin: No cyanosis or edema Psych: Cooperative with exam Neurology: no focal deficit Vital Signs: Vital Signs: Last Vital Signs Temp 97.2 F 05/17/25 07:35 Pulse 71 05/17/25 07:35 Resp 14 05/17/25 07:35 BP 132/64 05/17/25 07:35 Pulse Ox 99 05/17/25 07:35 O2 Del Method Room Air 05/17/25 07:35 BMI result Body Mass Index 23.6 DS: Data Data Completed and Pending Completed studies during hospitalization [Text1]: Procedures Drainage of Left Pleural Cavity with Drainage Device, Percutaneous Approach (04/29/24) Labs on day of discharge: Laboratory Results - last 24 hr 05/16/25 05/16/25 05/17/25 16:07 20: 07:33 POC Glucose 153 H 132 H 110 05/17/25 11:14 POC Glucose 131 H Preliminary micro results at discharge 05/13/25 16:24 Blood Culture - Preliminary Blood - Venous No growth after 48 hours. 05/13/25 16:24 Blood Culture - Preliminary Blood - Venous No growth after 48 hours. Discharge Plan Discharge Anticipated Discharge Date/Time: 05/17/25 17:00 Patient Disposition: Xfer SNF Discharge Diagnosis: Sepsis, UTI, Small Cell Lung cancer Referrals: [facility] [Outside] - 1 Week Referral Note: TRANSFER FOR SHORT TERM REHAB Hinckley,Abbi, ROUSTABOUT [Primary Care Provider, Medical] - 1 Week Discharge Medications: New ciprofloxacin HCl 500 mg tablet 500 mg PO BID 5 Days Qty: 10 0RF Continued (DME) walker Misc See Rx Instructions .ROUTE .MEDSUPPLY Qty: 1 0RF Rx Instructions: Folding Front wheeled walker with seat terazosin 5 mg capsule 5 mg PO BEDTIME 90 Days Qty: 90 3RF magnesium oxide 400 mg magnesium Capsule 400 mg PO DAILY Qty: 30 1RF omeprazole 20 mg capsule,delayed release(DR/EC) 20 mg PO BID@0630,1630 PRN (Reason: Acid Reflux) ondansetron 8 mg Tablet,Disintegrating 8 mg PO Q8H PRN (Reason: Nausea) Qty: 30 2RF trazodone 50 mg Tablet 50 mg PO BEDTIME Qty: 30 1RF mirtazapine 7.5 mg tablet 7.5 mg PO BEDTIME Januvia 25 mg tablet 25 mg PO DAILY Creon 24,000-76,000 -120,000 unit capsule,delayed release(DR/EC) 2 cap PO TIDWM dabrafenib 75 mg capsule 150 mg PO BID Mekinist 2 mg tablet 2 mg PO DAILY@0600 Rx Instructions: must be taken on empty stomach, at least 1 hr before or 2-3 hrs after meal/food acetaminophen 325 mg Tablet 325 mg PO QID PRN (Reason: Pain) tamsulosin 0.4 mg Capsule 0.4 mg PO DAILY metformin 1,000 mg tablet 1,000 mg PO BIDWM multivitamin Tablet 1 tab PO DAILY@1700 (DME) lancets 33 gauge misc See Rx Instructions topical .MEDSUPPLY Qty: 100 Rx Instructions: As directed (DME) blood sugar diagnostic Strip See Rx Instructions Not Applicable BID Qty: 10 Rx Instructions: As directed atorvastatin 10 mg tablet 10 mg PO DAILY Discontinued Farxiga 10 mg tablet 10 mg PO DAILY Discharge Orders: Discharge Order (Routine); Ordered 05/17/25 Ordered By: Ayush Diallo Activity on Discharge: As tolerated Stand Alone Forms: Patient Portal Discharge page Print Language: Kazakh Care Plan Goals: continue PO abs, PT/OT, follow up with primary care provider Health Concerns: recurrent urinary tract infections, lung cancer Plan of Treatment: continue ciprofloxacin twice a day for an extra 5 days, encourage PO fluid intake. 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 patient found to have Severe sepsis with urine culture positive for Serratia, received IV abs until 05/17, to continue w/ PO abs to complete a total of 10 days w/ EoT on 05/23 Patient Instructions: Urinary Tract Infection in Men (DC)
[2025-05-17 16:00] VITALS: BP 139/69; PULSE 82; RESP 19; TEMP 36.2; O2SAT 98
[2025-05-17 16:43] LABS: Glucose, Whole Blood 100 mg/dL (60-115)
== END 2025-05-17 18:21 | disposition skilled nursing facility (03) | DRG 698 ==
LOC: HO.ED 20:23 → HO.EDOVER 21:04 → HO.S3 05-14 07:44
PROVIDERS: Nurse Practitioner Acute Care; Physician Assistant Medical; Urology; Admitting Provider Nurse Practitioner Family; Emergency Provider Emergency Medicine; PCP Registered Nurse; Visit Provider Student in an Organized Health Care Education/Training Program
DX: T83.511A Infection and inflammatory reaction due to indwelling urethral catheter, initial encounter (principal); A41.9 Sepsis, unspecified organism; R65.20 Severe sepsis without septic shock; C34.90 Malignant neoplasm of unspecified part of unspecified bronchus or lung; D84.821 Immunodeficiency due to drugs; D84.81 Immunodeficiency due to conditions classified elsewhere; N39.0 Urinary tract infection, site not specified; R19.7 Diarrhea, unspecified; L89.152 Pressure ulcer of sacral region, stage 2; B96.89 Other specified bacterial agents as the cause of diseases classified elsewhere; K21.9 Gastro-esophageal reflux disease without esophagitis; E83.42 Hypomagnesemia; T38.3X5A Adverse effect of insulin and oral hypoglycemic [antidiabetic] drugs, initial encounter; Y73.8 Miscellaneous gastroenterology and urology devices associated with adverse incidents, not elsewhere classified; Z87.440 Personal history of urinary (tract) infections; Z20.822 Contact with and (suspected) exposure to COVID-19; Z79.84 Long term (current) use of oral hypoglycemic drugs; Z79.899 Other long term (current) drug therapy
CPT/HCPCS: 36415; 71045; 80048; 80053; 80202; 81001; 81003; 82803; 82947; 83036; 83605; 83735; 84484; 85025; 85027; 85610; 87040; 87086; 87088; 87186; 87493; 87502; 87507; 87635; 90656; 93005; 97162; 97530; 99285; J0131; J0696; J1650; J2543; J3374; J3475; J7120

== ENCOUNTER → 2025-05-13 15:43 | Outpatient (BNV) | payer OTHER, SELFPAY | PROVIDERS: Emergency Provider Emergency Medicine; PCP Registered Nurse; Visit Provider Radiology Diagnostic Radiology | DX: R53.1 Weakness (principal) | CPT/HCPCS: 71045 ==

== ENCOUNTER → 2025-05-13 15:43 | Outpatient (BNV) | payer OTHER, SELFPAY | PROVIDERS: Admitting Provider Nurse Practitioner Family; Emergency Provider Emergency Medicine; PCP Registered Nurse; Visit Provider Internal Medicine | DX: I45.10 Unspecified right bundle-branch block (principal) | CPT/HCPCS: 93010 ==

== ENCOUNTER → 2025-05-13 20:46 | Outpatient (BNV) | payer OTHER, SELFPAY | PROVIDERS: Admitting Provider Nurse Practitioner Family; Emergency Provider Emergency Medicine; PCP Registered Nurse; Visit Provider Urology | DX: T83.511A Infection and inflammatory reaction due to indwelling urethral catheter, initial encounter (principal); N39.0 Urinary tract infection, site not specified | CPT/HCPCS: 99222 ==

== ENCOUNTER → 2025-05-13 20:46 | Outpatient (BNV) | payer OTHER, SELFPAY | PROVIDERS: Admitting Provider Nurse Practitioner Family; Emergency Provider Emergency Medicine; PCP Registered Nurse; Visit Provider Nurse Practitioner Family | DX: N39.0 Urinary tract infection, site not specified (principal) | CPT/HCPCS: 99223; 99232 ==

== ENCOUNTER → 2025-05-13 20:46 | Outpatient (BNV) | payer OTHER, SELFPAY | PROVIDERS: Admitting Provider Nurse Practitioner Family; Emergency Provider Emergency Medicine; PCP Registered Nurse; Visit Provider Internal Medicine | DX: R33.8 Other retention of urine (principal); N39.0 Urinary tract infection, site not specified | CPT/HCPCS: 99222 ==

== ENCOUNTER 2025-06-15 11:07 | Inpatient (IN) | payer OTHER, SELFPAY ==
[2025-06-15] VITALS (22 sets, daily range): BP systolic 108–141; BP diastolic 50–76; PULSE 104–128; RESP 15–20; TEMP 36.6–38.6; O2SAT 96–100; BMI 19.3; BMI 19.1
--- NOTE | ~2025-06-15 | CT_ITS ---
CLINICAL HISTORY: increasing lactic acid, urinary retention, sepsis CT abdomen and pelvis without contrast Comparison: CT/SR - CT ABDOMEN PELVIS W IV CON - 04/21/25 22:27 EDT Findings: Bibasilar dependent subsegmental atelectasis. Trace bilateral pleural effusions. Left perinephric stranding, left hydronephrosis and hydroureter. Right renal upper pole 0.1 cm nonobstructing nephrolith. The gallbladder, liver and spleen right kidney, pancreas and adrenals are within normal limits. No bowel obstruction, pneumoperitoneum, or pneumatosis. The prostate is within normal limits. The appendix is within normal limits. Pat catheter in the decompressed bladder. No acute fracture. [id number] osteopenia. 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 Calcified coronary atherosclerotic disease. IMPRESSION: 1. Left hydronephrosis and hydroureter with perinephric stranding; left pyelonephritis. 2. Right upper pole 0.1 cm nonobstructing nephrolith. 3. Bibasilar dependent subsegmental atelectasis. 4. Calcified coronary atherosclerotic disease. 5. Trace bilateral pleural effusions. This document has been electronically signed by: Ludin Montes De Oca MD on 06/15/2025 18:18:49
--- NOTE | ~2025-06-15 | XR_ITS ---
EXAMINATION: XR CHEST CLINICAL INFORMATION: SEPSIS COMPARISON: Previous chest x-ray and chest CT most recent April 2025 TECHNIQUE: Frontal view of the chest was obtained. FINDINGS: Lungs are clear. No consolidation or pulmonary edema. No pleural effusion or pneumothorax. Cardiac and mediastinal contours are stable. Calcification in the aortic arch. Degenerative changes of the spine and shoulders. XR/XR chest 1V IMPRESSION: No evidence for acute disease in the chest. Electronically signed by: Faviola Mcclendon MD 06/15/2025 11:39 AM NIKKI
--- NOTE | 2025-06-15 11:32 | ED.GENADULT ---
HPI - General Adult General Chief complaint: General Medical Stated complaint: lung cancer, cough, diarrhea, weak, ams History of Present Illness ED Provider: slick HPI narrative: 80M DC yest from SNF to home, Lung CA hx. FTT, family says not safe, cant care for self at home. Fever on arrival. Poor historian Related Data Home Medications ?Medication ?Instructions ?Recorded ?Confirmed atorvastatin 10 mg tablet 10 mg PO DAILY 05/08/20 06/15/25 blood sugar diagnostic #10 ea 10/04/20 05/04/25 lancets 33 gauge #100 ea 10/04/20 05/04/25 metformin 1,000 mg tablet 1,000 mg PO BID 10/04/20 06/15/25 multivitamin 1 tab PO DAILY@1700 10/04/20 06/15/25 [id number](pork)24,000-76,000-120,000 2 cap PO TIDWM 04/22/25 06/15/25 unit capsule,del rel (Creon) mirtazapine 7.5 mg tablet 7.5 mg PO BEDTIME 04/22/25 06/15/25 sitagliptin phosphate 25 mg tablet 25 mg PO DAILY 04/22/25 06/15/25 (Januvia) tamsulosin 0.4 mg capsule 0.4 mg PO DAILY 05/14/25 06/15/25 acetaminophen 500 mg tablet 500 mg PO TID PRN Pain 06/15/25 06/15/25 carbidopa 25 mg-levodopa 100 mg 1 tab PO DAILY 06/15/25 06/15/25 tablet dabrafenib 75 mg capsule (Tafinlar) 150 mg PO BID 06/15/25 06/15/25 famotidine 20 mg tablet 20 mg PO DAILY 06/15/25 06/15/25 sennosides 8.6 mg tablet (senna) 8.6 mg PO DAILY PRN Constipation 06/15/25 06/15/25 Previous Rx's ?Medication ?Instructions ?Recorded walker #1 ea 04/30/20 terazosin 5 mg capsule 5 mg PO BEDTIME 90 days #90 caps 02/21/25 ondansetron 8 mg disintegrating 8 mg PO Q8H PRN Nausea #30 tabs 03/30/25 tablet trazodone 50 mg tablet 50 mg PO BEDTIME #30 tabs 04/20/25 magnesium oxide 400 mg PO DAILY #30 caps 05/16/25 trametinib 2 mg tablet (Mekinist) 2 mg PO DAILY@0600 #60 tabs 05/26/25 Allergies Allergy/AdvReac Type Severity Reaction Status Date / Time vancomycin Allergy Intermediate Redness of Verified 06/15/25 11:18 Skin metformin AdvReac 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 Verified 06/16/25 09:53 [facility] Past Medical History Medical History Syncope and collapse 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) HLD (hyperlipidemia) GERD (gastroesophageal reflux disease) Exocrine pancreatic insufficiency Abdominal bloating Renal cyst Loose stools History of revision of total replacement of right knee joint Lung mass High cholesterol Anemia Pleural hemorrhage Diverticulosis Hyponatremia Acute hyponatremia Colon cancer screening Erectile dysfunction Gastritis COVID-19 virus infection Hydrocele Cataract Hypercholesteremia Diabetes BPH (benign prostatic hyperplasia) Hypertension Surgical History History of bilateral knee replacement Visit for wound check S/P chest tube placement Hx of colonoscopy History of prostate surgery Family History Family History Father Diabetes Mother Diabetes Uterus cancer Mother Cancer Social History Social History Household Members: Spouse Housing: Apartment Housing Other:: Pt lives in senior housing Are you a primary career and guidance counselor to a significant other at home: No Do you presently have visiting nurse or other home services: Yes (SUPPORT TEAM MEMBER everyday) Alcohol intake: never Comment: camera placed as pt is impulsive, attempts to get OOB. Hx falls recently Patient Tobacco Use Status: Never used Tobacco Advance Directives Date on File: 04/06/25 service: No Current occupational status: retired Current occupation: right handed Gender identity: Male Physical Exam ED Exam Exam: EXAM: Gen: Alert, dry oral mucosa ill-appearing demented or confused Head: Atraumatic Eyes: Anicteric, slightly pale looking ENT: Dry. Neck: Supple. Skin: ?No observable rash or bruising on exposed or examined skin Respiratory: Breathing comfortably, No distress.Clear to auscultation bilaterally, symmetric chest expansion, No wheeze, rales, ronchi. Cardiovascular: Tachy and regular No murmurs or rub. Well perfused periphery, warm extremities. No edema. ? Abdominal: No focal tenderness. Soft, no objective distension. No palpable masses or obvious organomegaly. ?No guarding, no rebound tenderness or other peritoneal findings. : No flank tenderness. Neuro: Alert. Gross movement of all extremities intact. ? Psych: Calm. Cooperative. MSK: No grossly visible deformity. Vital signs: See flowsheet Vital Signs: Vital Signs - 24 hr 06/15/25 15:52 06/15/25 16:17 06/15/25 16:54 Pulse Rate 127 H 128 H 120 H Respiratory Rate Blood Pressure 127/65 125/62 139/50 L Pulse Oximetry 99 Oxygen Delivery Method Room Air 06/15/25 17:25 06/15/25 17:33 Pulse Rate 124 H 117 H Respiratory Rate 18 18 Blood Pressure Pulse Oximetry 99 Oxygen Delivery Method Room Air BMI result Body Mass Index 19.3 Course Reevaluation(s) Reevaluation #1: 1:33 PM 06/15/2025 (Dr. Hakan Diehl): Revisited the PREFABRICATED HOUSES TRIMMER versus aggressive care discussion with healthcare proxy at the bedside as well as involving the patient. There has been a delay in the initiation of aggressive sepsis care including 30 cc/kg bolus antibiotics etcetera due to this family conversation that took place prior to this time from about 12:45 until 13:30 the family was discussing whether they wanted to pursue aggressive treatment. After revisiting this they decided to initiate antibiotics and aggressive IV fluids therefore there was a delay. The patient meets severe sepsis criteria white count 25 he has got a severe NEELIMA, elevated lactate. We will initiate antibiotics fluids at this time Reevaluation #2: 5:58 PM 06/15/2025 (Dr. Hakan Diehl): Discussed the case with the hospitalist who agrees for admission.. The patient's potassium has improved after hydration and hyperkalemic treatment. He remained slightly tachycardic in the rate about 110 to 120s. Fever difficult to control. He has remained hemodynamically stable mean arterial pressures has been over 70. Patient does however have had elevating lactic acid slight elevating anion gap, subtle downtrending bicarbonate of unclear cause. After discussion with the internal medicine team they preferred an abdominal CT to exclude bowel ischemia however the patient does not have any abdominal pain and I think has a capacity to express this. He hospitalist did note metformin on the patient's med list given the acute kidney injury the patient could be develop metformin induced lactic acidosis. Medications Administered Generic Name Dose Route Start Last Admin Trade Name Freq PRN Reason Stop Dose Admin Acetaminophen 650 mg 06/15/25 21:00 06/15/25 21:12 Acetaminophen Supp 650 Mg Supp.Rect MA 650 mg Q6H PRN Administration Fever Lipase/Protease/Amylase 2 cap 06/16/25 08:00 06/16/25 12:51 Lipase/Prot/Amylase 24/76/120k 1 Cap Capsule.Dr PO Not Given TIDWM JOHNATHAN Dextrose 25 gm 06/15/25 18:39 06/16/25 07:30 Dextrose 50 % 25 Gm/50 Ml Syringe IVPUSH 25 gm Q15M PRN Administration per Hypoglycemia Standing Ord. Protocol Dextrose/Sodium Chloride 1,000 mls @ 100 mls/hr 06/16/25 08:00 06/16/25 08:06 D5ns IVCONT 100 mls/hr .Q10H JOHNATHAN Administration Insulin Human Lispro 0 unit 06/15/25 21:00 06/16/25 12:50 Insulin Lispro 100 Unit/Ml 3 Ml Vial SUBCUT Not Given QIDACHS JOHNATHAN Protocol Magnesium Oxide 400 mg 06/16/25 09:00 06/16/25 08:07 Magnesium Oxide 400 Mg Tablet PO Not Given DAILY JOHNATHAN Sodium Chloride 3 ml 06/16/25 00:00 06/16/25 08:07 0.9 % Sodium Chloride Flush 3 Ml Syringe IVFLUSH 3 ml QSHIFT JOHNATHAN Administration Discontinued Medications Generic Name Dose Route Start Last Admin Trade Name Freq PRN Reason Stop Dose Admin Albuterol Sulfate 7.5 mg/ 10 mg 06/15/25 13:35 06/15/25 13:55 Albuterol Sulfate 2.5 mg INHALE 06/15/25 13:36 10 mg ONCE ONE Administration Furosemide 40 mg 06/15/25 13:35 06/15/25 14:05 Furosemide 40 Mg/4 Ml Vial IVPUSH 06/15/25 13:36 40 mg STAT STA Administration Protocol Ceftriaxone Sodium 2 gm/ 100 mls @ 200 mls/hr 06/15/25 11:27 06/15/25 12:36 Sodium Chloride IV 06/15/25 11:56 Infused ONCE ONE Infusion Lactated Ringer's 1,782 mls @ 1,782 mls/hr 06/15/25 13:32 06/15/25 15:49 Lr 30 ml/kg infuse over 1 hr (1782 ml) 06/15/25 14:31 Infused IV Infusion .Q1H ONE Vancomycin HCl 1,500 mg/ 500 mls @ 333.333 mls/hr 06/15/25 13:35 06/15/25 15:47 Sodium Chloride IV 06/15/25 15:04 Infused POSTOP ONE Infusion Calcium Gluconate 1 gm in 50 mls @ 50 mls/hr 06/15/25 13:35 06/15/25 15:04 Calcium Gluconate IV 06/15/25 14:34 Infused ONCE ONE Infusion Acetaminophen 1,000 mg in 100 mls @ 400 mls/hr 06/15/25 15:36 06/15/25 16:18 Ofirmev IV 06/15/25 15:50 Infused ONCE ONE Infusion Sodium Chloride 500 mls @ 50 mls/hr 06/15/25 16:15 06/15/25 18:49 Ns IV 06/16/25 02:14 Infused .Q10H JOHNATHAN Infusion Piperacillin Sod/Tazobactam 50 mls @ 100 mls/hr 06/15/25 19:00 06/16/25 12:43 Sod 2.25 gm/ Sodium Chloride IV Infused Q8H JOHNATHAN Infusion Lactated Ringer's 1,000 mls @ 100 mls/hr 06/15/25 18:45 06/16/25 08:07 Lr IVCONT Infused .Q10H JOHNATHAN Infusion Lactated Ringer's 500 mls @ 999 mls/hr 06/15/25 22:15 06/15/25 23:16 Lr IV 06/15/25 22:45 Infused .Q31M STA Infusion Sodium Zirconium Cyclosilicate 10 gm 06/15/25 13:38 06/15/25 14:26 Sodium Zirconium Cyclosilicate 10 Gm Powd.Pack PO 06/15/25 13:39 10 gm ONCE ONE Administration Medical Decision Making Medical Decision Making MDM Narrative: Medical Decision Making: [age] with malaise. Complicated recent history including urinary retention and recent UTI sepsis with Serratia growth. Patient looks moderately ill slightly tachycardic no hypotension. He has got a fever here. Sepsis was activated and he meets criteria for severe sepsis with NEELIMA likely secondary to urinary retention, 550 mL in the bladder and mild left hydronephrosis. No right-sided hydronephrosis. Pat placed in the ED. See course for details of delay in aggressive sepsis care due to family healthcare proxy conversation to determine how aggressive care versus PREFABRICATED HOUSES TRIMMER versus hospice eventually it was decided to initiate aggressive care. 30 cc/kg bolus broad-spectrum IV antibiotics. Pat placement for comfort and urinary retention. Admit to the hospital. The patient is found to have hyperkalemia likely secondary to urinary retention/NEELIMA. We will treat with Lasix, fluid to encourage diuresis, calcium, higher dose albuterol. ECG shows right bundle-branch block no peaked T-waves Preliminary Favored Differential Diagnosis: NEELIMA, hyperkalemia, metabolic derangement, sepsis, severe sepsis, UTI, urologic obstruction among additional considered etiologies Testing Interpreted Independently: ?ECG sinus rhythm right bundle-branch block no peaked T-waves or hyperkalemic changes Radiology or Lab testing Results Reviewed: ?See below for details Consults: ?See below for details Independent Historians/External Chart Reviews: ?See below for details Social Determinants of Health Impacting MDM/Planning: ?See below for details Lab Data 06/15/25 11:57 06/16/25 06:16 Labs: Lab Results 06/15/25 06/15/25 06/15/25 Range/Units 11:57 12:21 12:52 WBC 25.3 H (4.8-10.8) X10*3/uL RBC 4.62 (4.60-5.80) X10*6/uL Hgb 13.1 L (14.0-18.0) g/dl Hct 39.6 L (42.0-52.0) % MCV 85.7 (80.0-98.0) fL MCH 28.4 (27.0-33.0) pg MCHC 33.1 (31.0-36.0) g/dl RDW 17.4 H (11.0-16.0) % Plt Count 382 D (160-400) X10*3/uL MPV 8.1 L (9.4-12.4) fL Immature Gran % (Auto) Cancelled Neut % (Auto) Cancelled Lymph % (Auto) Cancelled [place] % (Auto) Cancelled Eos % (Auto) Cancelled Baso % (Auto) Cancelled Lymph # (Auto) Cancelled [place] # (Auto) Cancelled Eos # (Auto) Cancelled Baso # (Auto) Cancelled Abs Immat Gran (auto) Cancelled Absolute Neuts (auto) Cancelled Absolute Nucleated RBC 0.000 (0.0-0.012) X10*3/uL Nucleated RBC % (auto) 0.0 (0.0-0.2) /100WBC Neutrophils % (Manual) 89 H (45-73) % Band Neutrophils % 7 H (3-5) % Lymphocytes % (Manual) 3 L (20-40) % Metamyelocytes % 1 % Abs Neuts (Manual) 24.3 H (2.0-8.3) X10*3/uL Lymphocytes # (Manual) 0.8 L (1.2-4.9) X10*3/uL Metamyelocytes # 0.3 X10*3/uL Toxic Vacuolation PRESENT Platelet Estimate NORMAL (NORMAL) Plt Morphology Comment NORMAL RBC Morphology NOTED [place] Cells 2+ (3-5) /OIF Smear Tech's Comments MANUAL DIFF PT 15.9 H (11.2-13.5) SEC INR 1.3 H (0.9-1.1) Sodium 134 L (135-145) mmol/L Potassium 6.1 H* D (3.3-5.1) mmol/L Chloride 105 (96-108) mmol/L Carbon Dioxide 15 L (22-29) mmol/L Anion Gap 20 (12-20) BUN 53 H (9-16) mg/dL Creatinine 3.06 H (0.5-1.4) mg/dL Estim Creat Clear Calc 16.4 Estimated GFR 20 Random Glucose 183 H (60-115) mg/dL Lactic Acid 3.9 H* (0.5-2.0) mmol/L Lactic Acid F/U @ 2Hr (0.5-2.0) mmol/L Calcium 10.0 D (8.4-10.2) mg/dL Total Bilirubin 0.9 (0.0-1.0) mg/dL Urine Color Yellow Urine Appearance Turbid Urine pH >= 9.0 (5.0-9.0) Ur Specific [place] 1.015 (1.005-1.025) Urine Protein 300 (3+) H (Neg-Trace) mg/dL Urine Glucose (UA) Negative (Negative) mg/dL Urine Ketones Negative (Negative) mg/dL Urine Blood Large (3+) H (Negative) Urine Nitrite Negative (Negative) Ur Leukocyte Esterase Large (3+) H (Negative) Urine RBC >20 H (0-2) /HPF Urine WBC >50 H (0-5) /HPF Ur Squamous Epith Cells 0-2 (0-2) /HPF Urine Bacteria 4+ (None Seen) Hyaline Casts 3-5 (0-2) /LPF 06/15/25 06/15/25 06/15/25 Range/Units 14:28 16:17 16:17 WBC (4.8-10.8) X10*3/uL RBC (4.60-5.80) X10*6/uL Hgb (14.0-18.0) g/dl Hct (42.0-52.0) % MCV (80.0-98.0) fL MCH (27.0-33.0) pg MCHC (31.0-36.0) g/dl RDW (11.0-16.0) % Plt Count (160-400) X10*3/uL MPV (9.4-12.4) fL Immature Gran % (Auto) Neut % (Auto) Lymph % (Auto) [place] % (Auto) Eos % (Auto) Baso % (Auto) Lymph # (Auto) [place] # (Auto) Eos # (Auto) Baso # (Auto) Abs Immat Gran (auto) Absolute Neuts (auto) Absolute Nucleated RBC (0.0-0.012) X10*3/uL Nucleated RBC % (auto) (0.0-0.2) /100WBC Neutrophils % (Manual) (45-73) % Band Neutrophils % (3-5) % Lymphocytes % (Manual) (20-40) % Metamyelocytes % % Abs Neuts (Manual) (2.0-8.3) X10*3/uL Lymphocytes # (Manual) (1.2-4.9) X10*3/uL Metamyelocytes # X10*3/uL Toxic Vacuolation Platelet Estimate (NORMAL) Plt Morphology Comment RBC Morphology [place] Cells /OIF Smear Tech's Comments PT (11.2-13.5) SEC INR (0.9-1.1) Sodium 136 (135-145) mmol/L Potassium 5.0 5.0 (3.3-5.1) mmol/L Chloride 106 (96-108) mmol/L Carbon Dioxide 13 L (22-29) mmol/L Anion Gap 22 H (12-20) BUN 53 H (9-16) mg/dL Creatinine 2.98 H (0.5-1.4) mg/dL Estim Creat Clear Calc 16.8 Estimated GFR 20 Random Glucose 125 H (60-115) mg/dL Lactic Acid 4.9 H* (0.5-2.0) mmol/L Lactic Acid F/U @ 2Hr 7.1 H* (0.5-2.0) mmol/L Calcium 9.0 D (8.4-10.2) mg/dL Total Bilirubin (0.0-1.0) mg/dL Urine Color Urine Appearance Urine pH (5.0-9.0) Ur Specific [place] (1.005-1.025) Urine Protein (Neg-Trace) mg/dL Urine Glucose (UA) (Negative) mg/dL Urine Ketones (Negative) mg/dL Urine Blood (Negative) Urine Nitrite (Negative) Ur Leukocyte Esterase (Negative) Urine RBC (0-2) /HPF Urine WBC (0-5) /HPF Ur Squamous Epith Cells (0-2) /HPF Urine Bacteria (None Seen) Hyaline Casts (0-2) /LPF 06/15/ Range/Units 16:55 WBC (4.8-10.8) X10*3/uL RBC (4.60-5.80) X10*6/uL Hgb (14.0-18.0) g/dl Hct (42.0-52.0) % MCV (80.0-98.0) fL MCH (27.0-33.0) pg MCHC (31.0-36.0) g/dl RDW (11.0-16.0) % Plt Count (160-400) X10*3/uL MPV (9.4-12.4) fL Immature Gran % (Auto) Neut % (Auto) Lymph % (Auto) [place] % (Auto) Eos % (Auto) Baso % (Auto) Lymph # (Auto) [place] # (Auto) Eos # (Auto) Baso # (Auto) Abs Immat Gran (auto) Absolute Neuts (auto) Absolute Nucleated RBC (0.0-0.012) X10*3/uL Nucleated RBC % (auto) (0.0-0.2) /100WBC Neutrophils % (Manual) (45-73) % Band Neutrophils % (3-5) % Lymphocytes % (Manual) (20-40) % Metamyelocytes % % Abs Neuts (Manual) (2.0-8.3) X10*3/uL Lymphocytes # (Manual) (1.2-4.9) X10*3/uL Metamyelocytes # X10*3/uL Toxic Vacuolation Platelet Estimate (NORMAL) Plt Morphology Comment RBC Morphology [place] Cells /OIF Smear Tech's Comments PT (11.2-13.5) SEC INR (0.9-1.1) Sodium (135-145) mmol/L Potassium (3.3-5.1) mmol/L Chloride (96-108) mmol/L Carbon Dioxide (22-29) mmol/L Anion Gap (12-20) BUN (9-16) mg/dL Creatinine (0.5-1.4) mg/dL Estim Creat Clear Calc Estimated GFR Random Glucose (60-115) mg/dL Lactic Acid (0.5-2.0) mmol/L Lactic Acid F/U @ 2Hr 8.8 H* (0.5-2.0) mmol/L Calcium (8.4-10.2) mg/dL Total Bilirubin (0.0-1.0) mg/dL Urine Color Urine Appearance Urine pH (5.0-9.0) Ur Specific [place] (1.005-1.025) Urine Protein (Neg-Trace) mg/dL Urine Glucose (UA) (Negative) mg/dL Urine Ketones (Negative) mg/dL Urine Blood (Negative) Urine Nitrite (Negative) Ur Leukocyte Esterase (Negative) Urine RBC (0-2) /HPF Urine WBC (0-5) /HPF Ur Squamous Epith Cells (0-2) /HPF Urine Bacteria (None Seen) Hyaline Casts (0-2) /LPF Critical Care Time Critical Care Time Critical Care Time: Yes Total Critical Care Time: 30 Attestation: ED Critical Care: Authorized and Performed by: Hakan Diehl MD Total critical care time: Approximately 30 min Due to a high probability of clinically significant, life threatening deterioration, the patient required my highest level of preparedness to intervene emergently and I personally spent this critical care time directly and personally managing the patient. This critical care time included obtaining a history; examining the patient; pulse oximetry; ordering and review of studies; arranging urgent treatment with development of a management plan; evaluation of patient's response to treatment; frequent reassessment; and, discussions with other providers. This critical care time was performed to assess and manage the high probability of imminent, life-threatening deterioration that could result in multi-organ failure. It was exclusive of separately billable procedures and treating other patients and teaching time. Discharge Plan Discharge Clinical Impression: Severe sepsis, Acute hyperkalemia, Acute kidney injury Patient Disposition: Admitted As Inpatient Interventions: Admission Worksheet (ED) Last Done: 06/15/25 18:18 Discharge Date/Time: 06/15/25 20:15
[2025-06-15 12:07] LABS: Hematocrit 39.6 % (42.0-52.0); Hemoglobin 13.1 g/dl (14.0-18.0); Mean Corpuscular HGB Conc 33.1 g/dl (31.0-36.0); Mean Corpuscular Hemoglobin 28.4 pg (27.0-33.0); Mean Corpuscular Volume 85.7 fL (80.0-98.0); NRBC Abs Auto 0.000 X10*3/uL (0.0-0.012); NRBC Pct Auto 0.0 /100WBC (0.0-0.2); Platelet Count 382 X10*3/uL (160-400); Red Blood Count 4.62 X10*6/uL (4.60-5.80); White Blood Count 25.3 X10*3/uL (4.8-10.8)
--- NOTE | 2025-06-15 12:23 | PC.NURSE ---
Arrived via ems , per ems report family wants patient to be admitted to hospice. Unclear if family wants full medical work up - md aware stating to start work up until we are able to get in contact with family. Patient difficult sick, multiple techs attempting to obtain labs, 2nd iv line placed to obtain cultures. Daughter at bedside speaking with hospice.
[2025-06-15 12:29] LABS: Anion Gap 20 (12-20); Blood Urea Nitrogen 53 mg/dL (9-16); Calcium 10.0 mg/dL (8.4-10.2); Carbon Dioxide 15 mmol/L (22-29); Chloride 105 mmol/L (96-108); Creatinine Clr Calc Pharmacy 16.4; Estimated Glomerular Filt Rate 20; Potassium 6.1 mmol/L (3.3-5.1); Sodium 134 mmol/L (135-145)
[2025-06-15 12:35] LABS: Band Neutrophils Percent 7 % (3-5); Lymphocytes Absolute Manual 0.8 X10*3/uL (1.2-4.9); Lymphocytes Percent Manual 3 % (20-40); Metamyelocytes Absolute 0.3 X10*3/uL; Metamyelocytes Percent 1 %; Neutrophils Absolute Manual 24.3 X10*3/uL (2.0-8.3); Neutrophils Percent Manual 89 % (45-73)
[2025-06-15 12:36] LABS: Appearance Urine Turbid; Glucose Urine UA Negative (Negative); PH >= 9.0 (5.0-9.0); Specific Gravity - Urine 1.015 (1.005-1.025); UMIC TRIGGER UACC YES
[2025-06-15 12:38] LABS: Burr Cells 2+ (3-5) /OIF; RBC Morphology NOTED; Toxic Vacuolation PRESENT
--- NOTE | 2025-06-15 12:38 | PC.NURSE ---
MD at bedside with patients daughter Maya, naval aircrewman avionics`s, and manager special events. MD reviewed clinical situation with daughter who does not want aggressive medical treatment at this time but needs to speak with other family members regarding plan of care. Daughter will speak to family and let MR/ RN know how they would like to proceed
[2025-06-15 12:41] LABS: UACC Culture Trigger YES
--- OUTSIDE RECORDS SUMMARY | 2025-06-15 12:51 | XMS_ITS | Encounter Summary ---
Author Organization [facility] Address [address] [place] [phone] Phone Care Team Providers Care Finisher Special Stocks Name Role Phone Name, Navjot RIBERA Primary Care Provider [phone] PaxtonAbbi robb Primary Care Provider [phone] Encounter Details Date Type Department Care Team (Latest Contact Info) Description 05/23/2025 Lab Requisition [facility] Lab Main [address] [place], [place] [id number] Dee Dee Geronimo MD [address] [place] [address] [phone] [email or web address] Sepsis, unspecified organism; Type 2 diabetes mellitus without complications Social History Tobacco Use Types Packs/Day Years Used Date Smoking Tobacco: Never Assessed Education Answer Date Recorded Are you interested in more education? Not on sergio e 05/18/2025 Are you concerned about learning? Not on file 05/18/2025 No 05/18/2025 No 05/18/2025 Food Answer Date Recorded Within the past 6 months we worried whether our food would run out before we got money to buy more. Unable to assess 025 Within the past 6 months the food we bought just didn't last and we didn't have enough money to get more. Unable to assess 05/24/2025 Residential Stability Answer Date Recor ded What is your housing situation today? Unable to assess 05/24/2025 How many times have you moved in the past 12 wed ths? Unable to assess 05/24/2025 Paying for Meds Answer Date Recorded Do you have trouble paying for medicines? Unable to assess 05/24/2025 Paying Utility Bills Answer Date Record ed Do you have trouble paying y our heating or electricity bill? Unable to assess 05/24/2025 Transportation Answer Date Recorded Has the lack of transportati on kept you from medical appointments or from getting medications? Unable to assess 05/24/2025 Digital Access Answer Date Recorded No 05/24/2025 No 05/24/2025 Do you have reliable internet access at home? Un able to assess 05/24/2025 Do you have a device (e.g., phone, tablet, computer) with a working camera? Unable to assess 05/24/2025 Intimate Partner Violence Answer Date R ecorded Are you denied basic needs s uch as food, clothing, or medical care? Patient unable to respond 05/24/2025 In the past 12 months have y ou been in a relationship with a person who hurts, threatens, or tries to control you? Patient unable to respond 05/24/2025 Are you denied basic needs s uch as food, clothing, or medical care? Patient unable to respond 05/24/2025 In the past 12 months have y ou been in a relationship with a person who hurts, threatens, or tries to control you? Patient unable to respond 05/24/2025 Sex and Gender Information Value Date Recorded Sex Assigned at Not on file Legal Sex Male 8:58 AM EDT Gender Identity Not on file Sexual Orientation Not on file documented as of this encounter Functional Status * Calculated C-SSRS Risk Score (Lifetime/Recent) Answer Date of Assessment Author No Risk Indicated 05/25/2025 3:15 AM Jillian Mayen RN * [place] Suicide Severity Rating Scale (Screener/Recent Self-Report) Question Answer Date of Assessment Author 1. Wish to be (Past 1 Month) No 025 3:15 AM Jillian Mayen RN 2. Non-Specific Active Suici tommy Thoughts (Past 1 Month) No 05/25/2025 3:15 AM Marimar Mayen RN 6. Suicidal Behavior (Lifetime) No 3:15 AM Jillian Mayen RN documented as of this encounter Plan of Treatment Not on file documented as of this encounter Procedures Procedure Name Priority Date/Time Associated Diagnosis Comments CBC AND DIFFERENTIAL Today 05/23/2025 8:22 PM EST Sepsis, unspecified organism Type 2 diabetes mellitus without complications CBC AND DIFFERENTIAL Today 05/23/2025 8:22 PM EST Sepsis, unspecified organism Type 2 diabetes mellitus without complications BASIC METABOLIC PANEL (BMP) Today 05/23/2025 8:22 PM EST Sepsis, unspecified organism Type 2 diabetes mellitus without complications documented in this encounter Results * (ABNORMAL) CBC and Differential (05/23/2025 8:22 PM EST) WBC 11.09(H) 4.00 - 11.00 K/uL 05/23/2025 8:32 PM [facility] RBC 4.01(L) 4.50 - 5.90 M/uL 05/23/2025 8:32 PM [facility] Hemoglobin 11.4(L) 13.5 - 17.5 g/dL 05/23/2025 8:32 PM [facility] Hematocrit 33.7(L) 41.0 - 53.0 % 05/23/2025 8:32 PM [facility] MCV 84.0 80.0 - 100.0 fL 05/23/2025 8:32 PM [facility] MCH 28.4 27.0 - 31.0 pg 05/23/2025 8:32 PM [facility] MCHC 33.8 32.0 - 36.0 g/dL 05/23/2025 8:32 PM [facility] MPV 8.4 8.4 - 12.0 fL 05/23/2025 8:32 PM [facility] RDW-CV 14.1 11.5 - 14.5 % 05/23/2025 8:32 PM [facility] PLT 311 150 - 450 K/uL 05/23/2025 8:32 PM [facility] Neutrophils 66.7 % 05/23/2025 8:32 PM [facility] Lymphocytes 12.8 % 05/23/2025 8:32 PM [facility] Monocytes 17.7 % 05/23/2025 8:32 PM [facility] Eosinophils 0.6 % 05/23/2025 8:32 PM [facility] Basophils 0.5 % 05/23/2025 8:32 PM [facility] Imm Grans 1.7 % 05/23/2025 8:32 PM [facility] NRBC 0.0 <=0.0 /100 WBCs 05/23/2025 8:32 PM [facility] Absolute Neutrophils 7.39 1.92 - 7.60 K/uL 05/23/2025 8:32 PM [facility] Absolute Lymphocytes 1.42 0.72 - 4.10 K/uL 05/23/2025 8:32 PM [facility] Absolute Monocytes 1.96(H) 0.16 - 1.10 K/uL 05/23/2025 8:32 PM [facility] Absolute Eosinophils 0.07 0.00 - 0.50 K/uL 05/23/2025 8:32 PM [facility] Absolute Basophils 0.06 0.00 - 0.15 K/uL 05/23/2025 8:32 PM [facility] Absolute Imm Grans 0.19(H) 0.00 - 0.09 K/uL 05/23/2025 8:32 PM [facility] Absolute NRBC 0.00 <=0.00 K cells/uL 05/23/2025 8:32 PM [facility] Absolute Neutrophils 7.39 1.92 - 7.60 K/uL 05/23/2025 8:32 PM [facility] Comment:Automated cell count . Manual ANC may differ if performed. Diff Type Auto 05/23/2025 8:32 PM [facility] Blood (Blood) 05/23/2025 8:2 2 PM EST 05/23/2025 8:25 PM EST us Dee Dee Geronimo MD LAB BLOOD BKR ORDERABLES Final Result [facility] [address] [place] [address] * (ABNORMAL) Basic Metabolic Panel (BMP) (05/23/2025 8:22 PM EST) Sodium 125(L) 136 - 145 mmol/L 05/23/2025 9:43 PM [facility] Potassium 4.1 3.4 - 5.1 mmol/L 05/23/2025 9:43 PM [facility] Chloride 91(L) 98 - 107 mmol/L 05/23/2025 9:43 PM [facility] CO2 19(L) 20 - 31 mmol/L 05/23/2025 9:43 PM [facility] Anion Gap 15 3 - 17 mmol/L 05/23/2025 9:43 PM [facility] BUN 23 6 - 23 mg/dL 05/23/2025 9:43 PM [facility] Creatinine 0.80 0.60 - 1.30 mg/dL 05/23/2025 9:43 PM [facility] eGFR 91 >59 mL/min/1.7 3m2 05/23/2025 9:43 PM [facility] Comment:Estimated glomerular filtration rate calculated using the CKD-EPI refit equation. Glucose 156(H) 70 - 99 mg/dL 05/23/2025 9:43 PM [facility] Calcium 8.9 8.5 - 10.5 mg/dL 05/23/2025 9:43 PM [facility] Blood (Blood) 05/23/2025 8:2 2 PM EST 05/23/2025 8:25 PM EST Dee Dee Geronimo MD LAB BLOOD BKR ORDERABLES Final Result Performing Organization Address City/State/[facility] Co de Phone Number [address] [address] documented in this encounter Visit Diagnoses Diagnosis Sepsis, unspecified organism Type 2 diabetes mellitus without complications documented in this encounter Additional Health Concerns Infection Onset Date Last Indicated Resolved Time Resp-Risk Comment:Per note documentation 05/24/2025 05/24/2025 9:58 AM EST Resp-Risk 05/25/2025 05/25/2025 06/05/2025 7:06 PM EST documented as of this encounter Care Teams Finisher Special Stocks Relationship Specialty Start Date End Date Name, Navjot, MD [address] [place] [address] PCP - General 05/18/25 05/23/25 PaxtonAbbi FNP [address] [place] [address] PCP - General Nurse Practitioner 05/24/25 documented as of this encounter Additional Source Comments The information contained in this document represents components of the legal health record. It is not the complete legal health record.[facility]
--- OUTSIDE RECORDS SUMMARY | 2025-06-15 12:51 | XMS_ITS | Encounter Summary ---
Author Organization [facility] Address [address] [place] [address] Phone Care Team Providers Care Marketing Finance Specialist Name Role Phone Name, Navjot RIBERA Primary Care Provider [phone] DefianceAbbi robb Primary Care Provider [phone] Encounter Details Date Type Department Care Team (Late st Contact Info) Description 05/23/2025 Lab Requisition [facility] Lab Main [address] [place], [place] [phone] Dee Dee Geronimo MD [address] [place] [phone] [email or web address] Elevated white blood cell count, unspecified Social History Tobacco Use Types Packs/Day Years [...] 05/25/2025 3:15 AM Jillian Mayen RN * [place] Suicide Severity Rating Scale (Screener/Recent Self-Report) Question [...] Procedure Name Priority Date/Time Associated Diagnosis Comments URINE CULTURE Today 05/23/2025 11:20 AM EST Elevated white blood cell count, unspecified URINALYSIS Today 05/23/2025 11:20 AM EST Elevated white blood cell count, unspecified documented in this encounter Results * Urinalysis (05/23/2025 11:20 AM EST) Color Yellow Yellow 05/23/2025 5:29 PM EST [facility] Clarity Clear Clear 05/23/2025 5:29 PM EST [facility] Glucose Negative Negative 05/23/2025 5:29 PM EST [facility] Bilirubin Urine Negative Negative 5:29 PM EST [facility] Ketone Urine Negative Negative 05/23/2025 5:29 PM EST [facility] Specific [place] 1.025 1.001 - 1.035 05/23/2025 5:29 PM EST [facility] Blood Negative Negative 05/23/2025 5:29 PM EST [facility] pH 6.0 5.0 - 8.0 05/23/2025 5:29 PM EST [facility] Protein Negative Negative 05/23/2025 5:29 PM EST [facility] Nitrites Negative Negative 05/23/2025 5:29 PM [facility] Leukocyte Esterase Negative Negative 05/23/2025 5:29 PM [facility] Urobilinogen Negative Negative 05/23/2025 5:29 PM [facility] Urine (Urine, Voided) 05/23/2025 11:20 AM EST 05/23/2025 4:59 PM EST us Dee Dee Geronimo MD LAB URINE ORDERABLES Final Res ult [address] [address] * Urine Culture (05/23/2025 11:20 AM EST) Urine Culture/Test No growth 05/25/2025 11:50 AM EST [facility] Urine (Urine, Voided) 05/23/2025 11:20 AM EST 05/23/2025 4:59 PM EST Dee Dee Geronimo MD LAB MICROBIOLOGY CULTURE ORDER RUFINA Final Result [facility] [address] [place] [address] documented in this encounter Visit Diagnoses Diagnosis Elevated white blood cell count, unspecified documented in this encounter Additional Health Concerns Infection Onset Date Last Indicated Resolved Time Resp-Risk Comment:Per note documentation 05/24/2025 05/24/2025 9:58 AM EST Resp-Risk 05/25/2025 05/25/2025 06/05/2025 7:06 PM EST documented as of this encounter Care Teams Marketing Finance Specialist Relationship Specialty Start Date End Date Name, MD Navjot [address] [place] [address] PCP - General 05/18/25 05/23/25 DefianceAbbi FNP [address] [place] [address] PCP - General Nurse Practitioner 05/24/25 documented as of this encounter Additional Source Comments The information contained in this document represents components of the legal health record. It is not the complete legal health record.[facility]
--- OUTSIDE RECORDS SUMMARY | 2025-06-15 12:51 | XMS_ITS | Encounter Summary ---
Author Organization [facility] Address [address] [place] [address] Phone Care Team Providers Care [employer] Driver Name Role Phone Abbi Saha ROB Primary Care Provider [phone] Encounter Details Date Type Department Care Team (Late st Contact Info) Description 05/24/2025 Procedure Pass [facility], Ct Scan - [facility] [address] [place] [address] Social History Tobacco Use Types Packs/Day Years [...] 05/25/2025 3:15 AM Jillian Mayen RN * [place] Suicide Severity Rating Scale (Screener/Recent Self-Report) Question [...] on file documented as of this encounter Visit Diagnoses Not on filedocumented in this encounter Additional Health Concerns Infection Onset Date Last Indicated Resolved Time Resp-Risk Comment:Per note documentation 05/24/2025 05/24/2025 9:58 AM EST Resp-Risk 05/25/2025 05/25/2025 06/05/2025 7:06 PM EST documented as of this encounter Care Teams [employer] Driver Relationship Specialty Start Date End Date Abbi aShaROB [address] [place] [address] PCP - General Nurse Practitioner 05/24/25 documented as of this encounter Additional Source Comments The information contained in this document represents components of the legal health record. It is not the complete legal health record.[facility]
--- OUTSIDE RECORDS SUMMARY | 2025-06-15 12:51 | XMS_ITS ---
Author Name Dineshmikaela TSERING, RN, RD, [place] Address [address] [place] [address] Phone [phone] [facility] Care Team Providers Care Chief Pharmacist Name Role Phone Adeola Campuzano Unavailable [phone] Unavailable Unavailable Unavailable [facility] [place] Unavailable TYELR LARES Unavailable [phone] [facility] Unavailable [phone] [facility] Unavailable [phone] Reason for Referral Not Available Allergies, adverse [...] 2023-01-05 No Data Available OneTouch Delica Plus [id number] Miscellaneous TEST BLOOD SUGAR TWICE DAILY 2022-08-20 [...] 5 mg Cap TAKE 1 CAPSULE BY [facility] AT BEDTIME 2023-06-15 No Data Available Problem [...] intervention: Encourage increased fluid intakeCiprofloxacin 500mg BID [id number] Tylenol for pain or fever Encounters Encounters Type Facility Date of Service Diagnosis/Co mplaint Unlisted special service; to be used for medical record reviews and reporting CPTII codes (1111F, etc) [facility], ([place] 05/[place]/2024 Encounter for other specifie d aftercare Unlisted special service; to be used for medical record reviews and reporting CPTII codes (1111F, etc) [facility] 05[place]/2024 Social History Sex Male History of Procedures Procedures Service Procedure code Service date Servicing provider Phone# Unlisted special service; to be used for medical record reviews and reporting CPTII codes (1111F, etc) [address] 2024-05-28 No Data Available No Data Availa ble Medications prescribed in hospital were reviewed and reconciled against what they were taking prior to admission during today's visit. (1111F) 1111F 2024-05-28 No Data Available No Data Availa ble Functional Status No Information Mental Status No Information Assessments Not Available Plan of Care Not Available
--- OUTSIDE RECORDS SUMMARY | 2025-06-15 12:51 | XMS_ITS | Encounter Summary ---
Author Organization [facility] Address [address] [place] [address] Phone Care Team Providers Care Wound Care Specialist Name Role Phone Name, Navjot RIBERA Primary Care Provider [phone] TopekaAbbi robb Primary Care Provider [phone] Encounter Details Date Type Department Care Team (Late st Contact Info) Description 05/21/2025 Lab Requisition [facility] Lab Main [address] [place], [place] [phone] Dee Dee Geronimo MD [address] [place] [id number] [email or web address] Illness, unspecified Social History Tobacco Use Types Packs/Day [...] on file documented as of this encounter Plan of Treatment Not on file documented as of this encounter Procedures Procedure Name Priority Date/Time Associated Diagnosis Comments COMPREHENSIVE METABOLIC PANEL (CMP) Today 05/21/2025 11:42 AM EST Illness, unspecified CBC Today 05/21/2025 11:42 AM EST Illness, unspecified documented in this encounter Results * (ABNORMAL) CBC (05/21/2025 11:42 AM EST) WBC 11.74(H) 4.00 - 11.00 K/uL 05/21/2025 3:33 PM [facility] RBC 4.49(L) 4.50 - 5.90 M/uL 05/21/2025 3:33 PM [facility] Hemoglobin 12.7(L) 13.5 - 17.5 g/dL 05/21/2025 3:33 PM [facility] Hematocrit 39.2(L) 41.0 - 53.0 % 05/21/2025 3:33 PM [facility] MCV 87.3 80.0 - 100.0 fL 05/21/2025 3:33 PM [facility] MCH 28.3 27.0 - 31.0 pg 05/21/2025 3:33 PM [facility] MCHC 32.4 32.0 - 36.0 g/dL 05/21/2025 3:33 PM [facility] PLT 385 150 - 450 K/uL 05/21/2025 3:33 PM [facility] MPV 9.2 8.4 - 12.0 fL 05/21/2025 3:33 PM [facility] RDW-CV 13.9 11.5 - 14.5 % 05/21/2025 3:33 PM [facility] Absolute NRBC 0.00 <=0.00 K cells/uL 05/21/2025 3:33 PM [facility] NRBC 0.0 <=0.0 /100 WBCs 05/21/2025 3:33 PM [facility] Blood (Blood) 05/21/2025 11: 42 AM EST 05/21/2025 12:43 PM EST us Dee Dee Geronimo MD LAB BLOOD BKR ORDERABLES Final Result [facility] [address] [place] [address] * (ABNORMAL) Comprehensive Metabolic Panel (CMP) (05/21/2025 11:42 AM EST) Sodium 132(L) 136 - 145 mmol/L 05/21/2025 5:20 PM [facility] Potassium 4.7 3.4 - 5.1 mmol/L 05/21/2025 5:20 PM [facility] Chloride 95(L) 98 - 107 mmol/L 05/21/2025 5:20 PM [facility] CO2 25 20 - 31 mmol/L 05/21/2025 5:20 PM [facility] Anion Gap 12 3 - 17 mmol/L 05/21/2025 5:20 PM [facility] BUN 20 6 - 23 mg/dL 05/21/2025 5:20 PM [facility] Creatinine 0.60 0.60 - 1.30 mg/dL 05/21/2025 5:20 PM [facility] eGFR 99 >59 mL/min/1.7 3m2 05/21/2025 5:20 PM [facility] Comment:Estimated glomerular filtration rate calculated using the CKD-EPI refit equation. Glucose 127(H) 70 - 99 mg/dL 05/21/2025 5:20 PM [facility] Calcium 10.1 8.5 - 10.5 mg/dL 05/21/2025 5:20 PM [facility] AST 18 <40 U/L 05/21/2025 5:20 PM [facility] ALT 15 <50 U/L 05/21/2025 5:20 PM [facility] Alkaline Phosphatase 115 40 - 130 U/L 05/21/2025 5:20 PM [facility] Bilirubin, Total 0.4 0.0 - 1.2 mg/dL 05/21/2025 5:20 PM [facility] Total Protein 7.1 6.4 - 8.3 g/dL 05/21/2025 5:20 PM [facility] Albumin 4.1 3.5 - 5.2 g/dL 05/21/2025 5:20 PM [facility] Globulin 3.0 1.9 - 4.1 g/dL 05/21/2025 5:20 PM [facility] Blood (Blood) 05/21/2025 11: 42 AM EST 05/21/2025 12:43 PM EST us Dee Dee Geronimo MD LAB BLOOD BKR ORDERABLES Final Result [facility] [address] [place] [address] documented in this encounter Visit Diagnoses Diagnosis Illness, unspecified documented in this encounter Additional Health Concerns Infection Onset Date Last Indicated Resolved Time Resp-Risk Comment:Per note documentation 05/24/2025 05/24/2025 9:58 AM EST Resp-Risk 05/25/2025 05/25/2025 06/05/2025 7:06 PM EST documented as of this encounter Care Teams Wound Care Specialist Relationship Specialty Start Date End Date Name, MD Navjot [address] [place] [address] PCP - General 05/18/25 05/23/25 [place]opekaAbbi FNP [address] [place] [address] PCP - General Nurse Practitioner 05/24/25 documented as of this encounter Additional Source Comments The information contained in this document represents components of the legal health record. It is not the complete legal health record.[facility]
--- OUTSIDE RECORDS SUMMARY | 2025-06-15 12:52 | XMS_ITS | Encounter Summary ---
Author Organization [employer] Address [address] [facility] [address] [place] [address] Care Team Providers Care Nuclear Power Plant Engineer Name Role Phone Sandy Torrez MD Primary Care Provider Unava ilable [facility] TEST CONSULTANT Primary Care Provider [phone] Gogo Palacio TEST CONSULTANT Primary Care Provider [phone] [facility] Primary Care Provider [phone] Encounter Details Date Type Department Care Team (Latest Contact Info) Description 06/23/2021 Abstract [facility] CONVERSIONS Dental, Provider, DDS Social History [...] Care Team (Late st Contact Info) Description 06/22/2025 10:00 AM EST Office Visit [facility] MEDICINE [address] [place], [place] [phone] Rosanna Cohen DO [address] [place], [place] [phone] 09/10/2025 2:15 PM EST Office Visit [facility] ADULT DENTAL [address] [place], [place] [phone] Nusrat Lynch [address] [place] [address] documented as of this encounter Visit Diagnoses Not on filedocumented in this encounter Care Teams Nuclear Power Plant Engineer Relationship Specialty Start Date End Date Sandy Torrez MD PCP - General Family Medicine 01/09/20 06/22/22 Maria AAbbi robb FNP [address] [place] [address] PCP - General Family Medicine 06/23/22 03/28/23 Gogo Palacio FNP [address] [place] [address] PCP - General Family Medicine 03/29/23 03/31/23 ChambersAbbi FNP [address] [place] [address] PCP - General Family Medicine 04/01/23 [facility] 05/08/24 documented as of this encounter
--- OUTSIDE RECORDS SUMMARY | 2025-06-15 12:52 | XMS_ITS | Encounter Summary ---
Author Organization [facility] Address [address] [place] [phone] Phone Care Team Providers Care Battery Container Tester Aluminum Name Role Phone Abbi Saha BLOCK HACKER Primary Care Provider [phone] Encounter Details Date Type Department Care Team (Latest Contact Info) Description 06/04/2025 Lab Requisition [facility] [address] [place] [address] Dee Dee Geronimo MD [address] [place] [id number] [email or web address] Hypo-osmolality and hyponatremia; Syndrome of inappropriate secretion of antidiuretic hormone Social History Tobacco Use Types Packs/Day Years Used Date Smoking Tobacco: Never Education Answer Date Recorded Are you interested [...] have you moved in the past 12 mon ths? Unable to assess 05/24/2025 Paying for [...] Diagnosis Comments COMPREHENSIVE METABOLIC PANEL (CMP) Today 06/04/2025 6:10 AM EST Hypo-osmolality and hyponatremia Syndrome of inappropriate secretion of antidiuretic hormone CBC Today 06/04/2025 6:10 AM EST Hypo-osmolality and hyponatremia Syndrome of inappropriate secretion of antidiuretic hormone MAGNESIUM Today 06/04/2025 6:10 AM EST Hypo-osmolality and hyponatremia Syndrome of inappropriate secretion of antidiuretic hormone documented in this encounter Results * (ABNORMAL) CBC (06/04/2025 6:10 AM EST) WBC 7.00 4.00 - 11.00 K/uL 06/04/2025 10:13 AM [facility] RBC 3.57(L) 4.50 - 5.90 M/uL 06/04/2025 10:13 AM [facility] Hemoglobin 10.0(L) 13.5 - 17.5 g/dL 06/04/2025 10:13 AM [facility] Hematocrit 29.8(L) 41.0 - 53.0 % 06/04/2025 10:13 AM [facility] MCV 83.5 80.0 - 100.0 fL 06/04/2025 10:13 AM [facility] MCH 28.0 27.0 - 31.0 pg 06/04/2025 10:13 AM [facility] MCHC 33.6 32.0 - 36.0 g/dL 06/04/2025 10:13 AM [facility] PLT 317 150 - 450 K/uL 06/04/2025 10:13 AM [facility] MPV 8.5 8.4 - 12.0 fL 06/04/2025 10:13 AM [facility] RDW-CV 14.8(H) 11.5 - 14.5 % 06/04/2025 10:13 AM [facility] Absolute NRBC 0.00 <=0.00 K cells/uL 06/04/2025 10:13 AM [facility] NRBC 0.0 <=0.0 /100 WBCs 06/04/2025 10:13 AM [facility] Blood (Blood) 06/04/2025 6:1 0 AM EST 06/04/2025 7:27 AM EST us Dee Dee Geronimo MD LAB BLOOD BKR ORDERABLES Final Result [facility] [address] [place], [place] [id number] * (ABNORMAL) Magnesium (06/04/2025 6:10 AM EST) Magnesium 1.0(L) 1.7 - 2.6 mg/dL 06/04/2025 11:24 AM [facility] Blood (Blood) 06/04/2025 6:1 0 AM EST 06/04/2025 7:27 AM EST us Dee Dee Geronimo MD LAB BLOOD BKR ORDERABLES Final Result [facility] [address] [place] [address] * (ABNORMAL) Comprehensive Metabolic Panel (CMP) (06/04/2025 6:10 AM EST) Sodium 128(L) 136 - 145 mmol/L 06/04/2025 11:24 AM [facility] Potassium 4.3 3.4 - 5.1 mmol/L 06/04/2025 11:24 AM [facility] Chloride 95(L) 98 - 107 mmol/L 06/04/2025 11:24 AM [facility] CO2 21 20 - 31 mmol/L 06/04/2025 11:24 AM [facility] Anion Gap 12 3 - 17 mmol/L 06/04/2025 11:24 AM [facility] BUN 14 6 - 23 mg/dL 06/04/2025 11:24 AM [facility] Creatinine 0.60 0.60 - 1.30 mg/dL 06/04/2025 11:24 AM [facility] eGFR 98 >59 mL/min/1.7 3m2 06/04/2025 11:24 AM [facility] Comment:Estimated glomerular filtration rate calculated using the CKD-EPI refit equation. Glucose 100(H) 70 - 99 mg/dL 06/04/2025 11:24 AM [facility] Calcium 9.0 8.5 - 10.5 mg/dL 06/04/2025 11:24 AM [facility] AST 15 <40 U/L 06/04/2025 11:24 AM [facility] ALT 12 <50 U/L 06/04/2025 11:24 AM [facility] Alkaline Phosphatase 115 40 - 130 U/L 06/04/2025 11:24 AM [facility] Bilirubin, Total 0.3 0.0 - 1.2 mg/dL 06/04/2025 11:24 AM EST [facility] Total Protein 5.9(L) 6.4 - 8.3 g/dL 06/04/2025 11:24 AM EST [facility] Albumin 3.4(L) 3.5 - 5.2 g/dL 06/04/2025 11:24 AM EST [facility] Globulin 2.5 1.9 - 4.1 g/dL 06/04/2025 11:24 AM EST [facility] Blood (Blood) 06/04/2025 6:1 0 AM EST 06/04/2025 7:27 AM EST us DeeD ee Geronimo MD LAB BLOOD BKR ORDERABLES Final Result Performing Organization Address City/State/[facility] Co de Phone Number [address] [phone] documented in this encounter Visit Diagnoses Diagnosis Hypo-osmolality and hyponatremia 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 It is not the complete legal health record.[facility]
--- OUTSIDE RECORDS SUMMARY | 2025-06-15 12:52 | XMS_ITS | Encounter Summary ---
Author Organization [facility] Address [address] [place] [address] Phone Care Team Providers Care Physical Chemist Name Role Phone Abbi Saha APPEALS BOARD REFEREE Primary Care Provider [phone] Encounter Details Date Type Department Care Team (Latest Contact Info) Description 06/11/2025 Lab Requisition [facility] Main [address] [place] [address] Dee Dee Geronimo MD [address] [place] [id number] [email or web address] Syndrome of inappropriate secretion of antidiuretic hormone; Hydrocele, unspecified; Type 2 diabetes mellitus without complications; Benign prostatic hyperplasia without lower urinary tract symptoms Social History Tobacco Use Types Packs/Day Years [...] Diagnosis Comments COMPREHENSIVE METABOLIC PANEL (CMP) Today 06/11/2025 6:39 AM EST Syndrome of inappropriate secretion of antidiuretic hormone Hydrocele, unspecified Type 2 diabetes mellitus without complications Benign prostatic hyperplasia without lower urinary tract symptoms CBC Today 06/11/2025 6:39 AM EST Syndrome of inappropriate secretion of antidiuretic hormone Hydrocele, unspecified Type 2 diabetes mellitus without complications Benign prostatic hyperplasia without lower urinary tract symptoms MAGNESIUM Today 06/11/2025 6:39 AM EST Syndrome of inappropriate secretion of antidiuretic hormone Hydrocele, unspecified Type 2 diabetes mellitus without complications Benign prostatic hyperplasia without lower urinary tract symptoms documented in this encounter Results * (ABNORMAL) Magnesium (06/11/2025 6:39 AM EST) Magnesium 1.4(L) 1.7 - 2.6 mg/dL 06/11/2025 10:53 AM [facility] Blood (Blood) 06/11/2025 6:3 9 AM EST 06/11/2025 8:16 AM EST us Dee Dee Geronimo MD LAB BLOOD BKR ORDERABLES Final Result [address] [address] * (ABNORMAL) CBC (06/11/2025 6:39 AM EST) WBC 8.41 4.00 - 11.00 K/uL 06/11/2025 9:03 AM [facility] RBC 3.82(L) 4.50 - 5.90 M/uL 06/11/2025 9:03 AM [facility] Hemoglobin 10.6(L) 13.5 - 17.5 g/dL 06/11/2025 9:03 AM [facility] Hematocrit 32.6(L) 41.0 - 53.0 % 06/11/2025 9:03 AM [facility] MCV 85.3 80.0 - 100.0 fL 06/11/2025 9:03 AM [facility] MCH 27.7 27.0 - 31.0 pg 06/11/2025 9:03 AM [facility] MCHC 32.5 32.0 - 36.0 g/dL 06/11/2025 9:03 AM [facility] PLT 426 150 - 450 K/uL 06/11/2025 9:03 AM [facility] MPV 8.5 8.4 - 12.0 fL 06/11/2025 9:03 AM [facility] RDW-CV 15.9(H) 11.5 - 14.5 % 06/11/2025 9:03 AM [facility] Absolute NRBC 0.00 <=0.00 K cells/uL 06/11/2025 9:03 AM [facility] NRBC 0.0 <=0.0 /100 WBCs 06/11/2025 9:03 AM [facility] Blood (Blood) 06/11/2025 6:3 9 AM EST 06/11/2025 8:16 AM EST us Dee Dee Geronimo MD LAB BLOOD BKR ORDERABLES Final Result [facility] [address] [place] [address] * (ABNORMAL) Comprehensive Metabolic Panel (CMP) (06/11/2025 6:39 AM EST) Sodium 135(L) 136 - 145 mmol/L 06/11/2025 10:53 AM [facility] Potassium 4.4 3.4 - 5.1 mmol/L 06/11/2025 10:53 AM [facility] Chloride 101 98 - 107 mmol/L 06/11/2025 10:53 AM [facility] CO2 23 20 - 31 mmol/L 06/11/2025 10:53 AM [facility] Anion Gap 11 3 - 17 mmol/L 06/11/2025 10:53 AM [facility] BUN 15 6 - 23 mg/dL 06/11/2025 10:53 AM [facility] Creatinine 0.50(L) 0.60 - 1.30 mg/dL 06/11/2025 10:53 AM [facility] eGFR 104 >59 mL/min/1.7 3m2 06/11/2025 10:53 AM [facility] Comment:Estimated glomerular filtration rate calculated using the CKD-EPI refit equation. Glucose 96 70 - 99 mg/dL 06/11/2025 10:53 AM [facility] Calcium 9.4 8.5 - 10.5 mg/dL 06/11/2025 10:53 AM [facility] AST 14 <40 U/L 06/11/2025 10:53 AM [facility] ALT 10 <50 U/L 06/11/2025 10:53 AM [facility] Alkaline Phosphatase 122 40 - 130 U/L 06/11/2025 10:53 AM [facility] Bilirubin, Total 0.3 0.0 - 1.2 mg/dL 06/11/2025 10:53 AM [facility] Total Protein 6.7 6.4 - 8.3 g/dL 06/11/2025 10:53 AM [facility] Albumin 3.9 3.5 - 5.2 g/dL 06/11/2025 10:53 AM [facility] Globulin 2.8 1.9 - 4.1 g/dL 06/11/2025 10:53 AM [facility] Blood (Blood) 06/11/2025 6:3 9 AM EST 06/11/2025 8:16 AM EST Dee Dee Geronimo MD LAB BLOOD BKR ORDERABLES Final Result Performing Organization Address City/State/[facility] Co de Phone Number [address] [address] documented in this encounter Visit Diagnoses Diagnosis 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 It is not the complete legal health record.[facility]
--- OUTSIDE RECORDS SUMMARY | 2025-06-15 12:52 | XMS_ITS ---
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, [place], [address], [place] (Office): : [facility] 05/28/2025 - 06/13/2025 Capo Carrillo [address] [place], [address], [place] (Office): : : [facility] 05/28/2025 - 06/13/2025 Maranda Bazan [address] [place] [address], [address], [facility] (Office): : [facility] 05/28/2025 - 06/13/2025 Encounters Encounter Type Code Code System Description Performer Discharge Disposition Service Delivery Location Date Ambulatory Encounter CPT Code = [id number] Syndrome of inappropriate vasopressin secretion Maverick Judge Discharge to other destination [facility] Address: [address] [place] [address], [address] [place] [address]. 05/17 Ambulatory Encounter CPT Code = [id number] Urinary tract infectious disease Maverick Judge Discharge to other destination [facility] Address: [address] [place] [address], [address] [place] [address]. 05/17 Ambulatory Encounter CPT Code = [id number] Hypo-osmolality and or hyponatremia Maverick Judge Discharge to other destination [facility] Address: [address] [place] [address], [address] [place] [address]. 05/17 Ambulatory Encounter CPT Code = [id number] Sepsis caused by Serrbeatriz Judge Discharge to other destination [facility] Address: [address] [place] [address], [address] [place] [address], [facility]. 05/17 Ambulatory Encounter CPT Code = [id number] Hydrocele of testis Maverick Judge Discharge to other destination [facility] Address: [address] [place] [address], [address] [place] [address], [facility]. 05/17 Ambulatory Encounter CPT Code = [id number] Primary malignant neoplasm of respiratory tract Maverick Judge Discharge to other destination [facility] Address: [address] [place] [address], [address] [place] [address], [facility]. 05/17 Ambulatory Encounter CPT Code = [id number] Immunodeficiency disorder Maverick Judge Discharge to other destination [facility] Address: [address] [place] [address], [address] [place] [address], [facility]. 05/17 Ambulatory Encounter CPT Code = [id number] Type 2 diabetes mellitus without complication Maverick Jugde Discharge to other destination [facility] Address: [address] [place] [address], [address] [place] [address], [facility]. 05/17 Ambulatory Encounter CPT Code = [id number] Inflammatory polyarthropathy Maverick Judge Discharge to other destination [facility] Address: [address] [place] [address], [address] [place] [address], [facility]. 05/17 Ambulatory Encounter CPT Code = [id number] Benign prostatic hyperplasia Maverick Judge Discharge to other destination [facility] Address: [address] [place] [address], [address] [place] [address], [facility]. 05/17 Ambulatory Encounter CPT Code = [id number] Hyperlipidemia Maverick Judge Discharge to other destination [facility] Address: [address] [place] [address], [address] [place] [address], [facility]. 05/17 Ambulatory Encounter CPT Code = [id number] Gastroesophageal reflux disease without esophagitis Maverick Judge Discharge to other destination [facility] Address: [address] [place] [address], [address] [place] [address], [facility]. 05/17 Ambulatory Encounter CPT Code = [id number] Anemia Maverick Judge Discharge to other destination [facility] Address: [address] [place] [address], [address] [place] [address], [facility]. 05/17 Ambulatory Encounter CPT Code = [id number] Essential hypertension Maverick Judge Discharge to other destination [facility] Address: [address] [place] [address], [address] [place] [address], [facility]. 05/17 Ambulatory Encounter CPT Code = [id number] Depressive disorder Maverick Judge Discharge to other destination [facility] Address: [address] [place] [address], [address] [place] [address], [facility]. 05/17 Ambulatory Encounter CPT Code = [id number] Exocrine pancreatic insufficiency Maverick Judge Discharge to other destination [facility] Address: [address] [place] [address], [address] [place] [address], [facility]. 05/17 Ambulatory Encounter CPT Code = [id number] Urinary tract obstruction Maverick Judge Discharge to other destination [facility] Address: [address] [place] [address], [address], [place]. 05/17 Ambulatory Encounter CPT Code = [id number] Insomnia Maverick Judge Discharge to other destination [facility] Address: [address] [place] [address], [phone], [place]. 05/17 Ambulatory Encounter CPT Code = [id number] Parkinsonism Maverick Judge Discharge to other destination [facility] Address: [address] [place] [address], [address], [facility]. 05/17 Goals Section Goals Description Status Target Date Advanced Directives will be honored and reevalua alberto as needed Active 08/16/2025 Blood pressure will remain within patient's norm al limits Active 08/16/2025 Increase patient's ability to fall asleep or robert ntain sleep Active 08/16/2025 Minimize risk for falls Active 08/16/19 26 Minimize risk for injury related to falls Active 08/16/2025 Skin will remain free of rivera akdown within limits of disease process Active 08/16/2025 Will be able to make needs known to staff Active 08/16/2025 Will be clean, dressed and w ell groomed daily to promote dignity and psychosocial well-being Active 08/16/2025 Will be discharged to [facility] or other appropriate placement when clinical and rehabilitation goals are met Active 08/16/2025 Will be free of complications related to disease process Active 08/16/2025 Will consume appropriate [place] unts of food and fluids to maintain nutritional status Active 08/16/2025 Will decrease/minimize skin breakdown risks Acti ve 08/16/2025 Will demonstrate understanding by completing tas k when requested Active 08/16/2025 Will develop no new areas of skin breakdown Acti ve 08/16/2025 Will develop no new areas of skin breakdown Acti ve 08/16/2025 Will exhibit no acute cardia c distress such as complaints of chest pain, cyanosis, SOB, etc. Active 08/16/2025 Will express feelings of adj ustment to new surroundings by next review Active 08/16/2025 Will express that pain management is within acce ptable limits Active 08/16/2025 Will have ADL needs met with staff assistance Ac tive 08/16/2025 Will have medication dose reduction/elimination as indicated Active 08/16/2025 Will have needs met through normal daily routine without having to express them Active 08/16/2025 Will have no acute complications of urinary cath eter use Active 08/16/2025 Will have no acute respiratory distress Active 08/16/2025 Will have no injury secondar y catheter manipulation or self removal Active 08/16/2025 Will heal within the limits of the disease proce ss Active 08/16/2025 Will heal within the limits of the disease proce ss Active 08/16/2025 Will heal without complication Active 0 08/16/2025 Will heal without complication Active 0 08/16/2025 Will maintain ability to par ticipate in all ADL's and activities of choice as condition permits Active 08/16/2025 Will maintain adequate hydration Active 08/16/2025 Will maintain existing ADL self performance Acti ve 08/16/2025 Will maintain lab parameters as appropriate Acti ve 08/16/2025 Will maintain lab results within normal limits A ctive 08/16/2025 Will not develop complications related to decrea sed mobility Active 08/16/2025 Will not experience a signif icant change in weight through next review Active 08/16/2025 Will not experience an acute exacerbation requiring hospitalization Active 08/16/2025 Will not experience an adverse reaction to treat ment Active 08/16/2025 Will receive assistance necessary to meet ADL ne eds Active 08/16/2025 Will reduce episodes of util ization of breakthrough pain medication Active 08/16/2025 Will reduce risk of fluid volume deficit Active 08/16/2025 Will reestablish bladder control post catheter r emoval Active 08/16/2025 Will show continued signs of healing Active 08/16/2025 Will show continued signs of healing Active 08/16/2025 Will show improvement in mood/behavior Active 08/16/2025 Will show no side effects of medication use Acti ve 08/16/2025 Will show no signs of dehydration or fluid overl oad Active 08/16/2025 Will show no signs of hallucinations or delusion al thinking Active 08/16/2025 Will show no signs of infection Active 08/16/2025 Will show no signs of infection Active 08/16/2025 Will tolerate diet, texture and fluid consistency without signs and symptoms of aspiration Active 08/16/2025 Immunizations Immunization Status Vaccine Details Vaccine Code CodeSystem Date Notes Pneumococcal Conjugate Vaccine (PCV13) completed pneumococcal conjugate vaccine, 13 valent 133 CVX created date: 05/21/2025 administer ed date: 05/22/2019 Verified in [facility] Pneumococcal Polysaccharide Vaccine (PPSV23) completed pneumococcal polysaccharide vaccine, 23 valent 33 CVX created date: 05/21/2025 administer ed date: 05/14/2015 Verified in [facility] Prevnar 20 Pneumococcal conjugate (PCV20) new Pneumococcal conjugate vaccine 20-valent (PCV20), polysaccharide [id number] conjugate, adjuvant, preservative free 216 CVX created date: 05/18/2025 consent date: 05/18/2025 RSV, bivalent, protein subunit RSVpreF, diluent rec new Respiratory syncytial virus (RSV), vaccine, bivalent, protein subunit RSV prefusion F, diluent reconstituted, 0.5 mL, preservative free 305 CVX created date: 05/18/2025 consent date: 05/18/2025 influenza, unspecified formulation new influenza virus vaccine, unspecified formulation 88 CVX created date: 05/18/2025 consent date: 05/18/2025 influenza, unspecified formulation completed influenza virus vaccine, unspecified formulation 88 CVX created date: 05/21/2025 administer ed date: 05/14/2025 Verified in [facility] SARS-COV-2 (COVID-19) vaccine, UNSPECIFIED completed SARS-COV-2 (COVID-19) vaccine, UNSPECIFIED Mfg: Pfizer #2 213 CVX created date: 05/21/2025 administer ed date: 09/30/2020 Verified in [facility] SARS-COV-2 (COVID-19) vaccine, UNSPECIFIED completed SARS-COV-2 (COVID-19) vaccine, UNSPECIFIED Mfg: Pfizer #1 213 CVX created date: 05/21/2025 administer ed date: 09/09/2020 Verified in [facility] COVID-19, mRNA, LNP-S, PF, 10 mcg/0.2 mL new SARS-COV-2 (COVID-19) vaccine, mRNA, spike protein, LNP, preservative free, 10 mcg/0.2 mL dose 334 CVX created date: 05/18/2025 consent date: 05/18/2025 COVID-19, mRNA, LNP-S, PF, 10 mcg/0.2 mL completed SARS-COV-2 (COVID-19) vaccine, mRNA, spike protein, LNP, preservative free, 10 mcg/0.2 mL dose Mfg: Pfizer Comirnaty # 2 334 CVX created date: 05/21/2025 administer ed date: 05/15/2024 Verified in [facility] COVID-19, mRNA, LNP-S, PF, 10 mcg/0.2 mL completed SARS-COV-2 (COVID-19) vaccine, mRNA, spike protein, LNP, preservative free, 10 mcg/0.2 mL dose Mfg: Pfizer Comiranty #1 334 CVX created date: 05/21/2025 administer ed date: 04/23/2023 Verified in [facility] COVID-19, mRNA, LNP-S, PF, 10 mcg/0.2 mL completed SARS-COV-2 (COVID-19) vaccine, mRNA, spike protein, LNP, preservative free, 10 mcg/0.2 mL dose Mfg: Pfizer Bivalent Booster 334 CVX created date: 05/21/2025 administer ed date: 04/28/2022 Verified in [facility] COVID-19, mRNA, LNP-S, PF, 10 mcg/0.2 mL completed SARS-COV-2 (COVID-19) vaccine, mRNA, spike protein, LNP, preservative free, 10 mcg/0.2 mL dose Mfg: Pfizer Booster # 2 334 CVX created date: 05/21/2025 administer ed date: 10/30/2021 Verified in [facility] COVID-19, mRNA, LNP-S, PF, 10 mcg/0.2 mL completed SARS-COV-2 (COVID-19) vaccine, mRNA, spike protein, LNP, preservative free, 10 mcg/0.2 mL dose Mfg: Pfizer Booster # 1 334 CVX created date: 05/21/2025 administer ed date: 04/18/2021 Verified in [facility] Medications Section Medication Name Status Code CodeSystem Dose Route Frequency Admin Type Sig Text Start Date End Date Indication Acetaminoph en Tablet 325 MG aborted 60419 2 RXNORM 2 table t Oral as needed PRN Give 2 table t by mouth every 6 hours as neede d for Pain Do not excee d 3 grams in 24 hours . T otal 650 mg AND Give 2 table t by mouth every 6 hours as neede d for [place] alberto [place] ratur e > 99 Do not excee d 3 grams in 24 hours . T otal 650mg 05/23 Pain 33031 2 RXNORM 2 table t Oral as needed PRN Give 2 table t by mouth every 6 hours as neede d for Pain Do not excee d 3 grams in 24 hours . T otal 650 mg AND Give 2 table t by mouth every 6 hours as neede d for [place] alberto [place] ratur e > 99 Do not excee d 3 grams in 24 hours . T otal 650mg 05/23 Elevated Temperature > 99 Bisacodyl Suppository 10 MG aborted 9 RXNORM 1 suppo sitor y Rectal as needed PRN Inser t 1 suppo sitor y recta lly every 24 hours as neede d for const ipati on Use if Senna is Ineff ectiv e 06/11 constipatio n Senna Tablet 8.6 MG aborted 56386 5 RXNORM 1 table t Oral as needed PRN Give 1 table t by mouth every 24 hours as neede d for Const ipati on 06/13 Constipatio n Fleet Saline Enema aborted 133 ml Rectal as needed PRN Inser t 133 ml recta lly every 24 hours as neede d for Const ipati on if bisac odyl suppo sitor y not effec tive. If no BM after Fleet Enema Call MD Neal oncen trati on: Dibas ic sodiu m Phosp hate 7g/Mo nobas ic Sodiu m Phosp hate 19g 06/11 Constipatio n if bisacodyl suppository not effective. Mekinist Oral Tablet 2 MG aborted 00581 18 RXNORM 2 mg Oral in the morning Routin e Give 2 mg by mouth in the morni ng for cance r 06/13 cancer Omeprazole Capsule Delayed Release 20 MG aborted 1 RXNORM 1 capsu le Oral as needed PRN Give 1 capsu le by mouth every 12 hours as neede d for acid reflu x (give as neede d for acid reflu x at 0630 and 1630 PRN) 06/04 acid reflux Dabrafenib Mesylate Oral Capsule 75 MG aborted 26929 18 RXNORM 2 capsu le Oral two times a day Routin e Give 2 capsu le by mouth two times a day for cance r (2 caps total of 150mg BID) 06/13 cancer Creon Oral Capsule Delayed Release Particles [id number] UNIT aborted 56967 9 RXNORM 2 capsu le Oral with meals Routin e Give 2 capsu le by mouth with meals for diges tion 06/13 digestion Magnesium Oxide Oral Tablet 400 MG aborted 400 mg Oral one time a day Routin e Give 400 mg by mouth one time a day for vitam in defic ency 06/04 vitamin deficency Ondansetron HCl Tablet 4 MG aborted 2 RXNORM 2 table t Oral as needed PRN Give 2 table t by mouth every 8 hours as neede d for nause a (2 tabs= 8mg) PRN Q8H nause a 06/13 nausea traZODone HCl Oral Tablet 50 MG aborted 74115 7 RXNORM 50 mg Oral at bedtime Routin e Give 50 mg by mouth at bedti me for depre ssion /inso mnia 06/13 depression/ insomnia Mirtazapine Tablet 7.5 MG aborted 59586 9 RXNORM 1 table t Oral one time a day Routin e Give 1 table t by mouth one time a day for depre ssion [facility] . May cause drows iness . Avoid alcoh ol. 06/13 depression Ciprofloxac in HCl Oral Tablet [place] [address] 9 RXNORM 500 mg Oral two times a day Routin e Give 500 mg by mouth two times a day for urose psis for 5 Days 05/23 urosepsis metFORMIN HCl Oral Tablet 1000 MG aborted 99345 4 RXNORM 1000 mg Oral two times a day Routin e Give 1000 mg by mouth two times a day for DM 06/13 DM Atorvastati n Calcium Oral Tablet 10 MG aborted 54664 2 RXNORM 10 mg Oral one time a day Routin e Give 10 mg by mouth one time a day for HLD 06/13 HLD Multi-Vitam in Tablet aborted 1 table t Oral in the evening Routin e Give 1 table t by mouth in the eveni ng for vitam in defic iency 06/13 vitamin deficiency Januvia Oral Tablet 25 MG aborted 51104 0 RXNORM 1 table t Oral one time a day Routin e Give 1 table t by mouth one time a day for dm 06/13 dm Terazosin HCl Oral Capsule 5 MG aborted 36355 9 RXNORM 5 mg Oral at bedtime Routin e Give 5 mg by mouth at bedti me for HTN 06/13 HTN Tamsulosin HCl Capsule 0.4 MG aborted 88744 9 RXNORM 1 capsu le Oral one time a day Routin e Give 1 capsu le by mouth one time a day for urina ry frequ ency Do not crush /chew or open capsu le. Take 30 minut es after the same meal each day. May cause dizzi ness. 06/13 urinary frequency Loperamide HCl Capsule 2 MG aborted 56184 6 RXNORM 1 capsu le Oral as needed PRN Give 1 capsu le by mouth as neede d for Diarr hea after each loose stool M ax 16mg/ 24 hours 05/21 Diarrhea A & D Zinc Oxide Cream aborted n/a n/a Topica l as needed PRN Apply to butto cks topic ally every 1 hours as neede d for incon tinen t care Exter nal Use Only AND Apply to butto cks topic ally every shift for skin break down 05/18 incontinent care n/a n/a Topica l every shift Routin e Apply to butto cks topic ally every 1 hours as neede d for incon tinen t care Exter nal Use Only AND Apply to butto cks topic ally every shift for skin break down 05/18 skin breakdown A & D Zinc Oxide Cream aborted n/a n/a Topica l as needed PRN Apply to Sacru m/But tocks topic ally as neede d for incon tinen t care Exter nal Use Only AND Apply to Sacru m/But [place]cks topic ally every shift for skin break down 05/21 incontinent care n/a n/a Topica l every shift Routin e Apply to Sacru m/But [place]cks topic ally as neede d for incon tinen t care Exter nal Use Only AND Apply to Sacru m/But tocks topic ally every shift for skin break down 05/21 skin breakdown A & D Zinc Oxide Cream aborted n/a n/a Topica l as needed PRN Apply to butto cks topic ally as neede d for incon tinen t care Exter nal Use Only AND Apply to butto cks topic ally every shift for skin break down 05/18 incontinent care n/a n/a Topica l every shift Routin e Apply to butto cks topic ally as neede d for incon tinen t care Exter nal Use Only AND Apply to butto cks topic ally every shift for skin break down 05/18 skin breakdown Tylenol Extra Strength Oral Tablet 500 MG aborted 65227 9 RXNORM 2 table t Oral three times a day Routin e Give 2 table t by mouth three times a day for Pain 06/13 Pain Sodium Chloride Solution 0.45 % [place] [address] 52 RXNORM 80 ml/hr Intrav enous every day shift Routin e Use 80 ml/hr intra venou sly every day shift for Hydra tion for 1 Day until finis hed D/C IV after 1 Liter infus ed 05/26 Hydration Carbidopa-L evodopa Tablet 25-100 MG aborted 56005 4 RXNORM 1 table t Oral one time a day Routin e Give 1 table t by mouth one time a day for Parki nsoni sm Do not give withi n 2 hours of iron. Best absor bed on an empty stoma 06/13 Parkinsonis m Magnesium Oxide Oral Tablet 400 MG aborted 400 mg Oral at bedtime Routin e Give 400 mg by mouth at bedti me for vitam in defic ency 06/04 vitamin deficency Magnesium Oxide Oral Tablet 400 MG aborted 400 mg Oral three times a day Routin e Give 400 mg by mouth three times a day for vitam in defic ency 06/13 vitamin deficency Mental Status Section Date Assessment Total Score Description 06/03/2025 BIMS 11 moderate cognit sherry impairment CAM 0 No delirium ind icated PHQ-9 00 05/24/2025 CAM 3 Delirium indica alberto Insurance Providers Plan of Treatment Section Interventions Intervention Code Code System Display Name Proposed D ate Problems Problem # Description Date of onset Resolved Date Code CodeSystem Concern Status 1 ANEMIA, UNSPECIFIED [address] active 2 DEPRESSION, UNSPECIFIED [address] active 3 ESSENTIAL (PRIMARY) HYPERTENSION [address] active 4 EXOCRINE PANCREATIC INSUFFICIENCY [address] active 5 HYPO-OSMOLALITY AND HYPONATREMIA [address] active 6 INSOMNIA, UNSPECIFIED [address] active 7 OBSTRUCTIVE AND REFLUX UROPATHY, UNSPECIFIED [address] active 8 PARKINSONISM, UNSPECIFIED [address] active 9 SYNDROME OF INAPPROPRIATE SECRETION OF ANTIDIURETIC HORMONE [address] active 10 BENIGN PROSTATIC HYPERPLASIA WITHOUT LOWER URINARY TRACT SYMPTOMS [address] active 11 GASTRO-ESOPHAGEAL REFLUX DISEASE WITHOUT ESOPHAGITIS [address] active 12 HYDROCELE, UNSPECIFIED [address] active 13 HYPERLIPIDEMIA, UNSPECIFIED [address] active 14 IMMUNODEFICIENCY DUE TO CONDITIONS CLASSIFIED ELSEWHERE [address] active 15 MALIGNANT NEOPLASM OF 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 [address] active 16 OTHER SPECIFIED ARTHRITIS, MULTIPLE SITES [address] active 17 SEPSIS DUE TO SERRATIA 5 05/28/[address] completed 18 TYPE 2 DIABETES MELLITUS WITHOUT COMPLICATIONS [address] active 19 URINARY TRACT INFECTION, SITE NOT SPECIFIED 5 05/28/[address] completed Reason for Referral No Reasons for Referral Entered Social History Social History Observation Description Start Date End Date Code Code System Current Smoking Status Tobacco smoking consumption unknown 159328172 SNOMED CT Sex Assigned At Male 1945 25070-3 [facility] Gender Identity Sexual Orientation Vital Signs Code Code System Vitals Name Values and Units Timing Information 08630-0 [facility] Weight Geqlo=097.0 Units=Lbs 25432-5 [facility] Pain Level Value=0.0 06/13/2025 9279-1 [facility] Respiratory Rate Value=18.0 Units=/m in 06/13/2025 8462-4 [facility] Blood Pressure-Diastolic Value=76 Un its=mmHg 06/13/2025 8480-6 [facility] Blood Pressure-Systolic Eilrb=432 Un its=mmHg 06/13/2025 8310-5 [facility] Body Temperature Value=97.3 Units= F 06/13/2025 8867-4 [facility] Heart rate Value=70.0 Units=/min 21465-2 [facility] O2 % BldC Oximetry Value=98.0 Units= % 06/13/2025 2339-0 [facility] Blood Sugar Ztrfb=021.0 Units=mg/dL 06/11/2025 8302-2 [facility] Height Value=64.0 Units=Inches 05/18/2025
--- OUTSIDE RECORDS SUMMARY | 2025-06-15 12:52 | XMS_ITS | Clinical Summary ---
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 1 Active Lidocaine 4 % patch Apply to the affected area up to 3 times daily as needed Active sildenafil (Viagra) 100 MG tablet Take 1 tablet by mouth at bed time. Active Blood Glucose Monitoring Suppl ([employer] Verio) w/Device kitIndications:T ype 2 diabetes mellitus [...] release tablet 5 mg. 4 Active Creon 67802-42518 units capsule 2 capsules. 4 Active glucose [...] hyperglycemia, without long-term current use of insulin ([facility]) Take 1 tablet (25 mg) by mouth Once per day. 30 tablet 11 5 09/08/19 26 Active Lancets (OneTouch Delica Plus [id number]) miscIndications: Elevated blood sugar TEST BLOOD SUGAR TWICE DAILY 100 each 11 5 Active Farxiga 10 MGIndications:Ty pe 2 diabetes mellitus with other specified complication, unspecified whether usp insulin use (HCC) TAKE 1 TABLET BY MOUTH EVERY MORNING 90 tablet 1 5 Active atorvastatin (Lipitor) 10 MG tablet TAKE 1 TABLET BY MOUTH EVERY EVENING 90 tablet 2 5 Active mirtazapine (Remeron) 7.5 MG tabletIndication s:Other insomnia TAKE 1 TABLET BY MOUTH AT BEDTIME 30 tablet 1 5 Active omeprazole (PriLOSEC) [address] capsuleIndicatio ns:Dyspepsia TAKE 1 CAPSULE BY MOUTH TWICE DAILY 60 capsule 2 5 Active Active Problems Problem Noted Date Diagnosed Date Primary malignant neoplasm o f left lung metastatic to other site 07/05/2024 Overview (07/05/2024): New dx of metastatic NSCLC 04/2024.-- Presented to [facility] ED w1 with acute SOB. CT chest [...] maintenance 10/16/2022 Overview (10/25/2022): Healthcare Maintenance: C-scope: [facility] 2021, needs records PSA: Per urology HCV Screen: Neg 09/10 HIV Screen: Neg 09/10 Immunizations: UTD Weight loss 09/17/2022 Diabetes 09/11/2022 Overview (02/25/2024): Farxiga 10mg daily Metformin 1000mg b.i.d Januvia 25 mg daily Foot Exam: Risk 0; [facility] Eye Exam: [facility] Eye care Statin: Yes ASA: No BLOSSOM/ARB: [...] Repeat labs today Has upcoming appointment for [facility] eye care Assessment & Plan (10/25/2022 1:09 [...] Plan (05/19/2023 11:14 AM EDT): Compliant with [employer] agreement Only using tramadol 1x/week due to concern re addiction Advised patient OK to take tramadol at bedtime nightly if pain interfering with sleep Continue acetaminophen PRN during day Continue lidocaine patch Continue topical diclofenac gel Continue acupuncture PT referral for general gait instability Assessment & Plan (10/25/2022 1:09 PM EDT): Will refer to [employer] [employer] RN Hypertensive disorder 04/12/2017 Overview (02/25/2024): Losartan [...] Encounters Date Type Department Care Team Description 06/12/2025 Patient Outreach [facility] [address] [place] [address] Abbi Saha FNP Transition Of Care (Tcm) (HDF- scheduled and SDOH screening negative and Tobacco screening negative) 06/11/2025 Patient Outreach [address] [address] Abbi Saha FNP Transition Of Care (Tcm) (HDF unscheduled) 06/11/[address] [address] Abbi Saha FNP Hospital Follow-up 06/06/[address] [address] Abbi Saha FNP home orders 05/29/2025 Patient Outreach [facility] [address] [place], [place] [phone] Abbi Saha FNP Transition Of Care (Tcm) (HDF unscheduled.) 05/28/[address] [address] Abbi Saha FNP fyi 05/18/[address] [address] Jody Galloway, PharmSung 05/13/2025 Orders Only GENERIC EXTERNAL DATA DEPARTMENT Provider, Generic External Data 05/10/2025 Patient Outreach [address] [address] Abbi Saha FNP Transition Of Care (Tcm) (HDF- scheduled with the Direct Line ) 04/22/2025 Orders Only [facility] External Provider, [facility] 04/21/2025 Orders Only GENERIC EXTERNAL DATA DEPARTMENT Provider, Generic External Data 04/19/[address] [address] Abbi Saha FNP Other insomnia; Dyspepsia 04/04/2025 Orders Only [facility] External Provider, [facility] 03/22/[address] [address] Abbi Saha FNP chart prep from Last 3 Months Immunizations [...] housing situation today? I have elza mosley 06/12/[address] you li ve. Do you have problems with any of the following? None of the above 06/12/2025 Food Insecurity Answer Date Recorded Within the past 12 months, y ou worried that your food would run out before you got money to buy more: Never True 06/12/2025 Within the past 12 months,th e food you bought just didn't last and you didn't have enough money to get more: Never True Transportation Answer Date Recorded In the past 12 months, has l ack of transportation kept you from medical appts, meetings, work or from getting things needed for daily living? No 06/12/2025 Utilities Answer Date Recorded In the past 12 months, has t he electric, gas, oil or water company threatened to shut off services in your home? No 06/12/2025 Depression Answer Date Recorded Patient Health Questionnaire-2 Score 0 07/05/2024 Internet Access Answer Date Recorded Internet Access Q1 Yes 06/12/2025 Internet Access Q2 Not on file 06/12/2025 Sex and Gender Information Value Date Recorded [...] Description 06/22/2025 10:00 AM EST Office Visit [facility] [address] [place] [address] Rosanna Cohen DO [address] [place] [address] 09/10/2025 2:15 PM EST Office Visit [facility] ADULT DENTAL [address] [place] [address] Nusrat Lynch [address] [place] [address] Health Maintenance Due Date Last Done Comments Alcohol/Substance Use Screening 1957 RSV Patients and Patients Aged 60 years or older (1 - 1-dose 75+ series) 2021 Diabetes: Urine Protein Screening 05/03/2024 05/03/2023, 01/06/2022, 01/30/2020 Lipid Panel 05/03/2024 05/03/2023, 08/20, 01/06/2022, Additional history exists COVID-19 Vaccine ( season) 2025 05/15/2024, 04/23/2023, 04/28/2022, Additional history exists Dental Oral Exam 03/30/2025 09/26/2024, 09/25/2016 Dental Prophylaxis 03/30/2025 09/26/2024, 0 02/17/2024, 01/28/2022, Additional history exists Depression Screening 07/05/2025 07/05/2024, 07/05/20 Eye Exam 07/19/2025 07/19/2023 Dental X-Ray: Bitewings 09/27/2025 09/27/19, 02/17/2024, 11/26/2023, Additional history exists Diabetes: Foot Exam 10/25/2025 10/25/2024, 10/25/2024, 07/02/2023, Additional history exists Diabetes: Hemoglobin A1C 11/21/2025 025, 10/25/2024, 07/05/2024, Additional history exists Tobacco Screening 01/30/2026 01/30/2025 SDOH Screening 06/12/2026 06/12/2025 Dental X-Ray: Full Mouth 09/28/2027 09/26/2024, 09/16 DTaP/Tdap/Td Vaccines (3 - Td or Tdap) 10/16/2032 10/16/2022, 05/07/2015 Pneumococcal Vaccine: 50+ Years Completed 05/22/2019, 05/14/2015 Zoster Vaccines Completed 07/08/2020, 04/19, 01/10/2018 Hepatitis C Screening Completed 09/11/2022 Influenza Vaccine Completed 05/14/2025, , 04/09/2023, Additional history exists HIB Vaccines Aged Out [...] on patient's age to complete this topic Goals Goal Patient Goal Type Associated Problems Recent Progress Patient-Stated? Author Help patients manage their type 2 diabetes Care Plan Help patients manage their type 2 diabetes No Nissa Dewitt Weekly blood pressure task Care Plan Weekly blood pressure task No Nissa Dewitt Help patients manage their type 2 diabetes Care Plan Help patients manage their type 2 diabetes No Nissa Dewitt Patient has chronic kidney disease Care Plan Patient has chronic kidney disease No Nissa Dewitt Weekly blood pressure task Care Plan Weekly blood pressure task No Nissa Dewitt Patient has chronic kidney disease Care Plan Patient has chronic kidney disease No Nissa Dewitt Weekly blood pressure task Care Plan Weekly blood pressure task No Nissa Dewitt Weekly blood pressure task Care Plan Weekly blood pressure task No Nissa Dewitt Patient has chronic kidney disease Care Plan Patient has chronic kidney disease No Nissa Dewitt Patient has chronic kidney disease Care Plan Patient has chronic kidney disease No Nissa Dewitt Weekly blood pressure task Care Plan Weekly blood pressure task No Candy Ramirez Weekly blood pressure task Care Plan Weekly blood pressure task No Candy Ramirez Patient has chronic kidney disease Care Plan Patient has chronic kidney disease No Candy Ramirez Patient has chronic kidney disease Care Plan Patient has chronic kidney disease No Candy Ramirez Weekly blood pressure task Care Plan Weekly blood pressure task No Lupe Galindo Weekly blood pressure task Care Plan Weekly blood pressure task No Lupe Galindo Patient has chronic kidney disease Care Plan Patient has chronic kidney disease No Lupe Galindo Patient has chronic kidney disease Care Plan Patient has chronic kidney disease No Lupe Galindo Procedures Procedure Name Priority Date/Time Associated Diagnosis Comments URINALYSIS, COMPLETE, WITH REFLEX TO CULTURE Routine 05/13/2025 7:42 PM EDT LACTIC ACID LAB USE ONLY Routine 05/13/2025 7:00 PM EDT XR CHEST 1 VIEW Routine 05/13/2025 6:10 PM EDT VENOUS BLOOD GAS Routine 05/13/2025 4:43 PM EDT COVID-19 ID NOW (Meetup) Routine 05/13/2025 4:35 PM EDT PROTHROMBIN TIME-INR Routine 05/13/2025 4:35 PM EDT INFLUENZA A B2 ID NOW ([facility]) Routine 05/13/2025 4:35 PM EDT HIGH SENSITIVITY [...] hyperglycemia, without long-term current use of insulin ([facility]) PROPHYLAXIS - ADULT Routine 09/26/2024 1 :00 [...] hyperglycemia, without long-term current use of insulin ([facility]/HCC) LIPID PANEL, STANDARD Routine 05/03/2023 8:36 AM EDT Type 2 diabetes mellitus with hyperglycemia, without long-term current use of insulin (CMS/HCC) HEPATITIS C AB W/REFL TO HCV RNA, QN, PCR Routine 09/11/2022 3:09 PM EST Healthcare maintenance from Last 3 Months or Most Recently Relevant to Health Maintenance Results * (ABNORMAL) Urinalysis, Complete, with Reflex to Culture (05/13/2025 7:42 PM EDT) Only the most recent of3 resultswithin the time period is included. Color Urine Yellow [facility] Appearance Urine Clear [facility] PH 5.0 5.0 - 9.0 [facility] Glucose Urine UA >=1000(A) Negative mg/dL [facility] Urine Blood Small (1+)(A) Negative [facility] Specific [place] - Urine >=1.030(H) 1.005 - 1.025 [facility] Urine Protein 30 (1+)(A) Neg-Trace mg/dL [facility] Urine Ketones Negative Negative mg/dL [facility] Nitrite Urine Positive(A) Negative [facility] Leukocyte Esterase Urine Small (1+)(A) Negative [facility] RBC Urine 0-2 0 - 2 /HPF [facility] Urine WBC 21-50(A) 0 - 5 /HPF [facility] Urine Squamous Epithelial Cell 3-5 0 - 2 /HPF [facility] Urine Bacteria Trace None Seen [facility] Hyaline Casts, Urine 3-5 0 - 2 /LPF [facility] 05/13/2025 7:42 PM EDT 05/13/2025 7:50 PM EDT Narrative [facility] - 05/13/2025 8:05 PM EDT Urine, [place] us Generic External Data Provider LAB URINE ORDERAB LES Final Result [facility] [address] [place] [address] [phone] * (ABNORMAL) Lactic Acid (05/13/2025 7:00 PM EDT) Only the most recent of2 resultswithin the time period is included. Lactic Acid 2.1(HH) 0.5 - 2.0 mmol/L [facility] Comment:Critical value for t est(s):LACTA Results called to linn back by:GERBER Person calling: KUSF Date:[id number] 05/13/2025 7:00 PM EDT 05/13/2025 7:03 PM EDT us Generic External Data Provider LAB BLOOD ORDERAB LES Final Result Performing Organization Address City/State/[facility] Co de Phone Number [facility] [address] [place] [address] [phone] * XR Chest 1 View (05/13/2025 6:10 PM EDT) Only the most recent of2 resultswithin the time period is included. Anatomical Region Laterality Modality Chest Radiographic Brianna ging 05/13/2025 6:10 PM EDT Narrative 05/13/2025 6:12 PM EDT [place] [address] XRay Report Signed Patient: Lei Drew MR#: [id number] : 1945 Acct:[id number] Age/Sex: 79 / M ADM Date: 05/13/25 Loc: .ED Attending Dr: Ordering Physician: Patricia Kerr Date of Service: 05/13/25 Procedure(s): XR chest 1V Accession Number(s): [id number] cc: Patricia Kerr; [facility] Reason for Exam: weakness CLINICAL HISTORY: weakness 1 view chest x-ray Comparison: CR/TN/SR - XR CHEST 2 VIEWS - 04/04/25 11:24 EDT Findings: The lungs are clear. Similar-appearing bronchial wall thickening. Similar prominent/enlarged cardiac silhouette. No acute fracture. IMPRESSION: 1. No acute findings. This document has been electronically signed by: Ross Mack MD on 05/13/2025 18:10:55 Dictated By: Ross Mack MD Signed By: <Electronically signed by Ross Mack MD in OV> 05/13/251810 DD/ 09 TD/TT: 05/13/251809 Plate Glass Installer: Procedure Note Donotuseinterpreter, Image - 05/13/[address] [address] XRay Report Signed Patient: Scottie Drew#: [id number] : 6Acct:[id number] Age/Sex: 79 / MADM Date: 05/13/25 Loc: .ED Attending Dr: Ordering Physician: Patricia Kerr Date of Service: 05/13/25 Procedure(s): XR chest 1V Accession Number(s): [id number] cc: Patricia Kerr; [facility] Reason for Exam: weakness CLINICAL HISTORY: weakness 1 view chest x-ray Comparison: CR/TN/SR - XR CHEST 2 VIEWS - 04/04/25 11:24 EDT Findings: The lungs are clear. Similar-appearing bronchial wall thickening. Similar prominent/enlarged cardiac silhouette. No acute fracture. IMPRESSION: 1. No acute findings. This document has been electronically signed by: Ross Mack MD on 05/13/2025 18:10:55 Dictated By: Ross Mack MD Signed By: <Electronically signed by Ross Mack MD in OV> 05/13/251810 DD/ 09 TD/TT: 05/13/251809 Plate Glass Installer: us [facility] External Provider IMG XR PROCEDURES Edited Result - Final * (ABNORMAL) VENOUS BLOOD GAS (05/13/2025 4:43 PM EDT) VBG pH 7.52(H) 7.32 - 7.43 [facility] Comment:METER #: [id number] additional_comment: Cb n-manla VBG PCO2 26 mmHg [facility] Comment:METER #: [id number] additional_comment: Cb n-manla VBG PO2 58 mmHg [facility] Comment:METER #: [id number] additional_comment: Cb n-manla VBG Base Excess 0.6 mmol/L [facility] Comment:METER #: [id number] additional_comment: Cb n-manla VBG HCO3 22 22 - 26 mmol/L [facility] Comment:METER #: [id number] additional_comment: Cb n-manla O2 Sat, [place] 88.0 % [facility] Comment:METER #: [id number] additional_comment: Cb n-manla 05/13/2025 4:43 PM EDT 05/13/2025 4:47 PM EDT us Generic External Data Provider LAB BLOOD ORDERAB LES Final Result Performing Organization Address City/State/[facility] Co de Phone Number [facility] [address] [place] [phone] * Influenza A B2 ID NOW (Guerillapps) (05/13/2025 4:35 PM EDT) IDWUW SERIAL# [id number] [facility] Influenza A Negative Negative [facility] Influenza B2 Negative Negative [facility] Influenza A B2 Note See Note [facility] Comment:The [facility] ID NOW In fluenza A B2 test is used for thequalitative detection of influenza A and B from patientswith signs and symptoms of respiratory infection.Negative results do not preclude influenza virus infectionand should not be used as the sole basis for diagnosis,treatment or other patient management decisions.There is a risk of false negative results due to thepresence of variants in the viral targets of the assay, lowlevels of virus in the specimen and co- infection withRespiratory Syncytial Virus. 05/13/2025 4:35 PM EDT 05/13/2025 4:43 PM EDT us Generic External Data Provider LAB MICROBIOLOGY - GENERAL ORDERABLES Final Result Performing Organization Address City/[facility]/ZIP Co de Phone Number [facility] [address] [place] [address] [phone] * COVID-19 ID NOW ([facility]CHARD) (05/13/2025 4:35 PM EDT) Pathologist [facility] IDNOW SERIAL# [id number] [facility] COVID-19 TEST Negative Negative [facility] COVID-19 NOTE See Note [facility] Comment: Results are for the identification of SARS-CoV2 RNA. TheSARS-CoV2 RNA is generally detectable in respiratory samplesduring the acute phase of infection. Positive results areindicative of the presence of SARS-CoV-2 RNA; clinicalcorrelation with patient history and other diagnosticinformation is necessary to determine patient infectionstatus. Positive results do not rule out bacterial infectionor co- infection with other viruses.Testing facilities within the [facility] and itsterritories are required to report all positive results tothe appropriate public health authorities.Negative results should be treated as presumptive and, ifinconsistent with clinical signs and symptoms or necessaryfor patient management, should be tested with differentauthorized or cleared molecular tests. Negative results donot preclude SARS-CoV2 RNA infection and should not be usedas the sole basis for patient management decisions. Negativeresults should be considered in the context of a patient'srecent exposures, history and the presence of clinical signsand symptoms consistent with COVID-19.This test has been authorized by the FDA under an EmergencyUse Authorization (EUA) for use by authorized laboratories.Testing performed on the [facility] ID NOW utilizing NAAT. 05/13/2025 4:35 PM EDT 05/13/2025 4:43 PM EDT us Generic External Data Provider LAB MOLECULAR SOL GNOSTICS ORDERABLES Final Result Performing Organization Address City/[facility]/ZIP Co de Phone Number [facility] [address] [place] [address] [phone] * (ABNORMAL) Prothrombin Time-INR (05/13/2025 4:35 PM EDT) [facility] Prothrombin Time 14.4(H) 10.9 - 12.4 SEC [facility] INTERNATIONAL NORM RATIO 1.3(H) 0.9 - 1.1 [facility] Comment:INTERNATIONAL NORMAL IZED RATIO (INR) [...] 4:35 PM EDT 05/13/2025 4:43 PM EDT Generic External Data Provider LAB BLOOD ORDERAB LES Final Result Performing Organization Address [facility] Co de Phone Number [facility] [address] [place] [phone] * High Sensitivity Troponin I (05/13/2025 4:24 PM EDT) [facility] TROPONIN I HIGH SENSITIVITY 5.3 <3.5 - 35.0 ng/L [facility] Comment:The [facility] high sens itivity Troponin-I results should beused in conjunction with other diagnostic information suchas ECG, clinical observations and information, and patientsymptoms to aid in the diagnosis of [place]. 05/13/2025 4:24 PM EDT 05/13/2025 4:28 PM EDT Generic External Data Provider LAB BLOOD ORDERAB LES Final Result Performing Organization Address [facility] Co de Phone Number [facility] [address] [place] [phone] * (ABNORMAL) CBC auto differential (05/13/2025 4:24 PM EDT) [facility] White Blood Count 7.3 4.8 - 10.8 X10*3/uL [facility] Red Blood Count 4.91 4.60 - 5.80 X10*6/uL [facility] Hemoglobin 14.0 14.0 - 18.0 g/dl [facility] Hematocrit 41.2(L) 42.0 - 52.0 % [facility] Mean Corpuscular Volume 83.9 80.0 - 98.0 fL [facility] Mean Corpuscular Hemoglobin 28.5 27.0 - 33.0 pg [facility] Mean Corpuscular HGB Conc 34.0 31.0 - 36.0 g/dl [facility] Red Cell Distribution Width 13.5 11.0 - 16.0 % [facility] Platelet Count 273 160 - 400 X10*3/uL [facility] Mean Platelet Volume 8.6(L) 9.4 - 12.4 fL [facility] Neutrophils Percent Auto 80.9(H) 45 - 73 % [facility] Imm Gran Pct Auto 1.5(H) 0.0 - 0.4 % [facility] Lymphocytes Percent Auto 8.1(L) 20 - 40 % [facility] Monocytes Percent Auto 8.8 2 - 11 % [facility] Eosinophils Percent Auto 0.1 0 - 4 % [facility] Basophils Percent Auto 0.6 0 - 2 % [facility] NRBC Pct Auto 0.0 0.0 - 0.2 /100WBC [facility] Neutrophils Absolute Auto 5.9 2.0 - 8.3 x10*3/uL [facility] Imm Gran Abs Auto 0.11(H) 0.00 - 0.03 X10*3/uL [facility] Lymphocytes Absolute Auto 0.6(L) 1.2 - 4.9 X10*3/uL [facility] Monocytes Absolute Auto 0.6 0.1 - 1.2 X10*3/uL [facility] Eosinophils Absolute Auto 0.0 0.0 - 0.4 X10*3/uL [facility] Basophils Absolute Auto 0.0 0.0 - 0.2 X10*3/uL [facility] NRBC Abs Auto 0.000 0.0 - 0.012 X10*3/uL [facility] 05/13/2025 4:24 PM EDT 05/13/2025 4:28 PM EDT Generic External Data Provider LAB BLOOD ORDERAB LES Final Result Performing Organization Address [facility] Co de Phone Number [facility] [address] [place] [phone] * (ABNORMAL) Magnesium (05/13/2025 4:24 PM EDT) Magnesium 1.2(LL) 1.6 - 2.6 mg/dL [facility] Comment:Critical value for t est(s): MG Results called to and readback by:KROT Person calling: KUSF Date:05-13-25 Time:1648 05/13/2025 4:24 PM EDT 05/13/2025 4:28 PM EDT Generic External Data Provider LAB BLOOD ORDERAB LES Final Result Performing Organization Address [facility] de Phone Number [facility] [address] [place] [phone] * (ABNORMAL) Lactic Acid (05/13/2025 4:24 PM EDT) Lactic Acid 3.8(HH) 0.5 - 2.0 mmol/L [facility] Comment:Critical value for t est(s): LA Results called to and readback by:KROT Person calling:KUSF Date: [id number] 05/13/2025 4:24 PM EDT 05/13/2025 4:28 PM EDT Generic External Data Provider LAB BLOOD ORDERAB LES Final Result Performing Organization Address [facility] Co de Phone Number [facility] [address] [place] [phone] * (ABNORMAL) Comprehensive Metabolic Panel (05/13/2025 4:24 PM EDT) Sodium 135 135 - 145 mmol/L [facility] Potassium 4.5 3.3 - 5.1 mmol/L [facility] Chloride 95(L) 96 - 108 mmol/L [facility] Carbon Dioxide 24 22 - 29 mmol/L [facility] Anion Gap 21(H) 12 - 20 [facility] Urea Nitrogen (BUN) 21(H) 9 - 16 mg/dL [facility] Creatinine, Serum 0.93 0.5 - 1.4 mg/dL [facility] Creatinine Clr Calc Pharmacy 50.5 [facility] Comment:eGFR (calculated fro m the MDRD study equation) and eCrCl(calculated from the Cockcroft-Gault equation) are based ondifferent parameters and may not yield comparable results.If eCrCl result is absurd, please check patient'sheight/weight. Estimated Glomerular Filt Rate >60 [facility] Comment:Chronic Kidney Disea se: Estimated GFR < 60 mL/min/1.87j7Yrgobx Kidney Disease: Estimated GFR < 15 mL/min/1.73m2 Glucose 134(H) 60 - 115 mg/dL [facility] Calcium 9.9 8.4 - 10.2 mg/dL [facility] Bilirubin, Total 0.5 0.0 - 1.0 mg/dL [facility] Aspartate Amino Transferase 45(H) 5 - 37 U/L [facility] Alanine Aminotransferase 12 0 - 40 U/L [facility] Total Protein 7.7 6.5 - 8.0 g/dL [facility] Albumin Level 4.3 3.5 - 5.0 g/dL [facility] Alkaline Phosphatase 107 39 - 117 U/L [facility] 05/13/2025 4:24 PM EDT 05/13/2025 4:28 PM EDT us Generic External Data Provider LAB BLOOD ORDERAB LES Final Result [facility] [address] [place] [phone] * US Scrotum (04/22/2025 9:42 AM EDT) Only the most recent of2 resultswithin the time period is included. Anatomical Region Laterality Modality Body Ultrasound 04/22/2025 9:42 AM EDT Narrative 04/22/2025 9:44 AM EDT [address] [address] Ultrasound Report Signed Patient: Lei Drew MR#: [id number] : 1945 Acct:[id number] Age/Sex: 79 / M ADM Date: 04/22/25 Loc: [facility]: Juliano Akbar MD Ordering Physician: Patricia Wallis [facility]- Date of Service: 04/22/25 Procedure(s): US scrotum Accession Number(s): [id number] cc: Patricia Wallis [facility]; [facility] Reason for Exam: sepsis, hydrocele suspected [...] in OV> 04/22/25942 DD/ 1 TD/TT: 04/22/25941 Plate Glass Installer: Procedure Note Donrogloriater, Image - 04/22/[address] [address] Ultrasound Report Signed Patient: Scottie Drew#: [id number] : 6Acct:[id number] Age/Sex: 79 / MADM Date: 04/22/25 Loc: [facility]: Jluiano Akbar MD Ordering Physician: Patricia Wallis- Date of Service: 04/22/25 Procedure(s): US scrotum Accession Number(s): [id number] cc: Patricia Wallis [facility]; [facility] Reason for Exam: sepsis, hydrocele suspected [...] in OV> 04/22/25942 DD/ 1 TD/TT: 04/22/25941 Plate Glass Installer: us [facility] External Provider IMG US PROCEDURES Edited Result - Final * CT Abdomen Pelvis w/ Contrast (04/21/2025 11:28 PM EDT) Anatomical Region Laterality Modality Body, Pelvis, Abdomen Computed T omography 04/21/2025 11:2 8 PM EDT Narrative 04/21/2025 11:29 PM EDT [place] [address] [address] Scan Report Signed Patient: Lei Drew MR#: [id number] : 1945 Acct:[id number] Age/Sex: 79 / M ADM Date: 04/21/25 Loc: HO.ED Attending Dr: Ordering Physician: Buffy Unger MD Date of Service: 04/21/25 Procedure(s): CT abdomen pelvis w IV con Accession Number(s): [id number] cc: Buffy Unger MD; [facility] Report Number: [id number]: Total DLP = 0.00 mGy-cm Reason for [...] in OV> 04/21/252328 DD/ 27 TD/TT: 04/21/252327 Plate Glass Installer: Procedure Note Donotuseinterpreter, Image - 04/21/[address] [address] [address] Scan Report Signed Patient: Jacqui DrewR#: [id number] : 1945cct:[id number] Age/Sex: 79 / MADM Date: 04/21/25 Loc: HO.ED Attending Dr: Ordering Physician: Buffy Unger MD Date of Service: 04/21/25 Procedure(s): CT abdomen pelvis w IV con Accession Number(s): [id number] cc: Buffy Unger MD; [facility] Report Number: [id number]: Total DLP = 0.00 mGy-cm Reason for [...] in OV> 04/21/252328 DD/ 27 TD/TT: 04/21/252327 Plate Glass Installer: [facility] External Provider IMG CT PROCEDURES Edited Result - Final * CTA Chest PE Protocal (04/21/2025 11:27 PM EDT) Anatomical Region Laterality Modality Body, Chest Computed Tomogra phy 04/21/2025 11:2 7 PM EDT Narrative 04/21/2025 11:28 PM EDT [address] [address] [address] Scan Report Signed Patient: Lei Drew MR#: [id number] : 1945 Acct:[id number] Age/Sex: 79 / M ADM Date: 04/21/25 Loc: .ED Attending Dr: Ordering Physician: Buffy Unger MD Date of Service: 04/21/25 Procedure(s): CT angio chest PE protocol Accession Number(s): [id number] cc: Buffy Unger MD; [facility] Report Number: [id number]: Total DLP = 0.00 mGy-cm Reason for [...] in OV> 04/21/252327 DD/ 26 TD/TT: 04/21/252326 Plate Glass Installer: Procedure Note Donotuseinterpreter, Image - 04/21/[address] [place] [address] [address] Scan Report Signed Patient: Scottie Drew#: [id number] : 6Acct:[id number] Age/Sex: 79 / MADM Date: 04/21/25 Loc: .ED Attending Dr: Ordering Physician: Buffy Unger MD Date of Service: 04/21/25 Procedure(s): CT angio chest PE protocol Accession Number(s): [id number] cc: Buffy Unger MD; [facility] Report Number: [id number]: Total DLP = 0.00 mGy-cm Reason for [...] in OV> 04/21/252327 DD/ 26 TD/TT: 04/21/252326 Plate Glass Installer: [facility] External Provider IMG CT PROCEDURES Edited Result - Final * (ABNORMAL) Urinalysis w/reflex microscopic (04/04/2025 12:15 PM EDT) Color Urine Yellow [facility] Appearance Urine Clear [facility] PH 5.5 5.0 - 9.0 [facility] Glucose Urine UA >=1000(A) Negative mg/dL [facility] Urine Blood Negative Negative [facility] Specific [place] - Urine >=1.030(H) 1.005 - 1.025 [facility] Urine Protein Negative Neg-Trace mg/dL [facility] Urine Ketones Trace Negative mg/dL [facility] Nitrite Urine Negative Negative [facility] Leukocyte Esterase Urine Negative Negative [facility] 04/04/2025 12:1 5 PM EDT 04/04/2025 12:19 PM EDT Narrative [facility] - 04/04/2025 12:25 PM EDT Urine, Catheterized us Generic External Data Provider LAB URINE ORDERAB LES Final Result [facility] [address] [place] [phone] * CT Cervical Spine w/o Contrast (04/04/2025 11:35 AM EDT) Anatomical Region Laterality Modality Spine, C-spine Computed Tomogra phy 04/04/2025 11:3 5 AM EDT Narrative 04/04/2025 12:06 PM EDT [address] [address] [address] Scan Report Signed Patient: Lei Drew MR#: [id number] : 1945 Acct:[id number] Age/Sex: 79 / M ADM Date: 04/04/25 Loc: HO.ED Attending Dr: Ordering Physician: Crescencio Clark MD Date of Service: 04/04/25 Procedure(s): CT cervical spine wo IV con Accession Number(s): [id number] cc: Crescencio Clark MD; [facility] Report Number: [id number]: Total DLP = 268.00 mGy-cm Reason for [...] 04/04/25 1203 DD/ 1135 TD/TT: 04/04/25 1148 Plate Glass Installer: Procedure Note Donotuseinterpreter, Image - 04/04/[address] [place] [address] [address] Scan Report Signed Patient: Scottie Drew#: [id number] : 6Acct:[id number] Age/Sex: 79 / MADM Date: 04/04/25 Loc: HO.ED Attending Dr: Ordering Physician: Crescencio Clark MD Date of Service: 04/04/25 Procedure(s): CT cervical spine wo IV con Accession Number(s): [id number] cc: Crescencio Clark MD; [facility] Report Number: [id number]: Total DLP = 268.00 mGy-cm Reason for [...] 04/04/25 1203 DD/ 1135 TD/TT: 04/04/25 1148 Plate Glass Installer: us [facility] External Provider IMG CT PROCEDURES Edited Result - Final * CT Head w/o Contrast (04/04/2025 11:35 AM EDT) Anatomical Region Laterality Modality Head, Neck Computed Tomogra phy 04/04/2025 11:3 5 AM EDT Narrative 04/04/2025 12:11 PM EDT [address] [address] [address] Scan Report Signed Patient: Lei Drew MR#: [id number] : 1945 Acct:[id number] Age/Sex: 79 / M ADM Date: 04/04/25 Loc: HO.ED Attending Dr: Ordering Physician: Crescencio Clark MD Date of Service: 04/04/25 Procedure(s): CT head/brain wo IV con Accession Number(s): [id number] cc: Crescencio Clark MD; [facility] Report Number: [id number]: Total DLP = 704.00 mGy-cm Reason for [...] 04/04/25 1209 DD/ 1135 TD/TT: 04/04/25 1148 Plate Glass Installer: Procedure Note Donotuseinterpreter, Image - 04/04/[address] [place] [address] [address] Scan Report Signed Patient: Scottie Drew#: [id number] : 1945cct:[id number] Age/Sex: 79 / MADM Date: 04/04/25 Loc: HO.ED Attending Dr: Ordering Physician: Crescencio Clark MD Date of Service: 04/04/25 Procedure(s): CT head/brain wo IV con Accession Number(s): [id number] cc: Crescencio Clark MD; [facility] Report Number: [id number]: Total DLP = 704.00 mGy-cm Reason for [...] 04/04/25 1209 DD/ 1135 TD/TT: 04/04/25 1148 Plate Glass Installer: [facility] External Provider IMG CT PROCEDURES Edited Result - Final * XR Chest 2 Views (04/04/2025 11:24 AM EDT) Anatomical Region Laterality Modality Chest Radiographic Brianna ging 04/04/2025 11:2 4 AM EDT Narrative 04/04/2025 11:31 AM EDT [place] [address] XRay Report Signed Patient: Lei Drew MR#: [id number] : 1945 Acct:[id number] Age/Sex: 79 / M ADM Date: 04/04/25 Loc: HO.ED Attending Dr: Ordering Physician: Patricia Kerr Date of Service: 04/04/25 Procedure(s): XR chest 2V Accession Number(s): [id number] cc: Patricia Kerr; Maria AAbbi Reason for Exam: syncope EXAMINATION: XR CHEST [...] 04/04/25 1129 DD/ 1124 TD/TT: 04/04/25 1124 Plate Glass Installer: Procedure Note Donotuseinterpreter, Image - 04/04/2025 [place] [address] XRay Report Signed Patient: Scottie Drew#: [id number] : 6Acct:[id number] Age/Sex: 79 / MADM Date: 04/04/25 Loc: .ED Attending Dr: Ordering Physician: Patricia Kerr Date of Service: 04/04/25 Procedure(s): XR chest 2V Accession Number(s): [id number] cc: Patricia Kerr; [place] [facility] Reason for Exam: syncope EXAMINATION: XR CHEST [...] 04/04/25 1129 DD/ 1124 TD/TT: 04/04/25 112 Plate Glass Installer: [facility] External Provider IMG XR PROCEDURES Edited Result - Final * Albumin, Random Urine W/Creatinine (05/03/2023 8:36 AM EDT) Creatinine, Urine 54.13 mg/dL [facility] Microalbumin Urine 8.0 mg/L [facility] Microalbum Creatinine Ratio Ur 14.7 <30 ug/mg cr [facility] Comment:Albumin/Creatinine R atio Reference Ranges: Normal: < 30 ug/mg creatinine Microalbuminuria: 30 - 300 ug/mg creatinineClinical Albuminuria: > 300 ug/mg creatinine Urine 05/03/2023 8:36 AM EDT 05/03/2023 11:07 AM EDT [facility] LAB URINE ORDERABLES Final Re sult [facility] [address] [place] [phone] * Lipid Panel, Standard (05/03/2023 8:36 AM EDT) Triglycerides 83 <150 mg/dL [facility] Comment:Desirable Triglyceri de: less than 150 mg/dLBorderline High Triglyceride 150-199 mg/dLHigh Triglyceride: 200-499 mg/dLVery High Triglyceride: greater than or equal to 5OO mg/dL Cholesterol 136 <200 mg/dL [facility] Comment:Desirable Cholestero l: less than 200 mg/dLBorderline High Cholesterol: 200-239 mg/dLHigh Cholesterol: greater than 239 mg/dL LDL Cholesterol Calculated 54 <100 mg/dL [facility] Comment:Desirable LDL: less than 100 mg/dLNear Optimal/Above Optimal LDL: 110- 129 mg/dLBorderline High LDL: 130-159 mg/dLHigh LDL: 160-189 mg/dLVery High LDL: greater than or equal to 190 mg/dL HDL Cholesterol 66 >40 mg/dL [facility] Comment:Desirable HDL: great er than 40 mg/dL Note: This HDL assay may give artificially low results in patients with liver disease. Blood Venous blood specimen / Unknown 05/03/2023 8:36 AM EDT 05/03/2023 11:13 AM EDT [facility] LAB BLOOD ORDERABLES Final Re sult [facility] [address] [place] [phone] * Hepatitis C Antibody with Reflex to HCV, RNA, Quantitative, Real-Time PCR (09/11/2022 3:09 PM EST) Hepatitis C Antibody NON-REACT VAHID NON-REACT VAHID [facility] [place] [facility]neroo Index <0.02 <1.00 [facility] [place] [email or web address] Comment: HCV antibody was non-reactive. There is no laboratory evidence of HCV infection. In most cases, no further action is required. However, if recent HCV exposure is suspected, a test for HCV RNA (test code 63686) is suggested. For additional information please refer to http://education.Toothpick.Downstream/faq/VPV71k7 (This link is being provided for informational/ educational purposes only.) Blood Venous blood specimen / Unknown 09/11/2022 3:09 PM EST 09/11/2022 3:09 PM EST Narrative [facility] - 09/14/2022 1:32 PM EST FASTING:NO FASTING: NO us Abbi Maria A [facility] LAB BLOOD ORDERABLES Final Re sult [facility] [address] [place] [address] [facility] [address] , ([address]) [place] [address] from Last 3 Months or Most Recently Relevant to Health Maintenance Additional Health Concerns Active Problems Noted Date Diagnosed Date Help patients manage their type 2 diabetes 06/06 Weekly blood pressure task 06/06/2025 Help patients manage their type 2 diabetes 06/06 Patient has chronic kidney disease 06/06/2025 Weekly blood pressure task 06/06/2025 Patient has chronic kidney disease 06/06/2025 Weekly blood pressure task 06/11/2025 Weekly blood pressure task 06/11/2025 Patient has chronic kidney disease 06/11/2025 Patient has chronic kidney disease 06/11/2025 Weekly blood pressure task 06/11/2025 Weekly blood pressure task 06/11/2025 Patient has chronic kidney disease 06/11/2025 Patient has chronic kidney disease 06/11/2025 Weekly blood pressure task 06/12/2025 Weekly blood pressure task 06/12/2025 Patient has chronic kidney disease 06/12/2025 Patient has chronic kidney disease 06/12/2025 Insurance [facility] - DQ [employer] HMO SNP Care Teams 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
--- OUTSIDE RECORDS SUMMARY | 2025-06-15 12:52 | XMS_ITS | Encounter Summary ---
Author Organization [employer] Address [address] [place] [address] Care Team Providers Care Program Admin Name Role Phone Maria A [facility] Primary Care Provider [phone] Reason for Visit * Reason Comments Transition Of Care (Tcm) HDF- scheduled and SDOH screening negative and Tobacco screening negative Encounter Details Date Type Department Care Team ([facility] st Contact Info) Description 06/12/2025 Patient Outreach [facility] [address] [place] [address] [facility] [address] [place] [address] Transition Of Care (Tcm) (HDF- scheduled and SDOH screening negative and Tobacco screening negative) Social History Tobacco Use Types Packs/Day Years [...] is your housing situation today? I have leza mosley 06/12/[address] you [...] * Significant Event - Lupe Galindo - 06/12/2025 9:52 AM EST 06/12/25 0950 Hospital Discharges and Admission for [facility] Type of Visit Hospital Admission Date of Admission/Visit 05/28/25 Date of Discharge 06/13/25 Facility Care [facility] Diagnosis hyponitremia Disposition Admitted Follow-Up Actions Follow-Up Needed Provider appointment Follow-Up Outcome Spoke to Caregiver;Booked Appointment Initial Contact Date 06/12/25 RAND Perdue placed outbound call to patient for HDF outreach. Patient's name and were confirmed by daughter Maya. Patient's daughter educated on the importance of follow up with provider following inpatient admission. Patient's daughter offered an HDF appt. Patient's daughter is agreeable to an appointment and has been scheduled for 06/22/2025 at 10:00am with . Insurance verifiedprior to scheduling. Patient's daughter advised to bring to appointment a photo id and insurance card. Patient's daughter also notified that a health center pharmacist will be reaching out to them via telephone prior to their scheduled appointment in order to review their medications in preparationfor their appointment. Patient's daughter provided with education on contacting the Health Center with any questions or concerns prior to the scheduled appointment. Patient's daughter educated on extended clinic hours on Mondays and Wednesdays, and Walk-In Urgent Care Located in [facility] of [facility]. Patient's daughter provided with after-hours line for [facility], , which offer night time triage ser vice and option to transfer to sanitation truck cleaner provider if needed. CC Candy will request Discharge summaryto be scanned into chart. Biggest concern for appointment at this time is no concerns. Appropriate screenings completed in anticipation of appointment. documented in this encounter Plan of Treatment Upcoming Encounters Date Type Department Care Team (Late st Contact Info) Description 06/22/2025 10:00 AM EST Office Visit [facility] [address] [place] [address] Rosanna Cohen DO [address] [place] [address] 09/10/2025 2:15 PM EST Office Visit [facility] ADULT DENTAL [address] [place] [address] Nusrat Lynch [address] [place] [address] documented as of this encounter Goals Goal Patient Goal Type Associated Problems [...] has chronic kidney disease No Lupe Galindo documented as of this encounter Visit Diagnoses Not on filedocumented in this encounter Additional Health Concerns Active Problems Noted Date [...] 06/12/2025 Patient has chronic kidney disease 06/12/2025 Assessment Noted Time PHQ-9 Depression Total Score: 0 07/05/20 11:25 AM EST documented as of this encounter Care Teams Program Admin Relationship Specialty Start Date End Date [place], MEDICAL ADMINISTRATIVE SPECIALIST [address] [place] [address] PCP - General Family Medicine 04/01/23 [place] GARCIA 05/08/24 documented as of this encounter
--- OUTSIDE RECORDS SUMMARY | 2025-06-15 12:52 | XMS_ITS | Encounter Summary ---
Author Organization [facility] Address [address] [place] [address] Phone Care Team Providers Care Core Drill Operator Helper Name Role Phone Abbi Saha ROB Primary Care Provider [phone] Encounter Details Date Type Department Care Team (Late st Contact Info) Description 05/25/2025 Procedure Pass [facility] [address] [place] [address] Social History Tobacco Use Types [...] 05/25/2025 3:15 AM Jillian Mayen RN * [place] Suicide Severity Rating Scale (Screener/Recent Self-Report) Question [...] documented as of this encounter Care Teams Core Drill Operator Helper Relationship Specialty Start Date End Date Abbi ShaaROB [address] [place] [phone] PCP - General Nurse Practitioner 05/24/25 documented as of this encounter Additional Source Comments The information contained in this document represents components of the legal health record. It is not the complete legal health record.[facility]
--- OUTSIDE RECORDS SUMMARY | 2025-06-15 12:52 | XMS_ITS | Clinical Summary ---
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 Active dabrafenib (TAFINLAR) 75 mg capsule Take 150 mg by mouth every 12 (twelve) hours. 05/18/2025 Active metFORMIN (GLUCOPHAGE) 1000 MG immediate release tablet Take 1,000 mg by mouth every 12 (twelve) hours. 09/08/2024 Active CREON 24,000-76,000 -120,000 unit CpDR Take 24,000 units of lipase by mouth 3 (three) times a day with meals. 04/19/2024 Active magnesium oxide 400 mg magnesium Cap Take 1 capsule by mouth every morning. 04/23/2025 Active mirtazapine (REMERON) 7.5 MG tablet Take 7.5 mg by mouth nightly at bedtime. 04/19/2025 Active omeprazole (PRILOSEC) 20 MG capsule Take 1 capsule by mouth 2 (two) times a day. 04/23/2025 Active ondansetron (ZOFRAN) 4 MG tablet Take 4 mg by mouth every 8 (eight) hours as needed for nausea. 05/18/2025 Active JANUVIA 25 mg tablet Take 25 mg by mouth daily. 09/08/2024 Active tamsulosin (FLOMAX) 0.4 mg Cap Take 0.4 mg by mouth daily. 05/18/2025 Active MEKINIST 2 mg tablet Take 2 mg by mouth daily. 05/18/2025 Active terazosin (HYTRIN) 5 MG capsule Take 5 mg by mouth nightly at bedtime. 05/19/2025 Active traZODone (DESYREL) 50 MG tablet Take 50 mg by mouth nightly at bedtime. 05/19/2025 Active Active Problems Problem Noted Date Diagnosed Date Fever 05/26/2025 Assessment & Plan (05/27/2025 3:20 PM EST): Temp to 101.5 2 days ago, no localizing symptoms, none since. Noted in the H&P that his daughter noted that he had a rigor at the nursing facility prior to admission. No fevers were documented there. Workup here thus far has included CBC, chest x-ray and abdominal CT all of which are negative. -He received 2 g ceftriaxone in the ED 3 days ago; no additional antibiotics thus far - Procalcitonin elevated at 5.2 - Urine cx negative - Pat remains in placed for urinary retention-- TOV in am - Monitor off antibiotics - Blood cultures are thus far and negative - This could be related to his underlying neoplasm Assessment & Plan (05/26/2025 1:14 PM EST): Temp to 101.5 yesterday, no localizing symptoms. Noted in the H&P that his daughter noted that he had a rigor at the nursing facility prior to admission. No fevers were documented there. Workup here thus far has included CBC, chest x-ray and abdominal CT all of which are negative. -He received 2 g ceftriaxone in the ED 2 days ago; no additional antibiotics thus far - Procalcitonin elevated at 5.2 - Check urine with reflex to culture, urine appears clear - Pat remains in placed for urinary retention - Monitor off antibiotics - Blood cultures obtained last night are thus far and negative - This could be related to his underlying neoplasm Urinary retention 05/26/2025 Assessment & Plan (05/27/2025 3:20 PM EST): Pat was placed in the ED when he was scanned for 1300 cc urine in the bladder. - Continue Pat for now - Resume Flomax - TOV in am Assessment & Plan (05/26/2025 1:14 PM EST): Pat was placed in the ED when he was scanned for 1300 cc urine in the bladder. - Continue Pat for now - Resume Flomax - TOV in 1 to 2 days Altered mental status, unspe cified altered mental status type 05/25/2025 Assessment & Plan (05/28/2025 9:27 AM EST): Likely secondary to recent urosepsis and new onset acute on chronic hyponatremia Assessment & Plan (05/27/2025 3:20 PM EST): Presumably toxic metabolic encephalopathy although deep stroke also possible; improved with treatment of hyponatremia CT head with no acute intracranial abnormality. No vascular abnormality He's tangential, but otherwise appears to be at baseline Family updated today Assessment & Plan (05/26/2025 1:14 PM EST): Presumably toxic metabolic encephalopathy although deep stroke also possible; improved with treatment of hyponatremia CT head with no acute intracranial abnormality. No vascular abnormality He's tangential, but otherwise appears to be at baseline Assessment & Plan (05/25/2025 5:46 PM EST): Presumably toxic metabolic encephalopathy although deep stroke also possible We will monitor clinically, treat sodium, there are no signs of infection at this time he has been treated with 2 g of ceftriaxone in the emergency room although at this time I do not see a reason to continue such. CT head with no acute intracranial abnormality. No vascular abnormality CT abd given tenderness on exam shows no acute infectious inflammatory process in the abdomen or pelvis. Monitor for fever white count etc., he just completed antibiotics ciprofloxacin 2 days ago. 05/25 Patient awake and alert oriented x 2 son at bedside notes he is approaching baseline. Some forgetfulness . -Will hold on MRI as patient now back to baseline. Assessment & Plan (05/25/2025 8:10 AM EST): Likely secondary to recent urosepsis and new onset acute on chronic hyponatremia Assessment & Plan (05/25/2025 3:02 AM EST): Presumably toxic metabolic encephalopathy although deep stroke also possible We will monitor clinically, treat sodium, there are no signs of infection at this time he has been treated with 2 g of ceftriaxone in the emergency room although at this time I do not see a reason to continue such. CT abd pending given tenderness on exam Monitor for fever white count etc., he just completed antibiotics ciprofloxacin 2 days ago. Patient not markedly improving in the morning would consider MRI expanding the differential For now he will be n.p.o. as he is somnolent enough he is not able to eat I anticipate this can be reassessed in the morning. 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 Urinary bladder retention itself may have further contributed to nonosmotic stimulation of LEACH TANK TENDER release associated with pain discomfort sympathetic activation as a result of bladder distention. Doubt other disorders such as thyroid or adrenal gland at the present time no concerns for renal sodium wasting or cerebral salt wasting. There is no evidence of pseudohyponatremia glucose levels have been stable. Recommendations - Sodium levels remain 129-131 stable close to his baseline. - Continue to keep fluid restriction 1200 mL daily -Will hold off on further intervention -Continue with nutritional recommendations to optimize protein calorie intake. Assessment & Plan (05/27/2025 3:20 PM EST): Patient with history of hyponatremia going back years. Sodium 132 on 05/21 however repeat check at the longterm 05/23 revealed sodium 125. He was given half-normal saline at 80 mL/h and then presented with altered mental status and a sodium of 122. In the ER he was treated with 2 L LR and sodium increased to 126. He has put out over 2 L of urine in the 4 hours he has been here in the emergency room via Pat with some concern for likely urinary retention. Urine Na> 30 and U Osm >100 consistent with SIADH TSH within normal limits at 2.64 Sodium 132 Seen by nephrology - Cont Fluid restriction 1200 mg daily - no mention of Urea 15 mg p.o. twice daily in the nephrology note,; it has not been ordered - monitor bmp daily Assessment & Plan (05/26/2025 1:14 PM EST): Patient with history of hyponatremia going back years. Sodium 132 on 05/21 however repeat check at the longterm 05/23 revealed sodium 125. He was given half-normal saline at 80 mL/h and then presented with altered mental status and a sodium of 122. In the ER he was treated with 2 L LR and sodium increased to 126. He has put out over 2 L of urine in the 4 hours he has been here in the emergency room via Pat with some concern for likely urinary retention. Urine Na> 30 and U Osm >100 consistent with SIADH TSH within normal limits at 2.64 Sodium 129 Seen by nephrology - Cont Fluid restriction 1200 mg daily - no mention of Urea 15 mg p.o. twice daily in the nephrology note,; it has not been ordered - monitor bmp daily Assessment & Plan (05/25/2025 5:46 PM EST): Patient with history of hyponatremia going back years. Sodium 132 on 05/21 however repeat check at the longterm 05/23 revealed sodium 125. He was given half-normal saline at 80 mL/h and then presented with altered mental status and a sodium of 122. In the ER he was treated with 2 L LR and sodium increased to 126. He has put out over 2 L of urine in the 4 hours he has been here in the emergency room via Pat with some concern for likely urinary retention. Urine Na> 30 and U Osm >100 consistent with SIADH will rule out AI and hypothyroid with labs in AM TSH within normal limits at 2.64 Sodium now 128 Seen by nephrology - Fluid restriction 1200 mg daily Urea 15 mg p.o. twice daily with expected increase in sodium to 132-130 for the next 24 hours - Check sodium every 8 hours as patient now awake and alert. 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 Urinary bladder retention itself may have further contributed to nonosmotic stimulation of LEACH TANK TENDER release associated with pain discomfort sympathetic activation as a result of bladder distention. Doubt other disorders such as thyroid or adrenal gland at the present time no concerns for renal sodium wasting or cerebral salt wasting. There is no evidence of pseudohyponatremia glucose levels have been stable. Assessment & Plan (05/25/2025 2:59 AM EST): Patient with history of hyponatremia going back years. Sodium 132 on 05/21 however repeat check at the longterm 05/23 revealed sodium 125. He was given half-normal saline at 80 mL/h and then presented with altered mental status and a sodium of 122. In the ER he was treated with 2 L LR and sodium now is 126. He has put out over 2 L of urine in the 4 hours he has been here in the emergency room via Pat with some concern for likely urinary retention. Urine Na> 30 and U Osm >100 consistent with SIADH will rule out AI and hypothyroid with labs in AM Check Na Q4 given AMS and variable tx. Type 2 diabetes mellitus, [facility] long-term current use of insulin 05/25/2025 Assessment & Plan (05/28/2025 9:27 AM EST): Assessment & Plan (05/27/2025 3:20 PM EST): Patient was recently begun on Jardiance and continued on metformin at his longterm. Oral meds held on admission. Blood sugars moderately well-controlled - Monitor with POC AC and at bedtime and lispro sliding scale coverage -carbohydrate consistent diet. Assessment & Plan (05/26/2025 1:14 PM EST): Patient was recently begun on Jardiance and continued on metformin at his longterm. Oral meds held on admission. Blood sugars moderately well-controlled - Monitor with POC AC and at bedtime and lispro sliding scale coverage -Patient now awake and alert start carbohydrate consistent diet. Assessment & Plan (05/26/2025 11:51 AM EST): Assessment & Plan (05/25/2025 5:46 PM EST): Patient was recently begun on Jardiance and continued on metformin at his longterm. Oral meds held on admission. Blood sugars moderately well-controlled - Monitor with POC AC and at bedtime and lispro sliding scale coverage -Patient now awake and alert start carbohydrate consistent diet. Assessment & Plan (05/25/2025 8:10 AM EST): Assessment & Plan (05/25/2025 2:59 AM EST): Patient was recently begun on Jardiance and continued on metformin at his longterm. He is not acidotic hyperglycemic here. We will hold these oral agents for now begin sliding scale insulin with meals Metastatic non-small cell lung cancer 05/25/2025 Assessment & Plan (05/27/2025 3:20 PM EST): On two oral therapies Dabrafenib and trametinib Managed at [facility] Informed in ER of metastatic status, family was unaware. Will hold meds as not available currently. Assessment & Plan (05/26/2025 1:14 PM EST): On two oral therapies Dabrafenib and trametinib Managed at [facility] Informed in ER of metastatic status, family was unaware. Will hold meds as not available currently. Assessment & Plan (05/25/2025 5:46 PM EST): On two oral therapies Dabrafenib and trametinib Managed at [facility] Informed in ER of metastatic status, family was unaware. Will hold meds as not available currently. Assessment & Plan (05/25/2025 2:59 AM EST): On two oral therapies Dabrafenib and trametinib Managed at [facility] Informed in ER of metastatic status, family was unaware. Will hold meds as not available currently. Do not resuscitate status with supporting docume ntation 05/25/2025 Assessment & Plan (05/25/2025 3:02 AM EST): Images from the original note were not included. ER provider had an extensive conversation with the family after disclosing that his cancer was noncurable. She was to family real estate services administrator is my understanding and family seemed quite satisfied I confirmed their understanding of the situation and indeed they want him to be DNR/DNI this is a change from prior. They have filled out a form together with her which is at the bedside here. 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 Will refer back to oncology team at [facility]. 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 Will refer back to oncology team at [facility]. Assessment & Plan (05/25/2025 5:46 PM EST): Few scattered pancreatic hypodensities likely brachial intraductal mucinous neoplasm recommend abdominal MRI/MRCP for further assessment. Will refer back to oncology team at [facility]. Encounters Date Type Department Care Team Description 06/11/2025 Lab Requisition [facility] Lab Main [address] [place] [id number] Dee Dee Geronimo MD Syndrome of inappropriate secretion of antidiuretic hormone; Hydrocele, unspecified; Type 2 diabetes mellitus without complications; Benign prostatic hyperplasia without lower urinary tract symptoms 06/04/2025 Lab Requisition [facility] Lab Main [address] [place] [id number] Dee Dee Geronimo MD Hypo-osmolality and hyponatremia; Syndrome of inappropriate secretion of antidiuretic hormone 05/29/2025 Lab Requisition [facility] Lab Main [address] [place] [id number] Dee Dee Geronimo MD Illness, unspecified 05/25/2025 Procedure Pass [facility] - Main [address] [address] 05/25/2025 Procedure [facility], Ct Scan - [facility] [address] [place] [address] 05/24/2025 9:34 PM EST - 05/28/2025 4:30 PM EST Hospital Encounter [facility] [address] [place] [address] Erica Lagunas MD Savage, Justin G, Citlali Nath MD Albury, Lois C, MD Russo, Margaret A, MD Discharge Disposition: Home or Self Care 05/24/2025 Procedure [facility], Ct Scan [facility] [address] [place] [address] 05/23/2025 Lab Requisition [facility] Lab [address] [address] Dee Dee Geronimo MD Sepsis, unspecified organism; Type 2 diabetes mellitus without complications 05/23/2025 Lab Requisition [facility] Lab [address] [address] Dee Dee Geronimo MD Elevated white blood cell count, unspecified 05/21/2025 Lab Requisition [facility] Lab [address] [address] Dee Dee Geronimo MD Illness, unspecified 05/18/2025 11:32 AM EDT - 05/18/2025 11:59 PM EDT Hospital Encounter [facility] [address] [place] [address] Dee Dee Geronimo MD Discharge Disposition: Home or Self Care from Last 3 Months Social History Tobacco Use Types Packs/Day Years Used Date Smoking Tobacco: Never Tobacco Cessation:Counseling Given: Not Answered Education Answer Date Recorded Are you interested [...] Sign Reading Time Taken Comments Blood Pressure 112/64 05/28/2025 12:43 PM EST Pulse 76 05/28/2025 12:43 PM EST Temperature 35.7 C (96.3 F) 05/28/2025 12:43 PM EST Respiratory Rate 17 05/28/2025 12:43 PM EST Oxygen Saturation 96% 05/28/2025 12:43 PM EST Inhaled Oxygen Concentration - - Weight 69.1 kg (152 lb 4.8 oz) 05/24/2025 11:26 PM EST Height 157.5 cm (5' 2.01 ) 05/24/2025 11:[address] Body Mass Index 27.85 05/24/2025 11:26 PM EST Plan of Treatment Health Maintenance Due Date Last Done Comments Adult Td,Tdap Booster 1945 BLOOD PRESSURE 1946 DEPRESSION SCREENING 1958 HEPATITIS C SCREENING 1964 PNEUMOCOCCAL VACCINES (50+ years) (1 of 2 - PCV) 1965 ZOSTER VACCINES (1 of 2) 1965 SMOKING STATUS SCREENING (Once After 26 Yrs) 1972 RSV VACCINE (1 - 1-dose 75+ series) 2021 INFLUENZA VACCINE (#1) 2025 COVID-19 VACCINE (1 - 2024- season) 2025 DIABETIC EYE EXAM 05/25/2025 URINE MICROALBUMIN/CREATININE RATIO 05/25/2025 HEMOGLOBIN A1C 11/21/2025 05/24/2025, 04/0 03/2025, 07/05/2024 CREATININE LEVEL 06/11/2026 06/11/2025, , 05/29/2025, Additional history exists HEPATITIS A VACCINES Aged Out No long er eligible based on patient's age to complete this topic HIB VACCINES Aged Out No longer eligi ble based on patient's age to complete this topic MENINGOCOCCAL VACCINES (ACWY) Aged Out No longer eligible based on patient's age to complete this topic MENINGOCOCCAL VACCINES (B) Aged Out N o longer eligible based on patient's age to complete this topic Medical Devices Not on file Procedures Procedure Name Priority Date/Time Associated Diagnosis Comments MAGNESIUM Today 06/11/2025 6:39 AM EST Syndrome of inappropriate secretion of antidiuretic hormone Hydrocele, unspecified Type 2 diabetes mellitus without complications Benign prostatic hyperplasia without lower urinary tract symptoms CBC Today 06/11/2025 6:39 AM EST Syndrome of inappropriate secretion of antidiuretic hormone Hydrocele, unspecified Type 2 diabetes mellitus without complications Benign prostatic hyperplasia without lower urinary tract symptoms COMPREHENSIVE METABOLIC PANEL (CMP) Today 06/11/2025 6:39 AM EST Syndrome of inappropriate secretion of antidiuretic hormone Hydrocele, unspecified Type 2 diabetes mellitus without complications Benign prostatic hyperplasia without lower urinary tract symptoms CBC Today 06/04/2025 6:10 AM EST Hypo-osmolality and hyponatremia Syndrome of inappropriate secretion of antidiuretic hormone MAGNESIUM Today 06/04/2025 6:10 AM EST Hypo-osmolality and hyponatremia Syndrome of inappropriate secretion of antidiuretic hormone COMPREHENSIVE METABOLIC PANEL (CMP) Today 06/04/2025 6:10 AM EST Hypo-osmolality and hyponatremia Syndrome of inappropriate secretion of antidiuretic hormone CBC Today 05/29/2025 8:05 AM EST Illness, unspecified COMPREHENSIVE METABOLIC PANEL (CMP) Today 05/29/2025 8:05 AM EST Illness, unspecified BASIC METABOLIC PANEL (BMP) Routine 05/28/2025 12:29 PM EST POCT GLUCOSE Routine 05/28/2025 11:27 AM EST POCT GLUCOSE Routine 05/28/2025 7:19 AM EST BASIC METABOLIC PANEL (BMP) Routine 05/28/2025 5:30 AM EST POCT GLUCOSE Routine 05/27/2025 11:12 PM EST POCT GLUCOSE Routine 05/27/2025 7:54 PM EST POCT GLUCOSE Routine 05/27/2025 4:37 PM EST POCT GLUCOSE Routine 05/27/2025 4:31 PM EST POCT GLUCOSE Routine 05/27/2025 11:33 AM EST CBC AND DIFFERENTIAL Routine 05/27/2025 7:59 AM EST CBC AND DIFFERENTIAL Routine 05/27/2025 7:59 AM EST BASIC METABOLIC PANEL (BMP) Routine 05/27/2025 7:59 AM EST POCT GLUCOSE Routine 05/27/2025 7:43 AM EST POCT GLUCOSE Routine 05/26/2025 7:48 PM EST POCT GLUCOSE Routine 05/26/2025 4:32 PM EST URINE SEDIMENT Today 05/26/2025 12:20 PM EST URINALYSIS WITH REFLEX TO URINE CULTURE Routine 05/26/2025 12:20 PM EST URINE CULTURE Today 05/26/2025 12:20 PM EST POCT GLUCOSE Routine 05/26/2025 11:13 AM EST POCT GLUCOSE Routine 05/26/2025 7:27 AM EST CBC AND DIFFERENTIAL Routine 05/26/2025 6:11 AM EST C-REACTIVE PROTEIN (CRP) Routine 05/26/2025 6:11 AM EST CBC AND DIFFERENTIAL Routine 05/26/2025 6:11 AM EST PROCALCITONIN Routine 05/26/2025 6:11 AM EST BASIC METABOLIC PANEL (BMP) Timed 05/26/2025 6:11 AM EST POCT GLUCOSE Routine 05/26/2025 5:53 AM EST BASIC METABOLIC PANEL (BMP) Timed 05/25/2025 10:54 PM EST SARS-COV-2, PCR CEPHEID STAT 05/25/2025 10:28 PM EST COVID PANDEMIC RESPIRATORY VIRAL ORDER (PRO) STAT 05/25/2025 10:28 PM EST MRI BRAIN WITH AND WITHOUT CONTRAST Routine 05/25/2025 9:37 PM EST POCT GLUCOSE Routine 05/25/2025 9:03 PM EST POCT GLUCOSE Routine 05/25/2025 7:12 PM EST BASIC METABOLIC PANEL (BMP) Timed 05/25/2025 4:29 PM EST POCT GLUCOSE Routine 05/25/2025 10:41 AM EST BASIC METABOLIC PANEL (BMP) Timed 05/25/2025 8:02 AM EST POCT GLUCOSE Routine 05/25/2025 6:55 AM EST BASIC METABOLIC PANEL (BMP) Timed 05/25/2025 6:53 AM EST CBC AND DIFFERENTIAL Routine 05/25/2025 3:53 AM EST LACTATE (BLOOD GAS) Routine 05/25/2025 3 :53 AM EST CBC AND DIFFERENTIAL Routine 05/25/2025 3:53 AM EST PT-INR Routine 05/25/2025 3:52 AM EST COMPREHENSIVE METABOLIC PANEL (CMP) Routine 05/25/2025 3:52 AM EST PHOSPHORUS Routine 05/25/2025 3:52 AM EST MAGNESIUM Routine 05/25/2025 3:[address] ABDOMEN/PELVIS WITH CONTRAST STAT 05/25/2025 2:17 AM EST MAGNESIUM STAT 05/25/2025 1:56 AM EST OSMOLALITY, SERUM STAT 05/25/2025 12: 57 AM EST TROPONIN STAT 05/25/2025 12:48 AM EST LACTATE (BLOOD GAS) STAT 05/25/2025 1 2:48 AM EST BASIC METABOLIC PANEL (BMP) STAT 05/25/2025 12:48 AM EST LAB ADD-ON STAT 05/25/2025 12:33 AM EST XR CHEST PORTABLE Routine 05/24/2025 11: 11 PM EST SARS-COV-2, INFLUENZA A/B, PCR TIFFANIE STAT 05/24/2025 11:09 PM EST COVID PANDEMIC RESPIRATORY VIRAL ORDER (PRO) STAT 05/24/2025 11:[address] ANGIO HEAD WITH AND WITHOUT CONTRAST, CT ANGIO NECK WITH CONTRAST STAT 05/24/2025 11:01 PM EST BLOOD CULTURE, ROUTINE STAT 05/24/2025 10:37 PM EST BLOOD CULTURE, ROUTINE STAT 05/24/2025 10:37 PM EST TYPE AND SCREEN (ABO, RH, ANTIBODY SCREEN) STAT 05/24/2025 10:34 PM EST CBC AND DIFFERENTIAL STAT 05/24/2025 10:34 PM EST HEMOGLOBIN A1C STAT 05/24/2025 10:34 PM EST SEDIMENTATION RATE (ESR) STAT 05/24/2025 10:34 PM EST C-REACTIVE PROTEIN (CRP), HIGH SENSITIVITY STAT 05/24/2025 10:34 PM EST LIPID PANEL STAT 05/24/2025 10:34 PM EST TSH WITH REFLEX STAT 05/24/2025 10:34 PM EST ETHANOL, BLOOD STAT 05/24/2025 10:34 PM EST TYPE AND SCREEN (ABO,RH,ANTIBODY SCREEN) STAT 05/24/2025 10:34 PM EST TROPONIN STAT 05/24/2025 10:34 PM EST PT-INR STAT 05/24/2025 10:34 PM EST LFTS (HEPATIC PANEL) STAT 05/24/2025 10:34 PM EST MAGNESIUM STAT 05/24/2025 10:34 PM EST BASIC METABOLIC PANEL (BMP) STAT 05/24/2025 10:34 PM EST CBC AND DIFFERENTIAL STAT 05/24/2025 10:34 PM EST LACTATE (BLOOD GAS) STAT 05/24/2025 1 0:33 PM EST VENOUS BLOOD GAS STAT 05/24/2025 10:3 3 PM EST CREATININE (RANDOM URINE) STAT 05/24/2025 9:57 PM EST SODIUM, RANDOM URINE STAT 05/24/2025 9:57 PM EST OSMOLALITY (URINE, RANDOM) STAT 05/24/2025 9:57 PM EST TOXICOLOGY SCREEN, URINE STAT 05/24/2025 9:57 PM EST URINALYSIS WITH REFLEX TO URINE CULTURE STAT 05/24/2025 9:57 PM EST ECG 12-LEAD STAT 05/24/2025 9:46 PM EST ABO2F - 2ND TYPE (NEW SAMPLE) STAT 05/23/2025 8:22 PM EST CBC AND DIFFERENTIAL Today 05/23/2025 8:22 PM EST Sepsis, unspecified organism Type 2 diabetes mellitus without complications CBC AND DIFFERENTIAL Today 05/23/2025 8:22 PM EST Sepsis, unspecified organism Type 2 diabetes mellitus without complications BASIC METABOLIC PANEL (BMP) Today 05/23/2025 8:22 PM EST Sepsis, unspecified organism Type 2 diabetes mellitus without complications URINALYSIS Today 05/23/2025 11:20 AM EST Elevated white blood cell count, unspecified URINE CULTURE Today 05/23/2025 11:20 AM EST Elevated white blood cell count, unspecified CBC Today 05/21/2025 11:42 AM EST Illness, unspecified COMPREHENSIVE METABOLIC PANEL (CMP) Today 05/21/2025 11:42 AM EST Illness, unspecified COMPREHENSIVE METABOLIC PANEL (CMP) Routine 05/18/2025 5:38 AM EDT Malignant neoplasm of main bronchus, unspecified laterality Urinary tract infection without hematuria, site unspecified CBC Routine 05/18/2025 5:38 AM EDT Malignant neoplasm of main bronchus, unspecified laterality Urinary tract infection without hematuria, site unspecified from Last 3 Months Results * (ABNORMAL) Comprehensive Metabolic Panel (CMP) (06/11/2025 6:39 AM EST) Only the most recent of6 resultswithin the time period is included. Sodium 135(L) 136 - 145 mmol/L 06/11/2025 10:53 AM EST [facility] Potassium 4.4 3.4 - 5.1 mmol/L 06/11/2025 10:53 AM EST [facility] Chloride 101 98 - 107 mmol/L 06/11/2025 10:53 AM [facility] CO2 23 20 - 31 mmol/L 06/11/2025 10:53 AM [facility] Anion Gap 11 3 - 17 mmol/L 06/11/2025 10:53 AM [facility] BUN 15 6 - 23 mg/dL 06/11/2025 10:53 AM [facility] Creatinine 0.50(L) 0.60 - 1.30 mg/dL 06/11/2025 10:53 AM [facility] eGFR 104 >59 mL/min/1.7 3m2 06/11/2025 10:53 AM [facility] Comment:Estimated glomerular filtration rate calculated using the CKD-EPI refit equation. Glucose 96 70 - 99 mg/dL 06/11/2025 10:53 AM [facility] Calcium 9.4 8.5 - 10.5 mg/dL 06/11/2025 10:53 AM [facility] AST 14 <40 U/L 06/11/2025 10:53 AM [facility] ALT 10 <50 U/L 06/11/2025 10:53 AM [facility] Alkaline Phosphatase 122 40 - 130 U/L 06/11/2025 10:53 AM [facility] Bilirubin, Total 0.3 0.0 - 1.2 mg/dL 06/11/2025 10:53 AM [facility] Total Protein 6.7 6.4 - 8.3 g/dL 06/11/2025 10:53 AM [facility] Albumin 3.9 3.5 - 5.2 g/dL 06/11/2025 10:53 AM [facility] Globulin 2.8 1.9 - 4.1 g/dL 06/11/2025 10:53 AM [facility] Blood (Blood) 06/11/2025 6:3 9 AM EST 06/11/2025 8:16 AM EST us Dee Dee Geronimo MD LAB BLOOD BKR ORDERABLES Final Result [facility] [address] [place] [address] * (ABNORMAL) CBC (06/11/2025 6:39 AM EST) Only the most recent of5 resultswithin the time period is included. WBC 8.41 4.00 - 11.00 K/uL 06/11/2025 9:03 AM [facility] RBC 3.82(L) 4.50 - 5.90 M/uL 06/11/2025 9:03 AM [facility] Hemoglobin 10.6(L) 13.5 - 17.5 g/dL 06/11/2025 9:03 AM [facility] Hematocrit 32.6(L) 41.0 - 53.0 % 06/11/2025 9:03 AM [facility] MCV 85.3 80.0 - 100.0 fL 06/11/2025 9:03 AM [facility] MCH 27.7 27.0 - 31.0 pg 06/11/2025 9:03 AM [facility] MCHC 32.5 32.0 - 36.0 g/dL 06/11/2025 9:03 AM [facility] PLT 426 150 - 450 K/uL 06/11/2025 9:03 AM [facility] MPV 8.5 8.4 - 12.0 fL 06/11/2025 9:03 AM [facility] RDW-CV 15.9(H) 11.5 - 14.5 % 06/11/2025 9:03 AM [facility] Absolute NRBC 0.00 <=0.00 K cells/uL 06/11/2025 9:03 AM [facility] NRBC 0.0 <=0.0 /100 WBCs 06/11/2025 9:03 AM [facility] Blood (Blood) 06/11/2025 6:3 9 AM EST 06/11/2025 8:16 AM EST us Dee Dee Geronimo MD LAB BLOOD BKR ORDERABLES Final Result [facility] [address], [place] [id number] * (ABNORMAL) Magnesium (06/11/2025 6:39 AM EST) Only the most recent of5 resultswithin the time period is included. Magnesium 1.4(L) 1.7 - 2.6 mg/dL 06/11/2025 10:53 AM [facility] Blood (Blood) 06/11/2025 6: 39 AM EST 06/11/2025 8:16 AM EST Dee Dee Geronimo MD LAB BLOOD BKR ORDERABLES Final Result [facility] [address] [place] [address] * (ABNORMAL) Basic Metabolic Panel (BMP) (05/28/2025 12:29 PM EST) Only the most recent of11 resultswithin the time period is included. Sodium 130(L) 136 - 145 mmol/L 05/28/2025 1:47 PM [facility] Potassium 4.5 3.4 - 5.1 mmol/L 05/28/2025 1:47 PM [facility] Chloride 95(L) 98 - 107 mmol/L 05/28/2025 1:47 PM [facility] CO2 25 20 - 31 mmol/L 05/28/2025 1:47 PM [facility] Anion Gap 10 3 - 17 mmol/L 05/28/2025 1:47 PM [facility] BUN 11 6 - 23 mg/dL 05/28/2025 1:47 PM [facility] Creatinine 0.50(L) 0.60 - 1.30 mg/dL 05/28/2025 1:47 PM [facility] eGFR 104 >59 mL/min/1.7 3m2 05/28/2025 1:47 PM [facility] Comment:Estimated glomerular filtration rate calculated using the CKD-EPI refit equation. Glucose 201(H) 70 - 99 mg/dL 05/28/2025 1:47 PM [facility] Calcium 9.5 8.5 - 10.5 mg/dL 05/28/2025 1:47 PM [facility] Blood (Blood) Venipuncture / Unknown 05/28/2025 12:29 PM EST 05/28/2025 12:34 PM EST Bishnu Lei CNP LAB BLOOD BKR ORDERABLES Final Result Performing Organization Address [facility]/ZIP Co de Phone Number [address] [address] * (ABNORMAL) POCT Glucose (05/28/2025 11:27 AM EST) Only the most recent of17 resultswithin the time period is included. Glucose 242(H) 70 - 99 mg/dL 05/28/2025 11:34 AM [facility] Blood (Blood) 05/28/2025 11: 27 AM EST 05/28/2025 11:34 AM EST Bushra Woods MD LAB POCT DOCKED DEVICE UNSOL ICTED RESULTS Final Result Performing Organization Address [facility]/ZIP Co de Phone Number [address] [address] * (ABNORMAL) CBC and Differential (05/27/2025 7:59 AM EST) Only the most recent of5 resultswithin the time period is included. WBC 4.74 4.00 - 11.00 K/uL 05/27/2025 8:10 AM [facility] RBC 3.90(L) 4.50 - 5.90 M/uL 05/27/2025 8:10 AM [facility] Hemoglobin 11.0(L) 13.5 - 17.5 g/dL 05/27/2025 8:10 AM [facility] Hematocrit 32.2(L) 41.0 - 53.0 % 05/27/2025 8:10 AM [facility] MCV 82.6 80.0 - 100.0 fL 05/27/2025 8:10 AM [facility] MCH 28.2 27.0 - 31.0 pg 05/27/2025 8:10 AM [facility] MCHC 34.2 32.0 - 36.0 g/dL 05/27/2025 8:10 AM [facility] MPV 8.2(L) 8.4 - 12.0 fL 05/27/2025 8:10 AM [facility] RDW-CV 13.9 11.5 - 14.5 % 05/27/2025 8:10 AM [facility] PLT 258 150 - 450 K/uL 05/27/2025 8:10 AM [facility] Neutrophils 58.7 % 05/27/2025 8:10 AM [facility] Lymphocytes 22.6 % 05/27/2025 8:10 AM [facility] Monocytes 13.7 % 05/27/2025 8:10 AM [facility] Eosinophils 4.0 % 05/27/2025 8:10 AM [facility] Basophils 0.8 % 05/27/2025 8:10 AM [facility] Imm Grans 0.2 % 05/27/2025 8:10 AM [facility] NRBC 0.0 <=0.0 /100 WBCs 05/27/2025 8:10 AM [facility] Absolute Neutrophils 2.78 1.92 - 7.60 K/uL 05/27/2025 8:10 AM [facility] Absolute Lymphocytes 1.07 0.72 - 4.10 K/uL 05/27/2025 8:10 AM [facility] Absolute Monocytes 0.65 0.16 - 1.10 K/uL 05/27/2025 8:10 AM [facility] Absolute Eosinophils 0.19 0.00 - 0.50 K/uL 05/27/2025 8:10 AM [facility] Absolute Basophils 0.04 0.00 - 0.15 K/uL 05/27/2025 8:10 AM [facility] Absolute Imm Grans 0.01 0.00 - 0.09 K/uL 05/27/2025 8:10 AM [facility] Absolute NRBC 0.00 <=0.00 K cells/uL 05/27/2025 8:10 AM [facility] Absolute Neutrophils 2.78 1.92 - 7.60 K/uL 05/27/2025 8:10 AM [facility] Comment:Automated cell count . Manual ANC may differ if performed. Diff Type Auto 05/27/2025 8:10 AM [facility] Blood (Blood) Venipuncture / Unknown 05/27/2025 7:59 AM EST 05/27/2025 8:05 AM EST us Bushra Woods MD LAB BLOOD BKR ORDERABLES George al Result [address] [address] * (ABNORMAL) Urinalysis with Reflex to Urine Culture (05/26/2025 12:20 PM EST) Only the most recent of2 resultswithin the time period is included. Color Yellow Yellow 05/26/2025 1:08 PM [facility] Clarity Clear Clear 05/26/2025 1:08 PM [facility] Glucose Negative Negative 05/26/2025 1:08 PM [facility] Bilirubin Urine Negative Negative 1:08 PM [facility] Ketone Urine Trace(A) Negative 05/26/2025 1:08 PM [facility] Specific [place] 1.020 1.001 - 1.035 05/26/2025 1:08 PM [facility] Blood 1+(A) Negative 05/26/2025 1:08 PM [facility] pH 5.5 5.0 - 8.0 05/26/2025 1:08 PM [facility] Protein Trace(A) Negative 05/26/2025 1:08 PM [facility] Nitrites Negative Negative 05/26/2025 1:08 PM [facility] Leukocyte Esterase 1+(A) Negative 05/26/2025 1:08 PM [facility] Urobilinogen Negative Negative 05/26/2025 1:08 PM [facility] Urine (Urine, Voided) Non-Blood Collection / Unknown 05/26/2025 12:20 PM EST 05/26/2025 12:39 PM EST Bushra Woods MD LAB URINE ORDERABLES Final R esult Performing Organization Address City/[facility]/ZIP Co de Phone Number [address] [phone] * Urine Culture (05/26/2025 12:20 PM EST) Only the most recent of2 resultswithin the time period is included. Urine Culture/Test <10.000 CFU/ML 05/28/2025 7:53 AM [facility] Urine (Urine, Voided) Non-Blood Collection / Unknown 05/26/2025 12:20 PM EST 05/26/2025 1:22 PM EST Bushra Woods MD LAB MICROBIOLOGY CULTURE ORD ERABLES Final Result Performing Organization Address [facility] Co de Phone Number [address] [address] * (ABNORMAL) URINE SEDIMENT (05/26/2025 12:20 PM EST) WBC 10-20(A) 0 - 9 /hpf 05/26/2025 1:22 PM [facility] RBC 3-5(A) 0 - 2 /hpf 05/26/2025 1:22 PM [facility] Squamous Epithelial Cells 1-2(A) Not Present /hpf 05/26/2025 1:22 PM [facility] Mucus Present(A ) Not Present /hpf 05/26/2025 1:22 PM [facility] Bacteria 1+(A) Negative /hpf 05/26/2025 1:22 PM [facility] Granular Cast 1-2(A) Not Present /lpf 05/26/2025 1:22 PM [facility] Hyaline Cast 1-2 0 - 2 /lpf 05/26/2025 1:22 PM [facility] Urine (Urine, Voided) Non-Blood Collection / Unknown 05/26/2025 12:20 PM EST 05/26/2025 12:39 PM EST us Bushra Woods MD LAB URINE ORDERABLES Final R esult Performing Organization Address City/[facility]/ZIP Co de Phone Number [address] [address] * (ABNORMAL) Procalcitonin (05/26/2025 6:11 AM EST) Procalcitonin 5.20(H) 0.00 - 0.25 ng/mL 05/26/2025 7:40 AM EST [facility] Comment: <=0.25 ng/mL: Bacterial pneumonia is unlikely. <0.5 ng/mL: Low likelihood of systemic bacterial infection / sepsis. Localized infection is possible. 0.5-2.0 ng/mL: Systemic bacterial infection / sepsis is possible, but other conditions can induce PCT levels in this range as well (e.g., pancreatitis, severe trauma, circulatory shock, surgery, yanez, inhalation injury). >2.0 ng/mL: Systemic bacterial infection / sepsis is likely. Additional information can be found in the [employer] Procalcitonin Guidelines, available in the Document Link. Blood (Blood) Venipuncture / Unknown 05/26/2025 6:11 AM EST 05/26/2025 6:42 AM EST us Citlali Mcfarland MD LAB BLOOD BKR ORDERABLES Fi nal Result Performing Organization Address City/[facility]/ZIP Co de Phone Number [address] [address] * (ABNORMAL) C-Reactive Protein (CRP) (05/26/2025 6:11 AM EST) C Reactive Protein 91.2(H) <10.0 mg/L 05/26/2025 7:24 AM EST [facility] Comment:NOTE: This reference range is for the evaluation of inflammation. Order CRP, High Sensitivity for cardiac risk status evaluation. Blood (Blood) Venipuncture / Unknown 05/26/2025 6:11 AM EST 05/26/2025 6:41 AM EST us Citlali Mcfarland MD LAB BLOOD BKR ORDERABLES Fi nal Result Performing Organization Address [facility]/ZIP Co de Phone Number [address] [address] * SARS-CoV-2, PCR (05/25/2025 10:28 PM EST) SARS-CoV-2 RNA PCR Not Detected Not Detected 05/25/2025 11:39 PM EST [facility] Swab (Nasopharynx, Bilateral) Non-Blood Collection / Unknown 05/25/2025 10:28 PM EST 05/25/2025 10:51 PM EST us Rohit Kauffman DO LAB GENERAL ORDERABLES Final R esult Performing Organization Address [facility] Co de Phone Number [address] [address] * Symptomatic Respiratory Virus Testing Panel (ED/IP) (05/25/2025 10:28 PM EST) Only the most recent of2 resultswithin the time period is included. Swab (Nasopharynx, Bilateral) Non-Blood Collection / Unknown 05/25/2025 10:28 PM EST 05/25/2025 10:51 PM EST Rohit Jamari DO LAB GENERAL ORDERABLES Final R esult Performing Organization Address [facility] Co de Phone Number [address] [address] * MRI BRAIN WITH AND WITHOUT CONTRAST (05/25/2025 9:37 PM EST) Anatomical Region Laterality Modality Head Magnetic Resonan ce 05/26/2025 3:19 AM EST Impressions 05/26/2025 3:22 AM EST 1. No acute infarct, mass lesion, hemorrhage or abnormal enhancement. Narrative 05/26/2025 3:22 AM EST MRI BRAIN WITH AND WITHOUT CONTRAST Referring clinician's provided indication for this examination in [facility]: * Mental status change, unknown cause TECHNIQUE: MRI BRAIN WITH AND WITHOUT CONTRAST Multi-sequence, multi-planar MRI of the brain was performed before and after intravenous contrast. COMPARISON: CT ANGIO HEAD WITH AND WITHOUT CONTRAST, CT ANGIO NECK WITH CO.. FINDINGS: Brain Parenchyma: No evidence of acute infarct, mass, hemorrhage or abnormal enhancement. There are scattered foci of T2 hyperintensity in the white matter, likely a manifestation of chronic small vessel disease. Ventricular System and Extra-Axial Spaces: The ventricles and cortical sulci are prominent, compatible with parenchymal volume loss. No evidence of midline shift or hydrocephalus. Extracranial Structures: Expected arterial flow signal is observed at the skull base. Procedure Note Juni Fowler MD - 05/26/2025 MRI BRAIN WITH AND WITHOUT CONTRAST Referring clinician's provided indication for this examination in [facility]: *Mental status change, unknown cause TECHNIQUE: MRI BRAIN WITH AND WITHOUT CONTRAST Multi-sequence, multi-planar MRI of the brain was performed before andafter intravenous contrast. COMPARISON: CT ANGIO HEAD WITH AND WITHOUT CONTRAST, CT ANGIO NECK WITHCO.. FINDINGS: Brain Parenchyma: No evidence of acute infarct, mass, hemorrhage orabnormal enhancement. There are scattered foci of T2 hyperintensity in thewhite matter, likely a manifestation of chronic small vessel disease. Ventricular System and Extra-Axial Spaces: The ventricles and corticalsulci are prominent, compatible with parenchymal volume loss. No evidenceof midline shift or hydrocephalus. Extracranial Structures: Expected arterial flow signal is observed at theskull base. IMPRESSION: 1. No acute infarct, mass lesion, hemorrhage or abnormal enhancement. us Swati Mejia MD IM MR HEAD/NECK Final Result * Lactate, Whole Blood (05/25/2025 3:53 AM EST) Only the most recent of3 resultswithin the time period is included. Lactate, Whole Blood 1.3 0.5 - 2.0 mmol/L 05/25/2025 4:00 AM EST [facility] Blood (Blood, Venous) Venipuncture / Unknown 05/25/2025 3:53 AM EST 05/25/2025 3:57 AM EST Result Dolly Mcfarland MD LAB BLOOD BKR ORDERABLES Fi nal Result Performing Organization Address [facility] Co de Phone Number [address] [address] * (ABNORMAL) PT-INR (05/25/2025 3:52 AM EST) Only the most recent of2 resultswithin the time period is included. PT 14.0(H) 10.0 - 13.0 sec 05/25/2025 4:16 AM EST [facility] INR 1.1 0.9 - 1.1 05/25/2025 4:16 AM EST [facility] Comment:Therapeutic Range 2. 0 - 3.5 Blood (Blood) Venipuncture / Unknown 05/25/2025 3:52 AM EST 05/25/2025 3:57 AM EST Result [facility] us Citlali Mcfarland MD LAB BLOOD BKR ORDERABLES Fi nal Result Performing Organization Address [facility] de Phone Number [address] [address] * (ABNORMAL) Phosphorus (05/25/2025 3:52 AM EST) Phosphorus 2.3(L) 2.5 - 4.5 mg/dL 05/25/2025 4:23 AM EST [facility] Blood (Blood) Venipuncture / Unknown 05/25/2025 3:52 AM EST 05/25/2025 3:57 AM EST Result Dolly Mcfarland MD LAB BLOOD BKR ORDERABLES Fi nal Result Performing Organization Address [facility] Co de Phone Number [address] [address] * CT ABDOMEN/PELVIS WITH CONTRAST (05/25/2025 2:17 AM EST) Anatomical Region Laterality Modality Abdomen, Pelvis Computed Tomogra phy 05/25/2025 7:51 AM EST Impressions 05/25/2025 8:00 AM EST 1. No acute infectious or inflammatory process in the abdomen or pelvis. 2. Mild prominence of the main pancreatic duct in the region of the body with apparent abrupt caliber change at the body/neck junction. Few scattered pancreatic hypodensities measuring up to 10 mm, likely side branch intraductal papillary mucinous neoplasms (IPMNs). RECOMMENDATION: Abdominal MRI/MRCP to further assess pancreatic findings. Narrative 05/25/2025 8:[address] ABDOMEN/PELVIS WITH CONTRAST Referring clinician's provided indication for this examination in Epic: * Abdominal abscess/infection suspected TECHNIQUE: Multidetector-row CT of the abdomen and pelvis was performed after administration of intravenous contrast using tailored dose modulation techniques. Images were reconstructed in the axial, coronal, and sagittal planes. COMPARISON: None FINDINGS: Lower chest: Mild bibasilar subsegmental atelectasis. Trace left pleural effusion. Coronary artery calcifications. Liver: No suspicious focal lesions. Biliary: No biliary ductal dilatation. Noninflamed gallbladder. Spleen: No splenomegaly or focal lesions. Pancreas: Mild prominence of the main duct in the region of the body measuring up to 3 mm, with apparent abrupt caliber change at the body/neck junction (6:235). Few scattered hypodensities measuring up to 10 mm. Adrenal glands: No nodules. Left adrenal gland thickening. Kidneys/ureters: No solid masses or hydronephrosis. Cortical hypodensities, some cysts and some too small to characterize. No stones. Bowel: Small hiatal hernia. No dilation or wall thickening. Noninflamed appendix. Peritoneum/retroperitoneum: No masses, free air, or fluid. Lymph nodes: No lymphadenopathy. Pelvic organs/bladder: No masses. Pat catheter and trace air within the bladder. Vessels: No abdominal aortic aneurysm. Atherosclerotic calcifications. Bones/soft tissues: Osseous degenerative changes. No destructive osseous lesions. Small fat-containing right inguinal hernia. Partially visualized large left hydrocele. Small fat-containing umbilical hernia. Procedure Note Tylor Navarro DO, MPH - 05/25/2025 CT ABDOMEN/PELVIS WITH CONTRAST Referring clinician's provided indication for this examination in Epic: *Abdominal abscess/infection suspected TECHNIQUE: Multidetector-row CT of the abdomen and pelvis was performedafter administration of intravenous contrast using tailored dosemodulation techniques. Images were reconstructed in the axial, coronal,and sagittal planes. COMPARISON: None FINDINGS: Lower chest: Mild bibasilar subsegmental atelectasis. Trace left pleuraleffusion. Coronary artery calcifications. Liver: No suspicious focal lesions. Biliary: No biliary ductal dilatation. Noninflamed gallbladder. Spleen: No splenomegaly or focal lesions. Pancreas: Mild prominence of the main duct in the region of the bodymeasuring up to 3 mm, with apparent abrupt caliber change at the body/neckjunction (6:235). Few scattered hypodensities measuring up to 10 mm. Adrenal glands: No nodules. Left adrenal gland thickening. Kidneys/ureters: No solid masses or hydronephrosis. Corticalhypodensities, some cysts and some too small to characterize. No stones. Bowel: Small hiatal hernia. No dilation or wall thickening. Noninflamedappendix. Peritoneum/retroperitoneum: No masses, free air, or fluid. Lymph nodes: No lymphadenopathy. Pelvic organs/bladder: No masses. Pat catheter and trace air within thebladder. Vessels: No abdominal aortic aneurysm. Atherosclerotic calcifications. Bones/soft tissues: Osseous degenerative changes. No destructive osseouslesions. Small fat-containing right inguinal hernia. Partially visualizedlarge left hydrocele. Small fat-containing umbilical hernia. IMPRESSION: 1. No acute infectious or inflammatory process in the abdomen orpelvis. 2. Mild prominence of the main pancreatic duct in the region of the bodywith apparent abrupt caliber change at the body/neck junction. Fewscattered pancreatic hypodensities measuring up to 10 mm, likely sidebranch intraductal papillary mucinous neoplasms (IPMNs). RECOMMENDATION: Abdominal MRI/MRCP to further assess pancreatic findings. us Citlali Mcfarland MD IMG CT ABD/PELVIS Final Res ult * (ABNORMAL) Osmolality, Blood (05/25/2025 12:57 AM EST) Osmolality 269(L) 280 - 296 mOsm/kg water 05/25/2025 1:35 AM [facility] Blood (Blood) Venipuncture / Unknown 05/25/2025 12:57 AM EST 05/25/2025 1:02 AM EST us Shyam Shah DO LAB BLOOD BKR ORDERABLES Kaylin l Result Performing Organization Address City/[facility]/ZIP Co de Phone Number [address] [address] * (ABNORMAL) Troponin (05/25/2025 12:48 AM EST) Only the most recent of2 resultswithin the time period is included. Pathologist [facility] Troponin-T HS Gen5 31(H) 0 - 14 ng/L 05/25/2025 1:17 AM [facility] Blood (Blood) Venipuncture / Unknown 05/25/2025 12:48 AM EST 05/25/2025 12:53 AM EST us Citlali Mcfarland MD LAB BLOOD BKR ORDERABLES Fi nal Result Performing Organization Address City/[facility]/ZIP Co de Phone Number [address] [address] * Lab Add-On (05/25/2025 12:33 AM EST) Pathologist [facility] Specimen Date/Time 05/24/25 05/28/2025 7:59 PM [facility] Test Requested Urine Sodium, urine Creatinine, Urine Osmolality, Serum Osmolality 05/28/2025 7:59 PM [facility] Specimen Description 05/28/2025 7:59 PM [facility] Comments 05/28/2025 7:59 PM [facility] Was this request processed? Yes 05/28/2025 7:59 PM [facility] Other (Other) 05/25/2025 12: 33 AM EST 05/25/2025 12:33 AM EST us Shyam Shah DO LAB GENERAL ORDERABLES Final Result [address] [address] * XR Chest Portable (05/24/2025 11:11 PM EST) Anatomical Region Laterality Modality Chest Computed Radiogr aphy 05/25/2025 1:38 AM EST Impressions 05/25/2025 1:38 AM EST No acute abnormality. Narrative 05/25/2025 1:38 AM EST XR CHEST PORTABLE Referring clinician's provided indication for this examination in [facility]: Fever COMPARISON: None available. FINDINGS: Devices/Tubes/Lines: None. Lungs: No focal consolidation or pulmonary edema. Pleura: No pleural effusion or pneumothorax. Heart/Mediastinum: The heart and mediastinum are normal. Bones/Soft Tissues: Degenerative changes of the thoracic spine and bilateral shoulders. Procedure Note Amado Vaughn MBBS - 05/25/2025 XR CHEST PORTABLE Referring clinician's provided indication for this examination in [facility]:Fever COMPARISON: None available. FINDINGS: Devices/Tubes/Lines: None. Lungs: No focal consolidation or pulmonary edema. Pleura: No pleural effusion or pneumothorax. Heart/Mediastinum: The heart and mediastinum are normal. Bones/Soft Tissues: Degenerative changes of the thoracic spine andbilateral shoulders. IMPRESSION: No acute abnormality. us MD AIXA TateG XR CHEST Final Resul t * SARS-CoV-2, INFLUENZA A/B, PCR (05/24/2025 11:09 PM EST) SARS-CoV-2 RNA PCR Not Detected Not Detected 05/24/2025 11:59 PM EST [facility] Influenza A PCR Not Detected Not Detected 05/24/2025 11:59 PM EST [facility] Influenza B PCR Not Detected Not Detected 05/24/2025 11:59 PM EST [facility] Swab (Nasopharynx, Bilateral) Non-Blood Collection / Unknown 05/24/2025 11:09 PM EST 05/24/2025 11:34 PM EST us Erica Wiggins MD LAB GENERAL ORDERABLES Kaylin l Result Performing Organization Address City/State/[facility] Co de Phone Number [address] [address] * CT ANGIO HEAD WITH AND WITHOUT CONTRAST, CT ANGIO NECK WITH CONTRAST (05/24/2025 11:01 PM EST) Anatomical Region Laterality Modality Neck Computed Tomogra phy 05/25/2025 12:1 3 AM EST Impressions 05/25/2025 12:34 AM EST 1. No acute intracranial abnormality. 2. No acute vascular abnormality. Narrative 05/25/2025 12:34 AM EST Reason for exam (per EHR order): * Mental status change, unknown cause; ams unresponsive, disconjugate gaze, CT ANGIO HEAD WITH AND WITHOUT CONTRAST, CT ANGIO NECK WITH CONTRAST TECHNIQUE: Multidetector, volumetric CT acquisition was performed of the head from skull base to vertex and axial, coronal, and sagittal reformatted images were produced. During intravenous administration of contrast, multidetector axial CT angiography source images were obtained from the aortic arch to the vertex. Oblique axial, coronal, and sagittal MIP reformatted images were produced to delineate the full extent of the intracranial and cervical vessels and used in the interpretation. Intravenous contrast: Administered. COMPARISON: None. FINDINGS: BRAIN: Brain Parenchyma: No midline shift, mass effect, parenchymal hemorrhage, or evidence of acute territorial infarct. Nonspecific periventricular white matter hypodensities. Parenchymal volume loss. Ventricular System and Extra-Axial Spaces: No extra-axial fluid collection. Basilar cisterns are patent. Calvarium, Skull Base, and Sella: No calvarial fracture. Paranasal Sinuses and Mastoid Air Cells: Normal. Orbits: Normal. Head CTA: Anterior Circulation: No high-grade stenosis, occlusion or aneurysm. Intracranial internal carotid artery atherosclerotic calcifications. Posterior Circulation: No high-grade stenosis, occlusion or aneurysm. Venous Structures: Normal. Neck CTA: Arch: Atherosclerotic calcifications. Right Carotid Artery: No dissection. Atherosclerotic calcifications at the common carotid bifurcation. Left Carotid Artery: No dissection. Atherosclerotic calcifications at the common carotid bifurcation. Vertebral Arteries: No dissection. Miscellaneous Findings: None. Visualized Spine: Cervical spine degenerative changes. Procedure Note Dick Johnson MD - 05/25/2025 Reason for exam (per EHR order): * Mental status change, unknown cause;ams unresponsive, disconjugate gaze, CT ANGIO HEAD WITH AND WITHOUT CONTRAST, CT ANGIO NECK WITH CONTRAST TECHNIQUE: Multidetector, volumetric CT acquisition was performed of thehead from skull base to vertex and axial, coronal, and sagittalreformatted images were produced. During intravenous administration ofcontrast, multidetector axial CT angiography source images were obtainedfrom the aortic arch to the vertex. Oblique axial, coronal, and sagittalMIP reformatted images were produced to delineate the full extent of theintracranial and cervical vessels and used in the interpretation. Intravenous contrast: Administered. COMPARISON: None. FINDINGS: BRAIN: Brain Parenchyma: No midline shift, mass effect, parenchymal hemorrhage,or evidence of acute territorial infarct. Nonspecific periventricularwhite matter hypodensities. Parenchymal volume loss. Ventricular System and Extra-Axial Spaces: No extra-axial fluidcollection. Basilar cisterns are patent. Calvarium, Skull Base, and Sella: No calvarial fracture. Paranasal Sinuses and Mastoid Air Cells: Normal. Orbits: Normal. Head CTA: Anterior Circulation: No high-grade stenosis, occlusion or aneurysm.Intracranial internal carotid artery atherosclerotic calcifications. Posterior Circulation: No high-grade stenosis, occlusion or aneurysm. Venous Structures: Normal. Neck CTA: Arch: Atherosclerotic calcifications. Right Carotid Artery: No dissection. Atherosclerotic calcifications at thecommon carotid bifurcation. Left Carotid Artery: No dissection. Atherosclerotic calcifications at thecommon carotid bifurcation. Vertebral Arteries: No dissection. Miscellaneous Findings: None. Visualized Spine: Cervical spine degenerative changes. IMPRESSION: 1. No acute intracranial abnormality. 2. No acute vascular abnormality. Erica Wiggins MD IMG CT HEAD/NECK Final Resu lt * Blood Culture, Routine (05/24/2025 10:37 PM EST) Only the most recent of2 resultswithin the time period is included. [facility] Blood Culture/Test No growth at 5 days 05/29/2025 11:25 PM EST [facility] Blood (Blood) Venipuncture / Unknown 05/24/2025 10:37 PM EST 05/24/2025 10:40 PM EST Erica Wiggins MD LAB MICROBIOLOGY CULTURE OR DERABLES Final Result Performing Organization Address City/[facility]/ZIP Co de Phone Number [address] [address] * Ethanol, Blood (05/24/2025 10:34 PM EST) [facility] Ethanol <10 Negative; <11 mg/dL 05/24/2025 11:33 PM EST [facility] Blood (Blood) Venipuncture / Unknown 05/24/2025 10:34 PM EST 05/24/2025 10:41 PM EST Erica Wiggins MD LAB BLOOD BKR ORDERABLES Fi nal Result Performing Organization Address City/[facility]/ZIP Co de Phone Number [address] [address] * C-Reactive Protein (CRP), High Sensitivity (05/24/2025 10:34 PM EST) [facility] CRP, High Sensitivity 157.1 See comment mg/L 05/24/2025 11:44 PM EST [facility] Comment: Cardiovascular Risk: Low: <1.0 mg/L Average: 1.0-3.0 mg/L High: >3.0 mg/L Acute Inflammation: >10.0 mg/L Persistent elevations may represent non cardiovascular inflammation. Blood (Blood) Venipuncture / Unknown 05/24/2025 10:34 PM EST 05/24/2025 10:41 PM EST us Erica Wiggins MD LAB BLOOD BKR ORDERABLES Fi nal Result Performing Organization Address [facility]/ZIP Co de Phone Number [address] [address] * Type and Screen (ABO, Rh, Antibody Screen) (05/24/2025 10:34 PM EST) ABO/RH O Positive 05/24/2025 11:29 PM EST [facility] Antibody Screen Negative 05/24/2025 11:29 PM EST [facility] Sample Expires 05/27/2025,2 359 05/24/2025 11:29 PM EST [facility] Blood (Blood) Venipuncture / Unknown 05/24/2025 10:34 PM EST 05/24/2025 10:41 PM EST us Erica Wiggins MD LAB BLOOD BANK TEST ORDERAB LES Final Result Performing Organization Address [facility] Co de Phone Number [facility] [place], [address] [place] [address] [address] * Thyroid Stimulating Hormone (TSH), with Reflex (05/24/2025 10:34 PM EST) TSH 2.64 0.40 - 5.90 uIU/mL 05/24/2025 11:33 PM EST [facility] Blood (Blood) Venipuncture / Unknown 05/24/2025 10:34 PM EST 05/24/2025 10:41 PM EST us Erica Wiggins MD LAB BLOOD BKR ORDERABLES Fi nal Result Performing Organization Address City/[facility]/ZIP Co de Phone Number [address] [address] * Hepatic Panel (LFTs) (05/24/2025 10:34 PM EST) AST 34 <40 U/L 05/24/2025 11:33 PM [facility] ALT 13 <50 U/L 05/24/2025 11:33 PM [facility] Alkaline Phosphatase 95 40 - 130 U/L 05/24/2025 11:33 PM [facility] Bilirubin, Total 0.4 0.0 - 1.2 mg/dL 05/24/2025 11:33 PM [facility] Bilirubin, Direct 0.2 0.0 - 0.3 mg/dL 05/24/2025 11:33 PM [facility] Total Protein 6.8 6.4 - 8.3 g/dL 05/24/2025 11:33 PM [facility] Albumin 3.6 3.5 - 5.2 g/dL 05/24/2025 11:33 PM [facility] Globulin 3.2 1.9 - 4.1 g/dL 05/24/2025 11:33 PM [facility] Blood (Blood) Venipuncture / Unknown 05/24/2025 10:34 PM EST 05/24/2025 10:41 PM EST us Erica Wiggins MD LAB BLOOD BKR ORDERABLES Fi nal Result Performing Organization Address City/[facility]/ZIP Co de Phone Number [address] [address] * (ABNORMAL) Erythrocyte Sedimentation Rate (ESR) (05/24/2025 10:34 PM EST) Pathologist [facility] ESR 25(H) 0 - 20 mm/h 05/24/2025 10:51 PM [facility] Blood (Blood) Venipuncture / Unknown 05/24/2025 10:34 PM EST 05/24/2025 10:41 PM EST us Erica Wiggins MD LAB BLOOD BKR ORDERABLES Fi nal Result Performing Organization Address City/[facility]/ZIP Co de Phone Number [address] [address] * (ABNORMAL) Hemoglobin A1c (05/24/2025 10:34 PM EST) Hemoglobin A1c 6.4(H) 4.3 - 5.6 % 05/24/2025 11:06 PM [facility] Calculated Mean Blood Glucose 137 mg/dL 05/24/2025 11:06 PM [facility] Comment:There is no [facility] normal range for the Estimated Average Glucose (EAG). However, a HbA1c of 5.6% (upper limit of normal) represents an EAG of 114 mg/dL. The diagnostic HbA1c level for diabetes is greater than or equal to 6.5%, which represents an EAG greater than or equal to 140 mg/dL. Blood (Blood) Venipuncture / Unknown 05/24/2025 10:34 PM EST 05/24/2025 10:41 PM EST Erica Wiggins MD LAB BLOOD BKR ORDERABLES Fi nal Result [address] [address] * Lipid Panel (05/24/2025 10:34 PM EST) Cholesterol 104 <200 mg/dL 05/24/2025 11:33 PM [facility] HDL 56 >=40 mg/dL 05/24/2025 11:33 PM [facility] Calculated LDL 35 <130 mg/dL 05/24/2025 11:33 PM [facility] Comment:LDL is calculated us ing the Pierre-NIH equation (KARMEN Cardiol. 2019November 16;5(5):540-548). Non-HDL Cholesterol 48 mg/dL 05/24/2025 11:33 PM [facility] Comment:Guidelines suggest a non-HDL cholesterol goal 30 mg/dL higher than the patient-specific LDL cholesterol goal. Cardiac Risk Ratio 1.9 0.0 - 5.0 2024 11:33 PM [facility] Triglycerides 57 <=150 mg/dL 05/24/2025 11:33 PM [facility] Blood (Blood) Venipuncture / Unknown 05/24/2025 10:34 PM EST 05/24/2025 10:41 PM EST Erica Wiggins MD LAB BLOOD BKR ORDERABLES Fi nal Result Performing Organization Address [facility] Co de Phone Number [address] [address] * (ABNORMAL) Venous Blood Gas (VBG) (05/24/2025 10:33 PM EST) pH, Venous 7.30(L) 7.31 - 7.41 05/24/2025 10:45 PM EST [facility] pCO2, Venous 49(H) 35 - 45 mm[Hg] 05/24/2025 10:45 PM [facility] pO2, Venous 36 35 - 40 mm[Hg] 05/24/2025 10:45 PM [facility] Base Excess -3.0 -3.0 - 3.0 mmol/L 05/24/2025 10:45 PM [facility] Bicarbonate (HCO3) 24 23 - 28 mmol/L 05/24/2025 10:45 PM [facility] Oxygen Saturation, Venous 61.4 60.0 - 80.0 % 05/24/2025 10:45 PM [facility] Blood (Blood, Venous) Venipuncture / Unknown 05/24/2025 10:33 PM EST 05/24/2025 10:41 PM EST Erica Wiggins MD LAB BLOOD BKR ORDERABLES Fi nal Result Performing Organization Address City/[facility]/ZIP Co de Phone Number [address] [address] * Toxicology Screen, Urine (05/24/2025 9:57 PM EST) Amphetamines, Urine Negative Negative 05/24/2025 10:16 PM EST [facility] Benzodiazepine , Urine Negative Negative 05/24/2025 10:16 PM EST [facility] Cocaine Metabolite, Urine Negative Negative 05/24/2025 10:16 PM EST [facility] Opiates, Urine Negative Negative 05/24/2025 10:16 PM EST [facility] Oxycodone, Urine Negative Negative 05/24/2025 10:16 PM EST [facility] Fentanyl, Urine Negative Negative 05/24/2025 10:16 PM EST [facility] Creatinine, Urine 69 20 - 300 mg/dL 05/24/2025 10:16 PM EST [facility] Urine (Urine, Voided) Non-Blood Collection / Unknown 05/24/2025 9:57 PM EST 05/24/2025 10:01 PM EST [facility] - 05/24/2025 10:16 PM EST This screening test was performed by immunoassay methodology, which may occasionally yield false-negative or false-positive results. Confirmatory testing can be requested if a definitive result is needed. Results are to be used only for medical (ie, treatment) purposes. Unconfirmed screening results must not be used for non-medical purposes (eg, employment testing). us Erica Wiggins MD LAB URINE ORDERABLES Final Result Performing Organization Address [facility] Co de Phone Number [address] [address] * Sodium, Random Urine (05/24/2025 9:57 PM EST) Sodium, Urine 56 mmol/L 05/25/2025 1:24 AM EST [facility] Urine (Urine, Voided) Non-Blood Collection / Unknown 05/24/2025 9:57 PM EST 05/24/2025 10:01 PM EST [facility] - 05/25/2025 1:24 AM EST The reference interval(s) are unavailable for this specimen type. Comparison of this result with other laboratory results, such as the concentration in the blood, serum, or plasma, is recommended. The test result should be integrated into the clinical context for interpretation. us Shyam Shah DO LAB URINE ORDERABLES Final Re sult Performing Organization Address City/[facility]/ZIP Co de Phone Number [address] [address] * Osmolality, Random Urine (05/24/2025 9:57 PM EST) Osmolality, Urine 557 150 - 1,150 mOsm/kg water 05/25/2025 1:21 AM EST [facility] Urine (Urine, Voided) Non-Blood Collection / Unknown 05/24/2025 9:57 PM EST 05/24/2025 10:01 PM EST us Shyam G Shah DO LAB URINE ORDERABLES Final Re sult Performing Organization Address [facility]/ZIP Co de Phone Number [address] [address] * Creatinine, Random Urine (05/24/2025 9:57 PM EST) Pathologist [facility] Creatinine, Urine 72 mg/dL 05/25/2025 1:21 AM EST [facility] Urine (Urine, Voided) Non-Blood Collection / Unknown 05/24/2025 9:57 PM EST 05/24/2025 10:01 PM EST Narrative [facility] - 05/25/2025 1:21 AM EST The reference interval(s) are unavailable for this specimen type. Comparison of this result with other laboratory results, such as the concentration in the blood, serum, or plasma, is recommended. The test result should be integrated into the clinical context for interpretation. us Shyam Shah DO LAB URINE ORDERABLES Final Re sult Performing Organization Address [facility]/ZIP Co de Phone Number [address] [address] * ECG 12-LEAD (05/24/2025 9:46 PM EST) Ventricular Rate EKG/MIN 67 BPM [facility] Atrial Rate 67 BPM [facility] MN Interval 166 ms [facility] QRS Duration 150 ms [facility] QT Interval 408 ms [facility] QTC Interval 431 ms [facility] P [place] 39 degrees [facility] R [address] [place] [address] [place] -5 degrees [facility] T [address] [place] 16 degrees [facility] 05/24/2025 9:46 PM EST 05/25/2025 10:09 AM EST Narrative [facility] - 05/25/2025 10:09 AM EST Normal sinus rhythm Right bundle branch block Abnormal ECG No previous ECGs available Confirmed by Vicente Mohan ([id number]) on 05/25/2025 10:09:40 AM Erica Wiggins MD ECG ORDERABLES Final Resul t [facility] * 2nd Type (New Sample) (05/23/2025 8:22 PM EST) ABO/RH O Positive 05/24/2025 10:48 PM [facility] Blood (Blood) Venipuncture / Unknown 05/23/2025 8:22 PM EST 05/24/2025 10:22 PM EST Erica Wiggins MD LAB BLOOD BANK TEST ORDERAB LES Final Result Performing Organization Address City/[facility]/ZIP Co de Phone Number [facility] [place], [address] [place] [address] [phone] [address] [address] * Urinalysis (05/23/2025 11:20 AM EST) Color Yellow Yellow 05/23/2025 5:29 PM [facility] Clarity Clear Clear 05/23/2025 5:29 PM [facility] Glucose Negative Negative 05/23/2025 5:29 PM [facility] Bilirubin Urine Negative Negative 5:29 PM [facility] Ketone Urine Negative Negative 05/23/2025 5:29 PM [facility] Specific [place] 1.025 1.001 - 1.035 05/23/2025 5:29 PM [facility] Blood Negative Negative 05/23/2025 5:29 PM [facility] pH 6.0 5.0 - 8.0 05/23/2025 5:29 PM EST [facility] Protein Negative Negative 05/23/2025 5:29 PM EST [facility] Nitrites Negative Negative 05/23/2025 5:29 PM EST [facility] Leukocyte Esterase Negative Negative 05/23/2025 5:29 PM EST [facility] Urobilinogen Negative Negative 05/23/2025 5:29 PM EST [facility] Urine (Urine, Voided) 05/23/2025 11:20 AM EST 05/23/2025 4:59 PM EST us Dee Dee Geronimo MD LAB URINE ORDERABLES Final Res ult [address] [address] from Last 3 Months Insurance [facility] MEDICARE REPLACEMENT [employer] [id number] [facility] [employer]IC[facility] REPLACEMENT [place] [place] [id number] [facility] MEDIC[facility] REPLACEMENT [facility] MED[facility] RE[facility]EMENT [facility] MED[facility] REPLACEMENT MICHAEL [employer] MEDICARE REPLACEMENT Advance Directives For more information, please contact: [phone] (9AM - 5PM [facility], Wednesday-Wednesday) Documents on File Type Date 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 4:24 PM Healthcare Proxy 2025 * DNR/DNI (No CPR/No Intubation) (Latest Code Status on File) Date Activated Date Inactivated Comments 05/25/2025 3:00 AM Question Answer Comments Code Status Confirmed With: Family Code Status Communicated To: Inpatient Attending Code Discussion Comments: polst filled * DNR/DNI (No CPR/No Intubation) Date Activated Date Inactivated Comments 05/25/2025 12:02 AM 05/25/2025 3:00 AM Question Answer Comments Code Status Confirmed With: Patient Code Status Communicated To: Other (specify roro w) Code Discussion Comments: Discussed with family at length power of final assembler boat is in the room family has decided and patient had told them before the patient would not want to be left on the machine or intubated they are making the patient DNR DNI at this time. Care Teams Conditioning Room Worker Relationship Specialty Start Date End Date Abbi Saha FNP [address] [place] [address] PCP - General Nurse Practitioner 05/24/25 Additional Source Comments The information contained in this document represents components of the legal health record. It is not the complete legal health record.[facility]
--- OUTSIDE RECORDS SUMMARY | 2025-06-15 12:52 | XMS_ITS | Encounter Summary ---
Author Organization [employer] Address [address] [facility] [address] [place] [address] Care Team Providers Care Special Machine Operator Name Role Phone Sandy Torrez MD Primary Care Provider Unava ilable [facility] FOREPART REDUCER Primary Care Provider [phone] Gogo Palacio FOREPART REDUCER Primary Care Provider [phone] [facility] Primary Care Provider [phone] Encounter Details Date Type Department Care Team (Latest Contact Info) Description 07/17/2019 Abstract [facility] CONVERSIONS Dental, Provider, DDS Social History Tobacco [...] Description 06/22/2025 10:00 AM EST Office Visit [facility] MEDICINE [address] [place], [place] [phone] Rosanna Cohen DO [address] [place], [place] [phone] 09/10/2025 2:15 PM EST Office Visit [facility] ADULT DENTAL [address] [place], [place] [phone] Nusrat Lynch [address] [place] [address] documented as of this encounter Visit Diagnoses Not on filedocumented in this encounter Care Teams Special Machine Operator Relationship Specialty Start Date End Date Sandy Torrez MD PCP - General Family Medicine 01/09/20 06/22/22 Maria AAbbi robb FNP [address] [place] [address] PCP - General Family Medicine 06/23/22 03/28/23 Gogo Palacio FNP [address] [place] [address] PCP - General Family Medicine 03/29/23 03/31/23 [facility] [address] [place] [address] PCP - General Family Medicine 04/01/23 [facility] 05/08/24 documented as of this encounter
--- OUTSIDE RECORDS SUMMARY | 2025-06-15 12:52 | XMS_ITS | Encounter Summary ---
Author Organization [employer] Address [address] [facility] [address] [place] [address] Care Team Providers Care Procurement Forester Name Role Phone [facility] Primary Care Provider [phone] Encounter Details Date Type Department Care Team ([facility] st Contact Info) Description 08/11/2023 Orders Only [facility] MEDICINE [address] [place], [place] [phone] [facility] [address] [place], [place] [phone] Sensorineural hearing loss (SNHL) of both ears; Lower urinary tract symptoms (LUTS); Gait instability; Type 2 diabetes mellitus with hyperglycemia, without long-term current use of insulin ([facility]); Hammertoes of both feet; Diminished [...] Description 06/22/2025 10:00 AM EST Office Visit [facility] MEDICINE [address] [place] [address] Rosanna Cohen DO [address] [place], [place] [phone] 09/10/2025 2:15 PM EST Office Visit [facility] ADULT DENTAL [address] [place], [place] [phone] Nusrat Lynch [address] [place] [address] documented as of this encounter Procedures Procedure Name Priority Date/Time Associated Diagnosis Comments AMB REFERRAL TO ENT Routine 10/14/2023 Sensorineural hearing loss (SNHL) of both ears documented in this encounter Results * Referral to ENT (10/14/2023) [facility] FINANCING ANALYST OUTPATIENT REFERRAL ORDERABLE S Final Result documented [...] documented as of this encounter Care Teams Procurement Forester Relationship Specialty Start Date End Date Abbi Saha FNP [address] [place] [id number] PCP - General Family Medicine 04/01/23 Noemi Felicia 05/08/24 documented as of this encounter
--- OUTSIDE RECORDS SUMMARY | 2025-06-15 12:52 | XMS_ITS | Encounter Summary ---
Author Organization [employer] Address [address] [facility] [address]t [place] [address] Care Team Providers Care Career Guidance Technician Name Role Phone [place] Abbi [facility] Primary Care Provider [phone] Reason for Visit * Reason Onset Date Comments Hospital Follow-up 06/11/2025 Encounter Details Date Type Department Care Team ([facility] Contact Info) Description 06/11/2025 Telephone [facility] MEDICINE [address] [place], [place] [phone] [place] [facility] [address] [place] [address] Hospital Follow-up Social History Tobacco Use Types Packs/Day Years [...] encounter Miscellaneous Notes * Telephone Encounter - Nissa Arreola - 06/11/2025 10:15 AM EST Tc from pt requesting a HDF appt. Hospital: [facility] Date of admission: 05/28 Discharge date: 06/13 Diagnosed: hyponitremia *Send message to [place] Clinical Care Coordinators Contact pt daughter Maya to schedule at [phone] documented in this encounter Plan of Treatment Upcoming Encounters Date Type Department Care Team (Late st Contact Info) Description 06/22/2025 10:00 AM EST Office Visit [facility] MEDICINE [address] [place] [address] Rosanna Cohen DO [address] [place] [address] 09/10/2025 2:15 PM EST Office Visit [facility] ADULT DENTAL [address] [place] [address] Nusrat Lynch [address] [place] [address] documented as of this encounter Goals Goal Patient Goal Type Associated Problems Recent Progress Patient-Stated? Author Help patients manage their type 2 diabetes Care Plan Help patients manage their type 2 diabetes No Nissa Dewitt Weekly blood pressure task Care Plan Weekly blood pressure task No SantiagoaguiNissa santos Help patients manage their type 2 diabetes Care Plan Help patients manage their type 2 diabetes No Nissa Dewitt Patient has chronic kidney disease Care Plan Patient has chronic kidney disease No JaneuiNissa santos Weekly blood pressure task Care Plan Weekly blood pressure task No JigneshaguiNissa santos Patient has chronic kidney disease Care Plan Patient has chronic kidney disease No Nissa Dewitt Weekly blood pressure task Care Plan Weekly blood pressure task No JaneuiNissa santos Weekly blood pressure task Care Plan Weekly blood pressure task No SantiamichaeluiNissa santos Patient has chronic kidney disease Care Plan Patient has chronic kidney disease No JaneuiNissa santos Patient has chronic kidney disease Care Plan [...] has chronic kidney disease No Candy Ramirez documented as of this encounter Visit Diagnoses [...] 06/11/2025 Patient has chronic kidney disease 06/11/2025 Assessment Noted Time PHQ-9 Depression Total Score: 0 07/05/20 11:25 AM EST documented as of this encounter Care Teams Career Guidance Technician Relationship Specialty Start Date End Date [place] ROB Go [address] [place] [address] PCP - General Family Medicine 04/01/23 Noemi Felicia 05/08/24 documented as of this encounter
--- OUTSIDE RECORDS SUMMARY | 2025-06-15 12:52 | XMS_ITS | Encounter Summary ---
Author Organization [facility] Address [address] [place] [address] Phone Care Team Providers Care Educational Therapy Teacher Name Role Phone Abbi Saha DRIVABILITY TECHNICIAN Primary Care Provider [phone] Encounter Details Date Type Department Care Team (Late st Contact Info) Description 05/29/2025 Lab Requisition [facility] Main [address] [place] [address] Dee Dee Geronimo MD [address] [place] [phone] [email or web address] Illness, unspecified Social History Tobacco Use Types [...] Diagnosis Comments COMPREHENSIVE METABOLIC PANEL (CMP) Today 05/29/2025 8:05 AM EST Illness, unspecified CBC Today 05/29/2025 8:05 AM EST Illness, unspecified documented in this encounter Results * (ABNORMAL) CBC (05/29/2025 8:05 AM EST) WBC 5.32 4.00 - 11.00 K/uL 05/29/2025 10:54 AM [facility] RBC 3.59(L) 4.50 - 5.90 M/uL 05/29/2025 10:54 AM [facility] Hemoglobin 10.0(L) 13.5 - 17.5 g/dL 05/29/2025 10:54 AM [facility] Hematocrit 30.0(L) 41.0 - 53.0 % 05/29/2025 10:54 AM [facility] MCV 83.6 80.0 - 100.0 fL 05/29/2025 10:54 AM [facility] MCH 27.9 27.0 - 31.0 pg 05/29/2025 10:54 AM [facility] MCHC 33.3 32.0 - 36.0 g/dL 05/29/2025 10:54 AM [facility] PLT 290 150 - 450 K/uL 05/29/2025 10:54 AM [facility] MPV 8.9 8.4 - 12.0 fL 05/29/2025 10:54 AM [facility] RDW-CV 13.9 11.5 - 14.5 % 05/29/2025 10:54 AM [facility] Absolute NRBC 0.00 <=0.00 K cells/uL 05/29/2025 10:54 AM [facility] NRBC 0.0 <=0.0 /100 WBCs 05/29/2025 10:54 AM [facility] Blood (Blood) 05/29/2025 8:0 5 AM EST 05/29/2025 9:45 AM EST us Dee Dee Geronimo MD LAB BLOOD BKR ORDERABLES Final Result Performing Organization Address City/State/[facility] Co de Phone Number [address] [address] * (ABNORMAL) Comprehensive Metabolic Panel (CMP) (05/29/2025 8:05 AM EST) Sodium 131(L) 136 - 145 mmol/L 05/29/2025 12:40 PM [facility] Potassium 4.2 3.4 - 5.1 mmol/L 05/29/2025 12:40 PM [facility] Chloride 98 98 - 107 mmol/L 05/29/2025 12:40 PM [facility] CO2 22 20 - 31 mmol/L 05/29/2025 12:40 PM [facility] Anion Gap 11 3 - 17 mmol/L 05/29/2025 12:40 PM [facility] BUN 11 6 - 23 mg/dL 05/29/2025 12:40 PM [facility] Creatinine 0.50(L) 0.60 - 1.30 mg/dL 05/29/2025 12:40 PM [facility] eGFR 104 >59 mL/min/1.7 3m2 05/29/2025 12:40 PM [facility] Comment:Estimated glomerular filtration rate calculated using the CKD-EPI refit equation. Glucose 105(H) 70 - 99 mg/dL 05/29/2025 12:40 PM [facility] Calcium 8.7 8.5 - 10.5 mg/dL 05/29/2025 12:40 PM [facility] AST 20 <40 U/L 05/29/2025 12:40 PM [facility] ALT 13 <50 U/L 05/29/2025 12:40 PM [facility] Alkaline Phosphatase 96 40 - 130 U/L 05/29/2025 12:40 PM [facility] Bilirubin, Total 0.4 0.0 - 1.2 mg/dL 05/29/2025 12:40 PM [facility] Total Protein 6.0(L) 6.4 - 8.3 g/dL 05/29/2025 12:40 PM [facility] Albumin 3.4(L) 3.5 - 5.2 g/dL 05/29/2025 12:40 PM [facility] Globulin 2.6 1.9 - 4.1 g/dL 05/29/2025 12:40 PM [facility] Blood (Blood) 05/29/2025 8:0 5 AM EST 05/29/2025 9:45 AM EST us Dee Dee Geronimo MD LAB BLOOD BKR ORDERABLES Final Result [facility] [address] [place] [address] documented in this encounter Visit Diagnoses Diagnosis Illness, unspecified documented in this encounter Additional Health Concerns Infection Onset Date Last Indicated Resolved Time Resp-Risk 05/25/2025 05/25/2025 06/05/2025 7:06 PM EST documented as of this encounter Care Teams Educational Therapy Teacher Relationship Specialty Start Date End Date Abbi Saha FNP [address] [place] [id number] PCP - General Nurse Practitioner 05/24/25 documented as of this encounter Additional Source Comments The information contained in this document represents components of the legal health record. It is not the complete legal health record.[facility]
--- OUTSIDE RECORDS SUMMARY | 2025-06-15 12:52 | XMS_ITS | Encounter Summary ---
Author Organization [employer] Address [address] [facility] 7t [place] [address] Care Team Providers Care Automotive Designer Name Role Phone Maria A [facility] Primary Care Provider Reason for Visit * Reason Comments Transition Of Care (Tcm) HDF unscheduled Encounter Details Date Type Department Care Team ([facility] Contact Info) Description 06/11/2025 Patient Outreach [facility] MEDICINE [address] [place], [place] [phone] [facility] [address] [place] [address] Transition Of Care (Tcm) (HDF unscheduled) Social History Tobacco Use Types Packs/Day Years [...] as of this encounter Progress Notes * Candy Ramirez - 06/11/2025 10:32 AM EST Ship/Rec/Doc Control placed outbound call to Patient daughter after CCC received an internal message daughter Maya call seeking to create an HDF visit with provider after Discharge from [facility] in [place] set for 06/13/2025. Ship/Rec/Doc Control left a voice message to return call to schedule patient. * Navjot Alamo - 06/11/2025 10:32 AM EST Tc from pt daughter returning call back regarding prior message. Contact daughter at [phone] documented in this encounter Plan of Treatment Upcoming Encounters Date Type Department Care Team (Late st Contact Info) Description 06/22/2025 10:00 AM EST Office Visit [facility] MEDICINE [address] [place] [address] Rosanna Cohen DO [address] [place] [address] 09/10/2025 2:15 PM EST Office Visit [facility] ADULT DENTAL [address] [place] [address] Nusrat Lynch [address] [place] [address] documented as of this encounter Goals Goal [...] documented as of this encounter Care Teams Automotive Designer Relationship Specialty Start Date End Date [place] Abbi HABITAT BIOLOGIST [address] [place] [phone] PCP - General Family Medicine 04/01/23 Noemi GARCIA 05/08/24 documented as of this encounter
--- OUTSIDE RECORDS SUMMARY | 2025-06-15 12:52 | XMS_ITS | Encounter Summary ---
Author Organization [employer] Address [address] [facility] 7t [place] [address] Care Team Providers Care Manager Lean Name Role Phone [place] [facility] Primary Care Provider [phone] Reason for Visit * Reason Comments Med Refill Encounter Details Date Type Department Care Team ([facility] Contact Info) Description 07/16/2024 Refill [facility] MEDICINE [address] [place], [place] [phone] [place] [facility] [address] [place] [address] Type 2 diabetes mellitus with hyperglycemia, without long-term current use of insulin ([facility]) Social History Tobacco Use Types [...] Description 06/22/2025 10:00 AM EST Office Visit [facility] MEDICINE [address] [place] [address] Rosanna Cohen DO [address] [place] [address] 09/10/2025 2:15 PM EST Office Visit [facility] ADULT DENTAL [address] [place] [address] Nusrat Lynch [address] [place] [address] documented as of this encounter Visit Diagnoses Diagnosis Type 2 diabetes mellitus with hyperglycemia, without long-term current use of insulin (HCC) documented in this encounter Additional Health Concerns Assessment Noted Time PHQ-9 Depression Total Score: 0 07/05/20 24 11:25 AM EST documented as of this encounter Care Teams Manager Lean Relationship Specialty Start Date End Date Abbi Saha FNP [address] [place] [phone] PCP - General Family Medicine 04/01/23 Noemi GARCIA 05/08/24 documented as of this encounter
--- OUTSIDE RECORDS SUMMARY | 2025-06-15 12:52 | XMS_ITS | Clinical Summary ---
Author Organization [facility] Address [address] [place] [address] Phone Care Team Providers Care Relocation Coordinator Name Role Phone Unavailable Primary Care Provider [...] Screening 2024 Depression Screening 07/19/2024 COVID-19 Vaccine ( season) 2025 05/15/2024, 04/23/2023, [...] patient's age to complete this topic Insurance [facility]
--- OUTSIDE RECORDS SUMMARY | 2025-06-15 12:52 | XMS_ITS | Encounter Summary ---
Author Organization [facility] Address [address] [place] [address] Phone Care Team Providers Care Liquor Tester Name Role Phone Abbi Saha ROB Primary Care Provider [phone] Encounter Details Date Type Department Care Team (Late st Contact Info) Description 05/25/2025 Procedure [facility] [address] [place] [address] Social History Tobacco Use Types [...] 05/25/2025 3:15 AM Jillian Mayen RN * [place] Suicide Severity Rating Scale (Screener/Recent Self-Report) Question [...] documented as of this encounter Care Teams Liquor Tester Relationship Specialty Start Date End Date Abbi SahaROB [address] [place] [phone] PCP - General Nurse Practitioner 05/24/25 documented as of this encounter Additional Source Comments The information contained in this document represents components of the legal health record. It is not the complete legal health record.[facility]
--- OUTSIDE RECORDS SUMMARY | 2025-06-15 12:52 | XMS_ITS | Clinical Summary ---
Author Organization [facility] Address [address] [facility] [address] [place] [address] Phone Care Team Providers Care Pipe Organ Tuner And Repairer Name Role Phone Maria A [place] Primary Care Provider [phone] Allergies No known active allergies Medications Multiple [...] [facility] [address] [address] Rosanna Zamudio ARNP [address] [address] Health Maintenance Due Date Last [...] topic Insurance [facility] Medicare Medicaid [place] Care Teams Pipe Organ Tuner And Repairer Relationship Specialty Start Date End Date [facility] [address] [place] [address] PCP - General 11/22/24
[2025-06-15 13:09] LABS: INTERNATIONAL NORM RATIO 1.3 (0.9-1.1); Prothrombin Time 15.9 SEC (11.2-13.5)
--- NOTE | 2025-06-15 13:35 | ECG_ITS ---
Test Reason : hyperkalemia Blood Pressure : */* mmHG Vent. Rate : 118 BPM Atrial Rate : 118 BPM P-R Int : 134 ms QRS Dur : 114 ms QT Int : 312 ms P-R-T Axes : 23 -22 34 degrees QTcB Int : 437 ms Sinus tachycardia Right bundle branch block Abnormal ECG When compared with ECG of 13-May-2025 19:09, ST now depressed in Anterior leads Referred By: Hakan Diehl Electronically Signed By: MORENO TANNER
[2025-06-15] MEDS: Albuterol Sulfate 7.5 MG, Albuterol Sulfate (0.083%) 2.5 MG 10 MG INHALE (13:55)
[2025-06-15 14:04] LABS: Reflex Lactate? Lactic Acid Added
[2025-06-15] MEDS: Furosemide 40 MG/4 ML VIAL IVPUSH (14:05)
--- NOTE | 2025-06-15 14:06 | MHC.EDTECH ---
REPEAT EKG OBTAINED AND DOCUMENTED AT 1345 PER MD.
[2025-06-15] MEDS: Calcium Gluconate/NaCl,Iso-Osm 1 GM/50 ML PLAST..BAG IV (14:14)
--- NOTE | 2025-06-15 14:43 | PC.NURSE ---
Alert and responsive, reports feeling better after pisano cath was placed. Large amount of sediment in pisano tube. Daughter at bedside aware of plan of care
--- NOTE | 2025-06-15 15:17 | PHA.MEDREC ---
Addendum entered by Kb Falcon, PharmD 06/15/25 15:37: MED REC CHECKED BY [facility] Original Note: Pharmacy Consult ? Medication Reconciliation Pharmacy has completed the medication reconciliation. Family at bedside has paperwork from pt rehab he was just discharged from 06/13; utilized that to confirm pt med rec. Famotidine 20mg QD LF 06/04; not apart of list from rehab but confirmed on med rec due to recently filled.
[2025-06-15 16:32] LABS: Reflex Lactate? Lactic Acid Added
[2025-06-15 16:47] LABS: Potassium 5.0 mmol/L (3.3-5.1)
[2025-06-15 16:59] LABS: Anion Gap 22 (12-20); Blood Urea Nitrogen 53 mg/dL (9-16); Calcium 9.0 mg/dL (8.4-10.2); Carbon Dioxide 13 mmol/L (22-29); Chloride 106 mmol/L (96-108); Creatinine Clr Calc Pharmacy 16.8; Estimated Glomerular Filt Rate 20; Potassium 5.0 mmol/L (3.3-5.1); Sodium 136 mmol/L (135-145)
[2025-06-15 17:00] LABS: ~Lactic Acid-LAB USE ONLY 7.1 mmol/L (0.5-2.0)
[2025-06-15 17:24] LABS: ~Lactic Acid-LAB USE ONLY 8.8 mmol/L (0.5-2.0)
--- NOTE | 2025-06-15 17:24 | PC.NURSE ---
MD aware of elevated lactics
--- NOTE | 2025-06-15 17:50 | PC.NURSE ---
Alert and responsive, denies pain or discomfort. Family at bedside.
--- NOTE | 2025-06-15 18:11 | PM.IMHP ---
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 The patient has unfortunately altered, and represents a poor historian. History was obtained from collateral sources by bedside and from ED provider's note. As per reports, the family was unable to fully manage the patient's care after being transferred home from jail facility (discharged 06/14). Family unfortunately believes the patient is unsafe and can not care for herself at home. The patient endorses experiencing pain in the suprapubic region and the bilateral iliac regions. He endorses feeling weaker than normal, specifically noting discomfort in the lower extremities. Patient also endorses he has had a cough that has resolved few days ago, that was productive of sputum. He is unable to elaborate further. Furthermore the patient reports experiencing some BRBPR; small quantities, occurring after bowel motion, and only after a few wipes - no clots, melena, hematochezia. ER COURSE In the emergency room, it was noted the patient had a fever 100.6 F, tachycardic 104 and normotensive. Patient spikes another fever to 101.4. Heart rate increased to 120-130 beats per minute, remained normotensive and not hypoxic. Blood work performed, revealing hyper leukocytosis 25.3, with neutrophilic shift 89%, hemoglobin 13.1, platelets of 382 INR 1.3 Chemistry reveals sodium 134, potassium 6.1, chloride 105, carbon dioxide 15, anion gap of 20. Creatinine 3.06 with BUN of 53. EGFR 20. Baseline creatinine 0.6 Of note, lactic acid elevated 3.9. Sepsis alert was activated by the emergency room. Goals of care discussion was held with the provider in emergency room and family members, opting to proceed with intervention, confirming DNR/DNI status 30 cc/kilogram bolus administered, blood cultures obtained, septic workup completed Bloods redrawn 16:00, revealing improvement in potassium to 5.0, creatinine stabilization at 2.98, BUN 53 Lactic acid continued to increase 4.9 to 7.1 to 8.8. Urinalysis consistent with UTI. CT abdomen and pelvis ordered by emergency room for further evaluation. Review of Systems Review of Systems: Yes all other systems are reviewed and are negative [facility], [facility] Medical History Syncope and collapse 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) HLD (hyperlipidemia) GERD (gastroesophageal reflux disease) Exocrine pancreatic insufficiency Abdominal bloating Renal cyst Loose stools History of revision of total replacement of right knee joint Lung mass High cholesterol Anemia Pleural hemorrhage Diverticulosis Hyponatremia Acute hyponatremia Colon cancer screening Erectile dysfunction Gastritis COVID-19 virus infection Hydrocele Cataract Hypercholesteremia Diabetes BPH (benign prostatic hyperplasia) Hypertension Family History Father Diabetes Mother Diabetes Uterus cancer Mother Cancer Surgical History History of bilateral knee replacement Visit for wound check S/P chest tube placement Hx of colonoscopy History of prostate surgery Social History Household Members: Spouse Housing: Apartment Housing Other:: Pt lives in senior housing Are you a primary associate director career services to a significant other at home: No Do you presently have visiting nurse or other home services: Yes Alcohol intake: never Comment: camera placed as pt is impulsive, attempts to get OOB. Hx falls recently Patient Tobacco Use Status: Tobacco use Unknown Smoked in Last 30 Days: No Use of substances other than those prescribed or required for medical reasons: No Advance Directives: Yes Advance Directives on File: Yes Advance Directives Date on File: 04/06/25 Do you have a plan to hurt others: No Plan service: No Current occupational status: retired Current occupation: right handed Gender identity: Male Meds Allergies Allergy/AdvReac Type Severity Reaction Status Date / Time vancomycin Allergy Intermediate Redness of Verified 06/15/25 11:18 Skin Active Medications: Current Medications Acetaminophen (Acetaminophen 325 Mg Tablet) 650 mg PO Q6H PRN PRN Reason: Pain, Mild 1-3,fever,headache Calcium Carbonate (Calcium Carbonate 750 Mg Tab.Chew) 750 mg PO Q4H PRN PRN Reason: Heartburn Sodium Chloride (Ns) 500 mls @ 50 mls/hr IV .Q10H [facility] Stop: 06/16/25 02:14 Last Admin: 06/15/25 16:51 Dose: 50 mls/hr Magnesium Hydroxide (Milk Of Magnesia 30 Ml Oral.Susp) 30 ml PO DAILY PRN PRN Reason: Constipation Melatonin (Melatonin 3 Mg Tablet) 6 mg PO BEDTIME PRN PRN Reason: Insomnia Sodium Chloride (0.9 % Sodium Chloride Flush 3 Ml Syringe) 3 ml IVFLUSH QSHIFT [facility] Home Medications ?Medication ?Instructions ?Recorded ?Confirmed ?Last Taken ?Type atorvastatin 10 mg tablet 10 mg PO DAILY 05/08/20 06/15/25 06/14/25 History blood sugar diagnostic #10 ea 10/04/20 05/04/25 Unknown History lancets 33 gauge #100 ea 10/04/20 05/04/25 Unknown History metformin 1,000 mg tablet 1,000 mg PO BID 10/04/20 06/15/25 06/14/25 History multivitamin 1 tab PO DAILY@1700 10/04/20 06/15/25 06/14/25 History otaysn-lgmrnjoe-giuqic(pork)24,000-76,000-120,000 2 cap PO TIDWM 04/22/25 06/15/25 06/14/25 History unit capsule,del rel (Creon) mirtazapine 7.5 mg tablet 7.5 mg PO BEDTIME 04/22/25 06/15/25 06/14/25 History sitagliptin phosphate 25 mg tablet 25 mg PO DAILY 04/22/25 06/15/25 06/14/25 History (Januvia) tamsulosin 0.4 mg capsule 0.4 mg PO DAILY 05/14/25 06/15/25 06/14/25 History acetaminophen 500 mg tablet 500 mg PO TID PRN Pain 06/15/25 06/15/25 Unknown History carbidopa 25 mg-levodopa 100 mg 1 tab PO DAILY 06/15/25 06/15/25 06/14/25 History tablet dabrafenib 75 mg capsule (Tafinlar) 150 mg PO BID 06/15/25 06/15/25 06/14/25 History famotidine 20 mg tablet 20 mg PO DAILY 06/15/25 06/15/25 Unknown History sennosides 8.6 mg tablet (senna) 8.6 mg PO DAILY PRN Constipation 06/15/25 06/15/25 Unknown History Physical Exam Vital Signs and Narrative: Vital Signs: Last Vital Signs Temp 101.4 F H 06/15/25 15:17 Pulse 117 H 06/15/25 17:33 Resp 18 06/15/25 17:33 BP 139/50 L 06/15/25 16:54 Pulse Ox 99 06/15/25 17:25 O2 Del Method Room Air 06/15/25 17:25 BMI result Body Mass Index 19.3 General: A&O x2, oriented to time place person and situation, comfortable, no pain. NON ill appearing currently. Cardiac: S1, S2 auscultated with no S3/4, no MRG. Well perfused. Respiratory: Normal breath sounds auscultated throughout all lung zones, without wheezing, rales. Normal rate. GI/ : Abdominal pain on palpation of the suprapubic and bilateral iliac regions on light and deep palpation. No tenderness on palpation of other regions. No rebound tenderness or guarding MSK: Normal ambulation without pain at bony prominences or musculature Neurological: Normal neurological examination on overview, without obvious CN II-XII abnormalities. Results Labs 06/15/25 11:57 06/15/25 16:17 Labs: Laboratory Results - last 24 hr 06/15/25 06/15/25 06/15/25 11:57 12:21 12:52 MCV 85.7 MCH 28.4 MCHC 33.1 RDW 17.4 H Plt Count 382 D MPV 8.1 L Immature Gran % (Auto) Cancelled Neut % (Auto) Cancelled Lymph % (Auto) Cancelled [place] % (Auto) Cancelled Eos % (Auto) Cancelled Baso % (Auto) Cancelled Lymph # (Auto) Cancelled [place] # (Auto) Cancelled Eos # (Auto) Cancelled Baso # (Auto) Cancelled Abs Immat Gran (auto) Cancelled Absolute Neuts (auto) Cancelled Absolute Nucleated RBC 0.000 Nucleated RBC % (auto) 0.0 Neutrophils % (Manual) 89 H Band Neutrophils % 7 H Lymphocytes % (Manual) 3 L Metamyelocytes % 1 Abs Neuts (Manual) 24.3 H Lymphocytes # (Manual) 0.8 L Metamyelocytes # 0.3 Toxic Vacuolation PRESENT Platelet Estimate NORMAL Plt Morphology Comment NORMAL RBC Morphology NOTED Sujey Cells 2+ (3-5) Smear Tech's Comments MANUAL DIFF PT 15.9 H INR 1.3 H Anion Gap 20 Estim Creat Clear Calc 16.4 Estimated GFR 20 Random Glucose 183 H Lactic Acid 3.9 H* Lactic Acid F/U @ 2Hr Calcium 10.0 D Total Bilirubin 0.9 Urine Color Yellow Urine Appearance Turbid Urine pH >= 9.0 Ur Specific [place] 1.015 Urine Protein 300 (3+) H Urine Glucose (UA) Negative Urine Ketones Negative Urine Blood Large (3+) H Urine Nitrite Negative Ur Leukocyte Esterase Large (3+) H Urine RBC >20 H Urine WBC >50 H Ur Squamous Epith Cells 0-2 Urine Bacteria 4+ Hyaline Casts 3-5 06/15/25 06/15/25 06/15/25 14:28 16:17 16:55 MCV MCH MCHC RDW Plt Count MPV Immature Gran % (Auto) Neut % (Auto) Lymph % (Auto) [place] % (Auto) Eos % (Auto) Baso % (Auto) Lymph # (Auto) [place] # (Auto) Eos # (Auto) Baso # (Auto) Abs Immat Gran (auto) Absolute Neuts (auto) Absolute Nucleated RBC Nucleated RBC % (auto) Neutrophils % (Manual) Band Neutrophils % Lymphocytes % (Manual) Metamyelocytes % Abs Neuts (Manual) Lymphocytes # (Manual) Metamyelocytes # Toxic Vacuolation Platelet Estimate Plt Morphology Comment RBC Morphology Sujey Cells Smear Tech's Comments PT INR Anion Gap 22 H Estim Creat Clear Calc 16.8 Estimated GFR 20 Random Glucose 125 H Lactic Acid 4.9 H* Lactic Acid F/U @ 2Hr 7.1 H* 8.8 H* Calcium 9.0 D Total Bilirubin Urine Color Urine Appearance Urine pH Ur Specific [place] Urine Protein Urine Glucose (UA) Urine Ketones Urine Blood Urine Nitrite Ur Leukocyte Esterase Urine RBC Urine WBC Ur Squamous Epith Cells Urine Bacteria Hyaline Casts Imaging Radiologist's Impressions: Impressions Chest X-Ray 06/15/25 11:31 IMPRESSION: No evidence for acute disease in the chest. Electronically signed by: Faviola Mcclendon MD 06/15/2025 11:39 AM EST Assessment and Plan (1) GERD (gastroesophageal reflux disease): Qualifiers: Esophagitis presence: without esophagitis Qualified Code(s): K21.9 - Gastro-esophageal reflux disease without esophagitis Status: Acute (2) Exocrine pancreatic insufficiency: Status: Acute (3) Acute kidney injury: Status: Acute (4) Hyponatremia: Status: Acute (5) Acute hyperkalemia: Status: Acute (6) Hydrocele: Qualifiers: Hydrocele type: unspecified Qualified Code(s): N43.3 - Hydrocele, unspecified Status: Acute (7) Non-small cell carcinoma of lung: Qualifiers: Laterality: unspecified laterality Qualified Code(s): C34.90 - Malignant neoplasm of unspecified part of unspecified bronchus or lung Status: Chronic (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: Status: Acute (9) Severe sepsis: Status: Acute (10) Lactic acid acidosis: Status: Acute (11) Type II diabetes mellitus: Qualifiers: Diabetes mellitus usp insulin use: with intermediate designer use Diabetes mellitus complication status: with other specified complication Qualified Code(s): E11.69 - Type 2 diabetes mellitus with other specified complication; Z79.4 - intermodal dispatcher (current) use of insulin Status: Acute (12) Side effect of drug: Status: Acute Plan Patient is a 80-year-old male, with a background 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 Severe Sepsis UTI Recent Serratia Urosepsis Received ceftriaxone and vancomycin in the emergency room PLAN - start vancomycin - started Zosyn - monitor lactic acid - pending urinary cultures - follow up blood culture - 100 cc/hour LR - Pat catheter - Monitor intake/output aggressively q.6 hours Severe NEELIMA CKD stage IIIa PLAN - hold nephrotoxic agents - 100 cc/hour lactated ringer - renally dose vancomycin and Zosyn - follow up lactic acid - replete electrolytes aggressively - Pat catheter - Monitor intake/output aggressively q.6 hours HAGMA Lactic acidosis High anion gap metabolic acidosis likely 2/2 lactic acidosis in the setting of metformin use PLAN - hold metformin - monitor lactic acid aggressive - CT abdomen pelvis stat to rule out mesenteric ischemia - monitor respiratory status Hyperkalemia Hypomagnesemia Secondary to severe NEELIMA PLAN - monitor BMP regularly - cardiac telemetry - check magnesium - continue magnesium 400 mg OD p.o. Small cell lung cancer Med list includes dabrafenib 150 mg p.o. b.i.d. & trametinib 2 mg OD p.o. Hematology oncology consultation to be placed to clarify medications Type II DM PLAN - ISS - POC glucose t.i.d. & nocte - HOLD METFORMIN - hold Januvia HTN Hold all antihypertensives HLD Hold atorvastatin Pancreatic insufficiency Resume Creon BPH Hold tamsulosin Resume when voiding trial being attempted GERD Continue famotidine ? Parkinsonism Hold carbidopa levodopa Consult neurology as appropriate for resumption of medication QUALITY METRICS - VTE: SCDs - MUST RULE OUT MESENTERIC ISCHEMIA - CODE STATUS: DNR/DNI - DIET: NPO Total time managing care of this patient today: 60 minutes. Quality Stroke Does the patient have a stroke diagnosis?: No VTE Prior VTE?: No VTE Risk Level:: Medical - moderate - high VTE Device Contraindication: N/A - Device Ordered VTE Drug Contraindication: N/A - Med Ordered
[2025-06-15 18:20] LABS: Reflex Lactate? 2 Y
[2025-06-15] MEDS: Lactated Ringers 1,000 ML 100 ML IVCONT (18:48)
[2025-06-15 18:58] LABS: Reflex Lactate? 2 Y
[2025-06-15 19:20] LABS: Venous Blood Gas Refer to POC result
[2025-06-15 19:22] LABS: VBG HCO3 16 mmol/L (22-26); VBG O2 % Saturation 97.0 %
[2025-06-15 19:34] LABS: Anion Gap 19 (12-20); Blood Urea Nitrogen 54 mg/dL (9-16); Calcium 9.2 mg/dL (8.4-10.2); Carbon Dioxide 16 mmol/L (22-29); Chloride 106 mmol/L (96-108); Creatinine Clr Calc Pharmacy 17.2; Estimated Glomerular Filt Rate 21; Potassium 5.1 mmol/L (3.3-5.1); Sodium 136 mmol/L (135-145)
[2025-06-15 20:42] LABS: Glucose, Whole Blood 105 mg/dL (60-115)
--- NOTE | 2025-06-15 20:43 | PHA.PROG ---
Admission Date/Time: June 15, 2025 17:50 Indication: Empiric Therapy Weight in k.6 kg Adjusted body weight in Kg: [place] body weight in Kg: Obesity Dosing Indication % IBW: Serum Creatinine - Last 168 Hours 06/15/25 06/15/25 06/15/25 11:57 16:17 19:09 Creatinine 3.06 H 2.98 H 2.91 H Estimated CrCl and GFR - Last 168 Hours 06/15/25 06/15/25 06/15/25 11:57 16:17 19:09 Estim Creat Clear Calc 16.4 16.8 17.2 Estimated GFR 20 20 21 Vancomycin Loading Dose: 1500 mg Current Vancomycin Dosing Regimen: 500 mg Q24H Vancomycin Monitoring using AUC goal of 400 - 600 range with trough as surrogate marker: Predicted AUC 527 and trough 18.9 Date and Time for next Vancomycin Level to be drawn: 06/17 @1200 Pharmacist Comments on Vancomycin Plan: Possible red man's syndrome reaction to vancomycin load. Extended infusion rate for 500 mg dose to 1.[address] Willis. Vancomycin dosing will take advantage of [employer] as a clinical decision support tool that uses Bayesian modeling to calculate individual patient's pharmacokinetic parameters and forecast the patient's drug concentration time course with the target goal AUC 24 range of 400 - 600 mg/L/hr.
[2025-06-15] MEDS: Acetaminophen Supp 650 MG SUPP.RECT PR (21:12)
[2025-06-15 21:13] LABS: Reflex Lactate? Lactic Acid Added
[2025-06-15 22:25] LABS: ~Lactic Acid-LAB USE ONLY 3.5 mmol/L (0.5-2.0)
[2025-06-15] MEDS: Lactated Ringers 500 ML 999 ML IV (22:42)
[2025-06-15 23:43] LABS: Reflex Lactate? 2 Y
[2025-06-15 23:52] LABS: Anion Gap 19 (12-20); Blood Urea Nitrogen 53 mg/dL (9-16); Calcium 9.4 mg/dL (8.4-10.2); Carbon Dioxide 18 mmol/L (22-29); Chloride 106 mmol/L (96-108); Creatinine Clr Calc Pharmacy 18.9; Estimated Glomerular Filt Rate 24; Potassium 5.1 mmol/L (3.3-5.1); Sodium 138 mmol/L (135-145)
--- NOTE | 2025-06-15 23:56 | PC.NURSE ---
Addendum entered by Farhana Cortes RN 06/16/25 04:31: Delayed entry: cooling blanket removed at 01:06, rectal temp 100.2F. Original Note: Cooling blanket placed on pt with rectal probe at 23:52. Rectal temp 101.4
[2025-06-16] VITALS (7 sets, daily range): BP systolic 111–151; BP diastolic 57–83; PULSE 108–111; RESP 14–18; TEMP 36.1–37.9; O2SAT 95–97
[2025-06-16 01:37] LABS: Reflex Lactate? Lactic Acid Added
[2025-06-16 02:30] LABS: ~Lactic Acid-LAB USE ONLY 2.4 mmol/L (0.5-2.0)
[2025-06-16 03:07] LABS: Cancel Lactic Acid Canceled
[2025-06-16] MEDS: Lactated Ringers 1,000 ML 100 ML IVCONT (05:27)
--- NOTE | 2025-06-16 07:22 | HO.PM.IMPN ---
Subjective Subjective Date of Service: 06/16/25 Interval History: Patient is bacteremic repeated blood cultures continue broad-spectrum antibiotics Spoke to the family at the bedside with the safety and health manager-they elected hospice Review of Systems Review of Systems: Yes Unobtainable due to mental condition and Unobtainable due to mental status Physical Exam Exam: Exam: General: AOx0, appears acutely ill diaphoretic and deconditioned with flushed skin Resp: dec breath sounds bl CVS: S1, S2, RRR GI: mildly tender to palpation Skin: Warm, dry Psych: Confused, somnolent compared to yesterday Vital Signs: Vital Signs: Last Vital Signs Temp 97.5 F 06/16/25 03:15 Pulse 108 H 06/16/25 03:15 Resp 18 06/16/25 03:15 BP 151/70 H 06/16/25 03:15 Pulse Ox 97 06/16/25 03:15 O2 Del Method Room Air 06/16/25 03:15 BMI result Body Mass Index 19.1 Objective Data Active Medications Acetaminophen (Acetaminophen Supp 650 Mg Supp.Rect) 650 mg MI Q6H PRN PRN Reason: Fever Last Admin: 06/15/25 21:12 Dose: 650 mg Documented By: ANJU Lipase/Protease/Amylase (Lipase/Prot/Amylase 24/76/120k 1 Cap Capsule.Dr) 2 cap PO TIDWM JOHNATHAN Calcium Carbonate (Calcium Carbonate 750 Mg Tab.Chew) 750 mg PO Q4H PRN PRN Reason: Heartburn Dextrose (Dextrose 50 % 25 Gm/50 Ml Syringe) 25 gm IVPUSH Q15M PRN; Protocol PRN Reason: per Hypoglycemia Standing Ord. Glucose (Glucose Gel 15 Gm Gel..Gram.) 15 gm PO Q15M PRN; Protocol PRN Reason: per Hypoglycemia Standing Ord. Piperacillin Sod/Tazobactam (Sod 2.25 gm/ Sodium Chloride) 50 mls @ 100 mls/hr IV Q8H [facility] Last Infusion: 06/16/25 04:24 Dose: Infused Documented By: ANJU Lactated Ringer's (Lr) 1,000 mls @ 100 mls/hr IVCONT .Q10H [facility] Last Admin: 06/16/25 05:27 Dose: 100 mls/hr Documented By: ANJU Vancomycin HCl 500 mg/ Sodium (Chloride) 110 mls @ 73.333 mls/hr IV Q24H [facility] Insulin Human Lispro (Insulin Lispro 100 Unit/Ml 3 Ml Vial) 0 unit SUBCUT QIDACHS [facility]; Protocol Last Admin: 06/15/25 21:19 Dose: Not Given Documented By: ANJU Non-Admin Reason: No Insulin Coverage Magnesium Hydroxide (Milk Of Magnesia 30 Ml Oral.Susp) 30 ml PO DAILY PRN PRN Reason: Constipation Magnesium Oxide (Magnesium Oxide 400 Mg Tablet) 400 mg PO DAILY JOHNATHAN Melatonin (Melatonin 3 Mg Tablet) 6 mg PO BEDTIME PRN PRN Reason: Insomnia Pharmacy Consult (Consult Rx Vancomycin Dosing) 1 each MISCELLANE DAILY PRN PRN Reason: Consult order Sodium Chloride (0.9 % Sodium Chloride Flush 3 Ml Syringe) 3 ml IVFLUSH QSHIFT [facility] Last Admin: 06/16/25 03:50 Dose: Not Given Documented By: ANJU Non-Admin Reason: IV Running Labs 06/15/25 11:57 06/16/25 06:16 Labs: Laboratory Results - last 24 hr 06/15/25 06/15/25 06/15/25 11:57 12:21 12:52 MCV 85.7 MCH 28.4 MCHC 33.1 RDW 17.4 H Plt Count 382 D MPV 8.1 L Immature Gran % (Auto) Cancelled Neut % (Auto) Cancelled Lymph % (Auto) Cancelled Anson % (Auto) Cancelled Eos % (Auto) Cancelled Baso % (Auto) Cancelled Lymph # (Auto) Cancelled [place]son # (Auto) Cancelled Eos # (Auto) Cancelled Baso # (Auto) Cancelled Abs Immat Gran (auto) Cancelled Absolute Neuts (auto) Cancelled Absolute Nucleated RBC 0.000 Nucleated RBC % (auto) 0.0 Neutrophils % (Manual) 89 H Band Neutrophils % 7 H Lymphocytes % (Manual) 3 L Metamyelocytes % 1 Abs Neuts (Manual) 24.3 H Lymphocytes # (Manual) 0.8 L Metamyelocytes # 0.3 Toxic Vacuolation PRESENT Platelet Estimate NORMAL Plt Morphology Comment NORMAL RBC Morphology NOTED [place] Cells 2+ (3-5) Smear Tech's Comments MANUAL DIFF PT 15.9 H INR 1.3 H VBG pH VBG pCO2 VBG pO2 VBG HCO3 VBG O2 Saturation VBG Base Excess Anion Gap 20 Estim Creat Clear Calc 16.4 Estimated GFR 20 POC Glucose Random Glucose 183 H Lactic Acid 3.9 H* Lactic Acid F/U @ 2Hr Calcium 10.0 D Total Bilirubin 0.9 Urine Color Yellow Urine Appearance Turbid Urine pH >= 9.0 Ur Specific [place] 1.015 Urine Protein 300 (3+) H Urine Glucose (UA) Negative Urine Ketones Negative Urine Blood Large (3+) H Urine Nitrite Negative Ur Leukocyte Esterase Large (3+) H Urine RBC >20 H Urine WBC >50 H Ur Squamous Epith Cells 0-2 Urine Bacteria 4+ Hyaline Casts 3-5 06/15/25 06/15/25 06/15/25 14:28 16:17 16:55 MCV MCH MCHC RDW Plt Count MPV Immature Gran % (Auto) Neut % (Auto) Lymph % (Auto) Anson % (Auto) Eos % (Auto) Baso % (Auto) Lymph # (Auto) [place]son # (Auto) Eos # (Auto) Baso # (Auto) Abs Immat Gran (auto) Absolute Neuts (auto) Absolute Nucleated RBC Nucleated RBC % (auto) Neutrophils % (Manual) Band Neutrophils % Lymphocytes % (Manual) Metamyelocytes % Abs Neuts (Manual) Lymphocytes # (Manual) Metamyelocytes # Toxic Vacuolation Platelet Estimate Plt Morphology Comment RBC Morphology [place] Cells Smear Tech's Comments PT INR VBG pH VBG pCO2 VBG pO2 VBG HCO3 VBG O2 Saturation VBG Base Excess Anion Gap 22 H Estim Creat Clear Calc 16.8 Estimated GFR 20 POC Glucose Random Glucose 125 H Lactic Acid 4.9 H* Lactic Acid F/U @ 2Hr 7.1 H* 8.8 H* Calcium 9.0 D Total Bilirubin Urine Color Urine Appearance Urine pH Ur Specific [place] Urine Protein Urine Glucose (UA) Urine Ketones Urine Blood Urine Nitrite Ur Leukocyte Esterase Urine RBC Urine WBC Ur Squamous Epith Cells Urine Bacteria Hyaline Casts 06/15/25 06/15/25 06/15/25 19:09 19:14 20:38 MCV MCH MCHC RDW Plt Count MPV Immature Gran % (Auto) Neut % (Auto) Lymph % (Auto) Anson % (Auto) Eos % (Auto) Baso % (Auto) Lymph # (Auto) [place]son # (Auto) Eos # (Auto) Baso # (Auto) Abs Immat Gran (auto) Absolute Neuts (auto) Absolute Nucleated RBC Nucleated RBC % (auto) Neutrophils % (Manual) Band Neutrophils % Lymphocytes % (Manual) Metamyelocytes % Abs Neuts (Manual) Lymphocytes # (Manual) Metamyelocytes # Toxic Vacuolation Platelet Estimate Plt Morphology Comment RBC Morphology [place] Cells Smear Tech's Comments PT INR VBG pH 7.43 VBG pCO2 23 VBG pO2 88 VBG HCO3 16 L VBG O2 Saturation 97.0 VBG Base Excess -6.1 Anion Gap 19 Estim Creat Clear Calc 17.2 Estimated GFR 21 POC Glucose 105 Random Glucose 120 H Lactic Acid 4.8 H* Lactic Acid F/U @ 2Hr Calcium 9.2 Total Bilirubin Urine Color Urine Appearance Urine pH Ur Specific [place] Urine Protein Urine Glucose (UA) Urine Ketones Urine Blood Urine Nitrite Ur Leukocyte Esterase Urine RBC Urine WBC Ur Squamous Epith Cells Urine Bacteria Hyaline Casts 06/15/25 06/15/25 06/16/25 21:35 23:32 02:02 MCV MCH MCHC RDW Plt Count MPV Immature Gran % (Auto) Neut % (Auto) Lymph % (Auto) Anson % (Auto) Eos % (Auto) Baso % (Auto) Lymph # (Auto) [place]son # (Auto) Eos # (Auto) Baso # (Auto) Abs Immat Gran (auto) Absolute Neuts (auto) Absolute Nucleated RBC Nucleated RBC % (auto) Neutrophils % (Manual) Band Neutrophils % Lymphocytes % (Manual) Metamyelocytes % Abs Neuts (Manual) Lymphocytes # (Manual) Metamyelocytes # Toxic Vacuolation Platelet Estimate Plt Morphology Comment RBC Morphology [place] Cells Smear Tech's Comments PT INR VBG pH VBG pCO2 VBG pO2 VBG HCO3 VBG O2 Saturation VBG Base Excess Anion Gap 19 Estim Creat Clear Calc 18.9 Estimated GFR 24 POC Glucose Random Glucose 88 Lactic Acid 2.8 H* Lactic Acid F/U @ 2Hr 3.5 H* 2.4 H* Calcium 9.4 Total Bilirubin Urine Color Urine Appearance Urine pH Ur Specific [place] Urine Protein Urine Glucose (UA) Urine Ketones Urine Blood Urine Nitrite Ur Leukocyte Esterase Urine RBC Urine WBC Ur Squamous Epith Cells Urine Bacteria Hyaline Casts Microbiology Microbiology Results: Microbiology 06/15/25 11:57 Blood Culture - Preliminary Blood - Venous Prelim: GNR Gram Stain only 06/15/25 11:59 Blood Culture - Preliminary Blood - Venous Prelim: GNR Gram Stain only Assessment and Plan (1) 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 (3) Catheter-associated urinary tract infection: Status: Acute Plan Patient is a 80-year-old male, with a background 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), osteoarthritis, BPH, T2 DM, recent admission for UTI, GERD, HLD, anemia, HTN, recent admission to hospital for severe sepsis 2/2 UTI Serratia species (DC 05/17/2025 to short-term rehab), brought to hospital By familyafter being transferred from short-term rehab to home for 1 day with adult failure to thrive, admitted with severe sepsis secondary to Gram -ve bacteremia and pyelonephritis with lactic acidemia and multi organ dysfunction (kidney, lung) In person Property Inspector used for the interaction Deemed hospice appropriate After extensive discussion-the healthcare proxy who is the daughter and 2nd daughter and a couple of other family members at the bedside they elected hospice-this was witnessed by the bedside RN and mail list librarian Family aware that patient would not get aggressive chemotherapy or dialysis if they were to elect hospice Hospice consult placed junior assistant manager made aware Severe Sepsis likely due to Left hydronephrosis and pyelonephrosis Recent Serratia UTI Received ceftriaxone and vancomycin in the emergency room - continue broad-spectrum antibiotics Zosyn -patient appears to have allergy to vancomycin redness of the skin-we will switch to IV daptomycin as linezolid has contraindication with his Parkinson's meds - monitor lactic acid q.4 hours till normalized -continue Pat catheter-likely we will need chronic Pat -aggressive fluid hydration with glucose to prevent hypotension and distributive shock Hypoglycemia -likely in the setting of bacteremia and NPO status -start D5 NS at 100 cc an hour -need to be cleared by speech prior to initiating diet Severe NEELIMA CKD stage IIIa HAGMA resolved with fluid Elevated Lactic acidosis High anion gap metabolic acidosis likely 2/2 lactic acidosis in the setting of metformin use Imaging read demonstrating hydronephrosis and pyelonephrosis patient likely needs chronic Pat given that it was just pulled out a day prior to admission and he developed NEELIMA NEELIMA likely prerenal renal and postrenal Metformin has been added to allergy given his creatinine clearance Prerenal-he is getting aggressive fluid hydration Renal he is being treated with antibiotics for pyelonephritis Postrenal he is having a Pat to decompress Hyperkalemia Hypomagnesemia Secondary to severe NEELIMA Hyperkalemia responded to medical management-we will continue to treat with 1 more dose of Lokelma Daily CMP Less likely to tolerate dialysis given his current clinical status Small cell lung cancer Med list includes dabrafenib 150 mg p.o. b.i.d. & trametinib 2 mg OD p.o. Hematology oncology consultation for medication management and prognostication Type II DM PLAN - ISS Patient should ideally not be on metformin-headed to allergy list Hypoglycemia being treated with D5 NS at 100 cc HTN Hold all antihypertensives given severe bacteremia HLD Hold atorvastatin Pancreatic insufficiency Continue Creon BPH Hold tamsulosin GERD Continue famotidine ? Parkinsonism Hold carbidopa levodopa Consult neurology as appropriate for resumption of medication Chronic decubitus ulcers -present on prior admission as well Wound care consulted Q2H hour repositioning Code status-DNR DNI-family elected to make the patient MACHINE DEBURRER if he were to clinically deteriorate prior to Wednesday when likely hospice would in get involved as this is a holiday weekend-family aware Hospice appropriate DVT prophylaxis with SCD boots This note is constructed using voice recognition software. While every effort has been made to ensure accuracy, shuttle filler errors may have been included. Quality Stroke Does the patient have a stroke diagnosis?: No VTE Prior VTE?: No VTE Risk Level:: Medical - moderate - high VTE Device Contraindication: N/A - Device Ordered VTE Drug Contraindication: N/A - Med Ordered
[2025-06-16 07:37] LABS: Creatinine Clr Calc Pharmacy 25.3; Estimated Glomerular Filt Rate 33
[2025-06-16 07:41] LABS: Glucose, Whole Blood 68 mg/dL (60-115)
--- NOTE | 2025-06-16 07:42 | PC.NURSE ---
BS 68 , pt NPO , D50 Iv administered , pt sleeping ,arousable to voice , DR chapman notified
[2025-06-16 07:53] LABS: Glucose, Whole Blood 146 mg/dL (60-115)
[2025-06-16] MEDS: 0.9 % Sodium Chloride Flush 3 ML SYRINGE IVFLUSH ×2 (08:07→15:49)
--- NOTE | 2025-06-16 08:08 | PC.NURSE ---
IV fluids changed d/t hypoglycemia ,
--- NOTE | 2025-06-16 09:41 | MHC.CM.PN ---
CM and [facility] Worker attempted to meet with Patient at bedside and it was clear that Patient was unable to participate with the CM Initial Assessment. CM spoke with /HCP/Emily @ [phone], with the assist of a Telephonic lip cutter and scorer and addressed IMM with her. Patient lives in an apartment with his and Daughter/LEAD SALES CONSULTANT 32 hours/week,is active with [facility] and he uses a w/c. Patient's Niece assists with care at night. Home/resume said services is the tentative plan and CM has initiated and will follow for dc planning. Patient appears likely to require BLS transport @ dc.
[2025-06-16 12:08] LABS: Glucose, Whole Blood 113 mg/dL (60-115)
--- NOTE | 2025-06-16 13:08 | HE.PHANOTE ---
Re: [place] Poor renal function, but improved today. Trough returned at 12.1 from load alone. Dose of 500mg q24h was predicting under goal AUC, dose increased to 750mg q24h with predicted AUC 565 and predicted trough 19.1. Next trough 06/17 @ 1200.
--- NOTE | 2025-06-16 13:38 | PC.NURSE ---
Allergy to Vanco ( redness of the skin) , message sent to DR Harp , pt has an order for Vanco IV for 14:00 , waiting for the response
[2025-06-16 15:44] LABS: Glucose, Whole Blood 156 mg/dL (60-115)
--- NOTE | 2025-06-16 15:49 | MHC.SL.SWA ---
Speech Pathologist Impression: Mild to moderte oral, mild pharyngeal dysphagia Risk of Aspiration Due to: Hx of Parkinson's Disease (no diagnosis of associated dysphagia per family) Hx of GERD Hx of small cell lung CA Dysphasia Diet Status: Recommend upgrade to NDD1 (purees) with [place] Thickened Liquids, straws ok. Meds Whole or crushed in Puree. Aspiration precautions, 1:1 feeding. Liquid Consistency and Strategies for Safe Swallow: Liquid Intake Recommendation: [place] Thick Liquid Intake Strategies: Solid Food Consistency: Dietary Recommendations: Pureed (NDD1) Additional Modifications to Solid Foods: Recommend NDD1 and NECTAR THICK liquids, pills whole or CRUSHED in PUREE. 1:1 feeding d/t upper body weakness. ELEVATOR CONSTRUCTOR HYDRAULIC discussed w/ patient and family strategies recommended for safety: take small bites/sips, one bite/sip at a time, slow pacing between bites/sips, remain upright while eating/drinking, cue pt to clear throat/ re-swallow if vocal wetness occurs, 1:1 supervision and close monitoring. Discontinue feeding if patient exhibits any overt s/s of aspiration. Oral Medication Intake: Whole with Puree Please contact the pharmacy regarding appropriate crushable or liquid drug formulations that are available whenever modified delivery is recommended. Compensatory Strategies and Precautions to be Taken for Safe Swallow: Supervision While Eating and Drinking for Safe Swallow: Total Assistance (1:1) Foods to Avoid: Mixed consistencies Swallowing Recommended Treatments: Recommendation for Speech: Inpatient Speech Therapy Comment: 06/16: production ski repairer present. RN consulted, noting pt had liquid meds but was NPO d/t concerns for dysphagia. Pt alert, able to follow simple commands. Reflexive swallow intact. Pt voicing mildly congested, pt endorsed increased phlegm. ROM of jaw, lips, tongue WFL for isolated movements. Speech production dysarthric. Pt had thick secretions on surface of posterior palate and uvula. ELEVATOR CONSTRUCTOR HYDRAULIC administered sweep with moist oral swab to move phlegm forward, pt expressed that water would help. Pt attempted to expel phlegm with forceful clear, tongue trust after sips of thins, ELEVATOR CONSTRUCTOR HYDRAULIC swept thick mucous from surface of pt tongue with dry oral swab upon visualizing material. Pt family initiated feeding pt as he was unable to hold cup or utensil. Anterior loss of thins and NTL by cup sips consistent d/t weak lip closure. Pt took sips by straw with cough occurring after consecutive swallows of thins. Pt tolerated NTL by straw sips with efficient oropharyngeal coordination, no overt s/s of aspiration with NTL. Pt tolerated tsps of pudding with adequate oropharyngeal coordination, no overt s/s of aspiration. Voicing remained clear s/p trials. ELEVATOR CONSTRUCTOR HYDRAULIC provided education to pt family on cueing pt to clear throat/re-swallow if voicing becomes wet or gurgly. Diet recc and ELEVATOR CONSTRUCTOR HYDRAULIC POC reviewed, family in agreement. RN and MD notified of recommendations via secure text, white board in pt room updated. Recc NDD1 (purees) with [place] Thickened Liquid, aspiration precautions, straws ok, meds in puree. ELEVATOR CONSTRUCTOR HYDRAULIC will follow and adjust diet as indicated. Frequency/Duration: Daily M-F Date Range for Service Req: Timeline to reassess: Carbide Powder Processor Clinican/Clinical Fellow: No Supervisory Statement: I have reviewed and agree with the student/clinical fellow's documentation: N/A Speech Language Pathologist: Naty Mendoza M.S., [facility]-ELEVATOR CONSTRUCTOR HYDRAULIC
--- NOTE | 2025-06-16 16:34 | HO.HCP ---
Health Care Proxy Invocation Health Care Proxy Declaration: I, , on the date cited below, have determined that, ___Viki Odom , lacks the capacity to make or communicate, informed health care decision. This determination is made in accordance with accepted standards of medical judgment and pursuant to [place] 201[place], the [facility] Care Proxy Law. The cause, nature, extent and probable duration of the patient's inapacity are described below: Cause: Advanced SCLL , failed chemo Nature: Natural Extent: Permanent Probable Duration of Patient's Incapacity: Indefinite
--- NOTE | 2025-06-16 16:37 | P.EN_ITS ---
Event Note Date of Service: 06/16/25 Event Note: This 80-year-old male with 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 He is not a candidate for further disease-modifying therapy (chemotherapy, dialysis) due to poor functional status, refractory infections, and limited physiologic reserve. His overall prognosis is extremely poor, with high short-term mortality risk and significant morbidity, justifying transition to comfort measures only (BRIDAL SERVICE SALES AND MANAGEMENT) and hospice care. Plan: BRIDAL SERVICE SALES AND MANAGEMENT orders with Valium and Dilaudid drip per BRIDAL SERVICE SALES [employer] MANAGEMENT orders and prn Causes of - Advanced SCLL , Multiorgan failure due to recurrent bactremia , Adult failure to thrive Time Spent With Patient Time: Total time managing care of this patient today ____ minutes.
[2025-06-16] MEDS: HYDROmorphone HCl/NS 10 MG/50 ML PIGGYBACK 2 MG IV (18:03)
[2025-06-17] MEDS: diazePAM 10 MG/2 ML CARTRIDGE 2.5 MG IVPUSH (00:04)
--- NOTE | 2025-06-17 08:26 | P.PNIM_ITS ---
Subjective Subjective Date of Service: 06/17/25 Interval History: Appears comfortable Family at bedside Review of Systems Review of Systems: Yes Unobtainable due to mental condition and Unobtainable due to mental status Physical Exam 2 Exam: Exam: Appears comfortable Not in distress Vital Signs: Vital Signs: Last Vital Signs Temp 97.7 F 06/16/25 16:00 Pulse 109 H 06/16/25 16:00 Resp 14 06/16/25 19:48 BP 111/57 L 06/16/25 16:00 Pulse Ox 97 06/16/25 16:00 O2 Del Method Room Air 06/16/25 16:00 BMI result Body Mass Index 19.1 Objective Data Active Medications Artificial Tears (Artificial Tears 15 Ml Drops) 2 drop EYE-BOTH Q4H PRN PRN Reason: Dry Eyes Diazepam (Diazepam 10 Mg/2 Ml Cartridge) 2.5 mg IVPUSH Q4H PRN PRN Reason: Anxiety Last Admin: 06/17/25 00:04 Dose: 2.5 mg Documented By: BYRON Docusate Sodium (Docusate Sodium 100 Mg Capsule) 100 mg PO BEDTIME [facility] Last Admin: 06/16/25 22:02 Dose: Not Given Documented By: IKE Non-Admin Reason: Patient Condition Contraindication Haloperidol Lactate (Haloperidol Lactate 5 Mg/Ml Vial) 0.5 mg IVPUSH Q4H PRN PRN Reason: Delirium Hydromorphone HCl (Dilaudid) 10 mg in 50 mls @ 0 mls/hr IV .Q0M [facility]; Protocol Last Admin: 06/16/25 18:03 Dose: 2 mls/hr Documented By: LALY Ondansetron HCl (Ondansetron Odt 4 Mg Tab.Rapdis) 4 mg TRANSLINGU Q8H PRN PRN Reason: Nausea and Vomiting Scopolamine (Scopolamine 1.5 Mg Patch.Td.3) 1.5 mg TRANSDERMA Q72H [facility] Last Admin: 06/16/25 18:07 Dose: 1.5 mg Documented By: LALY Senna (Sennosides 8.6 Mg Tablet) 8.6 mg PO BEDTIME [facility] Last Admin: 06/16/25 21:57 Dose: 8.6 mg Documented By: IKE Sodium Chloride (0.9 % Sodium Chloride Flush 3 Ml Syringe) 3 ml IVFLUSH QSHIFT JOHNATHAN Last Admin: 06/17/25 07:15 Dose: Not Given Documented By: ALVARO Non-Admin Reason: IV Running Labs 06/15/25 11:57 06/16/25 06:16 Labs: Laboratory Results - last 24 hr 06/16/25 06/16/25 06/16/25 11:34 12:12 14:24 POC Glucose 113 Lactic Acid 1.1 Random Vancomycin 12.1 L 06/16/25 15:37 POC Glucose 156 H Lactic Acid Random Vancomycin Microbiology Microbiology Results: Microbiology 06/16/25 10:14 Blood Culture - Preliminary Blood - Venous Prelim: GNR Gram Stain only 06/15/25 11:59 Blood Culture - Preliminary Blood - Venous Prelim: GNR Gram Stain only 06/15/25 12:21 Urine Culture - Preliminary Urine clean catch - Clean Catch Midstream Culture in progress. 06/15/25 11:57 Blood Culture - Preliminary Blood - Venous Prelim: GNR Gram Stain only Assessment and Plan (1) 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 Plan This 80-year-old male with 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 He is not a candidate for further disease-modifying therapy (chemotherapy, dialysis) due to poor functional status, refractory infections, and limited physiologic reserve. His overall prognosis is extremely poor, with high short-term mortality risk and significant morbidity, justifying transition to comfort measures only (HORTICULTURAL FARMWORKER) and hospice care after family had extensive discussion with all family members since admission. Pt was transitioned to HORTICULTURAL FARMWORKER the evening of 06/16/25 with whole famiy including 2 HCP at bedside in the presence of bedside RN. Roentgenology Teacher was used for all interactions. Orders were updated to reflect that. Plan: HORTICULTURAL FARMWORKER orders with Valium and Dilaudid drip per HORTICULTURAL FARMWORKER orders and prn Copolamine patch prn Causes of would be - Advanced SCLL , Multiorgan failure due to recurrent bactremia , Adult failure to thrive Quality Stroke Does the patient have a stroke diagnosis?: No VTE Prior VTE?: No VTE Risk Level:: Medical - moderate - high VTE Device Contraindication: N/A - Device Ordered VTE Drug Contraindication: N/A - Med Ordered
[2025-06-17] MEDS: HYDROmorphone HCl/NS 10 MG/50 ML PIGGYBACK 2 MG IV (17:02)
--- NOTE | 2025-06-17 17:13 | PC.NURSE ---
dilaudid IV bag changed 06/17 at 17:05. 4.3ml were wasted in the pyxis and was witnessed by LARISA Willoughby.
--- NOTE | 2025-06-17 17:15 | PC.NURSE ---
1705- SUPERVISOR [employer]ARD bag Dilaudid changed with Ariana Graham RN. No change in rate of infusion- Dilaudid remains at 2ml/hr (0.4mg/hr) Wasted 4.3 ml from previous bag.
--- NOTE | 2025-06-18 11:00 | P.CDIM_ITS ---
PROVIDER RESPONSE TEXT: To clarify, the appropriate diagnosis supported by the clinical indicators: Pressure (decubitus) ulcer: Coccyx/buttocksCoccyx stage 2 pressure injury Present on Admission, Right buttock healing stage 3 pressure injury present on admission. QUERY TEXT: PHYSICIAN'S DOCUMENTATION REQUEST Date of Query: 06/18/2025 10:26 AM EST Patient Name: Lei Drew Admit Date: 06/15/2025 Dear Aysha Harp MD, A review of the medical record indicates additional documentation may be needed. Please review below and update the documentation accordingly. Clinical Indicators: chronic decubitus ulcers noted Based on the above, could you please provide further information regarding the location and stage of the ulcer/wound: Pressure (decubitus) ulcer please specify stage and location Other (explain) Clinically unable to determine (explain) Thank you, Jessy Duran RN Use of terms such as suspected, likely, concern for, or probable (associated with a specific diagnosis that is being evaluated, monitored, or treated as if it exists) are acceptable and can be coded in the inpatient setting, when documented at the time of discharge. Please use your independent medical judgment in providing your response. THIS QUERY IS PART OF THE PERMANENT MEDICAL RECORD
--- NOTE | 2025-06-18 11:06 | PM.DS ---
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 He is not a candidate for further disease-modifying therapy (chemotherapy, dialysis) due to poor functional status, refractory infections, and limited physiologic reserve. His overall prognosis is extremely poor, with high short-term mortality risk and significant morbidity, justifying transition to comfort measures only (SUPERVISOR HAND SILVERING) and hospice care. During this hospitalization on 06/15/2025 he presents with worsening weakness somnolence and was noted to have bacteremia and after careful discussion with the family, patient was transitioned to SUPERVISOR HAND SILVERING on 06/16/2025 with the entire family both the healthcare proxy he is and he is being readmitted under [facility] hospice on 06/18/2025. Plan: SUPERVISOR HAND SILVERING orders with Valium and Dilaudid drip per SUPERVISOR HAND SILVERING orders and prn Scopolamine patch Causes of would be- Advanced SCLL , Multiorgan failure due to recurrent bactremia , Adult failure to thrive Time spent discussing smoking cessation with patient: more than 10 minutes Status at Discharge Functional status at discharge: bed bound Overall status at discharge: other (SUPERVISOR HAND SILVERING) Time Attestation Discharge Coordination Time (in mins): 56 Quality: Safe Use of Opioids Does Pt have an Active Cancer Diagnosis on the Problem List?: Yes Opioid Measure Date for [facility] Report: 05/19/25 Opioid Measure Time for [facility] Report: 11:07 Quality: Stroke Does the patient have a stroke diagnosis?: No Physical Exam Exam: Exam: Appears comfortable Not in distress Vital Signs: Vital Signs: Last Vital Signs Temp 97.7 F 06/16/25 16:00 Pulse 109 H 06/16/25 16:00 Resp 14 06/16/25 19:48 BP 111/57 L 06/16/25 16:00 Pulse Ox 97 06/16/25 16:00 O2 Del Method Room Air 06/16/25 16:00 BMI result Body Mass Index 19.1 DS: Data Data Completed and Pending Completed studies during hospitalization [Text1]: Procedures Drainage of Left Pleural Cavity with Drainage Device, Percutaneous Approach (04/29/24) Labs on day of discharge: Preliminary micro results at discharge 06/16/25 10:14 Blood Culture - Preliminary Blood - Venous Gram negative mike 06/16/25 10:14 Blood Culture - Preliminary Blood - Venous No growth after 24 hours. Discharge Plan Discharge Anticipated Discharge Date/Time: 06/18/25 11:10 Patient Disposition: Hospice - Medical Facility Discharge Diagnosis: Advanced small-cell lung cancer, multiorgan failure with recurrent bacteremia, adult failure to thrive Referrals: Abbi Saha FNP [Primary Care Provider, Medical] - 1 Week Discharge Medications: New diazepam 5 mg/mL Syringe 2.5 mg IVPUSH Q4H PRN (Reason: SUPERVISOR HAND SILVERING) Qty: 20 0RF hydromorphone (PF) 10 mg/mL Solution 10 mg IV .Q0M Qty: 10 0RF Rx Instructions: Partial Fill upon patient request. haloperidol lactate 5 mg/mL Solution 0.5 mg IVPUSH Q4H PRN (Reason: Delirium, SUPERVISOR HAND SILVERING) Qty: 10 0RF Discontinued (DME) walker [facility] See Rx Instructions .ROUTE .MEDSUPPLY Qty: 1 0RF Rx Instructions: Folding Front wheeled walker with seat terazosin 5 mg capsule 5 mg PO BEDTIME 90 Days Qty: 90 3RF magnesium oxide 400 mg magnesium Capsule 400 mg PO DAILY Qty: 30 1RF ondansetron 8 mg Tablet,Disintegrating 8 mg PO Q8H PRN (Reason: Nausea) Qty: 30 2RF trazodone 50 mg Tablet 50 mg PO BEDTIME Qty: 30 1RF mirtazapine 7.5 mg tablet 7.5 mg PO BEDTIME Januvia 25 mg tablet 25 mg PO DAILY Creon 24,000-76,000 -120,000 unit capsule,delayed release(DR/EC) 2 cap PO TIDWM tamsulosin 0.4 mg Capsule 0.4 mg PO DAILY famotidine 20 mg tablet 20 mg PO DAILY sennosides [senna] 8.6 mg Tablet 8.6 mg PO DAILY PRN (Reason: Constipation) acetaminophen 500 mg Tablet 500 mg PO TID PRN (Reason: Pain) carbidopa-levodopa 25-100 mg Tablet 1 tab PO DAILY Tafinlar 75 mg capsule 150 mg PO BID Rx Instructions: administer approximately 12 hours apart metformin 1,000 mg tablet 1,000 mg PO BID multivitamin Tablet 1 tab PO DAILY@1700 (DME) lancets 33 gauge misc See Rx Instructions topical .MEDSUPPLY Qty: 100 Rx Instructions: As directed (DME) blood sugar diagnostic Strip See Rx Instructions Not Applicable BID Qty: 10 Rx Instructions: As directed atorvastatin 10 mg tablet 10 mg PO DAILY Mekinist 2 mg tablet 2 mg PO DAILY@0600 Qty: 60 6RF Rx Instructions: must be taken on empty stomach, at least 1 hr before or 2-3 hrs after meal/food Discharge Orders: Discharge Order (Routine); Ordered 06/18/25 Ordered By: Aysha Harp Diet: Advance to usual diet Activity on Discharge: SUPERVISOR HAND SILVERING Stand Alone Forms: Patient Portal Discharge page Print Language: Cymro Care Plan Goals: Goal is comfort care and the patient is comfortable Health Concerns: See above Plan of Treatment: See above Assessment: See above
--- NOTE | 2025-06-18 12:00 | MHC.CM.PN ---
Patient transitioned to TRAVEL SERVICE CONSULTANT on 06/16. C RN at bedside to evaluate and determined patient is appropriate for GIP admission. Family at bedside and agreeable.
== END 2025-06-18 12:00 | disposition hospice, inpatient (51) | DRG 871 ==
LOC: HO.ED 14:28 → HO.EDOVER 18:12 → HO.IMC 19:29 → HO.S3 06-16 18:37
PROVIDERS: Internal Medicine; Admitting Provider Hospitalist; Emergency Provider Emergency Medicine; PCP Registered Nurse; Visit Provider Student in an Organized Health Care Education/Training Program
DX: A41.9 Sepsis, unspecified organism (principal); L89.313 Pressure ulcer of right buttock, stage 3; N17.9 Acute kidney failure, unspecified; N12 Tubulo-interstitial nephritis, not specified as acute or chronic; C34.90 Malignant neoplasm of unspecified part of unspecified bronchus or lung; R65.20 Severe sepsis without septic shock; L89.152 Pressure ulcer of sacral region, stage 2; I12.9 Hypertensive chronic kidney disease with stage 1 through stage 4 chronic kidney disease, or unspecified chronic kidney disease; Z66 Do not resuscitate; Z51.5 Encounter for palliative care; N40.1 Benign prostatic hyperplasia with lower urinary tract symptoms; K86.89 Other specified diseases of pancreas; R33.8 Other retention of urine; N18.31 Chronic kidney disease, stage 3a; E11.22 Type 2 diabetes mellitus with diabetic chronic kidney disease; E87.5 Hyperkalemia; E83.42 Hypomagnesemia; G20.C Parkinsonism, unspecified; D63.0 Anemia in neoplastic disease; D63.1 Anemia in chronic kidney disease; E11.649 Type 2 diabetes mellitus with hypoglycemia without coma
CPT/HCPCS: 36415; 71045; 74176; 80048; 80202; 81001; 82247; 82565; 82803; 82947; 83605; 84132; 85007; 85027; 85610; 87040; 87077; 87086; 87186; 87205; 92610; 93005; 94640; 99285; J0131; J0613; J0696; J0878; J1171; J1938; J2543; J3360; J3374; J7120

== ENCOUNTER → 2025-06-15 11:27 | Outpatient (BNV) | payer OTHER, SELFPAY | PROVIDERS: Emergency Provider Emergency Medicine; Visit Provider Radiology Diagnostic Radiology | DX: N13.2 Hydronephrosis with renal and ureteral calculous obstruction (principal); I25.84 Coronary atherosclerosis due to calcified coronary lesion; J98.11 Atelectasis; A41.9 Sepsis, unspecified organism | CPT/HCPCS: 71045; 74176 ==

== ENCOUNTER → 2025-06-15 13:35 | Outpatient (BNV) | payer OTHER, SELFPAY | PROVIDERS: Admitting Provider Hospitalist; Emergency Provider Emergency Medicine; PCP Registered Nurse; Visit Provider Internal Medicine | DX: R00.0 Tachycardia, unspecified (principal); I45.10 Unspecified right bundle-branch block | CPT/HCPCS: 93010 ==

== ENCOUNTER → 2025-06-15 17:50 | Outpatient (BNV) | payer OTHER, SELFPAY | PROVIDERS: Admitting Provider Hospitalist; Emergency Provider Emergency Medicine; PCP Registered Nurse; Visit Provider Hospitalist | DX: C34.90 Malignant neoplasm of unspecified part of unspecified bronchus or lung (principal); D49.9 Neoplasm of unspecified behavior of unspecified site; D84.81 Immunodeficiency due to conditions classified elsewhere; T83.511A Infection and inflammatory reaction due to indwelling urethral catheter, initial encounter; N39.0 Urinary tract infection, site not specified | CPT/HCPCS: 99233 ==

== ENCOUNTER 2025-06-18 12:37 | Inpatient (IN) | payer OTHER, SELFPAY ==
--- NOTE | 2025-06-18 11:49 | PM.IMHP ---
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 He is not a candidate for further disease-modifying therapy (chemotherapy, dialysis) due to poor functional status, refractory infections, and limited physiologic reserve. His overall prognosis is extremely poor, with high short-term mortality risk and significant morbidity, justifying transition to comfort measures only (METAL COATER) and hospice care. During this hospitalization on 06/15/2025 he presents with worsening weakness somnolence and was noted to have bacteremia and after careful discussion with the family, patient was transitioned to METAL COATER on 06/16/2025 with the entire family both the healthcare proxy he is and he is being readmitted under [facility] hospice on 06/18/2025. Plan: METAL COATER orders with Valium and Dilaudid drip per METAL COATER orders and prn Scopolamine patch Causes of would be- Advanced SCLL , Multiorgan failure due to recurrent bactremia , Adult failure to thrive Review of Systems Review of Systems: Yes Unobtainable due to mental condition, Unobtainable due to mental status and Other (METAL COATER) [facility] Medical History Syncope and collapse 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) HLD (hyperlipidemia) GERD (gastroesophageal reflux disease) Exocrine pancreatic insufficiency Abdominal bloating Renal cyst Loose stools History of revision of total replacement of right knee joint Lung mass High cholesterol Anemia Pleural hemorrhage Diverticulosis Hyponatremia Acute hyponatremia Colon cancer screening Erectile dysfunction Gastritis COVID-19 virus infection Hydrocele Cataract Hypercholesteremia Diabetes BPH (benign prostatic hyperplasia) Hypertension Family History Father Diabetes Mother Diabetes Uterus cancer Mother Cancer Surgical History History of bilateral knee replacement Visit for wound check S/P chest tube placement Hx of colonoscopy History of prostate surgery Social History Household Members: Spouse Housing: Apartment Housing Other:: Pt lives in senior housing Are you a primary nurse care manager to a significant other at home: No Do you presently have visiting nurse or other home services: Yes (JUNIOR SALES REPRESENTATIVE everyday) Alcohol intake: never Comment: camera placed as pt is impulsive, attempts to get OOB. Hx falls recently Patient Tobacco Use Status: Never used Tobacco Advance Directives: Yes Advance Directives on File: Yes Advance Directives Date on File: 04/06/25 service: No Current occupational status: retired Current occupation: right handed Gender identity: Male Meds Allergies Allergy/AdvReac Type Severity Reaction Status Date / Time vancomycin Allergy Intermediate Redness of Verified 06/15/25 11:18 Skin metformin AdvReac 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 Verified 06/16/25 09:53 Home Medications ?Medication ?Instructions ?Recorded ?Confirmed ?Last Taken ?Type atorvastatin 10 mg tablet 10 mg PO DAILY 05/08/20 06/15/25 06/14/25 History blood sugar diagnostic #10 ea 10/04/20 05/04/25 Unknown History lancets 33 gauge #100 ea 10/04/20 05/04/25 Unknown History metformin 1,000 mg tablet 1,000 mg PO BID 10/04/20 06/15/25 06/14/25 History multivitamin 1 tab PO DAILY@1700 10/04/20 06/15/25 06/14/25 History agscsl-bauubmlg-occeus(pork)24,000-76,000-120,000 2 cap PO TIDWM 04/22/25 06/15/25 06/14/25 History unit capsule,del rel (Creon) mirtazapine 7.5 mg tablet 7.5 mg PO BEDTIME 04/22/25 06/15/25 06/14/25 History sitagliptin phosphate 25 mg tablet 25 mg PO DAILY 04/22/25 06/15/25 06/14/25 History (Januvia) tamsulosin 0.4 mg capsule 0.4 mg PO DAILY 05/14/25 06/15/25 06/14/25 History acetaminophen 500 mg tablet 500 mg PO TID PRN Pain 06/15/25 06/15/25 Unknown History carbidopa 25 mg-levodopa 100 mg 1 tab PO DAILY 06/15/25 06/15/25 06/14/25 History tablet dabrafenib 75 mg capsule (Tafinlar) 150 mg PO BID 06/15/25 06/15/25 06/14/25 History famotidine 20 mg tablet 20 mg PO DAILY 06/15/25 06/15/25 Unknown History sennosides 8.6 mg tablet (senna) 8.6 mg PO DAILY PRN Constipation 06/15/25 06/15/25 Unknown History Physical Exam Vital Signs and Narrative: Appears comfortable Not in distress Assessment and Plan (1) End of life care: Status: Acute This 80-year-old male with 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 He is not a candidate for further disease-modifying therapy (chemotherapy, dialysis) due to poor functional status, refractory infections, and limited physiologic reserve. His overall prognosis is extremely poor, with high short-term mortality risk and significant morbidity, justifying transition to comfort measures only (METAL COATER) and hospice care. During this hospitalization on 06/15/2025 he presents with worsening weakness somnolence and was noted to have bacteremia and after careful discussion with the family, patient was transitioned to METAL COATER on 06/16/2025 with the entire family both the healthcare proxy he is and he is being readmitted under [facility] hospice on 06/18/2025. Plan: METAL COATER orders with Valium and Dilaudid drip per METAL COATER orders and prn Scopolamine patch Causes of would be- Advanced SCLL , Multiorgan failure due to recurrent bactremia , Adult failure to thrive Quality Stroke Does the patient have a stroke diagnosis?: No VTE Prior VTE?: No VTE Risk Level:: Medical - moderate - high VTE Device Contraindication: Treatment Not Indicated VTE Drug Contraindication: Treatment Not Indicated
[2025-06-18] MEDS: HYDROmorphone HCl/NS 10 MG/50 ML PIGGYBACK 2 MG IV (13:45)
--- NOTE | 2025-06-18 14:15 | MHC.CM.PN ---
Patient is now GIP hospice. /daughter at bedside.
[2025-06-18 14:31] VITALS: BMI 19.1
--- NOTE | 2025-06-18 14:40 | PHA.MEDREC ---
Pharmacy Consult ? Medication Reconciliation Pharmacy has completed the medication reconciliation. New account created for DIAL MARKER from account [id number]
--- NOTE | 2025-06-18 16:04 | HO.WOUND ---
Wound Consult: Initial 80yr old?male admitted to [facility] on 06/15/25 - See progress notes and H&P for detailed history.? Patient recent transition to NATIONAL INVESTIGATIVE PRODUCER status however concern for coccyx wound therefore wound consult placed.? Discussed with direct care team - patient resting comfortably in bed - foam dressing in place to coccyx and patient is comfortable. Given current dressing in place to aid in comfort and protection skin not assessed. Recommend continue with topical foam dressing to maintain patient comfort and dignity. Recommendations: 1. Turn and Reposition every 2 hours and as needed for patient comfort.? Use pillows or wedges to support off loading positions. 2. Off Load all bony prominences with use of pillows and heel boots if needed.? Apply foams where needed. ? 3. Monitor for incontinence and moisture control, use barrier creams when needed for treatment. Coccyx / Sacrum - Off Load Pressure with Q2 hr turns and use of pillows - Routine cleansing.? Apply skin prep allow to dry.? Cover with foam dressing to aid in off loading and protection from friction. Change every 3 days and PRN. All topical care should focus on comfort and dignity. Re-consult wound care Nurse for wound deterioration or wound changes.
--- NOTE | 2025-06-18 16:11 | MHC.CLN ---
NUTRITION PATIENT ADMITTED TO [facility]. RD AVAILABLE NEEDED.
--- OUTSIDE RECORDS SUMMARY | 2025-06-18 16:38 | XMS_ITS | Encounter Summary ---
Author Organization [facility] Address [address] [place] [address] Phone Care Team Providers Care Optical Manufacturing Technician Name Role Phone Name, Navjot RIBERA Primary Care Provider [phone] [place] BendAbbi robb Primary Care Provider [phone] Encounter Details Date Type Department Care Team (Late st Contact Info) Description 05/21/2025 Lab Requisition [facility] Lab Main [address] [place], [place] [id number] Dee Dee Geronimo MD [address] [place] [phone] [email or web address] Illness, unspecified Social History Tobacco Use Types [...] 4.00 - 11.00 K/uL 05/21/2025 3:33 PM [facility] RBC 4.49(L) 4.50 - 5.90 M/uL 05/21/2025 3:33 PM [facility] Hemoglobin 12.7(L) 13.5 - 17.5 g/dL 05/21/2025 3:33 PM [facility] Hematocrit 39.2(L) 41.0 - 53.0 % 05/21/2025 3:33 PM [facility] MCV 87.3 80.0 - 100.0 fL 05/21/2025 3:33 PM [facility] MCH 28.3 27.0 - 31.0 pg 05/21/2025 3:33 PM [facility] MCHC 32.4 32.0 - 36.0 g/dL 05/21/2025 3:33 PM [facility] PLT 385 150 - 450 K/uL 05/21/2025 3:33 PM [facility] MPV 9.2 8.4 - 12.0 fL 05/21/2025 3:33 PM [facility] RDW-CV 13.9 11.5 - 14.5 % 05/21/2025 3:33 PM [facility] Absolute NRBC 0.00 <=0.00 K cells/uL 05/21/2025 3:33 PM [facility] NRBC 0.0 <=0.0 /100 WBCs 05/21/2025 3:33 PM [facility] Blood (Blood) 05/21/2025 11: 42 AM EST 05/21/2025 12:43 PM EST us Dee Dee Geronimo MD LAB BLOOD BKR ORDERABLES Final Result [facility] [address] [place] [address] * (ABNORMAL) Comprehensive Metabolic Panel (CMP) (05/21/2025 11:42 AM EST) Sodium 132(L) 136 - 145 mmol/L 05/21/2025 5:20 PM [facility] Potassium 4.7 3.4 - 5.1 mmol/L 05/21/2025 5:20 PM [facility] Chloride 95(L) 98 - 107 mmol/L 05/21/2025 5:20 PM [facility] CO2 25 20 - 31 mmol/L 05/21/2025 5:20 PM [facility] Anion Gap 12 3 - 17 mmol/L 05/21/2025 5:20 PM [facility] BUN 20 6 - 23 mg/dL 05/21/2025 5:20 PM [facility] Creatinine 0.60 0.60 - 1.30 mg/dL 05/21/2025 5:20 PM [facility] eGFR 99 >59 mL/min/1.7 3m2 05/21/2025 5:20 PM [facility] Comment:Estimated glomerular filtration rate calculated using the CKD-EPI refit equation. Glucose 127(H) 70 - 99 mg/dL 05/21/2025 5:20 PM [facility] Calcium 10.1 8.5 - 10.5 mg/dL 05/21/2025 5:20 PM [facility] AST 18 <40 U/L 05/21/2025 5:20 PM [facility] ALT 15 <50 U/L 05/21/2025 5:20 PM [facility] Alkaline Phosphatase 115 40 - 130 U/L 05/21/2025 5:20 PM [facility] Bilirubin, Total 0.4 0.0 - 1.2 mg/dL 05/21/2025 5:20 PM [facility] Total Protein 7.1 6.4 - 8.3 g/dL 05/21/2025 5:20 PM [facility] Albumin 4.1 3.5 - 5.2 g/dL 05/21/2025 5:20 PM [facility] Globulin 3.0 1.9 - 4.1 g/dL 05/21/2025 5:20 PM [facility] Blood (Blood) 05/21/2025 11: 42 AM EST 05/21/2025 12:43 PM EST us Dee Dee Geronimo MD LAB BLOOD BKR ORDERABLES Final Result [facility] [address] [place] [address] documented in this encounter Visit Diagnoses Diagnosis Illness, unspecified documented in this encounter Additional Health Concerns Infection Onset Date Last Indicated Resolved Time Resp-Risk Comment:Per note documentation 05/24/2025 05/24/2025 9:58 AM EST Resp-Risk 05/25/2025 05/25/2025 06/05/2025 7:06 PM EST documented as of this encounter Care Teams Optical Manufacturing Technician Relationship Specialty Start Date End Date Name, MD Navjot [address] [place] [id number] PCP - General 05/18/25 05/23/25 [place]bi FNP [address] [place] [address] PCP - General Nurse Practitioner 05/24/25 documented as of this encounter Additional Source Comments The information contained in this document represents components of the legal health record. It is not the complete legal health record.[facility]
--- OUTSIDE RECORDS SUMMARY | 2025-06-18 16:38 | XMS_ITS | Encounter Summary ---
Author Organization [facility] Address [address] [place] [address] Phone Care Team Providers Care Legislative Aide Name Role Phone Abbi Saha MANAGER OF APPLICATIONS DEVELOPMENT Primary Care Provider [phone] Encounter Details Date Type Department Care Team (Late st Contact Info) Description 05/29/2025 Lab Requisition [facility] Lab Main [address] [place] [address] Dee Dee Geronimo MD [address] [place] [phone] [email or web address] Illness, unspecified Social History Tobacco Use Types [...] 4.00 - 11.00 K/uL 05/29/2025 10:54 AM [facility] RBC 3.59(L) 4.50 - 5.90 M/uL 05/29/2025 10:54 AM [facility] Hemoglobin 10.0(L) 13.5 - 17.5 g/dL 05/29/2025 10:54 AM [facility] Hematocrit 30.0(L) 41.0 - 53.0 % 05/29/2025 10:54 AM [facility] MCV 83.6 80.0 - 100.0 fL 05/29/2025 10:54 AM [facility] MCH 27.9 27.0 - 31.0 pg 05/29/2025 10:54 AM [facility] MCHC 33.3 32.0 - 36.0 g/dL 05/29/2025 10:54 AM [facility] PLT 290 150 - 450 K/uL 05/29/2025 10:54 AM [facility] MPV 8.9 8.4 - 12.0 fL 05/29/2025 10:54 AM [facility] RDW-CV 13.9 11.5 - 14.5 % 05/29/2025 10:54 AM [facility] Absolute NRBC 0.00 <=0.00 K cells/uL 05/29/2025 10:54 AM [facility] NRBC 0.0 <=0.0 /100 WBCs 05/29/2025 10:54 AM [facility] Blood (Blood) 05/29/2025 8:0 5 AM EST 05/29/2025 9:45 AM EST us Dee Dee Geronimo MD LAB BLOOD BKR ORDERABLES Final Result Performing Organization Address City/State/[facility] Co de Phone Number [address] [phone] * (ABNORMAL) Comprehensive Metabolic Panel (CMP) (05/29/2025 8:05 AM EST) Sodium 131(L) 136 - 145 mmol/L 05/29/2025 12:40 PM [facility] Potassium 4.2 3.4 - 5.1 mmol/L 05/29/2025 12:40 PM [facility] Chloride 98 98 - 107 mmol/L 05/29/2025 12:40 PM [facility] CO2 22 20 - 31 mmol/L 05/29/2025 12:40 PM [facility] Anion Gap 11 3 - 17 mmol/L 05/29/2025 12:40 PM [facility] BUN 11 6 - 23 mg/dL 05/29/2025 12:40 PM [facility] Creatinine 0.50(L) 0.60 - 1.30 mg/dL 05/29/2025 12:40 PM [facility] eGFR 104 >59 mL/min/1.7 3m2 05/29/2025 12:40 PM [facility] Comment:Estimated glomerular filtration rate calculated using the CKD-EPI refit equation. Glucose 105(H) 70 - 99 mg/dL 05/29/2025 12:40 PM [facility] Calcium 8.7 8.5 - 10.5 mg/dL 05/29/2025 12:40 PM [facility] AST 20 <40 U/L 05/29/2025 12:40 PM [facility] ALT 13 <50 U/L 05/29/2025 12:40 PM [facility] Alkaline Phosphatase 96 40 - 130 U/L 05/29/2025 12:40 PM [facility] Bilirubin, Total 0.4 0.0 - 1.2 mg/dL 05/29/2025 12:40 PM [facility] Total Protein 6.0(L) 6.4 - 8.3 g/dL 05/29/2025 12:40 PM [facility] Albumin 3.4(L) 3.5 - 5.2 g/dL 05/29/2025 12:40 PM [facility] Globulin 2.6 1.9 - 4.1 g/dL 05/29/2025 12:40 PM [facility] Blood (Blood) 05/29/2025 8:0 5 AM EST 05/29/2025 9:45 AM EST us Dee Dee Geronimo MD LAB BLOOD BKR ORDERABLES Final Result [facility] [address] [place] [address] documented in this encounter Visit Diagnoses Diagnosis Illness, unspecified documented in this encounter Additional Health Concerns Infection Onset Date Last Indicated Resolved Time Resp-Risk 05/25/2025 05/25/2025 06/05/2025 7:06 PM EST documented as of this encounter Care Teams Legislative Aide Relationship Specialty Start Date End Date Abbi Shaa FNP [address] [place] [phone] PCP - General Nurse Practitioner 05/24/25 documented as of this encounter Additional Source Comments The information contained in this document represents components of the legal health record. It is not the complete legal health record.[facility]
--- OUTSIDE RECORDS SUMMARY | 2025-06-18 16:38 | XMS_ITS | Encounter Summary ---
Author Organization [facility] Address [address] [place] [address] Phone Care Team Providers Care Unhairing Machine Operator Name Role Phone Abbi Saha ROB Primary Care Provider [phone] Encounter Details Date Type Department Care Team (Late st Contact Info) Description 05/25/2025 Procedure Pass [facility], Ct Scan - [facility] [address] [place] [address] Social History Tobacco Use Types [...] 05/25/2025 3:15 AM Jillian Mayen RN * [place] Suicide Severity Rating Scale (Screener/Recent Self-Report) Question [...] documented as of this encounter Care Teams Unhairing Machine Operator Relationship Specialty Start Date End Date Abbi SahaROB [address] [place] [address] PCP - General Nurse Practitioner 05/24/25 documented as of this encounter Additional Source Comments The information contained in this document represents components of the legal health record. It is not the complete legal health record.[facility]
--- OUTSIDE RECORDS SUMMARY | 2025-06-18 16:38 | XMS_ITS | Encounter Summary ---
Author Organization [facility] Address [address] [place] [address] Phone Care Team Providers Care Administrative Underwriter Name Role Phone Name, Navjot RIBERA Primary Care Provider [phone] BicknellAbbi robb Primary Care Provider [phone] Encounter Details Date Type Department Care Team (Late st Contact Info) Description 05/23/2025 Lab Requisition [facility] Main [address] [place], [place] [id number] Dee Dee Geronimo MD [address] [place] [id number] [email or web address] Elevated white blood cell count, unspecified Social [...] 05/25/2025 3:15 AM Jillian Mayen RN * [place] Suicide Severity Rating Scale (Screener/Recent Self-Report) Question [...] Color Yellow Yellow 05/23/2025 5:29 PM EST [facility] Clarity Clear Clear 05/23/2025 5:29 PM EST [facility] Glucose Negative Negative 05/23/2025 5:29 PM EST [facility] Bilirubin Urine Negative Negative 5:29 PM EST [facility] Ketone Urine Negative Negative 05/23/2025 5:29 PM EST [facility] Specific [place] 1.025 1.001 - 1.035 05/23/2025 5:29 PM EST [facility] Blood Negative Negative 05/23/2025 5:29 PM EST [facility] pH 6.0 5.0 - 8.0 05/23/2025 5:29 PM EST [facility] Protein Negative Negative 05/23/2025 5:29 PM EST [facility] Nitrites Negative Negative 05/23/2025 5:29 PM [facility] Leukocyte Esterase Negative Negative 05/23/2025 5:29 PM [facility] Urobilinogen Negative Negative 05/23/2025 5:29 PM [facility] Urine (Urine, Voided) 05/23/2025 11:20 AM EST 05/23/2025 4:59 PM EST us Dee Dee Geronimo MD LAB URINE ORDERABLES Final Res ult [address] [address] * Urine Culture (05/23/2025 11:20 AM EST) Urine Culture/Test No growth 05/25/2025 11:50 AM EST [facility] Urine (Urine, Voided) 05/23/2025 11:20 AM EST 05/23/2025 4:59 PM EST Dee Dee Geronimo MD LAB MICROBIOLOGY CULTURE ORDER RUFINA Final Result [facility] [address] [place] [address] documented in this encounter Visit Diagnoses Diagnosis Elevated white blood cell count, unspecified documented in this encounter Additional Health Concerns Infection Onset Date Last Indicated Resolved Time Resp-Risk Comment:Per note documentation 05/24/2025 05/24/2025 9:58 AM EST Resp-Risk 05/25/2025 05/25/2025 06/05/2025 7:06 PM EST documented as of this encounter Care Teams Administrative Underwriter Relationship Specialty Start Date End Date Name, MD Navjot [address] [place] [address] PCP - General 05/18/25 05/23/25 BicknellAbbi FNP [address] [place] [address] PCP - General Nurse Practitioner 05/24/25 documented as of this encounter Additional Source Comments The information contained in this document represents components of the legal health record. It is not the complete legal health record.[facility]
--- OUTSIDE RECORDS SUMMARY | 2025-06-18 16:38 | XMS_ITS | Encounter Summary ---
Author Organization [facility] Address [address] [place] [address] Phone Care Team Providers Care Controlled Atmospheric Furnace Brazer Name Role Phone Abbi Saha CONCRETE FORM SETTER Primary Care Provider [phone] Encounter Details Date Type Department Care Team (Latest Contact Info) Description 06/04/2025 Lab Requisition [facility] Main [address] [place] [address] Dee Dee Geronimo MD [address] [place] [phone] [email or web address] Hypo-osmolality and hyponatremia; Syndrome of inappropriate secretion [...] 4.00 - 11.00 K/uL 06/04/2025 10:13 AM [facility] RBC 3.57(L) 4.50 - 5.90 M/uL 06/04/2025 10:13 AM [facility] Hemoglobin 10.0(L) 13.5 - 17.5 g/dL 06/04/2025 10:13 AM [facility] Hematocrit 29.8(L) 41.0 - 53.0 % 06/04/2025 10:13 AM [facility] MCV 83.5 80.0 - 100.0 fL 06/04/2025 10:13 AM [facility] MCH 28.0 27.0 - 31.0 pg 06/04/2025 10:13 AM [facility] MCHC 33.6 32.0 - 36.0 g/dL 06/04/2025 10:13 AM [facility] PLT 317 150 - 450 K/uL 06/04/2025 10:13 AM [facility] MPV 8.5 8.4 - 12.0 fL 06/04/2025 10:13 AM [facility] RDW-CV 14.8(H) 11.5 - 14.5 % 06/04/2025 10:13 AM [facility] Absolute NRBC 0.00 <=0.00 K cells/uL 06/04/2025 10:13 AM [facility] NRBC 0.0 <=0.0 /100 WBCs 06/04/2025 10:13 AM [facility] Blood (Blood) 06/04/2025 6:1 0 AM EST 06/04/2025 7:27 AM EST us Dee Dee Geronimo MD LAB BLOOD BKR ORDERABLES Final Result [facility] [address] [place], [place] [id number] * (ABNORMAL) Magnesium (06/04/2025 6:10 AM EST) Magnesium 1.0(L) 1.7 - 2.6 mg/dL 06/04/2025 11:24 AM [facility] Blood (Blood) 06/04/2025 6:1 0 AM EST 06/04/2025 7:27 AM EST us Dee Dee Geronimo MD LAB BLOOD BKR ORDERABLES Final Result [facility] [address] [place] [address] * (ABNORMAL) Comprehensive Metabolic Panel (CMP) (06/04/2025 6:10 AM EST) Sodium 128(L) 136 - 145 mmol/L 06/04/2025 11:24 AM [facility] Potassium 4.3 3.4 - 5.1 mmol/L 06/04/2025 11:24 AM [facility] Chloride 95(L) 98 - 107 mmol/L 06/04/2025 11:24 AM [facility] CO2 21 20 - 31 mmol/L 06/04/2025 11:24 AM [facility] Anion Gap 12 3 - 17 mmol/L 06/04/2025 11:24 AM [facility] BUN 14 6 - 23 mg/dL 06/04/2025 11:24 AM [facility] Creatinine 0.60 0.60 - 1.30 mg/dL 06/04/2025 11:24 AM [facility] eGFR 98 >59 mL/min/1.7 3m2 06/04/2025 11:24 AM [facility] Comment:Estimated glomerular filtration rate calculated using the CKD-EPI refit equation. Glucose 100(H) 70 - 99 mg/dL 06/04/2025 11:24 AM [facility] Calcium 9.0 8.5 - 10.5 mg/dL 06/04/2025 11:24 AM [facility] AST 15 <40 U/L 06/04/2025 11:24 AM [facility] ALT 12 <50 U/L 06/04/2025 11:24 AM [facility] Alkaline Phosphatase 115 40 - 130 U/L 06/04/2025 11:24 AM [facility] Bilirubin, Total 0.3 0.0 - 1.2 mg/dL 06/04/2025 11:24 AM EST [facility] Total Protein 5.9(L) 6.4 - 8.3 g/dL 06/04/2025 11:24 AM EST [facility] Albumin 3.4(L) 3.5 - 5.2 g/dL 06/04/2025 11:24 AM EST [facility] Globulin 2.5 1.9 - 4.1 g/dL 06/04/2025 11:24 AM EST [facility] Blood (Blood) 06/04/2025 6:1 0 AM EST 06/04/2025 7:27 AM EST us Dee Dee Geronimo MD LAB BLOOD BKR ORDERABLES Final Result Performing Organization Address City/State/[facility] Co de Phone Number [address] [address] documented in this encounter Visit Diagnoses Diagnosis Hypo-osmolality and hyponatremia 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 It is not the complete legal health record.[facility]
--- OUTSIDE RECORDS SUMMARY | 2025-06-18 16:38 | XMS_ITS | Encounter Summary ---
Author Organization [facility] Address [address] [place] [address] Phone Care Team Providers Care Ivory Polisher Name Role Phone Name, Navjot RIBERA Primary Care Provider [phone] [place]Abbi robb Primary Care Provider [phone] Encounter Details Date Type Department Care Team (Latest Contact Info) Description 05/23/2025 Lab Requisition [facility] Main [address] [place], [place] [id number] Dee Dee Geronimo MD [address] [place] [address] [phone] [email or web address] Sepsis, unspecified organism; Type 2 diabetes mellitus [...] 05/25/2025 3:15 AM Jillian Mayen RN * [place] Suicide Severity Rating Scale (Screener/Recent Self-Report) Question [...] 4.00 - 11.00 K/uL 05/23/2025 8:32 PM [facility] RBC 4.01(L) 4.50 - 5.90 M/uL 05/23/2025 8:32 PM [facility] Hemoglobin 11.4(L) 13.5 - 17.5 g/dL 05/23/2025 8:32 PM [facility] Hematocrit 33.7(L) 41.0 - 53.0 % 05/23/2025 8:32 PM [facility] MCV 84.0 80.0 - 100.0 fL 05/23/2025 8:32 PM [facility] MCH 28.4 27.0 - 31.0 pg 05/23/2025 8:32 PM [facility] MCHC 33.8 32.0 - 36.0 g/dL 05/23/2025 8:32 PM [facility] MPV 8.4 8.4 - 12.0 fL 05/23/2025 8:32 PM [facility] RDW-CV 14.1 11.5 - 14.5 % 05/23/2025 8:32 PM [facility] PLT 311 150 - 450 K/uL 05/23/2025 8:32 PM [facility] Neutrophils 66.7 % 05/23/2025 8:32 PM [facility] Lymphocytes 12.8 % 05/23/2025 8:32 PM [facility] Monocytes 17.7 % 05/23/2025 8:32 PM [facility] Eosinophils 0.6 % 05/23/2025 8:32 PM [facility] Basophils 0.5 % 05/23/2025 8:32 PM [facility] Imm Grans 1.7 % 05/23/2025 8:32 PM [facility] NRBC 0.0 <=0.0 /100 WBCs 05/23/2025 8:32 PM [facility] Absolute Neutrophils 7.39 1.92 - 7.60 K/uL 05/23/2025 8:32 PM [facility] Absolute Lymphocytes 1.42 0.72 - 4.10 K/uL 05/23/2025 8:32 PM [facility] Absolute Monocytes 1.96(H) 0.16 - 1.10 K/uL 05/23/2025 8:32 PM [facility] Absolute Eosinophils 0.07 0.00 - 0.50 K/uL 05/23/2025 8:32 PM [facility] Absolute Basophils 0.06 0.00 - 0.15 K/uL 05/23/2025 8:32 PM [facility] Absolute Imm Grans 0.19(H) 0.00 - 0.09 K/uL 05/23/2025 8:32 PM [facility] Absolute NRBC 0.00 <=0.00 K cells/uL 05/23/2025 8:32 PM [facility] Absolute Neutrophils 7.39 1.92 - 7.60 K/uL 05/23/2025 8:32 PM [facility] Comment:Automated cell count . Manual ANC may differ if performed. Diff Type Auto 05/23/2025 8:32 PM [facility] Blood (Blood) 05/23/2025 8:2 2 PM EST 05/23/2025 8:25 PM EST us Dee Dee Geronimo MD LAB BLOOD BKR ORDERABLES Final Result [facility] [address] [place] [address] * (ABNORMAL) Basic Metabolic Panel (BMP) (05/23/2025 8:22 PM EST) Sodium 125(L) 136 - 145 mmol/L 05/23/2025 9:43 PM [facility] Potassium 4.1 3.4 - 5.1 mmol/L 05/23/2025 9:43 PM [facility] Chloride 91(L) 98 - 107 mmol/L 05/23/2025 9:43 PM [facility] CO2 19(L) 20 - 31 mmol/L 05/23/2025 9:43 PM [facility] Anion Gap 15 3 - 17 mmol/L 05/23/2025 9:43 PM [facility] BUN 23 6 - 23 mg/dL 05/23/2025 9:43 PM [facility] Creatinine 0.80 0.60 - 1.30 mg/dL 05/23/2025 9:43 PM [facility] eGFR 91 >59 mL/min/1.7 3m2 05/23/2025 9:43 PM [facility] Comment:Estimated glomerular filtration rate calculated using the CKD-EPI refit equation. Glucose 156(H) 70 - 99 mg/dL 05/23/2025 9:43 PM [facility] Calcium 8.9 8.5 - 10.5 mg/dL 05/23/2025 9:43 PM [facility] Blood (Blood) 05/23/2025 8:2 2 PM EST 05/23/2025 8:25 PM EST Dee Dee Geronimo MD LAB BLOOD BKR ORDERABLES Final Result Performing Organization Address City/State/[facility] Co de Phone Number [address] [address] documented in this encounter Visit Diagnoses Diagnosis Sepsis, unspecified organism Type 2 diabetes mellitus without complications documented in this encounter Additional Health Concerns Infection Onset Date Last Indicated Resolved Time Resp-Risk Comment:Per note documentation 05/24/2025 05/24/2025 9:58 AM EST Resp-Risk 05/25/2025 05/25/2025 06/05/2025 7:06 PM EST documented as of this encounter Care Teams Ivory Polisher Relationship Specialty Start Date End Date Name, Navjot, MD [address] [place] [address] PCP - General 05/18/25 05/23/25 [place]burgAbbi FNP [address] [place] [address] PCP - General Nurse Practitioner 05/24/25 documented as of this encounter Additional Source Comments The information contained in this document represents components of the legal health record. It is not the complete legal health record.[facility]
--- OUTSIDE RECORDS SUMMARY | 2025-06-18 16:38 | XMS_ITS | Encounter Summary ---
Author Organization [facility] Address [address] [place] [address] Phone Care Team Providers Care Education Program Manager Name Role Phone Abbi Saha ROB Primary Care Provider [phone] Encounter Details Date Type Department Care Team (Late st Contact Info) Description 05/25/2025 Procedure Pass [facility], [facility] [address] [place] [address] Social History Tobacco Use Types [...] 05/25/2025 3:15 AM Jillian Mayen RN * [place] Suicide Severity Rating Scale (Screener/Recent Self-Report) Question [...] documented as of this encounter Care Teams Education Program Manager Relationship Specialty Start Date End Date Abbi SahaROB [address] [place] [phone] PCP - General Nurse Practitioner 05/24/25 documented as of this encounter Additional Source Comments The information contained in this document represents components of the legal health record. It is not the complete legal health record.[facility]
--- OUTSIDE RECORDS SUMMARY | 2025-06-18 16:38 | XMS_ITS | Encounter Summary ---
Author Organization [facility] Address [address] [place] [address] Phone Care Team Providers Care Literacy Coordinator Name Role Phone Abbi Saha ROB Primary Care Provider [phone] Encounter Details Date Type Department Care Team (Late st Contact Info) Description 05/24/2025 Procedure Pass [facility], Ct Scan - [facility] [address] [place] [address] Social History Tobacco Use Types [...] 05/25/2025 3:15 AM Jillian Mayen RN * [place] Suicide Severity Rating Scale (Screener/Recent Self-Report) Question [...] documented as of this encounter Care Teams Literacy Coordinator Relationship Specialty Start Date End Date Abbi SahaROB [address] [place] [address] PCP - General Nurse Practitioner 05/24/25 documented as of this encounter Additional Source Comments The information contained in this document represents components of the legal health record. It is not the complete legal health record.[facility]
--- OUTSIDE RECORDS SUMMARY | 2025-06-18 16:38 | XMS_ITS | Clinical Summary ---
Author Organization [facility] Address [address] [place] [address] Phone Care Team Providers Care Sand Conditioner Name Role Phone Abbi Saha ROB Primary Care Provider [phone] Allergies Active Allergy Reactions Criticality Noted Date [...] have further contributed to nonosmotic stimulation of [employer] release associated with pain discomfort sympathetic activation [...] on 05/21 however repeat check at the assisted 05/23 revealed sodium 125. He was given [...] on 05/21 however repeat check at the assisted 05/23 revealed sodium 125. He was given [...] on 05/21 however repeat check at the assisted 05/23 revealed sodium 125. He was given [...] have further contributed to nonosmotic stimulation of [employer] release associated with pain discomfort sympathetic activation [...] on 05/21 however repeat check at the assisted 05/23 revealed sodium 125. He was given [...] and variable tx. Type 2 diabetes mellitus, [facility] long-term current use of insulin 05/25/2025 Assessment & Plan (05/28/2025 9:27 AM EST): Assessment & Plan (05/27/2025 3:20 PM EST): Patient was recently begun on Jardiance and continued on metformin at his assisted. Oral meds held on admission. Blood sugars moderately well-controlled - Monitor with POC AC and at bedtime and lispro sliding scale coverage -carbohydrate consistent diet. Assessment & Plan (05/26/2025 1:14 PM EST): Patient was recently begun on Jardiance and continued on metformin at his assisted. Oral meds held on admission. Blood sugars moderately well-controlled - Monitor with POC AC and at bedtime and lispro sliding scale coverage -Patient now awake and alert start carbohydrate consistent diet. Assessment & Plan (05/26/2025 11:51 AM EST): Assessment & Plan (05/25/2025 5:46 PM EST): Patient was recently begun on Jardiance and continued on metformin at his assisted. Oral meds held on admission. Blood sugars moderately well-controlled - Monitor with POC AC and at bedtime and lispro sliding scale coverage -Patient now awake and alert start carbohydrate consistent diet. Assessment & Plan (05/25/2025 8:10 AM EST): Assessment & Plan (05/25/2025 2:59 AM EST): Patient was recently begun on Jardiance and continued on metformin at his assisted. He is not acidotic hyperglycemic here. We will hold these oral agents for now begin sliding scale insulin with meals Metastatic non-small cell lung cancer 05/25/2025 Assessment & Plan (05/27/2025 3:20 PM EST): On two oral therapies Dabrafenib and trametinib Managed at [facility] Informed in ER of metastatic status, family was unaware. Will hold meds as not available currently. Assessment & Plan (05/26/2025 1:14 PM EST): On two oral therapies Dabrafenib and trametinib Managed at [facility] Informed in ER of metastatic status, family was unaware. Will hold meds as not available currently. Assessment & Plan (05/25/2025 5:46 PM EST): On two oral therapies Dabrafenib and trametinib Managed at [facility] Informed in ER of metastatic status, family was unaware. Will hold meds as not available currently. Assessment & Plan (05/25/2025 2:59 AM EST): On two oral therapies Dabrafenib and trametinib Managed at [facility] Informed in ER of metastatic status, family was unaware. Will hold meds as not available currently. Do not resuscitate status with supporting docume ntation 05/25/2025 Assessment & Plan (05/25/2025 3:02 AM EST): Images from the original note were not included. ER provider had an extensive conversation with the family after disclosing that his cancer was noncurable. 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 Will refer back to oncology team at [facility]. Assessment & Plan (05/25/2025 5:46 PM EST): Few scattered pancreatic hypodensities likely brachial intraductal mucinous neoplasm recommend abdominal MRI/MRCP for further assessment. Will refer back to oncology team at [facility]. Encounters Date Type Department Care Team Description 06/11/2025 Lab Requisition [facility] Lab Main [address] [place] [id number] Dee Dee Geronimo MD Syndrome of inappropriate secretion of antidiuretic hormone; Hydrocele, unspecified; Type 2 diabetes mellitus without complications; Benign prostatic hyperplasia without lower urinary tract symptoms 06/04/2025 Lab Requisition [facility] Lab Main [address] [place] [id number] Dee Dee Geronimo MD Hypo-osmolality and hyponatremia; Syndrome of inappropriate secretion of antidiuretic hormone 05/29/2025 Lab Requisition [facility] Lab Main [address] [place] [address] Dee Dee Geronimo MD Illness, unspecified 05/25/2025 Procedure [facility], [facility] - Main [address] [address] 05/25/2025 Procedure [facility], Ct Scan - [facility] [address] [place] [address] 05/24/2025 9:34 PM EST - 05/28/2025 4:30 PM EST Hospital Encounter [facility] [address] [place] [address] Erica Lagunas MD Savage, Justin G, Citlali Nath MD Albury, Lois C, MD Russo, Margaret A, MD Discharge Disposition: Home or Self Care 05/24/2025 Procedure [facility], Ct Scan [facility] [address] [place] [address] 05/23/2025 Lab Requisition [facility] Lab [address] [address] Dee Dee Geronimo MD Sepsis, unspecified organism; Type 2 diabetes mellitus without complications 05/23/2025 Lab Requisition [facility] Lab [address] [address] Dee Dee Geronimo MD Elevated white blood cell count, unspecified 05/21/2025 Lab Requisition [facility] Lab [address] [address] Dee Dee Geronimo MD Illness, unspecified 05/18/2025 11:32 AM EDT - 05/18/2025 11:59 PM EDT Hospital Encounter [facility] [address] [place] [address] Dee Dee Geronimo MD Discharge Disposition: Home [...] - 145 mmol/L 06/11/2025 10:53 AM EST [facility] Potassium 4.4 3.4 - 5.1 mmol/L 06/11/2025 10:53 AM EST [facility] Chloride 101 98 - 107 mmol/L [...] MD LAB BLOOD BKR ORDERABLES Final Result [facility] [address] [place] [address] * (ABNORMAL) CBC (06/11/2025 6:39 AM EST) [...] MD LAB BLOOD BKR ORDERABLES Final Result [facility] [address] [place], [place] [id number] * (ABNORMAL) Magnesium (06/11/2025 6:39 AM EST) Only the most recent of5 resultswithin the time period is included. Magnesium 1.4(L) 1.7 - 2.6 mg/dL 06/11/2025 10:53 AM [facility] Blood (Blood) 06/11/2025 6: 39 AM EST 06/11/2025 8:16 AM EST Dee Dee Geronimo MD LAB BLOOD BKR ORDERABLES Final Result [facility] [address] [place] [address] * (ABNORMAL) Basic Metabolic Panel (BMP) (05/28/2025 12:29 PM EST) Only the most recent of11 resultswithin the time period is included. Sodium 130(L) 136 - 145 mmol/L 05/28/2025 1:47 PM [facility] Potassium 4.5 3.4 - 5.1 mmol/L 05/28/2025 1:47 PM [facility] Chloride 95(L) 98 - 107 mmol/L 05/28/2025 1:47 PM [facility] CO2 25 20 - 31 mmol/L 05/28/2025 1:47 PM [facility] Anion Gap 10 3 - 17 mmol/L 05/28/2025 1:47 PM [facility] BUN 11 6 - 23 mg/dL 05/28/2025 1:47 PM [facility] Creatinine 0.50(L) 0.60 - 1.30 mg/dL 05/28/2025 1:47 PM [facility] eGFR 104 >59 mL/min/1.7 3m2 05/28/2025 1:47 PM [facility] Comment:Estimated glomerular filtration rate calculated using the CKD-EPI refit equation. Glucose 201(H) 70 - 99 mg/dL 05/28/2025 1:47 PM [facility] Calcium 9.5 8.5 - 10.5 mg/dL 05/28/2025 1:47 PM [facility] Blood (Blood) Venipuncture / Unknown 05/28/2025 12:29 PM EST 05/28/2025 12:34 PM EST Bishnu Lei CNP LAB BLOOD BKR ORDERABLES Final Result Performing Organization Address [facility]/ZIP Co de Phone Number [address] [address] * (ABNORMAL) POCT Glucose (05/28/2025 11:27 AM EST) Only the most recent of17 resultswithin the time period is included. Glucose 242(H) 70 - 99 mg/dL 05/28/2025 11:34 AM [facility] Blood (Blood) 05/28/2025 11: 27 AM EST 05/28/2025 11:34 AM EST Bushra Woods MD LAB POCT DOCKED DEVICE UNSOL ICTED RESULTS Final Result Performing Organization Address [facility]/ZIP Co de Phone Number [address] [address] * (ABNORMAL) CBC and Differential (05/27/2025 7:59 AM EST) Only the most recent of5 resultswithin the time period is included. WBC 4.74 4.00 - 11.00 K/uL 05/27/2025 8:10 AM [facility] RBC 3.90(L) 4.50 - 5.90 M/uL 05/27/2025 8:10 AM [facility] Hemoglobin 11.0(L) 13.5 - 17.5 g/dL 05/27/2025 8:10 AM [facility] Hematocrit 32.2(L) 41.0 - 53.0 % 05/27/2025 8:10 AM [facility] MCV 82.6 80.0 - 100.0 fL 05/27/2025 8:10 AM [facility] MCH 28.2 27.0 - 31.0 pg 05/27/2025 8:10 AM [facility] MCHC 34.2 32.0 - 36.0 g/dL 05/27/2025 8:10 AM [facility] MPV 8.2(L) 8.4 - 12.0 fL 05/27/2025 8:10 AM [facility] RDW-CV 13.9 11.5 - 14.5 % 05/27/2025 8:10 AM [facility] PLT 258 150 - 450 K/uL 05/27/2025 8:10 AM [facility] Neutrophils 58.7 % 05/27/2025 8:10 AM [facility] Lymphocytes 22.6 % 05/27/2025 8:10 AM [facility] Monocytes 13.7 % 05/27/2025 8:10 AM [facility] Eosinophils 4.0 % 05/27/2025 8:10 AM [facility] Basophils 0.8 % 05/27/2025 8:10 AM [facility] Imm Grans 0.2 % 05/27/2025 8:10 AM [facility] NRBC 0.0 <=0.0 /100 WBCs 05/27/2025 8:10 AM [facility] Absolute Neutrophils 2.78 1.92 - 7.60 K/uL 05/27/2025 8:10 AM [facility] Absolute Lymphocytes 1.07 0.72 - 4.10 K/uL 05/27/2025 8:10 AM [facility] Absolute Monocytes 0.65 0.16 - 1.10 K/uL 05/27/2025 8:10 AM [facility] Absolute Eosinophils 0.19 0.00 - 0.50 K/uL 05/27/2025 8:10 AM [facility] Absolute Basophils 0.04 0.00 - 0.15 K/uL 05/27/2025 8:10 AM [facility] Absolute Imm Grans 0.01 0.00 - 0.09 K/uL 05/27/2025 8:10 AM [facility] Absolute NRBC 0.00 <=0.00 K cells/uL 05/27/2025 8:10 AM [facility] Absolute Neutrophils 2.78 1.92 - 7.60 K/uL 05/27/2025 8:10 AM [facility] Comment:Automated cell count . Manual ANC may differ if performed. Diff Type Auto 05/27/2025 8:10 AM [facility] Blood (Blood) Venipuncture / Unknown 05/27/2025 7:59 AM EST 05/27/2025 8:05 AM EST us Bushra Woods MD LAB BLOOD BKR ORDERABLES George al Result [address] [address] * (ABNORMAL) Urinalysis with Reflex to Urine Culture (05/26/2025 12:20 PM EST) Only the most recent of2 resultswithin the time period is included. Color Yellow Yellow 05/26/2025 1:08 PM [facility] Clarity Clear Clear 05/26/2025 1:08 PM [facility] Glucose Negative Negative 05/26/2025 1:08 PM [facility] Bilirubin Urine Negative Negative 1:08 PM [facility] Ketone Urine Trace(A) Negative 05/26/2025 1:08 PM [facility] Specific [place] 1.020 1.001 - 1.035 05/26/2025 1:08 PM [facility] Blood 1+(A) Negative 05/26/2025 1:08 PM [facility] pH 5.5 5.0 - 8.0 05/26/2025 1:08 PM [facility] Protein Trace(A) Negative 05/26/2025 1:08 PM [facility] Nitrites Negative Negative 05/26/2025 1:08 PM [facility] Leukocyte Esterase 1+(A) Negative 05/26/2025 1:08 PM [facility] Urobilinogen Negative Negative 05/26/2025 1:08 PM [facility] Urine (Urine, Voided) Non-Blood Collection / Unknown 05/26/2025 12:20 PM EST 05/26/2025 12:39 PM EST Bushra Woods MD LAB URINE ORDERABLES Final R esult Performing Organization Address City/[facility]/ZIP Co de Phone Number [address] [address] * Urine Culture (05/26/2025 12:20 PM EST) Only the most recent of2 resultswithin the time period is included. Urine Culture/Test <10.000 CFU/ML 05/28/2025 7:53 AM [facility] Urine (Urine, Voided) Non-Blood Collection / Unknown 05/26/2025 12:20 PM EST 05/26/2025 1:22 PM EST Bushra Woods MD LAB MICROBIOLOGY CULTURE ORD ERABLES Final Result Performing Organization Address [facility] Co de Phone Number [address] [address] * (ABNORMAL) URINE SEDIMENT (05/26/2025 12:20 PM EST) WBC 10-20(A) 0 - 9 /hpf 05/26/2025 1:22 PM [facility] RBC 3-5(A) 0 - 2 /hpf 05/26/2025 1:22 PM [facility] Squamous Epithelial Cells 1-2(A) Not Present /hpf 05/26/2025 1:22 PM [facility] Mucus Present(A ) Not Present /hpf 05/26/2025 1:22 PM [facility] Bacteria 1+(A) Negative /hpf 05/26/2025 1:22 PM [facility] Granular Cast 1-2(A) Not Present /lpf 05/26/2025 1:22 PM [facility] Hyaline Cast 1-2 0 - 2 /lpf 05/26/2025 1:22 PM [facility] Urine (Urine, Voided) Non-Blood Collection / Unknown 05/26/2025 12:20 PM EST 05/26/2025 12:39 PM EST us Bushra Woods MD LAB URINE ORDERABLES Final R esult Performing Organization Address City/[facility]/ZIP Co de Phone Number [address] [address] * (ABNORMAL) Procalcitonin (05/26/2025 6:11 AM EST) Procalcitonin 5.20(H) 0.00 - 0.25 ng/mL 05/26/2025 7:40 AM EST [facility] Comment: <=0.25 ng/mL: Bacterial pneumonia is [...] ORDERABLES Fi nal Result Performing Organization Address City/[facility]/ZIP Co de Phone Number [address] [address] * (ABNORMAL) C-Reactive Protein (CRP) (05/26/2025 6:11 AM EST) C Reactive Protein 91.2(H) <10.0 mg/L 05/26/2025 7:24 AM EST [facility] Comment:NOTE: This reference range is for the evaluation of inflammation. Order CRP, High Sensitivity for cardiac risk status evaluation. Blood (Blood) Venipuncture / Unknown 05/26/2025 6:11 AM EST 05/26/2025 6:41 AM EST us Citlali Mcfarland MD LAB BLOOD BKR ORDERABLES Fi nal Result Performing Organization Address [facility]/ZIP Co de Phone Number [address] [address] * SARS-CoV-2, PCR (05/25/2025 10:28 PM EST) SARS-CoV-2 RNA PCR Not Detected Not Detected 05/25/2025 11:39 PM EST [facility] Swab (Nasopharynx, Bilateral) Non-Blood Collection / Unknown 05/25/2025 10:28 PM EST 05/25/2025 10:51 PM EST us Rohit Kauffman DO LAB GENERAL ORDERABLES Final R esult Performing Organization Address [facility] Co de Phone Number [address] [address] * Symptomatic Respiratory Virus Testing Panel (ED/IP) (05/25/2025 10:28 PM EST) Only the most recent of2 resultswithin the time period is included. Swab (Nasopharynx, Bilateral) Non-Blood Collection / Unknown 05/25/2025 10:28 PM EST 05/25/2025 10:51 PM EST Rohit Jamari DO LAB GENERAL ORDERABLES Final R esult Performing Organization Address [facility] Co de Phone Number [address] [address] * MRI BRAIN WITH AND WITHOUT CONTRAST (05/25/2025 9:37 PM EST) Anatomical Region Laterality Modality Head Magnetic Resonan ce 05/26/2025 3:19 AM EST Impressions 05/26/2025 3:22 AM EST 1. No acute infarct, mass lesion, hemorrhage or abnormal enhancement. Narrative 05/26/2025 3:22 AM EST MRI BRAIN WITH AND WITHOUT CONTRAST Referring clinician's provided indication for this examination in [facility]: * Mental status change, unknown cause TECHNIQUE: [...] clinician's provided indication for this examination in [facility]: *Mental status change, unknown cause TECHNIQUE: MRI [...] - 2.0 mmol/L 05/25/2025 4:00 AM EST [facility] Blood (Blood, Venous) Venipuncture / Unknown 05/25/2025 3:53 AM EST 05/25/2025 3:57 AM EST Result Dolly Mcfarland MD LAB BLOOD BKR ORDERABLES Fi nal Result Performing Organization Address [facility] Co de Phone Number [address] [address] * (ABNORMAL) PT-INR (05/25/2025 3:52 AM EST) Only the most recent of2 resultswithin the time period is included. PT 14.0(H) 10.0 - 13.0 sec 05/25/2025 4:16 AM EST [facility] INR 1.1 0.9 - 1.1 05/25/2025 4:16 AM EST [facility] Comment:Therapeutic Range 2. 0 - 3.5 Blood (Blood) Venipuncture / Unknown 05/25/2025 3:52 AM EST 05/25/2025 3:57 AM EST Result [facility] us Citlali Mcfarland MD LAB BLOOD BKR ORDERABLES Fi nal Result Performing Organization Address [facility] de Phone Number [address] [address] * (ABNORMAL) Phosphorus (05/25/2025 3:52 AM EST) Phosphorus 2.3(L) 2.5 - 4.5 mg/dL 05/25/2025 4:23 AM EST [facility] Blood (Blood) Venipuncture / Unknown 05/25/2025 3:52 AM EST 05/25/2025 3:57 AM EST Result Dolly Mcfarland MD LAB BLOOD BKR ORDERABLES Fi nal Result Performing Organization Address [facility] Co de Phone Number [address] [address] * CT ABDOMEN/PELVIS WITH CONTRAST (05/25/2025 2:17 [...] - 296 mOsm/kg water 05/25/2025 1:35 AM [facility] Blood (Blood) Venipuncture / Unknown 05/25/2025 12:57 AM EST 05/25/2025 1:02 AM EST us Shyam Shah DO LAB BLOOD BKR ORDERABLES Kaylin l Result Performing Organization Address City/[facility]/ZIP Co de Phone Number [address] [address] * (ABNORMAL) Troponin (05/25/2025 12:48 AM EST) Only the most recent of2 resultswithin the time period is included. Pathologist [facility] Troponin-T HS Gen5 31(H) 0 - 14 ng/L 05/25/2025 1:17 AM [facility] Blood (Blood) Venipuncture / Unknown 05/25/2025 12:48 AM EST 05/25/2025 12:53 AM EST us Citlali Mcfarland MD LAB BLOOD BKR ORDERABLES Fi nal Result Performing Organization Address City/[facility]/ZIP Co de Phone Number [address] [address] * Lab Add-On (05/25/2025 12:33 AM EST) Pathologist [facility] Specimen Date/Time 05/24/25 05/28/2025 7:59 PM [facility] Test Requested Urine Sodium, urine Creatinine, Urine Osmolality, Serum Osmolality 05/28/2025 7:59 PM [facility] Specimen Description 05/28/2025 7:59 PM [facility] Comments 05/28/2025 7:59 PM [facility] Was this request processed? Yes 05/28/2025 7:59 PM [facility] Other (Other) 05/25/2025 12: 33 AM EST 05/25/2025 12:33 AM EST us Shyam Shah DO LAB GENERAL ORDERABLES Final Result [address] [address] * XR Chest Portable (05/24/2025 11:11 PM EST) Anatomical Region Laterality Modality Chest Computed Radiogr aphy 05/25/2025 1:38 AM EST Impressions 05/25/2025 1:38 AM EST No acute abnormality. Narrative 05/25/2025 1:38 AM EST XR CHEST PORTABLE Referring clinician's provided indication for this examination in [facility]: Fever COMPARISON: None available. FINDINGS: Devices/Tubes/Lines: None. Lungs: No focal consolidation or pulmonary edema. Pleura: No pleural effusion or pneumothorax. Heart/Mediastinum: The heart and mediastinum are normal. Bones/Soft Tissues: Degenerative changes of the thoracic spine and bilateral shoulders. Procedure Note Amado Vaughn MBBS - 05/25/2025 XR CHEST PORTABLE Referring clinician's provided indication for this examination in [facility]:Fever COMPARISON: None available. FINDINGS: Devices/Tubes/Lines: None. Lungs: [...] Detected Not Detected 05/24/2025 11:59 PM EST [facility] Influenza A PCR Not Detected Not Detected 05/24/2025 11:59 PM EST [facility] Influenza B PCR Not Detected Not Detected 05/24/2025 11:59 PM EST [facility] Swab (Nasopharynx, Bilateral) Non-Blood Collection / Unknown 05/24/2025 11:09 PM EST 05/24/2025 11:34 PM EST us Erica Wiggins MD LAB GENERAL ORDERABLES Kaylin l Result Performing Organization Address City/State/[facility] Co de Phone Number [address] [address] * CT ANGIO HEAD WITH AND WITHOUT [...] of2 resultswithin the time period is included. [facility] Blood Culture/Test No growth at 5 days 05/29/2025 11:25 PM EST [facility] Blood (Blood) Venipuncture / Unknown 05/24/2025 10:37 PM EST 05/24/2025 10:40 PM EST Erica Wiggins MD LAB MICROBIOLOGY CULTURE OR DERABLES Final Result Performing Organization Address City/[facility]/ZIP Co de Phone Number [address] [address] * Ethanol, Blood (05/24/2025 10:34 PM EST) [facility] Ethanol <10 Negative; <11 mg/dL 05/24/2025 11:33 PM EST [facility] Blood (Blood) Venipuncture / Unknown 05/24/2025 10:34 PM EST 05/24/2025 10:41 PM EST Erica Wiggins MD LAB BLOOD BKR ORDERABLES Fi nal Result Performing Organization Address City/[facility]/ZIP Co de Phone Number [address] [address] * C-Reactive Protein (CRP), High Sensitivity (05/24/2025 10:34 PM EST) [facility] CRP, High Sensitivity 157.1 See comment mg/L 05/24/2025 11:44 PM EST [facility] Comment: Cardiovascular Risk: Low: <1.0 mg/L Average: 1.0-3.0 mg/L High: >3.0 mg/L Acute Inflammation: >10.0 mg/L Persistent elevations may represent non cardiovascular inflammation. Blood (Blood) Venipuncture / Unknown 05/24/2025 10:34 PM EST 05/24/2025 10:41 PM EST us Erica Wiggins MD LAB BLOOD BKR ORDERABLES Fi nal Result Performing Organization Address [facility]/ZIP Co de Phone Number [address] [address] * Type and Screen (ABO, Rh, Antibody Screen) (05/24/2025 10:34 PM EST) ABO/RH O Positive 05/24/2025 11:29 PM EST [facility] Antibody Screen Negative 05/24/2025 11:29 PM EST [facility] Sample Expires 05/27/2025,2 359 05/24/2025 11:29 PM EST [facility] Blood (Blood) Venipuncture / Unknown 05/24/2025 10:34 PM EST 05/24/2025 10:41 PM EST us Erica Wiggins MD LAB BLOOD BANK TEST ORDERAB LES Final Result Performing Organization Address [facility] Co de Phone Number [facility], [address] [place] [address] [phone] [address] * Thyroid Stimulating Hormone (TSH), with Reflex (05/24/2025 10:34 PM EST) TSH 2.64 0.40 - 5.90 uIU/mL 05/24/2025 11:33 PM EST [facility] Blood (Blood) Venipuncture / Unknown 05/24/2025 10:34 PM EST 05/24/2025 10:41 PM EST us Erica Wiggins MD LAB BLOOD BKR ORDERABLES Fi nal Result Performing Organization Address City/[facility]/ZIP Co de Phone Number [address] [address] * Hepatic Panel (LFTs) (05/24/2025 10:34 PM EST) AST 34 <40 U/L 05/24/2025 11:33 PM [facility] ALT 13 <50 U/L 05/24/2025 11:33 PM [facility] Alkaline Phosphatase 95 40 - 130 U/L 05/24/2025 11:33 PM [facility] Bilirubin, Total 0.4 0.0 - 1.2 mg/dL 05/24/2025 11:33 PM [facility] Bilirubin, Direct 0.2 0.0 - 0.3 mg/dL 05/24/2025 11:33 PM [facility] Total Protein 6.8 6.4 - 8.3 g/dL 05/24/2025 11:33 PM [facility] Albumin 3.6 3.5 - 5.2 g/dL 05/24/2025 11:33 PM [facility] Globulin 3.2 1.9 - 4.1 g/dL 05/24/2025 11:33 PM [facility] Blood (Blood) Venipuncture / Unknown 05/24/2025 10:34 PM EST 05/24/2025 10:41 PM EST us Erica Wiggins MD LAB BLOOD BKR ORDERABLES Fi nal Result Performing Organization Address City/[facility]/ZIP Co de Phone Number [address] [address] * (ABNORMAL) Erythrocyte Sedimentation Rate (ESR) (05/24/2025 10:34 PM EST) Pathologist [facility] ESR 25(H) 0 - 20 mm/h 05/24/2025 10:51 PM [facility] Blood (Blood) Venipuncture / Unknown 05/24/2025 10:34 PM EST 05/24/2025 10:41 PM EST us Erica Wiggins MD LAB BLOOD BKR ORDERABLES Fi nal Result Performing Organization Address City/[facility]/ZIP Co de Phone Number [address] [address] * (ABNORMAL) Hemoglobin A1c (05/24/2025 10:34 PM EST) Hemoglobin A1c 6.4(H) 4.3 - 5.6 % 05/24/2025 11:06 PM [facility] Calculated Mean Blood Glucose 137 mg/dL 05/24/2025 11:06 PM [facility] Comment:There is no [facility] normal range for the Estimated Average Glucose [...] LAB BLOOD BKR ORDERABLES Fi nal Result [address] [address] * Lipid Panel (05/24/2025 10:34 PM EST) Cholesterol 104 <200 mg/dL 05/24/2025 11:33 PM [facility] HDL 56 >=40 mg/dL 05/24/2025 11:33 PM [facility] Calculated LDL 35 <130 mg/dL 05/24/2025 11:33 PM [facility] Comment:LDL is calculated us ing the Pierre-NIH equation (KARMEN Cardiol. 2019November 16;5(5):540-548). Non-HDL Cholesterol 48 mg/dL 05/24/2025 11:33 PM [facility] Comment:Guidelines suggest a non-HDL cholesterol goal 30 mg/dL higher than the patient-specific LDL cholesterol goal. Cardiac Risk Ratio 1.9 0.0 - 5.0 2024 11:33 PM [facility] Triglycerides 57 <=150 mg/dL 05/24/2025 11:33 PM [facility] Blood (Blood) Venipuncture / Unknown 05/24/2025 10:34 PM EST 05/24/2025 10:41 PM EST Erica Wiggins MD LAB BLOOD BKR ORDERABLES Fi nal Result Performing Organization Address [facility] Co de Phone Number [address] [address] * (ABNORMAL) Venous Blood Gas (VBG) (05/24/2025 10:33 PM EST) pH, Venous 7.30(L) 7.31 - 7.41 05/24/2025 10:45 PM EST [facility] pCO2, Venous 49(H) 35 - 45 mm[Hg] 05/24/2025 10:45 PM [facility] pO2, Venous 36 35 - 40 mm[Hg] 05/24/2025 10:45 PM [facility] Base Excess -3.0 -3.0 - 3.0 mmol/L 05/24/2025 10:45 PM [facility] Bicarbonate (HCO3) 24 23 - 28 mmol/L 05/24/2025 10:45 PM [facility] Oxygen Saturation, Venous 61.4 60.0 - 80.0 % 05/24/2025 10:45 PM [facility] Blood (Blood, Venous) Venipuncture / Unknown 05/24/2025 10:33 PM EST 05/24/2025 10:41 PM EST Erica Wiggins MD LAB BLOOD BKR ORDERABLES Fi nal Result Performing Organization Address City/[facility]/ZIP Co de Phone Number [address] [address] * Toxicology Screen, Urine (05/24/2025 9:57 PM EST) Amphetamines, Urine Negative Negative 05/24/2025 10:16 PM EST [facility] Benzodiazepine , Urine Negative Negative 05/24/2025 10:16 PM EST [facility] Cocaine Metabolite, Urine Negative Negative 05/24/2025 10:16 PM EST [facility] Opiates, Urine Negative Negative 05/24/2025 10:16 PM EST [facility] Oxycodone, Urine Negative Negative 05/24/2025 10:16 PM EST [facility] Fentanyl, Urine Negative Negative 05/24/2025 10:16 PM EST [facility] Creatinine, Urine 69 20 - 300 mg/dL 05/24/2025 10:16 PM EST [facility] Urine (Urine, Voided) Non-Blood Collection / Unknown 05/24/2025 9:57 PM EST 05/24/2025 10:01 PM EST [facility] - 05/24/2025 10:16 PM EST This [...] URINE ORDERABLES Final Result Performing Organization Address [facility] Co de Phone Number [address] [address] * Sodium, Random Urine (05/24/2025 9:57 PM EST) Sodium, Urine 56 mmol/L 05/25/2025 1:24 AM EST [facility] Urine (Urine, Voided) Non-Blood Collection / Unknown 05/24/2025 9:57 PM EST 05/24/2025 10:01 PM EST [facility] - 05/25/2025 1:24 AM EST The reference interval(s) are unavailable for this specimen type. Comparison of this result with other laboratory results, such as the concentration in the blood, serum, or plasma, is recommended. The test result should be integrated into the clinical context for interpretation. us Shyam Shah DO LAB URINE ORDERABLES Final Re sult Performing Organization Address City/[facility]/ZIP Co de Phone Number [address] [address] * Osmolality, Random Urine (05/24/2025 9:57 PM EST) Osmolality, Urine 557 150 - 1,150 mOsm/kg water 05/25/2025 1:21 AM EST [facility] Urine (Urine, Voided) Non-Blood Collection / Unknown 05/24/2025 9:57 PM EST 05/24/2025 10:01 PM EST us Shyam G Shah DO LAB URINE ORDERABLES Final Re sult Performing Organization Address [facility]/ZIP Co de Phone Number [address] [address] * Creatinine, Random Urine (05/24/2025 9:57 PM EST) Pathologist [facility] Creatinine, Urine 72 mg/dL 05/25/2025 1:21 AM EST [facility] Urine (Urine, Voided) Non-Blood Collection / Unknown 05/24/2025 9:57 PM EST 05/24/2025 10:01 PM EST Narrative [facility] - 05/25/2025 1:21 AM EST The reference interval(s) are unavailable for this specimen type. Comparison of this result with other laboratory results, such as the concentration in the blood, serum, or plasma, is recommended. The test result should be integrated into the clinical context for interpretation. us Shyam Shah DO LAB URINE ORDERABLES Final Re sult Performing Organization Address [facility]/ZIP Co de Phone Number [address] [address] * ECG 12-LEAD (05/24/2025 9:46 PM EST) Ventricular Rate EKG/MIN 67 BPM [facility] Atrial Rate 67 BPM [facility] NE Interval 166 ms [facility] QRS Duration 150 ms [facility] QT Interval 408 ms [facility] QTC Interval 431 ms [facility] P Empire 39 degrees [facility] R Wave [place] -5 degrees [facility] T Wave [place] 16 degrees [facility] 05/24/2025 9:46 PM EST 05/25/2025 10:09 AM EST Narrative [facility] - 05/25/2025 10:09 AM EST Normal sinus rhythm Right bundle branch block Abnormal ECG No previous ECGs available Confirmed by Vicente Mohan ([id number]) on 05/25/2025 10:09:40 AM Erica Wiggins MD ECG ORDERABLES Final Resul t [facility] * 2nd Type (New Sample) (05/23/2025 8:22 PM EST) ABO/RH O Positive 05/24/2025 10:48 PM [facility] Blood (Blood) Venipuncture / Unknown 05/23/2025 8:22 PM EST 05/24/2025 10:22 PM EST Erica Wiggins MD LAB BLOOD BANK TEST ORDERAB LES Final Result Performing Organization Address City/[facility]/ZIP Co de Phone Number [facility], [address] [place] [phone] [address] * Urinalysis (05/23/2025 11:20 AM EST) Color Yellow Yellow 05/23/2025 5:29 PM [facility] Clarity Clear Clear 05/23/2025 5:29 PM [facility] Glucose Negative Negative 05/23/2025 5:29 PM [facility] Bilirubin Urine Negative Negative 5:29 PM [facility] Ketone Urine Negative Negative 05/23/2025 5:29 PM [facility] Specific [place] 1.025 1.001 - 1.035 05/23/2025 5:29 PM [facility] Blood Negative Negative 05/23/2025 5:29 PM [facility] pH 6.0 5.0 - 8.0 05/23/2025 5:29 PM EST [facility] Protein Negative Negative 05/23/2025 5:29 PM EST [facility] Nitrites Negative Negative 05/23/2025 5:29 PM EST [facility] Leukocyte Esterase Negative Negative 05/23/2025 5:29 PM EST [facility] Urobilinogen Negative Negative 05/23/2025 5:29 PM EST [facility] Urine (Urine, Voided) 05/23/2025 11:20 AM EST 05/23/2025 4:59 PM EST us Dee Dee Geronimo MD LAB URINE ORDERABLES Final Res ult [address] [address] from Last 3 Months Insurance [facility] MEDIC[facility] REPLACEMENT [place] [id number] [facility] [place] [id number] [facility] MED[facility] REPLACEMENT [facility] RE[facility] [employer] MEDICARE REPLACEMENT Advance Directives For more information, please contact: [phone] (9AM - 5PM [facility], Wednesday-Wednesday) Documents on File Type Date Recorded Patient Timber Faller Expl anation POLST 2025 4:24 PM Healthcare [...] Discussed with family at length power of attorney lawyer is in the room family has decided and patient had told them before the patient would not want to be left on the machine or intubated they are making the patient DNR DNI at this time. Care Teams Sand Conditioner Relationship Specialty Start Date End Date Abbi Saha FNP [address] [place] [address] PCP - General Nurse Practitioner 05/24/25 Additional Source Comments The information contained in this document represents components of the legal health record. It is not the complete legal health record.[facility]
--- OUTSIDE RECORDS SUMMARY | 2025-06-18 16:38 | XMS_ITS | Encounter Summary ---
Author Organization [facility] Address [address] [place] [phone] Phone Care Team Providers Care Iron Miner Name Role Phone Abbi Saha GEOTECHNICIAN Primary Care Provider [phone] Encounter Details Date Type Department Care Team (Latest Contact Info) Description 06/11/2025 Lab Requisition [facility] Main [address] [place] [address] Dee Dee Geronimo MD [address] [place] [phone] [email or web address] Syndrome of inappropriate secretion of antidiuretic hormone; [...] 1.7 - 2.6 mg/dL 06/11/2025 10:53 AM [facility] Blood (Blood) 06/11/2025 6:3 9 AM EST 06/11/2025 8:16 AM EST us Dee Dee Geronimo MD LAB BLOOD BKR ORDERABLES Final Result [address] [address] * (ABNORMAL) CBC (06/11/2025 6:39 AM EST) WBC 8.41 4.00 - 11.00 K/uL 06/11/2025 9:03 AM [facility] RBC 3.82(L) 4.50 - 5.90 M/uL 06/11/2025 9:03 AM [facility] Hemoglobin 10.6(L) 13.5 - 17.5 g/dL 06/11/2025 9:03 AM [facility] Hematocrit 32.6(L) 41.0 - 53.0 % 06/11/2025 9:03 AM [facility] MCV 85.3 80.0 - 100.0 fL 06/11/2025 9:03 AM [facility] MCH 27.7 27.0 - 31.0 pg 06/11/2025 9:03 AM [facility] MCHC 32.5 32.0 - 36.0 g/dL 06/11/2025 9:03 AM [facility] PLT 426 150 - 450 K/uL 06/11/2025 9:03 AM [facility] MPV 8.5 8.4 - 12.0 fL 06/11/2025 9:03 AM [facility] RDW-CV 15.9(H) 11.5 - 14.5 % 06/11/2025 9:03 AM [facility] Absolute NRBC 0.00 <=0.00 K cells/uL 06/11/2025 9:03 AM [facility] NRBC 0.0 <=0.0 /100 WBCs 06/11/2025 9:03 AM [facility] Blood (Blood) 06/11/2025 6:3 9 AM EST 06/11/2025 8:16 AM EST us Dee Dee Geronimo MD LAB BLOOD BKR ORDERABLES Final Result [facility] [address] [place] [address] * (ABNORMAL) Comprehensive Metabolic Panel (CMP) (06/11/2025 6:39 AM EST) Sodium 135(L) 136 - 145 mmol/L 06/11/2025 10:53 AM [facility] Potassium 4.4 3.4 - 5.1 mmol/L 06/11/2025 10:53 AM [facility] Chloride 101 98 - 107 mmol/L 06/11/2025 10:53 AM [facility] CO2 23 20 - 31 mmol/L 06/11/2025 10:53 AM [facility] Anion Gap 11 3 - 17 mmol/L 06/11/2025 10:53 AM [facility] BUN 15 6 - 23 mg/dL 06/11/2025 10:53 AM [facility] Creatinine 0.50(L) 0.60 - 1.30 mg/dL 06/11/2025 10:53 AM [facility] eGFR 104 >59 mL/min/1.7 3m2 06/11/2025 10:53 AM [facility] Comment:Estimated glomerular filtration rate calculated using the CKD-EPI refit equation. Glucose 96 70 - 99 mg/dL 06/11/2025 10:53 AM [facility] Calcium 9.4 8.5 - 10.5 mg/dL 06/11/2025 10:53 AM [facility] AST 14 <40 U/L 06/11/2025 10:53 AM [facility] ALT 10 <50 U/L 06/11/2025 10:53 AM [facility] Alkaline Phosphatase 122 40 - 130 U/L 06/11/2025 10:53 AM [facility] Bilirubin, Total 0.3 0.0 - 1.2 mg/dL 06/11/2025 10:53 AM [facility] Total Protein 6.7 6.4 - 8.3 g/dL 06/11/2025 10:53 AM [facility] Albumin 3.9 3.5 - 5.2 g/dL 06/11/2025 10:53 AM [facility] Globulin 2.8 1.9 - 4.1 g/dL 06/11/2025 10:53 AM [facility] Blood (Blood) 06/11/2025 6:3 9 AM EST 06/11/2025 8:16 AM EST Dee Dee Geronimo MD LAB BLOOD BKR ORDERABLES Final Result Performing Organization Address City/State/[facility] Co de Phone Number [address] [address] documented in this encounter Visit Diagnoses Diagnosis 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 It is not the complete legal health record.[facility]
--- OUTSIDE RECORDS SUMMARY | 2025-06-18 16:39 | XMS_ITS | Encounter Summary ---
Author Organization [employer] Address [address] [facility] [address]t [place] [address] Care Team Providers Care Automobile Parts Assembler Name Role Phone Sandy Torrez MD Primary Care Provider Unava ilable [facility] DAIRY EQUIPMENT REPAIRER Primary Care Provider [phone] Gogo Palacio DAIRY EQUIPMENT REPAIRER Primary Care Provider [phone] [facility] Primary Care Provider [phone] Encounter Details Date Type Department Care Team (Latest Contact Info) Description 06/23/2021 Abstract [facility] CONVERSIONS Dental, Provider, DDS Social [...] Description 06/22/2025 10:00 AM EST Office Visit [facility] MEDICINE [address] [place], [place] [phone] Rosanna Cohen DO [address] [place], [place] [phone] 09/10/2025 2:15 PM EST Office Visit [facility] ADULT DENTAL [address] [place], [place] [phone] Nusrat Lynch [address] [place] [address] documented as of this encounter Visit Diagnoses Not on filedocumented in this encounter Care Teams Automobile Parts Assembler Relationship Specialty Start Date End Date Sandy Torrez MD PCP - General Family Medicine 01/09/20 06/22/22 Maria AAbbi robb FNP [address] [place] [address] PCP - General Family Medicine 06/23/22 03/28/23 Gogo Palacio FNP [address] [place] [address] PCP - General Family Medicine 03/29/23 03/31/23 [place] FNP [address] [place] [address] PCP - General Family Medicine 04/01/23 [facility] 05/08/24 documented as of this encounter
--- OUTSIDE RECORDS SUMMARY | 2025-06-18 16:39 | XMS_ITS | Encounter Summary ---
Author Organization [employer] Address [address] [facility] 7t [place] [address] Care Team Providers Care Transfusion Aide Name Role Phone Sandy Torrez MD Primary Care Provider Unava ilable [facility] MOBILITY ARCHITECT Primary Care Provider [phone] Gogo Palacio MOBILITY ARCHITECT Primary Care Provider [phone] [facility] Primary Care Provider [phone] Encounter Details Date Type Department Care Team (Latest Contact Info) Description 07/17/2019 Abstract [facility] CONVERSIONS Dental, [...] 10:00 AM EST Office Visit [facility] MEDICINE [address] [place], [place] [phone] Rosanna Cohen DO [address] [place], [place] [phone] 09/10/2025 2:15 PM EST Office Visit [facility] ADULT DENTAL [address] [place], [place] [phone] Nusrat Lynch [address] [place] [address] documented as of this encounter Visit Diagnoses Not on filedocumented in this encounter Care Teams Transfusion Aide Relationship Specialty Start Date End Date Sandy Torrez MD PCP - General Family Medicine 01/09/20 06/22/22 Maria AAbbi robb FNP [address] [place] [address] PCP - General Family Medicine 06/23/22 03/28/23 Gogo Palacio FNP [address] [place] [address] PCP - General Family Medicine 03/29/23 03/31/23 Maria AAbbi robb FNP [address] [place] [address] PCP - General Family Medicine 04/01/23 [facility] 05/08/24 documented as of this encounter
--- OUTSIDE RECORDS SUMMARY | 2025-06-18 16:39 | XMS_ITS | Clinical Summary ---
Author Organization [facility] Address [address] [facility] [address] [place] [address] Phone Care Team Providers Care Hand Fretted Instrument Maker Name Role Phone [place] Primary Care Provider [phone] Allergies No known active allergies Medications Multiple [...] of the [facility] [address] [address] Rosanna Zamudio ARNP [address] [phone] Health Maintenance Due Date Last [...] topic Insurance [facility] Medicare Medicaid [place] Care Teams Hand Fretted Instrument Maker Relationship Specialty Start Date End Date [facility] [address] [place] [address] PCP - General 11/22/24
--- OUTSIDE RECORDS SUMMARY | 2025-06-18 16:39 | XMS_ITS | Encounter Summary ---
Author Organization [employer] Address [address] [facility] [address]t [place] [address] Care Team Providers Care Equipment Validation Specialist Name Role Phone [facility] Primary Care Provider [phone] Encounter Details Date Type Department Care Team ([facility] st Contact Info) Description 08/11/2023 Orders Only [facility] MEDICINE [address] [place], [place] [phone] [facility] [address] [place], [place] [phone] Sensorineural hearing loss (SNHL) of both ears; Lower urinary tract symptoms (LUTS); Gait instability; Type 2 diabetes mellitus with hyperglycemia, without long-term current use of insulin ([facility]); Hammertoes of both feet; Diminished pulses in [...] [facility] [address] [place] [address] Rosanna Cohen DO [address] [place], [place] [phone] 09/10/2025 2:15 PM EST Office Visit [facility] ADULT DENTAL [address] [place], [place] [phone] Nusrat Lynch [address] [place] [address] documented as of this encounter Procedures Procedure Name Priority Date/Time Associated Diagnosis Comments AMB REFERRAL TO ENT Routine 10/14/2023 Sensorineural hearing loss (SNHL) of both ears documented in this encounter Results * Referral to ENT (10/14/2023) [facility] GOLD CHARMER OUTPATIENT REFERRAL ORDERABLE S Final Result documented [...] documented as of this encounter Care Teams Equipment Validation Specialist Relationship Specialty Start Date End Date Abbi Saha FNP [address] [place] [address] PCP - General Family Medicine 04/01/23 Noemi Felicia 05/08/24 documented as of this encounter
--- OUTSIDE RECORDS SUMMARY | 2025-06-18 16:39 | XMS_ITS | Encounter Summary ---
Author Organization [employer] Address [address] [place] [address] Care Team Providers Care Truck Body Builder Name Role Phone Abbi Saha [facility] Primary Care Provider [phone] Encounter Details Date Type Department Care Team ([facility] st Contact Info) Description 06/15/2025 Orders Only GENERIC EXTERNAL DATA DEPARTMENT Provider, [...] Description 06/22/2025 10:00 AM EST Office Visit [facility] [address] [place] [address] Rosanna Cohen DO [address] [place] [address] 09/10/2025 2:15 PM EST Office Visit [facility] [address] [place] [address] Cris, Nusrat [address] [place] [address] documented as of this encounter Goals Goal [...] Care Plan Weekly blood pressure task No Sami Nissa campa Weekly blood pressure task Care Plan Weekly blood pressure task No Sami Nissa campa Patient has chronic kidney disease Care Plan Patient has chronic kidney disease No Sami campa Nissa Patient has chronic kidney disease Care Plan Patient has chronic kidney disease No Sami katheryn Nissa Weekly blood pressure task Care Plan Weekly blood pressure task No Candy Ramirez Weekly blood pressure task Care Plan Weekly blood pressure task No Candy Ramirez Patient has chronic kidney disease Care Plan Patient has chronic kidney disease No Candy Ramirez Patient has chronic kidney disease Care Plan Patient has chronic kidney disease No Guillermo Ramirezie Weekly blood pressure task Care Plan Weekly blood pressure task No Lupe Galindo Weekly blood pressure task Care Plan Weekly blood pressure task No Lupe Galindo Patient has chronic kidney disease Care Plan Patient has chronic kidney disease No Lupe Galindo Patient has chronic kidney disease Care Plan Patient has chronic kidney disease No Lupe Galindo documented as of this encounter Procedures Procedure Name Priority Date/Time Associated Diagnosis Comments CT ABDOMEN PELVIS WO CONTRAST Routine 06/15/2025 6:18 PM EST LACTIC ACID LAB USE ONLY Routine 06/15/2025 4:55 PM EST LACTIC ACID LAB USE ONLY Routine 06/15/2025 4:17 PM EST POTASSIUM Routine 06/15/2025 4:17 PM EST BASIC METABOLIC PANEL Routine 06/15/2025 4:17 PM EST LACTIC ACID Routine 06/15/2025 2:28 PM EST documented in this encounter Results * CT Abdomen Pelvis w/o Contrast (06/15/2025 6:18 PM EST) Anatomical Region Laterality Modality Body, Pelvis, Abdomen Computed T omography 06/15/2025 6:18 PM EST Narrative 06/15/2025 6:20 PM EST [address] [address] [address] Scan Report Signed Patient: Lei Drew MR#: [id number] : 1945 Acct:[id number] Age/Sex: 80 / M ADM Date: 06/15/25 [facility]: Humberto Willis MD Ordering Physician: Hakan Diehl MD Date of Service: 06/15/25 Procedure(s): CT abdomen pelvis wo IV con Accession Number(s): [id number] cc: Hakan Diehl MD; [facility] Report Number: [id number]: Total DLP = 759.00 mGy-cm Reason for Exam: increasing lactic acid, urinary retention, sepsis CLINICAL HISTORY: increasing lactic acid, urinary retention, sepsis CT abdomen and pelvis without contrast Comparison: CT/SR - CT ABDOMEN PELVIS W IV CON - 04/21/25 22:27 EDT Findings: Bibasilar dependent subsegmental atelectasis. Trace bilateral pleural effusions. Left perinephric stranding, left hydronephrosis and hydroureter. Right renal upper pole 0.1 cm nonobstructing nephrolith. The gallbladder, liver and spleen right kidney, pancreas and adrenals are within normal limits. No bowel obstruction, pneumoperitoneum, or pneumatosis. The prostate is within normal limits. The appendix is within normal limits. Pat catheter in the decompressed bladder. No acute fracture. Temd-lr-rbuysams osteopenia. 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 Calcified coronary atherosclerotic disease. IMPRESSION: 1. Left hydronephrosis and hydroureter with perinephric stranding; left pyelonephritis. 2. Right upper pole 0.1 cm nonobstructing nephrolith. 3. Bibasilar dependent subsegmental atelectasis. 4. Calcified coronary atherosclerotic disease. 5. Trace bilateral pleural effusions. This document has been electronically signed by: Ludin Montes De Oca MD on 06/15/2025 18:18:49 Dictated By: Ludin Montes De Oca MD Signed By: <Electronically signed by Ludin Montes De Oca MD in OV> 06/15/251818 DD/ 17 TD/TT: 06/15/251817 Meter Attendant: Procedure Note Donjean-paulter, Image - 06/15/[address] [address] [address] Scan Report Signed Patient: Scottie Drew#: [id number] : 6Acct:[id number] Age/Sex: 80 / MADM Date: 06/15/25 Loc: [facility]: Humberto Willis MD Ordering Physician: Hakan Diehl MD Date of Service: 06/15/25 Procedure(s): CT abdomen pelvis wo IV con Accession Number(s): [id number] cc: Hakan Diehl MD; [facility] Report Number: [id number]: Total DLP = 759.00 mGy-cm Reason for Exam: increasing lactic acid, urinary retention, sepsis CLINICAL HISTORY: increasing lactic acid, urinary retention, sepsis CT abdomen and pelvis without contrast Comparison: CT/SR - CT ABDOMEN PELVIS W IV CON - 04/21/25 22:27 EDT Findings: Bibasilar dependent subsegmental atelectasis. Trace bilateral pleural effusions. Left perinephric stranding, left hydronephrosis and hydroureter. Right renal upper pole 0.1 cm nonobstructing nephrolith. The gallbladder, liver and spleen right kidney, pancreas and adrenals are within normal limits. No bowel obstruction, pneumoperitoneum, or pneumatosis. The prostate is within normal limits. The appendix is within normal limits. Pat catheter in the decompressed bladder. No acute fracture. Ebyp-uw-uqkqrcgj osteopenia. 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 Calcified coronary atherosclerotic disease. IMPRESSION: 1. Left hydronephrosis and hydroureter with perinephric stranding; left pyelonephritis. 2. Right upper pole 0.1 cm nonobstructing nephrolith. 3. Bibasilar dependent subsegmental atelectasis. 4. Calcified coronary atherosclerotic disease. 5. Trace bilateral pleural effusions. This document has been electronically signed by: Ludin Montes De Oca MD on 06/15/2025 18:18:49 Dictated By: Ludin Montes De Oca MD Signed By: <Electronically signed by Ludin Montes De Oca MD in OV> 06/15/251818 DD/ 17 TD/TT: 06/15/251817 Meter Attendant: [facility] External Provider IMG CT PROCEDURES Final Result * (ABNORMAL) Lactic Acid (06/15/2025 4:55 PM EST) Lactic Acid 8.8(HH) 0.5 - 2.0 mmol/L [facility] Comment:Critical value for t est(s): lacta Results called to linn back by:iliana Person calling: [employer] Date:06/15/25 Time:17:23 06/15/2025 4:55 PM EST 06/15/2025 4:57 PM EST Generic External Data Provider LAB BLOOD ORDERAB LES Final Result Performing Organization Address [facility] Co de Phone Number [facility] [address] [place] [phone] * (ABNORMAL) Lactic Acid (06/15/2025 4:17 PM EST) Lactic Acid 7.1(HH) 0.5 - 2.0 mmol/L [facility] Comment:Critical value for t est(s):lacta Results called to andread back by:springl Person calling:[employer] Date:06/15/25 Time:17:00 06/15/2025 4:17 PM EST 06/15/2025 4:20 PM EST Generic External Data Provider LAB BLOOD ORDERAB LES Final Result Performing Organization Address [facility] Co de Phone Number [facility] [address] [place] [phone] * (ABNORMAL) Basic Metabolic Panel (06/15/2025 4:17 PM EST) Sodium 136 135 - 145 mmol/L [facility] Potassium 5.0 3.3 - 5.1 mmol/L [facility] Chloride 106 96 - 108 mmol/L [facility] Carbon Dioxide 13(L) 22 - 29 mmol/L [facility] Anion Gap 22(H) 12 - 20 [facility] Urea Nitrogen (BUN) 53(H) 9 - 16 mg/dL [facility] Creatinine, Serum 2.98(H) 0.5 - 1.4 mg/dL [facility] Creatinine Clr Calc Pharmacy 16.8 [facility] Comment:eGFR (calculated fro m the MDRD study equation) and eCrCl(calculated from the Cockcroft-Gault equation) are based ondifferent parameters and may not yield comparable results.If eCrCl result is absurd, please check patient'sheight/weight. Estimated Glomerular Filt Rate 20 [facility] Comment:Chronic Kidney Disea se: Estimated GFR < 60 mL/min/1.21y8Qgembw Kidney Disease: Estimated GFR < 15 mL/min/1.73m2 Glucose 125(H) 60 - 115 mg/dL [facility] Calcium 9.0 8.4 - 10.2 mg/dL [facility] 06/15/2025 4:17 PM EST 06/15/2025 4:20 PM EST us Generic External Data Provider LAB BLOOD ORDERAB LES Final Result Performing Organization Address City/[facility] Co de Phone Number [facility] [address] [place] [phone] * Potassium (06/15/2025 4:17 PM EST) Potassium 5.0 3.3 - 5.1 mmol/L [facility] 06/15/2025 4:17 PM EST 06/15/2025 4:20 PM EST us Generic External Data Provider LAB BLOOD ORDERAB LES Final Result Performing Organization Address [facility] de Phone Number [facility] [address] [place] [phone] [phone] * (ABNORMAL) Lactic Acid (06/15/2025 2:28 PM EST) Lactic Acid 4.9(HH) 0.5 - 2.0 mmol/L [facility] Comment:Critical value for t est(s): LACTA Results called to linn back by: ILIANA Person calling: ALKASAB Date:06/15/25 Time:15:10 06/15/2025 2:28 PM EST 06/15/2025 2:31 PM EST us Generic External Data Provider LAB BLOOD ORDERAB LES Final Result Performing Organization Address [facility] Co de Phone Number [facility] [address] [place] [address] [phone] documented in this encounter Visit Diagnoses [...] documented as of this encounter Care Teams Truck Body Builder Relationship Specialty Start Date End Date Abbi Saha FNP [address] [place] [address] PCP - General Family Medicine 04/01/23 Noemi GARCIA 05/08/24 documented as of this encounter
--- OUTSIDE RECORDS SUMMARY | 2025-06-18 16:39 | XMS_ITS | Encounter Summary ---
Author Organization [employer] Address [address] 7[address] [place] [address] Care Team Providers Care Graduate Research Assistant Name Role Phone Pyatt Abbi [facility] Primary Care Provider [phone] Reason for Visit * Reason Onset Date Comments Hospital Follow-up 06/11/2025 Encounter Details Date Type Department Care Team ([facility] Contact Info) Description 06/11/2025 Telephone [facility] [address] [place], [place] [phone] Pyatt [facility] [address] [place] [address] Hospital Follow-up Social History Tobacco Use Types [...] from pt requesting a HDF appt. Hospital: [facility] Date of admission: 05/28 Discharge date: 06/13 Diagnosed: hyponitremia *Send message to [facility] Coordinators Contact pt daughter Maya to schedule at [phone] documented in this encounter Plan of Treatment Upcoming Encounters Date Type Department Care Team (Late st Contact Info) Description 06/22/2025 10:00 AM EST Office Visit [facility] [address] [place] [address] Rosanna Coehn DO [address] [place] [address] 09/10/2025 2:15 PM EST Office Visit [facility] ADULT DENTAL [address] [place] [address] Nusrat Lynch [address] [place] [address] documented as of this encounter Goals Goal [...] documented as of this encounter Care Teams Graduate Research Assistant Relationship Specialty Start Date End Date Pyatt ROB Go [address] [place] [phone] PCP - General Family Medicine 04/01/23 Noemi Felicia 05/08/24 documented as of this encounter
--- OUTSIDE RECORDS SUMMARY | 2025-06-18 16:39 | XMS_ITS ---
Signed By: <Electronically signed by Vinayak Salguero MD in OV> 04/21/252328 DD/ 27 TD/TT: 04/21/252327 Hand Sewer: Procedure Note Sairater, Image - 04/21/[address] [place] [address] [address] Scan Report Signed Patient: Scottie Drew#: [id number] : 6Acct:[id number] Age/Sex: 79 / MADM Date: 04/21/25 Loc: HO.ED Attending Dr: Ordering Physician: Buffy Unger MD Date of Service: 04/21/25 Procedure(s): CT abdomen pelvis w IV con Accession Number(s): [id number] cc: Buffy Unger MD; [facility] Report Number: [id number]: Total DLP = 0.00 mGy-cm Reason for [...] in OV> 04/21/252328 DD/ 27 TD/TT: 04/21/252327 Hand Sewer: [facility] External Provider IMG CT PROCEDURES Edited Result - Final * CTA Chest PE Protocal (04/21/2025 11:27 PM EDT) Anatomical Region Laterality Modality Body, Chest Computed Tomogra phy 04/21/2025 11:2 7 PM EDT Narrative 04/21/2025 11:28 PM EDT [address] [address] [address] Scan Report Signed Patient: Lei Drew MR#: [id number] : 1945 Acct:[id number] Age/Sex: 79 / M ADM Date: 04/21/25 Loc: HO.ED Attending Dr: Ordering Physician: Buffy Unger MD Date of Service: 04/21/25 Procedure(s): CT angio chest PE protocol Accession Number(s): [id number] cc: Buffy Unger MD; [facility] Report Number: [id number]: Total DLP = 0.00 mGy-cm Reason for [...] in OV> 04/21/252327 DD/ 26 TD/TT: 04/21/252326 Hand Sewer: Procedure Note Donotuseinterpreter, Image - 04/21/[address] [address] [address] Scan Report Signed Patient: Jacqui DrewR#: [id number] : 1945cct:[id number] Age/Sex: 79 / MADM Date: 04/21/25 Loc: HO.ED Attending Dr: Ordering Physician: Buffy Unger MD Date of Service: 04/21/25 Procedure(s): CT angio chest PE protocol Accession Number(s): [id number] cc: Buffy Unger MD; [facility] Report Number: [id number]: Total DLP = 0.00 mGy-cm Reason for [...] in OV> 04/21/252327 DD/ 26 TD/TT: 04/21/252326 Hand Sewer: [facility] External Provider IMG CT PROCEDURES Edited Result - Final * (ABNORMAL) Urinalysis w/reflex microscopic (04/04/2025 12:15 PM EDT) Color Urine Yellow [facility] Appearance Urine Clear [facility] PH 5.5 5.0 - 9.0 [facility] Glucose Urine UA >=1000(A) Negative mg/dL [facility] Urine Blood Negative Negative [facility] Specific Mission - Urine >=1.030(H) 1.005 - 1.025 [facility] Urine Protein Negative Neg-Trace mg/dL [facility] Urine Ketones Trace Negative mg/dL [facility] Nitrite Urine Negative Negative [facility] Leukocyte Esterase Urine Negative Negative [facility] 04/04/2025 12:1 5 PM EDT 04/04/2025 12:19 PM EDT Narrative [facility] - 04/04/2025 12:25 PM EDT Urine, Catheterized us Generic External Data Provider LAB URINE ORDERAB LES Final Result Performing Organization Address City/State/[facility] Co de Phone Number [facility] [address] [place] [phone] * CT Cervical Spine w/o Contrast (04/04/2025 11:35 AM EDT) Anatomical Region Laterality Modality Spine, C-spine Computed Tomogra phy 04/04/2025 11:3 5 AM EDT Narrative 04/04/2025 12:06 PM EDT [address] [address] [address] Scan Report Signed Patient: Lei Drew MR#: [id number] : 1945 Acct:[id number] Age/Sex: 79 / M ADM Date: 04/04/25 Loc: HO.ED Attending Dr: Ordering Physician: Crescencio Clark MD Date of Service: 04/04/25 Procedure(s): CT cervical spine wo IV con Accession Number(s): [id number] cc: Crescencio Clark MD; [facility] Report Number: [id number]: Total DLP = 268.00 mGy-cm Reason for [...] 04/04/25 1203 DD/ 1135 TD/TT: 04/04/25 1148 Hand Sewer: Procedure Note Donotuseinterpreter, Image - 04/04/[address] [address] [address] Scan Report Signed Patient: Scottie Drew#: [id number] : 6Acct:[id number] Age/Sex: 79 / MADM Date: 04/04/25 Loc: HO.ED Attending Dr: Ordering Physician: Crescencio Clark MD Date of Service: 04/04/25 Procedure(s): CT cervical spine wo IV con Accession Number(s): [id number] cc: Crescencio Clark MD; [facility] Report Number: [id number]: Total DLP = 268.00 mGy-cm Reason for [...] 04/04/25 1203 DD/ 1135 TD/TT: 04/04/25 1148 Hand Sewer: [facility] External Provider IMG CT PROCEDURES Edited Result - Final * CT Head w/o Contrast (04/04/2025 11:35 AM EDT) Anatomical Region Laterality Modality Head, Neck Computed Tomogra phy 04/04/2025 11:3 5 AM EDT Narrative 04/04/2025 12:11 PM EDT [address] [address] [address] Scan Report Signed Patient: Lei Drew MR#: [id number] : 1945 Acct:[id number] Age/Sex: 79 / M ADM Date: 04/04/25 Loc: HO.ED Attending Dr: Ordering Physician: Crescencio Clark MD Date of Service: 04/04/25 Procedure(s): CT head/brain wo IV con Accession Number(s): [id number] cc: Crescencio Clark MD; [facility] Report Number: [id number]: Total DLP = 704.00 mGy-cm Reason for [...] 04/04/25 1209 DD/ 1135 TD/TT: 04/04/25 1148 Hand Sewer: Procedure Note Donotuseinterpreter, Image - 04/04/[address] [place] [address] [address] Scan Report Signed Patient: Scottie Drew#: [id number] : 6Acct:[id number] Age/Sex: 79 / MADM Date: 04/04/25 Loc: HO.ED Attending Dr: Ordering Physician: Crescencio Clark MD Date of Service: 04/04/25 Procedure(s): CT head/brain wo IV con Accession Number(s): [id number] cc: Crescencio Clark MD; [facility] Report Number: [id number]: Total DLP = 704.00 mGy-cm Reason for [...] 04/04/25 1209 DD/ 1135 TD/TT: 04/04/25 1148 Hand Sewer: [facility] External Provider IMG CT PROCEDURES Edited Result - Final * XR Chest 2 Views (04/04/2025 11:24 AM EDT) Anatomical Region Laterality Modality Chest Radiographic Brianna ging 04/04/2025 11:2 4 AM EDT Narrative 04/04/2025 11:31 AM EDT [address] [address] XRay Report Signed Patient: Lei Drew MR#: [id number] : 1945 Acct:[id number] Age/Sex: 79 / M ADM Date: 04/04/25 Loc: .ED Attending Dr: Ordering Physician: Patricia Kerr Date of Service: 04/04/25 Procedure(s): XR chest 2V Accession Number(s): [id number] cc: Patricia Kerr; [facility] Reason for Exam: syncope EXAMINATION: XR [...] Mosqueda MD Signed By: <Electronically signed by Jrezy Mosqueda MD in OV> 04/04/25 1129 DD/ 1124 TD/TT: 04/04/25 1124 Hand Sewer: Procedure Note Donotuseinterpreter, Image - 04/04/[address] [address] XRay Report Signed Patient: Jacqui DrewR#: [id number] : 1945cct:[id number] Age/Sex: 79 / MADM Date: 04/04/25 Loc: .ED Attending Dr: Ordering Physician: Patricia Kerr Date of Service: 04/04/25 Procedure(s): XR chest 2V Accession Number(s): [id number] cc: Patricia Kerr; [facility] Reason for Exam: syncope EXAMINATION: XR [...] 04/04/25 1129 DD/ 1124 TD/TT: 04/04/25 1124 Hand Sewer: [facility] External Provider IMG XR PROCEDURES Edited Result - Final * Albumin, Random Urine W/Creatinine (05/03/2023 8:36 AM EDT) Creatinine, Urine 54.13 mg/dL [facility] Microalbumin Urine 8.0 mg/L [facility] Microalbum Creatinine Ratio Ur 14.7 <30 ug/mg cr [facility] Comment:Albumin/Creatinine R atio Reference Ranges: Normal: < 30 ug/mg creatinine Microalbuminuria: 30 - 300 ug/mg creatinineClinical Albuminuria: > 300 ug/mg creatinine Urine 05/03/2023 8:36 AM EDT 05/03/2023 11:07 AM EDT [facility] LAB URINE ORDERABLES Final Re sult [facility] [address] [place] [phone] * Lipid Panel, Standard (05/03/2023 8:36 AM EDT) Triglycerides 83 <150 mg/dL [facility] Comment:Desirable Triglyceri de: less than 150 mg/dLBorderline High Triglyceride 150-199 mg/dLHigh Triglyceride: 200-499 mg/dLVery High Triglyceride: greater than or equal to 5OO mg/dL Cholesterol 136 <200 mg/dL [facility] Comment:Desirable Cholestero l: less than 200 mg/dLBorderline High Cholesterol: 200-239 mg/dLHigh Cholesterol: greater than 239 mg/dL LDL Cholesterol Calculated 54 <100 mg/dL [facility] Comment:Desirable LDL: less than 100 mg/dLNear Optimal/Above Optimal LDL: 110- 129 mg/dLBorderline High LDL: 130-159 mg/dLHigh LDL: 160-189 mg/dLVery High LDL: greater than or equal to 190 mg/dL HDL Cholesterol 66 >40 mg/dL [facility] Comment:Desirable HDL: great er than 40 mg/dL Note: This HDL assay may give artificially low results in patients with liver disease. Blood Venous blood specimen / Unknown 05/03/2023 8:36 AM EDT 05/03/2023 11:13 AM EDT [facility] LAB BLOOD ORDERABLES Final Re sult [facility] [address] [place] [address] [phone] * Hepatitis C Antibody with Reflex to HCV, RNA, Quantitative, Real-Time PCR (09/11/2022 3:09 PM EST) Hepatitis C Antibody NON-REACT VAHID NON-REACT VAHID [employer] Index <0.02 <1.00 [employer] Comment: HCV antibody was non-reactive. There is no laboratory evidence of HCV infection. In most cases, no further action is required. However, if recent HCV exposure is suspected, a test for HCV RNA (test code 12278) is suggested. For additional information please refer to http://education.[employer]/faq/JUU45c0 (This link is being provided for informational/ educational purposes only.) Blood Venous blood specimen / Unknown 09/11/2022 3:09 PM EST 09/11/2022 3:09 PM EST Narrative [facility] - 09/14/2022 1:32 PM EST FASTING:NO FASTING: NO [facility] RN HOSPICE LAB BLOOD ORDERABLES Final Re sult [facility] [address] [facility] [facility], [place] [address] [employer] [facility] [employer] [address], ([address]) [place] [address] from Last 3 Months or Most Recently [...] 06/12/2025 Patient has chronic kidney disease 06/12/2025 Weekly blood pressure task 06/18/2025 Weekly blood pressure task 06/18/2025 Patient has chronic kidney disease 06/18/2025 Patient has chronic kidney disease 06/18/2025 Insurance [facility] - [facility] HMO SNP Care Teams Hr Associate Relationship Specialty Start Date End Date Abbi Saha FNP [address] [place] [phone] PCP - General Family Medicine 04/01/23 [facility]08[facility]
--- OUTSIDE RECORDS SUMMARY | 2025-06-18 16:39 | XMS_ITS | Encounter Summary ---
Author Organization [employer] Address [address] [facility] 7[address] [place] [address] Care Team Providers Care Manual Qa Tester Name Role Phone Wilcox [facility] Primary Care Provider [phone] Reason for Visit * Reason Comments Med Refill Encounter Details Date Type Department Care Team ([facility] Contact Info) Description 07/16/2024 Refill [facility] [address] [place], [place] [phone] Wilcox [facility] [address] [place] [address] Type 2 diabetes mellitus with hyperglycemia, without long-term current use of insulin ([facility]) Social History Tobacco Use Types [...] Description 06/22/2025 10:00 AM EST Office Visit [facility] [address] [place] [address] Rosanna Cohen DO [address] [place] [address] 09/10/2025 2:15 PM EST Office Visit [facility] ADULT DENT[facility] [address] [place] [address] Nusrat Lynch [address] [place] [address] documented as of this encounter Visit Diagnoses Diagnosis Type 2 diabetes mellitus with hyperglycemia, without long-term current use of insulin (HCC) documented in this encounter Additional Health Concerns Assessment Noted Time PHQ-9 Depression Total Score: 0 07/05/20 24 11:25 AM EST documented as of this encounter Care Teams Manual Qa Tester Relationship Specialty Start Date End Date Abbi Saha FNP [address] [place] [phone] PCP - General Family Medicine 04/01/23 Noemi GARCIA 05/08/24 documented as of this encounter
--- OUTSIDE RECORDS SUMMARY | 2025-06-18 16:39 | XMS_ITS | Clinical Summary ---
Author Organization [facility] Address [address] [place] [address] Phone Care Team Providers Care High Speed Warper Tender Name Role Phone Unavailable Primary Care Provider [...] patient's age to complete this topic Insurance [facility]
[2025-06-19] MEDS: HYDROmorphone HCl/NS 10 MG/50 ML PIGGYBACK 4 MG IV ×2 (05:02→17:21)
--- NOTE | 2025-06-19 07:53 | P.PNIM_ITS ---
Subjective Subjective Date of Service: 06/19/25 Interval History: Appears comfortable Family at bedside Review of Systems Review of Systems: Yes Unobtainable due to mental condition and Unobtainable due to mental status Physical Exam Exam: Exam: Appears comfortable Not in distress Vital Signs: Vital Signs: BMI result Body Mass Index 19.1 Objective Data Active Medications Acetaminophen (Acetaminophen 325 Mg Tablet) 650 mg PO Q4H PRN PRN Reason: Fever >/= 100, Pain, mild 1-3 Artificial Tears (Artificial Tears 15 Ml Drops) 2 drop EYE-BOTH Q4H PRN PRN Reason: Dry Eyes Diazepam (Diazepam 10 Mg/2 Ml Cartridge) 2.5 mg IVPUSH Q4H PRN PRN Reason: Anxiety Docusate Sodium (Docusate Sodium 100 Mg Capsule) 100 mg PO BEDTIME [facility] Last Admin: 06/18/25 20:08 Dose: Not Given Documented By: BENITO Non-Admin Reason: too sleepy Hydromorphone HCl (Dilaudid) 10 mg in 50 mls @ 0 mls/hr IV .Q0M [facility]; Protocol Last Admin: 06/19/25 05:02 Dose: 0.8 mg/hr, 4 mls/hr Documented By: BENITO Ondansetron HCl (Ondansetron Odt 4 Mg Tab.Rapdis) 4 mg TRANSLINGU Q8H PRN PRN Reason: Nausea and Vomiting Scopolamine (Scopolamine 1.5 Mg Patch.Td.3) 1.5 mg TRANSDERMA Q72H [facility] Last Admin: 06/18/25 13:51 Dose: 1.5 mg Documented By: JACQUELYN Assessment and Plan (1) 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 He is not a candidate for further disease-modifying therapy (c hemotherapy, dialysis) due to poor functional status, refractory infections, and limited physiologic reserve. His overall prognosis is extremely poor, with high short-term mortality risk and significant morbidity, justifying transition to comfort measures only (EXTRUSION PRESS OPERATOR) and hospice care. During this hospitalization on 06/15/2025 he presents with worsening weakness somnolence and was noted to have bacteremia and after careful discussion with the family, patient was transitioned to EXTRUSION PRESS OPERATOR on 06/16/2025 with the entire family both the healthcare proxy he is and he is being readmitted under [facility] hospice on 06/18/2025. Plan: EXTRUSION PRESS OPERATOR orders with Valium and Dilaudid drip per EXTRUSION PRESS OPERATOR orders and prn Scopolamine patch Causes of would be- Advanced SCLL , Multiorgan failure due to recurrent bactremia , Adult failure to thrive Quality Stroke Does the patient have a stroke diagnosis?: No VTE Prior VTE?: No VTE Risk Level:: Medical - moderate - high VTE Device Contraindication: Treatment Not Indicated VTE Drug Contraindication: Treatment Not Indicated
--- NOTE | 2025-06-19 11:58 | MHC.CM.PN ---
ELECTRIOPNIC MEDICAL RECORD REVIEWED ALONG WITH [facility] NOTE. ADMITT UNDER [facility] FOR SMALL CELL LUNG CANCE. PER DOCUMENTAION BY GIP ASSOCIATE ACCOUNT MANAGER PATIENT CONTINUES ON PAIN PUMP WITH DILAUDID WITH REPORTED GOOD EFFECT. CASE MANAGEMENT TO CONTINUE TO FOLLOW
[2025-06-20] MEDS: HYDROmorphone HCl/NS 10 MG/50 ML PIGGYBACK 6.5 MG IV ×3 (02:45→18:32)
--- NOTE | 2025-06-20 07:16 | HO.PM.IMPN ---
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) Physical Exam Exam: Exam: General: AOx0, appears comfortable Resp: dec breath sounds bl CVS: S1, S2, RRR Vital Signs: Vital Signs: BMI result Body Mass Index 19.1 Objective Data Active Medications Acetaminophen (Acetaminophen 325 Mg Tablet) 650 mg PO Q4H PRN PRN Reason: Fever >/= 100, Pain, mild 1-3 Artificial Tears (Artificial Tears 15 Ml Drops) 2 drop EYE-BOTH Q4H PRN PRN Reason: Dry Eyes Diazepam (Diazepam 10 Mg/2 Ml Cartridge) 2.5 mg IVPUSH Q4H PRN PRN Reason: Anxiety Docusate Sodium (Docusate Sodium 100 Mg Capsule) 100 mg PO BEDTIME [facility] Last Admin: 06/19/25 20:10 Dose: Not Given Documented By: KE Non-Admin Reason: JEWEL INSERTER Hydromorphone HCl (Dilaudid) 10 mg in 50 mls @ 0 mls/hr IV .Q0M [facility]; Protocol Last Admin: 06/20/25 02:45 Dose: 1.3 mg/hr, 6.5 mls/hr Documented By: KE Ondansetron HCl (Ondansetron Odt 4 Mg Tab.Rapdis) 4 mg TRANSLINGU Q8H PRN PRN Reason: Nausea and Vomiting Scopolamine (Scopolamine 1.5 Mg Patch.Td.3) 1.5 mg TRANSDERMA Q72H [facility] Last Admin: 06/18/25 13:51 Dose: 1.5 mg Documented By: JACQUELYN Assessment and Plan (1) 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 He is not a candidate for further disease-modifying therapy (chemotherapy, dialysis) due to poor functional status, refractory infections, and limited physiologic reserve. His overall prognosis is extremely poor, with high short-term mortality risk and significant morbidity, justifying transition to comfort measures only (JEWEL INSERTER) and hospice care. During this hospitalization on 06/15/2025 he presents with worsening weakness somnolence and was noted to have bacteremia and after careful discussion with the family, patient was transitioned to JEWEL INSERTER on 06/16/2025 with the entire family both the healthcare proxy he is and he is being readmitted under [facility] hospice on 06/18/2025. Plan: JEWEL INSERTER orders with Valium and Dilaudid drip per JEWEL INSERTER orders and prn Scopolamine patch Causes of would be- Advanced SCLL , Multiorgan failure due to recurrent bactremia , Adult failure to thrive Quality Stroke Does the patient have a stroke diagnosis?: No VTE Prior VTE?: No VTE Risk Level:: Medical - moderate - high VTE Device Contraindication: Treatment Not Indicated VTE Drug Contraindication: Treatment Not Indicated
--- NOTE | 2025-06-20 15:51 | MHC.CM.PN ---
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
[2025-06-21] MEDS: HYDROmorphone HCl/NS 10 MG/50 ML PIGGYBACK 6.5 MG IV ×3 (02:07→18:04)
[2025-06-21] MEDS: diazePAM 10 MG/2 ML CARTRIDGE 2.5 MG IVPUSH (09:43)
--- NOTE | 2025-06-21 10:38 | MHC.CM.PN ---
Per [facility] hospice nurse, Patient will likely pass soon. Canceled referral to [facility] for Hospice in a facility.
--- NOTE | 2025-06-21 15:46 | HO.PM.IMPN ---
Subjective Subjective Date of Service: 06/21/25 Interval History: seen and examined this morning follow up, pt ABSORPTION PLANT OPERATOR HELPER pt not awake or alert, appears comfortable; family at bedside Review of Systems unable to obtain ROS due to above Physical Exam Vital Signs: Vital Signs: BMI result Body Mass Index 19.1 Const: Other: appears comfortable Objective Data Active Medications Acetaminophen (Acetaminophen 325 Mg Tablet) 650 mg PO Q4H PRN PRN Reason: Fever >/= 100, Pain, mild 1-3 Artificial Tears (Artificial Tears 15 Ml Drops) 2 drop EYE-BOTH Q4H PRN PRN Reason: Dry Eyes Diazepam (Diazepam 10 Mg/2 Ml Cartridge) 2.5 mg IVPUSH Q4H PRN PRN Reason: Anxiety Last Admin: 06/21/25 09:43 Dose: 2.5 mg Documented By: ANDREA Docusate Sodium (Docusate Sodium 100 Mg Capsule) 100 mg PO BEDTIME [facility] Last Admin: 06/20/25 20:23 Dose: Not Given Documented By: LUIS Non-Admin Reason: bung sewer pt, sleeping Hydromorphone HCl (Dilaudid) 10 mg in 50 mls @ 0 mls/hr IV .Q0M [facility]; Protocol Last Admin: 06/21/25 10:17 Dose: 1.3 mg/hr, 6.5 mls/hr Documented By: ANDREA Ondansetron HCl (Ondansetron Odt 4 Mg Tab.Rapdis) 4 mg TRANSLINGU Q8H PRN PRN Reason: Nausea and Vomiting Scopolamine (Scopolamine 1.5 Mg Patch.Td.3) 1.5 mg TRANSDERMA Q72H [facility] Last Admin: 06/21/25 10:19 Dose: 1.5 mg Documented By: ANDREA Assessment and Plan (1) Gram-negative bacteremia: Status: Acute (2) Severe sepsis: Status: Acute (3) 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 He is not a candidate for further disease-modifying therapy (chemotherapy, dialysis) due to poor functional status, refractory infections, and limited physiologic reserve. His overall prognosis is extremely poor, with high short-term mortality risk and significant morbidity, justifying transition to comfort measures only (ABSORPTION PLANT OPERATOR HELPER) and hospice care. During this hospitalization on 06/15/2025 he presents with worsening weakness somnolence and was noted to have bacteremia and after careful discussion with the family, patient was transitioned to ABSORPTION PLANT OPERATOR HELPER on 06/16/2025 with the entire family both the healthcare proxy he is and he is being readmitted under [facility] hospice on 06/18/2025. Plan: [facility] hosp[facility] ABSORPTION PLANT OPERATOR HELPER orders with Valium and Dilaudid drip per ABSORPTION PLANT OPERATOR HELPER orders and prn Scopolamine patch Causes of would be- Advanced SCLL , Multiorgan failure due to recurrent bactremia , Adult failure to thrive Quality Stroke Does the patient have a stroke diagnosis?: No VTE Prior VTE?: No VTE Risk Level:: Medical - moderate - high VTE Device Contraindication: Treatment Not Indicated VTE Drug Contraindication: Treatment Not Indicated
[2025-06-21] MEDS: Atropine Sulfate 1 % Ophth Sol 2 ML BOTTLE 2 DROP SUBLINGUAL (18:27)
[2025-06-22] MEDS: HYDROmorphone HCl/NS 10 MG/50 ML PIGGYBACK 6.5 MG IV (01:11)
[2025-06-22 03:21] VITALS: RESP 12
--- NOTE | 2025-06-22 08:54 | PC.NURSE ---
Diuladid bag returned to pharmacy director since it didn't fit in the returning bin.
--- NOTE | 2025-06-22 09:17 | P.DN_ITS ---
Discharge Sum: Prov Provider Primary care physician: Unknown Physician Consults: 06/18/25 11:54 Consult to Case Management Routine Comment: Consult to Cheese Tester Routine Comment: Consult to Hospice Routine Comment: Pronouncing clinician: Clara Mart Discharge Sum: Diag PCOD Cause of : Sepsis due to gram-negative urinary tract infection Contributing Factors (1) Severe sepsis: (2) Gram-negative bacteremia: (3) Non-small cell carcinoma of lung: Discharge Sum: Summary Date and Time Date of admission: 06/18/25 12:37 Summary Details: From H&P on the day of admission Patient is a 80-year-old male, with a background 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 The patient has unfortunately altered, and represents a poor historian. History was obtained from collateral sources by bedside and from ED provider's note. As per reports, the family was unable to fully manage the patient's care after being transferred home from halfway facility (discharged 06/14). Family unfortunately believes the patient is unsafe and can not care for herself at home. The patient endorses experiencing pain in the suprapubic region and the bilateral iliac regions. He endorses feeling weaker than normal, specifically noting discomfort in the lower extremities. Patient also endorses he has had a cough that has resolved few days ago, that was productive of sputum. He is unable to elaborate further. Furthermore the patient reports experiencing some BRBPR; small quantities, occurring after bowel motion, and only after a few wipes - no clots, melena, hematochezia. ER COURSE In the emergency room, it was noted the patient had a fever 100.6 F, tachycardic 104 and normotensive. Patient spikes another fever to 101.4. Heart rate increased to 120-130 beats per minute, remained normotensive and not hypoxic. Blood work performed, revealing hyper leukocytosis 25.3, with neutrophilic shift 89%, hemoglobin 13.1, platelets of 382 INR 1.3 Chemistry reveals sodium 134, potassium 6.1, chloride 105, carbon dioxide 15, anion gap of 20. Creatinine 3.06 with BUN of 53. EGFR 20. Baseline creatinine 0.6 Of note, lactic acid elevated 3.9. Sepsis alert was activated by the emergency room. Goals of care discussion was held with the provider in emergency room and family members, opting to proceed with intervention, confirming DNR/DNI status 30 cc/kilogram bolus administered, blood cultures obtained, septic workup completed Bloods redrawn 16:00, revealing improvement in potassium to 5.0, creatinine stabilization at 2.98, BUN 53 Lactic acid continued to increase 4.9 to 7.1 to 8.8. Urinalysis consistent with UTI. CT abdomen and pelvis ordered by emergency room for further evaluation. Patient was initially admitted for severe sepsis due to probable pyelonephritis, urine cultures grew Proteus, blood cultures grew Proteus, he was noted to have NEELIMA, hypoglycemia. He was initially started on antibiotics. The day after admission there was a family meeting and it was decided that they wanted to transition to hospice care. He was transitioned to comfort care and then re- admitted under [facility] hospice. All nonessential meds were stopped and he was continued on comfort meds. He paced away comfortably on 06/22/2025 at 8:41am. discharge diagnosis sepsis due to UTI and bacteremia NEELIMA on CKD3 hyperkalemia small cell lung cancer Additional Data Confirmation of as documented by pronouncing clinician: no pulse, no respirations, no heart sounds and pupils fixed and dilated Attending physician: RENNY Burgos
--- NOTE | 2025-06-22 10:25 | MHC.CM.PN ---
Patient this morning. Hospice notified.
== END 2025-06-22 13:56 | disposition expired | DRG 951 ==
PROVIDERS: Admitting Provider Student in an Organized Health Care Education/Training Program; Visit Provider Physician Assistant Medical
DX: Z51.5 Encounter for palliative care (principal); A41.9 Sepsis, unspecified organism; R65.20 Severe sepsis without septic shock; C34.90 Malignant neoplasm of unspecified part of unspecified bronchus or lung; N12 Tubulo-interstitial nephritis, not specified as acute or chronic; B96.4 Proteus (mirabilis) (morganii) as the cause of diseases classified elsewhere; G20.C Parkinsonism, unspecified; N18.31 Chronic kidney disease, stage 3a; E11.22 Type 2 diabetes mellitus with diabetic chronic kidney disease; N40.0 Benign prostatic hyperplasia without lower urinary tract symptoms; D63.0 Anemia in neoplastic disease; Z79.899 Other long term (current) drug therapy
CPT/HCPCS: J1171; J3360

== ENCOUNTER → 2025-06-18 | Outpatient (BNV) | payer OTHER, SELFPAY | PROVIDERS: Admitting Provider Student in an Organized Health Care Education/Training Program; Visit Provider Student in an Organized Health Care Education/Training Program | DX: C34.90 Malignant neoplasm of unspecified part of unspecified bronchus or lung (principal) | CPT/HCPCS: 99223; 99231; 99233 ==